=== PATIENT | female | born 1950 | race Caucasian/White ===

== ENCOUNTER 2022-02-11 00:34 | Outpatient (RCR) | payer MEDICARE, SELFPAY ==
--- OUTSIDE RECORDS SUMMARY | 2022-02-11 01:06 | XMS_ITS | Encounter Summary ---
:1950 Author Organization [facility] Address [address] [place] [address] Care Team Providers Name Role Phone Berkley Madrigal MD Primary Care Provider Unavailable Encounter Details Date Type Department Care Team Description 12/31/2021 Lab Requisition [facility] Blayne Shrestha for other Pathology & MD Sabino general examination Laboratory Medicine [address] [place] [address] [address] [place] [address] [place], [place] [id number] Social History Tobacco Use Types Packs/Day Years Used Date Never Assessed Sex Assigned at Date Recorded Not on file documented as of this encounter Plan of Treatment Not on filedocumented as of this encounter Procedures Procedure Name Priority Date/Time Associated Diagnosis Comme nts SURGICAL PATHOLOGY Today 12/30/2021 18:08 Resul ts for this EDT procedure are i n the results section. documented in this encounter Results SURGICAL PATHOLOGY (12/30/2021 18:08 EDT) Note to Patient The following [facility] MEDICAL pathology results have CENTER been interpreted by your LABORATORY pathologist and may be SERVICES available to you before your health provider has had the opportunity to review them. Please allow time for your provider to receive these results and explore management options, if applicable. Final Diagnosis A. 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 See comment and synoptic report. CENTER - Pathologic stage (AJCC 8th ed): pT3, pN2a LABORATORY - Margins: SERVICES - Tumor is present in soft tissue and vascular spaces at vascular pedicle margin. - Tumor close (2-3 mm) to radial margin, but negative . - Remainder of margins are negative for tumor. - Extensive lymphovascular invasion is present. - Two tumor soft tissue deposits are identified. - Loss of MLH1 and PMS2 and retained expression of MSH2 and MSH6 proteins, by immunohistochemistry. - Metastatic carcinoma involving five of twenty-two ly mph nodes (5/22). - Appendix with fibrous obliteration. 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 See comment. Diagnosis Comment Hydrotherapist slides of hay s case were reviewed at the gastrointestinal/liver intradepartmental consultation conference (AA, ). This case was reviewed in consultation by Dr. Keron Srinivasan who has expertise [facility] in hematopathology, and he donal cox with the diagnosis of small lymphocytic lymphoma. CENTER LABORATORY SERVICES RESULTS OF IMMUNOHISTOCHEMIC AL STAINING: Loss of MLH1 and PMS2 and retained expression of MSH2 and MSH6 proteins TISSUE SUBMITTED: Formalin f ixed paraffin embedded tissue block labelled ([id number]), block (A6) TUMOR TYPE: Invasive adenocarcinoma INTERPRETATION: The majority of cancers with loss of MLH1/PMS2 protein expression are associated with somatic changes rather than an inherited mutation (Craft syndrome). However, if additional testing t o rule out Craft syndrome is warranted in this individual, additional molecular testing (specifically MLH1 Promoter Methylation) can be ordered upon obtaining preauthorization or an advanced beneficiary notice. ANTIBODY (CLONE) (BLOCK): RESULT MLH1 (M1, [place]) (block A6): Loss of expression in t he tumor PMS2 (A16-4, [place]) (block A6): Loss of expression i n the tumor MSH2 ([id number], [place]) (block A6): Retained express ion in tumor MSH6 (SP93, [place]) (block A6): Retained expression i n tumor Internal controls: Adequate Immunoperoxidase stains were performed on this case to further characterize the lymphoid lesion. ANTIBODY(CLONE)(BLOCK):RESULT CD3 (SP7, [employer]) (A22): Highlights backgro und T cells CD20 (L26, [place]) (A22): Highlights neoplastic B isaac ls CD5 (SP19, [place]) (A22): P ositive in neoplastic B cells; Highlights background T cells LEF-1 (EP310, [employer]) ( A22): Positive in neoplastic B cells; Highlights background T cells Cyclin D1(SP4-R, [place]) (A22): Negative CD10 (SP67, [place]) (A22): Positive in germinal cente r BCL-2 Oncoprotein (124, [place]) (A22): Negative in germinal center; Highlights background lymphocytes NOTE: One or more of the re agents used in immunoperoxidase testing in this case may not have been cleared or approved by the U.S. Food and Drug Administration (FDA). The FDA has determined that such cl earance or approval is not n ecessary. These tests are used for clinical purposes. They should not be regarded as investigational or for research. These reagents' performance characteristics have been de termined by [facility] and/or by the referring laboratory. The positive and negative controls worked appropriately. If immunoperoxidase staining has been performed on alcoh ol fixed cytology specimens, which has not been fully validated, the assays should be interpreted with caution and correlated with clinical data. This laboratory is certified under the Clinical Laborato ry Improvement Amendments of 1988 (CLIA-88) as qualified to perform high complexity clinical laboratory testing. Attestation There was significant [facility] MEDICAL Electr onically resident/fellow CENTER signed by Ruddy gonzalez, involvement in the LABORATORY [place] [facility] on diagnostic evaluation of SERVICES 12/20 at 1222 this case. By the signature below, the attending physician certifies that they have personally conducted a gross and/or microscopic examination of the described specimens and rendered or confirmed the above diagnosis. Synoptic COLON AND RECTUM: Resection, Including Transanal Disk Excision of Rectal Neoplasms [facility] COLON AND RECTUM: RESECTION - All Specimens CENTER 8th Edition - Protocol posted: 07/18/2018 LABORATORY SERVICES SPECIMEN ?? Procedure: ?Right hemicolectomy TUMOR ?? Tumor Site: ?Right (ascending) colon ?? Histologic Type: ?Adenocarcinoma ? Histologic Type Comments: ?Mucinous feature s are present. ?? Histologic Grade: ?G2: Moderately differentiat ed ?? Tumor Size: ?Greatest dimension (Centimeters): 4.2 cm ?? Tumor Deposits: ?Present ? Number of Deposits: ?2 ?? Tumor Extension: ?Tu mor invades through the muscularis propria into pericolorectal tissue ?? Macroscopic Tumor Perforation: ?Not identified ?? Lymphovascular Invasion: ?Present ? : ?Small vessel lymphovascular invasion ?? Perineural Invasion: ?Not identified ?? Tumor Budding: ?Numb er of tumor buds in one ? hotspot? field (total number in area = 0.785 mm2): 1 ? : ?Low score (0-4) ?? Type of Polyp in Which Invasive Carcinoma Arose: ?None identified ?? Treatment Effect: ?No known presurgical therap y MARGINS ?? Margins: ? Proximal Margin: ?Uninvolved by invasive ca rcinoma ? Distal Margin: ?Uninvolved by invasive carc inoma ? Radial or Mesenteric Margin: ?Uninvolved by invasive carcinoma ? Distance of Tumor from Margin: ?2-3 mm ? Other Margin: ?Soft tissue at vascular pedi tammi ? Margin Status: ?Involved by invasive carcin tammie LYMPH NODES Number of Lymph Nodes Involved: ?5 Number of Lymph Nodes Examined: ?22 PATHOLOGIC STAGE CLASSIFICATION (pTNM, AJCC 8th Editio n) Primary Tumor (pT): ?pT3 Regional Lymph Nodes (pN): ?pN2a ADDITIONAL FINDINGS Additional Pathologic Findings: ?Adenoma(s) Clinical History Right colon lesion [facility] Gross Description A. [facility] Received in formalin chris d with proper patient identification (initials B, E) and right colon is a previously opened right colon comprised of terminal ileum (4.0 cm in length by 2.0 cm in diameter) CENTER , cecum and ascending colon (16.5 cm in length 6.5 cm in diameter), with 2 stapled margins. An appendix is present (4.5 cm in length by 0.5 cm in diameter). LABORATORY SERVICES The serosa is smooth and pin k-storey. No obvious perforations are identified. There is a 4.2 x 3.5 x 0.5 cm well-circumscribed, pink-storey mass located within the ascending colon, 1.2 cm from the ileocecal v alve. The mass is 5.0 cm fro m the proximal margin and 10.0 cm from the distal margin. Sectioning reveals the mass does not grossly appears to invade through the colon wall into the surrounding adipose t issue and is 5.0 cm from the nearest radial resection margin. The mass is 0.5 cm from the nearest serosal surface (inked blue). The mucosa around the distal end of the mass is dark kwon, consistent with previous tattoo. Located 1.0 cm distal the ma ss is a 0.5 x 0.5 x 0.3 cm pink-storey polyp. Polyp is confined to the mucosa, and does not involve the underlying colonic wall or surrounding adipose tissue. The remaining colo pennie mucosa is pink-storey with the usual folds. The wall thickness averages 0.2 cm. No additional lesions are identified. Sectioning through the surrounding adipose tissue reveals multiple pink-storey to kwon -white lymph nodes (ranging from 0.2 cm to 4.6 cm in greatest dimension). Multiple lymph nodes have a granular, kwon-white, grossly positive cut surface. The serosa of the appendix i s smooth and pink-storey with a large amount of attached mesoappendix. No perforations are identified. Sectioning reveals storey- white to yellow cut surfaces. The lumen averages 0. 1 cm in diameter. The wall t hickness averages 0.2 cm. No masses or lesions are identified. BLOCK BOYCE A1- proximal margin, en face A2- distal margin, en face A3- appendix A4- radial margin with adjacent positive lymph node, p erpendicular A5- vascular pedicle containing positive lymph node, e n face A6- mass in relation to serosa A7-A8- mass at deepest point of invasion, with adjacent positive lymph nodes, bisected (orange indicates junction of tissues) A9-A10- additional sections of mass in relation to surrounding unremarkable mucosa A11- entire polyp distal to mass A12- ileocecal valve A13-A14- additional section of grossly positive lymph node from vascular pedicle, bisected A15-A16- additional section of grossly positive lymph node from radial margin, bisected A17- multiple lymph nodes, submitted intact A18- personnel representative grossly positive lymph node A19- personnel representative grossly positive lymph node A20- 1 lymph node, bisected A21- 4 lymph nodes, submitted intact A22- 1 lymph node, bisected A23- 1 lymph node, bisected A24- 4 lymph nodes, submitted intact A25- 4 lymph nodes, submitted intact A26- 2 lymph nodes, submitted intact A27- 2 lymph nodes, submitted intact FACUNDO MONROY(ASCP) 01/03/2022 14:39 Resident/Fellow: Servando Barragan MD [facility] SERVICES Performing Lab [facility] Scanned Images [facility] Specimen Tissue - Entire sigmoid colon (body stru cture) Performing Organization Address City/State/ZIP Code Phon e Number [facility] [address] [place] [address] SERVICES documented in this encounter Visit Diagnoses Diagnosis Encounter for other general examination documented in this encounter Care Teams Clay Digger Relationship Specialty Start Date End Date Berkley Madrigal MD PCP - General 01/16/09 documented as of this encounter
--- OUTSIDE RECORDS SUMMARY | 2022-02-11 01:06 | XMS_ITS | Encounter Summary ---
:1950 Author Organization [facility] Address [address] [place] [address] Care Team Providers Name Role Phone Berkley Madrigal MD Primary Care Provider Unavailable Encounter Details Date Type Department Care Team Description 11/26/2021 Lab Requisition [facility] Outr Resulting Lab, Pathology & Laboratory Provider [facility] [address], [place] [id number] Social History Tobacco Use Types Packs/Day Years Used Date Never Assessed Sex Assigned at Date Recorded Not on file documented as of this encounter Plan of Treatment Not on filedocumented as of this encounter Procedures Procedure Name Priority Date/Time Associated Comments Diagnosis SPEP, INCLUDES Today 11/26/2021 11:20 Results f or this QUANTITATION OF EDT procedure ar e in MONOCLONAL SPIKE the results PERFORMABLE section. SPEP, INCLUDES Routine 11/26/2021 11:20 Results f or this QUANTITATION OF EDT procedure ar e in MONOCLONAL SPIKE the results section. PROTEIN, TOTAL Today 11/26/2021 11:20 EDT HAPTOGLOBIN Routine 11/26/2021 11:20 Results for this EDT procedure are i n the results section. documented in this encounter Results (ABNORMAL) SPEP, INCLUDES QUANTITATION OF MONOCLONAL SPIKE PERFORMABLE (11/26/2021 11:20 EDT) Albumin % 65.2 55.8 - 66.1 % [facility]OR[facility] SERVICES Albumin g/dL 4.0 3.6 - 5.2 g/dL [facility] LABOR[facility] SERVICES Alpha-1 % 4.8 2.9 - 4.9 % [facility] LABOR[facility] SERVICES Alpha-1 g/dL 0.30 0.15 - 0.40 [facility] g/dL LABORATORY SERVICES Alpha-2 % 12.1 (H) 7.1 - 11.8 % [facility] LABORATORY SERVICES Alpha-2 g/dL 0.80 0.50 - 1.00 [facility] g/dL LABORATORY SERVICES Beta % 11.3 8.4 - 13.1 % [facility] LABORATORY SERVICES Beta g/dL 0.70 0.60 - 1.20 [facility] g/dL LABORATORY SERVICES Gamma % 6.6 (L) 11.1 - 18.8 % [facility] LABORATORY SERVICES Gamma g/dL 0.40 (L) 0.60 - 1.60 [facility] g/dL LABORATORY SERVICES SPEP Comment No apparent [facility] monoclonal protein LABORATORY SERVICES seen on serum electrophoresisComm ent: See scanned/supplementa ry report. Total Protein 6.2 (L) 6.3 - 8.2 g/dL [facility] LABORAT[facility] SERVICES Specimen Blood - Venous blood (substance) Narrative This result has an attachment that is no t available. Performing Organization Address City/State/ZIP Code Phon e Number [facility] [address] [place] [address] SERVICES PROTEIN, TOTAL (11/26/2021 11:20 EDT) Specimen Blood - Venous blood (substance) Performing Organization Address City/State/ZIP Code Phon e Number [facility] [address] [place] [address] SERVICES HAPTOGLOBIN (11/26/2021 11:20 EDT) Pathologist Sig nature Haptoglobin 121 32 - 197 mg/dL [facility] LABORAT ORY SERVICES Specimen Blood - Venous blood (substance) Performing Organization Address City/State/ZIP Code Phon e Number [facility] [address] [place] [address] SERVICES documented in this encounter Visit Diagnoses Not on filedocumented in this encounter Care Teams Insurance Agent Relationship Specialty Start Date End Date Berkley Madrigal MD PCP - General 01/16/09 documented as of this encounter
--- OUTSIDE RECORDS SUMMARY | 2022-02-11 01:06 | XMS_ITS | Encounter Summary ---
:1950 Author Organization [facility] Address [address] [place] [id number] Care Team Providers Name Role Phone Berkley Madrigal MD Primary Care Provider Unavailable Encounter Details Date Type Department Care Team Description 05/11/2019 Lab Requisition [facility] Unknown, Provider, Pathology & Laboratory [facility] [address] [place] [address] [place] [address] Social History Tobacco Use Types Packs/Day Years Used Date Never Assessed Sex Assigned at Date Recorded Not on file documented as of this encounter Plan of Treatment Not on filedocumented as of this encounter Procedures Procedure Name Priority Date/Time Associated Diagnosis Comme nts FECAL BACTERIAL Routine 05/11/2019 12:17 Results for this PATHOGENS BY PCR EST procedure a re in the results section. OVA/PARASITE EXAM Routine 05/11/2019 12:17 Result s for this EST procedure are i n the results section. documented in this encounter Results OVA/PARASITE EXAM (05/11/2019 12:17 EST) Pathologist Sig nature Parasite No ova and parasites [facility] seen. LABORATORY SERVICES Specimen Feces - Feces Narrative [facility] LABORATORY SERVICES - 05/13/2019 13:44 EST (If Cryptosporidium, Cyclospora, or Micr osporidium are suspected, specific tests must be requested.) Single negative specimen does not rule out the possibility of a parasitic infection. Performing Organization Address City/State/ZIP Code Phon e Number [facility] LABORATORY [address] [place] [address] SERVICES FECAL BACTERIAL PATHOGENS BY PCR (05/11/2019 12:17 EST) Pathologist Sig nature Salmonella PCR Negative Negative [facility] LABORATORY SERVICES Shigella/Enteroinvasive Negative Negative [facility] R E. coli LABORATORY SERVICES HN LAB CAMPYLOBACTER PCR Negative Negative [facility] ER LABORATORY SERVICES Shiga Toxin PCR Negative Negative [facility] LABORATORY SERVICES Specimen Feces - Feces Performing Organization Address City/State/ZIP Code Phon e Number [facility] LABORATORY [address] [place] [address] SERVICES documented in this encounter Visit Diagnoses Not on filedocumented in this encounter Care Teams Graphite Grinder Relationship Specialty Start Date End Date Berkley Madrigal MD PCP - General 01/16/09 documented as of this encounter
--- OUTSIDE RECORDS SUMMARY | 2022-02-11 01:06 | XMS_ITS | Encounter Summary ---
:1950 Author Organization [facility] Address [address] [place] [address] Care Team Providers Name Role Phone Berkley Madrigal MD Primary Care Provider Unavailable Encounter Details Date Type Department Care Team Description 07/18/2019 Lab Requisition [facility] Unknown, Provider, Pathology & Laboratory [facility] [address] [place] [address] [place] [address] Social History Tobacco Use Types Packs/Day Years Used Date Never Assessed Sex Assigned at Date Recorded Not on file documented as of this encounter Plan of Treatment Not on filedocumented as of this encounter Procedures Procedure Name Priority Date/Time Associated Diagnosis Comme nts FECAL BACTERIAL Routine 07/18/2019 12:27 Results for this PATHOGENS BY PCR EST procedure a re in the results section. OVA/PARASITE EXAM Routine 07/18/2019 12:27 Result s for this EST procedure are i n the results section. documented in this encounter Results FECAL BACTERIAL PATHOGENS BY PCR (07/18/2019 12:27 EST) Pathologist Sig nature Salmonella PCR Negative Negative [facility] LABORATORY SERVICES Shigella/Enteroinvasive Negative Negative [facility] E. coli LAB[facility]ORY SERVICES HN LAB CAMPYLOBACTER PCR Negative Negative [facility] ER LABORATORY SERVICES Shiga Toxin PCR Negative Negative [facility] LABORATORY SERVICES Specimen Feces - Specimen from rectum (specimen) Performing Organization Address City/State/ZIP Code Phon e Number [facility] [address] [place] [address] SERVICES OVA/PARASITE EXAM (07/18/2019 12:27 EST) Pathologist Sig nature Parasite No ova and parasites [facility] seen. LABORATORY SERVICES Specimen Feces - Specimen from rectum (specimen) Narrative [facility] LABORATORY SERVICES - 07/19/2019 11:23 EST (If Cryptosporidium, Cyclospora, or Micr osporidium are suspected, specific tests must be requested.) Single negative specimen does not rule out the possibility of a parasitic infection. Performing Organization Address City/State/ZIP Code Phon e Number [facility] [address] [place] [address] SERVICES documented in this encounter Visit Diagnoses Not on filedocumented in this encounter Care Teams Personnel Generalist Manager Relationship Specialty Start Date End Date Berkley Madrigal MD PCP - General 01/16/09 documented as of this encounter
--- OUTSIDE RECORDS SUMMARY | 2022-02-11 01:06 | XMS_ITS | Encounter Summary ---
:[address] [facility] Address [address] [place] [address] Care Team Providers Name Role Phone Berkley Madrigal MD Primary Care Provider Unavailable Encounter Details Date Type Department Care Team Description 05/17/2021 Lab Requisition [facility] Outr Resulting Lab, Pathology & Laboratory Provider [facility] [address] [place] [id number] Social History Tobacco Use Types Packs/Day Years Used Date Never Assessed Sex Assigned at Date Recorded Not on file documented as of this encounter Plan of Treatment Not on filedocumented as of this encounter Procedures Procedure Name Priority Date/Time Associated Diagnosis Comme nts FECAL BACTERIAL Routine 05/17/2021 10:53 Results for this PATHOGENS BY PCR EST procedure a re in the results section. OVA/PARASITE EXAM Routine 05/17/2021 10:53 Result s for this EST procedure are i n the results section. documented in this encounter Results FECAL BACTERIAL PATHOGENS BY PCR (05/17/2021 10:53 EST) Pathologist Sig nature Salmonella PCR Negative Negative [facility] LABORATORY SERVICES Shigella/Enteroinvasive Negative Negative [facility] SERVICES HN LAB CAMPYLOBACTER PCR Negative Negative [facility] ER LABORATORY SERVICES Shiga Toxin PCR Negative Negative [facility] LABORATORY SERVICES Specimen Feces - Specimen from rectum (specimen) Performing Organization Address City/State/ZIP Code Phon e Number [facility] LAB[facility] [address] [place] [address] SERVICES OVA/PARASITE EXAM (05/17/2021 10:53 EST) Pathologist Sig nature Parasite No ova and parasites [facility] seen. LABORATORY SERVICES Specimen Feces - Specimen from rectum (specimen) Narrative [facility] LABORATORY SERVICES - 05/19/2021 13:38 EST (If Cryptosporidium, Cyclospora, or Micr osporidium are suspected, specific tests must be requested.) Single negative specimen does not rule out the possibility of a parasitic infection. Performing Organization Address City/State/ZIP Code Phon e Number [facility] [address] [place] [address] SERVICES documented in this encounter Visit Diagnoses Not on filedocumented in this encounter Care Teams Wood Miller Relationship Specialty Start Date End Date Berkley Madrigal MD PCP - General 01/16/09 documented as of this encounter
--- OUTSIDE RECORDS SUMMARY | 2022-02-11 01:06 | XMS_ITS | Encounter Summary ---
:1950 Author Organization [facility] Address [address] [place] [address] Care Team Providers Name Role Phone Berkley Madrigal MD Primary Care Provider Unavailable Encounter Details Date Type Department Care Team Description 12/20/2021 Lab Requisition [facility] Blayne Shrestha for other Pathology & MD Sabino general examination Laboratory Medicine [address] [place] [address] [address] [place] [address] [place], [place] [id number] Social History Tobacco Use Types Packs/Day Years Used Date Never Assessed Sex Assigned at Date Recorded Not on file documented as of this encounter Plan of Treatment Not on filedocumented as of this encounter Procedures Procedure Name Priority Date/Time Associated Diagnosis Comme nts SURGICAL PATHOLOGY Today 12/20/2021 12:01 Resul ts for this EDT procedure are i n the results section. documented in this encounter Results SURGICAL PATHOLOGY (12/20/2021 12:01 EDT) Note to Patient The following [facility] MEDICAL pathology results have CENTER been interpreted by LABORATORY your pathologist and SERVICES may be available to you before your health provider has had the opportunity to review them. Please allow time for your provider to receive these results and explore management options, if applicable. Final Diagnosis A. COLON, RIGHT, LESION, BIOPSY: [facility] EDICAL - At least intramucosal colo rectal adenocarcinoma, suspicious for underlying invasion. CENTER - Deeper sections x3 examined. LABORATORY - See comment. SERVICES Diagnosis Comment The superficial nature of th e biopsy precludes further assessment for depth of invasion. [facility] slides of thi s case were reviewed at the gastrointestinal/liver intradepartmental consultation conference. (RW) LABORATORY SERVICES Attestation There was significant [facility] MEDICAL Electr onically resident/fellow CENTER signed by Ab yair Cedillo involvement in the LABORATORY Valdez Ruby on diagnostic evaluation SERVICES 12/24/19 22 at 0902 of this case. By the signature below, the attending physician certifies that they have personally conducted a gross and/or microscopic examination of the described specimens and rendered or confirmed the above diagnosis. Clinical History Abnormal imaging; right [facility] colon lesion CENTER LABORATORY SERVICES Gross Description A. [facility] MEDICAL Received in formalin chris d with proper patient identification (initials B, E) and A. Right colon lesion Bx are 4 storey-white tissues (0.3 x 0.2 x 0.1 cm to 0.1 x 0.1 by less than 0.1 cm). Entirely lorenzo CENTER bmitted in A1. Please note the smaller tissues m ay not survive processing. LABORATORY SERVICES CELESTE WARREN 12/21/2021 8:36 Resident/Fellow: Shazia Dailey MD [facility] LABORATORY SERVICES Performing Lab [facility] LABORATORY SERVICES Scanned Images [facility] LABORATORY SERVICES Specimen Tissue - Entire right colon (body struct ure) Performing Organization Address City/State/ZIP Code Phon e Number [facility] LABOR[facility]ORY [address] [place] [address] SERVICES documented in this encounter Visit Diagnoses Diagnosis Encounter for other general examination documented in this encounter Care Teams Industrial Waste Inspector Relationship Specialty Start Date End Date Berkley Madrigal MD PCP - General 01/16/09 documented as of this encounter
--- OUTSIDE RECORDS SUMMARY | 2022-02-11 01:06 | XMS_ITS | Encounter Summary ---
:1950 Author Organization [facility] Address [address] [place] [address] Care Team Providers Name Role Phone Berkley Madrigal MD Primary Care Provider Unavailable Encounter Details Date Type Department Care Team Description 06/28/2021 Lab Requisition [facility] Blayne Shrestha for other Pathology & MD Sabino general examination Laboratory Medicine [address] [place] [address] [address] [place] [address] [place], [place] [id number] Social History Tobacco Use Types Packs/Day Years Used Date Never Assessed Sex Assigned at Date Recorded Not on file documented as of this encounter Plan of Treatment Not on filedocumented as of this encounter Procedures Procedure Name Priority Date/Time Associated Diagnosis Comme nts SURGICAL PATHOLOGY Today 06/28/2021 14:24 Resul ts for this EST procedure are i n the results section. documented in this encounter Results SURGICAL PATHOLOGY (06/28/2021 14:24 EST) Note to Patient The following [facility] MEDICAL pathology results CENTER have been interpreted LABORATORY by your pathologist SERVICES and may be available to you before your health provider has had the opportunity to review them. Please allow time for your provider to receive these results and explore management options, if applicable. Final Diagnosis A. STOMACH, ANTRUM, BIOPSY: [facility] - Antral-type mucosa with no significant diagnostic ab normality. CENTER LABORATORY B. COLON, RIGHT, RANDOM, BIOPSY: SERVICES - Colonic mucosa with no significant pathologic abnorm ality. C. COLON, LEFT, RANDOM, BIOPSY: - Colonic mucosa with no significant pathologic abnorm ality. Attestation By the signature [facility] MEDICAL Electronica lly below, the attending CENTER signed by Toni physician certifies LABORATORY Sánchez Kellogg MD on that they have 1) SERVICES 06/29/2021 a t 1758 personally conducted a gross and/or microscopic examination of the described specimen(s), and/or personally interpreted the results of laboratory testing of the described specimen(s), and 2) personally rendered or confirmed the above diagnosis. Clinical History Fecal occult blood [facility] MEDICAL positive, change of CENTER bowel habit; EGD; LABORATORY normal; rectocele, SERVICES diverticulosis Gross Description A. [facility] MEDICAL Received in formalin chris d with proper patient identification (initials B, E) and A. Gastric antrum Bx is a storey-brown tissue (0.5 x 0.3 x 0.2 cm). Entirely submitted in A1. CENTER LABORATORY B. SERVICES Received in formalin chris d with proper patient identification (initials B, E) and B. Right colon random Bx are 2 storey-brown tissues (0.1 x 0.1 x 0.1 cm and 0.3 x 0.2 x 0.1 cm). Entirely submitted in B1. C. Received in formalin chris d with proper patient identification (initials B, E) and C. Left colon random Bx are 2 storey-brown tissues (0.3 x 0.2 x 0.2 cm and 0.4 x 0.2 x 0.1 cm). Entirely submitted in C1. FACUNDO MILAN([facility]) 06/29/2021 8:27 Performing Lab [facility] Scanned Images [facility] SERVICES Specimen Tissue - Entire left colon (body structu re) Tissue specimen (specimen) - Entire righ t colon (body structure) Tissue specimen (specimen) - Entire left colon (body structure) Performing Organization Address City/State/ZIP Code Phon e Number [facility] [address] [place] [address] SERVICES documented in this encounter Visit Diagnoses Diagnosis Encounter for other general examination documented in this encounter Care Teams Professor Criminal Justice Relationship Specialty Start Date End Date Berkley Madrigal MD PCP - General 01/16/09 documented as of this encounter
--- OUTSIDE RECORDS SUMMARY | 2022-02-11 01:06 | XMS_ITS | Encounter Summary ---
:1950 Author Organization [facility] Address [address] [place] [address] Care Team Providers Name Role Phone Berkley Madrigal MD Primary Care Provider Unavailable Encounter Details Date Type Department Care Team Description 12/20/2021 Lab Requisition [facility] Outr Resulting Lab, Pathology & Laboratory Provider [facility] [address] [place] [address] Social History Tobacco Use Types Packs/Day Years Used Date Never Assessed Sex Assigned at Date Recorded Not on file documented as of this encounter Plan of Treatment Not on filedocumented as of this encounter Procedures Procedure Name Priority Date/Time Associated Diagnosis Comme nts CEA Routine 12/20/2021 14:39 EDT Results for this procedure are i n the results section . documented in this encounter Results CEA (12/20/2021 14:39 EDT) CEA 281.2 See Note [facility] Comment: ng/mL LABORATORY % Distribution of CEA (ng/mL): SERVICES ??0.0 - 2.5 in 98.2% of Nonsmokers and 87.3% of Smoke rs ??2.6 - 5 in 1.8% of Nonsmokers and 8% of Smokers ??5.1 - 10.1 in 4.7% of Smokers NOTE: Serum CEA concentration shou ld not be interpeted as absolute evidence for the presence or absence of malignant disease. ?? Assayed on Siemens ADVIA Bobby taur XPT using chemiluminescent technology. ??Values obtained by different assay methods cannot be used interchangeably. Specimen Blood - Venous blood (substance) Performing Organization Address City/State/ZIP Code Phon e Number [facility]ORY [address] [place] [address] SERVICES documented in this encounter Visit Diagnoses Not on filedocumented in this encounter Care Teams Analytical Data Scientist Relationship Specialty Start Date End Date Berkley Madrigal MD PCP - General 01/16/09 documented as of this encounter
--- OUTSIDE RECORDS SUMMARY | 2022-02-11 01:06 | XMS_ITS | Clinical Summary ---
:1950 Author Organization [facility] Address [address] [place] [address] Care Team Providers Name Role Phone Mook Coffey DO Primary Care Provider Allergies Active Allergy Reactions Severity Noted Date Comments Atorvastatin Other (See Comments) 08/04/2016 Muscle cramps Metformin Diarrhea 11/25/2021 Penicillins Rash 05/08/2015 Medications Medication Sig Dispensed Refills Start Date End Date Status multivitamin capsule Take 1 capsule by 0 Active mouth daily. cholecalciferol, Take 2,000 mg by 0 Active Vitamin D3, 50 mcg mouth daily. (2,000 unit) Capsule melatonin 3 mg Tab Take 3 mg by 0 Active mouth nightly as needed. Green Tea Extract 500 Take 500 mg by 0 Active mg Cap mouth daily. glucosamine sulfate 500 Take 500 mg by 0 Active mg Tablet mouth daily. apixaban (Eliquis) 2.5 Take 2.5 mg by 0 Active mg Tablet mouth 2 times daily. nystatin (MYCOSTATIN) Apply topically 2 60 g 1 07/13/2018 Active Powder times daily. cyclobenzaprine 1 08/08/2018 Act yuri (FLEXERIL) 10 mg Tablet magnesium 250 mg Tablet Take 133 mg by 0 Active mouth. temazepam (Restoril) 15 Take 15 mg by 0 Active mg Capsule mouth nightly as needed for Sleep. Ventolin HFA 90 as needed. 0 11/30/2020 Ac tive mcg/actuation HFA Aerosol Inhaler diphenoxylate-atropine 4 times daily as 0 Active (Lomotil) 2.5-0.025 mg needed. Tablet acetaminophen (TYLENOL) Take 650 mg by 0 Active 650 mg Tablet Sustained mouth every 8 Release hours as needed for Pain. Do not exceed 6 tabs in 24 hours calcium carbonate Take 1 tablet by 0 Active (Tums) 200 mg calcium mouth daily. (500 mg) Tablet, Chewable ferrous sulfate 325 mg Take 325 mg by 0 Active (65 mg iron) Tablet mouth daily. psyllium husk, with Take by mouth. 0 Active sugar, (Metamucil Free) 3 gram/7 gram Powder Active Problems Problem Noted Date Pessary maintenance 07/01/2019 Overview: # 3 Ring with support Needs removal and cleaning q 4-6 mos Urethral sphincter deficiency, intrinsic (ISD) 018 Pelvic organ prolapse quantification stage 3 cystocele 11/16/2017 Mixed incontinence 09/19/2017 Seborrheic keratosis 08/21/2017 Cerebral infarction 09/02/2016 Overview: Bilateral MCA territory left>right On anticoagulant therapy 09/02/2016 Pulmonary embolism 07/14/2016 AK (actinic keratosis) 01/30/2015 History of SCC (squamous cell carcinoma) of skin 01/30 Macular pucker, right eye 08/19/2012 Horseshoe retinal tear, right eye 08/19/2012 SVT (supraventricular tachycardia) 08/29/2011 GERD (gastroesophageal reflux disease) 08/29/2011 Diabetes mellitus 08/29/2011 CLL (chronic lymphocytic leukemia) 12/20/2008 Overview: Dx 12/28 w/ WBC 27k P-53, CD38 and zap -70 negative. Cytogenetics 13 deletion (favorable prog nosis) Observation only Pneumovax 2014 Resolved Problems Problem Noted Date Resolved Date Verruca vulgaris 03/08/2013 02/23/2015 Urinary incontinence, overflow 08/29/2011 9 Encounters Date Type Specialty Care Team Description 02/11/2022 Infusion Hematology and Oncology 02/09/2022 Ancillary Radiology Ángel Fischer MD 02/09/2022 Telephone Hematology and Christianthejerman, Abnormal Lab Oncology Navneet Isaac RN (Critical ) 02/08/2022 Telephone Hematology and Jenise, Questions Oncology Navneet Isaac RN 02/08/2022 External Results Provider, Scanning 02/04/2022 Telephone Hematology and Ángel Fischer Oncology MD Dominik 02/02/2022 Hospital Encounter Lab 01/31/2022 Orders Only Hematology and Ángel Fischer Malignant neoplasm Oncology MD Dominik of ascending co kendra 01/28/2022 Telephone Hematology and Christianthejerman, Questions (Re Oncology Navneet Isaac RN Bivalent vac cine) 01/27/2022 Hospital Encounter Hematology and Other i mara deficiency anemia; Oncology Malignant neopl asm of ascending colon; Chronic fatigue 01/27/2022 Office Visit Hematology and Ángel Fischer Malignant neoplasm of ascending colon; Oncology MD Dominik Chronic fatigue ; Other iron defi ciency anemia 01/17/2022 Office Visit Ophthalmology Venkata Page, Macular ho le, right eye [s/p PPV, MP, gas [July 2016] with CBC]; 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 [s/p PPV, ERM and ILM peel, SF6 01/05/17 with NNB] 01/13/2022 Hospital Encounter Lab 01/13/2022 External Results Provider, Scanning 01/10/2022 Ancillary Radiology Mook Coffey Procedure S, DO 01/06/2022 Orders Only Hematology and Ángel Fischer Oncology MD Dominik 01/05/2022 Transcribe Orders Primary Care Blayne Shrestha nt neoplasm PMD of colon, unspecified par t of colon 12/15/2021 Ancillary Radiology Ángel Fischer Procedure MD Dominik 12/02/2021 Telephone Hematology and Nilam So, Oncology [employer] 11/25/2021 Office Visit Hematology and Nilam So, CLL (chron ic lymphocytic leukemia); Oncology [employer] Anemia, unspeci fied type 11/23/2021 Telephone Hematology and Nilam So, Abnormal L abs Oncology [employer] from Last 3 Months Family History Medical History Relation Comments Macular Degeneration Brother Strabismus Brother Cancer Father lung Glaucoma Father borderline glaucoma Diabetes Maternal Grandmother Cataracts Mother Diabetes Mother Hypertension Mother Macular Degeneration Mother Thyroid Disease Mother Diabetes Paternal Grandmother Amblyopia Neg Hx Heart Disease Neg Hx Retinal Detachment Neg Hx Relation Status Comments Brother Alive Father Maternal Grandmother Mother Paternal Grandmother Social History Tobacco Use Types Packs/Day Years Used Date Never Smoker Smokeless Tobacco: Never Used Alcohol Use Standard Drinks/Week Comments Yes 0 (1 standard drink = 0.6 oz pure alcoho l) Very rare Alcohol Habits Answer Date Recorded How often do you have a drink containing alcohol? Not asked How many drinks containing alcohol do you have on a typical Not asked day when you are drinking? How often do you have six or more drinks on one occasion? No t asked Comment: Very rare 09/02/2016 Financial Resource Strain Answer Date Recorded How hard is it for you to pay for the very basics like Not v baldo hard 01/20/2022 food, housing, medical care, and heating? Food Insecurity Answer Date Recorded Within the past 12 months, you worried that your food would Never true 01/20/2022 run out before you got money to buy more. Within the past 12 months, the food you bought just didn't N ever true 01/20/2022 last and you didn't have money to get more. Transportation Needs Answer Date Recorded In the past 12 months, has lack of transportation kept you f rom No 01/20/2022 medical appointments or from getting medications? In the past 12 months, has lack of transportation kept you f rom No 01/20/2022 meetings, work, or getting things needed for daily living? Housing Stability Answer Date Recorded In the last 12 months, was there a time when you were not ab le No 01/20/2022 to pay the mortgage or rent on time? In the last 12 months, how many places have you lived? 1 01/20/2022 In the last 12 months, was there a time when you did not hav e a No 01/20/[address] or slept in a longterm (including now)? Sex Assigned at Date Recorded Female 12/24/2020 12:51 PM EDT Last Filed Vital Signs Vital Sign Reading Time Taken Comments Blood Pressure 136/59 01/27/2022 10:55 AM EDT Pulse 66 01/27/2022 10:55 AM EDT Temperature 36 ??C (96.8 ??F) 01/27/2022 10:55 AM EDT Respiratory Rate 17 01/27/2022 10:55 AM EDT Oxygen Saturation 98% 01/27/2022 10:55 AM EDT Inhaled Oxygen Concentration - - Weight 69.6 kg (153 lb 7 oz) 01/27/2022 10:55 AM EDT Height 163.3 cm (5' 4.29) 01/27/2022 10:55 AM EDT Body Mass Index 26.1 01/27/2022 10:55 AM EDT Plan of Treatment Upcoming Encounters Date Type Specialty Care Team Description 02/11/2022 Scheduled View Only Hematology and Ángel Fischer Oncology [facility] [place] [id number] (Wo rk) 02/11/2022 TH Visit (TeleHealth) Hematology Ángel Kimbrough Oncology [facility] [place], [place] [address] (Wo rk) 02/11/2022 Infusion Hematology and Oncology 02/11/2022 Office Visit Hematology and Jazzy Armendariz R [facility] [place] [id number] (Wo rk) 02/22/2022 TH Visit (TeleHealth) Hematology and Yaquelin Celis Oncology E, [facility] [place], [place] [address] (Wo rk) 02/25/2022 Office Visit Hematology Ángel Kimbrough Oncology [facility] [place], [place] [address] (Wo rk) 02/25/2022 Infusion Hematology and Oncology 03/10/2022 Scheduled View Only Obstetrics and Nurse, Julian COLEMAN, carving machine operator 03/10/2022 Office Visit Obstetrics and Shazia Whitley Gynecology [employer] [facility] [place], [place] [address] (Wo rk) 03/11/2022 Office Visit Hematology and Ángel Fischer MD [facility] [place] [address] On[address] Joseph[address] [facility]Y [place], [place] [address] 03/11/2022 Infusion Hematology and Oncology 03/25/2022 Office Visit Hematology and Alyssa Joseph, Oncology [address] MEDICAL ONCOL[facility]Y [place], [place] [phone] (Wo rk) 03/25/2022 Infusion Hematology and Oncology 03/31/2022 Office Visit Hematology and Alan Livingston M D [facility] DR HEMATOLOGY/[place] [address] [facility] [address] 04/08/2022 Office Visit Hematology and Ángel Fischer MD [facility] [place] [address] On[address] MEDICAL ONCOL[facility]Y [place], [place] [id number] 04/08/2022 Infusion Hematology and Oncology Health Maintenance Due Date Last Done Comments Covid-19 Vaccine (#1) 1954 Pneumoccocal Vaccine: 65+ (1 - 1955 PCV) Hepatitis C Screening 1967 Tdap adult 1968 Tetanus vaccine 1968 Zoster vaccine (1 of 2) 1968 Breast Cancer Share Decision 1989 Needed Colonoscopy 1994 Breast Cancer screening 1999 Advance Directive 2004 Bone Density Scan 2014 DM Hemoglobin A1c 05/01/2017 01/30/2017, 02/01/2016, 12/21/2015, Additional history exists DM Urine Microalbumin yearly 03/01/2018 03/01/2017, 016 Influenza (Flu) vaccine (1 of - 01/20/2022 Influenza standard series) Lipid Screening 03/01/2022 03/01/2017, 12/21/2015 DM Opthalmology Exam 01/17/2023 01/17/2022, 01/31/2020, 07/13/2018, Additional history exists DM Creatinine yearly 01/27/2023 01/27/2022, 11/23/2021, 05/27/2021, Additional history exists Procedures Procedure Name Priority Date/Time Associated Comments Diagnosis FILM LIBRARY STORAGE Routine 02/09/2022 12:00 Res ults for this ONLY CT CHEST ABDOMEN AM EDT proced ure are in PELVIS the results section. LAB SCAN 02/09/2022 12:00 Results for this AM EDT procedure are i n the results section. LAB SCAN 02/09/2022 12:00 Results for this AM EDT procedure are i n the results section. LAB SCAN 02/09/2022 12:00 Results for this AM EDT procedure are i n the results section. CT SCAN (SCAN) 02/09/2022 12:00 Results f or this AM EDT procedure are i n the results section. SURGICAL PATHOLOGY Routine 02/08/2022 Results f or this SCAN procedure are i n the results section. SURGICAL PATHOLOGY Routine 02/02/2022 3:04 PM Res ults for this REPORT EDT procedure are i n the results section. SCAN, PERIPHERAL BLOOD Routine 01/27/2022 12:16 R esults for this PM EDT procedure are i n the results section. DIFFERENTIAL, Routine 01/27/2022 12:16 Malignant neoplasm Resu lts for this AUTOMATED PM EDT of ascending colon procedure are in the results section. HEMOGRAM Routine 01/27/2022 12:16 Malignant neoplasm Resul ts for this PM EDT of ascending colon procedure are in the results section. HC CBC,PLT & AUTO DIFF Routine 01/27/2022 12:16 Malignant neop lasm PM EDT of ascending colon COMPREHENSIVE Routine 01/27/2022 12:16 Malignant neoplasm Resu lts for this METABOLIC PANEL PM EDT of ascending colon proced ure are in (NON-FASTING) the results section. HC CARCINO-EMBRYONIC Routine 01/27/2022 12:16 Malignant neopla sm Results for this AG ASSAY PM EDT of ascending colon procedure are in the results section. DPYD PCR Routine 01/27/2022 12:16 Malignant neoplasm Resul ts for this PM EDT of ascending colon procedure are in the results section. HC THYROID STIMULATING Routine 01/27/2022 12:16 Malignant neop lasm Results for this HORMONE, SERUM PM EDT of ascending col on procedure are in Chronic fatigue the results section. HC IRON BINDING Routine 01/27/2022 12:16 Other iron Results for this CAPACITY PM EDT deficiency anemia procedure are in the results section. HC FERRITIN, SERUM Routine 01/27/2022 12:16 Other iron Resul ts for this PM EDT deficiency anemia procedure are in the results section. OCT RETINA - OU - BOTH Routine 01/17/2022 5:13 PM Macular hole , right Results for this EYES EDT eye [s/p PPV, MP, procedure are in gas [July 2016] the results with CBC] section. 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 [s/p PPV, ERM and ILM peel, SF6 01/05/17 with NNB] SURGICAL PATHOLOGY Routine 01/13/2022 10:30 Resul ts for this REPORT AM EDT procedure are i n the results section. SURGICAL PATHOLOGY Routine 01/13/2022 Results f or this SCAN procedure are i n the results section. FILM LIBRARY STORAGE Routine 01/10/2022 12:00 Res ults for this ONLY CT CHEST AM EDT procedure are in the results section. SURGICAL PATHOLOGY 01/05/2022 12:00 Resul ts for this SCAN AM EDT procedure are i n the results section. CT SCAN (SCAN) 01/05/2022 12:00 Results f or this AM EDT procedure are i n the results section. FILM LIBRARY STORAGE Routine 12/15/2021 12:00 Res ults for this ONLY CT ABDOMEN AND AM EDT procedur e are in PELVIS the results section. LAB SCAN 11/30/2021 12:00 Results for this AM EDT procedure are i n the results section. LAB SCAN 11/30/2021 12:00 Results for this AM EDT procedure are i n the results section. LAB SCAN 11/28/2021 12:00 Results for this AM EDT procedure are i n the results section. PROTEIN Routine 11/26/2021 Results for thi s ELECTROPHORESIS, SERUM proce dure are in the results section. FOLATE, SERUM Routine 11/26/2021 Results for th is procedure are i n the results section. CBC (WITH DIFF) Routine 11/26/2021 Results for this procedure are i n the results section. COMPREHENSIVE Routine 11/23/2021 Results for th is METABOLIC PANEL procedure ar e in (NON-FASTING) the results section. CBC (WITH DIFF) Routine 11/23/2021 Results for this procedure are i n the results section. LAB SCAN 11/23/2021 12:00 Results for this AM EDT procedure are i n the results section. LAB SCAN 11/23/2021 12:00 Results for this AM EDT procedure are i n the results section. from Last 3 Months Results SCAN DOC: CT SCAN (02/09/2022 12:00 AM EDT)Only the most recent of2 results within the time period is included. Narrative 02/09/2022 12:00 AM EDT This result has an attachment that is no t available. Ordered by an unspecified provider. Scanning Provider MEDIA MGR SCAN EXT ORDR/RSLT SCAN DOC: LAB (02/09/2022 12:00 AM EDT)Only the most recent of8 resultswithin the time period is included. Narrative 02/09/2022 12:00 AM EDT This result has an attachment that is no t available. Ordered by an unspecified provider. Scanning Provider MEDIA MGR SCAN EXT ORDR/RSLT Film Library- Storage Only CT Chest Abdomen Pelvis (02/09/2022 12:00 AM EDT) Specimen (Source) Anatomical Location Collection Method / Collectio n Time Received Time / Laterality Volume Narrative RAD - 02/10/2022 3:33 PM EDT This exam is auto-finalizing. It's purpo se is for storage only. Ángel Fischer MD IMG FILM LIBRARY ORDERABLES Performing Organization Address City/State/ZIP Code Phon e Number [facility] [place], [place] Scan Doc: Surgical Pathology (02/08/2022)Only the most recent of3 resultswithin the time period is included. Narrative This result has an attachment that is no t available. Ángel Fischer MD MEDIA MGR SCAN EXT ORDR/RSLT Surgical Pathology Report (02/02/2022 3:04 PM EDT)Only the most recent of2 resultswithin the time period is included. Component Value Ref Test Analysis Performed At [facility] gist Range Method Time Signature Surgical [id number] ? Location: [facility] Pathology WAIMANALO Report The signing pathologist has (i) examined the relevant preparation(s) for the [facility] specimen(s) and (ii) rendered or confirmed the diagnosis(es) . HOSPITAL LABORATORY . ?Surgic al Pathology DIAGNOSIS CONSULTATION CASE Outside slide(s) labeled [id number], collection date 12/31/19 22. Right colon, hemicolectomy: Mucinous adenocarcinoma of ascending colon, pT3N2a, see syno ptic report. Electronically signed by: ?Linda Dietrich MD Verified: ??02/10/2022 10:25 ??Pathologist Performed at: ??-[facility] Dept. [place], [place], [place] SYNOPTIC Specimen ? Procedure: ??Right hemicolectomy Tumor ? Tumor Site: ??Ascending colon ? Histologic Type: ??Mucinous adenocarcinoma ? Histologic Grade: ??G2, moderately differentiat ed ? Tumor Size: ??4.2 Centimeters (cm) ? Tumor Extent: ? ?Invades through muscularis propria into pericolorectal tissue ? Macroscopic Tumor Perforation: ??Not identified ? Lymphovascular Invasion: ??Small vessel - exten sive ? Perineural Invasion: ??Not identified ? Number of Tumor Buds: ??1 per 'hotspot' field ? Tumor Nazlini Score: ??Low (0-4) ? Type of Polyp i n which Invasive Carcinoma Arose: ??None identified ? Treatment Effect: ??No known presurgical therap y Margins ? Margin Status f or Invasive Carcinoma: ??Cannot be determined - see margin ?comment ? Margin Status for Non-Invasive Tumor: ??Not raheel licable ? Margin Comment: ??Proximal margin, Distal margin and mesenteric margin are ?negative for tumor. ? Other margin, s oft tissue at vascular pedicle is involved by invasive ?carcinoma, with tumor in soft tissue and lymphovascular spaces. Regional Lymph Nodes ? Regional Lymph Node Status: ??Tumor present in regional lymph node(s) ?Number of Lymph Nodes with Tumor: ??5 ? Number of Lymph Nodes Examined: ??22 ? Tumor Deposits: ??Present ?Number of Tumor Deposits: ??2 Pathologic Stage Classification (pTNM, AJCC 8th Edition) ? pT Category: ??pT3 ? pN Category: ??pN2a Additional Findings ? Additional Find ings: ??Adenoma(s); ??Appendix with fibrous obliteration Comments ? 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 ? Per outside pat hology report ([facility]), the tumor shows loss of MLH1/PMS2 and ?retained expr ession of MSH2/MSH6 proteins, and and immunostains were not ?submitted for review. Best Tumor Blocks for Future Studies . SYNOPTIC ? Tumor Block(s): ??A4 to A9, A15-A19 ? Normal Block(s): ??A1, A2 ? CAP eCC 2021 Q1 Release ADDITIONAL STUDIES Whole slide scan: [id number] SPECIMEN(S) SUBMITTED CONSULTATION CASE A - 29 slide(s) labeled [id number], collection date 2. [id number] Report to: [facility] Surgical Pathology Department [facility], [address]nd Floor [address] [place], [place] ??[address] CLINICAL INFORMATION Right colon lesion SPECIMEN PROCESSING [facility] ([facility]) pathology slide(s) are reviewed. ??Refer to Diagnosis and Specimen Submitted for specific case infor kira. For the full text of the [facility] report(s) please refer t o Non-DH Documentation Pathology in the electronic health record (eDH). Specimen (Source) Anatomical Collection Method Collection Time Re ceived Time Location / / Volume Laterality 02/02/2022 3:04 PM EDT Ángel Fischer MD PATHOLOGY/CYTOLOGY ORDERABLE S Performing Organization Address City/State/ZIP [place] [address] DPYD PCR (01/27/2022 12:16 PM EDT) Component Value Ref Test Analysis Performed At [facility] Range Method Time Signature DPYD PCR INDICATION FOR STUDY: DPYD Genotyping [facility] RESULTS: Normal metabolizer, *1/*1 genotype [facility] INTERPRETATION: ??Normal gen otype, with normal expected enzyme activity. Absence LABORATORY of a variant does not rule out the possibility o f an undetected polymorphism. This result does not replace the need for therapeutic drug o r clinical monitoring. METHODS: The DPYD genotyping assay tested for the presence of the following three variants using a TaqMan allelic discrimination assay and detection of normal and mutant probes for each varian t: DPYD*2A ??(c.1905+1G>A, [id number]), DPYD*13 (c.1679T>G , [id number]), and DP YD c.2846A>T ([id number]). All variant positions are provided on the canonical transcri pt (NM_[id number]). Genomic DNA was isolated from the submitted peripheral blood speci men. Real-time PCR was performed to amplify a short region spanning the variant site, and genotyping was performed by allelic discrimination using a mixture of f luorescently labeled probes, one of which is specific to the reference sequence, the other specific to the variant target. LIMITATIONS AND DISCLAIMERS: ??Although unlikely, rare variants or polymorphisms (known or unknown) have the potential to interfere with the performance of this test, producing false negative or false positive results. ??When genotyping results are not consistent with other clinical observa tions or test results, additional testing should be considered. This test was developed and its performance determined by the laboratory for Clinical Genomics and [employer] Technology (CG[facility]) at the [facility]. It has not been cleared or approved by the U .S. Food and Drug Administration. The laboratory is regulated under CLIA as qual ified to perform high-complexity testing. This test is used for clinical purposes. It should not be regarded as investigational or for research. REFERENCES: 1. CPIC?? Guideline for Fluoropyrimidines and DPYD. https:// cpicpgx.org/ 2. Kumar et al., Clinical Pharmacogenetics Imp lementation Consortium (CPIC) Guideline for Dihydropyrimidine Dehydrogenase Genotype and Fluoropyrimidine Dosin Update. Clin Pharmacol Ther. 2018 Jun;103(2):21 0-216. PMID: [id number] 3. Mars Sparks, Walt Roberts, Yogesh Rapp, et al. Fluorouracil Ther apy and DPYD Genotype. In: Medical Genetics Summaries [Internet]. B vicente MONTES): [employer] for [employer] [facility] (); 2011? 2015 3. PMID: [id number] Specimen Anatomical Collection Method Collection Time Receive d Time (Source) Location / / Volume Laterality Blood 01/27/2022 12:16 01/27/2022 1:17 PM EDT PM EDT Resulting Agency Comment Spec In Lab Ángel Fischer MD CHEMISTRY ORDERABLES Performing Organization Address City/State/[place] [address] Scan, Peripheral Blood (01/27/2022 12:16 PM EDT) [facility] Method Time Signature Plat Estimate Normal [facility] RBC Morphology Abnormal [facility] Hypochromia Slight [facility] Ovalocytes 1-5 /HPF [facility] Tear Drop Cells 1-5 /HPF [facility] Smudge Cells Present [facility] Specimen Anatomical Collection Method Collection Time Receive d Time (Source) Location / / Volume Laterality Blood 01/27/2022 12:16 01/27/2022 PM EDT 12:23 PM EDT Resulting Agency Comment Spec In Lab Ángel Fischer MD HEMATOLOGY ORDERABLES Performing Organization Address City/[facility]/[place] [address] (ABNORMAL) Hemogram (01/27/2022 12:16 PM EDT) [facility] Method Time Signature WBC 90.0 4.0 - 9.5 MADIHA BOBO (Critical) x10(3)/[facility] LABORATORY RBC 4.39 4.00 - MADIHA FAIRCHILDBOBO 5.21 [facility] x10(6)/[facility] LABORATORY Hemoglobin 11.0 (L) 11.7 - MADIHA FAIRCHILDBOBO 15.5 g/dL [facility]ORY Hematocrit 38.2 35.7 - MADIHA BOBO 45.8 % [facility] LAB[facility] MCV 87.0 82.6 - MADIHA FAIRCHILDBOBO 94.4 [facility] LABORATORY MCH 25.1 (L) 27.1 - MADIHA FAIRCHILDBOBO 32.0 pg [facility] LAB[facility]ORY MCHC 28.8 (L) 31.7 - MADIHA BOBO 35.0 g/dL [facility] Platelets 244 145 - 357 MADIHA [facility] x10(3)/[facility] LABORATORY RDWSD 50.0 (H) 37.0 - [facility] BOBO 46.0 [facility] LABORATORY RDWCV 16.3 (H) 11.5 - [facility] BOBO 14.1 % [facility] LABOR[facility]ORY MPV 10.8 7.6 - 12.9 [facility] LABORATORY nRBC % Auto 0.0 % [facility] LABORATORY nRBC Abs Auto 0.000 0.000 - [facility] 0.000 [facility] x10(3)/[facility] LABORATORY Specimen Anatomical Collection Method Collection Time Receive d Time (Source) Location / / Volume Laterality Blood 01/27/2022 12:16 01/27/2022 PM EDT 12:23 PM EDT Resulting Agency Comment Spec In Lab Ángel Fischer MD HEMATOLOGY ORDERABLES Performing Organization Address City/State/ZIP [place] [address] (ABNORMAL) Differential, Automated (01/27/2022 12:16 PM EDT) [facility] Method Time Signature Neutrophils % 8.9 % [facility] LABORATORY Neutr Abs (ANC) 7.99 (H) 1.70 - [facility] 6.10 [facility] x10(3)/[facility] LABORATORY Lymphocytes % 89.6 % [facility] LABORATORY Lymphocytes Abs 80.6 (H) 0.9 - 3.2 [facility] x10(3)/[facility] LABORATORY Monocytes % 0.7 % [facility] LABORATORY Monocyte Abs 0.7 0.3 - 0.9 [facility] x10(3)/[facility] LABORATORY Eosinophils % 0.1 % [facility] LABORATORY Eosinophils Abs 0.1 0.0 - 0.4 [facility] x10(3)/[facility] LABORATORY Basophils % 0.4 % [facility] LABORATORY Basophils Abs 0.4 (H) 0.0 - 0.1 [facility] x10(3)/[facility] LABORATORY Immature Gran % 0.30 % [facility] LABORATORY Comment: Immature granulocytes(IG's)percentage an d absolute count will include metamyelocytes, myelocytes, and promyelo cytes. Blood smears from CBCs yielding IG's will be scanned manually for concor dance. If this scan disagrees with the automated IG or if promyelocytes are not ed, a manual differential will be performed. Claudia Gran Abs 0.28 (H) 0.00 - 0.04 x10(3)/mcL [facility] LABORATORY Specimen Anatomical Collection Method Collection Time Receive d Time (Source) Location / / Volume Laterality Blood 01/27/2022 12:16 01/27/2022 PM EDT 12:23 PM EDT Resulting Agency Comment Spec In Lab Ángel Fischer MD HEMATOLOGY ORDERABLES Performing Organization Address City/State/ZIP Code Phon e Number [address] (ABNORMAL) Iron and TIBC (01/27/2022 12:16 PM EDT) athologist Signature Iron 39 30 - 150 [facility] mcg/dL [facility] LAB[facility]ORY TIBC 361 250 - 450 [facility] mcg/dL [facility] LABORATORY Iron Saturation 11 (L) 20 - 50 % [facility] LABORATORY Specimen Anatomical Collection Method Collection Time Receive d Time (Source) Location / / Volume Laterality Blood 01/27/2022 12:16 01/27/2022 PM EDT 12:23 PM EDT Resulting Agency Comment Spec In Lab Ángel Fischer MD CHEMISTRY ORDERABLES Performing Organization Address City/[facility]/[place] [address] TSH (01/27/2022 12:16 PM EDT) athologist Signature TSH 2.48 0.27 - 4.20 [facility] mcIU/mL [facility] LAB[facility]ORY Comment: Reference Interval (mcIU/mL): Females: ??First Trimester: 0.23-3.88 ??Second Trimester: 0.22-3.90 ??Third Trimester: 0.44-4.66 Specimen Anatomical Collection Method Collection Time Receive d Time (Source) Location / / Volume Laterality Blood 01/27/2022 12:16 01/27/2022 PM EDT 12:23 PM EDT Resulting Agency Comment Spec In Lab Ángel Fischer MD CHEMISTRY ORDERABLES Performing Organization Address City/State/[place] [address] Ferritin (01/27/2022 12:16 PM EDT) athologist Signature Ferritin 39 30 - 400 [facility] Comment: Pediatric reference ranges not verified at [facility], interpret with caution. Reference ranges for females greater garcia n 50 years of age approach values for men, i.e., 30-400 ng/mL. Specimen Anatomical Collection Method Collection Time Receive d Time (Source) Location / / Volume Laterality Blood 01/27/2022 12:16 01/27/2022 PM EDT 12:23 PM EDT Resulting Agency Comment Spec In Lab Ángel Fischer MD CHEMISTRY ORDERABLES Performing Organization Address City/[facility] [place] [address] CEA (01/27/2022 12:16 PM EDT) athologist Signature CEA 422.0 ng/mL [facility] LABORATORY Comment: Reference range: ??(20-69 years): Non-smoker: ??less than or equal to 3.8 ng/mL Smoker: ??less than 5.5 ng/ml This result was generated using a Yasmin Shawna immunoassay. ??Results obtained from other methods or manufacturers alina ot be used interchangeably with this method. Specimen Anatomical Collection Method Collection Time Receive d Time (Source) Location / / Volume Laterality Blood 01/27/2022 12:16 01/27/2022 PM EDT 12:23 PM EDT Resulting Agency Comment Spec In Lab Ángel Fischer MD CHEMISTRY ORDERABLES Performing Organization Address City/[facility]/ZIP [facility] [place] [address] Comprehensive metabolic panel (non-fasting) (01/27/2022 12:16 PM EDT)Only the most recent of2 resultswithin the time period is included. athologist Signature Glucose Lvl 135 65 - 199 [facility] Comment: Diabetes: >=200 mg/dL plus symp toms BUN 15 8 - 18 mg/dL [facility] LABORATORY Creatinine 0.77 0.70 - 1.20 mg/dL [facility] LABORATORY Sodium 142 135 - 145 mmol/L [facility] LABORATORY Potassium 4.1 3.5 - 5.0 mmol/L [facility] LABOR[facility] Comment: Please note: ??Patients with WBC >100,00 0 may have falsely elevated Potassium levels. ??For accurate Potassium quantif ication in these patients send serum separator tube (gold top) for subsequent determinations. ??Contact the Clinical Chemistry Laboratory if there are any qu estions. Chloride 105 98 - 107 mmol/L [facility] LABOR[facility] CO2 28 22 - 31 mmol/L [facility] Anion Gap 9 5 - 15 mmol/L [facility] LABOR[facility] Calcium 9.4 8.5 - 10.5 mg/dL [facility] Total Protein 6.7 6.1 - 8.0 g/dL [facility] LABOR[facility]ORY Albumin 4.5 3.2 - 5.2 g/dL [facility] AST 22 0 - 30 unit/L [facility] ALT 12 0 - 30 unit/L [facility] Alk Phos 65 35 - 105 unit/L [facility] Total Bilirubin 0.3 0.2 - 1.3 mg/dL [facility] LABORATORY Estimated GFR 82 >=60 mL/min/1.73 m?? [facility] LABOR[facility] Comment: This patient's estimated GFR was calcula nora using the 2020 CKD-EPI equation. The estimated GFR can vary from the adam ured GFR by up to 30% in the absence of rapidly changing kidney function. Assess ment of the estimated GFR is not appropriate when creatinine concentratio ns are rapidly changing. For clinical situations in which a more precise estim ate of GFR is necessary, consider alternative methods of GFR estimation lorenzo ch as a 24-hour urine creatinine clearance. Assignment of CKD stage 1-5 for patients with an eGFR near the transition point between stages may be based on clinical assessment of muscle mass and symptoms in addition to eGFR. Specimen Anatomical Collection Method Collection Time Receive d Time (Source) Location / / Volume Laterality Blood 01/27/2022 12:16 01/27/2022 PM EDT 12:23 PM EDT Resulting Agency Comment Spec In Lab Ángel Fischer MD CHEMISTRY ORDERABLES Performing Organization Address [facility]/ZIP Code [place] [address] OCT Retina - OU - Both Eyes (01/17/2022 5:13 PM EDT) Anatomical Region Laterality Modality Other Specimen (Source) Anatomical Location Collection Method / Collectio n Time Received Time / Laterality Volume Narrative 01/17/2022 5:13 PM EDT Right Eye Quality was good. Scan locations include d subfoveal. Progression has been stable. Findings include abnormal foveal contour. Left Eye Quality was good. Scan locations include d subfoveal. Progression has been stable. Findings include abnormal foveal contour. Venkata Page MD OPHTHALMOLOGY SERVICES ORDER MELYSSA Film Library- Storage Only CT Chest (01/10/2022 12:00 AM EDT) Specimen (Source) Anatomical Location Collection Method / Collectio n Time Received Time / Laterality Volume Narrative [facility] [place] 2] - 01/26/2022 11:59 AM EDT This exam is auto-finalizing. It's purpo se is for storage only. Mook Coffey DO [facility] [place] FILM LIBRARY ORDERABLES Performing Organization Address [facility] Code Phon e Number [place], [place] Film Library- Storage Only CT Abdomen & Pelvis (12/15/2021 12:00 AM EDT) Specimen (Source) Anatomical Location Collection Method / Collectio n Time Received Time / Laterality Volume Narrative RAD - 01/06/2022 8:39 PM EDT This exam is auto-finalizing. It's purpo se is for storage only. Ángel Fischer MD IMG FILM LIBRARY ORDERABLES Performing Organization Address [facility]/ZIP Code Phon e Number [place], [place] (ABNORMAL) CBC (with Diff) (11/26/2021)Only the most recent of2 resultswithin the time period is included. [facility] gist Method Time Signature Iron 40 (L) TIBC 391 Iron Saturation 10 (L) Ferritin 11 Erythropoietin 43.2 (H) Haptoglobin [address] % 1.2 % Specimen (Source) Anatomical Location Collection Method / Collectio n Time Received Time / Laterality Volume Blood 11/26/2021 Historical Provider HEMATOLOGY ORDERABLES (ABNORMAL) Protein Electrophoresis, serum (11/26/2021) athologist Signature Total Prot 6.2 (L) Elec Albumin Elect 4.0 Alpha1-Globuli 0.30 n Alpha2-Globuli 0.80 n Beta Globulin 0.70 Gamma Globulin 0.40 (L) 0.60 - 1.60 Specimen (Source) Anatomical Location Collection Method / Collectio n Time Received Time / Laterality Volume Blood 11/26/2021 Historical Provider CHEMISTRY ORDERABLES Folate, serum (11/26/2021) athologist Signature Folate Lvl 12.0 Vitamin B-12 484 TSH 3.036 Specimen (Source) Anatomical Location Collection Method / Collectio n Time Received Time / Laterality Volume Blood 11/26/2021 Historical Provider CHEMISTRY ORDERABLES from Last 3 Months Insurance Payer Benefit Plan / Subscriber ID Effective Phone Address T ype Group Dates MEDICARE MEDICARE PART A [id number] 2016-Pres [phone] [place] [phone] AARP SUPPLEMENT AARP SUPPLEMENT [id number] 2016-[place] [id number] [place] [address] Guarantor Name Account Type Relation to Date of Phone Billing Patient Address Carol Keller Personal/Family Self 1950 [address] (Home) MARY TORRES [phone] (Work) Advance Directives Latest Code Status on File Code Status Date Activated Date Inactivated Comments Full Code 01/05/2017 1:55 PM 01/05/2017 7:58 PM Does patient have capacity to make decision: Yes Partial Code. 07/14/2016 3:19 PM 07/22/2016 5:27 PM Does patient have capacity to make Yes decision: Code Limitations: Do not perform chest compressions Content of discussion: Patient would like to be intubated an d have vasoactive drugs, but would not want swati st compressions Partial Code. 07/14/2016 12:30 PM 07/14/2016 3:19 PM Does patient have capacity to make Yes decision: Code Limitations: Do not call CPR Team Do not perform chest compressions Do not defibrillate, cardiovert, or externally pace Do not use vasoactive drugs, atropine or antiarrhythmics Content of discussion: intubation okay-no compressions Full Code 07/11/2016 8:38 AM 07/11/2016 1:55 PM Does patient have capacity to make decision: Yes Care Teams Home Health Aide Caregiver Relationship Specialty Start Date End Date Mook Coffey DO PCP - General Family Medicine 02/16/[address] [place] [phone]
--- OUTSIDE RECORDS SUMMARY | 2022-02-11 01:06 | XMS_ITS | Encounter Summary ---
:1950 Author Organization [facility] Address [address] [place] [id number] Care Team Providers Name Role Phone Unavailable Primary Care Provider Unavailable Encounter Details Date Type Department Care Team Description 01/08/2009 Orders Only [facility] Berkley Madrigal , Laboratory Services - Zulema ALEGRIA [address] [address] Social History Tobacco Use Types Packs/Day Years Used Date Never Assessed Sex Assigned at Date Recorded Not on file documented as of this encounter Plan of Treatment Not on filedocumented as of this encounter Procedures Procedure Name Priority Date/Time Associated Diagnosis Comme nts FLOW CYTOMETRY Routine 01/08/2009 8:19 EDT Result s for this procedure are i n the results section . documented in this encounter Results FLOW CYTOMETRY (01/08/2009 8:19 EDT) Pathology FLOW CYTOMETRY REPORT ? [facility] Report: ? LAB Reports generated via [employer] interface contain original data; ? however they are lacking the format of the original report. ? Caution should be taken when reading/interpreting unformatted reports. ? Name: ? DAYAMI, ELIZABE TH ? Accession #: ? [id number] ? : ? 1950 (Age: 58) ??F ?Collect Date: ? 01/08/2009 08:19 ? Location: ? [facility] ? Receive Date: ? 01/08/2009 20:00 ? Provider: ?BERKLEY SHIVAM MARTINA MD ? Copy to: ? Immunophenotype Analysis ? Final Immunophenotypic Inter pretation: ? Peripheral blood, triny w cytometric analysis: ?- Chronic lympho cytic leukemia, B-cell kappa light chain lineage. ??See ?? description. ? Date Tested: ??01/09/2009 ? Description: ? The specimen consists of per ipheral blood subjected to erythrocyte lysis by an ?? ammonium chloride-based tech nique. ??Gating is performed using CD45 fluorescence and side scatter. ??Cellular viability (assessed by propidium iodide exclusion) ?? is excellent (99%). ??Expres bandar of the following markers is tested: ??CD2, CD3, ?? CD4, CD5, CD7, CD8, CD10, CD 11b, CD11c, CD13, CD14, CD16, CD19, CD20, CD23, ? CD33, CD34, CD38, CD45, CD56 , CD57, CD117, FMC-7, HLA-DR, kappa light chain, ? lambda light chain. ? There is a clonal population of B-lymphocytes accounting for 65% of the ? lymphocytes. ??The cells com prising this population are positive for CD19, dim ?? kappa, CD5, dim CD20, CD23, HLA-DR, and they are negative for CD10, FMC-7, and ?? CD38. ??By light scatter cri teria, the cells are similar in size to normal ? lymphocytes. ? The results of flow cytometr y are those of involvement by a lymphoproliferative disorder of B-cell lineage e xpressing kappa light chains. ??The immunophenotypic profile is consistent with c hronic lymphocytic leukemia. ??Correlation of these ?? findings with morphologic an d clinical data is essential. ? This test was developed and its performance characteristics determined by the ?? Department of Pathology and Laboratory Medicine, [facility], ? Radha Guaman. ??It has not been cleared or approved by the U.S. Food and Drug ?? Administration. ? Document reviewed and electr onically signed by: ? Dominick Caldwell, MD ? Report Date: ??01/09/2009 14 :58 ? By the signature above, the attending physician certifies that he/she has ? personally conducted an eval uation of the described specimen and rendered or ? confirmed the above diagnosi s. ? Specimen/ Type: ?P eripheral Blood - Flow Cytometry ? Clinical History: ? CLL ? End of Report ? Specimen Performing Organization Address City/State/ZIP Code Phon e Number [facility] [address] [place] [address] SERVICES [facility] [address] [place] [address] documented in this encounter Visit Diagnoses Not on filedocumented in this encounter
--- OUTSIDE RECORDS SUMMARY | 2022-02-11 01:06 | XMS_ITS | Clinical Summary ---
:1950 Author Organization [facility] Address [address] [place] [address] Care Team Providers Name Role Phone Berkley Madrigal MD Primary Care Provider Unavailable Encounters Date Type Specialty Care Team Description 12/31/2021 Lab Requisition Clinical Laboratory Blayne Shrestha En counter for other MD [place] general examina tion 12/20/2021 Lab Requisition Clinical Laboratory Blayne Shrestha En counter for other MD [place] general examina tion 12/20/2021 Lab Requisition Clinical Laboratory Outr Resulting Lab, Provider 11/26/2021 Lab Requisition Clinical Laboratory Outr Resulting Lab, Provider from Last 3 Months Social History Tobacco Use Types Packs/Day Years Used Date Never Assessed Sex Assigned at Date Recorded Not on file Plan of Treatment Health Maintenance Due Date Last Done Comments Hepatitis C Screen 1950 COVID-19 Vaccine (#1) 1950 Fall Risk Screening 2014 Procedures Procedure Name Priority Date/Time Associated Comments Diagnosis SURGICAL PATHOLOGY Today 12/30/2021 18:08 Resul ts for this EDT procedure are i n the results section. CEA Routine 12/20/2021 14:39 Results for this EDT procedure are i n the results section. SURGICAL PATHOLOGY Today 12/20/2021 12:01 Resul ts for this EDT procedure are i n the results section. SPEP, INCLUDES Today 11/26/2021 11:20 Results f or this QUANTITATION OF EDT procedure ar e in MONOCLONAL SPIKE the results PERFORMABLE section. PROTEIN, TOTAL Today 11/26/2021 11:20 EDT HAPTOGLOBIN Routine 11/26/2021 11:20 Results for this EDT procedure are i n the results section. SPEP, INCLUDES Routine 11/26/2021 11:20 Results f or this QUANTITATION OF EDT procedure ar e in MONOCLONAL SPIKE the results section. from Last 3 Months Results SURGICAL PATHOLOGY (12/30/2021 18:08 EDT)Only the most recent of2 resultswithin the time period is included. Note to Patient The following [facility] pathology results have CENTER been interpreted by your LABORATORY pathologist and may be SERVICES available to you before your health provider has had the opportunity to review them. Please allow time for your provider to receive these results and explore management options, if applicable. Final Diagnosis A. RIGHT COLON, HEMICOLECTOMY: [facility] - Invasive moderately-differ entiated adenocarcinoma with [...] involving lymph nodes. See comment. Diagnosis Comment Box Puller slides of hay s case were reviewed at the gastrointestinal/liver intradepartmental consultation conference (AA, ). This case was reviewed in consultation by Dr. Keron Srinivasan who has expertise [facility] in hematopathology, and he a brooke with the diagnosis of small lymphocytic lymphoma. [facility] RESULTS OF IMMUNOHISTOCHEMIC AL STAINING: Loss of MLH1 and PMS2 and retained expression of MSH2 and MSH6 proteins TISSUE SUBMITTED: Formalin f ixed paraffin embedded tissue block labelled ([id number]), block (A6) TUMOR TYPE: Invasive adenocarcinoma INTERPRETATION: [...] notice. ANTIBODY (CLONE) (BLOCK): RESULT MLH1 (M1, [place]) (block A6): Loss of expression in t he tumor PMS2 (A16-4, [place]) (block A6): Loss of expression i n the tumor MSH2 ([id number], [place]) (block A6): Retained express ion in tumor MSH6 (SP93, [place]) (block A6): Retained expression i n tumor Internal controls: Adequate Immunoperoxidase stains were performed on this case to further characterize the lymphoid lesion. ANTIBODY(CLONE)(BLOCK):RESULT CD3 (SP7, [employer]) (A22): Highlights backgro und T cells CD20 (L26, [place]) (A22): Highlights neoplastic B isaac ls CD5 (SP19, [place]) (A22): P ositive in neoplastic B cells; Highlights background T cells LEF-1 (EP310, [employer]) ( A22): Positive in neoplastic B cells; Highlights background T cells Cyclin D1(SP4-R, [place]) (A22): Negative CD10 (SP67, [place]) (A22): Positive in germinal cente r BCL-2 [...] characteristics have been de termined by [facility] and/or by the referring laboratory. The [...] clinical laboratory testing. Attestation There was significant [facility] Electr onically resident/fellow CENTER signed [...] Including Transanal Disk Excision of Rectal Neoplasms [facility] COLON AND RECTUM: RESECTION - [...] Findings: ?Adenoma(s) Clinical History Right colon lesion [facility] Gross Description A. [facility] Received in formalin chris d [...] mesoappendix. No perforations are identified. Sectioning reveals stoery- white to yellow cut surfaces. The lumen [...] A17- multiple lymph nodes, submitted intact A18- chemical sales representative grossly positive lymph node A19- chemical sales representative grossly positive lymph node A20- 1 lymph node, bisected A21- 4 lymph nodes, submitted intact A22- 1 lymph node, bisected A23- 1 lymph node, bisected A24- 4 lymph nodes, submitted intact A25- 4 lymph nodes, submitted intact A26- 2 lymph nodes, submitted intact A27- 2 lymph nodes, submitted intact FACUNDO MONROY(ASCP) 01/03/2022 14:39 Resident/Fellow: Servando Barragan MD [facility] Performing Lab [facility] Scanned Images [facility] Specimen Tissue - Entire sigmoid colon (body stru cture) Performing Organization Address City/State/ZIP Code Phon e Number [facility] [address] [place] [address] SERVICES CEA (12/20/2021 14:39 EDT) CEA 281.2 See Note [facility] Comment: ng/mL LABORATORY % Distribution of CEA [...] malignant disease. ?? Assayed on Siemens [employer] taur XPT using chemiluminescent technology. ??Values obtained by different assay methods cannot be used interchangeably. Specimen Blood - Venous blood (substance) Performing Organization Address City/State/ZIP Code Phon e Number [facility] [address] [place] [address] SERVICES (ABNORMAL) SPEP, INCLUDES QUANTITATION OF MONOCLONAL SPIKE PERFORMABLE (11/26/2021 11:20 EDT) Albumin % 65.2 55.8 - 66.1 % [facility] Albumin g/dL 4.0 3.6 - 5.2 g/dL [facility] Alpha-1 % 4.8 2.9 - 4.9 % [facility] Alpha-1 g/dL 0.30 0.15 - 0.40 [facility] g/dL LABORATORY SERVICES Alpha-2 % 12.1 (H) 7.1 - 11.8 % [facility] Alpha-2 g/dL 0.80 0.50 - 1.00 [facility] g/dL LABORATORY SERVICES Beta % 11.3 8.4 - 13.1 % [facility] Beta g/dL 0.70 0.60 - 1.20 [facility] g/dL LABORATORY SERVICES Gamma % 6.6 (L) 11.1 - 18.8 % [facility] Gamma g/dL 0.40 (L) 0.60 - 1.60 [facility] g/dL LABORATORY SERVICES SPEP Comment No apparent [facility] monoclonal protein LABORATORY SERVICES seen on serum electrophoresisComm ent: See scanned/supplementa ry report. Total Protein 6.2 (L) 6.3 - 8.2 g/dL [facility] Specimen Blood - Venous blood (substance) Narrative This result has an attachment that is no t available. Performing Organization Address City/State/ZIP Code Phon e Number [facility] [address] [place] [address] SERVICES PROTEIN, TOTAL (11/26/2021 11:20 EDT) Specimen Blood - Venous blood (substance) Performing Organization Address City/[facility]/ZIP Code Phon e Number [facility] [address] [place] [address] SERVICES HAPTOGLOBIN (11/26/2021 11:20 EDT) Pathologist Sig nature Haptoglobin 121 32 - 197 mg/dL [facility] SERVICES Specimen Blood - Venous blood (substance) Performing Organization Address City/State/ZIP Code Phon e Number [facility] [address] [place] [address] SERVICES from Last 3 Months Insurance Payer Benefit Plan Subscriber ID Effective Phone Address Typ e / Group Dates MEDICARE MEDICARE A/B [id number] 2014-Pre [address] edicare GL sent [id number] [place] [address] [facility] [id number] 2016-Pre [phone] [address] Comm ercial [employer] sent [phone] [place] [address] (Work) AriannaCarol Personal/Famil Self 1950 [address] [phone] [place], [place] [address] (Work) AriannaCarol Personal/Famil Self 1950 [address] [phone] [place], [place] [address] (Work) AriannaCarol Personal/Famil Self 1950 [address] [phone] [place], [place] [address] (Work) AriannaCarol Personal/Famil Self 1950 [address] [phone] [place], [place] [address] (Work) Jessica Kellerth Personal/Famil Self 1950 [address] [phone] [place], [place] [address] (Work) Carol Keller Personal/Famil Self 1950 [address] [phone] [place], [employer] [address] (Work) Carol Keller Personal/Famil Self 1950 [address] [phone] [place], [employer] [phone] (Work) Care Teams Hairspring Staker Relationship Specialty Start Date End Date Berkley Madrigal MD PCP - General 01/16/09
--- OUTSIDE RECORDS SUMMARY | 2022-02-11 01:06 | XMS_ITS | Encounter Summary ---
:1950 Author Organization [facility] Address [address] [place] [address] Care Team Providers Name Role Phone Berkley Madrigal MD Primary Care Provider Unavailable Encounter Details Date Type Department Care Team Description 05/26/2005 Results Only [facility] - Kathay Brown MD [address] [place] [address] Social History Tobacco Use Types Packs/Day Years Used Date Never Assessed Sex Assigned at Date Recorded Not on file documented as of this encounter Plan of Treatment Not on filedocumented as of this encounter Procedures Procedure Name Priority Date/Time Associated Diagnosis Comme nts CYTOPATHOLOGY Routine 05/26/2005 0:00 EST Results for this procedure are i n the results section . documented in this encounter Results CYTOPATHOLOGY (05/26/2005 0:00 EST) Pathology Report: CYTOPATHOLOGY REPORT [facility] Reports generated via electronic interface contain cara ginal data; however they are lacking the format of the original re port. Caution should be taken when reading/interpreting unfo rmatted reports. Name: ? CAROL KELLER ? Accession #: ? [id number] : ? 1950 (Age: 55) ??F ?Collect Date: ? 09/2005 Location: ? [facility] ? Receive Date : ? 05/30/2005 Provider: ?BERKLEY MADRIGAL MD Copy to: ? Specimen/Source: ? ThinPrep Pap Test, Vagina, processed on Mi[employer]io ThinPrep Imaging System, with manual evaluation Last Menstrual Period: ? Hormonal/Contraceptive Status: ? Premarin Treatment History: ? Hysterectomy ? SPECIMEN ADEQUACY ? Satisfactory for Evaluation - assessment of transformation zone component not appl icable ( e.g. atrophy, vaginal sample, hysterectomy) GENERAL CATEGORIZATION ? Negative for Intraepithelial Lesion or Malignan cy ? Document reviewed and electronically signed by: ? Chika Barragan, SCT(ASCP) ? Report Date: ??05/31/2005 14:34 End of Report Specimen Performing Organization Address City/State/ZIP Code Phon e Number [facility] [address] [place] [address] SERVICES [facility] [address] [place] [address] documented in this encounter Visit Diagnoses Not on filedocumented in this encounter Care Teams Medical Technician Assistant Relationship Specialty Start Date End Date Berkley Madrigal MD PCP - General 01/16/09 documented as of this encounter
--- OUTSIDE RECORDS SUMMARY | 2022-02-11 01:07 | XMS_ITS | Encounter Summary ---
:1950 Author Organization [facility] [place] [place] [address] Care Team Providers Name Role Phone Mook Coffey DO Primary Care Provider Encounter Details Date Type Department Care Team Description 12/15/2021 Ancillary Procedure Radiology Library at [facility], Bennie Lehman, [facility] [address] [address] ONCOLOGY [phone] [place], [place] [address] (Wo rk) Social History Tobacco Use Types Packs/Day Years [...] place to sleep or slept in a correction (including now)? Sex Assigned at Date Recorded Female 12/24/2020 12:51 PM EDT documented as of this encounter Plan of Treatment Upcoming Encounters Date Type Specialty Care Team Description 02/11/2022 Scheduled View Only Hematology and Ángel Fischer Oncology [facility] ONCOLOGY [place], [place] [address] (Shana hewitt) 02/11/2022 TH Visit (TeleHealth) Hematology Ángel Kimbrough Oncology [facility] ONCOLOGY [place], [place] [address] (Shana hewitt) 02/11/2022 Infusion Hematology and Oncology 02/11/2022 Office Visit Hematology and Jazzy Armendariz R D Oncology [facility] CESAR HEMATOLOGY AND ONCOLOGY [place], [place] [address] (Shana hewitt) 02/22/2022 TH Visit (TeleHealth) Hematology and Yaquelin Celis Oncology E, [facility] HEMATOLOGY AND ONCOLOGY [place], [place] [address] (Wo rk) 02/25/2022 Office Visit Hematology Ángel Kimbrough Oncology MD [facility] ONCOLOGY [place], [place] [address] (Wo rk) 02/25/2022 Infusion Hematology and Oncology 03/10/2022 Scheduled View Only Obstetrics and Nurse, Julian COLEMAN, egg processor 03/10/2022 Office Visit Obstetrics and Shazia Whitley, Gynecology [facility] UROGYNECOLOGY [place], [place] [address] (Wo rk) 03/11/2022 Office Visit Hematology and Ángel Fischer MD [facility] [address] Oncology Alyssa Joseph [address] MEDICAL ONCOLOGY [place], [place] [address] 03/11/2022 Infusion Hematology and Oncology 03/25/2022 Office Visit Hematology and Alyssa Joseph Oncology [address] [place]COLOGY [place], [place] [phone] (Wo rk) 03/25/2022 Infusion Hematology and Oncology 03/31/2022 Office Visit Hematology and Alan Livingston M D [facility] DR HEMATOLOGY/[place] [address] Oncology Nilam So [facility] HEMATOLOGY/[place] [address] 04/08/2022 Office Visit Hematology and Ángel Fischer MD [facility] [place] [address] Oncology Alyssa Joseph[address] [place] [address] 04/08/2022 Infusion Hematology and Oncology documented as of this encounter Procedures Procedure Name Priority Date/Time Associated Diagnosis Comme nts FILM LIBRARY Routine 12/15/2021 12:00 AM Results for this STORAGE ONLY CT EDT procedure ar e in ABDOMEN AND PELVIS the resul ts section. documented in this encounter Results Film Library- Storage Only CT Abdomen & Pelvis (12/15/2021 12:00 AM EDT) Specimen (Source) Anatomical Location Collection Method / Collectio n Time Received Time / Laterality Volume Narrative RAD - 01/06/2022 8:39 PM EDT This exam is auto-finalizing. It's purpo se is for storage only. Ángel Fischer MD [employer] FILM LIBRARY ORDERABLES Performing Organization Address City/State/ZIP Code Phon e Number [place], [place] documented in this encounter Visit Diagnoses Not on filedocumented in this encounter Care Teams Seismic Prospecting Supervisor Relationship Specialty Start Date End Date Mook Coffey DO PCP - General Family Medicine 02/16/[address] [place] [phone] documented as of this encounter
--- OUTSIDE RECORDS SUMMARY | 2022-02-11 01:07 | XMS_ITS | Encounter Summary ---
:1950 Author Organization [facility] [place] [address] Care Team Providers Name Role Phone Mook Coffey DO Primary Care Provider Reason for Referral Consultation (Routine) - Authorized Specialty Diagnoses / Procedures Referred By Contact Refer red To Contact Diagnoses Malignant neoplasm of ascending colon Ángel Fischer MD Kelley, Matthew P, MD [address] [place] [address] [place] [address] Referral ID Status Reason Start Date Expiration Visits Visits Date Requested Authorized [id number] Authorized Consult, 01/27/2022 07/26/2022 1 1 Test & Treat Consultation (Routine) - Authorized Specialty Diagnoses / Procedures Referred By Contact Refer red To Contact Hematology and Oncology Diagnoses Malignant neoplasm of ascending colon Ángel Fischer Stj Hem Onc Offi delma ALEGRIA [address] [place] [phone] [place] [address] Referral ID Status Reason Start Date Expiration Visits Visits Date Requested Authorized [id number] Authorized Consult, 01/27/2022 01/27/2023 1 1 Test & Treat Reason for Visit Reason Comments Establish Care Consultation (Routine) - Closed Specialty Diagnoses / Procedures Referred By Contact Refer red To Contact Hematology and Diagnoses Malignant neoplasm of colon, unspecified part of colon Blayne Shrestha, [facility] 3k Oncology MD [facility] [address] [place], [place] [phone] Referral ID Status Reason Start Date Expiration Date Visits V isits Requested Authorized [id number] Closed Consult, 01/05/2022 01/05/2023 1 1 Test & Treat Encounter Details Date Type Department Care Team Description 01/27/2022 Office Visit Hematology and Ángel Fischer, Maligna nt neoplasm of ascending colon; Oncology at [facility] Chronic fatigue; [facility] er iron deficiency anemia [address] [place], [place] ON[place]OGY [address] [place] [address] [phone] Social History Tobacco Use Types Packs/Day Years [...] place to sleep or slept in a long term (including now)? Sex Assigned at Date Recorded Female 12/24/2020 12:51 PM EDT documented as of this encounter Last Filed Vital Signs Vital Sign Reading [...] Mass Index 26.1 01/27/2022 10:55 AM EDT documented in this encounter Progress Notes Ángel Fischer MD - 01/27/2022 11:00 AM EDT Subjective Patient ID: Carol Keller is 71 y.o. Problem List: 1. Colon cancer, pT3, pN2a A. Presented with anemia, found to be iron deficient. Colonoscopy in 06/2021 - negative CT abd/pelvis 12/15/21 - Impression: 1. Nonobstructing upper (?apple) core lesion of the ascending colon with bulky adenopathy, concerning for primary bowel malignancy with randy metastases 2. Mildly thick walled descending and sigmoid colon with diverticular disease, may be due to muscular hypertrophy of diverticulosis. Advise direct visualization or follow-up imaging to exclude synchronous malignancy. 3. Possible mild urinary bladder wall thickening, may represent incomplete distention versus outflow obstruction or cystitis. Correlate with urinalysis 4. Clustered radiodensities adjacent to bladder base, discussed above, are indeterminate, favored to be incidental. Correlate fo symptoms and medical/surgical history. B. Colonoscopy 12/20/21 - Path ([facility] review) - Colon, right, lesion, ?? biopsy: Colorectal mucosa with high-grade dysplasia/intramucosal adenocarcinoma. Although the findings could well represent the mucosal component of an invasive carcinoma, the sample is too superficial to establish that submucosal invasion is present. C. CT chest 01/10/22 - Impression: 1. Periaortic adenopathy 2. [place]ronodle. fleischner Society follow up recommendation for incidental nodules are not indicated. Follow up per the patient's medical condition. D. CEA 12/20/21 - 281.2 E. 12/30/21 - Laparoscopic right colectomy. Findings: No evidence of peritoneal or hepatic metastasis. Foreshortened mesocolon of ascending colon. Bulky dense lymphadenopathy along ileocolic pedicle. Portion of these nodes were associated with C loop of duodenum. Section including right branch of middle colic artery. Post-anastomotic perfusion assessment with ICG was excellent. Path - SPECIMEN ? Procedure: ?Right hemicolectomy TUMOR ? Tumor Site: ?Right??(ascending) colon ? Histologic Type: ?Adenocarcinoma ? Histologic Type Comments: ?Mucinous features are present. ? Histologic Grade: ?G2: Moderately differentiated ? Tumor Size: ?Greatest dimension (Centimeters): 4.2 cm ? Tumor Deposits: ?Present ? Number of Deposits: ?2 ? Tumor Extension: ?Tumor invades through the muscularis propria into pericolorectal tissue ? Macroscopic Tumor Perforation: ?Not identified ? Lymphovascular Invasion: ?Present ? : ?Small vessel lymphovascular invasion ? Perineural Invasion: ?Not identified ? Tumor Budding: ?Number of tumor buds in one ???hotspot??? field (total number in area = 0.785 mm2): 1 ? : ?Low score (0-4) ? Type of Polyp in Which Invasive Carcinoma Arose: ?None identified ? Treatment Effect: ?No known presurgical therapy MARGINS ? Margins: ? Proximal Margin: ?Uninvolved by invasive carcinoma ? Distal Margin: ?Uninvolved by invasive carcinoma ? Radial or Mesenteric Margin: ?Uninvolved by invasive carcinoma ? Distance of Tumor from Margin: ?2-3 mm ? Other Margin: ?Soft tissue at vascular pedicle ? Margin Status: ?Involved by invasive carcinoma LYMPH NODES ??Number of Lymph Nodes??Involved: ?5 ??Number of Lymph Nodes Examined: ?22 PATHOLOGIC STAGE CLASSIFICATION (pTNM, AJCC 8th Edition) ??Primary Tumor (pT): ?pT3 ??Regional Lymph Nodes (pN): ?pN2a ADDITIONAL FINDINGS ??Additional Pathologic Findings: Adenoma(s) RESULTS OF IMMUNOHISTOCHEMICAL STAINING: Loss of MLH1 and PMS2 and retained expression of MSH2 and MSH6 proteins ?? 2. CLL (chronic lymphocytic leukemia) ? Dx 12/28 w/ WBC 27k P-53, CD38 and zap -70 negative. Cytogenetics 13 deletion (favorable prognosis) Observation only Pneumovax 2014 3. Cerebral infarction, 2017 ? Bilateral MCA territory left>right ?? 4. Pulmonary embolism, 2017 Following eye surgery after she was immobile Treated with TPA and anticoagulation. She continues on eliquis 5. History of SCC (squamous cell carcinoma) of skin 6. S/p surgery for bilateral macular holes 7. SVT (supraventricular tachycardia) S/p ablation 8. GERD (gastroesophageal reflux disease) 9. Diabetes mellitus Diet controlled 10. ALC tear S/p left knee surgery 11. S/p hysterectomy HPI Carol Keller (Betty) is referred for evaluation and management of colon cancer. The historyis summarized above. Anahi is accompanied to clinic today by her son's significant other. She is feeling ok. She is fatigued and SOB and says she is light headed, particularly with position change. She started taking oral iron about two weeks ago, 325 mg of ferrous sulfate every other day, with vitamin C. Her symptoms have improved somewhat. She has some pain on the right side of the abdomen for which she takes tylenol and that helps. The incision has healed well. Her bowel habits are different. She goes 2-3 times per day and says it soft (light and fluffy). Her energy level is low. She lives alone and is managing well. She walks daily. Her appetite is ok. She eats small frequent meals. She has lost 40# in a little over a year. She had problems with diarrhea due to a PPI which resolved after stopping the PPI and her weight has been stable since then. 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 Negative for activity change, appetite change, fever and unexpected weight change. HENT: Negative. Respiratory: Negative. Cardiovascular: Negative. Gastrointestinal: Positive for abdominal pain. Genitourinary: Urinary incontinence Musculoskeletal: Positive for arthralgias. Skin: Negative. Neurological: Positive for numbness (grade 1, 4th and 5th digits of right hand). Hematological: Negative. Psychiatric/Behavioral: Negative. Objective Physical Exam Vitals reviewed. Constitutional: General: She is not in acute distress. HENT: Head: Normocephalic and atraumatic. Mouth/Throat: Pharynx: Oropharynx is clear. No oropharyngeal exudate. Eyes: General: No scleral icterus. Cardiovascular: Rate and Rhythm: Normal rate and regular rhythm. Pulmonary: Effort: Pulmonary effort is normal. Breath sounds: Normal breath sounds. Chest: Breasts: Right: No supraclavicular adenopathy. Left: No supraclavicular adenopathy. Abdominal: General: There is no distension. Palpations: There is no mass. Comments: Incisions well healed Musculoskeletal: General: No swelling. Lymphadenopathy: Cervical: No cervical adenopathy. Upper Body: Right upper body: No supraclavicular adenopathy. Left upper body: No supraclavicular adenopathy. Skin: General: Skin is warm and dry. Findings: No rash. Neurological: General: No focal deficit present. Mental Status: She is alert. Coordination: Coordination normal. Psychiatric: Mood and Affect: Mood normal. Behavior: Behavior normal. CEA 12/20/21 281.2 Assessment and Plan Anahi Keller is 71 yo, with a problem list including good risk CLL which has never required treatment. She is seen for evaluation and management of colon cancer: Moderately differentiated adenocarcinoma with mucinous features; pT3, pN2a, IHC for MMR proteins - Loss of staining for MLH1 and PMS2. A margin termed vascular pedicle margin is positive. We reviewed the diagnosis, prognosis and treatment recommendations. We reviewed that this representsstage III colon cancer. The standard recommendation would be for post-operative chemotherapy. The tumor demonstrates loss of staining for MLH1 and PMS2. Because this finding is associated with resistance to fluoropyrimidine therapy, thre recommendation would be for an oxaliplatin containing regimen, eg Folfox of Capox. In terms of duration of therapy, given the N2a status, if Folfox were given, wouldrecommend 6 months of therapy. If Capox were chosen, 3-6 months would be recommended. How much additional benefit there is to 6 months vs 3 months of therapy is not clear, Given the higher risk nature of the disease based on N2 status, we discussed 6 months of therapy andplan to give Folfox. ? In this regimen, Fluorouracil, Leucovorin and??Oxaliplatin are given day 1 followed by a 46-48 hour infusion of Fluorouracil with cycles repeated every two weeks assuming tolerance and adequate labs. ??Potential side effects were discussed, including nausea and vomiting, decreased appetite, stomatitis, diarrhea, dehydration, myelosuppression with associated risks of bleeding, infection and dose delays, peripheral neuropathy which may be exacerbated by cold exposure but which may be cumulative and permanent even in the absence of cold, laryngeal dysesthesia, fatigue, angina/CO, hypersensitivity reactions and others. ??He was given informational handouts regarding Fluorouracil and Oxaliplatin. ? Given the infusional component of therapy, a mediport is required and??we will make a referral.? There is a clinical trial for patients with dMMR stage III colon cancer, in which pts are randomizedto Folfox with or without atezolizumab. The role of immunotherapy in the adjuvant treatment of stageIII disease is not clear and that is what this trial is designed to test. The margin positivity appears to be an exclusion factor for this study. I spoke with Dr. Shrestha. He is going to speak with pathology to try find out more about this and whether this a true positive margin. He will let me know. She otherwise appears to eligible and would be interested in the study. She met with our research PA, Daylin Gomez about this today and was given an informed consent to take home. Referral to familial cancer program will be made because of the MMR deficiency and her family history. Blood will be drawn today for baseline labs, including a recheck of iron studies as she is wonderingabout IV iron. We will also recheck the CEA and have blood drawn for DPYD to be sure she does not have a variant that would put her at risk for severe fluoropyrimidine toxicity. We discussed that DPYD testing may not be covered by insurance. Given this, she could get charged for this. We estimate thiscost at around $200. She is willing to go ahead with testing and has signed a waiver to this effect which will be scanned in to her chart. We will schedule mediport placement and plan to see her in [facility] after that is done. documented in this encounter Plan of Treatment Upcoming Encounters Date Type Specialty Care Team Description 02/11/2022 Scheduled View Only Hematology and Ángel Fischer, Oncology [facility] DR [facility] [place] 4[address] (Wo rk) 02/11/2022 TH Visit (TeleHealth) Hematology Ángel Kimbrough Oncology [facility] DR [place], [place] 0375 (Wo rk) 02/11/2022 Infusion Hematology and Oncology 02/11/2022 Office Visit Hematology and Jazzy Armendariz R D [facility] HEMATOLOGY AND ONCOLOGY [place], [place] 0[address] (Wo rk) 02/22/2022 TH Visit (TeleHealth) Hematology and Yaquelin Celis Oncology E, [facility] HEMATOLOGY AND ONCOLOGY [place], [place] 0375 (Wo rk) 02/25/2022 Office Visit Hematology Ángel Kimbrough Oncology [facility] ONCOLOGY [place], [place] 0375 (Wo rk) 02/25/2022 Infusion Hematology and Oncology 03/10/2022 Scheduled View Only Obstetrics and Nurse, Julian COLEMAN, implementation architect 03/10/2022 Office Visit Obstetrics and Shazia Whitley, Gynecology [facility] UROGYNECOLOGY [place], [place] 0375 (Wo rk) 03/11/2022 Office Visit Ángel Hill MD [facility] [place] [address] Oncology Alyssa Joseph, [address] MEDICAL ONCOLOGY [place], [place] [id number] 03/11/2022 Infusion Hematology and Oncology 03/25/2022 Office Visit Hematology and Alyssa Joseph Oncology [address] MEDICAL ONCOLOGY [place], [place] [address] (Wo rk) 03/25/2022 Infusion Hematology and Oncology 03/31/2022 Office Visit Hematology and Alan Livingston M D [facility] DR HEMATOLOGY/[place] [address] Oncology Nilam So, [facility] DR HEMATOLOGY/[place] [address] 04/08/2022 Office Visit Hematology and Ángel Fischer MD [facility] [place] [address] Oncology Alyssa Joseph[address] MEDICAL ONCOLOGY [place], [place] [phone] 04/08/2022 Infusion Hematology and Oncology Scheduled Orders Name Type Priority Associated Diagnoses Order S chedule CBC (with Diff) Lab Routine Malignant neoplasm of Lara ry 2 Weeks for 12 ascending colon Occurrences starting 01/27/2022 unti l 01/27/2023 Comprehensive metabolic Lab Routine Malignant neoplas m of Every 2 Weeks for 12 panel (non-fasting) ascending colon Occur rences starting 01/27/2022 unti l 01/27/2023 CEA Lab Routine Malignant neoplasm of Expect ed: 02/10/2022, ascending colon Expires: Scheduled Referrals Name Type Priority Associated Diagnoses Order S chedule Referral to Outpatient Referral Routine Malignant neoplasm Or dered: Familial Cancer of ascending colon 2021 Referral to Outpatient Referral Routine Malignant neoplasm Or dered: General Surgery of ascending colon 2021 documented as of this encounter Results Ferritin (01/27/2022 12:16 PM EDT) athologist Signature Ferritin 39 30 - 400 [facility] ng/mL [facility] Comment: Pediatric reference ranges not verified at [facility], interpret with caution. Reference ranges for females greater garcia n 50 years of age approach values for men, i.e., 30-400 ng/mL. Specimen Anatomical Collection Method Collection Time Receive d Time (Source) Location / / Volume Laterality Blood 01/27/2022 12:16 01/27/2022 PM EDT 12:23 PM EDT Resulting Agency Comment Spec In Lab Ángel Fischer MD CHEMISTRY ORDERABLES Performing Organization Address City/[facility]/ZIP [place] [address] (ABNORMAL) Iron and TIBC (01/27/2022 12:16 PM EDT) P athologist Signature Iron 39 30 - 150 [facility] mcg/dL [facility] TIBC 361 250 - 450 [facility] mcg/dL [facility] Iron Saturation 11 (L) 20 - 50 % [facility] Specimen Anatomical Collection Method Collection Time Receive d Time (Source) Location / / Volume Laterality Blood 01/27/2022 12:16 01/27/2022 PM EDT 12:23 PM EDT Resulting Agency Comment Spec In Lab Ángel Ficsher MD CHEMISTRY ORDERABLES Performing Organization Address City/[facility]/ZIP [place] [address] TSH (01/27/2022 12:16 PM EDT) P athologist Signature TSH 2.48 0.27 - 4.20 [facility] mcIU/mL [facility] Comment: Reference Interval (mcIU/mL): Females: ??First Trimester: 0.23-3.88 ??Second Trimester: 0.22-3.90 ??Third Trimester: 0.44-4.66 Specimen Anatomical Collection Method Collection Time Receive d Time (Source) Location / / Volume Laterality Blood 01/27/2022 12:16 01/27/2022 PM EDT 12:23 PM EDT Resulting Agency Comment Spec In Lab Ángel Fischer MD CHEMISTRY ORDERABLES Performing Organization Address City/[facility]/ZIP [place] [address] DPYD PCR (01/27/2022 12:16 PM EDT) Component Value Ref Test Analysis Performed At [facility] Range Method Time Signature DPYD PCR INDICATION FOR STUDY: DPYD Genotyping [facility] RESULTS: Normal metabolizer, *1/*1 genotype [facility] INTERPRETATION: ??Normal gen otype, with normal expected [...] probes for each varian t: DPYD*2A ??(c.1905+1G>A, [id number]), DPYD*13 (c.1679T>G , [id number]), and DP YD c.2846A>T ([id number]). All variant positions are provided on the [...] Genomics and [employer] Technology (CGAT) at the [facility]. It has not been cleared or approved by the U .S. Food and Drug Administration. The laboratory is regulated under CLIA as qual ified to perform high-complexity testing. This test is used for clinical purposes. It should not be regarded as investigational or for research. REFERENCES: 1. CPIC?? Guideline for Fluoropyrimidines and DPYD. https:// cpicpgx.org/ 2. Kumar gregory al., Clinical Pharmacogenetics Imp lementation Consortium (CPIC) Guideline for Dihydropyrimidine Dehydrogenase Genotype and Fluoropyrimidine Dosin Update. Clin Pharmacol Ther. 2018 Jun;103(2):21 0-216. PMID: [id number] 3. Mars Sparks, Walt Roberts, Yogesh Rapp, et al. Fluorouracil Ther apy and DPYD Genotype. In: Medical Genetics Summaries [Internet]. B vicente MONTES): Formerly [facility] Onit Inf orkstion (); 2011? 2015 3. PMID: [id number] Specimen Anatomical Collection Method Collection Time Receive d Time (Source) Location / / Volume Laterality Blood 01/27/2022 12:16 01/27/2022 1:17 PM EDT PM EDT Resulting Agency Comment Spec In Lab Ángel Fischer MD CHEMISTRY ORDERABLES Performing Organization Address City/[facility] Phon e Number [address] CEA (01/27/2022 12:16 PM EDT) athologist Signature CEA 422.0 ng/mL [facility] Comment: Reference range: ??(20-69 years): Non-smoker: [...] Fischer MD CHEMISTRY ORDERABLES Performing Organization Address City/[facility]/ZIP [place] [address] Comprehensive metabolic panel (non-fasting) (01/27/2022 12:16 PM EDT) P athologist Signature Glucose Lvl 135 65 - 199 [facility] mg/dL [facility] Comment: Diabetes: >=200 mg/dL plus symp toms BUN 15 8 - 18 mg/dL [facility] Creatinine 0.77 0.70 - 1.20 mg/dL [facility] Sodium 142 135 - 145 mmol/L [facility] Potassium 4.1 3.5 - 5.0 mmol/L [facility] Comment: Please note: ??Patients with WBC >100,00 0 may have falsely elevated Potassium levels. ??For accurate Potassium quantif ication in these patients send serum separator tube (gold top) for subsequent determinations. ??Contact the Clinical Chemistry Laboratory if there are any qu estions. Chloride 105 98 - 107 mmol/L [facility] CO2 28 22 - 31 mmol/L [facility] Anion Gap 9 5 - 15 mmol/L [facility] Calcium 9.4 8.5 - 10.5 mg/dL [facility] Total Protein 6.7 6.1 - 8.0 g/dL [facility] Albumin 4.5 3.2 - 5.2 g/dL [facility] AST 22 0 - 30 unit/L [facility] ALT 12 0 - 30 unit/L [facility] Alk Phos 65 35 - 105 unit/L [facility] Total Bilirubin 0.3 0.2 - 1.3 mg/dL [facility] Estimated GFR 82 >=60 mL/min/1.73 m?? [facility] Comment: This patient's estimated GFR was [...] Organization Address City/State/[place] [address] documented in this encounter Visit Diagnoses Diagnosis Malignant neoplasm of ascending colon Chronic fatigue Other malaise and fatigue Other iron deficiency anemia documented in this encounter Care Teams Restrike Hammer Operator Relationship Specialty Start Date End Date Mook Coffey DO PCP - General Family Medicine 02/16/[address] [place] [phone] documented as of this encounter
--- OUTSIDE RECORDS SUMMARY | 2022-02-11 01:07 | XMS_ITS | Encounter Summary ---
:1950 Author Organization [facility] [address] Care Team Providers Name Role Phone Mook Coffey DO Primary Care Provider Encounter Details Date Type Department Care Team Description 02/09/2022 Ancillary Procedure Radiology Library at [facility], Bennie Lehman [facility] [address] [id number] ONCOLOGY [phone] [place], [place] [address] (Wo rk) Social History Tobacco [...] place to sleep or slept in a intermediate (including now)? Sex Assigned at Date Recorded Female 12/24/2020 12:51 PM EDT documented as of this encounter Plan of Treatment Upcoming Encounters Date Type Specialty Care Team Description 02/11/2022 Scheduled View Only Hematology and Ángel Fischer Oncology [facility] ONCOLOGY [place], [place] [address] (Shana hewitt) 02/11/2022 TH Visit (TeleHealth) Hematology Ángel Kimbrough Oncology [facility] ONCOLOGY [place], [place] [address] (Shana hewitt) 02/11/2022 Infusion Hematology and Oncology 02/11/2022 Office Visit Hematology and Jazzy Armendariz R D Oncology [facility]AR HEMATOLOGY AND ONCOLOGY [place], [place] [address] (Shana hewitt) 02/22/2022 TH Visit (TeleHealth) Hematology and Yaquelin Celis Oncology E, [facility] HEMATOLOGY AND ONCOLOGY [place], [place] 0375 (Wo rk) 02/25/2022 Office Visit Hematology and Ángel Fischer Oncology [facility] ONCOLOGY [place], [place] [address] (Wo rk) 02/25/2022 Infusion Hematology and Oncology 03/10/2022 Scheduled View Only Obstetrics and Nurse, Julian COLEMAN, health/safety job titles 03/10/2022 Office Visit Obstetrics and Gutierrez, Shazia Baer, Gynecology [facility] UROGYNECOLOGY [place], [place] [address] (Wo rk) 03/11/2022 Office Visit Hematology and Ángel Fischer MD [facility] [place] [address] Oncology Alyssa Joseph [address] [place] [address] 03/11/2022 Infusion Hematology and Oncology 03/25/2022 Office Visit Hematology and Alyssa Joseph Oncology [address] MEDICAL ONCOLOGY [place], [place] [address] (Wo rk) 03/25/2022 Infusion Hematology and Oncology 03/31/2022 Office Visit Hematology and Alan Livingston M D [facility] DR HEMATOLOGY/[place] [address] Oncology Nilam So [facility] HEMATOLOGY/[place] [address] 04/08/2022 Office Visit Hematology and Ángel Fischer MD [facility] [place] [address] Oncology Alyssa Joseph[address] [place] [address] 04/08/2022 Infusion Hematology and Oncology documented as of this encounter Procedures Procedure Name Priority Date/Time Associated Diagnosis Comme nts FILM LIBRARY Routine 02/09/2022 12:00 AM Results for this STORAGE ONLY CT EDT procedure ar e in CHEST ABDOMEN the results PELVIS section. documented in this encounter Results Film Library- Storage Only CT Chest Abdomen Pelvis (02/09/2022 12:00 AM EDT) Specimen (Source) Anatomical Location Collection Method / Collectio n Time Received Time / Laterality Volume Narrative RAD - 02/10/2022 3:33 PM EDT This exam is auto-finalizing. It's purpo se is for storage only. Ángel Fischer MD IM[employer]az[employer] FILM LIBRARY ORDERABLES Performing Organization Address City/State/ZIP Code Phon e Number [place], [place] documented in this encounter Visit Diagnoses Not on filedocumented in this encounter Care Teams Occupancy Specialist Relationship Specialty Start Date End Date Mook Coffey DO PCP - General Family Medicine 02/16/[address] [place] [phone] documented as of this encounter
--- OUTSIDE RECORDS SUMMARY | 2022-02-11 01:07 | XMS_ITS | Encounter Summary ---
:1950 Author Organization [facility] [place] [address] Care Team Providers Name Role Phone Mook Coffey DO Primary Care Provider Encounter Details Date Type Department Care Team Description 01/06/2022 Orders Only Hematology and Oncology at [facility] Ángel reese MD [facility] D [facility] [place] [address] [place] [address] [phone] (Wo rk) Social History Tobacco Use Types [...] place to sleep or slept in a senior care (including now)? Sex Assigned at Date Recorded Female 12/24/2020 12:51 PM EDT documented as of this encounter Plan of Treatment Upcoming Encounters Date Type Specialty Care Team Description 02/11/2022 Scheduled View Only Hematology and Ángel Fischer Oncology [facility] ONCOLOGY [place], [place] [address] (Shana hewitt) 02/11/2022 TH Visit (TeleHealth) Hematology Ángel Kimbrough Oncology [facility] DR UMNAA [place], [place] [address] (Shana hewitt) 02/11/2022 Infusion Hematology and Oncology 02/11/2022 Office Visit Hematology and Jazzy Armendariz R D Oncology [facility]AR HEMATOLOGY AND ONCOLOGY [place], [place] [address] (Shana hewitt) 02/22/2022 TH Visit (TeleHealth) Hematology and Yaquelin Celis Oncology E, [facility] HEMATOLOGY AND ONCOLOGY [place], [place] [address] (Shana hewitt) 02/25/2022 Office Visit Hematology and Ángel Fischer Oncology [facility] ONCOLOGY [place], [place] [address] (Wo rk) 02/25/2022 Infusion Hematology and Oncology 03/10/2022 Scheduled View Only Obstetrics and Nurse, Julian COLEMAN, line repairer 03/10/2022 Office Visit Obstetrics and Shazia Whitley, Gynecology [facility] UROGYNECOLOGY [place], [place] 0375 (Wo rk) 03/11/2022 Office Visit Hematology and Ángel Fischer MD [facility] [address] On[address]lyss[address] Joseph[address] MEDICAL ONCOLOGY [place], [place] [phone] 03/11/2022 Infusion Hematology and Oncology 03/25/2022 Office Visit Hematology and Alyssa Joseph Oncology [address] ONCOLOGY [place], [place] [phone] (Wo rk) 03/25/2022 Infusion Hematology and Oncology 03/31/2022 Office Visit Hematology and Alan Livingston M D [facility] DR HEMATOLOGY/[place] [address] Oncology Nilam So [facility] HEMATOLOGY/[place] [address] 04/08/2022 Office Visit Hematology and Ángel Fischer MD [facility] [address] Oncology Alyssa Joseph[address] [place] [address] 04/08/2022 Infusion Hematology and Oncology documented as of this encounter Visit Diagnoses Not on filedocumented in this encounter Care Teams Environmental Sampler Relationship Specialty Start Date End Date Mook Coffey DO PCP - General Family Medicine 02/16/[address] [place] [address] [phone] documented as of this encounter
--- OUTSIDE RECORDS SUMMARY | 2022-02-11 01:07 | XMS_ITS | Encounter Summary ---
:1950 Author Organization [facility] [place] [address] Care Team Providers Name Role Phone Mook Coffey DO Primary Care Provider Reason for Visit Reason Comments Macular Hole OS S/P PPV,MP 01/31/20; 2018 Encounter Details Date Type Department Care Team Description 01/17/2022 Office Visit Ophthalmology at [facility] Venkata Swartz, Macular hole, right eye [s/p PPV, MP, gas [July 2016] with CBC]; [facility] 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 [s/p PPV, ERM and ILM peel, SF6 01/05/17 with NNB] [place] [address] CENTER [phone] OPHTHALMOLOGY DEPT [place], [place] [address] Social History Tobacco Use Types Packs/Day Years [...] place to sleep or slept in a half-way (including now)? Sex Assigned at Date Recorded Female 12/24/2020 12:51 PM EDT documented as of this encounter Progress Notes Venkata Page MD - 01/17/2022 3:30 PM EDT ASSESSMENT: 1. Macular hole, right eye [s/p PPV, MP, gas [July 2016] with CBC] 2. 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 [s/p PPV, ERM and ILM peel, SF6 01/05/17 with NNB] s/p PCIOL OU Visual Acuity Visual Acuity (Snellen - Linear) Right Left Dist cc 20/60 +1 20/25 +1 Dist ph cc 20/50 -1 NI Near cc 20/100 20/20 Correction: Glasses OCT: stable. PLAN: Macula/retina stable after mac hole repair OU. Please schedule the following: Follow up retina in 2 years for DFE/OCT OU Sooner PRN I, Dewey Aguust, have performed the documentation for this encounter in the presence of and acting as ascribe for Venkata Page MD. I have seen the patient in person and reviewed the resident's history and I agree with the details as written. The assessment and plan were formulated in discussion with me and I agree with them as documented. Venkata Page MD documented in this encounter Plan of Treatment Upcoming Encounters Date Type Specialty Care Team Description 02/11/2022 Scheduled View Only Hematology and Ángel Fischer Oncology [facility] ONCOLOGY [place] [phone] (Wo rk) 02/11/2022 TH Visit (TeleHealth) Hematology Ángel Kimbrough Oncology [facility] DR UMANA [place], [place] [address] (Wo rk) 02/11/2022 Infusion Hematology and Oncology 02/11/2022 Office Visit Hematology and Jazzy Armendariz R D Oncology [facility] HEMATOLOGY AND ONCOLOGY [place] [address] (Wo rk) 02/22/2022 TH Visit (TeleHealth) Hematology and Yaquelin Celis Oncology E, [facility] HEMATOLOGY AND ONCOLOGY [place] [address] (Wo rk) 02/25/2022 Office Visit Hematology Ángel Kimbrough Oncology [facility] DR UMANA [place], [place] [address] (Wo rk) 02/25/2022 Infusion Hematology and Oncology 03/10/2022 Scheduled View Only Obstetrics and Nurse, Oboneal II, food beverage manager 03/10/2022 Office Visit Obstetrics and Shazia Whitley Gynecology SALES ADVISOR [facility] UROGYNECOLOGY [place], [place] [address] (Wo rk) 03/11/2022 Office Visit Hematology and Ángel Fischer MD [facility] [address] Oncology Alyssa Joseph[address] MEDICAL ONCOLOGY [place], [place] [phone] 03/11/2022 Infusion Hematology and Oncology 03/25/2022 Office Visit Hematology and Alyssa Joseph, Oncology [address] [address] (Wo rk) 03/25/2022 Infusion Hematology and Oncology 03/31/2022 Office Visit Hematology and Alan Livingston M D [facility] DR HEMATOLOGY/[place] [address] [facility] [address] 04/08/2022 Office Visit Hematology and Ángel Fischer MD [facility] [place] [address] Oncology Alyssa Joseph[address] MEDICAL ONCOLOGY [place], [place] [phone] 04/08/2022 Infusion Hematology and Oncology documented as of this encounter Procedures Procedure Name Priority Date/Time Associated Diagnosis Comme nts OCT RETINA - OU - Routine 01/17/2022 5:13 PM Macular hole, rig ht Results for this BOTH EYES EDT eye [s/p PPV, MP, procedure are in gas [July 2016] the results with CBC] section. 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 [s/p PPV, ERM and ILM peel, SF6 01/05/17 with NNB] documented in this encounter Results OCT Retina - OU - Both Eyes [...] Venkata Page MD OPHTHALMOLOGY SERVICES ORDER MELYSSA documented in this encounter Visit Diagnoses Diagnosis Macular hole, right eye [s/p PPV, MP, ga s [July 2016] with CBC] Macular cyst, hole, or pseudohole of ret deep 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 [s/p PPV, ERM and ILM peel, SF6 01/05/17 with NNB] documented in this encounter Care Teams Wholesale Agronomist Relationship Specialty Start Date End Date Mook Coffey DO PCP - General Family Medicine 02/16/18 [address] [place] [phone] documented as of this encounter
--- OUTSIDE RECORDS SUMMARY | 2022-02-11 01:07 | XMS_ITS | Encounter Summary ---
:1950 Author Organization [facility] [place] [address] Care Team Providers Name Role Phone Mook Coffey DO Primary Care Provider Encounter Details Date Type Department Care Team Description 02/08/2022 External Results Medical Records Provider, Scanning [facility] [place] [address] Social History Tobacco Use Types Packs/Day Years [...] place to sleep or slept in a jail (including now)? Sex Assigned at Date Recorded Female 12/24/2020 12:51 PM EDT documented as of this encounter Plan of Treatment Upcoming Encounters Date Type Specialty Care Team Description 02/11/2022 Scheduled View Only Hematology and Ángel Fischer Oncology [facility] ONCOLOGY [place] [phone] (Wo rk) 02/11/2022 TH Visit (TeleHealth) Ángel Hill Oncology [facility] DR UMANA [place], [place] [address] (Wo rk) 02/11/2022 Infusion Hematology and Oncology 02/11/2022 Office Visit Hematology and Jazzy Armendariz R D Oncology [facility] HEMATOLOGY AND ONCOLOGY [place], [place] [address] (Wo rk) 02/22/2022 TH Visit (TeleHealth) Hematology and Yaquelin Celis Oncology E, [facility] HEMATOLOGY AND ONCOLOGY [place], [place] [address] (Wo rk) 02/25/2022 Office Visit nÁgel Hill Oncology [facility] DR UMANA [place], [place] [address] (Wo rk) 02/25/2022 Infusion Hematology and Oncology 03/10/2022 Scheduled View Only Obstetrics and Nurse, Julian COLEMAN, account services representative 03/10/2022 Office Visit Obstetrics and Shazia Whitley, Gynecology [facility] UROGYNECOLOGY [place], [place] [address] (Wo rk) 03/11/2022 Office Visit Hematology and Ángel Fischer MD [facility] [place] [address] Oncology Alyssa Joseph[address] ONCOLOGY [place], [place] [phone] 03/11/2022 Infusion Hematology and Oncology 03/25/2022 Office Visit Hematology and Alyssa Joseph, Oncology [address] ONCOLOGY [place], [place] [phone] (Wo rk) 03/25/2022 Infusion Hematology and Oncology 03/31/2022 Office Visit Hematology and Alan Livingston M D [facility] DR HEMATOLOGY/[place] [address] Oncology Nilam So [facility] HEMATOLOGY/[place] [address] 04/08/2022 Office Visit Hematology and nÁgel Fischer MD [facility] [address] Oncology Alyssa Joseph[address] ONCOLOGY [place], [place] [phone] 04/08/2022 Infusion Hematology and Oncology documented as of this encounter Procedures Procedure Name Priority Date/Time Associated Diagnosis Comme nts SURGICAL PATHOLOGY Routine 02/08/2022 Results f or this SCAN procedure are i n the results section . documented in this encounter Results Scan Doc: Surgical Pathology (02/08/2022) Narrative This result has an attachment that is no t available. Ángel Fischer MD MEDIA MGR SCAN EXT ORDR/RSLT documented in this encounter Visit Diagnoses Not on filedocumented in this encounter Care Teams Licensed Direct Entry Midwife Relationship Specialty Start Date End Date Mook Coffey DO PCP - General Family Medicine 02/16/[address] [place] [phone] documented as of this encounter
--- OUTSIDE RECORDS SUMMARY | 2022-02-11 01:07 | XMS_ITS | Encounter Summary ---
:1950 Author Organization [facility] Address [facility] [address] [place] [address] Care Team Providers Name Role Phone Mook Coffey DO Primary Care Provider Reason for Visit Reason Onset Date Comments Labs Only 05/27/2021 Encounter Details Date Type Department Care Team Description 05/27/2021 Telephone Hematology/Oncology at Maddie Artaega RN Labs Only [address] [phone] Social History Tobacco Use Types Packs/Day Years [...] place to sleep or slept in a prison (including now)? Sex Assigned at Date Recorded Female 12/24/2020 12:51 PM EDT documented as of this encounter Miscellaneous Notes Telephone Encounter - Maddie Richardson RN - 05/27/2021 2:[address] Livingston reviewed pt's labs and did not feel her issue was from CLL he would like her to follow up with PCP. She agrees with plan. documented in this encounter Plan of Treatment Upcoming Encounters Date Type Specialty Care Team Description 02/11/2022 Scheduled View Only Hematology and Ángel Fischer Oncology [facility] DR UMANA [place], [place] [address] (Shana hewitt) 02/11/2022 TH Visit (TeleHealth) Ángel Hill Oncology [facility] DR UMANA [place], [place] [address] (Shana hewitt) 02/11/2022 Infusion Hematology and Oncology 02/11/2022 Office Visit Hematology and Jazzy Armendariz R D Oncology [facility] HEMATOLOGY AND ONCOLOGY [place], [place] [address] (Wo rk) 02/22/2022 TH Visit (TeleHealth) Hematology and Yaquelin Celis Oncology E, [facility] HEMATOLOGY AND [place]OGY [place], [place] [address] (Wo rk) 02/25/2022 Office Visit Hematology Ángel Kimbrough Oncology [facility] ONCOLOGY [place], [place] [address] (Wo rk) 02/25/2022 Infusion Hematology and Oncology 03/10/2022 Scheduled View Only Obstetrics and Nurse, Julian COLEMAN, tufting machine operator single needle 03/10/2022 Office Visit Obstetrics and Shazia Whitley, Gynecology [facility] UROGYNECOLOGY [place], [place] [address] (Wo rk) 03/11/2022 Office Visit Hematology and Ángel Fischer MD [facility] [place] [address] Oncology Alyssa Joseph[address] MEDICAL ONCOLOGY [place], [place] [address] 03/11/2022 Infusion Hematology and Oncology 03/25/2022 Office Visit Hematology and Alyssa Joseph Oncology [address] MEDICAL ONCOLOGY [place], [place] [address] (Wo rk) 03/25/2022 Infusion Hematology and Oncology 03/31/2022 Office Visit Hematology and Alan Livingston M D [facility] HEMATOLOGY/[place] [address] [facility]cology [facility] [address] 04/08/2022 Office Visit Hematology and Ángel Fischer MD [facility] [place] [address] Oncology Alyssa Joseph, [address] [place] [address] 04/08/2022 Infusion Hematology and Oncology documented as of this encounter Procedures Procedure Name Priority Date/Time Associated Diagnosis Comme nts CBC (WITH DIFF) Routine 05/27/2021 Results for this procedure are in the resu lts section. documented in this encounter Results CBC (with Diff) (05/27/2021) P athologist Signature WBC 117.4 Hemoglobin 13.9 Hematocrit 47.4 Platelets 167 Neutr Abs (ANC) 4.69 Creatinine 1 Specimen (Source) Anatomical Location Collection Method / Collectio n Time Received Time / Laterality Volume Blood 05/27/2021 Historical Provider HEMATOLOGY ORDERABLES documented in this encounter Visit Diagnoses Not on filedocumented in this encounter Care Teams Aircraft Stress Analyst Relationship Specialty Start Date End Date Mook Coffey DO PCP - General Family Medicine 02/16/[address] [place] [phone] documented as of this encounter
--- OUTSIDE RECORDS SUMMARY | 2022-02-11 01:07 | XMS_ITS | Encounter Summary ---
:1950 Author Organization [facility] Address [address] [address] Care Team Providers Name Role Phone Mook Coffey DO Primary Care Provider Reason for Visit Reason Onset Date Comments Abnormal Lab 02/09/2022 Critical Encounter Details Date Type Department Care Team Description 02/09/2022 Telephone Hematology/Oncology at [facility] (Critical ) [facility] Navneet Isaac RN [address] [place] [phone] Social History Tobacco Use Types Packs/Day Years [...] place to sleep or slept in a fpc (including now)? Sex Assigned at Date Recorded Female 12/24/2020 12:51 PM EDT documented as of this encounter Miscellaneous Notes Telephone Encounter - Navneet Burden RN - 02/09/2022 8:36 AM EDT [facility] lab called to report critical WBC 68.[address] Fischer and Dr Livingston made aware. Pt has CLL and colon cancer. documented in this encounter Plan of Treatment Upcoming Encounters Date Type Specialty Care Team Description 02/11/2022 Scheduled View Only Hematology and Ángel Fischer, Oncology [facility] DR [address], [place] [address] (Shana hewitt) 02/11/2022 TH Visit (TeleHealth) Hematology Ángel Kimbrough Oncology [facility] DR [place], [place] [address] (Shana hewitt) 02/11/2022 Infusion Hematology and Oncology 02/11/2022 Office Visit Hematology and Jazzy Armendariz, R Katarina Oncology [facility] DRIVE HEMATOLOGY AND ONCOLOGY [place], [place] [address] (Wo rk) 02/22/2022 TH Visit (TeleHealth) Hematology and Yaquelin Celis Oncology E, [facility] HEMATOLOGY AND ONCOLOGY [place], [place] [address] (Wo rk) 02/25/2022 Office Visit Hematology and Ángel Fischer, Oncology [facility] ONCOLOGY [place], [place] [address] (Wo rk) 02/25/2022 Infusion Hematology and Oncology 03/10/2022 Scheduled View Only Obstetrics and Nurse, Julian COLEMAN, high school auto repair teacher 03/10/2022 Office Visit Obstetrics and Shazia Whitley Gynecology [facility] UROGYNECOLOGY [place], [place] 0375 (Wo rk) 03/11/2022 Office Visit Hematology and Ángel Fischer MD [facility] [place] [address] Oncology Alyss[address] Joseph[address] MEDICAL ONCOLOGY [place], [place] [phone] 03/11/2022 Infusion Hematology and Oncology 03/25/2022 Office Visit Hematology and Alyssa Joseph, Oncology [address] MEDICAL ONCOLOGY [place], [place] [address] (Wo rk) 03/25/2022 Infusion Hematology and Oncology 03/31/2022 Office Visit Hematology and Alan Livingston M D [facility] HEMATOLOGY/[place] [address] Oncology Nilam So, [facility] DR HEMATOLOGY/[place] [address] 04/08/2022 Office Visit Hematology and Ángel Fischer MD [facility] [place] [address] [address] MEDICAL ONCOLOGY [place], [place] [phone] 04/08/2022 Infusion Hematology and Oncology documented as of this encounter Visit Diagnoses Not on filedocumented in this encounter Care Teams Automotive Machinist Relationship Specialty Start Date End Date Mook Coffey DO PCP - General Family Medicine 02/16/[address] [place] [phone] documented as of this encounter
--- OUTSIDE RECORDS SUMMARY | 2022-02-11 01:07 | XMS_ITS | Encounter Summary ---
:1950 Author Organization [facility] [place] [address] Care Team Providers Name Role Phone Mook Coffey DO Primary Care Provider Encounter Details Date Type Department Care Team Description 01/27/2022 Hospital Encounter Hematology and Other i mara deficiency anemia; Oncology at [facility] Malignant neoplasm of ascend ing colon; [facility] [place] [address] Social History Tobacco Use Types Packs/Day [...] PM EDT documented as of this encounter Medications at Time of Discharge Medication Sig Dispensed Refills Start Date End Date ferrous sulfate 325 mg (65 Take 325 mg by mouth 0 mg iron) Tablet daily. psyllium husk, with sugar, Take by mouth. 0 (Metamucil Free) 3 gram/7 gram Powder acetaminophen (TYLENOL) 650 Take 650 mg by mouth 0 mg Tablet Sustained Release every 8 hours as needed for Pain. Do not exceed 6 tabs in 24 hours calcium carbonate (Tums) Take 1 tablet by 0 200 mg calcium (500 mg) mouth daily. Tablet, Chewable Ventolin HFA 90 as needed. 0 11/30/2020 mcg/actuation HFA Aerosol Inhaler diphenoxylate-atropine 4 times daily as 0 (Lomotil) 2.5-0.025 mg needed. Tablet temazepam (Restoril) 15 mg Take 15 mg by mouth 0 Capsule nightly as needed for Sleep. cyclobenzaprine (FLEXERIL) 1 9 10 mg Tablet magnesium 250 mg Tablet Take 133 mg by 0 mouth. nystatin (MYCOSTATIN) Apply topically 2 60 g 1 019 Powder times daily. apixaban (Eliquis) 2.5 mg Take 2.5 mg by mouth 0 Tablet 2 times daily. glucosamine sulfate 500 mg Take 500 mg by mouth 0 Tablet daily. Green Tea Extract 500 mg Take 500 mg by mouth 0 Cap daily. melatonin 3 mg Tab Take 3 mg by mouth 0 nightly as needed. multivitamin capsule Take 1 capsule by 0 mouth daily. cholecalciferol, Vitamin Take 2,000 mg by 0 D3, 50 mcg (2,000 unit) mouth daily. Capsule documented as of this encounter Plan of Treatment Upcoming Encounters Date Type Specialty Care Team Description 02/11/2022 Scheduled View Only Hematology Ángel Kimbrough Oncology [facility] ONCOLOGY [place] [id number] (Wo rk) 02/11/2022 TH Visit (TeleHealth) Hematology Ángel Kimbrough Oncology [facility] DR UMANA [place], [place] [address] (Wo rk) 02/11/2022 Infusion Hematology and Oncology 02/11/2022 Office Visit Hematology and Jazzy Armendariz R D Oncology [facility]AR HEMATOLOGY AND ONCOLOGY [place] [phone] (Wo rk) 02/22/2022 TH Visit (TeleHealth) Hematology and Yaquelin Celis Oncology [facility] HEMATOLOGY AND ONCOLOGY [place] [address] (Wo rk) 02/25/2022 Office Visit Ángel Hill Oncology [facility] DR UMANA [place], [place] [address] (Wo rk) 02/25/2022 Infusion Hematology and Oncology 03/10/2022 Scheduled View Only Obstetrics and Nurse, Oboneal II, phy therapist 03/10/2022 Office Visit Obstetrics and Shazia Whitley, Gynecology ALARM INSTALLER [facility] UROGYNECOLOGY [place], [place] [address] (Wo rk) 03/11/2022 Office Visit Ángle Hill MD [facility] [place] [address] Oncology Alyssa Joseph[address] MEDICAL ONCOLOGY [place], [place] [phone] 03/11/2022 Infusion Hematology and Oncology 03/25/2022 Office Visit Hematology and Alyssa Joseph, Oncology [address] MEDICAL ONCOLOGY [place], [place] [phone] (Wo rk) 03/25/2022 Infusion Hematology and Oncology 03/31/2022 Office Visit Hematology and Alan Livingston M D [facility] DR HEMATOLOGY/[place] [address] [facility]cology [facility] [address] 04/08/2022 Office Visit Hematology and Ángel Fischer MD [facility] [place] [address] Oncology Alyss[address] MEDICAL ONCOLOGY [place], [place] [phone] 04/08/2022 Infusion Hematology and Oncology documented as of this encounter Procedures Procedure Name Priority Date/Time Associated Comments Diagnosis DPYD PCR Routine 01/27/2022 12:16 Malignant neoplasm Resul ts for this PM EDT of ascending colon procedure are in the results section. SCAN, PERIPHERAL BLOOD Routine 01/27/2022 12:16 R esults for this PM EDT procedure are i n the results section. HEMOGRAM Routine 01/27/2022 12:16 Malignant neoplasm Resul ts for this PM EDT of ascending colon procedure are in the results section. DIFFERENTIAL, Routine 01/27/2022 12:16 Malignant neoplasm Resu lts for this AUTOMATED PM EDT of ascending colon procedure are in the results section. HC IRON BINDING Routine 01/27/2022 12:16 Other iron Results for this CAPACITY PM EDT deficiency anemia procedure are in the results section. HC CBC,PLT & AUTO DIFF Routine 01/27/2022 12:16 Malignant neop lasm PM EDT of ascending colon HC THYROID STIMULATING Routine 01/27/2022 12:16 Malignant neop lasm Results for this HORMONE, SERUM PM EDT of ascending col on procedure are in Chronic fatigue the results section. HC FERRITIN, SERUM Routine 01/27/2022 12:16 Other iron Resul ts for this PM EDT deficiency anemia procedure are in the results section. HC CARCINO-EMBRYONIC Routine 01/27/2022 12:16 Malignant neopla sm Results for this AG ASSAY PM EDT of ascending colon procedure are in the results section. COMPREHENSIVE Routine 01/27/2022 12:16 Malignant neoplasm Resu lts for this METABOLIC PANEL PM EDT of ascending colon proced ure are in (NON-FASTING) the results section. documented in this encounter Results Scan, Peripheral Blood (01/27/2022 12:16 PM EDT) [facility] Method Time Signature Plat Estimate Normal [facility] RBC Morphology Abnormal [facility] Hypochromia Slight [facility] Ovalocytes 1-5 /HPF [facility] Tear Drop Cells 1-5 /HPF [facility] Smudge Cells Present [facility] Specimen Anatomical Collection Method Collection Time Receive d Time (Source) Location / / Volume Laterality Blood 01/27/2022 12:16 01/27/2022 PM EDT 12:23 PM EDT Resulting Agency Comment Spec In Lab Ángel Fischer MD HEMATOLOGY ORDERABLES Performing Organization Address City/State/ZIP [place] [address] (ABNORMAL) Differential, Automated (01/27/2022 12:16 PM EDT) [facility] Method Time Signature Neutrophils % 8.9 % [facility] Neutr Abs (ANC) 7.99 (H) 1.70 - [facility] 6.10 [facility] x10(3)/[facility] L LABORATORY Lymphocytes % 89.6 % [facility] Lymphocytes Abs 80.6 (H) 0.9 - 3.2 [facility] x10(3)/[facility] LABORATORY Monocytes % 0.7 % [facility] Monocyte Abs 0.7 0.3 - 0.9 [facility] x10(3)/[facility] LABORATORY Eosinophils % 0.1 % [facility] Eosinophils Abs 0.1 0.0 - 0.4 [facility] x10(3)/[facility] LABORATORY Basophils % 0.4 % [facility] Basophils Abs 0.4 (H) 0.0 - 0.1 [facility] x10(3)/[facility] LABORATORY Immature Gran % 0.30 % [facility] Comment: Immature granulocytes(IG's)percentage an d absolute count will include metamyelocytes, myelocytes, and promyelo cytes. Blood smears from CBCs yielding IG's will be scanned manually for concor dance. If this scan disagrees with the automated IG or if promyelocytes are not ed, a manual differential will be performed. Claudia Gran Abs 0.28 (H) 0.00 - 0.04 x10(3)/[facility] LABORATORY Specimen Anatomical Collection Method Collection Time Receive d Time (Source) Location / / Volume Laterality Blood 01/27/2022 12:16 01/27/2022 PM EDT 12:23 PM EDT Resulting Agency Comment Spec In Lab Ángel Fischer MD HEMATOLOGY ORDERABLES Performing Organization Address City/State/ZIP [place] [address] (ABNORMAL) Hemogram (01/27/2022 12:16 PM EDT) [facility] gist Method Time Signature WBC 90.0 4.0 - 9.5 [facility] ([facility] x[facility](3[facility] LABORATORY RBC 4.39 4.00 - [facility] 5.21 [facility] x10(6)/[facility] LABORATORY Hemoglobin 11.0 (L) 11.7 - [facility] 15.5 g/dL [facility] Hematocrit 38.2 35.7 - [place] 45.8 % [facility] MCV 87.0 82.6 - [facility] 94.4 [facility] LABORATORY MCH 25.1 (L) 27.1 - [place] [place] 32.0 pg [facility] MCHC 28.8 (L) 31.7 - [facility] 35.0 g/dL [facility] Platelets 244 145 - 357 [facility] x10(3)/[facility] LABORATORY RDWSD 50.0 (H) 37.0 - [place] 46.0 [facility] LABORATORY RDWCV 16.3 (H) 11.5 - [facility] 14.1 % [facility] MPV 10.8 7.6 - 12.9 [facility] LABORATORY nRBC % Auto 0.0 % [facility] nRBC Abs Auto 0.000 0.000 - [facility] 0.000 [facility] x10(3)/[facility] LABORATORY Specimen Anatomical Collection Method Collection Time Receive d Time (Source) Location / / Volume Laterality Blood 01/27/2022 12:16 01/27/2022 PM EDT 12:23 PM EDT Resulting Agency Comment Spec In Lab Ángel Fischer MD HEMATOLOGY ORDERABLES Performing Organization Address City/State/ZIP Code Phon e Number [place] [id number] [address]OS[address] LAB[address]ORY [address] Comprehensive metabolic panel (non-fasting) (01/27/2022 12:16 PM EDT) athologist Signature Glucose Lvl 135 65 - 199 [facility] mg/dL [facility] Comment: Diabetes: >=200 mg/dL plus symp toms BUN 15 8 - 18 mg/dL [facility] Creatinine 0.77 0.70 - 1.20 mg/dL [facility]ORY Sodium 142 135 - 145 mmol/L [facility] Potassium 4.1 3.5 - 5.0 mmol/L [facility] Comment: Please note: ??Patients with WBC >100,00 0 may have falsely elevated Potassium levels. ??For accurate Potassium quantif ication in these patients send serum separator tube (gold top) for subsequent determinations. ??Contact the Clinical Chemistry Laboratory if there are any qu estions. Chloride 105 98 - 107 mmol/L [facility] CO2 28 22 - 31 mmol/L [facility] Anion Gap 9 5 - 15 mmol/L [facility] Calcium 9.4 8.5 - 10.5 mg/dL [facility] Total Protein 6.7 6.1 - 8.0 g/dL [facility] Albumin 4.5 3.2 - 5.2 g/dL [facility] AST 22 0 - 30 unit/L [facility] ALT 12 0 - 30 unit/L [facility] Alk Phos 65 35 - 105 unit/L [facility] Total Bilirubin 0.3 0.2 - 1.3 mg/dL [facility] Estimated GFR 82 >=60 mL/min/1.73 m?? [facility] Comment: This patient's estimated [...] Organization Address City/State/ZIP [place] [address] CEA (01/27/2022 12:16 PM EDT) P athologist Signature CEA 422.0 ng/mL [facility] Comment: Reference range: ??(20-69 [...] Organization Address City/State/ZIP [place] [address] DPYD PCR (01/27/2022 12:16 PM EDT) Component Value Ref Test Analysis Performed At Patholo gist Range Method Time Signature DPYD PCR INDICATION FOR STUDY: DPYD Genotyping [facility] RESULTS: Normal metabolizer, *1/*1 genotype [facility] INTERPRETATION: ??Normal gen otype, with normal expected [...] probes for each varian t: DPYD*2A ??(c.1905+1G>A, [id number]), DPYD*13 (c.1679T>G , [id number]), and DP YD c.2846A>T ([id number]). All variant positions are provided on the [...] Genomics and Advanced Technology (CGAT) at the [facility]. It has not been cleared or approved [...] Clin Pharmacol Ther. 2018 Jun;103(2):21 0-216. PMID: [id number] 3. Mars Sparks, Walt Roberts, Yogesh Rapp, et al. Fluorouracil Ther apy and DPYD Genotype. In: Medical Genetics Summaries [Internet]. B vicente MONTES): [employer] for Sidelines Inf orthe [facility] ([place]); 2011? 2015Mar 24. PMID: [id number] Specimen Anatomical Collection Method Collection Time Receive d Time (Source) Location / / Volume Laterality Blood 01/27/2022 12:16 01/27/2022 1:17 PM EDT PM EDT Resulting Agency Comment Spec In Lab Ángel Fischer MD CHEMISTRY ORDERABLES Performing Organization Address City/State/ZIP [place] [address] TSH (01/27/2022 12:16 PM EDT) P athologist Signature TSH 2.48 0.27 - 4.20 [facility] BOBO mcIU/mL [facility] Comment: Reference Interval (mcIU/mL): Females: ??First Trimester: 0.23-3.88 ??Second Trimester: 0.22-3.90 ??Third Trimester: 0.44-4.66 Specimen Anatomical Collection Method Collection Time Receive d Time (Source) Location / / Volume Laterality Blood 01/27/2022 12:16 01/27/2022 PM EDT 12:23 PM EDT Resulting Agency Comment Spec In Lab Ángel Fischer MD CHEMISTRY ORDERABLES Performing Organization Address City/[facility]/[place] [address] (ABNORMAL) Iron and TIBC (01/27/2022 12:16 PM EDT) P athologist Signature Iron 39 30 - 150 [facility] BOBO mcg/dL [facility] TIBC 361 250 - 450 [facility] m[facility]dL [facility] Iron Saturation 11 (L) 20 - 50 % [facility] Specimen Anatomical Collection Method Collection Time Receive d Time (Source) Location / / Volume Laterality Blood 01/27/2022 12:16 01/27/2022 PM EDT 12:23 PM EDT Resulting Agency Comment Spec In Lab Ángel Fischer MD CHEMISTRY ORDERABLES Performing Organization Address City/[facility]/[place]IP [place] [address] Ferritin (01/27/2022 12:16 PM EDT) athologist Signature Ferritin 39 30 - 400 [facility] ng/mL [facility] Comment: Pediatric reference ranges not verified at [facility], interpret with caution. Reference ranges for females [...] Organization Address City/State/[place] [address] documented in this encounter Visit Diagnoses Diagnosis Other iron deficiency anemia Malignant neoplasm of ascending colon Chronic fatigue Other malaise and fatigue documented in this encounter Care Teams Clip On Sunglasses Assembler Relationship Specialty Start Date End Date Mook Coffey DO PCP - General Family Medicine 02/16/[address] [place] [phone] documented as of this encounter
--- OUTSIDE RECORDS SUMMARY | 2022-02-11 01:07 | XMS_ITS | Encounter Summary ---
:1950 Author Organization [facility] [place] [address] Care Team Providers Name Role Phone Mook Coffey DO Primary Care Provider Encounter Details Date Type Department Care Team Description 01/13/2022 Hospital Encounter Laboratory [facility] [place] [address] Social History Tobacco Use Types Packs/Day [...] place to sleep or slept in a custodial (including now)? Sex Assigned at Date Recorded Female 12/24/2020 12:51 PM EDT documented as of this encounter Medications at Time of Discharge Medication Sig Dispensed Refills Start Date End Date acetaminophen (TYLENOL) 650 Take 650 mg by [...] View Only Hematology and Ángel Fischer Oncology [facility] ONCOLOGY [place], [place] [address] (Wo rk) 02/11/2022 TH Visit (TeleHealth) Hematology Ángel Kimbrough Oncology [facility] DR UMANA [place], [place] [address] (Wo rk) 02/11/2022 Infusion Hematology and Oncology 02/11/2022 Office Visit Hematology and Jazzy Armendariz R D [facility] CESAR HEMATOLOGY AND ONCOLOGY [place], [place] [address] (Wo rk) 02/22/2022 TH Visit (TeleHealth) Hematology and Yaquelin Celis Oncology E, [facility] HEMATOLOGY AND ONCOLOGY [place], [place] [address] (Wo rk) 02/25/2022 Office Visit Ángel Hill Oncology [facility] DR UMANA [place], [place] [address] (Wo rk) 02/25/2022 Infusion Hematology and Oncology 03/10/2022 Scheduled View Only Obstetrics and NurseJulian II, senior sql server dba 03/10/2022 Office Visit Obstetrics and Shazia Whitley, Gynecology [facility] UROGYNECOLOGY [place], [place] [address] (Wo rk) 03/11/2022 Office Visit Ángel Hill MD [facility] [place] [address] Oncology Alyssa Joseph[address] [place] [address] 03/11/2022 Infusion Hematology and Oncology 03/25/2022 Office Visit Hematology and Alyssa Joseph, Oncology [address] [place] [address] (Wo rk) 03/25/2022 Infusion Hematology and Oncology 03/31/2022 Office Visit Hematology and Alan Livingston M D [facility] DR HEMATOLOGY/[place] [address] Oncology Nilam So, [facility] DR HEMATOLOGY/[place] [address] 04/08/2022 Office Visit Hematology and Ángel Fischer MD [facility] [place] [address] Oncology Alyssa Joseph[address] MEDICAL ONCOLOGY [place], [place] [phone] 04/08/2022 Infusion Hematology and Oncology documented as of this encounter Procedures Procedure Name Priority Date/Time Associated Diagnosis Comme [facility] SURGICAL PATHOLOGY Routine 01/13/2022 10:30 AM Steff nolen for this REPORT EDT procedure are i n the results section. documented in this encounter Results Surgical Pathology Report (01/13/2022 10:30 AM EDT) Component Value Ref Test Analysis Performed At [facility] Method Time Signature Surgical [id number] ? Location: [facility] Report The signing pathologist has (i) examined the relevant preparation(s) for the [facility] specimen(s) and (ii) rendered or confirmed the diagnosis(es) . HOSPITAL LABORATORY . ?Surgic al Pathology DIAGNOSIS CONSULTATION CASE Outside slide(s) labeled [id number], collection date 2. Colon, right, lesion, ?? 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 Although the findings could well represe nt the mucosal component of an invasive carcinoma, the sample is too superficial to establish that submucosa l invasion is present. Electronically signed by: ?Jaki Nicole MD Verified: ??01/13/2022 18:16 ??Pathologist Performed at: ??-[facility] Dept. [place], [place], [place] SPECIMEN(S) SUBMITTED CONSULTATION CASE A - 2 slide(s) labeled [id number], collection date 12/20/2021. [id number] Report to: [facility] Surgical Pathology Department [facility], 2nd Floor [address] [place], [place] ??[address] CLINICAL INFORMATION Right colon lesion SPECIMEN PROCESSING _ pathology slide(s) are rev iewed. ??Refer to Diagnosis and Specimen Submitted for specific case information. For the full text of the _ r eport(s) please refer to Non- Documentation Pathology in the electronic health record (eDH). Specimen (Source) Anatomical Collection Method Collection Time Re ceived Time Location / / Volume Laterality 01/13/2022 10:30 AM EDT Ángel Fischer MD PATHOLOGY/CYTOLOGY ORDERABLE S Performing Organization Address City/State/[facility] Code Phon e Number [address] documented in this encounter Visit Diagnoses Not on filedocumented in this encounter Care Teams Anatomy And Physiology Instructor Relationship Specialty Start Date End Date Mook Coffey DO PCP - General Family Medicine 02/16/[address] [place] [phone] documented as of this encounter
--- OUTSIDE RECORDS SUMMARY | 2022-02-11 01:07 | XMS_ITS | Encounter Summary ---
:1950 [address] [facility] [place] [address] Care Team Providers Name Role Phone Mook Coffey DO Primary Care Provider Reason for Visit Reason Comments Pessary Check Encounter Details Date Type Department Care Team Description 09/07/2021 Office Visit Obstetrics and Nakul Prater, Pessalyson maintenance Gynecology [facility] [place] [address] [place] [address] [place] [address] [phone] (Wo rk) Social History Tobacco Use Types [...] to sleep or slept in a senior living (including now)? Sex Assigned at Date Recorded Female 12/24/2020 12:51 PM EDT documented as of this encounter Last Filed Vital Signs Vital Sign Reading Time Taken Comments Blood Pressure 141/69 09/07/2021 1:18 PM EDT Pulse 68 09/07/2021 1:18 PM EDT Temperature 36.3 ??C (97.4 ??F) 09/07/2021 1:18 PM EDT Respiratory Rate 16 09/07/2021 1:18 PM EDT Oxygen Saturation 99% 09/07/2021 1:18 PM EDT Inhaled Oxygen Concentration - - Weight 74.4 kg (164 lb) 09/07/2021 1:18 PM EDT Height 163.2 cm (5' 4.25) 09/07/2021 1:18 PM EDT Body Mass Index 27.93 09/07/2021 1:18 PM EDT documented in this encounter Progress Notes Shazia Whitley APRN - 09/07/2021 2:00 PM EDT Female Pelvic Medicine and Reconstructive Surgery Pessary Check Patient Active Problem List Diagnosis Code ??? CLL (chronic lymphocytic leukemia) C91.10 ??? SVT (supraventricular tachycardia) I47.1 ??? GERD (gastroesophageal reflux disease) K21.9 ??? Diabetes mellitus E11.9 ??? Macular pucker, right eye H35.371 ??? 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 AK (actinic keratosis) L57.0 ??? History of SCC (squamous cell carcinoma) of skin Z85.828 ??? Pulmonary embolism I26.99 ??? Cerebral infarction I63.9 ??? On anticoagulant therapy Z79.01 ??? Seborrheic keratosis L82.1 ??? Mixed incontinence N39.46 ??? Pelvic organ prolapse quantification stage 3 cystocele N81.10 ??? 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 Pessary maintenance Z46.89 SUBJECTIVE: Ms. Keller returns for a pessary check. She denies: vaginal bleeding, abnormal discharge and discomfort related to the pessary. OBJECTIVE: There were no vitals taken for this visit. EMLA cream was applied 10-15 minutes prior to pessary removal. A nurse practitioner physicians assistant is present for the examination (Kate Ghosh). General: Appears healthy, well developed and well nourished. No apparent distress. Urethra: Nontender, midline, no lesions. Vulva: Well developed and appropriate architecture present. No lesions or abnormal discharge. Vagina:Pale, pink, moist. scant granulation tissue scant discharge no bleeding Cervix: no lesions or bleeding PESSARY TYPE: # 3 Ring with support Pessary removed, cleaned and reinserted without difficulty. ASSESSMENT: Uterovaginal prolapse, managing well with pessary PLAN: ??? Continue using pessary as instructed for management of symptoms. ? ? PL & blue sticky updated. RTC in 6 months or sooner prn Shazia Whitley APRN Division of Female Pelvic Medicine and Reconstructive Surgery documented in this encounter Plan of Treatment Upcoming Encounters Date Type Specialty Care Team Description 02/11/2022 Scheduled View Only Hematology and Ángel Fischer Oncology [facility] [place]OG[place], [place] [address] (Wo rk) 02/11/2022 TH Visit (TeleHealth) Hematology and Ángel Fischer Oncology [facility] ONCOLOGY [place], [place] [address] (Wo rk) 02/11/2022 Infusion Hematology and Oncology 02/11/2022 Office Visit Hematology and Jazzy Armendariz R D Oncology [facility] HEMATOLOGY AND ONCOLOGY [place], [place] 0375 (Wo rk) 02/22/2022 TH Visit (TeleHealth) Hematology and Yaquelin Celis Oncology E, [facility] HEMATOLOGY AND ONCOLOGY [place], [place] 0375 (Wo rk) 02/25/2022 Office Visit Hematology Ángel Kimbrough Oncology [facility] ONCOLOGY [place], [place] 0375 (Wo rk) 02/25/2022 Infusion Hematology and Oncology 03/10/2022 Scheduled View Only Obstetrics and Nurse, Julian COLEMAN, central office operator 03/10/2022 Office Visit Obstetrics and Shazia Whitley, Gynecology [facility] [place] [place], [place] [address] (Wo rk) 03/11/2022 Office Visit Ángel Hill MD [facility] [address] Oncology Alyssa Joseph, [address] MEDICAL ONCOLOGY [place], [place] [phone] 03/11/2022 Infusion Hematology and Oncology 03/25/2022 Office Visit Hematology and Alyssa Joseph, Oncology [address] MEDICAL ONCOLOGY [place], [place] [phone] (Wo rk) 03/25/2022 Infusion Hematology and Oncology 03/31/2022 Office Visit Hematology and Alan Livingston M D [facility] DR HEMATOLOGY/[place] [address] Oncology Nilam So, [facility] HEMATOLOGY/[place] [address] 04/08/2022 Office Visit Hematology and Ángel Fischer MD [facility] [place] [address] Oncology Alyssa Joseph[address] [address] 04/08/2022 Infusion Hematology and Oncology documented as of this encounter Visit Diagnoses Diagnosis Pessary maintenance Fitting and adjustment of other device documented in this encounter Care Teams Director Of Broadcast Relationship Specialty Start Date End Date Mook Coffey DO PCP - General Family Medicine 02/16/[address] [place] [phone] documented as of this encounter
--- OUTSIDE RECORDS SUMMARY | 2022-02-11 01:07 | XMS_ITS | Encounter Summary ---
:1950 Author Organization [facility] [place] [address] Care Team Providers Name Role Phone Mook Coffey DO Primary Care Provider Encounter Details Date Type Department Care Team Description 02/02/2022 Hospital Encounter Laboratory [facility] [place] [address] Social History Tobacco Use Types Packs/Day [...] Scheduled View Only Hematology Ángel Kimbrough Oncology [facility] ONCOLOGY [place], [place] [address] (Wo rk) 02/11/2022 TH Visit (TeleHealth) Hematology Ángel Kimbrough Oncology [facility] DR UMANA [place], [place] 0[address] (Wo rk) 02/11/2022 Infusion Hematology and Oncology 02/11/2022 Office Visit Hematology and Jazzy Armendariz R D Oncology [facility] HEMATOLOGY AND ONCOLOGY [place], [place] 0375 (Wo rk) 02/22/2022 TH Visit (TeleHealth) Hematology and Yaquelin Celis Oncology E, [facility] HEMATOLOGY AND ONCOLOGY [place], [place] 0375 (Wo rk) 02/25/2022 Office Visit Hematology Ángel Kimbrough Oncology [facility] DR [place], [place] 0[address] (Wo rk) 02/25/2022 Infusion Hematology and Oncology 03/10/2022 Scheduled View Only Obstetrics and Nurse, Obgyn II, buttonhole maker hand 03/10/2022 Office Visit Obstetrics and Shazia Whitley Gynecology DIGITAL BUSINESS ANALYST [facility] UROGYNECOLOGY [place], [place] 0375 (Wo rk) 03/11/2022 Office Visit Ángel Hill MD [facility] [place] [address] On[address] Alyss[address] Joseph[address] MEDICAL ONCOLOGY [place], [place] [phone] 03/11/2022 Infusion Hematology and Oncology 03/25/2022 Office Visit Hematology and Alyssa Joseph, Oncology [address] MEDICAL ONCOLOGY [place], [place] [phone] (Wo rk) 03/25/2022 Infusion Hematology and Oncology 03/31/2022 Office Visit Hematology and Alan Livingston M D [facility] DR HEMATOLOGY/[place] [address] [facility] [address] 04/08/2022 Office Visit Hematology and Ángel Fischer MD [facility] [place] [address] Oncology Alyssa Joseph[address] MEDICAL ONCOLOGY [place], [place] [phone] 04/08/2022 Infusion Hematology and Oncology documented as of this encounter Procedures Procedure Name Priority Date/Time Associated Diagnosis Comme [facility] SURGICAL PATHOLOGY Routine 02/02/2022 3:04 PM Res ults for this REPORT EDT procedure are i n the results section. documented in this encounter Results Surgical Pathology Report (02/02/2022 3:04 PM EDT) Component Value Ref Test Analysis Performed At [facility] Method Time Signature Surgical [id number] ? Location: [facility] Report The signing pathologist has (i) examined the relevant preparation(s) for the [facility] specimen(s) and (ii) rendered or confirmed the diagnosis(es) . HOSPITAL LABORATORY . ?Surgic al Pathology DIAGNOSIS CONSULTATION CASE Outside slide(s) labeled [id number], collection date 12/31/19 22. Right colon, hemicolectomy: Mucinous adenocarcinoma of ascending colon, pT3N2a, see syno ptic report. Electronically signed by: ?Linda Dietrich MD Verified: ??02/10/2022 10:25 ??Pathologist Performed at: ??-[facility] Dept. of Pathology, [place], [place] SYNOPTIC Specimen ? Procedure: ??Right hemicolectomy [...] Buds: ??1 per 'hotspot' field ? Tumor Brighton Score: ??Low (0-4) ? Type of Polyp [...] Comments ? 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 ? Per outside pat hology report ([facility]), the tumor shows loss of MLH1/PMS2 and ?retained expr ession of MSH2/MSH6 proteins, and and immunostains were not ?submitted for review. Best Tumor Blocks for Future Studies . SYNOPTIC ? Tumor Block(s): ??A4 to A9, A15-A19 ? Normal Block(s): ??A1, A2 ? [facility] 2021 Q1 Release ADDITIONAL STUDIES Whole slide scan: [id number] SPECIMEN(S) SUBMITTED CONSULTATION CASE A - 29 slide(s) labeled [id number], collection date 2. [id number] Report to: [facility] Surgical Pathology Department [facility], [facility], 2nd Floor [address] [place], [place] ??[address] CLINICAL INFORMATION Right colon lesion SPECIMEN PROCESSING [facility] ([facility]) pathology slide(s) are reviewed. ??Refer to Diagnosis and Specimen Submitted for specific case infor kira. For the full text of the [facility] report(s) please refer t o Non-DH Documentation Pathology in the electronic health record (eDH). Specimen (Source) Anatomical Collection Method Collection Time Re ceived Time Location / / Volume Laterality 02/02/2022 3:04 PM EDT Ángel Fischer MD PATHOLOGY/CYTOLOGY ORDERABLE S Performing Organization Address City/State/[place] [address] documented in this encounter Visit Diagnoses Not on filedocumented in this encounter Care Teams Engineering Manager Relationship Specialty Start Date End Date Mook Coffey DO PCP - General Family Medicine 02/16/[address] [place] [phone] documented as of this encounter
--- OUTSIDE RECORDS SUMMARY | 2022-02-11 01:07 | XMS_ITS | Encounter Summary ---
:1950 Author Organization [facility] [place] [address] Care Team Providers Name Role Phone Mook Coffey DO Primary Care Provider Encounter Details Date Type Department Care Team Description 02/04/2022 Telephone Hematology/Oncology at [facility] , Ángel Lehman MD [address] ONCOLOGY [place], [place] [address] [place] [address] [phone] (Wo rk) Social History Tobacco Use Types [...] Fischer Oncology [facility] ONCOLOGY [place], [place] [address] (Shana hewitt) 02/11/2022 TH Visit (TeleHealth) Hematology Ángel Kimbrough Oncology [facility] ONCOLOGY [place], [place] 0[address] (Shana rk) 02/11/2022 Infusion Hematology and Oncology 02/11/2022 Office Visit Hematology and Jazzy Armendariz R D Oncology [facility] HEMATOLOGY AND ONCOLOGY [place], [place] 0[address] (Sahna rk) 02/22/2022 TH Visit (TeleHealth) Hematology and Yaquelin Celis Oncology E, [facility] HEMATOLOGY AND ONCOLOGY [place], [place] [address] (Shana rk) 02/25/2022 Office Visit Hematology and Ángel Fischer Oncology [facility] ONCOLOGY [place], [place] [address] (Wo rk) 02/25/2022 Infusion Hematology and Oncology 03/10/2022 Scheduled View Only Obstetrics and Nurse, Julian COLEMAN, methane gas collection system operator 03/10/2022 Office Visit Obstetrics and Gutierrez, Shazia Baer, Gynecology [facility] UROGYNECOLOGY [place], [place] 0375 (Wo rk) 03/11/2022 Office Visit Hematology and Ángel Fischer MD [facility] [place] [address] Oncology Alyssa Joseph[address] MEDICAL ONCOLOGY [place], [place] [phone] 03/11/2022 Infusion Hematology and Oncology 03/25/2022 Office Visit Hematology and Alyssa Joseph Oncology [address] MEDICAL ONCOLOGY [place], [place] [address] (Wo rk) 03/25/2022 Infusion Hematology and Oncology 03/31/2022 Office Visit Hematology and Alan Livingston M D [facility] HEMATOLOGY/[place] [address] Oncology Nilam So [facility] HEMATOLOGY/[place] [address] 04/08/2022 Office Visit Hematology and Ángel Fischer MD [facility] [place] [address] Oncology [address]lyss[address] Joseph[address] MEDICAL ONCOLOGY [place], [place] [address] 04/08/2022 Infusion Hematology and Oncology documented as of this encounter Visit Diagnoses Not on filedocumented in this encounter Care Teams Systems Design Engineer Relationship Specialty Start Date End Date Mook Coffey DO PCP - General Family Medicine 02/16/[address] [place] [address], [place] [phone] documented as of this encounter
--- OUTSIDE RECORDS SUMMARY | 2022-02-11 01:07 | XMS_ITS | Encounter Summary ---
:1950 Author Organization [facility] Address [facility] [place] [address] Care Team Providers Name Role Phone Mook Coffey DO Primary Care Provider Encounter Details Date Type Department Care Team Description 03/11/2021 Orders Only Obstetrics and Chika Crandall, Urinary tr act Gynecology at [facility] RESIDENCE DIRECTOR infection, E. coli [facility] [address] [place] [address] [place] [address] [phone] Social History Tobacco Use Types Packs/Day Years [...] Fischer Oncology [facility] ONCOLOGY [place], [place] [address] (Shana hewitt) 02/11/2022 TH Visit (TeleHealth) Hematology Ángel Kimbrough Oncology [facility] ONCOLOGY [place], [place] [address] (Shana hewitt) 02/11/2022 Infusion Hematology and Oncology 02/11/2022 Office Visit Hematology and Jazzy Armendariz R D Oncology [facility] HEMATOLOGY AND ONCOLOGY [place], [place] [address] (Shana hewitt) 02/22/2022 TH Visit (TeleHealth) Hematology and Yaquelin Celis Oncology E, [facility] HEMATOLOGY AND ONCOLOGY [place], [place] 0[address] (Wo rk) 02/25/2022 Office Visit Hematology Ángel Kimbrough Oncology MD [facility] ONCOLOGY [place], [place] 0[address] (Wo rk) 02/25/2022 Infusion Hematology and Oncology 03/10/2022 Scheduled View Only Obstetrics and Nurse, Julian COLEMAN, accreditation manager 03/10/2022 Office Visit Obstetrics and Shazia Whitley, Gynecology [facility] UROGYNECOLOGY [place], [place] 0[address] (Wo rk) 03/11/2022 Office Visit Hematology and Ángel Fischer MD [facility] [place] [address] Oncology Alyssa Joseph [address] MEDICAL ONCOLOGY [place], [place] [address] 03/11/2022 Infusion Hematology and Oncology 03/25/2022 Office Visit Hematology and Alyssa Joseph Oncology [address] ONCOLOGY [place], [place] [address] (Wo rk) 03/25/2022 Infusion Hematology and Oncology 03/31/2022 Office Visit Hematology and Alan Livingston M D [facility] DR HEMATOLOGY/[place] [address] Oncology Nilam So [facility] HEMATOLOGY/[place] [address] 04/08/2022 Office Visit Hematology and Ángel Fischer MD [facility] [place] [address] Oncology Alyssa Joseph[address] [place] [address] 04/08/2022 Infusion Hematology and Oncology documented as of this encounter Visit Diagnoses Diagnosis Urinary tract infection, E. coli Urinary tract infection, site not specif ied documented in this encounter Care Teams Balancer Scale Relationship Specialty Start Date End Date Mook Coffey DO PCP - General Family Medicine 02/16/[address] [place] [phone] documented as of this encounter
--- OUTSIDE RECORDS SUMMARY | 2022-02-11 01:07 | XMS_ITS | Encounter Summary ---
:1950 Author Organization [facility] [place] [address] Care Team Providers Name Role Phone Mook Coffey DO Primary Care Provider Encounter Details Date Type Department Care Team Description 02/11/2022 Infusion Hematology Oncology at [address] [phone] Social History Tobacco Use [...] place to sleep or slept in a penitentiary (including now)? Sex Assigned at Date Recorded Female 12/24/2020 12:51 PM EDT documented as of this encounter Plan of Treatment Upcoming Encounters Date Type Specialty Care Team Description 02/11/2022 Scheduled View Only Hematology and Ángel Fischer Oncology [facility] ONCOLOGY [place] [phone] (Wo rk) 02/11/2022 TH Visit (TeleHealth) Ángel Hill Oncology [facility] DR UMANA [place], [place] [address] (Wo rk) 02/11/2022 Office Visit Hematology and Jazzy Armendariz R D Oncology [facility] HEMATOLOGY AND ONCOLOGY [place], [place] [address] (Wo rk) 02/22/2022 TH Visit (TeleHealth) Hematology and Yaquelin Celis Oncology Daniel, [facility] HEMATOLOGY AND ONCOLOGY [place], [place] [address] (Wo rk) 02/25/2022 Office Visit Hematology Ángel Kimbrough Oncology [facility] ONCOLOGY [place], [place] [address] (Wo rk) 02/25/2022 Infusion Hematology and Oncology 03/10/2022 Scheduled View Only Obstetrics and Nurse, Julian COLEMAN, almond paste molder 03/10/2022 Office Visit Obstetrics and Shazia Whitley, Gynecology [facility] UROGYNECOLOGY [place], [place] [address] (Wo rk) 03/11/2022 Office Visit Hematology and Ángel Fischer MD [facility] [place] [address] On[address] Joseph[address] ONCOLOGY [place], [place] [phone] 03/11/2022 Infusion Hematology and Oncology 03/25/2022 Office Visit Hematology and Alyssa Joseph, Oncology [address] MEDICAL ONCOLOGY [place], [place] [phone] (Wo rk) 03/25/2022 Infusion Hematology and Oncology 03/31/2022 Office Visit Hematology and Alan Livingston M D [facility] DR HEMATOLOGY/[place] [address] [facility] [address] 04/08/2022 Office Visit Hematology and Ángel Fischer MD [facility] [place] [address] Oncology Alyss[address] Joseph[address] MEDICAL ONCOLOGY [place], [place] [phone] 04/08/2022 Infusion Hematology and Oncology documented as of this encounter Visit Diagnoses Not on filedocumented in this encounter Care Teams Superintendent Logging Relationship Specialty Start Date End Date Mook Coffey DO PCP - General Family Medicine 02/16/18 [address] [place] [phone] documented as of this encounter
--- OUTSIDE RECORDS SUMMARY | 2022-02-11 01:07 | XMS_ITS | Encounter Summary ---
:1950 Author Organization [facility] Address [facility] [address] [place] [address] Care Team Providers Name Role Phone Mook Coffey DO Primary Care Provider Encounter Details Date Type Department Care Team Description 07/[facility] [address] [phone] Social History Tobacco Use [...] place to sleep or slept in a residential (including now)? Sex Assigned at Date Recorded Female 12/24/2020 12:51 PM EDT documented as of this encounter Plan of Treatment Upcoming Encounters Date Type Specialty Care Team Description 02/11/2022 Scheduled View Only Hematology and Ángel Fischer Oncology [facility] ONCOLOGY [place], [place] [address] (Wo rk) 02/11/2022 TH Visit (TeleHealth) Ángel Hill Oncology [facility] DR UMANA [place], [place] [address] (Wo rk) 02/11/2022 Infusion Hematology and Oncology 02/11/2022 Office Visit Hematology and Jazzy Armendariz R D Oncology [facility] HEMATOLOGY AND ONCOLOGY [place], [place] [address] (Wo rk) 02/22/2022 TH Visit (TeleHealth) Hematology and Yaquelin Celis Oncology [place], [facility] HEMATOLOGY AND ONCOLOGY [place], [place] [address] (Wo rk) 02/25/2022 Office Visit Hematology Ángel Kimbrough Oncology [facility] ONCOLOGY [place], [place] [address] (Wo rk) 02/25/2022 Infusion Hematology and Oncology 03/10/2022 Scheduled View Only Obstetrics and Nurse, Julian COLEMAN, histology teacher 03/10/2022 Office Visit Obstetrics and Shazia Whitley, Gynecology [facility] UROGYNECOLOGY [place], [place] 0[address] (Wo rk) 03/11/2022 Office Visit Hematology and Ángel Fischer MD [facility] [place] [address] Oncology Alyssa Joseph[address] ONCOLOGY [place], [place] [address] 03/11/2022 Infusion Hematology and Oncology 03/25/2022 Office Visit Hematology and Alyssa Joseph, Oncology [address] ONCOLOGY [place], [place] [address] (Wo rk) 03/25/2022 Infusion Hematology and Oncology 03/31/2022 Office Visit Hematology and Alan Livingston M D [facility] DR HEMATOLOGY/[place] [address] [facility] [address] 04/08/2022 Office Visit Hematology and Ángel Fischer MD [facility] [place] [address] Oncology Alyssa Joseph[address] ONCOLOGY [place], [place] [address] 04/08/2022 Infusion Hematology and Oncology documented as of this encounter Visit Diagnoses Not on filedocumented in this encounter Care Teams Soft Sugar Supervisor Relationship Specialty Start Date End Date Mook Coffey DO PCP - General Family Medicine 02/16/18 [address] [place] [phone] documented as of this encounter
--- OUTSIDE RECORDS SUMMARY | 2022-02-11 01:07 | XMS_ITS | Encounter Summary ---
:1950 Author Organization [facility] [place] [address] Care Team Providers Name Role Phone Mook Coffey DO Primary Care Provider Encounter Details Date Type Department Care Team Description 03/11/2021 Notes Only [facility] [place] [phone] Social History Tobacco Use Types Packs/Day [...] place to sleep or slept in a chcf (including now)? Sex Assigned at Date Recorded Female 12/24/2020 12:51 PM EDT documented as of this encounter Progress Notes Romy Ballard RN - 03/11/2021 2:21 PM EDT If pt calls per Chika Crandall SENIOR OCCUPATIONAL THERAPIST: If pt calls, she had thought she would need cipro for this, but the colony count of E coli is low and Macrobid is better. documented in this encounter Plan of Treatment Upcoming Encounters Date Type Specialty Care Team Description 02/11/2022 Scheduled View Only Hematology and Ángel Fischer Oncology [facility] ONCOLOGY [place], [place] [address] (Shana hewitt) 02/11/2022 TH Visit (TeleHealth) Hematology and Ángel Fischer Oncology [facility] DR UMANA [place], [place] [address] (Shana hewitt) 02/11/2022 Infusion Hematology and Oncology 02/11/2022 Office Visit Hematology and Jazzy Armendariz R D Oncology [facility] DRIVE HEMATOLOGY AND ONCOLOGY [place], [place] [address] (Wo rk) 02/22/2022 TH Visit (TeleHealth) Hematology and Yaquelin Celis Oncology E, [facility] HEMATOLOGY AND ONCOLOGY [place], [place] [address] (Wo rk) 02/25/2022 Office Visit Hematology Ángel Kimbrough Oncology [facility] ONCOLOGY [place], [place] [address] (Wo rk) 02/25/2022 Infusion Hematology and Oncology 03/10/2022 Scheduled View Only Obstetrics and NurseJulian II, chief librarian branch 03/10/2022 Office Visit Obstetrics and Shazia Whitley, Gynecology [facility] UROGYNECOLOGY [place], [place] [address] (Wo rk) 03/11/2022 Office Visit Hematology and Ángel Fischer MD [facility] [place] [address] On[address] Alyssa Joseph[address] MEDICAL ONCOLOGY [place], [place] [phone] 03/11/2022 Infusion Hematology and Oncology 03/25/2022 Office Visit Hematology and Alyssa Joseph Oncology [address] MEDICAL ONCOLOGY [place], [place] [phone] (Wo rk) 03/25/2022 Infusion Hematology and Oncology 03/31/2022 Office Visit Hematology and Alan Livingston M D [facility] HEMATOLOGY/[place] [address] [facility] [address] 04/08/2022 Office Visit Hematology and Ángel Fischer MD [facility] [place] [address] Oncology Alyssa Joseph, MEDICAL RESIDENT [address] [place] [address] [place] [address] 04/08/2022 Infusion Hematology and Oncology documented as of this encounter Visit Diagnoses Not on filedocumented in this encounter Care Teams Receiving And Processing Supervisor Relationship Specialty Start Date End Date Mook Coffey DO PCP - General Family Medicine 02/16/[address] [place] [phone] documented as of this encounter
--- OUTSIDE RECORDS SUMMARY | 2022-02-11 01:07 | XMS_ITS | Encounter Summary ---
:1950 Author Organization [facility] Address [address] [place] [address] Care Team Providers Name Role Phone Mook Coffey DO Primary Care Provider Encounter Details Date Type Department Care Team Description 01/10/2022 Ancillary Procedure Radiology Library at Ozzy Coffey, [facility] DO [address] [phone] (Wo rk) Social History Tobacco Use Types [...] place to sleep or slept in a skilled nursing (including now)? Sex Assigned at Date Recorded Female 12/24/2020 12:51 PM EDT documented as of this encounter Plan of Treatment Upcoming Encounters Date Type Specialty Care Team Description 02/11/2022 Scheduled View Only Hematology and Ángel Fischer Oncology [facility] ONCOLOGY [place], [place] [address] (Shana hewitt) 02/11/2022 TH Visit (TeleHealth) Hematology Ángel Kimbrough Oncology [facility] ONCOLOGY [place], [place] [address] (Shana hewitt) 02/11/2022 Infusion Hematology and Oncology 02/11/2022 Office Visit Hematology and Jazzy Armendariz R D Oncology [facility] HEMATOLOGY AND ONCOLOGY [place], [place] [address] (Shana hewitt) 02/22/2022 TH Visit (TeleHealth) Hematology and Yaquelin Celis Oncology E, [facility] HEMATOLOGY AND ONCOLOGY [place], [place] [address] (Wo rk) 02/25/2022 Office Visit Hematology Ángel Kimbrough Oncology MD [facility] ONCOLOGY [place], [place] [address] (Wo rk) 02/25/2022 Infusion Hematology and Oncology 03/10/2022 Scheduled View Only Obstetrics and Nurse, Julian COLEMAN, rural mail contractor 03/10/2022 Office Visit Obstetrics and Shazia Whitley, Gynecology [facility] UROGYNECOLOGY [place], [place] [address] (Wo rk) 03/11/2022 Office Visit Hematology and Ángel Fischer MD [facility] [place] [address] Oncology Alyssa Joseph [address] MEDICAL ONCOLOGY [place], [place] [phone] 03/11/2022 Infusion Hematology and Oncology 03/25/2022 Office Visit Hematology and Alyssa Joseph Oncology [address] ONCOLOGY [place], [place] [phone] (Wo rk) 03/25/2022 Infusion Hematology and Oncology 03/31/2022 Office Visit Hematology and Alan Livingston M D [facility] DR HEMATOLOGY/[place] [address] Oncology Nilam So [facility] HEMATOLOGY/[place] [address] 04/08/2022 Office Visit Hematology and Ángel Fischer MD [facility] [place] [address] [address] Joseph[address] [place] [address] 04/08/2022 Infusion Hematology and Oncology documented as of this encounter Procedures Procedure Name Priority Date/Time Associated Diagnosis Comme nts FILM LIBRARY Routine 01/10/2022 12:00 AM Results for this STORAGE ONLY CT EDT procedure ar hugh in CHEST the results section. documented in this encounter Results Film Library- Storage Only CT Chest (01/10/2022 12:00 AM EDT) Specimen (Source) Anatomical Location Collection Method / Collectio n Time Received Time / Laterality Volume Narrative RAD - 01/26/2022 11:59 AM EDT This exam is auto-finalizing. It's purpo se is for storage only. Mook Coffey DO IMG FILM LIBRARY ORDERABLES Performing Organization Address City/State/ZIP Code Phon e Number [place], [place] documented in this encounter Visit Diagnoses Not on filedocumented in this encounter Care Teams Supervisor [employer] Relationship Specialty Start Date End Date Mook Coffey DO PCP - General Family Medicine 02/16/[address] [place] [phone] documented as of this encounter
--- OUTSIDE RECORDS SUMMARY | 2022-02-11 01:07 | XMS_ITS | Encounter Summary ---
:1950 Author Organization [facility] Address [address] [place] [address] Care Team Providers Name Role Phone Mook Coffey DO Primary Care Provider Reason for Visit Reason Onset Date Comments Questions 01/28/2022 Re Bivalent vaccine Encounter Details Date Type Department Care Team Description 01/28/2022 Telephone Hematology/Oncology at [facility]den (Re Bivalent [facility] Navneet Isaac RN vaccine) [address] [place] [phone] Social History Tobacco Use Types Packs/Day [...] Telephone Encounter - Navneet Burden RN - 01/28/2022 10:44 AM EDT Called and spoke with Anahi regarding this. She was thankful for the follow up call. ----- Message from Ángel Fischer MD sent at 01/28/2022 10:43 AM EDT ----- Regarding: RE: Bivalent Booster Yes, that's fine ----- Message ----- From: Navneet Burden RN Sent: 01/28/2022 10:23 AM EDT To: Ángel Fischer MD Subject: FW: Bivalent Booster I'm assuming we can tell your pts to go ahead with Bivalent booster if they can get it? Please advise, Ivy ----- Message ----- From: Aleta Douglas Sent: 01/28/2022 10:20 AM EDT To: Kanika Hem Onc Nurse Subject: Bivalent Booster Anahi is a new patient of Dr. Fischer and is wondering if she should go to get the Bivalent booster today She said she would be able to go to [place] for a booster clinic today. She said the clinic closes at4pm. She is wondering if we can give her a call to let her know if we advise her going now, before she begins treatment in a few weeks. documented in this encounter Plan of Treatment Upcoming Encounters Date Type Specialty Care Team Description 02/11/2022 Scheduled View Only Hematology Ángel Kimbrough, Oncology [facility] ONCOLOGY [place] [phone] (Wo rk) 02/11/2022 TH Visit (TeleHealth) Hematology Ángel Kimbrough Oncology [facility] DR UMANA [place], [place] [address] (Wo rk) 02/11/2022 Infusion Hematology and Oncology 02/11/2022 Office Visit Hematology and Jazzy Armendariz, R D Oncology [facility] HEMATOLOGY AND ONCOLOGY [place], [place] [address] (Wo rk) 02/22/2022 TH Visit (TeleHealth) Hematology and Yaquelin Celis Oncology E, [facility] HEMATOLOGY AND ONCOLOGY [place], [place] [address] (Wo rk) 02/25/2022 Office Visit Hematology Ángel Kimbrough Oncology [facility] ONCOLOGY [place], [place] [address] (Wo rk) 02/25/2022 Infusion Hematology and Oncology 03/10/2022 Scheduled View Only Obstetrics and Nurse, Julian COLEMAN, telescope operator 03/10/2022 Office Visit Obstetrics and Shazia Whitley Gynecology [facility] UROGYNECOLOGY [place], [place] [address] (Wo rk) 03/11/2022 Office Visit Hematology and Ángel Fischer MD [facility] [place] [address] Oncology Alyssa Joseph[address] MEDICAL ONCOLOGY [place], [place] [phone] 03/11/2022 Infusion Hematology and Oncology 03/25/2022 Office Visit Hematology and Alyssa Joseph, Oncology [address] ONCOLOGY [place], [place] [address] (Wo rk) 03/25/2022 Infusion Hematology and Oncology 03/31/2022 Office Visit Hematology and Alan Livingston M D [facility] DR HEMATOLOGY/[place] [address] [facility] [address] 04/08/2022 Office Visit Hematology and Ángel Fischer MD [facility] [place] [address] Oncology Alyss[address] Joseph[address] ONCOLOGY [place], [place] [phone] 04/08/2022 Infusion Hematology and Oncology documented as of this encounter Visit Diagnoses Not on filedocumented in this encounter Care Teams Commercial Plumber Relationship Specialty Start Date End Date Mook Coffey DO PCP - General Family Medicine 02/16/[address] [place] [phone] documented as of this encounter
--- OUTSIDE RECORDS SUMMARY | 2022-02-11 01:07 | XMS_ITS | Encounter Summary ---
:1950 Author Organization [facility] Address [address] [place] [address] Care Team Providers Name Role Phone Mook Coffey DO Primary Care Provider Reason for Visit Reason Onset Date Comments Questions 02/08/2022 Encounter Details Date Type Department Care Team Description 02/08/2022 [facility] RN [address] [place] [phone] Social History Tobacco Use Types [...] place to sleep or slept in a fci (including now)? Sex Assigned at Date Recorded Female 12/24/2020 12:51 PM EDT documented as of this encounter Miscellaneous Notes Telephone Encounter - Navneet Burden RN - 02/08/2022 9:51 AM EDT Anahi wanted to check in because she has a recurring bladder infection, she just got one again and has been put on a 7-day regimen for Bactrim by her PCP. She had increased incontinence and cloudy urine. On Monday she is coming in for C1 Folfox and would be on Day 5 of Bactrim. She's wondering if she can continue to take Bactrim or should stop on Day 5 so she is ready for Folfox on Monday. Advised tocontinue Bactrim as prescribed and provider was updated. documented in this encounter Plan of Treatment Upcoming Encounters Date Type Specialty Care Team Description 02/11/2022 Scheduled View Only Hematology and Ángel Fischer Oncology [facility] [place], [place] [address] (Wo rk) 02/11/2022 TH Visit (TeleHealth) Hematology and Ángel Fischer Oncology [facility] ONCOLOGY [place], [place] [address] (Wo rk) 02/11/2022 Infusion Hematology and Oncology 02/11/2022 Office Visit Hematology and Jazzy Armendariz R D Oncology [facility] DR[address] HEMATOLOGY AND ONCOLOGY [place], [place] [address] (Wo rk) 02/22/2022 TH Visit (TeleHealth) Hematology and Yaquelin Celis Oncology E, [facility] HEMATOLOGY AND ONCOLOGY [place], [place] [address] (Wo rk) 02/25/2022 Office Visit Hematology and Ángel Fischer Oncology [facility] ONCOLOGY [place], [place] [address] (Wo rk) 02/25/2022 Infusion Hematology and Oncology 03/10/2022 Scheduled View Only Obstetrics and Nurse, Julian COLEMAN, obstetrical tech 03/10/2022 Office Visit Obstetrics and Shazia Whitley Gynecology [facility] UROGYNECOLOGY [place], [place] [address] (Wo rk) 03/11/2022 Office Visit Hector and Ángel Fischer MD [facility] [place] [address] Oncology Alyssa Joseph[address] MEDICAL ONCOLOGY [place], [place] [address] 03/11/2022 Infusion Hematology and Oncology 03/25/2022 Office Visit Hematology and Alyssa Joseph, Oncology [address] MEDICAL ONCOLOGY [place], [place] [address] (Wo rk) 03/25/2022 Infusion Hematology and Oncology 03/31/2022 Office Visit Hematology and Alan Livingston M D [facility] DR HEMATOLOGY/[place] [address] Oncology Nilam So, [facility] DR HEMATOLOGY/[place] [address] 04/08/2022 Office Visit Hematology and Ángel Fischer MD [facility] [place] [address] Oncology Alyssa Joseph[address] MEDICAL ONCOLOGY [place], [place] [phone] 04/08/2022 Infusion Hematology and Oncology documented as of this encounter Visit Diagnoses Not on filedocumented in this encounter Care Teams Content Creation Manager Relationship Specialty Start Date End Date Mook Coffey DO PCP - General Family Medicine 02/16/[address] [place] [phone] documented as of this encounter
--- OUTSIDE RECORDS SUMMARY | 2022-02-11 01:07 | XMS_ITS | Encounter Summary ---
:1950 Author Organization [facility] [place] [address] Care Team Providers Name Role Phone Mook Coffey DO Primary Care Provider Encounter Details Date Type Department Care Team Description 11/25/2021 Office Visit Hematology/Oncology Nilam So, CLL ( chronic lymphocytic leukemia); at [facility] BOBBIN WINDER TENDER Anemia, unspecified type [address] [place] [address] HEMATOLOGY/ONCOLOG [phone] Y DEPT. [place], [place] [address] Social History Tobacco Use Types [...] place to sleep or slept in a assisted (including now)? Sex Assigned at Date Recorded Female 12/24/2020 12:51 PM EDT documented as of this encounter Last Filed Vital Signs Vital Sign Reading Time Taken Comments Blood Pressure 136/62 11/25/2021 11:36 AM EDT Pulse 61 11/25/2021 11:36 AM EDT Temperature 36.5 ??C (97.7 ??F) 11/25/2021 11:36 AM EDT Respiratory Rate 18 11/25/2021 11:36 AM EDT Oxygen Saturation 100% 11/25/2021 11:36 AM EDT Inhaled Oxygen Concentration - - Weight 73.9 kg (163 lb) 11/25/2021 11:36 AM EDT Height 164.2 cm (5' 4.65) 11/25/2021 11:36 AM EDT Body Mass Index 27.42 11/25/2021 11:36 AM EDT documented in this encounter Progress Notes Nilam So, ADENIKE - 11/25/2021 11:30 AM EDT Subjective Patient ID: Carol Keller is a 71 y.o. female here for f/u of CLL Patient Active Problem List Diagnosis ??? Pessary maintenance # 3 Ring with support Needs removal and cleaning q 4-6 mos ??? Urethral sphincter deficiency, intrinsic (ISD) ??? Pelvic organ prolapse quantification stage 3 cystocele ??? Mixed incontinence ??? Seborrheic keratosis ??? Cerebral infarction Bilateral MCA territory left>right ??? On anticoagulant therapy ??? Pulmonary embolism ??? AK (actinic keratosis) ??? History of SCC (squamous cell carcinoma) of skin ??? Macular pucker, right eye ??? Horseshoe retinal tear, right eye ??? SVT (supraventricular tachycardia) ??? GERD (gastroesophageal reflux disease) ??? Diabetes mellitus ??? CLL (chronic lymphocytic leukemia) Dx 12/28 w/ WBC 27k P-53, CD38 and zap -70 negative. Cytogenetics 13 deletion (favorable prognosis) Observation only Pneumovax 2014 HPI Anahi is doing well. She stopped her prilosec which helped her chronic diarrhea. Her reflux however is now worse. She has tried pepcid which she did not tolerate. She does take occasional tums. She hasnoticed some darker stools and also has some abdominal discomfort. She denies any new lump sor bumps. No recent infections. No night sweats. Energy is stable. She continues to be busy with crafting andis frustrated by high gas prices which are keeping her close at home now that it safe to travel morepost Covid . Review of Systems Constitutional: Negative. HENT: Negative. Eyes: Negative. Respiratory: Negative. Negative for cough and shortness of breath. Cardiovascular: Negative. Negative for chest pain, palpitations and leg swelling. Gastrointestinal: Positive for abdominal pain. Negative for constipation, diarrhea, nausea and vomiting. Reflux as above Genitourinary: Negative. Musculoskeletal: Negative. Skin: Negative. Neurological: Negative. Negative for weakness and numbness. Hematological: Negative. Psychiatric/Behavioral: Negative. The patient is not nervous/anxious. Objective Physical Exam Constitutional: General: She is not in acute distress. Appearance: She is well-developed. HENT: Mouth/Throat: Pharynx: No oropharyngeal exudate. Eyes: Conjunctiva/sclera: Conjunctivae normal. Pupils: Pupils are equal, round, and reactive to light. Cardiovascular: Rate and Rhythm: Normal rate and regular rhythm. Heart sounds: Normal heart sounds. No murmur heard. Pulmonary: Effort: Pulmonary effort is normal. Breath sounds: Normal breath sounds. No wheezing or rales. Chest: Breasts: Right: No supraclavicular adenopathy. Left: No supraclavicular adenopathy. Abdominal: General: Bowel sounds are normal. Palpations: Abdomen is soft. There is no mass. Tenderness: There is no guarding or rebound. Musculoskeletal: General: Normal range of motion. Cervical back: Normal range of motion and neck supple. Lymphadenopathy: Cervical: No cervical adenopathy. Upper Body: Right upper body: No supraclavicular adenopathy. Left upper body: No supraclavicular adenopathy. Comments: Few shoddy cervical nodes. Left axilla - 1cm node Skin: General: Skin is warm and dry. Neurological: Mental Status: She is alert and oriented to person, place, and time. Recent Results (from the past 72 hour(s)) CBC (with Diff) Result Value Ref Range WBC 88.7 (CRIT) RBC 4.10 Hemoglobin 10.9 (L) Hematocrit 36.2 Platelets 193 Neutr Abs (ANC) 5.3 Comprehensive metabolic panel (non-fasting) Result Value Ref Range BUN 18 Creatinine 0.90 Sodium 145 Potassium 4.1 Chloride 108 (H) Calcium 8.6 Total Protein 6.2 Albumin 3.4 Total Bilirubin 0.4 Alk Phos 64 AST 16 ALT 26 LDH 187 BP 136/62 (Patient Position: Sitting) Pulse 61 Temp 36.5 ??C (97.7 ??F) (Temporal) Resp 18 Ht 164.2 cm (5' 4.65) Wt 73.9 kg (163 lb) SpO2 100% BMI 27.42 kg/m?? Assessment and Plan ?? Assessment: 71 year old with good risk??CLL. Has never been treated. , No worrisome or symptomatic adenoapthy. No B symptoms.ALC is also stable. ?No recurrent infections, no signs of AIHA or ITP. Noconcern for transformation. No indication for treatment at this time. She does have a new mild anemia - MCV is WNL. WIll check anemia labs to include EPO, SPEP, iron studies, retic, B12 and folate, YOVANI and haptoglobin and TSH. She will get these done locally sometime in the next week or so. I will call her with the results. ?? Reviewed CLL and indications for therapy, Also reviewed inherent ??increase risk for infection. Her vaccines are UTD. ?? We will continue to monitor prospectively in hematology clinic. Elisha Keller will return to clinic in 4 months or sooner pending anemia w/u resutls. she will call before then if any concerns or changes in status. ?? documented in this encounter Plan of Treatment Upcoming Encounters Date Type Specialty Care Team Description 02/11/2022 Scheduled View Only Hematology and Ángel Fischer Oncology [facility] ONCOLOGY [place], [place] [address] (Wo rk) 02/11/2022 TH Visit (TeleHealth) Hematology Ángel Kimbrough Oncology [facility] DR UMANA [place], [place] [address] (Wo rk) 02/11/2022 Infusion Hematology and Oncology 02/11/2022 Office Visit Hematology and Jazzy Armendariz R D Oncology [facility]AR HEMATOLOGY AND ONCOLOGY [place], [place] [address] (Wo rk) 02/22/2022 TH Visit (TeleHealth) Hematology and Yaquelin Celis Oncology E, [facility] HEMATOLOGY [place] ONCOLOGY [place], [place] [address] (Wo rk) 02/25/2022 Office Visit Ángel Hill Oncology [facility] DR [place], [place] [address] (Wo rk) 02/25/2022 Infusion Hematology and Oncology 03/10/2022 Scheduled View Only Obstetrics and Nurse, Julian COLEMAN, cooler conveyor loader 03/10/2022 Office Visit Obstetrics and Shazia Whitley Gynecology [facility] DR UROGYNECOLOGY [place], [place] [address] (Wo rk) 03/11/2022 Office Visit Hematology and Ángel Fischer MD [facility] [place] [address] Oncology Alyss[address] Joseph[address] MEDICAL ONCOLOGY [place], [place] [phone] 03/11/2022 Infusion Hematology and Oncology 03/25/2022 Office Visit Hematology and Alyssa Joseph, Oncology [address] MEDICAL ONCOLOGY [place], [place] [phone] (Wo rk) 03/25/2022 Infusion Hematology and Oncology 03/31/2022 Office Visit Hematology and Alan Livingston M D [facility] DR HEMATOLOGY/[place] [address] [facility] [address] 04/08/2022 Office Visit Hematology and Ángel Fischer MD [facility] [place] [address] Oncology Alyssa Joseph[address] MEDICAL ONCOLOGY [place], [place] [phone] 04/08/2022 Infusion Hematology and Oncology Scheduled Orders Name Type Priority Associated Diagnoses Order S chedule CBC (with Diff) Lab STAT CLL (chronic lymphocytic Expected: 11/25/2021 leukemia) (Approximate), Anemia, unspecified type Exp ires: 11/25/2022 Comprehensive metabolic Lab STAT CLL (chronic lymp hocytic Expected: 11/25/2021 panel (non-fasting) leukemia) (Approximate), Anemia, unspecified type Exp ires: 11/25/2022 Ferritin Lab STAT CLL (chronic lymphocytic Exp ected: 11/25/2021 leukemia) (Approximate), Anemia, unspecified type Exp ires: 11/25/2022 Iron and TIBC Lab STAT CLL (chronic lymphocytic Ex pected: 11/25/2021 leukemia) (Approximate), Anemia, unspecified type Exp ires: 11/25/2022 Reticulocyte Count Lab STAT CLL (chronic lymphocyt ic Expected: 11/25/2021 leukemia) (Approximate), Anemia, unspecified type Exp ires: 11/25/2022 Direct antiglobulin test Lab STAT CLL (chronic lym phocytic Expected: 11/25/2021 leukemia) (Approximate), Anemia, unspecified type Exp ires: 11/25/2022 Erythropoietin Level Lab STAT CLL (chronic lymphoc ytic Expected: 11/25/2021 leukemia) (Approximate), Anemia, unspecified type Exp ires: 11/25/2022 Folate, serum Lab STAT CLL (chronic lymphocytic Ex pected: 11/25/2021 leukemia) (Approximate), Anemia, unspecified type Exp ires: 11/25/2022 Haptoglobin Lab STAT CLL (chronic lymphocytic Exp ected: 11/25/2021 leukemia) (Approximate), Anemia, unspecified type Exp ires: 11/25/2022 Protein Electrophoresis, Lab STAT CLL (chronic lym phocytic Expected: 11/25/2021 serum leukemia) (Approximate), Anemia, unspecified type Exp ires: 11/25/2022 TSH Lab STAT CLL (chronic lymphocytic Exp ected: 11/25/2021 leukemia) (Approximate), Anemia, unspecified type Exp ires: 11/25/2022 Vitamin B12 Lab STAT CLL (chronic lymphocytic Exp ected: 11/25/2021 leukemia) (Approximate), Anemia, unspecified type Exp ires: 11/25/2022 documented as of this encounter Procedures Procedure Name Priority Date/Time Associated Diagnosis Comme nts CBC (WITH DIFF) Routine 11/23/2021 Results for this procedure are i n the results section . COMPREHENSIVE METABOLIC Routine 11/23/2021 Resu lts for this PANEL (NON-FASTING) procedur e are in the results section . documented in this encounter Results (ABNORMAL) Comprehensive metabolic panel (non-fasting) (11/23/2021) P athologist Signature BUN 18 Creatinine 0.90 Sodium 145 Potassium 4.1 Chloride 108 (H) Calcium 8.6 Total Protein 6.2 Albumin 3.4 Total Bilirubin 0.4 Alk Phos 64 AST 16 ALT 26 LDH 187 Specimen (Source) Anatomical Location Collection Method / Collectio n Time Received Time / Laterality Volume Blood 11/23/2021 Historical Provider CHEMISTRY ORDERABLES (ABNORMAL) CBC (with Diff) (11/23/2021) Patholo gist Method Time Signature WBC 88.7 (Critical) RBC 4.10 Hemoglobin 10.9 (L) Hematocrit 36.2 Platelets 193 Neutr Abs (ANC) 5.3 Specimen (Source) Anatomical Location Collection Method / Collectio n Time Received Time / Laterality Volume Blood 11/23/2021 Historical Provider HEMATOLOGY ORDERABLES documented in this encounter Visit Diagnoses Diagnosis CLL (chronic lymphocytic leukemia) Chronic lymphoid leukemia, without menti on of having achieved remission Anemia, unspecified type documented in this encounter Care Teams Air Antisubmarine Officer Relationship Specialty Start Date End Date Mook Coffey DO PCP - General Family Medicine 02/16/18 [address] [place] [phone] documented as of this encounter
--- OUTSIDE RECORDS SUMMARY | 2022-02-11 01:07 | XMS_ITS | Encounter Summary ---
:1950 Author Organization [facility] Address [facility] [address] [place] [address] Care Team Providers Name Role Phone Mook Coffey DO Primary Care Provider Encounter Details Date Type Department Care Team Description 03/09/2021 Office Visit Obstetrics and Raz, Chika Sanchez, Mixed inco ntinence; Gynecology at [facility] NYLON MACHINE OPERATOR Pessary maintenance [facility] [place] [address] [place] [address] [phone] Social History Tobacco Use Types Packs/Day Years [...] Sign Reading Time Taken Comments Blood Pressure 123/64 03/09/2021 1:28 PM EDT Pulse 69 03/09/2021 1:28 PM EDT Temperature 36 ??C (96.8 ??F) 03/09/2021 1:28 PM EDT Respiratory Rate 16 03/09/2021 1:28 PM EDT Oxygen Saturation 97% 03/09/2021 1:28 PM EDT Inhaled Oxygen Concentration - - Weight 83.5 kg (184 lb) 03/09/2021 1:28 PM EDT Height 162.6 cm (5' 4) 03/09/2021 1:28 PM EDT Body Mass Index 31.58 03/09/2021 1:28 PM EDT documented in this encounter Progress Notes Chika Crandall APRN - 03/09/2021 1:45 PM EDT Patient Active Problem List Diagnosis Code ??? [...] (ISD) N36.42 ??? Pessary maintenance Z46.89 SUBJECTIVE: Carol Keller comes in today for a 6 month pessary check. Pessary type: #3 ring with support--EMLA please She denies vaginal bleeding, discharge, or pain. She asks to be staright cathed for urine specimen as she thinks she may have a UTI. Under aseptic conditions she is straight cathed for about 120 mL clear straw colored urine. OBJECTIVE: Blood pressure 123/64, pulse 69, temperature 36 ??C (96.8 ??F), resp. rate 16, height 162.6 cm (5' 4), weight 83.5 kg (184 lb), SpO2 97 %. A prefinish operator was present for the examination: Stacey Castro Pelvic: Normal external genitalia, including urethral meatus and perineum. Vagina: Mild patchy erythema, no bleeding, no granulation tissue Cervix: No lesion or bleeding Bimanual: no mass or tissue defect Rectal deferred. ASSESSMENT: Carol Keller is a 70 y.o. year old woman with: ?? Uterovaginal prolapse. Managing well with the pessary. ?? Recent UTI PLAN: ??? The pessary was removed, cleansed and replaced. Micro UA with reflex culture. ??? Return in 6 months for recheck. Chika Crandall APRN Division of Female Pelvic Medicine & Reconstructive Surgery documented in this encounter Plan of Treatment Upcoming Encounters Date Type Specialty Care Team Description 02/11/2022 Scheduled View Only Hematology and Ángel Fischer Oncology [facility] ONCOLOGY [place], [place] [address] (Wo rk) 02/11/2022 TH Visit (TeleHealth) Hematology Ángel Kimbrough Oncology [facility] ONCOLOGY [place], [place] [address] (Wo rk) 02/11/2022 Infusion Hematology and Oncology 02/11/2022 Office Visit Hematology and Jazzy Armendariz R D Oncology [facility] CESAR HEMATOLOGY AND ONCOLOGY [place], [place] [address] (Wo rk) 02/22/2022 TH Visit (TeleHealth) Hematology and Yaquelin Celis E, [facility] HEMATOLOGY AND ONCOLOGY [place], [place] [address] (Wo rk) 02/25/2022 Office Visit Hematology Ángel Kimbrough Oncology [facility] ONCOLOGY [place], [place] [address] (Wo rk) 02/25/2022 Infusion Hematology and Oncology 03/10/2022 Scheduled View Only Obstetrics and Nurse, Julian COLEMAN, mark up designer 03/10/2022 Office Visit Obstetrics and Shazia Whitley, Gynecology NYLON MACHINE OPERATOR [facility] UROGYNECOLOGY [place], [place] [address] (Wo rk) 03/11/2022 Office Visit Hematology and Ángel Fischer MD [facility] [place] [address] Oncology Alyssa Joseph, [address] [place] [address] 03/11/2022 Infusion Hematology and Oncology 03/25/2022 Office Visit Hematology and Alyssa Joseph, Oncology [address] MEDICAL ONCOLOGY [place], [place] [phone] (Wo rk) 03/25/2022 Infusion Hematology and Oncology 03/31/2022 Office Visit Hematology and Alan Livingston M D [facility] DR HEMATOLOGY/[place] [address] Oncology Nilam So, [facility] DR HEMATOLOGY/[place] [address] 04/08/2022 Office Visit Hematology and Ángel Fischer MD [facility] [place] [address] Oncology Alyssa Joseph, [address] MEDICAL ONCOLOGY [place], [place] [phone] 04/08/2022 Infusion Hematology and Oncology documented as of this encounter Procedures Procedure Name Priority Date/Time Associated Diagnosis Comme nts URINALYSIS Routine 03/09/2021 1:30 PM Results f or this MICROSCOPIC EXAM EDT procedure a re in the results section. URINALYSIS WITH Routine 03/09/2021 1:30 PM Mixed incontinence Results for this REFLEX CULTURE EDT procedure are in the results section. URINE CULTURE Routine 03/09/2021 1:30 PM Results for this EDT procedure are i n the results section. documented in this encounter Results (ABNORMAL) Urine culture (03/09/2021 1:30 PM EDT) [facility] gist Method Time Signature Urine Culture Greater than MADIHA 50,000 cfu/mL [facility] coli (A) [facility] Organism Escherichia MADIHA coli (A) [facility] Specimen Anatomical Collection Method Collection Time Receive d Time (Source) Location / / Volume Laterality Straight 03/09/2021 1:30 PM 5:06 Catheter Urine EDT PM EDT Resulting Agency Comment Spec In Lab Organism Antibiotic Method Susceptibility Escherichia coli Amikacin VITEK 2 METHOD Sensitive Escherichia coli Ampicillin + Sulbactam VITEK 2 METHOD Resistan t Escherichia coli Aztreonam VITEK 2 METHOD Sensitive Escherichia coli Cefazolin VITEK 2 METHOD Sensitive Escherichia coli Ceftazidime VITEK 2 METHOD <=1: Sensitive Escherichia coli Ceftriaxone VITEK 2 METHOD Sensitive Escherichia coli Ertapenem VITEK 2 METHOD Sensitive Escherichia coli Gentamicin VITEK 2 METHOD Sensitive Escherichia coli Levofloxacin VITEK 2 METHOD Sensitive Comment: Levofloxacin and Ciprofloxac in may not adequately treat infections in critically ill patients even when isolates test susceptible in the laboratory. Contact Infectious Disease b efore using in critically ill patients. Escherichia coli Meropenem VITEK 2 METHOD <=0.25: Sensiti ve Escherichia coli Nitrofurantoin VITEK 2 METHOD Sensitive Escherichia coli Piperacillin/Tazobactam VITEK 2 METHOD <=4: Se nsitive Escherichia coli Tetracycline VITEK 2 METHOD Sensitive Escherichia coli Tobramycin VITEK 2 METHOD Sensitive Escherichia coli Trimethoprim/Sulfa VITEK 2 METHOD Sensitive Chika Crandall APRN MICROBIOLOGY - GENERAL ORDER MELYSSA Performing Organization Address City/[facility]/[place] [address] (ABNORMAL) Urinalysis Microscopic Exam (03/09/2021 1:30 PM EDT) Analysis Performed At Path logist Time Signature RBC UA 11 (H) 0 - 4 /HPF [facility] WBC UA 43 (H) 0 - 5 /HPF [facility] Bacteria UA Many (A) None /HPF [facility] Hyaline Cast 1 0 - 2 /LPF [facility] Specimen Anatomical Collection Method Collection Time Receive d Time (Source) Location / / Volume Laterality Straight 03/09/2021 1:30 PM 4:13 Catheter Urine EDT PM EDT Resulting Agency Comment Spec In Lab Chika Crandall APRN URINE ORDERABLES Performing Organization Address City/[facility] Phon e Number [address] (ABNORMAL) Urinalysis with reflex Culture (03/09/2021 1:30 PM EDT) [facility] g[facility] Method Time Signature Glucose UA Negative Negative [facility] mg/dL [facility] Protein UA Negative Negative [facility] mg/dL [facility] Bilirubin UA Negative Negative [facility] mg/dL [facility] Comment: Clinical correlation required for positi ve Urine Bilirubin results as false positive may occur with some drugs and d rug related products. If a false positive is suspected a serum total bili reyes should be considered if clinically indicated. Urobilinogen UA Normal Normal mg/dL [facility] pH UA 6.0 5.0 - 8.0 [facility] Blood UA Moderate (A) Negative mg/dL [facility] Ketones UA Negative Negative mg/dL [facility] Nitrite UA Positive (A) Negative [facility] Leukocytes UA Moderate (A) Negative [facility]ORY Appearance UA Clear Clear [facility] Spec [place] UA 1.010 1.005 - 1.030 [facility] Color UA Yellow Yellow [facility] Culture Reflexed Yes [facility] Specimen Anatomical Collection Method Collection Time Receive d Time (Source) Location / / Volume Laterality Straight 03/09/2021 1:30 PM 4:13 Catheter Urine EDT PM EDT Resulting Agency Comment Spec In Lab Chika Crandall APRN URINE ORDERABLES Performing Organization Address City/State/[place] [address] documented in this encounter Visit Diagnoses Diagnosis Mixed incontinence Mixed incontinence urge and stress (male )(female) Pessary maintenance Fitting and adjustment of other device documented in this encounter Care Teams Theater Teacher Relationship Specialty Start Date End Date Mook Coffey DO PCP - General Family Medicine 02/16/[address] [place] [phone] documented as of this encounter
--- OUTSIDE RECORDS SUMMARY | 2022-02-11 01:07 | XMS_ITS | Encounter Summary ---
:1950 Author Organization [facility] Address [address] [place] [address] Care Team Providers Name Role Phone Mook Coffey DO Primary Care Provider Encounter Details Date Type Department Care Team Description 07/09/2021 Orders Only Hematology/Oncology at Alan Livingston MD CLL (chronic [facility] lymphocytic leukemia) [address] [place], [place] HEMATOLOGY/ONCOLOG [address] Y DEPT. [phone] [place], [place] [address] Social History Tobacco Use Types [...] place to sleep or slept in a mcc (including now)? Sex Assigned at Date Recorded Female 12/24/2020 12:51 PM EDT documented as of this encounter Plan of Treatment Upcoming Encounters Date Type Specialty Care Team Description 02/11/2022 Scheduled View Only Hematology and Ángel Fischer Oncology [facility] ONCOLOGY [place], [place] [address] (Shana hewitt) 02/11/2022 TH Visit (TeleHealth) Hematology Ángel Kimbrough Oncology [facility] ONCOLOGY [place], [place] 0375 (Wo rk) 02/11/2022 Infusion Hematology and Oncology 02/11/2022 Office Visit Hematology and Jazzy Armendariz R D Oncology [facility] HEMATOLOGY AND ONCOLOGY [place], [place] 0375 (Wo rk) 02/22/2022 TH Visit (TeleHealth) Hematology and Yaquelin Celis Oncology E, [facility] HEMATOLOGY AND ONCOLOGY [place], [place] 0375 (Wo rk) 02/25/2022 Office Visit Hematology and Ángel Fischer Oncology [facility] ONCOLOGY [place], [place] [address] (Wo rk) 02/25/2022 Infusion Hematology and Oncology 03/10/2022 Scheduled View Only Obstetrics and Nurse, Julian COLEMAN, production weigher 03/10/2022 Office Visit Obstetrics and Gutierrez, Shazia Baer, Gynecology [facility] UROGYNECOLOGY [place], [place] 0375 (Wo rk) 03/11/2022 Office Visit Hematology and Ángel Fischer MD [facility] [place] [address] Oncology Alyss[address] Joseph[address] ONCOLOGY [place], [place] [address] 03/11/2022 Infusion Hematology and Oncology 03/25/2022 Office Visit Hematology and Alyssa Joseph, Oncology [address] ONCOLOGY [place], [place] [address] (Wo rk) 03/25/2022 Infusion Hematology and Oncology 03/31/2022 Office Visit Hematology and Alan Livingston M D [facility] HEMATOLOGY/[place] [address] Oncology Nilam So [facility] HEMATOLOGY/[place] [address] 04/08/2022 Office Visit Hematology and Ángel Fischer MD [facility] [place] [address] Oncology Alyssa Joseph, [address] [place] [address] 04/08/2022 Infusion Hematology and Oncology Scheduled Orders Name Type Priority Associated Diagnoses Order S chedule Lactate Dehydrogenase Lab STAT CLL (chronic lympho cytic As Needed for 4 leukemia) Occurrences sta rting 07/13/2021 unti l 07/09/2022 documented as of this encounter Visit Diagnoses Diagnosis CLL (chronic lymphocytic leukemia) Chronic lymphoid leukemia, without menti on of having achieved remission documented in this encounter Care Teams Catering Service Manager Relationship Specialty Start Date End Date Mook Coffey DO PCP - General Family Medicine 02/16/[address] [place] [phone] documented as of this encounter
--- OUTSIDE RECORDS SUMMARY | 2022-02-11 01:07 | XMS_ITS | Encounter Summary ---
:1950 Author Organization [facility] [place] [address] Care Team Providers Name Role Phone Mook Coffey DO Primary Care Provider Reason for Referral Diagnostic Test (Routine) - Authorized Specialty Diagnoses / Procedures Referred By Contact Refer red To Contact Radiology Diagnoses Malignant neoplasm of ascending colon Ángel Fischer MD Procedures CT Chest Abdomen Pelvis w Contrast (Generic) [facility] [place] [address] Referral ID Status Reason Start Expiration Visits Visits Date Date Requested Authorized [id number] Authorized Specialty 01/31/2022 08/01/2023 1 1 Service Requested Encounter Details Date Type Department Care Team Description 01/31/2022 Orders Only Hematology and Ángel Fischer Maligna nt neoplasm of Oncology at [facility] ascending colon [facility] [address] [place] [address] ONCOLOGY [phone] [place], [place] [address] Social History Tobacco Use Types [...] place to sleep or slept in a detention (including now)? Sex Assigned at Date Recorded Female 12/24/2020 12:51 PM EDT documented as of this encounter Plan of Treatment Upcoming Encounters Date Type Specialty Care Team Description 02/11/2022 Scheduled View Only Hematology and Ángel Fischer Oncology [facility] DR L[place]NDSAY [place], [place] [address] (Shana hewitt) 02/11/2022 TH Visit (TeleHealth) Ángel Hill Oncology [facility] DR [place]SA[place], [place] [address] (Wo rk) 02/11/2022 Infusion Hematology and Oncology 02/11/2022 Office Visit Hematology and Jazzy Armendariz R D [facility] CESAR HEMATOLOGY AND ONCOLOGY [place], [place] [address] (Wo rk) 02/22/2022 TH Visit (TeleHealth) Hematology and Yaquelin Celis Oncology E, [facility] HEMATOLOGY AND ONCOLOGY [place], [place] [address] (Wo rk) 02/25/2022 Office Visit Hematology and Ángel Fischer, Oncology [facility] ONCOLOGY [place], [place] [address] (Wo rk) 02/25/2022 Infusion Hematology and Oncology 03/10/2022 Scheduled View Only Obstetrics and Nurse, Julian COLEMAN, flexible nanny 03/10/2022 Office Visit Obstetrics and Shazia Whitley, Gynecology [facility] UROGYNECOLOGY [place], [place] [address] (Wo rk) 03/11/2022 Office Visit Hematology and Ángel Fischer MD [facility] [place] [address] Oncology Alyssa Joseph, [address] MEDICAL ONCOLOGY [place], [place] [phone] 03/11/2022 Infusion Hematology and Oncology 03/25/2022 Office Visit Hematology and Alyssa Joseph Oncology [address] MEDICAL ONCOLOGY [place], [place] [phone] (Wo rk) 03/25/2022 Infusion Hematology and Oncology 03/31/2022 Office Visit Hematology and Alan Livingston M D [facility] HEMATOLOGY/[place] [address] Oncology Nilam So, [facility] DR HEMATOLOGY/[place] [address] 04/08/2022 Office Visit Hematology and Ángel Fischer MD [facility] [place] [address] Oncology Alyssa Joseph, [address] [place] [address] 04/08/2022 Infusion Hematology and Oncology Scheduled Orders Name Type Priority Associated Diagnoses Order S chedule CT Chest Abdomen Imaging Routine Malignant neoplasm of Ex pected: 02/08/2022 Pelvis w Contrast ascending colon (Approx imate), (Generic) Expires: 2022 documented as of this encounter Visit Diagnoses Diagnosis Malignant neoplasm of ascending colon documented in this encounter Care Teams Senior Devops Engineer Relationship Specialty Start Date End Date Mook Coffey DO PCP - General Family Medicine 02/16/[address] [place] [phone] documented as of this encounter
--- OUTSIDE RECORDS SUMMARY | 2022-02-11 01:07 | XMS_ITS | Encounter Summary ---
:1950 Author Organization [facility] [place] [address] Care Team Providers Name Role Phone Erlinda Mook Keron MEHTA Primary Care Provider Encounter Details Date Type Department Care Team Description 07/22/2021 Office Visit Hematology/Oncology Shayna Livingston MD [facility] DR HEMATOLOGY/[place] [address] CLL (chronic at [facility] Nilam So APRN [facility] DR HEMATOLOGY/[place] [address] lymphocytic leukemia) [address] [place] [phone] Social History Tobacco Use Types Packs/Day [...] Sign Reading Time Taken Comments Blood Pressure 133/66 07/22/2021 11:20 AM EST Pulse 65 07/22/2021 11:20 AM EST Temperature 35.5 ??C (95.9 ??F) 07/22/2021 11:20 AM EST Respiratory Rate 17 07/22/2021 11:20 AM EST Oxygen Saturation 98% 07/22/2021 11:20 AM EST Inhaled Oxygen Concentration - - Weight 74.4 kg (164 lb) 07/22/2021 11:20 AM EST Height 162.6 cm (5' 4) 07/22/2021 11:20 AM EST Body Mass Index 28.15 07/22/2021 11:20 AM EST documented in this encounter Progress Notes Nilam So, PEDIATRIC SURGEON - 07/22/2021 11:30 AM EST Subjective Patient ID: Carol Keller is a 71 y.o. female here for f/u of CLL Patient Active Problem List Diagnosis ??? Pessary maintenance Ring with support Needs removal and cleaning q 4-6 mos August 2021 ??? Urethral sphincter deficiency, intrinsic (ISD) ??? [...] only Pneumovax 2014 HPI Anahi is doing better - she did have GI work up for her diarrhea - she had some inflammation - colitis - no further diarrhea since her work - up. Prior to this she had diarrhea for 2 months and had lost 30 pounds - she is now eating better and is starting to gain a few pounds. She is taking lactaid with dairy - not sure if it is helping. This has been an ongoing issues for her for years - predates her CLL diagnosis. She denies any new or concerning lumps or bumps, no abdominal discomfort, no night sweats. No other recent infections. Review of Systems Constitutional: Negative. HENT: Negative. Eyes: Negative. Respiratory: Negative. Negative for cough and shortness of breath. Cardiovascular: Negative. Negative for chest pain, palpitations and leg swelling. Gastrointestinal: Negative for constipation, nausea and vomiting. Improved as above Genitourinary: Negative. Musculoskeletal: Negative. Skin: Negative. Neurological: Negative. Negative for weakness and numbness. Hematological: Negative. Psychiatric/Behavioral: Negative. Objective Physical Exam Constitutional: General: She is [...] Left upper body: No supraclavicular adenopathy. Comments: Fullness right groin but no discreet nodes. Skin: General: Skin is warm and dry. Neurological: Mental Status: She is alert and oriented to person, place, and time. Lab Results Component Value Date WBC 117.4 05/27/2021 HGB 13.9 05/27/2021 HCT 47.4 05/27/2021 MCV 90.2 12/28/2020 PLATELET 167 05/27/2021 \ Chemistry Component Value Date/Time NA 143 06/05/2020 0000 K 3.8 06/05/2020 0000 CL 102 01/30/2017 1412 CO2 28 01/30/2017 1412 BUN 20 12/28/2020 0000 CREATININE 1 05/27/2021 0000 Component Value Date/Time CALCIUM 8.7 06/05/2020 0000 ALKPHOS 74 06/05/2020 0000 AST 33 06/05/2020 0000 ALT 23 06/05/2020 0000 BILITOT 0.3 06/05/2020 0000 Lab Results Component Value Date LDH 446 12/28/2020 Assessment and Plan Assessment: 20 year old with good risk CLL. Has never been treated. Counts stable, No worrisome or symptomatic adenoapthy. No B symptoms.ALC is also stable. No recurrent infections, no signs of AIHA orITP. No concern for transformation. No indication for treatment at this time. ?? Reviewed CLL and indications for therapy, Also reviewed inherent increase risk for infection. Her vaccines are UTD. Chronic diarrhea - this has been improving - she does have GI follow up coming up. Will continue to monitor. We will continue to monitor prospectively in hematology clinic. Carol Keller will return to clinic in 4 months. she will call before then if any concerns or changes in status. documented in this encounter Plan of Treatment Upcoming Encounters Date Type Specialty Care Team Description 02/11/2022 Scheduled View Only Hematology and Ángel Fischer Oncology [facility] ONCOLOGY [place] [phone] (Wo rk) 02/11/2022 TH Visit (TeleHealth) Hematology Ángel Kimbrough Oncology [facility] [address] UMANA [place], [place] [address] (Wo rk) 02/11/2022 Infusion Hematology and Oncology 02/11/2022 Office Visit Hematology and Jazzy Armendariz R D Oncology [facility] HEMATOLOGY AND ONCOLOGY [place], [place] [address] (Wo rk) 02/22/2022 TH Visit (TeleHealth) Hematology and Yaquelin Celis Oncology E, [facility] HEMATOLOGY AND ONCOLOGY [place], [place] [address] (Wo rk) 02/25/2022 Office Visit Hematology Ángel Kimbrough Oncology [facility] ONCOLOGY [place], [place] [address] (Wo rk) 02/25/2022 Infusion Hematology and Oncology 03/10/2022 Scheduled View Only Obstetrics and Nurse, Julian COLEMAN, school bus monitor 03/10/2022 Office Visit Obstetrics and Shazia Whitley Gynecology PEDIATRIC SURGEON [facility] UROGYNECOLOGY [place], [place] [address] (Wo rk) 03/11/2022 Office Visit Hematology and Ángel Fischer MD [facility] [place] [address] [address] MEDICAL ONCOLOGY [place], [place] [address] 03/11/2022 Infusion Hematology and Oncology 03/25/2022 Office Visit Hematology and Alyssa Joseph, Oncology [address] MEDICAL ONCOLOGY [place], [place] [address] (Wo rk) 03/25/2022 Infusion Hematology and Oncology 03/31/2022 Office Visit Hematology and Alan Livingston M D [facility] DR HEMATOLOGY/[place] [address] [facility]cology [facility] [address] 04/08/2022 Office Visit Hematology and Ángel Fischer MD [facility] [place] [address] [address] Joseph[address] MEDICAL ONCOLOGY [place], [place] [phone] 04/08/2022 Infusion Hematology and Oncology documented as of this encounter Visit Diagnoses Diagnosis CLL (chronic lymphocytic leukemia) Chronic lymphoid leukemia, without menti on of having achieved remission documented in this encounter Care Teams Rib Cutter Relationship Specialty Start Date End Date Mook Coffey DO PCP - General Family Medicine 02/16/[address] [place] [phone] documented as of this encounter
--- OUTSIDE RECORDS SUMMARY | 2022-02-11 01:07 | XMS_ITS | Encounter Summary ---
:1950 Author Organization [facility] [place] [address] Care Team Providers Name Role Phone Mook Coffey DO Primary Care Provider Encounter Details Date Type Department Care Team Description 12/02/2021 Telephone Hematology/Oncology at [facility] Nilam APRN [address] HEMATOLOGY/ONCOLOGY [place], [place] [address] DEPT. [phone] [place], [place] [address] (Wo rk) Social History Tobacco [...] place to sleep or slept in a alf (including now)? Sex Assigned at Date Recorded Female 12/24/2020 12:51 PM EDT documented as of this encounter Miscellaneous Notes Telephone Encounter - Nilam So APRN - 12/02/2021 3:36 PM EDT TC with Anahi - reviewed lab resuls - clearly iron deficient. She did see GI yesterday - and she is being scheduled to have Upper GI done to evaluate for source of bleeding. She will start oral iron - one OTC QOD - reviewed side effects = aware to monitor bowels closely. Will also push foods high in mara. Will re-check cbc, retic and ferritin in one month time to ensure sheis responding. documented in this encounter Plan of Treatment Upcoming Encounters Date Type Specialty Care Team Description 02/11/2022 Scheduled View Only Hematology and Ángel Fischer, Oncology [facility] DR [place], [place] [address] (Wo rk) 02/11/2022 TH Visit (TeleHealth) Hematology and Ángel Fischer Oncology [facility] ONCOLOGY [place], [place] [address] (Wo rk) 02/11/2022 Infusion Hematology and Oncology 02/11/2022 Office Visit Hematology and Jazzy Armendariz R D [facility] DRIVE HEMATOLOGY AND ONCOLOGY [place], [place] [address] (Wo rk) 02/22/2022 TH Visit (TeleHealth) Hematology and Yaquelin Celis Oncology E, [facility] HEMATOLOGY AND ONCOLOGY [place], [place] [address] (Wo rk) 02/25/2022 Office Visit Hematology and Ángel Fischer Oncology [facility] ONCOLOGY [place], [place] [address] (Wo rk) 02/25/2022 Infusion Hematology and Oncology 03/10/2022 Scheduled View Only Obstetrics and Nurse, Oboneal COLEMAN, manager produce 03/10/2022 Office Visit Obstetrics and Shazia Whitley Gynecology [facility] UROGYNECOLOGY [place], [place] [address] (Wo rk) 03/11/2022 Office Visit Hematology and Ángel Fischer MD [facility] [place] [address] Oncology Alyssa Joseph[address] MEDICAL ONCOLOGY [place], [place] [address] 03/11/2022 Infusion Hematology and Oncology 03/25/2022 Office Visit Hematology and Alyssa Joseph, Oncology [address] MEDICAL ONCOLOGY [place], [place] [phone] (Wo rk) 03/25/2022 Infusion Hematology and Oncology 03/31/2022 Office Visit Hematology and Alan Livingston M D [facility] DR HEMATOLOGY/[place] [address] Oncology Nilam So, [facility] DR HEMATOLOGY/[place] [address] 04/08/2022 Office Visit Hematology and Ángel Fischer MD [facility] [place] [address] Oncology Alyssa Joseph[address] MEDICAL ONCOLOGY [place], [place] [address] 04/08/2022 Infusion Hematology and Oncology Scheduled Orders Name Type Priority Associated Diagnoses Order S chedule CBC (with Diff) Lab STAT CLL (chronic lymphocytic Expected: 01/02/2022, leukemia) Expires: 2022 Reticulocyte Count Lab STAT CLL (chronic lymphocyt ic Expected: 01/02/2022, leukemia) Expires: 2022 Ferritin Lab STAT CLL (chronic lymphocytic Exp ected: 01/02/2022, leukemia) Expires: 2022 documented as of this encounter Visit Diagnoses Diagnosis CLL (chronic lymphocytic leukemia) Chronic lymphoid leukemia, without menti on of having achieved remission Anemia, unspecified type documented in this encounter Care Teams Furniture Builder Relationship Specialty Start Date End Date Mook Coffey DO PCP - General Family Medicine 02/16/[address] [place] [phone] documented as of this encounter
--- OUTSIDE RECORDS SUMMARY | 2022-02-11 01:07 | XMS_ITS | Encounter Summary ---
:1950 Author Organization [facility] [place] [address] Care Team Providers Name Role Phone Mook Coffey DO Primary Care Provider Encounter Details Date Type Department Care Team Description 01/13/2022 External Results Medical Records Provider, Scanning [facility] [place] [address] Social History Tobacco Use Types Packs/Day [...] View Only Hematology and Ángel Fischer Oncology [facility] ONCOLOGY [place] [address] (Wo rk) 02/11/2022 TH Visit (TeleHealth) Ángel Hill Oncology [facility] DR UMANA [place], [place] [address] (Wo rk) 02/11/2022 Infusion Hematology and Oncology 02/11/2022 Office Visit Hematology and Jazzy Armendariz R D Oncology [facility]AR HEMATOLOGY AND ONCOLOGY [place], [place] [address] (Wo rk) 02/22/2022 TH Visit (TeleHealth) Hematology and Yaquelin Celis Oncology E, [facility] HEMATOLOGY AND ONCOLOGY [place], [place] [address] (Wo rk) 02/25/2022 Office Visit Ángel Hill Oncology [facility] DR UMANA [place], [place] [address] (Wo rk) 02/25/2022 Infusion Hematology and Oncology 03/10/2022 Scheduled View Only Obstetrics and Nurse, Julian COLEMAN, pediatric urologist 03/10/2022 Office Visit Obstetrics and Shazia Whitley, Gynecology [facility] UROGYNECOLOGY [place], [place] [address] (Wo rk) 03/11/2022 Office Visit Hematology and Ángel Fischer MD [facility] [place] [address] Oncology Alyssa Joseph[address] ONCOLOGY [place], [place] [phone] 03/11/2022 Infusion Hematology and Oncology 03/25/2022 Office Visit Hematology and Alyssa Joseph, Oncology [address] ONCOLOGY [place], [place] [phone] (Wo rk) 03/25/2022 Infusion Hematology and Oncology 03/31/2022 Office Visit Hematology and Alan Livingston M D [facility] DR HEMATOLOGY/[place] [address] [facility] HEMATOLOGY/[place] [address] 04/08/2022 Office Visit Hematology and Ángel Fischer MD [facility] [place] [address] Oncology Alyssa Joseph[address] ONCOLOGY [place], [place] [phone] 04/08/2022 Infusion Hematology and Oncology documented as of this encounter Procedures Procedure Name Priority Date/Time Associated Diagnosis Comme nts SURGICAL PATHOLOGY Routine 01/13/2022 Results f or this SCAN procedure are i n the results section . documented in this encounter Results Scan Doc: Surgical Pathology (01/13/2022) Narrative This result has an attachment that is no t available. Ángel Fischer MD MEDIA MGR SCAN EXT ORDR/RSLT documented in this encounter Visit Diagnoses Not on filedocumented in this encounter Care Teams Trimming Press Operator Relationship Specialty Start Date End Date Mook Coffey DO PCP - General Family Medicine 02/16/[address] [place] [phone] documented as of this encounter
--- OUTSIDE RECORDS SUMMARY | 2022-02-11 01:07 | XMS_ITS | Encounter Summary ---
:1950 Author Organization [facility] [place] [place] [address] Care Team Providers Name Role Phone Mook Coffey DO Primary Care Provider Reason for Visit Reason Onset Date Comments Abnormal Labs 11/23/2021 Encounter Details Date Type Department Care Team Description 11/23/2021 Telephone Hematology/Oncology at [facility] Nilam APRN Abnormal Labs [place] [address] HEMATOLOGY/ONCOLOGY [place], [place] [phone] DEPT. [phone] [place], [place] [address] (Wo rk) Social History Tobacco [...] Telephone Encounter - Maddie Richardson RN - 11/23/2021 11:40 AM EDT Critical WBC of 88.66 reviewed with Nilam So NP. Pt will be seen in clinic this 11/25/21. No change in plan at present. documented in this encounter Plan of Treatment Upcoming Encounters Date Type Specialty Care Team Description 02/11/2022 Scheduled View Only Hematology and Ángel Fischer Oncology [facility] ONCOLOGY [place], [place] [address] (Shana hewitt) 02/11/2022 TH Visit (TeleHealth) Hematology and Ángel Fischer Oncology [facility] DR [place], [place] [address] (Shana hewitt) 02/11/2022 Infusion Hematology and Oncology 02/11/2022 Office Visit Hematology and Jazzy Armendariz R D [facility] DRIVE HEMATOLOGY AND ONCOLOGY [place], [place] [address] (Wo rk) 02/22/2022 TH Visit (TeleHealth) Hematology and Yaquelin Celis Oncology E, [facility] HEMATOLOGY AND ONCOLOGY [place], [place] [address] (Wo rk) 02/25/2022 Office Visit Hematology and Ángel Fischer Oncology [facility] ONCOLOGY [place], [place] [address] (Wo rk) 02/25/2022 Infusion Hematology and Oncology 03/10/2022 Scheduled View Only Obstetrics and Nurse, Julian COLEMAN, coding educator 03/10/2022 Office Visit Obstetrics and Shazia Whitley Gynecology [facility] UROGYNECOLOGY [place], [place] [address] (Wo rk) 03/11/2022 Office Visit Hematology and Ángel Fischer MD [facility] [place] [address] Oncology Alyssa Joseph [address] MEDICAL ONCOLOGY [place], [place] [address] 03/11/2022 Infusion Hematology and Oncology 03/25/2022 Office Visit Hematology and Alyssa Joseph Oncology [address] MEDICAL ONCOLOGY [place], [place] [address] (Wo rk) 03/25/2022 Infusion Hematology and Oncology 03/31/2022 Office Visit Hematology and Alan Livingston M D [facility] HEMATOLOGY/[place] [address] Oncology Nilam So, ADEN[facility] DR HEMATOLOGY/[place] [address] 04/08/2022 Office Visit Hematology and Ángel Fischer MD [facility] [place] [address] Oncology [address]lyss[address] Joseph[address] MEDICAL ONCOLOGY [place], [place] [address] 04/08/2022 Infusion Hematology and Oncology documented as of this encounter Visit Diagnoses Not on filedocumented in this encounter Care Teams Dye Line Operator Relationship Specialty Start Date End Date Mook Coffey DO PCP - General Family Medicine 02/16/[address] [place] [phone] documented as of this encounter
--- OUTSIDE RECORDS SUMMARY | 2022-02-11 01:07 | XMS_ITS | Encounter Summary ---
:1950 Author Organization [facility] [place] [address] Care Team Providers Name Role Phone Mook Coffey DO Primary Care Provider Reason for Referral Consultation (Routine) - Closed Specialty Diagnoses / Procedures Referred By Contact Refer red To Contact Hematology and Diagnoses Malignant neoplasm of colon, unspecified part of colon Blayne Shrestha, [facility] Hem Onc 3k Oncology [address] [place] [phone] Referral ID Status Reason Start Date Expiration Date Visits V isits Requested Authorized [id number] Closed Consult, 01/05/2022 01/05/2023 1 1 Test & Treat Encounter Details Date Type Department Care Team Description 01/05/2022 Transcribe Orders eDH Incoming Blayne Shrestha nt neoplasm Referrals MD Sarah of colon, 40 Medical unspecified par t of [facility] [place] [address] Social History Tobacco Use Types Packs/Day Years [...] Scheduled View Only Hematology Ángel Kimbrough Oncology [facility] DR [place], [place] [address] (Wo rk) 02/11/2022 TH Visit (TeleHealth) Ángel Hill H , Oncology [facility] ONCOLOGY [place], [place] [address]375 (Wo rk) 02/11/2022 Infusion Hematology and Oncology 02/11/2022 Office Visit Hematology and Jazzy Armendariz R D Oncology [facility] [address] HEMATOLOGY AND ONCOLOGY [place], [place] 0375 (Wo rk) 02/22/2022 TH Visit (TeleHealth) Hematology and Yaquelin Celis Oncology E, [facility] HEMATOLOGY AND ONCOLOGY [place], [place] 0375 (Wo rk) 02/25/2022 Office Visit Hematology and Ángel Fischer Oncology [facility] ONCOLOGY [place], [place] 0375 (Wo rk) 02/25/2022 Infusion Hematology and Oncology 03/10/2022 Scheduled View Only Obstetrics and Nurse, Julian COLEMAN, gin pole operator 03/10/2022 Office Visit Obstetrics and Shazia Whitley Gynecology [facility] UROGYNECOLOGY [place], [place] 0375 (Wo rk) 03/11/2022 Office Visit Hector and Ángel Fischer MD [facility] [place] [address] Oncology [address] Joseph[address] MEDICAL ONCOLOGY [place], [place] [address] 03/11/2022 Infusion Hematology and Oncology 03/25/2022 Office Visit Hematology and Alyssa Joseph, Oncology [address] MEDICAL ONCOLOGY [place], [place] [phone] (Wo rk) 03/25/2022 Infusion Hematology and Oncology 03/31/2022 Office Visit Hematology and Alan Livingston M D [facility] DR HEMATOLOGY/[place] [address] Oncology Nilam So, FORECLOSURE PARALEGAL [facility] DR HEMATOLOGY/[place] [address] 04/08/2022 Office Visit Hematology and Ángel Fischer MD [facility] [place] [address] Oncology Alyssa Joseph, [address] MEDICAL ONCOLOGY [place], [place] [phone] 04/08/2022 Infusion Hematology and Oncology Scheduled Referrals Name Type Priority Associated Diagnoses Order S chedule Referral to Outpatient Referral Routine Malignant neoplasm Or dered: Hematology and of colon, 01/05/2022 Oncology unspecified part of colon documented as of this encounter Visit Diagnoses Diagnosis Malignant neoplasm of colon, unspecified part of colon documented in this encounter Care Teams Bean Picker Machine Operator Relationship Specialty Start Date End Date Mook Coffey DO PCP - General Family Medicine 02/16/[address] [place] [phone] documented as of this encounter
--- OUTSIDE RECORDS SUMMARY | 2022-02-11 01:08 | XMS_ITS | Encounter Summary ---
:1950 Author Organization [facility] [place] [address] Care Team Providers Name Role Phone Mook Coffey DO Primary Care Provider Reason for Visit Reason Comments Macular Hole Encounter Details Date Type Department Care Team Description 01/31/2020 Office Visit Ophthalmology at [facility] C Venkata Page, 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 [s/p PPV, ERM and ILM peel, SF6 01/05/17 with NNB]; [facility] Macular hole, right eye [s/p PPV, MP, ga s [July 2016] with CBC] [place] [address] [place] [address] OPHTHALMOLOGY DEPT [place], [place] [address] Social History Tobacco Use Types [...] place to sleep or slept in a [place] facility (including now)? Sex Assigned at Date Recorded Female 12/24/2020 12:51 PM EDT documented as of this encounter Progress Notes Venkata Page MD - 01/31/2020 12:30 PM EDT ASSESSMENT: 1. 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 [s/p PPV, ERM and ILM peel, SF6 01/05/17 with NNB] 2. Macular hole, right eye [s/p PPV, MP, gas [July 2016] with CBC] s/p PCIOL OU Visual Acuity Visual Acuity (Snellen - Linear) Right Left Dist cc 20/50 -2 20/20 -1 Dist ph cc NI Near cc 20/40-3 20/20 Correction: Glasses Eccentric fixation OD @ D&N Exam/Findings Today 01/31/20: OD: mild PCO, hole closed with mild overlying ERM OS: clear PCIOL, hole closed PLAN: OCT and exam is stable. See Dr. Walker for routine follow up. OD vision may be improved by YAGcaps. Follow up retina 18-24 months for DFE/OCT Sooner PRN I, Nelly Sawyer, have performed the documentation for this encounter in the presence of and acting as a scribe for Venkata Page MD. I performed the services which were documented by the scribe, and I agree with the accuracy of the documentation in this encounter. Venkata Page MD documented in this encounter Plan of Treatment Upcoming Encounters Date Type Specialty Care Team Description 02/11/2022 Scheduled View Only Hematology Ángel Kimbrough Oncology [facility] ONCOLOGY [place], [place] [address] (Wo rk) 02/11/2022 TH Visit (TeleHealth) Hematology Ángel Kimbrough Oncology [facility] DR UMANA [place], [place] 0[address] (Wo rk) 02/11/2022 Infusion Hematology and Oncology 02/11/2022 Office Visit Hematology and Jazzy Armendariz R D Oncology [facility] CESAR HEMATOLOGY AND ONCOLOGY [place], [place] 0375 (Wo rk) 02/22/2022 TH Visit (TeleHealth) Hematology and Yaquelin Celis Oncology E, [facility] HEMATOLOGY AND ONCOLOGY [place], [place] 0[address] (Wo rk) 02/25/2022 Office Visit Hematology Ángel Kimbrough Oncology [facility] DR UMANA [place], [place] 0[address] (Wo rk) 02/25/2022 Infusion Hematology and Oncology 03/10/2022 Scheduled View Only Obstetrics and Nurse, Julian COLEMAN, merchandise examiner 03/10/2022 Office Visit Obstetrics and Shazia Whitley Gynecology POP SINGER [facility] UROGYNECOLOGY [place], [place] 0[address] (Wo rk) 03/11/2022 Office Visit Hematology and Ángel Fischer MD [facility] [place] [address] On[address]lyss[address] Joseph[address] MEDICAL ONCOLOGY [place], [place] [phone] 03/11/2022 Infusion Hematology and Oncology 03/25/2022 Office Visit Hematology and Alyssa Joseph, Oncology [address] [place] [address] (Wo rk) 03/25/2022 Infusion Hematology and Oncology 03/31/2022 Office Visit Hematology and Alan Livingston M D [facility] DR HEMATOLOGY/[place] [address] [facility] [address] 04/08/2022 Office Visit Hematology and Ángel Fischer MD [facility] [place] [address] Oncology Alyss[address] Joseph[address] MEDICAL ONCOLOGY [place], [place] [phone] 04/08/2022 Infusion Hematology and Oncology documented as of this encounter Visit Diagnoses Diagnosis 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 [s/p PPV, ERM and ILM peel, SF6 01/05/17 with NNB] Macular hole, right eye [s/p PPV, MP, ga s [July 2016] with CBC] Macular cyst, hole, or pseudohole of ret deep documented in this encounter Care Teams Manager Emergency Relationship Specialty Start Date End Date Mook Coffey DO PCP - General Family Medicine 02/16/18 [address] [place] [phone] documented as of this encounter
--- OUTSIDE RECORDS SUMMARY | 2022-02-11 01:08 | XMS_ITS | Encounter Summary ---
:1950 Author Organization [facility] Address [facility] [address] Care Team Providers Name Role Phone Mook Coffey DO Primary Care Provider Reason for Visit Reason Comments Follow-up 3 month pessary check Encounter Details Date Type Department Care Team Description 12/31/2018 Office Visit Obstetrics and Chika Crandall Pessary ma intenance Gynecology at [facility] MARKET DIRECTOR [facility] [place] [address] [place] [address] [phone] (Wo rk) Social History Tobacco Use Types [...] Sign Reading Time Taken Comments Blood Pressure 108/60 12/31/2018 1:46 PM EDT Pulse 72 12/31/2018 1:46 PM EDT Temperature 36.7 ??C (98.1 ??F) 12/31/2018 1:46 PM EDT Respiratory Rate - - Oxygen Saturation 96% 12/31/2018 1:46 PM EDT Inhaled Oxygen Concentration - - Weight 83.9 kg (184 lb 14.4 oz) 12/31/2018 1:46 PM EDT Height 163.8 cm (5' 4.5) 12/31/2018 1:46 PM EDT Body Mass Index 31.25 12/31/2018 1:46 PM EDT documented in this encounter Progress Notes Chika Crandall APRN - 12/31/2018 2:00 PM EDT Patient Active Problem List Diagnosis Code ??? CLL (chronic lymphocytic leukemia) C91.90 ??? SVT (supraventricular tachycardia) I47.1 ??? GERD [...] ??? 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 Pessary type: Ring with support She denies vaginal bleeding, discharge, or pain related to her pessary use. She states that the pessary is managing her symptoms well and that, other than a recent UTI that has since resolved with antibiotic treatment earlier this month, she has not had other significant changes in her health. OBJECTIVE: Blood pressure 108/60, pulse 72, temperature 36.7 ??C (98.1 ??F), height 163.8 cm (5' 4.5), weight 83.9 kg (184 lb 14.4 oz), SpO2 96 %. Pelvic: Normal external genitalia, including urethral meatus and perineum. Vagina: Minimal, <1cm linear area of mucosal irritation at the apex without bleeding or evidence of laceration. No lesions, erythema or discharge noted throughout rest of vaginal surface. Cervix: Surgically absent Bimanual: Deferred Rectal deferred. ASSESSMENT: Carol Keller is a 68 y.o. year old woman with: ?? Prolapse, managing well with the pessary. PLAN: ??? The pessary was removed, cleansed and replaced. ??? Return in 3 months for recheck. Tati Padilla MS4 Division of Female Pelvic Medicine & Reconstructive Surgery This visit was performed jointly with student Tati Padilla, MS4. I was present for all aspects of the visit including the exam. The patient???s history was validated in the patient???s presence and is notable for no complaints. The assessment and plan was formulated at my direction, in summary continue same care and return in 3 months for pessary check. Chika Crandall APRN documented in this encounter Plan of Treatment Upcoming Encounters Date Type Specialty Care Team Description 02/11/2022 Scheduled View Only Hematology and Ángel Fischer Oncology [facility] ONCOLOGY [place], [place] [address] (Wo rk) 02/11/2022 TH Visit (TeleHealth) Hematology Ángel Kimbrough Oncology [facility] ONCOLOGY [place], [place] 0[address] (Wo rk) 02/11/2022 Infusion Hematology and Oncology 02/11/2022 Office Visit Hematology and Jazzy Armendariz R D [facility]AR HEMATOLOGY AND ONCOLOGY [place], [place] 0[address] (Wo rk) 02/22/2022 TH Visit (TeleHealth) Hematology and Yaquelin Celis Oncology E, [facility] HEMATOLOGY AND ONCOLOGY [place], [place] [address] (Wo rk) 02/25/2022 Office Visit Hematology Ángel Kimbrough Oncology [facility] DR UMANA [place], [place] [address] (Wo rk) 02/25/2022 Infusion Hematology and Oncology 03/10/2022 Scheduled View Only Obstetrics and Nurse, Oboneal COLEMAN, records tech 03/10/2022 Office Visit Obstetrics and Shazia Whitley Gynecology MARKET DIRECTOR [facility] UROGYNECOLOGY [place], [place] 0[address] (Wo rk) 03/11/2022 Office Visit Hematology Ángel Kimbrough MD [facility] [place] [address] Oncology Alyssa Joseph[address] MEDICAL ONCOLOGY [place], [place] [address] 03/11/2022 Infusion Hematology and Oncology 03/25/2022 Office Visit Hematology and Alyssa Joseph, Oncology [address] MEDICAL ONCOLOGY [place], [place] [address] (Wo rk) 03/25/2022 Infusion Hematology and Oncology 03/31/2022 Office Visit Hematology and Alan Livingston M D [facility] DR HEMATOLOGY/[place] [address] [facility]cology [facility] [address] 04/08/2022 Office Visit Hematology and Ángel Fischer MD [facility] [place] [address] Oncology Alyssa Joseph[address] MEDICAL ONCOLOGY [place], [place] [phone] 04/08/2022 Infusion Hematology and Oncology documented as of this encounter Procedures Procedure Name Priority Date/Time Associated Diagnosis Comme nts LAB SCAN 02/04/2019 12:00 AM Results for this EDT procedure are i n the results section . LAB SCAN 02/04/2019 12:00 AM Results for this EDT procedure are i n the results section . documented in this encounter Results SCAN DOC: LAB (02/04/2019 12:00 AM EDT) Narrative 02/04/2019 12:00 AM EDT This result has an attachment that is no t available. Ordered by an unspecified provider. Scanning Provider MEDIA MGR SCAN EXT ORDR/RSLT SCAN DOC: LAB (02/04/2019 12:00 AM EDT) Narrative 02/04/2019 12:00 AM EDT This result has an attachment that is no t available. Ordered by an unspecified provider. Scanning Provider MEDIA MGR SCAN EXT ORDR/RSLT documented in this encounter Visit Diagnoses Diagnosis Pessary maintenance Fitting and adjustment of other device documented in this encounter Care Teams Head Nurse Relationship Specialty Start Date End Date Mook Coffey DO PCP - General Family Medicine 02/16/[address] [place] [phone] documented as of this encounter
--- OUTSIDE RECORDS SUMMARY | 2022-02-11 01:08 | XMS_ITS | Encounter Summary ---
:1950 Author Organization [facility] Address [facility] [address] Care Team Providers Name Role Phone Mook Coffey DO Primary Care Provider Encounter Details Date Type Department Care Team Description 05/29/2018 Notes Only Urology at [facility] Carol Montes, [facility] [place] [phone] Social History Tobacco Use Types Packs/Day [...] place to sleep or slept in a [facility] (including now)? Sex Assigned at Date Recorded Female 12/24/2020 12:51 PM EDT documented as of this encounter Progress Notes Carol Hdez RN - 05/29/2018 4:24 PM EST Urine culture collected 05/28/18 requires no treatment per Dr. Monterroso documented in this encounter Plan of Treatment Upcoming Encounters Date Type Specialty Care Team Description 02/11/2022 Scheduled View Only Hematology and Ángel Fischer Oncology [facility] ONCOLOGY [place], [place] [address] (Shaan hewitt) 02/11/2022 TH Visit (TeleHealth) Hematology and Ángel Fischer Oncology [facility] ONCOLOGY [place], [place] [address] (Shana hewitt) 02/11/2022 Infusion Hematology and Oncology 02/11/2022 Office Visit Hematology and Jazzy Armendariz R D Oncology [facility] HEMATOLOGY AND ONCOLOGY [place], [place] [address] (Shana hewitt) 02/22/2022 TH Visit (TeleHealth) Hematology and Yaquelin Celis Oncology E, [facility] HEMATOLOGY AND ONCOLOGY [place], [place] [address] (Wo rk) 02/25/2022 Office Visit Hematology and Ángel Fischer Oncology [facility] DR UMANA [place], [place] [address] (Wo rk) 02/25/2022 Infusion Hematology and Oncology 03/10/2022 Scheduled View Only Obstetrics and Nurse, Julian COLEMAN, supervisor poultry processing 03/10/2022 Office Visit Obstetrics and Shazia Whitley, Gynecology [facility] UROGYNECOLOGY [place], [place] 0[address] (Wo rk) 03/11/2022 Office Visit Hematology and Ángel Fischer MD [facility] [place] [address] Oncology [address] Joseph[address] MEDICAL ONCOLOGY [place], [place] [address] 03/11/2022 Infusion Hematology and Oncology 03/25/2022 Office Visit Hematology and Alyssa Joseph Oncology [address] MEDICAL ONCOLOGY [place], [place] [address] (Wo rk) 03/25/2022 Infusion Hematology and Oncology 03/31/2022 Office Visit Hematology and Alan Livingston M D [facility] HEMATOLOGY/ONCOLOGY [place] [address] Oncology Nilam So, [facility] HEMATOLOGY/ONCOLOGY [place] [address] 04/08/2022 Office Visit Hematology and Ángel Fischer MD [facility] [place] [address] Oncology Alyssa Joseph, [address] MEDICAL ONCOLOGY [place], [place] [address] 04/08/2022 Infusion Hematology and Oncology documented as of this encounter Visit Diagnoses Not on filedocumented in this encounter Care Teams Improvement Analyst Relationship Specialty Start Date End Date Mook Coffey DO PCP - General Family Medicine 02/16/[address] [place] [phone] documented as of this encounter
--- OUTSIDE RECORDS SUMMARY | 2022-02-11 01:08 | XMS_ITS | Encounter Summary ---
:1950 Author Organization [facility] Address [facility] [place] [address] Care Team Providers Name Role Phone Mook Coffey DO Primary Care Provider Encounter Details Date Type Department Care Team Description 07/13/2018 Office Visit Urology at [facility] Urinary incontinence, [facility] Katarina evangel[place] [phone] Social History Tobacco Use Types Packs/Day [...] PM EDT documented as of this encounter Patient Instructions Patient InstructionsEdgar Marquez LPN - 07/13/2018 2:00 PM EST documented in this encounter Progress Notes Edgar Marquez LPN - 07/13/2018 2:00 PM EST Patient presents to the clinic for a repeat PVR per Dr. Wahl. If >100 she will need to learn CIC . The patient voided and her PVR was 15 ml. documented in this encounter Plan of Treatment Upcoming Encounters Date Type Specialty Care Team Description 02/11/2022 Scheduled View Only Hematology and Ángel Fischer Oncology [facility] [address] [place] [address] (Shana hewitt) 02/11/2022 TH Visit (TeleHealth) Hematology Ángel Kimbrough Oncology [facility] DR [place] [address] (Shana hewitt) 02/11/2022 Infusion Hematology and Oncology 02/11/2022 Office Visit Hematology and Jazzy Armendariz R D [facility] DRIVE HEMATOLOGY AND ONCOLOGY [place], [place] 0[address] (Wo rk) 02/22/2022 TH Visit (TeleHealth) Hematology and Yaquelin Celis E, [facility] HEMATOLOGY AND ONCOLOGY [place], [place] [address] (Wo rk) 02/25/2022 Office Visit Hematology and Ángel Fischer Oncology [facility] ONCOLOGY [place], [place] [address] (Wo rk) 02/25/2022 Infusion Hematology and Oncology 03/10/2022 Scheduled View Only Obstetrics and NurseJulian II, electronics hardware design engineer 03/10/2022 Office Visit Obstetrics and Shazia Whitley Gynecology [facility] UROGYNECOLOGY [place], [place] [address] (Wo rk) 03/11/2022 Office Visit Hematology and Ángel Fischer MD [facility] [place] [address] Oncology Alyssa Joseph [address] MEDICAL ONCOLOGY [place], [place] [phone] 03/11/2022 Infusion Hematology and Oncology 03/25/2022 Office Visit Hematology and Alyssa Joseph, Oncology [address] MEDICAL ONCOLOGY [place], [place] [phone] (Wo rk) 03/25/2022 Infusion Hematology and Oncology 03/31/2022 Office Visit Hematology and Alan Livingston M D [facility] HEMATOLOGY/[place] [address] Oncology Nilam So APRN [facility] DR HEMATOLOGY/[place] [address] 04/08/2022 Office Visit Hematology and Ángel Fischer MD [facility] [address] Oncology Alyssa Joseph[address] [address] 04/08/2022 Infusion Hematology and Oncology documented as of this encounter Visit Diagnoses Diagnosis Urinary incontinence, overflow Overflow incontinence documented in this encounter Care Teams Biztalk Consultant Relationship Specialty Start Date End Date Mook Coffey DO PCP - General Family Medicine 02/16/[address] [place] [phone] documented as of this encounter
--- OUTSIDE RECORDS SUMMARY | 2022-02-11 01:08 | XMS_ITS | Encounter Summary ---
:1950 Author Organization [facility] Address [facility] [place] [address] Care Team Providers Name Role Phone Mook Coffey DO Primary Care Provider Reason for Visit Reason Comments Follow-up pessary check Encounter Details Date Type Department Care Team Description 09/07/2020 Office Visit Obstetrics and Chika Crandall Pessary ma intenance Gynecology at [facility] UNIT MANAGER [employer] [facility] [place] [address] [place] [address] [phone] (Wo rk) Social History Tobacco Use Types [...] Sign Reading Time Taken Comments Blood Pressure 142/68 09/07/2020 2:53 PM EDT Pulse 76 09/07/2020 2:53 PM EDT Temperature - - Respiratory Rate - - Oxygen Saturation - - Inhaled Oxygen Concentration - - Weight 87.1 kg (192 lb) 09/07/2020 2:53 PM EDT Height - - Body Mass Index 32.46 06/18/2020 1:58 PM EST documented in this encounter Progress Notes Chika Crandall, UNIT MANAGER [employer] - 09/07/2020 2:45 PM EDT Patient Active Problem List Diagnosis [...] Carol Keller comes in today for a 6-month pessary check, which I unfortunately had to reschedule last week. Pessary type: #3 ring with support---EMLA please She denies vaginal bleeding, discharge or pain. She still has occasional urinary urge incontinence. She's satisfied with the pessary, and because ofher h/o PE she is not interested in surgery. OBJECTIVE: Blood pressure 142/68, pulse 76, weight 87.1 kg (192 lb). Pelvic: Normal external genitalia, including urethral meatus and perineum. Vagina: Superficial erythema without erosion or granulation tissue Cervix: No lesion or bleeding, no CMT Bimanual: no tissue defect Rectal deferred. ASSESSMENT: Carol Keller is a 70 y.o. year old woman with: ?? Stage 3 uterovaginal prolapse. Managing well with the pessary. PLAN: ??? The pessary was removed, cleansed and replaced. ??? EMLA cream was placed at the introitus for 10-15 prior to pessary removal. ??? Return in 6 months for recheck. Chika Crandall APRN Division of Female Pelvic Medicine & Reconstructive Surgery documented in this encounter Plan of Treatment Upcoming Encounters Date Type Specialty Care Team Description 02/11/2022 Scheduled View Only Hematology and Ángel Fischer Oncology [facility] [address] [place], [place] [address] (Wo rk) 02/11/2022 TH Visit (TeleHealth) Hematology Ángel Kimbrough Oncology [facility] [address] [place], [place] [address] (Wo rk) 02/11/2022 Infusion Hematology and Oncology 02/11/2022 Office Visit Hematology and Jazzy Armendariz R D [facility] [address] HEMATOLOGY AND ONCOLOGY [place], [place] [address] (Wo rk) 02/22/2022 TH Visit (TeleHealth) Hematology and Yaquelin Celis Oncology E, [facility] DR HEMATOLOGY AND ONCOLOGY [place], [place] [address] (Wo rk) 02/25/2022 Office Visit Hematology and Ángel Fischer, Oncology [facility] ONCOLOGY [place], [place] [address] (Wo rk) 02/25/2022 Infusion Hematology and Oncology 03/10/2022 Scheduled View Only Obstetrics and Nurse, Julian COLEMAN, teaching assistant 03/10/2022 Office Visit Obstetrics and Shazia Whitley Gynecology [facility] UROGYNECOLOGY [place], [place] [address] (Wo rk) 03/11/2022 Office Visit Hematology and Ángel Fischer MD [facility] [place] [address] Oncology Alyssa Joseph, [address] MEDICAL ONCOLOGY [place], [place] [id number] 03/11/2022 Infusion Hematology and Oncology 03/25/2022 Office Visit Hematology and Alyssa Joseph Oncology [address] MEDICAL ONCOLOGY [place], [place] [phone] (Wo rk) 03/25/2022 Infusion Hematology and Oncology 03/31/2022 Office Visit Hematology and Alan Livingston M D [facility] HEMATOLOGY/[place] [address] Oncology Nilam So, [facility] DR HEMATOLOGY/[place] [address] 04/08/2022 Office Visit Hematology and Ángel Fischer MD [facility] [place] [address] Oncology Alyssa Joseph[address] MEDICAL ONCOLOGY [place], [place] [address] 04/08/2022 Infusion Hematology and Oncology documented as of this encounter Visit Diagnoses Diagnosis Pessary maintenance Fitting and adjustment of other device documented in this encounter Care Teams Bore Miner Operator Relationship Specialty Start Date End Date Mook Coffey DO PCP - General Family Medicine 02/16/[address] [place] [phone] documented as of this encounter
--- OUTSIDE RECORDS SUMMARY | 2022-02-11 01:08 | XMS_ITS | Encounter Summary ---
:1950 Author Organization [facility] Address [address] [facility] [address] [place] [address] Care Team Providers Name Role Phone Mook Cfofey DO Primary Care Provider Encounter Details Date Type Department Care Team Description 10/26/2020 Orders Only Hematology/Oncology at Alan Livingston MD CLL (chronic [facility] lymphocytic leukemia) [address] [place], [place] HEMATOLOGY/ONCOLOG [address] Y DEPT. [phone] [place], [place] [address] Social History Tobacco Use Types [...] place to sleep or slept in a snf (including now)? Sex Assigned at Date Recorded Female 12/24/2020 12:51 PM EDT documented as of this encounter Plan of Treatment Upcoming Encounters Date Type Specialty Care Team Description 02/11/2022 Scheduled View Only Hematology and Ángel Fischer Oncology [facility] ONCOLOGY [place], [place] [address] (Shana hewitt) 02/11/2022 TH Visit (TeleHealth) Hematology Ángel Kimbrough Oncology [facility] ONCOLOGY [place], [place] [address] (Wo rk) 02/11/2022 Infusion Hematology and Oncology 02/11/2022 Office Visit Hematology and Jazzy Armendariz R D Oncology [facility] HEMATOLOGY AND ONCOLOGY [place], [place] [address] (Wo rk) 02/22/2022 TH Visit (TeleHealth) Hematology and Yaquelin Celis Oncology E, [facility] HEMATOLOGY AND ONCOLOGY [place], [place] [address] (Wo rk) 02/25/2022 Office Visit Hematology and Ángel Fischer Oncology [facility] ONCOLOGY [place], [place] [address] (Wo rk) 02/25/2022 Infusion Hematology and Oncology 03/10/2022 Scheduled View Only Obstetrics and Nurse, Julian COLEMAN, children's librarian 03/10/2022 Office Visit Obstetrics and Gutierrez, Shazia Baer, Gynecology [facility] UROGYNECOLOGY [place], [place] [address] (Wo rk) 03/11/2022 Office Visit Hematology and Ángel Fischer MD [facility] [place] [address] Oncology Alyssa Joseph[address] ONCOLOGY [place], [place] [address] 03/11/2022 Infusion Hematology and Oncology 03/25/2022 Office Visit Hematology and Alyssa Joseph, Oncology [address] ONCOLOGY [place], [place] [address] (Wo rk) 03/25/2022 Infusion Hematology and Oncology 03/31/2022 Office Visit Hematology and Alan Livingston M D [facility] HEMATOLOGY/[place] [address] Oncology Nilam So [facility] HEMATOLOGY/[place] [address] 04/08/2022 Office Visit Hematology and Ángel Fischer MD [facility] [address] Oncology Alyssa Joseph, [address] [place] [address] 04/08/2022 Infusion Hematology and Oncology documented as of this encounter Visit Diagnoses Diagnosis CLL (chronic lymphocytic leukemia) Chronic lymphoid leukemia, without menti on of having achieved remission documented in this encounter Care Teams Brand Ambassadors Promotional Sales Relationship Specialty Start Date End Date Mook Coffey DO PCP - General Family Medicine 02/16/[address] [place] [phone] documented as of this encounter
--- OUTSIDE RECORDS SUMMARY | 2022-02-11 01:08 | XMS_ITS | Encounter Summary ---
:1950 Author Organization [facility] [place] [address] Care Team Providers Name Role Phone Mook Coffey DO Primary Care Provider Reason for Referral Surgical (Routine) - Specialty Diagnoses / Procedures Referred By Contact Refer red To Contact Diagnoses Urethral sphincter deficiency, intrinsic (ISD) Carol Wahl MD Procedures Collagen Endoscopic Injection [facility] [place] [address] Referral ID Status Reason Start Date Expiration Date Visits V isits Requested Authorized [id number] Consult, 05/28/2018 05/28/2019 1 1 Test & Treat Encounter Details Date Type Department Care Team Description 05/28/2018 Office Visit Urology at [facility] Carol Wahl Urethral sphincter deficienc y, intrinsic (ISD); [facility] MD Maria Teresa Stress [place] [address] UROLOGY DEPT. [phone] [place], [place] [address] (Wo rk) Social History Tobacco [...] Sign Reading Time Taken Comments Blood Pressure 125/73 05/28/2018 9:30 AM EST Pulse 98 05/28/2018 9:30 AM EST Temperature - - Respiratory Rate - - Oxygen Saturation 96% 05/28/2018 9:30 AM EST Inhaled Oxygen Concentration - - Weight - - Height - - Body Mass Index - - documented in this encounter Patient Instructions Patient Carol Magñaa RN - 05/28/2018 9:40 AM EST Coaptite Care Instruction Sheet 1. After receiving the Coaptite implant you may experience the following: A. Inability to pass urine. If this occurs you will be taught clean intermittent self Catheterization. This involves passing a catheter into your bladder and draining The urine. B. Blood in your urine. You may also pass particles of coaptite, which are white. You need to drink plenty of fluids in order to flush the blood and coaptite from Your bladder. Bleeding is caused by the transurethral needling being passed Into the bladder neck C. Pressure or discomfort in the urethal area. You may take Tylenol, Advil, or Motrin to help relieve this discomfort. 2. Attempt to urinate every 2-3 hours and not let your bladder get too full. 3. You may find that you are dry for a period of time then may start to leak again. Do not get discouraged; it may take more than once treatment to keep your incontinence in control. 4. If you have any questions or concerns please do not hesitate to call the Urology Clinic at before 5pm. documented in this encounter Progress Notes Carol Wahl MD - 05/28/2018 9:40 AM EST See my last notes 03/27/18, 01/23/18, 11/28/17 and prior to that 11/14/17 - Urinary Incontinence Follow Up - Female Reason for Visit: This is a female 68 y.o. seen at the request of Mook Coffey DO with a recurred cystocele. Notes from Mook Coffey DO on file have been received and reviewed. HPI Pt underwent a vaginal hysterectomy and an attempted cystocele repair which was then converted to a ? Modified MMK performed in [place], [place] 38 years ago. She reports about 1 year ago she noticed her prolapse had returned. She states she was able to see her prolapse. Needs to push bladder back inside inorder to void. Notes her incontinence has become worse over the last year. She is not sexually active and does not plan to be in the future. Her prolapse has become worse and she reports she is now leaking feces. Features of incontinence: The patient leaks with the following stress maneuvers: coughing , laughing, sneezing, walking, getting out of a chair and bending over. The patient has features of urge including: leakage without warning, leakage on the way to the toilet and when full. She does not leak around water and in cold weather. Pad use: Type: Poise #6 Number: 3 per day; 1 per night. Frequency: as often as every 10 minute(s). Can go as long as 1 hour. Nocturia: x 3-4. Nocturnal enuresis: No. Usual Fluid Intake: Type of Fluid Quantity Consumed Unit Coffee 1 cups per day Tea 0 cups per day Coke 0 cans per day Juice 0 glasses per day Water 3-4 glasses per day Last UTI: None recently. Bowel Problems: Normal, soft formed, q every day, fecal incontinence Gyne: G 3 P 3 # 3 Menopause: currently, hot flashes HRT: Yes, stopped 1 year ago Following her stroke Review of Systems: General Health: good [employer]GEANT - No headaches or loss of consciousness. RS - No cough or breathing difficulties. CVS No chest pain or PHAM. No claudication. GI - Normal appetite and bowels. MUSCULOSKELETAL: No joint or muscle aches or dysfunction. 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 Oriented to Person, place and time. Healthy appearance. Color normal. No significant skin lesions. Abdomen: The abdomen is soft, non-tender, without masses or organomegaly. There is no hepatosplenomegaly. The bladder is not palpable. There is no CV angle tenderness. Pelvic: The external genitalia are normal with normal hair distribution and no lesions. The meatus is in a normal location with a normal configuration. There is mobility of the bladder neck. The urethra is not tender. There are no urethral masses. The patient does not leak in the supine position with valsalva and with coughing. There is a Gr. 3 cystocele, this is at +5 and a Gr. 1 rectocele. There are no pelvic masses. The patient can Kegel effectively. The uterus and adenexa are absent. The vault is not well supported. There is shortening of the vagina with a total TVL of 6-7 cm. Rectal: The anus and perineum are normal. Rectal sphincter tone is normal. There are no rectal masses. UDS: See procedure note Impression: Grade 3 prolapse Plan: We discussed options for her prolapse including use of a pessary or surgical procedures to correct her prolapse. If she pursued surgery, she would need to be off her blood thinners but this would put her at risk for a DVT. A pessary would most likely not help her stress incontinence. Other options were also discussed including coapatite injections into the bladder neck. This does not serve as a permanent solution for her stress incontinence. She is scheduled for a cystoscopy on 11/28/17 so we will also proceed with coapatite injections at that time. She has an appointment booked to see Dr. Prater in gynecology, [facility]. She will discuss a pessary with him. I will see her back for her cystoscopy which is being done for hematuria. If there is no significant issues with her bladder we will proceed with acoaptite injection at that time. She had a cysto for hematuria 11/28/17 and this was negative. She then had coaptite, 3 syringes. She thinks that with the pessary and the coaptite she is doing well. She was better initially and finds that she leaks more with increased time from the procedure. She had less improvement with the Sept coaptite. She was worse after the Nov coaptite. She is here for more coaptite. She was catheterized today for a PVR. This was 30 cc. Cysto: see other note Imp: good bladder neck closure with coaptite. Plan: RTC 8 weeks for further injection and or discussion of sling. documented in this encounter Procedure Notes Carol Wahl MD - 05/28/2018 9:40 AM ESTAssociated Order(s): COLLAGEN ENDOSCOPIC INJECTION Pre-Procedure Diagnose(s): Urethral sphincter deficiency, intrinsic (ISD) Post-Procedure Diagnose(s): Urethral sphincter deficiency, intrinsic (ISD) The patient was placed in the lithotomy position and prepped and draped in the usual fashion. Lidocaine gel was instilled into the urethra. Using an injection scope cystoscopy was performed. The cysto was normal. Coapatite was injected to close the bladder neck. A total of 3 Syringes were used. The bladder neck was coapted at the close of the procedure. The scope was then removed. The patient tolerated the procedure well. The patient was able to void. The PVR was checked and was minimal. The patientwas given 1 cipro pre op. A return appointment was made for 8 weeks. The patient has been told to call if there are problems prior to that. documented in this encounter Plan of Treatment Upcoming Encounters Date Type Specialty Care Team Description 02/11/2022 Scheduled View Only Ángel Hill Oncology [facility] ONCOLOGY [place], [place] [address] (Wo rk) 02/11/2022 TH Visit (TeleHealth) Ángel Hill Oncology [facility] DR UMANA [place], [place] [address] (Wo rk) 02/11/2022 Infusion Hematology and Oncology 02/11/2022 Office Visit Hematology and Jazzy Armendariz R D Oncology [facility] HEMATOLOGY AND ONCOLOGY [place], [place] [address] (Wo rk) 02/22/2022 TH Visit (TeleHealth) Hematology and Yaquelin Celis Oncology E, [facility] HEMATOLOGY [place] ONCOLOGY [place], [place] [address] (Wo rk) 02/25/2022 Office Visit Ángel Hill Oncology [facility] ONCOLOGY [place], [place] [address] (Wo rk) 02/25/2022 Infusion Hematology and Oncology 03/10/2022 Scheduled View Only Obstetrics and Nurse, Julian II, unattended ground sensor specialist 03/10/2022 Office Visit Obstetrics and [place], Shazia C, Gynecology [facility] UROGYNECOLOGY [place], [place] [address] (Wo rk) 03/11/2022 Office Visit Hematology and Ángel Fischer MD [facility] [place] [address] [address] MEDICAL ONCOLOGY [place], [place] [phone] 03/11/2022 Infusion Hematology and Oncology 03/25/2022 Office Visit Hematology and Alyssa Joseph, Oncology [address] MEDICAL ONCOLOGY [place], [place] [phone] (Wo rk) 03/25/2022 Infusion Hematology and Oncology 03/31/2022 Office Visit Hematology and Alan Livingston M D [facility] DR HEMATOLOGY/[place] [address] [facility] [address] 04/08/2022 Office Visit Hematology and Ángel Fischer MD [facility] [place] [address] [address] MEDICAL ONCOLOGY [place], [place] [id number] 04/08/2022 Infusion Hematology and Oncology documented as of this encounter Procedures Procedure Name Priority Date/Time Associated Diagnosis Comme nts LAB SCAN 06/07/2018 12:00 Results for this AM EST procedure are i n the results section. URINE CULTURE Routine 05/28/2018 10:07 Stress incontinence Res ults for this AM EST in female procedure are in Urethral sphincter the resul ts deficiency, intrinsic sectio n. (ISD) COLLAGEN ENDOSCOPIC Routine 05/28/2018 9:[address] Results for this INJECTION EST deficiency, intrinsic proced ure are in (ISD) the results section. documented in this encounter Results SCAN DOC: LAB (06/07/2018 12:00 AM EST) Narrative 06/07/2018 12:00 AM EST This result has an attachment that is no t available. Ordered by an unspecified provider. Scanning Provider MEDIA MGR SCAN EXT ORDR/RSLT (ABNORMAL) Urine culture Clean Catch Urine (05/28/2018 10:07 AM EST) [facility] Method Time Signature Urine Culture 1,000-9,000 cfu/ml mixed mucosal paola MADIHA Note: Culture shows multiple bacterial species suggesting [facility] B[facility] contamination. If symptoms c ontinue to indicate urinary tract infection, submit [facility] a new specimen. [facility] Specimen (Source) Anatomical Collection Method Collection Time Re ceived Time Location / / Volume Laterality Urine specimen 05/28/2018 10:07 9 obtained by clean AM EST 11:[address] catch procedure (specimen) Resulting Agency Comment Spec In Lab Carol Wahl MD MICROBIOLOGY - GENERAL ORDER MELYSSA Performing Organization Address City/State/[place] [address] Collagen Endoscopic Injection (05/28/2018 9:40 AM EST) Narrative Carol Wahl MD - 05/28/2018 9:40 AM EST Carol Wahl MD ? 06/02/2018 ??2:46 PM The patient was placed in the lithotomy position and prepped and draped in the usual fashion. ??Lidocaine gel was instilled into the urethra. ??Using an ??injection scop e cystoscopy was performed. The cysto was normal. ??Coapatite was i njected to close the bladder neck. ??A total of 3 ??Syringes were ??used. ??The bladder neck was coapted at the close of the pro cedure. ??The scope was then removed. ??The patient tolerated th e procedure well. ??The patient was able to void. ??The PVR was checked and was minimal. ?? The patient was given 1 cipro pre op. ?? A return appointment was made for 8 ??weeks. The patient has been told to call if there are problems prior to that. Carol Wahl MD PROCEDURE/MINOR SURGICAL ORD ERABLES documented in this encounter Visit Diagnoses Diagnosis Urethral sphincter deficiency, intrinsic (ISD) Intrinsic (urethral) sphincter deficienc y (ISD) Stress incontinence in female documented in this encounter Care Teams Vegetable Washing Machine Operator Relationship Specialty Start Date End Date Mook Coffey DO PCP - General Family Medicine 02/16/[address] [place] [phone] documented as of this encounter
--- OUTSIDE RECORDS SUMMARY | 2022-02-11 01:08 | XMS_ITS | Encounter Summary ---
:1950 Author Organization [facility] Address [address] [place] [address] Care Team Providers Name Role Phone Mook Coffey DO Primary Care Provider Reason for Visit Reason Onset Date Comments Abnormal Labs 12/16/2019 critical WBC Encounter Details Date Type Department Care Team Description 12/16/2019 Telephone Hematology Oncology at Hollie Silvestre, Abnormal Labs (critical [facility] RN WBC) [address] [place] [address] Social History Tobacco Use Types [...] place to sleep or slept in a fdc (including now)? Sex Assigned at Date Recorded Female 12/24/2020 12:51 PM EDT documented as of this encounter Miscellaneous Notes Telephone Encounter - Hollie Silvestre RN - 12/16/2019 1:28 PM EDT Molly for [facility] lab called with critical WBC on Carol of 116.5. This is up from 90.9 on 06/10/19. She is due to see Nilam So APRN on 12/18/19, I will notify her with this note. documented in this encounter Plan of Treatment Upcoming Encounters Date Type Specialty Care Team Description 02/11/2022 Scheduled View Only Hematology and Ángel Fischer Oncology [facility] [place], [place] [address] (Shana hewitt) 02/11/2022 TH Visit (TeleHealth) Hematology Ángel Kimbrough Oncology [facility] DR [place], [place] [address] (Shana hewitt) 02/11/2022 Infusion Hematology and Oncology 02/11/2022 Office Visit Hematology and Jazzy Armendariz E, R D [facility] DRIVE HEMATOLOGY AND ONCOLOGY [place], [place] [address] (Wo rk) 02/22/2022 TH Visit (TeleHealth) Hematology and Yaquelin Celis Oncology E, [facility] HEMATOLOGY AND ONCOLOGY [place], [place] [address] (Wo rk) 02/25/2022 Office Visit Hematology and Ángel Fischer, Oncology [facility] ONCOLOGY [place], [place] [address] (Wo rk) 02/25/2022 Infusion Hematology and Oncology 03/10/2022 Scheduled View Only Obstetrics and Nurse, Julian COLEMAN, octave board assembler 03/10/2022 Office Visit Obstetrics and Shazia Whitley, Gynecology [facility] UROGYNECOLOGY [place], [place] [address]375 (Wo rk) 03/11/2022 Office Visit Hematology and Ángel Fischer MD [facility] [address] Oncology Alyssa Joseph, [address] MEDICAL ONCOLOGY [place], [place] [phone] 03/11/2022 Infusion Hematology and Oncology 03/25/2022 Office Visit Hematology and Alyssa Joseph, Oncology [address] MEDICAL ONCOLOGY [place], [place] [address] (Wo rk) 03/25/2022 Infusion Hematology and Oncology 03/31/2022 Office Visit Hematology and Alan Livingston M D [facility] HEMATOLOGY/[place] [address] Oncology Nilam So, [facility] HEMATOLOGY/[place] [address] 04/08/2022 Office Visit Hematology and Ángel Fischer MD [facility] [place] [address] Oncology Alyssa Joseph[address] MEDICAL ONCOLOGY [place], [place] [phone] 04/08/2022 Infusion Hematology and Oncology documented as of this encounter Visit Diagnoses Not on filedocumented in this encounter Care Teams Supply Chain Vice President Relationship Specialty Start Date End Date Mook Coffey DO PCP - General Family Medicine 02/16/[address] [place] [phone] documented as of this encounter
--- OUTSIDE RECORDS SUMMARY | 2022-02-11 01:08 | XMS_ITS | Encounter Summary ---
:1950 Author Organization [facility] Address [address] [place] [address] Care Team Providers Name Role Phone Mook Coffey DO Primary Care Provider Encounter Details Date Type Department Care Team Description 01/14/2020 Office Visit Dermatology at Justino Cardenas, History of SCC (squamous cell carcinoma) of skin; Radha ALEGRIA [place] (actinic keratosis); [address] Seborrheic keratosis Jori B DERMATOLOGY [place], [place] [phone] Social History Tobacco Use Types Packs/Day Years [...] documented as of this encounter Progress Notes Justino Cardenas MD - 01/14/2020 9:30 AM EDT Problem: 1. New skin lesions of concern 2. 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 She has noted 2 lesions of concern on her left forearm and her right jawline. Physical examination reveals what appear to be 2 actinic keratoses perhaps early areas of Perez's disease at the 2 aforementioned sites. She also has a solar lentigo on the left anterior villanueva. Otherwise examination today of the sun exposed skin is benign. Assessment and plan: Actinic keratoses left forearm and right jawline 1. LN 2 x 2 applied to each of the [address] 2 x 2 instructions History of SCCA right upper cutaneous lip February 2013 1. No evidence of recurrence 2. Return to clinic as needed for new lesion/concerns. Cc: Mook Coffey DO documented in this encounter Plan of Treatment Upcoming Encounters Date Type Specialty Care Team Description 02/11/2022 Scheduled View Only Hematology and Ángel Fischer Oncology [facility] ONCOLOGY [place], [place] [address] (Wo rk) 02/11/2022 TH Visit (TeleHealth) Hematology Ángel Kimbrough Oncology [facility] DR UMANA [place], [place] [address] (Wo rk) 02/11/2022 Infusion Hematology and Oncology 02/11/2022 Office Visit Hematology and Jazzy Armendariz R D [facility] HEMATOLOGY AND ONCOLOGY [place], [place] [address] (Wo rk) 02/22/2022 TH Visit (TeleHealth) Hematology and Yaquelin Celis E, [facility] HEMATOLOGY AND ONCOLOGY [place], [place] [address] (Wo rk) 02/25/2022 Office Visit Hematology Ángel Kimbrough Oncology [facility] [address] UMANA [place], [place] [address] (Wo rk) 02/25/2022 Infusion Hematology and Oncology 03/10/2022 Scheduled View Only Obstetrics and NurseJulian II, rivet bucker 03/10/2022 Office Visit Obstetrics and Shazia Whitley, Gynecology [facility] UROGYNECOLOGY [place], [place] [address] (Wo rk) 03/11/2022 Office Visit Ángel Hill MD [facility] [place] [address] Oncology Alyssa Joseph[address] [place] [address] 03/11/2022 Infusion Hematology and Oncology 03/25/2022 Office Visit Hematology and Alyssa Joseph, Oncology [address] MEDICAL ONCOLOGY [place], [place] [phone] (Wo rk) 03/25/2022 Infusion Hematology and Oncology 03/31/2022 Office Visit Hematology and Alan Livingston M D [facility] DR HEMATOLOGY/[place] [address] Oncology [facility] [address] 04/08/2022 Office Visit Hematology and Ángel Fischer MD [facility] [place] [address] Oncology Alyssa Joseph[address] MEDICAL ONCOLOGY [place], [place] [address] 04/08/2022 Infusion Hematology and Oncology documented as of this encounter Visit Diagnoses Diagnosis History of SCC (squamous cell carcinoma) of skin Personal history of other malignant neop lasm of skin AK (actinic keratosis) Actinic keratosis Seborrheic keratosis Other seborrheic keratosis documented in this encounter Care Teams Mental Health Specialist Relationship Specialty Start Date End Date Mook Coffey DO PCP - General Family Medicine 02/16/[address] [place] [address] [phone] documented as of this encounter
--- OUTSIDE RECORDS SUMMARY | 2022-02-11 01:08 | XMS_ITS | Encounter Summary ---
:1950 [address] [facility] [place] [address] Care Team Providers Name Role Phone Erlinda Mook Keron MEHTA Primary Care Provider Encounter Details Date Type Department Care Team Description 12/30/2020 Office Visit Hematology/Oncology Bernardo Salmon MD [facility] DR HEMATOLOGY/[place] [address] CLL (chronic at [facility] Nilam So APRN [facility] DR HEMATOLOGY/[place] [address] lymphocytic leukemia) [address] [place] [phone] Social History Tobacco Use Types Packs/Day Years [...] place to sleep or slept in a care home (including now)? Sex Assigned at Date Recorded Female 12/24/2020 12:51 PM EDT documented as of this encounter Last Filed Vital Signs Vital Sign Reading Time Taken Comments Blood Pressure 138/62 12/30/2020 10:15 AM EDT Pulse 69 12/30/2020 10:15 AM EDT Temperature 36.6 ??C (97.8 ??F) 12/30/2020 10:15 AM EDT Respiratory Rate 20 12/30/2020 10:15 AM EDT Oxygen Saturation 98% 12/30/2020 10:15 AM EDT Inhaled Oxygen Concentration - - Weight 83.7 kg (184 lb 9.6 oz) 12/30/2020 10:15 AM EDT Height 163.8 cm (5' 4.49) 12/30/2020 10:15 AM EDT Body Mass Index 31.21 12/30/2020 10:15 AM EDT documented in this encounter Progress Notes Nilam So, ELECTRIC MOTOR ASSEMBLER - 12/30/2020 10:30 AM EDT Subjective: Patient ID: Carol Keller is a 70 y.o. female here for f/u of CLL Patient Active Problem List Diagnosis ??? Pessary maintenance Ring with support Needs removal and cleaning q 4-6 mos due Feb 2020 ??? Urethral sphincter deficiency, intrinsic (ISD) ??? [...] 2014 HPI Anahi is doing well. She had a URI a few weeks ago. She was treated with prednisone, abx and an inhaler. She did have a CXR which was clear. She is still having to use the inhaler prn. She did use it today - she does not need it daily. She otherwise has been well - busy with all her sewing and caring for her 2 dogs. She denies any new lumps or bumps. No drenching night sweats. No fevers. Review of Systems Constitutional: Negative. HENT: Negative. Eyes: Negative. Respiratory: Positive for cough. Negative for shortness of breath. As above - since her recent URI Cardiovascular: Negative. Negative for chest pain, palpitations and leg swelling. Gastrointestinal: Negative. Negative for constipation, diarrhea, nausea and vomiting. Genitourinary: Negative. Musculoskeletal: Negative. Skin: Negative. Neurological: Negative. Negative for weakness and numbness. Psychiatric/Behavioral: Negative. Objective: Physical Exam Constitutional: General: She is not [...] Normal breath sounds. No wheezing or rales. Abdominal: General: Bowel sounds are normal. Palpations: Abdomen is soft. There is no mass. Tenderness: There is no guarding or rebound. Musculoskeletal: General: Normal range of motion. Cervical back: Normal range of motion and neck supple. Lymphadenopathy: Cervical: Cervical adenopathy present. Upper Body: Right upper body: No supraclavicular adenopathy. Left upper body: Supraclavicular adenopathy present. Comments: Right post cervical node seems smaller. Left axillary node approx 1cm Skin: General: Skin is warm and dry. Neurological: Mental Status: She is alert and oriented to person, place, and time. Recent Results (from the past 72 hour(s)) CBC (with Diff) Result Value Ref Range WBC 87.9 (ExtHH) Hemoglobin 13.1 Hematocrit 43.2 MCV 90.2 Platelets 158 Neutr Abs (ANC) 3.51 Comprehensive metabolic panel (non-fasting) Result Value Ref Range BUN 20 Creatinine 1.00 LDH 446 BP 138/62 (Patient Position: Sitting) Pulse 69 Temp 36.6 ??C (97.8 ??F) (Temporal) Resp 20 Ht 163.8 cm (5' 4.49) Wt 83.7 kg (184 lb 9.6 oz) SpO2 98% BMI 31.21 kg/m?? Assessment and Plan: Assessment: 70 year old with good risk CLL. Counts stable, No worrisome or symptomatic adenoapthy. No B symptoms, ALC is actually down some - likley secondary to recent prednisone course. No recurrent infections, no signs of AIHA or ITP. No concern for transformation. No indication for treatment at this time. Reviewed CLL and indications for therapy, Also reviewed inherent increase risk for infection. Influenza = UTD Pneumococcal - UTD Covid - UTD Varicella - not at this time - encouraged. Cough/wheezing - likely results of recent viral syndrome. OK to use inhaler PRN - if persists will review with PCP - may require further eval and treatment - but seems to be improving since her active infection. We will continue to follow Anahi prospectively in hematology clinic. Carol Keller will return to clinic in 6 months. she will call before then if any concerns or changes in status. documented in this encounter Plan of Treatment Upcoming Encounters Date Type Specialty Care Team Description 02/11/2022 Scheduled View Only Hematology and Ángel Fischer Oncology [facility] ONCOLOGY [place] [id number] (Wo rk) 02/11/2022 TH Visit (TeleHealth) Hematology Ángel Kimbrough Oncology [facility] [address] UMANA [place], [place] [address] (Wo rk) 02/11/2022 Infusion Hematology and Oncology 02/11/2022 Office Visit Hematology and Jazzy Armendariz R D Oncology [facility] HEMATOLOGY AND ONCOLOGY [place] [phone] (Wo rk) 02/22/2022 TH Visit (TeleHealth) Hematology and Yaquelin Celis Oncology E, [facility] HEMATOLOGY AND ONCOLOGY [place], [place] [address] (Wo rk) 02/25/2022 Office Visit Hematology Ángel Kimbrough Oncology [facility] [address] UMANA [place], [place] [address] (Wo rk) 02/25/2022 Infusion Hematology and Oncology 03/10/2022 Scheduled View Only Obstetrics and Nurse, Oboneal II, iron cutter 03/10/2022 Office Visit Obstetrics and Shazia Whitley Gynecology ELECTRIC MOTOR ASSEMBLER [facility] UROGYNECOLOGY [place], [place] [address] (Wo rk) 03/11/2022 Office Visit Ángel Hill MD [facility] [place] [address] Oncology Alyssa Joseph[address] MEDICAL ONCOLOGY [place], [place] [phone] 03/11/2022 Infusion Hematology and Oncology 03/25/2022 Office Visit Hematology and Alyssa Joseph, Oncology [address] [place] [address] (Wo rk) 03/25/2022 Infusion Hematology and Oncology 03/31/2022 Office Visit Hematology and Alan Livingston M D [facility] DR HEMATOLOGY/[place] [address] Oncology Nilam So [facility] DR HEMATOLOGY/[place] [address] 04/08/2022 Office Visit Hematology and Ángel Fischer MD [facility] [place] [address] On[address] Alyss[address] Joseph[address] MEDICAL ONCOLOGY [place], [place] [phone] 04/08/2022 Infusion Hematology and Oncology documented as of this encounter Procedures Procedure Name Priority Date/Time Associated Diagnosis Comme nts CBC (WITH DIFF) Routine 12/28/2020 Results for this procedure are i n the results section . COMPREHENSIVE METABOLIC Routine 12/28/2020 Resu lts for this PANEL (NON-FASTING) procedur e are in the results section . documented in this encounter Results Comprehensive metabolic panel (non-fasting) (12/28/2020) P athologist Signature BUN 20 Creatinine 1.00 LDH 446 Specimen (Source) Anatomical Location Collection Method / Collectio n Time Received Time / Laterality Volume Blood Nilam So [facility] CHEMISTRY ORDERABLES (ABNORMAL) CBC (with Diff) (12/28/2020) Patholo gist Method Time Signature WBC 87.9 (ExtHH) Hemoglobin 13.1 Hematocrit 43.2 MCV 90.2 Platelets 158 Neutr Abs (ANC) 3.51 Specimen (Source) Anatomical Location Collection Method / Collectio n Time Received Time / Laterality Volume Blood Nilam So APRN HEMATOLOGY ORDERABLES documented in this encounter Visit Diagnoses Diagnosis CLL (chronic lymphocytic leukemia) Chronic lymphoid leukemia, without menti on of having achieved remission documented in this encounter Care Teams Coke Oven Patcher Relationship Specialty Start Date End Date Mook Coffey DO PCP - General Family Medicine 02/16/[address] [place] [phone] documented as of this encounter
--- OUTSIDE RECORDS SUMMARY | 2022-02-11 01:08 | XMS_ITS | Encounter Summary ---
:1950 Author Organization [facility] [place] [address] Care Team Providers Name Role Phone Mook Coffey DO Primary Care Provider Reason for Visit Reason Comments Liu Check Encounter Details Date Type Department Care Team Description 11/04/2019 Office Visit Obstetrics and Chika Crandall Pessary ma intenance Gynecology at [facility] HEEL VARNISHER [facility] [place] [address] [place] [address] [phone] (Wo rk) Social History Tobacco Use Types [...] Sign Reading Time Taken Comments Blood Pressure 128/67 11/04/2019 3:02 PM EDT Pulse 74 11/04/2019 3:02 PM EDT Temperature 36.7 ??C (98.1 ??F) 11/04/2019 3:02 PM EDT Respiratory Rate - - Oxygen Saturation 98% 11/04/2019 3:02 PM EDT Inhaled Oxygen Concentration - - Weight 83 kg (183 lb) 11/04/2019 3:02 PM EDT Height 163.8 cm (5' 4.5) 11/04/2019 3:02 PM EDT Body Mass Index 30.93 11/04/2019 3:02 PM EDT documented in this encounter Progress Notes Chika Crandall, HEEL VARNISHER - 11/04/2019 3:30 PM EDT Patient Active Problem List Diagnosis [...] Carol Keller comes in today for a 4-month pessary check. Pessary type: #3 ring with support--EMLA declined She denies vaginal bleeding, new or bothersome discharge, or pain. OBJECTIVE: Blood pressure 128/67, pulse 74, temperature 36.7 ??C (98.1 ??F), temperature source Oral, height 163.8 cm (5' 4.5), weight 83 kg (183 lb), SpO2 98 %. Pelvic: Normal external genitalia, including urethral meatus and perineum. Vagina: Minimal erythema, no granulation tissue or bleeding Cervix: Normal appearance Bimanual: no mass, no tenderness, no tissue defect Rectal deferred. ASSESSMENT: Carol Keller is a 69 y.o. year old woman with: ?? Uterovaginal prolapse. Managing well with the pessary. PLAN: ??? The pessary was removed, cleansed and replaced. ??? Return in 4 months for recheck. Chika Crandall APRN Division of Female Pelvic Medicine & Reconstructive Surgery documented in this encounter Plan of Treatment Upcoming Encounters Date Type Specialty Care Team Description 02/11/2022 Scheduled View Only Hematology and Ángel Fischer Oncology [facility] ONCOLOGY [place], [place] [address] (Wo rk) 02/11/2022 TH Visit (TeleHealth) Hematology and Ángel Fischer Oncology [facility] ONCOLOGY [place], [place] [address] (Wo rk) 02/11/2022 Infusion Hematology and Oncology 02/11/2022 Office Visit Hematology and Jazzy Armendariz R D [facility] HEMATOLOGY AND ONCOLOGY [place], [place] [address] (Wo rk) 02/22/2022 TH Visit (TeleHealth) Hematology and Yaquelin Celis Oncology E, [facility] HEMATOLOGY AND ONCOLOGY [place], [place] [address] (Wo rk) 02/25/2022 Office Visit Hematology and Ángel Fischer Oncology [facility] ONCOLOGY [place], [place] [address] (Wo rk) 02/25/2022 Infusion Hematology and Oncology 03/10/2022 Scheduled View Only Obstetrics and Nurse, Oboneal COLEMAN, cane pusher 03/10/2022 Office Visit Obstetrics and Shazia Whitley Gynecology [facility] UROGYNECOLOGY [place], [place] [address] (Wo rk) 03/11/2022 Office Visit Hector and Ángel Fischer MD [facility] [place] [address] Oncology Alyssa Joseph, [address] MEDICAL ONCOLOGY [place], [place] [phone] 03/11/2022 Infusion Hematology and Oncology 03/25/2022 Office Visit Hematology and Alyssa Joseph, Oncology [address] MEDICAL ONCOLOGY [place], [place] [phone] (Wo rk) 03/25/2022 Infusion Hematology and Oncology 03/31/2022 Office Visit Hematology and Alan Livingston M D [facility] DR HEMATOLOGY/[place] [address] Oncology Nilam So, [facility] DR HEMATOLOGY/[place] [address] 04/08/2022 Office Visit Hematology and Ángel Fischer MD [facility] [place] [address] Oncology Alyssa Joseph[address] MEDICAL ONCOLOGY [place], [place] [address] 04/08/2022 Infusion Hematology and Oncology documented as of this encounter Visit Diagnoses Diagnosis Pessary maintenance Fitting and adjustment of other device documented in this encounter Care Teams Rental Representative Relationship Specialty Start Date End Date Mook Coffey DO PCP - General Family Medicine 02/16/[address] [place] [phone] documented as of this encounter
--- OUTSIDE RECORDS SUMMARY | 2022-02-11 01:08 | XMS_ITS | Encounter Summary ---
:1950 Author Organization [facility] [place] [address] Care Team Providers Name Role Phone Mook Coffey DO Primary Care Provider Reason for Visit Reason Comments Liu Check Encounter Details Date Type Department Care Team Description 07/01/2019 Office Visit Obstetrics and Chika Crandall Pessary ma intenance Gynecology at [facility] [place] [address] [place] [address] [phone] (Wo rk) Social History Tobacco Use Types [...] Sign Reading Time Taken Comments Blood Pressure 129/79 07/01/2019 1:39 PM EST Pulse 94 07/01/2019 1:39 PM EST Temperature 36.6 ??C (97.8 ??F) 07/01/2019 1:39 PM EST Respiratory Rate - - Oxygen Saturation 98% 07/01/2019 1:39 PM EST Inhaled Oxygen Concentration - - Weight - - Height - - Body Mass Index - - documented in this encounter Progress Notes Chika Crandall APRN - 07/01/2019 2:00 PM EST Patient Active Problem List Diagnosis Code ??? [...] Urethral sphincter deficiency, intrinsic (ISD) N36.42 ??? Vaginal pessary present Z96.0 SUBJECTIVE: Carol Keller comes in today for a pessary check. Pessary type: Ring with support #3 She denies vaginal bleeding, discharge, or pain. She has been practicing the freeze and squeeze urge suppression technique and tells me it is working pretty well for her. OBJECTIVE: Blood pressure 129/79, pulse 94, temperature 36.6 ??C (97.8 ??F), temperature source Oral, SpO2 98 %. Pelvic: Normal external genitalia, including urethral meatus and perineum. Vagina: Intact epithelium Cervix: Superficial erosion anterior lip, no bleeding Bimanual: firm stool present in the rectum, uterus midzone Rectal deferred. ASSESSMENT: Carol Keller is a 69 y.o. year old woman with: ?? Incomplete uterovaginal prolapse. Managing well with the pessary. ?? Urge-predominant mixed urinary incontinence, symptomatically improved with behavioral techniques PLAN: ??? The pessary was removed, cleansed and replaced. ??? Return in 4 months for recheck. Chika Crandall APRN Division of Female Pelvic Medicine & Reconstructive Surgery documented in this encounter Plan of Treatment Upcoming Encounters Date Type Specialty Care Team Description 02/11/2022 Scheduled View Only Hematology and Ángel Fischer Oncology [facility] ONCOLOGY [place], [place] [address] (Shana hewitt) 02/11/2022 TH Visit (TeleHealth) Ángel Hill Oncology [facility] [address] [place], [place] [address] (Shana hewitt) 02/11/2022 Infusion Hematology and Oncology 02/11/2022 Office Visit Hematology and Jazzy Armendariz R D Oncology [facility] [address]IVE HEMATOLOGY AND ONCOLOGY [place], [place] 0[address] (Wo rk) 02/22/2022 TH Visit (TeleHealth) Hematology and Yaquelin Celis Oncology E, [facility] HEMATOLOGY AND ONCOLOGY [place], [place] 0375 (Wo rk) 02/25/2022 Office Visit Hematology and Ángel Fischer Oncology [facility] ONCOLOGY [place], [place] [address] (Wo rk) 02/25/2022 Infusion Hematology and Oncology 03/10/2022 Scheduled View Only Obstetrics and Nurse, Julian COLEMAN, direct marketing executive 03/10/2022 Office Visit Obstetrics and Shazia Whitley Gynecology [facility] UROGYNECOLOGY [place], [place] [address] (Wo rk) 03/11/2022 Office Visit Hematology and Ángel Fischer MD [facility] [place] [address] Oncology Alyssa Joseph, [address] MEDICAL ONCOLOGY [place], [place] [address] 03/11/2022 Infusion Hematology and Oncology 03/25/2022 Office Visit Hematology and Alyssa Joseph Oncology [address] MEDICAL ONCOLOGY [place], [place] [phone] (Wo rk) 03/25/2022 Infusion Hematology and Oncology 03/31/2022 Office Visit Hematology and Alan Livingston M D [facility] HEMATOLOGY/[place] [address] Oncology Nilam So, [facility] DR HEMATOLOGY/[place] [address] 04/08/2022 Office Visit Hematology and Ángel Fischer MD [facility] [place] [address] Oncology Alyssa Joseph[address] [place] [address] 04/08/2022 Infusion Hematology and Oncology documented as of this encounter Visit Diagnoses Diagnosis Pessary maintenance Fitting and adjustment of other device documented in this encounter Care Teams Joinery Factory Worker Relationship Specialty Start Date End Date Mook Coffey DO PCP - General Family Medicine 02/16/[address] [place] [phone] documented as of this encounter
--- OUTSIDE RECORDS SUMMARY | 2022-02-11 01:08 | XMS_ITS | Encounter Summary ---
:1950 Author Organization [facility] Address [facility] [place] [address] Care Team Providers Name Role Phone Mook Coffey DO Primary Care Provider Reason for Visit Reason Onset Date Comments Labs Only 06/07/2018 Encounter Details Date Type Department Care Team Description 06/07/2018 Telephone Hematology/Oncology at Maddie Arteaga RN Labs Only [address] [phone] Social History Tobacco Use [...] Telephone Encounter - Maddie Richardson RN - 06/07/2018 2:30 PM EST Pt with WBC of 114.5, she has hx of CLL, Dr. livingston due to see pt on 06/14/18. Dr. Livingston updated of lab via this note. documented in this encounter Plan of Treatment Upcoming Encounters Date Type Specialty Care Team Description 02/11/2022 Scheduled View Only Hematology and Ángel Fischer Oncology [facility] ONCOLOGY [place], [place] [address] (Shana hewitt) 02/11/2022 TH Visit (TeleHealth) Hematology Ángel Kimbrough Oncology [facility] [address] [place], [place] [address] (Shana hewitt) 02/11/2022 Infusion Hematology and Oncology 02/11/2022 Office Visit Hematology and Jazzy Armendariz R D Oncology [facility] HEMATOLOGY AND ONCOLOGY [place], [place] [address] (Wo rk) 02/22/2022 TH Visit (TeleHealth) Hematology and Yaquelin Celis Oncology E, [facility] HEMATOLOGY AND [place]OGY [place], [place] [address] (Wo rk) 02/25/2022 Office Visit Hematology and Ángel Fischer Oncology [facility] [place], [place] [address] (Wo rk) 02/25/2022 Infusion Hematology and Oncology 03/10/2022 Scheduled View Only Obstetrics and Nurse, Julian COLEMAN, computational biologist 03/10/2022 Office Visit Obstetrics and Shazia Whitley, Gynecology [facility] UROGYNECOLOGY [place], [place] 0375 (Wo rk) 03/11/2022 Office Visit Hematology and Ángel Fischer MD [facility] [address] Oncology Alyssa Joseph[address] MEDICAL ONCOLOGY [place], [place] [address] 03/11/2022 Infusion Hematology and Oncology 03/25/2022 Office Visit Hematology and Alyssa Joseph Oncology [address] MEDICAL ONCOLOGY [place], [place] [address] (Wo rk) 03/25/2022 Infusion Hematology and Oncology 03/31/2022 Office Visit Hematology and Alan Livingston M D [facility] HEMAT[facility]Y/[place] [address] Oncology Nilam So, [facility] HEMATOLOGY/[place] [address] 04/08/2022 Office Visit Hematology and Ángel Fischer MD [facility] [place] [address] Oncology Alyssa Joseph, [address] [place] [address] 04/08/2022 Infusion Hematology and Oncology documented as of this encounter Procedures Procedure Name Priority Date/Time Associated Diagnosis Comme nts CBC (WITH DIFF) Routine 06/07/2018 Results for this procedure are in the resu lts section. documented in this encounter Results CBC (with Diff) (06/07/2018) P athologist Signature WBC 114.5 Specimen (Source) Anatomical Location Collection Method / Collectio n Time Received Time / Laterality Volume Blood specimen 06/07/2018 (specimen) Historical Provider HEMATOLOGY ORDERABLES documented in this encounter Visit Diagnoses Not on filedocumented in this encounter Care Teams Electrical Technology Instructor Relationship Specialty Start Date End Date Mook Coffey DO PCP - General Family Medicine 02/16/[address] [place] [phone] documented as of this encounter
--- OUTSIDE RECORDS SUMMARY | 2022-02-11 01:08 | XMS_ITS | Encounter Summary ---
:1950 Author Organization [facility] [place] [address] Care Team Providers Name Role Phone Erlinda Mook Keron MEHTA Primary Care Provider Encounter Details Date Type Department Care Team Description 06/18/2020 Office Visit Hematology/Oncology Shayna Livingston MD [facility] DR HEMATOLOGY/[place] [address] CLL (chronic at [facility] Yasmine Torres APRN [address] [place] [address] DR [place] [address] lymphocytic leukemia) [address] [place] [phone] Social History Tobacco Use Types Packs/Day [...] place to sleep or slept in a retirement (including now)? Sex Assigned at Date Recorded Female 12/24/2020 12:51 PM EDT documented as of this encounter Last Filed Vital Signs Vital Sign Reading Time Taken Comments Blood Pressure 154/61 06/18/2020 1:58 PM EST Pulse 69 06/18/2020 1:58 PM EST Temperature 35.9 ??C (96.6 ??F) 06/18/2020 1:58 PM EST Respiratory Rate 20 06/18/2020 1:58 PM EST Oxygen Saturation 100% 06/18/2020 1:58 PM EST Inhaled Oxygen Concentration - - Weight 86.9 kg (191 lb 8 oz) 06/18/2020 1:58 PM EST Height 163.8 cm (5' 4.49) 06/18/2020 1:58 PM EST Body Mass Index 32.38 06/18/2020 1:58 PM EST documented in this encounter Progress Notes Alan Livingston MD - 06/18/2020 2:00 PM EST Subjective: Patient ID: Carol Keller is a [...] (favorable prognosis) Observation only Pneumovax 2014 HPI The patient is a 70-year-old female who returns to [facility] in follow-up for her CLL. She has been followed for 10 years without any treatment. Since last seen she has been well. No recent infections. No fevers chills sweats or weight loss. Nahunins on [employer]. 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 Review of Systems Constitutional: Negative. HENT: Negative. Eyes: Negative. Respiratory: Negative. Negative for cough and shortness of breath. Cardiovascular: Negative. Negative for chest pain, palpitations and leg swelling. Gastrointestinal: Negative. Negative for constipation, diarrhea, nausea and vomiting. Genitourinary: Negative. Musculoskeletal: Positive for back pain. Skin: Negative. Neurological: Negative. Negative for weakness and numbness. Psychiatric/Behavioral: Negative. Objective: Physical Exam Constitutional: She is oriented to person, place, and time. She appears well- developed and well-nourished. No distress. HENT: Mouth/Throat: Oropharynx is clear and moist. No oropharyngeal exudate. Eyes: Pupils are equal, round, and reactive to light. Conjunctivae are normal. Neck: Normal range of motion. Neck supple. Cardiovascular: Normal rate, regular rhythm and normal heart sounds. No murmur heard. Pulmonary/Chest: Effort normal and breath sounds normal. She has no wheezes. She has no rales. Abdominal: Soft. Bowel sounds are normal. She exhibits no mass. There is no rebound and no guarding. Musculoskeletal: Normal range of motion. General: No edema. Lymphadenopathy: She has cervical adenopathy. Right cervical: Posterior cervical adenopathy present. She has no axillary adenopathy. Right: No supraclavicular adenopathy present. Left: No supraclavicular adenopathy present. Right posterior cervical 1 cm node Left axillary 1cm Neurological: She is alert and oriented to person, place, and time. Skin: Skin is warm and dry. Psychiatric: She has a normal mood and affect. Laboratory Lab Results Component Value Date WBC 117.0 06/05/2020 RBC 4.67 06/05/2020 HGB 11.7 06/05/2020 HCT 40.7 06/05/2020 MCV 92.3 01/30/2017 MCH 30.1 01/30/2017 MCHC 32.6 01/30/2017 PLATELET 205 06/05/2020 RDWCV 14.0 01/30/2017 Assessment and Plan: 70 -year-old female with history of good risk chronic lymphocytic leukemia. Her white count has beenpretty consistent over the last for 5 years with just some general waxing and waning. She has not developed symptoms, anemia or thrombocytopenia. Continued observation without treatment is appropriate. Given her clinical stability I think we can just see her twice a year at this point. She will return in 6 months with repeat labs then documented in this encounter Plan of Treatment Upcoming Encounters Date Type Specialty Care Team Description 02/11/2022 Scheduled View Only Hematology Ángel Kimbrough Oncology [facility] DR [place] [address] (Shana hewitt) 02/11/2022 TH Visit (TeleHealth) Hematology Ángel Kimbrough Oncology [facility] [address] [place] [address] (Shana hewitt) 02/11/2022 Infusion Hematology and Oncology 02/11/2022 Office Visit Hematology and Jazzy Armendariz [facility] DRIVE HEMATOLOGY AND ONCOLOGY [place], [place] 0[address] (Wo rk) 02/22/2022 TH Visit (TeleHealth) Hematology and Yaquelin Celis Oncology E, [facility] HEMATOLOGY AND ONCOLOGY [place], [place] 0[address] (Wo rk) 02/25/2022 Office Visit Hematology and Ángel Fischer Oncology [facility] ONCOLOGY [place], [place] [address] (Wo rk) 02/25/2022 Infusion Hematology and Oncology 03/10/2022 Scheduled View Only Obstetrics and Nurse, Julian COLEMAN, pipe organ builder 03/10/2022 Office Visit Obstetrics and Shazia Whitley Gynecology [facility] UROGYNECOLOGY [place], [place] [address] (Wo rk) 03/11/2022 Office Visit Hematology and Ángel Fischer MD [facility] [place] [address] Oncology Alyssa Joseph [address] MEDICAL ONCOLOGY [place], [place] [address] 03/11/2022 Infusion Hematology and Oncology 03/25/2022 Office Visit Hematology and Alyssa Joseph Oncology [address] MEDICAL ONCOLOGY [place], [place] [address] (Wo rk) 03/25/2022 Infusion Hematology and Oncology 03/31/2022 Office Visit Hematology and Alan Livingston M D [facility] HEMATOLOGY/[place] [address] Oncology Nilam So APRN [facility] DR HEMATOLOGY/[place] [address] 04/08/2022 Office Visit Hematology and Ángel Fischer MD [facility] [place] [address] Oncology A[address]ph[address] [place] [address] 04/08/2022 Infusion Hematology and Oncology documented as of this encounter Visit Diagnoses Diagnosis CLL (chronic lymphocytic leukemia) Chronic lymphoid leukemia, without menti on of having achieved remission documented in this encounter Care Teams Ebd Special Education Teacher Relationship Specialty Start Date End Date Mook Coffey DO PCP - General Family Medicine 02/16/[address] [place] [phone] documented as of this encounter
--- OUTSIDE RECORDS SUMMARY | 2022-02-11 01:08 | XMS_ITS | Encounter Summary ---
:1950 Author Organization [facility] Address [facility] [place] [address] Care Team Providers Name Role Phone Mook Coffey DO Primary Care Provider Reason for Visit Reason Onset Date Comments Abnormal Lab 12/28/2020 WBC Encounter Details Date Type Department Care Team Description 12/28/2020 Telephone [facility] ([facility] Rolando Isaac RN [address] [place] [phone] Social History Tobacco Use Types [...] Telephone Encounter - Navneet Burden RN - 12/28/2020 4:21 PM EDT [facility] Lab called to report WBC of 87.9 today. Pt has Dx CLL and seeing provider this Monday12/30/20. Providers made aware per protocol. documented in this encounter Plan of Treatment Upcoming Encounters Date Type Specialty Care Team Description 02/11/2022 Scheduled View Only Hematology and Ángel Fischer Oncology [facility] ONCOLOGY [place], [place] [address] (Wo kash) 02/11/2022 TH Visit (TeleHealth) Hematology Ángel Kimbrough Oncology [facility] ONCOLOGY [place], [place] [address] (Shana hewitt) 02/11/2022 Infusion Hematology and Oncology 02/11/2022 Office Visit Hematology and Jazzy Armendariz R D Oncology [facility] DRIVE HEMATOLOGY AND ONCOLOGY [place], [place] 0375 (Wo rk) 02/22/2022 TH Visit (TeleHealth) Hematology and Yaquelin Celis Oncology E, [facility] HEMATOLOGY AND ONCOLOGY [place], [place] 0375 (Wo rk) 02/25/2022 Office Visit Hematology and Ángel Fischer, Oncology [facility] ONCOLOGY [place], [place] [address] (Wo rk) 02/25/2022 Infusion Hematology and Oncology 03/10/2022 Scheduled View Only Obstetrics and Nurse, Julian COLEMAN, reel and rewinder operator 03/10/2022 Office Visit Obstetrics and Shazia Whitley, Gynecology [facility] UROGYNECOLOGY [place], [place] [address] (Wo rk) 03/11/2022 Office Visit Hematology and Ángel Fischer MD [facility] [place] [address] Oncology Alyssa Joseph, [address] MEDICAL ONCOLOGY [place], [place] [phone] 03/11/2022 Infusion Hematology and Oncology 03/25/2022 Office Visit Hematology and Alyssa Joseph, Oncology [address] [place] [address] (Wo rk) 03/25/2022 Infusion Hematology and Oncology 03/31/2022 Office Visit Hematology and Alan Livingston M D [facility] HEMATOLOGY/[place] [address] Oncology Nilam So, [facility] HEMATOLOGY/[place] [address] 04/08/2022 Office Visit Hematology and Ángel Fischer MD [facility] [place] [address] Oncology Alyssa Joseph[address] MEDICAL ONCOLOGY [place], [place] [address] 04/08/2022 Infusion Hematology and Oncology documented as of this encounter Visit Diagnoses Not on filedocumented in this encounter Care Teams Substation Mechanic Relationship Specialty Start Date End Date Mook Coffey DO PCP - General Family Medicine 02/16/[address] [place] [phone] documented as of this encounter
--- OUTSIDE RECORDS SUMMARY | 2022-02-11 01:08 | XMS_ITS | Encounter Summary ---
:1950 Author Organization [facility] [place] [address] Care Team Providers Name Role Phone Mook Coffey DO Primary Care Provider Reason for Visit Reason Comments Follow-up Encounter Details Date Type Department Care Team Description 05/07/2018 Office Visit Obstetrics and Chika Crandall, Encounter for fitting and adjustment of pessary; Gynecology at [facility] Hematuria, unspecified type [facility] [place], [place] [phone] Social History Tobacco Use Types Packs/Day Years [...] Sign Reading Time Taken Comments Blood Pressure 147/68 05/07/2018 12:54 PM EST Pulse 94 05/07/2018 12:54 PM EST Temperature 36.8 ??C (98.3 ??F) 05/07/2018 12:54 PM EST Respiratory Rate - - Oxygen Saturation 95% 05/07/2018 12:54 PM EST Inhaled Oxygen Concentration - - Weight 81.6 kg (180 lb) 05/07/2018 12:54 PM EST reporte d Height 163.8 cm (5' 4.49) 05/07/2018 12:54 PM EST Body Mass Index 30.43 05/07/2018 12:54 PM EST documented in this encounter Progress Notes Chika Crandall APRN - 05/07/2018 1:00 PM EST Patient Active Problem List Diagnosis Code ??? CLL (chronic lymphocytic leukemia) C91.90 ??? SVT (supraventricular tachycardia) I47.1 ??? Urinary incontinence, overflow N39.490 ??? GERD (gastroesophageal reflux disease) K21.9 ??? [...] Urethral sphincter deficiency, intrinsic (ISD) N36.42 ??? 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 The discharge was odorless but was brownish red. Pessary type: #5 Ring with support---she believes this pessary is too large, because it fits quite snugly; she says that Dr. Prater had suggested we might try a slightly smaller one. She has vaginal discharge, but denies pain. She denies dysuria, urgency, frequency, flank pain, and has no URI symptoms. OBJECTIVE: Blood pressure 147/68, pulse 94, temperature 36.8 ??C (98.3 ??F), height 163.8 cm (5' 4.49), ookyvl03.6 kg (180 lb), SpO2 95 %. Pelvic: Atrophic external genitalia, including urethral meatus and perineum. Vagina: Smooth pale epithelium with shallow abrasions bilateral upper vagina. The discharge is storey, nonodorous, Cervix: Surgically absent Bimanual: no mass or tenderness Rectal deferred. Microscopic wet-mount exam shows no yeast, trichomonads, or clue cells; RBCs and WBCs are present. Straight cath urine is obtained; notably snug urethra, but the residual urine is 100 mL. ASSESSMENT: This 68 year old woman presents with recent low-grade fevers, no malaise, and heavy vaginal discharge in the setting of pessary use. PLAN: ??? The pessary was removed, cleansed and given to her; a # 4 ring with support fits comfortably andis retained with BM during this visit. ? ? Her urine is submitted for C&S. I suspect the blood in this specimen is related to catheterization through her bulked urethral canal, but she says her urologist Dr. Wahl has worked her up for hematuria in the past as well. ??? I have messaged Anahi's oncology provider about this visit. ??? Return in 2 months for recheck. Chika Crandall APRN Division of Female Pelvic Medicine & Reconstructive Surgery documented in this encounter Plan of Treatment Upcoming Encounters Date Type Specialty Care Team Description 02/11/2022 Scheduled View Only Ángel Hill Oncology [facility] DR [place] [phone] (Wo rk) 02/11/2022 TH Visit (TeleHealth) Ángel Hill Oncology [facility] DR UMANA [place] [phone] (Wo rk) 02/11/2022 Infusion Hematology and Oncology 02/11/2022 Office Visit Hematology and Jazzy Armendariz R D Oncology [facility] HEMATOLOGY AND ONCOLOGY [place] [phone] (Wo rk) 02/22/2022 TH Visit (TeleHealth) Hematology and Yaquelin Celis Oncology E, [facility] HEMATOLOGY [place]MANA [place], [place] [address] (Wo rk) 02/25/2022 Office Visit Ángel Hill Oncology [facility] DR UMANA [place], [place] [address] (Wo rk) 02/25/2022 Infusion Hematology and Oncology 03/10/2022 Scheduled View Only Obstetrics and Nurse, Julian II, grain elevator superintendent 03/10/2022 Office Visit Obstetrics and Shazia Whitley Gynecology [facility] UROGYNECOLOGY [place], [place] [address] (Wo rk) 03/11/2022 Office Visit Hematology and Ángel Fischer MD [facility] [place] [address] Oncology Alysas Joseph[address] MEDICAL ONCOLOGY [place], [place] [phone] 03/11/2022 Infusion Hematology and Oncology 03/25/2022 Office Visit Hematology and Alyssa Joseph, Oncology [address] ONCOLOGY [place], [place] [phone] (Wo rk) 03/25/2022 Infusion Hematology and Oncology 03/31/2022 Office Visit Hematology and Alan Livingston M D [facility] DR HEMATOLOGY/[place] [address] Oncology Nilam So, [facility] DR HEMATOLOGY/[place] [address] 04/08/2022 Office Visit Hematology and Ángel Fischer MD [facility] [place] [address] Oncology Alyssa Joseph[address] MEDICAL ONCOLOGY [place], [place] [address] 04/08/2022 Infusion Hematology and Oncology documented as of this encounter Procedures Procedure Name Priority Date/Time Associated Diagnosis Comme nts URINALYSIS Routine 05/07/2018 1:47 PM Results f or this MICROSCOPIC EXAM EST procedure a re in the results section. URINALYSIS WITH Routine 05/07/2018 1:47 PM Hematuria, Result s for this REFLEX CULTURE EST unspecified type procedure are in the results section. POCT URINE DIPSTICK Routine 05/07/2018 Hematuria, Results for this unspecified type procedure a re in the results section. documented in this encounter Results (ABNORMAL) Urinalysis Microscopic Exam (05/07/2018 1:47 PM EST) Analysis Performed At Patho logist Time Signature RBC UA 16 (H) 0 - 4 /HPF [facility] WBC UA 1 0 - 5 /HPF [facility] Bacteria UA Rare (A) None /HPF [facility] Hyaline Cast 3 (H) 0 - 2 /LPF [facility] Specimen Anatomical Collection Method Collection Time Receive d Time (Source) Location / / Volume Laterality Urine specimen 05/07/2018 1:47 PM 018 3:53 obtained via EST PM EST straight catheter (specimen) Resulting Agency Comment Spec In Lab Chika E Raz JEONG URINE ORDERABLES Performing Organization Address City/State/Z[place] [address] (ABNORMAL) Urinalysis with reflex Culture (05/07/2018 1:47 PM EST) Patholo gist Method Time Signature Glucose UA Negative Negative [facility] mg/dL [facility] Protein UA Negative Negative [facility] mg/dL [facility] Bilirubin UA Negative Negative [facility] mg/dL [facility] Comment: Clinical correlation required for positi ve Urine Bilirubin results as false positive may occur with some drugs and d rug related products. If a false positive is suspected a serum total bili reyes should be considered if clinically indicated. Urobilinogen UA Normal Normal mg/dL [facility] pH UA 6.0 5.0 - 8.0 [facility] Blood UA Large (A) Negative mg/dL [facility] Ketones UA Negative Negative mg/dL [facility] Nitrite UA Negative Negative [facility] Leukocytes UA Negative Negative [facility] Appearance UA Clear Clear [facility] Spec [place] UA 1.010 1.002 - 1.030 [facility] Color UA Yellow Yellow [facility] Culture Reflexed No [facility] Specimen Anatomical Collection Method Collection Time Receive d Time (Source) Location / / Volume Laterality Urine specimen 05/07/2018 1:47 PM 018 3:53 obtained via EST PM EST straight catheter (specimen) Resulting Agency Comment Spec In Lab Chika Crandall APRN URINE ORDERABLES Performing Organization Address City/State/[place] [address] POCT urine dipstick (05/07/2018) [facility] gist Method Time Signature POC Sp [place] 1.015 1.002 - 1.030 POC pH, UA 5 5.0 - 8.5 POC Leuk, UA Neg. Negative - Negative POC Nitrite, Neg. Negative - UA Negative POC Protein, Trace Negative - UA Negative mg/dL POC Glucose, Norm. Normal - UA Normal mg/dL POC Ketone, UA Neg. Negative - Negative POC Urobil, UA Norm. 0.2 - 1.0 mg/dL POC Bili, UA Neg. Negative - Negative POC Blood, UA About 250 Negative - Negative baldo/uL Chika Crandall APRN POINT OF CARE TEST ORDERABLE S documented in this encounter Visit Diagnoses Diagnosis Encounter for fitting and adjustment of pessary Fitting and adjustment of other device Hematuria, unspecified type documented in this encounter Care Teams Artificial Leather Calender Operator Relationship Specialty Start Date End Date Mook Coffey DO PCP - General Family Medicine 02/16/[address] [place] [phone] documented as of this encounter
--- OUTSIDE RECORDS SUMMARY | 2022-02-11 01:08 | XMS_ITS | Encounter Summary ---
:1950 Author Organization [facility] Address [address] [place] [address] Care Team Providers Name Role Phone Mook Coffey DO Primary Care Provider Reason for Visit Reason Comments Follow-up Skin Check Encounter Details Date Type Department Care Team Description 10/05/2018 Office Visit Dermatology at Justino Cardenas, History of SCC (squamous cell carcinoma) of skin; Radha ALEGRIA Seborrheic keratosis [address] Jori B DERMATOLOGY [place], [place] [phone] Social History Tobacco Use Types Packs/Day Years [...] encounter Progress Notes Justino Cardenas MD - 10/05/2018 11:30 AM EDT Problem: 1. Left forehead lesion growing 2. 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 Is been itchy. She wonders if it can be removed. Physical examination reveals a now slightly larger and slightly more hyperkeratotic seborrheic keratosis of the left supra brow. It is about 5 x 7 mm in size. It is not inflamed nor indurated but apparently has been symptomatic and itchy recently Assessment and plan: Seborrheic keratosis left forehead growing changing symptomatic and pruritic 1. Today site was was anesthetized and removed with shave biopsy 2. Specimen submitted for pathologic analysis 3. Wound care instruction and supplies given 4. Return to clinic here as needed. 5. Will notify patient biopsy when these are available. CC: Mook Coffey DO documented in this encounter Plan of Treatment Upcoming Encounters Date Type Specialty Care Team Description 02/11/2022 Scheduled View Only Hematology and Ángel Fischer Oncology [facility] ONCOLOGY [place], [place] [address] (Wo rk) 02/11/2022 TH Visit (TeleHealth) Hematology Ángel Kimbrough Oncology [facility] ONCOLOGY [place], [place] [address] (Wo rk) 02/11/2022 Infusion Hematology and Oncology 02/11/2022 Office Visit Hematology and Jazzy Armendariz R D Oncology [facility] CESAR HEMATOLOGY AND ONCOLOGY [place], [place] [address] (Wo rk) 02/22/2022 TH Visit (TeleHealth) Hematology and Yaquelin Celis E, [facility] HEMATOLOGY AND ONCOLOGY [place], [place] [address] (Wo rk) 02/25/2022 Office Visit Ángel Hill Oncology [facility] DR UMANA [place], [place] [address] (Wo rk) 02/25/2022 Infusion Hematology and Oncology 03/10/2022 Scheduled View Only Obstetrics and Julian Enciso II, environmental engineering aide 03/10/2022 Office Visit Obstetrics and Shazia Whitley Gynecology [facility] UROGYNECOLOGY [place], [place] [address] (Wo rk) 03/11/2022 Office Visit Ángel Hill MD [facility] [address] Oncology Alyssa Joseph[address] [place] [address] 03/11/2022 Infusion Hematology and Oncology 03/25/2022 Office Visit Hematology and Alyssa Joseph, Oncology [address] MEDICAL ONCOLOGY [place], [place] [address] (Wo rk) 03/25/2022 Infusion Hematology and Oncology 03/31/2022 Office Visit Hematology and Alan Livingston M D [facility] DR HEMATOLOGY/[place] [address] Oncology [facility] DR HEMAT[facility]Y/[place] [address] 04/08/2022 Office Visit Hematology and Ángel Fischer MD [facility] [place] [address] Oncology Alyssa Joseph[address] MEDICAL ONCOLOGY [place], [place] [phone] 04/08/2022 Infusion Hematology and Oncology documented as of this encounter Visit Diagnoses Diagnosis History of SCC (squamous cell carcinoma) of skin Personal history of other malignant neop lasm of skin Seborrheic keratosis Other seborrheic keratosis documented in this encounter Care Teams Manager Security Relationship Specialty Start Date End Date Mook Coffey DO PCP - General Family Medicine 02/16/[address] [place] [phone] documented as of this encounter
--- OUTSIDE RECORDS SUMMARY | 2022-02-11 01:08 | XMS_ITS | Encounter Summary ---
:1950 Author Organization [facility] Address [facility] [place] [address] Care Team Providers Name Role Phone Mook Coffey DO Primary Care Provider Reason for Visit Reason Comments Follow-up shruthi holt Encounter Details Date Type Department Care Team Description 10/16/2018 Office Visit Obstetrics and Chika Crandall Pessary ma intenance Gynecology at [facility] SIGNALS INTELLIGENCE SUPERINTENDENT [facility] [place] [place] [address] [place] [address] [phone] (Wo rk) Social History Tobacco Use Types [...] Sign Reading Time Taken Comments Blood Pressure 124/66 10/16/2018 1:20 PM EDT Pulse 75 10/16/2018 1:20 PM EDT Temperature 36.4 ??C (97.5 ??F) 10/16/2018 1:20 PM EDT Respiratory Rate - - Oxygen Saturation 98% 10/16/2018 1:20 PM EDT Inhaled Oxygen Concentration - - Weight 83.5 kg (184 lb) 10/16/2018 1:20 PM EDT Height - - Body Mass Index 31.11 07/13/2018 12:37 PM EST documented in this encounter Progress Notes Chika Crandall APRN - 10/16/2018 1:45 PM EDT Patient Active Problem List [...] check. Pessary type: Ring with support She has had no vaginal bleeding, discharge, or pain. Her intertrigo has responded to the nystatin powder, but she is not using it at this time. OBJECTIVE: Blood pressure 124/66, pulse 75, temperature 36.4 ??C (97.5 ??F), temperature source Oral, weight 83.5 kg (184 lb), SpO2 98 %. Dry skin and increased pigmentation but no desquamation in the infrapannicular fold Pelvic: Normal external genitalia, including urethral meatus and perineum. Vagina: no abrasion or discharge; small superficial laceration of posterior fourchette caused by pessary removal, with scant bleeding controlled by direct pressure. Cervix: No visible lesion or bleeding Bimanual: normal sized nontender mobile uterus in the midzone Rectal deferred. ASSESSMENT: Carol Keller is a 68 y.o. year old woman with: ?? Incomplete uterovaginal prolapse. Managing well with the pessary. PLAN: ??? The pessary was removed, cleansed and replaced. ??? Return in 3 months for recheck. Chika Crandall APRN Division of Female Pelvic Medicine & Reconstructive Surgery documented in this encounter Plan of Treatment Upcoming Encounters Date Type Specialty Care Team Description 02/11/2022 Scheduled View Only Hematology and Ángel Fischer Oncology [facility] ONCOLOGY [place], [place] [address] (Wo rk) 02/11/2022 TH Visit (TeleHealth) Hematology Ángel Kimbrough Oncology [facility] ONCOLOGY [place], [place] [address] (Wo rk) 02/11/2022 Infusion Hematology and Oncology 02/11/2022 Office Visit Hematology and Jazzy Armendariz R D [facility] CESAR HEMATOLOGY AND ONCOLOGY [place], [place] [address] (Wo rk) 02/22/2022 TH Visit (TeleHealth) Hematology and Yaquelin Celis Oncology E, [facility] HEMATOLOGY AND ONCOLOGY [place], [place] [address] (Wo rk) 02/25/2022 Office Visit Hematology Ángel Kimbrough Oncology [facility] ONCOLOGY [place], [place] [address] (Wo rk) 02/25/2022 Infusion Hematology and Oncology 03/10/2022 Scheduled View Only Obstetrics and Nurse, Julian COLEMAN, swing driver 03/10/2022 Office Visit Obstetrics and Shazia Whitley Gynecology [facility] UROGYNECOLOGY [place], [place] [address] (Wo rk) 03/11/2022 Office Visit Ángel Hill MD [facility] [place] [address] Oncology Alyssa Joseph, [address] MEDICAL ONCOLOGY [place], [place] [phone] 03/11/2022 Infusion Hematology and Oncology 03/25/2022 Office Visit Hematology and Alyssa Joseph Oncology [address] MEDICAL ONCOLOGY [place], [place] [phone] (Wo rk) 03/25/2022 Infusion Hematology and Oncology 03/31/2022 Office Visit Hematology and Alan Livingston M D [facility] DR HEMATOLOGY/[place] [address] Oncology Nilam So, [facility] DR HEMATOLOGY/[place] [address] 04/08/2022 Office Visit Hematology and Ángel Fischer MD [facility] [place] [address] Oncology Alyssa Joseph[address] [place] [address] 04/08/2022 Infusion Hematology and Oncology documented as of this encounter Visit Diagnoses Diagnosis Pessary maintenance Fitting and adjustment of other device documented in this encounter Care Teams Electronic Prepress Operator Relationship Specialty Start Date End Date Mook Coffey DO PCP - General Family Medicine 02/16/[address] [place] [phone] documented as of this encounter
--- OUTSIDE RECORDS SUMMARY | 2022-02-11 01:08 | XMS_ITS | Encounter Summary ---
:1950 Author Organization [facility] Address [address] [place] [address] Care Team Providers Name Role Phone Mook Coffey DO Primary Care Provider Reason for Visit Reason Comments Macular Hole Encounter Details Date Type Department Care Team Description 07/13/2018 Office Visit Ophthalmology at [facility] C Venkata Page, 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 [s/p PPV, ERM and ILM peel, SF6 01/05/17 with NNB]; One [facility] Macular hole, right eye [s/p PPV, MP, ga s [July 2016] with CBC]; Drive [facility] 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; [place] [phone] [place] [address] Macular hole, right eye [phone] OPHTHALMOLOGY DEPT [place], [place] [address] Social History Tobacco Use Types [...] place to sleep or slept in a nursing home (including now)? Sex Assigned at Date Recorded Female 12/24/2020 12:51 PM EDT documented as of this encounter Progress Notes Venkata Page MD - 07/13/2018 3:15 PM EST ASSESSMENT: 1. 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 [s/p PPV, ERM and ILM peel, SF6 01/05/17 with NNB] 2. Macular hole, right eye [s/p PPV, MP, gas [July 2016] with CBC] s/p PCIOL OU Exam/Findings Today 07/13/18: OD: Vision 20/50 distance and 20/70 near, mild PCO, hole closed with mild overlying ERM OS: Vision 20/20, clear PCIOL, hole closed PLAN: Exam stable today. See Dr. Hart for routine follow up. OD vision may be improved by YAGcaps. Follow up retina summer for DFE/OCT Sooner PRN I, Mook Soto, have performed the documentation for this encounter in the presence of and actingas a scribe for Venkata Page MD. I performed the services which were documented by the scribe, and I agree with the accuracy of the documentation in this encounter. Venkata Page MD documented in this encounter Plan of Treatment Upcoming Encounters Date Type Specialty Care Team Description 02/11/2022 Scheduled View Only Hematology and Ángel Fischer Oncology [facility] ONCOLOGY [place], [place] [address] (Wo rk) 02/11/2022 TH Visit (TeleHealth) Hematology Ángel Kimbrough Oncology [facility] ONCOLOGY [place], [place] [address] (Wo rk) 02/11/2022 Infusion Hematology and Oncology 02/11/2022 Office Visit Hematology and Jazzy Armendariz, [facility] CESAR HEMATOLOGY AND ONCOLOGY [place], [place] [address] (Wo rk) 02/22/2022 TH Visit (TeleHealth) Hematology and Yaquelin Celis Oncology E, [facility] HEMATOLOGY AND ONCOLOGY [place], [place] [address] (Wo rk) 02/25/2022 Office Visit Hematology Ángel Kimbrough Oncology [facility] ONCOLOGY [place], [place] [address] (Wo rk) 02/25/2022 Infusion Hematology and Oncology 03/10/2022 Scheduled View Only Obstetrics and Nurse, Obyolanden II, manager drug safety 03/10/2022 Office Visit Obstetrics and Shazia Whitley Gynecology CORPORATE LEGAL MANAGER [facility] UROGYNECOLOGY [place], [place] [address] (Wo rk) 03/11/2022 Office Visit Hematology and Ángel Fischer MD [facility] [place] [address] Oncology Alyssa Joseph[address] MEDICAL ONCOLOGY [place], [place] [phone] 03/11/2022 Infusion Hematology and Oncology 03/25/2022 Office Visit Hematology and Alyssa Joseph, Oncology [address] MEDICAL ONCOLOGY [place], [place] [phone] (Wo rk) 03/25/2022 Infusion Hematology and Oncology 03/31/2022 Office Visit Hematology and Alan Livingston M D [facility] DR HEMATOLOGY/[place] [address] [facility] [address] 04/08/2022 Office Visit Hematology and Ángel Fischer MD [facility] [place] [address] Oncology Alyss[address] Joseph[address] ONCOLOGY [place], [place] [phone] 04/08/2022 Infusion Hematology and Oncology documented as of this encounter Procedures Procedure Name Priority Date/Time Associated Diagnosis Comme nts OCT RETINA - OU - Routine 07/13/2018 4:30 PM Full thickness Re sults for this BOTH EYES EST macular hole of left procedu re are in eye the results Macular hole, right section. eye documented in this encounter Results OCT [id number] EYES (07/13/2018 4:30 PM EST) Anatomical Region Laterality Modality Other Specimen (Source) Anatomical Location Collection Method / Collectio n Time Received Time / Laterality Volume Narrative 07/13/2018 4:30 PM EST Right Eye Quality was good. Scan locations include d subfoveal. Progression has been stable. Findings include abnormal foveal contour. Left Eye Quality was good. Scan locations include d subfoveal. Progression has been stable. Findings include abnormal foveal contour. Venkata Page MD OPHTHALMOLOGY SERVICES ORDER MELYSSA documented in this encounter Visit Diagnoses Diagnosis 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 [s/p PPV, ERM and ILM peel, SF6 01/05/17 with NNB] Macular hole, right eye [s/p PPV, MP, ga s [July 2016] with CBC] Macular cyst, hole, or pseudohole of ret deep documented in this encounter Care Teams Brood Station Manager Relationship Specialty Start Date End Date Mook Coffey, PCP - General Family Medicine 02/16/[address] [place] [phone] documented as of this encounter
--- OUTSIDE RECORDS SUMMARY | 2022-02-11 01:08 | XMS_ITS | Encounter Summary ---
:1950 Author Organization [facility] [place] [address] Care Team Providers Name Role Phone Mook Coffey DO Primary Care Provider Encounter Details Date Type Department Care Team Description 12/18/2019 Office Visit Hematology/Oncology Nilam So, CLL ( chronic at [facility] DRUPAL DEVELOPER lymphocytic leukemia) [address] [place] [id number] HEMATOLOGY/ONCOLOG [phone] Y DEPT. [place], [place] [address] Social History Tobacco Use Types [...] Sign Reading Time Taken Comments Blood Pressure 133/56 12/18/2019 11:30 AM EDT Pulse 72 12/18/2019 11:30 AM EDT Temperature 36.8 ??C (98.2 ??F) 12/18/2019 11:30 AM EDT Respiratory Rate 16 12/18/2019 11:30 AM EDT Oxygen Saturation 97% 12/18/2019 11:30 AM EDT Inhaled Oxygen Concentration - - Weight - - Height - - Body Mass Index - - documented in this encounter Progress Notes Nilam So, DRUPAL DEVELOPER - 12/18/2019 11:30 AM EDT Subjective: Patient ID: Carol Keller is a 69 y.o. 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 She has been busy making masks and doing her quilting. She has been extremely healthy. No infections in the past 6 months She is recently UTD with her PCP and age appropriate screenings. Her immunizations are all UTD. Her energy is good - she does take naps at times which sheenjoys. She denies any new lumps or bumps, no night sweats. Review of Systems Constitutional: Negative. HENT: Negative. [...] are equal, round, and reactive to light. Neck: Musculoskeletal: Normal range of motion and neck supple. Cardiovascular: Rate and Rhythm: Normal rate and regular rhythm. Heart sounds: Normal heart sounds. No murmur. Pulmonary: Effort: Pulmonary effort is normal. Breath sounds: Normal breath sounds. No wheezing or rales. Abdominal: General: Bowel sounds are normal. Palpations: Abdomen is soft. There is no mass. Tenderness: There is no guarding or rebound. Musculoskeletal: Normal range of motion. Lymphadenopathy: Cervical: No cervical adenopathy. Upper Body: Right upper body: No supraclavicular adenopathy. Left upper body: No supraclavicular adenopathy. Skin: General: Skin is warm and dry. Neurological: Mental Status: She is alert and oriented to person, place, and time. BP 133/56 (Patient Position: Sitting) Pulse 72 Temp 36.8 ??C (98.2 ??F) (Temporal) Resp 16 SpO2 97% Recent Results (from the past 72 hour(s)) CBC (with Diff) Result Value Ref Range WBC 116.5 (ExtHH) Hemoglobin 12.6 Hematocrit 41.6 Platelets 178 Neutr Abs (ANC) 4.66 Comprehensive metabolic panel (non-fasting) Result Value Ref Range BUN 17 Creatinine 0.80 Assessment and Plan: 69 -year-old female with history of good risk chronic lymphocytic leukemia. Her white count has beenslowly climbing consistent over the last for 5 years with just some general waxing and waning. ?? She has not developed symptoms, anemia or thrombocytopenia. ?? She has no B symptoms, no adenopathy and no recent infections. Continued observation without treatment is appropriate. Carol Keller will return to clinic in6 months. she will call before then if any concerns or changes in status. documented in this encounter Plan of Treatment Upcoming Encounters Date Type Specialty Care Team Description 02/11/2022 Scheduled View Only Hematology and Ángel Fischer Oncology [facility] ONCOLOGY [place], [place] [address] (Shana hewitt) 02/11/2022 TH Visit (TeleHealth) Hematology Ángel Kimbrough Oncology [facility] ONCOLOGY [place], [place] [address] (Shana hewitt) 02/11/2022 Infusion Hematology and Oncology 02/11/2022 Office Visit Hematology and Jazzy Armendariz R D Oncology [facility] HEMATOLOGY AND ONCOLOGY [place], [place] [address] (Shana hewitt) 02/22/2022 TH Visit (TeleHealth) Hematology and Yaquelin Celis Oncology E, [facility] HEMATOLOGY AND ONCOLOGY [place], [place] [address] (Wo rk) 02/25/2022 Office Visit Hematology and Ángel Fischer Oncology [facility] ONCOLOGY [place], [place] [address] (Wo rk) 02/25/2022 Infusion Hematology and Oncology 03/10/2022 Scheduled View Only Obstetrics and Nurse, Oboneal COLEMAN, mechanical field engineer 03/10/2022 Office Visit Obstetrics and Shazia Whitley Gynecology [facility] UROGYNECOLOGY [place], [place] [address] (Wo rk) 03/11/2022 Office Visit Hematology and Ángel Fischer MD [facility] [place] [place] [address] Oncology Alyssa Joseph[address] MEDICAL ONCOLOGY [place], [place] [address] 03/11/2022 Infusion Hematology and Oncology 03/25/2022 Office Visit Hematology and Alyssa Joseph Oncology [address] MEDICAL ONCOLOGY [place], [place] [address] (Wo rk) 03/25/2022 Infusion Hematology and Oncology 03/31/2022 Office Visit Hematology and Alan Livingston M D [facility] HEMATOLOGY/[place] [address] Oncology Nilam So, [facility] HEMATOLOGY/[place] [address] 04/08/2022 Office Visit Hematology and Ángel Fischer MD [facility] [place] [place] [address] Oncology Alyssa Joseph APRN [address] [place] [address] [place] [address] 04/08/2022 Infusion Hematology and Oncology documented as of this encounter Procedures Procedure Name Priority Date/Time Associated Diagnosis Comme nts CBC (WITH DIFF) Routine 12/16/2019 Results for this procedure are i n the results section . COMPREHENSIVE METABOLIC Routine 12/16/2019 Resu lts for this PANEL (NON-FASTING) procedur e are in the results section . documented in this encounter Results Comprehensive metabolic panel (non-fasting) (12/16/2019) P athologist Signature BUN 17 Creatinine 0.80 Specimen (Source) Anatomical Location Collection Method / Collectio n Time Received Time / Laterality Volume Blood specimen (specimen) Nilam So APRN CHEMISTRY ORDERABLES (ABNORMAL) CBC (with Diff) (12/16/2019) Patholo gist Method Time Signature WBC 116.5 (ExtHH) Hemoglobin 12.6 Hematocrit 41.6 Platelets 178 Neutr Abs (ANC) 4.66 Specimen (Source) Anatomical Location Collection Method / Collectio n Time Received Time / Laterality Volume Blood specimen 12/16/2019 (specimen) Nilam So APRN HEMATOLOGY ORDERABLES documented in this encounter Visit Diagnoses Diagnosis CLL (chronic lymphocytic leukemia) Chronic lymphoid leukemia, without menti on of having achieved remission documented in this encounter Care Teams Supervisor Propellant Charge Loading Relationship Specialty Start Date End Date Mook Coffey DO PCP - General Family Medicine 02/16/18 [address] [place] [phone] documented as of this encounter
--- OUTSIDE RECORDS SUMMARY | 2022-02-11 01:08 | XMS_ITS | Encounter Summary ---
:1950 Author Organization [facility] Address [address] [place] [address] Care Team Providers Name Role Phone Mook Coffey DO Primary Care Provider Reason for Visit Reason Onset Date Comments Abnormal Labs 10/10/2018 WBC Encounter Details Date Type Department Care Team Description 10/10/[facility] Rolando Isaac RN [address] [place] [address] Social History Tobacco Use Types [...] Telephone Encounter - Navneet Burden RN - 10/10/2018 2:04 PM EDT Received call from Noni at [facility] Lab reporting Carol Keller WBC is 123.3 today. Reviewed with Nilam So APRN. documented in this encounter Plan of Treatment Upcoming Encounters Date Type Specialty Care Team Description 02/11/2022 Scheduled View Only Hematology and Ángel Fischer Oncology [facility] ONCOLOGY [place], [place] [address] (Wo kash) 02/11/2022 TH Visit (TeleHealth) Ángel Hill Oncology [facility] [address] [place], [place] [address] (Shana hewitt) 02/11/2022 Infusion Hematology and Oncology 02/11/2022 Office Visit Hematology and Jazzy Armendariz R D Oncology [facility] DR[address] HEMATOLOGY AND ONCOLOGY [place], [place] [address] (Wo rk) 02/22/2022 TH Visit (TeleHealth) Hematology and Yaquelin Celis Oncology E, [facility] HEMATOLOGY AND ONCOLOGY [place], [place] [address] (Wo rk) 02/25/2022 Office Visit Hematology and Ángel Fischer Oncology [facility] ONCOLOGY [place], [place] [address] (Wo rk) 02/25/2022 Infusion Hematology and Oncology 03/10/2022 Scheduled View Only Obstetrics and Nurse, Julian COLEMAN, mine environmental engineer 03/10/2022 Office Visit Obstetrics and Shazia Whitley, Gynecology [facility] UROGYNECOLOGY [place], [place] [address] (Wo rk) 03/11/2022 Office Visit Hematology and Ángel Fischer MD [facility] [place] [address] Oncology Alyssa Joseph, [address] MEDICAL ONCOLOGY [place], [place] [phone] 03/11/2022 Infusion Hematology and Oncology 03/25/2022 Office Visit Hematology and Alyssa Joseph, Oncology [address] [place] [address] (Wo rk) 03/25/2022 Infusion Hematology and Oncology 03/31/2022 Office Visit Hematology and Alan Livingston M D [facility] HEMATOLOGY/[place] [address] Oncology Nilam So, [facility] HEMATOLOGY/[place] [address] 04/08/2022 Office Visit Hematology and Ángel Fischer MD [facility] [place] [address] Oncology Alyssa Joseph, SATELLITE SPECIALIST [address] [place] [address] DR MEDICAL ONCOLOGY [place], [place] [address] 04/08/2022 Infusion Hematology and Oncology documented as of this encounter Procedures Procedure Name Priority Date/Time Associated Diagnosis Comme nts CBC (WITH DIFF) Routine 10/10/2018 Results for this procedure are in the resu lts section. documented in this encounter Results CBC (with Diff) (10/10/2018) P athologist Signature WBC 123.3 Comment: from [facility] Specimen (Source) Anatomical Location Collection Method / Collectio n Time Received Time / Laterality Volume Blood specimen 10/10/2018 (specimen) Nilam So SATELLITE SPECIALIST HEMATOLOGY ORDERABLES documented in this encounter Visit Diagnoses Not on filedocumented in this encounter Care Teams Stamps Or Coins Salesperson Relationship Specialty Start Date End Date Mook Coffey DO PCP - General Family Medicine 02/16/[address] [place] [phone] documented as of this encounter
--- OUTSIDE RECORDS SUMMARY | 2022-02-11 01:08 | XMS_ITS | Encounter Summary ---
:1950 Author Organization [facility] [place] [address] Care Team Providers Name Role Phone Mook Coffey DO Primary Care Provider Encounter Details Date Type Department Care Team Description 06/14/2018 Office Visit Hematology/Oncology Shayna Livingston MD CLL (chronic at [facility] lymphocytic leukemia) [address] [place], [place] HEMATOLOGY/ONCOLOG [address] Y DEPT. [phone] [place], [place] [address] Social History Tobacco Use Types [...] Sign Reading Time Taken Comments Blood Pressure 137/70 06/14/2018 3:35 PM EST Pulse 92 06/14/2018 3:35 PM EST Temperature 36.4 ??C (97.5 ??F) 06/14/2018 3:35 PM EST Respiratory Rate 18 06/14/2018 3:35 PM EST Oxygen Saturation 100% 06/14/2018 3:35 PM EST Inhaled Oxygen Concentration - - Weight 83.9 kg (185 lb) 06/14/2018 3:35 PM EST Height 163.8 cm (5' 4.49) 06/14/2018 3:35 PM EST copie d Body Mass Index 31.28 06/14/2018 3:35 PM EST documented in this encounter Progress Notes Alan Livingston MD - 06/14/2018 3:30 PM EST Subjective: Patient ID: Carol Keller is a 68 y.o. female here for f/u of CLL Patient Active Problem List Diagnosis ??? Prolapse of vaginal wall ??? Urethral sphincter deficiency, intrinsic (ISD) ??? Pelvic organ prolapse quantification stage 3 cystocele ??? Mixed incontinence ??? Seborrheic keratosis ??? Cerebral infarction Bilateral MCA territory left>right ??? On anticoagulant therapy ??? Pulmonary embolism ??? AK (actinic keratosis) ??? History of SCC (squamous cell carcinoma) of skin ??? Macular pucker, right eye ??? Horseshoe retinal tear, right eye ??? SVT (supraventricular tachycardia) ??? Urinary incontinence, overflow ??? GERD (gastroesophageal reflux disease) ??? Diabetes mellitus ??? CLL (chronic lymphocytic leukemia) Dx 12/28 w/ WBC 27k P-53, CD38 and zap -70 negative. Cytogenetics 13 deletion (favorable prognosis) Observation only Pneumovax 2014 HPI The patient is a 68-year-old female who returns to [facility] in follow-up for her CLL. She has been followed for over 9 years without any treatment. Since last seen she has been well. No recent infections. No fevers chills sweats or weight loss. Sheremains on Eliquis. Review of Systems Constitutional: Negative. HENT: Negative. Eyes: Negative. Respiratory: Negative. Negative for cough and shortness of breath. Cardiovascular: Negative. Negative for chest pain, palpitations and leg swelling. Gastrointestinal: Negative. Negative for constipation, diarrhea, nausea and vomiting. Genitourinary: Negative. Musculoskeletal: Positive for back pain. As above Skin: Negative. Neurological: Negative. Negative for weakness [...] no guarding. Musculoskeletal: Normal range of motion. She exhibits no edema. Lymphadenopathy: She has cervical adenopathy. Right cervical: Posterior cervical adenopathy present. She has no axillary adenopathy. Right: No inguinal and no supraclavicular adenopathy present. Left: No inguinal and no supraclavicular adenopathy present. Right posterior cervical 1 cm node Left axillary 1cm Neurological: She is alert and oriented to person, place, and time. Skin: Skin is warm and dry. Psychiatric: She has a normal mood and affect. Laboratory data from 06/07/18 White count 114, hemoglobin 13.4, platelets 195 Assessment and Plan: 68-year-old female with history of good risk chronic lymphocytic leukemia. Her white count has slowly been rising but she has not developed anemia or thrombocytopenia and there is no reason to initiatetherapy. Counts stable with slowly rising white count. No worrisome or symptomatic adenoapthy. No B symptoms,ALC doubling time is about 2 years, No recurrent infections, no signs of AIHA or ITP. No concern fortransformation. No indication for treatment at this time. Reviewed CLL and indications for therapy, Also reviewed inherent increase risk for infection. I will ask you to return in 4 months for continued monitoring. She will see Nilam YOUSSEF at [facility]. documented in this encounter Plan of Treatment Upcoming Encounters Date Type Specialty Care Team Description 02/11/2022 Scheduled View Only Hematology and Ángel Fischer Oncology [facility] ONCOLOGY [place], [place] [address] (Wo kash) 02/11/2022 TH Visit (TeleHealth) Hematology Ángel Kimbrough Oncology [facility] ONCOLOGY [place], [place] [address] (Wo rk) 02/11/2022 Infusion Hematology and Oncology 02/11/2022 Office Visit Hematology and Jazzy Armendariz R D Oncology [facility]AR HEMATOLOGY AND ONCOLOGY [place], [place] [address] (Wo rk) 02/22/2022 TH Visit (TeleHealth) Hematology and Yaquelin Celis Oncology E, [facility] DR HEMATOLOGY AND ONCOLOGY [place], [place] [address] (Wo rk) 02/25/2022 Office Visit Hematology and Ángel Fischer Oncology [facility] ONCOLOGY [place], [place] [address] (Wo rk) 02/25/2022 Infusion Hematology and Oncology 03/10/2022 Scheduled View Only Obstetrics and Nurse, Julian COLEMAN, day care provider 03/10/2022 Office Visit Obstetrics and Shazia Whitley, Gynecology [facility] UROGYNECOLOGY [place], [place] [address] (Wo rk) 03/11/2022 Office Visit Hematology and Ángel Fischer MD [facility] [place] [address] Oncology Alyssa Joseph, [address] MEDICAL ONCOLOGY [place], [place] [address] 03/11/2022 Infusion Hematology and Oncology 03/25/2022 Office Visit Hematology and Alyssa Joseph Oncology [address] [place] [address] (Wo rk) 03/25/2022 Infusion Hematology and Oncology 03/31/2022 Office Visit Hematology and Alan Livingston M D [facility] DR HEMATOLOGY/[place] [address] [facility] [address] 04/08/2022 Office Visit Hematology and Ángel Fischer MD [facility] [place] [address] Oncology Alyssa Joseph, FUEL CELL ENGINEER [address] [place] [address] MEDICAL ONCOLOGY [place], [place] [address] 04/08/2022 Infusion Hematology and Oncology documented as of this encounter Visit Diagnoses Diagnosis CLL (chronic lymphocytic leukemia) Chronic lymphoid leukemia, without menti on of having achieved remission documented in this encounter Care Teams Tube And Rod Straightener Relationship Specialty Start Date End Date Mook Coffey DO PCP - General Family Medicine 02/16/[address] [place] [phone] documented as of this encounter
--- OUTSIDE RECORDS SUMMARY | 2022-02-11 01:08 | XMS_ITS | Encounter Summary ---
:1950 Author Organization [facility] [place] [address] Care Team Providers Name Role Phone Mook Coffey DO Primary Care Provider Reason for Visit Reason Comments Liu Check Encounter Details Date Type Department Care Team Description 03/02/2020 Office Visit Obstetrics and Chika Crandall Pessary ma intenance Gynecology at [facility] LITIGATION ASSISTANT [facility] [place] [place] [address] [place] [address] [phone] (Wo rk) Social History Tobacco Use Types [...] Sign Reading Time Taken Comments Blood Pressure 118/61 03/02/2020 1:44 PM EDT Pulse 62 03/02/2020 1:44 PM EDT Temperature 36.5 ??C (97.7 ??F) 03/02/2020 1:44 PM EDT Respiratory Rate 16 03/02/2020 1:44 PM EDT Oxygen Saturation 98% 03/02/2020 1:44 PM EDT Inhaled Oxygen Concentration - - Weight 85.7 kg (189 lb) 03/02/2020 1:44 PM EDT Height 163.8 cm (5' 4.49) 03/02/2020 1:44 PM EDT Body Mass Index 31.95 03/02/2020 1:44 PM EDT documented in this encounter Progress Notes Chika Crandall APRN - 03/02/2020 2:30 PM EDT Patient Active Problem List Diagnosis [...] pessary check. Pessary type: #3 ring with support EMLA please She denies vaginal bleeding, bothersome discharge, or pain. OBJECTIVE: Blood pressure 118/61, pulse 62, temperature 36.5 ??C (97.7 ??F), temperature source Temporal, resp.rate 16, height 163.8 cm (5' 4.49), weight 85.7 kg (189 lb), SpO2 98 %. Pelvic: Normal external genitalia, including urethral meatus and perineum. Vagina: Mild erythematous patches without ulceration or granulation tissue Cervix: No lesion or bleeding, no CMT Bimanual: uterus mobile, nontender; no tissue defect Rectal deferred. ASSESSMENT: Carol Keller is a 69 y.o. year old woman with: ?? Uterovaginal prolapse. Managing well with the pessary. PLAN: ??? The pessary was removed, cleansed and replaced. ??? Return in 6 months for recheck. Chika Crandall APRN Division of Female Pelvic Medicine & Reconstructive Surgery documented in this encounter Plan of Treatment Upcoming Encounters Date Type Specialty Care Team Description 02/11/2022 Scheduled View Only Hematology and Ángel Fischer Oncology [facility] ONCOLOGY [place], [place] [address] (Wo rk) 02/11/2022 TH Visit (TeleHealth) Hematology and Ángel Fischer Oncology [facility] ONCOLOGY [place], [place] [address] (Wo rk) 02/11/2022 Infusion Hematology and Oncology 02/11/2022 Office Visit Hematology and Jazzy Armendariz R D Oncology [facility] DRIVE HEMATOLOGY AND ONCOLOGY [place], [place] [address] (Wo rk) 02/22/2022 TH Visit (TeleHealth) Hematology and Yaquelin Celis Oncology E, [facility] HEMATOLOGY AND ONCOLOGY [place], [place] [address] (Wo rk) 02/25/2022 Office Visit Hematology Ángel Kimbrough Oncology [facility] [address] [place], [place] [address] (Wo rk) 02/25/2022 Infusion Hematology and Oncology 03/10/2022 Scheduled View Only Obstetrics and Nurse, Julian COLEMAN, maintenance department technician 03/10/2022 Office Visit Obstetrics and Shazia Whitley, Gynecology [facility] UROGYNECOLOGY [place], [place] [address] (Wo rk) 03/11/2022 Office Visit Ángel Hill MD [facility] [place] [address] Oncology Alyssa oJseph, [address] MEDICAL ONCOLOGY [place], [place] [id number] 03/11/2022 Infusion Hematology and Oncology 03/25/2022 Office Visit Hematology and Alyssa Joseph, Oncology [address] MEDICAL ONCOLOGY [place], [place] [phone] (Wo rk) 03/25/2022 Infusion Hematology and Oncology 03/31/2022 Office Visit Hematology and Alan Livingston M D [facility] DR HEMATOLOGY/[place] [address] Oncology Nilam So, LITIGATION ASSISTANT [facility] DR HEMATOLOGY/[place] [address] 04/08/2022 Office Visit Hematology and Ángel Fischer MD [facility] [place] [address] Oncology Alyssa Joseph[address] MEDICAL ONCOLOGY [place], [place] [address] 04/08/2022 Infusion Hematology and Oncology documented as of this encounter Visit Diagnoses Diagnosis Pessary maintenance Fitting and adjustment of other device documented in this encounter Care Teams Hog Scalder Relationship Specialty Start Date End Date Mook Coffey DO PCP - General Family Medicine 02/16/[address] [place] [phone] documented as of this encounter
--- OUTSIDE RECORDS SUMMARY | 2022-02-11 01:08 | XMS_ITS | Encounter Summary ---
:1950 Author Organization [facility] [place] [address] Care Team Providers Name Role Phone Mook Coffey DO Primary Care Provider Reason for Visit Reason Comments Pessary Check Encounter Details Date Type Department Care Team Description 07/13/2018 Office Visit Obstetrics and Chika Crandall, Liu hernandez intenance; Gynecology at [facility] HVAC MAINTENANCE TECHNICIAN [facility] [address] [place], [place] [phone] Social History Tobacco Use Types Packs/Day Years [...] Sign Reading Time Taken Comments Blood Pressure 133/62 07/13/2018 12:37 PM EST Pulse 87 07/13/2018 12:37 PM EST Temperature - - Respiratory Rate 16 07/13/2018 12:37 PM EST Oxygen Saturation 100% 07/13/2018 12:37 PM EST Inhaled Oxygen Concentration - - Weight - - Height 163.8 cm (5' 4.49) 07/13/2018 12:37 PM EST Body Mass Index - - documented in this encounter Progress Notes Chika Crandall, HVAC MAINTENANCE TECHNICIAN - 07/13/2018 1:15 PM EST Patient Active Problem List Diagnosis [...] today for a pessary check. Pessary type: #4 ring with support She denies vaginal bleeding, discharge, or pain. Immediately following this visit she will be seen in Urology for evaluation of her PVR. She's been bothered by urge incontinence. She has not had pelvic floor PT; we discussed that it does not cure prolapse or IUSD but may help her maximize her voluntary muscle controls. She will ask Dr. Wahl aboutwhether that might be an appropriate modality for her. OBJECTIVE: Height 163.8 cm (5' 4.49). Pelvic: There is erythema in the infrapannicular fold and in both inguinal creases with small satellite lesions c/w candidal intertrigo. Normal external genitalia, including urethral meatus and perineum. Vagina: Smooth pale epithelium without erosion or discharge; no bleeding Cervix: Small without lesion or bleeding Bimanual: uterus nontender, no mass or nodularity Rectal deferred. ASSESSMENT: Carol Keller is a 68 y.o. year old woman with: ?? Prolapse, incomplete. Managing well with the pessary. ?? Skin rash consistent with fungal intertrigo PLAN: ??? The pessary was removed, cleansed and replaced. ??? Nystatin powder, apply to clean dry skin BID x 2 weeks then prn ??? Return in 3 months for recheck. . Chika Crandall APRN Division of Female Pelvic Medicine & Reconstructive Surgery documented in this encounter Plan of Treatment Upcoming Encounters Date Type Specialty Care Team Description 02/11/2022 Scheduled View Only Hematology and Ángel Fischer Oncology [facility] ONCOLOGY [place], [place] [address] (Wo rk) 02/11/2022 TH Visit (TeleHealth) Hematology Ángel Kimbrough Oncology [facility] ONCOLOGY [place], [place] [address] (Wo rk) 02/11/2022 Infusion Hematology and Oncology 02/11/2022 Office Visit Hematology and Jazzy Armendariz R [facility] HEMAT[facility]Y AND ONCOLOGY [place], [place] [address] (Wo rk) 02/22/2022 TH Visit (TeleHealth) Hematology and Yaquelin Celis Oncology [facility] HEMATOLOG[facility] AND ONCOLOGY [place], [place] [address] (Wo rk) 02/25/2022 Office Visit Hematology Ángel Kimbrough Oncology [facility] ONCOLOGY [place], [place] [address] (Wo rk) 02/25/2022 Infusion Hematology and Oncology 03/10/2022 Scheduled View Only Obstetrics and Nurse, Julian COLEMAN, food concession manager 03/10/2022 Office Visit Obstetrics and Shazia Whitley Gynecology [facility] UROGYNECOLOGY [place], [place] [address] (Wo rk) 03/11/2022 Office Visit Hematology Ángel Kimbrough MD [facility] [place] [address] Oncology Alyssa Joseph, [address] [place] [address] 03/11/2022 Infusion Hematology and Oncology 03/25/2022 Office Visit Hematology and Alyssa Joseph, Oncology [address] MEDICAL ONCOLOGY [place], [place] [address] (Wo rk) 03/25/2022 Infusion Hematology and Oncology 03/31/2022 Office Visit Hematology and Alan Livingston M D [facility] DR HEMATOLOGY/[place] [address] Oncology Nilam So, [facility] DR HEMATOLOGY/[place] [address] 04/08/2022 Office Visit Hematology and Ángel Fischer MD [facility] [place] [address] Oncology Alyssa Joseph, [address] MEDICAL ONCOLOGY [place], [place] [phone] 04/08/2022 Infusion Hematology and Oncology documented as of this encounter Visit Diagnoses Diagnosis Pessary maintenance Fitting and adjustment of other device Candidal intertrigo Candidiasis of skin and nails documented in this encounter Care Teams Cripple Cutter Relationship Specialty Start Date End Date Mook Coffey DO PCP - General Family Medicine 02/16/[address] [place] [phone] documented as of this encounter
--- OUTSIDE RECORDS SUMMARY | 2022-02-11 01:08 | XMS_ITS | Encounter Summary ---
:1950 Author Organization [facility] Address [facility] [address] [place] [address] Care Team Providers Name Role Phone Mook Coffey DO Primary Care Provider Reason for Visit Reason Onset Date Comments Labs Only 06/10/2020 Lab Reporting Encounter Details Date Type Department Care Team Description 06/10/2020 Telephone Hematology Oncology at [place], Labs Only (Lab [facility] RN Reporting) [address] [place] [phone] Social History Tobacco Use Types [...] View Only Hematology and Ángel Fischer Oncology [facility] ONCOLOGY [place], [place] [address] (Shana hewitt) 02/11/2022 TH Visit (TeleHealth) Hematology Ángel Kimbrough Oncology [facility] ONCOLOGY [place], [place] [address] (Shana hewitt) 02/11/2022 Infusion Hematology and Oncology 02/11/2022 Office Visit Hematology and Jazzy Armendariz R D Oncology [facility] HEMATOLOGY AND ONCOLOGY [place], [place] [address] (Shana hewitt) 02/22/2022 TH Visit (TeleHealth) Hematology and Yaquelin Celis Oncology E, [facility] HEMATOLOGY AND ONCOLOGY [place], [place] [address] (Shana hewitt) 02/25/2022 Office Visit Ángel Hill H, Oncology [facility] ONCOLOGY [place], [place] [address] (Wo rk) 02/25/2022 Infusion Hematology and Oncology 03/10/2022 Scheduled View Only Obstetrics and Nurse, Julian COLEMAN, web site developer 03/10/2022 Office Visit Obstetrics and Gutierrez, Shazia Baer, Gynecology [facility] UROGYNECOLOGY [place], [place] [address] (Wo rk) 03/11/2022 Office Visit Hematology and Ángel Fischer MD [facility] [place] [address] Oncology Alyss[address] MEDICAL ONCOLOGY [place], [place] [phone] 03/11/2022 Infusion Hematology and Oncology 03/25/2022 Office Visit Hematology and Alyssa Joseph Oncology [address] ONCOLOGY [place], [place] [address] (Wo rk) 03/25/2022 Infusion Hematology and Oncology 03/31/2022 Office Visit Hematology and Alan Livingston M D [facility] DR HEMATOLOGY/[place] [address] Oncology Nilam So, [facility] HEMATOLOGY/[place] [address] 04/08/2022 Office Visit Hematology and Ángel Fischer MD [facility] [place] [address] Oncology Alyss[address] Joseph[address] MEDICAL ONCOLOGY [place], [place] [phone] 04/08/2022 Infusion Hematology and Oncology documented as of this encounter Procedures Procedure Name Priority Date/Time Associated Diagnosis Comme nts CBC (WITH DIFF) Routine 06/05/2020 Results for this procedure are i n the results section . COMPREHENSIVE METABOLIC Routine 06/05/2020 Resu lts for this PANEL (NON-FASTING) procedur e are in the results section . documented in this encounter Results Comprehensive metabolic panel (non-fasting) (06/05/2020) athologist Signature BUN 16 Creatinine 0.90 Sodium 143 Potassium 3.8 Calcium 8.7 Total Protein 6.8 Albumin 4.2 Total Bilirubin 0.3 Alk Phos 74 AST 33 ALT 23 Specimen (Source) Anatomical Location Collection Method / Collectio n Time Received Time / Laterality Volume Blood 06/05/2020 Alan Livingston MD CHEMISTRY ORDERABLES CBC (with Diff) (06/05/2020) athologist Signature WBC 117.0 RBC 4.67 Hemoglobin 11.7 Hematocrit 40.7 Platelets 205 Neutr Abs (ANC) 10.53 Specimen (Source) Anatomical Location Collection Method / Collectio n Time Received Time / Laterality Volume Blood 06/05/2020 Alan Livingston MD HEMATOLOGY ORDERABLES documented in this encounter Visit Diagnoses Not on filedocumented in this encounter Care Teams Skin Grader Relationship Specialty Start Date End Date Mook Coffey DO PCP - General Family Medicine 02/16/[address] [place] [phone] documented as of this encounter
--- OUTSIDE RECORDS SUMMARY | 2022-02-11 01:08 | XMS_ITS | Encounter Summary ---
:1950 Author Organization [facility] [place] [address] Care Team Providers Name Role Phone Mook Coffey DO Primary Care Provider Encounter Details Date Type Department Care Team Description 02/13/2019 Office Visit Hematology/Oncology Nilam So, CLL ( chronic at [facility] HORSEBACK RIDING INSTRUCTOR lymphocytic leukemia) [address] [place] [phone] HEMATOLOGY/ONCOLOG [phone] Y DEPT. [place], [place] [address] Social History Tobacco Use Types [...] Sign Reading Time Taken Comments Blood Pressure 149/78 02/13/2019 12:10 PM EDT Pulse 85 02/13/2019 12:10 PM EDT Temperature 36.9 ??C (98.4 ??F) 02/13/2019 12:10 PM EDT Respiratory Rate 18 02/13/2019 12:10 PM EDT Oxygen Saturation 99% 02/13/2019 12:10 PM EDT Inhaled Oxygen Concentration - - Weight 84.4 kg (186 lb) 02/13/2019 12:10 PM EDT Height - - Body Mass Index 31.43 12/31/2018 1:46 PM EDT documented in this encounter Progress Notes Nilam So, HORSEBACK RIDING INSTRUCTOR - 02/13/2019 12:00 PM EDT Subjective: Patient ID: Carol Keller is a 68 y.o. female here for f/u of CLL Patient Active Problem List Diagnosis ??? Urethral sphincter deficiency, intrinsic (ISD) ??? [...] only Pneumovax 2015 HPI Anahi is doing well - she is staying busy with her quilting and other crafts. She has been healthy -she has had 2 UTI's since last seen. She denies any new lumps or bumps, no drenching night sweats. Her energy is good. She admits to not getting gout and exercising as much as she should Review of Systems Constitutional: Negative. HENT: Negative. [...] She exhibits no edema. Lymphadenopathy: She has no cervical adenopathy. She has no axillary adenopathy. Right: No inguinal and no supraclavicular adenopathy present. Left: No inguinal and no supraclavicular adenopathy present. bilat posterior cervical nodes right>left 1cm Light axillary node 1cm Neurological: She is alert and oriented to person, place, and time. Skin: Skin is warm and dry. Psychiatric: She has a normal mood and affect. Lab Results Component Value Date WBC 118.2 02/04/2019 HGB 13.2 02/04/2019 HCT 42.8 02/04/2019 MCV 92.3 01/30/2017 PLATELET 169 02/04/2019 Chemistry Component Value Date/Time NA 143 01/30/2017 1412 K 4.0 01/30/2017 1412 CL 102 01/30/2017 1412 CO2 28 01/30/2017 1412 BUN 19 02/04/2019 CREATININE 0.70 02/04/2019 Component Value Date/Time CALCIUM 9.2 01/30/2017 1412 ALKPHOS 70 01/30/2017 1412 AST 20 01/30/2017 1412 ALT 20 01/30/2017 1412 BILITOT 0.3 01/30/2017 1412 Lab Results Component Value Date LDH 454 02/04/2019 BP 149/78 (Patient Position: Sitting) Pulse 85 Temp 36.9 ??C (98.4 ??F) (Oral) Resp 18 Wt 84.4 kg (186 lb) SpO2 99% BMI 31.43 kg/m?? Assessment and Plan: Assessment: CLL. Counts remain stable, No worrisome or symptomatic adenoapthy. No B symptoms, No recurrent infections, no signs of AIHA or ITP. Her ALC is actually lower than last year. No concern for transformation. No indication for treatment at this time. Reviewed CLL and indications for therapy, Also reviewed inherent increase risk for infection. Influenza = UTD Pneumococcal - UTD Plan: We will continue to monitor in hematology clinic. Reviewed CLL and indications for treatment. Carol will return to hematology in 4 months. she will call if there are any problems before then. documented in this encounter Plan of Treatment Upcoming Encounters Date Type Specialty Care Team Description 02/11/2022 Scheduled View Only Hematology and Ángel Fischer Oncology [facility] ONCOLOGY [place], [place] [address] (Wo rk) 02/11/2022 TH Visit (TeleHealth) Hematology Ángel Kimbrough Oncology [facility] ONCOLOGY [place], [place] [address] (Wo rk) 02/11/2022 Infusion Hematology and Oncology 02/11/2022 Office Visit Hematology and Jazzy Armendariz [facility] HEMATOLOGY AND ONCOLOGY [place], [place] [address] (Wo rk) 02/22/2022 TH Visit (TeleHealth) Hematology and Yaquelin Celis Oncology E, [facility] HEMATOLOGY AND ONCOLOGY [place], [place] [address] (Wo rk) 02/25/2022 Office Visit Hematology Ángel Kimbrough Oncology [facility] ONCOLOGY [place], [place] [address] (Wo rk) 02/25/2022 Infusion Hematology and Oncology 03/10/2022 Scheduled View Only Obstetrics and Nurse, Julian COLEMAN, gas meter checker 03/10/2022 Office Visit Obstetrics and Shazia Whitley Gynecology [facility] UROGYNECOLOGY [place], [place] [address] (Wo rk) 03/11/2022 Office Visit Ángel Hill MD [facility] [address] Oncology Alyssa Joseph, [address] MEDICAL ONCOLOGY [place], [place] [phone] 03/11/2022 Infusion Hematology and Oncology 03/25/2022 Office Visit Hematology and Alyssa Joseph Oncology [address] MEDICAL ONCOLOGY [place], [place] [phone] (Wo rk) 03/25/2022 Infusion Hematology and Oncology 03/31/2022 Office Visit Hematology and Alan Livingston M D [facility] DR HEMATOLOGY/[place] [address] Oncology Nilam So APRN [facility] DR HEMATOLOGY/[place] [address] 04/08/2022 Office Visit Hematology and Ángel Fischer MD [facility] [place] [address] Oncology Alyssa Joseph[address] [place] [address] 04/08/2022 Infusion Hematology and Oncology documented as of this encounter Procedures Procedure Name Priority Date/Time Associated Diagnosis Comme nts CBC (WITH DIFF) Routine 02/04/2019 Results for this procedure are i n the results section . LACTATE DEHYDROGENASE Routine 02/04/2019 Result s for this procedure are i n the results section . COMPREHENSIVE METABOLIC Routine 02/04/2019 Resu lts for this PANEL (NON-FASTING) procedur e are in the results section . documented in this encounter Results Lactate Dehydrogenase (02/04/2019) athologist Signature LDH 454 Specimen (Source) Anatomical Location Collection Method / Collectio n Time Received Time / Laterality Volume Blood specimen 02/04/2019 (specimen) Nilam So HORSEBACK RIDING INSTRUCTOR CHEMISTRY ORDERABLES CBC (with Diff) (02/04/2019) athologist Signature WBC 118.2 Hemoglobin 13.2 Hematocrit 42.8 Platelets 169 Neutr Abs (ANC) 7.09 Specimen (Source) Anatomical Location Collection Method / Collectio n Time Received Time / Laterality Volume Blood specimen 02/04/2019 (specimen) Nilam So HORSEBACK RIDING INSTRUCTOR HEMATOLOGY ORDERABLES Comprehensive metabolic panel (non-fasting) (02/04/2019) P athologist Signature BUN 19 Creatinine 0.70 Specimen (Source) Anatomical Location Collection Method / Collectio n Time Received Time / Laterality Volume Blood specimen 02/04/2019 (specimen) Nilam So HORSEBACK RIDING INSTRUCTOR CHEMISTRY ORDERABLES documented in this encounter Visit Diagnoses Diagnosis CLL (chronic lymphocytic leukemia) Chronic lymphoid leukemia, without menti on of having achieved remission documented in this encounter Care Teams Teachers Assistant Relationship Specialty Start Date End Date Mook Coffey DO PCP - General Family Medicine 02/16/[address] [place] [phone] documented as of this encounter
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
--- OUTSIDE RECORDS SUMMARY | 2022-02-11 01:08 | XMS_ITS | Encounter Summary ---
:1950 Author Organization [facility] [place] [address] Care Team Providers Name Role Phone Mook Coffey DO Primary Care Provider Encounter Details Date Type Department Care Team Description 10/24/2018 Office Visit Hematology/Oncology Bernardo Salmon MD [facility] DR HEMATOLOGY/[place] [address] CLL (chronic at [facility] Nilam So APRN [facility] DR HEMATOLOGY/[place] [address] lymphocytic leukemia) [address] [place] [phone] Social History Tobacco Use Types Packs/Day [...] Sign Reading Time Taken Comments Blood Pressure 135/65 10/24/2018 11:21 AM EDT Pulse 74 10/24/2018 11:21 AM EDT Temperature 36.9 ??C (98.4 ??F) 10/24/2018 11:21 AM EDT Respiratory Rate 16 10/24/2018 11:21 AM EDT Oxygen Saturation 97% 10/24/2018 11:21 AM EDT Inhaled Oxygen Concentration - - Weight 83 kg (183 lb) 10/24/2018 11:21 AM EDT Height 163.8 cm (5' 4.49) 10/24/2018 11:21 AM EDT Body Mass Index 30.94 10/24/2018 11:21 AM EDT documented in this encounter Progress Notes Nilam So, CAROUSEL OPERATOR - 10/24/2018 11:30 AM EDT Subjective: Patient ID: Carol [...] only Pneumovax 2014 HPI Anahi is doing great- she has been healthy. She has had a few aches and pains - history of OA. She is doing streching and strengthening exercises. She has been busy quilting and hanging out with her sweet dogs. She has been healthy without any infections. NO new lumps or bumps. No drenching night sweats. Energy is good. She really is without concerns today. Review of Systems Constitutional: Negative. HENT: Negative. Eyes: Negative. Respiratory: Negative. Negative for cough and shortness of breath. Cardiovascular: Negative. Negative for chest pain, palpitations and leg swelling. Gastrointestinal: Negative. Negative for constipation, diarrhea, nausea and vomiting. Genitourinary: Negative. Musculoskeletal: Positive for arthralgias. Skin: Negative. Neurological: Negative. Negative for weakness [...] no edema. Lymphadenopathy: She has cervical adenopathy. She has axillary adenopathy. Right: No inguinal and no supraclavicular adenopathy present. Left: No inguinal and no supraclavicular adenopathy present. bilat 1cm posterior cervical nodes Neurological: She is alert and oriented to person, place, and time. Skin: Skin is warm and dry. Psychiatric: She has a normal mood and affect. Lab Results Component Value Date WBC 123.3 10/10/2018 HGB 13.9 10/10/2018 HCT 45.5 10/10/2018 MCV 92.3 01/30/2017 PLATELET 170 10/10/2018 Chemistry Component Value Date/Time NA 143 01/30/2017 1412 K 4.0 01/30/2017 1412 CL 102 01/30/2017 1412 CO2 28 01/30/2017 1412 BUN 24 10/10/2018 CREATININE 0.90 10/10/2018 Component Value Date/Time CALCIUM 9.2 01/30/2017 1412 ALKPHOS 70 01/30/2017 1412 AST 20 01/30/2017 1412 ALT 20 01/30/2017 1412 BILITOT 0.3 01/30/2017 1412 Lab Results Component Value Date LDH 502 10/10/2018 BP 135/65 (Patient Position: Sitting) Pulse 74 Temp 36.9 ??C (98.4 ??F) (Oral) Resp 16 Ht 163.8 cm (5' 4.49) Wt 83 kg (183 lb) SpO2 97% BMI 30.94 kg/m?? Assessment and Plan: 1. Assessment: CLL. Counts stable, No worrisome or symptomatic adenoapthy. No B symptoms, ALC doubling time is well over 5 years (although she did have a dramatic drop in her ALC a few years ago when she had a coure of prednisone for other etiology), No recurrent infections, no signs of AIHA [...] View Only Hematology and Ángel Fischer Oncology [facility] [place] [address] (Wo rk) 02/11/2022 TH Visit (TeleHealth) Hematology Ángel Kimbrough Oncology [facility] DR UMANA [place], [place] [address] (Wo rk) 02/11/2022 Infusion Hematology and Oncology 02/11/2022 Office Visit Hematology and Jazzy Armendariz R D Oncology [facility] CESAR HEMATOLOGY AND ONCOLOGY [place], [place] 0[address] (Wo rk) 02/22/2022 TH Visit (TeleHealth) Hematology and Yaquelin Celis Oncology E, [facility] HEMATOLOGY KIRK UMANA [place], [place] 0375 (Wo rk) 02/25/2022 Office Visit Ángel Hill Oncology [facility] DR [place], [place] [address] (Wo rk) 02/25/2022 Infusion Hematology and Oncology 03/10/2022 Scheduled View Only Obstetrics and Nurse, Obgyn II, formal service waiter 03/10/2022 Office Visit Obstetrics and Shazia Whitley Gynecology CAROUSEL OPERATOR [facility] UROGYNECOLOGY [place], [place] [address] (Wo rk) 03/11/2022 Office Visit Ángel Hill MD [facility] [place] [address] [address] MEDICAL ONCOLOGY [place], [place] [address] 03/11/2022 Infusion Hematology and Oncology 03/25/2022 Office Visit Hematology and Alyssa Jospeh, Oncology [address] MEDICAL ONCOLOGY [place], [place] [phone] (Wo rk) 03/25/2022 Infusion Hematology and Oncology 03/31/2022 Office Visit Hematology and Alan Livingston M D [facility] DR HEMATOLOGY/[place] [address] Oncology [facility]/[place] [address] 04/08/2022 Office Visit Hematology and Ángel Fischer MD [facility] [place] [address] [address] MEDICAL ONCOLOGY [place], [place] [phone] 04/08/2022 Infusion Hematology and Oncology documented as of this encounter Procedures Procedure Name Priority Date/Time Associated Comments Diagnosis LAB SCAN 06/10/2019 12:00 Results for this AM EST procedure are i n the results section. CBC (WITH DIFF) Routine 10/10/2018 Results for this procedure are i n the results section. LACTATE DEHYDROGENASE Routine 10/10/2018 Result s for this procedure are i n the results section. COMPREHENSIVE Routine 10/10/2018 Results for th is METABOLIC PANEL procedure ar e in (NON-FASTING) the results section. documented in this encounter Results SCAN DOC: LAB (06/10/2019 12:00 AM EST) Narrative 06/10/2019 12:00 AM EST This result has an attachment that is no t available. Ordered by an unspecified provider. Scanning Provider MEDIA MGR SCAN EXT ORDR/RSLT Lactate Dehydrogenase (10/10/2018) athologist Signature LDH 502 Specimen (Source) Anatomical Location Collection Method / Collectio n Time Received Time / Laterality Volume Blood specimen 10/10/2018 (specimen) Nilam So APRN CHEMISTRY ORDERABLES Comprehensive metabolic panel (non-fasting) (10/10/2018) athologist Signature BUN 24 Creatinine 0.90 Specimen (Source) Anatomical Location Collection Method / Collectio n Time Received Time / Laterality Volume Blood specimen 10/10/2018 (specimen) Nilam So APRN CHEMISTRY ORDERABLES CBC (with Diff) (10/10/2018) athologist Signature Hemoglobin 13.9 Hematocrit 45.5 Platelets 170 Neutr Abs (ANC) 3.70 Specimen (Source) Anatomical Location Collection Method / Collectio n Time Received Time / Laterality Volume Blood specimen 10/10/2018 (specimen) Nilam So APRN HEMATOLOGY ORDERABLES documented in this encounter Visit Diagnoses Diagnosis CLL (chronic lymphocytic leukemia) Chronic lymphoid leukemia, without menti on of having achieved remission documented in this encounter Care Teams Eligibility Examiner Relationship Specialty Start Date End Date Mook Coffey DO PCP - General Family Medicine 02/16/[address] [place] [phone] documented as of this encounter
--- OUTSIDE RECORDS SUMMARY | 2022-02-11 01:08 | XMS_ITS | Encounter Summary ---
:1950 Author Organization [facility] Address [facility] [place] [address] Care Team Providers Name Role Phone Mook Coffey DO Primary Care Provider Reason for Visit Reason Onset Date Comments Abnormal Labs 06/05/2020 WBC Encounter Details Date Type Department Care Team Description 06/05/2020 [facility] Rolando KELLEY [address] [place] [phone] Social History Tobacco Use Types [...] Telephone Encounter - Hollie Silvestre RN - 06/05/2020 2:17 PM EST Critcial WBC of 116.96 today. That is slighty up from 116.5 on 12/16/19. Sent to Dr. Livingston for review. documented in this encounter Plan of Treatment Upcoming Encounters Date Type Specialty Care Team Description 02/11/2022 Scheduled View Only Hematology and Ángel Fischer Oncology [facility] ONCOLOGY [place], [place] [address] (Wo rk) 02/11/2022 TH Visit (TeleHealth) Hematology Ángel Kimbrough Oncology [facility] DR UMANA [place], [place] [address] (Shana hewitt) 02/11/2022 Infusion Hematology and Oncology 02/11/2022 Office Visit Hematology and Jazzy Armendariz R D Oncology [facility] CESAR HEMATOLOGY AND ONCOLOGY [place], [place] 0[address] (Wo rk) 02/22/2022 TH Visit (TeleHealth) Hematology and Yaquelin Celis Oncology E, [facility] DR HEMATOLOGY AND ONCOLOGY [place], [place] 0375 (Wo rk) 02/25/2022 Office Visit Hematology and Ángel Fischer Oncology [facility] ONCOLOGY [place], [place] 0375 (Wo rk) 02/25/2022 Infusion Hematology and Oncology 03/10/2022 Scheduled View Only Obstetrics and Nurse, Julian COLEMAN, contact center agent 03/10/2022 Office Visit Obstetrics and Shazia Whitley, Gynecology [facility] UROGYNECOLOGY [place], [place] 0375 (Wo rk) 03/11/2022 Office Visit Hematology and Ángel Fischer MD [facility] [place] [address] Oncology Alyssa Joseph[address] MEDICAL ONCOLOGY [place], [place] [phone] 03/11/2022 Infusion Hematology and Oncology 03/25/2022 Office Visit Hematology and Alyssa Joseph Oncology [address] [place] [address] (Wo rk) 03/25/2022 Infusion Hematology and Oncology 03/31/2022 Office Visit Hematology and Alan Livingston M D [facility] HEMATOLOGY/[place] [address] Oncology Nilam So, [facility] HEMATOLOGY/[place] [address] 04/08/2022 Office Visit Hematology and Ángel Fischer MD [facility] [place] [address] Oncology Alyssa Joseph[address] MEDICAL ONCOLOGY [place], [place] [address] 04/08/2022 Infusion Hematology and Oncology documented as of this encounter Visit Diagnoses Not on filedocumented in this encounter Care Teams Loader Unloader Relationship Specialty Start Date End Date Mook Coffey DO PCP - General Family Medicine 02/16/[address] [place] [phone] documented as of this encounter
--- OUTSIDE RECORDS SUMMARY | 2022-02-11 01:08 | XMS_ITS | Encounter Summary ---
:1950 Author Organization [facility] [address] Care Team Providers Name Role Phone Mook Coffey DO Primary Care Provider Reason for Visit Reason Comments Follow-up pessalyson Encounter Details Date Type Department Care Team Description 04/01/2019 Office Visit Obstetrics and Chika Crandall Pessary ma intenance Gynecology at [facility] SCIENCE EDUCATION PROFESSOR [facility] [place] [address] [place] [address] [phone] (Wo rk) Social History Tobacco Use Types [...] Sign Reading Time Taken Comments Blood Pressure 134/67 04/01/2019 1:34 PM EST Pulse 93 04/01/2019 1:34 PM EST Temperature 36.6 ??C (97.8 ??F) 04/01/2019 1:34 PM EST Respiratory Rate - - Oxygen Saturation 98% 04/01/2019 1:34 PM EST Inhaled Oxygen Concentration - - Weight 84.1 kg (185 lb 4.8 oz) 04/01/2019 1:34 PM EST Height - - Body Mass Index 31.32 12/31/2018 1:46 PM EDT documented in this encounter Progress Notes Chika Crandall, SCIENCE EDUCATION PROFESSOR - 04/01/2019 2:00 PM EST Patient Active Problem List [...] Carol Keller comes in today for a 3 month pessary check. Pessary type: Ring with support She denies vaginal bleeding, discharge, pain. However, since her last visit she has had more urgency related urine leakage. This is often very situation-specific and we have talked today about urge suppression techniques. [place] to see a PFPT. She had been on imipramine BID for years and had decided to wean off it; currently she's taking daily. With further discussion, she thinks it is possible that the increase in leaking has coincided withthe drop in dose, so she will experiment with going back to her original dose. She has had Coaptite several times with Dr Wahl; she is not willing to take the chance of VTE that might occur if she came off her anticoagulant enough to have a surgical repair. OBJECTIVE: There were no vitals taken for this visit. Pelvic: Normal external genitalia, including urethral meatus and perineum. Vagina: No erosion or discharge Cervix: No lesion or bleeding Bimanual: no mass or tenderness Rectal deferred. ASSESSMENT: Carol Keller is a 69 y.o. year old woman with: ?? Uterovaginal prolapse. Managing well with the pessary. ?? Urinary incontinence, primarily urge related PLAN: ??? The pessary was removed, cleansed and replaced. We have talked today about urge suppression techniques. She [place] to see a PFPT. She had been on imipramine BID for years and had decided to wean off it; currently she's taking daily. With further discussion, she thinks it is possible that the increase in leaking has coincided withthe drop in dose, so she will experiment with going back to her original dose. She has had Coaptite several times with Dr Wahl; she is not willing to take the chance of VTE that might occur if she came off her anticoagulant enough to have a surgical repair. Info given on urgency triggers and urge suppression. ??? Return in 3 to 4 months for recheck. Chika Crandall APRN Division of Female Pelvic Medicine & Reconstructive Surgery documented in this encounter Plan of Treatment Upcoming Encounters Date Type Specialty Care Team Description 02/11/2022 Scheduled View Only Hematology and Ángel Fischer Oncology [facility] ONCOLOGY [place], [place] [address] (Wo rk) 02/11/2022 TH Visit (TeleHealth) Hematology Ángel Kimbrough Oncology [facility] ONCOLOGY [place], [place] 0[address] (Wo rk) 02/11/2022 Infusion Hematology and Oncology 02/11/2022 Office Visit Hematology and Jazzy Armendariz R D Oncology [facility] CESAR HEMATOLOGY AND ONCOLOGY [place], [place] [address] (Wo rk) 02/22/2022 TH Visit (TeleHealth) Hematology and Yaquelin Celis Oncology E, [facility] HEMATOLOGY AND ONCOLOGY [place], [place] 0[address] (Wo rk) 02/25/2022 Office Visit Hematology Ángel Kimbrough Oncology [facility] ONCOLOGY [place], [place] 0[address] (Wo rk) 02/25/2022 Infusion Hematology and Oncology 03/10/2022 Scheduled View Only Obstetrics and Nurse, Julian COLEMAN, side sawyer 03/10/2022 Office Visit Obstetrics and Shazia Whitley Gynecology SCIENCE EDUCATION PROFESSOR [facility] UROGYNECOLOGY [place], [place] 0375 (Wo rk) 03/11/2022 Office Visit Hematology and Ángel Fischer MD [facility] [place] [address] Oncology [address] Joseph[address] MEDICAL ONCOLOGY [place], [place] [address] 03/11/2022 Infusion Hematology and Oncology 03/25/2022 Office Visit Hematology and Alyssa Joseph, Oncology [address] MEDICAL ONCOLOGY [place], [place] [phone] (Wo rk) 03/25/2022 Infusion Hematology and Oncology 03/31/2022 Office Visit Hematology and Alan Livingston M D [facility] DR HEMATOLOGY/[place] [address] [facility]cology [facility] [address] 04/08/2022 Office Visit Hematology and Ángel Fischer MD [facility] [place] [address] Oncology Alyssa Joseph[address] ONCOLOGY [place], [place] [address] 04/08/2022 Infusion Hematology and Oncology documented as of this encounter Visit Diagnoses Diagnosis Pessary maintenance Fitting and adjustment of other device documented in this encounter Care Teams Quality Assurance Supervisor Body Relationship Specialty Start Date End Date Mook Coffey DO PCP - General Family Medicine 02/16/[address] [place] [phone] documented as of this encounter
--- OUTSIDE RECORDS SUMMARY | 2022-02-11 01:08 | XMS_ITS | Encounter Summary ---
:1950 Author Organization [facility] [place] [address] Care Team Providers Name Role Phone Mook Coffey DO Primary Care Provider Reason for Visit Reason Onset Date Comments Labs Only 06/10/2019 Encounter Details Date Type Department Care Team Description 06/10/2019 Telephone Hematology/Oncology at Alan Kaur MD Labs Only [address] HEMATOLOGY/ONCOLOGY [place], [place] [address] DEPT. [phone] [place], [place] [address] (Wo rk) Social History Tobacco [...] Telephone Encounter - Maddie Richardson RN - 06/10/2019 12:[address] Livingston notified of WBC of 90.85. this is lower than past one. Dr. Livingston seeing pt in clinic this 06/13/19. documented in this encounter Plan of Treatment Upcoming Encounters Date Type Specialty Care Team Description 02/11/2022 Scheduled View Only Hematology and Ángel Fischer Oncology [facility] DR L[place]ND[place]Y [place] [address] (Wo kash) 02/11/2022 TH Visit (TeleHealth) Ángel Hill Oncology [facility] DR [place] [address] (Shana hewitt) 02/11/2022 Infusion Hematology and Oncology 02/11/2022 Office Visit Hematology and Jazzy Armendariz R D [facility] DRIVE HEMATOLOGY AND ONCOLOGY [place], [place] 0375 (Wo rk) 02/22/2022 TH Visit (TeleHealth) Hematology and Yaquelin Celis Oncology E, [facility] HEMATOLOGY AND ONCOLOGY [place], [place] [address] (Wo rk) 02/25/2022 Office Visit Hematology and Ángel Fischer Oncology [facility] ONCOLOGY [place], [place] [address]375 (Wo rk) 02/25/2022 Infusion Hematology and Oncology 03/10/2022 Scheduled View Only Obstetrics and Nurse, Julian COLEMAN, hydro excavation operator 03/10/2022 Office Visit Obstetrics and Shazia Whitley Gynecology [facility] UROGYNECOLOGY [place], [place] 0375 (Wo rk) 03/11/2022 Office Visit Hematology and Ángel Fischer MD [facility] [place] [address] Oncology Alyssa Joseph, [address] MEDICAL ONCOLOGY [place], [place] [phone] 03/11/2022 Infusion Hematology and Oncology 03/25/2022 Office Visit Hematology and Alyssa Joseph, Oncology [address] MEDICAL ONCOLOGY [place], [place] [phone] (Wo rk) 03/25/2022 Infusion Hematology and Oncology 03/31/2022 Office Visit Hematology and Alan Livingston M D [facility] HEMATOLOGY/[place] [address] Oncology Nilam So, ADENIKE [facility] DR HEMATOLOGY/[place] [address] 04/08/2022 Office Visit Hematology and Ángel Fischer MD [facility] [place] [address] Oncology Alyssa Joseph, [address] MEDICAL ONCOLOGY [place], [place] [address] 04/08/2022 Infusion Hematology and Oncology documented as of this encounter Procedures Procedure Name Priority Date/Time Associated Diagnosis Comme nts CBC (WITH DIFF) Routine 06/10/2019 Results for this procedure are in the resu lts section. documented in this encounter Results CBC (with Diff) (06/10/2019) P athologist Signature WBC 90.85 Specimen (Source) Anatomical Location Collection Method / Collectio n Time Received Time / Laterality Volume Blood specimen 06/10/2019 (specimen) Historical Provider HEMATOLOGY ORDERABLES documented in this encounter Visit Diagnoses Not on filedocumented in this encounter Care Teams Forestry Technical Officer Relationship Specialty Start Date End Date Mook Coffey DO PCP - General Family Medicine 02/16/[address] [place] [address] [phone] documented as of this encounter
--- OUTSIDE RECORDS SUMMARY | 2022-02-11 01:09 | XMS_ITS | Encounter Summary ---
:1950 Author Organization [facility] Address [facility] [place] [address] Care Team Providers Name Role Phone Berkley Madrigal MD Primary Care Provider Encounter Details Date Type Department Care Team Description 09/27/2017 Telephone Urology at [facility] Carol Wahl, [facility] Katar[place] [address] [facility] [phone] UROLOGY [address]PT. [place] [place], [place] [address] (Wo rk) Social History Tobacco [...] this encounter Miscellaneous Notes Telephone Encounter - Naresh Lugo - 09/27/2017 4:18 PM EDT LMOM - Dr. Wahl wants patient to be scheduled for a Creatinine, CTU and cysto with her. Asked pt to return my call. Need CT safety questions answered. documented in this encounter Plan of Treatment Upcoming Encounters Date Type Specialty Care Team Description 02/11/2022 Scheduled View Only Hematology and Ángel Fischer Oncology [facility] DR [place], [place] [address] (Wo rk) 02/11/2022 TH Visit (TeleHealth) Ángel Hill Oncology [facility] DR [place], [place] [address] (Wo rk) 02/11/2022 Infusion Hematology and Oncology 02/11/2022 Office Visit Hematology and Jazzy Armendariz, R Katarina Oncology [facility] DRIVE HEMATOLOGY AND [place]OGY [place], [place] 0[address] (Wo rk) 02/22/2022 TH Visit (TeleHealth) Hematology and Yaquelin Celis Oncology E, [facility] HEMATOLOGY AND ONCOLOGY [place], [place] [address] (Wo rk) 02/25/2022 Office Visit Hematology and Ángel Fischer, Oncology [facility] ONCOLOGY [place], [place] [address] (Wo rk) 02/25/2022 Infusion Hematology and Oncology 03/10/2022 Scheduled View Only Obstetrics and Nurse, Julian COLEMAN, twister operator 03/10/2022 Office Visit Obstetrics and Shazia Whitley Gynecology [facility] UROGYNECOLOGY [place], [place] 0375 (Wo rk) 03/11/2022 Office Visit Hematology and Ángel Fischer MD [facility] [place] [address] Oncology Alyssa Joseph[address] MEDICAL ONCOLOGY [place], [place] [phone] 03/11/2022 Infusion Hematology and Oncology 03/25/2022 Office Visit Hematology and Alyssa Joseph, Oncology [address] MEDICAL ONCOLOGY [place], [place] [address] (Wo rk) 03/25/2022 Infusion Hematology and Oncology 03/31/2022 Office Visit Hematology and Alan Livingston M D [facility] HEMATOLOGY/[place] [address] Oncology Nilam So, [facility] DR HEMATOLOGY/[place] [address] 04/08/2022 Office Visit Hematology and Ángel Fischer MD [facility] [place] [address] MEDICAL ONCOLOGY [place], [place] [phone] 04/08/2022 Infusion Hematology and Oncology documented as of this encounter Visit Diagnoses Not on filedocumented in this encounter Care Teams Psychiatric Nursing Aide Relationship Specialty Start Date End Date Berkley Madrigal MD PCP - General 04/13/10 02/15/18 AYLEEN Bray [address] [place], [place] [phone] documented as of this encounter
--- OUTSIDE RECORDS SUMMARY | 2022-02-11 01:09 | XMS_ITS | Encounter Summary ---
:1950 Author Organization [facility] [place] [address] Care Team Providers Name Role Phone Berkley Madrigal MD Primary Care Provider Encounter Details Date Type Department Care Team Description 11/14/2017 Procedure visit Urology at [facility] Urinary incontinence, overfl ow; [place] [address] Social History Tobacco Use Types Packs/Day [...] Sign Reading Time Taken Comments Blood Pressure 143/81 11/14/2017 1:04 PM EDT Pulse 94 11/14/2017 1:04 PM EDT Temperature 36.5 ??C (97.7 ??F) 11/14/2017 1:04 PM EDT Respiratory Rate - - Oxygen Saturation 100% 11/14/2017 1:04 PM EDT Inhaled Oxygen Concentration - - Weight - - Height - - Body Mass Index - - documented in this encounter Progress Notes Berkley Plata LPN - 11/14/2017 1:00 PM EDT Carol Keller IS A female 67 y.o. who is here for Urodynamics. HPI See Dr. Wahl's note Carol Wahl MD - 11/14/2017 1:00 PM EDT Reason for Visit:Carol Keller is a 67 y.o. female who is here for urodynamics and a discussion of treatment options. Carol has a history of Incontinence and prolapse. . This is .her First study. OBJECTIVE: Well looking female in no acute distress. Vital signs: see flow sheet PVR: 75 cc measured when the urodynamic catheter was inserted, immediately after the patient had voided. Dipstick Urinalysis: neg URODYNAMICS/Injection of Contrast: The patient was filled with cystograffin at a rate of 50ml/min. via a 10 Fr urodynamic catheter in the urethra with an abdominal catheter in the rectum and EMG pads placed on the perineum. 250 ml of high osmolar contrast was instilled. Cystogram: mGy:20.8; mGym2:0.0374; fluoro time 0.9 minutes Indication:incontinence Findings: Adequate views of the bladder at rest, during filling, at capacity and after emptying wereobtained with fluoroscopy. Imaging revealed a smooth bladder with the bladder neck closed at rest. She has a huge cystocele. Interpretation: large cystocele I supervised the above listed procedure and interpreted the findings. Chair Inspector imaging was saved. V/ALPP: The patient was asked to valsalva at increments of 50 ml starting at 150 ml. Leakage was seen at a volume of 150 ml and at a pressure of 74 cm of H2O. Complex Cystometrogram: The detrusor (bladder minus abdominal) pressure was stable to a volume of 250 ml. There was normal compliance. The DLPP was not measured as there was no DO. Filling sensation was normal. Bladder capacity: 250 ml Pressure Flow: The patient was given permission to void and did so with a detrusor (bladder minus abdominal) pressure of 6 cm H2O in the bathroom. The PVR after instrumented voiding was nil Pad EMG: EMG activity was unremarkable during filling and emptying. I was present for the pertinent portions of the urodynamics. I reviewed the results with the patientfollowing the procedure. I reviewed and edited the final report which is in the chart. IMPRESSION: No DO RAUDEL - ISD No obstruction despite large cystocele. PLAN: We discussed a pessary. She also has stress incontinence that is by definition ISD. She could have coaptite njections or a surgical procedure. A surgical procedure would need that she would need to stop her anticoagulation. She is more interested in a coaptite injection and we will proceed when she has her cystoscopy that isbooked in November. documented in this encounter Plan of Treatment Upcoming Encounters Date Type Specialty Care Team Description 02/11/2022 Scheduled View Only Hematology and Ángel Fischer Oncology [facility] ONCOLOGY [place], [place] [address] (Wo rk) 02/11/2022 TH Visit (TeleHealth) Hematology Ángel Kimbrough Oncology [facility] ONCOLOGY [place], [place] [address] (Wo rk) 02/11/2022 Infusion Hematology and Oncology 02/11/2022 Office Visit Hematology and Jazzy Armendariz R D Oncology [facility] HEMATOLOGY AND ONCOLOGY [place], [place] [address] (Wo rk) 02/22/2022 TH Visit (TeleHealth) Hematology and Yaquelin Celis E, [facility] HEMATOLOGY AND ONCOLOGY [place], [place] [address] (Wo rk) 02/25/2022 Office Visit Ángel Hill Oncology [facility] DR UMANA [place], [place] [address] (Wo rk) 02/25/2022 Infusion Hematology and Oncology 03/10/2022 Scheduled View Only Obstetrics and NurseJulian II, plaster tender 03/10/2022 Office Visit Obstetrics and Shazia Whitley, Gynecology [facility]PERATIONS ENGINE[facility]FORM[facility] UR[facility] [place], [place] [address] (Wo rk) 03/11/2022 Office Visit Ángel Hill MD [facility] [place] [address] Oncology Alyssa Joseph[address] [address] 03/11/2022 Infusion Hematology and Oncology 03/25/2022 Office Visit Hematology and Alyssa Joseph, Oncology [address] MEDICAL ONCOLOGY [place], [place] [phone] (Wo rk) 03/25/2022 Infusion Hematology and Oncology 03/31/2022 Office Visit Hematology and Alan Livingston M D [facility] DR HEMATOLOGY/[place] [address] [facility] [address] 04/08/2022 Office Visit Hematology and Ángel Fischer MD [facility] [place] [address] Oncology [address] MEDICAL ONCOLOGY [place], [place] [id number] 04/08/2022 Infusion Hematology and Oncology documented as of this encounter Visit Diagnoses Diagnosis Urinary incontinence, overflow Overflow incontinence Mixed incontinence Mixed incontinence urge and stress (male )(female) documented in this encounter Care Teams Remote Coders Relationship Specialty Start Date End Date Berkley Madrigal MD PCP - General 04/13/10 02/15/18 AYLEEN Katarina [address] [place], [place] [address] documented as of this encounter
--- OUTSIDE RECORDS SUMMARY | 2022-02-11 01:09 | XMS_ITS | Encounter Summary ---
:1950 Author Organization [facility] [place] [address] Care Team Providers Name Role Phone Mook Coffey DO Primary Care Provider Reason for Visit Reason Comments Follow-up Encounter Details Date Type Department Care Team Description 02/16/2018 Office Visit Obstetrics and Nakul Prater, Prolapse of vaginal Gynecology at [facility] [place] MD villaseñor [facility] [address], [place], [place] [phone] Social History Tobacco Use Types Packs/Day Years [...] Sign Reading Time Taken Comments Blood Pressure 126/67 02/16/2018 1:16 PM EDT Pulse 84 02/16/2018 1:16 PM EDT Temperature - - Respiratory Rate - - Oxygen Saturation 99% 02/16/2018 1:16 PM EDT Inhaled Oxygen Concentration - - Weight 81.8 kg (180 lb 4.8 oz) 02/16/2018 1:16 PM EDT Height 163.8 cm (5' 4.49) 02/16/2018 1:16 PM EDT Body Mass Index 30.48 02/16/2018 1:16 PM EDT documented in this encounter Progress Notes Nakul Prater MD - 02/16/2018 1:40 PM EDT VISIT TYPE: Pessary follow-up visit 02/18/2018 Carol Keller [id number] PESSARY TYPE: Ring with Support size 5 SUBJECTIVE: Ms. Keller is a 67 y.o. woman with stage 3 POP, FI and mixed UI returning for a pessaryfollow up check. First inserted 12/05. She denies: vaginal bleeding, abnormal discharge, discomfort related to the pessary. She likes it and would prefer to return for pessary check-ups, rather than self manage. OBJECTIVE: General: In no acute distress. External Genitalia: Within normal limits Urethra: Midline Cervix / Vagina: Appear normal, no erosions Bimanual: no masses Rectal: deferred. ASSESSMENT: Prolapse, managing well with pessary PLAN: ??? Pessary was removed, cleaned and replaced. ??? She will return in 4-6 months Nakul Prater MD documented in this encounter Plan of Treatment Upcoming Encounters Date Type Specialty Care Team Description 02/11/2022 Scheduled View Only Hematology Ángel Kimbrough Oncology [facility] ONCOLOGY [place], [place] [address] (Wo rk) 02/11/2022 TH Visit (TeleHealth) Hematology Ángel Kimbrough Oncology [facility] DR UMANA [place], [place] [address] (Wo rk) 02/11/2022 Infusion Hematology and Oncology 02/11/2022 Office Visit Hematology and Jazzy Armendariz R D Oncology [facility] HEMATOLOGY AND ONCOLOGY [place], [place] [address] (Wo rk) 02/22/2022 TH Visit (TeleHealth) Hematology and Yaquelin Celis Oncology E, [facility] HEMATOLOGY AND ONCOLOGY [place], [place] [address] (Wo rk) 02/25/2022 Office Visit Ángel Hill Oncology [facility] ONCOLOGY [place], [place] [address] (Wo rk) 02/25/2022 Infusion Hematology and Oncology 03/10/2022 Scheduled View Only Obstetrics and Nurse, Oboneal II, chief i dispatcher 03/10/2022 Office Visit Obstetrics and Shazia Whitley, Gynecology [facility] UROGYNECOLOGY [place], [place] [address] (Wo rk) 03/11/2022 Office Visit Hematology and Ángel Fischer MD [facility] [place] [address] [address] Joseph[address] MEDICAL ONCOLOGY [place], [place] [address] 03/11/2022 Infusion Hematology and Oncology 03/25/2022 Office Visit Hematology and Alyssa Joseph, Oncology [address] MEDICAL ONCOLOGY [place], [place] [phone] (Wo rk) 03/25/2022 Infusion Hematology and Oncology 03/31/2022 Office Visit Hematology and Alan Livingston M D [facility] DR HEMATOLOGY/[place] [address] Oncology [facility] [address] 04/08/2022 Office Visit Hematology and Ángel Fischer MD [facility] [place] [address] Oncology [address] Joseph[address] MEDICAL ONCOLOGY [place], [place] [phone] 04/08/2022 Infusion Hematology and Oncology documented as of this encounter Visit Diagnoses Diagnosis Prolapse of vaginal wall Unspecified prolapse of vaginal alberts documented in this encounter Care Teams Access Representative Relationship Specialty Start Date End Date Mook Coffey DO PCP - General Family Medicine 02/16/[address] [place] [phone] documented as of this encounter
--- OUTSIDE RECORDS SUMMARY | 2022-02-11 01:09 | XMS_ITS | Encounter Summary ---
:1950 Author Organization [facility] Address [address] [place] [address] Care Team Providers Name Role Phone Berkley Madrigal MD Primary Care Provider Encounter Details Date Type Department Care Team Description 03/01/2017 Laboratory Appointment Lab [facility] Type 2 diabetes [facility] mellitus without One [facility] Center Cesar galarza unspecified care home [place], [place] insulin [facility] [phone] Social History Tobacco Use Types Packs/Day Years [...] Fischer Oncology [facility] ONCOLOGY [place], [place] [address] (Wo rk) 02/11/2022 TH Visit (TeleHealth) Ángel Hill Oncology [facility] ONCOLOGY [place], [place] [address] (Wo rk) 02/11/2022 Infusion Hematology and Oncology 02/11/2022 Office Visit Hematology and Jazzy Armendariz R D Oncology [facility] HEMATOLOGY AND ONCOLOGY [place], [place] [address] (Wo rk) 02/22/2022 TH Visit (TeleHealth) Hematology and Yaquelin Celis Oncology E, [facility] HEMATOLOGY AND ONCOLOGY [place], [place] [address] (Wo rk) 02/25/2022 Office Visit Hematology Ángel Kimbrough Oncology [facility] ONCOLOGY [place], [place] [address] (Wo rk) 02/25/2022 Infusion Hematology and Oncology 03/10/2022 Scheduled View Only Obstetrics and Nurse, Julian COLEMAN, car wiper 03/10/2022 Office Visit Obstetrics and Gutierrez, Shazia Baer, Gynecology [facility] UROGYNECOLOGY [place], [place] [address] (Wo rk) 03/11/2022 Office Visit Hematology and Ángel Fischer MD [facility] [place] [address] [address] MEDICAL ONCOLOGY [place], [place] [address] 03/11/2022 Infusion Hematology and Oncology 03/25/2022 Office Visit Hematology and Alyssa Joseph Oncology [address] MEDICAL ONCOLOGY [place], [place] [address] (Wo rk) 03/25/2022 Infusion Hematology and Oncology 03/31/2022 Office Visit Hematology and Alan Livingston M D [facility] HEMATOLOGY/[place] [address] Oncology Nilam So, [facility] HEMATOLOGY/[place] [address] 04/08/2022 Office Visit Hematology and Ángel Fischer MD [facility] [place] [address] Oncology [address] MEDICAL ONCOLOGY [place], [place] [address] 04/08/2022 Infusion Hematology and Oncology documented as of this encounter Procedures Procedure Name Priority Date/Time Associated Diagnosis Comme nts U ALBUMIN/CRE RATIO Routine 03/01/2017 1:01 PM Type 2 diabetes Results for this EDT mellitus without procedure a re in complication, the results unspecified long section. term insulin use status LDL CHOLESTEROL, Routine 03/01/2017 1:01 PM Type 2 diabetes Re sults for this DIRECT EDT mellitus without procedure a re in complication, the results unspecified long section. term insulin use status HDL/CHOL PROFILE Routine 03/01/2017 1:01 PM Type 2 diabetes Re sults for this EDT mellitus without procedure a re in complication, the results unspecified long section. term insulin use status documented in this encounter Results U Albumin/Cre Ratio (03/01/2017 1:01 PM EDT) [facility] Method Time Signature Alb/Cr Ratio, Not Calculated 0 - 29 [facility] Random mcg/mg Cr [facility] Comment: Reference Ranges: <30 mcg/mg: Normal 30-300 mcg/mg: Moderately increased albu minuria.* >300 mcg/mg: Severely increased albuminu debby. * ACEI or ARB recommended if diabetic; s uggested if BP>130/80 without diabetes ACEI or ARB strongly recommended if di abetic; recommended if BP>130/80 without diabetes Two of three specimens collected within a 3 to 6 month period should be abnormal before considering a patient to have albuminuria. Transient causes: exercise, fever, infection, CHF, marked hyperglycemia or hypertension. Persistent albuminuria indicates CKD and is an independent risk factor for ASCVD. ADA Standards of Medical Care in Diabete s-2016; KDIGO: Kidney International Supplements (2012) 2, 357? 362 U Albumin Conc, Random <3.0 mg/L [facility] U Creatinine 38 mg/dL [facility] Specimen Anatomical Collection Method Collection Time Receive d Time (Source) Location / / Volume Laterality Urine specimen 03/01/2017 1:01 PM 017 1:07 (specimen) EDT PM EDT Resulting Agency Comment Spec In Lab Maribel Ware APRN URINE ORDERABLES Performing Organization Address City/State/ZIP Code Phon [place] [address] [facility] [address] LDL Cholesterol, Direct (03/01/2017 1:01 PM EDT) P athologist Signature LDL Chol 149 <=190 [facility] Direct mg/dL [facility] Specimen Anatomical Collection Method Collection Time Receive d Time (Source) Location / / Volume Laterality Blood specimen 03/01/2017 1:01 PM 017 1:07 (specimen) EDT PM EDT Resulting Agency Comment Spec In Lab Maribel Daniel Pjdonal AD[facility]KE CHEMISTRY ORDERABLES Performing Organization Address City/State/ZIP Code Phon e Number [address] (ABNORMAL) HDL/Cholesterol Profile (03/01/2017 1:01 PM EDT) Patholo gist Method Time Signature Chol, Total 240 (H) <=239 [place] mg/dL [facility] HDL 77 >=40 [facility] mg/dL [facility] Chol/HDL Ratio 3.1 ratio [facility] Chol/HDL See Note [place] Interpretation [facility] Comment: Lipid management should be guided by a p atient? s ASCVD risk, goals and preferences. ACC/AHA Guidelines recommend high intens ity statin if clinical ASCVD or LDL greater than or equal to 190 mg/dL. http://[employer]/SIS-KDI-Pppwywpnt Measure LDL if Total Cholesterol minus H DL Cholesterol is greater than 220 mg/dL. Adults aged 40-75 with LDL 70-189 mg/dL should have their 10 year ASCVD risk estimated with the ACC/AHA ASCVD risk es timator http://tools.acc.org/FXBWK-Gyho-Wapbjkdf r/ Statin should be discussed if risk great er than or equal to 7.5% in non-diabetics. With diabetes, moderate i ntensity statin is recommended if risk less than 7.5%, high intensity if risk g reater than or equal to 7.5%. Annual lipid monitoring on statins is no t necessary. Lifestyle modification is a critical com ponent of ASCVD risk reduction. Specimen Anatomical Collection Method Collection Time Receive d Time (Source) Location / / Volume Laterality Blood specimen 03/01/2017 1:01 PM 017 1:07 (specimen) EDT PM EDT Resulting Agency Comment Spec In Lab Maribel Daniel Pjdonal [facility] CHEMISTRY ORDERABLES Performing Organization Address City/State/ZIP Code Phon e Number [place] [phone] [facility] [address] documented in this encounter Visit Diagnoses Diagnosis Type 2 diabetes mellitus without complic ation, unspecified care home insulin use status documented in this encounter Care Teams Wire Stripping Machine Operator Relationship Specialty Start Date End Date Berkley Madrigal MD PCP - General 04/13/10 02/15/18 AYLEEN Katarina [address] [place] [address] documented as of this encounter
--- OUTSIDE RECORDS SUMMARY | 2022-02-11 01:09 | XMS_ITS | Encounter Summary ---
:1950 Author Organization [facility] Address [facility] [place] [address] Care Team Providers Name Role Phone Berkley Madrigal MD Primary Care Provider Encounter Details Date Type Department Care Team Description 09/27/2017 Orders Only Urology at [facility] Carol Wahl, [facility] Katar[place] [address] [facility] [phone] UROLOGY DEPT. [place], [place] [address] (Wo rk) Social History Tobacco [...] View Only Hematology and Ángel Fischer Oncology [facility] ONCOLOGY [place], [place] [address] (Shana hewitt) 02/11/2022 TH Visit (TeleHealth) Hematology Ángel Kimbrough Oncology [facility] ONCOLOGY [place], [place] [address] (Shana hewitt) 02/11/2022 Infusion Hematology and Oncology 02/11/2022 Office Visit Hematology and Jazzy Armendariz R D Oncology [facility] HEMATOLOGY AND ONCOLOGY [place], [place] [address] (Shana hewitt) 02/22/2022 TH Visit (TeleHealth) Hematology and Yaquelin Celis Oncology E, [facility] HEMATOLOGY AND ONCOLOGY [place], [place] [address] (Wo rk) 02/25/2022 Office Visit Hematology and Ángel Fischer Oncology [facility] ONCOLOGY [place], [place] [address] (Wo rk) 02/25/2022 Infusion Hematology and Oncology 03/10/2022 Scheduled View Only Obstetrics and Nurse, Julian COLEMAN, merchandise collector 03/10/2022 Office Visit Obstetrics and Gutierrez, Shazia Baer, Gynecology [facility] UROGYNECOLOGY [place], [place] [address] (Wo rk) 03/11/2022 Office Visit Hematology and Ángel Fischer MD [facility] [place] [address] Oncology Alyssa Joseph [address] [place] [address] 03/11/2022 Infusion Hematology and Oncology 03/25/2022 Office Visit Hematology and Alyssa Joseph Oncology [address] MEDICAL ONCOLOGY [place], [place] [address] (Wo rk) 03/25/2022 Infusion Hematology and Oncology 03/31/2022 Office Visit Hematology and Alan Livingston M D [facility] DR HEMATOLOGY/[place] [address] Oncology Nilam So [facility] HEMATOLOGY/[place] [address] 04/08/2022 Office Visit Hematology and Ángel Fischer MD [facility] [place] [address] Oncology [address] MEDICAL ONCOLOGY [place], [place] [address] 04/08/2022 Infusion Hematology and Oncology documented as of this encounter Visit Diagnoses Not on filedocumented in this encounter Care Teams Service Person Relationship Specialty Start Date End Date Berkley Madrigal MD PCP - General 04/13/10 02/15/18 AYLEEN Bray [address] [place], [place] [phone] documented as of this encounter
--- OUTSIDE RECORDS SUMMARY | 2022-02-11 01:09 | XMS_ITS | Encounter Summary ---
:1950 Author Organization [facility] [place] [address] Care Team Providers Name Role Phone Berkley Madrigal MD Primary Care Provider Reason for Referral Diagnostic Test (Routine) - Closed Specialty Diagnoses / Procedures Referred By Contact Refer red To Contact Radiology Diagnoses Overflow incontinence Carol Wahl [facility] Rad Ct Scan Procedures CT Urogram [facility] [place] [address] [place] [address] Referral ID Status Reason Start Date Expiration Date Visits V isits Requested Authorized [id number] Closed Specialty 11/16/2017 11/16/2018 1 1 Service Requested Reason for Visit Diagnostic Test (Routine) - Closed Specialty Diagnoses / Procedures Referred By Contact Refer red To Contact Radiology Diagnoses Overflow incontinence Carol Wahl [facility] Scan Procedures CT Urogram [facility] [place] [address] [place] [address] Referral ID Status Reason Start Date Expiration Date Visits V isits Requested Authorized [id number] Closed Specialty 11/16/2017 11/16/2018 1 1 Service Requested Encounter Details Date Type Department Care Team Description 11/28/[address] Scan at [facility] Ean Wahl [facility] Carol Morel MD incontinence [address] [place], [place] [address] UROLOGY DEPT. [phone] [place], [place] [address] Social History Tobacco Use Types [...] Sig Dispensed Refills Start Date End Date apixaban (Eliquis) 2.5 mg Take 2.5 mg by mouth 0 Tablet 2 times daily. glucosamine sulfate 500 Take 500 mg by mouth 0 mg Tablet daily. Green Tea Extract 500 mg Take 500 mg by mouth 0 Cap daily. melatonin 3 mg Tab Take 3 mg by mouth 0 nightly as needed. multivitamin capsule Take 1 capsule by 0 mouth daily. cholecalciferol, Vitamin Take 2,000 mg by 0 D3, 50 mcg (2,000 unit) mouth daily. Capsule glimepiride (AMARYL) 1 mg as needed. 0 03/01/2017 03/14/2018 Tablet omeprazole (PRILOSEC) 20 Take 20 mg by mouth 0 09/07/2021 mg Capsule, Delayed daily. Release(E.C.) imipramine (TOFRANIL) 10 Take 10 mg by mouth 0 11/04/2019 mg tablet every morning. documented as of this encounter Miscellaneous Notes Ancillary Services Notes - Sho Granger - 11/28/2017 4:34 PM EDT [facility] INTERVENTIONAL RADIOLOGY CT UROGRAM PROCEDURE NAME: CAROL STOCK ADDRESS: [address] [address] HOME PHONE: [phone] (home) MOBILE NUMBER: Telephone Information: REFERRING PROVIDER: Carol Wahl Allergies Allergen Reactions ??? Lipitor [Atorvastatin] Other (See Comments) Muscle cramps ??? Penicillins Rash PERTINENT PMH: Patient Active Problem List Diagnosis Code ??? [...] organ prolapse quantification stage 3 cystocele N81.10 MED'S: Prior to Admission medications Medication Sig Start Date End Date Taking? Authorizing Provider ciprofloxacin (CIPRO) 500 mg Tablet Take 1 tablet by mouth once for 1 dose. 11/28/17 11/28/17 Carol Wahl MD glimepiride (AMARYL) 1 mg Tablet as needed. 03/01/17 PROVIDER, HISTORICAL apixaban (ELIQUIS) 2.5 mg Tablet Take 2.5 mg by mouth 2 times daily. PROVIDER, HISTORICAL glucosamine sulfate 500 mg Tablet Take 500 mg by mouth daily. PROVIDER, HISTORICAL omeprazole (PRILOSEC) 20 mg Capsule, Delayed Release(E.C.) Take 20 mg by mouth daily. PROVIDER, HISTORICAL Green Tea Extract 500 mg Cap Take 500 mg by mouth daily. PROVIDER, HISTORICAL melatonin 3 mg Tab Take 3 mg by mouth nightly as needed. PROVIDER, HISTORICAL imipramine (TOFRANIL) 10 mg tablet 20 mg in the AM, 10 mg in the PM PROVIDER, HISTORICAL multivitamin capsule Take 1 capsule by mouth daily. PROVIDER, HISTORICAL Cholecalciferol, Vitamin D3, (VITAMIN D) 2,000 unit Cap Take 2,000 mg by mouth daily. PROVIDER, HISTORICAL PIV PLACED: (site) MED ORDERED: LASIX 10 MG IV GIVEN @: 16:45 INITIAL VITAL SIGNS: BP:151/69 POST VITAL SIGNS: BP: 153/86 DISCHARGE TIME: documented in this encounter Plan of Treatment Upcoming Encounters Date Type Specialty Care Team Description 02/11/2022 Scheduled View Only Hematology and Ángel Fischer, Oncology [facility] ONCOLOGY [place], [place] [address] (Wo rk) 02/11/2022 TH Visit (TeleHealth) Hematology Ángel Kimbrough Oncology [facility] ONCOLOGY [place], [place] [address] (Wo rk) 02/11/2022 Infusion Hematology and Oncology 02/11/2022 Office Visit Hematology and Jazzy Armendariz R D [facility] DRIVE HEMATOLOGY AND ONCOLOGY [place], [place] [address] (Wo rk) 02/22/2022 TH Visit (TeleHealth) Hematology and Yaquelin Celis Oncology E, [facility] HEMATOLOGY AND ONCOLOGY [place], [place] [address] (Wo rk) 02/25/2022 Office Visit Hematology Ángel Kimbrough Oncology [facility] ONCOLOGY [place], [place] [address] (Wo rk) 02/25/2022 Infusion Hematology and Oncology 03/10/2022 Scheduled View Only Obstetrics and Nurse, Julian COLEMAN, graduate school dean 03/10/2022 Office Visit Obstetrics and Shazia Whitley, Gynecology [facility] UROGYNECOLOGY [place], [place] [address] (Wo rk) 03/11/2022 Office Visit Ángel [place] MD [facility] [place] [address] Oncology Alyssa Joseph, [address] MEDICAL ONCOLOGY [place], [place] [id number] 03/11/2022 Infusion Hematology and Oncology 03/25/2022 Office Visit Hematology and Alyssa Joseph, Oncology [address] MEDICAL ONCOLOGY [place], [place] [id number] (Wo rk) 03/25/2022 Infusion Hematology and Oncology 03/31/2022 Office Visit Hematology and Alan Livingston M D [facility] DR HEMATOLOGY/[place] [address] Oncology Nilam So, ADENIKE [facility] HEMATOLOGY/[place] [address] 04/08/2022 Office Visit Hematology and Ángel Fischer MD [facility] [place] [address] Oncology Alyssa Joseph[address] [place] [address] 04/08/2022 Infusion Hematology and Oncology documented as of this encounter Procedures Procedure Name Priority Date/Time Associated Diagnosis Comme nts CT SCAN UROLOGY Routine 11/28/2017 5:04 PM Overflow incontinen ce Results for this EDT procedure are i n the results section. documented in this encounter Results CT Urogram (11/28/2017 5:04 PM EDT) Anatomical Region Laterality Modality Abdomen, Pelvis Computed Tomography Specimen (Source) Anatomical Location Collection Method / Collectio n Time Received Time / Laterality Volume Impressions 11/28/2017 6:32 PM EDT 1. ??No urinary stones and no hydroureter and no hydronephrosis on either side. 2. There is mild irregular wall thickeni ng and enhancement of the posterior wall of the urinary bladder. Correlate with u rinalysis and direct visualization, as clinically warranted. There is air in th e urinary bladder. Correlate with recent instrumentation. Rounded dense structure at the base of t he urinary bladder is noted, likely artificial. Correlate clinically. 3. Punctate renal parenchymal hypodensit y on the right side is too small to characterize. Narrative 11/28/2017 6:32 PM EDT EXAMINATION: CT UROGRAM CLINICAL HISTORY: micro hematuria TECHNIQUE: Helical CT of the abdomen and pelvis was performed prior to and following intravenous administration of 110 ml of Omnipaque 350. ??3D VR and MIP images were reformatted on a separate wo rkstation and reviewed as part of this study. COMPARISON: 07/21/2016 FINDINGS: Right kidney and ureter: No calculi, hyd ronephrosis or hydroureter. Punctate renal parenchymal hypodensity on the rig ht side is too small to characterize. No filling defect or abnormal wall thickeni ng in the collecting system. Left kidney and ureter: No calculi, hydr onephrosis or hydroureter. Renal parenchymal scarring. No focal lesions. No filling defect or abnormal wall thickening in the collecting system. Urinary bladder: There is mild irregular wall thickening and enhancement of the posterior wall of the urinary bladder. T here is air in the urinary bladder. Correlate with recent instrumentation. Rounded dense structure at the base of t he urinary bladder is noted, likely artificial. Correlate clinically. Lower chest: Minimal atelectasis at both bases. Liver: Normal. Bile ducts: Nondilated. Gallbladder: No calcified gallstones. No rmal caliber wall. Pancreas: Normal. Spleen: Normal. Adrenals: Normal. Vasculature: No aneurysm. Lymph Nodes: No enlarged lymph nodes. Bowel: Nondilated, no wall thickening. C olonic diverticulosis with no diverticulitis. Appendix is normal. Peritoneum and mesentery: No ascites, fr ee air, or loculated fluid collection. No mesenteric inflammation. Abdominal wall: Small umbilical hernia, contains fat only and not complicated. Reproductive organs: Status post hystere ctomy. Osseous structures: No suspicious lesion s. Procedure Note Mami Moore MD - 11/28/2017 EXAMINATION: CT UROGRAM CLINICAL HISTORY: micro hematuria TECHNIQUE: Helical CT of the abdomen and pelvis was performed prior to and following intravenous administration of 110 ml of Omnipaque 350. 3D VR and MIP images were reformatted on a separate wo rkstation and reviewed as part of this study. COMPARISON: 07/21/2016 FINDINGS: Right kidney and ureter: No calculi, hyd ronephrosis or hydroureter. Punctate renal parenchymal hypodensity on the rig ht side is too small to characterize. No filling defect or abnormal wall thickeni ng in the collecting system. Left kidney and ureter: No calculi, hydr onephrosis or hydroureter. Renal parenchymal scarring. No focal lesions. No filling defect or abnormal wall thickening in the collecting system. Urinary bladder: There is mild irregular wall thickening and enhancement of the posterior wall of the urinary bladder. T here is air in the urinary bladder. Correlate with recent instrumentation. Rounded dense structure at the base of t he urinary bladder is noted, likely artificial. Correlate clinically. Lower chest: Minimal atelectasis at both bases. Liver: Normal. Bile ducts: Nondilated. Gallbladder: No calcified gallstones. No rmal caliber wall. Pancreas: Normal. Spleen: Normal. Adrenals: Normal. Vasculature: No aneurysm. Lymph Nodes: No enlarged lymph nodes. Bowel: Nondilated, no wall thickening. C olonic diverticulosis with no diverticulitis. Appendix is normal. Peritoneum and mesentery: No ascites, fr ee air, or loculated fluid collection. No mesenteric inflammation. Abdominal wall: Small umbilical hernia, contains fat only and not complicated. Reproductive organs: Status post hystere ctomy. Osseous structures: No suspicious lesion s. IMPRESSION 1. No urinary stones and no hydroureter and no hydronephrosis on either side. 2. There is mild irregular wall thickeni ng and enhancement of the posterior wall of the urinary bladder. Correlate with u rinalysis and direct visualization, as clinically warranted. There is air in th e urinary bladder. Correlate with recent instrumentation. Rounded dense structure at the base of t he urinary bladder is noted, likely artificial. Correlate clinically. 3. Punctate renal parenchymal hypodensit y on the right side is too small to characterize. Carol Wahl MD IMG CT ORDERABLES documented in this encounter Visit Diagnoses Diagnosis Overflow incontinence documented in this encounter Administered Medications Inactive Administered Medications - up to 3 most recent administrations Medication Order MAR Action Action Date Dose Rate Site furosemide (LASIX) 10 mg/mL injection 1 dose, Starting on Mon11/28/17 at 1639, Until 11/19 at 1645, ALMAS SAHA: cabinet override furosemide (LASIX) injection 10 mg Given 11/28/2017 4:45 PM EDT 10 mg 10 mg, Intravenous, ONCE, 1 dose, On Mon11/28/17 at 1700, Routine iohexol (OMNIPAQUE) 350 mg/mL solution 0-200 Given 02/2018 4:34 PM EDT 110 mLs mL 0-200 mL, Intravenous, ONCE PRN, 1 dose, Starting on Mon11/28/17 at 1634, Until Mon11/28/17 at 1634, Per Protocol, Warning Vesicant/Irritant Medication , Radiology Contrast, Routine documented in this encounter Care Teams Producer Director Relationship Specialty Start Date End Date Berkley Madrigal MD PCP - General 04/13/10 02/15/18 AYLEEN Bray [address] [place] [address] documented as of this encounter
--- OUTSIDE RECORDS SUMMARY | 2022-02-11 01:09 | XMS_ITS | Encounter Summary ---
:1950 Author Organization [facility] [place] [address] Care Team Providers Name Role Phone Berkley Madrigal MD Primary Care Provider Encounter Details Date Type Department Care Team Description 11/14/2017 Office Visit [place]rology at [facility] Carol Wahl Mixed incontinence; [facility] MD Maria Teresa Urinary incontinence, [place] [address] UROLOGY DEPT. [phone] [place], [place] [address] (Wo rk) Social History Tobacco [...] as of this encounter Progress Notes Carol Wahl MD - 11/14/2017 2:20 PM EDT Urinary Incontinence Follow Up - Female Reason for Visit: This is a female 67 y.o. seen at the request of Berkley Madrigal MD with a recurred cystocele. Notes from Berkley Madrigal MD on file have been received and reviewed. HPI Pt underwent a vaginal hysterectomy and an attempted cystocele repair which was then converted to a ? Modified MMK performed in [place], [place] 38 years ago. She reports about [...] stroke Review of Systems: General Health: good [employer] - No headaches or loss of consciousness. [...] booked to see Dr. Prater in gynecology, [facility]. She will discuss a pessary with him. I will see her back for her cystoscopy which is being done for hematuria. If there is no significant issues with her bladder we will proceed with acoaptite injection at that time. I, Patricia Izquierdo, have performed the documentation for this encounter in the presence of and acting as a scribe for CAROL WAHL MD. I performed the above noted history and physical. I have reveiwed and edited the above note and agree with the content, ECollin Wahl MD' documented in this encounter Plan of Treatment Upcoming Encounters Date Type Specialty Care Team Description 02/11/2022 Scheduled View Only Hematology Ángel Kimbrough Oncology [facility] DR [place], [place] [address] (Wo rk) 02/11/2022 TH Visit (TeleHealth) Ángel [place] Oncology [facility] ONCOLOGY [place], [place] [address] (Wo rk) 02/11/2022 Infusion Hematology and Oncology 02/11/2022 Office Visit Hematology and Jazzy Armendariz R D Oncology [facility] HEMATOLOGY AND ONCOLOGY [place], [place] [address] (Wo rk) 02/22/2022 TH Visit (TeleHealth) Hematology and Yaquelin Celis Oncology E, [facility] DR HEMATOLOGY AND ONCOLOGY [place], [place] [address] (Wo rk) 02/25/2022 Office Visit Hematology and Ángel Fischer Oncology [facility] ONCOLOGY [place], [place] [address] (Wo rk) 02/25/2022 Infusion Hematology and Oncology 03/10/2022 Scheduled View Only Obstetrics and Nurse, Julian COLEMAN, game technician 03/10/2022 Office Visit Obstetrics and Shazia Whitley Gynecology [facility] UROGYNECOLOGY [place], [place] [address] (Wo rk) 03/11/2022 Office Visit Hematology and Ángel Fischer MD [facility] [place] [address] Oncology Alyssa Joseph [address] MEDICAL ONCOLOGY [place], [place] [address] 03/11/2022 Infusion Hematology and Oncology 03/25/2022 Office Visit Hematology and Alyssa Joseph Oncology [address] [place] [address] (Wo rk) 03/25/2022 Infusion Hematology and Oncology 03/31/2022 Office Visit Hematology and Alan Livingston M D [facility] DR HEMATOLOGY/[place] [address] [facility]cology [facility] [address] 04/08/2022 Office Visit Hematology and Ángel Fischer MD [facility] [place] [address] Oncology Alyssa Joseph, ADENIKE [address] [place] [address] MEDICAL ONCOLOGY [place], [place] [id number] 04/08/2022 Infusion Hematology and Oncology documented as of this encounter Visit Diagnoses Diagnosis Mixed incontinence Mixed incontinence urge and stress (male )(female) Urinary incontinence, overflow Overflow incontinence documented in this encounter Care Teams Section Laborer Relationship Specialty Start Date End Date Berkley Madrigal MD PCP - General 04/13/10 02/15/18 AYLEEN Bray [address] [place] [address] documented as of this encounter
--- OUTSIDE RECORDS SUMMARY | 2022-02-11 01:09 | XMS_ITS | Encounter Summary ---
:1950 Author Organization [facility] [place] [address] Care Team Providers Name Role Phone Berkley Madrigal MD Primary Care Provider Reason for Referral Surgical (Routine) - Closed Specialty Diagnoses / Procedures Referred By Contact Refer red To Contact Diagnoses Stress incontinence, female Carol Wahl MD Procedures Collagen Endoscopic Injection [facility] [place] [address] Referral ID Status Reason Start Date Expiration Date Visits V isits Requested Authorized [id number] Closed Consult, 01/23/2018 01/23/2019 1 1 Test & Treat Reason for Visit Surgical (Routine) - Closed Specialty Diagnoses / Procedures Referred By Contact Refer red To Contact Diagnoses Stress incontinence, female Carol Wahl MD Procedures Collagen Endoscopic Injection [facility] [place] [address] Referral ID Status Reason Start Date Expiration Date Visits V isits Requested Authorized [id number] Closed Consult, 01/23/2018 01/23/2019 1 1 Test & Treat Encounter Details Date Type Department Care Team Description 01/23/2018 Office Visit Urology at [facility] Carol Wahl Stress incontinence, female; [facility] MD Maria Teresa Urethral sphincter deficiency, intrinsic (ISD); Drive [facility] [address] UROLOGY DEPT. [phone] ALIYA POLLARD 0375 (Wo rk) Social History Tobacco Use [...] Sign Reading Time Taken Comments Blood Pressure 140/77 01/23/2018 9:11 AM EDT Pulse 93 01/23/2018 9:11 AM EDT Temperature 36.5 ??C (97.7 ??F) 01/23/2018 9:11 AM EDT Respiratory Rate - - Oxygen Saturation 98% 01/23/2018 9:11 AM EDT Inhaled Oxygen Concentration - - Weight - - Height - - Body Mass Index - - documented in this encounter Progress Notes Carol Wahl MD - 01/23/2018 8:40 AM EDT See my last note 11/28/17 and prior to that 11/14/17 - [...] to a ? Modified MMK performed in [place], [place] 38 years ago. 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 [...] booked to see Dr. Prater in gynecology, FPMRS. She will discuss a pessary with him. I will see her back for her cystoscopy which is being done for hematuria. If there is no significant issues with her bladder we will proceed with acoaptite injection at that time. She had a cysto for hematuria 11/28/17 and this was negative. She then had coaptite, 2 syringes. She thinks that with the pessary and the coaptite she is doing well. She was better initially and finds that she leaks more with increased time from the procedure. She is here for more coaptite. documented in this encounter Procedure Notes Carol Wahl MD - 01/23/2018 8:40 AM EDTAssociated Order(s): COLLAGEN ENDOSCOPIC INJECTION Pre-Procedure Diagnose(s): Stress incontinence, female; Urethral sphincter deficiency, intrinsic (ISD) Post-Procedure Diagnose(s): Urethral sphincter deficiency, intrinsic (ISD) The patient was placed in the lithotomy position and prepped and draped in the usual fashion. Lidocaine gel was instilled into the urethra. Using an injection scope cystoscopy was performed. The cysto was normal. Coapatite was injected to close the bladder neck. A total of 1 Syringe was used. The bladder neck was coapted at the close of the procedure. The scope was then removed. The patient toleratedthe procedure well. The patient was able to void. The PVR was checked and was minimal. The patient was given 1 cipro pre op. A return appointment was made for 8 weeks. The patient has been told to callif there are problems prior to that. documented in this encounter Plan of Treatment Upcoming Encounters Date Type Specialty Care Team Description 02/11/2022 Scheduled View Only Hematology Ángel Kimbrough Oncology [facility] DR [place] 0375 (Wo rk) 02/11/2022 TH Visit (TeleHealth) Ángel Hill Oncology MD [facility] DR UMANA [place], [place] 0[address] (Wo rk) 02/11/2022 Infusion Hematology and Oncology 02/11/2022 Office Visit Hematology and Jazzy Armendariz R D [facility] HEMATOLOGY AND ONCOLOGY [place], [place] 0375 (Wo rk) 02/22/2022 TH Visit (TeleHealth) Hematology and Yaquelin [place]is Oncology E, [facility] HEMATOLOGY AND ONCOLOGY [place], [place] 0[address] (Wo rk) 02/25/2022 Office Visit Hematology and Ángel Fischer Oncology [facility] ONCOLOGY [place], [place] 0375 (Wo rk) 02/25/2022 Infusion Hematology and Oncology 03/10/2022 Scheduled View Only Obstetrics and Nurse, Julian COLEMAN, slot key person 03/10/2022 Office Visit Obstetrics and Shazia Whitley Gynecology [facility] UROGYNECOLOGY [place], [place] 0375 (Wo rk) 03/11/2022 Office Visit Ángel Hill MD [facility] [place] [address] Oncology Alyssa Joseph, [address] MEDICAL ONCOLOGY [place], [place] [address] 03/11/2022 Infusion Hematology and Oncology 03/25/2022 Office Visit Hematology and Alyssa Joseph, Oncology [address] MEDICAL ONCOLOGY [place], [place] [address] (Wo rk) 03/25/2022 Infusion Hematology and Oncology 03/31/2022 Office Visit Hematology and Alan Livingston M D [facility] DR HEMATOLOGY/[place] [address] Oncology Nilam So, ADENIKE [facility] DR HEMATOLOGY/[place] [address] 04/08/2022 Office Visit Hematology and Ángel Fischer MD [facility] [place] [address] Oncology Alyssa Joseph, [address] [place] [address] 04/08/2022 Infusion Hematology and Oncology documented as of this encounter Procedures Procedure Name Priority Date/Time Associated Comments Diagnosis COLLAGEN ENDOSCOPIC Routine 01/29/2018 9:38 AM Stress Re sults for this INJECTION EDT incontinence, procedure are in female the results section. _URINALYSIS WITH Routine 01/23/2018 9:37 AM Stress Resul ts for this MICROSCOPIC EDT incontinence, procedure are in female the results section. URINE CULTURE Routine 01/23/2018 9:37 AM Stress Results for this EDT incontinence, procedure are in female the results section. documented in this encounter Results Collagen Endoscopic Injection (01/29/2018 9:38 AM EDT) Narrative Carol Wahl MD - 01/29/2018 9:38 AM EDT Carol Wahl MD ? 01/29/2018 ??9:38 AM The patient was placed in the lithotomy position and prepped and draped in the usual fashion. ??Lidocaine gel was instilled into the urethra. ??Using an ??injection scop e cystoscopy was performed. The cysto was normal. ??Coapatite was i njected to close the bladder neck. ??A total of 1 ?? Syringe ??was used. ??The bladder neck was coapted at the [...] Carol Wahl MD PROCEDURE/MINOR SURGICAL ORD ERABLES (ABNORMAL) Urine culture Clean Catch Urine (01/23/2018 9:37 AM EDT) [facility] Method Time Signature Urine Culture Greater than 100,000 cfu/ml mixed mucosal paola [facility] Note: Culture shows multiple bacterial species suggesting mu cosal BOBO contamination. If symptoms c ontinue to indicate urinary tract infection, submit [facility] a new specimen. [facility] Specimen (Source) Anatomical Collection Method Collection Time Re ceived Time Location / / Volume Laterality Urine specimen 01/23/2018 9:37 01/23/2018 obtained by clean AM EDT 11:31 AM E DT catch procedure (specimen) Resulting Agency Comment Spec In Lab Carol Wahl MD MICROBIOLOGY - GENERAL ORDER MELYSSA Performing Organization Address City/State/ZIP Code Phon e Number [place] [id number] [facility] [address] (ABNORMAL) _Urinalysis with microscopic (01/23/2018 9:37 AM EDT) [facility] Method Time Signature [facility]ucose UA Negative Negative [facility] mg/dL [facility] Protein UA 30 (A) Negative [facility] mg/dL [facility] Bilirubin UA Negative Negative [facility] mg/dL [facility] Comment: Clinical correlation required for positi ve Urine Bilirubin results as false positive may occur with some drugs and d rug related products. If a false positive is suspected a serum total bili reyes should be considered if clinically indicated. Urobilinogen UA Normal Normal mg/dL [facility] pH UA 5.0 5.0 - 8.0 [facility] Blood UA Large (A) Negative mg/dL [facility] Ketones UA Negative Negative mg/dL [facility] Nitrite UA Negative Negative [facility] Leukocytes UA Large (A) Negative [facility] LABORATORY Appearance UA Cloudy (A) Clear [facility] Spec [place] UA 1.019 1.002 - 1.030 [facility] Color UA Yellow Yellow [facility] RBC UA 32 (H) 0 - 4 /HPF [facility] WBC UA >182 (H) 0 - 5 /HPF [facility] Bacteria UA Occasional (A) None /HPF [facility] Squam Epith UA 4 <=4 /HPF [facility] Trans Epith UA <1 <=1 /HPF [facility] Hyaline Cast UA 5 (H) 0 - 2 /LPF [facility] Gran Cast UA 2 (H) <=0 /LPF [facility] Specimen Anatomical Collection Method Collection Time Receive d Time (Source) Location / / Volume Laterality Urine specimen 01/23/2018 9:37 AM 018 (specimen) EDT 11:19 AM EDT Resulting Agency Comment Spec In Lab Carol Wahl MD URINE ORDERABLES Performing Organization Address City/State/[place] [address] documented in this encounter Visit Diagnoses Diagnosis Stress incontinence, female Female stress incontinence Urethral sphincter deficiency, intrinsic (ISD) Intrinsic (urethral) sphincter deficienc y (ISD) Mixed incontinence Mixed incontinence urge and stress (male )(female) documented in this encounter Care Teams Director Of Corporate Strategy Relationship Specialty Start Date End Date Berkley Madrigal MD PCP - General 04/13/10 02/15/18 YALEEN D [address] [place] [address] documented as of this encounter
--- OUTSIDE RECORDS SUMMARY | 2022-02-11 01:09 | XMS_ITS | Encounter Summary ---
:1950 Author Organization [facility] Address [facility] [place] [address] Care Team Providers Name Role Phone Berkley Madrigal MD Primary Care Provider Reason for Visit Reason Onset Date Comments Labs Only 07/31/2017 critical WBC Encounter Details Date Type Department Care Team Description 07/31/2017 Telephone Hematology/Oncology at Maddie Richardson RN Labs Only (critical WBC) [address] [phone] Social History Tobacco Use Types Packs/Day [...] Telephone Encounter - Maddie Richardson RN - 07/31/2017 3:29 PM EDT WBC 107.2, Nilam So DIGITAL RECRUITER notified she will be seeing pt this wed. 08/02/17. documented in this encounter Plan of Treatment Upcoming Encounters Date Type Specialty Care Team Description 02/11/2022 Scheduled View Only Hematology and Ángel Fischer Oncology [facility] ONCOLOGY [place], [place] [address] (Shana hewitt) 02/11/2022 TH Visit (TeleHealth) Hematology Ángel Kimbrough Oncology [facility] DR UMANA [place], [place] [address] (Shana hewitt) 02/11/2022 Infusion Hematology and Oncology 02/11/2022 Office Visit Hematology and Jazzy Armendariz R D Oncology [facility] HEMATOLOGY AND ONCOLOGY [place], [place] 0375 (Wo rk) 02/22/2022 TH Visit (TeleHealth) Hematology and Yaquelin Celis Oncology E, [facility] HEMATOLOGY AND ONCOLOGY [place], [place] 0375 (Wo rk) 02/25/2022 Office Visit Hematology Ángel Kimbrough Oncology MD [facility] ONCOLOGY [place], [place] 0375 (Wo rk) 02/25/2022 Infusion Hematology and Oncology 03/10/2022 Scheduled View Only Obstetrics and Nurse, Julian COLEMAN, die cast supervisor 03/10/2022 Office Visit Obstetrics and Shazia Whitley, Gynecology [facility] UROGYNECOLOGY [place], [place] 0375 (Wo rk) 03/11/2022 Office Visit Hematology and Ángel Fischer MD [facility] [place] [address] Oncology Alyssa Joseph[address] MEDICAL ONCOLOGY [place], [place] [phone] 03/11/2022 Infusion Hematology and Oncology 03/25/2022 Office Visit Hematology and Alyssa Joseph Oncology [address] MEDICAL ONCOLOGY [place], [place] [phone] (Wo rk) 03/25/2022 Infusion Hematology and Oncology 03/31/2022 Office Visit Hematology and Alan Livingston M D [facility] HEMATOLOGY/[place] [address] [facility] [address] 04/08/2022 Office Visit Hematology and Ángel Fischer MD [facility] [place] [address] Oncology Alyssa Joseph, [address] MEDICAL ONCOLOGY [place], [place] [address] 04/08/2022 Infusion Hematology and Oncology documented as of this encounter Procedures Procedure Name Priority Date/Time Associated Diagnosis Comme nts WBC Routine 07/31/2017 Results for thi s procedure are in the resu lts section. documented in this encounter Results WBC (07/31/2017) P athologist Signature WBC 107.2 Specimen (Source) Anatomical Location Collection Method / Collectio n Time Received Time / Laterality Volume Blood specimen 07/31/2017 (specimen) Historical Provider HEMATOLOGY ORDERABLES documented in this encounter Visit Diagnoses Not on filedocumented in this encounter Care Teams Perinatal Breastfeeding Assistant Relationship Specialty Start Date End Date Berkley Madrigal MD PCP - General 04/13/10 02/15/18 AYLEEN Katarina [address] [place] [address] documented as of this encounter
--- OUTSIDE RECORDS SUMMARY | 2022-02-11 01:09 | XMS_ITS | Encounter Summary ---
:1950 Author Organization [facility] [address] Care Team Providers Name Role Phone Berkley Madrigal MD Primary Care Provider Encounter Details Date Type Department Care Team Description 09/21/2017 Patient Outreach Urology at [facility] JyotiCarol nolen [facility] H, [place] [address] Social History Tobacco Use Types Packs/Day [...] this encounter Miscellaneous Notes Telephone Encounter - Carol Hdez RN - 09/21/2017 11:59 AM EDT Urine culture collected 09/19/17 requires no treatment per Dr. [place]. documented in this encounter Plan of Treatment Upcoming Encounters Date Type Specialty Care Team Description 02/11/2022 Scheduled View Only Hematology and Ángel Fischer Oncology [facility] ONCOLOGY [place], [place] [address] (Shana hewitt) 02/11/2022 TH Visit (TeleHealth) Hematology and Ángel Fischer Oncology [facility] DR UMANA [place], [place] [address] (Shana hewitt) 02/11/2022 Infusion Hematology and Oncology 02/11/2022 Office Visit Hematology and Jazzy Armendariz R D Oncology [facility] HEMATOLOGY AND ONCOLOGY [place], [place] [address] (Shana hewitt) 02/22/2022 TH Visit (TeleHealth) Hematology and Yaquelin Celis Oncology E, [facility] HEMATOLOGY AND [place]OG[place], [place] [address] (Wo rk) 02/25/2022 Office Visit Hematology and Ángel Fischer Oncology [facility] ONCOLOGY [place], [place] 0375 (Wo rk) 02/25/2022 Infusion Hematology and Oncology 03/10/2022 Scheduled View Only Obstetrics and Nurse, Julian COLEMAN, margarine churn operator 03/10/2022 Office Visit Obstetrics and Shazia Whit[place], Gynecology [facility] UROGYNECOLOGY [place], [place] [address] (Wo rk) 03/11/2022 Office Visit Hematology and Ángel Fischer MD [facility] [place] [address] Oncology Alyssa Joseph[address] MEDICAL ONCOLOGY [place], [place] [phone] 03/11/2022 Infusion Hematology and Oncology 03/25/2022 Office Visit Hematology and Alyssa Joseph Oncology [address] MEDICAL ONCOLOGY [place], [place] [phone] (Wo rk) 03/25/2022 Infusion Hematology and Oncology 03/31/2022 Office Visit Hematology and Alan Livingston M D [facility] HEMATOLOGY/[place] [address] Oncology Nilam So, [facility] HEMATOLOGY/[place] [address] 04/08/2022 Office Visit Hematology and Ángel Fischer MD [facility] [place] [address] Oncology Alyssa Joseph, [employer] P[employer]ER [address] [place] [address] DR MEDICAL ONCOLOGY [place], [place] [address] 04/08/2022 Infusion Hematology and Oncology documented as of this encounter Visit Diagnoses Not on filedocumented in this encounter Care Teams Manager Technical Relationship Specialty Start Date End Date Berkley Madrigal MD PCP - General 04/13/10 02/15/18 AYLEEN Bray [address] [place], [place] [phone] documented as of this encounter
--- OUTSIDE RECORDS SUMMARY | 2022-02-11 01:09 | XMS_ITS | Encounter Summary ---
:1950 Author Organization [facility] Address [address] [place] [address] Care Team Providers Name Role Phone eBrkley Madrigal MD Primary Care Provider Reason for Visit Reason Comments Follow-up Skin Check Encounter Details Date Type Department Care Team Description 08/21/2017 [facility] History of SCC (squamous cell carcinoma) of skin; Radha ALEGRIA Seborrheic keratosis [address] Jori B DERMATOLOGY [place], [place] [id number] [phone] Social History Tobacco Use Types Packs/Day Years [...] encounter Progress Notes Justino Cardenas MD - 08/21/2017 3:45 PM EDT Problem: 1. Right left forehead lesion 2. History of SCCA right upper cutaneous lip 02/2013 Anahi follows up today concerned about lesion of left foot. Is been there for many many months and slowly growing in size. Physical examination reveals a seborrheic keratosis about 4 x 6 mm in size. Is light storey. Is not inflamed not indurated and certainly not symptomatic. Assessment plan: Seborrheic keratosis left forehead 1. Reassured patient about benign nature of this 2. Discussed the option of L into for removal which patient declines 3. Reassured patient about lack of malignant potential return to clinic as needed. Cc: Berkley Monroe MD documented in this encounter Plan of Treatment Upcoming Encounters Date Type Specialty Care Team Description 02/11/2022 Scheduled View Only Hematology and Ángel Fischer, Oncology [facility] ONCOLOGY [place], [place] [address] (Wo rk) 02/11/2022 TH Visit (TeleHealth) Hematology Ángel Kimbrough Oncology [facility] ONCOLOGY [place], [place] [address] (Wo rk) 02/11/2022 Infusion Hematology and Oncology 02/11/2022 Office Visit Hematology and Jazzy Armendariz, R Katarina Oncology [facility] DR[address] HEMATOLOGY AND ONCOLOGY [place], [place] 0[address] (Wo rk) 02/22/2022 TH Visit (TeleHealth) Hematology and Yaquelin Celis Oncology [facility] HEMATOLOGY AND ONCOLOGY [place], [place] [address] (Wo rk) 02/25/2022 Office Visit Hematology Ángel Kimbrough Oncology [facility] ONCOLOGY [place], [place] [address] (Wo rk) 02/25/2022 Infusion Hematology and Oncology 03/10/2022 Scheduled View Only Obstetrics and Nurse, Julian COLEMAN, nurse transitional 03/10/2022 Office Visit Obstetrics and Shazia Whit[place], Gynecology [facility] UROGYNECOLOGY [place], [place] [address] (Wo rk) 03/11/2022 Office Visit Hematology Ángel Kimbrough MD [facility] [place] [address] Oncology Alyssa Joseph, [address] [place] [address] 03/11/2022 Infusion Hematology and Oncology 03/25/2022 Office Visit Hematology and Alyssa Joseph, Oncology [address] MEDICAL ONCOLOGY [place], [place] [phone] (Wo rk) 03/25/2022 Infusion Hematology and Oncology 03/31/2022 Office Visit Hematology and Alan Livingston M D [facility] DR HEMATOLOGY/[place] [address] [facility] [facility] [address] 04/08/2022 Office Visit Hematology and Ángel Fischer MD [facility] [place] [address] Oncology Alyssa Joseph, [address] MEDICAL ONCOLOGY [place], [place] [phone] 04/08/2022 Infusion Hematology and Oncology documented as of this encounter Visit Diagnoses Diagnosis History of SCC (squamous cell carcinoma) of skin Personal history of other malignant neop lasm of skin Seborrheic keratosis Other seborrheic keratosis documented in this encounter Care Teams As400 Operator Relationship Specialty Start Date End Date Berkley Madrigal MD PCP - General 04/13/10 02/15/18 JORI Bray [address] [place], [place] [phone] documented as of this encounter
--- OUTSIDE RECORDS SUMMARY | 2022-02-11 01:09 | XMS_ITS | Encounter Summary ---
:1950 Author Organization [facility] [place] [address] Care Team Providers Name Role Phone Berkley Madrigal MD Primary Care Provider Reason for Visit Reason Comments Vaginal Prolapse Establish Care Uterine Prolapse Encounter Details Date Type Department Care Team Description 12/05/2017 Office Visit Obstetrics and Nakul Prater, Prolapse of vaginal Gynecology at [facility] villaseñor (Primary Dx) [facility] [place] [id number] [phone] Social History Tobacco Use Types Packs/Day Years [...] Sign Reading Time Taken Comments Blood Pressure 148/74 12/05/2017 12:39 PM EDT Pulse 69 12/05/2017 12:39 PM EDT Temperature - - Respiratory Rate 18 12/05/2017 12:39 PM EDT Oxygen Saturation 99% 12/05/2017 12:39 PM EDT Inhaled Oxygen Concentration - - Weight 82.1 kg (181 lb) 12/05/2017 12:39 PM EDT Height 163.8 cm (5' 4.5) 12/05/2017 12:39 PM EDT Body Mass Index 30.59 12/05/2017 12:39 PM EDT documented in this encounter Progress Notes Nakul Prater MD - 12/05/2017 1:00 PM EDT Female Pelvic Medicine and Reconstructive Surgery @ [facility] Patient Name: Carol Keller Patient Primary Care Provider: Berkley Madrigal MD Patient Active Problem List Diagnosis Code ??? [...] ??? 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 Pessary History of Present Illness: Ms. Keller is a 67 y.o. old woman, seen at the kind request of Dr. Carol Wahl. She presents for evaluation and assessment of prolapse of 1 year's duration. She underwent a vaginalhysterectomy and an attempted cystocele repair which was then converted to a ? Modified MMK performed in [place], [place] 38 years ago. A year ago her prolapse returned - able to see it. Needs to push bladder back inside in order to void. Notes her incontinence has become worse over the last year. She is not sexually active and does not plan to be in the future. ?? Saw Dr. Wahl for this and for UI - is s/p urethral bulking last week. Still with RAUDEL. Also reports urgency and UUI. Noticed FI over the last month with loose stool and small nuggets with firm stool. Urinary tract history Patient denies history of recurrent urinary tract infection. Patient denies history of pyelonephritis. Patient denies history of urinary tract abnormality. Patient denies history of nephrolithiasis. Patient reports microscopic hematuria - seen by Dr. Wahl Bladder irritants: Fluid intake: mostly water Caffeine intake: Minimal Bladder Function Urinary incontinence: yes No. episodes: Several daily Pad use (per day) and type: Poise #6 x3/day Daytime frequency of voiding: as often as every 10 minute(s). Can go as long as 1 hour. Nocturia: X3-4/night Previous urinary incontinence treatment (Medical/Behavioral/Surgical): Coaptite Storage symptoms x Urinary frequency Nocturia x Stress urinary incontinence - leakage with exertion, cough/sneeze x Urge urinary incontinence - leakage preceded immediately by urge to void Noctural enuresis - NOT IN ASSOCIATION WITH URGE Continuous urinary leakage Other: (e,g. giggle, intercourse-related) Bladder sensation Normal - aware of filling and increased sensation up to desire to void x Increased - feels an early and persistent need to void Reduced - aware of filling but NOT definite desire to void Absent - NO sensation of filling or need to void Non-specific - No specific bladder symptoms during filling or void Voiding symptoms None Slow stream Spraying Intermittent stream - stop/start on > 1 occasion during void Straining - muscular effort to initiate, maintain OR improve stream Terminal dribble - prolonged final part of void x Feeling of incomplete emptying Pelvic Organ Prolapse (POP) Any personally see or feel a vaginal bulge? yes What precipitates prolapse or symptoms of prolapse? Straining Previous treatment for POP (physical therapy, pessary, surgery)?: ?MMK Bowel Function Fecal incontinence (yes/no): yes Number of fecal incontinent episodes (day/week): Several in last month Defecatory Dysfunction: Symptom Presence Symptom Presence NONE Incomplete Emptying Straining Infrequent stools (<3 week) Splinting Abdominal discomfort Loose stools x Defecatory urgency x Hard stools Other Sexual Function Active?: No - for 35 years Desire to retain sexual function? no Past Medical History: Diagnosis Date ??? Cancer ??? Cardiac disease ??? CLL (chronic lymphocytic leukemia) ??? Diabetes mellitus dx ~2010 ??? Diabetes mellitus ??? Disease of blood and blood forming organ ~2008 leukemia CLL ??? GERD (gastroesophageal reflux disease) ??? 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 SVT (supraventricular tachycardia) ??? Unspecified diseases of blood and blood-forming organs ??? Verruca vulgaris 03/08/2013 Past Surgical History: Procedure Laterality Date ??? CATARACT REMOVAL OD 11/15/16 ??? FOCAL LASER TREATMENT 08/14/2012 OD for ret tear ??? LASER SURGERY 08/14/2012 FOCAL,OD ??? PRO VITRECTOMY PARS PLANA REMOVE INT MEMB RETINA Right 07/11/2016 VITRECTOMY, W/ MEMBRANE STRIPPING, INTRAOCULAR TAMPONADE (WRVU 16.33) performed by Pavan Coffey MD at [facility] MAIN OR ??? PRO VITRECTOMY PARS PLANA REMOVE INT MEMB RETINA Left 01/05/2017 VITRECTOMY, W/ MEMBRANE STRIPPING, INTRAOCULAR TAMPONADE (WRVU 16.33) performed by Venkata Page MD at [facility] MAIN OR ??? RETINAL DETACHMENT SURGERY ??? RETINOPATHY SURGERY Right 07/11/2016 PPV/MP with Intraocular Tamponade OD per CBC for [place] ??? VITRECTOMY, W/ MEMBRANE STRIPPING, INTRAOCULAR TAMPONADE Right 01/05/2017 PPV/MP for ERM per NNB Obstetric History No data available Outpatient Prescriptions Marked as Taking for the 12/05/17 encounter (Office Visit) with Nakul Prater MD Medication Sig Dispense Refill ??? glimepiride (AMARYL) 1 mg Tablet as needed. ??? apixaban (ELIQUIS) 2.5 mg Tablet Take 2.5 mg by mouth 2 times daily. ??? glucosamine sulfate 500 mg Tablet Take 500 mg by mouth daily. ??? omeprazole (PRILOSEC) 20 mg Capsule, Delayed Release(E.C.) Take 20 mg by mouth daily. ??? Green Tea Extract 500 mg Cap Take 500 mg by mouth daily. ??? melatonin 3 mg Tab Take 3 mg by mouth nightly as needed. ??? imipramine (TOFRANIL) 10 mg tablet 20 mg in the AM, 10 mg in the PM ??? multivitamin capsule Take 1 capsule by mouth daily. ??? Cholecalciferol, Vitamin D3, (VITAMIN D) 2,000 unit Cap Take 2,000 mg by mouth daily. Allergies Allergen Reactions ??? Lipitor [Atorvastatin] Other (See Comments) Muscle cramps ??? Penicillins Rash Social History Social History ??? Marital status: Spouse name: N/A ??? Number of children: N/A ??? Years of education: N/A Occupational History ??? Not on file. Social History Main Topics ??? Smoking status: Never Smoker ??? Smokeless tobacco: Never Used ??? Alcohol use Yes Comment: Very rare ??? Drug use: No ??? Sexual activity: Not on file Other Topics Concern ??? Not on file Social History Narrative Merged History Encounter Family History Problem Relation Age of Onset ??? Strabismus Brother ??? Thyroid Disease Mother ??? Cataracts Mother ??? Macular Degeneration Mother ??? Diabetes Mother ??? Hypertension Mother ??? Glaucoma Father borderline glaucoma ??? Cancer Father lung ??? Diabetes Maternal Grandmother ??? Diabetes Paternal Grandmother ??? Amblyopia Neg Hx ??? Retinal Detachment Neg Hx ??? Heart Disease Neg Hx Family history: denies history of gynecologic cancer ROS: Review of all other systems negative except for those mentioned above or indicated below: System Symptom Presence Constitutional Weight Loss Weight gain Eyes History of glaucoma ENT/Mouth Mouth sores/Dry mouth Cardiovascular Chest pain Leg swelling Respiratory Wheezing SOB GI Nausea/vomiting Abdominal pain Skin/Breast Breast masses Rash/ulcer Musculoskeletal Muscle weakness Trouble Walking Neurological Dizziness/falling Numbness Psychiatric Depression Anxiety Endocrine Abnormal thirst Hot flashes Hematologic Frequent bruising History of blood transfusions Blood clots (DVT / PE) CVA Prior problems w/ anesthesia Outside medical records reviewed: yes Data reviewed (images/urodynamic studies): To further delineate patient's urinary symptoms, a urine dip test and postvoid residual via bladder scanner were obtained. Results for orders placed or performed in visit on 12/05/17 Bladder Scanner Result Value Ref Range Bladder Scan (mL) 26 mL OBJECTIVE: BP 148/74 Pulse 69 Resp 18 Ht 163.8 cm (5' 4.5) Wt 82.1 kg (181 lb) SpO2 99% BMI 30.59 kg/m2 General: normal appearing female, pleasant mood, normal speech Skin: skin of abdomen/pelvis normal appearance Respiratory: clear to auscultation bilaterally Neuro: no paraspinous tenderness; saddle sensory function (S2-4) intact in the pelvic area to touch Cardiac: regular rate and rhythm, no appreciated murmurs Gastrointestinal: no palpable masses/organomegaly, soft/nontender, no appreciable hernia Musculoskeletal: levator ani tone (0-5): 1, levator ani contraction (0-5): 3, no levator tenderness;lower extremity motor 5/5 bilaterally Pelvic: Cough stress test (empty supine): negative External Genitalia: Vulva, [place]'s and Bartholin glands normal, urethra without tenderness or mass Vagina: See POPQ Atrophic epithelium (yes/no)?: yes Discharge?: no Cervix: absent Bimanual (uterus/adnexa): normal Rectovaginal: Enterocele: no Rectocele: no Anal sphincter: Resting tone deferred POP Q Measurements: Aa 0 Ba +5 C +5 GH 5, 7 PB 1, 2 TVL 8 Ap -1 Bp +5 D n/a Impression: Ms. Keller is a .67 y.o. woman with stage 3 POP, FI and mixed UI I reviewed the anatomy and physiology of PFDs. We discussed options for management including: For POP, we discussed observation, pelvic floor exercises (supervised or unsupervised), pessary and/or surgery. Since she is at high risk of juan carlos-operative morbidity if off anti-coagulants, agree with plan totry pessary. A Ring with Support size 5 pessary was placed without difficulty. The patient is comfortable with the pessary in situ. The patient was instructed to ambulate for several minutes, and to try void without expelling the pessary. She was counseled on proper techniques for pessary insertion and removal today. She would prefer to return for pessary check-ups, rather than self manage. Recommendations: Based on the patients expressed goals for management I have recommended the following: ?? Return for pessary check in 2-3 months ?? Loperamide 2mg PO once daily for FI ?? Follow-up with Dr. Wahl regarding UI Nakul Prater MD Division of Female Pelvic Medicine/Reconstructive Surgery CC: MD Carol Gray documented in this encounter Plan of Treatment Upcoming Encounters Date Type Specialty Care Team Description 02/11/2022 Scheduled View Only Hematology Ángel Kimbrough Oncology [facility] [address] [place] [address] (Shana hewitt) 02/11/2022 TH Visit (TeleHealth) Ángel Hill Oncology [facility] [address] [place] [address] (Shana hewitt) 02/11/2022 Infusion Hematology and Oncology 02/11/2022 Office Visit Hematology and Jazzy Armendariz R D [facility] DRIVE HEMATOLOGY AND ONCOLOGY [place], [place] [address] (Wo rk) 02/22/2022 TH Visit (TeleHealth) Hematology and Yaquelin Celis Oncology E, [facility] HEMATOLOGY AND ONCOLOGY [place], [place] [address] (Wo rk) 02/25/2022 Office Visit Hematology and Ángel Fischer Oncology [facility] ONCOLOGY [place], [place] [address] (Wo rk) 02/25/2022 Infusion Hematology and Oncology 03/10/2022 Scheduled View Only Obstetrics and Nurse, Julian COLEMAN, jig builder helper 03/10/2022 Office Visit Obstetrics and Shazia Whitley Gynecology [facility] UROGYNECOLOGY [place], [place] [address] (Wo rk) 03/11/2022 Office Visit Hematology and Ángel Fischer MD [facility] [place] [address] Oncology Alyssa Joseph, [address] MEDICAL ONCOLOGY [place], [place] [id number] 03/11/2022 Infusion Hematology and Oncology 03/25/2022 Office Visit Hematology and Alyssa Joseph, Oncology [address] MEDICAL ONCOLOGY [place], [place] [id number] (Wo rk) 03/25/2022 Infusion Hematology and Oncology 03/31/2022 Office Visit Hematology and Alan Livingston M D [facility] HEMATOLOGY/[place] [address] Oncology Nilam So, APPLICATION DEVELOPER MANAGER [facility] DR HEMATOLOGY/[place] [address] 04/08/2022 Office Visit Hematology and Ángel Fischer MD [facility] [place] [address] Oncology Alyssa Joseph, [address] MEDICAL ONCOLOGY [place], [place] [id number] 04/08/2022 Infusion Hematology and Oncology Scheduled Orders Name Type Priority Associated Diagnoses Order S chedule Pessary Insertion OB Routine Prolapse of vaginal wal l Ordered: 12/05/2017 documented as of this encounter Procedures Procedure Name Priority Date/Time Associated Diagnosis Comme nts BLADDER SCANNER Routine 12/05/2017 Prolapse of vaginal wall Results for this procedure are i n the results section . documented in this encounter Results Bladder Scanner (12/05/2017) P athologist Signature Bladder Scan 26 mL (mL) Nakul Prater MD UROLOGY ORDERABLES documented in this encounter Visit Diagnoses Diagnosis Prolapse of vaginal wall - Primary Unspecified prolapse of vaginal alberts documented in this encounter Care Teams Network Technician Relationship Specialty Start Date End Date Berkley Madrigal MD PCP - General 04/13/10 02/15/18 AYLEEN Bray [address] [place], [place] [phone] documented as of this encounter
--- OUTSIDE RECORDS SUMMARY | 2022-02-11 01:09 | XMS_ITS | Encounter Summary ---
:1950 Author Organization [place] [address] Care Team Providers Name Role Phone Berkley Madrigal MD Primary Care Provider Encounter Details Date Type Department Care Team Description 12/06/2017 Office Visit Hematology/Oncology Nilam So, Chron ic lymphocytic at [facility] HAZARD WASTE HANDLER leukemia [address] [place] [id number] HEMATOLOGY/ONCOLOG [phone] Y DEPT. [place], [place] [address] Social History Tobacco Use Types [...] Sign Reading Time Taken Comments Blood Pressure 120/60 12/06/2017 11:42 AM EDT Pulse 92 12/06/2017 11:42 AM EDT Temperature 36.6 ??C (97.9 ??F) 12/06/2017 11:42 AM EDT Respiratory Rate 16 12/06/2017 11:42 AM EDT Oxygen Saturation 99% 12/06/2017 11:42 AM EDT Inhaled Oxygen Concentration - - Weight 82.1 kg (181 lb) 12/06/2017 11:42 AM EDT Height - - Body Mass Index 30.59 12/05/2017 12:39 PM EDT documented in this encounter Progress Notes Nilam oS, HAZARD WASTE HANDLER - 12/06/2017 11:30 AM EDT Subjective: Patient ID: Carol Keller is a 67 y.o. female here for f/u of CLL [...] Anahi is doing well. She had a pessary fitted yesterday - she is very happy with this. Urinary incont already improved greatly! Her energy has bene good - she has been quilting a tonne. She denies any recent infections. No new lumps or bumps. No drenching night sweats. She did have a recent pelvic CT which showed no adenopathy. Review of Systems Objective: Physical Exam Constitutional: She is oriented to person, place, and time. She appears well- developed and well-nourished. No distress. HENT: Mouth/Throat: Oropharynx is clear and moist. No oropharyngeal exudate. Eyes: Conjunctivae are normal. Pupils are equal, round, and reactive to light. Neck: Normal range of motion. Neck supple. [...] No inguinal and no supraclavicular adenopathy present. Neurological: She is alert and oriented to person, place, and time. Skin: Skin is warm and dry. Psychiatric: She has a normal mood and affect. WBC - 116 Hg - 13.3 Plts - 173 ANC- 3.51 BP 120/60 (Patient Position: Sitting) Pulse 92 Temp 36.6 ??C (97.9 ??F) (Oral) Resp 16 Wt 82.1 kg (181 lb) SpO2 99% BMI 30.59 kg/m2 Assessment and Plan: 1. Assessment: CLL. ALC continues to slowly climb- Other counts remain stable. No worrisome or symptomatic adenoapthy. No B symptoms, ALC doubling time is still many years , No recurrent infections, nosigns of AIHA or ITP. No concern for transformation. No indication for treatment at this time. Reviewed CLL and indications for therapy, Also reviewed inherent increase risk for infection. Influenza = UTD Pneumococcal - UTD Plan: We will continue to monitor in hematology clinic. Reviewed CLL and indications for treatment. Carol will return to hematology in 3-4months. she will call if there are any problems before then. documented in this encounter Plan of Treatment Upcoming Encounters Date Type Specialty Care Team Description 02/11/2022 Scheduled View Only Hematology and Ángel Fischer Oncology [facility] DR UMANA [place], [place] [address] (Shana hewitt) 02/11/2022 TH Visit (TeleHealth) Ángel Hill Oncology [facility] DR [place], [place] [address] (Wo rk) 02/11/2022 Infusion Hematology and Oncology 02/11/2022 Office Visit Hematology and Jazzy Armendariz, R Katarina Oncology [facility] HEMATOLOGY AND ONCOLOGY [place], [place] [address] (Wo rk) 02/22/2022 TH Visit (TeleHealth) Hematology and Yaquelin Celis Oncology E, [facility] HEMATOLOGY AND ONCOLOGY [place], [place] [address] (Wo rk) 02/25/2022 Office Visit Ángel Hill Oncology [facility] DR [place], [place] [address] (Wo rk) 02/25/2022 Infusion Hematology and Oncology 03/10/2022 Scheduled View Only Obstetrics and Nurse, Julian COLEMAN, data capture specialist 03/10/2022 Office Visit Obstetrics and Gutierrez, Shazia Baer, Gynecology [facility] UROGYNECOLOGY [place], [place] [address] (Wo rk) 03/11/2022 Office Visit Hematology and Ángel Fischer MD [facility] [place] [address] Oncology Alyssa Joseph[address] MEDICAL ONCOLOGY [place], [place] [phone] 03/11/2022 Infusion Hematology and Oncology 03/25/2022 Office Visit Hematology and Alyssa Joseph, Oncology [address] MEDICAL ONCOLOGY [place], [place] [phone] (Wo rk) 03/25/2022 Infusion Hematology and Oncology 03/31/2022 Office Visit Hematology and Alan Livingston M D [facility] HEMATOLOGY/[place] [address] [facility] [address] 04/08/2022 Office Visit Hematology and Ángel Fischer MD [facility] [place] [address] On[address] MEDICAL ONCOLOGY [place], [place] [phone] 04/08/2022 Infusion Hematology and Oncology documented as of this encounter Procedures Procedure Name Priority Date/Time Associated Diagnosis Comme nts LAB SCAN 11/27/2017 12:00 AM Results for this EDT procedure are i n the results section . documented in this encounter Results SCAN DOC: LAB (11/27/2017 12:00 AM EDT) Narrative 11/27/2017 12:00 AM EDT This result has an attachment that is no t available. Ordered by an unspecified provider. Scanning Provider MEDIA MGR SCAN EXT ORDR/RSLT documented in this encounter Visit Diagnoses Diagnosis Chronic lymphocytic leukemia Chronic lymphoid leukemia, without menti on of having achieved remission documented in this encounter Care Teams Dye Maker Relationship Specialty Start Date End Date Berkley Madrigal MD PCP - General 04/13/10 02/15/18 AYLEEN D [address] [place] [address] documented as of this encounter
--- OUTSIDE RECORDS SUMMARY | 2022-02-11 01:09 | XMS_ITS | Encounter Summary ---
:1950 Author Organization [facility] [place] [address] Care Team Providers Name Role Phone Berkley Madrigal MD Primary Care Provider Reason for Referral Consultation (Routine) - Closed Specialty Diagnoses / Procedures Referred By Contact Refer red To Contact Obstetrics and Diagnoses Pelvic organ prolapse quantification stage 3 cystocele Carol Wahl [facility] [place] [employer] Farmer 5l Gynecology MD Maria Teresa [facility] Maddie [place], [place] UROLOGY [place]PT. 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 [address] Phone: Fax: Referral ID Status Reason Start Date Expiration Date Visits Requ ested Visits Authorized [id number] Closed 07/18/2017 07/18/2018 1 1 Encounter Details Date Type Department Care Team Description 09/19/2017 Office Visit Urology at [facility] Carol Wahl Pelvic organ prolapse quanti fication stage 3 cystocele; [facility] MD Maria Teresa Other symptoms and signs involving the g enitourinary system; Drive [facility] [place] [address] UROLOGY DEPT. [phone] [place], [place] [address] Social History Tobacco Use Types [...] Sign Reading Time Taken Comments Blood Pressure 140/83 09/19/2017 12:54 PM EDT Pulse 98 09/19/2017 12:54 PM EDT Temperature - - Respiratory Rate 18 09/19/2017 12:54 PM EDT Oxygen Saturation - - Inhaled Oxygen Concentration - - Weight 81.6 kg (180 lb) 09/19/2017 12:54 PM EDT Height 163.8 cm (5' 4.5) 09/19/2017 12:54 PM EDT Body Mass Index 30.42 09/19/2017 12:54 PM EDT documented in this encounter Progress Notes Carol Wahl MD - 09/19/2017 1:00 PM EDT Urinary Incontinence New Patient Workup - Female Reason for Visit: This is a female 67 y.o. seen at the request of Berkley Madrigal MD with a recurred cystocele. Notes from Berkley Madrigal MD on file have been received and reviewed. HPI Pt underwent a vaginal hysterectomy and an attempted cystocele repair which was then converted to a ? Modified MMK performed in [place], [place] 38 years ago. She reports about 1 year ago she noticed her prolapse had returned. She states she was able to see her prolapse. Needs to push bladder back inside inorder to void. Notes her incontinence has become worse over the last year. She is not sexually active and does not plan to be in the future. Features of incontinence: The patient leaks with [...] stroke Review of Systems: General Health: good CUSTOMER SERVICE VOICE - No headaches or loss of consciousness. [...] is normal. There are no rectal masses. PVR: 46-139 cc measured in the supine position with the bladder scanner shortly after the patient had voided. U/A: positive for RBC. Sent for UA and C&S Impression: Grade 3 prolapse Plan: Concerns regarding stopping her anticoagulants for risk of a PE. Urine will be sent for culture and analysis to check for infection. Possible workup with CT urogram and cystoscopy if she has RBC. She will also require UDS to determine cause of her leakage. She was sure she had overflow but given her PVR this unlikely. I explained that with multicompartment prolapse she needs to see urogyne. The nature of potential surgical repairs for her prolapse was discussed including an abdominal sacrocolopexy, a vaginal sacrocolpopexy or a colpocleisis. Risk of pelvic surgeries were discussed with the patient including the high risk for clots to develop. I also discussed that she would ideally need to be off of her anticoagulation to have surgery. Dr. Light would be involved if she did pursue any surgerydiscussed today. Discussed other non surgical treatment options including pessary, including models that are self adjustable and those that require a provider to adjust. I emphasized the importance of working up of any hematuria and incontinence prior to any surgical repair. RTC for UDS Urine sent for culture and microanalysis Referral to urogynecology - she is thinking today that she may want a colpocleisis. She is currently not interested in a pessary at this point. I, Patricia Izquierdo, have performed the documentation for this encounter in the presence of and acting as a scribe for CAROL WAHL MD. I performed the above noted history and physical. I have reveiwed and edited the above note and agree with the content, ECollin Wahl MD' Addendum: She had 10 RBC/hpf on a micro u/a that was well collected. Will set her up for a creat, CT urogram and a cysto. documented in this encounter Plan of Treatment Upcoming Encounters Date Type Specialty Care Team Description 02/11/2022 Scheduled View Only Hematology and Ángel Fischer Oncology [facility] [address] [place] [address] (Wo rk) 02/11/2022 TH Visit (TeleHealth) Ángel Hill Oncology [facility] [address] [place] [place] [address] (Wo rk) 02/11/2022 Infusion Hematology and Oncology 02/11/2022 Office Visit Hematology and Jazzy Armendariz R D [facility] DRIVE HEMATOLOGY AND ONCOLOGY [place], [place] 0[address] (Wo rk) 02/22/2022 TH Visit (TeleHealth) Hematology and Yaquelin Celis E, [facility] HEMATOLOGY AND ONCOLOGY [place], [place] 0375 (Wo rk) 02/25/2022 Office Visit Hematology and Ángel Fischer, Oncology [facility] ONCOLOGY [place], [place] 0375 (Wo rk) 02/25/2022 Infusion Hematology and Oncology 03/10/2022 Scheduled View Only Obstetrics and Nurse, Julian COLEMAN, zoogler 03/10/2022 Office Visit Obstetrics and Shazia Whitley, Gynecology [facility] UROGYNECOLOGY [place], [place] 0375 (Wo rk) 03/11/2022 Office Visit Hematology and Ángel Fischer MD [facility] [place] [address] Oncology Alyssa Joseph [address] MEDICAL ONCOLOGY [place], [place] [address] 03/11/2022 Infusion Hematology and Oncology 03/25/2022 Office Visit Hematology and Alyssa Joseph Oncology [address] MEDICAL ONCOLOGY [place], [place] [address] (Wo rk) 03/25/2022 Infusion Hematology and Oncology 03/31/2022 Office Visit Hematology and Alan Livingston M D [facility] HEMATOLOGY/[place] [address] Oncology Nilam So, [facility] DR HEMATOLOGY/[place] [address] 04/08/2022 Office Visit Hematology and Ángel Fischer MD [facility] [address] Oncology Alyssa Joseph, [address] [place] [address] 04/08/2022 Infusion Hematology and Oncology Scheduled Referrals Name Type Priority Associated Diagnoses Order S chedule Referral to Outpatient Routine Pelvic organ prolapse Ordere d: Urogynecology Referral quantification stage 3 05/2017 cystocele documented as of this encounter Procedures Procedure Name Priority Date/Time Associated Diagnosis Comme nts _URINALYSIS WITH Routine 09/19/2017 2:48 PM Other symptoms and Results for this MICROSCOPIC EDT signs involving the procedur e are in genitourinary system the res ults section. URINE CULTURE Routine 09/19/2017 2:48 PM Other symptoms and Re sults for this EDT signs involving the procedur e are in genitourinary system the res ults section. documented in this encounter Results (ABNORMAL) Urine culture Clean Catch Urine (09/19/2017 2:48 PM EDT) [facility] gist Method Time Signature Urine Culture 1,000-9,000 MADIHA cfu/ml [facility] probable LABORATORY contaminant (A) Specimen (Source) Anatomical Collection Method Collection Time Re ceived Time Location / / Volume Laterality Urine specimen 09/19/2017 2:48 09/19/2017 5:14 obtained by clean PM EDT PM EDT catch procedure (specimen) Resulting Agency Comment Spec In Lab Carol Wahl MD MICROBIOLOGY - GENERAL ORDER MELYSSA Performing Organization Address City/State/[place] [address] (ABNORMAL) _Urinalysis with microscopic (09/19/2017 2:48 PM EDT) [facility] gist Method Time Signature Glucose UA Negative Negative [facility] mg/dL [facility] LABORATORY Protein UA Negative Negative [facility] mg/dL [facility] LABORATORY Bilirubin UA Negative Negative [facility] mg/dL [facility] LABORATORY Comment: Clinical correlation required for positi ve Urine Bilirubin results as false positive may occur with some drugs and d rug related products. If a false positive is suspected a serum total bili reyes should be considered if clinically indicated. Urobilinogen UA Normal Normal mg/dL [facility] LABORATORY pH UA 6.0 5.0 - 8.0 [facility] LABORATORY Blood UA Large (A) Negative mg/dL [facility] LABORATORY Ketones UA Negative Negative mg/dL [facility] LABORATORY Nitrite UA Negative Negative [facility] LABORATORY Leukocytes UA Negative Negative [facility] LABORATORY Appearance UA Clear Clear [facility] LABORATORY Spec May UA 1.009 1.002 - 1.030 [facility] LAB[facility] Color UA Yellow Yellow [facility] LABOR[facility]ORY RBC UA 10 (H) 0 - 4 /HPF [facility] LABORATORY WBC UA <1 0 - 5 /HPF [facility] LABOR[facility]ORY Squam Epith UA <1 <=4 /HPF [facility] LABORATORY Specimen Anatomical Collection Method Collection Time Receive d Time (Source) Location / / Volume Laterality Urine specimen 09/19/2017 2:48 PM 018 4:53 (specimen) EDT PM EDT Resulting Agency Comment Spec In Lab Carol Wahl MD URINE ORDERABLES Performing Organization Address City/State/ZIP [place] [address] documented in this encounter Visit Diagnoses Diagnosis Pelvic organ prolapse quantification sta ge 3 cystocele Other symptoms and signs involving the g enitourinary system Mixed incontinence Mixed incontinence urge and stress (male )(female) documented in this encounter Care Teams Musical Instrument Maker Or Repairer Relationship Specialty Start Date End Date Berkley Madrigal MD PCP - General 04/13/10 02/15/18 AYLEEN Bray [address] [place] [address] documented as of this encounter
--- OUTSIDE RECORDS SUMMARY | 2022-02-11 01:09 | XMS_ITS | Encounter Summary ---
:1950 Author Organization [facility] [place] [address] Care Team Providers Name Role Phone Mook Coffey DO Primary Care Provider Encounter Details Date Type Department Care Team Description 03/27/2018 Office Visit Urology at [facility] MaryuriCarol craft Stress incontinence, female; [facility] MD Maria Teresa Urethral sphincter deficiency, intrinsic (ISD) [place] [address] UROLOGY DEPT. [phone] [place], [place] 0[address] (Wo rk) Social History Tobacco [...] Sign Reading Time Taken Comments Blood Pressure 158/79 03/27/2018 2:38 PM EST Pulse 96 03/27/2018 2:38 PM EST Temperature 36.2 ??C (97.2 ??F) 03/27/2018 2:38 PM EST Respiratory Rate - - Oxygen Saturation 98% 03/27/2018 2:38 PM EST Inhaled Oxygen Concentration - - Weight - - Height - - Body Mass Index - - documented in this encounter Patient Instructions Patient InstructionsApple Layton RN - 03/27/2018 2:40 PM EST Coaptite Care Instruction Sheet 1. After receiving the Collagen implant you may experience the following: A. [...] call the Urology Clinic at before 5pm. Follow up in 8 weeks for another injection documented in this encounter Progress Notes Carol Wahl MD - 03/27/2018 2:40 PM EST See my last note 01/23/18, and prior to that 11/28/17 and 11/14/17 - Urinary Incontinence Follow Up - Female Reason for Visit: This is a female 68 y.o. seen at the request of Mook Coffey DO with a recurred cystocele. Notes from Mook Coffey DO on file have been received and reviewed. HPI Pt underwent a vaginal hysterectomy and an attempted cystocele repair which was then converted to a ? Modified MMK performed in [place], [place] 38 years ago. 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 [...] booked to see Dr. Prater in gynecology, [facility]. She will discuss a pessary with him. [...] less improvement with the Sept coaptite. She is here for more coaptite. Cysto: see other note Imp: good bladder neck closure with coaptite. Plan: RTC 8 weeks for further injection if needed Apple Layton RN - 03/27/2018 2:40 PM EST After procedure, Patient was able to void without difficulty. PVR 37cc. 14F compact speedi caths given to patient should she have difficulty urinating. Instructed to call for any questions/problems. documented in this encounter Procedure Notes Carol Wahl MD - 03/27/2018 2:40 PM ESTAssociated Order(s): COLLAGEN ENDOSCOPIC INJECTION Pre-Procedure Diagnose(s): Stress incontinence, female The patient was placed in the lithotomy position and prepped and draped in the usual fashion. Lidocaine gel was instilled into the urethra. Using an injection scope cystoscopy was performed. The cysto was normal. Coapatite was injected to close the bladder neck. A total of 2 Syringes were used. The bladder neck was [...] Hematology Ángel Kimbrough Oncology [facility] ONCOLOGY [place] [id number] (Wo rk) 02/11/2022 TH Visit (TeleHealth) Hematology Ángel Kimbrough Oncology [facility] DR UMANA [place], [place] 0[address] (Wo rk) 02/11/2022 Infusion Hematology and Oncology 02/11/2022 Office Visit Hematology and Jazzy Armendariz R D Oncology [facility] HEMATOLOGY AND ONCOLOGY [place] [address] (Wo rk) 02/22/2022 TH Visit (TeleHealth) Hematology and Yaquelin Celis Oncology E, [facility] HEMATOLOGY [place] ONCOLOGY [place], [place] 0375 (Wo rk) 02/25/2022 Office Visit Ángel Hill Oncology [facility] DR UMANA [place], [place] 0[address] (Wo rk) 02/25/2022 Infusion Hematology and Oncology 03/10/2022 Scheduled View Only Obstetrics and Nurse, Oboneal II, global implementation manager 03/10/2022 Office Visit Obstetrics and Shazia Whitley Gynecology [facility] UROGYNECOLOGY [place], [place] 0[address] (Wo rk) 03/11/2022 Office Visit Ángel Hill MD [facility] [place] [address] Oncology [address]lyss[address] MEDICAL ONCOLOGY [place], [place] [id number] 03/11/2022 Infusion Hematology and Oncology 03/25/2022 Office Visit Hematology and Alyssa Joesph, Oncology [address] MEDICAL ONCOLOGY [place], [place] [address] (Wo rk) 03/25/2022 Infusion Hematology and Oncology 03/31/2022 Office Visit Hematology and Alan Livingston M D [facility] DR HEMATOLOGY/[place] [address] [facility] [address] 04/08/2022 Office Visit Hematology and Ángel Fischer MD [facility] [place] [address] [address] MEDICAL ONCOLOGY [place], [place] [id number] 04/08/2022 Infusion Hematology and Oncology documented as of this encounter Procedures Procedure Name Priority Date/Time Associated Comments Diagnosis COLLAGEN ENDOSCOPIC Routine 03/27/2018 2:40 PM Stress Re sults for this INJECTION EST incontinence, procedure are in female the results section. documented in this encounter Results Collagen Endoscopic Injection (03/27/2018 2:40 PM EST) Narrative Carol Wahl MD - 03/27/2018 2:40 PM EST Carol Wahl MD ? 04/01/2018 ??9:33 PM The patient was placed in the lithotomy position and prepped and draped in the usual fashion. ??Lidocaine gel was instilled into the urethra. ??Using an ??injection scop e cystoscopy was performed. The cysto was normal. ??Coapatite was i njected to close the bladder neck. ??A total of 2 Syringes we re ??used. ??The bladder neck was coapted at [...] (ISD) Intrinsic (urethral) sphincter deficienc y (ISD) documented in this encounter Care Teams Network Control Supervisor Relationship Specialty Start Date End Date Mook Coffey, PCP - General Family Medicine 02/16/[address] [place] [id number] documented as of this encounter
--- OUTSIDE RECORDS SUMMARY | 2022-02-11 01:09 | XMS_ITS | Encounter Summary ---
:1950 Author Organization [facility] Address [facility] [place] [address] Care Team Providers Name Role Phone Berkley Madrigal MD Primary Care Provider Encounter Details Date Type Department Care Team Description 11/20/2017 Orders Only Urology at [facility] Carol Wahl, [facility] [place] [address] [facility] [phone] UROLOGY DEPT. [place], [place] 0[address] (Wo rk) Social History Tobacco [...] View Only Hematology and Ángel Fischer Oncology [facility] ONCOLOGY [place], [place] 0[address] (Shana hewitt) 02/11/2022 TH Visit (TeleHealth) Hematology Ángel Kimbrough Oncology [facility] ONCOLOGY [place], [place] 0[address] (Shana hewitt) 02/11/2022 Infusion Hematology and Oncology 02/11/2022 Office Visit Hematology and Jazzy Armendariz R D Oncology [facility] HEMATOLOGY AND ONCOLOGY [place], [place] 0[address] (Shana hewitt) 02/22/2022 TH Visit (TeleHealth) Hematology and Yaquelin Celis Oncology E, [facility] HEMATOLOGY AND ONCOLOGY [place], [place] 0375 (Wo rk) 02/25/2022 Office Visit Hematology and Ángel Fischer Oncology [facility] ONCOLOGY [place], [place] 0375 (Wo rk) 02/25/2022 Infusion Hematology and Oncology 03/10/2022 Scheduled View Only Obstetrics and Nurse, Julian COLEMAN, portable track line marker 03/10/2022 Office Visit Obstetrics and Gutierrez, Shazia Baer, Gynecology [facility] UROGYNECOLOGY [place], [place] 0375 (Wo rk) 03/11/2022 Office Visit Hematology and Ángel Fischer MD [facility] [place] [address] Oncology Alyssa Joseph [address] [place] [address] 03/11/2022 Infusion Hematology and Oncology 03/25/2022 Office Visit Hematology and Alyssa Joseph Oncology [address] MEDICAL ONCOLOGY [place], [place] [address] (Wo rk) 03/25/2022 Infusion Hematology and Oncology 03/31/2022 Office Visit Hematology and Alan Livingston M D [facility] DR HEMATOLOGY/[place] [address] Oncology Nilam So [facility] HEMATOLOGY/[place] [address] 04/08/2022 Office Visit Hematology and Ángel Fischer MD [facility] [place] [address] Oncology [address]lyss[address] Joseph[address] MEDICAL ONCOLOGY [place], [place] [address] 04/08/2022 Infusion Hematology and Oncology documented as of this encounter Visit Diagnoses Not on filedocumented in this encounter Care Teams Disintegrator Operator Relationship Specialty Start Date End Date Berkley Madrigal MD PCP - General 04/13/10 02/15/18 AYLEEN Bray [address] [place], [place] [id number] documented as of this encounter
--- OUTSIDE RECORDS SUMMARY | 2022-02-11 01:09 | XMS_ITS | Encounter Summary ---
:1950 Author Organization [facility] [place] [address] Care Team Providers Name Role Phone Berkley Madrigal MD Primary Care Provider Encounter Details Date Type Department Care Team Description 11/28/2017 Laboratory Appointment Lab [address]L Zaria [place] [id number] Social History Tobacco Use Types Packs/Day Years [...] Ángel Fischer Oncology [facility] ONCOLOGY [place], [place] 0[address] (Wo rk) 02/11/2022 TH Visit (TeleHealth) Ángel Hill Oncology [facility] [address] UMANA [place], [place] [address] (Wo rk) 02/11/2022 Infusion Hematology and Oncology 02/11/2022 Office Visit Hematology and Jazzy Armendariz R D Oncology [facility] HEMATOLOGY AND ONCOLOGY [place], [place] 0[address] (Wo rk) 02/22/2022 TH Visit (TeleHealth) Hematology and Yaquelin Celis Oncology Daniel, [facility] HEMATOLOGY AND ONCOLOGY [place], [place] 0375 (Wo rk) 02/25/2022 Office Visit Hematology Ángel Kimbrough Oncology [facility] ONCOLOGY [place], [place] 0[address] (Wo rk) 02/25/2022 Infusion Hematology and Oncology 03/10/2022 Scheduled View Only Obstetrics and Nurse, Julian COLEMAN, asl interpreter 03/10/2022 Office Visit Obstetrics and Shazia Whitley, Gynecology [facility] UROGYNECOLOGY [place], [place] 0[address] (Wo rk) 03/11/2022 Office Visit Hematology and Ángel Fischer MD [facility] [place] [address] On[address]lyss[address] Joseph[address] ONCOLOGY [place], [place] [address] 03/11/2022 Infusion Hematology and Oncology 03/25/2022 Office Visit Hematology and Alyssa Joseph, Oncology [address] ONCOLOGY [place], [place] [address] (Wo rk) 03/25/2022 Infusion Hematology and Oncology 03/31/2022 Office Visit Hematology and Alan Livingston M D [facility] DR HEMATOLOGY/[place] [address] [facility]cology [facility] [address] 04/08/2022 Office Visit Hematology and Ángel Fischer MD [facility] [place] [address] On[address]lyss[address] Joseph[address] ONCOLOGY [place], [place] [address] 04/08/2022 Infusion Hematology and Oncology documented as of this encounter Procedures Procedure Name Priority Date/Time Associated Diagnosis Comme nts CREATININE Routine 11/28/2017 1:24 PM Overflow incontinence Results for this EDT procedure are i n the results section. documented in this encounter Results (ABNORMAL) Creatinine (11/28/2017 1:24 PM EDT) athologist Signature Creatinine 0.98 0.70 - ZARIA BOBO 1.20 mg/dL [facility] Estimated GFR 59 (L) >=60 [facility] mL/min/1.7 [facility] 3 m?? HOSPITAL LABORATORY Comment: The eGFR was calculated using the CKD-EP I equation. As with all creatinine based estimates of kidney function, eGFR values calculated with the CKD-EPI equation are not accurate in patients wi th acute kidney failure, extremes of body mass or the acutely ill. http://[employer]/Heat[employer]ie http://[employer]/hoohbenkf eGFR 69 >=60 mL/min/1.73 m?? [facility] Comment: The eGFR was calculated using the CKD-EP I equation. As with all creatinine based estimates of kidney function, eGFR values calculated with the CKD-EPI equation are not accurate in patients wi th acute kidney failure, extremes of body mass or the acutely ill. http://[employer]nkdep http://[employer]/hoohbenkf Specimen Anatomical Collection Method Collection Time Receive d Time (Source) Location / / Volume Laterality Blood specimen 11/28/2017 1:24 PM 018 1:49 (specimen) EDT PM EDT Resulting Agency Comment Spec In Lab Carol Whal MD CHEMISTRY ORDERABLES Performing Organization Address City/State/[place] [address] documented in this encounter Visit Diagnoses Diagnosis Overflow incontinence documented in this encounter Care Teams Gun Examiner Relationship Specialty Start Date End Date Berkley Madrigal MD PCP - General 04/13/10 02/15/18 AYLEEN D [address] [place] [address] documented as of this encounter
--- OUTSIDE RECORDS SUMMARY | 2022-02-11 01:09 | XMS_ITS | Encounter Summary ---
:1950 Author Organization [facility] [place] [address] Care Team Providers Name Role Phone Mook Coffey DO Primary Care Provider Encounter Details Date Type Department Care Team Description 03/14/2018 Office Visit Hematology/Oncology Bernardo Salmon MD [facility] [address] HEMATOLOGY/[place] [address] Chronic lymphocytic at [facility] Nilam So APRN [facility] [address] HEMATOLOGY/[place] [address] [place] [phone] Social History Tobacco Use Types Packs/Day [...] Sign Reading Time Taken Comments Blood Pressure 150/88 03/14/2018 9:33 AM EDT Pulse 70 03/14/2018 9:33 AM EDT Temperature 36.8 ??C (98.2 ??F) 03/14/2018 9:33 AM EDT Respiratory Rate 16 03/14/2018 9:33 AM EDT Oxygen Saturation 100% 03/14/2018 9:33 AM EDT Inhaled Oxygen Concentration - - Weight 82.4 kg (181 lb 9.6 oz) 03/14/2018 9:33 AM EDT Height 163.8 cm (5' 4.49) 03/14/2018 9:33 AM EDT suzanna ponce Body Mass Index 30.7 03/14/2018 9:33 AM EDT documented in this encounter Progress Notes Nilam So, ASSISTANT AUTO CENTER MANAGER - 03/14/2018 9:30 AM EDT Subjective: Patient ID: Carol Keller [...] only Pneumovax 2014 HPI Anahi is doing well - she did start glyburide for AIC that climbed to 7 - she did have some hypoglycemia - and now has been taking half dose which is helping. She has had no new lumps or bumps. No recent infections, no drenching night sweats. She has been taking tylenol for sciatica - she started PT and it is getting better with exercises. Energy is good. She really is without concerns or complaints today. Review of Systems Constitutional: Negative. HENT: [...] affect. Lab Results Component Value Date WBC 123.5 03/09/2018 HGB 13.4 03/09/2018 HCT 44.4 03/09/2018 MCV 92.3 01/30/2017 PLATELET 200 03/09/2018 Chemistry Component Value Date/Time NA 143 01/30/2017 1412 K 4.0 01/30/2017 1412 CL 102 01/30/2017 1412 CO2 28 01/30/2017 1412 BUN 14 03/09/2018 CREATININE 0.80 03/09/2018 Component Value Date/Time CALCIUM 9.2 01/30/2017 1412 ALKPHOS 70 01/30/2017 1412 AST 20 01/30/2017 1412 ALT 20 01/30/2017 1412 BILITOT 0.3 01/30/2017 1412 BP 150/88 (Patient Position: Sitting) Pulse 70 Temp 36.8 ??C (98.2 ??F) (Oral) Resp 16 Ht 163.8 cm (5' 4.49) Comment: copied Wt 82.4 kg (181 lb 9.6 oz) SpO2 100% BMI 30.70 kg/m?? Assessment and Plan: 1. Assessment: CLL. Counts stable with slowly rising white count. No worrisome or symptomatic adenoapthy. No B symptoms, ALC doubling time is about 2 years, (although she did have a drop in her ALC 2 years ago when she was treated with steroid eye drops) No recurrent infections, no signs of AIHA or ITP. No concern for transformation. No indication for treatment at this time. Reviewed CLL and indications for therapy, Also reviewed inherent increase risk for infection. Influenza = UTD Pneumococcal - UTD Plan: We will continue to monitor in hematology clinic. Reviewed CLL and indications for treatment. Discussed potential treatment options when she requires treatment. Carol will return to hematology in 3 months for ongoing monitoring, she will call if there are any problems before then. documented in this encounter Plan of Treatment Upcoming Encounters Date Type Specialty Care Team Description 02/11/2022 Scheduled View Only Hematology and Ángel Fischer Oncology [facility] ONCOLOGY [place], [place] [address] (Wo rk) 02/11/2022 TH Visit (TeleHealth) Hematology Ángel Kimbrough Oncology [facility] ONCOLOGY [place], [place] [address] (Wo rk) 02/11/2022 Infusion Hematology and Oncology 02/11/2022 Office Visit Hematology and Jazzy Armendariz R D Oncology [facility] HEMATOLOGY AND ONCOLOGY [place], [place] [address] (Wo rk) 02/22/2022 TH Visit (TeleHealth) Hematology and Yaquelin Celis Oncology E, [facility] HEMATOLOGY AND ONCOLOGY [place], [place] [address] (Wo rk) 02/25/2022 Office Visit Hematology Ángel Kimbrough Oncology [facility] ONCOLOG[facility] [place], [place] [address] (Wo rk) 02/25/2022 Infusion Hematology and Oncology 03/10/2022 Scheduled View Only Obstetrics and Nurse, Julian COLEMAN, ancillary services manager therapy 03/10/2022 Office Visit Obstetrics and Shazia Whitley Gynecology ASSISTANT AUTO CENTER MANAGER [facility] UROGYNECOLOGY [place], [place] [address] (Wo rk) 03/11/2022 Office Visit Hematology and Ángel Fischer MD [facility] [place] [address] Oncology [address] Joseph[address] ONCOLOGY [place], [place] [phone] 03/11/2022 Infusion Hematology and Oncology 03/25/2022 Office Visit Hematology and Alyssa Joseph, Oncology [address] ONCOLOGY [place], [place] [phone] (Wo rk) 03/25/2022 Infusion Hematology and Oncology 03/31/2022 Office Visit Hematology and Alan Livingston M D [facility] DR HEMATOLOGY/[place] [address] Oncology [facility] [address] 04/08/2022 Office Visit Hematology and Ángel Fischer MD [facility] [place] [address] On[address] ONCOLOGY [place], [place] [phone] 04/08/2022 Infusion Hematology and Oncology documented as of this encounter Procedures Procedure Name Priority Date/Time Associated Diagnosis Comme nts CBC (WITH DIFF) Routine 03/09/2018 Results for this procedure are i n the results section . LACTATE DEHYDROGENASE Routine 03/09/2018 Result s for this procedure are i n the results section . COMPREHENSIVE METABOLIC Routine 03/09/2018 Resu lts for this PANEL (NON-FASTING) procedur e are in the results section . documented in this encounter Results Lactate Dehydrogenase (03/09/2018) P athologist Signature LDH 543 Specimen (Source) Anatomical Location Collection Method / Collectio n Time Received Time / Laterality Volume Blood specimen 03/09/2018 (specimen) Nilam So APRN CHEMISTRY ORDERABLES Comprehensive metabolic panel (non-fasting) (03/09/2018) P athologist Signature BUN 14 Creatinine 0.80 Specimen (Source) Anatomical Location Collection Method / Collectio n Time Received Time / Laterality Volume Blood specimen 03/09/2018 (specimen) Nilam So APRN CHEMISTRY ORDERABLES CBC (with Diff) (03/09/2018) P athologist Signature WBC 123.5 Hemoglobin 13.4 Hematocrit 44.4 Platelets 200 Neutr Abs (ANC) 7.41 Specimen (Source) Anatomical Location Collection Method / Collectio n Time Received Time / Laterality Volume Blood specimen 03/09/2018 (specimen) Nilam So APRN HEMATOLOGY ORDERABLES documented in this encounter Visit Diagnoses Diagnosis Chronic lymphocytic leukemia Chronic lymphoid leukemia, without menti on of having achieved remission documented in this encounter Care Teams Cold Roll Packer Sheet Iron Relationship Specialty Start Date End Date Mook Coffey DO PCP - General Family Medicine 02/16/[address] [place] [phone] documented as of this encounter
--- OUTSIDE RECORDS SUMMARY | 2022-02-11 01:09 | XMS_ITS | Encounter Summary ---
:1950 Author Organization [place] [address] Care Team Providers Name Role Phone Berkley Madrigal MD Primary Care Provider Reason for Visit Reason Comments Macular Hole Encounter Details Date Type Department Care Team Description 07/25/2017 Office Visit Ophthalmology at [facility] Venkata Page, 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 [s/p PPV, ERM and ILM peel, SF6 01/05/17 with NNB]; [facility] Macular hole, right eye [s/p PPV, MP, ga s [July 2016] with CBC] [place] [address] [place] [address] OPHTHALMOLOGY DEPT [place], [place] [address] Social History Tobacco Use Types [...] encounter Progress Notes Venkata Page MD - 07/25/2017 1:30 PM EST ASSESSMENT: 1. 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 [s/p PPV, ERM and ILM peel, SF6 01/05/17 with NNB] 2. Macular hole, right eye [s/p PPV, MP, gas [July 2016] with CBC] Now s/p PCIOL OU Exam/Findings Today 07/25/17: OD: Vision 20/50, mild PCO, hole closed with mild overlying ERM OS: Vision 20/20, clear PCIOL, hole closed PLAN: Recommend continued use of artificial tears and ointment at night for discomfort/dryness/irritation. See Dr. Hart for routine follow up. OD vision may be improved by YAGcaps. Follow up retina 1 year for DFE/OCT The Ophthalmology scribe for this encounter is KAREN Dial. I performed and personally participated in the whatley and critical portions of the service. I have reviewed/updated the documentation, and confirm that all of the information is accurate as described. Venkata Page MD documented in this encounter Plan of Treatment Upcoming Encounters Date Type Specialty Care Team Description 02/11/2022 Scheduled View Only Hematology Ángel Kimbrough Oncology [facility] ONCOLOGY [place], [place] [address] (Wo rk) 02/11/2022 TH Visit (TeleHealth) Hematology Ángel Kimbrough Oncology [facility] ONCOLOGY [place], [place] [address] (Wo rk) 02/11/2022 Infusion Hematology and Oncology 02/11/2022 Office Visit Hematology and Jazzy Armendariz, R D Oncology [facility] HEMATOLOGY AND ONCOLOGY [place], [place] [address] (Wo rk) 02/22/2022 TH Visit (TeleHealth) Hematology and Yaquelin Celis Oncology E, [facility] HEMATOLOGY AND ONCOLOGY [place], [place] [address] (Wo rk) 02/25/2022 Office Visit Hematology Ángel Kimbrough Oncology [facility] ONCOLOGY [place], [place] [address] (Wo rk) 02/25/2022 Infusion Hematology and Oncology 03/10/2022 Scheduled View Only Obstetrics and Nurse, Obgyn II, hematology technician 03/10/2022 Office Visit Obstetrics and Shazia Whitley Gynecology [facility] UROGYNECOLOGY [place], [place] [address] (Wo rk) 03/11/2022 Office Visit Hematology Ángel Kimbrough MD [facility] [place] [address] On[address] MEDICAL ONCOLOGY [place], [place] [phone] 03/11/2022 Infusion Hematology and Oncology 03/25/2022 Office Visit Hematology and Alyssa Joseph, Oncology [address] MEDICAL ONCOLOGY [place], [place] [phone] (Wo rk) 03/25/2022 Infusion Hematology and Oncology 03/31/2022 Office Visit Hematology and Alan Livingston M D [facility] DR HEMATOLOGY/[place] [address] [facility] [address] 04/08/2022 Office Visit Hematology and Ángel Fischer MD [facility] [place] [address] On[address] Joseph[address] ONCOLOGY [place], [place] [phone] 04/08/2022 Infusion Hematology and Oncology documented as of this encounter Procedures Procedure Name Priority Date/Time Associated Diagnosis Comme nts OCT RETINA - OU - Routine 07/25/2017 3:05 PM Full thickness Re sults for this BOTH EYES EST macular hole of left procedu re are in eye [s/p PPV, ERM the result s and ILM peel, SF6 section. 01/05/17 with NNB ] Macular hole, right eye [s/p PPV, MP, gas [July 2016] with CBC] documented in this encounter Results OCT [id number] EYES (07/25/2017 3:05 PM EST) Anatomical Region Laterality Modality Other Specimen (Source) Anatomical Location Collection Method / Collectio n Time Received Time / Laterality Volume Narrative 07/25/2017 3:05 PM EST Right Eye Quality was good. Scan locations include d subfoveal. Progression has been stable. Findings include normal observat ions, normal foveal contour. Left Eye Quality was good. Scan locations include d subfoveal. Progression has been stable. Findings include normal observat ions, normal foveal contour. Venkata Page MD OPHTHALMOLOGY SERVICES ORDER MELYSSA documented in this encounter Visit Diagnoses Diagnosis 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 [s/p PPV, ERM and ILM peel, SF6 01/05/17 with NNB] Macular hole, right eye [s/p PPV, MP, ga s [July 2016] with CBC] Macular cyst, hole, or pseudohole of ret deep documented in this encounter Care Teams Ribbing Machine Operator Relationship Specialty Start Date End Date Berkley Madrigal MD PCP - General 04/13/10 02/15/18 AYLEEN D [address] [place] [address] documented as of this encounter
--- OUTSIDE RECORDS SUMMARY | 2022-02-11 01:09 | XMS_ITS | Encounter Summary ---
:1950 Author Organization [facility] Address [address] [place] [address] Care Team Providers Name Role Phone Berkley Madrigal MD Primary Care Provider Reason for Visit Reason Comments Macular Hole Encounter Details Date Type Department Care Team Description 02/14/2017 Office Visit Ophthalmology at [facility] Venkata Swartz, Full thickness [facility] macular hole of left Drive [facility] eye [s/p [place]PV[place] [address] ASHLYN atkinson, OPHTHALMOLOGY 01/05/17] (Prim alyson Dx) DEPT [place], [place] [address] Social History Tobacco Use Types [...] encounter Progress Notes Venkata Page MD - 02/14/2017 10:00 AM EDT ASSESSMENT: 1. 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 [s/p PPV, ERM and ILM peel, SF6 01/05/17] POW6 Doing well, hole remains closed Patient reports persistent discomfort and dryness OD PLAN: Recommend continued use of artificial tears and ointment at night for discomfort/dryness/irritation. Okay to stop Pred Forte drops today Follow up as scheduled with Dr. Hart next week Follow up retina 3-6 months for DFE/OCT The Ophthalmology scribe for this [...] and Ángel Fischer Oncology [facility] ONCOLOGY [place], [place] [address] (Wo rk) 02/11/2022 TH Visit (TeleHealth) Hematology Ángel Kimbrough Oncology [facility] ONCOLOGY [place], [place] [address] (Wo rk) 02/11/2022 Infusion Hematology and Oncology 02/11/2022 Office Visit Hematology and Jazzy Armendariz R D Oncology [facility] HEMATOLOGY AND ONCOLOGY [place], [place] [address] (Wo rk) 02/22/2022 TH Visit (TeleHealth) Hematology and Yaquelin Celis Oncology E, [facility] HEMATOLOGY AND ONCOLOGY [place], [place] [address] (Wo rk) 02/25/2022 Office Visit Ángel Hill Oncology [facility] DR UMANA [place], [place] [address] (Wo rk) 02/25/2022 Infusion Hematology and Oncology 03/10/2022 Scheduled View Only Obstetrics and NurseJulian II, causticiser 03/10/2022 Office Visit Obstetrics and Shazia Whitley, Gynecology [facility] UROGYNECOLOGY [place], [place] [address] (Wo rk) 03/11/2022 Office Visit Ángel Hill MD [facility] [place] [address] Oncology [address]lyss[address] Joseph[address] [address] 03/11/2022 Infusion Hematology and Oncology 03/25/2022 Office Visit Hematology and Alyssa Joseph, Oncology [address] MEDICAL ONCOLOGY [place], [place] [phone] (Wo rk) 03/25/2022 Infusion Hematology and Oncology 03/31/2022 Office Visit Hematology and Alan Livingston M D [facility] DR HEMATOLOGY/[place] [address] Oncology [facility] [address] 04/08/2022 Office Visit Hematology and Ángel Fischer MD [facility] [place] [address] Oncology [address] Joseph[address] MEDICAL ONCOLOGY [place], [place] [phone] 04/08/2022 Infusion Hematology and Oncology documented as of this encounter Procedures Procedure Name Priority Date/Time Associated Diagnosis Comme nts OCT RETINA - OU - Routine 02/14/2017 3:51 PM Full thickness Re sults for this BOTH EYES EDT macular hole of left procedu re are in eye [s/p PPV, ERM the result s and ILM peel, SF6 section. 01/05/17] documented in this encounter Results OCT [id number] EYES (02/14/2017 3:51 PM EDT) Anatomical Region Laterality Modality Other Specimen (Source) Anatomical Location Collection Method / Collectio n Time Received Time / Laterality Volume Narrative 02/14/2017 3:51 PM EDT Right Eye Quality was good. Scan locations include d subfoveal. Progression has been stable. Findings include epiretinal memb karo. Left Eye Quality was good. Scan locations include d subfoveal. Progression has improved. Venkata Page MD OPHTHALMOLOGY SERVICES ORDER MELYSSA documented in this encounter Visit Diagnoses Diagnosis 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 [s/p PPV, ERM and ILM peel, SF6 01/05/17] - Primary documented in this encounter Care Teams Tester Operator Helper Relationship Specialty Start Date End Date Berkley Madrigal MD PCP - General 04/13/10 02/15/18 AYLEEN Bray [address] [place] [address] documented as of this encounter
--- OUTSIDE RECORDS SUMMARY | 2022-02-11 01:09 | XMS_ITS | Encounter Summary ---
:1950 Author Organization [facility] [place] [address] Care Team Providers Name Role Phone Berkley Madrigal MD Primary Care Provider Reason for Visit Reason Comments Diabetes Encounter Details Date Type Department Care Team Description 03/01/2017 Office Visit Endocrinology at [facility] Maribel Julian, Type 2 diabetes mellitus wit hout complication, unspecified roasterman insulin use status; [facility] EXCELSIOR MACHINE OPERATOR Impaired [place] [address] CENTER [phone] ENDOCRINOLOGY DEPT. [place], [place] [address] Social History Tobacco Use Types [...] Sign Reading Time Taken Comments Blood Pressure 138/71 03/01/2017 1:30 PM EDT Pulse 74 03/01/2017 1:30 PM EDT Temperature 36.7 ??C (98 ??F) 03/01/2017 1:30 PM EDT Respiratory Rate - - Oxygen Saturation 97% 03/01/2017 1:30 PM EDT Inhaled Oxygen Concentration - - Weight 78.5 kg (173 lb) 03/01/2017 1:30 PM EDT Height 163.8 cm (5' 4.5) 03/01/2017 1:30 PM EDT Body Mass Index 29.24 03/01/2017 1:30 PM EDT documented in this encounter Patient Instructions Patient InstructionsMaribel Ware APRN - 03/01/2017 1:30 PM EDT Glimepiride 1 mg Only take 1/4 before high carb meals to avoid glucose above 180 two hrs after the meal documented in this encounter Progress Notes Maribel Ware APRN - 03/01/2017 1:30 PM EDT Reminder: Prefers to be called Anahi. REASON FOR VISIT: Annual visit for type 2 DM managed with healthy meal plan and physical activity . BRIEF HISTORY: Informs C4 PLANNER of her health challenges in the past year. 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 Refer to 07/15/2016 ED discharge summary by Lizeth Campbell MD. PAST MEDICAL HISTORY: Significant for CLL, frontal CVA, vitrectomy, right and left pulmonary embolism. 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 Enjoying time with her [facility]. Eyes: Followed closely by yeast stacker. Continues to have irritation in right eye. No recent headaches or chest pain or shortness of breath. No recent GI symptoms. Appetite is okay. Sleep pattern is usually okay. PHYSICAL EXAM: Appearance: She appears in very good health. Weight 173 pounds. Blood pressure 138/71. Eye exam deferred since she has close followup with yeast stacker. Neck: No thyromegaly or lymphadenopathy. Heart: Regular rate and rhythm. Lungs are clear to auscultation. Feet: Skin is normal. Pulses are normal. Neuro: Normal sensation to 10 Gs of pressure. Hemoglobin A1c on 01/30= 5.9%, one year ago it was 6.2%. At time of diagnosis for diabetes, hemoglobin A1c was 7%, then patient lost weight, and after that she started having symptoms of low glucose level,( had testing in endocrinologyfor hypoglycemia). Patient states that now she feels terrible and has a lot of fatigue after meals when glucose level gets any higher than 170. IMPRESSION AND PLAN: History of type 2 controlled by diet and exercise. Advised patient could take a quarter of a tablet of 1 mg glyburide before high carb meal. Reviewed target glucose levels of under 180 two hours after a meal. Blood pressure is at goal. Physical activity has been walking. She would like to return to office in 1 year. Will scheduled that appointment with Dr. Rich. Will check hemoglobin A1c. Gave patient copy of her lab results from January 30 and reviewed them with her. HDL, DLDL, and microalbumin were done today. Results not available during office visit. In 1 year, will check hemoglobin A1c. This was a 33-minute office visit with 24 minutes spent counseling [id number] with patient in the management of glucose levels, reviewing target glucose levels, adding low dose glyburide to avoid glucose levels above 180 two hours after a meal. Has had flu vaccine. Recent Results (from the past 72 hour(s)) HDL/Cholesterol Profile Result Value Ref Range Chol, Total 240 (H) <=239 mg/dL HDL 77 >=40 mg/dL Chol/HDL Ratio 3.1 ratio Chol/HDL Interpretation See Note LDL Cholesterol, Direct Result Value Ref Range LDL Chol Direct 149 <=190 mg/dL U Albumin/Cre Ratio Result Value Ref Range Alb/Cr Ratio, Random Not Calculated 0 - 29 mcg/mg Cr U Albumin Conc, Random <3.0 mg/L U Creatinine 38 mg/dL documented in this encounter Plan of Treatment Upcoming Encounters Date Type Specialty Care Team Description 02/11/2022 Scheduled View Only Hematology and Ángel Fischer Oncology [facility] ONCOLOGY [place], [place] [address] (Shana hewitt) 02/11/2022 TH Visit (TeleHealth) Hematology and Ángel Fischer Oncology [facility] ONCOLOGY [place], [place] [address] (Shana hewitt) 02/11/2022 Infusion Hematology and Oncology 02/11/2022 Office Visit Hematology and Jazzy Armendariz R D Oncology [facility] CESAR HEMATOLOGY AND ONCOLOGY [place], [place] [address] (Shana hewitt) 02/22/2022 TH Visit (TeleHealth) Hematology and Yaquelin Celis Oncology E, [facility] HEMATOLOGY AND ONCOLOGY [place], [place] [address] (Shana hewitt) 02/25/2022 Office Visit Hematology and Ángel Fischer Oncology [facility] ONCOLOGY [place], [place] [address] (Wo rk) 02/25/2022 Infusion Hematology and Oncology 03/10/2022 Scheduled View Only Obstetrics and Nurse, Julian COLEMAN, associate business analyst 03/10/2022 Office Visit Obstetrics and Gutierrez, Shazia Baer, Gynecology [facility] UROGYNECOLOGY [place], [place] 0[address] (Wo rk) 03/11/2022 Office Visit Hematology and Ángel Fischer MD [facility] [place] [address] Oncology [address]lyss[address] Joseph[address] MEDICAL ONCOLOGY [place], [place] [id number] 03/11/2022 Infusion Hematology and Oncology 03/25/2022 Office Visit Hematology and Alyssa Joseph Oncology [address] MEDICAL ONCOLOGY [place], [place] [address] (Wo rk) 03/25/2022 Infusion Hematology and Oncology 03/31/2022 Office Visit Hematology and Alan Livingston M D [facility] DR HEMATOLOGY/[place] [address] Oncology Nilam So [facility] HEMATOLOGY/[place] [address] 04/08/2022 Office Visit Hematology and Ángel Fischer MD [facility] [address] Oncology Alyssa Joseph[address] MEDICAL ONCOLOGY [place], [place] [address] 04/08/2022 Infusion Hematology and Oncology documented as of this encounter Procedures Procedure Name Priority Date/Time Associated Diagnosis Comme nts LAB SCAN 04/28/2017 12:00 AM Results for this EST procedure are i n the results section . documented in this encounter Results SCAN DOC: LAB (04/28/2017 12:00 AM EST) Narrative 04/28/2017 12:00 AM EST This result has an attachment that is no t available. Ordered by an unspecified provider. Scanning Provider MEDIA MGR SCAN EXT ORDR/RSLT U Albumin/Cre Ratio (03/01/2017 1:01 PM EDT) [facility] Method Time Signature Alb/Cr Ratio, Not Calculated 0 - 29 [facility] Random mcg/mg Cr [facility] Comment: Reference Ranges: <30 mcg/mg: Normal [...] 362 U Albumin Conc, Random <3.0 mg/L [facility] U Creatinine 38 mg/dL [facility] Specimen Anatomical Collection Method Collection Time Receive d Time (Source) Location / / Volume Laterality Urine specimen 03/01/2017 1:01 PM 017 1:07 (specimen) EDT PM EDT Resulting Agency Comment Spec In Lab Maribel Ware APRN URINE ORDERABLES Performing Organization Address City/State/[place] [address] LDL Cholesterol, Direct (03/01/2017 1:01 PM EDT) athologist Signature LDL Chol 149 <=190 [facility] Direct mg/dL [facility] Specimen Anatomical Collection Method Collection Time Receive d Time (Source) Location / / Volume Laterality Blood specimen 03/01/2017 1:01 PM 017 1:07 (specimen) EDT PM EDT Resulting Agency Comment Spec In Lab Maribel Ware APRN CHEMISTRY ORDERABLES Performing Organization Address City/State/[place] [address] (ABNORMAL) HDL/Cholesterol Profile (03/01/2017 1:01 PM EDT) Patholo gist Method Time Signature Chol, Total 240 (H) <=239 MADIHA mg/dL [facility] HDL 77 >=40 [facility] mg/dL [facility] Chol/HDL Ratio 3.1 ratio [facility] Chol/HDL See Note MADIHA Interpretation [facility] Comment: Lipid management should be guided by a p atient? s ASCVD risk, goals and preferences. ACC/AHA Guidelines recommend high intens ity statin if clinical ASCVD or LDL greater than or equal to 190 mg/dL. http://[employer].com/MXT-DSC-Bbdfpksqg Measure LDL if Total Cholesterol minus H DL Cholesterol is greater than 220 mg/dL. Adults aged 40-75 with LDL 70-189 mg/dL should have their 10 year ASCVD risk estimated with the ACC/AHA ASCVD risk es timator http://tools.acc.org/PGOZF-Mmow-Fuccmpdd r/ Statin should be discussed if risk [...] Comment Spec In Lab Maribel Ware APRN CHEMISTRY ORDERABLES Performing Organization Address City/State/ZIP Code Phon e Number [place] [phone] [address] documented in this encounter Visit Diagnoses Diagnosis Type 2 diabetes mellitus without complic ation, unspecified half-way insulin use status Impaired fasting glucose documented in this encounter Care Teams Steam Train Driver Relationship Specialty Start Date End Date Berkley Madrigal MD PCP - General 04/13/10 02/15/18 RUST Katarina [address] [place] [address] documented as of this encounter
--- OUTSIDE RECORDS SUMMARY | 2022-02-11 01:09 | XMS_ITS | Encounter Summary ---
:1950 Author Organization [facility] [place] [address] Care Team Providers Name Role Phone Mook Coffey DO Primary Care Provider Reason for Visit Reason Onset Date Comments Vaginal Discharge 05/07/2018 Encounter Details Date Type Department Care Team Description 05/07/2018 Telephone Obstetrics and Gynecology at [facility] Vaginal Discharge [facility] [place] [address] Social History Tobacco Use Types Packs/Day [...] this encounter Miscellaneous Notes Telephone Encounter - Nirali Munguia RN - 05/07/2018 9:03 AM EST Caller: patient Learning Needs Assessment Reviewed: Yes Subjective Patient presents with: Vaginal Discharge Objective/Assessment Symptom onset: 05/05/2018 Location: vaginal Duration: since onset Characteristics: discharge, fevers/chills Aggravating factors: discharge, fevers/chills Relieving factors: none Timing: since onset Severity: mild Pertinent Past Medical History: pessary, CLL Plan Intervention/Plan/ Follow Up: patient calls with reports of fevers with chills over the weekend, reports fever reaching 100F. Reports Monday05/05/2018 with large amounts of vaginal discharge, no odor. Asking for appointment for today for evaluation of pessary. Appointment scheduled for 1300 with ADENIKE Crandall. documented in this encounter Plan of Treatment Upcoming Encounters Date Type Specialty Care Team Description 02/11/2022 Scheduled View Only Hematology and Ángel Fischer Oncology [facility] DR UMANA [place], [place] [address] (Wo rk) 02/11/2022 TH Visit (TeleHealth) Hematology Ángel Kimbrough Oncology [facility] ONCOLOGY [place], [place] [address] (Wo rk) 02/11/2022 Infusion Hematology and Oncology 02/11/2022 Office Visit Hematology and Jazzy Armendariz R D [facility] DRIVE HEMATOLOGY AND ONCOLOGY [place], [place] [address] (Wo rk) 02/22/2022 TH Visit (TeleHealth) Hematology and Yaquelin Celis Oncology E, [facility] HEMATOLOGY AND ONCOLOGY [place], [place] [address] (Wo rk) 02/25/2022 Office Visit Hematology Ángel Kimbrough Oncology [facility] ONCOLOGY [place], [place] [address] (Wo rk) 02/25/2022 Infusion Hematology and Oncology 03/10/2022 Scheduled View Only Obstetrics and Nurse, Julian COLEMAN, seam checker 03/10/2022 Office Visit Obstetrics and Shazia Whitley, Gynecology [facility] UROGYNECOLOGY [place], [place] [address] (Wo rk) 03/11/2022 Office Visit Ángel Hill MD [facility] [place] [address] Oncology Alyssa Joseph[address] MEDICAL ONCOLOGY [place], [place] [address] 03/11/2022 Infusion Hematology and Oncology 03/25/2022 Office Visit Hematology and Alyssa Joseph, Oncology [address] MEDICAL ONCOLOGY [place], [place] [phone] (Wo rk) 03/25/2022 Infusion Hematology and Oncology 03/31/2022 Office Visit Hematology and Alan Livingston M D [facility] DR HEMATOLOGY/[place] [address] Oncology Nilam So, [facility] DR HEMATOLOGY/[place] [address] 04/08/2022 Office Visit Hematology and Ángel Fischer MD [facility] [place] [address] Oncology Alyssa Joseph, [address] [place] [address] 04/08/2022 Infusion Hematology and Oncology documented as of this encounter Visit Diagnoses Not on filedocumented in this encounter Care Teams Community Nutrition Educator Relationship Specialty Start Date End Date Mook Coffey DO PCP - General Family Medicine 02/16/[address] [place] [phone] documented as of this encounter
--- OUTSIDE RECORDS SUMMARY | 2022-02-11 01:09 | XMS_ITS | Encounter Summary ---
:1950 Author Organization [facility] [place] [address] Care Team Providers Name Role Phone Berkley Madrigal MD Primary Care Provider Encounter Details Date Type Department Care Team Description 05/10/2017 Office Visit Hematology/Oncology Bernardo Salmon MD [facility] DR HEMATOLOGY/[place] [address] Chronic lymphocytic at [facility] Nilam So APRN [facility] DR HEMATOLOGY/[place] [address] [place] [phone] Social History Tobacco Use Types Packs/Day [...] Sign Reading Time Taken Comments Blood Pressure 150/75 05/10/2017 12:54 PM EST Pulse 91 05/10/2017 12:54 PM EST Temperature 36.4 ??C (97.5 ??F) 05/10/2017 12:54 PM EST Respiratory Rate 16 05/10/2017 12:54 PM EST Oxygen Saturation 96% 05/10/2017 12:54 PM EST Inhaled Oxygen Concentration - - Weight 80.3 kg (177 lb) 05/10/2017 12:54 PM EST Height 163.8 cm (5' 4.49) 05/10/2017 12:54 PM EST Body Mass Index 29.92 05/10/2017 12:54 PM EST documented in this encounter Progress Notes Nilam So, CONTINUOUS IMPROVEMENT ENGINEER - 05/10/2017 1:00 PM EST Subjective: Patient ID: Carol Keller is a 67 y.o. female here for f/u of CLL Patient Active Problem List Diagnosis ??? Cerebral infarction Bilateral MCA territory left>right [...] only Pneumovax 2014 HPI Anahi is doing great - she is looking forward to having her cataract done soon - this has been bothering her. She otherwise has been well with no recent infections. Denies any new lumps or bumps. She does have menopausal sweats but no drenching night sweats. Energy is good, appetite is good - she is enjoying her fpc - loves her puppy Buttons. Her son is moving closer to [place]. She still hopesto go see her daughter overseas - but not until the fall. Review of Systems Constitutional: Negative. HENT: Negative. Eyes: Positive for visual disturbance. Respiratory: Negative. Negative for cough and shortness [...] affect. Lab Results Component Value Date WBC 105.2 04/28/2017 HGB 14.2 04/28/2017 HCT 42.0 01/30/2017 MCV 92.3 01/30/2017 PLATELET 174 04/28/2017 Chemistry Component Value Date/Time NA 143 01/30/2017 1412 K 4.0 01/30/2017 1412 CL 102 01/30/2017 1412 CO2 28 01/30/2017 1412 BUN 23 (H) 01/30/2017 1412 CREATININE 0.80 04/28/2017 Component Value Date/Time CALCIUM 9.2 01/30/2017 1412 ALKPHOS 70 01/30/2017 1412 AST 20 01/30/2017 1412 ALT 20 01/30/2017 1412 BILITOT 0.3 01/30/2017 1412 BP 150/75 (Patient Position: Sitting) Pulse 91 Temp 36.4 ??C (97.5 ??F) (Oral) Resp 16 Ht 163.8 cm (5' 4.49) Wt 80.3 kg (177 lb) SpO2 96% BMI 29.92 kg/m2 Assessment and Plan: Assessment: CLL. Counts stable, WBC climbing since she stopped her steriod eye drops - but still notback to her previous high. No worrisome or symptomatic adenoapthy. No B symptoms, ALC doubling time has actually decreased over the past 6 months - this does coincide with steriod eye drop use. She hashad no recurrent infections, no signs of AIHA or ITP. No concern for transformation. No indication for treatment at this time. ?? Reviewed CLL and indications for therapy, Also reviewed inherent increase risk for infection. ?? Influenza = due this fall - awaiting clinics ?? Pneumococcal - UTD- 2014 ?? 2. s/p saddle PE and CVA's - doing well - doing well on apixaban - aware of need to hold prior to surgery/procedures other than cataract surgery. Per Dr. Medina, at that time can consider decreasingto 2.5 mg BID. Reviewed risk of bleeding/thrombosis. ? Plan: We will continue to monitor in hematology clinic. Reviewed CLL and indications for treatment. ??Carol??will return to hematology in 3??months. I will contninue to see her in [facility]. she??will call if there are any problems before then. documented in this encounter Plan of Treatment Upcoming Encounters Date Type Specialty Care Team Description 02/11/2022 Scheduled View Only Hematology and Ángel Fischer Oncology [facility] DR UMANA [place] [id number] (Wo rk) 02/11/2022 TH Visit (TeleHealth) Hematology Ángel Kimbrough Oncology [facility] DR UMANA [place], [place] [address] (Wo rk) 02/11/2022 Infusion Hematology and Oncology 02/11/2022 Office Visit Hematology and Jazzy Armendariz R D Oncology [facility] CESAR HEMATOLOGY AND ONCOLOGY [place], [place] [address] (Wo rk) 02/22/2022 TH Visit (TeleHealth) Hematology and Yaquelin Celis Oncology E, [facility] HEMATOLOGY AND ONCOLOGY [place], [place] [address] (Wo rk) 02/25/2022 Office Visit Ángel Hill Oncology [facility] ONCOLOGY [place], [place] [address] (Wo rk) 02/25/2022 Infusion Hematology and Oncology 03/10/2022 Scheduled View Only Obstetrics and Nurse, Julian COLEMAN gas main fitter 03/10/2022 Office Visit Obstetrics and Shazia Whitley, Gynecology [facility] UROGYNECOLOGY [place], [place] [address] (Wo rk) 03/11/2022 Office Visit Hematology and Ángel Fischer MD [facility] [place] [address] Oncology [address]lyss[address] Joseph[address] MEDICAL ONCOLOGY [place], [place] [phone] 03/11/2022 Infusion Hematology and Oncology 03/25/2022 Office Visit Hematology and Alyssa Joseph, Oncology [address] ONCOLOGY [place], [place] [phone] (Wo rk) 03/25/2022 Infusion Hematology and Oncology 03/31/2022 Office Visit Hematology and Alan Livingston M D [facility] DR HEMATOLOGY/[place] [address] [facility] [address] 04/08/2022 Office Visit Hematology and Ángel Fischer MD [facility] [place] [address] Oncology [address] MEDICAL ONCOLOGY [place], [place] [phone] 04/08/2022 Infusion Hematology and Oncology documented as of this encounter Procedures Procedure Name Priority Date/Time Associated Diagnosis Comme nts CREATININE Routine 04/28/2017 Results for thi s procedure are in the resu lts section. CBC (WITH DIFF) Routine 04/28/2017 Results for this procedure are in the resu lts section. documented in this encounter Results Creatinine (04/28/2017) P athologist Signature Creatinine 0.80 Specimen (Source) Anatomical Location Collection Method / Collectio n Time Received Time / Laterality Volume Blood specimen 04/28/2017 (specimen) Carol Salmon MD CHEMISTRY ORDERABLES CBC (with Diff) (04/28/2017) P athologist Signature WBC 105.2 Hemoglobin 14.2 Platelets 174 Neutr Abs (ANC) 4.21 Specimen (Source) Anatomical Location Collection Method / Collectio n Time Received Time / Laterality Volume Blood specimen 04/28/2017 (specimen) Carol Salmon MD HEMATOLOGY ORDERABLES documented in this encounter Visit Diagnoses Diagnosis Chronic lymphocytic leukemia Chronic lymphoid leukemia, without menti on of having achieved remission documented in this encounter Care Teams Neurology Stroke Physician Relationship Specialty Start Date End Date Berkley Madrigal MD PCP - General 04/13/10 02/15/18 AYLEEN Katarina [address] [place] [address] documented as of this encounter
--- OUTSIDE RECORDS SUMMARY | 2022-02-11 01:09 | XMS_ITS | Encounter Summary ---
:1950 Author Organization [facility] [place] [address] Care Team Providers Name Role Phone Berkley Madrigal MD Primary Care Provider Reason for Visit Reason Onset Date Comments Follow-up 07/26/2017 Encounter Details Date Type Department Care Team Description 07/26/2017 Telephone Ophthalmology at [facility] Venkata Swartz MD Follow[facility]up [facility] [place] [phone] OPHTHALMOLOGY DEPT [phone] [place], [place] [address] (Wo rk) Social History Tobacco [...] this encounter Miscellaneous Notes Telephone Encounter - Samreen Graves - 07/31/2017 9:59 AM EDT Patient Scheduled Telephone Encounter - Samreen Graves - 07/26/2017 11:00 AM EST I have called and left a message for patient to call and schedule an appointment. Follow up retina 1 year for DFE/OCT documented in this encounter Plan of Treatment Upcoming Encounters Date Type Specialty Care Team Description 02/11/2022 Scheduled View Only Hematology Ángel Kimbrough Oncology [facility] DR [place], [place] [address] (Wo rk) 02/11/2022 TH Visit (TeleHealth) Hematology Ángel Kimbrough , Oncology [facility] ONCOLOGY [place], [place] [address] (Wo rk) 02/11/2022 Infusion Hematology and Oncology 02/11/2022 Office Visit Hematology and Jazzy Armendariz R D [facility] DRIVE HEMATOLOGY AND ONCOLOGY [place], [place] [address] (Wo rk) 02/22/2022 TH Visit (TeleHealth) Hematology and Yaquelin Celis Oncology E, [facility] HEMATOLOGY AND ONCOLOGY [place], [place] [address] (Wo rk) 02/25/2022 Office Visit Hematology and Ángel Fischer Oncology [facility] ONCOLOGY [place], [place] [address] (Wo rk) 02/25/2022 Infusion Hematology and Oncology 03/10/2022 Scheduled View Only Obstetrics and Nurse, Oboneal COLEMAN, prepress specialist 03/10/2022 Office Visit Obstetrics and Shazia Whitley Gynecology [facility] UROGYNECOLOGY [place], [place] [address] (Wo rk) 03/11/2022 Office Visit Hematology and Ángel Fischer MD [facility] [place] [address] Oncology Alyss[address] Joseph[address] MEDICAL ONCOLOGY [place], [place] [phone] 03/11/2022 Infusion Hematology and Oncology 03/25/2022 Office Visit Hematology and Alyssa Joseph, Oncology [address] MEDICAL ONCOLOGY [place], [place] [phone] (Wo rk) 03/25/2022 Infusion Hematology and Oncology 03/31/2022 Office Visit Hematology and Alan Livingston M D [facility] DR HEMATOLOGY/[place] [address] Oncology Nilam So, [facility] DR HEMATOLOGY/[place] [address] 04/08/2022 Office Visit Hematology and Ángel Fischer MD [facility] [place] [address] Oncology Alyss[address] Joseph[address] MEDICAL ONCOLOGY [place], [place] [phone] 04/08/2022 Infusion Hematology and Oncology documented as of this encounter Visit Diagnoses Not on filedocumented in this encounter Care Teams Manager Forensic Relationship Specialty Start Date End Date Berkley Madrigal MD PCP - General 04/13/10 02/15/18 AYLEEN Bray [address] [place], [place] [phone] documented as of this encounter
--- OUTSIDE RECORDS SUMMARY | 2022-02-11 01:09 | XMS_ITS | Encounter Summary ---
:1950 Author Organization [facility] [place] [address] Care Team Providers Name Role Phone Berkley Madrigal MD Primary Care Provider Encounter Details Date Type Department Care Team Description 08/09/2017 Office Visit Hematology/Oncology Bernardo Salmon MD [facility] DR HEMATOLOGY/[place] [address] Chronic lymphocytic at [facility] Nilam So APRN [facility] DR HEMATOLOGY/[place] [address] [place] [phone] Social History Tobacco Use Types Packs/Day [...] Sign Reading Time Taken Comments Blood Pressure 142/66 08/09/2017 1:16 PM EDT Pulse 74 08/09/2017 1:16 PM EDT Temperature 36.4 ??C (97.5 ??F) 08/09/2017 1:16 PM EDT Respiratory Rate 18 08/09/2017 1:16 PM EDT Oxygen Saturation 98% 08/09/2017 1:16 PM EDT Inhaled Oxygen Concentration - - Weight 81.2 kg (179 lb) 08/09/2017 1:16 PM EDT Height - - Body Mass Index 30.26 05/10/2017 12:54 PM EST documented in this encounter Progress Notes Nilam So, CONTINUITY CLERK - 08/09/2017 1:30 PM EDT Subjective: Patient ID: Carol Keller [...] HPI Anahi is doing well - she had her second cataract done - she was on steriod gtts for May with this. Her vision is improved. She remains on Eliquis low dose 2.5 mg BID. She is hoping for bladder surgery later this year. Her energy has been good. No recent infections. No new lumps or bumps. She is really without concerns today. Review of Systems Constitutional: [...] No inguinal and no supraclavicular adenopathy present. Small left sc fullness Neurological: She is alert and oriented to person, place, and time. Skin: Skin is warm and dry. Psychiatric: She has a normal mood and affect. Lab Results Component Value Date WBC 107.2 07/31/2017 WBC 107.2 07/31/2017 HGB 13.5 07/31/2017 HCT 43.8 07/31/2017 MCV 92.3 01/30/2017 PLATELET 176 07/31/2017 Chemistry Component Value Date/Time NA 143 01/30/2017 1412 K 4.0 01/30/2017 1412 CL 102 01/30/2017 1412 CO2 28 01/30/2017 1412 BUN 13 07/31/2017 CREATININE 0.80 07/31/2017 Component Value Date/Time CALCIUM 9.2 01/30/2017 1412 ALKPHOS 70 01/30/2017 1412 AST 20 01/30/2017 1412 ALT 20 01/30/2017 1412 BILITOT 0.3 01/30/2017 1412 Lab Results Component Value Date LDH 474 07/31/2017 BP 142/66 (Patient Position: Sitting) Pulse 74 Temp 36.4 ??C (97.5 ??F) (Oral) Resp 18 Wt 81.2 kg (179 lb) SpO2 98% BMI 30.26 kg/m2 Assessment and Plan: 1. Assessment: CLL. Counts stable, No worrisome or symptomatic adenoapthy. No B symptoms, No recurrent infections, no signs of AIHA or ITP. No concern for transformation. No indication for treatment atthis time. Reviewed CLL and indications for therapy, Also reviewed inherent increase risk for infection. Influenza = UTD Pneumococcal - UTD 2. 2.??s/p saddle PE and CVA's - doing well - doing well on apixaban - aware of need to hold prior to surgery/procedures. other than cataract surgery. Plan: We will continue to monitor in hematology clinic. Reviewed CLL and indications for treatment. Carol will return to hematology in 3 months. she will call if there are any problems before then. documented in this encounter Plan of Treatment Upcoming Encounters Date Type Specialty Care Team Description 02/11/2022 Scheduled View Only Hematology and Ángel Fischer Oncology [facility] ONCOLOGY [place], [place] [address] (Wo rk) 02/11/2022 TH Visit (TeleHealth) Hematology Ángel Kimbrough Oncology [facility] [address] UMANA [place], [place] [address] (Wo rk) 02/11/2022 Infusion Hematology and Oncology 02/11/2022 Office Visit Hematology and Jazzy Armendariz R D [facility] HEMATOLOGY AND ONCOLOGY [place], [place] [address] (Wo rk) 02/22/2022 TH Visit (TeleHealth) Hematology and Yaquelin Celis, [facility] HEMATOLOGY AND ONCOLOGY [place], [place] [address] (Wo rk) 02/25/2022 Office Visit Hematology Ángel Kimbrough Oncology [facility] [address] UMANA [place], [place] [address] (Wo rk) 02/25/2022 Infusion Hematology and Oncology 03/10/2022 Scheduled View Only Obstetrics and NurseJulian II, business continuity manager 03/10/2022 Office Visit Obstetrics and Shazia Whitley, Gynecology [facility] UROGYNECOLOGY [place], [place] [address] (Wo rk) 03/11/2022 Office Visit Ángel Hill MD [facility] [place] [address] Oncology Alyssa Joseph[address] [place] [address] 03/11/2022 Infusion Hematology and Oncology 03/25/2022 Office Visit Hematology and Alyssa Joseph, Oncology [address] MEDICAL ONCOLOGY [place], [place] [phone] (Wo rk) 03/25/2022 Infusion Hematology and Oncology 03/31/2022 Office Visit Hematology and Alan Livingston M D [facility] DR HEMATOLOGY/[place] [address] Oncology Nilam So, [facility] DR HEMATOLOGY/[place] [address] 04/08/2022 Office Visit Hematology and Ángel Fischer MD [facility] [place] [address] Oncology Alyssa Joseph, [address] MEDICAL ONCOLOGY [place], [place] [phone] 04/08/2022 Infusion Hematology and Oncology documented as of this encounter Procedures Procedure Name Priority Date/Time Associated Diagnosis Comme nts CBC (WITH DIFF) Routine 07/31/2017 Results for this procedure are i n the results section . LACTATE DEHYDROGENASE Routine 07/31/2017 Result s for this procedure are i n the results section . COMPREHENSIVE METABOLIC Routine 07/31/2017 Resu lts for this PANEL (NON-FASTING) procedur e are in the results section . documented in this encounter Results Lactate Dehydrogenase (07/31/2017) athologist Signature LDH 474 Specimen (Source) Anatomical Location Collection Method / Collectio n Time Received Time / Laterality Volume Blood specimen 07/31/2017 (specimen) Nilam So [facility] CHEMISTRY ORDERABLES Comprehensive metabolic panel (non-fasting) (07/31/2017) athologist Signature BUN 13 Creatinine 0.80 Specimen (Source) Anatomical Location Collection Method / Collectio n Time Received Time / Laterality Volume Blood specimen 07/31/2017 (specimen) Nilam So APRN CHEMISTRY ORDERABLES CBC (with Diff) (07/31/2017) P athologist Signature WBC 107.2 Hemoglobin 13.5 Hematocrit 43.8 Platelets 176 Neutr Abs (ANC) 9.64 Specimen (Source) Anatomical Location Collection Method / Collectio n Time Received Time / Laterality Volume Blood specimen 07/31/2017 (specimen) Nilam So APRN HEMATOLOGY ORDERABLES documented in this encounter Visit Diagnoses Diagnosis Chronic lymphocytic leukemia Chronic lymphoid leukemia, without menti on of having achieved remission documented in this encounter Care Teams Content Management Specialist Relationship Specialty Start Date End Date Berkley Madrigal MD PCP - General 04/13/10 02/15/18 AYLEEN Bray [address] [place] [address] documented as of this encounter
--- OUTSIDE RECORDS SUMMARY | 2022-02-11 01:09 | XMS_ITS | Encounter Summary ---
:1950 Author Organization [facility] Address [facility] [address] [place] [address] Care Team Providers Name Role Phone Berkley Madrigal MD Primary Care Provider Reason for Visit Reason Onset Date Comments Labs Only 11/27/2017 critical lab Encounter Details Date Type Department Care Team Description 11/27/2017 Telephone Hematology/Oncology at Maddie Richardson RN Labs Only (critical lab) [address] [phone] Social History Tobacco Use Types [...] Telephone Encounter - Maddie Richardson RN - 11/27/2017 12:01 PM EDT White count 116.9, Nilam So BUSINESS APPLICATIONS ANALYST notified. She will see her December 06, 2017. documented in this encounter Plan of Treatment Upcoming Encounters Date Type Specialty Care Team Description 02/11/2022 Scheduled View Only Hematology and Ángel Fischer Oncology [facility] ONCOLOGY [place], [place] [address] (Shana hewitt) 02/11/2022 TH Visit (TeleHealth) Hematology Ángel Kimbrough Oncology [facility] DR UMANA [place], [place] [address] (Shana hewitt) 02/11/2022 Infusion Hematology and Oncology 02/11/2022 Office Visit Hematology and Jazzy Armendariz R D Oncology [facility] DRIVE HEMATOLOGY AND ONCOLOGY [place], [place] [address] (Shana hewitt) 02/22/2022 TH Visit (TeleHealth) Hematology and Yaquelin Celis Oncology E, [facility] DR HEMATOLOGY AND ONCOLOGY [place], [place] [address] (Wo rk) 02/25/2022 Office Visit Hematology and Ángel Fischer Oncology [facility] ONCOLOGY [place], [place] [address] (Wo rk) 02/25/2022 Infusion Hematology and Oncology 03/10/2022 Scheduled View Only Obstetrics and Nurse, Julian COLEMAN, gallery or museum curator 03/10/2022 Office Visit Obstetrics and Shazia Whitley, Gynecology [facility] UROGYNECOLOGY [place], [place] [address] (Wo rk) 03/11/2022 Office Visit Hematology and Ángel Fischer MD [facility] [place] [address] Oncology Alyssa Joseph[address] MEDICAL ONCOLOGY [place], [place] [phone] 03/11/2022 Infusion Hematology and Oncology 03/25/2022 Office Visit Hematology and Alyssa Joseph Oncology [address] MEDICAL ONCOLOGY [place], [place] [phone] (Wo rk) 03/25/2022 Infusion Hematology and Oncology 03/31/2022 Office Visit Hematology and Alan Livingston M D [facility] HEMATOLOGY/[place] [address] Oncology Nilam So, [facility] HEMATOLOGY/[place] [address] 04/08/2022 Office Visit Hematology and Ángel Fischer MD [facility] [place] [address] Oncology Alyssa Joseph, INSTRUCTOR CREELER [address] [place] [address] DR MEDICAL ONCOLOGY [place], [place] [address] 04/08/2022 Infusion Hematology and Oncology documented as of this encounter Procedures Procedure Name Priority Date/Time Associated Diagnosis Comme nts CBC (WITH DIFF) Routine 11/27/2017 Results for this procedure are in the resu lts section. documented in this encounter Results CBC (with Diff) (11/27/2017) P athologist Signature WBC 116.9 Hemoglobin 13.3 Hematocrit 43.1 Platelets 173 Specimen (Source) Anatomical Location Collection Method / Collectio n Time Received Time / Laterality Volume Blood specimen 11/27/2017 (specimen) Historical Provider HEMATOLOGY ORDERABLES documented in this encounter Visit Diagnoses Not on filedocumented in this encounter Care Teams Rn Imaging Relationship Specialty Start Date End Date Berkley Madrigal MD PCP - General 04/13/10 02/15/18 AYLEEN D [address] [place], [place] [phone] documented as of this encounter
--- OUTSIDE RECORDS SUMMARY | 2022-02-11 01:09 | XMS_ITS | Encounter Summary ---
:1950 Author Organization [facility] [address] Care Team Providers Name Role Phone Berkley Madrigal MD Primary Care Provider Reason for Referral Diagnostic Test (Routine) - Closed Specialty Diagnoses / Procedures Referred By Contact Refer red To Contact Radiology Diagnoses Overflow incontinence Carol Wahl [facility] Rad Ct Scan Procedures CT Urogram [facility] [place] [address] [place] [address] Referral ID Status Reason Start Date Expiration Date Visits V isits Requested Authorized [id number] Closed Specialty 11/16/2017 11/16/2018 1 1 Service Requested Encounter Details Date Type Department Care Team Description 11/16/2017 Orders Only Urology at [facility] Carol Wahl Microscopic hematuria; [facility] MD Maria Teresa [place] [address] UROLOGY DEPT. [phone] [place], [place] [address] (Wo rk) Social History Tobacco [...] Scheduled View Only Hematology Ángel Kimbrough Oncology [facility] ONCOLOGY [place], [place] [address] (Wo rk) 02/11/2022 TH Visit (TeleHealth) Hematology and Ángel Fischer Oncology [facility] ONCOLOGY [place], [place] [address] (Wo rk) 02/11/2022 Infusion Hematology and Oncology 02/11/2022 Office Visit Hematology and Jazzy Armendariz R D Oncology [facility] DRIVE HEMATOLOGY AND ONCOLOGY [place], [place] 0[address] (Wo rk) 02/22/2022 TH Visit (TeleHealth) Hematology and Yaquelin Celis Oncology E, [facility] HEMATOLOGY AND ONCOLOGY [place], [place] [address] (Wo rk) 02/25/2022 Office Visit Hematology and Ángel Fischer Oncology [facility] ONCOLOGY [place], [place] [address] (Wo rk) 02/25/2022 Infusion Hematology and Oncology 03/10/2022 Scheduled View Only Obstetrics and Nurse, Julian COLEMAN, laboratory tester 03/10/2022 Office Visit Obstetrics and Shazia Whitley Gynecology [facility] UROGYNECOLOGY [place], [place] 0[address] (Wo rk) 03/11/2022 Office Visit Hector and Ángel Fischer MD [facility] [address] Oncology [address]lyssa Joseph[address] MEDICAL ONCOLOGY [place], [place] [phone] 03/11/2022 Infusion Hematology and Oncology 03/25/2022 Office Visit Hematology and Alyssa Joseph, Oncology [address] MEDICAL ONCOLOGY [place], [place] [phone] (Wo rk) 03/25/2022 Infusion Hematology and Oncology 03/31/2022 Office Visit Hematology and Alan Livingston M D [facility] DR HEMATOLOGY/[place] [address] Oncology Nilam So, OIL ANALYST [facility] DR HEMATOLOGY/[place] [address] 04/08/2022 Office Visit Hematology and Ángel Fischer MD [facility] [place] [address] Oncology Alyssa Joseph[address] [place] [address] 04/08/2022 Infusion Hematology and Oncology documented as of this encounter Results CT Urogram (11/28/2017 5:04 [...] characterize. Carol Wahl MD IMG CT ORDERABLES (ABNORMAL) Creatinine (11/28/2017 1:24 PM EDT) athologist Signature Creatinine 0.98 0.70 - [facility] 1.20 mg/dL [facility] Estimated GFR 59 (L) >=60 [facility] mL/min/1.7 [facility] 3 m?? [facility] Comment: The eGFR was calculated using the CKD-EP I equation. As with all creatinine based estimates of kidney function, eGFR values calculated with the CKD-EPI equation are not accurate in patients wi th acute kidney failure, extremes of body mass or the acutely ill. [email or web address] [email or web address] eGFR 69 >=60 mL/min/1.73 m?? [facility] Comment: The eGFR was calculated using the CKD-EP I equation. As with all creatinine based estimates of kidney function, eGFR values calculated with the CKD-EPI equation are not accurate in patients wi th acute kidney failure, extremes of body mass or the acutely ill. [email or web address] [email or web address] Specimen Anatomical Collection Method Collection Time Receive d Time (Source) Location / / Volume Laterality Blood specimen 11/28/2017 1:24 PM 018 1:49 (specimen) EDT PM EDT Resulting Agency Comment Spec In Lab Carol Wahl MD CHEMISTRY ORDERABLES Performing Organization Address City/State/ZIP [place] [address] documented in this encounter Visit Diagnoses Diagnosis Microscopic hematuria Overflow incontinence Overflow incontinence documented in this encounter Care Teams Uke Operator Relationship Specialty Start Date End Date Berkley Madrigal MD PCP - General 04/13/10 02/15/18 AYLEEN D [address] [place] [address] documented as of this encounter
--- OUTSIDE RECORDS SUMMARY | 2022-02-11 01:09 | XMS_ITS | Encounter Summary ---
:1950 Author Organization [facility] [place] [address] Care Team Providers Name Role Phone Berkley Madrigal MD Primary Care Provider Reason for Referral Surgical (Routine) - Closed Specialty Diagnoses / Procedures Referred By Contact Refer red To Contact Diagnoses Stress incontinence, female Carol Wahl MD Procedures Collagen Endoscopic Injection [facility] [place] [address] Referral ID Status Reason Start Date Expiration Date Visits V isits Requested Authorized [id number] Closed Consult, 11/28/2017 11/28/2018 1 1 Test & Treat Reason for Visit Surgical (Routine) - Closed Specialty Diagnoses / Procedures Referred By Contact Refer red To Contact Diagnoses Stress incontinence, female Carol Wahl MD Procedures Collagen Endoscopic Injection [facility] [place] [address] Referral ID Status Reason Start Date Expiration Date Visits V isits Requested Authorized [id number] Closed Consult, 11/28/2017 11/28/2018 1 1 Test & Treat Encounter Details Date Type Department Care Team Description 11/28/2017 Office Visit Urology at [facility] Carol Wahl Stress incontinence, female; [facility] MD Maria Teresa Mixed incontinence; Drive [facility] Urethral sphincter deficienc y, intrinsic (ISD) [place] [address] UROLOGY DEPT. [phone] [place], [place] [address] (Wo rk) Social History Tobacco [...] Sign Reading Time Taken Comments Blood Pressure 151/70 11/28/2017 1:50 PM EDT Pulse 87 11/28/2017 1:50 PM EDT Temperature - - Respiratory Rate - - Oxygen Saturation 98% 11/28/2017 1:50 PM EDT Inhaled Oxygen Concentration - - Weight - - Height - - Body Mass Index - - documented in this encounter Patient Instructions Patient InstructionsCarol Hdez RN - 11/28/2017 2:00 PM EDT Coaptite Care Instruction Sheet 1. After receiving [...] call the Urology Clinic at before 5pm. Return in 8 weeks for Coapatite injection documented in this encounter Progress Notes Carol Wahl MD - 11/28/2017 2:00 PM EDT See my last note 11/14/17 - Urinary Incontinence Follow Up - Female Reason for Visit: This is a female 67 y.o. seen at the request of Berkley Madrigal MD with a recurred cystocele. Notes from Berkley Madrigal MD on file have been received and reviewed. HPI Pt underwent a vaginal hysterectomy and an attempted cystocele repair which was then converted to a ? Modified MMK performed in [place], [place] 38 years ago. She reports about [...] stroke Review of Systems: General Health: good BODY COVERER - No headaches or loss of consciousness. [...] booked to see Dr. Prater in gynecology, [facility]. She will discuss a pessary with him. I will see her back for her cystoscopy which is being done for hematuria. If there is no significant issues with her bladder we will proceed with acoaptite injection at that time. She is here for a cysto for hematuria and for coaptitie if her cysto is negative. No obvious source of hematuria - Bladder neck closed with 2 syringes. documented in this encounter Procedure Notes Carol Wahl MD - 11/28/2017 2:00 PM EDTAssociated Order(s): COLLAGEN ENDOSCOPIC INJECTION Pre-Procedure Diagnose(s): Stress incontinence, female The patient was placed in the lithotomy position and prepped and draped in the usual fashion. Lidocaine gel was instilled into the urethra. Using an injection scope cystoscopy was performed. The cysto was normal. Next 1 cc of 1% lidocaine was injected at the level of the bladder neck. Coapatite was injected to close the bladder neck. A total of 2 Syringe(s) were used. The bladder neck was coapted at the close of the procedure. The scope was then removed. The patient tolerated the procedure well. Thepatient was able to void. The PVR was checked and was minimal/ The patient was given 1 cipro pre op.A return appointment was made for 8 weeks. The patient has been told to call if there are problems prior to that. documented in this encounter Plan of Treatment Upcoming Encounters Date Type Specialty Care Team Description 02/11/2022 Scheduled View Only Hematology Ángel Kimbrough Oncology [facility] ONCOLOGY [place], [place] [address] (Wo rk) 02/11/2022 TH Visit (TeleHealth) Ángel Hill Oncology [facility] DR UMANA [place], [place] [address] (Wo rk) 02/11/2022 Infusion Hematology and Oncology 02/11/2022 Office Visit Hematology and Jazzy Armendariz R D Oncology [facility] CESAR HEMATOLOGY AND ONCOLOGY [place], [place] [address] (Wo rk) 02/22/2022 TH Visit (TeleHealth) Hematology and Yaqulein Celis Oncology E, [facility] HEMATOLOGY K[place] UMANA [place], [place] [address] (Wo rk) 02/25/2022 Office Visit Ángel Hill Oncology [facility] ONCOLOGY [place], [place] [address] (Wo rk) 02/25/2022 Infusion Hematology and Oncology 03/10/2022 Scheduled View Only Obstetrics and Nurse, Obgymichelle II, paper sample clerk 03/10/2022 Office Visit Obstetrics and Shazia Whitley, Gynecology [facility] UROGYNECOLOGY [place], [place] [address] (Wo rk) 03/11/2022 Office Visit Hematology and Ángel Fischer MD [facility] [place] [address] On[address] MEDICAL ONCOLOGY [place], [place] [phone] 03/11/2022 Infusion Hematology and Oncology 03/25/2022 Office Visit Hematology and Alyssa Joseph, Oncology [address] MEDICAL ONCOLOGY [place], [place] [phone] (Wo rk) 03/25/2022 Infusion Hematology and Oncology 03/31/2022 Office Visit Hematology and Alan Livingston M D [facility] DR HEMATOLOGY/[place] [address] [facility]cology [facility] [address] 04/08/2022 Office Visit Hematology and Ángel Fischer MD [facility] [place] [address] Oncology [address] MEDICAL ONCOLOGY [place], [place] [phone] 04/08/2022 Infusion Hematology and Oncology documented as of this encounter Procedures Procedure Name Priority Date/Time Associated Comments Diagnosis COLLAGEN ENDOSCOPIC Routine 11/28/2017 6:27 PM Stress Re sults for this INJECTION EDT incontinence, procedure are in female the results section. documented in this encounter Results Collagen Endoscopic Injection (11/28/2017 6:27 PM EDT) Narrative Carol Wahl MD - 11/28/2017 6:27 PM EDT Carol Wahl MD ? 11/28/2017 ??6:27 PM The patient was placed in the lithotomy position and prepped and draped in the usual fashion. ??Lidocaine gel was instilled into the urethra. ??Using an ??injection scop e cystoscopy was performed. The cysto was normal. Next 1 cc of 1% l idocaine was injected at the level of the bladder neck. ??Coapati te was injected to close the bladder neck. ??A total of 2 ??Syrin ge(s) were used. ??The bladder neck was coapted at the close of the procedure. ??The scope was then removed. ??The patient to lerated the procedure well. ??The patient was able to void. ?? The PVR was checked and was minimal/ ?The patient was given 1 ci pro pre op. ??A return appointment was made for 8 ??weeks. The patient has been told to call if there are problems prior to that . 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 D [address] [place] [address] documented as of this encounter
--- OUTSIDE RECORDS SUMMARY | 2022-02-11 01:10 | XMS_ITS | Encounter Summary ---
:1950 Author Organization [facility] [place] [address] Care Team Providers Name Role Phone Berkley Madrigal MD Primary Care Provider Encounter Details Date Type Department Care Team Description 01/05/2017 Hospital Encounter Same Day Program at [facility] , Full thickness Zaria Roman MD macular hole of [facility] [address] Perkins OPHTHALMOLOGY [place], [place] DEPT [id number] [place], [place] [phone] [id number] Social History Tobacco Use Types Packs/Day Years [...] Sign Reading Time Taken Comments Blood Pressure 120/55 01/05/2017 5:00 PM EDT Pulse - - Temperature 36.6 ??C (97.9 ??F) 01/05/2017 4:24 PM EDT Respiratory Rate 92 01/05/2017 12:26 PM EDT Oxygen Saturation 98% 01/05/2017 5:52 PM EDT Inhaled Oxygen Concentration - - Weight 78 kg (172 lb) 01/05/2017 12:26 PM EDT Height - - Body Mass Index 29.15 09/16/2016 11:10 AM EDT documented in this encounter Discharge Instructions Discharge InstructionsCarolyn Flannery RN - 01/05/2017 4:49 PM EDT POST ANESTHESIA INSTRUCTIONS Go home, rest, use caution on stairs. Change positions slowly. Do not smoke if you are alone. Diet light to regular as tolerated today. If nausea occurs start with clear liquids and progress slowly. No driving, operating machinery, alcoholic beverages and no important decisions for 24 hours. Monitor IV site for signs and symptoms of infection: increasing redness, swelling, foul drainage, ifoccurs contact M.D. Patients who have had endotrachial tubes (this tube, used by anesthesia department, is passed down your throat after you are asleep, to ensure safe air passage during your operation). A sore throat is normal due to the tube. Cold liquids or soothing lozenges will help ease the discomfort. The generalized muscle aches are due to the medication given to you just before the tube is inserted. As the medication wears off, you may develop muscle soreness, which usually goes away in 12-24 hours. Patient InstructionsVenkata Page MD - 01/05/2017 4:21 PM EDT YOUR SURGERY WENT VERY WELL. KEEP PATCH ON OVERNIGHT BRING ALL DROPS TO APPOINTMENT TOMORROW POSITIONING: FACE DOWN 80-90% OF EVERY HOUR. THIS MEANS TAKE A 5-10 MIN BREAK EACH HOUR. OK TO MOVE AROUND LONG FACE IS DOWN. OK TO SLEEP ON RIGHT SIDE LONG FACE IS DOWN. AVOID FACE UP POSITION. DO NOT LIE ON YOUR BACK. MAY USE OVER THE COUNTER PAIN MEDICATIONS NEEDED (TYLENOL 1000 mg THREE TIMES DAILY ALTERNATING WITH IBUPROFEN 600 mg THREE TIMES DAILY ) AVOID HEAVY LIFTING, STRAINING, VALSALVA, RETCHING, VOMITING, COUGHING. documented in this encounter Medications at Time of Discharge Medication Sig Dispensed Refills Start Date End Date glucosamine sulfate 500 Take 500 mg by mouth 0 mg Tablet daily. Green Tea Extract 500 mg Take 500 mg by mouth 0 Cap daily. melatonin 3 mg Tab Take 3 mg by mouth 0 nightly as needed. multivitamin capsule Take 1 capsule by 0 mouth daily. cholecalciferol, Vitamin Take 2,000 mg by 0 D3, 50 mcg (2,000 unit) mouth daily. Capsule apixaban (ELIQUIS) 5 mg Take 2.5 mg by mouth 0 03/01/2017 Tablet 2 times daily. prednisoLONE acetate Place 1 drop into 0 03/01/2017 (PRED FORTE) 1 % Drops, the left eye 4 times Suspension daily. diclofenac (VOLTAREN) 1 % 2 times daily. 0 03/01/2017 GelIndications: OD Indications: OD cycloSPORINE (RESTASIS) Place 1 drop into 0 03/01/2017 0.05 % Dropperette the left eye 2 times daily. omeprazole (PRILOSEC) 20 Take 20 mg by mouth 0 09/07/2021 mg Capsule, Delayed daily. Release(E.C.) imipramine (TOFRANIL) 10 Take 10 mg by mouth 0 11/04/2019 mg tablet every morning. documented as of this encounter Progress Notes Carolyn Flannery RN - 01/05/2017 5:50 PM EDT Patient alert and oriented, vital signs stable. Reviewed discharge instructions; patient and Son Parker verbalized understanding. Copy of instruction sheet with contact numbers for questions/concerns. Pain assessment documented. Patient escorted out of department via wheelchair with son. Nani Ramos RN - 01/02/2017 10:12 AM EDT Patient Name: Carol Keller Patient Age: 66 y.o. Birthdate: 1950 Admit date: (Not on file) Attending Physician: Venkata Page MD Telephone conversation with patient who states she has instructions to stop her Eliquis after her last dose this evening and then this will be on hold for her surgery on 01/05/2017. documented in this encounter H&P Notes Venkata Page MD - 01/05/2017 2:13 PM EDT Patient Name: Carol Keller Patient Age: 66 y.o. Birthdate: 1950 Admit date: 01/05/2017 Attending Physician: Venkata Page MD History and Physical Reviewed. No changes noted. Ok to proceed with eye surgery as planned. Venkata Page MD documented in this encounter Miscellaneous Notes Op Note - Venkata Page MD - 01/05/2017 4:17 PM EDT [facility] Operative Note Patient Name: Carol Keller : [id number] MR#: [id number] Case Date: 01/05/2017 Surgeon: Surgeon(s) and Role: * Venkata Page MD - Primary Preoperative diagnosis: Full-thickness macular hole OS Postoperative diagnosis: Full-thickness macular hole OS Procedure(s) (LRB): VITRECTOMY, W/ MEMBRANE STRIPPING, INTRAOCULAR TAMPONADE (WRVU 16.33) (Left) 25 G PPV, ERM and ILM peel with triesence and ICG, 20% SF6 Gas Anesthesia: General Estimated Blood Loss: * No values recorded between 01/05/2017 3:18 PM and 01/05/2017 4:17 PM * Specimens removed during surgery: None Drains: Surgical Closure: Primary Closure - closure of ALL tissue levels during the original surgery regardless of wires, wickes, drains, or other devices extruding through the incision Disposition: awakened from anesthesia, extubated and taken to the recovery room in a stable condition, having suffered no apparent untoward event. Condition: doing well without problems CLARIFICATION NEEDED: BLANK INDICATIONS FOR PROCEDURE: This is a 66-year-old woman who was found to have a full-thickness macular hole in the left eye. In order to improve her vision, we elected to proceed with surgery as indicated. Risks, benefits, and alternatives were explained to the patient in great detail and she elected to proceed. DESCRIPTION OF PROCEDURE: Patient was brought to the Operating Suite where a timeout was done to confirm correct eye, correct patient, correct procedure. The left eye was prepped and draped in the normal sterile fashion for intraocular surgery and a wire lid speculum was used throughout the case to retract the eyelids. She had general anesthesia with endotracheal tube for anesthesia. Using the Floyd 25-gauge vitrectomy system, trocars were placed in the infratemporal, supratemporal, and supranasal quadrant, approximately 3.5 mm on the Limbus. An infusion cannula was placed in the infratemporal quadrant. Its position was confirmed by direct visualization with the light pipe before it was turned on. Using the vitrectomy and the light pipe, the eye was entered and a 360 core vitrectomy was performed noting that the posterior hyaloid was already detached from the posterior pole. The vitrectomy was carried out through the mid periphery as closely to the vitreous base as possible, noting that the patient was phakic. Using <___>, it confirmed that the posterior hyaloid was lifted and that the vitrectomy was carried out to the peripheral vitreous base. Following this, visualization was switched to the JETHRO magnifying macular contact lens and using ICG, the ILM and overlying ERM was stained twice during the course of surgery to allow for the epiretinal membrane as well as the underlying ILM to be peeled in a broad fashion over the central macular region. Full thickness macular hole was noted and the tangential traction from the membranes appeared to be relieved once they were peeled. Examination of the retina revealed several pigmented atrophic areas in the periphery and so a decision was made to perform prophylactic laser to these areas using the straight 25-gauge Endolaser. Scleral depressed exam under the microscope revealed no obvious breaks, tears, or holes. Once the laser was performed, an air-fluid exchange was performed and 20% SF6 gas was instilled into the eye for complete gas-air exchange. Each of the trocars were removed sequentially and the eye was left adequately pressurized, air and water tight. A drop of Vigamox and antibiotic ointment was placed on the eye followed by a patch and shield. She was awoken from anesthesia and immediately rolled onto her side for retinal tamponade. She knows to be face-down for approximately 1-week to give her macular hole the best chance of closing. She has a history of pulmonary embolism and is already on prophylactic blood thinning medication and we have discussed her need to be active and mobile in the postoperative period to prevent future blood clots from happening. Attestation: Case Date: 01/05/2017 I performed this procedure without the involvement of a resident. Venkata Page MD 01/05/2017 documented in this encounter Plan of Treatment Upcoming Encounters Date Type Specialty Care Team Description 02/11/2022 Scheduled View Only Hematology and Ángel Fischer Oncology [facility] ONCOLOGY [place], [place] [address] (Wo rk) 02/11/2022 TH Visit (TeleHealth) Hematology Ángel Kimbrough Oncology [facility] ONCOLOGY [place], [place] [address] (Wo rk) 02/11/2022 Infusion Hematology and Oncology 02/11/2022 Office Visit Hematology and Jazzy Armendariz [facility] AND ONCOLOGY [place], [place] [address] (Wo rk) 02/22/2022 TH Visit (TeleHealth) Hematology and Yaquelin Celis Oncology , [facility] HEMATOLOGY AND ONCOLOGY [place], [place] [address] (Wo rk) 02/25/2022 Office Visit Hematology and Ángel Fischer Oncology [facility] ONCOLOGY [place], [place] [address] (Wo rk) 02/25/2022 Infusion Hematology and Oncology 03/10/2022 Scheduled View Only Obstetrics and Nurse, Julian COLEMAN, rn acute 03/10/2022 Office Visit Obstetrics and Shazia Whitley, Gynecology [facility] UROGYNECOLOGY [place], [place] [address] (Wo rk) 03/11/2022 Office Visit Hematology Ángel Kimbrough MD [facility] [place] [address] Oncology Alyssa Joseph, [address] [place] [address] 03/11/2022 Infusion Hematology and Oncology 03/25/2022 Office Visit Hematology and Alyssa Joseph, Oncology [address] MEDICAL ONCOLOGY [place], [place] [phone] (Wo rk) 03/25/2022 Infusion Hematology and Oncology 03/31/2022 Office Visit Hematology and Alan Livingston M D [facility] DR HEMATOLOGY/[place] [address] Oncology Nilam So, [facility] DR HEMATOLOGY/[place] [address] 04/08/2022 Office Visit Hematology and Ángel Fischer MD [facility] [place] [address] Oncology Alyssa Joseph[address] MEDICAL ONCOLOGY [place], [place] [phone] 04/08/2022 Infusion Hematology and Oncology documented as of this encounter Procedures Procedure Name Priority Date/Time Associated Diagnosis Comme nts VITRECTOMY, W/ MEMBRANE 01/05/2017 2:40 PM Full thickn ess macular STRIPPING, INTRAOCULAR EDT hole of left eye TAMPONADE (WRVU 16.33) documented in this encounter Visit Diagnoses Diagnosis 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 documented in this encounter Administered Medications Inactive Administered Medications - up to 3 most recent administrations Medication Order MAR Action Action Date Dose Rate Site acetaminophen (TYLENOL) tablet Given 01/05/2017 5:38 PM EDT 1,00 0 mg 1,000 mg 1,000 mg, Oral, EVERY 6 HOURS PRN, Starting on Marilyn 01/05/17 at 1616, Until Marilyn 01/05/17 at 1953, Pain, for MODERATE pain (4-6), Do not exceed 4,000 mg in 24 hours, Routine lactated Ringers infusion 1,000 mL New Bag 01/05/2017 2:36 PM EDT 1,000 mL, at 100 mL/hr, Intravenous, CONTINUOUS, Starting on Marilyn 01/05/17 at 1245, Until Marilyn 01/05/17 at 1740, Day of Surgery (Day of Procedure) New Bag 01/05/2017 12:44 PM EDT 1,000 mLs 100 mL/hr moxifloxacin (VIGAMOX) 0.5 % ophthalmic Given 01/05/2017 12:45 P M EDT 1 drop solution 1 drop 1 drop, Left Eye, EVERY 5 MIN, 3 doses, First dose on Marilyn 01/05/17 at 1245, Last dose on Marilyn 01/05/17 at 1255, Day of Surgery (Day of Procedure), Routine Given 01/05/2017 12:36 PM EDT 1 drop Given 01/05/2017 12:30 PM EDT 1 drop PHENYLephrine (MYDFRIN) 2.5 % ophthalmic Given 01/05/2017 12:45 PM EDT 1 drop solution 1 drop 1 drop, Left Eye, EVERY 5 MIN, 3 doses, First dose on Marilyn 01/05/17 at 1245, Last dose on Marilyn 01/05/17 at 1255, Day of Surgery (Day of Procedure), Routine Given 01/05/2017 12:36 PM EDT 1 drop Given 01/05/2017 12:30 PM EDT 1 drop prednisoLONE acetate (PRED FORTE) 1 % Given 01/05/2017 12:30 PM EDT 1 drop ophthalmic suspension 1 drop 1 drop, Left Eye, ONCE, 1 dose, On Marilyn 01/05/17 at 1245, Day of Surgery (Day of Procedure), Routine prochlorperazine (COMPAZINE) injection 1 0 mg 10 mg, Intravenous, EVERY 6 HOURS PRN, S tarting on Marilyn 01/05/17 at 1635, Until Marilyn 01/05/17 at 1953, Nausea, Vomiting, If multiple anti emetics are ordered, use ondansetron first. If ondansetron ineffe ctive use prochlorperazine. , Recovery (Recovery-Hospital Unit), Routine prochlorperazine (COMPAZINE) tablet 10 m g 10 mg, Oral, EVERY 6 HOURS PRN, Starting on Marilyn 01/05/17 at 1635, Until Marilyn 01/05/17 at 1953, Nausea, Vomiting, If multipl e antiemetics are ordered, use ondansetron first. If ondansetron ineffective use pr ochlorperazine. PO Preferred. If patient unable to take PO, may give IV if ordered., Recovery ( Recovery-Hospital Unit), Routine tropicamide (MYDRIACYL) 1 % ophthalmic Given 01/05/2017 12:45 PM EDT 1 drop solution 1 drop 1 drop, Left Eye, EVERY 5 MIN, 3 doses, First dose on Marilyn 817 at 1245, Last dose on Marilyn 01/05/17 at 1255, Day of Surgery (Day of Procedure), Routine Given 01/05/2017 12:37 PM EDT 1 drop Given 01/05/2017 12:30 PM EDT 1 drop documented in this encounter Active and Recently Administered Medications Times are shown in EDT. Scheduled Medication Order 01/03/2017 01/04/2017 01/05/2017 moxifloxacin (VIGAMOX) 0.5 % ophthalmic solution 1 drop (COMPLET ED) 1230 (Given - Provider: Ashley Chung RN)1236 (Given - Provider: Ashley Chung RN)1245 (Given - Provider: Ashley Chung RN) 1 drop, Left Eye, EVERY 5 MIN, 3 doses, First dose on Marilyn 817 at 1245, Last dose on Mariyln 01/05/17 at 1255, Day of Surgery (Day of Procedure), Routine PHENYLephrine (MYDFRIN) 2.5 % ophthalmic solution 1 drop (COMPLE QUINN) 1230 (Given - Provider: Ashley Chung RN)1236 (Given - Provider: Ashley Chung RN)1245 (Given - Provider: Ashley Chung RN) 1 drop, Left Eye, EVERY 5 MIN, 3 doses, First dose on Marilyn 817 at 1245, Last dose on Marilyn 817 at 1255, Day of Surgery (Day of Procedure), Routine prednisoLONE acetate (PRED FORTE) 1 % ophthalmic suspension 1 drop (COMPLETED) 1230 (Given - Provider: Ashley Chung RN) 1 drop, Left Eye, ONCE, 1 dose, Marilyn 817 at 1245, Day of Surgery (Day of Procedure), Routine sodium chloride 0.9 % flush 5 mL 5 mL, Intravenous, 2 TIMES DAILY, First dose on Marilyn 01/05/17 at 2100, Until Discontinued, Routine tropicamide (MYDRIACYL) 1 % ophthalmic solution 1 drop (COMPLETE D) 1230 (Given - Provider: Ashley Chung, ALLIE)1237 (Given - Provider: Ashley Chung, ALLIE)1245 (Given - Provider: Ashley Chung RN) 1 drop, Left Eye, EVERY 5 MIN, 3 doses, First dose on Marilyn 01/05/17 at 1245, Last dose on Marilyn 01/05/17 at 1255, Day of Surgery (Day of Procedure), Routine Continuous Medication Order 01/03/2017 01/04/2017 01/05/2017 lactated Ringers infusion 1,000 mL (CANCELED) 1244 (New Bag - Provider: Ashley Chung RN)1436 (New Bag - Provider: Domenica Thacker CRNA)1531 (Anesthesia Volume Adjustment - Provider: Domenica Thacker CRNA) 1,000 mL, at 100 mL/hr, Intravenous, CON TINUOUS, Starting Marilyn 01/05/17 at 1245, Until Marilyn 01/05/17 at 1740, Day of Surgery (Day of Procedure) PRN Medication Order 01/03/2017 01/04/2017 01/05/2017 acetaminophen (TYLENOL) tablet 1,000 mg 1738 (Given - Provider: Carolyn Flannery RN) 1,000 mg, Oral, EVERY 6 HOURS PRN, Start ing Marilyn 01/05/17 at 1616, Until Marilyn 01/05/17 at 1953, Pain, for MODERATE pain (4-6), Do not exceed 4,000 mg in 24 hours, Routine balanced salt (BSS PLUS) irrigation solution (CANCELED) 1438 (Given - Provider: Venkata Page MD) ONCE PRN, Starting Marilyn 01/05/17 at 1438, Until Marilyn 01/05/17 at 1953, Intra- Operative (Intra-Procedure), Routine balanced salt (BSS) irrigation solution (CANCELED) 1438 (Given - Provider: Venkata Page MD) ONCE PRN, Starting Marilyn 01/05/17 at 1438, Until Marilyn 01/05/17 at 1953, Intra- Operative (Intra-Procedure), Routine EPINEPHrine injection solution (CANCELED) 1439 (Given - Provider: Zaria Og RN) ONCE PRN, Starting Mon01/05/17 at 1439, Until Mon01/05/17 at 1952, Intra- Operative (Intra-Procedure), Routine hydroxypropyl cellulose ((HYPROMELLOSE; OCUCOAT)) 2 % ophthalmic insert (CANCELED) 152 (Given - Provid er: Venkata Page MD)1558 (Given - Provider: Venkata Page MD) ONCE PRN, Starting Mon01/05/17 at 1523, Until Marilyn 01/05/17 at 1952, Intra- Operative (Intra-Procedure), Routine indocyanine green (IC-GREEN) injection (CANCELED) 153 (Given - Provider: Venkata Page MD - Comment: instilled in ey for 1 min to stain) ONCE PRN, Starting Mon01/05/17 at 1534, Until Mon01/05/17 at 1952, Intra- Operative (Intra-Procedure), Routine lidocaine (XYLOCAINE) 10 mg/mL (1 %) injection 3 mg 3 mg (0.3 mL), Subcutaneous, ONCE PRN, 1 dose, Starting Mon01/05/17 at 1616, Until Mon01/05/17 at 1952, for discomfort with PIV insertion, Routine moxifloxacin (VIGAMOX) 0.5 % ophthalmic solution (CANCELED) 152 (Given - Provider: Venkata Page MD - Comment: post op) ONCE PRN, Starting Mon01/05/17 at 1523, Until Mon01/05/17 at 1952, Intra- Operative (Intra-Procedure), Routine zfxznyzi-fkwcthxjo-coqubegejoobb (DEXACI NE) 3.5 mg/g-10,000 unit/g-0.1 % ophthalmic ointment (CANCELED) 152 (Giv en - Provider: Venkata Page MD - Comment: 0.25 ml post op) ONCE PRN, Starting Mon01/05/17 at 1522, Until Mon01/05/17 at 1952, Intra- Operative (Intra-Procedure), Routine ondansetron (ZOFRAN) injection 4 mg (CANCELED) 161 (Given - Provider: Domenica Thacker CRNA) 4 mg, Intravenous, EVERY 30 MIN PRN, Sta rting Marilyn 8 at 1615, Until Marilyn 01/05/17 at 1740, Nausea, May repeat 4 mg once in 30 minutes. If multiple antiemetics ordered, use ondansetron first and if ineffective use prochlorperazine second and if ineffective use promethazine, PACU Recovery povidone-iodine 5 % ophthalmic solution (CANCELED) 1522 (Given - Provider: Venkata Page MD) ONCE PRN, Starting Marilyn 01/05/17 at 1523, Until Marilyn 01/05/17 at 1953, Intra- Operative (Intra-Procedure), Routine prochlorperazine (COMPAZINE) injection 10 mg(Linked Group 1) 10 mg, Intravenous, EVERY 6 HOURS PRN, S tarting Marilyn 01/05/17 at 1635, Until Marilyn 01/05/17 at 1953, Nausea, Vomiting, If multiple antiemetics are ordered, use ondansetron first. If ondansetron ineffectiv e use prochlorperazine. , Recovery (Recovery-Hospital Unit), R outine prochlorperazine (COMPAZINE) tablet 10 mg(Linked Group 1) 10 mg, Oral, EVERY 6 HOURS PRN, Starting Marilyn 01/05/17 at 1635, Until Marilyn 8 at 1953, Nausea, Vomiting, If multiple antiemetics are ordered, use ondansetron first. If ondansetron ineffective use p rochlorperazine. PO Preferred. If pat ient unable to take PO, may give IV if ordered., Recovery (Recovery-Hospital Unit), Routine sodium chloride 0.9 % flush 5-20 mL 5-20 mL, Intravenous, EVERY 1 MIN PRN, S tarting Marilyn 01/05/17 at 1616, Until Marilyn 8 at 1953, flush, Flush pertains to all indwelling lines. Flush per protocol found in the job aid using the link provided on this medication record., Routine tetracaine (PF) (PONTOCAINE) ophthalmic solution (CANCELED) 1522 (Given - Provider: Venkata Page MD - Comment: pre prep) ONCE PRN, Starting Marilyn 01/05/17 at 1523, Until Marilyn 01/05/17 at 195, Intra- Operative (Intra-Procedure), Routine Linked Groups Order Group 1: prochlorperazine (COMPAZINE) tablet 10 mgJump to med 10 mg, Oral, EVERY 6 HOURS PRN, Starting Marilyn 01/05/17 at 1635, Until Marilyn 01/05/17 at 195, Nausea, Vomiting
If multiple antiemetics are ordered, use ondansetron first. If on dansetron ineffective use prochlorperazi ne. PO Preferred. If patient unable to take PO, may give IV if ordered.
Recovery (Recovery- Hospital Unit), Routine Or prochlorperazine (COMPAZINE) injection 10 mgJump to med 10 mg, Intravenous, EVERY 6 HOURS PRN, S tarting Marilyn 01/05/17 at 1635, Until Marilyn 01/05/17 at 195, Nausea, Vomiting
If multiple antiemetics are ordered, use ondansetron first. &nbs p;If ondansetron ineffective use prochlo rperazine.
Recovery (Recovery- Hospital Unit), Routine documented in this encounter Care Teams Sueding Machine Operator Relationship Specialty Start Date End Date Berkley Madrigal MD PCP - General 04/13/10 02/15/18 [facility] Katarina [address] [place] [address] documented as of this encounter
--- OUTSIDE RECORDS SUMMARY | 2022-02-11 01:10 | XMS_ITS | Encounter Summary ---
:1950 Author Organization [facility] Address [facility] [place] [address] Care Team Providers Name Role Phone Berkley Madrigal MD Primary Care Provider Reason for Visit Reason Onset Date Comments Follow-up 10/24/2016 Patient called to the [facility] with Dr. Lundberg. She was Dr. Coffey's patient. Encounter Details Date Type Department Care Team Description 10/24/2016 Telephone Ophthalmology at [facility] Lorena Rey Follow-up (Patient [facility] Katarina Chacon MD [place] [address] [place] [address] Lundberg. She [phone] Coffey's OPHTHALMOLOGY DE PT. patient.) [place] [id number] (Wo rk) Social History Tobacco Use Types [...] this encounter Miscellaneous Notes Telephone Encounter - Alyssa Euceda - 10/25/2016 2:08 PM EDT Patient called, scheduled patient for 7.27.17 @ 2:30pm. Telephone Encounter - Samreen Graves - 10/24/2016 3:31 PM EDT I have called and left a message for patient to call and schedule an appointment. Ok to schedule in any Lundberg open slots. Telephone Encounter - Alyssa Euceda - 10/24/2016 3:14 PM EDT Patient called to schedule with Dr. Lundberg. She was Dr. Coffey's patient. She declined to reschedule back in July for follow up. Samreen- can you please call patient to schedule or let me know where I can add her on to Dr. Lundberg schedule? Thank you. documented in this encounter Plan of Treatment Upcoming Encounters Date Type Specialty Care Team Description 02/11/2022 Scheduled View Only Hematology and Ángel Fischer Oncology [facility] ONCOLOGY [place], [place] [address] (Wo rk) 02/11/2022 TH Visit (TeleHealth) Hematology Ángel Kimbrough Oncology [facility] ONCOLOGY [place], [place] 0[address] (Wo rk) 02/11/2022 Infusion Hematology and Oncology 02/11/2022 Office Visit Hematology and Jazzy Armendariz, R Katarina Oncology [facility] HEMATOLOGY AND ONCOLOGY [place], [place] 0[address] (Wo rk) 02/22/2022 TH Visit (TeleHealth) Hematology and Yaquelin Celis Oncology E, [facility] HEMATOLOGY AND ONCOLOGY [place], [place] 0375 (Wo rk) 02/25/2022 Office Visit Hematology Ángel Kimbrough Oncology [facility] ONCOLOGY [place], [place] 0375 (Wo rk) 02/25/2022 Infusion Hematology and Oncology 03/10/2022 Scheduled View Only Obstetrics and Nurse, Oboneal II, overage shortage and damage clerk 03/10/2022 Office Visit Obstetrics and Shazia Whitley Gynecology BLOOM CONVEYOR OPERATOR [facility] UROGYNECOLOGY [place], [place] 0375 (Wo rk) 03/11/2022 Office Visit Hematology and Ángel Fischer MD [facility] [place] [address] Oncology Alyss[address] Joseph[address] MEDICAL ONCOLOGY [place], [place] [address] 03/11/2022 Infusion Hematology and Oncology 03/25/2022 Office Visit Hematology and Alyssa Joseph, Oncology [address] MEDICAL ONCOLOGY [place], [place] [address] (Wo rk) 03/25/2022 Infusion Hematology and Oncology 03/31/2022 Office Visit Hematology and Alan Livingston M D [facility] DR HEMATOLOGY/[place] [address] Oncology [facility] [address] 04/08/2022 Office Visit Hematology and Ángel Fischer MD [facility] [place] [address] [address] ONCOLOGY [place], [place] [id number] 04/08/2022 Infusion Hematology and Oncology documented as of this encounter Visit Diagnoses Not on filedocumented in this encounter Care Teams High Lift Driver Relationship Specialty Start Date End Date Berkley Madrigal MD PCP - General 04/13/10 02/15/18 AYLEEN Katarina [address] [place], [place] [phone] documented as of this encounter
--- OUTSIDE RECORDS SUMMARY | 2022-02-11 01:10 | XMS_ITS | Encounter Summary ---
:1950 Author Organization [facility] [place] [address] Care Team Providers Name Role Phone Berkley Madrigal MD Primary Care Provider Encounter Details Date Type Department Care Team Description 09/26/2016 Office Visit Hematology and Alan Livingston M D [facility] DR HEMATOLOGY/[place] [address] Chronic lymphocytic Oncology at [facility] [place] [place] Nilam So APRN [facility] HEMATOLOGY/[place] [address] leukemia [facility] Rachel Simpson DO [facility] HEMATOLOGY/[place] [address] [place] [id number] Social History Tobacco Use Types Packs/Day Years [...] pay for the very basics like Not maria c bland hard 01/20/2022 food, housing, medical care, and [...] Sign Reading Time Taken Comments Blood Pressure 145/72 09/26/2016 3:41 PM EDT Pulse 68 09/26/2016 3:41 PM EDT Temperature 36.5 ??C (97.7 ??F) 09/26/2016 3:41 PM EDT Respiratory Rate 18 09/26/2016 3:41 PM EDT Oxygen Saturation 97% 09/26/2016 3:41 PM EDT Inhaled Oxygen Concentration - - Weight 77.6 kg (171 lb) 09/26/2016 3:41 PM EDT Height - - Body Mass Index 28.98 09/16/2016 11:10 AM EDT documented in this encounter Progress Notes Nilam So, TEACHER LIP READING - 09/26/2016 3:45 PM EDT Subjective: Patient ID: Carol Keller is a 66 y.o. 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 She has transitioned to apixaban. She still has numerous bruises to her abdomen from lovenox which are healing. Her leg hematoma also continues to resolve. 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 This has affeceted her work style. 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 She denies any new lumps or bumps, no recent infections. No night sweats. She is still awaiting more eye surgeries - wanting to change providers in opthomology. -Review of Systems Constitutional: Negative. Negative for chills and fever. HENT: Negative. Eyes: Positive for visual disturbance. Vision is still poor Respiratory: Negative. Negative for cough and shortness of breath. Cardiovascular: Negative. Negative for chest pain, palpitations and leg swelling. Gastrointestinal: Negative. Negative for constipation, diarrhea, nausea and vomiting. Genitourinary: Negative. Musculoskeletal: Negative. Skin: Negative. Neurological: Positive for speech difficulty. Negative for weakness and numbness. As above Hematological: Bruises/bleeds easily. Psychiatric/Behavioral: Negative. Objective: Physical Exam Constitutional: She is oriented to person, place, and time. She appears well- developed and well-nourished. No distress. HENT: Mouth/Throat: Oropharynx is clear and moist. No oropharyngeal exudate. Eyes: Pupils are equal, round, and reactive to light. Right eye - injected conjunctiva Neck: Normal range of motion. Neck supple. [...] adenopathy. Right cervical: Posterior cervical adenopathy present. Left cervical: Posterior cervical adenopathy present. She has no axillary adenopathy. Right: No inguinal and no supraclavicular adenopathy present. Left: No inguinal and no supraclavicular adenopathy present. 1cm bilat cervical nodes Neurological: She is alert and oriented to person, place, and time. Skin: Skin is warm and dry. Numerous healing eccymotic areas on abdomen/ pannus secondary to previous lovenox injection sites No pettechia, no new eccymotic areas Psychiatric: She has a normal mood and affect. Recent Results (from the past 72 hour(s)) Comprehensive metabolic panel (non-fasting) Result Value Ref Range Glucose Lvl 124 65 - 199 mg/dL BUN 16 8 - 18 mg/dL Creatinine 0.90 0.70 - 1.20 mg/dL Sodium 143 135 - 145 mmol/L Potassium 4.2 3.5 - 5.0 mmol/L Chloride 100 98 - 107 mmol/L CO2 29 22 - 31 mmol/L Anion Gap 14 5 - 15 mmol/L Calcium 9.3 8.5 - 10.5 mg/dL Total Protein 6.6 6.1 - 8.0 gm/dL Albumin 4.4 3.2 - 5.2 gm/dL AST 19 0 - 30 unit/L ALT 22 0 - 30 unit/L Alk Phos 67 40 - 104 unit/L Total Bilirubin <0.2 (L) 0.2 - 1.3 mg/dL Bili, Direct <0.1 0.0 - 0.3 mg/dL Estimated GFR >60 >=60 Lactate Dehydrogenase Result Value Ref Range LDH 204 110 - 220 unit/L Immunoglobulins, Quantitative Result Value Ref Range IgG 478 (L) 700 - 1600 mg/dL IgA 65 (L) 70 - 400 mg/dL IgM 27 (L) 40 - 230 mg/dL Hemogram Result Value Ref Range WBC 78.1 (CRIT) 4.0 - 9.5 x10(3)/mcL RBC 4.63 4.00 - 5.21 x10(6)/mcL Hemoglobin 13.8 11.7 - 15.5 gm/dL Hematocrit 44.0 35.7 - 45.8 % MCV 95.0 (H) 82.6 - 94.4 fL MCH 29.8 27.1 - 32.0 pg MCHC 31.4 (L) 31.7 - 35.0 gm/dL Platelets 206 145 - 357 x10(3)/mcL RDWSD 49.0 (H) 37.0 - 46.0 fL RDWCV 14.0 11.5 - 14.1 % MPV 11.0 7.6 - 12.9 fL nRBC % Auto 0.0 % nRBC Abs Auto 0.000 0.000 - 0.000 x10(3)/mcL Differential, Automated Result Value Ref Range Neutrophils % 5.9 % Neutr Abs (ANC) 4.60 1.70 - 6.10 x10(3)/mcL Lymphocytes % 92.7 % Lymphocytes Abs 72.4 (H) 0.9 - 3.2 x10(3)/mcL Monocytes % 0.9 % Monocyte Abs 0.7 0.3 - 0.9 x10(3)/mcL Eosinophils % 0.3 % Eosinophils Abs 0.2 0.0 - 0.4 x10(3)/mcL Basophils % 0.1 % Basophils Abs 0.1 0.0 - 0.1 x10(3)/mcL Immature Gran % 0.10 % Claudia Gran Abs 0.10 (H) 0.00 - 0.04 x10(3)/mcL Scan, Peripheral Blood Result Value Ref Range Plat Estimate Normal RBC Morphology Normal Smudge Cells Present BP 145/72 (Patient Position: Sitting) Pulse 68 Temp 36.5 ??C (97.7 ??F) (Temporal) Resp 18 Wt 77.6 kg (171 lb) SpO2 97% BMI 28.98 kg/m2 Assessment and Plan: 1. Assessment: CLL. Counts stable to improved., No worrisome or symptomatic adenoapthy. No B symptoms, ALC has been decreasing, No recurrent infections, no signs of AIHA or ITP. No concern for transformation. No indication for treatment at this time. Reviewed CLL and indications for therapy, Also reviewed inherent increase risk for infection. Influenza = UTD- will be due again this fall Pneumococcal - UTD 2. Recovery s/p saddle PE and CVA's - doing well - doing well on apixaban - aware of need to hold prior to surgery/procedures other than cataract surgery. Will continue on same dose through December of this year - at that time can consider decreasing to 2.5 mg BID as outlined by Dr. Ingram. Reviewed risk of bleeding/thrombosis. Plan: We will continue to monitor in hematology clinic. Reviewed CLL and indications for treatment. Carol will return to hematology in 4 months. she will call if there are any problems before then. documented in this encounter Plan of Treatment Upcoming Encounters Date Type Specialty Care Team Description 02/11/2022 Scheduled View Only Hematology and Ángel Fischer Oncology [facility] ONCOLOGY [place], [place] [address] (Wo rk) 02/11/2022 TH Visit (TeleHealth) Ángel Hill Oncology [facility] DR UMANA [place], [place] 0[address] (Wo rk) 02/11/2022 Infusion Hematology and Oncology 02/11/2022 Office Visit Hematology and Jazzy Armendariz R D Oncology [facility] HEMATOLOGY AND ONCOLOGY [place], [place] 0375 (Wo rk) 02/22/2022 TH Visit (TeleHealth) Hematology and Yaquelin Celis Oncology E, [facility] [place] HEMATOLOGY AND ONCOLOGY [place], [place] [address] (Wo rk) 02/25/2022 Office Visit Hematology Ángel Kimbrough Oncology [facility] DR [place], [place] [address] (Wo rk) 02/25/2022 Infusion Hematology and Oncology 03/10/2022 Scheduled View Only Obstetrics and Nurse, Julian COLEMAN, albacore fishing boat crewman 03/10/2022 Office Visit Obstetrics and Shazia Whitley, Gynecology [facility] UROGYNECOLOGY [place], [place] 0375 (Wo rk) 03/11/2022 Office Visit Hematology and Ángel Fischer MD [facility] [place] [address] [address] ONCOLOGY [place], [place] [phone] 03/11/2022 Infusion Hematology and Oncology 03/25/2022 Office Visit Hematology and Alyssa Joseph, Oncology [address] ONCOLOGY [place], [place] [address] (Wo rk) 03/25/2022 Infusion Hematology and Oncology 03/31/2022 Office Visit Hematology and Alan Livingston M D [facility] DR HEMATOLOGY/[place] [address] Oncology [facility] [address] 04/08/2022 Office Visit Hematology and Ángel Fischer MD [facility] [place] [address] Oncology [address] ONCOLOGY [place], [place] [phone] 04/08/2022 Infusion Hematology and Oncology documented as of this encounter Results Lactate Dehydrogenase (01/30/2017 2:12 PM EDT) athologist Signature LDH 204 110 - 220 [facility] unit/L [facility] Specimen Anatomical Collection Method Collection Time Receive d Time (Source) Location / / Volume Laterality Blood specimen 01/30/2017 2:12 PM 017 2:31 (specimen) EDT PM EDT Resulting Agency Comment Spec In Lab Nilam So APRN CHEMISTRY ORDERABLES Performing Organization Address City/State/[place] [address] (ABNORMAL) Comprehensive metabolic panel (non-fasting) (01/30/2017 2:12 PM EDT) athologist Signature Glucose Lvl 84 65 - 199 [facility] mg/dL [facility] Comment: Diabetes: >=200 mg/dL plus symp toms BUN 23 (H) 8 - 18 mg/dL [facility] Creatinine 0.95 0.70 - 1.20 mg/dL [facility] Comment: Please note that the pediatric reference intervals supplied above were not validated at [facility] [place] [place]. Results from pediatri c patients should be interpreted in conjunction to the patient's age, height and muscle mass. Sodium 143 135 - 145 mmol/L [facility] Potassium 4.0 3.5 - 5.0 mmol/L [facility] Comment: Please note: ??Patients with WBC >100,00 0 may have falsely elevated Potassium levels. ??For accurate Potassium quantif ication in these patients send serum separator tube (gold top) for subsequent determinations. ??Contact the Clinical Chemistry Laboratory if there are any qu estions. Chloride 102 98 - 107 mmol/L [facility] CO2 28 22 - 31 mmol/L [facility] Anion Gap 13 5 - 15 mmol/L [facility] Calcium 9.2 8.5 - 10.5 mg/dL [facility] Total Protein 6.6 6.1 - 8.0 gm/dL [facility] Albumin 4.3 3.2 - 5.2 gm/dL [facility] AST 20 0 - 30 unit/L [facility] ALT 20 0 - 30 unit/L [facility] Alk Phos 70 40 - 104 unit/L [facility] Total Bilirubin 0.3 0.2 - 1.3 mg/dL [facility] Estimated GFR 59 (L) >=60 [facility] Comment: This estimated GFR (eGFR) value was calc ulated using the MDRD equation which has been validated on patients between t he ages of 18 and 70. The MDRD should not be used to assess kidney function in patients < 18 years of age or in patients with extremes of body mass, or in patients with acute kidney failure. This value should be multiplied by 1.2 f or patients. For further information please copy and past e the following links into your internet browser. http://barcoo/DHnkdep http://barcoo/DHMCnkf Specimen Anatomical Collection Method Collection Time Receive d Time (Source) Location / / Volume Laterality Blood specimen 01/30/2017 2:12 PM 017 2:31 (specimen) EDT PM EDT Resulting Agency Comment Spec In Lab Nilam So TEACHER LIP READING CHEMISTRY ORDERABLES Performing Organization Address City/State/[place] [address] documented in this encounter Visit Diagnoses Diagnosis Chronic lymphocytic leukemia Chronic lymphoid leukemia, without menti on of having achieved remission documented in this encounter Care Teams Training Professional Relationship Specialty Start Date End Date Berkley Madrigal MD PCP - General 04/13/10 02/15/18 AYLEEN D [address] [place] [address] documented as of this encounter
--- OUTSIDE RECORDS SUMMARY | 2022-02-11 01:10 | XMS_ITS | Encounter Summary ---
:1950 Author Organization [facility] Address [address] [place] [address] Care Team Providers Name Role Phone Berkley Madrigal MD Primary Care Provider Reason for Visit Reason Comments Post Op Encounter Details Date Type Department Care Team Description 01/11/2017 Office Visit Ophthalmology at [facility] Venkata Swartz, Full thickness [facility] macular hole of left Drive [facility] eye [s/p [place], [place] [address] ASHLYN atkinson, [facility] [[email or web address]] [phone] OPHTHALMOLOGY 01/05/17] DEPT [place], [place] [address]375 Social History Tobacco Use Types [...] place to sleep or slept in a long-term (including now)? Sex Assigned at Date Recorded Female 12/24/2020 12:51 PM EDT documented as of this encounter Patient Instructions Patient InstructionsVenkata Page MD - 01/11/2017 7:30 AM EDT Images from the original note were not included. Drop Name: Cap Color: Dose: 1 Drop Eye: Prednisolone Acetate 1% [facility] [place] 2 x daily left eye until bottle gone Sleep on your right side or on your stomach with your head face down Do not lay flat on your back ?? Bring drops with you for your follow up visits. ?? Shake drops gently before use. ?? Wash hand before using eye drops. ?? Do not touch dropper to eyelids or fingers. ?? Space drops a minimum or 2-3 minutes apart from each other. If you have any questions or problems call us, a doctor is on a call 24 hours a day. Should you experience any: Severe Pain, Severe Light Sensitivity, Nausea and/or Vomiting, Sudden Loss of Vision, or any Thick Discharge from your eye PLEASE call the Eye Clinic IMMEDIATELY at [phone]. documented in this encounter Progress Notes Venkata Page MD - 01/11/2017 7:30 AM EDT ASSESSMENT: 1. 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 [s/p PPV, ERM and ILM peel, SF6 01/05/17] Surgical Findings: POW1 Doing well PLAN: Stop Vigamox Taper PF to BID until gone Follow up in 4-6 weeks for DFE/OCT The Ophthalmology scribe for this [...] Scheduled View Only Hematology Ángel Kimbrough Oncology [facility] ONCOLOGY [place], [place] [address] (Wo rk) 02/11/2022 TH Visit (TeleHealth) Ángel Hill Oncology [facility] DR UMANA [place], [place] [address] (Wo rk) 02/11/2022 Infusion Hematology and Oncology 02/11/2022 Office Visit Hematology and Jazzy Armendariz E, R D Oncology [facility] CESAR HEMATOLOGY AND ONCOLOGY [place], [place] 0[address] (Wo rk) 02/22/2022 TH Visit (TeleHealth) Hematology and Yaquelin Celis Oncology E, [facility] HEMATOLOGY AND ONCOLOGY [place], [place] 0375 (Wo rk) 02/25/2022 Office Visit Ángel Hill Oncology [facility] DR [place], [place] [address] (Wo rk) 02/25/2022 Infusion Hematology and Oncology 03/10/2022 Scheduled View Only Obstetrics and Nurse, Julian COLEMAN, manager clinical applications 03/10/2022 Office Visit Obstetrics and Gutierrez, Shazia Baer, Gynecology [facility] UROGYNECOLOGY [place], [place] 0375 (Wo rk) 03/11/2022 Office Visit Hematology and Ángel Fischer MD [facility] [place] [address] Oncology [address] Joseph[address] ONCOLOGY [place], [place] [phone] 03/11/2022 Infusion Hematology and Oncology 03/25/2022 Office Visit Hematology and Alyssa Joseph, Oncology [address] ONCOLOGY [place], [place] [address] (Wo rk) 03/25/2022 Infusion Hematology and Oncology 03/31/2022 Office Visit Hematology and Alan Livingston M D [facility] HEMATOLOGY/[place] [address] [facility]cology [facility] [address] 04/08/2022 Office Visit Hematology and Ángel Fischer MD [facility] [place] [address] Oncology [address] Joseph[address] ONCOLOGY [place], [place] [phone] 04/08/2022 Infusion Hematology and Oncology documented as of this encounter Visit Diagnoses Diagnosis 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 [s/p PPV, ERM and ILM peel, SF6 01/05/17] documented in this encounter Care Teams Police Judge Relationship Specialty Start Date End Date Berkley Madrigal MD PCP - General 04/13/10 02/15/18 AYLEEN Bray [address] [place] [address] documented as of this encounter
--- OUTSIDE RECORDS SUMMARY | 2022-02-11 01:10 | XMS_ITS | Encounter Summary ---
:1950 Author Organization [facility] Address [address] [facility] [address] [place] [address] Care Team Providers Name Role Phone Berkley Madrigal MD Primary Care Provider Reason for Visit Reason Comments Post Hospital Discharge Encounter Details Date Type Department Care Team Description 09/02/2016 Office [address]rology at 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; Drive [facility] On anticoagulant therapy [place], [place] CENTER [address] NEUROLOGY [phone] [place] [id number] Social History Tobacco Use Types Packs/Day Years [...] Sign Reading Time Taken Comments Blood Pressure 128/61 09/02/2016 10:15 AM EDT Pulse 62 09/02/2016 10:15 AM EDT Temperature - - Respiratory Rate - - Oxygen Saturation - - Inhaled Oxygen Concentration - - Weight 76.8 kg (169 lb 6.4 oz) 09/02/2016 10:15 AM EDT Height 163.8 cm (5' 4.5) 09/02/2016 10:15 AM EDT repor nora Body Mass Index 28.63 09/02/2016 10:15 AM EDT documented in this encounter Progress Notes Lamine Rocha PA - 09/02/2016 10:30 AM EDT Cerebrovascular Disease and Stroke Program Department of Neurology [place] [id number] t: [phone] / f: [phone] Date of Appointment: 09/02/2016 Patient: Carol Keller PCP: Berkley Madrigal MD Consultation Requested By: Berkley Madrigal Md Jori D [address] [place] [address] This 66 y.o. female is evaluated in post-discharge follow-up of bilateral MCA strokes (Jun 2016). HPI: Carol Keller is a 66 y.o. RIGHT handed female with PMHx of DM, SVT, CLL, s/p eye surgeryon 07/11/16 (membrane peeling of internal limiting membrane and epiretinal membrane, pars plana vitrectomy), who arrived on a stroke alert for LEFT facial and LEFT hand numbness, LEFT facial droop, LEFTUE weakness, and LEFT UE dysmetria. CTH was negative for acute findings. Deficits were resolving anddecision was made not to deliver tpa. However, hours later a large PE found on imaging and subjective SOB with desats to 80% warranted tpa for PE. This was successfully given without serious complications. Initial MRI 07/14 revealed posterior right frontal infarct. Repeat on 07/20 showed infarcts within bilateral MCA territories, left more extensive than right. MRA of the head and neck were obtained andno significant vascular abnormalities were seen. Hematology was consulted and the cause of this massive clotting event was seen as likely multifactorial given recent surgery, immobility, underlying cancer diagnosis and exogenous estrogen. She was started on therapeutic enoxaparin with the plan to transition to NOAC if stable after 3 mo. Duration of treatment is likely lifelong. In terms of residual deficits, the patient reports occasional word finding difficulties, worse when tired. She is able to effectively use compensatory strategies. She also reports altered internal sensation of the right UE affect 5th digit ascending along medial surface of the forearm. The function ofthat finger is impaired, most noticeable when typing. She has had no repeat events or new symptoms since discharge. She completed outpatient rehab. Patient has been compliant with medications without adverse symptoms. There have been no neurological events or symptoms suggestive of cerebral hemorrhage, ischemia or seizures. Denies: pain, acute onset headache, dizziness, impaired balance, nausea/vomiting, diplopia, dysarthria, dysphagia, impaired memory, concentration or comprehension, bladder or bowel problems, ataxia, problems with appetite or sleep, depressed mood. Modified Barton Scale (MRS) 0: No symptoms at all 1: No significant disability despite symptoms; able to carry out all usual duties and activities 2: Slight disability; unable to carry out all previous activities, but able to look after own affairs without assistance 3: Moderate disability; requiring some help, but able to walk without assistance 4: Moderate disability; unable to walk without assistance and unable to attend to own bodily needs without assistance 5: Severe disability; bedridden, incontinent and requiring constant nursing care and attention 6: Past Medical History: Diagnosis Date ??? Cancer [...] and blood-forming organs ??? Verruca vulgaris 03/08/2013 Patient Active Problem List Diagnosis Code ??? CLL (chronic lymphocytic leukemia) C91.10 ??? SVT (supraventricular tachycardia) I47.1 ??? Urinary incontinence, overflow N39.490 ??? GERD (gastroesophageal reflux disease) K21.9 ??? Diabetes mellitus E11.9 ??? Macular pucker, right eye H35.371 ??? 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 AK (actinic keratosis) L57.0 ??? History of SCC (squamous cell carcinoma) of skin Z85.828 ??? Pulmonary embolism I26.99 ??? Cerebral infarction I63.9 Allergies Allergen Reactions ??? Lipitor [Atorvastatin] Other (See Comments) Muscle cramps ??? Penicillins Rash Outpatient Prescriptions Marked as Taking for the 09/02/16 encounter (Office Visit) with Kirstin Rocha PA Medication Sig Dispense Refill ??? cycloSPORINE (RESTASIS) 0.05 % Dropperette Place 1 drop into the left eye 2 times daily. ??? glucosamine sulfate 500 mg Tablet Take 500 mg by mouth daily. ??? omeprazole (PRILOSEC) 20 mg Capsule, Delayed Release(E.C.) Take 20 mg by mouth daily. ??? enoxaparin (LOVENOX) 80 mg/0.8 mL Syringe Inject 0.8 mLs subcutaneously every 12 hours. 30 Syringe 11 ??? Green Tea Extract 500 mg Cap Take 500 mg by mouth daily. ??? melatonin 3 mg Tab Take 3 mg by mouth nightly as needed. ??? imipramine (TOFRANIL) 10 mg tablet Take by mouth 2 times daily. Indications: 2 tablets in AM, 1 tablet in PM ??? multivitamin capsule Take 1 capsule by mouth daily. ??? Cholecalciferol, Vitamin D3, (VITAMIN D) 2,000 unit Cap Take 2,000 mg by mouth daily. Social History Social History ??? Marital status: Spouse name: N/A ??? Number of children: N/A ??? Years of education: N/A Social History Main Topics ??? Smoking status: Never Smoker ??? Smokeless tobacco: Never Used ??? Alcohol use Yes Comment: Very rare ??? Drug use: No ??? Sexual activity: Not Asked Other Topics Concern ??? None Social History Narrative Merged History Encounter Family [...] Neg Hx ??? Heart Disease Neg Hx Exam: Vitals: 09/02/16 1015 BP: 128/61 Pulse: 62 Alert, oriented; attentive; speech fluent/articulate, pleasant affect; no dysarthria, paraphasic errors or mike aphasia. EOMI, visual abreu full, right conjunctival hemorrhage, Smile/grimace intact, no facial droop or asymmetry, tongue midline. Motor grossly intact all four extremities, Sensation intact to light touch and temp throughout, altered subjective sensation of 5th digit and medial surfaceof forearm of RUE, impaired strength/coordination of 5th digit right hand, otherwise intact all 4 extremities, Casual gait unremarkable. Data and records reviewed: ?? Lipids Lab Results Component Value Date CHLPL 237 (H) 12/21/2015 Lab Results Component Value Date HDL 75 12/21/2015 No results found for: LDLCHOL No results found for: TRIG Lab Results Component Value Date CHOLHDL 3.2 12/21/2015 ?? Last 3 Hemoglobin A1Cs Lab Results Component Value Date HA1C 6.0 (H) 02/01/2016 HA1C 6.2 (H) 12/21/2015 HA1C 6.1 (H) 02/23/2015 Clinical Impression and recommendations: Carol Keller is a 66 y.o.female with bilateral MCA strokes (Jun 2016). She also had saddle PEs/p tPA. The cause of this clotting event was seen as likely multifactorial given recent surgery, immobility, underlying cancer diagnosis and exogenous estrogen. Paradoxical embolism leading to stroke was proposed but PFO was not seen by doppler and bubble study was not performed to further assess. Vessel imaging did not reveal vascular abnormality that might have been contributory. She is on therapeutic lovenox, likely lifelong, with plan to transition to Eliquis after 3mo. She has follow-up with hematology planned. Given likely need for lifelong anticoagulation for PE regardless, there is minimalclinical utility in pursuing further workup at this stage. In terms of secondary prevention, the anticoagulation is sufficient; I see no additional need for antiplatelet agents in her case. ??? Return to clinic 1 yr documented in this encounter Plan of Treatment Upcoming Encounters Date Type Specialty Care Team Description 02/11/2022 Scheduled View Only Hematology and Ángel Fischer Oncology [facility] ONCOLOGY [place], [place] [address] (Shana rk) 02/11/2022 TH Visit (TeleHealth) Hematology Ángel Kimbrough Oncology [facility] ONCOLOGY [place], [place] [address] (Wo rk) 02/11/2022 Infusion Hematology and Oncology 02/11/2022 Office Visit Hematology and Jazzy Armendariz R D Oncology [facility] HEMATOLOGY AND ONCOLOGY [place], [place] [address] (Wo rk) 02/22/2022 TH Visit (TeleHealth) Hematology and Yaquelin Celis Oncology E, [facility] DR HEMATOLOGY AND ONCOLOGY [place], [place] [address] (Wo rk) 02/25/2022 Office Visit Hematology and Ángel Fischer, Oncology [facility] ONCOLOGY [place], [place] [address] (Wo rk) 02/25/2022 Infusion Hematology and Oncology 03/10/2022 Scheduled View Only Obstetrics and Nurse, Julian COLEMAN, eyeletter 03/10/2022 Office Visit Obstetrics and Gutierrez, Shazia Baer, Gynecology [facility] UROGYNECOLOGY [place], [place] [address] (Wo rk) 03/11/2022 Office Visit Hematology and Ángel Fischer MD [facility] [place] [address] Oncology Alyssa Joseph, [address] MEDICAL ONCOLOGY [place], [place] [address] 03/11/2022 Infusion Hematology and Oncology 03/25/2022 Office Visit Hematology and Alyssa Joseph, Oncology [address] [address] (Wo rk) 03/25/2022 Infusion Hematology and Oncology 03/31/2022 Office Visit Hematology and Alan Livingston M D [facility] HEMATOLOGY/[place] [address] Oncology [facility]am 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
--- OUTSIDE RECORDS SUMMARY | 2022-02-11 01:10 | XMS_ITS | Encounter Summary ---
:1950 Author Organization [facility] Address [address] [place] [address] Care Team Providers Name Role Phone Berkley Madrigal MD Primary Care Provider Reason for Visit Reason Comments Post Op Encounter Details Date Type Department Care Team Description 01/06/2017 Office Visit Ophthalmology at [facility] Venkata Swartz, Full thickness [facility] macular hole of left Drive [facility] eye [s/p PPV, [place] [address] ASHLYN atkinson, [facility] [phone] OPHTHALMOLOGY 01/05/17] DEPT [place], [place] [address] Social History Tobacco Use Types [...] Patient Instructions Patient InstructionsVenkata Page MD - 01/06/2017 8:15 AM EDT Images from the original note were not included. Drop Name: Cap Color: Dose: 1 Drop Eye: Prednisolone Acetate 1% Fords 4 x daily left eye Vigamox Davalos 4 x daily left eye Position face-down 80-90% (50 minutes) of every hour until next seen Sleep on your right side or on your stomach with your head face down Do not lay flat on your back ?? CONTINUE ALL PREVIOUSLY PRESCRIBED EYE DROPS UNLESS OTHERWISE DIRECTED ?? Bring drops with you for your follow up visits. ?? Shake drops gently before use. ?? Wash hand before using eye drops. ?? Do not touch dropper to eyelids or fingers. ?? Space drops a minimum or 2-3 minutes apart from each other. ?? Wear solid eye shield while sleeping for 1 week as directed. ?? Shower/bathe as normal, but do not get bath/tap water directly in operative eye. ?? If given a green bracelet, wear until gas bubble is gone. If you have any questions or problems call us, a doctor is on a call 24 hours a day. Should you experience any: Severe Pain, Severe Light Sensitivity, Nausea and/or Vomiting, Sudden Loss of Vision, or any Thick Discharge from your eye PLEASE call the Eye Clinic IMMEDIATELY at [phone]. documented in this encounter Progress Notes Venkata Page MD - 01/06/2017 8:15 AM EDT ASSESSMENT: 1. 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 [s/p PPV, ERM and ILM peel, SF6 01/05/17] POD 1 Doing well PLAN: PF and Vig QID OS No water in eye for 1 week Position appropriately, sleep on right side FU 1 week as scheduled Sooner PRN The Ophthalmology scribe for this encounter is [...] Fischer Oncology [facility] ONCOLOGY [place], [place] [address] (Shana hewitt) 02/11/2022 TH Visit (TeleHealth) Ángel Hill Oncology [facility] DR UMANA [place], [place] [address] (Shana hewitt) 02/11/2022 Infusion Hematology and Oncology 02/11/2022 Office Visit Hematology and Jazzy Armendariz R D Oncology [facility] DRIVE HEMATOLOGY AND ONCOLOGY [place], [place] [address] (Shana hewitt) 02/22/2022 TH Visit (TeleHealth) Hematology and Yaquelin Celis Oncology E, [facility] HEMATOLOGY AND ONCOLOGY [place], [place] [address] (Wo rk) 02/25/2022 Office Visit Hematology Ángel Kimbrough Oncology MD [facility] ONCOLOGY [place], [place] [address] (Wo rk) 02/25/2022 Infusion Hematology and Oncology 03/10/2022 Scheduled View Only Obstetrics and Nurse, Julian COLEMAN, brushing operator 03/10/2022 Office Visit Obstetrics and Shazia Whitley, Gynecology [facility] UROGYNECOLOGY [place], [place] [address] (Wo rk) 03/11/2022 Office Visit Hematology and Ángel Fischer MD [facility] [place] [address] Oncology Alyssa Joseph[address] MEDICAL ONCOLOGY [place], [place] [id number] 03/11/2022 Infusion Hematology and Oncology 03/25/2022 Office Visit Hematology and Alyssa Joseph Oncology [address] MEDICAL ONCOLOGY [place], [place] [address] (Wo rk) 03/25/2022 Infusion Hematology and Oncology 03/31/2022 Office Visit Hematology and Alan Livingston M D [facility] HEMATOLOGY/[place] [address] Oncology Nilam So, [facility] HEMATOLOGY/[place] [address] 04/08/2022 Office Visit Hematology and Ángel Fischer MD [facility] [place] [address] Oncology Alyssa Joseph, [address] MEDICAL ONCOLOGY [place], [place] [address] 04/08/2022 Infusion Hematology and Oncology documented as of this encounter Visit Diagnoses Diagnosis 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 [s/p PPV, ERM and ILM peel, SF6 01/05/17] documented in this encounter Care Teams Piercer Relationship Specialty Start Date End Date Berkley Madrigal MD PCP - General 04/13/10 02/15/18 AYLEEN Katarina [address] [place], [place] [id number] documented as of this encounter
--- OUTSIDE RECORDS SUMMARY | 2022-02-11 01:10 | XMS_ITS | Encounter Summary ---
:1950 Author Organization [facility] [place] [address] Care Team Providers Name Role Phone Berkley Madrigal MD Primary Care Provider Reason for Visit Reason Onset Date Comments Follow-up 01/12/2017 Encounter Details Date Type Department Care Team Description 01/12/2017 Telephone Ophthalmology at [facility] Venkata Swartz MD Follow-up [facility] [place] [address] OPHTHALMOLOGY DEPT [phone] [place], [place] [address] (Wo rk) Social History Tobacco [...] Notes Telephone Encounter - Samreen Graves - 01/16/2017 11:10 AM EDT Patient Scheduled Telephone Encounter - Samreen Graves - 01/12/2017 9:15 AM EDT I have called and left a message for patient to call and schedule an appointment. 4-6 weeks for DFE/OCT documented in this encounter Plan of Treatment Upcoming Encounters Date Type Specialty Care Team Description 02/11/2022 Scheduled View Only Hematology Ángel Kimbrough, Oncology [facility] DR LYNDSAY [place], [place] [address] (Wo rk) 02/11/2022 TH Visit (TeleHealth) Hematology and Ángel Fischer , Oncology [facility] ONCOLOGY [place], [place] [address] (Wo rk) 02/11/2022 Infusion Hematology and Oncology 02/11/2022 Office Visit Hematology and Jazzy Armendariz R D Oncology [facility] DRIVE HEMATOLOGY AND ONCOLOGY [place], [place] [address] (Wo rk) 02/22/2022 TH Visit (TeleHealth) Hematology and Yaquelin Celis Oncology E, [facility] HEMATOLOGY AND ONCOLOGY [place], [place] [address] (Wo rk) 02/25/2022 Office Visit Hematology Ángel Kimbrough Oncology [facility] ONCOLOGY [place], [place] [address] (Wo rk) 02/25/2022 Infusion Hematology and Oncology 03/10/2022 Scheduled View Only Obstetrics and Nurse, Julian COLEMAN, domain architect 03/10/2022 Office Visit Obstetrics and Shazia Whitley Gynecology [facility] UROGYNECOLOGY [place], [place] [address] (Wo rk) 03/11/2022 Office Visit Ángel Hill MD [facility] [place] [address] Oncology Alyssa Joseph, [address] MEDICAL ONCOLOGY [place], [place] [id number] 03/11/2022 Infusion Hematology and Oncology 03/25/2022 Office Visit Hematology and Alyssa Joseph, Oncology [address] MEDICAL ONCOLOGY [place], [place] [id number] (Wo rk) 03/25/2022 Infusion Hematology and Oncology 03/31/2022 Office Visit Hematology and Alan Livingston M D [facility] DR HEMATOLOGY/[place] [address] Oncology Nilam So, [facility] DR HEMATOLOGY/[place] [address] 04/08/2022 Office Visit Hematology and Ángel Fischer MD [facility] [place] [place] [address] Oncology Alyssa Joseph[address] MEDICAL ONCOLOGY [place], [place] [id number] 04/08/2022 Infusion Hematology and Oncology documented as of this encounter Visit Diagnoses Not on filedocumented in this encounter Care Teams Lard Mixer Relationship Specialty Start Date End Date Berkley Madrigal MD PCP - General 04/13/10 02/15/18 AYLEEN Bray [address] [place], [place] [id number] documented as of this encounter
--- OUTSIDE RECORDS SUMMARY | 2022-02-11 01:10 | XMS_ITS | Encounter Summary ---
:1950 Author Organization [employer] [place] [address] Care Team Providers Name Role Phone Berkley Madrigal MD Primary Care Provider Encounter Details Date Type Department Care Team Description 01/05/2017 Surgery Main Operating Room Michelle Page MD VITRECTOMY, W/ MEMBRANE [facility] DR MERINO (WRVU 16.33) [facility] [place] [address] [place] [address] [phone] Social History Tobacco Use Types Packs/Day Years [...] Sign Reading Time Taken Comments Blood Pressure 123/56 01/05/2017 4:47 PM EDT Pulse - - Temperature 36.6 ??C (97.9 ??F) 01/05/2017 4:24 PM EDT Respiratory Rate 92 01/05/2017 12:26 PM EDT Oxygen Saturation 99% 01/05/2017 4:47 PM EDT Inhaled Oxygen Concentration - - Weight 78 kg (172 lb) 01/05/2017 12:26 PM EDT Height - - Body Mass Index 29.15 09/16/2016 11:10 AM EDT documented in this encounter Discharge Instructions Discharge InstructionsCuCarolyn coburn RN - 01/05/2017 4:49 PM EDT POST [...] Page MD - 01/05/2017 4:17 PM EDT [facility] [place] Operative Note Patient Name: Carol Keller : [id number] MR#: [id number] Case Date: 01/05/2017 Surgeon: Surgeon(s) and Role: [...] Fischer Oncology [facility] ONCOLOGY [place], [place] [address] (Wo rk) 02/11/2022 TH Visit (TeleHealth) Hematology Ángel Kimbrough Oncology [facility] DR UMANA [place], [place] [address] (Wo rk) 02/11/2022 Infusion Hematology and Oncology 02/11/2022 Office Visit Hematology and Jazzy Armendariz R D Oncology [facility] HEMATOLOGY AND ONCOLOGY [place], [place] [address] (Wo rk) 02/22/2022 TH Visit (TeleHealth) Hematology and Yaquelin Celis E, [facility] HEMATOLOGY AND ONCOLOGY [place], [place] [address] (Wo rk) 02/25/2022 Office Visit Hematology Ángel Kimbrough Oncology [facility] DR UMANA [place], [place] [address] (Wo rk) 02/25/2022 Infusion Hematology and Oncology 03/10/2022 Scheduled View Only Obstetrics and Julian Enciso II, owner 03/10/2022 Office Visit Obstetrics and Shazia Whitley, Gynecology EPIC KALEIDOSCOPE ANALYST [facility] UROGYNECOLOGY [place], [place] [address] (Wo rk) 03/11/2022 Office Visit Ángel Hill MD [facility] [place] [address] Oncology Alyssa Joseph, [address] [address] 03/11/2022 Infusion Hematology and Oncology 03/25/2022 Office Visit Hematology and Alyssa Joseph, Oncology [address] MEDICAL ONCOLOGY [place], [place] [id number] (Wo rk) 03/25/2022 Infusion Hematology and Oncology 03/31/2022 Office Visit Hematology and Alan Livingston M D [facility] DR HEMATOLOGY/[place] [address] Oncology Nilam So, [facility] DR HEMATOLOGY/[place] [address] 04/08/2022 Office Visit Hematology and Ángel Fischer MD [facility] [place] [address] On[address] Alyss[address] Joseph[address] MEDICAL ONCOLOGY [place], [place] [id number] 04/08/2022 Infusion Hematology and Oncology documented as of this encounter Procedures Procedure Name Priority Date/Time Associated Diagnosis Comme nts VITRECTOMY, W/ MEMBRANE 01/05/2017 2:40 PM Full thickn ess macular STRIPPING, INTRAOCULAR EDT hole of left eye TAMPONADE (WRVU 16.33) documented in this encounter Visit Diagnoses Diagnosis 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 [...] hours, Routine balanced salt (BSS PLUS) irrigation Given 01/05/2017 2:38 PM EDT 1 Bottle Left Eye solution ONCE PRN, Starting on Marilyn 01/05/17 at 1438, Until Marilyn 01/05/17 at 1953, Intra-Operative (Intra-Procedure), Routine balanced salt (BSS) irrigation Given 01/05/2017 2:38 PM EDT 1 Edwin ttle Left Eye solution ONCE PRN, Starting on Marilyn 01/05/17 at 1438, Until Marilyn 01/05/17 at 1953, Intra-Operative (Intra-Procedure), Routine EPINEPHrine injection Given 01/05/2017 2:39 PM 0.5 mg 20-Other (document solution EDT in comment sect ion) ONCE PRN, Starting on Marilyn 01/05/17 at 1439, Until Marilyn 01/05/17 at 1953, Intra-Operative (Intra-Procedure), Routine hydroxypropyl cellulose ((HYPROMELLOSE; Given 01/05/2017 3:58 PM EDT 1 mL Left Eye OCUCOAT)) 2 % ophthalmic insert ONCE PRN, Starting on Marilyn 01/05/17 at 1523, Until Marilyn 01/05/17 at 1953, Intra-Operative (Intra-Procedure), Routine Given 01/05/2017 3:23 PM EDT 1 mL Left Eye indocyanine green (IC-GREEN) injection Given 01/05/2017 3:34 PM EDT 0.5 mg ONCE PRN, Starting on Marilyn 01/05/17 at 1534, Until Marilyn 01/05/17 at 1953, Intra-Operative (Intra-Procedure), Routine lactated Ringers infusion 1,000 mL New [...] Given 01/05/2017 12:30 PM EDT 1 drop moxifloxacin (VIGAMOX) 0.5 % ophthalmic Given 01/05/2017 3:23 PM EDT 1 drop solution ONCE PRN, Starting on Marilyn 01/05/17 at 1523, Until Marilyn 01/05/17 at 1953, Intra-Operative (Intra-Procedure), Routine nlzxbjpd-orysdcxdj-pvvbxwiecrwan (DEXACINE) Given 01/05/2017 3:22 PM EDT 1 Tube 3.5 mg/g-10,000 unit/g-0.1 % ophthalmic ointment ONCE PRN, Starting on Marilyn 01/05/17 at 1522, Until Marilyn 01/05/17 at 1953, Intra-Operative (Intra-Procedure), Routine PHENYLephrine (MYDFRIN) 2.5 % ophthalmic Given 01/05/2017 12:45 PM EDT 1 drop solution 1 drop 1 drop, Left Eye, EVERY 5 MIN, 3 doses, First dose on Marilyn 01/05/17 at 1245, Last dose on Marilyn 01/05/17 at 1255, Day of Surgery (Day of Procedure), Routine Given 01/05/2017 12:36 PM EDT 1 drop Given 01/05/2017 12:30 PM EDT 1 drop povidone-iodine 5 % ophthalmic solution Given 01/05/2017 3:23 PM EDT 30 mLs ONCE PRN, Starting on Marilyn 01/05/17 at 1523, Until Marilyn 01/05/17 at 1953, Intra-Operative (Intra-Procedure), Routine prednisoLONE acetate (PRED FORTE) 1 % Given [...] if ordered., Recovery ( Recovery-Hospital Unit), Routine tetracaine (PF) (PONTOCAINE) ophthalmic Given 01/05/2017 3:23 PM EDT 1 drop solution ONCE PRN, Starting on Marilyn 01/05/17 at 1523, Until Marilyn 01/05/17 at 1953, Intra-Operative (Intra-Procedure), Routine tropicamide (MYDRIACYL) 1 % ophthalmic Given [...] Provider: Ashley Chung RN)1236 (Given - Provider: Ashleystanley Chung RN)1245 (Given - Provider: Ashley Chung [...] drop, Left Eye, ONCE, 1 dose, Marilyn 01/05 at 1245, Day of Surgery (Day of Procedure), Routine sodium chloride 0.9 % flush 5 mL 5 mL, Intravenous, 2 TIMES DAILY, First dose on Marilyn 01/05/17 at 2100, Until Discontinued, Routine tropicamide (MYDRIACYL) 1 % ophthalmic solution 1 drop (COMPLETE D) 1230 (Given - Provider: Ashley Chung RN)1237 (Given - Provider: Ashley Chung RN)1245 (Given [...] balanced salt (BSS PLUS) irrigation solution (CANCELED) 143 (Given - Provider: Venkata Page MD) ONCE PRN, Starting Mon01/05/17 at 1438, Until Mon01/05/17 at 1952, Intra- Operative (Intra-Procedure), Routine balanced salt (BSS) irrigation solution (CANCELED) 143 (Given - Provider: Venkata Page MD) ONCE PRN, Starting Mon01/05/17 at 1438, Until Mon01/05/17 at 1952, Intra- Operative (Intra-Procedure), Routine EPINEPHrine injection solution (CANCELED) 143 (Given - Provider: Zaria Og RN) ONCE PRN, Starting Mon01/05/17 at 1439, Until Mon01/05/17 at 1952, Intra- Operative (Intra-Procedure), Routine hydroxypropyl cellulose ((HYPROMELLOSE; OCUCOAT)) 2 % ophthalmic insert (CANCELED) 152 (Given - Provid er: Venkata Page MD)1558 (Given - Provider: Venkata Page MD) ONCE PRN, Starting Mon01/05/17 at 1523, Until Mon01/05/17 at 1952, Intra- Operative (Intra-Procedure), Routine indocyanine green (IC-GREEN) injection (CANCELED) 1534 (Given - Provider: Venkata Page MD - [...] moxifloxacin (VIGAMOX) 0.5 % ophthalmic solution (CANCELED) 1523 (Given - Provider: Venkata Page MD - Comment: post op) ONCE PRN, Starting Marilyn 01/05/17 at 1523, Until Marilyn 01/05/17 at 1952, Intra- Operative (Intra-Procedure), Routine gvhpwncd-xwlqnfgkx-fysdqlyelcebj (DEXACI NE) 3.5 mg/g-10,000 unit/g-0.1 % ophthalmic ointment (CANCELED) 1521 (Giv en - Provider: Venkata Page MD - Comment: 0.25 ml post op) ONCE PRN, Starting Marilyn 01/05/17 at 1522, Until Marilyn 01/05/17 at 1952, Intra- Operative (Intra-Procedure), Routine ondansetron (ZOFRAN) injection 4 mg (CANCELED) 161 (Given - Provider: Domenica Thacker CRNA) 4 mg, Intravenous, EVERY 30 MIN PRN, Sta rting Marilyn 01/05/17 at 1615, Until Marilyn 01/05/17 at 1740, Nausea, May repeat 4 mg once in 30 minutes. If multiple antiemetics ordered, use ondansetron first and if ineffective use prochlorperazine second and if ineffective use promethazine, PACU Recovery povidone-iodine 5 % ophthalmic solution (CANCELED) 1522 (Given - Provider: Venkata Page MD) ONCE PRN, Starting Marilyn 01/05/17 at 1523, Until Marilyn 01/05/17 at 1952, Intra- Operative (Intra-Procedure), Routine prochlorperazine (COMPAZINE) injection 10 mg(Linked Group 1) 10 mg, Intravenous, EVERY 6 HOURS PRN, S tarting Marilyn 01/05/17 at 1635, Until Marilyn 01/05/17 at 1952, Nausea, Vomiting, If multiple antiemetics are ordered, use ondansetron first. If ondansetron ineffectiv e use prochlorperazine. , Recovery (Recovery-Hospital Unit), R outine prochlorperazine (COMPAZINE) tablet 10 mg(Linked Group 1) 10 mg, Oral, EVERY 6 HOURS PRN, Starting Marilyn 01/05/17 at 1635, Until Marilyn 01/05/17 at 1952, Nausea, Vomiting, If multiple antiemetics are ordered, use ondansetron first. If ondansetron ineffective use p rochlorperazine. PO Preferred. If pat ient unable to take PO, may give IV if ordered., Recovery (Recovery-Hospital Unit), Routine sodium chloride 0.9 % flush 5-20 mL 5-20 mL, Intravenous, EVERY 1 MIN PRN, S tarting Marilyn 01/05/17 at 1616, Until Marilyn 01/05/17 at 1953, flush, Flush pertains to all indwelling lines. Flush per protocol found in the job aid using the link provided on this medication record., Routine tetracaine (PF) (PONTOCAINE) ophthalmic solution (CANCELED) 152 (Given - Provider: Venkata Page MD - Comment: pre prep) ONCE PRN, Starting Marilyn 01/05/17 at 1523, Until Marilyn 01/05/17 at 1953, Intra- Operative (Intra-Procedure), Routine Linked Groups Order Group 1: prochlorperazine (COMPAZINE) tablet 10 mgJump to med 10 mg, Oral, EVERY 6 HOURS PRN, Starting Marilyn 01/05/17 at 1635, Until Marilyn 01/05/17 at 1953, Nausea, Vomiting
If multiple antiemetics are ordered, use ondansetron first. If on dansetron ineffective use prochlorperazi ne. PO Preferred. If patient unable to take PO, may give IV if ordered.
Recovery (Recovery- Hospital Unit), Routine Or prochlorperazine (COMPAZINE) injection 10 mgJump to med 10 mg, Intravenous, EVERY 6 HOURS PRN, S tarting Marilyn 01/05/17 at 1635, Until Marilyn 01/05/17 at 1953, Nausea, Vomiting
If multiple antiemetics are ordered, use ondansetron first. &nbs p;If ondansetron ineffective use prochlo rperazine.
Recovery (Recovery- Hospital Unit), Routine documented in this encounter Care Teams Plastic Tile Setter Relationship Specialty Start Date End Date Berkley Madrigal MD PCP - General 04/13/10 02/15/18 AYLEEN Bray [address] [place] [address] documented as of this encounter
--- OUTSIDE RECORDS SUMMARY | 2022-02-11 01:10 | XMS_ITS | Encounter Summary ---
:1950 Author Organization [facility] [place] [address] Care Team Providers Name Role Phone Berkley Madrigal MD Primary Care Provider Encounter Details Date Type Department Care Team Description 01/05/2017 Anesthesia Event Main Operating Room Lupillo Del Castillo, [facility] Katarina evangelista [place] [address] [place] [address] [phone] (Wo rk) Anesthesia Record Procedure Summary Procedure Name Responsible Anesthesia Start Anesthesia Stop Anesthesiologist Time Time VITRECTOMY, W/ Aimee Correa MD 01/05/17 1436 7 1631 MEMBRANE STRIPPING, INTRAOCULAR TAMPONADE (WRVU 16.33) (Left Eye) Events Date Time Event Comment 01/05/2017 1355 1436 AN Verify 1436 Start 1441 An Start Data 1445 An Induction 1455 An Intubation 1459 Anesthesia Ready 1618 Extubation/LMA Out Spontaneous T V>400. Suctioned. Extubated. Breathing well o n own. To SD on 4 L NC 1620 an stop data 1631 Recovery or ICU Handoff Patient care was transferred to the destination unit staff after review of the patient's medica l history, current anesthetic/surgi kassie status and plan, according to the Provider Handoff Checklist. 1631 Stop Name Total IV Lidocaine 40 mg Propofol 400 mg Rocuronium 50 mg PHENYLephrine 960 mcg Dexamethasone 10 mg Neostigmine 3 mg Glycopyrrolate 0.4 mg Propofol INF 161.85 mg ondansetron (ZOFRAN) injection 4 mg 4 mg lactated Ringers infusion 1,000 mL 150 mL Agents Name O2 Air N2O Sevoflurane (et) Blood No blood administrations on file. Lines, Drains, and Airways Type Details Placement Removal Incision 07/11/16; eye; 01/17/22 (LDA 07/11/16 0000 by 1715 by cleanup utility RA#[id number]); Apple Wallis RN M uller, Dierdre L 1715 (LDA cleanup utility RA#[id number]) Wound 07/14/16; thigh; (Hematoma 07/14/16 0000 by 12/21 02/10 1715 by ); 01/17/22 (LDA cleanup Marisela Ibarra RN Muller, Dierdre L utility RA#[id number]); 1715 (LDA cleanup utility RA#[id number]) Incision 01/05/17; eye; 01/17/22 (LDA 01/05/17 0000 by 1715 by cleanup utility RA#[id number]); Apple Wallis RN M uller, Dierdre L 1715 (LDA cleanup utility RA#[id number]) PIV 01/05/17; 1243; metacarpal 01/05/17 1243 by Bianka t, 01/05/17 1750 by vein (top of hand), left; ALLIE Kaur Gladys F, RN ksdi-xdt-vcqqid catheter system; 20 gauge, 1 in length; distraction, intradermal injection, tolerated well; no longer indicated, catheter/device intact, removed per policy/procedure; 01/05/17; 1750 ETT Mask Ventilation: Adjunct 01/05/17 1455 by 01/05 1618 by (2) (WITH # 9 OPA); ETT Domenica Patel I, MEDICAL ADMINISTRATIVE Domenica Patel I, MEDICAL ADMINISTRATIVE Type: Cuffed; ETT Size: 7.5 mm; Mac Blade: 3; Richardson Blade: 2; Exchange: Bougie; Indirect:Video; Notes: Asleep, Pre-O2, Cricoid Pressure, Stylette; Attempts: 3 (Grade 3 view with MAC 3. BMV. CMAC not available. Grade 3 view with pedi glidescope -unable to pass bougie. BMV Grade 2 view with Richardson 2 & BURP, able to pass Bougie); Laryngoscopy Grade: 3; ETT Placement Verified By: Auscultation, Capnometry, Visual; Secured at Teeth: 23 cm; Inserted by: Oswaldo Correa MD documented in this encounter Social History Tobacco Use Types Packs/Day Years [...] PM EDT documented as of this encounter OR Notes Anesthesia Postprocedure Evaluation - Aimee Correa MD - 01/05/2017 4:34 PM EDT [facility] [place]est[place]iology Post-procedure Note Patient: Carol Keller Procedure Summary Date Anesthesia Start Anesthesia Stop Room / Location 01/05/17 1436 1631 [facility] OR 21 / [facility] MAIN OR Procedure Diagnosis Surgeon Responsible Provider VITRECTOMY, W/ MEMBRANE STRIPPING, INTRAOCULAR TAMPONADE (WRVU 16.33) (Left Eye) 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 (Full-thickness macular hole OS) Venkata Page MD Williams, Adrienne P, MD All Anesthesia Providers: Anesthesiologist: Aimee Correa MD MEDICAL ADMINISTRATIVE: Domenica Patel CRNA Last (1hr) Vitals: BP 111/53 (01/05/17 1630) Temp (P) 36.6 ??C (97.9 ??F) (01/05/17 1624) Pulse Resp SpO2 99 % (01/05/17 1630) Patient Location: Level of Consciousness: Conscious but Sleepy Pain Management: Satisfactory Analgesia PONV: None Cardiovascular Status: At Baseline Respiratory Status: At Baseline Postoperative Fluid Status: Intravascular EUvolemia Possible Anesthetic Complications: NONE apparent at time of evaluation Final Primary Anesthesia Type: General (The anesthetic type performed was the same as planned.) Comments: Anesthesia Preprocedure Evaluation - Aimee Correa MD - 01/05/2017 1:54 PM EDT Pre-Anesthesia Evaluation for: Carol Keller a 66 y.o. female. Procedure(s): VITRECTOMY, W/ MEMBRANE STRIPPING, INTRAOCULAR TAMPONADE (WRVU 16.33) Patient Active Problem List Diagnosis ??? 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 Cancer [...] 16.33) performed by Pavan Coffey MD at [facility] MAIN OR ??? RETINAL DETACHMENT SURGERY ??? RETINOPATHY SURGERY Right 07/11/2016 PPV/MP with Intraocular Tamponade OD per CBC for [place] Social History Substance Use Topics ??? Smoking status: Never Smoker ??? Smokeless tobacco: Never Used ??? Alcohol use Yes Comment: Very rare History Drug Use No Allergies Allergen Reactions ??? Lipitor [Atorvastatin] Other (See Comments) Muscle cramps ??? Penicillins Rash Medications: MAR and/or home medications have been reviewed. Physical Exam: Vitals: 01/05/17 1226 BP: 137/77 Resp: (!) 92 Temp: 36.4 ??C (97.5 ??F) Body mass index is 29.15 kg/(m^2). Weight - Scale: 78 kg (172 lb) Airway Assessment: Mallampati: II TM distance: <3 FB Neck ROM: full Cardiovascular Assessment: Rhythm: regular Rate: normal (-) murmur cardiovascular exam normal Pulmonary Assessment: (-) wheezes and decreased breath sounds pulmonary exam normal Dental Assessment: Misc Assessment: IV access: Peripheral line Anesthesia Plan: ASA 2 general, with a(n) intravenous induction Surgeon requesting muscle relaxation for procedure, so will proceed with [facility] Region - Other Informed Consent: Anesthetic plan and risks discussed with patient. Plan discussed with MEDICAL ADMINISTRATIVE and attending. PAT Staff Note documented in this encounter Miscellaneous Notes Addendum Note - Domenica Patel CRNA - 01/05/2017 4:42 PM EDT Addendum created 01/05/171641 by Domenica Patel CRNA Anesthesia Event edited, Anesthesia Intra Meds edited documented in this encounter Plan of Treatment Upcoming Encounters Date Type Specialty Care Team Description 02/11/2022 Scheduled View Only Hematology Ángel Kimbrough Oncology [facility] [address] [place] [place], [place] [address] (Wo rk) 02/11/2022 TH Visit (TeleHealth) Ángel Hill Oncology [facility] [address] [place] [place], [place] [address] (Wo rk) 02/11/2022 Infusion Hematology and Oncology 02/11/2022 Office Visit Hematology and Jazzy Armendariz R D Oncology [facility] HEMATOLOGY AND ONCOLOGY [place], [place] [address] (Wo rk) 02/22/2022 TH Visit (TeleHealth) Hematology and Yaquelin Celis Oncology E, [facility] HEMATOLOGY AND ONCOLOGY [place], [place] [address] (Wo rk) 02/25/2022 Office Visit Ángel Hill Oncology [facility] [address] [place], [place] [address] (Wo rk) 02/25/2022 Infusion Hematology and Oncology 03/10/2022 Scheduled View Only Obstetrics and Nurse, Julian COLEMAN, digital marketing intern 03/10/2022 Office Visit Obstetrics and Shazia Whitley, Gynecology [facility] UROGYNECOLOGY [place], [place] [address] (Wo rk) 03/11/2022 Office Visit Hematology and Ángel Fischer MD [facility] [place] [address] Oncology Alyss[address] Joseph[address] ONCOLOGY [place], [place] [address] 03/11/2022 Infusion Hematology and Oncology 03/25/2022 Office Visit Hematology and Alyssa Joseph, Oncology [address] MEDICAL ONCOLOGY [place], [place] [address] (Wo rk) 03/25/2022 Infusion Hematology and Oncology 03/31/2022 Office Visit Hematology and Alan [place] M D [facility] DR HEMATOLOGY/[place] [address] [facility] [address] 04/08/2022 Office Visit Hematology and Ángel Fischer MD [facility] [place] [address] Oncology [address]lyss[address] Joseph[address] MEDICAL ONCOLOGY [place], [place] [id number] 04/08/2022 Infusion Hematology and Oncology documented as of this encounter Visit Diagnoses Not on filedocumented in this encounter Administered Medications Inactive Administered Medications - up to 3 most recent administrations Medication Order MAR Action Action Date Dose Rate Site dexamethasone (DECADRON) injection Given 01/05/2017 3:06 PM EDT 10 mg PRN, Starting on Marilyn 01/05/17 at 1506, Until Marilyn 01/05/17 at 1631, Anesthesia Intra-op, Routine glycopyrrolate (ROBINUL) multi-dose inje ction Given 01/05/2017 4:14 PM EDT 0.4 mg PRN, Starting on Marilyn 01/05/17 at 1614, Until Marilyn 01/05/17 at 1639, Anesthesia Intra-op, Routine lactated Ringers infusion 1,000 mL New Bag 01/05/2017 2:36 PM EDT 1,000 mL, at 100 mL/hr, Intravenous, CONTINUOUS, Starting on Marilyn 01/05/17 at 1245, Until Marilyn 01/05/17 at 1740, Day of Surgery (Day of Procedure) New Bag 01/05/2017 12:44 PM EDT 1,000 mLs 100 mL/hr lidocaine (PF) (XYLOCAINE) 100 mg/5 mL (2 %) Given 7 2:45 PM EDT 40 mg injection PRN, Starting on Marilyn 01/05/17 at 1445, Until Marilyn 01/05/17 at 1631, Anesthesia Intra-op, Routine neostigmine (BLOXIVERZ) injection Given 01/05/2017 4:14 PM EDT 3 mg PRN, Starting on Marilyn 01/05/17 at 1614, Until Marilyn 01/05/17 at 1639, Anesthesia Intra-op, Routine ondansetron (ZOFRAN) injection 4 mg Given 01/05/2017 4:14 PM EDT 4 mg 4 mg, Intravenous, EVERY 30 MIN PRN, Starting on Marilyn 01/05/17 at 1615, Until Marilyn 01/05/17 at 1740, Nausea, May repeat 4 mg once in 30 minutes. If multiple antiemetics ordered, use ondansetron first and if ineffective use prochlorperazine second and if ineffective use promethazine, PACU Recovery PHENYLephrine HCl in NS (PF) Given 01/05/2017 3:56 PM EDT 160 mc g (VONDA-SYNEPHRINE) 0.8 mg/10 mL (80 mcg/mL) multi-dose injection Syrg PRN, Starting on Marilyn 01/05/17 at 1527, Until Marilyn 01/05/17 at 1631, Anesthesia Intra-op, Routine Given 01/05/2017 3:53 PM EDT 160 mcg Given 01/05/2017 3:43 PM EDT 240 mcg propofol (DIPRIVAN) 10 mg/mL bolus injection Given 7 2:55 PM EDT 50 mg (Anesthesia) PRN, Starting on Marilyn 01/05/17 at 1445, Until Marilyn 01/05/17 at 1631, Anesthesia Intra-op Given 01/05/2017 2:54 PM EDT 50 mg Given 01/05/2017 2:51 PM EDT 50 mg propofol (DIPRIVAN) infusion New Bag 01/05/2017 3:08 PM 25 mcg/kg/min 11.7 mL/hr CONTINUOUS PRN, Starting on EDT Marilyn 01/05/17 at 1508, Until Marilyn 01/05/17 at 1631, Anesthesia Intra-op, Routine rocuronium (ZEMURON) multi-dose injectio n Given 01/05/2017 2:46 PM EDT 50 mg PRN, Starting on Marilyn 01/05/17 at 1446, Until Marilyn 01/05/17 at 1631, Anesthesia Intra-op, Routine documented in this encounter Care Teams Marketing Finance Manager Relationship Specialty Start Date End Date Berkley Madrigal MD PCP - General 04/13/10 02/15/18 [facility] Katarina [address] [place] [address] documented as of this encounter
--- OUTSIDE RECORDS SUMMARY | 2022-02-11 01:10 | XMS_ITS | Encounter Summary ---
:1950 Author Organization [facility] Address [facility] [place] [address] Care Team Providers Name Role Phone Berkley Madrigal MD Primary Care Provider Reason for Visit Reason Onset Date Comments Appointment 08/04/2016 Encounter Details Date Type Department Care Team Description 08/04/2016 Telephone Ophthalmology at [facility] Pavan Coffey, Appointment [facility] [place] [address] [facility] [phone] OPHTHALMOLOGY DE PT. [place], [place] [address] (Wo rk) Social History Tobacco Use Types Packs/Day Years Used Date Never Smoker Smokeless Tobacco: Never Used Alcohol Use Standard Drinks/Week Comments Yes 0 (1 standard drink = 0.6 oz pure alcoho l) once per year Alcohol Habits Answer Date Recorded How often do you have a drink containing alcohol? Not asked How many drinks containing alcohol do you have on a Not aske d typical day when you are drinking? How often do you have six or more drinks on one occasion? No t asked Comment: once per year 07/08/2016 Financial Resource Strain Answer Date Recorded How [...] this encounter Miscellaneous Notes Telephone Encounter - Aracelis Camargo - 08/04/2016 3:03 PM EDT Pt declined offer o f help to GERRI 3-4W FUV per CBC with Dr Walker stating that she would set this upherself. documented in this encounter Plan of Treatment Upcoming Encounters Date Type Specialty Care Team Description 02/11/2022 Scheduled View Only Hematology and Ángel Fischer, Oncology [facility] ONCOLOGY [place], [place] [address] (Wo kash) 02/11/2022 TH Visit (TeleHealth) Hematology and Ángel Fischer Oncology [facility] DR [place] 0[address] (Shana hewitt) 02/11/2022 Infusion Hematology and Oncology 02/11/2022 Office Visit Hematology and Jazzy Armendariz R D [facility] DRIVE HEMATOLOGY AND ONCOLOGY [place], [place] 0375 (Wo rk) 02/22/2022 TH Visit (TeleHealth) Hematology and Yaquelin Celis Oncology E, [facility] HEMATOLOGY AND ONCOLOGY [place], [place] 0375 (Wo rk) 02/25/2022 Office Visit Hematology and Ángel Fischer, Oncology [facility] ONCOLOGY [place], [place] 0375 (Wo rk) 02/25/2022 Infusion Hematology and Oncology 03/10/2022 Scheduled View Only Obstetrics and Nurse, Julian COLEMAN, remote medical coder 03/10/2022 Office Visit Obstetrics and Shazia Whitley, Gynecology [facility] UROGYNECOLOGY [place], [place] 0375 (Wo rk) 03/11/2022 Office Visit Hematology and Ángel Fischer MD [facility] [place] [address] Oncology Alyssa Joseph, [address] MEDICAL ONCOLOGY [place], [place] [phone] 03/11/2022 Infusion Hematology and Oncology 03/25/2022 Office Visit Hematology and Alyssa Joseph, Oncology [address] MEDICAL ONCOLOGY [place], [place] [phone] (Wo rk) 03/25/2022 Infusion Hematology and Oncology 03/31/2022 Office Visit Hematology and Alan Livingston M D [facility] HEMATOLOGY/[place] [address] Oncology Nilam So, DIGITAL COORDINATOR [facility] DR HEMATOLOGY/[place] [address] 04/08/2022 Office Visit Hematology and Ángel Fischer MD [facility] [address] Oncology Alyssa Joseph, [address] MEDICAL ONCOLOGY [place], [place] [phone] 04/08/2022 Infusion Hematology and Oncology documented as of this encounter Visit Diagnoses Not on filedocumented in this encounter Care Teams Disulfurizer Tender Relationship Specialty Start Date End Date Berkley Madrigal MD PCP - General 04/13/10 02/15/18 AYLEEN Bray [address] [place], [place] [phone] documented as of this encounter
--- OUTSIDE RECORDS SUMMARY | 2022-02-11 01:10 | XMS_ITS | Encounter Summary ---
:1950 Author Organization [facility] [address] Care Team Providers Name Role Phone Berkley Madrigal MD Primary Care Provider Reason for Visit Reason Comments Follow-up Schedule Office Case Encounter Details Date Type Department Care Team Description 09/16/2016 Office Visit Hematology and Stefania Ingram Acute sa ddle pulmonary embolism with acute cor pulmonale; Oncology at [facility] MD Bridger Anticoagulated by anticoagulation treatm ent; [facility] Bruising [facility] [address] [place]dez [place] HEMATOLOGY/ONCOLO [address] G[place] DEPT. [phone] [place], [place] [address] Social History Tobacco Use Types [...] Sign Reading Time Taken Comments Blood Pressure 130/65 09/16/2016 11:10 AM EDT Pulse 73 09/16/2016 11:10 AM EDT Temperature 36.6 ??C (97.9 ??F) 09/16/2016 11:10 AM EDT Respiratory Rate 16 09/16/2016 11:10 AM EDT Oxygen Saturation 96% 09/16/2016 11:10 AM EDT Inhaled Oxygen Concentration - - Weight 76.8 kg (169 lb 6.4 oz) 09/16/2016 11:10 AM EDT Height 163.6 cm (5' 4.41) 09/16/2016 11:10 AM EDT Body Mass Index 28.71 09/16/2016 11:10 AM EDT documented in this encounter Progress Notes Stefania Ingram MD - 09/16/2016 11:00 AM EDT [facility] [place] [address] THROMBOSIS FOLLOW-UP DATE OF VISIT 09/16/2016 Patient Carol Stock 1950 PRIMARY CARE PHYSICIAN Berkley Madrigal MD THROMBOSIS PROBLEM LIST: Saddle pulmonary embolism, 07/14/2016 Rx TPA --> heparin --> enoxaparin to current day Associated with eye surgery, 07/11/2016, CLL INTERVAL HISTORY: Carol Stock is a 66 year-old woman with CLL and a post-op saddle PE complicated by a thigh hematoma, bleeding around the operated eye and an ischemic CVA, who is seen in follow-up to review anticoagulation recommendations. Carol was discharged on enoxaparin, 80 mg twice daily and developedlarge injection site nodules and bruises. The dose was reduced to 70 mg twice daily and she has continued to note large, painful injection site bruises and nodules. She notes some memory and word finding difficulty after the CVA, nevertheless, she is much improved overall. The left thigh hematoma has resolved and, though she still has some dyspnea on exertion, she continues to improve in that realm as well. Her operated eye has a cataract that needs to be removed and the vision is deteriorating in her other eye such that retinal surgery is being contemplated. Finally, she has a cystocele that she would like to have repaired when possible. In the office today she reports feeling well. She is looking forward to retiring in a few months. 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 She's hoping that she can have her eye surgeries without undue risk for recurrent VTE. PAST MEDICAL HISTORY 1. Venous thromboembolism, as above. Patient Active Problem List Diagnosis Code ??? [...] infarction I63.9 ??? On anticoagulant therapy Z79.01 OPERATIVE PROCEDURES Past Surgical History: Procedure Laterality Date ??? FOCAL LASER TREATMENT 08/14/2012 OD for ret tear ??? LASER SURGERY 08/14/2012 FOCAL,OD ??? PRO VITRECTOMY PARS PLANA REMOVE INT MEMB RETINA Right 07/11/2016 VITRECTOMY, W/ MEMBRANE STRIPPING, INTRAOCULAR TAMPONADE (WRVU 16.33) performed by Pavan Coffey MD at [facility] MAIN OR ??? RETINAL DETACHMENT SURGERY ??? RETINOPATHY SURGERY Right 07/11/2016 PPV/MP with Intraocular Tamponade OD per CBC for [place] MEDICATIONS Current Outpatient Prescriptions on File Prior to Visit Medication Sig Dispense Refill ??? cycloSPORINE (RESTASIS) [...] Cap Take 2,000 mg by mouth daily. No current facility-administered medications on file prior to visit. ADVERSE DRUG REACTIONS Allergies as of 09/16/2016 - Review Complete 09/02/2016 Allergen Reaction Noted ??? Lipitor [atorvastatin] Other (See Comments) 08/04/2016 ??? 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 Lives in [facility] Three adult children Nonsmoker REVIEW OF SYSTEMS Fevers/chills/sweats No Recent infections No Unexplained weight loss No Headache/lightheadedness/syncope No Sinus pain/pressure No Oral sores/lesions/bleeding No Sore throat/dysphagia No Nosebleeds No Cough/SOB/chest pain/heart racing Dyspnea on exertion Nausea/vomiting/dyspepsia No Abdominal pain No Diarrhea/constipation No Urinary pain, burning, incontinence No Hematuria No Penile discharge/bleeding No Skin rashes/ulcers No Back/joint pain/swelling No Leg swelling/pain/redness No Bruising/petechiae/bleeding/melena Injection site bruising Sensory/motor No Polydipsia/polyuria/heat/cold intol No Lumps/bumps/swollen glands No Other Negative except as above PHYSICAL EXAMINATION There were no vitals taken for this visit. GENERAL: Well-appearing, articulate white male. HEENT: Oropharynx clear; no mucosal lesions, petechiae, bleeding, thrush or ulcers. NECK: Supple; no cervical, supraclavicular or submental adenopathy. CHEST: Clear to auscultation/percussion. No rales, rhonchi, wheezes. HEART: Regular rate and rhythm; no murmur, rub, gallop ABDOMEN: Soft, non-tender, no hepatosplenomegaly. GENITOURINARY: Exam deferred. EXTREMITIES: No clubbing, cyanosis or edema. No erythema, tenderness or palpable cords. No venous varicosities. Mild skin discoloration lateral left thigh at site of previous hematoma. Peripheral pulses palpable. MUSCULOSKELETAL: Spine nontender. Full ROM all joints. No acutely inflamed joints. SKIN: Small bruise, right thigh. Numerous large ecchymoses on abdomen at injection sites. No petechiae, ulcers or rashes. LYMPH: No palpable lymph nodes. NEUROLOGIC: Alert, oriented. Speech clear, coherent. No focal deficits noted. PSYCHIATRIC: Appropriate affect, no apparent distress. LABORATORY STUDIES Results for CAROL STOCK ( ) as of 09/16/2016 16:03 Ref. Range 07/19/2016 04:48 BUN Latest Ref Range: 8 - 18 mg/dL 10 Creatinine Latest Ref Range: 0.70 - 1.20 mg/dL 0.67 (L) Estimated GFR Latest Ref Range: >=60 >60 Glucose Fasting Latest Ref Range: 65 - 99 mg/dL 138 (H) Calcium Latest Ref Range: 8.5 - 10.5 mg/dL 7.9 (L) Total Protein Latest Ref Range: 6.1 - 8.0 gm/dL 5.0 (L) Albumin Latest Ref Range: 3.2 - 5.2 gm/dL 2.8 (L) Total Bilirubin Latest Ref Range: 0.2 - 1.3 mg/dL 0.7 Bili, Direct Latest Ref Range: 0.0 - 0.3 mg/dL 0.1 Alk Phos Latest Ref Range: 40 - 104 unit/L 53 AST Latest Ref Range: 0 - 30 unit/L 54 (H) ALT Latest Ref Range: 0 - 30 unit/L 46 (H) RADIOGRAPHIC STUDIES I have personally reviewed images from the following studies: None. IMPRESSION Carol Stock is a 66 y.o. man with a post-op episode of significant VTE associated with the ongoing risk factor of CLL. Though clearly precipitated by surgery, the event was life threatening, thus residential thromboprophylaxis is in her best interest. Though initial treatment with LMWH is recommended in patients with cancer, the enoxaparin injections are really intolerable. I feel comfortable switching her to apixaban at this point. PLAN/RECOMMENDATIONS I reviewed my impression with Carol and she would like to switch to the oral agent. Accordingly, I have e-faxed a prescription for apixaban, 5 mg twice daily #60, RF0 to the [facility] pharmacy in [facility]. I will defer to Dr. Madrigal to continue the prescription thereafter through her mail order pharmacy. She should have apixaban, 5 mg twice daily through the end of December. After that point (a total of 6months of anticoagulation) the dose can be reduced to 2.5 mg twice daily for the residential. The lower dose is as effective for VTE prophylaxis as the higher dose after the first 6 months, but is associated with less bleeding. The recommendation to continue apixaban for the terminal supervisor should be revisited periodically over the years as the risk/benefit calculation may change with time. The cataract surgery may be performed any time since the anticoagulation does not need to be stopped. The retinal surgery (as well as any other elective surgeries) should be postponed at least until shehas completed 3 months of anticoagulation (i.e., to end of September) as the anticoagulation will need to be stopped briefly. For the retinal surgery, apixaban should be held for 48 hours prior to the surgery and restarted on the morning of post-op day 1. I recommended that she NOT take low dose daily aspirin along with apixaban, as its use concurrently with anticoagulation does not appear to add significant efficacy for primary or secondary prevention of either venous or arterial thrombosis but does add to bleeding risk. I reminded her that although her risk for a recurrent event is low it is not zero despite anticoagulation, and I reviewed the signs and symptoms of DVT and PE and reminded her to seek medical attentionexpeditiously should they occur. Carol Stock had the opportunity to ask questions and indicated that all her questions were answered to her satisfaction. While I won't make an official follow up appointment for her at this time, she is seeing Dr. Livingston on 09/26 at and I will try to catch up with her then to see how she is doing with apixaban. Additionally, I'll be happy to see her back at any time in the future as appropriate and would especially welcome the opportunity to provide recommendations for anticoagulant management around invasiveprocedures as the need arises. Stefania Ingram MD Manager Relocation, [facility] documented in this encounter Plan of Treatment Upcoming Encounters Date Type Specialty Care Team Description 02/11/2022 Scheduled View Only Hematology and Ángel Fischer Oncology [facility] ONCOLOGY [place], [place] [address] (Shana hewitt) 02/11/2022 TH Visit (TeleHealth) Hematology Ángel Kimbrough Oncology [facility] DR LYNDSAY [place], [place] [address] (Shana hewitt) 02/11/2022 Infusion Hematology and Oncology 02/11/2022 Office Visit Hematology and Jazzy Armendariz R D Oncology [facility] HEMATOLOGY AND ONCOLOGY [place], [place] 0[address] (Wo rk) 02/22/2022 TH Visit (TeleHealth) Hematology and Yaquelin Celis Oncology E, [facility] HEMATOLOGY AND ONCOLOGY [place], [place] 0375 (Wo rk) 02/25/2022 Office Visit Hematology and Ángel Fischer Oncology [facility] ONCOLOGY [place], [place] 0[address] (Wo rk) 02/25/2022 Infusion Hematology and Oncology 03/10/2022 Scheduled View Only Obstetrics and Nurse, Julian COLEMAN, yarn texturing machine operator 03/10/2022 Office Visit Obstetrics and Shazia Whitley, Gynecology [facility] UROGYNECOLOGY [place], [place] 0[address] (Wo rk) 03/11/2022 Office Visit Hematology and Ángel Fischer MD [facility] [address] Oncology Alyssa Joseph[address] MEDICAL ONCOLOGY [place], [place] [phone] 03/11/2022 Infusion Hematology and Oncology 03/25/2022 Office Visit Hematology and Alyssa Joseph Oncology [address] MEDICAL ONCOLOGY [place], [place] [phone] (Wo rk) 03/25/2022 Infusion Hematology and Oncology 03/31/2022 Office Visit Hematology and Alan Livingston M D [facility] HEMATOLOGY/[place] [address] Oncology Nilam So, [facility] HEMATOLOGY/[place] [address] 04/08/2022 Office Visit Hematology and Ángel Fischer MD [facility] [place] [address] Oncology Alyssa Joseph, DIRECTOR FURNITURE [address] [place] [address] [place] [address] 04/08/2022 Infusion Hematology and Oncology documented as of this encounter Visit Diagnoses Diagnosis Acute saddle pulmonary embolism with acu te cor pulmonale Anticoagulated by anticoagulation treatm ent Encounter for long-term (current) use of anticoagulants Bruising Contusion of unspecified site documented in this encounter Care Teams Mechanic Field Service Relationship Specialty Start Date End Date Berkley Madrigal MD PCP - General 04/13/10 02/15/18 AYLEEN Bray [address] [place] [address] documented as of this encounter
--- OUTSIDE RECORDS SUMMARY | 2022-02-11 01:10 | XMS_ITS | Encounter Summary ---
:1950 Author Organization [facility] [place] [address] Care Team Providers Name Role Phone Berkley Madrigal MD Primary Care Provider Encounter Details Date Type Department Care Team Description 01/30/2017 Office Visit Hematology and Alan Livingston M D [facility] DR HEMATOLOGY/[place] [address] Type 2 diabetes mellitus without complic ation, without long- term current use of insulin; Oncology at [facility] Nilam So, TRAUMA DOCTOR [facility] DR HEMATOLOGY/[place] [address] [place] [id number] Social History Tobacco Use Types Packs/Day Years [...] Sign Reading Time Taken Comments Blood Pressure 134/61 01/30/2017 3:29 PM EDT Pulse 90 01/30/2017 3:29 PM EDT Temperature 36.3 ??C (97.3 ??F) 01/30/2017 3:29 PM EDT Respiratory Rate 17 01/30/2017 3:29 PM EDT Oxygen Saturation 96% 01/30/2017 3:29 PM EDT Inhaled Oxygen Concentration - - Weight 78.5 kg (173 lb) 01/30/2017 3:29 PM EDT Height 164 cm (5' 4.57) 01/30/2017 3:29 PM EDT Body Mass Index 29.18 01/30/2017 3:29 PM EDT documented in this encounter Progress Notes Nilam So, TRAUMA DOCTOR - 01/30/2017 3:45 PM EDT Subjective: Patient ID: Carol [...] Anahi is doing well - she did well with her vitrectomy surgery - vision is much better. She held apixaban for 2 days prior to procedure and re-started it day after. Overall she is feeling 'normal'. Sheis looking [place] to a [place] trip next summer to visit her daughter who is stationed there for the next 2 years. 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 She denies any new adenopathy. No drenching night sweats but continues with hot flashes. Her energy has been good - she has a new adorable 11 week old puppy! Review of Systems Constitutional: Negative. HENT: Negative. Eyes: Negative. Respiratory: Negative. Negative for cough and shortness of breath. Cardiovascular: Negative. Negative for chest pain, palpitations and leg swelling. Gastrointestinal: Negative. Negative for constipation, diarrhea, nausea and vomiting. Genitourinary: Negative. Musculoskeletal: Negative. Skin: Negative. Neurological: Positive for numbness. Negative for weakness. Only residual from CVA is slight numbness right pinky finger. Word finding better - speech normal. Psychiatric/Behavioral: Negative. Objective: Physical Exam Constitutional: She [...] Lymphadenopathy: She has cervical adenopathy. She has no axillary adenopathy. Right: No inguinal and no supraclavicular adenopathy present. Left: No inguinal and no supraclavicular adenopathy present. + 1cm bilat cervical nodes Neurological: She is alert and oriented to person, place, and time. Skin: Skin is warm and dry. Psychiatric: She has a normal mood and affect. Recent Results (from the past 72 hour(s)) Comprehensive metabolic panel (non-fasting) Result Value Ref Range Glucose Lvl 84 65 - 199 mg/dL BUN 23 (H) 8 - 18 mg/dL Creatinine 0.95 0.70 - 1.20 mg/dL Sodium 143 135 - 145 mmol/L Potassium 4.0 3.5 - 5.0 mmol/L Chloride 102 98 - 107 mmol/L CO2 28 22 - 31 mmol/L Anion Gap 13 5 - 15 mmol/L Calcium 9.2 8.5 - 10.5 mg/dL Total Protein 6.6 6.1 - 8.0 gm/dL Albumin 4.3 3.2 - 5.2 gm/dL AST 20 0 - 30 unit/L ALT 20 0 - 30 unit/L Alk Phos 70 40 - 104 unit/L Total Bilirubin 0.3 0.2 - 1.3 mg/dL Estimated GFR 59 (L) >=60 Lactate Dehydrogenase Result Value Ref Range LDH 204 110 - 220 unit/L Hemogram Result Value Ref Range WBC 89.2 (CRIT) 4.0 - 9.5 x10(3)/mcL RBC 4.55 4.00 - 5.21 x10(6)/mcL Hemoglobin 13.7 11.7 - 15.5 gm/dL Hematocrit 42.0 35.7 - 45.8 % MCV 92.3 82.6 - 94.4 fL MCH 30.1 27.1 - 32.0 pg MCHC 32.6 31.7 - 35.0 gm/dL Platelets 162 145 - 357 x10(3)/mcL RDWSD 47.0 (H) 37.0 - 46.0 fL RDWCV 14.0 11.5 - 14.1 % MPV 11.5 7.6 - 12.9 fL nRBC % Auto 0.0 % nRBC Abs Auto 0.000 0.000 - 0.000 x10(3)/mcL Differential, Automated Result Value Ref Range Neutrophils % 5.8 % Neutr Abs (ANC) 5.19 1.70 - 6.10 x10(3)/mcL Lymphocytes % 91.7 % Lymphocytes Abs 81.8 (H) 0.9 - 3.2 x10(3)/mcL Monocytes % 2.0 % Monocyte Abs 1.8 (H) 0.3 - 0.9 x10(3)/mcL Eosinophils % 0.2 % Eosinophils Abs 0.2 0.0 - 0.4 x10(3)/mcL Basophils % 0.1 % Basophils Abs 0.1 0.0 - 0.1 x10(3)/mcL Immature Gran % 0.20 % Claudia Gran Abs 0.18 (H) 0.00 - 0.04 x10(3)/mcL Scan, Peripheral Blood Result Value Ref Range Plat Estimate Normal RBC Morphology Normal Smudge Cells Present BP 134/61 (Patient Position: Sitting) Pulse 90 Temp 36.3 ??C (97.3 ??F) (Temporal) Resp 17 Ht 164 cm (5' 4.57) Wt 78.5 kg (173 lb) SpO2 96% BMI 29.18 kg/m2 Assessment and Plan: 1. Assessment: CLL. Counts stable, No worrisome or symptomatic adenoapthy. No B symptoms, ALC doubling time has actually decreased over the past 6 months - this does coincide with steriod eye drop use.She has had no recurrent infections, no signs of AIHA or ITP. No concern for transformation. No indication for treatment at this time. Reviewed CLL and indications for therapy, Also reviewed inherent increase risk for infection. Influenza = due this fall - awaiting clinics Pneumococcal - UTD 2. s/p saddle PE and CVA's - doing well - doing well on apixaban - aware of need to hold prior to surgery/procedures other than cataract surgery. Per Dr. Medina, at that time can consider decreasingto 2.5 mg BID. Reviewed risk of bleeding/thrombosis. ?? Plan: We will continue to monitor in hematology clinic. Reviewed CLL and indications for treatment. Carol will return to hematology in 3 months. We will transition her care closer to home - I will see her in [facility]. she will call if there are any problems before then. . documented in this encounter Plan of Treatment Upcoming Encounters Date Type Specialty Care Team Description 02/11/2022 Scheduled View Only Hematology and Ángel Fischer Oncology [facility] ONCOLOGY [place] [address] (Wo rk) 02/11/2022 TH Visit (TeleHealth) Hematology and Ángel Fischer Oncology [facility] DR [place]Y [place], [place] [address] (Wo rk) 02/11/2022 Infusion Hematology and Oncology 02/11/2022 Office Visit Hematology and Jazzy Armendariz R D Oncology [facility] HEMATOLOGY AND ONCOLOGY [place], [place] [address] (Wo rk) 02/22/2022 TH Visit (TeleHealth) Hematology and Yaquelin Celis Oncology E, [facility] HEMATOLOGY AND ONCOLOGY [place], [place] [address] (Wo rk) 02/25/2022 Office Visit Hematology and Ángel Fischer Oncology [facility] DR [place], [place] [address] (Wo rk) 02/25/2022 Infusion Hematology and Oncology 03/10/2022 Scheduled View Only Obstetrics and Nurse, Julian COLEMAN, library circulation clerk 03/10/2022 Office Visit Obstetrics and Shazia Whitley Gynecology TRAUMA DOCTOR [facility] UROGYNECOLOGY [place], [place] [address] (Wo rk) 03/11/2022 Office Visit Hematology and Ángel Fischer MD [facility] [place] [address] Oncology Alyssa Joseph[address] MEDICAL ONCOLOGY [place], [place] [phone] 03/11/2022 Infusion Hematology and Oncology 03/25/2022 Office Visit Hematology and Alyssa Joseph, Oncology [address] MEDICAL ONCOLOGY [place], [place] [phone] (Wo rk) 03/25/2022 Infusion Hematology and Oncology 03/31/2022 Office Visit Hematology and Alan Livingston M D [facility] DR HEMATOLOGY/[place] [address] Oncology [facility] [address] 04/08/2022 Office Visit Hematology and Ángel Fischer MD [facility] [place] [address] Oncology [address]lyssa Joseph[address] MEDICAL ONCOLOGY [place], [place] [phone] 04/08/2022 Infusion Hematology and Oncology documented as of this encounter Visit Diagnoses Diagnosis Type 2 diabetes mellitus without complic ation, without long-term current use of insulin Chronic lymphocytic leukemia Chronic lymphoid leukemia, without menti on of having achieved remission documented in this encounter Care Teams Manager Diabetes Relationship Specialty Start Date End Date Berkley Madrigal MD PCP - General 04/13/10 02/15/18 AYLEEN Bray [address] [place], [place] [phone] documented as of this encounter
--- OUTSIDE RECORDS SUMMARY | 2022-02-11 01:10 | XMS_ITS | Encounter Summary ---
:1950 Author Organization [facility] [place] [address] Care Team Providers Name Role Phone Berkley Madrigal MD Primary Care Provider Encounter Details Date Type Department Care Team Description 09/26/2016 Hospital Encounter Hematology and CLL ([facility] Oncology at [facility] lymphocytic leukemia) [place] [address] Social History Tobacco Use Types Packs/Day [...] Refills Start Date End Date glucosamine sulfate Take 500 mg by mouth 0 500 mg Tablet daily. Green Tea Extract 500 Take 500 mg by mouth 0 mg Cap daily. melatonin 3 mg Tab Take 3 mg by mouth 0 nightly as needed. multivitamin capsule Take 1 capsule by mouth 0 daily. cholecalciferol, Take 2,000 mg by mouth 0 Vitamin D3, 50 mcg daily. (2,000 unit) Capsule apixaban (ELIQUIS) 5 Take 1 tablet by mouth 60 tablet 0 10/16/2016 mg Tablet 2 times daily for [address] 1 drop into the 0 1 (RESTASIS) 0.05 % left eye 2 times daily. Dropperette omeprazole (PRILOSEC) Take 20 mg by mouth 0 09/07/2021 20 mg Capsule, daily. Delayed Release(E.C.) enoxaparin (LOVENOX) Inject 0.8 mLs 30 Syringe 11 07/22/2016 12/01/2016 80 mg/0.8 mL Syringe subcutaneously every 12 hours. imipramine (TOFRANIL) Take 10 mg by mouth 0 11/04/2019 10 mg tablet every morning. documented as of this encounter Plan of Treatment Upcoming Encounters Date Type Specialty Care Team Description 02/11/2022 Scheduled View Only Hematology and Ángel Fischer Oncology [facility] ONCOLOGY [place], [place] [address] (Wo rk) 02/11/2022 TH Visit (TeleHealth) Hematology Ángel Kimbrough Oncology [facility] [address] [place]MA[place], [place] [address] (Wo rk) 02/11/2022 Infusion Hematology and Oncology 02/11/2022 Office Visit Hematology and Jazzy Armendariz R Katarina Oncology [facility] [address] HEMATOLOGY AND ONCOLOGY [place], [place] 0[address] (Wo rk) 02/22/2022 TH Visit (TeleHealth) Hematology and Yaquelin Celis Oncology E, [facility] HEMATOLOGY AND ONCOLOGY [place], [place] 0375 (Wo rk) 02/25/2022 Office Visit Hematology Ángel Kimbrough Oncology [facility] [address] UMANA [place], [place] [address] (Wo rk) 02/25/2022 Infusion Hematology and Oncology 03/10/2022 Scheduled View Only Obstetrics and Nurse, Julian COLEMAN, manager life 03/10/2022 Office Visit Obstetrics and Shazia Whitley Gynecology [facility] UROGYNECOLOGY [place], [place] [address] (Wo rk) 03/11/2022 Office Visit Hematology and Ángel Fischer MD [facility] [place] [address] Oncology Alyssa Joseph, [address] [place] [address] 03/11/2022 Infusion Hematology and Oncology 03/25/2022 Office Visit Hematology and Alyssa Joseph, Oncology [address] MEDICAL ONCOLOGY [place], [place] [address] (Wo rk) 03/25/2022 Infusion Hematology and Oncology 03/31/2022 Office Visit Hematology and Alan Livingston M D [facility] DR HEMATOLOGY/[place] [address] Oncology Nilam So, [facility] DR HEMATOLOGY/[place] [address] 04/08/2022 Office Visit Hematology and Ángel Fischer MD [facility] [place] [address] Oncology Alyssa Joseph[address] MEDICAL ONCOLOGY [place], [place] [id number] 04/08/2022 Infusion Hematology and Oncology documented as of this encounter Procedures Procedure Name Priority Date/Time Associated Comments Diagnosis IMMUNOGLOBULINS, Routine 09/26/2016 2:50 PM CLL (chronic Resul ts for this QUANTITATIVE EDT lymphocytic procedure are i n leukemia) the results section. SCAN, PERIPHERAL BLOOD Routine 09/26/2016 2:50 PM Results for this EDT procedure are i n the results section. HEMOGRAM Routine 09/26/2016 2:50 PM CLL (chronic Results f or this EDT lymphocytic procedure are i n leukemia) the results section. DIFFERENTIAL, Routine 09/26/2016 2:50 PM CLL (chronic Results for this AUTOMATED EDT lymphocytic procedure are i n leukemia) the results section. CBC (WITH DIFF) Routine 09/26/2016 2:50 PM CLL (chronic EDT lymphocytic leukemia) LACTATE DEHYDROGENASE Routine 09/26/2016 2:50 PM CLL (chronic Results for this EDT lymphocytic procedure are i n leukemia) the results section. COMPREHENSIVE Routine 09/26/2016 2:50 PM CLL (chronic Results for this METABOLIC PANEL EDT lymphocytic procedure ar e in (NON-FASTING) leukemia) the results section. documented in this encounter Results Scan, Peripheral Blood (09/26/2016 2:50 PM EDT) Analysis Performed At Patho logist Time Signature Plat Estimate Normal [facility] RBC Morphology Normal [facility] Smudge Cells Present [facility] Specimen Anatomical Collection Method Collection Time Receive d Time (Source) Location / / Volume Laterality Blood specimen 09/26/2016 2:50 PM 017 3:11 (specimen) EDT PM EDT Resulting Agency Comment Spec In Lab Alan Livingston MD HEMATOLOGY ORDERABLES Performing Organization Address City/State/ZIP Code Phon e Number [place] [phone] (ABNORMAL) Differential, Automated (09/26/2016 2:50 PM EDT) Patholo gist Method Time Signature Neutrophils % 5.9 % [facility] Neutr Abs (ANC) 4.60 1.70 - [facility] 6.10 [facility] x10(3)/[facility] L LABORATORY Lymphocytes % 92.7 % [facility] Lymphocytes Abs 72.4 (H) 0.9 - 3.2 [facility] x10(3)/[facility] LABORATORY Monocytes % 0.9 % [facility] Monocyte Abs 0.7 0.3 - 0.9 [facility] x10(3)/[facility] LABORATORY Eosinophils % 0.3 % [facility] Eosinophils Abs 0.2 0.0 - [address].4 [facility] x10(3)/[facility] LABORATORY Basophils % 0.1 % [facility] Basophils Abs 0.1 0.0 - 0.1 [facility] x10(3)/[facility] LABORATORY Immature Gran % 0.10 % [facility] Comment: Immature granulocytes(IG's)percentage an d absolute count will include metamyelocytes, myelocytes, and promyelo cytes. Blood smears from CBCs yielding IG's will be scanned manually for concor dance. If this scan disagrees with the automated IG or if promyelocytes are not ed, a manual differential will be performed. Claudia Gran Abs 0.10 (H) 0.00 - 0.04 x10(3)/[facility] LABORATORY Specimen Anatomical Collection Method Collection Time Receive d Time (Source) Location / / Volume Laterality Blood specimen 09/26/2016 2:50 PM 017 3:11 (specimen) EDT PM EDT Resulting Agency Comment Spec In Lab Alan Livingston MD HEMATOLOGY ORDERABLES Performing Organization Address City/State/[place] [address] (ABNORMAL) Hemogram (09/26/2016 2:50 PM EDT) athologist Signature WBC 78.1 4.0 - 9.5 [facility] (Critical) x10(3)/[facility] LABORATORY Comment: This result has been called to MADIHA MEZA 3K by DOROTEO BARRAGAN on 09 26 2016 at 1550, and has been read back. RBC 4.63 4.00 - 5.21 x10(6)/[facility] LABORATORY Hemoglobin 13.8 11.7 - 15.5 gm/dL [facility]ORY Hematocrit 44.0 35.7 - 45.8 % [facility] LAB[facility]ORY MCV 95.0 (H) 82.6 - 94.4 [facility] LABORATORY MCH 29.8 27.1 - 32.0 pg [facility] MCHC 31.4 (L) 31.7 - 35.0 gm/dL [facility] LABORATORY Platelets 206 145 - 357 x10(3)/[facility] LABORATORY RDWSD 49.0 (H) 37.0 - 46.0 [facility] LABORATORY RDWCV 14.0 11.5 - 14.1 % [facility] LABORATORY MPV 11.0 7.6 - 12.9 [facility] LABORATORY nRBC % Auto 0.0 % [facility] LABORATORY nRBC Abs Auto 0.000 0.000 - 0.000 x10(3)/[facility] LABORATORY Specimen Anatomical Collection Method Collection Time Receive d Time (Source) Location / / Volume Laterality Blood specimen 09/26/2016 2:50 PM 017 3:11 (specimen) EDT PM EDT Resulting Agency Comment Spec In Lab Alan Livingston MD HEMATOLOGY ORDERABLES Performing Organization Address City/State/ZIP Code Phon e Number [address] (ABNORMAL) Immunoglobulins, Quantitative (09/26/2016 2:50 PM EDT) athologist Signature IgG 478 (L) 700 - 1,600 MADIHA BOBO mg/dL [facility] LABORATORY IgA 65 (L) 70 - 400 [facility] BOBO mg/dL [facility] IgM 27 (L) 40 - 230 [facility] mg/dL [facility] LABOR[facility]ORY Specimen Anatomical Collection Method Collection Time Receive d Time (Source) Location / / Volume Laterality Blood specimen 09/26/2016 2:50 PM 017 3:11 (specimen) EDT PM EDT Resulting Agency Comment Spec In Lab Alan Livingston MD CHEMISTRY ORDERABLES Performing Organization Address City/State/[place] [address] Lactate Dehydrogenase (09/26/2016 2:50 PM EDT) athologist Signature LDH 204 110 - 220 [facility] unit/L [facility] LABORATORY Specimen Anatomical Collection Method Collection Time Receive d Time (Source) Location / / Volume Laterality Blood specimen 09/26/2016 2:50 PM 017 3:11 (specimen) EDT PM EDT Resulting Agency Comment Spec In Lab Alan Livingston MD CHEMISTRY ORDERABLES Performing Organization Address City/[facility]/ZIP [facility] [address] (ABNORMAL) Comprehensive metabolic panel (non-fasting) (09/26/2016 2:50 PM EDT) athologist Signature Glucose Lvl 124 65 - 199 [facility] BOBO mg/dL [facility] LAB[facility]ORY Comment: Diabetes: >=200 mg/dL plus symp toms BUN 16 8 - 18 mg/dL [facility] Creatinine 0.90 0.70 - 1.20 mg/dL [facility] Comment: Please note that the pediatric reference intervals supplied above were not validated at [facility]. Results from pediatri c patients should be interpreted in conjunction to the patient's age, height and muscle mass. Sodium 143 135 - 145 mmol/L [facility] Potassium 4.2 3.5 - 5.0 mmol/L [facility] Comment: Please note: ??Patients with WBC >100,00 0 may have falsely elevated Potassium levels. ??For accurate Potassium quantif ication in these patients send serum separator tube (gold top) for subsequent determinations. ??Contact the Clinical Chemistry Laboratory if there are any qu estions. Chloride 100 98 - 107 mmol/L [facility] CO2 29 22 - 31 mmol/L [facility] Anion Gap 14 5 - 15 mmol/L [facility] Calcium 9.3 8.5 - 10.5 mg/dL [facility] Total Protein 6.6 6.1 - 8.0 gm/dL [facility] LABORATORY Albumin 4.4 3.2 - 5.2 gm/dL [facility] AST 19 0 - 30 unit/L [facility] ALT 22 0 - 30 unit/L [facility] Alk Phos 67 40 - 104 unit/L [facility] Total Bilirubin <0.2 (L) 0.2 - 1.3 mg/dL [facility] LABORATORY Bili, Direct <0.1 0.0 - 0.3 mg/dL [facility] Estimated GFR >60 >=60 [facility] Comment: This estimated [...] the following links into your internet browser. [email or web address] Specimen Anatomical Collection Method Collection Time Receive d Time (Source) Location / / Volume Laterality Blood specimen 09/26/2016 2:50 PM 017 3:11 (specimen) EDT PM EDT Resulting Agency Comment Spec In Lab Alan Livingston MD CHEMISTRY ORDERABLES Performing Organization Address City/State/[place] [address] documented in this encounter Visit Diagnoses Diagnosis CLL (chronic lymphocytic leukemia) Chronic lymphoid leukemia, without menti on of having achieved remission documented in this encounter Care Teams Finisher Screwdown Relationship Specialty Start Date End Date Berkley Madrigal MD PCP - General 04/13/10 02/15/18 AYLEEN D [address] [place], [place] [address] documented as of this encounter
--- OUTSIDE RECORDS SUMMARY | 2022-02-11 01:10 | XMS_ITS | Encounter Summary ---
:1950 Author Organization [facility] [place] [address] Care Team Providers Name Role Phone Berkley Madrigal MD Primary Care Provider Reason for Visit Reason Comments Post Op Encounter Details Date Type Department Care Team Description 12/01/2016 Office Visit Ophthalmology at [facility] Venkata Swartz, Macular pucker, right eye; [facility] 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 [address] [place] [address] [place]OLOG[place] [id number] Social History Tobacco Use Types Packs/Day Years [...] as of this encounter Progress Notes Venkata Candelaria MD - 12/01/2016 11:00 AM EDT ASSESSMENT: 1. Macular pucker, right eye 2. 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 Coffey's transferring care to wi. JADA s/p CE/IOL OD with Dr. Hart S/p vitrectomy, MP OD for mac hole with Dr. Coffey 07/11/16 Complicated postoperative history following vitrectomy with CBC, now taking Elequis ongoing for pulmonary embolism Patient also has leukemia Exam/Findings Today 01/04/17: OD: Fine trace residual ERM, no hole, mild CME OS: Moderate ERM, small full-thickness macular hole, relatively stable since July 2016 PLAN: Continue taper of Diclofenac and Pred Forte OD. Recommend she see Dr. Hart and he recheck an OCT and if CME is present, then restart these two drops QID and taper again over 2 months. Consent signed for OS mac hole Plan for 25G PPV, ICG, MP, gas OS under Block and MAC with ENA within 1-2 months 90 minutes Will communicate with Dr. Ingram and Dr. Livingston in Heme/onc regarding her medications in relationto vitrectomy surgery. This note to Dr. Hart, Dr. Walker, and Dr. Torrez The Ophthalmology scribe for this encounter is KAREN Dial. I performed and personally participated in the whatley and critical portions of the service. I have reviewed/updated the documentation, and confirm that all of the information is accurate as described. Venkata Candelaria MD documented in this encounter Miscellaneous Notes Addendum Note - Venkata Candelaria MD - 01/04/2017 1:41 PM EDT Addended by: VENKATA CANDELARIA on: 01/04/2017 01:41 PM Modules accepted: Orders, SmartSet documented in this encounter Plan of Treatment Upcoming Encounters Date Type Specialty Care Team Description 02/11/2022 Scheduled View Only Hematology and Ángel Fischer Oncology [facility] ONCOLOGY [place], [place] [address] (Wo rk) 02/11/2022 TH Visit (TeleHealth) Hematology Ángel Kimbrough Oncology [facility] ONCOLOGY [place], [place] 0375 (Wo rk) 02/11/2022 Infusion Hematology and Oncology 02/11/2022 Office Visit Hematology and Jazzy Armendariz, R Katarina Oncology [facility] HEMATOLOGY AND ONCOLOGY [place], [place] 0[address] (Wo rk) 02/22/2022 TH Visit (TeleHealth) Hematology and Yaquelin Celis Oncology E, [facility] HEMATOLOGY AND ONCOLOGY [place], [place] 0375 (Wo rk) 02/25/2022 Office Visit Hematology and Ángel Fischer Oncology [facility] ONCOLOGY [place], [place] 0375 (Wo rk) 02/25/2022 Infusion Hematology and Oncology 03/10/2022 Scheduled View Only Obstetrics and Nurse, Julian COLEMAN, admissions assistant 03/10/2022 Office Visit Obstetrics and Gutierrez, Shazia Baer, [facility] [place], [place] 0375 (Wo rk) 03/11/2022 Office Visit Hematology and Ángel Fischer MD [facility] [place] [place] [address] Oncology Alyssa Joseph[address] MEDICAL ONCOLOGY [place], [place] [address] 03/11/2022 Infusion Hematology and Oncology 03/25/2022 Office Visit Hematology and Alyssa Joseph Oncology [address] MEDICAL ONCOLOGY [place], [place] [address] (Wo rk) 03/25/2022 Infusion Hematology and Oncology 03/31/2022 Office Visit Hematology and Alan Livingston M D [facility] DR HEMATOLOGY/[place] [address] [facility] [address] 04/08/2022 Office Visit Hematology and Ángel Fischer MD [facility] [place] [address] Oncology Alyssa Joseph[address] MEDICAL ONCOLOGY [place], [place] [address] 04/08/2022 Infusion Hematology and Oncology documented as of this encounter Procedures Procedure Name Priority Date/Time Associated Comments Diagnosis OCT RETINA - OU - Routine 12/01/2016 1:32 PM Macular pucker, R esults for this BOTH EYES EDT right eye procedure are in Full thickness the results macular hole of section. left eye VITRECTOMY, W/ Routine 12/01/2016 12:57 Full thickness MEMBRANE STRIPPING, PM EDT macular hole of INTRAOCULAR TAMPONADE left eye documented in this encounter Results OCT [id number] EYES (12/01/2016 1:32 PM EDT) Anatomical Region Laterality Modality Other Specimen (Source) Anatomical Location Collection Method / Collectio n Time Received Time / Laterality Volume Narrative 12/01/2016 1:32 PM EDT Right Eye Quality was good. Scan locations include d subfoveal. Progression has been stable. Findings include epiretinal memb karo, cystoid macular edema. Left Eye Quality was good. Scan locations include d subfoveal. Progression has been stable. Findings include epiretinal memb karo, macular hole. 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
--- OUTSIDE RECORDS SUMMARY | 2022-02-11 01:10 | XMS_ITS | Encounter Summary ---
:1950 Author Organization [facility] [place] [address] Care Team Providers Name Role Phone Berkley Madrigal MD Primary Care Provider Reason for Visit Reason Comments Post Op Encounter Details Date Type Department Care Team Description 08/04/2016 Office Visit Ophthalmology at [facility] Pavan Mancera, [facility] [place] [address] OPHTHALMOLOGY [place], [place] [address] (Wo rk) Social History Tobacco [...] documented as of this encounter Progress Notes Pavan Coffey MD - 08/04/2016 1:15 PM EDT Postop status post vitrectomy membrane peeling for epiretinal membrane and macular hole ?? Good gas fill 50 percent Hole appears closed Anterior segment quiet with deep quiet and clear anterior segment anatomy Retina flat 360 ?? 2 weeks OCT documented in this encounter Plan of Treatment Upcoming Encounters Date Type Specialty Care Team Description 02/11/2022 Scheduled View Only Hematology Ángel Kimbrough Oncology [facility] DR [place], [place] [address] (Wo kash) 02/11/2022 TH Visit (TeleHealth) Ángel Hill Oncology [facility] DR [place], [place] [address] (Shana hewitt) 02/11/2022 Infusion Hematology and Oncology 02/11/2022 Office Visit Hematology and Jazzy Armendariz R D [facility] DRIVE HEMATOLOGY AND ONCOLOGY [place], [place] [address] (Wo rk) 02/22/2022 TH Visit (TeleHealth) Hematology and Yaquelin Celis Oncology E, [facility] HEMATOLOGY AND ONCOLOGY [place], [place] [address] (Wo rk) 02/25/2022 Office Visit Hematology and Ángel Fischer Oncology [facility] ONCOLOGY [place], [place] [address] (Wo rk) 02/25/2022 Infusion Hematology and Oncology 03/10/2022 Scheduled View Only Obstetrics and Nurse, Julian COLEMAN, marketing campaign analyst 03/10/2022 Office Visit Obstetrics and Shazia Whitley Gynecology [facility] UROGYNECOLOGY [place], [place] 0375 (Wo rk) 03/11/2022 Office Visit Hematology and Ángel Fischer MD [facility] [place] [address] Oncology Alyssa Joseph [address] MEDICAL ONCOLOGY [place], [place] [address] 03/11/2022 Infusion Hematology and Oncology 03/25/2022 Office Visit Hematology and Alyssa Joseph Oncology [address] MEDICAL ONCOLOGY [place], [place] [address] (Wo rk) 03/25/2022 Infusion Hematology and Oncology 03/31/2022 Office Visit Hematology and Alan Livingston M D [facility] HEMATOLOGY/[place] [address] Oncology Nilam So, ADENIKE [facility] DR HEMATOLOGY/[place] [address] 04/08/2022 Office Visit Hematology and Ángel Fischer MD [facility] [place] [address] Oncology Alyssa Joseph, [address] MEDICAL ONCOLOGY [place], [place] [address] 04/08/2022 Infusion Hematology and Oncology documented as of this encounter Visit Diagnoses Diagnosis Macular pucker, bilateral Macular puckering of retina documented in this encounter Care Teams Business Ethics Professor Relationship Specialty Start Date End Date Berkley Madrigal MD PCP - General 04/13/10 02/15/18 AYLEEN Bray [address] [place], [place] [address] documented as of this encounter
--- OUTSIDE RECORDS SUMMARY | 2022-02-11 01:10 | XMS_ITS | Encounter Summary ---
:1950 Author Organization [place] [address] Care Team Providers Name Role Phone Berkley Madrigal MD Primary Care Provider Encounter Details Date Type Department Care Team Description 01/30/2017 Hospital Encounter Hematology and Chronic lymph[place] [facility] [place] [address] Social History Tobacco Use Types Packs/Day [...] 50 mcg (2,000 unit) mouth daily. Capsule moxifloxacin (VIGAMOX) Place 1 drop into 0 03/01/2017 0.5 % Drops the left eye 4 times daily. apixaban (ELIQUIS) 5 mg Take 2.5 mg [...] and Ángel Fischer Oncology [facility] [place], [place] [address] (Wo rk) 02/11/2022 TH Visit (TeleHealth) Hematology Ángel Kimbrough Oncology [facility] [address] UMANA [place], [place] [address] (Wo rk) 02/11/2022 Infusion Hematology and Oncology 02/11/2022 Office Visit Hematology and Jazzy Armendariz [facility] [place], [place] [address] (Wo rk) 02/22/2022 TH Visit (TeleHealth) Hematology and Yaquelin Celis E, [facility] [place] [place], [place] [address] (Wo rk) 02/25/2022 Office Visit Hematology Ángel Kimbrough Oncology [facility] [address] UMA[place], [place] [address] (Wo rk) 02/25/2022 Infusion Hematology and Oncology 03/10/2022 Scheduled View Only Obstetrics and Nurse, Julian COLEMAN, police justice 03/10/2022 Office Visit Obstetrics and Shazia Whitley, [facility] [place] [place] [address] (Wo rk) 03/11/2022 Office Visit Ángel Hill MD [facility] [place] [address] Oncology Alyssa Joseph, [address] [address] 03/11/2022 Infusion Hematology and Oncology 03/25/2022 Office Visit Hematology and Alyssa Joseph, Oncology [address] MEDICAL ONCOLOGY [place], [place] [id number] (Wo rk) 03/25/2022 Infusion Hematology and Oncology 03/31/2022 Office Visit Hematology and Alan Livingston M D [facility] DR HEMATOLOGY/[place] [address] Oncology [facility] DR H[facility]/[place] [address] 04/08/2022 Office Visit Hematology and Ángel Fischer MD [facility] [place] [address] Oncology Alyssa Joseph, [address] MEDICAL ONCOLOGY [place], [place] [phone] 04/08/2022 Infusion Hematology and Oncology documented as of this encounter Procedures Procedure Name Priority Date/Time Associated Comments Diagnosis SCAN, PERIPHERAL BLOOD STAT 01/30/2017 2:12 PM Results for this EDT procedure are i n the results section. HEMOGRAM STAT 01/30/2017 2:12 PM Chronic lymphocytic Re sults for this EDT leukemia procedure are i n the results section. DIFFERENTIAL, STAT 01/30/2017 2:12 PM Chronic lymphocytic R esults for this AUTOMATED EDT leukemia procedure are i n the results section. CBC (WITH DIFF) STAT 01/30/2017 2:12 PM Chronic lymphocytic EDT leukemia LACTATE DEHYDROGENASE STAT 01/30/2017 2:12 PM Chronic lymph ocytic Results for this EDT leukemia procedure are i n the results section. HEMOGLOBIN A1C STAT 01/30/2017 2:12 PM Results for this EDT procedure are i n the results section. COMPREHENSIVE STAT 01/30/2017 2:12 PM Chronic lymphocytic R esults for this METABOLIC PANEL EDT leukemia procedure ar e in (NON-FASTING) the results section. documented in this encounter Results (ABNORMAL) Hemoglobin A1c (01/30/2017 2:12 PM EDT) Analysis Performed At Patho logist Time Signature Hemoglobin A1C 5.9 (H) 4.3 - 5.6 [facility] Comment: Reference Range: 4.3 - 5.6% 5.7 - 6.4% - Increased Risk of Developin g Diabetes Mellitus >=6.5% - Consistent with diagnosis of Di abetes Mellitus In the absence of hyperglycemia (i.e. pl asma glucose > 200 mg/dL) or classic symptoms of hyperglycemia a repeat measu rement of HbA1c should be performed on a separate sample to confirm the diagnos is. Diagnosis and Classification of Diabetes Mellitus, Diabetes Care 2013; 36: Suppl. 1, S67-74 Est Avg Gluc 123 mg/dL [facility] Comment: eAG equivalents for HbA1c percentages: HbA1c(%) ?eAG(mg/dL) 6.0 ?126 6.5 ?140 7.0 ?154 7.5 ?169 8.0 ?183 8.5 ?197 9.0 ?212 9.5 ?226 10.0 ? 240 Limitations: The eAG calculation has not been validated on women, individuals below 18 years old and above 70 years old, and individuals with hemoglobinopathies. Additional resources are available on [facility] ADA website. Lázaro MIX, Lolis J, Reece R, et al. ??Tr anslating the A1C assay into estimated average glucose values. ??Diabetes Care 2008:31(8):6767-3907. Specimen Anatomical Collection Method Collection Time Receive d Time (Source) Location / / Volume Laterality Blood specimen Venous Draw / 01/30/2017 2:12 PM 2016 4:58 (specimen) Unknown EDT PM EDT Resulting Agency Comment Spec In Lab Nilam So APRN CHEMISTRY ORDERABLES Performing Organization Address City/[facility]/[place] [address] Scan, Peripheral Blood (01/30/2017 2:12 PM EDT) Analysis Performed At Patho logist Time Signature Plat Estimate Normal [facility] RBC Morphology Normal [facility] Smudge Cells Present [facility] Specimen Anatomical Collection Method Collection Time Receive d Time (Source) Location / / Volume Laterality Blood specimen 01/30/2017 2:12 PM 017 2:31 (specimen) EDT PM EDT Resulting Agency Comment Spec In Lab Nilam So APRN HEMATOLOGY ORDERABLES Performing Organization Address City/[facility]/[place] [address] (ABNORMAL) Differential, Automated (01/30/2017 2:12 PM EDT) Patholo gist Method Time Signature Neutrophils % 5.8 % [facility] Neutr Abs (ANC) 5.19 1.70 - [facility] 6.10 [facility] x10(3)/[facility] Lymphocytes % 91.7 % [facility] Lymphocytes Abs 81.8 (H) 0.9 - 3.2 [facility] x10(3)/[facility] LABORATORY Monocytes % 2.0 % [facility] Monocyte Abs 1.8 (H) 0.3 - 0.9 [facility] x10(3)/[facility] LABORATORY Eosinophils % 0.2 % [facility] Eosinophils Abs 0.2 0.0 - 0.4 [facility] x10(3)/[facility] LABORATORY Basophils % 0.1 % [facility] Basophils Abs 0.1 0.0 - 0.1 [facility] x10(3)/[facility] LABORATORY Immature Gran % 0.20 % [facility] Comment: Immature granulocytes(IG's)percentage an d absolute count will include metamyelocytes, myelocytes, and promyelo cytes. Blood smears from CBCs yielding IG's will be scanned manually for concor dance. If this scan disagrees with the automated IG or if promyelocytes are not ed, a manual differential will be performed. Claudia Gran Abs 0.18 (H) 0.00 - 0.04 x10(3)/[facility] LABORATORY Specimen Anatomical Collection Method Collection Time Receive d Time (Source) Location / / Volume Laterality Blood specimen 01/30/2017 2:12 PM 017 2:31 (specimen) EDT PM EDT Resulting Agency Comment Spec In Lab Nialm So APRN HEMATOLOGY ORDERABLES Performing Organization Address City/State/[place] [address] (ABNORMAL) Hemogram (01/30/2017 2:12 PM EDT) athologist Signature WBC 89.2 4.0 - 9.5 [facility] (Critical) x10(3)/[facility]ORATORY Comment: This result has been called to MARIA GUADALUPE POND by Milena Small on 01 30 2017 at 1508, and has been read back. RBC 4.55 4.00 - 5.21 x10(6)/[facility] LABORATORY Hemoglobin 13.7 11.7 - 15.5 gm/dL [facility] Hematocrit 42.0 35.7 - 45.8 % [facility] MCV 92.3 82.6 - 94.4 fL [facility] MCH 30.1 27.1 - 32.0 pg [facility] MCHC 32.6 31.7 - 35.0 gm/dL [facility] Platelets 162 145 - 357 x10(3)/[facility] LABORATORY RDWSD 47.0 (H) 37.0 - 46.0 fL [facility] LAB[facility]ORY RDWCV 14.0 11.5 - 14.1 % [facility] MPV 11.5 7.6 - 12.9 fL [facility] nRBC % Auto 0.0 % [facility] nRBC Abs Auto 0.000 0.000 - 0.000 x10(3)/[facility] Specimen Anatomical Collection Method Collection Time Receive d Time (Source) Location / / Volume Laterality Blood specimen 01/30/2017 2:12 PM 017 2:31 (specimen) EDT PM EDT Resulting Agency Comment Spec In Lab Nilam So APRN HEMATOLOGY ORDERABLES Performing Organization Address City/[facility]/ZIP Code Phon e Number [address] Lactate Dehydrogenase (01/30/2017 2:12 PM EDT) athologist Signature LDH 204 110 - 220 [facility] unit/L [facility] Specimen Anatomical Collection Method Collection Time Receive d Time (Source) Location / / Volume Laterality Blood specimen 01/30/2017 2:12 PM 017 2:31 (specimen) EDT PM EDT Resulting Agency Comment Spec In Lab Nilam So APRN CHEMISTRY ORDERABLES Performing Organization Address City/[facility] Phon e Number [address] (ABNORMAL) Comprehensive metabolic panel (non-fasting) (01/30/2017 2:12 PM EDT) athologist Signature Glucose Lvl 84 65 - 199 [facility] mg/dL [facility] Comment: Diabetes: >=200 mg/dL plus symp toms BUN 23 (H) 8 - 18 mg/dL [facility] Creatinine 0.95 0.70 - 1.20 mg/dL [facility] Comment: Please note that the pediatric reference intervals supplied above were not validated [place] [facility] Results from pediatri c patients should be interpreted in conjunction to the patient's age, height and muscle mass. Sodium 143 135 - 145 mmol/L [facility] Potassium 4.0 3.5 - 5.0 mmol/L [facility] Comment: Please note: ??Patients with WBC >100,00 0 may have falsely elevated Potassium levels. ??For accurate Potassium quantif ication in these patients send serum separator tube (gold top) for subsequent determinations. ??Contact the Clinical Chemistry Laboratory if there are any qu estions. Chloride 102 98 - 107 mmol/L [facility] CO2 28 22 - 31 mmol/L [facility] Anion Gap 13 5 - 15 mmol/L [facility] Calcium 9.2 8.5 - 10.5 mg/dL [facility] Total Protein 6.6 6.1 - 8.0 gm/dL [facility] Albumin 4.3 3.2 - 5.2 gm/dL [facility] AST 20 0 - 30 unit/L [facility] ALT 20 0 - 30 unit/L [facility] Alk Phos 70 40 - 104 unit/L [facility] Total Bilirubin 0.3 0.2 - 1.3 mg/dL [facility] Estimated GFR 59 (L) >=60 [facility] Comment: This estimated GFR (eGFR) [...] the following links into your internet browser. [email or web address] Specimen Anatomical Collection Method Collection Time Receive d Time (Source) Location / / Volume Laterality Blood specimen 01/30/2017 2:12 PM 017 2:31 (specimen) EDT PM EDT Resulting Agency Comment Spec In Lab Nilam So DEV MANAGER CHEMISTRY ORDERABLES Performing Organization Address City/State/[place] [address] documented in this encounter Visit Diagnoses Diagnosis Chronic lymphocytic leukemia Chronic lymphoid leukemia, without menti on of having achieved remission documented in this encounter Care Teams Presser And Blocker [employer]s Relationship Specialty Start Date End Date Berkley Madrigal MD PCP - General 04/13/10 02/15/18 AYLEEN Bray [address] [place] [address] documented as of this encounter
--- OUTSIDE RECORDS SUMMARY | 2022-02-11 01:10 | XMS_ITS | Encounter Summary ---
:1950 Author Organization [facility] [place] [address] Care Team Providers Name Role Phone Berkley Madrigal MD Primary Care Provider Encounter Details Date Type Department Care Team Description 08/17/2016 Telephone Hematology and Oncol robert at [facility] Nina Pierre, [place] [address] Social History Tobacco Use Types Packs/Day [...] this encounter Miscellaneous Notes Telephone Encounter - Nina Pierre RN - 08/17/2016 3:57 PM EDT Urgent fax received from PCP requesting a enoxaparin dose reduction to 70mg twice daily (from 80mgs twice daily) due to a 4 hour post injection anti Xa assay 1.37 IU/mL (08/15/16). Patient noted to havelarge bruises/ hematomas noted on abdomen from enoxaparin injections. Patient was seen by Dr. Ingram 07/15/16 for an inpatient consultation. Current wt. 75kgs. Dr. Ingram away. Reviewed with Dr. Alvarez who agreed with dose reduction. T/c to patient and relayed medication dose adjustment which will require patient to expel 0.1 mL frrom prefilled 80mg. (0.8 mL) enoxaparin syringes prior to injections. 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 Patient does not anticipate a problem with dose adjustment. Reviewed techniques to reduce formation of ecchymoses with injections. Advised to call if concerns arise. Dr. Arnold's Inpatient note 07/15/16 reprinted in part below: Ms. Keller is a 66 y.o. female with h/o CLL (on observation) and retinal surgery 07/11/2016 who was admitted to the ICU with saddle PE s/p TPA administration. ?? Large pulmonary embolism likely multi-factorial given recent surgery, immobility, underlying cancer diagnosis, and exogenous estrogen. Given that lymphocytes are small in size, hyperviscosity does not occur until the total WBC reaches 400-500. Thus no concern for hyperviscosity syndrome. ?? Recommendations: -Please transition to lovenox 80mg/kg Q12hrs for 3 months duration. -After 3 months the patient could then switch to a NOAC or warfarin, to be followed by Dr. Livingston. -Recommend indefinite anticoagulation given massive PE. -Recommend that the patient discontinue exogenous estrogen. -Recommend stopping aspirin given increased risk of bleeding while on therapeutic anticoagulation inthe context of recent TPA administration. -Recommend checking fibrinogen level and replacing with cryo for <100 given recent surgery and increased consumption with TPA administration. -Recommend bilateral LE US to assess and document possible DVT component prior to discharge (this isnot urgent and can be delayed while the patient remains in the ICU). ?? This patient was examined and discussed with Dr. Stefania Ingram. Nina Pierre MSN RN Thrombosis Attending Physician I have reviewed this patient's care with Nina Pierre, RN, MSN and concur with the recommendations and plan as outlined in her note above. Tess Jessica MD [facility] documented in this encounter Plan of Treatment Upcoming Encounters Date Type Specialty Care Team Description 02/11/2022 Scheduled View Only Hematology and Ángel Fischer Oncology [facility] DR [place]NDSA[place], [place] [address] (Wo kash) 02/11/2022 TH Visit (TeleHealth) Ángel Hill Oncology [facility] [place] [address] (Wo kash) 02/11/2022 Infusion Hematology and Oncology 02/11/2022 Office Visit Hematology and Jazzy Armendariz R D Oncology [facility] [address] HEMATOLOGY AND ONCOLOGY [place], [place] [address] (Wo rk) 02/22/2022 TH Visit (TeleHealth) Hematology and Yaquelin Celis Oncology E, [facility] HEMATOLOGY AND ONCOLOGY [place], [place] [address] (Wo rk) 02/25/2022 Office Visit Hematology and Ángel Fischer Oncology [facility] ONCOLOGY [place], [place] [address] (Wo rk) 02/25/2022 Infusion Hematology and Oncology 03/10/2022 Scheduled View Only Obstetrics and Nurse, Julian COLEMAN, fire regulator 03/10/2022 Office Visit Obstetrics and Shazia Whitley, Gynecology [facility] UROGYNECOLOGY [place], [place] [address] (Wo rk) 03/11/2022 Office Visit Hematology and Ángel Fischer MD [facility] [place] [address] Oncology Alyssa Joseph, [address] MEDICAL ONCOLOGY [place], [place] [id number] 03/11/2022 Infusion Hematology and Oncology 03/25/2022 Office Visit Hematology and Alyssa oJseph, Oncology [address] [place] [address] (Wo rk) 03/25/2022 Infusion Hematology and Oncology 03/31/2022 Office Visit Hematology and Alan Livingston M D [facility] HEMATOLOGY/[place] [address] Oncology Nilam So, [facility] HEMATOLOGY/[place] [address] 04/08/2022 Office Visit Hematology and Ángel Fischer MD [facility] [place] [address] Oncology Alyssa Joseph, [address] MEDICAL ONCOLOGY [place], [place] [id number] 04/08/2022 Infusion Hematology and Oncology documented as of this encounter Visit Diagnoses Not on filedocumented in this encounter Care Teams Ward Assistant Relationship Specialty Start Date End Date Berkley Madrigal MD PCP - General 04/13/10 02/15/18 AYLEEN Bray [address] [place], [place] [id number] documented as of this encounter
--- OUTSIDE RECORDS SUMMARY | 2022-02-11 01:11 | XMS_ITS | Encounter Summary ---
:1950 Author Organization [facility] [place] [address] Care Team Providers Name Role Phone Berkley Madrigal MD Primary Care Provider Encounter Details Date Type Department Care Team Description 02/01/2016 Hospital Encounter Hematology and Chronic lymphocytic leukemia; [place] [id number] Social History Tobacco Use Types Packs/Day Years Used Date Never Smoker Smokeless Tobacco: Never Used Alcohol Use Standard Drinks/Week Comments No 0 (1 standard drink = 0.6 oz pure alcoho l) Financial Resource Strain Answer Date Recorded How [...] place to sleep or slept in a halfway (including now)? Sex Assigned at Date Recorded Female 12/24/2020 12:51 PM EDT documented as of this encounter Medications at Time of Discharge Medication Sig Dispensed Refills Start Date End Date Green Tea Extract 500 mg Take 500 mg by mouth 0 Cap daily. melatonin 3 mg Tab Take 3 mg by mouth 0 nightly as needed. multivitamin capsule Take 1 capsule by 0 mouth daily. cholecalciferol, Vitamin Take 2,000 mg by 0 D3, 50 mcg (2,000 unit) mouth daily. Capsule aspirin 81 mg Tablet, Take 81 mg by mouth 0 07/22/2016 Delayed Release (E.C.) daily. ESTROGENS, CONJUGATED Take by mouth. 0 07/08/2016 (PREMARIN ORAL) imipramine (TOFRANIL) 10 Take 10 mg by mouth 0 11/04/2019 mg tablet every morning. Glucosamine Sulfate 500 0 05/24/2010 0 09/02/2016 mg Tab documented as of this encounter Plan of Treatment Upcoming Encounters Date Type Specialty Care Team Description 02/11/2022 Scheduled View Only Hematology and Ángel Fischer Oncology [facility] ONCOLOGY [place], [place] [address] (Shana hewitt) 02/11/2022 TH Visit (TeleHealth) Hematology and Ángel Fischer Oncology [facility] [address]NA [place], [place] [address] (Shana hewitt) 02/11/2022 Infusion Hematology and Oncology 02/11/2022 Office Visit Hematology and Jazzy Armendariz R D Oncology [facility]AT[facility] AND ONCOLOGY [place], [place] [address] (Shaan hewitt) 02/22/2022 TH Visit (TeleHealth) Hematology and Yaquelin Celis Oncology E, [facility] HEMATOLOGY AND ONCOLOGY [place], [place] [address] (Wo rk) 02/25/2022 Office Visit Hematology Ángel Kimbrough Oncology [facility] ONCOLOGY [place], [place] [address] (Wo rk) 02/25/2022 Infusion Hematology and Oncology 03/10/2022 Scheduled View Only Obstetrics and Nurse, Julian COLEMAN, drier helper 03/10/2022 Office Visit Obstetrics and Shazia Whitley, Gynecology [facility] UROGYNECOLOGY [place], [place] [address] (Wo rk) 03/11/2022 Office Visit Hematology and Ángel Fischer MD [facility] [place] [address] Oncology Alyssa Joseph[address] MED[facility] [place] [place], [place] [id number] 03/11/2022 Infusion Hematology and Oncology 03/25/2022 Office Visit Hematology and Alyssa Joseph Oncology [address] [place] [place] [place], [place] [phone] (Wo rk) 03/25/2022 Infusion Hematology and Oncology 03/31/2022 Office Visit Hematology and Alan Livingston M D [facility] HEMATOLOGY/[place] [address] Oncology Nilam So, [facility] HEMATOLOGY/[place] [address] 04/08/2022 Office Visit Hematology and Ángel Fischer MD [facility] [place] [address] Oncology Alyssa Joseph, [address] [place] [address] 04/08/2022 Infusion Hematology and Oncology documented as of this encounter Procedures Procedure Name Priority Date/Time Associated Diagnosis Comme nts SCAN, PERIPHERAL STAT 02/01/2016 2:37 Results for this BLOOD PM EDT procedure are i n the results section. HEMOGRAM STAT 02/01/2016 2:37 Chronic lymphocytic Resul ts for this PM EDT leukemia procedure are i n the results section. DIFFERENTIAL, STAT 02/01/2016 2:37 Chronic lymphocytic Resu lts for this AUTOMATED PM EDT leukemia procedure are i n the results section. CBC (WITH DIFF) STAT 02/01/2016 2:37 Chronic lymphocytic PM EDT leukemia LACTATE DEHYDROGENASE STAT 02/01/2016 2:37 Chronic lymphocy tic Results for this PM EDT leukemia procedure are i n the results section. HEMOGLOBIN A1C Routine 02/01/2016 2:37 Hyperglycemia Results f or this PM EDT procedure are i n the results section. COMPREHENSIVE STAT 02/01/2016 2:37 Chronic lymphocytic Resu lts for this METABOLIC PANEL PM EDT leukemia procedure ar e in (NON-FASTING) the results section. documented in this encounter Results Scan, Peripheral Blood (02/01/2016 2:37 PM EDT) P athologist Signature Plat Estimate Normal [facility] RBC Morphology Normal [facility] Specimen Anatomical Collection Method Collection Time Receive d Time (Source) Location / / Volume Laterality Blood specimen 02/01/2016 2:37 PM 016 2:43 (specimen) EDT PM EDT Resulting Agency Comment Spec In Lab Alan Livingston MD HEMATOLOGY ORDERABLES Performing Organization Address City/State/[place] [address] (ABNORMAL) Differential, Automated (02/01/2016 2:37 PM EDT) Patholo gist Method Time Signature Neutrophils % 3.5 % [facility] Neutr Abs (ANC) 4.91 1.70 - [facility] 6.10 [facility] x10(3)/[facility] LABORATORY Lymphocytes % 95.4 % [facility] Lymphocytes Abs 131.0 (H) 0.9 - 3.2 [facility] x10(3)/[facility] LABORATORY Monocytes % 0.6 % [facility] Monocyte Abs 0.9 0.3 - 0.9 [facility] x10(3)/[facility] LABORATORY Eosinophils % 0.2 % [facility] Eosinophils Abs 0.2 0.0 - 0.4 [facility] x10(3)/[facility] LABORATORY Basophils % 0.1 % [facility] Basophils Abs 0.1 0.0 - 0.1 [facility] x10(3)/[facility] LABORATORY Immature Gran % 0.20 % [facility] Comment: Immature granulocytes(IG's)percentage an d absolute count will include metamyelocytes, myelocytes, and promyelo cytes. Blood smears from CBCs yielding IG's will be scanned manually for concor dance. If this scan disagrees with the automated IG or if promyelocytes are not ed, a manual differential will be performed. Claudia Gran Abs 0.23 (H) 0.00 - 0.04 x10(3)/[facility] LABORATORY Specimen Anatomical Collection Method Collection Time Receive d Time (Source) Location / / Volume Laterality Blood specimen 02/01/2016 2:37 PM 016 2:43 (specimen) EDT PM EDT Resulting Agency Comment Spec In Lab Alan Livingston MD HEMATOLOGY ORDERABLES Performing Organization Address City/State/[place] [address] (ABNORMAL) Hemogram (02/01/2016 2:37 PM EDT) P athologist Signature WBC 137.3 4.0 - 9.5 [facility] (Critical) x10(3)/[facility] Comment: Please note: Patients with WBC greater t jaeger 100,000 may have falsely elevated potassium levels. Contact the Clinical C hemistry Laboratory if there are any questions.. This result has been called to NIKHIL MAHMOOD by Lizeth Osorio on 02 01 2016 at 1453, and h as been read back. RBC 4.35 4.00 - 5.21 x10(6)/[facility] LABORATORY Hemoglobin 12.7 11.7 - 15.5 gm/dL [facility] Hematocrit 41.2 35.7 - 45.8 % [facility] MCV 94.7 (H) 82.6 - 94.4 fL [facility] MCH 29.2 27.1 - 32.0 pg [facility] MCHC 30.8 (L) 31.7 - 35.0 gm/dL [facility] Platelets 160 145 - 357 x10(3)/[facility] LABORATORY RDWSD 46.0 37.0 - 46.0 [facility] LABORATORY RDWCV 13.5 11.5 - 14.1 % [facility] LAB[facility]ORY MPV 11.0 7.6 - 12.9 [facility] LABORATORY nRBC % Auto 0.0 % [facility] nRBC Abs Auto 0.000 0.000 - 0.000 x10(3)/[facility] LABORATORY Specimen Anatomical Collection Method Collection Time Receive d Time (Source) Location / / Volume Laterality Blood specimen 02/01/2016 2:37 PM 016 2:43 (specimen) EDT PM EDT Resulting Agency Comment Spec In Lab Alan Livingston MD HEMATOLOGY ORDERABLES Performing Organization Address City/State/[place] [address] (ABNORMAL) Hemoglobin A1c (02/01/2016 2:37 PM EDT) Analysis Performed At Patho logist Time Signature Hemoglobin A1C 6.0 (H) 4.3 - 5.6 [facility] Comment: Reference Range: 4.3 - [...] Mellitus, Diabetes Care 2013; 36: Suppl. 1, S67-12 Est Avg Gluc 126 mg/dL [facility] Comment: eAG equivalents for HbA1c percentages: HbA1c(%) ?eAG(mg/dL) 6.0 ?126 6.5 ?140 7.0 ?154 7.5 ?169 8.0 ?183 8.5 ?197 9.0 ?212 9.5 ?226 10.0 ? 240 Limitations: The eAG calculation has not been validated on women, individuals below 18 years old and above 70 years old, and individuals with hemoglobinopathies. Additional resources are available on e ADA website: [email or web address] Lázaro MIX, Lolis J, Reece R, et al. ??Tr anslating the A1C assay into estimated average glucose values. ??Diabetes Care 2008:31(8):6763-4790. Specimen Anatomical Collection Method Collection Time Receive d Time (Source) Location / / Volume Laterality Blood specimen 02/01/2016 2:37 PM 016 2:43 (specimen) EDT PM EDT Resulting Agency Comment Spec In Lab Alan Livingston MD CHEMISTRY ORDERABLES Performing Organization Address City/State/[place] [address] [facility] [address] Lactate Dehydrogenase (02/01/2016 2:37 PM EDT) athologist Signature LDH 202 110 - 220 [facility] unit/L [facility] Specimen Anatomical Collection Method Collection Time Receive d Time (Source) Location / / Volume Laterality Blood specimen 02/01/2016 2:37 PM 016 2:43 (specimen) EDT PM EDT Resulting Agency Comment Spec In Lab Alan Livingston MD CHEMISTRY ORDERABLES Performing Organization Address City/[facility]/ZIP [place] [address] (ABNORMAL) Comprehensive metabolic panel (non-fasting) (02/01/2016 2:37 PM EDT) athologist Signature Glucose Lvl 164 65 - 199 [facility] mg/dL [facility] Comment: Diabetes: >=200 mg/dL plus symp toms BUN 19 (H) 8 - 18 mg/dL [facility] Creatinine 0.98 0.70 - 1.20 mg/dL [facility] Comment: Please note that the pediatric reference intervals supplied above were not validated at [facility]. Results from pediatri c patients should be interpreted in conjunction to the patient's age, height and muscle mass. Sodium 144 135 - 145 mmol/L [facility] Potassium See Note 3.5 - 5.0 mmol/L [facility] Comment: Plasma Potassium result is 4.6 mmol/L, s uspect pseudohyperkalemia. ??Recheck Potassium result on serum sample. Please note: ??Patients with WBC >100,00 0 may have falsely elevated Potassium levels. ??For accurate Potassium quantif ication in these patients send serum separator tube (gold top) for subsequent determinations. ??Contact the Clinical Chemistry Laboratory if there are any qu estions. Chloride 103 98 - 107 mmol/L [facility] CO2 27 22 - 31 mmol/L [facility] Anion Gap 14 5 - 15 mmol/L [facility] Calcium 9.0 8.5 - 10.5 mg/dL [facility] Total Protein 6.5 6.1 - 8.0 gm/dL [facility] Albumin 4.1 3.2 - 5.2 gm/dL [facility] AST 27 0 - 30 unit/L [facility] ALT 19 0 - 30 unit/L [facility] Alk Phos 64 40 - 104 unit/L [facility] Total Bilirubin 0.2 0.2 - 1.3 mg/dL [facility] Bili, Direct <0.1 0.0 - 0.3 mg/dL [facility] Estimated GFR 57 (L) >=60 [facility] Comment: This estimated GFR (eGFR) [...] the following links into your internet browser. [email or web address] Specimen Anatomical Collection Method Collection Time Receive d Time (Source) Location / / Volume Laterality Blood specimen 02/01/2016 2:37 PM 016 2:43 (specimen) EDT PM EDT Resulting Agency Comment Spec In Lab Alan Livingston MD CHEMISTRY ORDERABLES Performing Organization Address City/State/[place] [address] documented in this encounter Visit Diagnoses Diagnosis Chronic lymphocytic leukemia Chronic lymphoid leukemia, without menti on of having achieved remission Hyperglycemia Other abnormal glucose documented in this encounter Care Teams Securities Clerk Relationship Specialty Start Date End Date Berkley Madrigal MD PCP - General 04/13/10 02/15/18 AYLEEN D [address] [place] [address] documented as of this encounter
--- OUTSIDE RECORDS SUMMARY | 2022-02-11 01:11 | XMS_ITS | Encounter Summary ---
:1950 Author Organization [facility] [place] [address] Care Team Providers Name Role Phone Berkley Madrigal MD Primary Care Provider Reason for Visit Reason Comments Follow-up Encounter Details Date Type Department Care Team Description 02/01/2016 Office Visit Hematology and Alan Livingston M D [facility] HEMATOLOGY/[place] [address] CLL (chronic [place] [facility] Nilam So APRN [facility] [address] HEMATOLOGY/[place] [address] lymphocytic leukemia) [facility] Rachel Simpson DO [facility] [address] HEMATOLOGY/[place] [address] [place] [id number] Social History Tobacco Use Types Packs/Day Years [...] Sign Reading Time Taken Comments Blood Pressure 138/67 02/01/2016 3:28 PM EDT Pulse 73 02/01/2016 3:28 PM EDT Temperature 36.2 ??C (97.2 ??F) 02/01/2016 3:28 PM EDT Respiratory Rate 17 02/01/2016 3:28 PM EDT Oxygen Saturation 93% 02/01/2016 3:28 PM EDT Inhaled Oxygen Concentration - - Weight 78.3 kg (172 lb 9.6 oz) 02/01/2016 3:28 PM EDT Height 170 cm (5' 6.93) 02/01/2016 3:28 PM EDT Body Mass Index 27.09 02/01/2016 3:28 PM EDT documented in this encounter Progress Notes Rachel Simpson DO - 02/01/2016 3:45 PM EDT Subjective: Patient ID: Carol Keller is a 65 y.o. female here for f/u of CLL Patient Active Problem List Diagnosis ??? AK (actinic keratosis) ??? History of [...] Observation only Pneumovax 2014 HPI Carol is doing well. She spent some time in [facility] visiting her daughter this Summer. Found [place] very beautiful. 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 No new lumps or bumps. No drenching night sweats. No recent infections. Review of Systems Constitutional: Negative for activity change, appetite change, chills, fatigue and fever. HENT: Negative. Eyes: Negative. Respiratory: Negative. Negative for cough and shortness of breath. Cardiovascular: Negative. Negative for chest pain, palpitations and leg swelling. Gastrointestinal: Negative. Negative for abdominal pain, constipation, nausea and vomiting. Genitourinary: Negative. Musculoskeletal: Negative. [...] exhibits no edema. Lymphadenopathy: She has cervical adenopathy (shotty bilateral). She has axillary adenopathy (small, mobile ~1cm bilaterally). Right: No inguinal and no supraclavicular adenopathy present. Left: No inguinal and no supraclavicular adenopathy present. Neurological: She is alert and oriented to person, place, and time. Skin: Skin is warm and dry. Psychiatric: She has a normal mood and affect. Recent Results (from the past 72 hour(s)) Comprehensive metabolic panel (non-fasting) Result Value Ref Range Glucose Lvl 164 65 - 199 mg/dL BUN 19 (H) 8 - 18 mg/dL Creatinine 0.98 0.70 - 1.20 mg/dL Sodium 144 135 - 145 mmol/L Potassium See Note 3.5 - 5.0 mmol/L Chloride 103 98 - 107 mmol/L CO2 27 22 - 31 mmol/L Anion Gap 14 5 - 15 mmol/L Calcium 9.0 8.5 - 10.5 mg/dL Total Protein 6.5 6.1 - 8.0 gm/dL Albumin 4.1 3.2 - 5.2 gm/dL AST 27 0 - 30 unit/L ALT 19 0 - 30 unit/L Alk Phos 64 40 - 104 unit/L Total Bilirubin 0.2 0.2 - 1.3 mg/dL Bili, Direct <0.1 0.0 - 0.3 mg/dL Estimated GFR 57 (L) >=60 Lactate Dehydrogenase Result Value Ref Range LDH 202 110 - 220 unit/L Hemoglobin A1c Result Value Ref Range Hemoglobin A1C 6.0 (H) 4.3 - 5.6 % Est Avg Gluc 126 mg/dL Hemogram Result Value Ref Range WBC 137.3 (CRIT) 4.0 - 9.5 x10(3)/mcL RBC 4.35 4.00 - 5.21 x10(6)/mcL Hemoglobin 12.7 11.7 - 15.5 gm/dL Hematocrit 41.2 35.7 - 45.8 % MCV 94.7 (H) 82.6 - 94.4 fL MCH 29.2 27.1 - 32.0 pg MCHC 30.8 (L) 31.7 - 35.0 gm/dL Platelets 160 145 - 357 x10(3)/mcL RDWSD 46.0 37.0 - 46.0 fL RDWCV 13.5 11.5 - 14.1 % MPV 11.0 7.6 - 12.9 fL nRBC % Auto 0.0 % nRBC Abs Auto 0.000 0.000 - 0.000 x10(3)/mcL Differential, Automated Result Value Ref Range Neutrophils % 3.5 % Neutr Abs (ANC) 4.91 1.70 - 6.10 x10(3)/mcL Lymphocytes % 95.4 % Lymphocytes Abs 131.0 (H) 0.9 - 3.2 x10(3)/mcL Monocytes % 0.6 % Monocyte Abs 0.9 0.3 - 0.9 x10(3)/mcL Eosinophils % 0.2 % Eosinophils Abs 0.2 0.0 - 0.4 x10(3)/mcL Basophils % 0.1 % Basophils Abs 0.1 0.0 - 0.1 x10(3)/mcL Immature Gran % 0.20 % Claudia Gran Abs 0.23 (H) 0.00 - 0.04 x10(3)/mcL Scan, Peripheral Blood Result Value Ref Range Plat Estimate Normal RBC Morphology Normal BP 138/67 (Patient Position: Sitting) Pulse 73 Temp 36.2 ??C (97.2 ??F) (Temporal) Resp 17 Ht 170 cm(5' 6.93) Wt 78.3 kg (172 lb 9.6 oz) SpO2 93% BMI 27.09 kg/m2 Assessment and Plan: 1. Assessment: CLL. Although WBC and ALC are elevated, counts and doubling time have remained stable. No worrisome or symptomatic adenopathy, B symptoms, recurrent infections, signs of AIHA or ITP. No concern for transformation. No indication for treatment at this time. Influenza = will be getting this Fall Pneumococcal - UTD Plan: We will continue to monitor in hematology clinic. Reviewed CLL and indications for treatment. Carol will return to hematology in 4 months. she will call if there are any problems before then. Rachel Simpson DO Hematology-Oncology Fellow Alan Livingston MD - 02/01/2016 3:45 PM EDT I have reviewed the relevant clinical, laboratory and radiological data with Dr. Simpson, Hematology/Oncology Fellow; however, I have not interviewed or examined this patient. I have reviewed and concur with the recommendations as outlined by Dr. Simpson. documented in this encounter Plan of Treatment Upcoming Encounters Date Type Specialty Care Team Description 02/11/2022 Scheduled View Only Hematology Ángel Kimbrough Oncology [facility] ONCOLOGY [place], [place] [address] (Wo rk) 02/11/2022 TH Visit (TeleHealth) Hematology Ángel Kimbrough Oncology [facility] ONCOLOGY [place], [place] [address] (Wo rk) 02/11/2022 Infusion Hematology and Oncology 02/11/2022 Office Visit Hematology and Jazzy Armendariz E, R D Oncology [facility] HEMATOLOGY AND ONCOLOGY [place], [place] [address] (Wo rk) 02/22/2022 TH Visit (TeleHealth) Hematology and Yaquelin Celis Oncology E, [facility] HEMATOLOGY AND ONCOLOGY [place], [place] [address] (Wo rk) 02/25/2022 Office Visit Hematology Ángel Kimbrough Oncology [facility] ONCOLOGY [place], [place] [address] (Wo rk) 02/25/2022 Infusion Hematology and Oncology 03/10/2022 Scheduled View Only Obstetrics and Nurse, Oboneal II, tower observer 03/10/2022 Office Visit Obstetrics and Shazia Whitley Gynecology [facility] [place], [place] [address] (Wo rk) 03/11/2022 Office Visit Hematology and Ángel Fischer MD [facility] [place] [address] [address] MEDICAL ONCOLOGY [place], [place] [id number] 03/11/2022 Infusion Hematology and Oncology 03/25/2022 Office Visit Hematology and Alyssa Joseph, Oncology [address] MEDICAL ONCOLOGY [place], [place] [id number] (Wo rk) 03/25/2022 Infusion Hematology and Oncology 03/31/2022 Office Visit Hematology and Alan Livingston M D [facility] [address] HEMATOLOGY/[place] [address] [facility] [address] 04/08/2022 Office Visit Hematology and Ángel Fischer MD [facility] [place] [address] [address] MEDICAL ONCOLOGY [place], [place] [id number] 04/08/2022 Infusion Hematology and Oncology documented as of this encounter Results Lactate Dehydrogenase (06/06/2016 2:14 PM EST) P athologist Signature LDH 210 110 - 220 [facility] unit/L [facility] Specimen Anatomical Collection Method Collection Time Receive d Time (Source) Location / / Volume Laterality Blood specimen 06/06/2016 2:14 PM 017 2:20 (specimen) EST PM EST Resulting Agency Comment Spec In Lab Alan Livingston MD CHEMISTRY ORDERABLES Performing Organization Address City/State/ZIP Code Phon e Number [facility] [place] [address] (ABNORMAL) Comprehensive metabolic panel (non-fasting) (06/06/2016 2:14 PM EST) athologist Signature Glucose Lvl 92 65 - 199 [facility] mg/dL [facility] Comment: Diabetes: >=200 mg/dL plus symp toms BUN 18 8 - 18 mg/dL [facility] Creatinine 0.97 0.70 - 1.20 mg/dL [facility] Comment: Please note that the pediatric reference intervals supplied above were not validated at [facility]. Results from pediatri c patients should be interpreted in conjunction to the patient's age, height and muscle mass. Sodium 144 135 - 145 mmol/L [facility] Potassium See Note 3.5 - 5.0 mmol/L [facility] Comment: Plasma Potassium result is 4.4 mmol/L, s uspect pseudohyperkalemia. ??Recheck Potassium result on serum sample. Please note: ??Patients with WBC >100,00 0 may have falsely elevated Potassium levels. ??For accurate Potassium quantif ication in these patients send serum separator tube (gold top) for subsequent determinations. ??Contact the Clinical Chemistry Laboratory if there are any qu estions. Chloride 104 98 - 107 mmol/L [facility] CO2 27 22 - 31 mmol/L [facility] Anion Gap 13 5 - 15 mmol/L [facility] Calcium 9.0 8.5 - 10.5 mg/dL [facility] Total Protein 6.4 6.1 - 8.0 gm/dL [facility] Albumin 4.3 3.2 - 5.2 gm/dL [facility] AST 25 0 - 30 unit/L [facility] ALT 17 0 - 30 unit/L [facility] Alk Phos 68 40 - 104 unit/L [facility] Total Bilirubin <0.2 (L) 0.2 - 1.3 mg/dL [facility] Bili, Direct <0.1 0.0 - 0.3 mg/dL [facility] Estimated GFR 57 (L) >=60 [facility] Comment: This estimated GFR (eGFR) value [...] the following links into your internet browser. [email or web address] Specimen Anatomical Collection Method Collection Time Receive d Time (Source) Location / / Volume Laterality Blood specimen 06/06/2016 2:14 PM 017 2:20 (specimen) EST PM EST Resulting Agency Comment Spec In Lab Alan Livingston MD CHEMISTRY ORDERABLES Performing Organization Address City/State/[place] [address] documented in this encounter Visit Diagnoses Diagnosis CLL (chronic lymphocytic leukemia) Chronic lymphoid leukemia, without menti on of having achieved remission documented in this encounter Care Teams Phlebotomy Manager Relationship Specialty Start Date End Date Berkley Madrigal MD PCP - General 04/13/10 02/15/18 AYLEEN D [address] [place] [address] documented as of this encounter
--- OUTSIDE RECORDS SUMMARY | 2022-02-11 01:11 | XMS_ITS | Encounter Summary ---
:1950 Author Organization [facility] [place] [address] Care Team Providers Name Role Phone Berkley Madrigal MD Primary Care Provider Encounter Details Date Type Department Care Team Description 06/06/2016 Hospital Encounter Hematology and CLL ([facility] Oncology at [facility] lymphocytic leukemia) [place] [phone] Social History Tobacco Use Types Packs/Day [...] View Only Hematology and Ángel Fischer Oncology [facility] ONCOLOGY [place], [place] [address] (Shana hewitt) 02/11/2022 TH Visit (TeleHealth) Hematology and Ángel Fischer Oncology [facility] DR UMANA [place], [place] [address] (Shana hewitt) 02/11/2022 Infusion Hematology and Oncology 02/11/2022 Office Visit Hematology and Jazzy Armendariz R D Oncology [facility] HEMATOLOGY AND ONCOLOGY [place], [place] [address] (Wo rk) 02/22/2022 TH Visit (TeleHealth) Hematology and Yaquelin Celis Oncology E, [facility] HEMATOLOGY AND ONCOLOGY [place], [place] [address] (Wo rk) 02/25/2022 Office Visit Hematology and Ángel Fischer Oncology [facility] ONCOLOGY [place], [place] [address] (Wo rk) 02/25/2022 Infusion Hematology and Oncology 03/10/2022 Scheduled View Only Obstetrics and Nurse, Julian COLEMAN, laundry tech 03/10/2022 Office Visit Obstetrics and Jorge Whitley, Gynecology [facility] UROGYNECOLOGY [place], [place] [address] (Wo rk) 03/11/2022 Office Visit Hematology and Ángel Fischer MD [facility] [place] [address] Oncology Alyssa Joseph[address] MEDICAL ONCOLOGY [place], [place] [id number] 03/11/2022 Infusion Hematology and Oncology 03/25/2022 Office Visit Hematology and Alyssa Joseph Oncology [address] MEDICAL ONCOLOGY [place], [place] [phone] (Wo rk) 03/25/2022 Infusion Hematology and Oncology 03/31/2022 Office Visit Hematology and Alan Livingston M D [facility] HEMATOLOGY/[place] [address] Oncology Nilam So, [facility] HEMATOLOGY/[place] [address] 04/08/2022 Office Visit Hematology and Ángel Fischer MD [facility] [place] [address] Oncology Alyssa Joseph, [address] [place] [address] 04/08/2022 Infusion Hematology and Oncology documented as of this encounter Procedures Procedure Name Priority Date/Time Associated Comments Diagnosis SCAN, PERIPHERAL BLOOD Routine 06/06/2016 2:14 PM Results for this EST procedure are i n the results section. HEMOGRAM Routine 06/06/2016 2:14 PM CLL (chronic Results f or this EST lymphocytic procedure are i n leukemia) the results section. DIFFERENTIAL, Routine 06/06/2016 2:14 PM CLL (chronic Results for this AUTOMATED EST lymphocytic procedure are i n leukemia) the results section. CBC (WITH DIFF) Routine 06/06/2016 2:14 PM CLL (chronic EST lymphocytic leukemia) LACTATE DEHYDROGENASE Routine 06/06/2016 2:14 PM CLL (chronic Results for this EST lymphocytic procedure are i n leukemia) the results section. COMPREHENSIVE Routine 06/06/2016 2:14 PM CLL (chronic Results for this METABOLIC PANEL EST lymphocytic procedure ar e in (NON-FASTING) leukemia) the results section. documented in this encounter Results Scan, Peripheral Blood (06/06/2016 2:14 PM EST) Analysis Performed At Patho logist Time Signature Plat Estimate Normal [facility] RBC Morphology Normal [facility] Smudge Cells Present [facility] Specimen Anatomical Collection Method Collection Time Receive d Time (Source) Location / / Volume Laterality Blood specimen 06/06/2016 2:14 PM 017 2:20 (specimen) EST PM EST Resulting Agency Comment Spec In Lab Alan Livingston MD HEMATOLOGY ORDERABLES Performing Organization Address City/State/[place] [address] (ABNORMAL) Differential, Automated (06/06/2016 2:14 PM EST) Patholo gist Method Time Signature Neutrophils % 3.3 % [facility] Neutr Abs (ANC) 5.50 1.70 - [facility] 6.10 [facility] x10(3)/[facility] LABORATORY Lymphocytes % 95.5 % [facility] Lymphocytes Abs 151.6 (H) 0.9 - 3.2 [facility] x10(3)/[facility] LABORATORY Monocytes % 0.7 % [facility] Monocyte Abs 1.0 (H) 0.3 - 0.9 [facility] x10(3)/[facility] LABORATORY Eosinophils % 0.2 % [facility] Eosinophils Abs 0.3 0.0 - 0.4 [facility] x10(3)/[facility] LABORATORY Basophils % 0.1 % [facility] Basophils Abs 0.1 0.0 - 0.1 [facility] x10(3)/[facility] LABORATORY Immature Gran % 0.20 % [facility] Comment: Immature granulocytes(IG's)percentage an d absolute count will include metamyelocytes, myelocytes, and promyelo cytes. Blood smears from CBCs yielding IG's will be scanned manually for concor dance. If this scan disagrees with the automated IG or if promyelocytes are not ed, a manual differential will be performed. Claudia Gran Abs 0.24 (H) 0.00 - 0.04 x10(3)/[facility] LABORATORY Specimen Anatomical Collection Method Collection Time Receive d Time (Source) Location / / Volume Laterality Blood specimen 06/06/2016 2:14 PM 017 2:20 (specimen) EST PM EST Resulting Agency Comment Spec In Lab Alan Livingston MD HEMATOLOGY ORDERABLES Performing Organization Address City/State/[place] [address] (ABNORMAL) Hemogram (06/06/2016 2:14 PM EST) P athologist Signature WBC 158.7 4.0 - 9.5 [facility] (Critical) x10(3)/[facility] Comment: Please note: Patients with WBC greater t jaeger 100,000 may have falsely elevated potassium levels. Contact the Clinical C hemistry Laboratory if there are any questions. CALLED BY TO WHIT PATEL EY 3K AT 1450. This result has been called to JORGE [id number] by JUJU CAVAZOS on 06 06 2016 at 1602, and has been read back. RBC 4.52 4.00 - 5.21 x10(6)/[facility] LABORATORY Hemoglobin 12.9 11.7 - 15.5 gm/dL [facility] Hematocrit 42.0 35.7 - 45.8 % [facility] MCV 92.9 82.6 - 94.4 fL [facility] MCH 28.5 27.1 - 32.0 pg [facility] MCHC 30.7 (L) 31.7 - 35.0 gm/dL [facility] Platelets 179 145 - 357 x10(3)/[facility] LABORATORY RDWSD 46.5 (H) 37.0 - 46.0 [facility] LABORATORY RDWCV 14.0 11.5 - 14.1 % [facility] MPV 10.5 7.6 - 12.9 fL [facility] nRBC % Auto 0.0 % [facility] nRBC Abs Auto 0.000 0.000 - 0.000 x10(3)/[facility] LABORATORY Specimen Anatomical Collection Method Collection Time Receive d Time (Source) Location / / Volume Laterality Blood specimen 06/06/2016 2:14 PM 017 2:20 (specimen) EST PM EST Resulting Agency Comment Spec In Lab Alan Livingston MD HEMATOLOGY ORDERABLES Performing Organization Address City/State/[place] [address] Lactate Dehydrogenase (06/06/2016 2:14 PM EST) P athologist Signature LDH 210 110 - 220 [facility] unit/L [facility] Specimen Anatomical Collection Method Collection Time Receive d Time (Source) Location / / Volume Laterality Blood specimen 06/06/2016 2:14 PM 017 2:20 (specimen) EST PM EST Resulting Agency Comment Spec In Lab Alan Livingston MD CHEMISTRY ORDERABLES Performing Organization Address City/State/[place] [address] (ABNORMAL) Comprehensive metabolic panel (non-fasting) (06/06/2016 2:14 PM EST) athologist Signature Glucose Lvl 92 65 - 199 [facility] mg/dL [facility] Comment: Diabetes: >=200 mg/dL plus symp toms BUN 18 8 - 18 mg/dL [facility] Creatinine 0.97 0.70 - 1.20 mg/dL [facility] Comment: Please note that the pediatric reference intervals supplied above were not validated at [facility]. Results from pediatri c patients should be interpreted in conjunction to the patient's age, height and muscle mass. Sodium 144 135 - 145 mmol/L [facility] Potassium See Note 3.5 - 5.0 mmol/L [facility] Comment: Plasma Potassium result is 4.4 [...] estions. Chloride 104 98 - 107 mmol/L [facility] CO2 27 22 - 31 mmol/L [facility] Anion Gap 13 5 - 15 mmol/L [facility] Calcium 9.0 8.5 - 10.5 mg/dL [facility] Total Protein 6.4 6.1 - 8.0 gm/dL [facility] Albumin 4.3 3.2 - 5.2 gm/dL [facility] AST 25 0 - 30 unit/L [facility] ALT 17 0 - 30 unit/L [facility] Alk Phos 68 40 - 104 unit/L [facility] Total Bilirubin <0.2 (L) 0.2 - 1.3 mg/dL [facility] Bili, Direct <0.1 0.0 - 0.3 mg/dL [facility] Estimated GFR 57 (L) >=60 [facility] Comment: This estimated GFR [...] the following links into your internet browser. [email or web address] Specimen Anatomical Collection Method Collection Time Receive d Time (Source) Location / / Volume Laterality Blood specimen 06/06/2016 2:14 PM 017 2:20 (specimen) EST PM EST Resulting Agency Comment Spec In Lab Alan Livingston MD CHEMISTRY ORDERABLES Performing Organization Address City/State/[place] [address] documented in this encounter Visit Diagnoses Diagnosis CLL (chronic lymphocytic leukemia) Chronic lymphoid leukemia, without menti on of having achieved remission documented in this encounter Care Teams Uat Tester Relationship Specialty Start Date End Date Berkley Madrigal MD PCP - General 04/13/10 02/15/18 AYLEEN D [address] [place] [address] documented as of this encounter
--- OUTSIDE RECORDS SUMMARY | 2022-02-11 01:11 | XMS_ITS | Encounter Summary ---
:1950 Author Organization 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 Kareen Figueroa MD [facility] Neurology 3c [facility] [place] [address] [place] [address] Referral ID Status Reason Start Expiration Visits Visits Date Date Requested Authorized [id number] Duplicate Consult, 07/22/2016 07/22/2017 1 1 Referral Test & Treat Reason for Visit Reason Comments Numbness left sided Auth/Cert Specialty Diagnoses / Procedures Referred By Contact Refer red To Contact Diagnoses CLL (chronic lymphocytic leukemia) Pulmonary embolism Referral ID Status Reason Start Date Expiration Date Visits Requ ested Visits Authorized [id number] 1 1 Encounter Details Date Type Department Care Team Description 07/14/2016 - Hospital Encounter 1 Jaylon Gregg MD [address] [place] [address] CLL (chronic lymphocytic leukemia); 07/22/2016 [facility] Regina Hill MD [facility] [place] [address] Acute saddle pulmonary embolism with acu te cor pulmonale; [facility] [place] [address] 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; [facility] Other pul monary embolism and infarction; Drive Hypoxemia; [place], [place] Unspecified tra nsient cerebral ischemia [id number] Social History Tobacco Use Types Packs/Day Years [...] Sign Reading Time Taken Comments Blood Pressure 98/53 07/22/2016 11:29 AM EST Pulse 101 07/22/2016 11:29 AM EST Temperature 36.7 ??C (98.1 ??F) 07/22/2016 11:29 AM EST Respiratory Rate 18 07/22/2016 11:29 AM EST Oxygen Saturation 98% 07/22/2016 11:29 AM EST Inhaled Oxygen Concentration - - Weight 81.5 kg (179 lb 9.6 oz) 07/22/2016 6:06 AM EST Height 163.8 cm (5' 4.5) 07/14/2016 3:30 PM EST Body Mass Index 30.35 07/14/2016 3:30 PM EST documented in this encounter Discharge Summaries Lizeth Campbell MD - 07/15/2016 11:06 AM EST Inpatient - Discharge Summary Patient Name: Carol Keller Patient Age: 66 y.o. Birthdate: 1950 Admit date: 07/14/2016 Discharge date and time: 07/22/2016 Attending Physician: Sarahi att. providers found ID: Carol Keller is a 66 y.o. female w/ PMH of CLL and recent vitrectomy admitted for saddle PE s/p TPA in the ED. Follow-up Recommendations for Providers: - Please recheck CBC for Hb post discharge - She was started on lovenox 80mg BID for PE, with plans to transition to oral anticoagulation in the future. She will need indefinite anticoagulation. - Ensure follow up with Hematology - For new frontal CVA, clopidogrel is indicated given she failed ASA outpatient, but his was not started given her occular and high hematoma s/p TPA. Neurology referral has been made. - Statin was started for secondary stroke prevention - Please ensure start of clopidogrel therapy when stable - Pt to have continued opthalmology follow up discharge. Discharge Diagnoses (Hospital Problems) and Secondary Diagnoses (Chronic Problems): Active Hospital Problems Diagnosis ??? Pulmonary embolism Resolved Hospital Problems Diagnosis Date Resolved No resolved problems to display. Active Non-Hospital Problems Diagnosis ??? AK (actinic keratosis) ??? History [...] deletion (favorable prognosis) Observation only Pneumovax 2014 Procedures: Operations: None History of Presentation: Per HPI: Carol Keller is a 66 y.o. female with PMH of CLL, diet controlled diabetes, recent vitrectomyfor membrane peeling with NO surgery who presented with dyspnea and left sided neurological deficits. She was admitted to the ICU yesterday after her family noted sudden SOB, diaphoresis, lightheadedness, slurred speech, and left hand numbness and weakness. Her Daughter called 911 and she was BIBA to the ED here. Slurred speech and facial droop reportedly resolved en route however weakness and numbness were still present. Stroke alert was called and head CT was negative. Patient was markedly hypoxichowever so stat TTE and CT-PE were done which showed large saddle embolism and right heart strain with PASP 41 mmHg. She was given tPA and transferred to the ICU for closer monitoring. ?? Overnight she developed acute bleeding from her right eye as well as thigh hematoma. Hgb dropped from 14 to 10, repeat is pending. She has been progressively more hypotensive and orthostatic in the interim, she is getting fluids at present. ?? She notes no residual deficits from her stroke besides poor ocular tracking with her right eye. She states vision in left eye is intact. ?? Hospital Course: Saddle pulmonary embolus with Right heart strain - submassive PE: Carol Keller was admitted to the Medicine Service on 07/14/2016 in stable condition post TPA in the ED for saddle PE with right sided heart strain. Post TPA, oxygen requirement declined overnightand showed rapidly improvement in her dyspnea and oxygen requirement and HD #1 was transitioned to RA. She was started on heparin ggt, later transitioned to Lovenox 80mg BID. Hematology was consulted, with recommendation to continue lovenox 80mg BID for at least 3 months, then consider switching to oral agent. Given the size of her PE, she will likely need indefinite anticoagulation. CVA: She developed Left hemiparesis shortly after the PE. CT head and MRI were completed, with visualization of new posterior right frontal lobe infarction. Neurology was consulted. She completed a full stroke workup--TTE, MRA, metabolic labs- with unremarkable findings. The etiology of the stroke was thought to be PFO vs possible underlying hyperviscosity related to CLL. Repeat echo with bubble study wasnot performed, as she would be on anticoagulation. Viscosity level was normal. Per neurology's discussion with hematology, it would be unusual for CLL to be associated with hyperviscosity. Given that she failed ASA therapy, clopidogrel was recommended for secondary stroke prevention. Thiswas not started due to complications of occular bleed and thigh hematoma from the TPA. She will haveneurology follow up. Right occular hematoma s/p vitrectomy: Post TPA, she developed an acute right occular hematoma and left thigh hematoma with intermittent transfusion requirements. Opthalmology was consulted, with no immediate indication for surgical intervention. CT abdomen/pelvis and L. Femur was completed without evidence of RP bleed and stable 11x8cm hematoma of left thigh. She remained HDS this admission. Hb trended to the upper 7s prior to discharge.She was discharged on statin, and will be evaluated later for clopidogrel therapy. Important Studies and Lab Data: Recent Labs 07/22/16 0426 07/21/16 0528 07/20/16 0704 WBC 146.2* 138.7* 142.5* HGB 7.9* 7.6* 7.0* HCT 27.0* 24.9* 23.7* PLATELET 280 221 191 Recent Labs 07/19/16 0448 07/17/16 0400 07/16/16 0845 NA 142 144 140 K See Note See Note See Note CL 105 112* 110* CO2 25 22 20* BUN 10 13 16 CREATININE 0.67* 0.73 0.86 Recent Labs 07/19/168 07/17/16 0400 07/16/16 0845 BILITOT 0.7 0.3 0.2 BILIDIR 0.1 0.1 0.1 AST 54* 52* 42* ALT 46* 36* 23 ALKPHOS 53 47 46 No results for input(s): INR, PTT in the last 168 hours. PENDING LABS: None Microbiology: None Pertinent radiology/diagnostic studies: CT Abd/pelvis 07/21 IMPRESSION 1. No retroperitoneal hematoma. 2. Stranding within the subcutaneous soft tissues along the left hip extending into the left lower extremity. This likely is an extension of the left leg hematoma. Please see separate CT report for theleft lower extremity CT exam. 3. Subtle degree of fat stranding surrounding the gallbladder. In the setting of right upper quadrant pain, consider acute cholecystitis. Further evaluation with ultrasound may give additional information if clinically appropriate. 4. Sigmoid diverticulosis without evidence of acute diverticulitis. ?? CT Left thigh 07/21 IMPRESSION Ill-defined high-density fluid collection measuring approximately 11 x 6 x 5 cm enlarging the left vastus lateralis muscle, with surrounding muscle edema as well as lateral subcutaneous edema along theleft thigh, compatible with a hematoma in the appropriate clinical setting. ? MRA Brain and neck 07/20 IMPRESSION Multiple acute bilateral MCA infarctions with no significant mass effect. ? No significant vascular abnormalities MRI, 07/14 IMPRESSION 1. Punctate focus of probable diffusion restriction within the posterior right frontal lobe may represent a small focus of acute ischemia. 2. High signal within the cortex of the right posterior cerebrum without corresponding low signal on the ADC map. This does not reflect acute ischemia and is likely artifactual. However, without the benefit of additional MRI sequences, an alternative underlying process such as seizure edema cannot be entirely excluded. ? CT PE, 07/14 FINDINGS: Pulmonary arteries: Large filling defect extending along the bifurcation of the right and left main pulmonary arteries consistent with a saddle embolus. Filling defects are seen extending into almost all visualized pulmonary artery segments, but predominantly within the basilar segments. ? Other cardiovascular structures: There is evidence of right heart strain based on the RIGHT-LEFT ventricular ratio which is >1 using the right ventricle which measures 3.9 cm to the left ventricle which measures 3.2 cm. ? Lungs and airways:? No significant findings. Pleura and pericardium: No significant findings. ? Mediastinum and hilar structures: No lymphadenopathy. ? Limited views of the upper abdomen: No significant findings. Skeletal structures: No aggressive lytic or sclerotic lesions. ? IMPRESSION Large saddle embolism with evidence of right heart strain, as above. ? CT Head, non con, 07/14 IMPRESSION No acute intracranial abnormality. Intraocular air and fluid on the right. ? TTE, 07/14 SUMMARY: ? 1. Basal septal hypertrophy is observed. There is normal global left ventricular systolic function. The quantitative left ventricular ejection fraction by biplane Schwartz's method is 58%. There are no left ventricular segmental wall motion abnormalities. There is septal flattening present consistent with right ventricular pressure overload. 2. The right ventricle is moderately dilated. Right ventricular global systolic function is probably normal. 3. The estimated pulmonary artery systolic pressure is 41 mmHg. 4. There is moderate (2+/4+) tricuspid regurgitation present. 5. See remainder of report for additional findings. ? Discharge Conditions/Prognosis: Pulmonary embolus, Right CVA, occular and Left thigh hematoma. Clinically stable . Discharge to: Rehab Discharge Medications: Your Medications Notice Some of the medications listed here do not show instructions, such as how often to take the medication. Ask your doctor or nurse how to use these medications. Specifically ask about these and similar medications: - Glucosamine Sulfate 500 mg Tab - omeprazole (PRILOSEC) 20 mg capsule - cycloSPORINE (RESTASIS) 0.05 % ophthalmic emulsion New Medications Dose Details bisacodyl 10 mg Supp Commonly known as: DULCOLAX Place 1 suppository rectally daily. 10 mg Quantity: 60 suppository Refills: 3 docusate sodium 100 mg Cap Commonly known as: COLACE Take 1 capsule by mouth 2 times daily for 10 days. 100 mg Quantity: 10 capsule Refills: 0 enoxaparin 80 mg/0.8 mL Syrg Commonly known as: LOVENOX Inject 0.8 mLs subcutaneously every 12 hours. 80 mg Quantity: 30 Syringe Refills: 11 oxyCODONE 5 mg Tab Commonly known as: ROXICODONE Take 1 tablet by mouth every 4 hours as needed for Pain. 5 mg Quantity: 56 tablet Refills: 0 polyethylene glycol 17 gram Pwpk Commonly known as: MIRALAX Take 17 g by mouth 2 times daily. 17 g Quantity: 14 each Refills: 0 Continued medications, unchanged Dose Details glucosamine sulfate 500 mg Tab ?nk?wn!?? Refills: 0 Green Tea Extract 500 mg Cap Take 500 mg by mouth daily. 500 mg Refills: 0 imipramine 10 mg Tab Commonly known as: TOFRANIL Take 10 mg by mouth 2 times daily. 10 mg Refills: 0 melatonin 3 mg Tab Take 3 mg by mouth nightly as needed. 3 mg Refills: 0 moxifloxacin 0.5 % Drop Commonly known as: VIGAMOX Place 1 drop into the right eye 4 times daily. 1 drop Refills: 0 multivitamin Cap Take 1 capsule by mouth daily. 1 capsule Refills: 0 mpwdnetb-urpxqvtxe-zwovgenxnjpmm 3.5 mg/g-10,000 unit/g-0.1 % Oint Commonly known as: DEXACINE Place 1 Tube into the right eye nightly as needed. 1 Tube Refills: 0 prednisoLONE acetate 1 % Drps Commonly known as: PRED FORTE Place 1 drop into the right eye 4 times daily. 1 drop Refills: 0 PriLOSEC 20 mg Cpdr ?nk?wn!?? Generic drug: omeprazole Refills: 0 RESTASIS 0.05 % Dpet ?nk?wn!?? Generic drug: cycloSPORINE Refills: 0 VITAMIN D 2,000 unit Cap Take 2,000 mg by mouth. Generic drug: cholecalciferol (Vitamin D3) 2000 mg Refills: 0 STOPPED Medications aspirin 81 mg Tbec estradiol 0.5 mg Tab Commonly known as: ESTRACE Updated Allergies/ADRs: Allergies Allergen Reactions ??? Penicillins Rash ??? Sulfa (Sulfonamide Antibiotics) CIS - Unknown ??? Penicillins CIS - Rash Instructions Given to Patient at Discharge: Patient Instructions Instruction after leaving the hospital Why you were hospitalized: Pulmonary embolus, stroke, R. Eye hematoma Call your doctor or seek medical attention if you develop the following: Call your doctor or seek medical attention if you experience any alarming symptoms. This may include, but is not limited to, fever, chest pain, severe shortness of breath, nausea with vomiting, persistent decrease in your urinaryoutput, severe pain, or any other concerning symptoms. Activity level: As tolerated. Diet: No new restrictions. Driving: Please do not drive if you feel lightheaded, dizzy, faint, or taking any opioids/narcotics (i.e oxycodone). It is advisable that you do not drive till you follow-up with your primary care physician. Shower/Bath: No new restrictions. Wound Care: RYDER dressing over L thigh PT Recommendations: Encourage increasing mobility and participation in self care. Precautions/Restrictions: fall (pain, bleeding precautions) , pt allowed short time in supine (procedures), cont. With(L) sidelying OT Recommendations: Pt seen today for skilled occupational therapy interventions. Session focused on increasing endurance and activity tolerance to promote health maintenance. Pt tolerated session well, she was able to sit at EOB ~15 min, she doffed/donned maya frias with set up. She attempted to mobilize to bathroom but stated she felt too fatigued and needed to sit. Pt appeared very anxious once seated displaying rapid short breaths and shakiness, pt education and training provided for pursed lip breathing and relaxation visualization to assist with anxiety and coping. Pt will benefit from ongoing therapeutic interventions to achieve pt's and therapy goals. Please refer to associated flowsheet data for treatment se ssion details. ? Therapy Frequency: 2-3 times/wk ? Anticipated Equipment Needs at Discharge: shower chair ? Anticipated Discharge Disposition: inpatient rehabilitation facility Home Oxygen therapy: N/A Patient Instructions: Changes in Your Medications: New Medications: Lovenox 80mg twice daily Oxycodone 5mg. Take every 4 hours as needed for pain Miralax twice daily Docusate twice daily Bisacodyl suppository daily Medication dose changes: None Stop these medications: Aspirin 81mg daily Estrogen Follow-Up Appointments Future Appointments Date Time Provider Department Center 08/19/2016 10:30 AM Lamine Rocha PA [facility] 09/26/2016 2:45 PM LABORATORY, TECH [facility] 09/26/2016 3:45 PM Alan Livingston MD [facility] Onc [facility] Date and Time Provider and Specialty Location 08/04/16 3pm Berkley Madrigal MD , PCP KRYSTLE Katarina [address] / [facility] [address] Your Inpatient Doctor(s) at [facility]: No att. providers found Josr Chapman MD Li, Eileena, MD Your Primary Care Provider: Berkley Madrigal MD KRYSTLE Katarina [address] / [place] [address] For questions regarding this document or issues relating to this hospitalization on the Medical Service, please contact your inpatient physician through the [facility] [employer] . Issues after hours and on weekends will be handled by the Hospitalist staff on-call. General Instructions None Future Appointments and Orders Future Appointments Provider Department Dept Phone 08/19/2016 10:30 AM Lamine Rocha PA Neurology [phone] 09/26/2016 2:45 PM LABORATORY, TECH [facility] [phone] 09/26/2016 3:45 PM Nilam So, [employer]; Alan Livingston MD [facility] Onc [phone] Future Orders Complete By Expires Referral to Neurology [REF46 Custom] As directed Process Instructions: If no progress note charted, please enter Clinical details in comments. Scheduling Instructions: Comments: Please select a template from the list below. I am referring to neurology my 66 y.o. female patient Carol Keller for evaluation. OPTIONAL The following results are available in eDH: MRI Brain with and without contrast, MRI LumbarSpine, MRI Cervical Spine, MRI Thoracic Spine, CT Head, MRA Head, MRA Neck, CTA Head, CTA Neck, Vitamin B12, MMA, Folate, TSH, HIV, Vitamin D, Ferritin, and HgbA1c. MRI Brain: No results found. MRA Head: No results found. MRA Neck: No results found. CTA Head: No results found. MRI Cervical: No results found. MRI Thoracic Spine: No results found. MRI Lumbar Spine: No results found. CT Head: No results found. Lab Results Component Value Date TSH 2.68 12/21/2015 HA1C 6.0 (H) 02/01/2016 The most current assessment of this problem can be found in the e[facility] note dated 07/18/2016 My clinical question: continue management of new R frontal stroke. Pending specialist evaluation, I anticipate (Choose one): [X] Referral as Co-Management Do not type below here [id number] Questions: My question or request is: Follow up for stroke care Provider Contact Information: Berkley Madrigal MD KRYSTLE D [address] / [facility] [address] For questions regarding this document or issues relating to this hospitalization on the Medical Service, please contact your inpatient physician through the [facility] [employer] . Issues after hours and on weekends will be handled by the Hospitalist staff on-call. Discharge References/Attachments: Discharge References/Attachments None documented in this encounter Discharge Instructions Patient Kareen De Jesus MD - 07/18/2016 11:51 AM EST Instruction after leaving the hospital Why you were hospitalized: Pulmonary embolus, stroke, R. Eye hematoma Call your doctor or seek medical attention if you develop the following: Call your doctor or seek medical attention if you experience any alarming symptoms. This may include, but is not limited to, fever, chest pain, severe shortness of breath, nausea with vomiting, persistent decrease in your urinaryoutput, severe pain, or any other concerning symptoms. Activity level: As tolerated. Diet: No new restrictions. Driving: Please do not drive if you feel lightheaded, dizzy, faint, or taking any opioids/narcotics (i.e oxycodone). It is advisable that you do not drive till you follow-up with your primary care physician. Shower/Bath: No new restrictions. Wound Care: RYDER dressing over L thigh PT Recommendations: Encourage increasing mobility and participation in self care. Precautions/Restrictions: fall (pain, bleeding precautions) , pt allowed short time in supine (procedures), cont. With(L) sidelying OT Recommendations: Pt seen today for skilled occupational therapy interventions. Session focused on increasing endurance and activity tolerance to promote health maintenance. Pt tolerated session well, she was able to sit at EOB ~15 min, she doffed/donned maya frias with set up. She attempted to mobilize to bathroom but stated she felt too fatigued and needed to sit. Pt appeared very anxious once seated displaying rapid short breaths and shakiness, pt education and training provided for pursed lip breathing and relaxation visualization to assist with anxiety and coping. Pt will benefit from ongoing therapeutic interventions to achieve pt's and therapy goals. Please refer to associated flowsheet data for treatment session details. ? Therapy Frequency: 2-3 times/wk ? Anticipated Equipment Needs at Discharge: shower chair ? Anticipated Discharge Disposition: inpatient rehabilitation facility Home Oxygen therapy: N/A Patient Instructions: Changes in Your Medications: New Medications: Lovenox 80mg twice daily Oxycodone 5mg. Take every 4 hours as needed for pain Miralax twice daily Docusate twice daily Bisacodyl suppository daily Medication dose changes: None Stop these medications: Aspirin 81mg daily Estrogen Follow-Up Appointments Future Appointments Date Time Provider Department Center 08/19/2016 10:30 AM Lamine Rocha PA [facility] 09/26/2016 2:45 PM LABORATORY, TECH [facility] 09/26/2016 3:45 PM Alan Livingston MD [facility] Date and Time Provider and Specialty Location 08/04/16 3pm Berkley Madrigal MD , PCP KRYSTLE Bray [address] / [place] [address] Your Inpatient Doctor(s) at [facility]: No att. providers found Josr Chapman MD Li, Eileena, MD Your Primary Care Provider: MD ISMA Gray [address] / [place] [id number] For questions regarding this document or issues relating to this hospitalization on the Medical Service, please contact your inpatient physician through the [facility] [employer] . Issues after hours and on weekends will be handled by the Hospitalist staff on-call. documented in this encounter Medications at Time of Discharge Medication Sig Dispensed Refills Start Date End Date Green Tea Extract Take 500 mg by mouth 0 500 mg Cap daily. melatonin 3 mg Tab Take 3 mg by mouth 0 nightly as needed. multivitamin Take 1 capsule by 0 capsule mouth daily. cholecalciferol, Take 2,000 mg by 0 Vitamin D3, 50 mcg mouth daily. (2,000 unit) Capsule docusate sodium Take 1 capsule by 10 capsule 0 07/22/2016 (COLACE) 100 mg mouth 2 times daily Capsule for 10 days. enoxaparin Inject 0.8 mLs 30 Syringe 11 07/22/2016 12/01/2016 (LOVENOX) 80 mg/0.8 subcutaneously every mL Syringe [address] 1 suppository 60 suppository 3 07/22/2016 0 09/02/2016 (DULCOLAX) 10 mg rectally daily. Suppository oxyCODONE Take 1 tablet by 56 tablet 0 07/22/2016 09/03/19 17 (ROXICODONE) 5 mg mouth every 4 hours Tablet as needed for Pain. polyethylene glycol Take 17 g by mouth 2 14 each 0 201609/02/2016 (MIRALAX) 17 gram times daily. Powder in Packet moxifloxacin Place 1 drop into the 0 0 08/04/2016 (VIGAMOX) 0.5 % right eye 4 times Drops daily. Reported on 08/04/[address] 1 drop into the 0 0 09/02/2016 acetate (PRED right eye 4 times FORTE) 1 % Drops, daily. Suspension neomycin-polymyxin- Place 1 Tube into the 0 08/04/2016 dexamethasone right eye nightly as (DEXACINE) 3.5 needed. Reported on mg/g-10,000 08/04/2016 unit/g-0.1 % Ointment imipramine Take 10 mg by mouth 0 11/03 (TOFRANIL) 10 mg every morning. tablet Glucosamine Sulfate 0 05/24/201009/02 500 mg Tab documented as of this encounter Progress Notes Lizeth Campbell MD - 07/22/2016 3:26 PM EST Hospital Medicine - Attending Day of Discharge Documentation Discharge diagnosis Active Hospital Problems Diagnosis ??? Pulmonary embolism Resolved Hospital Problems Diagnosis Date Resolved No resolved problems to display. Secondary Issues Active Non-Hospital Problems Diagnosis ??? AK (actinic keratosis) ??? History of SCC (squamous cell carcinoma) of skin ??? Macular pucker, right eye ??? Horseshoe retinal tear, right eye ??? SVT (supraventricular tachycardia) ??? Urinary incontinence, overflow ??? GERD (gastroesophageal reflux disease) ??? Diabetes mellitus ??? CLL (chronic lymphocytic leukemia) I have personally seen and examined the patient and they are ready for discharge. I spent >30 minutes (Day of Discharge Code 69010) involved in the final examination of the patient, discussion of the hospital stay, instructions for continuing care to all relevant caregivers, and preparation of discharge records, prescriptions and referral forms. Plans ? Discharge to [facility] ? Follow-up scheduled with - referred to neurology, hematology follow-up ? Please see the Discharge Summary for complete details of any medication changes and additional plans. Nina Vizcaino RN - 07/22/2016 3:05 PM EST NINA BUTTS RN CASE MANAGER PAGER [phone] Case reviewed with interdisciplinary team and eDH. Patient being transferred to [facility]. Daughter here and will be providing transportation. An Important Message From Medicare about Your Rights letter reviewed with pt and pt signed acknowledgment and was provided copy E Ruby, August - 07/22/2016 3:04 PM EST Office of Care Management/Lip Reading Teacher Patient Name: Carol Keller : 1950 Patient has been offered a swing bed at [facility] for today. Family will transport. MD to MD to Dr. Gaytan at [phone]. Please call Nursing Report to [phone], ask for inspector type. Info to accompany patient: Narcotic Prescriptions Copies of Medication Administration Records and IV sheets for past 10 days. Plan: Lip Reading Teacher will be available to the patient and Laminating Machine Operator-RN and/or Forestry Instructor for further assistance. Patient will be discharged to: [address] [place] [address] Aixa Ruby Lip Reading Teacher Pati Vazquez RN - 07/22/2016 2:44 PM EST A+O. VSS. Pt had a large BM this afternoon. Pt ambulating with a SBA with a walker. Discharge ordersplaced, PIV removed per policy. Pt going to [facility] for a SNF bed. AVS reviewed by this RN. Pt to be transferred to [facility] via daughter in personal vehicle. Report called to [facility]. Nina Vizcaino RN - 07/22/2016 12:30 PM EST NINA BUTTS RN CASE MANAGER PAGER [phone] Case reviewed with interdisciplinary team and in eDH. Patient is medically ready for discharge today. Treated for pulmonary embolus, Right CVA, occular and Left thigh hematoma. Clinically stable. She would like placement at [facility]. She was declined for acute rehab there as she does not meetmedical criteria. She is open to admission there at SNF level. Referral updated accordingly. A member of the Care Management team will continue to monitor progress, follow for continuity of care and assist with transition of care planning. Kareen Don MD - 07/22/2016 10:57 AM EST Inpatient Medicine Progress Note Hospital Day 8 days Active Hospital Problems Diagnosis ??? Pulmonary embolism Resolved Hospital Problems Diagnosis Date Resolved No resolved problems to display. ID: Carol Keller is a 66 y.o. female with PMH of CLL, diet controlled diabetes, recent vitrectomy who presented with submassive PE and stroke, s/p tPA (given for PE) complicated by ocular bleed and left thigh hematoma. 24 Hour Interval Events / Subjective: - CT abd/pelvis completed, negative for RP bleed. Left thigh CT completed with visualized stable hematoma - No acute events overnight - This am, doing well, no new complaints. Denies CIA/focal weaknesses/ numbness/ tingling. No SOB, CP. Inpatient Medications: Reviewed in JUL, notable for: Scheduled Meds: ??? polyethylene glycol (MIRALAX)oral powder 17 g Oral BID ??? bisacodyl 10 mg Rectal Daily ??? [id number]-gonxlegkf-dbinxfgrstfeo 1 Tube Right Eye BID ??? senna 8.6 mg Oral BID ??? docusate sodium 100 mg Oral BID ??? white petrolatum-mineral oil Both Eyes 4 Times Daily ??? enoxaparin 80 mg Subcutaneous Q12H ??? prednisoLONE acetate 1 drop Right Eye 4 Times Daily ??? pantoprazole 20 mg Oral Daily ??? melatonin 3 mg Oral Nightly Continuous Infusions: PRN Meds:.ondansetron, prochlorperazine, oxyCODONE, acetaminophen Vitals: Last value Range last 24 hrs Temperature Temp: 36.9 ??C (98.4 ??F) Temp: [36.6 ??C (97.9 ??F)-37.1 ??C (98.8 ??F)] Heart Rate Heart Rate: 78 Heart Rate: [78-99] Blood Pressure BP: 128/53 BP: (114-142)/(42-67) Respiratory Rate Resp: 18 Resp: [18-20] SpO2 SpO2: 99 % SpO2: [94 %-99 %] 24h NET Ins/Outs: Intake/Output Summary (Last 24 hours) at 07/22/16 1104 Last data filed at 07/22/16 0400 Gross per 24 hour Intake 650 ml Output 1950 ml Net -1300 ml Patient Vitals for the past 168 hrs: Weight 07/22/16 0606 81.5 kg (179 lb 9.6 oz) 07/19/16 0636 80.5 kg (177 lb 7.5 oz) Physical Exam: Gen: NAD Eyes: right eye with orbital and periorbital bruising, left eye with improved infraorbital bruiding.+ ecchymoses over left lower chin CV: RRR, Normal S1/S2, no MRG Respiratory: clear to auscultation b/l GI: Soft, NT/ ND, + BS, -HSM Skin: wrap over left thigh- hematoma tracking to inguinal crease and left abdomen. Peripheral pulses++ on L distally. Neuro: unable to assess right eye, otherwise CNII-XII intact, 5/5 motor B/l Ext: No edema, 2+ PT pulses Labs: Reviewed & notable for: Recent Labs 07/22/16 0426 07/21/16 0528 07/20/16 0704 WBC 146.2* 138.7* 142.5* HGB 7.9* 7.6* 7.0* HCT 27.0* 24.9* 23.7* PLATELET 280 221 191 No results for input(s): INR in the last 168 hours. Recent Labs 07/19/16 0448 07/17/16 0400 07/16/16 0845 NA 142 144 140 K See Note See Note See Note CL 105 112* 110* CO2 25 22 20* BUN 10 13 16 CREATININE 0.67* 0.73 0.86 ?? Radiology/Other Pertinent Studies CT Abd/pelvis 3/ IMPRESSION 1. No retroperitoneal hematoma. 2. Stranding within the subcutaneous soft tissues along the left hip extending into the left lower extremity. This likely is an extension of the left leg hematoma. Please see separate CT report for the left lower extremity CT exam. 3. Subtle degree of fat stranding surrounding the gallbladder. In the setting of right upper quadrant pain, consider acute cholecystitis. Further evaluation with ultrasound may give additional information if clinically appropriate. 4. Sigmoid diverticulosis without evidence of acute diverticulitis. CT Left thigh 3/ IMPRESSION Ill-defined high-density fluid collection measuring approximately 11 x 6 x 5 cm enlarging the left vastus lateralis muscle, with surrounding muscle edema as well as lateral subcutaneous edema along the left thigh, compatible with a hematoma in the appropriate clinical setting. MRA Brain and neck 3/ IMPRESSION Multiple acute bilateral MCA infarctions with no significant mass effect. ?? No significant vascular abnormalities MRI, 07/14 IMPRESSION 1. Punctate focus of probable diffusion restriction within the posterior right frontal lobe may represent a small focus of acute ischemia. 2. High signal within the cortex of the right posterior cerebrum without corresponding low signal on the ADC map. This does not reflect acute ischemia and is likely artifactual. However, without the benefit of additional MRI sequences, an alternative underlying process such as seizure edema cannot be entirely excluded. ? CT PE, 07/14 FINDINGS: Pulmonary arteries: Large filling defect extending along the bifurcation of the right and left main pulmonary arteries consistent with a saddle embolus. Filling defects are seen extending into almost all visualized pulmonary artery segments, but predominantly within the basilar segments. ? Other cardiovascular structures: There is evidence of right heart strain based on the RIGHT-LEFT ventricular ratio which is >1 using the right ventricle which measures 3.9 cm to the left ventricle which measures 3.2 cm. ? Lungs and airways:? No significant findings. Pleura and pericardium: No significant findings. ? Mediastinum and hilar structures: No lymphadenopathy. ? Limited views of the upper abdomen: No significant findings. Skeletal structures: No aggressive lytic or sclerotic lesions. ? IMPRESSION Large saddle embolism with evidence of right heart strain, as above. ? CT Head, non con, 07/14 IMPRESSION No acute intracranial abnormality. Intraocular air and fluid on the right. ? TTE, 07/14 SUMMARY: ? 1. Basal septal hypertrophy is observed. There is normal global left ventricular systolic function. The quantitative left ventricular ejection fraction by biplane Schwartz's method is 58%. There are no left ventricular segmental wall motion abnormalities. There is septal flattening present consistent with right ventricular pressure overload. 2. The right ventricle is moderately dilated. Right ventricular global systolic function is probably normal. 3. The estimated pulmonary artery systolic pressure is 41 mmHg. 4. There is moderate (2+/4+) tricuspid regurgitation present. 5. See remainder of report for additional findings. ? Assessment: 66 y.o. female with PMH of CLL, DM, recent vitrectomy who presented with submassive PE and stroke, s/p tPA (given for PE) complicated by ocular bleed and thigh hematoma. CT abd/pelvis and left thigh obtained with stable hematoma. Her need for intermittent transfusions has decreased. Hb stable. Otherwise stable from a neuro, optho and pulmonary standpoint. Will likely need continued anticoagulation likely indefinitely on discharge. Will discharge on Lovenox BID and transition to PO agent, per heme. Pt to have close follow up with opthalmology and neurology. Currently medical ready for dc to rehab pending acceptance. Plan ?? Saddle PE s/p TPA: - Stable - Continue lovenox 80 BID--will discharge on this - Will continue on lovenox for 3 months, then consideration of DOAC on discharge - Likely will need indefinite anticoagulation - Heme f/u appt ??R. CVA: - Neurologically stable, neuro checks q4h - Holding aspirin and plavix due recent bleed--restart outpatient when stable - Continue atorvastatin 80 - Hold on repeat TTE with bubble study to eval for PFO--unlikely indicated as she is already anticoagulated ?? R eye hemorrhage s/p Vitrectomy - Continue daily drops per opthalmology - Lubricating ointment: Refresh PM 4x/d OD - d/c when exposure resolved - Per opthalmology, can lift horizontal plane restriction today, and able to lie flat on back for 1-2hrs Left thigh hematoma - Hematoma stable, peripheral pulses ++ - Continue IV morphine 6-10mg Q4hrs - Continue zofran 4mg Q8hrs prn - Continue compazine 10mg Q6hrs prn - CT abd/pelvis and left thigh completed with stable hematoma, no evidence of RP bleed CLL - stable, unlikely to be causing hyperviscosity Constipation - Continue miralax BID and senna, docusate, suppository QD ? - DVT PPx: Enoxaparin - Code Status: Partial. Patient stated that she would accept intubation, but no compression. - DOPA: Patient has named Cheyanne and Pakrer, her daughter and son respectively, as her joint DPOAs. She has not yet filled out paperwork and their contact info is below. Cheyanne Arianna [phone] Parker Arianna [phone] - Dispo: Pending dc to rehab Kareen Deluca MD 07/22/2016 Internal Medicine Team Pager [phone] Lizeth Campbell MD - 07/21/2016 6:34 AM EST Inpatient Medicine Progress Note Hospital Day 7 days Active Hospital Problems Diagnosis ??? Pulmonary embolism Resolved Hospital Problems Diagnosis Date Resolved No resolved problems to display. ID: Carol Keller is a 66 y.o. female with PMH of CLL, diet controlled diabetes, recent vitrectomy who presented with submassive PE and stroke, s/p tPA (given for PE) complicated by ocular bleed and left thigh hematoma. 24 Hour Interval Events / Subjective: - Transfused 1u RBC yet - No acute events overnight, MRA completed - This am, doing well. L thigh pain improved. Vision in right eye improved. Denies CAI/focal weaknesses/ numbness/ tingling. No SOB, CP. Has not had a BM yet. ROS: Denies CP, SOB, N/V/D, dizziness or lightheadedness Inpatient Medications: Reviewed in JUL, notable for: Scheduled Meds: ??? polyethylene glycol (MIRALAX)oral powder 17 g Oral BID ??? bisacodyl 10 mg Rectal Daily ??? yewvvoit-ekthjcxoz-mdoohgpsfnuxb 1 Tube Right Eye BID ??? senna 8.6 mg Oral BID ??? docusate sodium 100 mg Oral BID ??? white petrolatum-mineral oil Both Eyes 4 Times Daily ??? enoxaparin 80 mg Subcutaneous Q12H ??? prednisoLONE acetate 1 drop Right Eye 4 Times Daily ??? pantoprazole 20 mg Oral Daily ??? melatonin 3 mg Oral Nightly Continuous Infusions: PRN Meds:.ondansetron, prochlorperazine, oxyCODONE, acetaminophen Vitals: Last value Range last 24 hrs Temperature Temp: 36.7 ??C (98.1 ??F) Temp: [36.4 ??C (97.5 ??F)-37.2 ??C (99 ??F)] Heart Rate Heart Rate: 82 Heart Rate: [80-90] Blood Pressure BP: 93/47 BP: (93-128)/(44-58) Respiratory Rate Resp: 18 Resp: [16-20] SpO2 SpO2: 97 % SpO2: [96 %-98 %] 24h NET Ins/Outs: Intake/Output Summary (Last 24 hours) at 07/21/16 1009 Last data filed at 07/21/16 0639 Gross per 24 hour Intake 700 ml Output 2600 ml Net -1900 ml Patient Vitals for the past 168 hrs: Weight 07/19/16 0636 80.5 kg (177 lb 7.5 oz) 07/15/16 0600 74.6 kg (164 lb 7.4 oz) 07/14/16 1530 76.3 kg (168 lb 3.4 oz) 07/14/16 1132 76 kg (167 lb 8.8 oz) Physical Exam: Gen: NAD Eyes: right eye with orbital and periorbital bruising, left eye with improved infraorbital bruiding.+ ecchymoses over left lower chin CV: RRR, Normal S1/S2, no MRG Respiratory: clear to auscultation b/l GI: Soft, NT/ ND, + BS, -HSM Skin: wrap over left thigh- hematoma tracking to inguinal crease. Peripheral pulses ++ on L distally. Neuro: unable to assess right eye, otherwise CNII-XII intact, 5/5 motor B/l Ext: No edema, 2+ PT pulses Labs: Reviewed & notable for: Recent Labs 07/21/16 0528 07/20/16 0704 07/19/16 0448 WBC 138.7* 142.5* 130.4* HGB 7.6* 7.0* 7.5* HCT 24.9* 23.7* 23.9* PLATELET 221 191 154 Recent Labs 07/15/16 0210 INR 1.4* Recent Labs 07/19/16 0448 07/17/16 0400 07/16/16 0845 NA 142 144 140 K See Note See Note See Note CL 105 112* 110* CO2 25 22 20* BUN 10 13 16 CREATININE 0.67* 0.73 0.86 ?? Radiology/Other Pertinent Studies MRA Brain and neck 07/20 IMPRESSION Multiple acute bilateral MCA infarctions with no significant mass effect. ?? No significant vascular abnormalities MRI, 07/14 IMPRESSION 1. Punctate focus of probable diffusion restriction within the posterior right frontal lobe may represent a small focus of acute ischemia. 2. High signal within the cortex of the right posterior cerebrum without corresponding low signal on the ADC map. This does not reflect acute ischemia and is likely artifactual. However, without the benefit of additional MRI sequences, an alternative underlying process such as seizure edema cannot be entirely excluded. ? CT PE, 07/14 FINDINGS: Pulmonary arteries: Large filling defect extending along the bifurcation of the right and left main pulmonary arteries consistent with a saddle embolus. Filling defects are seen extending into almost all visualized pulmonary artery segments, but predominantly within the basilar segments. ? Other cardiovascular structures: There is evidence of right heart strain based on the RIGHT-LEFT ventricular ratio which is >1 using the right ventricle which measures 3.9 cm to the left ventricle which measures 3.2 cm. ? Lungs and airways:? No significant findings. Pleura and pericardium: No significant findings. ? Mediastinum and hilar structures: No lymphadenopathy. ? Limited views of the upper abdomen: No significant findings. Skeletal structures: No aggressive lytic or sclerotic lesions. ? IMPRESSION Large saddle embolism with evidence of right heart strain, as above. ? CT Head, non con, 07/14 IMPRESSION No acute intracranial abnormality. Intraocular air and fluid on the right. ? TTE, 07/14 SUMMARY: ? 1. Basal septal hypertrophy is observed. There is normal global left ventricular systolic function. The quantitative left ventricular ejection fraction by biplane Schwartz's method is 58%. There are no left ventricular segmental wall motion abnormalities. There is septal flattening present consistent with right ventricular pressure overload. 2. The right ventricle is moderately dilated. Right ventricular global systolic function is probably normal. 3. The estimated pulmonary artery systolic pressure is 41 mmHg. 4. There is moderate (2+/4+) tricuspid regurgitation present. 5. See remainder of report for additional findings. ? Assessment: 66 y.o. female with PMH of CLL, DM, recent vitrectomy who presented with submassive PE and stroke, s/p tPA (given for PE) complicated by ocular bleed and thigh hematoma. Continues with intermittent need for transfusion without clear souce. Will obtain CT abd/pelvis and L thigh today to evaluate to retr operitoneal vs thigh hematoma given soft BPs in the setting of recent need for transfusions. Otherwise stable from a neuro, optho and pulmonary standpoint. Will likely need continued anticoagulation likely indefinitely on discharge, planning to discharge on Lovenox BID and transition to PO agent, per heme. Pt to have close follow up with opthalmology and neurology, and will complete the rest of her stroke workup outpatient. Pending dc to rehab. Plan ?? Saddle PE s/p TPA: - Stable - Continue lovenox 80 BID--will discharge on this - Will continue on lovenox for 3 months, then consideration of DOAC on discharge - Likely will need indefinite anticoagulation ??R. CVA: - Neurologically stable, neuro checks q4h - Holding aspirin and plavix due recent bleed--restart outpatient when stable - Continue atorvastatin 80 - Hold on repeat TTE with bubble study to eval for PFO--unlikely indicated as she is already anticoagulated ?? R eye hemorrhage s/p Vitrectomy - Continue daily drops per opthalmology - Lubricating ointment: Refresh PM 4x/d OD - d/c when exposure resolved - Per opthalmology, can lift horizontal plane restriction today, and able to lie flat on back for 1-2hrs Left thigh hematoma - Hematoma stable, peripheral pulses ++ - Continue IV morphine 6-10mg Q4hrs - Continue zofran 4mg Q8hrs prn - Continue compazine 10mg Q6hrs prn - CT abd/pelvis and left thigh today CLL - stable, unlikely to be causing hyperviscosity Constipation - Continue miralax BID and senna, docusate, suppository QD ? - DVT PPx: Enoxaparin - Code Status: Partial. Patient stated that she would accept intubation, but no compression. - DOPA: Patient has named Cheyanne and Parker, her daughter and son respectively, as her joint DPOAs. She has not yet filled out paperwork and their contact info is below. Cheyanne Arianna [phone] Parker Arianna [phone] - Dispo: Pending dc to rehab Kareen Deluca MD 07/21/2016 Internal Medicine Team Pager [phone] Attending Attestation ? Please see Dr. Deluca's note for details of the patient history of presentation and data. I have discussed, reviewed and agree with the documented History, Physical findings, Assessment and Plan of care. ? 66 y/o with CLL admitted with CVA and submassive PE treated with tPA complicated by ocular bleeding from recent vitrectomy (ophtho following) and left thigh hematoma. Acute blood loss anemia with nadirto 6.4 with baseline 12-13 - has required transfusions every other day but remains otherwise HD stable and clinically improving. ? 1. Acute blood loss anemia: Most likely related to large left thigh hematoma (has diffuse ecchymosesas well) and still suspect this is equilibrating rather than active bleeding (hard to exclude slow ooze but clinically leg improving). She remains HD stable. Left foot warm with palpable pulses. Left thigh wrapped and soft. Will monitor additional day to see that does not need further transfusion prior to SNF. CT today to eval size of hematoma (for future comparison also if anemia persists). ? 2. PE s/p tPA for right heart strain: Trop 0.11 on admit, BNP 143 (prognostic markers); TTE septal flattening, mod dilated RV, PASP 41. ICU tx'd with tPA for submassive PE and remains on lovenox x 3 mothen oral option indefinitely as tolerates per heme. ? 3. CVA: Holding ASA, plavix with bleeding. Possible PFO and PE/CVA related but given will be on AC regardless unlikely to exchange engineer - will hold on TTE with bubble. Appreciate neuro input. MRI/MRA with multiple acute bilateral MCA infarcts - no mass effect. ? 4. Right eye hemorrhage - appreciate ophtho input - saw Dr. Coffey 07/20. Dispo - rehab - possibly tomorrow if H/H stable and clinically stable. ? I have examined the patient myself and personally reviewed all studies. In addition, I certify that I am a [facility] credentialed attending provider with admitting privileges and that the patient meets or has met medical necessity to require an inpatient IPI level of care meeting a minimum of two midnights or is on the CMS inpatient only procedure list (status C) due to: Submassive PE s/p tPA with acute blood loss anemia, ocular hemorrhage; referrals in place Karin Seth OTA - 07/20/2016 1:48 PM EST Attempted to see pt today for OT treatment. Patient unavailable; about to receive transfusion. Will follow up as available / appropriate for Occupational Therapy Services. Pager [phone] Karin Baer. LUCRECIA [facility] Occup[facility] Department Lizeth Campbell MD - 07/20/2016 6:55 AM EST Inpatient Medicine Progress Note Hospital Day 6 days Active Hospital Problems Diagnosis ??? Pulmonary embolism Resolved Hospital Problems Diagnosis Date Resolved No resolved problems to display. ID: Carol Keller is a 66 y.o. female with PMH of CLL, diet controlled diabetes, recent vitrectomy who presented with submassive PE and stroke, s/p tPA (given for PE) complicated by ocular bleed and left thigh hematoma. 24 Hour Interval Events / Subjective: - Per heme, recommend dc on lovenox - No acute events overnight - This am, doing better. Continues with L thigh pain. Denies CAI/focal weaknesses/ numbness/ tingling. No SOB, CP. ROS: Denies CP, SOB, N/V/D, dizziness or lightheadedness Inpatient Medications: Reviewed in JUL, notable for: Scheduled Meds: ??? polyethylene glycol (MIRALAX)oral powder 17 g Oral Daily ??? senna 8.6 mg Oral BID ??? docusate sodium 100 mg Oral BID ??? white petrolatum-mineral oil Both Eyes 4 Times Daily ??? enoxaparin 80 mg Subcutaneous Q12H ??? moxifloxacin 1 drop Right Eye 4 Times Daily ??? prednisoLONE acetate 1 drop Right Eye 4 Times Daily ??? nvwjookb-qobyhlfwt-fjwdrvwkrpgqq 1 Tube Right Eye Nightly ??? pantoprazole 20 mg Oral Daily ??? melatonin 3 mg Oral Nightly Continuous Infusions: PRN Meds:.ondansetron, prochlorperazine, oxyCODONE, acetaminophen Vitals: Last value Range last 24 hrs Temperature Temp: 37.8 ??C (100 ??F) Temp: [36.7 ??C (98.1 ??F)-37.8 ??C (100 ??F)] Heart Rate Heart Rate: 84 Heart Rate: [82-93] Blood Pressure BP: 117/47 BP: (114-129)/(44-50) Respiratory Rate Resp: 18 Resp: [16-19] SpO2 SpO2: 97 % SpO2: [86 %-97 %] 24h NET Ins/Outs: Intake/Output Summary (Last 24 hours) at 07/20/16 0955 Last data filed at 07/20/16 0222 Gross per 24 hour Intake 260 ml Output 725 ml Net -465 ml Patient Vitals for the past 168 hrs: Weight 07/19/16 0636 80.5 kg (177 lb 7.5 oz) 07/15/16 0600 74.6 kg (164 lb 7.4 oz) 07/14/16 1530 76.3 kg (168 lb 3.4 oz) 07/14/16 1132 76 kg (167 lb 8.8 oz) Physical Exam: Gen: NAD Eyes: right eye with orbital and periorbital bruising, left eye with improved infraorbital bruiding.+ ecchymoses over left lower chin CV: RRR, Normal S1/S2, no MRG Respiratory: clear to auscultation b/l GI: Soft, NT/ ND, + BS, -HSM Skin: wrap over left thigh- hematoma extending to inguinal crease. Peripheral pulses ++ on L distally. Neuro: unable to assess right eye, otherwise CNII-XII intact, 5/5 motor B/l Ext: No edema, 2+ PT pulses Labs: Reviewed & notable for: Recent Labs 07/20/16 0704 07/19/16 0448 07/18/16 0809 WBC 142.5* 130.4* 137.3* HGB 7.0* 7.5* 6.9* HCT 23.7* 23.9* 21.9* PLATELET 191 154 147 Recent Labs 07/15/16 0210 07/14/16 0844 INR 1.4* 1.1 Recent Labs 07/19/16 0448 07/17/16 0400 07/16/16 0845 NA 142 144 140 K See Note See Note See Note CL 105 112* 110* CO2 25 22 20* BUN 10 13 16 CREATININE 0.67* 0.73 0.86 ?? Radiology/Other Pertinent Studies: LE Doppler- Cannot complete due to restriction from supine position MRA neck- cannot complete due to restriction from supine position MRI, 07/14 IMPRESSION 1. Punctate focus of probable diffusion restriction within the posterior right frontal lobe may represent a small focus of acute ischemia. 2. High signal within the cortex of the right posterior cerebrum without corresponding low signal on the ADC map. This does not reflect acute ischemia and is likely artifactual. However, without the benefit of additional MRI sequences, an alternative underlying process such as seizure edema cannot be entirely excluded. ? CT PE, 07/14 FINDINGS: Pulmonary arteries: Large filling defect extending along the bifurcation of the right and left main pulmonary arteries consistent with a saddle embolus. Filling defects are seen extending into almost all visualized pulmonary artery segments, but predominantly within the basilar segments. ? Other cardiovascular structures: There is evidence of right heart strain based on the RIGHT-LEFT ventricular ratio which is >1 using the right ventricle which measures 3.9 cm to the left ventricle which measures 3.2 cm. ? Lungs and airways:? No significant findings. Pleura and pericardium: No significant findings. ? Mediastinum and hilar structures: No lymphadenopathy. ? Limited views of the upper abdomen: No significant findings. Skeletal structures: No aggressive lytic or sclerotic lesions. ? IMPRESSION Large saddle embolism with evidence of right heart strain, as above. ? CT Head, non con, 07/14 IMPRESSION No acute intracranial abnormality. Intraocular air and fluid on the right. ? TTE, 07/14 SUMMARY: ? 1. Basal septal hypertrophy is observed. There is normal global left ventricular systolic function. The quantitative left ventricular ejection fraction by biplane Schwartz's method is 58%. There are no left ventricular segmental wall motion abnormalities. There is septal flattening present consistent with right ventricular pressure overload. 2. The right ventricle is moderately dilated. Right ventricular global systolic function is probably normal. 3. The estimated pulmonary artery systolic pressure is 41 mmHg. 4. There is moderate (2+/4+) tricuspid regurgitation present. 5. See remainder of report for additional findings. ? Assessment: 66 y.o. female with PMH of CLL, DM, recent vitrectomy who presented with submassive PE and stroke, s/p tPA (given for PE) complicated by ocular bleed and thigh hematoma. Continues with intermittent need for transfusion, but stable VSS. Holding off on CT thigh for now. Otherwise stable from a neuro, optho and pulmonary standpoint. Will likely need continued anticoagulation likely indefinitely on discharge, planning to discharge on Lovenox BID and transition to PO agent, per heme. Pt to have close follow up with opthalmology and neurology, and will complete the rest of her stroke workup outpatient. Pending dc to rehab. Will prophylactically transfuse 1u today prior to discharge. Plan ?? Saddle PE s/p TPA: - Stable - Continue lovenox 80 BID--will discharge on this - Will continue on lovenox for 3 months, then consideration of DOAC on discharge - Likely will need indefinite anticoagulation ??R. CVA: - Neurologically stable, neuro checks q4h - Holding aspirin and plavix due recent bleed--restart outpatient when stable - Continue atorvastatin 80 - MRA today - Hold on repeat TTE with bubble study to eval for PFO--unlikely indicated as she is already anticoagulated ?? R eye hemorrhage s/p Vitrectomy - Daily drops (prednisolone and Vigamox 4x/d OD) - Lubricating ointment: Refresh PM 4x/d OD - d/c when exposure resolved - Per opthalmology, can lift horizontal plane restriction today, but cannot lie flat on back - Opthal appointment with Dr. Coffey 8am--will f/u recs, if any Left thigh hematoma - Hematoma stable, peripheral pulses ++ - 1u RBC today for Hb 7.0 - Continue IV morphine 6-10mg Q4hrs - Continue zofran 4mg Q8hrs prn - Continue compazine 10mg Q6hrs prn - Holding off CT thigh for now given VSS CLL - stable, unlikely to be causing hyperviscosity Constipation - Continue miralax BID and senna, docusate, suppository QD ? - DVT PPx: Enoxaparin - Code Status: Partial. Patient stated that she would accept intubation, but no compression. - DOPA: Patient has named Jason, her daughter and son respectively, as her joint DPOAs. She has not yet filled out paperwork and their contact info is below. Cheyanne Keller [phone] Parker Keller [phone] - Dispo: Pending dc to rehab Kareen Deluca MD 07/20/2016 Internal Medicine Team Pager [phone] Attending Attestation ? Please see Dr. Deluca's note for details of the patient history of presentation and data. I have discussed, reviewed and agree with the documented History, Physical findings, Assessment and Plan of care. ? 66 y/o with CLL admitted with CVA and submassive PE treated with tPA complicated by ocular bleeding from recent vitrectomy (ophtho following) and left thigh hematoma. Acute blood loss anemia with nadirto 6.4 with baseline 12-13 - responded to tx on 07/16 but again to 6.9 07/18 - responded but now 7 today. ? 1. Acute blood loss anemia: Most likely related to large left thigh hematoma (has diffuse ecchymosesas well) and still suspect this is equilibrating rather than active bleeding (hard to exclude slow ooze but clinically leg improving). She remains HD stable. Left foot warm with palpable pulses. Left thigh wrapped with hematoma not extending beyond margins and soft. Will transfuse for 7 today and monitor response. ? 2. PE s/p tPA for right heart strain: Trop 0.11 on admit, BNP 143 (prognostic markers); TTE septal flattening, mod dilated RV, PASP 41. ICU tx'd with tPA for submassive PE and remains on lovenox x 3 mothen oral option indefinitely as tolerates per heme. ? 3. CVA: Holding ASA, plavix with bleeding. Possible PFO and PE/CVA related but given will be on AC regardless unlikely to exchange engineer - will hold on TTE with bubble. Appreciate neuro input. Recommended MRI/MRA - will request now that can lie flat with her eye for short periods. ? 4. Right eye hemorrhage - appreciate ophtho input and management - saw Dr. Coffey today. Dispo - rehab - possibly tomorrow if H/H stable and clinically stable. ? I have examined the patient myself and personally reviewed all studies. In addition, I certify that I am a D-H credentialed attending provider with admitting privileges and that the patient meets or has met medical necessity to require an inpatient IPI level of care meeting a minimum of two midnights or is on the CMS inpatient only procedure list (status C) due to: Submassive PE s/p tPA with acute blood loss anemia, ocular hemorrhage; referrals in place Rain Laws MSW - 07/19/2016 12:45 PM EST Based on discussions with the multi-disciplinary healthcare team, the patient would benefit from SNF/acute level of care at discharge. ?? I have met with the patient/inbound call center representative to discuss discharge planning needs. I have provided the [facility], Office of Care Management letter from the Line Up Worker pertaining to rehab referrals. I have also provided a letter describing our affiliations within the [facility] and educated them about their right to choose where referrals are placed. ?? I reviewed the different levels of rehab including SNF, swing, acute and LTAC with the patient/inbound call center representative. ?? The patient/inbound call center representative has been provided a list of facilities within their preferred geographic area. ?? I have requested that the patient/inbound call center representative provide at least three choices for referral. ?? The patient/inbound call center representative have requested referrals to: ?? 1. [facility] (for acute rehab only) ?? 2. [facility] ?? 3. ?? Expected date of discharge: Monday Note routed to Lip Reading Teacher who will communicate referrals to facilities and provide any required information. Office of Case Management- Social Work Note ADÁN Pond Pager [phone] Lizeth Bah MD - 07/19/2016 7:06 AM EST Inpatient Medicine Progress Note Hospital Day 5 days Active Hospital Problems Diagnosis ??? Pulmonary embolism Resolved Hospital Problems Diagnosis Date Resolved No resolved problems to display. ID: Carol Keller is a 66 y.o. female with PMH of CLL, diet controlled diabetes, recent vitrectomy who presented with submassive PE and stroke, s/p tPA (given for PE) complicated by ocular bleed and thigh hematoma. 24 Hour Interval Events / Subjective: - s/p 1u RBC transfusion yest for Hb 6.9 - No acute events overnight - This am, doing better. Left thigh pain improved. Denies CAI/focal weaknesses/ numbness/ tingling. No SOB, CP. ROS: Denies CP, SOB, N/V/D, dizziness or lightheadedness Inpatient Medications: Reviewed in MAR, notable for: Scheduled Meds: ??? polyethylene glycol (MIRALAX)oral powder 17 g Oral Daily ??? senna 8.6 mg Oral BID ??? docusate sodium 100 mg Oral BID ??? white petrolatum-mineral oil Both Eyes 4 Times Daily ??? enoxaparin 80 mg Subcutaneous Q12H ??? moxifloxacin 1 drop Right Eye 4 Times Daily ??? prednisoLONE acetate 1 drop Right Eye 4 Times Daily ??? bxwincio-oncimnswt-mwefsuvlbsmcl 1 Tube Right Eye Nightly ??? pantoprazole 20 mg Oral Daily ??? melatonin 3 mg Oral Nightly Continuous Infusions: PRN Meds:.ondansetron, prochlorperazine, oxyCODONE, acetaminophen Vitals: Last value Range last 24 hrs Temperature Temp: 36.7 ??C (98.1 ??F) Temp: [36.4 ??C (97.5 ??F)-37.5 ??C (99.5 ??F)] Heart Rate Heart Rate: 82 Heart Rate: [78-94] Blood Pressure BP: 123/46 BP: (106-130)/(42-92) Respiratory Rate Resp: 18 Resp: [16-20] SpO2 SpO2: 94 % SpO2: [92 %-99 %] 24h NET Ins/Outs: Intake/Output Summary (Last 24 hours) at 07/19/16 1231 Last data filed at 07/19/16 0637 Gross per 24 hour Intake 858.67 ml Output 1025 ml Net -166.33 ml Patient Vitals for the past 168 hrs: Weight 07/19/16 0636 80.5 kg (177 lb 7.5 oz) 07/15/16 0600 74.6 kg (164 lb 7.4 oz) 07/14/16 1530 76.3 kg (168 lb 3.4 oz) 07/14/16 1132 76 kg (167 lb 8.8 oz) Physical Exam: Gen: NAD Eyes: right eye with orbital and periorbital bruising, left eye with new infraorbital bruiding. + ecchymoses over left lower chin CV: RRR, Normal S1/S2, no MRG Respiratory: clear to auscultation b/l GI: Soft, NT/ ND, + BS, -HSM Skin: wrap over left thigh- hematoma visible. Not tracking to L flank. Thigh is soft to palpation. Peripheral pulses ++ on L distally. Neuro: unable to assess right eye, otherwise CNII-XII intact, 5/5 motor B/l Ext: No edema, 2+ PT pulses Labs: Reviewed & notable for: Recent Labs 07/19/16 0448 07/18/16 0809 07/17/16 0400 WBC 130.4* 137.3* 143.0* HGB 7.5* 6.9* 7.8* HCT 23.9* 21.9* 24.7* PLATELET 154 147 135* Recent Labs 07/15/16 0210 07/14/16 0844 INR 1.4* 1.1 Recent Labs 07/19/16 0448 07/17/16 0400 07/16/16 0845 NA 142 144 140 K See Note See Note See Note CL 105 112* 110* CO2 25 22 20* BUN 10 13 16 CREATININE 0.67* 0.73 0.86 ?? Radiology/Other Pertinent Studies: LE Doppler- Cannot complete due to restriction from supine position MRA neck- cannot complete due to restriction from supine position MRI, 07/14 IMPRESSION 1. Punctate focus of probable diffusion restriction within the posterior right frontal lobe may represent a small focus of acute ischemia. 2. High signal within the cortex of the right posterior cerebrum without corresponding low signal on the ADC map. This does not reflect acute ischemia and is likely artifactual. However, without the benefit of additional MRI sequences, an alternative underlying process such as seizure edema cannot be entirely excluded. ? CTPE, 07/14 FINDINGS: Pulmonary arteries: Large filling defect extending along the bifurcation of the right and left main pulmonary arteries consistent with a saddle embolus. Filling defects are seen extending into almost all visualized pulmonary artery segments, but predominantly within the basilar segments. ? Other cardiovascular structures: There is evidence of right heart strain based on the RIGHT-LEFT ventricular ratio which is >1 using the right ventricle which measures 3.9 cm to the left ventricle which measures 3.2 cm. ? Lungs and airways:? No significant findings. Pleura and pericardium: No significant findings. ? Mediastinum and hilar structures: No lymphadenopathy. ? Limited views of the upper abdomen: No significant findings. Skeletal structures: No aggressive lytic or sclerotic lesions. ? IMPRESSION Large saddle embolism with evidence of right heart strain, as above. ? CT Head, non con, 07/14 IMPRESSION No acute intracranial abnormality. Intraocular air and fluid on the right. ? TTE, 07/14 SUMMARY: ? 1. Basal septal hypertrophy is observed. There is normal global left ventricular systolic function. The quantitative left ventricular ejection fraction by biplane Schwartz's method is 58%. There are no left ventricular segmental wall motion abnormalities. There is septal flattening present consistent with right ventricular pressure overload. 2. The right ventricle is moderately dilated. Right ventricular global systolic function is probably normal. 3. The estimated pulmonary artery systolic pressure is 41 mmHg. 4. There is moderate (2+/4+) tricuspid regurgitation present. 5. See remainder of report for additional findings. ? Assessment: 66 y.o. female with PMH of CLL, DM, recent vitrectomy who presented with submassive PE and stroke, s/p tPA (given for PE) complicated by ocular bleed and thigh hematoma. Hb has stabilized now s/p several transfusions. L thigh hematoma also unchanged and without interval increase in size to suggest continued bleeding. Pain control much better. Otherwise stable from a neuro, optho and pulmonary standpoint. Will likely need continued anticoagulation likely indefinitely on discharge. Will touch base with hematology regarding transitioning to PO anticoagulation. Pt to have close follow up with opthalmolo gy and neurology, and will complete the rest of her stroke workup outpatient and start Plavis for secondary prevention when bleeding is resolved. Utility of repeating echo with bubble also considered, but given she will be anticoagulated, this would unlikely exchange engineer. Plan ?? Saddle PE s/p TPA: - Continue lovenox 80 BID - Will continue on lovenox for 3 months, then consideration of DOAC on discharge - Likely will need indefinite anticoagulation - Re-engage heme regarding discharge recommendations - Repeat TTE if more signs of hemodynamic instability ??R. CVA: - Neurologically stable, neuro checks q4h - Holding aspirin and plavix due recent bleed--restart likely outpatient when stable - Continue atorvastatin 80 - Complete MRA brain and neck when able to lie flat - Hold on repeat TTE with bubble study to eval for PFO--unlikely indicated as she is already anticoagulated ?? R eye hemorrhage s/p Vitrectomy - Daily drops (prednisolone and Vigamox 4x/d OD) - Lubricating ointment: Refresh PM 4x/d OD - d/c when exposure resolved - Per opthalmology, can lift horizontal plane restriction today, but cannot lie flat on back - Opthal appointment with Dr. Coffey 8am Left thigh hematoma - Hematoma size unchanged, pulses intact - Dc oxycodone 5mg Q4hrs prn - Start IV morphine 6-10mg Q4hrs - Continue zofran 4mg Q8hrs prn - Start compazine 10mg Q6hrs prn - Holding off CT thigh given low concern of hematoma collection CLL - stable, unlikely to be causing hyperviscosity Constipation - Continue miralax and senna, docusate ? - DVT PPx: Enoxaparin - Code Status: Partial. Patient stated that she would accept intubation, but no compression. - DOPA: Patient has named Cheyanne and Parker, her daughter and son respectively, as her joint DPOAs. She has not yet filled out paperwork and their contact info is below. Cheyanne Arianna [phone] Parker Arianna [phone] - Dispo: Pending course, pain mgm Kareen Deluca MD 07/19/2016 Internal Medicine Team Pager [phone] Attending Attestation ? Please see Dr. Deluca's note for details of the patient history of presentation and data. I have discussed, reviewed and agree with the documented History, Physical findings, Assessment and Plan of care. ? 66 y/o with CLL admitted with CVA and submassive PE treated with tPA complicated by ocular bleeding from recent vitrectomy (ophtho following) and left thigh hematoma. Acute blood loss anemia with nadirto 6.4 with baseline 12-13 - responded to tx on 07/16 but again to 6.9 07/18. ? 1. Acute blood loss anemia: Most likely related to large left thigh hematoma (has diffuse ecchymosesas well) and now equilibrating. She remains HD stable making active ongoing hemorrhage less likely. Hematoma stable on exam - no transfusion needed today. Left foot warm with palpable pulses. Left thigh wrapped with hematoma not extending beyond margins and soft. LE duplex pending though unlikely to exchange engineer unless need to consider filter if not tolerating A/C (though did have lytics as wellthus may not see a DVT) ? 2. PE s/p tPA for right heart strain: Trop 0.11 on admit, BNP 143 (prognostic markers); TTE septal flattening, mod dilated RV, PASP 41. ICU tx'd with tPA and remains on lovenox x 3 mo then oral option indefinitely as tolerates per heme. ? 3. CVA: Holding ASA, plavix with bleeding. Possible PFO and PE/CVA related but given will be on AC regardless unlikely to exchange engineer - will hold on TTE with bubble. Appreciate neuro input. ? 4. Right eye hemorrhage - appreciate ophtho input and management - appt tomorrow. Will need rehab - referrals placed today ? I have examined the patient myself and personally reviewed all studies. In addition, I certify that I am a D-H credentialed attending provider with admitting privileges and that the patient meets or has met medical necessity to require an inpatient IPI level of care meeting a minimum of two midnights or is on the CMS inpatient only procedure list (status C) due to: Submassive PE s/p tPA with acute blood loss anemia, ocular hemorrhage; referrals in place Polina Stuart OT - 07/18/2016 4:22 PM EST Occupational Therapy Note: OT order received and chart reviewed. Spoke with pt regarding social history and home set up. Full OOB evaluation deferred due to impending transfusion. Social History: Pt lives alone but will be staying with her son after d/c. 3 steps without rail to enter home. Pt bedroom on first floor. Bathroom with tubshower up full flight of stairs. Pt reports that she is independent with all ADLs at baseline and walks unassisted. 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 HENRY Child, OTR/L Pager [phone] Maria M Traore, PT - 07/18/2016 2:51 PM EST Physical Therapy Referral received. Chart reviewed. Evaluation begun. Full evaluation to follow. Christine Griffith - 07/18/2016 2:11 PM EST Nutrition Services - Initial Note Carol Keller : 1950 AGE: 66 y.o. Patient Active Problem List Diagnosis Date Noted ??? Hospital-Pulmonary embolism 07/14/2016 ??? AK (actinic keratosis) 01/30/2015 ??? History of SCC (squamous cell carcinoma) of skin 01/30/2015 ??? Macular pucker, right eye 08/19/2012 ??? Horseshoe retinal tear, right eye 08/19/2012 ??? SVT (supraventricular tachycardia) 08/29/2011 ??? Urinary incontinence, overflow 08/29/2011 ??? GERD (gastroesophageal reflux disease) 08/29/2011 ??? Diabetes mellitus 08/29/2011 ??? CLL (chronic lymphocytic leukemia) 12/20/2008 Reason for Nutrition Intervention: Patient Eating ICU Diet Order: CHO1 Appetite: Poor Food allergies: NKFA Chewing/Swallowing difficulty: None Per Patient Height: 163.8cm Weight: 74.6kg Body mass index is 27.79 kg/(m^2). Assessment: Patient seen for admission into the ICU, now on 1E. Patient reported poor intake, only consuming jello for lunch. Encouraged good PO intake. Patient agreeable to trial chocolate Glucose Boost. Will continue to monitor throughout stay. Nutrition Plan: Consider CHO2 Diet. Recommend Daily Multi Vitamins. Trial Glucose Boost. Monitor weight. Encourage good po intake. Support and encouragement provided. Nutrition services to follow weekly thru hospital course unless consulted in the interim. EDNA Farley Prior, Maximiliano Sanchez MD - 07/18/2016 10:30 AM EST Neurology Progress Note Patient Name: Carol Keller Admit Date: 07/14/2016 Attending: Dr. Perales Patient ID: Carol Keller is a 66 y.o. RIGHT handed female with PMHx of DM, SVT, CLL, s/p eye surgery on 07/11/16 (membranre peeling of internal limiting membrane and epiretinal membrane, pars plana vitrectomy), who arrives on a stroke alert on 07/14/16, found to punctate infarct in posterior RIGHT frontal lobe and saddle embolus in lungs, s/p tpa for PE Interval History: - No acute events overnight, no change in neurological exam - Patient continues to endorse left thigh pain Medications: Scheduled Meds: ??? polyethylene glycol (MIRALAX)oral powder 17 g Oral Daily ??? senna 8.6 mg Oral BID ??? docusate sodium 100 mg Oral BID ??? white petrolatum-mineral oil Both Eyes 4 Times Daily ??? enoxaparin 80 mg Subcutaneous Q12H ??? moxifloxacin 1 drop Right Eye 4 Times Daily ??? prednisoLONE acetate 1 drop Right Eye 4 Times Daily ??? uwuwzfwp-adqmzlziu-amwzocvpptjrr 1 Tube Right Eye Nightly ??? pantoprazole 20 mg Oral Daily ??? melatonin 3 mg Oral Nightly Continuous Infusions: PRN Meds:.morphine, ondansetron, acetaminophen Physical Exam: Vitals: Temp: [36.5 ??C (97.7 ??F)-36.9 ??C (98.4 ??F)] Heart Rate: [73-88] Resp: [14-20] BP: (105-122)/(43-53) SpO2: [95 %-100 %] Heart Rate from SPO2: [73 bpm-90 bpm] Gen: Patient of apparent stated age, well nourished, well developed, awake, alert, NAD Ext: No edema. No bony deformity Neuro Exam: MS: AAOx4, clear language, no dysarthria, follows commands CN: PERRL, EOMI, visual abreu full Facial sensation intact, no facial asymmetry Hearing intact to finger rub Palate elevates symmetrically, tongue protrudes midline SCM and trap strength intact Motor: Normal bulk and tone. UE: 5/5 R, 5/5 L Arm abduction at shoulder 5/5 R, 5/5 L Elbow extension 5/5 R, 5/5 L Elbow flexion 5/5 R, 5/5 L Quill Skinner LE: 5/5 R, 5/5 L Hip flexion 5/5 R, 5/5 L Knee extension 5/5 R, 5/5 L Knee flexion 5/5 R, 5/5 L Foot dorsiflexion 5/5 R, 5/5 L Foot plantar flexion Sensation: Intact to light touch and vibration throughout Reflexes: DTRs 2+ R, 2+ L Biceps 2+ R, 2+ L Brachioradialis 2+ R, 2+ L Triceps 2+ R, 2+ L Patellar 2+ R, 2+ L Achilles tendon Toes - R down, L down Coordination: Finger to nose intact, no dysmetria Labs: Recent Results (from the past 24 hour(s)) Green Tube HOLD Result Value Ref Range Green Hold Sample in lab. Lavender Tube HOLD Result Value Ref Range Lavender Hold Sample in lab. Consults, Diagnostic Tests, and Imaging: Head CT w/out: No acute abnormalities ?? MRI Brain 07/14/16: IMPRESSION 1. Punctate focus of probable diffusion restriction within the posterior right frontal lobe may represent a small focus of acute ischemia. 2. High signal within the cortex of the right posterior cerebrum without corresponding low signal on the ADC map. This does not reflect acute ischemia and is likely artifactual. However, without the benefit of additional MRI sequences, an alternative underlying process such as seizure edema cannot be entirely excluded. ?? TTE 07/14/16: SUMMARY: ? 1. Basal septal hypertrophy is observed. There is normal global left ventricular systolic function. The quantitative left ventricular ejection fraction by biplane Schwartz's method is 58%. There are no left ventricular segmental wall motion abnormalities. There is septal flattening present consistent with right ventricular pressure overload. 2. The right ventricle is moderately dilated. Right ventricular global systolic function is probably normal. 3. The estimated pulmonary artery systolic pressure is 41 mmHg. 4. There is moderate (2+/4+) tricuspid regurgitation present. 5. See remainder of report for additional findings. ? Assessment and Plan: Carol Keller is a 66 y.o. RIGHT handed female with PMHx of DM, SVT, CLL, s/p eye surgery on 07/11/16 (membranre peeling of internal limiting membrane and epiretinal membrane, pars plana vitrectomy), who arrives on a stroke alert for arrives with LEFT facial and LEFT hand numbness, LEFT facial droop (now resolved), LEFT UE weakness (resolved), and LEFT UE dysmetria. CTH was negative for acute findings. Due patient's resolving symptoms and minor deficits there was no indication for tpa. However,her large PE found on imaging and subjective SOB with desats to 80% warranted tpa for PE. This was successfully given without serious complications. Patient is stable and doing well. MRI does show small infarct in RIGHT posterior frontal. Unclear on etiology of infarct but given her CLL and extent of leukocytosis in the context of PE, venous infarction/venous statis (hyperviscosity syndrome) vs atheroembolism. When patient is stable, patient should obtain MRA head and neck and MRV. ? # Recommdations -Neuro check & vitals Q 4hrs / Q4hrs -Permissive HTN, treat SBP >220 with prn labetalol, enalaprilat -plavix (DC'ed per heme recs), no need for aspirin or plavix while on full dose anticoagulation -Statin -IVF -TTECOMPLETED -12 lead EKG -Telemetry -MRI brain wo contrast -COMPLETED -MRA head wo contrast, neck w/wo contrast - MRV -r CTA Chest to r/o PE or dissection-COMPLETED -PT/OT/CORPORATE EVENT PLANNER -Heparin gg -RBOs -SCDs ?? Maximiliano Rico MD PGY-2 Neurology Pager [phone] Associated attestation - Brittnee Granados MD - 07/19/2016 4:33 PM EST Neurology Attending Attestation I evaluated the patient with the Neurology Residents during bedside rounds. I have reviewed the medical records and patient's history, as well as the resident???s and student's history and examination findings and I agree with the details as written. My neurologic examination confirms the resident???sfindings. We formulated the assessment and plan after a detailed discussion, as documented. Brittnee Granados MD [facility] - 07/18/2016 6:51 AM EST Inpatient Medicine Progress Note Hospital Day 4 days Active Hospital Problems Diagnosis ??? Pulmonary embolism Resolved Hospital Problems Diagnosis Date Resolved No resolved problems to display. ID: Carol Keller is a 66 y.o. female with PMH of CLL, diet controlled diabetes, recent vitrectomy who presented with submassive PE and stroke, s/p tPA (given for PE) complicated by ocular bleed and thigh hematoma. 24 Hour Interval Events / Subjective: - Hb stable yest, deferred CT L thigh to eval for hematoma collection - No acute events overnight. Tramadol 25mg x2 and oxycodone 5mg x1 given for L thigh pain - This am, still c/o of significant L thigh pain. Denies CAI/focal weaknesses/ numbness/ tingling. NoSOB, CP. ROS: Denies CP, SOB, N/V/D, dizziness or lightheadedness Inpatient Medications: Reviewed in MAR, notable for: Scheduled Meds: ??? polyethylene glycol (MIRALAX)oral powder 17 g Oral Daily ??? senna 8.6 mg Oral BID ??? docusate sodium 100 mg Oral BID ??? white petrolatum-mineral oil Both Eyes 4 Times Daily ??? enoxaparin 80 mg Subcutaneous Q12H ??? moxifloxacin 1 drop Right Eye 4 Times Daily ??? prednisoLONE acetate 1 drop Right Eye 4 Times Daily ??? dossipfs-ohhliqcaq-onjtcxmjaxpxt 1 Tube Right Eye Nightly ??? pantoprazole 20 mg Oral Daily ??? melatonin 3 mg Oral Nightly Continuous Infusions: PRN Meds:.ondansetron, acetaminophen, oxyCODONE Vitals: Last value Range last 24 hrs Temperature Temp: 36.7 ??C (98.1 ??F) Temp: [36.5 ??C (97.7 ??F)-36.9 ??C (98.4 ??F)] Heart Rate Heart Rate: 73 Heart Rate: [73-88] Blood Pressure BP: 122/44 BP: (109-125)/(44-63) Respiratory Rate Resp: 18 Resp: [14-20] SpO2 SpO2: 95 % SpO2: [95 %-100 %] 24h NET Ins/Outs: Intake/Output Summary (Last 24 hours) at 07/18/16 0651 Last data filed at 07/18/16 0427 Gross per 24 hour Intake 1040 ml Output 1605 ml Net -565 ml Patient Vitals for the past 168 hrs: Weight 07/15/16 0600 74.6 kg (164 lb 7.4 oz) 07/14/16 1530 76.3 kg (168 lb 3.4 oz) 07/14/16 1132 76 kg (167 lb 8.8 oz) Physical Exam: Gen: NAD Eyes: right eye with orbital and periorbital bruising, left eye with new infraorbital bruiding. + ecchymoses over left lower chin CV: RRR, Normal S1/S2, no MRG Respiratory: clear to auscultation b/l GI: Soft, NT/ ND, + BS, -HSM Skin: wrap over left thigh- hematoma visible. Not tracking to L flank. Thigh is soft to palpation. Peripheral pulses ++ on L distally. Neuro: unable to assess right eye, otherwise CNII-XII intact, 5/5 motor B/l Ext: No edema, 2+ PT pulses Labs: Reviewed & notable for: Recent Labs 07/17/16 0400 07/16/16 1440 07/16/16 0845 WBC 143.0* 131.9* 152.0* HGB 7.8* 8.4* 6.4* HCT 24.7* 26.2* 21.6* PLATELET 135* 124* 140* Recent Labs 07/15/16 0210 07/14/16 0844 INR 1.4* 1.1 Recent Labs 07/17/16 0400 07/16/16 0845 07/15/16 1310 07/15/16 0210 NA 144 140 -- -- 142 K See Note See Note 4.0 < > 3.6 CL 112* 110* -- -- 109* CO2 22 20* -- -- 20* BUN 13 16 -- -- 16 CREATININE 0.73 0.86 -- -- 0.87 < > = values in this interval not displayed. ?? Radiology/Other Pertinent Studies: LE Doppler- pending MRI, 07/14 IMPRESSION 1. Punctate focus of probable diffusion restriction within the posterior right frontal lobe may represent a small focus of acute ischemia. 2. High signal within the cortex of the right posterior cerebrum without corresponding low signal on the ADC map. This does not reflect acute ischemia and is likely artifactual. However, without the benefit of additional MRI sequences, an alternative underlying process such as seizure edema cannot be entirely excluded. ? CTPE, 07/14 FINDINGS: Pulmonary arteries: Large filling defect extending along the bifurcation of the right and left main pulmonary arteries consistent with a saddle embolus. Filling defects are seen extending into almost all visualized pulmonary artery segments, but predominantly within the basilar segments. ? Other cardiovascular structures: There is evidence of right heart strain based on the RIGHT-LEFT ventricular ratio which is >1 using the right ventricle which measures 3.9 cm to the left ventricle which measures 3.2 cm. ? Lungs and airways:? No significant findings. Pleura and pericardium: No significant findings. ? Mediastinum and hilar structures: No lymphadenopathy. ? Limited views of the upper abdomen: No significant findings. Skeletal structures: No aggressive lytic or sclerotic lesions. ? IMPRESSION Large saddle embolism with evidence of right heart strain, as above. ? CT Head, non con, 07/14 IMPRESSION No acute intracranial abnormality. Intraocular air and fluid on the right. ? TTE, 07/14 SUMMARY: ? 1. Basal septal hypertrophy is observed. There is normal global left ventricular systolic function. The quantitative left ventricular ejection fraction by biplane Schwartz's method is 58%. There are no left ventricular segmental wall motion abnormalities. There is septal flattening present consistent with right ventricular pressure overload. 2. The right ventricle is moderately dilated. Right ventricular global systolic function is probably normal. 3. The estimated pulmonary artery systolic pressure is 41 mmHg. 4. There is moderate (2+/4+) tricuspid regurgitation present. 5. See remainder of report for additional findings. ? Assessment: 66 y.o. female with PMH of CLL, DM, recent vitrectomy who presented with submassive PE and stroke, s/p tPA (given for PE) complicated by ocular bleed and thigh hematoma. Hb has stabilized over the weekend, now downtrending. Will transfuse as needed and monitor response. Low index of suspicion of L thigh hematoma. Continue symptomatic pain management. Otherwise stable from a neuro, optho and pulmonarystandpoint. Will likely need continued anticoagulation likely indefinitely on discharge. Plan ?? Saddle PE s/p TPA: - Continue lovenox 80 BID - Will continue on lovenox for 3 months, then consideration of DOAC on discharge - Likely will need indefinite anticoagulation - Repeat TTE if more signs of hemodynamic instability - Q4h vitals check at this point ??R. CVA: - neurologically stable, neuro checks q4h - Holding aspirin and plavix due recent bleed--restart when stable - Continue atorvastatin 80 - Complete MRA brain and neck when able to lie flat - Hold on repeat TTE with bubble study to eval for PFO--unlikely indicated as she is already anticoagulated ?? R eye hemorrhage s/p Vitrectomy - Daily drops (prednisolone and Vigamox 4x/d OD) - Lubricating ointment: Refresh PM 4x/d OD - d/c when exposure resolved - Per opthalmology, can lift horizontal plane restriction today, but cannot lie flat on back - Keep post-up visit as planned with Dr. Coffey Monday next week. Left thigh hematoma - Hematoma size unchanged, pulses intact - 1u RBC transfusion this AM - Dc oxycodone 5mg Q4hrs prn - Start IV morphine 6-10mg Q4hrs - Continue zofran 4mg Q8hrs prn - Start compazine 10mg Q6hrs prn - Holding off CT thigh for now CLL - stable, unlikely to be causing hyperviscosity Constipation - Continue miralax and senna, docusate ? - DVT PPx: Enoxaparin - Code Status: Partial. Patient stated that she would accept intubation, but no compression. - DOPA: Patient has named Cheyanne and Parker, her daughter and son respectively, as her joint DPOAs. She has not yet filled out paperwork and their contact info is below. Cheyanne Keller [phone] Parker Keller [phone] - Dispo: Pending course, pain mgm Kareen Deluca MD 07/18/2016 Internal Medicine Team Pager [phone] Attending Attestation ? Please see Dr. Deluca's note for details of the patient history of presentation and data. I have discussed, reviewed and agree with the documented History, Physical findings, Assessment and Plan of care. ? 66 y/o with CLL admitted with CVA and submassive PE treated with tPA complicated by ocular bleeding from recent vitrectomy (ophtho following) and left thigh hematoma. Acute blood loss anemia with nadirto 6.4 with baseline 12-13 - responded to tx on 07/16 but again to 6.9 today. ? 1. Acute blood loss anemia: Most likely related to large left thigh hematoma (has diffuse ecchymosesas well) and now equilibrating. She remains HD stable making active ongoing hemorrhage less likely but need to follow transfusion response closely as she remains on full dose AC. Left foot warm with palpable pulses. Left thigh wrapped with hematoma not extending beyond margins and soft. Low threshold to image left thigh if not responding to transfusion or HD changes (or IR for embolization if concernof active bleeding). LE duplex pending though unlikely to exchange engineer unless need to consider filter if not tolerating A/C (though did have lytics as well thus may not see a DVT) ? 2. PE s/p tPA for right heart strain: Trop 0.11 on admit, BNP 143 (prognostic markers); TTE septal flattening, mod dilated RV, PASP 41. ICU tx'd with tPA and remains on lovenox x 3 mo then oral option indefinitely as tolerates per heme. ? 3. CVA: Holding ASA, plavix with bleeding. Possible PFO and PE/CVA related but given will be on AC regardless unlikely to exchange engineer - will hold on TTE with bubble. Appreciate neuro input. ?? 4. Right eye hemorrhage - appreciate ophtho input and management Close monitoring of H/H, work with PT - dispo pending stable H/H without signs of bleeding and PT progress ? I have examined the patient myself and personally reviewed all studies. In addition, I certify that I am a D-H credentialed attending provider with admitting privileges and that the patient meets or has met medical necessity to require an inpatient IPI level of care meeting a minimum of two midnights or is on the [facility] inpatient only procedure list (status C) due to: Submassive PE s/p tPA with acute blood loss anemia, ocular hemorrhage ?? Lizeth Campbell MD - 07/17/2016 8:00 AM EST Inpatient Medicine Progress Note Hospital Day 3 days Active Hospital Problems Diagnosis ??? Pulmonary embolism Resolved Hospital Problems Diagnosis Date Resolved No resolved problems to display. ID: Carol Keller is a 66 y.o. female with PMH of CLL, diet controlled diabetes, recent vitrectomy who presented with submassive PE and stroke, s/p tPA (given for PE) complicated by ocular bleed and thigh hematoma. 24 Hour Interval Events / Subjective: - No acute events overnight - No bowel movements since last Monday, passing flatus - Continued discomfort in left thigh, but does not notice increase in swelling - No dizziness, lightheadedness, fevers, chills - Denies CAI/focal weaknesses/ numbness/ tingling. No SOB, CP. ROS: Denies CP, SOB, N/V/D, dizziness or lightheadedness Inpatient Medications: Reviewed in JUL, notable for: Scheduled Meds: ??? senna 8.6 mg Oral BID ??? docusate sodium 100 mg Oral BID ??? white petrolatum-mineral oil Both Eyes 4 Times Daily ??? enoxaparin 80 mg Subcutaneous Q12H ??? moxifloxacin 1 drop Right Eye 4 Times Daily ??? prednisoLONE acetate 1 drop Right Eye 4 Times Daily ??? hfhwnwuw-zjmndvnlp-mdaddeajirexg 1 Tube Right Eye Nightly ??? pantoprazole 20 mg Oral Daily ??? melatonin 3 mg Oral Nightly Continuous Infusions: PRN Meds:.acetaminophen, ondansetron, oxyCODONE Vitals: Last value Range last 24 hrs Temperature Temp: 36.3 ??C (97.3 ??F) Temp: [36.3 ??C (97.3 ??F)-37.3 ??C (99.1 ??F)] Heart Rate Heart Rate: 81 Heart Rate: [78-97] Blood Pressure BP: 113/42 BP: (95-124)/(41-62) Respiratory Rate Resp: 13 Resp: [11-22] SpO2 SpO2: 94 % SpO2: [94 %-100 %] 24h NET Ins/Outs: Intake/Output Summary (Last 24 hours) at 07/17/16 0800 Last data filed at 07/17/16 0400 Gross per 24 hour Intake 2232 ml Output 2055 ml Net 177 ml Patient Vitals for the past 168 hrs: Weight 07/15/16 0600 74.6 kg (164 lb 7.4 oz) 07/14/16 1530 76.3 kg (168 lb 3.4 oz) 07/14/16 1132 76 kg (167 lb 8.8 oz) Physical Exam: Gen: elderly, laying on left side, NAD Eyes: right eye with orbital and periorbital bruising, left eye normal with normal ROM CV: RRR, Normal S1/S2, -m/r/g appreciated Respiratory: Good Aeration, CTAB GI: Soft, NT/ ND, + BS, -HSM Skin: wrap over left thigh- hematoma visible. Not tracking to L flank. Thigh is soft to palpation. Neuro: unable to assess right eye, otherwise CNII-XII intact, 5/5 motor B/l Ext: No edema, 2+ PT pulses Labs: Reviewed & notable for: Recent Labs 07/17/16 0400 07/16/16 1440 07/16/16 0845 WBC 143.0* 131.9* 152.0* HGB 7.8* 8.4* 6.4* HCT 24.7* 26.2* 21.6* PLATELET 135* 124* 140* Recent Labs 07/15/16 0210 07/14/16 0844 INR 1.4* 1.1 Recent Labs 07/17/16 0400 07/16/16 0845 07/15/16 1310 07/15/16 0210 NA 144 140 -- -- 142 K See Note See Note 4.0 < > 3.6 CL 112* 110* -- -- 109* CO2 22 20* -- -- 20* BUN 13 16 -- -- 16 CREATININE 0.73 0.86 -- -- 0.87 < > = values in this interval not displayed. ?? Radiology/Other Pertinent Studies: LE Doppler- pending MRI, 07/14 IMPRESSION 1. Punctate focus of probable diffusion restriction within the posterior right frontal lobe may represent a small focus of acute ischemia. 2. High signal within the cortex of the right posterior cerebrum without corresponding low signal on the ADC map. This does not reflect acute ischemia and is likely artifactual. However, without the benefit of additional MRI sequences, an alternative underlying process such as seizure edema cannot be entirely excluded. ? CTPE, 07/14 FINDINGS: Pulmonary arteries: Large filling defect extending along the bifurcation of the right and left main pulmonary arteries consistent with a saddle embolus. Filling defects are seen extending into almost all visualized pulmonary artery segments, but predominantly within the basilar segments. ? Other cardiovascular structures: There is evidence of right heart strain based on the RIGHT-LEFT ventricular ratio which is >1 using the right ventricle which measures 3.9 cm to the left ventricle which measures 3.2 cm. ? Lungs and airways:? No significant findings. Pleura and pericardium: No significant findings. ? Mediastinum and hilar structures: No lymphadenopathy. ? Limited views of the upper abdomen: No significant findings. Skeletal structures: No aggressive lytic or sclerotic lesions. ? IMPRESSION Large saddle embolism with evidence of right heart strain, as above. ? CT Head, non con, 07/14 IMPRESSION No acute intracranial abnormality. Intraocular air and fluid on the right. ? TTE, 07/14 SUMMARY: ? 1. Basal septal hypertrophy is observed. There is normal global left ventricular systolic function. The quantitative left ventricular ejection fraction by biplane Schwartz's method is 58%. There are no left ventricular segmental wall motion abnormalities. There is septal flattening present consistent with right ventricular pressure overload. 2. The right ventricle is moderately dilated. Right ventricular global systolic function is probably normal. 3. The estimated pulmonary artery systolic pressure is 41 mmHg. 4. There is moderate (2+/4+) tricuspid regurgitation present. 5. See remainder of report for additional findings. ? Assessment: 66 y.o. female with PMH of CLL, DM, recent vitrectomy who presented with submassive PE and stroke, s/p tPA (given for PE) complicated by ocular bleed and thigh hematoma. Hemoglobin stabilized overnightand thigh hematoma appears stable, less concern for ongoing bleed, but low threshold to CT L thigh if hemoglobin drops more rapidly. Otherwise stable from a neuro, optho and pulmonary standpoint. Will transfer to floor and attempt to mobilize today as tolerated by vitals. Plan ?? Saddle PE s/p TPA: - continue lovenox 80 BID - Will continue on lovenox for 3 months, then consideration of DOAC on discharge - Likely will need indefinite anticoagulation - repeat TTE if more signs of hemodynamic instability - q4h vitals check at this point - Can mobilize and assess for orthostatic instability today ??R. CVA: - neurologically stable neuro checks q4h - Holding aspirin and plavix due to ongoing bleeding - Continue atorvastatin 80 - Pt not stable for MRA currently, will continue to readdress ?? R eye hemorrhage s/p Vitrectomy - daily drops (prednisolone and Vigamox 4x/d OD) - lubricating ointment: Refresh PM 4x/d OD - d/c when exposure resolved - Continue positioning - eyes looking down; do not look above horizontal plane. - will discuss timeline of this restriction with optho Keep post-up visit as planned with Dr. Coffey Monday next week. CLL - stable, unlikely to be causing hyperviscosity Constipation - Will add miralax to regimen - Continue senna, docusate ? - DVT PPx: Enoxaparin - Code Status: Partial. Patient stated that she would accept intubation, but no compression. - DOPA: Patient has named Cheyanne and Parker, her daughter and son respectively, as her joint DPOAs. She has not yet filled out paperwork and their contact info is below. Cheyanne Arianna [phone] Parker Arianna [phone] - Dispo: Pending course ROZ COWART MD 07/17/2016 Internal Medicine Team Pager [phone] Attending Attestation ?? Please see Dr. Cowart's note for details of the patient history of presentation and data. I have discussed, reviewed and agree with the documented History, Physical findings, Assessment and Plan of care. ?? 66 y/o with CLL admitted with CVA and submassive PE treated with tPA complicated by ocular bleeding from recent vitrectomy (ophtho following) and left thigh hematoma. Acute blood loss anemia with nadirto 6.4 today with baseline 12-13 - responded to tx on 07/16. ?? 1. Acute blood loss anemia: Most likely related to large left thigh hematoma and now equilibrating. She is HD stable making active ongoing hemorrhage less likely. Left foot warm with palpable pulses. Left foot with ecchymosis. Left thigh wrapped with hematoma not extending beyond margins. Transfused 2U 07/16 with appropriate response. Low threshold to image left thigh if not responding to transfusion or HD changes (in part for current size to assess if expanding if drops Hgb again). LE duplex pending. ?? 2. PE s/p tPA for right heart strain: Trop 0.11 on admit, BNP 143 (prognostic markers); TTE septal flattening, mod dilated RV, PASP 41. ICU tx'd with tPA and remains on lovenox x 3 mo then oral option indefinitely as tolerates per heme. ?? 3. CVA: Holding ASA, plavix with bleeding. Possible PFO and PE/CVA related but given will be on AC regardless unlikely to exchange engineer - will hold on TTE with bubble. Appreciate neuro input. 4. Right eye hemorrhage - appreciate ophtho input and management Transfer to floor ?? I have examined the patient myself and personally reviewed all studies. In addition, I certify that I am a D-H credentialed attending provider with admitting privileges and that the patient meets or has met medical necessity to require an inpatient IPI level of care meeting a minimum of two midnights or is on the [facility] inpatient only procedure list (status C) due to: Submassive PE s/p tPA with acute blood loss anemia, ocular hemorrhage ?? Lizeth Campbell MD - 07/16/2016 7:10 AM EST Inpatient Medicine Progress Note Hospital Day 2 days Active Hospital Problems Diagnosis ??? Pulmonary embolism Resolved Hospital Problems Diagnosis Date Resolved No resolved problems to display. ID: Carol Keller is a 66 y.o. female with PMH of CLL, diet controlled diabetes, recent vitrectomy who presented with submassive PE and stroke, s/p tPA (given for PE) complicated by ocular bleed and thigh hematoma. 24 Hour Interval Events / Subjective: - Tranfsered from ICU to medicine yesterday - Continued SC lovenox for PE, holding ASA and plavix for R CVA given opthal bleed - Opthal following, acute indications for intervention despite downtrending Hb - Per Heme, will need 3mo lovenox, then indefinite anticoagulation. Recs for b/l LE doppler -Overnight, VSS, no acute events - Doing well this am, no new CAI/focal weaknesses/ numbness/ tingling. No SOB, CP. ROS: Denies CP, SOB, N/V/D, dizziness or lightheadedness Inpatient Medications: Reviewed in JUL, notable for: Scheduled Meds: ??? senna 8.6 mg Oral BID ??? docusate sodium 100 mg Oral BID ??? white petrolatum-mineral oil Both Eyes 4 Times Daily ??? enoxaparin 80 mg Subcutaneous Q12H ??? moxifloxacin 1 drop Right Eye 4 Times Daily ??? prednisoLONE acetate 1 drop Right Eye 4 Times Daily ??? wnutkgwa-owebqprmf-axqhftmxypiae 1 Tube Right Eye Nightly ??? pantoprazole 20 mg Oral Daily ??? melatonin 3 mg Oral Nightly Continuous Infusions: ??? sodium chloride 0.9% 100 mL/hr (07/16/16 1048) PRN Meds:.acetaminophen, ondansetron, oxyCODONE Vitals: Last value Range last 24 hrs Temperature Temp: 37 ??C (98.6 ??F) Temp: [36.5 ??C (97.7 ??F)-37.1 ??C (98.8 ??F)] Heart Rate Heart Rate: 85 Heart Rate: [78-102] Blood Pressure BP: 102/50 BP: (90-128)/(42-83) Respiratory Rate Resp: 14 Resp: [11-27] SpO2 SpO2: 98 % SpO2: [94 %-100 %] 24h NET Ins/Outs: Intake/Output Summary (Last 24 hours) at 07/16/16 1355 Last data filed at 07/16/16 1345 Gross per 24 hour Intake 3158 ml Output 840 ml Net 2318 ml Patient Vitals for the past 168 hrs: Weight 07/15/16 0600 74.6 kg (164 lb 7.4 oz) 07/14/16 1530 76.3 kg (168 lb 3.4 oz) 07/14/16 1132 76 kg (167 lb 8.8 oz) Physical Exam: Gen: elderly, laying on left side, NAD Eyes: right eye with orbital and periorbital bruising, left eye normal with normal ROM CV: RRR, Normal S1/S2, -m/r/g appreciated Respiratory: Good Aeration, CTAB GI: Soft, NT/ ND, + BS, -HSM Skin: wrap over left thigh- hematoma visible. Not tracking to L flank Neuro: unable to assess right eye, otherwise CNII-XII intact, 5/5 motor B/l Ext: No edema, 2+ PT pulses Labs: Reviewed & notable for: Recent Labs 07/16/16 0845 07/15/16 1410 07/15/16 0210 WBC 152.0* 152.5* 163.2* HGB 6.4* 8.4* 10.1* HCT 21.6* 27.6* 33.3* PLATELET 140* 135* 134* Recent Labs 07/15/16 0210 07/14/16 0844 INR 1.4* 1.1 Recent Labs 07/16/16 0845 07/15/16 1310 07/15/16 0920 07/15/16 0210 07/14/16 0844 NA 140 -- -- 142 140 K See Note 4.0 4.1 3.6 See Note CL 110* -- -- 109* 103 CO2 20* -- -- 20* 21* BUN 16 -- -- 16 22* CREATININE 0.86 -- -- 0.87 0.99 ?? Radiology/Other Pertinent Studies: LE Doppler- pending MRI, 07/14 IMPRESSION 1. Punctate focus of probable diffusion restriction within the posterior right frontal lobe may represent a small focus of acute ischemia. 2. High signal within the cortex of the right posterior cerebrum without corresponding low signal on the ADC map. This does not reflect acute ischemia and is likely artifactual. However, without the benefit of additional MRI sequences, an alternative underlying process such as seizure edema cannot be entirely excluded. ? CTPE, 07/14 FINDINGS: Pulmonary arteries: Large filling defect extending along the bifurcation of the right and left main pulmonary arteries consistent with a saddle embolus. Filling defects are seen extending into almost all visualized pulmonary artery segments, but predominantly within the basilar segments. ? Other cardiovascular structures: There is evidence of right heart strain based on the RIGHT-LEFT ventricular ratio which is >1 using the right ventricle which measures 3.9 cm to the left ventricle which measures 3.2 cm. ? Lungs and airways:? No significant findings. Pleura and pericardium: No significant findings. ? Mediastinum and hilar structures: No lymphadenopathy. ? Limited views of the upper abdomen: No significant findings. Skeletal structures: No aggressive lytic or sclerotic lesions. ? IMPRESSION Large saddle embolism with evidence of right heart strain, as above. ? CT Head, non con, 07/14 IMPRESSION No acute intracranial abnormality. Intraocular air and fluid on the right. ? TTE, 07/14 SUMMARY: ? 1. Basal septal hypertrophy is observed. There is normal global left ventricular systolic function. The quantitative left ventricular ejection fraction by biplane Schwartz's method is 58%. There are no left ventricular segmental wall motion abnormalities. There is septal flattening present consistent with right ventricular pressure overload. 2. The right ventricle is moderately dilated. Right ventricular global systolic function is probably normal. 3. The estimated pulmonary artery systolic pressure is 41 mmHg. 4. There is moderate (2+/4+) tricuspid regurgitation present. 5. See remainder of report for additional findings. ? Assessment: 66 y.o. female with PMH of CLL, DM, recent vitrectomy who presented with submassive PE and stroke, s/p tPA (given for PE) complicated by ocular bleed and thigh hematoma. Main concern right now is for ongoing bleeding given dropping BP and Hgb. Has dropped 4 units in 24hrs and continues with soft BPs. Source of bleeding unlikely localized to R eye, possible that this is L thigh collection. Also possible that we now starting to catch up to the TPA. Will transfuse 2u today and recheck Hb for response. Low threshold to CT L thigh if counts still dropping. Will also need to revisit anticoagulation options should she continue to bleed. Currently stable from neurological and opthalmology standpoint. Plan ?? Saddle PE s/p TPA: - continue lovenox 80 BID - Will continue on lovenox for 3 months, then consideration of DOAC on discharge - Likely will need indefinite anticoagulation - repeat TTE if more signs of hemodynamic instability - q4h vitals check at this point ??R. CVA: - neurologically stable neuro checks q4h - Holding aspirin and plavix due to ongoing bleeding - Continue atorvastatin 80 - Pt not stable for MRA currently, will continue to readdress ?? R eye hemorrhage s/p Vitrectomy - daily drops (prednisolone and Vigamox 4x/d OD) - lubricating ointment: Refresh PM 4x/d OD - d/c when exposure resolved - Continue positioning - eyes looking down; do not look above horizontal plane. Keep post-up visit as planned with Dr. Coffey Monday next week. CLL - stable, unlikely to be causing hyperviscosity ? - DVT PPx: Enoxaparin - Code Status: Partial. Patient stated that she would accept intubation, but no compression. - DOPA: Patient has named Cheyanne and Parker, her daughter and son respectively, as her joint DPOAs. She has not yet filled out paperwork and their contact info is below. Cheyanne Arianna [phone] Parker Arianna [phone] - Dispo: Pending course Kareen Deluca MD 07/16/2016 Internal Medicine Team Pager [phone] Attending Attestation Please see Dr. Deluca's note for details of the patient history of presentation and data. I have discussed, reviewed and agree with the documented History, Physical findings, Assessment and Plan of care. 66 y/o with CLL admitted with CVA and submassive PE treated with tPA complicated by ocular bleeding from recent vitrectomy (ophtho following) and left thigh hematoma. Acute blood loss anemia with Hgb to 6.4 today with baseline 12-13. She remains HD stable. No evidence of melena (per pt or nursing). Noabdominal or flank pain. Left thigh feels tight. No numbness or tingling in left foot. Left arm feels a little off but weakness improved. 1. Acute blood loss anemia: I suspect this is related to large left thigh hematoma and now equilibrating. She is HD stable making active ongoign hemorrhage less likely. Left foot warm with palpable pulses. Left foot with ecchymosis. Left thigh wrapped with hematoma not extending beyond margins. Transfusing 2U and monitoring response. Low threshold to image left thigh if not responding to transfusion or HD changes (in part for current size to assess if expanding if drops Hgb again). Engage surgery ifany concern for ongoing thigh bleeding as she remains on therapeutic lovenox. LE duplex pending. 2. PE s/p tPA for right heart strain: Trop 0.11 on admit, BNP 143 (prognostic markers); TTE septal flattening, mod dilated RV, PASP 41. ICU tx'd with tPA and remains on lovenox x 3 mo then oral option indefinitely as tolerates per heme. 3. CVA: Holding ASA, plavix with bleeding. Possible PFO and PE/CVA related but given will be on AC regardless unlikely to exchange engineer - will hold on TTE with bubble. Appreciate neuro input. Remains in ISCU for close monitoring with acute blood loss anemia s/p recent tPA, vitreal hemorrhage, and ongoing A/C. I have examined the patient myself and personally reviewed all studies. In addition, I certify that I am a [facility] credentialed attending provider with admitting privileges and that the patient meets or has met medical necessity to require an inpatient IPI level of care meeting a minimum of two midnights or is on the CMS inpatient only procedure list (status C) due to: Submassive PE s/p tPA with acute blood loss anemia, ocular hemorrhage Anoop Palafox MD - 07/16/2016 6:30 AM EST Neurology Progress Note Patient name: Carol Keller Date of : 1950 PCP: Berkley Madrigal MD IDI: Carol Keller is a 66 y.o. RIGHT handed female with PMHx of DM, SVT, CLL, s/p eye surgery on 07/11/16 (membranre peeling of internal limiting membrane and epiretinal membrane, pars plana vitrectomy), who arrives on a stroke alert on 07/14/16, found to punctate infarct in posterior RIGHT frontal lobe and saddle embolus in lungs, s/p tpa for PE Interval Events: -per heme recs, aspirin and plavix discontinued -no acute events overnight -this am notes she still has been having low blood pressures Current Medications: No current facility-administered medications on file prior to encounter. Current Outpatient Prescriptions on File Prior to Encounter Medication Sig Dispense Refill ??? moxifloxacin (VIGAMOX) 0.5 % Drops Place 1 drop into the right eye 4 times daily. ??? prednisoLONE acetate (PRED FORTE) 1 % Drops, Suspension Place 1 drop into the right eye 4 times daily. ??? ifhnoyhm-igkgdbvqy-pvimdjwpjzwtq (DEXACINE) 3.5 mg/g-10,000 unit/g-0.1 % Ointment Place 1 Tube into the right eye nightly as needed. ??? estradiol (ESTRACE) 0.5 mg Tablet Take 0.5 mg by mouth daily. Indications: estrogen replacement ??? aspirin 81 mg Tablet, Delayed Release (E.C.) Take 81 mg by mouth daily. ??? melatonin 3 mg Tab Take 3 mg by mouth nightly as needed. ??? imipramine (TOFRANIL) 10 mg tablet Take 10 mg by mouth 2 times daily. ??? multivitamin capsule Take 1 capsule by mouth daily. ??? Cholecalciferol, Vitamin D3, (VITAMIN D) 2,000 unit Cap Take 2,000 mg by mouth. ??? omeprazole (PRILOSEC) 20 mg capsule ??? cycloSPORINE (RESTASIS) 0.05 % ophthalmic emulsion ??? Green Tea Extract 500 mg Cap Take 500 mg by mouth daily. ??? Glucosamine Sulfate 500 mg Tab Physical Exam: Vitals: Temp: [36.6 ??C (97.9 ??F)-37.1 ??C (98.8 ??F)] Heart Rate: [71-102] Resp: [12-27] BP: (67-128)/(37-83) SpO2: [94 %-100 %] Heart Rate from SPO2: [73 bpm-101 bpm] Gen: Patient of apparent stated age, well nourished, well developed, awake, alert, NAD, notable periorbital swelling and erythema on RIGHT from surgery. Patient arrived prone Neuro Exam: MS: AAOx4, clear language, no dysarthria, follows commands CN: PERRL, EOMI Facial sensation intact, no facial asymmetry Hearing intact to finger rub Palate elevates symmetrically, tongue protrudes midline SCM and trap strength intact Motor: Normal bulk and tone. UE: 5/5 R, 5/5 L Arm abduction at shoulder 5/5 R, 5/5 L Elbow extension 5/5 R, 5/5 L Elbow flexion 5/5 R, 5/5 L Quill Skinner LE: 5/5 R, 5/5 L Hip flexion 5/5 R, 5/5 L Knee extension 5/5 R, 5/5 L Knee flexion 5/5 R, 5/5 L Foot dorsiflexion 5/5 R, 5/5 L Foot plantar flexion Sensation: Intact to light touch throughout Reflexes: DTRs 2+ R, 2+ L Biceps 2+ R, 2+ L Brachioradialis 2+ R, 2+ L Patellar Coordination: Finger to nose intact, very subtle left dysmetria (improved) No tremor Gait: Not assessed Labs: Recent Results (from the past 24 hour(s)) Potassium Result Value Ref Range Potassium 4.1 3.5 - 5.0 mmol/L APTT Result Value Ref Range PTT 122 (H) 25 - 35 sec Viscosity Result Value Ref Range Viscosity 1.1 1.0 - 1.7 cP Potassium Result Value Ref Range Potassium 4.0 3.5 - 5.0 mmol/L Hemogram Result Value Ref Range WBC 152.5 (CRIT) 4.0 - 9.5 x10(3)/mcL RBC 2.86 (L) 4.00 - 5.21 x10(6)/mcL Hemoglobin 8.4 (L) 11.7 - 15.5 gm/dL Hematocrit 27.6 (L) 35.7 - 45.8 % MCV 96.5 (H) 82.6 - 94.4 fL MCH 29.4 27.1 - 32.0 pg MCHC 30.4 (L) 31.7 - 35.0 gm/dL Platelets 135 (L) 145 - 357 x10(3)/mcL RDWSD 49.5 (H) 37.0 - 46.0 fL RDWCV 14.6 (H) 11.5 - 14.1 % MPV 11.1 7.6 - 12.9 fL nRBC % Auto 0.0 % nRBC Abs Auto 0.000 0.000 - 0.000 x10(3)/mcL Differential, Automated Result Value Ref Range Neutrophils % 7.8 % Neutr Abs (ANC) 11.93 (H) 1.70 - 6.10 x10(3)/mcL Lymphocytes % 90.9 % Lymphocytes Abs 138.7 (H) 0.9 - 3.2 x10(3)/mcL Monocytes % 0.7 % Monocyte Abs 1.1 (H) 0.3 - 0.9 x10(3)/mcL Eosinophils % 0.0 % Eosinophils Abs 0.0 0.0 - 0.4 x10(3)/mcL Basophils % 0.1 % Basophils Abs 0.1 0.0 - 0.1 x10(3)/mcL Immature Gran % 0.50 % Claudia Gran Abs 0.71 (H) 0.00 - 0.04 x10(3)/mcL Scan, Peripheral Blood Result Value Ref Range Plat Estimate Decreased RBC Morphology Normal Fibrinogen Result Value Ref Range Fibrinogen 162 (L) 180 - 510 mg/dL Fibrinogen Result Value Ref Range Fibrinogen 196 180 - 510 mg/dL Diagnostic Tests and Imaging: Head CT w/out: No acute abnormalities MRI Brain 07/14/16: IMPRESSION 1. Punctate focus of probable diffusion restriction within the posterior right frontal lobe may represent a small focus of acute ischemia. 2. High signal within the cortex of the right posterior cerebrum without corresponding low signal on the ADC map. This does not reflect acute ischemia and is likely artifactual. However, without the benefit of additional MRI sequences, an alternative underlying process such as seizure edema cannot be entirely excluded. TTE 07/14/16: SUMMARY: ?? 1. Basal septal hypertrophy is observed. There is normal global left ventricular systolic function. The quantitative left ventricular ejection fraction by biplane Schwartz's method is 58%. There are no left ventricular segmental wall motion abnormalities. There is septal flattening present consistent with right ventricular pressure overload. 2. The right ventricle is moderately dilated. Right ventricular global systolic function is probably normal. 3. The estimated pulmonary artery systolic pressure is 41 mmHg. 4. There is moderate (2+/4+) tricuspid regurgitation present. 5. See remainder of report for additional findings. Assessment and Plan: Carol Keller is a 66 y.o. RIGHT handed female with PMHx of DM, SVT, CLL, s/p eye surgery on 07/11/16 (membranre peeling of internal limiting membrane and epiretinal membrane, pars plana vitrectomy), who arrives on a stroke alert for arrives with LEFT facial and LEFT hand numbness, LEFT facial droop (now resolved), LEFT UE weakness (resolved), and LEFT UE dysmetria. CTH was negative for acute findings. Due patient's resolving symptoms and minor deficits there was no indication for tpa. However,her large PE found on imaging and subjective SOB with desats to 80% warranted tpa for PE. This was successfully given without serious complications. Patient is stable and doing well. MRI does show small infarct in RIGHT posterior frontal. Unclear on etiology of infarct but given her CLL and extent of leukocytosis in the context of PE, venous infarction/venous statis (hyperviscosity syndrome) vs atheroembolism. When patient is stable, patient should obtain MRA head and neck. # Recommdations -Neuro check & vitals Q 4hrs / Q4hrs -Permissive HTN, treat SBP >220 with prn labetalol, enalaprilat -plavix (DC'ed per heme recs) -Statin -IVF -TTECOMPLETED -12 lead EKG -Telemetry -MRI brain wo contrast -COMPLETED -MRA head wo contrast, neck w/wo contrast -r CTA Chest to r/o PE or dissection-COMPLETED -PT/OT/CORPORATE EVENT PLANNER -Heparin gg -RBOs -SCDs Fariha Bennett MD PGY-2 Neurology Resident Vascular Neurology Pager [phone] Neurology Attending I saw and evaluated the patient with the neurology team. I have reviewed the resident's history during the visit and I agree with the details as written. My physical examination confirms the resident'sfindings. The assessment and plan were formulated in discussion with me at the time of the visit Chris agree with them as documented. Patient with CLL in the context of right ocular surgery has suffered a stroke on the right of unclear etiology with some left-sided weakness as described above and course complicated by pulmonary embolism She has received TPA and may be bleeding from more than one site, but no evidence of cerebral hemorrhage I appreciate hematology/oncology recommendations that she needs to be on Lovenox for coagulopathy. From a neurological point of view this is very reasonable. The recommendations as above Anoop Palafox MD Department of Neurology [place] [phone] Pager [phone] Email: [email or web address] Priscilla Tinoco RN - 07/15/2016 7:00 PM EST Patient arrived to floor from ICU, patient oriented to room, staff and call light. Vitals signs obtained. Bloody drainage noted to right eye, patient states that it has been draining. Patient is alert and oriented x 4. See doc flow for vital signs. Jc Finney MD - 07/15/2016 1:28 PM EST Neurology Progress Note Patient name: Carol Keller Date of : 1950 PCP: Berkley Madrigal MD IDI: Carol Keller is a 66 y.o. RIGHT handed female with PMHx of DM, SVT, CLL, s/p eye surgery on 07/11/16 (membranre peeling of internal limiting membrane and epiretinal membrane, pars plana vitrectomy), who arrives on a stroke alert on 07/14/16, found to punctate infarct in posterior RIGHT frontal lobe and saddle embolus in lungs, s/p tpa for PE Interval Events: -MRI shows small punctate infarct in posterior RIGHT frontal lobe -saddle PE found on CTA s/p tpa -patient neurologically stable. She developed LEFT thigh hematoma, eye bleeding but otherwise remains stable. Ophthalmology consulted to evaluate eye and patched up Current Medications: No current facility-administered medications on file prior to encounter. Current Outpatient Prescriptions on File Prior to Encounter Medication Sig Dispense Refill ??? moxifloxacin (VIGAMOX) 0.5 % Drops Place 1 drop into the right eye 4 times daily. ??? prednisoLONE acetate (PRED FORTE) 1 % Drops, Suspension Place 1 drop into the right eye 4 times daily. ??? iyoblbkx-wtdaenkxt-ieynpyunblpyz (DEXACINE) 3.5 mg/g-10,000 unit/g-0.1 % Ointment Place 1 Tube into the right eye nightly as needed. ??? estradiol (ESTRACE) 0.5 mg Tablet Take 0.5 mg by mouth daily. Indications: estrogen replacement ??? aspirin 81 mg Tablet, Delayed Release (E.C.) Take 81 mg by mouth daily. ??? melatonin 3 mg Tab Take 3 mg by mouth nightly as needed. ??? imipramine (TOFRANIL) 10 mg tablet Take 10 mg by mouth 2 times daily. ??? multivitamin capsule Take 1 capsule by mouth daily. ??? Cholecalciferol, Vitamin D3, (VITAMIN D) 2,000 unit Cap Take 2,000 mg by mouth. ??? omeprazole (PRILOSEC) 20 mg capsule ??? cycloSPORINE (RESTASIS) 0.05 % ophthalmic emulsion ??? Green Tea Extract 500 mg Cap Take 500 mg by mouth daily. ??? Glucosamine Sulfate 500 mg Tab Physical Exam: Vitals: Temp: [36.4 ??C (97.5 ??F)-37 ??C (98.6 ??F)] Heart Rate: [71-110] Resp: [11-26] BP: (90-146)/(40-90) SpO2: [90 %-99 %] Heart Rate from SPO2: [68 bpm-115 bpm] Gen: Patient of apparent stated age, well nourished, well developed, awake, alert, NAD, notable periorbital swelling and erythema on RIGHT from surgery. Patient arrived prone Neck: Supple, no meningismus, CV: + S1, S2, regular rhythm, tachycardic, no murmur Resp: CTA B/L Abd: +normoactive bowel sounds, soft, nontender, nondistended Ext: No edema. No bony deformity Neuro Exam: MS: AAOx4, clear language, no dysarthria, follows commands CN: PERRL, EOMI, visual abreu full Facial sensation intact, no facial asymmetry Hearing intact to finger rub Palate elevates symmetrically, tongue protrudes midline SCM and trap strength intact Motor: Normal bulk and tone. UE: 5/5 R, 5/5 L Arm abduction at shoulder 5/5 R, 5/5 L Elbow extension 5/5 R, 5/5 L Elbow flexion 5/5 R, 5/5 L Quill Skinner LE: 5/5 R, 5/5 L Hip flexion 5/5 R, 5/5 L Knee extension 5/5 R, 5/5 L Knee flexion 5/5 R, 5/5 L Foot dorsiflexion 5/5 R, 5/5 L Foot plantar flexion Sensation: Intact to light touch, temperature, and vibration throughout Reflexes: DTRs 2+ R, 2+ L Biceps 2+ R, 2+ L Brachioradialis 2+ R, 2+ L Triceps 2+ R, 2+ L Patellar 2+ R, 2+ L Achilles tendon Toes - R down, L down Coordination: L FNF dysmetria Rapid alternating movements & finger tapping smooth and symmetric Heel-villanueva intact No tremor Gait: Not assessed Labs: Recent Results (from the past 24 hour(s)) POCT Glucose Result Value Ref Range POC Glucose 102 65 - 199 mg/dL APTT Result Value Ref Range PTT 34 25 - 35 sec Magnesium Result Value Ref Range Magnesium 0.80 0.69 - 1.07 mmol/L Phosphorus Result Value Ref Range Phosphorus 3.9 2.5 - 4.5 mg/dL Prothrombin Time Result Value Ref Range PT 17.3 (H) 12.0 - 15.0 sec INR 1.4 (H) 0.9 - 1.1 Hemogram Result Value Ref Range WBC 163.2 (CRIT) 4.0 - 9.5 x10(3)/mcL RBC 3.54 (L) 4.00 - 5.21 x10(6)/mcL Hemoglobin 10.1 (L) 11.7 - 15.5 gm/dL Hematocrit 33.3 (L) 35.7 - 45.8 % MCV 94.1 82.6 - 94.4 fL MCH 28.5 27.1 - 32.0 pg MCHC 30.3 (L) 31.7 - 35.0 gm/dL Platelets 134 (L) 145 - 357 x10(3)/mcL RDWSD 47.8 (H) 37.0 - 46.0 fL RDWCV 14.4 (H) 11.5 - 14.1 % MPV 10.9 7.6 - 12.9 fL nRBC % Auto 0.0 % nRBC Abs Auto 0.000 0.000 - 0.000 x10(3)/mcL Differential, Automated Result Value Ref Range Neutrophils % 5.8 % Neutr Abs (ANC) 9.36 (H) 1.70 - 6.10 x10(3)/mcL Lymphocytes % 93.1 % Lymphocytes Abs 151.8 (H) 0.9 - 3.2 x10(3)/mcL Monocytes % 0.7 % Monocyte Abs 1.2 (H) 0.3 - 0.9 x10(3)/mcL Eosinophils % 0.1 % Eosinophils Abs 0.1 0.0 - 0.4 x10(3)/mcL Basophils % 0.0 % Basophils Abs 0.1 0.0 - 0.1 x10(3)/mcL Immature Gran % 0.30 % Claudia Gran Abs 0.57 (H) 0.00 - 0.04 x10(3)/mcL Basic Metabolic Panel (non-fasting) Result Value Ref Range Glucose Lvl 127 65 - 199 mg/dL BUN 16 8 - 18 mg/dL Creatinine 0.87 0.70 - 1.20 mg/dL Sodium 142 135 - 145 mmol/L Potassium 3.6 3.5 - 5.0 mmol/L Chloride 109 (H) 98 - 107 mmol/L CO2 20 (L) 22 - 31 mmol/L Anion Gap 13 5 - 15 mmol/L Calcium 7.7 (L) 8.5 - 10.5 mg/dL Estimated GFR >60 >=60 APTT Result Value Ref Range PTT 68 (H) 25 - 35 sec Scan, Peripheral Blood Result Value Ref Range Plat Estimate Normal RBC Morphology Normal Smudge Cells Present Potassium Result Value Ref Range Potassium 4.1 3.5 - 5.0 mmol/L APTT Result Value Ref Range PTT 122 (H) 25 - 35 sec Diagnostic Tests and Imaging: Head CT w/out: No acute abnormalities MRI Brain 07/14/16: IMPRESSION 1. Punctate focus of probable diffusion restriction within the posterior right frontal lobe may represent a small focus of acute ischemia. 2. High signal within the cortex of the right posterior cerebrum without corresponding low signal on the ADC map. This does not reflect acute ischemia and is likely artifactual. However, without the benefit of additional MRI sequences, an alternative underlying process such as seizure edema cannot be entirely excluded. TTE 07/14/16: SUMMARY: ?? 1. Basal septal hypertrophy is observed. There is normal global left ventricular systolic function. The quantitative left ventricular ejection fraction by biplane Schwartz's method is 58%. There are no left ventricular segmental wall motion abnormalities. There is septal flattening present consistent with right ventricular pressure overload. 2. The right ventricle is moderately dilated. Right ventricular global systolic function is probably normal. 3. The estimated pulmonary artery systolic pressure is 41 mmHg. 4. There is moderate (2+/4+) tricuspid regurgitation present. 5. See remainder of report for additional findings. Assessment and Plan: Carol Keller is a 66 y.o. RIGHT handed female with PMHx of DM, SVT, CLL, s/p eye surgery on 07/11/16 (membranre peeling of internal limiting membrane and epiretinal membrane, pars plana vitrectomy), who arrives on a stroke alert for arrives with LEFT facial and LEFT hand numbness, LEFT facial droop (now resolved), LEFT UE weakness (resolved), and LEFT UE dysmetria. CTH was negative for acute findings. Due patient's resolving symptoms and minor deficits there was no indication for tpa. However,her large PE found on imaging and subjective SOB with desats to 80% warranted tpa for PE. This was successfully given without serious complications. Patient is stable and doing well. MRI does show small infarct in RIGHT posterior frontal. Unclear on etiology of infarct but given her CLL and extent of leukocytosis in the context of PE, venous infarction/venous statis (hyperviscosity syndrome) vs atheroembolism. When patient is stable, patient should obtain MRA head and neck. # Recommdations -Neuro check & vitals Q 4hrs / Q4hrs -Permissive HTN, treat SBP >220 with prn labetalol, enalaprilat -Aspirin 325mg now and continue Plavix 75 mg (patient came in on Aspirin so technically has failed Aspirin) -Check CBC, BMP, LFT, lipid profile, HbA1c, Mg, Phos, UA -Statin -IVF -TTECOMPLETED -12 lead EKG -Telemetry -MRI brain wo contrast -COMPLETED -MRA head wo contrast, neck w/wo contrast -r CTA Chest to r/o PE or dissection-COMPLETED -PT/OT/CORPORATE EVENT PLANNER -Heparin gg -RBOs -SCDs Jc Martinez MD PGY-2 Neurology Resident Vascular Neurology Pager [phone] Associated attestation - Brittene Granados MD - 07/15/2016 11:24 PM EST I evaluated the patient with the Neurology Residents during bedside rounds. I have reviewed the medical records and patient's history, as well as the resident???s and student's history and examination findings and I agree with the details as written. My neurologic examination confirms the resident???sfindings. We formulated the assessment and plan after a detailed discussion, as documented. SandrineGopalmichelle Landry - 07/15/2016 7:41 AM EST ICU Resident Progress Note Date of Admission: 07/14/2016 ( Hospital Day 1 day ) Responsible Attending: Regina Hill MD Patient ID: Carol Keller is a 66 y.o. female with a PMHX significant for CLL, diabetes (on diet control alone), s/p vitrectomy (for membrane peeling for epiretinal membrane and macular hole) [facility] [place] [facility] for dyspnea and left sided neurological deficits. Found to have resolving stroke/TIA and submassive PE treated with tPA. Patient Active Problem List Diagnosis Code ??? [...] of skin Z85.828 ??? Pulmonary embolism I26.99 Interval Events: - L thigh Hematoma spreading - L UE neurological deficits improving - Pain (hematoma) controlled with tylenol and oxycodone Physical Exam: Vitals: Last Value Range Last 24 Hours Temperature Temp: 36.5 ??C (97.7 ??F) Temp: [36.4 ??C (97.5 ??F)-37 ??C (98.6 ??F)] Heart Rate Heart Rate: 71 Heart Rate: [71-110] Blood Pressure BP: 92/59 BP: (92-166)/(46-96) Respiratory Rate Resp: 14 Resp: [10-26] SpO2 SpO2: 98 % SpO2: [87 %-98 %] Patient Vitals for the past 168 hrs: Weight 07/15/16 0600 74.6 kg (164 lb 7.4 oz) 07/14/16 1530 76.3 kg (168 lb 3.4 oz) 07/14/16 1132 76 kg (167 lb 8.8 oz) Weights: Admit weight: 76 kg I/O: Intake/Output Summary (Last 24 hours) at 07/15/16 0741 Last data filed at 07/15/16 0600 Gross per 24 hour Intake 587 ml Output 1740 ml Net -1153 ml General: alert, conversant female appears in NAD. Lying on her L side HEENT: NCAT, PERRLA, deferred eye exam given previous surgery, nares/OP clear, no thyromegaly, no lymphadenopathy, MMM + pink Heart: RRR, normal S1 and S2; no m/r/g apparent Lungs: No increased WOB; CTAB, no rhonchi/wheezes/rales Abdomen: Soft, BS+ NT, ND, no bruits, no rebound or guarding, no organomegaly Extremities: Full ROM; pulses 2+ bilaterally. Large L thigh latero-posterior hematoma, slightly increased in size from prior. Scattered UE bruising. Neuro: MS: AOx3 CN: Deferred eye exam, face sensation intact, hearing intact, palate elevates symmetrically and tongue midline. SCM strength intact Motor: Normal bulk and tone, no motor deficits appreciated for UE and LE Reflexes: negative babinski's, hyporeflexic, but poor position Coodination: Deferred MANAS and finger to nose Drips: ??? heparin (porcine) 1,300 Units/hr (07/15/16316) Medications: Scheduled Meds: ??? potassium chloride 40 mEq Oral Once ??? magnesium sulfate 2 g Intravenous Once ??? aspirin 325 mg Oral Daily ??? moxifloxacin 1 drop Right Eye 4 Times Daily ??? prednisoLONE acetate 1 drop Right Eye 4 Times Daily ??? razzsqrm-wexkdxycu-weugmrjpxqbox 1 Tube Right Eye Nightly ??? pantoprazole 20 mg Oral Daily ??? melatonin 3 mg Oral Nightly PRN Meds:.acetaminophen, potassium chloride OR potassium chloride, heparin (porcine) AND heparin (porcine), oxyCODONE Labs: Recent Labs 07/15/16 0210 07/14/16 1820 07/14/16 0844 WBC 163.2* -- 163.9* HGB 10.1* -- 14.1 HCT 33.3* -- 45.2 PLATELET 134* -- 165 PT 17.3* -- 14.6 INR 1.4* -- 1.1 PTT 68* 34 26 Recent Labs 07/15/16 0210 07/14/16 0844 NA 142 140 K 3.6 See Note CL 109* 103 CO2 20* 21* BUN 16 22* CREATININE 0.87 0.99 GLUCOSE 127 193 CALCIUM 7.7* 8.9 MAGNESIUM 0.80 -- PHOS 3.9 -- Recent Labs 07/14/16 0844 TROPONINT 0.11* Diagnostics Tests and Imaging: MRI, 07/14 IMPRESSION 1. Punctate focus of probable diffusion restriction within the posterior right frontal lobe may represent a small focus of acute ischemia. 2. High signal within the cortex of the right posterior cerebrum without corresponding low signal on the ADC map. This does not reflect acute ischemia and is likely artifactual. However, without the benefit of additional MRI sequences, an alternative underlying process such as seizure edema cannot be entirely excluded. ?? CTPE, 07/14 FINDINGS: Pulmonary arteries: Large filling defect extending along the bifurcation of the right and left main pulmonary arteries consistent with a saddle embolus. Filling defects are seen extending into almost all visualized pulmonary artery segments, but predominantly within the basilar segments. ? Other cardiovascular structures: There is evidence of right heart strain based on the RIGHT-LEFT ventricular ratio which is >1 using the right ventricle which measures 3.9 cm to the left ventricle which measures 3.2 cm. ? Lungs and airways:? No significant findings. Pleura and pericardium: No significant findings. ? Mediastinum and hilar structures: No lymphadenopathy. ? Limited views of the upper abdomen: No significant findings. Skeletal structures: No aggressive lytic or sclerotic lesions. ? IMPRESSION Large saddle embolism with evidence of right heart strain, as above. ?? CT Head, non con, 07/14 IMPRESSION No acute intracranial abnormality. Intraocular air and fluid on the right. ?? TTE, 07/14 SUMMARY: ? 1. Basal septal hypertrophy is observed. There is normal global left ventricular systolic function. The quantitative left ventricular ejection fraction by biplane Schwartz's method is 58%. There are no left ventricular segmental wall motion abnormalities. There is septal flattening present consistent with right ventricular pressure overload. 2. The right ventricle is moderately dilated. Right ventricular global systolic function is probably normal. 3. The estimated pulmonary artery systolic pressure is 41 mmHg. 4. There is moderate (2+/4+) tricuspid regurgitation present. 5. See remainder of report for additional findings. Pending Studies: Blood viscosity study Assessment/Plan: Carol Keller is a 66 y.o. female with a PMHX significant for CLL, diabetes (on diet control alone), s/p vitrectomy (macular hole) who presents to [facility] for dyspnea and left sided neurological deficits and found to have submassive PE with R heart strain s/p tPA and L-sided UE neurological deficits. Currently, patient's O2 requirement is back to RA only and she is symptomatically improved after tPA. Heparin has been started after tPA. Presentation will qualify as a provoked PE and patient will need therapeutic anticoagulation (most likely a DOAC) after discharge. It is possible that CLL, with CBCof 160, could have been a contributor with hyperviscosity, though CLL is not known often to be associated with hyperviscosity. We will consult Hematology if treatment of underlying CLL would be beneficial. tPA complications improving, in terms of hematoma and eye bleeding, will continue to monitor. Neurological symptoms much improved and presentation seems more inbound call center representative of TIA, though tPA was given outside of therapeutic window. Will proceed with imaging today, MRA head and neck. Given HDS (mildly hypotensive) and lack of O2 requirement, will transfer to [facility] today. Summary for today - Transfer to [facility], HDS + no longer requiring O2 - 4 point Hgb drop, mildly hypotensive, not requiring pressors - MRA Head + neck # Pulmonary Embolism, Large saddle embolism - S/P tPA, will do neuro checks per protocol. Every 15 mins per 2 hours after starting t-PA, followed by every 30 mins for 6 hours and then every hour for 24 hours post infusion and every 4 hours afterthe first 24 hours. - Continue Heparin - Consider DOAC at discharge - Aggressive vital checks s/p tPA - STAT CT head if neuro change with tPA # L-sided stroke Small area of ischemia seen in posterior R frontal lobe Symptoms mostly resolving - Neuro checks per protocol for tPA Appreciate Neurology recs: - s/p aspirin 325 - Continue aspirin 81mg - Permissive HTN, treat SBP for >220 - Consider Plavix tomorrow - MRI H+N ?? # S/P Vitrectomy for macular hole - Continue home pred forte - Continue home vigamox - Continue home dexacine - Start Refresh PM QID - hold home restasis ?? # CLL - Sees Dr. Giraldo for many years for CLL - Has never received treatment reportedly - WBC of ~160 is not significantly elevated from prior. - Consult Hematology for hyperviscosity ?? # FEN - IVF: none indicated - Electrolytes: replete prn - Nutrition: NPO for now and reassess tomorrow as patient at high risk for procedures ?? # Routine - DVT PPx: Heparin - GI PPx: home omeprazole d/c in lieu pantoprazole - Bowel meds: None indicated - Code Status: Partial. Patient stated that she would accept intubation, but no compression. - DOPA: Patient has named Cheyanne and Parker, her daughter and son respectively, as her joint DPOAs. She has not yet filled out paperwork and their contact info is below. Cheyanne Arianna [phone] Parker Arianna [phone] - Dispo: ICU status for monitoring, discharge pending clinical course ?? Dayron Deluca M.D. Internal Medicine, PGY-1 ICU Blue Team, Team Pager #[phone] Associated attestation - Regina Hill MD - 07/16/2016 6:53 AM EST I have seen the patient and reviewed the resident's above history and I agree with the details as written. The assessment and plan were formulated in discussion with me and I agree with them as documented. Can transition to floor Appreciate heme/onc and neuro input Pati Houston RT - 07/14/2016 6:04 PM EST Received pt from ED on HFNC 50%. Pt was transitioned to NC 3 LPM. Continue to monitor. documented in this encounter H&P Notes Zaid Peña MD - 07/15/2016 2:40 PM EST Inpatient Medicine - Admission History & Physical - [facility] team [id number] Presenting diagnosis/chief complaint: submassive PE and stroke History of present illness: Carol Keller is a 66 y.o. female with PMH of CLL, diet controlleddiabetes, recent vitrectomy for membrane peeling with NO surgery who presented with dyspnea and leftsided neurological deficits. She was admitted to the ICU yesterday after her family noted sudden SOB, diaphoresis, lightheadedness, slurred speech, and left hand numbness and weakness. Her Daughter called 911 and she was BIBA to the ED here. Slurred speech and facial droop reportedly resolved en routehowever weakness and numbness were still present. Stroke alert was called and head CT was negative. Patient was markedly hypoxic however so stat TTE and CT-PE were done which showed large saddle embolism and right heart strain with PASP 41 mmHg. She was given tPA and transferred to the ICU for closer monitoring. Overnight she developed acute bleeding from her right eye as well as thigh hematoma. Hgb dropped from 14 to 10, repeat is pending. She has been progressively more hypotensive and orthostatic in the interim, she is getting fluids at present. She notes no residual deficits from her stroke besides poor ocular tracking with her right eye. She states vision in left eye is intact. Past medical/surgical history: Past Medical History Diagnosis Date ??? Cancer ??? Cardiac disease ??? CLL (chronic lymphocytic leukemia) ??? Diabetes mellitus dx ~2010 ??? Diabetes mellitus ??? Disease of blood and blood forming organ ~2008 leukemia CLL ??? GERD (gastroesophageal reflux disease) ??? 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 SVT (supraventricular tachycardia) ??? Unspecified diseases of blood and blood-forming organs ??? Verruca vulgaris 03/08/2013 Review of systems: Negative for fevers, chills, dyspnea, nausea, vomiting, diarrhea, constipation, dysuria, rash. Positive for pain in left thigh and right eye blurred vision. Medications: No current facility-administered medications on file prior to encounter. Current Outpatient Prescriptions on File Prior to Encounter Medication Sig Dispense Refill ??? moxifloxacin (VIGAMOX) 0.5 % Drops Place 1 drop into the right eye 4 times daily. ??? prednisoLONE acetate (PRED FORTE) 1 % Drops, Suspension Place 1 drop into the right eye 4 times daily. ??? rbtgjmdr-bayfczikt-yvtqugrpsnyef (DEXACINE) 3.5 mg/g-10,000 unit/g-0.1 % Ointment Place 1 Tube into the right eye nightly as needed. ??? estradiol (ESTRACE) 0.5 mg Tablet Take 0.5 mg by mouth daily. Indications: estrogen replacement ??? aspirin 81 mg Tablet, Delayed Release (E.C.) Take 81 mg by mouth daily. ??? melatonin 3 mg Tab Take 3 mg by mouth nightly as needed. ??? imipramine (TOFRANIL) 10 mg tablet Take 10 mg by mouth 2 times daily. ??? multivitamin capsule Take 1 capsule by mouth daily. ??? Cholecalciferol, Vitamin D3, (VITAMIN D) 2,000 unit Cap Take 2,000 mg by mouth. ??? omeprazole (PRILOSEC) 20 mg capsule ??? cycloSPORINE (RESTASIS) 0.05 % ophthalmic emulsion ??? Green Tea Extract 500 mg Cap Take 500 mg by mouth daily. ??? Glucosamine Sulfate 500 mg Tab Allergies: Allergies Allergen Reactions ??? Penicillins Rash ??? Sulfa (Sulfonamide Antibiotics) CIS - Unknown ??? Penicillins CIS - Rash Social history: Social History Social History ??? Marital status: Spouse name: N/A ??? Number of children: N/A ??? Years of education: N/A Social History Main Topics ??? Smoking status: Never Smoker ??? Smokeless tobacco: Never Used ??? Alcohol use Yes Comment: once per year ??? Drug use: No ??? Sexual activity: Not on file Other Topics Concern ??? Not on file Social History Narrative Merged History Encounter Significant family history: No history of clotting disorders Physical Exam: Last value Range last 24 hrs Temperature Temp: 36.8 ??C (98.2 ??F) Temp: [36.4 ??C (97.5 ??F)-37 ??C (98.6 ??F)] Heart Rate Heart Rate: 74 Heart Rate: [71-106] Blood Pressure BP: 90/40 BP: (90-128)/(40-69) Respiratory Rate Resp: 12 Resp: [11-26] SpO2 SpO2: 94 % SpO2: [92 %-99 %] Gen: elderly, laying on left side, NAD Eyes: right eye with orbital and periorbital bruising, left eye normal with normal ROM ENT: MMM, -erythema/exudate CV: RRR, Normal S1/S2, -m/r/g appreciated Respiratory: Good Aeration, CTAB, -w/r/r GI: Soft, NT/ ND, + BS, -HSM Skin: wrap over left thigh Neuro: unable to assess right eye, otherwise CNII-XII grossly normal, no focal deficits Musculoskeletal: tenderness over right thigh with swelling Ext: No edema, 2+ PT pulses Laboratory: Recent Results (from the past 24 hour(s)) POCT Glucose Result Value Ref Range POC Glucose 102 65 - 199 mg/dL APTT Result Value Ref Range PTT 34 25 - 35 sec Magnesium Result Value Ref Range Magnesium 0.80 0.69 - 1.07 mmol/L Phosphorus Result Value Ref Range Phosphorus 3.9 2.5 - 4.5 mg/dL Prothrombin Time Result Value Ref Range PT 17.3 (H) 12.0 - 15.0 sec INR 1.4 (H) 0.9 - 1.1 Hemogram Result Value Ref Range WBC 163.2 (CRIT) 4.0 - 9.5 x10(3)/mcL RBC 3.54 (L) 4.00 - 5.21 x10(6)/mcL Hemoglobin 10.1 (L) 11.7 - 15.5 gm/dL Hematocrit 33.3 (L) 35.7 - 45.8 % MCV 94.1 82.6 - 94.4 fL MCH 28.5 27.1 - 32.0 pg MCHC 30.3 (L) 31.7 - 35.0 gm/dL Platelets 134 (L) 145 - 357 x10(3)/mcL RDWSD 47.8 (H) 37.0 - 46.0 fL RDWCV 14.4 (H) 11.5 - 14.1 % MPV 10.9 7.6 - 12.9 fL nRBC % Auto 0.0 % nRBC Abs Auto 0.000 0.000 - 0.000 x10(3)/mcL Differential, Automated Result Value Ref Range Neutrophils % 5.8 % Neutr Abs (ANC) 9.36 (H) 1.70 - 6.10 x10(3)/mcL Lymphocytes % 93.1 % Lymphocytes Abs 151.8 (H) 0.9 - 3.2 x10(3)/mcL Monocytes % 0.7 % Monocyte Abs 1.2 (H) 0.3 - 0.9 x10(3)/mcL Eosinophils % 0.1 % Eosinophils Abs 0.1 0.0 - 0.4 x10(3)/mcL Basophils % 0.0 % Basophils Abs 0.1 0.0 - 0.1 x10(3)/mcL Immature Gran % 0.30 % Claudia Gran Abs 0.57 (H) 0.00 - 0.04 x10(3)/mcL Basic Metabolic Panel (non-fasting) Result Value Ref Range Glucose Lvl 127 65 - 199 mg/dL BUN 16 8 - 18 mg/dL Creatinine 0.87 0.70 - 1.20 mg/dL Sodium 142 135 - 145 mmol/L Potassium 3.6 3.5 - 5.0 mmol/L Chloride 109 (H) 98 - 107 mmol/L CO2 20 (L) 22 - 31 mmol/L Anion Gap 13 5 - 15 mmol/L Calcium 7.7 (L) 8.5 - 10.5 mg/dL Estimated GFR >60 >=60 APTT Result Value Ref Range PTT 68 (H) 25 - 35 sec Scan, Peripheral Blood Result Value Ref Range Plat Estimate Normal RBC Morphology Normal Smudge Cells Present Potassium Result Value Ref Range Potassium 4.1 3.5 - 5.0 mmol/L APTT Result Value Ref Range PTT 122 (H) 25 - 35 sec Viscosity Result Value Ref Range Viscosity 1.1 1.0 - 1.7 cP Potassium Result Value Ref Range Potassium 4.0 3.5 - 5.0 mmol/L Microbiology: none Radiology/Other Pertinent Studies: MRI, 07/14 IMPRESSION 1. Punctate focus of probable diffusion restriction within the posterior right frontal lobe may represent a small focus of acute ischemia. 2. High signal within the cortex of the right posterior cerebrum without corresponding low signal on the ADC map. This does not reflect acute ischemia and is likely artifactual. However, without the benefit of additional MRI sequences, an alternative underlying process such as seizure edema cannot be entirely excluded. ? CTPE, 07/14 FINDINGS: Pulmonary arteries: Large filling defect extending along the bifurcation of the right and left main pulmonary arteries consistent with a saddle embolus. Filling defects are seen extending into almost all visualized pulmonary artery segments, but predominantly within the basilar segments. ? Other cardiovascular structures: There is evidence of right heart strain based on the RIGHT-LEFT ventricular ratio which is >1 using the right ventricle which measures 3.9 cm to the left ventricle which measures 3.2 cm. ? Lungs and airways:? No significant findings. Pleura and pericardium: No significant findings. ? Mediastinum and hilar structures: No lymphadenopathy. ? Limited views of the upper abdomen: No significant findings. Skeletal structures: No aggressive lytic or sclerotic lesions. ? IMPRESSION Large saddle embolism with evidence of right heart strain, as above. ? CT Head, non con, 07/14 IMPRESSION No acute intracranial abnormality. Intraocular air and fluid on the right. ? TTE, 07/14 SUMMARY: ? 1. Basal septal hypertrophy is observed. There is normal global left ventricular systolic function. The quantitative left ventricular ejection fraction by biplane Schwartz's method is 58%. There are no left ventricular segmental wall motion abnormalities. There is septal flattening present consistent with right ventricular pressure overload. 2. The right ventricle is moderately dilated. Right ventricular global systolic function is probably normal. 3. The estimated pulmonary artery systolic pressure is 41 mmHg. 4. There is moderate (2+/4+) tricuspid regurgitation present. 5. See remainder of report for additional findings. Assessment/Plan: Carol Keller is a 66 y.o. female with PMH of CLL, DM, recent vitrectomy who presented with submassive PE and stroke, s/p tPA complicated by ocular bleed and thigh hematoma. Cocern right now is for ongoing bleeding given dropping BP and Hgb this am, STAT CBC ordered. Other management per neuro and ophtho recommendations. # saddle PE: - switch to enoxaparin today per heme recs, consideration of DOAC on discharge - repeat TTE if more signs of hemodynamic instability - q4h vitals check at this point - 1L additional fluids @ 100cc/hr # CVA: - neuro checks q4h - telemetry - DC aspirin 81(per heme) - start high intensity statin - start clopidogrel pending bleeding resolution - patient not stable for MRA currently, will continue to readdress # s/p vitrectomy (plan from ophthalmology note) D/C patch Resume daily drops (prednisolone and Vigamox 4x/d OD) Start lubricating ointment: Refresh PM 4x/d OD - d/c when exposure resolved Continue positioning - eyes looking down; do not look above horizontal plane. Keep post-up visit as planned with Dr. Coffey Monday next week. ? # CLL - chronic, unlikely to be causing hyperviscosity, viscosity 1.1 (normal) ? # Routine - DVT PPx: Enoxaparin - GI PPx: home omeprazole d/c in lieu pantoprazole - Bowel meds: None indicated - Code Status: Partial. Patient stated that she would accept intubation, but no compression. - DOPA: Patient has named Cheyanne and Parker, her daughter and son respectively, as her joint DPOAs. She has not yet filled out paperwork and their contact info is below. Cheyanne Arianna [phone] Parker Arianna [phone] - Dispo: Floor JOSR WU MD 07/15/2016 Pager #[phone] I have seen the patient and reviewed the resident's above history and physical exam. I agree with the details as written. The assessment and plan were formulated in discussion with me and I agree with them as documented. Zaid Peña MD IPI Certification I certify that I am a [facility] credentialed attending provider with admitting privileges and that the patient meets or has met medical necessity to require an inpatient IPI level of care meeting a minimum of two midnights or is on the [facility] inpatient only procedure list (status C) due to: acute respiratory compromise and/or hypoxia requiring assessment every 4 hours and the ability to respond immediately tothe patient's need Regina Hill MD - 07/14/2016 4:11 PM EST Critical Care Attending Note Author REGINA HILL MD Date 07/14/2016 This patient was seen and examined on critical care rounds. 66 year old woman with Nitric oxide retinal surgery in the setting of CLL who presented with complicated submassive PE Active Problems: PE-submassive Physical Exam Last value Range last 24 hrs Temperature Temp: 36.7 ??C (98.1 ??F) Temp: [36.7 ??C (98.1 ??F)] Heart Rate Heart Rate: 106 Heart Rate: [94-110] Blood Pressure BP: 99/50 BP: (99-166)/(46-96) Respiratory Rate Resp: 26 Resp: [10-26] SpO2 SpO2: 95 % SpO2: [87 %-95 %] Admit Weight 76 kg Body mass index is 28.43 kg/(m^2). General: Elderly woman lying on side HEENT: Right post surgical eye Respiratory: Clear and tachypnea Cardiac: S1 S2 inc P2 Abdominal: Soft NT Extremities: No edema No Homans Neuro: Non-focal now Intake/Output Summary (Last 24 hours) at 07/14/16 1611 Last data filed at 07/14/16 1531 Gross per 24 hour Intake 0 ml Output 1175 ml Net -1175 ml Infusions: Heparin Respiratory Support: 70% 30L HFNC Laboratory/Imaging/Diagnostics (these have been reviewed by me): + trop PE on CTA DWI on MRI Past 24 hour events: Admitted to ICU IV tPA Assessment, Management, and Decision Makin66 year old woman with serious submassive PE. We explored CDT and also just IJV heparin. She is in the high risk submassive PE and we are giving systemic thrombolysis. Eye surgery: Lie on side (why she couldn't get CDTPA) ICU housekeeping - Analgosedation: - Wake up and wean and mobilize: - Thromboprophylaxis: - Vent Bundle: - Ulcer ppx: - Feeding: - Glycemic control: - Bowel regimen : - Indwelling cath/lines - De-escalate abx : - Skin: - PT: -Goals of Care: I certify that the patient requires inpatient care status as outlined in CMS Guidelines and based on current medical issues, as outlined above. Is this patient critically ill? Is there a high potential of sudden, clinically significant, or life threatening deterioration? Yes Is there a need for direct personal assessment and management to treat/prevent multiple vital organ failure/deterioration? Yes The Critical Care Team is managing these illnesses: Respiratory Failure Acute with hypoxia Life threatening Submassive PE I personally performed 80 minutes of aggregate critical care time exclusive of procedures and teaching. This includes time spent during direct patient evaluation and reassessment, interpreting diagnostic tests, directing life and/or organ supporting interventions and documentation on the unit. Regina Hill MD Dayron Deluca X - 07/14/2016 1:41 PM EST ICU HISTORY & PHYSICAL EXAM Date of Admission: 07/14/2016 ( Hospital Day 0 days ) Responsible Attending: Regina Hill MD PCP: Berkley Madrigal MD PCP#: [phone] CC: Dyspnea Patient Active Problem List Diagnosis Code ??? [...] of skin Z85.828 ??? Pulmonary embolism I26.99 History of Present Illness: Carol Keller is a 66 y.o. right handed female with a PMHX significant for CLL, diabetes (on diet control alone), s/p vitrectomy (for membrane peeling for epiretinal membrane and macular hole) who presents to [facility] for dyspnea and left sided neurological deficits. Of note, patient received vitrectomy on 07/11, which entailed general anesthesia and in all, the procedure lasted 1 hour. Patient reports that she was in her USOH until 7:15 this morning. She reports sudden increased shortness of breath as her first symptom. She then got up and felt lightheaded as she moved to the restroom and also felt diaphoretic. There, around 7:25AM, she noticed that she had developed slurred speech and weakness of the left hand and arm, left hand and arm numbness and L sided drooping. Her daughter,Cheyanne, immediately called for EMS. While in transit to [facility], she noted that around 8:20AM, her left sided droop and slurred speech had resolved. However, her left sided weakness and numbness were still present. Denies headache and chest pain. On admission, her vitals were significant for: Afebrile, HR 100s, BP 131/67, RR 20, SpO2 87% on 4LNC Labs significant for WBC of ~160, Hgb of 14, plt 165. D-dimer significantly elevated. Troponin mildly elevated @ 0.11 A stroke alert had been called and Neurology came immediately to her bedside. CT Head was negative for acute findings and at the time, her resolving symptoms and mild deficits were thought to not be indications for tPA. However, patient was still requiring a high O2 requirement (going up to 50% HFNC).TTE showed mod dilated RV with PASP of 41 mmHg and EF of 58%. Moderate tricuspid regurg. CTPE showeda large saddle embolism with evidence of R heart strain. Patient and family was then consented to start tPA for her saddle embolism and she was transferred to ICU for monitoring. ROS: Constitutional: No fever, no night sweats, no chills, no fatigue, no recent weight changes HEENT: No CAI, no dizziness, no rhinorrea; vision changes s/p surgery, no hearing loss, no dysphagia,no sinus congestion Resp: SOB, no wheezing or coughing, no sputum CV: No chest pain or tightness, no palpitations GI: No n/v/d/c, no abd pain : No trouble urinating, or dysuria or burning, no polyuria, no polydypsia MSK: No soreness or arthlagias otherwise, no joint pain or swelling Neuro: AAO x 3. L-sided weakness and numbness as above. Skin: No new rashes, ulcers, skin or hair changes Past Medical History: Past Medical History Diagnosis Date ??? Cancer ??? Cardiac disease [...] ??? Verruca vulgaris 03/08/2013 Past Surgical History: Past Surgical History Procedure Laterality Date ??? Focal laser treatment 08/14/2012 OD for ret tear ??? Laser surgery 08/14/2012 FOCAL,OD ??? Retinopathy surgery Right 07/11/2016 PPV/MP with Intraocular Tamponade OD per CBC for Mac Hole ??? Retinal detachment surgery ??? Pro vitrectomy pars plana remove int memb retina Right 07/11/2016 VITRECTOMY, W/ MEMBRANE STRIPPING, INTRAOCULAR TAMPONADE (WRVU 16.33) performed by P[facility] C[facility]y [facility] Medications: No current facility-administered medications on file prior to encounter. Current Outpatient Prescriptions on File Prior to Encounter Medication Sig Dispense Refill ??? moxifloxacin (VIGAMOX) 0.5 % Drops Place 1 drop into the right eye 4 times daily. ??? prednisoLONE acetate (PRED FORTE) 1 % Drops, Suspension Place 1 drop into the right eye 4 times daily. ??? yvdyamrz-ywlghlsdk-ojkjlyjdlnnwg (DEXACINE) 3.5 mg/g-10,000 unit/g-0.1 % Ointment Place 1 Tube into the right eye nightly as needed. ??? estradiol (ESTRACE) 0.5 mg Tablet Take 0.5 mg by mouth daily. Indications: estrogen replacement ??? aspirin 81 mg Tablet, Delayed Release (E.C.) Take 81 mg by mouth daily. ??? melatonin 3 mg Tab Take 3 mg by mouth nightly as needed. ??? imipramine (TOFRANIL) 10 mg tablet Take 10 mg by mouth 2 times daily. ??? multivitamin capsule Take 1 capsule by mouth daily. ??? Cholecalciferol, Vitamin D3, (VITAMIN D) 2,000 unit Cap Take 2,000 mg by mouth. ??? omeprazole (PRILOSEC) 20 mg capsule ??? cycloSPORINE (RESTASIS) 0.05 % ophthalmic emulsion ??? Green Tea Extract 500 mg Cap Take 500 mg by mouth daily. ??? Glucosamine Sulfate 500 mg Tab Allergies: Allergies Allergen Reactions ??? Penicillins Rash ??? Sulfa (Sulfonamide Antibiotics) CIS - Unknown ??? Penicillins CIS - Rash Family History: Family History Problem Relation Age of Onset ??? Strabismus Brother ??? Thyroid Disease Mother ??? Cataracts Mother ??? Macular Degeneration Mother ??? Diabetes Mother ??? Hypertension Mother ??? Glaucoma Father borderline glaucoma ??? Cancer Father lung ??? Diabetes Maternal Grandmother ??? Diabetes Paternal Grandmother ??? Amblyopia Neg Hx ??? Retinal Detachment Neg Hx ??? Heart Disease Neg Hx Social History: Social History Social History ??? Marital status: Spouse name: N/A ??? Number of children: N/A ??? Years of education: N/A Occupational History ??? Not on file. Social History Main Topics ??? Smoking status: Never Smoker ??? Smokeless tobacco: Never Used ??? Alcohol use Yes Comment: once per year ??? Drug use: No ??? Sexual activity: Not on file Other Topics Concern ??? Not on file Social History Narrative Merged History Encounter Physical Exam: Vitals: Vitals: 07/14/16 1615 BP: 101/60 Pulse: 99 Resp: 20 Temp: General: alert, conversant female appears in NAD. Lying on her L side HEENT: NCAT, PERRLA, deferred eye exam given previous surgery, nares/OP clear, no thyromegaly, no lymphadenopathy, MMM + pink Heart: RRR, normal S1 and S2; no m/r/g apparent Lungs: No increased WOB; CTAB, no rhonchi/wheezes/rales Abdomen: Soft, BS+ NT, ND, no bruits, no rebound or guarding, no organomegaly Extremities: Full ROM; no cyanosis, edema, or clubbing; pulses 2+ bilaterally Neuro: MS: AOx3 CN: Deferred eye exam, face sensation intact, hearing intact, palate elevates symmetrically and tongue midline. SCM strength intact Motor: Normal bulk and tone, no motor deficits appreciated for UE and LE Reflexes: negative babinski's, hyporeflexic, but poor position Coodination: Deferred MANAS and finger to nose Skin: Warm, dry; no rashes or lesions Imaging: MRI, 07/14 IMPRESSION 1. Punctate focus of probable diffusion restriction within the posterior right frontal lobe may represent a small focus of acute ischemia. 2. High signal within the cortex of the right posterior cerebrum without corresponding low signal on the ADC map. This does not reflect acute ischemia and is likely artifactual. However, without the benefit of additional MRI sequences, an alternative underlying process such as seizure edema cannot be entirely excluded. CTPE, 07/14 FINDINGS: Pulmonary arteries: Large filling defect extending along the bifurcation of the right and left main pulmonary arteries consistent with a saddle embolus. Filling defects are seen extending into almost all visualized pulmonary artery segments, but predominantly within the basilar segments. ?? Other cardiovascular structures: There is evidence of right heart strain based on the RIGHT-LEFT ventricular ratio which is >1 using the right ventricle which measures 3.9 cm to the left ventricle which measures 3.2 cm. ? Lungs and airways:? No significant findings. Pleura and pericardium: No significant findings. ?? Mediastinum and hilar structures: No lymphadenopathy. ?? Limited views of the upper abdomen: No significant findings. Skeletal structures: No aggressive lytic or sclerotic lesions. ?? IMPRESSION Large saddle embolism with evidence of right heart strain, as above. CT Head, non con, 07/14 IMPRESSION No acute intracranial abnormality. Intraocular air and fluid on the right. TTE, 07/14 SUMMARY: ?? 1. Basal septal hypertrophy is observed. There is normal global left ventricular systolic function. The quantitative left ventricular ejection fraction by biplane Schwartz's method is 58%. There are no left ventricular segmental wall motion abnormalities. There is septal flattening present consistent with right ventricular pressure overload. 2. The right ventricle is moderately dilated. Right ventricular global systolic function is probably normal. 3. The estimated pulmonary artery systolic pressure is 41 mmHg. 4. There is moderate (2+/4+) tricuspid regurgitation present. 5. See remainder of report for additional findings. EKG: Sinus tachycardia, RSR' in V1. No signs of ischemia Assessment: Carol Keller is a 66 y.o. right handed female with a PMHX significant for CLL, diabetes (on diet control alone), s/p vitrectomy (for membrane peeling for epiretinal membrane and macular hole) who presents to [facility] for dyspnea and left sided neurological deficits. Initially concerned for L sided stroke, however, symptoms seem to be resolving. CT head revealed no acute intracranial pathology and MRI revealed a small focus of ischemia. Neurology has recommended no tPA for stroke. However, patient's dyspnea is now found to be due to a large saddle embolism. Patient has multiple risk factors, including long standing CLL and recent surgery with general anesthesia. Patient will be getting tPA and then will get heparin thereafter. Currently, she has a large left hip hematoma, whichhas been demarcated. We will follow this hematoma and potential neurological complications. Patient's recent eye surgery prevents her lying on her R side and lying supine. She will have to keep pressure off her left eye and orbit. Currently, patient is weaning down on O2 requirement and has no active chest pain. She seems to be progressing well, but we will be vigilant for further complications of tPA. Plan: # Pulmonary Embolism, Large saddle embolism - Continue tPA 100mg - After tPA is done, will transition to heparin per protocol - While tPA running, will do neuro checks per protocol. Every 15 mins per 2 hours after starting t-PA, followed by every 30 mins for 6 hours and then every hour for 24 hours post infusion and every 4 hours after the first 24 hours. - Aggressive vital checks s/p tPA - STAT CT head if neuro change with tPA # L-sided stroke Small area of ischemia seen in posterior R frontal lobe Symptoms mostly resolving - Neuro checks per protocol for tPA Appreciate Neurology recs: - s/p aspirin 325 - Aspirin 81mg thereafter - Permissive HTN, treat SBP for >220 - Will consider Statin and plavix tomorrow after tPA - Will do CTA head and neck tomorrow # S/P Vitrectomy for macular hole - Continue home pred forte - Continue home vigamox - Continue home dexacine - hold home restasis # CLL - Sees Dr. Giraldo for many years for CLL - Has never received treatment reportedly - WBC of ~160 is not significantly elevated from prior. - Concerning for hyperviscosity, however, per Neuro's conversation with Hematology, CLL is not usually associated with hyperviscosity. # FEN - IVF: none indicated - Electrolytes: replete prn - Nutrition: NPO for now and reassess tomorrow as patient at high risk for procedures # Routine - DVT PPx: tPA then heparin - GI PPx: home omeprazole d/c in lieu pantoprazole - Bowel meds: None indicated - Code Status: Partial. Patient stated that she would accept intubation, but no compression. - DOPA: Patient has named Cheyanne and Parker, her daughter and son respectively, as her joint DPOAs. She has not yet filled out paperwork and their contact info is below. Cheyanne Keller [phone] Parker Keller [phone] - Dispo: ICU status for monitoring, discharge pending clinical course Dayron Deluca M.D. Internal Medicine, PGY-1 ICU Blue Team, Team Pager #[phone] Jc Martinez MD - 07/14/2016 8:20 AM EST Neurology Admission History and Physical Patient name: Carol Keller Date of : 1950 PCP: Berkley Madrigal MD Onset of symptoms or last seen normal: 7:15 AM on 07/14/16 Stroke Alert Activated: 7:55 AM on 07/14/16 Neurology at Bedside: 7:59 AM HPI: Carol Keller is a 66 y.o. RIGHT handed female with PMHx of DM, SVT, CLL, s/p eye surgery on 07/11/16 (membranre peeling of internal limiting membrane and epiretinal membrane, pars plana vitrectomy), who arrives on a stroke alert. At 7:15 AM patient recalls that she got out of bed in the morning and felt dizzy, lightheaded and short of breath. Patient then recalls sneezing and afterwards family noted she had slurring of words, left facial droop, and left arm weakness. She also had subjective numbness in her LEFT hand and fingers as well as LEFT facial numbness. Family immediately called 911 and picked up by EMS. At around 8:20 AM while en route with EMS it was reported that her droop and slurr ing had resolving, but her weakness persistent and numbness persistent. Patient arrived prone (which she is instructed to do for her eye surgery) and arrived without IV access. Patient's vitals were significant for sinus tachycardia in 90-100s, BP 140/74, and saturations were 80% on RA which improved to 90% on 6L NC. We spoke with the eye surgeon who performed the eye surgery and felt that there was no major bleed risk and that tpa could be given with minimal bleed risk if indicated. Patient takes daily Aspirin 81 mg but did not take her morning dose. She is not on any anticoagulation. She had no other contraindications to tpa but because patient was improving (her weakness was no improving) no tpa was given. Current Medications: No current facility-administered medications on file prior to encounter. Current Outpatient Prescriptions on File Prior to Encounter Medication Sig Dispense Refill ??? moxifloxacin (VIGAMOX) 0.5 % Drops Place 1 drop into the right eye 4 times daily. ??? prednisoLONE acetate (PRED FORTE) 1 % Drops, Suspension Place 1 drop into the right eye 4 times daily. ??? dlpdoheq-filgcypjm-smhzsmnzmysvx (DEXACINE) 3.5 mg/g-10,000 unit/g-0.1 % Ointment Place 1 Tube into the right eye nightly as needed. ??? estradiol (ESTRACE) 0.5 mg Tablet Take 0.5 mg by mouth daily. Indications: estrogen replacement ??? aspirin 81 mg Tablet, Delayed Release (E.C.) Take 81 mg by mouth daily. ??? Green Tea Extract 500 mg Cap Take 500 mg by mouth daily. ??? melatonin 3 mg Tab Take 3 mg by mouth nightly as needed. ??? imipramine (TOFRANIL) 10 mg tablet Take 10 mg by mouth 2 times daily. ??? multivitamin capsule Take 1 capsule by mouth daily. ??? Cholecalciferol, Vitamin D3, (VITAMIN D) 2,000 unit Cap Take 2,000 mg by mouth. ??? Glucosamine Sulfate 500 mg Tab ??? omeprazole (PRILOSEC) 20 mg capsule ??? cycloSPORINE (RESTASIS) 0.05 % ophthalmic emulsion Past Medical & Surgical History: Past Medical History Diagnosis Date ??? Cancer ??? Cardiac disease ??? CLL (chronic lymphocytic leukemia) ??? Diabetes mellitus dx ~2010 ??? Diabetes mellitus ??? Disease of blood and blood forming organ ~2008 leukemia CLL ??? GERD (gastroesophageal reflux disease) ??? 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 SVT (supraventricular tachycardia) ??? Unspecified diseases of blood and blood-forming organs ??? Verruca vulgaris 03/08/2013 Past Surgical History Procedure Laterality Date ??? Focal laser treatment 08/14/2012 OD for ret tear ??? Laser surgery 08/14/2012 FOCAL,OD ??? Retinopathy surgery Right 07/11/2016 PPV/MP with Intraocular Tamponade OD per CBC for Mac [place] ??? Retinal detachment surgery ??? Pro vitrectomy pars plana remove int memb retina Right 07/11/2016 VITRECTOMY, W/ MEMBRANE STRIPPING, INTRAOCULAR TAMPONADE (WRVU 16.33) performed by Pavan Coffey MD at [facility] Home Medications: No current facility-administered medications on file prior to encounter. Current Outpatient Prescriptions on File Prior to Encounter Medication Sig Dispense Refill ??? moxifloxacin (VIGAMOX) 0.5 % Drops Place 1 drop into the right eye 4 times daily. ??? prednisoLONE acetate (PRED FORTE) 1 % Drops, Suspension Place 1 drop into the right eye 4 times daily. ??? ydxfcxqy-shqlmgywk-wetjdljvtfpuk (DEXACINE) 3.5 mg/g-10,000 unit/g-0.1 % Ointment Place 1 Tube into the right eye nightly as needed. ??? estradiol (ESTRACE) 0.5 mg Tablet Take 0.5 mg by mouth daily. Indications: estrogen replacement ??? aspirin 81 mg Tablet, Delayed Release (E.C.) Take 81 mg by mouth daily. ??? Green Tea Extract 500 mg Cap Take 500 mg by mouth daily. ??? melatonin 3 mg Tab Take 3 mg by mouth nightly as needed. ??? imipramine (TOFRANIL) 10 mg tablet Take 10 mg by mouth 2 times daily. ??? multivitamin capsule Take 1 capsule by mouth daily. ??? Cholecalciferol, Vitamin D3, (VITAMIN D) 2,000 unit Cap Take 2,000 mg by mouth. ??? Glucosamine Sulfate 500 mg Tab ??? omeprazole (PRILOSEC) 20 mg capsule ??? cycloSPORINE (RESTASIS) 0.05 % ophthalmic emulsion Allergy: Allergies Allergen Reactions ??? Penicillins Rash ??? Sulfa (Sulfonamide Antibiotics) CIS - Unknown ??? Penicillins CIS - Rash Family History: Family History Problem Relation Age of Onset ??? Strabismus Brother ??? Thyroid Disease Mother ??? Cataracts Mother ??? Macular Degeneration Mother ??? Diabetes Mother ??? Hypertension Mother ??? Glaucoma Father borderline glaucoma ??? Cancer Father lung ??? Diabetes Maternal Grandmother ??? Diabetes Paternal Grandmother ??? Amblyopia Neg Hx ??? Retinal Detachment Neg Hx ??? Heart Disease Neg Hx Social History: Social History Social History ??? Marital status: Spouse name: N/A ??? Number of children: N/A ??? Years of education: N/A Occupational History ??? Not on file. Social History Main Topics ??? Smoking status: Never Smoker ??? Smokeless tobacco: Never Used ??? Alcohol use Yes Comment: once per year ??? Drug use: No ??? Sexual activity: Not on file Other Topics Concern ??? Not on file Social History Narrative Merged History Encounter Review of systems: Constitutional: No fevers or chills Eyes: No vision changes, no diplopia, no blurry vision ENT: No rhinorrhea or pharyngitis, no meningismus CV: No chest pain or palpitations Resp: No cough, + shortness of breath GI: No nausea, vomiting, diarrhea or constipation : No dysuria, no incontinence Heme: No bleeding or bruising Endo: No polyuria or cold intolerance Neuro: See HPI Psych: No depression, normal sleep [x] Review of systems otherwise negative Physical Exam: Vitals: Temp: -- Heart Rate: [102-106] Resp: [14-23] BP: (130-141)/(65-78) SpO2: [87 %-91 %] Heart Rate from SPO2: [102 bpm-106 bpm] Gen: Patient of apparent stated age, well nourished, well developed, awake, alert, NAD, notable periorbital swelling and erythema on RIGHT from surgery. Patient arrived prone Neck: Supple, no meningismus, CV: + S1, S2, regular rhythm, tachycardic, no murmur Resp: CTA B/L Abd: +normoactive bowel sounds, soft, nontender, nondistended Ext: No edema. No bony deformity Neuro Exam: MS: AAOx4, clear language, no dysarthria, follows commands CN: PERRL, EOMI, visual abreu full Facial sensation intact, no facial asymmetry Hearing intact to finger rub Palate elevates symmetrically, tongue protrudes midline SCM and trap strength intact Motor: Normal bulk and tone. UE: 5/5 R, 5/5 L Arm abduction at shoulder 5/5 R, 5/5 L Elbow extension 5/5 R, 5/5 L Elbow flexion 5/5 R, 5/5 L Quill Skinner LE: 5/5 R, 5/5 L Hip flexion 5/5 R, 5/5 L Knee extension 5/5 R, 5/5 L Knee flexion 5/5 R, 5/5 L Foot dorsiflexion 5/5 R, 5/5 L Foot plantar flexion Sensation: Intact to light touch, temperature, and vibration throughout Reflexes: DTRs 2+ R, 2+ L Biceps 2+ R, 2+ L Brachioradialis 2+ R, 2+ L Triceps 2+ R, 2+ L Patellar 2+ R, 2+ L Achilles tendon Toes - R down, L down Coordination: L FNF dysmetria Rapid alternating movements & finger tapping smooth and symmetric Heel-villanue[place] intact No tremor Gait: Not assessed NIH Stroke Scale: (bold applicable choices) NIH Stroke Scale at Initial Evaluation: 1.a. Level of consciousness: 0-Alert 1-Not alert, but arousable with minimal stimulation 2-Not alert, requires repeat stimulation to attend 3-Coma 1.b. Ask patient the month and their age: 0-Answers both correctly 1-Answers one correctly 2-Both incorrect 1.c. Ask patient to open and close eyes: 0-Obeys both correctly 1-Obeys one correctly 2-Both incorrect 2. Best gaze (horizontal eye movement): 0-Normal 1-Partial gaze palsy 2-Forced deviation 3. Visual field testin-No visual field loss 1-Partial hemianopia 2-Complete hemianopia 3-Bilateral hemianopia (blind including cortical blindness) 4. Facial paresis (Ask patient to show teeth or raise eyebrows and close eyes tightly): 0-Normal symmetrical movement 1-Minor paralysis (flattened nasolabial fold, asymmetry on smiling) 2-Partial paralysis (total or near paralysis of lower face) 3-Complete paralysis of one or both sides (absence of facial movement in the upper and lower face) 5. Motor function right arm: 0-Normal (extends arm 90 degrees for 10 seconds without drift) 1-Drift 2-Some effort against gravity 3-No effort against gravity 4-No movement UT-Untestable (Joint fused or limb amputated) 5. Motor function- left arm: 0-Normal (extends arm 90 degrees for 10 seconds without drift) 1-Drift 2-Some effort against gravity 3-No effort against gravity (but baseline) 4-No movement UT-Untestable (Joint fused or limb amputated) 6. Motor function right le-Normal (extends leg 30 degrees for 5 seconds without drift) 1-Drift 2-Some effort against gravity 3-No effort against gravity 4-No movement UT-Untestable (Joint fused or limb amputated) 6. Motor function-left le-Normal (extends leg 30 degrees for 5 seconds without drift) 1-Drift 2-Some effort against gravity 3-No effort against gravity 4-No movement UT-Untestable (Joint fused or limb amputated) 7. Limb ataxia: 0-No ataxia 1-Present in one limb 2-Present in two limbs 8. Sensory (Use pinprick to test arms, legs, trunk and face compare side to side): 0-Normal 1-Mild to moderate decrease in sensation 2-Severe to total sensory loss 9. Best language (describe picture, name items, read sentences): 0-No aphasia 1-Mild to moderate aphasia 2-Severe aphasia 3-Mute 10. Dysarthria (read several words): 0-Normal articulation 1-Mild to moderate slurring of words 2-Near unintelligible or unable to speak UT-Intubated or other physical barrier 11. Extinction and inattention: 0-Normal 1-Inattention or extinction to bilateral simultaneous in one of the sensory modalities 2-Severe deanne-inattention or deanne-inattention to more than one modality TOTAL SCORE: 2 Labs: Recent Results (from the past 24 hour(s)) POCT Glucose Result Value Ref Range POC Glucose 165 65 - 199 mg/dL Prothrombin Time Result Value Ref Range PT 14.6 12.0 - 15.0 sec INR 1.1 0.9 - 1.1 APTT Result Value Ref Range PTT 26 25 - 35 sec Basic Metabolic Panel (non-fasting) Result Value Ref Range Glucose Lvl 193 65 - 199 mg/dL BUN 22 (H) 8 - 18 mg/dL Creatinine 0.99 0.70 - 1.20 mg/dL Sodium 140 135 - 145 mmol/L Potassium See Note 3.5 - 5.0 mmol/L Chloride 103 98 - 107 mmol/L CO2 21 (L) 22 - 31 mmol/L Anion Gap 16 (H) 5 - 15 mmol/L Calcium 8.9 8.5 - 10.5 mg/dL Estimated GFR 56 (L) >=60 Hemogram Result Value Ref Range WBC 163.9 (CRIT) 4.0 - 9.5 x10(3)/mcL RBC 4.80 4.00 - 5.21 x10(6)/mcL Hemoglobin 14.1 11.7 - 15.5 gm/dL Hematocrit 45.2 35.7 - 45.8 % MCV 94.2 82.6 - 94.4 fL MCH 29.4 27.1 - 32.0 pg MCHC 31.2 (L) 31.7 - 35.0 gm/dL Platelets 165 145 - 357 x10(3)/mcL RDWSD 48.8 (H) 37.0 - 46.0 fL RDWCV 14.4 (H) 11.5 - 14.1 % MPV 11.0 7.6 - 12.9 fL nRBC % Auto 0.0 % nRBC Abs Auto 0.000 0.000 - 0.000 x10(3)/mcL Differential, Automated Result Value Ref Range Neutrophils % 5.7 % Neutr Abs (ANC) 9.32 (H) 1.70 - 6.10 x10(3)/mcL Lymphocytes % 93.1 % Lymphocytes Abs 152.7 (H) 0.9 - 3.2 x10(3)/mcL Monocytes % 0.6 % Monocyte Abs 1.0 (H) 0.3 - 0.9 x10(3)/mcL Eosinophils % 0.1 % Eosinophils Abs 0.2 0.0 - 0.4 x10(3)/mcL Basophils % 0.1 % Basophils Abs 0.1 0.0 - 0.1 x10(3)/mcL Immature Gran % 0.40 % Claudia Gran Abs 0.61 (H) 0.00 - 0.04 x10(3)/mcL Gold Tube HOLD Result Value Ref Range Gold Hold Sample in lab. Troponin T Result Value Ref Range Troponin-T 0.11 (H) <=0.03 ng/mL D-Dimer, Quantitative Result Value Ref Range D-Dimer, Quant >24129 (CRIT) 0 - 500 FEU ng/ml Scan, Peripheral Blood Result Value Ref Range Plat Estimate Normal RBC Morphology Normal Smudge Cells Present pro-Brain Natriuretic Peptide Result Value Ref Range ProBNP 143 (H) <=125 pg/mL ABO/Rh Typing Result Value Ref Range ABORh Type A Neg Antibody screen Result Value Ref Range Ab Screen Interp Negative Expires at 2359 on: 07/17/2016 ABORH Recheck Status Result Value Ref Range ABORH Recheck Order Order Placed BLOOD GAS 2 ARTERIAL Result Value Ref Range pH Art 7.40 7.35 - 7.45 pCO2 Art 34 (L) 35 - 45 mmHg pO2 Art 52 (L) 85 - 104 mmHg HCO3 Art 20.4 20.0 - 26.0 mmol/L BE Art -4.5 (L) -3.0 - 3.0 mmol/L Hgb Blood Gas 14.4 11.7 - 15.5 gm/dL O2HB Art 86.6 (L) 94.0 - 97.0 % COHB Art 0.2 % METHB Art 0.3 <=1.5 % Na Whole Blood 141 135 - 145 mmol/L K Whole Blood 3.2 (L) 3.5 - 5.0 mmol/L ICa Whole Blood 1.20 1.15 - 1.33 mmol/L CL Whole Blood 107 98 - 107 mmol/L Gluc Whole Bld 163 65 - 199 mg/dL Lactate WB 1.5 0.5 - 2.2 mmol/L Diagnostic Tests and Imaging: Head CT w/out: No acute abnormalities Assessment and Plan: Carolcandelario Keller is a 66 y.o. RIGHT handed female with PMHx of DM, SVT, CLL, s/p eye surgery on 07/11/16 (membranre peeling of internal limiting membrane and epiretinal membrane, pars plana vitrectomy), who arrives on a stroke alert for arrives with LEFT facial and LEFT hand numbness, LEFT facial droop (now resolved), LEFT UE weakness (resolved), and LEFT UE dysmetria. CTH was negative for acute findings. Due patient's resolving symptoms and minor deficits there was no indication for tpa. Her event sounds vascular and localizes to RIGHT MCA territory hemisphere or possibly subcortical structures such as internal capsule. Patient has known CLL so the possible of a hyperviscosity syndrome is in the differential, especially in light of her shortness of breath and desaturation. She has also been immobile and these pulmonary signs and symptoms may represent a PE. # Recommdations -Neuro check & vitals Q 4hrs / Q4hrs -Permissive HTN, treat SBP >220 with prn labetalol, enalaprilat -Aspirin 325mg now and continue Plavix 75 mg (patient came in on Aspirin so technically has failed Aspirin) -Check CBC, BMP, LFT, lipid profile, HbA1c, Mg, Phos, UA -Statin -IVF -TTE -12 lead EKG -Telemetry -MRI brain wo contrast -MRA head wo contrast, neck w/wo contrast -consider CTA Chest to r/o PE or dissection -would involve medicine and hem/onc due to patient's medical cinditions -PT/OT/CORPORATE EVENT PLANNER -Lovenox 40mg SC daily -RBOs -SCDs Jc Martinez MD PGY-2 Neurology Resident Vascular Neurology Pager [phone] Associated attestation - Brittnee Granados MD - 07/14/2016 4:33 PM EST Neurology Attending Attestation I evaluated the patient with the Neurology Residents at the time of the stroke alert. I have reviewed the medical records and patient's history, as well as the resident???s and student's history and examination findings and I agree with the details as written. My neurologic examination confirms the resident???s findings. We formulated the assessment and plan after a detailed discussion, as documented. 66 y/o woman with hx of CLL untreated and right eye surgery (vitrectomy) three days ago, woke up with dizziness and SOB, developed acute left sided hemiparesis and slurred speech. NIHSS 2 given by one limb ataxia and sensory deficits. Head CT revealed no acute intracranial pathology, read by me at 8:52 am. Dysphagia screening pass at 9:03 am. Shared decision made at 9:10am with patient of not giving tPA giving mild improving symptoms and risk of bleeding complications outweighs the benefit for neurological improvement. Brittnee Granados MD Vascular Neurology documented in this encounter ED Notes Modesto Cooper RN - 07/14/2016 12:56 PM EST To MRI. Modesto Cooper RN - 07/14/2016 12:46 PM EST Report given to ALLIE Harris. Modesto Cooper RN - 07/14/2016 11:10 AM EST RT at bedside for high flow oxygenation setup. Modesto Cooper RN - 07/14/2016 10:32 AM EST Patient desaturated to 88% on 4 LPM NC. Increased to 6LPM. Modesto Cooper RN - 07/14/2016 9:45 AM EST Transthoracic echocardiogram ongoing at bedside. Cody Candelario MD - 07/14/2016 8:43 AM EST ED Resident Note Carol Keller is an 66 y.o. female who presents to the ED with: Chief Complaint Patient presents with ??? Numbness left sided HPI Carol Keller is a 66 y.o. female who presents to the Emergency Department with complaints of left upper extremity weakness, left-sided facial droop, slurred speech, and shortness of breath. Patient reports that she had been in her usual state of health this morning when she developed a sensation of weakness in her left hand around 30. Family members felt that she was slurring her words and that she also had a facial droop. She also experienced the acute onset of dyspnea at around the same time. EMS was notified and she was transported here by ambulance for evaluation. EMS providers had notified the ED of her symptoms and a stroke alert had been called. On arrival she reports that her slurred speech and facial droop have resolved but that she still has ongoing weakness in her arm. Endorses ongoing dyspnea but denies any chest pain, shortness of breath, lightheadedness, leg swelling, cough, fevers, or chills. Has never had similar symptoms in the past. Medical history is remarkable for C LL for which she has not yet received any specific treatment, though has been followed by Hem/Onc. Three days ago had underwent right eye vitrectomy with Dr. Coffey in ophthalmology. Since that time has been lying primarily in a prone position, per provider recommendations, and states that she has only been able to walk for short periods of time. Review of Systems: Review of Systems Constitutional: Negative for chills and fever. HENT: Negative for sore throat and trouble swallowing. Eyes: Negative for visual disturbance. Respiratory: Positive for shortness of breath. Negative for cough. Cardiovascular: Negative for chest pain, palpitations and leg swelling. Gastrointestinal: Negative for abdominal pain, constipation, diarrhea, nausea and vomiting. Genitourinary: Negative for difficulty urinating and dysuria. Musculoskeletal: Negative for arthralgias, myalgias and neck pain. Neurological: Positive for facial asymmetry, speech difficulty and weakness. Negative for dizziness and headaches. Psychiatric/Behavioral: Negative for confusion. Physical Exam: Patient Vitals for the past 24 hrs: BP Temp Temp src Pulse Resp SpO2 Height Weight 07/14/16 1630 105/69 - - 95 22 96 % - - 07/14/16 1615 101/60 - - 99 20 94 % - - 07/14/16 1600 99/50 - - 106 26 95 % - - 07/14/16 1545 109/46 - - 97 17 94 % - - 07/14/16 1530 105/53 36.7 ??C (98.1 ??F) Oral 94 16 95 % 163.8 cm (5' 4.5) 76.3 kg (168 lb 3.4 oz) 07/14/16 1400 134/78 - - 109 19 91 % - - 07/14/16 1345 146/90 - - 110 22 90 % - - 07/14/16 1330 144/86 - - 107 16 93 % - - 07/14/16 1245 136/79 - - 103 13 94 % - - 07/14/16 1230 142/74 - - 109 23 90 % - - 07/14/16 1215 147/78 - - 110 16 90 % - - 07/14/16 1200 (!) 158/91 - - 103 16 94 % - - 07/14/16 1145 (!) 158/91 - - 108 21 93 % - - 07/14/16 1132 - - - - - - 162.6 cm (5' 4) 76 kg (167 lb 8.8 oz) 07/14/16 1130 144/90 - - 104 17 91 % - - 07/14/16 1119 - - - - 13 94 % - - 07/14/16 1115 (!) 159/96 - - 107 15 91 % - - 07/14/16 1100 (!) 166/96 - - 107 22 91 % - - 07/14/16 1045 154/72 - - 103 10 95 % - - 07/14/16 1030 143/71 - - 101 24 92 % - - 07/14/16 1015 132/69 - - 100 17 (!) 89 % - - 07/14/16 1000 134/72 - - 102 14 90 % - - 07/14/16 0945 130/65 - - 102 16 91 % - - 07/14/16 0930 141/78 - - 102 15 90 % - - 07/14/16 0915 131/65 - - 106 19 91 % - - 07/14/16 0900 - - - 105 23 90 % - - 02/23/17 0845 131/67 - - 104 20 (!) 87 % - - Physical Exam Constitutional: She is oriented to person, place, and time. Elderly female, lying in stretcher in prone position. In no apparent distress. AO ??3. HENT: Head: Normocephalic and atraumatic. Right Ear: External ear normal. Left Ear: External ear normal. Nose: Nose normal. Eyes: EOM are normal. Pupils are equal, round, and reactive to light. No scleral icterus. Neck: Normal range of motion. Neck supple. Cardiovascular: Normal rate, regular rhythm and intact distal pulses. Exam reveals no gallop and no friction rub. No murmur heard. Pulmonary/Chest: Effort normal. She has no wheezes. She has no rales. Abdominal: Soft. She exhibits no distension. There is no tenderness. Musculoskeletal: Normal range of motion. She exhibits no edema or tenderness. Neurological: She is alert and oriented to person, place, and time. She has normal strength. No cranial nerve deficit or sensory deficit. Coordination normal. GCS eye subscore is 4. GCS verbal subscoreis 5. GCS motor subscore is 6. Skin: Skin is warm and dry. No rash noted. Psychiatric: She has a normal mood and affect. Her behavior is normal. Thought content normal. Nursing note and vitals reviewed. ED Course: - Patient seen under the supervision of Dr. Jaylon Candelario - Medications, allergies and past medical history reviewed - Neurology evaluated patient upon her arrival, directly involved in her care in the ED. - EKG reviewed: Sinus tachycardia with rate of 108. Incomplete right bundle branch block. No ST-T wave changes. - Labwork reviewed: CBC with marked leukocytosis (163.9). BMP with elevated BUN (22), mild anion gap(16) acidosis (HCO3 21). Troponin 0.11. D-dimer greater than 20,000. ProBNP 143. Coags unremarkable.ABG with pH 7.40, PCO2 34, PO2 52 (on 4L NC). - CT head performed: No evidence of ICH or infarction, intraocular air and fluid on the right. - X-ray images reviewed: Chest x-ray with no acute cardiopulmonary process. - CT chest with contrast performed: Large saddle pulmonary embolism with evidence of right heart strain. - TTE performed: EF of 58%. Moderate RV dilation. PASP 41mm Hg. Moderate tricuspid regurgitation present. - Given 1 L IVF, 325 mg oral ASA, started on heparin drip following initial bolus. - Transitioned to high flow nasal cannula due to escalating oxygen requirements. - Critical care consulted, agreed to admit. - Discussed thrombolytics with critical care, ophthalmology, neurology, hem/onc, and interventional radiology. Decision made to pursue systemic TPA should MRI imaging of her brain did not show any large territory infarct. - MRI images reviewed: MRI brain without contrast with punctate focus of probable diffusion restriction within the posterior right frontal lobe possibly representing a small focus of acute ischemia. - Given 100 mg IV TPA per PE protocol - Transferred to ICU I performed the following procedure(s): adult medical resuscitation. Assessment and Plan: Assessment: 66 y.o. female presenting with submassive pulmonary embolism and possible ischemic stroke. Markedly hypoxic on arrival with significant oxygen requirement. CT imaging showing a large saddlepulmonary embolism and echocardiogram confirming right heart strain. Troponin mildly elevated. Initia lly started on a heparin drip following initial bolus. TPA had initially been considered for treatment of her stroke symptoms but was deferred as these were felt to be resolving and she did not have any apparent deficits on exam. This was later reconsidered in context of the PE and decision to administer this made with multiple parties including critical care, neurology, ophthalmology, interventionalradiology, and hem/onc. Systemic thrombolysis was felt to be a better option than catheter directed therapy due to her need to lie in a prone position in context of her recent eye surgery. She was first sent for MRI to rule out large infarction which did show a small area of diffusion restriction in her right frontal lobe, possibly representing an area of ischemia. Neurology okay with TPA administration and she was started on this prior to her transfer to the ICU. Was containing oxygen saturations on 75% FiO2 via high flow nasal cannula. Never hypotensive in the ED. Otherwise she did have marked leukocytosis secondary to her CLL but Hem/Onc had low suspicion for any hyperviscosity syndrome or leukostasis. Plan: - Admit to Critical Care - Continue TPA infusion - Supplemental oxygen to maintain SpO2>92%. John Chew MD Resident 07/14/16 7782 ED ATTENDING ATTESTATION NOTE The patient was seen in conjunction with Dr. Chew, the resident physician. I have independently performed the whatley portions of the history and physical exam. I have reviewed the nursing notes, vital signs, and all diagnostic studies personally including labs, imaging studies and EKGs. I have discussed the details of the case with the resident and agree with the assessment and plan as described in the resident note above unless noted otherwise below. Brief Summary: 66-year-old female who was brought in by EMS with concerns for possible stroke. In the last several days she had macular surgery by ophthalmology. It was noted on arrival that she was quite hypoxic. Initial CT scan revealed no evidence of bleed or stroke. CTA of the chest was done to [place] for pulmonary embolism and indeed this was found. Critical care was consultative though she remained hemodynamically stable. She did have evidence of right heart strain on echocardiogram though the question of thrombolytics either systemically or locally was complicated by her recent eye surgeryand the necessity to keep her face down postoperatively. Her stroke symptoms have resolved and she will be admitted to the critical care service. She was started on a heparin drip. Final Assessment: Pulmonary embolism, TIA CRITICAL CARE DOCUMENTATION: Is there a high potential of sudden, clinically significant, or life threatening deterioration? yes Are there life and/or organ supporting interventions that require frequent personal assessment and manipulation or support to treat/prevent vital organ failure/deterioration? yes I personally performed 35 minutes of aggregate critical care time exclusive of procedures and teaching during this emergency department visit. This includes time spent during direct patient evaluation and reassessment, interpreting diagnostic tests, directing life and/or organ supporting interventions, and documentation. Cody Candelario MD 07/16/16 8923 documented in this encounter Miscellaneous Notes Plan of Care - Karin Seth OTA - 07/22/2016 11:00 AM EST Problem: Patient Care Overview Goal: Plan of Care Review Outcome: Ongoing (Interventions Implemented as Appropriate) 07/21/16 1427 07/22/16 1000 Coping/Psychosocial Plan Of Care Reviewed With -- patient Plan of Care Review Progress progress towards functional goals is fair -- Occupational Therapy Treatment Note Treatment Number: 3 Pertinent History of Current Problem: Carol Keller is a 66 y.o. female with PMH of CLL, diet controlled diabetes, recent vitrectomy who presented with submassive PE and stroke, s/p tPA (given for PE) complicated by ocular bleed and thigh hematoma. Precautions/Restrictions: fall, other (see comments) (bleeding) Precautions Comments: fall risk, bleeding precautions Assessment: Pt seen for skilled occupational therapy interventions today. Pt progressing slowly towards OT goals. Pt very willing and motivated to work with therapy today. Pt reported that she had beenable to complete ADL tasks sitting in bathroom with assist from [employer]SE[employer] TRIMMING MACHINE OPERATOR this morning. Pt agreeable to mobilize in hallway with chair following. Pt able to mobilize with fww, cga and vc a functional household distance ~75ft before requiring seated rest break. Pt was very fatigue with some SOB. Pt transported in chair back to room 2' fatigue. Pt could benefit from inpatient rehab stay at this time once medically ready for dc to assist with reaching her PLOF and OT goals. Pt will benefit from ongoing therapeutic interventions to achieve pt's and therapy goals. Please refer to associated flowsheet data fortreatment session details. Therapy Frequency: 2-3 times/wk Anticipated Equipment Needs at Discharge: shower chair Anticipated Discharge Disposition: inpatient rehabilitation facility Pager: [phone] THERESA Muñiz 07/22/2016 Occupational Therapy Rehabilitation Department Plan of Care - Hamida Roque RN - 07/22/2016 3:38 AM EST Problem: Patient Care Overview Goal: Plan of Care Review OUTCOME EVALUATION NOTE: OUTCOME SUMMARY: Pt A/O x 4, very pleasant. R eye continues to have small amounts of serosanguinous drainage. Given scheduled drops and ointment per JUL. q4 neruo checks WDL, with exception to R eye. Pt c/o pain in L leg. Given PRN 10 mg liquid oxy with good effect. Remarkable bruising through upper left left, and left flank/abdominal region. Pt reports bruising is improving. Pt voiding tea colored, clear urine. Given scheduled bowel medications. Pt requested fleet enema at 0530. Given with some effect, one small, soft BM post enema. Ambulating with stand by assist and FWW. Using leg lift device to help mobilize left leg. Maintained bleeding precautions, no signs of bleeding. No other events overnight. Will continue to monitor and notify with any changes. PLAN MOVING FORWARD: q4 neuro checks, eye drops/ointments, pain management, monitor for signs of bleeding, discharge planning as appropriate INDIVIDUALIZED FALL PREVENTION INTERVENTIONS: Patient-specific fall risk factors per assessment: [current deficits]: LLE weakness/ impaired mobility Assistance [level of assistance required for transfers and ambulation]: FWW, stand by, leg lift device Supervision [direct monitoring required during toileting and ADLs]: Hands on Surveillance [continuous indirect monitoring]: Hourly rounding, call aguillon in reach, pt room near unit station Patient-specific fall prevention interventions for sensory deficits provided, if applicable: [X] No CPG GOAL OUTCOME EVALUATION: Plan of Care - Noelle Jamison RN - 07/21/2016 8:13 PM EST Problem: Patient Care Overview Goal: Plan of Care Review Outcome: Ongoing (Interventions Implemented as Appropriate) 07/21/16 1420 07/21/16 1427 Coping/Psychosocial Plan Of Care Reviewed With patient;daughter -- Plan of Care Review Progress -- progress towards functional goals is fair OUTCOME EVALUATION NOTE: OUTCOME SUMMARY: Pt reports she feels she is moving much better today. Worked with PT/OT. Up in chair this am, to andfrom bedside commode with 2 person assist and use of walker. Ambulated to bathroom with PT. Medicated with prn oxy for reports of pain. Reports effectiveness. CT of abd/ pelvis and femur done. Small formed stool after bowel meds given. PLAN MOVING FORWARD: PT/OT. Pain management. Continue to give bowel meds. Eye meds as ordered. INDIVIDUALIZED FALL PREVENTION INTERVENTIONS: Patient-specific fall risk factors per assessment: [current deficits]: Pain, medications, impaired mobility Assistance [level of assistance required for transfers and ambulation]: 2 assist with walker Supervision [direct monitoring required during toileting and ADLs]: Pt calls appropriately when up to BSC. Surveillance [continuous indirect monitoring]: Purposeful rounding, bed alarm Patient-specific fall prevention interventions for sensory deficits provided, if applicable: no CPG GOAL OUTCOME EVALUATION: Goal: Individualization & Mutuality Outcome: Ongoing (Interventions Implemented as Appropriate) 07/14/16 1530 Mutuality/Individual Preferences What Anxieties, Fears or Concerns Do You Have About Your Health or Care? none What Questions Do You Have About Your Health or Care? none What Information Would Help Us Give You More Personalized Care? must stay on left side or prone Goal: Fall Prevention-Safe Patient Handling Outcome: Ongoing (Interventions Implemented as Appropriate) 07/21/16 0800 07/21/16 1420 Jerry Fall Risk History of Falling -- 25 Secondary Diagnosis -- 15 Ambulatory Aids -- 15 Intravenous Therapy/Heparin/Saline Lock -- 20 Gait/Transferring -- 10 Mental Status -- 0 Score -- 85 OTHER Jerry Fall Risk -- High Restraint Interventions Safety Promotion/Fall Prevention -- nonskid shoes/slippers when out of bed;fall prevention program maintained;safety round/check completed;muscle strengthening facilitated Positioning Body Position supine -- Goal: Infection Control Outcome: Ongoing (Interventions Implemented as Appropriate) 07/21/16 1420 Safety Interventions Isolation Precautions standard precautions maintained Infection Prevention single patient room provided;environmental surveillance performed Coping Strategies Supportive Measures active listening utilized;positive reinforcement provided;goal setting facilitated;verbalization of feelings encouraged;self- reflection promoted;self-care encouraged;relaxation techniques promoted Goal: Discharge Needs Assessment Outcome: Ongoing (Interventions Implemented as Appropriate) 07/14/16 1530 Living Environment Transportation Available car Problem: Skin Integrity Impairment, Risk/Actual (Adult) Goal: Skin Integrity/Wound Healing Patient will demonstrate the desired outcomes by discharge/transition of care. Outcome: Ongoing (Interventions Implemented as Appropriate) 07/21/162000 Skin Integrity Impairment, Risk/Actual (Adult) Skin Integrity/Wound Healing making progress toward outcome Problem: Thrombolytic Therapy (Adult) Goal: Signs and Symptoms of Listed Potential Problems Will be Absent, Minimized or Managed (Thrombolytic Therapy) Signs and symptoms of listed potential problems will be absent, minimized or managed by discharge/transition of care (reference Thrombolytic Therapy (Adult) CPG). Outcome: Ongoing (Interventions Implemented as Appropriate) 07/15/16 0800 Thrombolytic Therapy Problems Assessed (Thrombolytic Therapy) all Problems Present (Thrombolytic Therapy) other (see comments) (bruising, hematoma) Plan of Care - Maria M Traore PT - 07/21/2016 4:10 PM EST Problem: Patient Care Overview Goal: Plan of Care Review Outcome: Ongoing (Interventions Implemented as Appropriate) 07/21/16 1420 Coping/Psychosocial Plan Of Care Reviewed With patient;daughter Plan of Care Review Progress improving Physical Therapy Assessment Pt seen for skilled PT Treatment Number: (evaluation) Please see the Rehab Evaluation Summaries report for objective data and specifics of today???s session. Pt cont. With limited (L) LE ROM, progressing steadily with mobility. Pertinent History of Current Problem: 66 yr old female adm 07/14 with (L) LE hematoma, PE?TIA s/p vitrectomy OD 3 days [employer]AYUP WORK[employer] Staff Mobility Recommendations: Encourage increasing mobility and participation in self care. Precautions/Restrictions: fall (pain, bleeding precautions) , pt allowed short time in supine (procedures), cont. With(L) sidelying Anticipated Physical Therapy Frequency: 3-5 times/wk Pager:[phone] MARIA M TRAORE, PT 07/21/2016 Inpatient Physical Therapy Problem: Acute Rehab Services Goal & Intervention Plan Goal: Bed Mobility Goal Stand Alone Therapy Goal Outcome: Ongoing (Interventions Implemented as Appropriate) 07/19/16 1044 Bed Mobility Goal Bed Mobility Goal, Date Established 07/19/16 Bed Mobility Goal, Time to Achieve 1 wk Bed Mobility Goal, Activity Type supine to sit/sit to supine Bed Mobility Goal, [place] Level supervision required;set up required Bed Mobility Goal, Assistive Device (HOB ~30 degrees) Goal: Gait Training Goal Stand Alone Therapy Goal Outcome: Ongoing (Interventions Implemented as Appropriate) 07/19/16 1044 07/21/16 1420 Gait Training Goal Gait Training Goal, Date Established 07/19/16 -- Gait Training Goal, Time to Achieve 2 wks -- Gait Training Goal, [place] Level supervision required;verbal cues required -- Gait Training Goal, Assist Device walker, rolling -- Gait Training Goal, Distance to Achieve 50' -- Gait Training Goal, Outcome goal ongoing -- Gait Training Goal, Reason Goal Not Met -- (progressing) Goal: Goal Transfer Training Stand Alone Therapy Goal Outcome: Ongoing (Interventions Implemented as Appropriate) 07/19/16 1044 07/21/16 1420 Goal Transfer Training Transfer Training Goal, Date Established 07/19/16 -- Transfer Training Goal, Time to Achieve 2 wks -- Transfer Training Goal, Activity Type [id number] -- Transfer Train Goal, [place] Level supervision required;verbal cues required -- Transfer Training Goal, Assist Device walker, tomas -- Transfer Training Goal, Outcome goal ongoing -- Transfer Train Goal, Reason Goal Not Met -- (progressing) Consult Note - Jayne Fitzgerald RN - 07/21/2016 1:04 PM EST Certified Wound Care Nurse Rounding Note Requested to see this patient by Noelle Jamison RN for low Saul score, 15. Discussed patient with nurse upon arrival to the unit, the patient has no skin issues except for a large thigh hematoma, no open wounds. Patient is being repositioned every two hours, heels floated. Issues/concerns identified: none Wound Care Recommendations: Refer to adult/pediatric pressure ulcer prevention job aid in the clinical policy library Wound care consult will be completed at this time. Discussed with RN: Noelle Jamison Plan of Care - Karin Seth OTA - 07/21/2016 9:00 AM EST Problem: Patient Care Overview Goal: Plan of Care Review Outcome: Ongoing (Interventions Implemented as Appropriate) 07/21/16 0416 07/21/16 1427 Coping/Psychosocial Plan Of Care Reviewed With patient -- Plan of Care Review Progress -- progress towards functional goals is fair Occupational Therapy Treatment Note Treatment Number: 2 Pertinent History of Current Problem: Carol Keller is a 66 y.o. female with PMH of CLL, diet controlled diabetes, recent vitrectomy who presented with submassive PE and stroke, s/p tPA (given for PE) complicated by ocular bleed and thigh hematoma. Precautions/Restrictions: (fall (no supine positioning, allowed prone and (L) sidelying) Precautions Comments: fall risk, bleeding precautions Assessment: Pt seen today for skilled occupational therapy interventions. Session focused on increasing endurance and activity tolerance to promote health maintenance. Pt tolerated session well, she was able to sit at EOB ~15 min, she doffed/donned maya gown with set up. She attempted to mobilize tobathroom but stated she felt too fatigued and needed to sit. Pt appeared very anxious once seated displaying rapid short breaths and shakiness, pt education and training provided for pursed lip breathing and relaxation visualization to assist with anxiety and coping. Pt will benefit from ongoing therapeutic interventions to achieve pt's and therapy goals. Please refer to associated flowsheet data for treatment session details. Therapy Frequency: 2-3 times/wk Anticipated Equipment Needs at Discharge: shower chair Anticipated Discharge Disposition: inpatient rehabilitation facility Pager: [phone] THERESA Muñiz 07/21/2016 Occupational Therapy Rehabilitation Department Problem: Acute Rehab Services Goal & Intervention Plan Goal: Home Management Goal Stand Alone Therapy Goal Outcome: Ongoing (Interventions Implemented as Appropriate) 07/19/16 1240 07/21/161426 Home Management Goal Home Mgmt Goal, Date Established 07/19/16 -- Home Mgmt Goal, Time To Achieve 2 wks -- Home Mgmt Goal, Activity Type Pt will ambulate household distance with supervision and use of least restrictive device -- Home Mgmt Goal, Outcome Achieved -- goal ongoing Goal: LB Dressing Goal Stand Alone Therapy Goal Outcome: Ongoing (Interventions Implemented as Appropriate) 07/19/16 1240 07/21/16 1427 LB Dressing Goal LB Dressing Goal, Date Established 07/19/16 -- LB Dressing Goal, Time to Achieve 2 wks -- LB Dressing Goal, Activity Type Pt will dress LB with conditional independence and use of AE as needed -- LB Dressing Goal, Outcome -- goal ongoing Goal: Toileting Goal Stand Alone Therapy Goal Outcome: Ongoing (Interventions Implemented as Appropriate) 07/19/16 1240 07/21/161426 Toileting Goal Toileting Goal, Date Established 07/19/16 -- Toileting Goal, Time to Achieve 2 wks -- Toileting Goal, Activity Type Pt will transfer on/off toilet with supervision and use of least restrictive device -- Toileting Goal, Outcome -- goal ongoing Plan of Care - Mary Donis RN - 07/21/2016 4:31 AM EST Problem: Patient Care Overview Goal: Plan of Care Review Outcome: Ongoing (Interventions Implemented as Appropriate) 07/21/16 0416 Coping/Psychosocial Plan Of Care Reviewed With patient Plan of Care Review Progress no change OUTCOME EVALUATION NOTE: OUTCOME SUMMARY: A/O X4. Calm and cooperative. Appeared to rest comfortably between care. MRI done early in shift. Ptw/ increased pain to LLE w/ activity/mobility. 6-12/29. PRN oxycodone utilized ~q4h. Woken up for pain meds per pt request. No change w/ neuro checks. Pt does report being able to open R eye more this shift. Also reports being able to see a little out of the R eye. Shadows. Drops as ordered (see MAR). X2 assist stand pivot to BSC. Left side lying while in bed. Will cont to monitor and report w/ changes. PLAN MOVING FORWARD: Q4h neuro checks. Pain management. Encourage/assist w/ activity/mobility. Maintain mobility/positional restrictions. INDIVIDUALIZED FALL PREVENTION INTERVENTIONS: Patient-specific fall risk factors per assessment: [current deficits]: At risk to fall based on scoring system. Non skid socks worn. Call light w/ in reach. Bed in low position. Bed alarm in place. Area free of clutter. Will cont to monitor. Assistance [level of assistance required for transfers and ambulation]: X2 assist stand pivot to BSC. Supervision [direct monitoring required during toileting and ADLs]: Hands on, eyes on. Surveillance [continuous indirect monitoring]: Purposeful rounding, room near nurses' station. Patient-specific fall prevention interventions for sensory deficits provided, if applicable: [X] N/A CPG GOAL OUTCOME EVALUATION: Plan of Care - Noelle Jamison RN - 07/20/2016 6:33 PM EST Problem: Patient Care Overview Goal: Plan of Care Review Outcome: Ongoing (Interventions Implemented as Appropriate) 07/20/16 0355 07/20/16 1303 Coping/Psychosocial Plan Of Care Reviewed With -- patient Plan of Care Review Progress no change -- OUTCOME EVALUATION NOTE: OUTCOME SUMMARY: Pt up with 2 assist to and from BSC/ stand pivot. Medicated with pain meds prn. 1 unit PRBC's given for hgb 7.0, tolerated well. Off unit to eye clinic. Daughter at bedside most of the day, attentive to pt. PLAN MOVING FORWARD: Continue to offer emotional support. PT/OT. MRI pending. Continue bowel meds prn. Monitor labs. INDIVIDUALIZED FALL PREVENTION INTERVENTIONS: Patient-specific fall risk factors per assessment: [current deficits]: Impaired mobility, pain, medications Assistance [level of assistance required for transfers and ambulation]: 2 person assist stand pivot Supervision [direct monitoring required during toileting and ADLs]: Hands on , eyes on Surveillance [continuous indirect monitoring]: Purposeful rounding, bed alarm Patient-specific fall prevention interventions for sensory deficits provided, if applicable: YES CPG GOAL OUTCOME EVALUATION: Goal: Individualization & Mutuality Outcome: Ongoing (Interventions Implemented as Appropriate) 07/14/16 1530 Mutuality/Individual Preferences What Anxieties, Fears or Concerns Do You Have About Your Health or Care? none What Questions Do You Have About Your Health or Care? none What Information Would Help Us Give You More Personalized Care? must stay on left side or prone Goal: Fall Prevention-Safe Patient Handling Outcome: Ongoing (Interventions Implemented as Appropriate) 07/19/16 2131 07/20/16 0730 Jerry Fall Risk History of Falling 25 -- Secondary Diagnosis 15 -- Ambulatory Aids 15 -- Intravenous Therapy/Heparin/Saline Lock 20 -- Gait/Transferring 10 -- Mental Status 0 -- Score 85 -- OTHER Jerry Fall Risk High -- Restraint Interventions Safety Promotion/Fall Prevention -- activity supervised;safety round/check completed;nonskid shoes/slippers when out of bed;fall prevention program maintained Positioning Body Position -- side-lying, left Goal: Infection Control Outcome: Ongoing (Interventions Implemented as Appropriate) 07/20/16 0730 07/20/16 1303 Safety Interventions Isolation Precautions standard precautions maintained -- Infection Prevention environmental surveillance performed;single patient room provided -- Coping Strategies Supportive Measures -- active listening utilized;goal setting facilitated;relaxation techniques promoted;self-responsibility promoted;self- care encouraged;verbalization of feelings encouraged;positive reinforcement provided Goal: Discharge Needs Assessment Outcome: Ongoing (Interventions Implemented as Appropriate) 07/14/16 1530 Living Environment Transportation Available car Problem: Skin Integrity Impairment, Risk/Actual (Adult) Goal: Skin Integrity/Wound Healing Patient will demonstrate the desired outcomes by discharge/transition of care. Outcome: Ongoing (Interventions Implemented as Appropriate) 07/20/16 0354 Skin Integrity Impairment, Risk/Actual (Adult) Skin Integrity/Wound Healing making progress toward outcome Problem: Thrombolytic Therapy (Adult) Goal: Signs and Symptoms of Listed Potential Problems Will be Absent, Minimized or Managed (Thrombolytic Therapy) Signs and symptoms of listed potential problems will be absent, minimized or managed by discharge/transition of care (reference Thrombolytic Therapy (Adult) CPG). Outcome: Ongoing (Interventions Implemented as Appropriate) 07/15/16 0800 Thrombolytic Therapy Problems Assessed (Thrombolytic Therapy) all Problems Present (Thrombolytic Therapy) other (see comments) (bruising, hematoma) Consult Note - Pavan Coffey MD - 07/20/2016 10:01 AM EST Patient Name: Carol Keller Patient Age: 66 y.o. Birthdate: 1950 Admit date: 07/14/2016 Attending Physician: Lizeth Campbell MD Status post macular hole surgery right eye. Currently stable Currently hospitalized with pulmonary embolus. Anticoagulation has yielded alterable hemorrhages including periocular hemorrhages but no retrobulbar or intraocular hemorrhage is defined Anterior segment is quiet with cataract 40% gas bubble Macular anatomy appears stable at this time with hole closure Retina flat 360 No hemorrhages Patient should avoid laying flat on back for more than 1-2 hours at a time Pred forte twice a day for 2 weeks or until out Continue to use ointment as needed for comfort including foreign body sensation which may be resulting from dissolving Vicryl sutures and the conjunctiva Recommend artificial tears 4 times a day and artificial tear ointment at night Return to retina service 2-3 weeks for dilated exam or sooner if any decrease in vision or other related changes Page ophthalmology on-call stat if severe and profound ocular swelling and protrusion. Pavan Coffey M.D. Plan of Care - Mary Donis RN - 07/20/2016 4:10 AM EST Problem: Patient Care Overview Goal: Plan of Care Review Outcome: Ongoing (Interventions Implemented as Appropriate) 07/20/16 0355 Coping/Psychosocial Plan Of Care Reviewed With patient Plan of Care Review Progress no change OUTCOME EVALUATION NOTE: OUTCOME SUMMARY: A/O X4. Calm and cooperative. Appeared to rest comfortably between care. Neuro checks unchanged. Eyedrops as ordered. Weakness and pain in LLE. RYDER wrap in place. Pain 10/10 after activity. PRN oxycodone ~q4h w/ good effect. Pain decreased to 3-4/10 following internal medicine nurse per pt report. Desat to mid 80son RA when sleeping. Independently recovered w/ out intervention. 2L NC applied while asleep. OOB X1-2 assist stand pivot to BSC. Left side lying w/ pillow supports. Will cont to monitor and report w/ changes. PLAN MOVING FORWARD: Opthalmology appointments at 0800 and 1245. Q4h neuro checks. Encourage/assist w/ activity/mobility.Maintain mobility/positional restrictions. INDIVIDUALIZED FALL PREVENTION INTERVENTIONS: Patient-specific fall risk factors per assessment: [current deficits]: At risk to fall based on scoring system. Non skid socks worn. Call light w/ in reach. Bed in low position. Bed alarm in place. Area free of clutter. Will cont to monitor. Assistance [level of assistance required for transfers and ambulation]: X2 assist stand pivot to BSC. Supervision [direct monitoring required during toileting and ADLs]: Hands on, eyes on. Surveillance [continuous indirect monitoring]: Purposeful rounding, room near nurses' station. Patient-specific fall prevention interventions for sensory deficits provided, if applicable: [X] N/A CPG GOAL OUTCOME EVALUATION: Plan of Care - Maria M Traore PT - 07/19/2016 3:51 PM EST Problem: Patient Care Overview Goal: Plan of Care Review Outcome: Ongoing (Interventions Implemented as Appropriate) 07/19/16 1044 Coping/Psychosocial Plan Of Care Reviewed With patient;daughter Physical Therapy Assessment Pt seen for skilled PT Treatment Number: (evaluation) Please see the Rehab Evaluation Summaries report for objective data and specifics of today???s session. Pt cooperative, motivated to increase activity. (L) LE pain hindering pt's mobility. Pt will benefit from short term rehab stay prior to discharge home. Pertinent History of Current Problem: 66 yr old female adm 07/14 with (L) LE hematoma, PE?TIA s/p vitrectomy OD 3 days [employer] WORK[employer] Staff Mobility Recommendations: Encourage mobility per pt sam, increase participation in self care. Precautions/Restrictions: fall (no supine positioning, allowed prone and (L) sidelying only) Anticipated Physical Therapy Frequency: 3-5 times/wk Pager: [phone] MARIA M TRAORE, PT 07/19/2016 Inpatient Physical Therapy Problem: Acute Rehab Services Goal & Intervention Plan Goal: Bed Mobility Goal Stand Alone Therapy Goal Outcome: Ongoing (Interventions Implemented as Appropriate) 07/19/16 1044 Bed Mobility Goal Bed Mobility Goal, Date Established 07/19/16 Bed Mobility Goal, Time to Achieve 1 wk Bed Mobility Goal, Activity Type supine to sit/sit to supine Bed Mobility Goal, [place] Level supervision required;set up required Bed Mobility Goal, Assistive Device (HOB ~30 degrees) Goal: Gait Training Goal Stand Alone Therapy Goal Outcome: Ongoing (Interventions Implemented as Appropriate) 07/19/16 1044 Gait Training Goal Gait Training Goal, Date Established 07/19/16 Gait Training Goal, Time to Achieve 2 wks Gait Training Goal, [place] Level supervision required;verbal cues required Gait Training Goal, Assist Device walker, rolling Gait Training Goal, Distance to Achieve 50' Gait Training Goal, Outcome goal ongoing Goal: Goal Transfer Training Stand Alone Therapy Goal Outcome: Ongoing (Interventions Implemented as Appropriate) 07/19/16 1044 Goal Transfer Training Transfer Training Goal, Date Established 07/19/16 Transfer Training Goal, Time to Achieve 2 wks Transfer Training Goal, Activity Type [id number]-[id number]/[id number];[id number]-is-[id number]/gmhxf-up-bio Transfer Train Goal, [place] Level supervision required;verbal cues required Transfer Training Goal, Assist Device walker, rolling Transfer Training Goal, Outcome goal ongoing Plan of Care - Carol Baptiste - 07/19/2016 1:30 PM EST Problem: Patient Care Overview Goal: Plan of Care Review Outcome: Ongoing (Interventions Implemented as Appropriate) 07/19/16 1240 Coping/Psychosocial Plan Of Care Reviewed With patient;daughter Occupational Therapy Evaluation Pertinent History of Current Problem: Carol Keller is a 66 y.o. female with PMH of CLL, diet controlled diabetes, recent vitrectomy who presented with submassive PE and stroke, s/p tPA (given for PE) complicated by ocular bleed and thigh hematoma. Precautions Comments: fall risk, bleeding precautions Occupational Profile: Pt lives alone but will be staying with her son after d/c. 3 steps without rail to enter home. Pt bedroom on first floor. Bathroom with tubshower up full flight of stairs. Pt reports that she is independent with all ADLs at baseline and walks unassisted. 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 Pt's family is very involved and played an active role during the evaluation. Assessment: Pt has been seen by OT for evaluation, please refer to associated flowsheet data for details. Pt presents with impaired ability to perform daily activities and functional mobility secondaryto pain, decreased range of motion and decreased activity tolerance. Pt cooperative and motivated toget OOB. Pt [id number] with conditional independence and use of leg area development consultant, but c/o pain. Able tostand with CGA and pivot to chair with supervision and use of rolling walker. Pt is dependent for LBdressing at this time. Pt would benefit from ongoing OT interventions to increase independence with self care and progress functional mobility while hospitalized. Therapy Frequency: 2-3 times/wk Anticipated Equipment Needs at Discharge: shower chair Anticipated Discharge Disposition: (rehab facility) [facility] Occupational Therapy Rehabilitation Department Problem: Acute Rehab Services Goal & Intervention Plan Goal: Home Management Goal Stand Alone Therapy Goal Outcome: Ongoing (Interventions Implemented as Appropriate) 07/19/16 1240 Home Management Goal Home Mgmt Goal, Date Established 07/19/16 Home Mgmt Goal, Time To Achieve 2 wks Home Mgmt Goal, Activity Type Pt will ambulate household distance with supervision and use of least restrictive device Goal: LB Dressing Goal Stand Alone Therapy Goal Outcome: Ongoing (Interventions Implemented as Appropriate) 07/19/16 1240 LB Dressing Goal LB Dressing Goal, Date Established 07/19/16 LB Dressing Goal, Time to Achieve 2 wks LB Dressing Goal, Activity Type Pt will dress LB with conditional independence and use of AE as needed Goal: Toileting Goal Stand Alone Therapy Goal Outcome: Ongoing (Interventions Implemented as Appropriate) 07/19/16 1240 Toileting Goal Toileting Goal, Date Established 07/19/16 Toileting Goal, Time to Achieve 2 wks Toileting Goal, Activity Type Pt will transfer on/off toilet with supervision and use of least restrictive device Associated attestation - Polina Stuart OT - 07/19/2016 3:43 PM EST Patient status, treatment interventions, and goals discussed with student. I am in agreement with all details and associated flowsheet rows as documented and was present for all aspects of the patient treatment session. Polina Stuart, OTR/L Pager [phone] Plan of Care - Melissa Durant RN - 07/19/2016 12:55 PM EST Problem: Patient Care Overview Goal: Plan of Care Review Outcome: Ongoing (Interventions Implemented as Appropriate) 07/16/16 1529 Plan of Care Review Progress improving OUTCOME EVALUATION NOTE: OUTCOME SUMMARY: Pt A&O throughout shift. Neuro check remain unchanged. Eye drops administered as ordered. Pt refusing refresh drops throughout shift. 10mg oxycodone and ice applied throughout shift for left thigh pain. Ryder bandage remains in place and LLE is pale, warm w/ good pulses. Pt OOB to chair w/ PT, and remained up in chair for the afternoon. Pt premedicated prior w/ Zofran and oxycodone w/ good effect. Transport arranged for ophthalmology appointments tomorrow morning. Family at bedside throughout shift. Pt moved to private room this evening. Safety maintained. PLAN MOVING FORWARD: q4hr neuro checks. Continue lying on left side. Encourage independence and mobility. INDIVIDUALIZED FALL PREVENTION INTERVENTIONS: Patient-specific fall risk factors per assessment: [current deficits]: Generalized weakness, LLE pain, nausea, lightheadedness Assistance [level of assistance required for transfers and ambulation]: 2 assist stand pivot Supervision [direct monitoring required during toileting and ADLs]: Hands on Surveillance [continuous indirect monitoring]: Purposeful rounding, environmental surveillance, bed & chair alarm Patient-specific fall prevention interventions for sensory deficits provided, if applicable: [X] Yes CPG GOAL OUTCOME EVALUATION: Plan of Care - Jeri Ndiaye RN - 07/19/2016 6:41 AM EST Problem: Patient Care Overview Goal: Plan of Care Review Outcome: Ongoing (Interventions Implemented as Appropriate) OUTCOME EVALUATION NOTE: OUTCOME SUMMARY: Carol has had a fair night. A&Ox4 calm and cooperative. VSS. Pt tolerated medications and eye drops well. Pt c/o pain in her L thigh overnight receiving pain medications and antiemetics with fair results. OOB to commode, experienced pain with movement. Neuro checks unchanged. LLE warm with good pulses. Will continue to monitor. PLAN MOVING FORWARD: Encourage movement. Treat pain and nausea as needed. Encourage PO intake. Monitor eye. Q4 neuro checks. INDIVIDUALIZED FALL PREVENTION INTERVENTIONS: Patient-specific fall risk factors per assessment: [current deficits]: High fall risk Assistance [level of assistance required for transfers and ambulation]: Walker Supervision [direct monitoring required during toileting and ADLs]: 2 assist hands on Surveillance [continuous indirect monitoring]: Purposeful rounding Patient-specific fall prevention interventions for sensory deficits provided, if applicable: [X] No CPG GOAL OUTCOME EVALUATION: Plan of Care - Melissa Durant RN - 07/18/2016 5:15 PM EST Problem: Patient Care Overview Goal: Plan of Care Review Outcome: Ongoing (Interventions Implemented as Appropriate) 07/16/16 1529 07/18/16 0800 Coping/Psychosocial Plan Of Care Reviewed With -- patient;daughter Plan of Care Review Progress improving -- OUTCOME EVALUATION NOTE: OUTCOME SUMMARY: Pt A&O throughout shift. Neuro checks remain unchanged. Pt reported 10/10 left leg. Morphine administered w/ poor effect. Team aware. Oxycodone dose increased. 10mg oxycodone administered this evening & ice pack applied to LLE w/ good effect. Zofran administered x1 for nausea. Hgb 6.9. 1 unit PRBC administered this afternoon. SBP increased from 106-127 after 15 minute recheck. Ok to continue with transfusion per MD. Pt remains left side lying. Head restrictions d/c per MD. Family at bedside throughout shift. Safety maintained. PLAN MOVING FORWARD: q4hr neuro checks. Continue lying on left side. Encourage independence and mobility. INDIVIDUALIZED FALL PREVENTION INTERVENTIONS: Patient-specific fall risk factors per assessment: [current deficits]: Generalized weakness, LLE pain, nausea, lightheadedness Assistance [level of assistance required for transfers and ambulation]: 2 assist stand pivot Supervision [direct monitoring required during toileting and ADLs]: Hands on Surveillance [continuous indirect monitoring]: Purposeful rounding, environmental surveillance, bed alarm Patient-specific fall prevention interventions for sensory deficits provided, if applicable: [X] Yes CPG GOAL OUTCOME EVALUATION: Plan of Care - Mary Bazna RN - 07/18/2016 7:05 AM EST Problem: Patient Care Overview Goal: Plan of Care Review Outcome: Ongoing (Interventions Implemented as Appropriate) 07/16/16 1529 07/17/16 2113 Coping/Psychosocial Plan Of Care Reviewed With -- patient;daughter Plan of Care Review Progress improving -- OUTCOME EVALUATION NOTE: OUTCOME SUMMARY: Pt alert and oriented rings appropriately for assistance. Pt reported pain 10/10 to left leg unrelieved by PRN tylenol 650 mg and PRN oxycodone 5 mg Q4 (see MAR). Poorly effected by tramadol 25 mg x2 for breakthrough pain. Zofran given PO and IV x2 with good results. Left eye continued to drain serosanguinous fluid, neuro checks unremarkable. Pt ambulated with assistance to commode (see doc flows). VSS. PLAN MOVING FORWARD: Pain management, treatments to right eye, Q4 neuro checks. INDIVIDUALIZED FALL PREVENTION INTERVENTIONS: Bed in lowest position, bed alarm, non-skid socks. Patient-specific fall risk factors per assessment: [current deficits]: Generalized weakness, severe mobility impairment to LLE, decreased vision. Assistance [level of assistance required for transfers and ambulation]: 1 assist stand pivot with walker. Supervision [direct monitoring required during toileting and ADLs]: Hands on. Surveillance [continuous indirect monitoring]: Hourly rounds, bed alarm. Patient-specific fall prevention interventions for sensory deficits provided, if applicable: [X] Yes CPG GOAL OUTCOME EVALUATION: Plan of Care - Grayson Winn, INSEAM TRIMMING MACHINE OPERATOR - 07/17/2016 2:50 PM EST Problem: Patient Care Overview Goal: Plan of Care Review Outcome: Ongoing (Interventions Implemented as Appropriate) 07/16/16 1529 07/17/16 0923 Coping/Psychosocial Plan Of Care Reviewed With -- patient Plan of Care Review Progress improving -- OUTCOME EVALUATION NOTE: OUTCOME SUMMARY: Pt A&Ox4, able to make needs known. VSS. Pt had BM today (see Intake/Output). Pt had dickson removed at approximately 1000. Pt has been c/o 10/10 pain in the left thigh throughout the shift. PRN acetaminophen and oxycodone administered as ordered as well as a 1x dose (see MAR). Right eye does not have any changes, continuing to put out serosanguinous drainage. Eye drops and ointment administered asordered (see MAR). Q4 neuro checks remain unchanged. PT and OT consults ordered today; pt sat up at the side of the bed for about an hour. No acute changes, will continue to monitor. PLAN MOVING FORWARD: - Monitor hemoglobin - Monitor hematoma - Monitor neuro checks - Monitor right eye - Tx to floor INDIVIDUALIZED FALL PREVENTION INTERVENTIONS: Patient-specific fall risk factors per assessment: [current deficits]: Decreased vision in right eye, hematoma in left leg, pain, generalized weakness Assistance [level of assistance required for transfers and ambulation]: 1 assist when in bed Supervision [direct monitoring required during toileting and ADLs]: Eyes on, hands on Surveillance [continuous indirect monitoring]: Telemetry, pulse oximetry, apnea, bed alarm, call [place] within reach Patient-specific fall prevention interventions for sensory deficits provided, if applicable: [X] N/A CPG GOAL OUTCOME EVALUATION: Goal: Individualization & Mutuality Outcome: Ongoing (Interventions Implemented as Appropriate) 07/14/16 1530 Mutuality/Individual Preferences What Anxieties, Fears or Concerns Do You Have About Your Health or Care? none What Questions Do You Have About Your Health or Care? none What Information Would Help Us Give You More Personalized Care? must stay on left side or prone Goal: Fall Prevention-Safe Patient Handling Outcome: Ongoing (Interventions Implemented as Appropriate) 07/17/1692207/17/16 1200 Jerry Fall Risk History of Falling 25 -- Secondary Diagnosis 15 -- Ambulatory Aids 15 -- Intravenous Therapy/Heparin/Saline Lock 20 -- Gait/Transferring 0 -- Mental Status 0 -- Score 75 -- OTHER Jerry Fall Risk High -- Restraint Interventions Safety Promotion/Fall Prevention -- activity supervised;fall prevention program maintained;nonskid shoes/slippers when out of bed;safety round/check completed Positioning Body Position -- supine Goal: Infection Control Outcome: Ongoing (Interventions Implemented as Appropriate) 07/17/16922 Safety Interventions Isolation Precautions standard precautions maintained Infection Prevention environmental surveillance performed;rest/sleep promoted;single patient room provided Coping Strategies Supportive Measures active listening utilized;goal setting facilitated;positive reinforcement provided;self-care encouraged;verbalization of feelings encouraged Goal: Discharge Needs Assessment Outcome: Ongoing (Interventions Implemented as Appropriate) 07/14/16 1530 Living Environment Transportation Available car Problem: Skin Integrity Impairment, Risk/Actual (Adult) Goal: Identify Related Risk Factors and Signs and Symptoms Related risk factors and signs and symptoms are identified upon initiation of Human Response Clinical Practice Guideline (CPG) Outcome: Ongoing (Interventions Implemented as Appropriate) 07/15/16 0536 Skin Integrity Impairment, Risk/Actual Skin Integrity Impairment, Risk/Actual: Related Risk Factors age extremes;fluid/nutrition status;sensory impairment Goal: Skin Integrity/Wound Healing Patient will demonstrate the desired outcomes by discharge/transition of care. Outcome: Ongoing (Interventions Implemented as Appropriate) 07/15/16 0537 Skin Integrity Impairment, Risk/Actual (Adult) Skin Integrity/Wound Healing making progress toward outcome Problem: Thrombolytic Therapy (Adult) Goal: Signs and Symptoms of Listed Potential Problems Will be Absent, Minimized or Managed (Thrombolytic Therapy) Signs and symptoms of listed potential problems will be absent, minimized or managed by discharge/transition of care (reference Thrombolytic Therapy (Adult) CPG). Outcome: Ongoing (Interventions Implemented as Appropriate) 07/15/16 0800 Thrombolytic Therapy Problems Assessed (Thrombolytic Therapy) all Problems Present (Thrombolytic Therapy) other (see comments) (bruising, hematoma) Plan of Care - Aiyana Olson RN - 07/16/2016 3:35 PM EST Problem: Patient Care Overview Goal: Plan of Care Review Outcome: Ongoing (Interventions Implemented as Appropriate) 07/16/16 1529 Coping/Psychosocial Plan Of Care Reviewed With patient;daughter Plan of Care Review Progress improving OUTCOME EVALUATION NOTE: OUTCOME SUMMARY: Patient remains A+Ox4. VSS, SBP ranging from mid 90's-100's. Patient asymptomatic, expressing feeling sleepy today and needing rest. Hemoglobin of 6.4, transfusion of 2 units PRBC's. Patient tolerated well, hemoglobin recheck of 8.4. IVF continue @ 100 mL/hr. Neuro checks remain unchanged, right eye continues with swelling and bloody drainage. Patient denies pain in eye, states only source of pain is left side, primarily the left thigh, but pain is tolerable. Acetaminophen administered x1. PLAN MOVING FORWARD: Monitor hemoglobin Pain control Intake and output Monitor any changes in neuro checks (visual changes). INDIVIDUALIZED FALL PREVENTION INTERVENTIONS: Patient-specific fall risk factors per assessment: [current deficits]: Generalized weakness, alteredvision Assistance [level of assistance required for transfers and ambulation]: 1-2 assist Supervision [direct monitoring required during toileting and ADLs]: 1-2 assist Surveillance [continuous indirect monitoring]: Room near unit station, alarms active and audible Patient-specific fall prevention interventions for sensory deficits provided, if applicable: No CPG GOAL OUTCOME EVALUATION: Consult Note - Stefania Ingram MD - 07/15/2016 11:49 AM EST Hematology Consult Note Patient ID: Carol Keller Attending: Regina Hill MD Reason for consult: We are seeing Ms. Keller at the request of Regina Chacon MD to evaluate forPE. I have reviewed all available records, interviewed and examined the patient. History of Present Illness: Ms. Keller is a 66 y.o. female with h/o CLL (on observation) and recent retinal surgery 07/11/2016 who was admitted to the ICU yesterday with new saddle PE s/p TPA administration. Hematologic History: -Diagnosed with CLL (chronic lymphocytic leukemia) in 12/2008 -WBC 27K at presentation, P-53, CD38, and [place] 70 negative -Cytogenetics with 13 deletion (favorable prognosis) -Has been on observation on with Dr. Livingston and last seen 06/06/2016 with WBC 158.7K. Ms Keller presented to the ED yesterday with symptoms of dizziness, light- headedness, and shortnessof breath which started when she awoke at 7:15 yesterday morning. Family also noted slurring of words, left facial droop, and left arm weakness/numbness thus they called EMS and the patient was taken to the [facility]. The patient was noted to by tachycardic to the 90-100s and sats were 80% on RA. She was evaluated by neurology urgently given concern for stroke but TPA was initially held as the patientsneurologic symptoms were improving. Head CT revealed no acute abnormalities. Head MRI revealed a punctate focus acute ischemic in the posterior right frontal lobe. MRI angiogram has been ordered but not completed. Chest CT revealed a large saddle embolism with evidence of right heart strain. Given saddle embolism, TPA was then administered yesterday morning at 8:45am. She was then admitted to the ICUfor Q1hr neuro checks and supplemental oxygen. She was started on a heparin drip as well as aspirin.She was seen this morning by ophthalmology as she was noted to have conjunctival hemorrhage from recent retinal surgery. Hematology is consulted to assess if hyperviscosity from CLL is contributing to thrombosis. Review of Systems: 10 point ROS negative unless otherwise noted in HPI. Past Medical/Surgical History: Past Medical History Diagnosis Date ??? Cancer ??? Cardiac disease ??? CLL (chronic lymphocytic leukemia) ??? Diabetes mellitus dx ~2010 ??? Diabetes mellitus ??? Disease of blood and blood forming organ ~2008 leukemia CLL ??? GERD (gastroesophageal reflux disease) ??? 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 SVT (supraventricular tachycardia) ??? Unspecified diseases of blood and blood-forming organs ??? Verruca vulgaris 03/08/2013 Past Surgical History Procedure Laterality Date ??? Focal laser treatment 08/14/2012 OD for ret tear ??? Laser surgery 08/14/2012 FOCAL,OD ??? Retinopathy surgery Right 07/11/2016 PPV/MP with Intraocular Tamponade OD per CBC for [place] ??? Retinal detachment surgery ??? Pro vitrectomy pars plana remove int memb retina Right 07/11/2016 VITRECTOMY, W/ MEMBRANE STRIPPING, INTRAOCULAR TAMPONADE (WRVU 16.33) performed by Pavan C[facility]y MD [facility] Medications: Prescriptions Prior to Admission Medication Sig Dispense Refill Last Dose ??? moxifloxacin (VIGAMOX) 0.5 % Drops Place 1 drop into the right eye 4 times daily. 07/14/2016 at Unknown time ??? prednisoLONE acetate (PRED FORTE) 1 % Drops, Suspension Place 1 drop into the right eye 4 times daily. 07/14/2016 at Unknown time ??? kpbdcyiu-ywelkegjr-bissqxqpcyzok (DEXACINE) 3.5 mg/g-10,000 unit/g-0.1 % Ointment Place 1 Tube into the right eye nightly as needed. 07/14/2016 at Unknown time ??? estradiol (ESTRACE) 0.5 mg Tablet Take 0.5 mg by mouth daily. Indications: estrogen replacement 07/14/2016 at Unknown time ??? aspirin 81 mg Tablet, Delayed Release (E.C.) Take 81 mg by mouth daily. 07/14/2016 at Unknown time ??? melatonin 3 mg Tab Take 3 mg by mouth nightly as needed. 07/14/2016 at Unknown time ??? imipramine (TOFRANIL) 10 mg tablet Take 10 mg by mouth 2 times daily. 07/14/2016 at Unknown time ??? multivitamin capsule Take 1 capsule by mouth daily. 07/14/2016 at Unknown time ??? Cholecalciferol, Vitamin D3, (VITAMIN D) 2,000 unit Cap Take 2,000 mg by mouth. 07/14/2016 at Unknown time ??? omeprazole (PRILOSEC) 20 mg capsule 07/14/2016 at Unknown time ??? cycloSPORINE (RESTASIS) 0.05 % ophthalmic emulsion 07/14/2016 at Unknown time ??? Green Tea Extract 500 mg Cap Take 500 mg by mouth daily. Taking ??? Glucosamine Sulfate 500 mg Tab Taking Allergies: Allergies Allergen Reactions ??? Penicillins Rash ??? Sulfa (Sulfonamide Antibiotics) CIS - Unknown ??? Penicillins CIS - Rash Family History: Family History Problem Relation Age of Onset ??? Strabismus Brother ??? Thyroid Disease Mother ??? Cataracts Mother ??? Macular Degeneration Mother ??? Diabetes Mother ??? Hypertension Mother ??? Glaucoma Father borderline glaucoma ??? Cancer Father lung ??? Diabetes Maternal Grandmother ??? Diabetes Paternal Grandmother ??? Amblyopia Neg Hx ??? Retinal Detachment Neg Hx ??? Heart Disease Neg Hx Social History: Social History Substance Use Topics ??? Smoking status: Never Smoker ??? Smokeless tobacco: Never Used ??? Alcohol use Yes Comment: once per year Physical Examination Vitals: Temp: [36.4 ??C (97.5 ??F)-37 ??C (98.6 ??F)] Heart Rate: [71-110] BP: (92-158)/(41-91) Resp: [11-26] SpO2: [90 %-99 %] General: Well appearing, in NAD Head/Eyes: PERRLA, No conjunctival injection, EOMI ENT: no OP lesions/exudates Neck: Supple, full ROM CV: RRR, no murmur/gallops/rubs Pulm: Non-labored, CTAB Abd: ND, NABS, soft, NT, no rebound/guarding Peripheral: No c/c/e Skin: Right eye bruising, large hematoma on the left thigh which wrapped. Labs: Recent Results (from the past 24 hour(s)) POCT Glucose Result Value Ref Range POC Glucose 102 65 - 199 mg/dL APTT Result Value Ref Range PTT 34 25 - 35 sec Magnesium Result Value Ref Range Magnesium 0.80 0.69 - 1.07 mmol/L Phosphorus Result Value Ref Range Phosphorus 3.9 2.5 - 4.5 mg/dL Prothrombin Time Result Value Ref Range PT 17.3 (H) 12.0 - 15.0 sec INR 1.4 (H) 0.9 - 1.1 Hemogram Result Value Ref Range WBC 163.2 (CRIT) 4.0 - 9.5 x10(3)/mcL RBC 3.54 (L) 4.00 - 5.21 x10(6)/mcL Hemoglobin 10.1 (L) 11.7 - 15.5 gm/dL Hematocrit 33.3 (L) 35.7 - 45.8 % MCV 94.1 82.6 - 94.4 fL MCH 28.5 27.1 - 32.0 pg MCHC 30.3 (L) 31.7 - 35.0 gm/dL Platelets 134 (L) 145 - 357 x10(3)/mcL RDWSD 47.8 (H) 37.0 - 46.0 fL RDWCV 14.4 (H) 11.5 - 14.1 % MPV 10.9 7.6 - 12.9 fL nRBC % Auto 0.0 % nRBC Abs Auto 0.000 0.000 - 0.000 x10(3)/mcL Differential, Automated Result Value Ref Range Neutrophils % 5.8 % Neutr Abs (ANC) 9.36 (H) 1.70 - 6.10 x10(3)/mcL Lymphocytes % 93.1 % Lymphocytes Abs 151.8 (H) 0.9 - 3.2 x10(3)/mcL Monocytes % 0.7 % Monocyte Abs 1.2 (H) 0.3 - 0.9 x10(3)/mcL Eosinophils % 0.1 % Eosinophils Abs 0.1 0.0 - 0.4 x10(3)/mcL Basophils % 0.0 % Basophils Abs 0.1 0.0 - 0.1 x10(3)/mcL Immature Gran % 0.30 % Claudia Gran Abs 0.57 (H) 0.00 - 0.04 x10(3)/mcL Basic Metabolic Panel (non-fasting) Result Value Ref Range Glucose Lvl 127 65 - 199 mg/dL BUN 16 8 - 18 mg/dL Creatinine 0.87 0.70 - 1.20 mg/dL Sodium 142 135 - 145 mmol/L Potassium 3.6 3.5 - 5.0 mmol/L Chloride 109 (H) 98 - 107 mmol/L CO2 20 (L) 22 - 31 mmol/L Anion Gap 13 5 - 15 mmol/L Calcium 7.7 (L) 8.5 - 10.5 mg/dL Estimated GFR >60 >=60 APTT Result Value Ref Range PTT 68 (H) 25 - 35 sec Scan, Peripheral Blood Result Value Ref Range Plat Estimate Normal RBC Morphology Normal Smudge Cells Present Potassium Result Value Ref Range Potassium 4.1 3.5 - 5.0 mmol/L APTT Result Value Ref Range PTT 122 (H) 25 - 35 sec Other Tests: CT Chest 07/14/2016: IMPRESSION Large saddle embolism with evidence of right heart strain. Head MRI 07/14/2016: IMPRESSION 1. Punctate focus of probable diffusion restriction within the posterior right frontal lobe may represent a small focus of acute ischemia. 2. High signal within the cortex of the right posterior cerebrum without corresponding low signal onthe ADC map. This does not reflect acute ischemia and is likely artifactual. However, without the benefit of additional MRI sequences, an alternative underlying process such as seizure edema cannot be entirely excluded. Cardiac Echo 07/14/2016: ?? SUMMARY: ?? 1. Basal septal hypertrophy is observed. There is normal global left ventricular systolic function. The quantitative left ventricular ejection fraction by biplane Schwartz's method is 58%. There are no left ventricular segmental wall motion abnormalities. There is septal flattening present consistent with right ventricular pressure overload. 2. The right ventricle is moderately dilated. Right ventricular global systolic function is probably normal. 3. The estimated pulmonary artery systolic pressure is 41 mmHg. 4. There is moderate (2+/4+) tricuspid regurgitation present. 5. See remainder of report for additional findings. Assessment: Ms. Keller is a 66 y.o. female with h/o CLL (on observation) and recent retinal surgery 07/11/2016 who was admitted to the ICU yesterday with new saddle PE s/p TPA administration. Large pulmonary embolism likely multi-factorial given recent surgery, immobility, underlying cancer diagnosis, and exogenous estrogen. Given that lymphocytes are small in size, hyperviscosity does not occur until the total WBC reaches 400-500. Thus no concern for hyperviscosity syndrome. Recommendations: -Please transition to lovenox 80mg/kg Q12hrs [...] while the patient remains in the ICU). This patient was examined and discussed with my attending physician Dr. Stefania Ingram. Karrie Arnold M.D. Hematology and Oncology Fellow +*+*+*+*+*+*+*+*+*+*+*+*+*+*+*+*+*+*+*+*+*+*+*+*+*+*+*+*+*+*+*+*+*+*+*+*+*+* Hematology/Coagulation Consult Staff I have independently interviewed and examined this patient and have personally reviewed the relevantclinical, laboratory and radiological data with Dr. Karrie Arnold, Hematology/Oncology Fellow. Please refer to the comprehensive consultation note above, with which I concur, for complete details of our encounter with this patient. I have reviewed and endorse the recommendations as outlined and havemade any additions/corrections below. In brief, Ms Keller has CLL, followed without treatment and underwent eye surgery under general anesthesia (~1.5 hour) on 07/11. She is admitted three days later with a large pulmonary embolism for which she received TPA. She is currently in the ICU on a heparin drip and all things considered, is doing quite well. She has some areas of ongoing bleeding, including her right eye, but she is hemodynamically stable. As above, she has CLL and a high white blood cell count, but hyperleukocytosis/hyperviscosity would not be expected given the small size of the leukocytes, thus there is no indication for urgent leukapheresis or other cytoreduction. Nonetheless, CLL is a cancer and imparts a prothrombotic state that likely contributed to this event, thus we think it prudent to treat this as a cancer-associated VTE event. That being said, the fact that this occurred 3 days after surgery with general anesthesia is not a coincidence. In fact, surgery requiring general anesthesia for >30 minutes is considered a major transient risk factor according to guidelines published by the International Society for Thrombosis & Haemostasis (Kearon et al., J. Thromb Haemost 2016:14:1480-3). Though we can make an argument therefore for a finite period of anticoagulation for this event, given the serious nature of the VTE and the ongoing risk factors of CLL and age, I would favor considering long distance billing operator anticoagulation after completion of the initial 3-6 month anticoagulation period. We recommend enoxaparin, 80 mg twice daily (i.e., 1 mg/kg twice daily) for the first 3 months. Wouldavoid the 1.5 mg/kg once daily dose as this may lead to increased peak levels that put her recently operated eye at risk for more bleeding. After the 3 month point a switch to an oral agent (e.g., warfarin, apixaban) can be considered for the jail. We do not see a good reason to continue concurrent aspirin as aspirin adds little to antithrombotic efficacy but much to bleeding risk in this case. Thanks for the consult. We will communicate our recommendations with her outpatient Vehicle Cost Engineer. Stefania Ingram MD Line Up Worker, [facility] Consult Note - Tor Gale MD - 07/15/2016 9:15 AM EST Ophthalmology Consult - daily note Day 2 conjunctival hemorrhage OD after TPA in pt with recent retina surgery. Some bleeding overnight, eye patch changed once. Heparin and ASA S: Vision stable OD. No pain O: Gen: alert, lying on L side, patch on eye - white - no blood saturation Vision: HM OD PLE OD: lid ecchymosis, subconjunctival hemorrhage with narrow strip of exposure through closed lids, small amount of clotted blood on conjunctiva Cornea clear, AC deep and quiet - no hyphema A: 1. Subconjunctival hemorrhage with resolving/resolved active bleeding from suture line OD 2. Early conjunctival exposure with drying OD 3. 4d s/p vitrectomy for macular hole OD P: D/C patch Resume daily drops (prednisolone and Vigamox 4x/d OD) Start lubricating ointment: Refresh PM 4x/d OD - d/c when exposure resolved Continue positioning - eyes looking down; do not look above horizontal plane. Keep post-up visit as planned with Dr. Coffey Monday next week. Discussed with pt, nurse, and Dr. Hill Consult Note - Grayson Gale RN - 07/15/2016 8:48 AM EST Certified Wound Care Nurse Note Situation: Asked to see Carol Keller by nursing for PUP, pt can lie on left side or prone only Background: eD-H notes reviewed for history, admitting diagnosis and active problem list. Wound Assessment and Care Provided: Pt lying on left side. RN at bedside. Explained purpose of visit and pt agreed to assessment. Pt s/psurgical procedure to eye and can only lie on left side. Pt able to lie supine for exam. Pt with bruising on left elbow, left lateral thigh and left foot. Protective mepilex applied to left shoulder, elbow, hip and ankle. Skin over back, sacrum and heels intact with no discoloration. Saul Score: 14 Last Pressure Ulcer Prevention assessment: Shift Pressure Injury Prevention Occiput: No Injury Thoracic Spine: No Injury Sacral: No Injury Ischial - left: No Injury Ischial - right: No Injury Heel - left: No Injury Heel - right: No Injury Elbow - left: No Injury Elbow - right: No Injury Device Sites: O2 sat monitor, oxygen tubing, IV sites, dickson, ECG Leads Other Sites: ID band, NIBP cuff Nutritional Status Wt Readings from Last 1 Encounters: 07/15/16 74.6 kg (164 lb 7.4 oz) Body mass index is 27.79 kg/(m^2). Current bed: [facility] Assessment: Pt with no active pressure injury at this time. Pt remains at risk due to immobility order. Wound Care Recommendations: Mepilex Border dressing-change every 3 days and PRN: bony prominences to pad left side 1. Cleanse wound with dermal wound cleanser. 2. Apply Mepilex Border dressing Wound care will follow weekly. Discussed plan with: RN: Vivi Gomez Please contact GRAYSON GALE RN on pager [phone] or the wound care team at [phone] or pager [phone] with skin and wound care concerns or questions. Plan of Care - Marisela Ibarra RN - 07/15/2016 5:50 AM EST Problem: Patient Care Overview Goal: Plan of Care Review Outcome: Ongoing (Interventions Implemented as Appropriate) 07/14/16199907/15/16 0537 Coping/Psychosocial Plan Of Care Reviewed With patient -- Plan of Care Review Progress -- improving OUTCOME EVALUATION NOTE: OUTCOME SUMMARY: Pt alert and oriented x 4, very pleasant. Neuro and VS per tPA protocol and documented in appropriate flow sheet. Heparin gtt infusing per protocol, see MAR. Posterior thigh hematoma within marked boarders and wrapped with ryder wrap for comfort, prn tylenol and oxycodone given with positive effect. No active s/s of bleeding. Right eye patch dressing in place and changed x 1 when nightly eye drops instilled, moderate bloody drainage noted constant with RN report. Pt only able to lay left side or pronedue to recent eye surgery. Remains on 2 L NC with stable oxygen saturations. No acute changes overnight. Will continue to monitor. 0600: Left posterior thigh hematoma now extending from marked boarders. +CSM. Dr. Deluca and Dr. Cortez to assess. Nursing to closely monitor. PLAN MOVING FORWARD: Q 1 hour Neuro checks till 1400, monitor s/s of bleeding, monitor respiratory status, post op eye care, continue supportive care INDIVIDUALIZED FALL PREVENTION INTERVENTIONS: Patient-specific fall risk factors per assessment: [current deficits]: tPA, impaired vision, dizziness, recent surgery, generalized weakness Assistance [level of assistance required for transfers and ambulation]: Bed rest Supervision [direct monitoring required during toileting and ADLs]: Rings call light appropriately for assistance Surveillance [continuous indirect monitoring]: [facility] Patient-specific fall prevention interventions for sensory deficits provided, if applicable: [X] Yes CPG GOAL OUTCOME EVALUATION: Problem: Skin Integrity Impairment, Risk/Actual (Adult) Goal: Identify Related Risk Factors and Signs and Symptoms Related risk factors and signs and symptoms are identified upon initiation of Human Response Clinical Practice Guideline (CPG) Outcome: Ongoing (Interventions Implemented as Appropriate) 07/15/16 0536 Skin Integrity Impairment, Risk/Actual Skin Integrity Impairment, Risk/Actual: Related Risk Factors age extremes;fluid/nutrition status;sensory impairment Goal: Skin Integrity/Wound Healing Patient will demonstrate the desired outcomes by discharge/transition of care. Outcome: Ongoing (Interventions Implemented as Appropriate) 07/15/16 0537 Skin Integrity Impairment, Risk/Actual (Adult) Skin Integrity/Wound Healing making progress toward outcome Problem: Thrombolytic Therapy (Adult) Goal: Signs and Symptoms of Listed Potential Problems Will be Absent, Minimized or Managed (Thrombolytic Therapy) Signs and symptoms of listed potential problems will be absent, minimized or managed by discharge/transition of care (reference Thrombolytic Therapy (Adult) CPG). Outcome: Ongoing (Interventions Implemented as Appropriate) 07/15/16 0537 Thrombolytic Therapy Problems Assessed (Thrombolytic Therapy) all Problems Present (Thrombolytic Therapy) none Plan of Care - Michelle Barlow RN - 07/14/2016 6:55 PM EST Problem: Patient Care Overview Goal: Plan of Care Review Outcome: Ongoing (Interventions Implemented as Appropriate) 07/14/16 1840 Coping/Psychosocial Plan Of Care Reviewed With patient Plan of Care Review Progress progress toward functional goals is gradual OUTCOME EVALUATION NOTE: OUTCOME SUMMARY: Pt arrived around 1530 to ICU room 41. Alert and Oriented x4, equal bilateral movement and sensationin all four extremities on exam. Pt c/o LUE fine motor movement difficulties, but states that it isdifficult to tell because she can only rest on her left side unable to give the arm a break. tPA administered around 1400. Pt will remain on Q30 minute neuro checks and vital signs until 2200, at which time she will be on Q1 hour neuro checks and vital signs until 1400 tomorrow MondayJuly 15. Left lateral thigh hematoma noted upon initial assessment, pt states that this started after the tPA was initiated, this doubled in size over about 20 minutes, team aware, area marked, ryder bandage and ice pack applied. Also, approximately 1 hour post-tPA infusion completed, increased bleeding noted from right eye. STAT consult to opthalmology. Upon their exam, pt bleeding from surgical incision site, full exam performed, eye drops placed, and eye patch applied (to be changed each time pads are soaked through, continue to monitor). Pt only able to be on her left side or prone. PLAN MOVING FORWARD: Possibly restart heparin gtt, depending on PTT results. Q1 hour Neuro Checks throughout the night. Monitor bleeding at right eye site and left thigh hematoma. INDIVIDUALIZED FALL PREVENTION INTERVENTIONS: Patient-specific fall risk factors per assessment: [current deficits]: Visual disturbances, post tPAinfusion. Assistance [level of assistance required for transfers and ambulation]: Minimal, stand-by assistance Supervision [direct monitoring required during toileting and ADLs]: Near RN station, oriented to call aguillon and uses appropriately Surveillance [continuous indirect monitoring]: Alarms activated and audible, set appropriately for patient Patient-specific fall prevention interventions for sensory deficits provided, if applicable: [X] Yes CPG GOAL OUTCOME EVALUATION: Consult Note - Tor Gale MD - 07/14/2016 6:32 PM EST Inpatient Ophthalmology Evaluation Req MD: Dayron Green MD: Regina Hill I was asked to evaluate Carol Keller regarding R eye bleeding. Ms. Keller had vitrectomy / membrane peeling / macular hole surgery OD by Dr. Coffey 3d ago. Today she was admitted for pulmonaryembolus and received TPA, clearing her PE. About 1 hour ago, the ICU team noted sudden conjunctival h emorrhage and active bleeding from her right eye. She has been lying on her L side. She reports poorvision OD, unchanged since the surgery; no sudden change in past hours. No pain in the eye. She has been using her postoperative drops and ointment. No change in vision OS. POH: Macular hole OD, macular pucker OS PMH: CLL FH: No pertinent history ROS: Breathing more comfortably in past 2 hours. All others negative Meds: TPA (completed recently), heparin, ASA, Protonix, Vigamox 4/0, PF 4/0, lwn-mouc-kca ointment hs/0 All: PCN, Sulfa SH: Here with daughter Examination Location: ICU Room 41 Carol Keller was oriented to person, place and time and had an appropriate affect. She was lying on her L side. Several blood-stained tissues at her side. VA: HM OD, not tested OS VF: Not tested Pup: 4mm minimally reactive OD 3.5mm to 2mm OS No APD IOP: 17 mmHg OD, 15 mmHg OS (Tonopen) EOM: Grossly full Ext: Normal, no ecchymosis. Normal lid closure. PLE: LLL: quiet OU Conj: GERRI OD, some bulging. No dehiscence of suture line. Quiet OS K: clear OU AC: deep and quiet OU. No hyphema I: normal OU L: clear OU Fundus: OD: + Red reflex, hazy view of retina through bubble, no evidence of vitreous hemorrhage Impression: Subconjunctival hemorrhage with active bleeding from conjunctival suture line. No signs of intraocular bleeding. 3d s/p Vitrectomy/MP/macular hole surgery OD Comment: Placed evening eyedrops and then mild pressure patch over Maxitrol ointment OD. Instructed team on patch technique. Patch off in AM for morning drops - I will try to come for morning visit. With recent cessation of TPA, I expect active bleeding to stop overnight Will take several weeks for GERRI to resolve. Keep scheduled follow up with Dr. Coffey as scheduled. I have discussed my findings and concerns with Ms. Keller, her daughter, Dr. Deluca, and Dr. Hill. Please don't hesitate to contact me if I can be of more assistance. Tor Gale MD Section of Ophthalmology [facility] page: [phone], office: [phone] Associate Provider Student Progress Note - Leandra Willoughby - 07/14/2016 5:00 PM EST Admission H&P Patient Name: Carol Keller Date of : 1950 Age: 66 y.o. Hospital Admit Date: 07/14/2016 Inpatient Attending: Regina Hill MD PCP: Berkley Madrigal MD Presenting Diagnosis/Chief Complaint: SOB Cough Numbness in the left side of body Active Problem List: SOB Numbness in left side of the body, along with slurring of speech. History of Present Illness: DIANE Medina is a 66 yo female, who came into the ED with SOB and numbness in the left side of the body. On asking, she explained that her SOB had started around 7.15 am in the morning after using the restroom. She got dizzy along with that. Later on, she developed numbness in the left side if the body, which was followed with slurring of speech. Her son's girlfriend, who is a PA, did the neurological exam which showed left sided weakness. No h/o unconsciousness. No report of any event like this before. Before the symptoms had begun, she also had bilateral swelling in her ankles. She never had any swelling like this before. Before the episode she was pretty active and had no complains like this before. Prior to this, patient had an ophthalmological procedure , vitrectomy, which was for an hour, which was performed under general anesthesia. She has decreased vision in her right eye for a few years now. She was diagnosed in CLL in 2009. She has not received any treatment for that. She has SOB on lying flat, so she always acquires a lateral position while lying down. She doesn't use any home oxygen andhasn't been evaluated for her othoapnea. Patient is a known diabetic. She has had it under control with oral meds. Before seeing her, there was a CT PE ordered and an MRI and a CT head were ordered as well. A stroke alert had been called and Neurology came immediately to her bedside. CT Head was negative for acute findings and at the time, her resolving symptoms and mild deficits were thought to not be indications for tPA. However, patient was still requiring a high O2 requirement (going up to 50% HFNC).TTE showed mod dilated RV with PASP of 41 mmHg and EF of 58%. Moderate tricuspid regurg. CTPE showeda large saddle embolism with evidence of R heart strain. Patient and family was then consented to start tPA for her saddle embolism and she was transferred to ICU for monitoring. Radiology: 1) CT PE : Past Medical History: Past Medical History Diagnosis Date ??? Cancer ??? Cardiac disease ??? CLL (chronic lymphocytic leukemia) ??? Diabetes mellitus dx ~2010 ??? Diabetes mellitus ??? Disease of blood and blood forming organ ~2008 leukemia CLL ??? GERD (gastroesophageal reflux disease) ??? 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 SVT (supraventricular tachycardia) ??? Unspecified diseases of blood and blood-forming organs ??? Verruca vulgaris 03/08/2013 Surgical History/Problems: Past Surgical History Procedure Laterality Date ??? Focal laser treatment 08/14/2012 OD for ret tear ??? Laser surgery 08/14/2012 FOCAL,OD ??? Retinopathy surgery Right 07/11/2016 PPV/MP with Intraocular Tamponade OD per CBC for [place] ??? Retinal detachment surgery ??? Pro vitrectomy pars plana remove int memb retina Right 07/11/2016 VITRECTOMY, W/ MEMBRANE STRIPPING, INTRAOCULAR TAMPONADE (WRVU 16.33) performed by Pavan [facility]y [facility] Significant Family History: Family History Problem Relation Age of Onset ??? Strabismus Brother ??? Thyroid Disease Mother ??? Cataracts Mother ??? Macular Degeneration Mother ??? Diabetes Mother ??? Hypertension Mother ??? Glaucoma Father borderline glaucoma ??? Cancer Father lung ??? Diabetes Maternal Grandmother ??? Diabetes Paternal Grandmother ??? Amblyopia Neg Hx ??? Retinal Detachment Neg Hx ??? Heart Disease Neg Hx Social History: Social History Social History ??? Marital status: Spouse name: N/A ??? Number of children: N/A ??? 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 . Social History Main Topics ??? Smoking status: Never Smoker ??? Smokeless tobacco: Never Used ??? Alcohol use Yes Comment: once per year ??? Drug use: No ??? Sexual activity: Not on file Social History Narrative Merged History Encounter REVIEW OF SYSTEMS: Review of Systems General: chills, fatigue, fever or night sweats Eye: blurry vision, double vision, loss of vision or photophobia HENT: headaches, sore throat, vertigo, dysphagia Heme/Lymph: Bleeding/bruising, blood clots, jaundice, pallor or swollen lymph nodes Resp: cough, hemoptysis, orthopnea, shortness of breath or wheezing Cardio: chest pain, dyspnea on exertion, edema, loss of consciousness, palpitations, paroxysmal nocturnal Gastro: abdominal pain, blood in stools, constipation, diarrhea, heartburn, hematemesis, melena or nausea/vomiting : dysuria, hematuria, or urinary frequency/urgency MSK: joint pain, joint stiffness, joint swelling, muscle pain, or muscular weakness Neuro: dizziness, gait disturbance, impaired coordination/balance, numbness/tingling, seizures. Lesspower on left side, speech problems, tremors or visual changes Derm: lumps or rashEXAMINATION: none Medications: Prescriptions Prior to Admission Medication Sig Dispense Refill Last Dose ??? moxifloxacin (VIGAMOX) 0.5 % Drops Place 1 drop into the right eye 4 times daily. 07/14/2016 at Unknown time ??? prednisoLONE acetate (PRED FORTE) 1 % Drops, Suspension Place 1 drop into the right eye 4 times daily. 07/14/2016 at Unknown time ??? algeucta-bwynvzqpo-qyrcdlxmiwczc (DEXACINE) 3.5 mg/g-10,000 unit/g-0.1 % Ointment Place 1 Tube into the right eye nightly as needed. 07/14/2016 at Unknown time ??? estradiol (ESTRACE) 0.5 mg Tablet Take 0.5 mg by mouth daily. Indications: estrogen replacement 07/14/2016 at Unknown time ??? aspirin 81 mg Tablet, Delayed Release (E.C.) Take 81 mg by mouth daily. 07/14/2016 at Unknown time ??? melatonin 3 mg Tab Take 3 mg by mouth nightly as needed. 07/14/2016 at Unknown time ??? imipramine (TOFRANIL) 10 mg tablet Take 10 mg by mouth 2 times daily. 07/14/2016 at Unknown time ??? multivitamin capsule Take 1 capsule by mouth daily. 07/14/2016 at Unknown time ??? Cholecalciferol, Vitamin D3, (VITAMIN D) 2,000 unit Cap Take 2,000 mg by mouth. 07/14/2016 at Unknown time ??? omeprazole (PRILOSEC) 20 mg capsule 07/14/2016 at Unknown time ??? cycloSPORINE (RESTASIS) 0.05 % ophthalmic emulsion 07/14/2016 at Unknown time ??? Green Tea Extract 500 mg Cap Take 500 mg by mouth daily. Taking ??? Glucosamine Sulfate 500 mg Tab Taking Allergies: Allergies Allergen Reactions ??? Penicillins Rash ??? Sulfa (Sulfonamide Antibiotics) CIS - Unknown ??? Penicillins CIS - Rash PHYSICAL EXAM: Last set of vital signs: BP 105/69 (BP Location (NBP): Right arm, Patient Position: Lying) Pulse 95 Temp 36.7 ??C (98.1 ??F) (Oral) Resp 18 Ht 163.8 cm (5' 4.5) Wt 76.3 kg (168 lb 3.4 oz) SpO2 96% BMI28.43 kg/m2 Physical Exam Physical Exam General: acutely ill, appears stated age, mild distress and vital signs reviewed and discussed with patient Eyes: Conjunctiva clear., Pupils equal and round. , Sclera non-icteric. HENT:Head atraumatic and normocephalic, ENT without erythema or injection, mucous membranes moist. Neck: supple, symmetrical, trachea midline and no adenopathy Lungs/Chest: Coarse breath sounds throughout all lung abreu but much improvement. Thoracic excursion Normal, no longer TTP along costosternal junctions. Cardiovascular: regular rate and rhythm, S1, S2 normal, no murmur, click, rub or gallop, pulses +2/4in all 4 extremities, no JVD or pedal edema normal apical impulse Abdomen: Soft, non-tender, Bowel sounds normal, non-distended, No hepatosplenomegaly, Abdominal bruit absent, No CVA Tenderness Genito-urinary: Deferred Extremities: extremities normal, atraumatic, no cyanosis or edema, no edema, redness or tenderness in the calves or thighs Skin: Skin warm and dry, No rashes and No lesions Neurologic: CN II - XII grossly intact , Alert and oriented x3, No tremor. Due to positioning, testing her was hard. Ana Maria: Eye openin spontaneous, Verbal response: 5 oriented, Best motor response: 6 obeys commands Coma (GCS Coma less than 8): Coma -Not applicable Lymphatics: No cervical, supraclavicular, or axillary lymphadenopathy Psychiatric: Normal affect, behavior, memory, thought content, judgement, and speech LABS: Recent Results (from the past 24 hour(s)) POCT Glucose Result Value Ref Range POC Glucose 165 65 - 199 mg/dL Prothrombin Time Result Value Ref Range PT 14.6 12.0 - 15.0 sec INR 1.1 0.9 - 1.1 APTT Result Value Ref Range PTT 26 25 - 35 sec Basic Metabolic Panel (non-fasting) Result Value Ref Range Glucose Lvl 193 65 - 199 mg/dL BUN 22 (H) 8 - 18 mg/dL Creatinine 0.99 0.70 - 1.20 mg/dL Sodium 140 135 - 145 mmol/L Potassium See Note 3.5 - 5.0 mmol/L Chloride 103 98 - 107 mmol/L CO2 21 (L) 22 - 31 mmol/L Anion Gap 16 (H) 5 - 15 mmol/L Calcium 8.9 8.5 - 10.5 mg/dL Estimated GFR 56 (L) >=60 Hemogram Result Value Ref Range WBC 163.9 (CRIT) 4.0 - 9.5 x10(3)/mcL RBC 4.80 4.00 - 5.21 x10(6)/mcL Hemoglobin 14.1 11.7 - 15.5 gm/dL Hematocrit 45.2 35.7 - 45.8 % MCV 94.2 82.6 - 94.4 fL MCH 29.4 27.1 - 32.0 pg MCHC 31.2 (L) 31.7 - 35.0 gm/dL Platelets 165 145 - 357 x10(3)/mcL RDWSD 48.8 (H) 37.0 - 46.0 fL RDWCV 14.4 (H) 11.5 - 14.1 % MPV 11.0 7.6 - 12.9 fL nRBC % Auto 0.0 % nRBC Abs Auto 0.000 0.000 - 0.000 x10(3)/mcL Differential, Automated Result Value Ref Range Neutrophils % 5.7 % Neutr Abs (ANC) 9.32 (H) 1.70 - 6.10 x10(3)/mcL Lymphocytes % 93.1 % Lymphocytes Abs 152.7 (H) 0.9 - 3.2 x10(3)/mcL Monocytes % 0.6 % Monocyte Abs 1.0 (H) 0.3 - 0.9 x10(3)/mcL Eosinophils % 0.1 % Eosinophils Abs 0.2 0.0 - 0.4 x10(3)/mcL Basophils % 0.1 % Basophils Abs 0.1 0.0 - 0.1 x10(3)/mcL Immature Gran % 0.40 % Claudia Gran Abs 0.61 (H) 0.00 - 0.04 x10(3)/mcL Gold Tube HOLD Result Value Ref Range Gold Hold Sample in lab. Troponin T Result Value Ref Range Troponin-T 0.11 (H) <=0.03 ng/mL D-Dimer, Quantitative Result Value Ref Range D-Dimer, Quant >33048 (CRIT) 0 - 500 FEU ng/ml Scan, Peripheral Blood Result Value Ref Range Plat Estimate Normal RBC Morphology Normal Smudge Cells Present pro-Brain Natriuretic Peptide Result Value Ref Range ProBNP 143 (H) <=125 pg/mL ABO/Rh Typing Result Value Ref Range ABORh Type A Neg Antibody screen Result Value Ref Range Ab Screen Interp Negative Expires at 2359 on: 07/17/2016 ABORH Recheck Status Result Value Ref Range ABORH Recheck Order Order Placed ABORH Type Recheck Complete BLOOD GAS 2 ARTERIAL Result Value Ref Range pH Art 7.40 7.35 - 7.45 pCO2 Art 34 (L) 35 - 45 mmHg pO2 Art 52 (L) 85 - 104 mmHg HCO3 Art 20.4 20.0 - 26.0 mmol/L BE Art -4.5 (L) -3.0 - 3.0 mmol/L Hgb Blood Gas 14.4 11.7 - 15.5 gm/dL O2HB Art 86.6 (L) 94.0 - 97.0 % COHB Art 0.2 % METHB Art 0.3 <=1.5 % Na Whole Blood 141 135 - 145 mmol/L K Whole Blood 3.2 (L) 3.5 - 5.0 mmol/L ICa Whole Blood 1.20 1.15 - 1.33 mmol/L CL Whole Blood 107 98 - 107 mmol/L Gluc Whole Bld 163 65 - 199 mg/dL Lactate WB 1.5 0.5 - 2.2 mmol/L Imaging: MRI, 07/14 IMPRESSION 1. Punctate focus of probable diffusion restriction within the posterior right frontal lobe may represent a small focus of acute ischemia. 2. High signal within the cortex of the right posterior cerebrum without corresponding low signal on the ADC map. This does not reflect acute ischemia and is likely artifactual. However, without the benefit of additional MRI sequences, an alternative underlying process such as seizure edema cannot be entirely excluded. CTPE, 07/14 FINDINGS: Pulmonary arteries: Large filling defect extending along the bifurcation of the right and left main pulmonary arteries consistent with a saddle embolus. Filling defects are seen extending into almost all visualized pulmonary artery segments, but predominantly within the basilar segments. Other cardiovascular structures: There is evidence of right heart strain based on the RIGHT-LEFT ventricular ratio which is >1 using the right ventricle which measures 3.9 cm to the left ventricle which measures 3.2 cm. Lungs and airways:? No significant findings. Pleura and pericardium: No significant findings. Mediastinum and hilar structures: No lymphadenopathy. Limited views of the upper abdomen: No significant findings. Skeletal structures: No aggressive lytic or sclerotic lesions. IMPRESSION Large saddle embolism with evidence of right heart strain, as above. CT Head, non con, 07/14 IMPRESSION No acute intracranial abnormality. Intraocular air and fluid on the right. TTE, 07/14 SUMMARY: 1. Basal septal hypertrophy is observed. There is normal global left ventricular systolic function. The quantitative left ventricular ejection fraction by biplane Schwartz's method is 58%. There are no left ventricular segmental wall motion abnormalities. There is septal flattening present consistent with right ventricular pressure overload. 2. The right ventricle is moderately dilated. Right ventricular global systolic function is probably normal. 3. The estimated pulmonary artery systolic pressure is 41 mmHg. 4. There is moderate (2+/4+) tricuspid regurgitation present. 5. See remainder of report for additional findings. EKG: Sinus tachycardia ASSESSMENT: 66 yo female, k/c of CLL, DM, s/p vitrectomy 2 days ago under GA, developed SOB and Left sided numbness in the morning. After ED arrival, and after neurology stroke protocol and imaging done, patient was diagnosed with : 1) Saddle Pulmonary Embolus 2) Transient Ischemic Attack TREATMENT PLAN: 1) PE : Patient put on tPA after consulting with neurology due to her submassive Pulmonary Embolism Heparin has been in place. Check for respiratory status and SaO2 and see if patient needs oxygen assistance if not stable on room air. 2)Neurological Status: Patient to have continuous neurological check ups and also to go for a head MRI later in the day to evaluate for any bleeds post tPA administration. 3)Limb pain: Patient to be given analgesics for the left limb pain. 4) Hematomas : Hematomas being developed, most like;ly due to administration of tPA. Continuous care and bandaging for that. 5)Ophthalmology: Check for bleeds from suture sites and take ophthalmology on board in case of any bleed. Home drops to be administered as prescribed. 6)Diabetes: Diet and medications. Provider: Leandra Willoughby Provider #: [id number] 07/14/2016 Initial Assessments - Tracy Echeverria MSW - 07/14/2016 4:18 PM EST Office of Care Management Initial Assessment ADÁN FRANCIS reviewed record and discussed patient with Care Team. Source of Information: Chart and patient. Introduced self/reviewed role; services accepted. Reason for Hospitalization: Carol Keller is a 66 y.o. RIGHT handed female with PMHx of DM, SVT, CLL, s/p eye surgery on 07/11/16 (membrane peeling of internal limiting membrane and epiretinal membrane, pars plana vitrectomy), who arrives on a stroke alert. At 7:15 AM patient recalls that she gotout of bed in the morning and felt dizzy, lightheaded and short of breath. Patient then recalls sneezing and afterwards family noted she had slurring of words, left facial droop, and left arm weakness.She also had subjective numbness in her LEFT hand and fingers as well as LEFT facial numbness. Family immediately called 911 and picked up by EMS. At around 8:20 AM while en route with EMS it was reported that her droop and slurring had resolving, but her weakness persistent and numbness persistent. Past Medical History Diagnosis Date ??? Cancer ??? Cardiac disease ??? CLL (chronic lymphocytic leukemia) ??? Diabetes mellitus dx ~2010 ??? Diabetes mellitus ??? Disease of blood and blood forming organ ~2008 leukemia CLL ??? GERD (gastroesophageal reflux disease) ??? 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 SVT (supraventricular tachycardia) ??? Unspecified diseases of blood and blood-forming organs ??? Verruca vulgaris 03/08/2013 Hospitalizations Within the Past 30 Days: No Anticipated Length Of Stay (If known): Unknown Current Decision-Making Capacity: Able to make her own decisions, understands why she is in the hospital, no language barriers. Advance Care Planning: None on file. Carol states that she has completed them and gave them to the Oncology department. Carol states she will have her daughter bring in a copy. Carol statesthat her AD's name her daughter, Cheyanne Keller as her DPOA followed by her son Freeman Keller as her alternate. Current Coping/Education/Information Needs: Carol states that she was supposed to retire in Octoberof this year. Carol also states that she may have to file an extension on her taxes depending onthe outcome of this hospitalization. Worker offered to write a letter if needed, she will give it some thought. Declines a visit from a hub cutter apprentice or a Property Consultant at this time. Current Functional Ability: Laying on her left side, joking. 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 Home Environment: Carol lives alone in her one level home with no steps to enter and her two dogs and 2 cats. Her son is currently taking care of her dogs and her daughter will look in on her cats.Her bathroom is working and is handicapped accessible. She does not use any DME at home, including dialysis, tube feeds, or O2. She has not needed VNA in the past, but states she would like to use [facility]. She has not been to a physical rehab in the past and when asked if she had preferences should she need rehab, she said she was hoping to be able to go home rather than rehab. Social & Family Supports/Community Resources: Her son Freeman Keller, her daughter, Cheyanne Keller, other friends and family. Behavioral Health History: Denies. Substance Use/Abuse: Denies. Other Pertinent/Service Specific Information: No. Health/Prescription Coverage: Primary Insurance: Medicare A & B Secondary Insurance: AARP Prescription Coverage: Part D through [employer], saying AARP covers what [employer] does not, so no problems affording her co-pays. Preferred Pharmacy: mail order, but local, [employer] [facility] Other: No. Primary Care Provider: Berkley Madrigal MD [phone] Patient/Caregiver Goals of Treatment: To get out of here as soon as possible. Potential Needs for Transition of Care: Rehab/SNF: TBD, patient would rather go home and declined choices at this time. Home Health: TBD, would like [facility] if needed. DME: No. Dialysis: no Community Resources: no Transportation: Her children. Other: No Anticipated Barriers to Discharge/Special Considerations: No. Plan: A member of the Care Management team will continue to monitor progress, follow for continuity of care and assist with transition of care planning. ADÁN FRANCIS Pager: [phone] documented in this encounter Plan of Treatment Upcoming Encounters Date Type Specialty Care Team Description 02/11/2022 Scheduled View Only Hematology and Ángel Fischer Oncology [facility] ONCOL[facility] [place], [place] [address] (Wo rk) 02/11/2022 TH Visit (TeleHealth) Hematology Ángel Kimbrough Oncology [facility] [place], [place] [address] (Wo rk) 02/11/2022 Infusion Hematology and Oncology 02/11/2022 Office Visit Hematology and Jazzy Armendariz R D [facility] [place], [place] [address] (Wo rk) 02/22/2022 TH Visit (TeleHealth) Hematology and Yaquelin Celis E, [facility] HEMATOLOGY AND ONCOLOGY [place], [place] [address] (Wo rk) 02/25/2022 Office Visit Hematology Ángel Kimbrough Oncology [facility] [address] [facility] [place], [place] [address] (Wo rk) 02/25/2022 Infusion Hematology and Oncology 03/10/2022 Scheduled View Only Obstetrics and NurseJulian II, industrial safety and health manager 03/10/2022 Office Visit Obstetrics and Shazia Whitley, Gynecology [facility]YN[facility]Y [place], [place] [address] (Wo rk) 03/11/2022 Office Visit Ángel Hill MD [facility] [place] [address] On[address] [address] 03/11/2022 Infusion Hematology and Oncology 03/25/2022 Office Visit Hematology and Alyssa Joseph, Oncology [address] MEDICAL ONCOLOGY [place], [place] [id number] (Wo rk) 03/25/2022 Infusion Hematology and Oncology 03/31/2022 Office Visit Hematology and Alan Livingston M D [facility] DR HEMATOLOGY/[place] [address] [facility] [address] 04/08/2022 Office Visit Hematology and Ángel Fischer MD [facility] [place] [address] Oncology Alyss[address] Joseph[address] MEDICAL ONCOLOGY [place], [place] [address] 04/08/2022 Infusion Hematology and Oncology Pending Results Name Type Priority Associated Diagnoses Date/Ti me Transfuse RBC Blood Bank Routine 07/16/2016 10: 46 AM EST Transfuse RBC Blood Bank Routine 07/16/2016 10: 00 AM EST Transfuse RBC Blood Bank Routine 07/16/2016 12: 11 PM EST Transfuse RBC Blood Bank Routine 07/20/2016 2:0 0 PM EST Transfuse RBC Blood Bank Routine 07/20/2016 1:5 8 PM EST Scheduled Orders Name Type Priority Associated Diagnoses Order S chedule EKG 12 Lead ECG Routine Acute saddle pulmonary One T alejandra for 1 Occurrences embolism with acute cor star ting 07/18/2016 until pulmonale 07/18/2016 Scheduled Referrals Name Type Priority Associated Diagnoses Order S chedule Referral to Outpatient Referral Routine Cerebral infarction O rdered: Neurology due to thrombosis of 017 precerebral artery documented as of this encounter Procedures Procedure Name Priority Date/Time Associated Comments Diagnosis LAB SCAN 07/23/2016 12:00 Results for this AM EST procedure are i n the results section. FRAME COVERER SCAN 07/23/2016 12:00 Res ults for this AM EST procedure are i n the results section. HEMOGRAM Routine 07/22/2016 4:26 Results for this AM EST procedure are i n the results section. CK Routine 07/22/2016 4:26 Results for this AM EST procedure are i n the results section. CT FEMUR WO CONTRAST Routine 07/21/2016 12:07 Res ults for this LEFT PM EST procedure are i n the results section. CT ABDOMEN AND PELVIS Routine 07/21/2016 12:07 Re sults for this WO CONTRAST PM EST procedure are i n the results section. HEMOGRAM Routine 07/21/2016 5:28 Results for this AM EST procedure are i n the results section. MRI NECK ANGIOGRAM WWO Routine 07/20/2016 9:00 Re sults for this CONTRAST PM EST procedure are i n the results section. MRI HEAD ANGIOGRAM AND Routine 07/20/2016 9:00 Re sults for this MRI BRAIN WO CONTRAST PM EST proced ure are in the results section. TRANSFUSE RED BLOOD Routine 07/20/2016 1:58 CELLS PM EST PREPARE RBC Routine 07/20/2016 11:05 Results for this AM EST procedure are i n the results section. HEMOGRAM Routine 07/20/2016 7:04 Results for this AM EST procedure are i n the results section. CMP W/FASTING GLUCOSE Routine 07/19/2016 4:48 Res ults for this AM EST procedure are i n the results section. HEMOGRAM Routine 07/19/2016 4:48 Results for this AM EST procedure are i n the results section. TRANSFUSE RED BLOOD Routine 07/18/2016 2:23 CELLS PM EST ABORH RECHECK STATUS Routine 07/18/2016 12:32 Res ults for this PM EST procedure are i n the results section. ABO/RH TYPING Routine 07/18/2016 12:32 Results fo r this PM EST procedure are i n the results section. ANTIBODY SCREEN Routine 07/18/2016 12:32 Results for this PM EST procedure are i n the results section. TYPE AND SCREEN Routine 07/18/2016 12:32 ([facility]) PM EST PREPARE RBC Routine 07/18/2016 11:40 Results for this AM EST procedure are i n the results section. HEMOGRAM Routine 07/18/2016 8:09 Results for this AM EST procedure are i n the results section. GREEN TUBE HOLD Routine 07/18/2016 8:09 Results f or this AM EST procedure are i n the results section. LAVENDER TUBE HOLD Routine 07/18/2016 8:09 Result s for this AM EST procedure are i n the results section. CMP W/FASTING GLUCOSE Routine 07/17/2016 4:00 Res ults for this AM EST procedure are i n the results section. HEMOGRAM Routine 07/17/2016 4:00 Results for this AM EST procedure are i n the results section. HEMOGRAM Routine 07/16/2016 2:40 Results for this PM EST procedure are i n the results section. TRANSFUSE RED BLOOD Routine 07/16/2016 12:11 CELLS PM EST TRANSFUSE RED BLOOD Routine 07/16/2016 10:00 CELLS AM EST PREPARE RBC Routine 07/16/2016 9:30 Results for this AM EST procedure are i n the results section. PREPARE RBC Routine 07/16/2016 9:30 Results for this AM EST procedure are i n the results section. CMP W/FASTING GLUCOSE Routine 07/16/2016 8:45 Res ults for this AM EST procedure are i n the results section. SCAN, PERIPHERAL BLOOD Routine 07/16/2016 8:45 Re sults for this AM EST procedure are i n the results section. HEMOGRAM Routine 07/16/2016 8:45 Results for this AM EST procedure are i n the results section. FIBRINOGEN Routine 07/16/2016 2:30 Results for this AM EST procedure are i n the results section. FIBRINOGEN Routine 07/15/2016 3:58 Results for this PM EST procedure are i n the results section. SCAN, PERIPHERAL BLOOD STAT 07/15/2016 2:10 Re sults for this PM EST procedure are i n the results section. HEMOGRAM STAT 07/15/2016 2:10 Results for this PM EST procedure are i n the results section. DIFFERENTIAL, AUTOMATED STAT 07/15/2016 2:10 R esults for this PM EST procedure are i n the results section. CBC (WITH DIFF) STAT 07/15/2016 2:10 PM EST VISCOSITY Routine 07/15/2016 1:10 Results for this PM EST procedure are i n the results section. POTASSIUM Routine 07/15/2016 1:10 Results for this PM EST procedure are i n the results section. APTT STAT 07/15/2016 9:20 Results for this AM EST procedure are i n the results section. POTASSIUM Routine 07/15/2016 9:20 Results for this AM EST procedure are i n the results section. SCAN, PERIPHERAL BLOOD STAT 07/15/2016 2:10 Re sults for this AM EST procedure are i n the results section. HEMOGRAM STAT 07/15/2016 2:10 Results for this AM EST procedure are i n the results section. DIFFERENTIAL, AUTOMATED STAT 07/15/2016 2:10 R esults for this AM EST procedure are i n the results section. APTT STAT 07/15/2016 2:10 Results for this AM EST procedure are i n the results section. PROTHROMBIN TIME STAT 07/15/2016 2:10 Results for this AM EST procedure are i n the results section. CBC (WITH DIFF) STAT 07/15/2016 2:10 AM EST PHOSPHORUS STAT 07/15/2016 2:10 Results for this AM EST procedure are i n the results section. MAGNESIUM STAT 07/15/2016 2:10 Results for this AM EST procedure are i n the results section. BASIC METABOLIC PANEL STAT 07/15/2016 2:10 Res ults for this (NON-FASTING) AM EST procedure are in the results section. APTT STAT 07/14/2016 6:20 Results for this PM EST procedure are i n the results section. POCT GLUCOSE Routine 07/14/2016 3:19 Results for this PM EST procedure are i n the results section. MRI BRAIN WO CONTRAST STAT 07/14/2016 1:14 Res ults for this PM EST procedure are i n the results section. ECHOCARDIOGRAM COMPLETE Routine 07/14/2016 11:02 CLL (chronic Results for this AM EST lymphocytic procedure are i n leukemia) the results section. CT CHEST PULMONARY STAT 07/14/2016 10:54 Resul ts for this EMBOLISM W CONTRAST AM EST procedur e are in the results section. XR CHEST PA AND LATERAL STAT 07/14/2016 9:28 R esults for this AM EST procedure are i n the results section. BLOOD GAS 2 ARTERIAL Routine 07/14/2016 9:08 Resu lts for this AM EST procedure are i n the results section. EKG 12-LEAD STAT 07/14/2016 8:55 Results for this AM EST procedure are i n the results section. CT HEAD WO CONTRAST STAT 07/14/2016 8:54 Resul ts for this (GENERIC) AM EST procedure are i n the results section. ABORH RECHECK STATUS STAT 07/14/2016 8:47 Resu lts for this AM EST procedure are i n the results section. ABO/RH TYPING STAT 07/14/2016 8:47 Results for this AM EST procedure are i n the results section. ANTIBODY SCREEN STAT 07/14/2016 8:47 Results f or this AM EST procedure are i n the results section. TYPE AND SCREEN STAT 07/14/2016 8:47 ([facility]) AM EST SCAN, PERIPHERAL BLOOD STAT 07/14/2016 8:44 Re sults for this AM EST procedure are i n the results section. HEMOGRAM STAT 07/14/2016 8:44 Results for this AM EST procedure are i n the results section. DIFFERENTIAL, AUTOMATED STAT 07/14/2016 8:44 R esults for this AM EST procedure are i n the results section. D-DIMER, QUANTITATIVE STAT 07/14/2016 8:44 Res ults for this AM EST procedure are i n the results section. GOLD TUBE HOLD STAT 07/14/2016 8:44 Results fo r this AM EST procedure are i n the results section. APTT STAT 07/14/2016 8:44 Results for this AM EST procedure are i n the results section. PROTHROMBIN TIME STAT 07/14/2016 8:44 Results for this AM EST procedure are i n the results section. CBC (WITH DIFF) STAT 07/14/2016 8:44 AM EST TROPONIN STAT 07/14/2016 8:44 Results for this AM EST procedure are i n the results section. PRO-BRAIN NATRIURETIC STAT 07/14/2016 8:44 Res ults for this PEPTIDE AM EST procedure are i n the results section. BASIC METABOLIC PANEL STAT 07/14/2016 8:44 Res ults for this (NON-FASTING) AM EST procedure are in the results section. POCT GLUCOSE Routine 07/14/2016 8:40 Results for this AM EST procedure are i n the results section. documented in this encounter Results SCAN DOC: FRAME COVERER (07/23/2016 12:00 AM EST) Narrative 07/23/2016 12:00 AM EST This result has an attachment that is no t available. Ordered by an unspecified provider. Scanning Provider MEDIA MGR SCAN EXT ORDR/RSLT SCAN DOC: LAB (07/23/2016 12:00 AM EST) Narrative 07/23/2016 12:00 AM EST This result has an attachment that is no t available. Ordered by an unspecified provider. Scanning Provider MEDIA MGR SCAN EXT ORDR/RSLT (ABNORMAL) CK (07/22/2016 4:26 AM EST) athologist Signature CK, Total 350 (H) 0 - 160 [facility] unit/L [facility] Specimen Anatomical Collection Method Collection Time Receive d Time (Source) Location / / Volume Laterality Blood specimen 07/22/2016 4:26 AM 017 4:42 (specimen) EST AM EST Resulting Agency Comment Spec In Lab Lizeth Campbell MD CHEMISTRY ORDERABLES Performing Organization Address City/State/[place] [address] (ABNORMAL) Hemogram (07/22/2016 4:26 AM EST) athologist Signature WBC 146.2 4.0 - 9.5 [facility] (Critical) x10(3)/[facility] LABORATORY Comment: Please note: Patients with WBC greater t jaeger 100,000 may have falsely elevated potassium levels. Contact the Clinical C hemistry Laboratory if there are any questions. RBC 2.84 (L) 4.00 - 5.21 x10(6)/[facility] LABORATORY Hemoglobin 7.9 (L) 11.7 - 15.5 gm/dL [facility] LAB[facility] Hematocrit 27.0 (L) 35.7 - 45.8 % [facility] MCV 95.1 (H) 82.6 - 94.4 fL [facility] MCH 27.8 27.1 - 32.0 pg [facility] MCHC 29.3 (L) 31.7 - 35.0 gm/dL [facility] Platelets 280 145 - 357 x10(3)/[facility] LABORATORY RDWSD 54.6 (H) 37.0 - 46.0 [facility] LABORATORY RDWCV 17.0 (H) 11.5 - 14.1 % [facility] MPV 10.3 7.6 - 12.9 fL [facility] nRBC % Auto 0.0 % [facility] nRBC Abs Auto 0.000 0.000 - 0.000 x10(3)/mcL [facility] LABORATORY Specimen Anatomical Collection Method Collection Time Receive d Time (Source) Location / / Volume Laterality Blood specimen 07/22/2016 4:26 AM 017 4:42 (specimen) EST AM EST Resulting Agency Comment Spec In Lab Lizeth Campbell MD HEMATOLOGY ORDERABLES Performing Organization Address City/State/[place] [address] Abdomen & Pelvis wo Contrast (07/21/2016 12:07 PM EST) Anatomical Region Laterality Modality Abdomen, Pelvis Computed Tomography Specimen (Source) Anatomical Location Collection Method / Collectio n Time Received Time / Laterality Volume Impressions 07/21/2016 1:21 PM EST 1. ??No retroperitoneal hematoma. 2. ??Stranding within the subcutaneous s oft tissues along the left hip extending into the left lower extremity. This like ly is an extension of the left leg hematoma. Please see separate CT report for the left lower extremity CT exam. 3. ??Subtle degree of fat stranding surr ounding the gallbladder. In the setting of right upper quadrant pain, consider a cute cholecystitis. Further evaluation with ultrasound may give additional info rmation if clinically appropriate. 4. ??Sigmoid diverticulosis without evid ence of acute diverticulitis. Narrative 07/21/2016 1:21 PM EST EXAMINATION: ??CT ABDOMEN AND PELVIS WO CONTRAST CLINICAL HISTORY: ??eval for retroperito douglas hematoma. TECHNIQUE: Helical CT of the abdomen and pelvis was performed without contrast. No oral contrast. COMPARISON: ??CT the chest on 07/11/2016 FINDINGS: The absence of intravenous contrast limi ts the evaluation of solid viscera and vasculature. Lower chest: ??Normal. Liver: Normal in size, contour, and atte nuation. Bile ducts: Nondilated. Gallbladder: No calcified gallstones. Th e absence of intravenous contrast limits the evaluation for gallbladder wall thic kening. There is a subtle degree of stranding/edema surrounding the gallblad hema which raises the possibility of cholecystitis. Pancreas: Normal. Spleen: Normal. Adrenals: Normal. Kidneys: Normal. Urinary Bladder: Normal. Vasculature: No aneurysm. Lymph Nodes: Mildly prominent left exter nal iliac lymph node measuring 7 x 21 mm. This could be due to inflammation, i nfection, or hematoma within the left lower extremity. Bowel: Sigmoid diverticulosis without ev idence of acute diverticulitis. Peritoneum and mesentery: No ascites, fr ee air, or loculated fluid collection. No mesenteric inflammation. Mesentery: Normal Abdominal wall: There is a small, subcen timeter, fat-containing umbilical hernia. Stranding is present within the subcutaneous fat on the left side deep abutting the left lateral gluteal muscle s and extending into the left lower extremity. This could be secondary to tr acking of hematoma from the left lower extremity. Reproductive organs: The uterus is absen t. No adnexal mass is seen. Osseous structures: No suspicious osseou s lesions. Some mild facet hypertrophy is present at the L4-L5 and L5-S1 levels . Procedure Note Mook Salas MD - 07/21/2016Form atting of this note might be different from the original. EXAMINATION: CT ABDOMEN AND PELVIS WO CO NTRAST CLINICAL HISTORY: eval for retroperitone al hematoma. TECHNIQUE: Helical CT of the abdomen and pelvis was performed without contrast. No oral contrast. COMPARISON: CT the chest on 07/11/2016 FINDINGS: The absence of intravenous contrast limi ts the evaluation of solid viscera and vasculature. Lower chest: Normal. Liver: Normal in size, contour, and atte nuation. Bile ducts: Nondilated. Gallbladder: No calcified gallstones. Th e absence of intravenous contrast limits the evaluation for gallbladder wall thic kening. There is a subtle degree of stranding/edema surrounding the gallblad hema which raises the possibility of cholecystitis. Pancreas: Normal. Spleen: Normal. Adrenals: Normal. Kidneys: Normal. Urinary Bladder: Normal. Vasculature: No aneurysm. Lymph Nodes: Mildly prominent left exter nal iliac lymph node measuring 7 x 21 mm. This could be due to inflammation, i nfection, or hematoma within the left lower extremity. Bowel: Sigmoid diverticulosis without ev idence of acute diverticulitis. Peritoneum and mesentery: No ascites, fr ee air, or loculated fluid collection. No mesenteric inflammation. Mesentery: Normal Abdominal wall: There is a small, subcen timeter, fat-containing umbilical hernia. Stranding is present within the subcutaneous fat on the left side deep abutting the left lateral gluteal muscle s and extending into the left lower extremity. This could be secondary to tr acking of hematoma from the left lower extremity. Reproductive organs: The uterus is absen t. No adnexal mass is seen. Osseous structures: No suspicious osseou s lesions. Some mild facet hypertrophy is present at the L4-L5 and L5-S1 levels . IMPRESSION 1. No retroperitoneal hematoma. 2. Stranding within the subcutaneous sof t tissues along the left hip extending into the left lower extremity. This like ly is an extension of the left leg hematoma. Please see separate CT report for the left lower extremity CT exam. 3. Subtle degree of fat stranding surrou nding the gallbladder. In the setting of right upper quadrant pain, consider a cute cholecystitis. Further evaluation with ultrasound may give additional info rmation if clinically appropriate. 4. Sigmoid diverticulosis without eviden ce of acute diverticulitis. Lizeth Campbell MD IMG CT ORDERABLES CT Femur wo Contrast Left (Generic) (07/21/2016 12:07 PM EST) Anatomical Region Laterality Modality Thigh Left Computed Tomography Specimen (Source) Anatomical Location Collection Method / Collectio n Time Received Time / Laterality Volume Impressions 07/21/2016 1:15 PM EST Ill-defined high-density fluid collection measuring approximately 11 x 6 x 5 cm enlarging the left vastus lateralis musc le, with surrounding muscle edema as well as lateral subcutaneous edema along the left thigh, compatible with a hematoma in the appropriate clinical set ting. Narrative 07/21/2016 1:15 PM EST EXAMINATION: CT FEMUR WO CONTRAST LEFT (GENERIC) CLINICAL HISTORY: Evaluate for hematoma or other collection TECHNIQUE: CT scan of the left thigh was performed without contrast. COMPARISON: None FINDINGS: There is an ill-defined high-density flu id collection measuring approximately 11 x 6 x 5 cm enlarging the vastus laterali s muscle, with surrounding muscle edema as well as lateral subcutaneous edema al daniel the left thigh, compatible with a hematoma in the appropriate clinical set ting. There are postsurgical changes of prior anterior cruciate ligament graft reconstruction at the left knee. There i s left knee osteoarthritis characterized by uohuvt-tinqiiq-nlea-lateral joint spa ce narrowing and subchondral sclerosis. The right foot is partly included in the field of view. There is linear calcification along the medial cord of t he right plantar fascia compatible with chronic plantar fasciitis. Atherosclerotic vascular calcifications are seen. Colonic diverticuli are seen in the part ly imaged pelvis. For more information about the intra-abdominal and intrapelvi c organs, please see the report from the concurrently obtained CT scan of the abd omen and pelvis. Procedure Note Hollie Hunter MD - 07/21/2016Formatting o f this note might be different from the original. EXAMINATION: CT FEMUR WO CONTRAST LEFT ( GENERIC) CLINICAL HISTORY: Evaluate for hematoma or other collection TECHNIQUE: CT scan of the left thigh was performed without contrast. COMPARISON: None FINDINGS: There is an ill-defined high-density flu id collection measuring approximately 11 x 6 x 5 cm enlarging the vastus laterali s muscle, with surrounding muscle edema as well as lateral subcutaneous edema al daniel the left thigh, compatible with a hematoma in the appropriate clinical set ting. There are postsurgical changes of prior anterior cruciate ligament graft reconstruction at the left knee. There i s left knee osteoarthritis characterized by xpyypt-qpnacpk-jtpq-lateral joint spa ce narrowing and subchondral sclerosis. The right foot is partly included in the field of view. There is linear calcification along the medial cord of t he right plantar fascia compatible with chronic plantar fasciitis. Atherosclerotic vascular calcifications are seen. Colonic diverticuli are seen in the part ly imaged pelvis. For more information about the intra-abdominal and intrapelvi c organs, please see the report from the concurrently obtained CT scan of the abd omen and pelvis. IMPRESSION Ill-defined high-density fluid collectio n measuring approximately 11 x 6 x 5 cm enlarging the left vastus lateralis musc le, with surrounding muscle edema as well as lateral subcutaneous edema along the left thigh, compatible with a hematoma in the appropriate clinical set ting. Lizeth Campbell MD IMG CT ORDERABLES (ABNORMAL) Hemogram (07/21/2016 5:28 AM EST) P athologist Signature WBC 138.7 4.0 - 9.5 [facility] (Critical) x10(3)/[facility] LABORATORY Comment: Please note: Patients with WBC greater t jaeger 100,000 may have falsely elevated potassium levels. Contact the Clinical C hemistry Laboratory if there are any questions. RBC 2.71 (L) 4.00 - 5.21 x10(6)/[facility] LABORATORY Hemoglobin 7.6 (L) 11.7 - 15.5 gm/dL [facility] LAB[facility] Hematocrit 24.9 (L) 35.7 - 45.8 % [facility] LAB[facility]ATORY MCV 91.9 82.6 - 94.4 [facility] LABORATORY MCH 28.0 27.1 - 32.0 pg [facility] LAB[facility]ORY MCHC 30.5 (L) 31.7 - 35.0 gm/dL [facility] LABORATORY Platelets 221 145 - 357 x10(3)/[facility] LABORATORY RDWSD 53.4 (H) 37.0 - 46.0 [facility] LABORATORY RDWCV 17.3 (H) 11.5 - 14.1 % [facility] LABORATORY MPV 10.4 7.6 - 12.9 [facility] LABORATORY nRBC % Auto 0.0 % [facility] LAB[facility]ATORY nRBC Abs Auto 0.000 0.000 - 0.000 x10(3)/[facility] LABORATORY Specimen Anatomical Collection Method Collection Time Receive d Time (Source) Location / / Volume Laterality Blood specimen 07/21/2016 5:28 AM 017 5:56 (specimen) EST AM EST Resulting Agency Comment Spec In Lab Lizeth Campbell MD HEMATOLOGY ORDERABLES Performing Organization Address City/State/[place] [address] MRI Angiogram Neck wwo Contrast (Generic) (07/20/2016 9:00 PM EST) Anatomical Region Laterality Modality Neck Magnetic Resonance Specimen (Source) Anatomical Location Collection Method / Collectio n Time Received Time / Laterality Volume Impressions 07/21/2016 8:51 AM EST Multiple acute bilateral MCA infarctions with no significant mass effect. No significant vascular abnormalities. Narrative 07/21/2016 8:51 AM EST EXAMINATION: MRI ANGIOGRAM NECK WWO CONTRAST (GENERIC), MRI ANGIOGRAM HEAD & MRI BRAIN WO CONTRAST CLINICAL HISTORY: 66 yo F wiht new R CVA . MRA neck for stroke workup TECHNIQUE: MRI the brain without contras t, MRA [place] without contrast, MRI neck with and without cont rast. 8 cc Gadovist administered. COMPARISON: The mid CT head dated 017. FINDINGS: MRI BRAIN: Multiple new sites of restric nora diffusion identified within the bilateral frontal and parietal lobes, le ft more extensive than right. These are mostly cortically based except for the l argest area of restricted diffusion in the left frontal lobe that extends into the jackson radiata. No significant mass effect. The ventricles are normal size a nd configuration. Midline structures appear normal. Paranasal sinuses are mos tly clear as are the mastoid air cells. Postsurgical change involves the right g lobe. MRA [place]: The intracranial v essels are normal course and caliber without focal stenoses or aneurysms. The right A1 segment is absent; a normal anatomic variant. MRA neck: The postcontrast imaging is li mited because of poor timing of the contrast bolus, but no significant steno ses are identified. Procedure Note Bryce Freed MD - 07/21/2016Formatti ng of this note might be different from the original. EXAMINATION: MRI ANGIOGRAM NECK WWO CONT RAST (GENERIC), MRI ANGIOGRAM HEAD & MRI BRAIN WO CONTRAST CLINICAL HISTORY: 66 yo F wiht new R CVA . MRA neck for stroke workup TECHNIQUE: MRI the brain without contras t, MRA [place] without contrast, MRI neck with and without cont rast. 8 cc Gadovist administered. COMPARISON: The mid CT head dated 017. FINDINGS: MRI BRAIN: Multiple new sites of restric nora diffusion identified within the bilateral frontal and parietal lobes, le ft more extensive than right. These are mostly cortically based except for the l argest area of restricted diffusion in the left frontal lobe that extends into the jackson radiata. No significant mass effect. The ventricles are normal size a nd configuration. Midline structures appear normal. Paranasal sinuses are mos tly clear as are the mastoid air cells. Postsurgical change involves the right g lobe. MRA [place]: The intracranial v essels are normal course and caliber without focal stenoses or aneurysms. The right A1 segment is absent; a normal anatomic variant. MRA neck: The postcontrast imaging is li mited because of poor timing of the contrast bolus, but no significant steno ses are identified. IMPRESSION Multiple acute bilateral MCA infarctions with no significant mass effect. No significant vascular abnormalities. Lizeth Campbell MD IMG MRI ORDERABLES MRI Angiogram Head & MRI Brain wo Contrast (07/20/2016 9:00 PM EST) Anatomical Region Laterality Modality Head Magnetic Resonance Specimen (Source) Anatomical Location Collection Method / Collectio n Time Received Time / Laterality Volume Impressions 07/21/2016 8:51 AM EST Multiple acute bilateral MCA infarctions with no significant mass effect. No significant vascular abnormalities. Narrative 07/21/2016 8:51 AM EST EXAMINATION: MRI ANGIOGRAM NECK WWO CONTRAST (GENERIC), MRI ANGIOGRAM HEAD & MRI BRAIN WO CONTRAST CLINICAL HISTORY: 66 yo F wiht new R CVA . MRA neck for stroke workup TECHNIQUE: MRI the brain without contras t, MRA [place] without contrast, MRI neck with and without cont rast. 8 cc Gadovist administered. COMPARISON: The mid CT head dated 017. FINDINGS: MRI BRAIN: Multiple new sites of restric nora diffusion identified within the bilateral frontal and parietal lobes, le ft more extensive than right. These are mostly cortically based except for the l argest area of restricted diffusion in the left frontal lobe that extends into the jackson radiata. No significant mass effect. The ventricles are normal size a nd configuration. Midline structures appear normal. Paranasal sinuses are mos tly clear as are the mastoid air cells. Postsurgical change involves the right g lobe. MRA [place] of [place]: The intracranial v essels are normal course and caliber without focal stenoses or aneurysms. The right A1 segment is absent; a normal anatomic variant. MRA neck: The postcontrast imaging is li mited because of poor timing of the contrast bolus, but no significant steno ses are identified. Procedure Note Bryce Freed MD - 07/21/2016Formatti ng of this note might be different from the original. EXAMINATION: MRI ANGIOGRAM NECK WWO CONT RAST (GENERIC), MRI ANGIOGRAM HEAD & MRI BRAIN WO CONTRAST CLINICAL HISTORY: 66 yo F wiht new R CVA . MRA neck for stroke workup TECHNIQUE: MRI the brain without contras t, MRA one[place] of [place] without contrast, MRI neck with and without cont rast. 8 cc Gadovist administered. COMPARISON: The mid CT head dated 017. FINDINGS: MRI BRAIN: Multiple new sites of restric nora diffusion identified within the bilateral frontal and parietal lobes, le ft more extensive than right. These are mostly cortically based except for the l argest area of restricted diffusion in the left frontal lobe that extends into the jackson radiata. No significant mass effect. The ventricles are normal size a nd configuration. Midline structures appear normal. Paranasal sinuses are mos tly clear as are the mastoid air cells. Postsurgical change involves the right g lobe. MRA oneida of [place]: The intracranial v essels are normal course and caliber without focal stenoses or aneurysms. The right A1 segment is absent; a normal anatomic variant. MRA neck: The postcontrast imaging is li mited because of poor timing of the contrast bolus, but no significant steno ses are identified. IMPRESSION Multiple acute bilateral MCA infarctions with no significant mass effect. No significant vascular abnormalities. Lizeth Campbell MD [facility] MRI ORDERABLES Prepare RBC (07/20/2016 11:05 AM EST) athologist Signature Dispensed? Yes [facility]ORATORY Specimen Anatomical Collection Method Collection Time Receive d Time (Source) Location / / Volume Laterality Blood specimen 07/20/2016 11:05 7 (specimen) AM EST 11:05 AM EST Resulting Agency Comment Spec In Lab Lizeth Campbell MD BLOOD BANK ORDERABLES Performing Organization Address City/State/[place] [address] (ABNORMAL) Hemogram (07/20/2016 7:04 AM EST) P athologist Signature WBC 142.5 4.0 - 9.5 [facility] (Critical) x10(3)/[facility] LABORATORY Comment: Please note: Patients with WBC greater t jaeger 100,000 may have falsely elevated potassium levels. Contact the Clinical C hemistry Laboratory if there are any questions. RBC 2.52 (L) 4.00 - 5.21 x10(6)/[facility] LABORATORY Hemoglobin 7.0 (L) 11.7 - 15.5 gm/dL [facility] Hematocrit 23.7 (L) 35.7 - 45.8 % [facility] MCV 94.0 82.6 - 94.4 fL [facility] MCH 27.8 27.1 - 32.0 pg [facility] MCHC 29.5 (L) 31.7 - 35.0 gm/dL [facility] Platelets 191 145 - 357 x10(3)/[facility] LABORATORY RDWSD 54.4 (H) 37.0 - 46.0 [facility] LABORATORY RDWCV 17.6 (H) 11.5 - 14.1 % [facility] MPV 10.4 7.6 - 12.9 fL [facility] nRBC % Auto 0.0 % [facility] nRBC Abs Auto 0.000 0.000 - 0.000 x10(3)/[facility] LABORATORY Specimen Anatomical Collection Method Collection Time Receive d Time (Source) Location / / Volume Laterality Blood specimen 07/20/2016 7:04 AM 017 7:08 (specimen) EST AM EST Resulting Agency Comment Spec In Lab Lizeth Campbell MD HEMATOLOGY ORDERABLES Performing Organization Address City/State/[place] [address] (ABNORMAL) CMP w/fasting Glucose (07/19/2016 4:48 AM EST) athologist Signature Glucose 138 (H) 65 - 99 [facility] Fasting mg/dL [facility] Comment: ?Fasting* Glucose Interpretive C riteria Normal ?65-99 mg/dL Impaired Fasting glucose ?100-125 mg/dL Consistent with Diabetes Mellitus ? >or= 126 mg/dL *Fasting is defined as no caloric intake for at least 8 hours In the absence of unequivocal hypergly cemia a plasma glucose value of >or= 126 mg/dL should be repeated on a subseq uent day. Diagnosis and Classification of Diabetes Mellitus, Position Statement from the [employer]. ??Diabete s Care, Volume 33, Supplement 1, May 2009 BUN 10 8 - 18 mg/dL [facility] Creatinine 0.67 (L) 0.70 - 1.20 mg/dL [facility] Comment: Please note that the pediatric reference intervals supplied above were not validated at [facility]. Results from pediatri c patients should be interpreted in conjunction to the patient's age, height and muscle mass. Sodium 142 135 - 145 mmol/L [facility] Potassium See Note 3.5 - 5.0 mmol/L [facility] Comment: Patient WBC >100K , Needs to be run on a gold top. Called by: july, Read back by: Zelda, Date /Time:07/19/16 05:43. Please note: ??Patients with WBC >100,00 0 may have falsely elevated Potassium levels. ??For accurate Potassium quantif ication in these patients send serum separator tube (gold top) for subsequent determinations. ??Contact the Clinical Chemistry Laboratory if there are any qu estions. Chloride 105 98 - 107 mmol/L [facility] CO2 25 22 - 31 mmol/L [facility] Anion Gap 12 5 - 15 mmol/L [facility] Calcium 7.9 (L) 8.5 - 10.5 mg/dL [facility] Total Protein 5.0 (L) 6.1 - 8.0 gm/dL [facility] Albumin 2.8 (L) 3.2 - 5.2 gm/dL [facility] AST 54 (H) 0 - 30 unit/L [facility] ALT 46 (H) 0 - 30 unit/L [facility] Alk Phos 53 40 - 104 unit/L [facility] Total Bilirubin 0.7 0.2 - 1.3 mg/dL [facility] Bili, Direct 0.1 0.0 - 0.3 mg/dL [facility] Estimated GFR >60 >=60 [facility] Comment: This estimated GFR (eGFR) [...] the following links into your internet browser. [email or web address] [email or web address] Specimen Anatomical Collection Method Collection Time Receive d Time (Source) Location / / Volume Laterality Blood specimen 07/19/2016 4:48 AM 017 4:58 (specimen) EST AM EST Resulting Agency Comment Spec In Lab Lizeth Campbell MD CHEMISTRY ORDERABLES Performing Organization Address City/State/ZIP Code Phon e Number [place] [id number] (ABNORMAL) Hemogram (07/19/2016 4:48 AM EST) P athologist Signature WBC 130.4 4.0 - 9.5 [facility] (Critical) x10(3)/[facility] LABORATORY Comment: Please note: Patients with WBC greater t jaeger 100,000 may have falsely elevated potassium levels. Contact the Clinical C hemistry Laboratory if there are any questions. RBC 2.64 (L) 4.00 - 5.21 x10(6)/[facility] LABORATORY Hemoglobin 7.5 (L) 11.7 - 15.5 gm/dL [facility] Hematocrit 23.9 (L) 35.7 - 45.8 % [facility] MCV 90.5 82.6 - 94.4 fL [facility] MCH 28.4 27.1 - 32.0 pg [facility] MCHC 31.4 (L) 31.7 - 35.0 gm/dL [facility] Platelets 154 145 - 357 x10(3)/[facility] LABORATORY RDWSD 52.6 (H) 37.0 - 46.0 fL [facility] RDWCV 17.3 (H) 11.5 - 14.1 % [facility] MPV 10.4 7.6 - 12.9 fL [facility] nRBC % Auto 0.0 % [facility] nRBC Abs Auto 0.020 (H) 0.000 - 0.000 x10(3)/[facility] LABORATORY Specimen Anatomical Collection Method Collection Time Receive d Time (Source) Location / / Volume Laterality Blood specimen 07/19/2016 4:48 AM 017 4:58 (specimen) EST AM EST Resulting Agency Comment Spec In Lab Lizeth Campbell MD HEMATOLOGY ORDERABLES Performing Organization Address City/State/ZIP Code Phon e Number [address] Transfuse RBC (07/18/2016 4:59 PM EST) Lizeth Campbell MD NURSING TREATMENT ORDERABLES - BLOOD ADMIN Transfuse RBC (07/18/2016 4:59 PM EST) Lizeth Campbell MD NURSING TREATMENT ORDERABLES - BLOOD ADMIN ABORH Recheck Status (07/18/2016 12:32 PM EST) [facility] gist Method Time Signature ABORH Type Completed [facility] LABORATORY Specimen Anatomical Collection Method Collection Time Receive d Time (Source) Location / / Volume Laterality Blood specimen 07/18/2016 12:32 7 (specimen) PM EST 12:47 PM EST Resulting Agency Comment Spec In Lab Lizeth Campbell MD BLOOD BANK ORDERABLES Performing Organization Address City/State/ZIP Code Phon e Number [address] Antibody screen (07/18/2016 12:32 PM EST) Patholo gist Method Time Signature Ab Screen Negative [facility] LABORATORY Expires at 07/21/2016 MADIHA BROUSSARD [id number] on: [facility] Specimen Anatomical Collection Method Collection Time Receive d Time (Source) Location / / Volume Laterality Blood specimen 07/18/2016 12:32 7 (specimen) PM EST 12:47 PM EST Resulting Agency Comment Spec In Lab Lizeth Campbell MD BLOOD BANK ORDERABLES Performing Organization Address City/State/ZIP Code Phon e Number [address] ABO/Rh Typing (07/18/2016 12:32 PM EST) P athologist Signature ABORh Type A Neg [facility] Specimen Anatomical Collection Method Collection Time Receive d Time (Source) Location / / Volume Laterality Blood specimen 07/18/2016 12:32 7 (specimen) PM EST 12:47 PM EST Resulting Agency Comment Spec In Lab Lizeth Campbell MD BLOOD BANK ORDERABLES Performing Organization Address City/State/ZIP Code Phon e Number [address] Prepare RBC (07/18/2016 11:40 AM EST) P athologist Signature Dispensed? Yes [facility] Specimen Anatomical Collection Method Collection Time Receive d Time (Source) Location / / Volume Laterality Blood specimen 07/18/2016 11:40 7 (specimen) AM EST 11:40 AM EST Lizeth Campbell MD BLOOD BANK ORDERABLES Performing Organization Address City/[facility]/ZIP Code Phon e Number [address] (ABNORMAL) Hemogram (07/18/2016 8:09 AM EST) P athologist Signature WBC 137.3 4.0 - 9.5 [facility] (Critical) x10(3)/[facility] LABORATORY Comment: Please note: Patients with WBC greater t jaeger 100,000 may have falsely elevated potassium levels. Contact the Clinical C hemistry Laboratory if there are any questions. RBC 2.31 (L) 4.00 - 5.21 x10(6)/[facility] LABORATORY Hemoglobin 6.9 (L) 11.7 - 15.5 gm/dL [facility] Hematocrit 21.9 (L) 35.7 - 45.8 % [facility] MCV 94.8 (H) 82.6 - 94.4 fL [facility] MCH 29.9 27.1 - 32.0 pg [facility] MCHC 31.5 (L) 31.7 - 35.0 gm/dL [facility]ORATORY Platelets 147 145 - 357 x10(3)/[facility] LABORATORY RDWSD 50.8 (H) 37.0 - 46.0 [facility] LABORATORY RDWCV 15.8 (H) 11.5 - 14.1 % [facility] LABORATORY MPV 11.0 7.6 - 12.9 [facility] LABORATORY nRBC % Auto 0.0 % [facility] nRBC Abs Auto 0.000 0.000 - 0.000 x10(3)/[facility] LABORATORY Specimen Anatomical Collection Method Collection Time Receive d Time (Source) Location / / Volume Laterality Blood specimen No Charge / 07/18/2016 8:09 AM 017 (specimen) Unknown EST 11:11 AM EST Resulting Agency Comment Spec In Lab Kareen Figueroa MD HEMATOLOGY ORDERABLES Performing Organization Address City/State/[place] [address] Lavender Tube HOLD (07/18/2016 8:09 AM EST) [facility] gist Method Time Signature Lavender Hold Sample in [facility]. [facility] Specimen Anatomical Collection Method Collection Time Receive d Time (Source) Location / / Volume Laterality Blood specimen No Charge / 07/18/2016 8:09 AM 017 8:16 (specimen) Unknown EST AM EST Kareen Figueroa MD HEMATOLOGY ORDERABLES Performing Organization Address City/State/ZIP Code Phon e Number [address] Green Tube HOLD (07/18/2016 8:09 AM EST) athologist Signature Green Hold Sample in [facility] lab. [facility] Specimen Anatomical Collection Method Collection Time Receive d Time (Source) Location / / Volume Laterality Blood specimen No Charge / 07/18/2016 8:09 AM 017 8:15 (specimen) Unknown EST AM EST Kareen Figueroa MD CHEMISTRY ORDERABLES Performing Organization Address City/[facility]/ZIP Code Phon e Number [address] (ABNORMAL) CMP w/fasting Glucose (07/17/2016 4:00 AM EST) athologist Signature Glucose 124 (H) 65 - 99 [facility] Fasting mg/dL [facility] Comment: ?Fasting* Glucose Interpretive C riteria Normal ?65-99 mg/dL Impaired Fasting glucose ?100-125 mg/dL Consistent with Diabetes Mellitus ? >or= 126 mg/dL *Fasting is defined as no caloric intake for at least 8 hours In the absence of unequivocal hypergly cemia a plasma glucose value of >or= 126 mg/dL should be repeated on a subseq uent day. Diagnosis and Classification of Diabetes Mellitus, Position Statement from the [employer]. ??Diabete s Care, Volume 33, Supplement 1, May 2009 BUN 13 8 - 18 mg/dL [facility] Creatinine 0.73 0.70 - 1.20 mg/dL [facility] Comment: Please note that the pediatric reference intervals supplied above were not validated at [facility]. Results from pediatri c patients should be interpreted in conjunction to the patient's age, height and muscle mass. Sodium 144 135 - 145 mmol/L [facility] Potassium See Note 3.5 - 5.0 mmol/L [facility] Comment: Plasma Potassium result is 4.2 mmol/L, s uspect pseudohyperkalemia. ??Recheck Potassium result on serum sample. 04:57 Please note: ??Patients with WBC >100,00 0 may have falsely elevated Potassium levels. ??For accurate Potassium quantif ication in these patients send serum separator tube (gold top) for subsequent determinations. ??Contact the Clinical Chemistry Laboratory if there are any qu estions. Chloride 112 (H) 98 - 107 mmol/L [facility] CO2 22 22 - 31 mmol/L [facility] Anion Gap 10 5 - 15 mmol/L [facility] Calcium 7.5 (L) 8.5 - 10.5 mg/dL [facility] Total Protein 4.8 (L) 6.1 - 8.0 gm/dL [facility] Albumin 3.1 (L) 3.2 - 5.2 gm/dL [facility] AST 52 (H) 0 - 30 unit/L [facility] ALT 36 (H) 0 - 30 unit/L [facility] Alk Phos 47 40 - 104 unit/L [facility] Total Bilirubin 0.3 0.2 - 1.3 mg/dL [facility] Bili, Direct 0.1 0.0 - 0.3 mg/dL [facility] Estimated GFR >60 >=60 [facility] Comment: This estimated GFR (eGFR) [...] the following links into your internet browser. [email or web address] [email or web address] Specimen Anatomical Collection Method Collection Time Receive d Time (Source) Location / / Volume Laterality Blood specimen 07/17/2016 4:00 AM 017 4:07 (specimen) EST AM EST Resulting Agency Comment Spec In Lab Lizeth Campbell MD CHEMISTRY ORDERABLES Performing Organization Address City/State/[place] [address] (ABNORMAL) Hemogram (07/17/2016 4:00 AM EST) athologist Signature WBC 143.0 4.0 - 9.5 [facility] (Critical) x10(3)/[facility] LABORATORY Comment: Please note: Patients with WBC greater t jaeger 100,000 may have falsely elevated potassium levels. Contact the Clinical C hemistry Laboratory if there are any questions. RBC 2.68 (L) 4.00 - 5.21 x10(6)/[facility] LABORATORY Hemoglobin 7.8 (L) 11.7 - 15.5 gm/dL [facility] Hematocrit 24.7 (L) 35.7 - 45.8 % [facility] LABORATORY MCV 92.2 82.6 - 94.4 [facility] LABORATORY MCH 29.1 27.1 - 32.0 pg [facility]ORATORY MCHC 31.6 (L) 31.7 - 35.0 gm/dL [facility]ORATORY Platelets 135 (L) 145 - 357 x10(3)/[facility] LABORATORY RDWSD 49.2 (H) 37.0 - 46.0 [facility] LABORATORY RDWCV 15.8 (H) 11.5 - 14.1 % [facility] LABORATORY MPV 10.9 7.6 - 12.9 [facility] LABORATORY nRBC % Auto 0.0 % [facility] nRBC Abs Auto 0.030 (H) 0.000 - 0.000 x10(3)/[facility] LABORATORY Specimen Anatomical Collection Method Collection Time Receive d Time (Source) Location / / Volume Laterality Blood specimen 07/17/2016 4:00 AM 017 4:07 (specimen) EST AM EST Resulting Agency Comment Spec In Lab Lizeth Campbell MD HEMATOLOGY ORDERABLES Performing Organization Address City/State/[place] [address] (ABNORMAL) Hemogram (07/16/2016 2:40 PM EST) athologist Signature WBC 131.9 4.0 - 9.5 [facility] (Critical) x10(3)/[facility] LABORATORY Comment: Please note: Patients with WBC greater t jaeger 100,000 may have falsely elevated potassium levels. Contact the Clinical C hemistry Laboratory if there are any questions. RBC 2.81 (L) 4.00 - 5.21 x10(6)/[facility] LABORATORY Hemoglobin 8.4 (L) 11.7 - 15.5 gm/dL [facility] Hematocrit 26.2 (L) 35.7 - 45.8 % [facility] LABORATORY MCV 93.2 82.6 - 94.4 [facility] LABORATORY MCH 29.9 27.1 - 32.0 pg [facility]ORATORY MCHC 32.1 31.7 - 35.0 gm/dL [facility] LABORATORY Platelets 124 (L) 145 - 357 x10(3)/[facility] LABORATORY RDWSD 47.1 (H) 37.0 - 46.0 [facility] LABORATORY RDWCV 14.6 (H) 11.5 - 14.1 % [facility] LABORATORY MPV 10.6 7.6 - 12.9 [facility] LABORATORY nRBC % Auto 0.0 % [facility] LAB[facility] nRBC Abs Auto 0.000 0.000 - 0.000 x10(3)/[facility] LABORATORY Specimen Anatomical Collection Method Collection Time Receive d Time (Source) Location / / Volume Laterality Blood specimen 07/16/2016 2:40 PM 017 2:52 (specimen) EST PM EST Resulting Agency Comment Spec In Lab Lizeth Campbell MD HEMATOLOGY ORDERABLES Performing Organization Address City/[facility]/[place] [address] Prepare RBC (07/16/2016 9:30 AM EST) P athologist Signature Dispensed? Yes [facility]OR[facility]ORY Specimen Anatomical Collection Method Collection Time Receive d Time (Source) Location / / Volume Laterality Blood specimen No Charge / 07/16/2016 9:30 AM 017 9:30 (specimen) Unknown EST AM EST Resulting Agency Comment Spec In Lab Kareen Figueroa MD BLOOD BANK ORDERABLES Performing Organization Address City/[facility]/[place] [address] Prepare RBC (07/16/2016 9:30 AM EST) P athologist Signature Dispensed? Yes [facility]OR[facility]ORY Specimen Anatomical Collection Method Collection Time Receive d Time (Source) Location / / Volume Laterality Blood specimen 07/16/2016 9:30 AM 017 9:28 (specimen) EST AM EST Lizeth Campbell MD BLOOD BANK ORDERABLES Performing Organization Address City/[facility]/[place] [address] Scan, Peripheral Blood (07/16/2016 8:45 AM EST) Patholo gist Method Time Signature Plat Estimate Decreased [facility] RBC Morphology Normal [facility] Smudge Cells Present [facility] LABORATORY Specimen Anatomical Collection Method Collection Time Receive d Time (Source) Location / / Volume Laterality Blood specimen 07/16/2016 8:45 AM 017 8:52 (specimen) EST AM EST Resulting Agency Comment Spec In Lab Regina Hill MD HEMATOLOGY ORDERABLES Performing Organization Address City/[facility]/[place] [address] (ABNORMAL) CMP w/fasting Glucose (07/16/2016 8:45 AM EST) athologist Signature Glucose 162 (H) 65 - 99 [facility] Fasting mg/dL [facility] Comment: ?Fasting* Glucose Interpretive C riteria Normal ?65-99 mg/dL Impaired Fasting glucose ?100-125 mg/dL Consistent with Diabetes Mellitus ? >or= 126 mg/dL *Fasting is defined as no caloric intake for at least 8 hours In the absence of unequivocal hypergly cemia a plasma glucose value of >or= 126 mg/dL should be repeated on a subseq uent day. Diagnosis and Classification of Diabetes Mellitus, Position Statement from the [employer]. ??Diabete s Care, Volume 33, Supplement 1, May 2009 BUN 16 8 - 18 mg/dL [facility]ORY Creatinine 0.86 0.70 - 1.20 mg/dL [facility] Comment: Please note that the pediatric reference intervals supplied above were not validated at [facility]. Results from pediatri c patients should be interpreted in conjunction to the patient's age, height and muscle mass. Sodium 140 135 - 145 mmol/L [facility] Potassium See Note 3.5 - 5.0 mmol/L [facility] Comment: Plasma Potassium result is 4.2 mmol/L, s uspect pseudohyperkalemia. ??Recheck Potassium result on serum sample. 09:40 Please note: ??Patients with WBC >100,00 0 may have falsely elevated Potassium levels. ??For accurate Potassium quantif ication in these patients send serum separator tube (gold top) for subsequent determinations. ??Contact the Clinical Chemistry Laboratory if there are any qu estions. Chloride 110 (H) 98 - 107 mmol/L [facility] CO2 20 (L) 22 - 31 mmol/L [facility] Anion Gap 10 5 - 15 mmol/L [facility] Calcium 7.4 (L) 8.5 - 10.5 mg/dL [facility] Total Protein 4.5 (L) 6.1 - 8.0 gm/dL [facility] Albumin 3.0 (L) 3.2 - 5.2 gm/dL [facility] AST 42 (H) 0 - 30 unit/L [facility] ALT 23 0 - 30 unit/L [facility] Alk Phos 46 40 - 104 unit/L [facility] Total Bilirubin 0.2 0.2 - 1.3 mg/dL [facility] Bili, Direct 0.1 0.0 - 0.3 mg/dL [facility] Estimated GFR >60 >=60 [facility] Comment: This estimated GFR (eGFR) [...] the following links into your internet browser. [email or web address] [email or web address] Specimen Anatomical Collection Method Collection Time Receive d Time (Source) Location / / Volume Laterality Blood specimen 07/16/2016 8:45 AM 017 8:52 (specimen) EST AM EST Resulting Agency Comment Spec In Lab Lizeth Campbell MD CHEMISTRY ORDERABLES Performing Organization Address City/State/[place] [address] (ABNORMAL) Hemogram (07/16/2016 8:45 AM EST) athologist Signature WBC 152.0 4.0 - 9.5 [facility] (Critical) x10(3)/[facility] LABORATORY Comment: Please note: Patients with WBC greater t jaeger 100,000 may have falsely elevated potassium levels. Contact the Clinical C hemistry Laboratory if there are any questions.. This result has been called to AIYANA OLSON by Dinah Hyman on 07 16 2016 at 0918, and has been read back. RBC 2.19 (L) 4.00 - 5.21 x10(6)/[facility] LABORATORY Hemoglobin 6.4 (L) 11.7 - 15.5 gm/dL [facility] LABORATORY Comment: This result has been called to AIYANA CONTEH by Dinah Hyman on 07 16 2016 at 0918, and has been read back. Hematocrit 21.6 (L) 35.7 - 45.8 % [facility] LABORATORY MCV 98.6 (H) 82.6 - 94.4 [facility] LABORATORY MCH 29.2 27.1 - 32.0 pg [facility] LABORATORY MCHC 29.6 (L) 31.7 - 35.0 gm/dL [facility] LABORATORY Platelets 140 (L) 145 - 357 x10(3)/[facility] LABORATORY RDWSD 50.4 (H) 37.0 - 46.0 [facility] LABORATORY RDWCV 15.2 (H) 11.5 - 14.1 % [facility] LABORATORY MPV 10.9 7.6 - 12.9 [facility] LABORATORY nRBC % Auto 0.0 % [facility] LABORATORY nRBC Abs Auto 0.000 0.000 - 0.000 x10(3)/[facility] LABORATORY Specimen Anatomical Collection Method Collection Time Receive d Time (Source) Location / / Volume Laterality Blood specimen 07/16/2016 8:45 AM 017 8:52 (specimen) EST AM EST Resulting Agency Comment Spec In Lab Lizeth Campbell MD HEMATOLOGY ORDERABLES Performing Organization Address City/State/[place] [address] Fibrinogen (07/16/2016 2:30 AM EST) P athologist Signature Fibrinogen 196 180 - 510 [facility] mg/dL [facility] LABORATORY Comment: A fibrinogen level >100 mg/dL is adequat e for hemostasis in most patients without underlying bleeding disorders. Specimen Anatomical Collection Method Collection Time Receive d Time (Source) Location / / Volume Laterality Blood specimen 07/16/2016 2:30 AM 017 2:46 (specimen) EST AM EST Resulting Agency Comment Spec In Lab Regina Hill MD HEMATOLOGY ORDERABLES Performing Organization Address City/[facility]/ZIP [facility] Phon e Number [address] (ABNORMAL) Fibrinogen (07/15/2016 3:58 PM EST) athologist Signature Fibrinogen 162 (L) 180 - 510 [facility] mg/dL [facility] LAB[facility]ORY Comment: A fibrinogen level >100 mg/dL is adequat e for hemostasis in most patients without underlying bleeding disorders. Specimen Anatomical Collection Method Collection Time Receive d Time (Source) Location / / Volume Laterality Blood specimen 07/15/2016 3:58 PM 017 4:14 (specimen) EST PM EST Resulting Agency Comment Spec In Lab Regina Hill MD HEMATOLOGY ORDERABLES Performing Organization Address City/[facility]/ZIP Code Phon e Number [address] Scan, Peripheral Blood (07/15/2016 2:10 PM EST) [facility] gist Method Time Signature Plat Estimate Decreased [facility] LABORATORY RBC Morphology Normal [facility] LABORATORY Specimen Anatomical Collection Method Collection Time Receive d Time (Source) Location / / Volume Laterality Blood specimen 07/15/2016 2:10 PM 017 2:22 (specimen) EST PM EST Resulting Agency Comment Spec In Lab Regina Hill MD HEMATOLOGY ORDERABLES Performing Organization Address City/[facility]/[place] [address] (ABNORMAL) Differential, Automated (07/15/2016 2:10 PM EST) Patholo gist Method Time Signature Neutrophils % 7.8 % [facility] LABORATORY Neutr Abs (ANC) 11.93 (H) 1.70 - [facility] 6.10 [facility] x10(3)/[facility] LABORATORY Lymphocytes % 90.9 % [facility] LABORATORY Comment: Abnormal Immature forms present . Lymphocytes Abs 138.7 (H) 0.9 - 3.2 x10(3)/[facility] LABORATORY Monocytes % 0.7 % [facility] LABORATORY Monocyte Abs 1.1 (H) 0.3 - 0.9 x10(3)/[facility] LABORATORY Eosinophils % 0.0 % [facility] LABORATORY Eosinophils Abs 0.0 0.0 - 0.4 x10(3)/[facility] LABORATORY Basophils % 0.1 % [facility] LABORATORY Basophils Abs 0.1 0.0 - 0.1 x10(3)/[facility] LABORATORY Immature Gran % 0.50 % [facility] LABORATORY Comment: Immature granulocytes(IG's)percentage an d absolute count will include metamyelocytes, myelocytes, and promyelo cytes. Blood smears from CBCs yielding IG's will be scanned manually for concor dance. If this scan disagrees with the automated IG or if promyelocytes are not ed, a manual differential will be performed. Claudia Gran Abs 0.71 (H) 0.00 - 0.04 x10(3)/[facility] LABORATORY Specimen Anatomical Collection Method Collection Time Receive d Time (Source) Location / / Volume Laterality Blood specimen 07/15/2016 2:10 PM 017 2:22 (specimen) EST PM EST Resulting Agency Comment Spec In Lab Regina Hill MD HEMATOLOGY ORDERABLES Performing Organization Address City/State/[place] [address] (ABNORMAL) Hemogram (07/15/2016 2:10 PM EST) P athologist Signature WBC 152.5 4.0 - 9.5 MADIHA BOBO (Critical) x10(3)/[facility] LABORATORY Comment: Please note: Patients with WBC greater t jaeger 100,000 may have falsely elevated potassium levels. Contact the Clinical C hemistry Laboratory if there are any questions.. This result has been called to NOT CALLED by DOROTEO BARRAGAN on 07 15 2016 at 1530, and has not been jacquie d back. MATCHES PREVIOUS RBC 2.86 (L) 4.00 - 5.21 x10(6)/[facility] LABORATORY Hemoglobin 8.4 (L) 11.7 - 15.5 gm/dL [facility] LABORATORY Hematocrit 27.6 (L) 35.7 - 45.8 % [facility] LABORATORY MCV 96.5 (H) 82.6 - 94.4 [facility] LABORATORY MCH 29.4 27.1 - 32.0 pg [facility] LABORATORY MCHC 30.4 (L) 31.7 - 35.0 gm/dL [facility] LABORATORY Platelets 135 (L) 145 - 357 x10(3)/[facility] LABORATORY RDWSD 49.5 (H) 37.0 - 46.0 [facility] LABORATORY RDWCV 14.6 (H) 11.5 - 14.1 % [facility] LABORATORY MPV 11.1 7.6 - 12.9 [facility] LABORATORY nRBC % Auto 0.0 % [facility] LABORATORY nRBC Abs Auto 0.000 0.000 - 0.000 x10(3)/[facility] LABORATORY Specimen Anatomical Collection Method Collection Time Receive d Time (Source) Location / / Volume Laterality Blood specimen 07/15/2016 2:10 PM 017 2:22 (specimen) EST PM EST Resulting Agency Comment Spec In Lab Regina Hill MD HEMATOLOGY ORDERABLES Performing Organization Address City/State/[place] [address] Potassium (07/15/2016 1:10 PM EST) athologist Signature Potassium 4.0 3.5 - 5.0 [facility] mmol/L [facility] LABORATORY Comment: Serum specimen Please note: ??Patients with WBC >100,00 0 may have falsely elevated Potassium levels. ??For accurate Potassium quantif ication in these patients send serum separator tube (gold top) for subsequent determinations. ??Contact the Clinical Chemistry Laboratory if there are any qu estions. Specimen Anatomical Collection Method Collection Time Receive d Time (Source) Location / / Volume Laterality Blood specimen 07/15/2016 1:10 PM 017 1:23 (specimen) EST PM EST Resulting Agency Comment Spec In Lab Regina Hill MD CHEMISTRY ORDERABLES Performing Organization Address [facility]/ZIP [facility] Phon e Number [address] Viscosity (07/15/2016 1:10 PM EST) athologist Signature Viscosity 1.1 1.0 - 1.7 [facility] LABORATORY Specimen Anatomical Collection Method Collection Time Receive d Time (Source) Location / / Volume Laterality Blood specimen 07/15/2016 1:10 PM 017 1:23 (specimen) EST PM EST Resulting Agency Comment Spec In Lab Regina Hill MD HEMATOLOGY ORDERABLES Performing Organization Address [facility] [place] [address] (ABNORMAL) APTT (07/15/2016 9:20 AM EST) athologist [facility] PTT 122 (H) 25 - 35 sec [facility] LABORATORY Comment: The recommended therapeutic range for fu ll dose, unfractionated heparin at [facility] is 80 ? 114 seconds. The use of the anti-Xa (heparin) level rather than the PTT is recommended for monitoring anticoagul ation intensity in critically ill patients receiving unfractionated hepari n by continuous IV infusion. Specimen Anatomical Collection Method Collection Time Receive d Time (Source) Location / / Volume Laterality Blood specimen 07/15/2016 9:20 AM 017 9:28 (specimen) EST AM EST Resulting Agency Comment Spec In Lab Lizeth Campbell MD HEMATOLOGY ORDERABLES Performing Organization Address City/[facility]/[place] [address] Potassium (07/15/2016 9:20 AM EST) P athologist Signature Potassium 4.1 3.5 - 5.0 [facility] mmol/L [facility] LABORATORY Comment: tested on serum from gold top. mkf Please note: ??Patients with WBC >100,00 0 may have falsely elevated Potassium levels. ??For accurate Potassium quantif ication in these patients send serum separator tube (gold top) for subsequent determinations. ??Contact the Clinical Chemistry Laboratory if there are any qu estions. Specimen Anatomical Collection Method Collection Time Receive d Time (Source) Location / / Volume Laterality Blood specimen 07/15/2016 9:20 AM 017 9:28 (specimen) EST AM EST Resulting Agency Comment Spec In Lab Regina Hill MD CHEMISTRY ORDERABLES Performing Organization Address City/[facility]/ZIP Code Phon e Number [address] Scan, Peripheral Blood (07/15/2016 2:10 AM EST) Analysis Performed At Patho logist Time Signature Plat Estimate Normal [facility] LABORATORY RBC Morphology Normal [facility] LABORATORY Smudge Cells Present [facility] LABORATORY Specimen Anatomical Collection Method Collection Time Receive d Time (Source) Location / / Volume Laterality Blood specimen 07/15/2016 2:10 AM 017 2:29 (specimen) EST AM EST Resulting Agency Comment Spec In Lab Regina Hill MD HEMATOLOGY ORDERABLES Performing Organization Address City/[facility]/[place] [address] (ABNORMAL) APTT (07/15/2016 2:10 AM EST) P athologist Signature PTT 68 (H) 25 - 35 sec [facility] LABORATORY Comment: The recommended therapeutic range for fu ll dose, unfractionated heparin at [facility] is 80 ? 114 seconds. The use of the anti-Xa (heparin) level rather than the PTT is recommended for monitoring anticoagul ation intensity in critically ill patients receiving unfractionated hepari n by continuous IV infusion. Specimen Anatomical Collection Method Collection Time Receive d Time (Source) Location / / Volume Laterality Blood specimen Venous Draw / 07/15/2016 2:10 AM 2016 2:29 (specimen) Unknown EST AM EST Resulting Agency Comment Spec In Lab Regina Hill MD HEMATOLOGY ORDERABLES Performing Organization Address City/State/[place] [address] (ABNORMAL) Basic Metabolic Panel (non-fasting) (07/15/2016 2:10 AM EST) athologist Signature Glucose Lvl 127 65 - 199 [facility] mg/dL [facility] LABORATORY Comment: Diabetes: >=200 mg/dL plus symp toms BUN 16 8 - 18 mg/dL [facility] LABORATORY Creatinine 0.87 0.70 - 1.20 mg/dL [facility] LABORATORY Comment: Please note that the pediatric reference intervals supplied above were not validated at [facility]. Results from pediatri c patients should be interpreted in conjunction to the patient's age, height and muscle mass. Sodium 142 135 - 145 mmol/L [facility] LABORATORY Comment: result rechecked-bju Potassium 3.6 3.5 - 5.0 mmol/L [facility] LABORATORY Comment: Result rechecked. Please note: ??Patients with WBC >100,00 0 may have falsely elevated Potassium levels. ??For accurate Potassium quantif ication in these patients send serum separator tube (gold top) for subsequent determinations. ??Contact the Clinical Chemistry Laboratory if there are any qu estions. Chloride 109 (H) 98 - 107 mmol/L [facility] LABORATORY Comment: result rechecked-bju CO2 20 (L) 22 - 31 mmol/L [facility] LABORATORY Anion Gap 13 5 - 15 mmol/L [facility] LABORATORY Calcium 7.7 (L) 8.5 - 10.5 mg/dL [facility] LABORATORY Comment: result rechecked-bju Estimated GFR >60 >=60 [facility] LABORATORY Comment: This estimated GFR (eGFR) [...] the following links into your internet browser. [email or web address] [email or web address] Specimen Anatomical Collection Method Collection Time Receive d Time (Source) Location / / Volume Laterality Blood specimen Venous Draw / 07/15/2016 2:10 AM 2016 2:29 (specimen) Unknown EST AM EST Resulting Agency Comment Spec In Lab Regina Hill MD CHEMISTRY ORDERABLES Performing Organization Address City/State/ZIP Code Phon e Number [place] [phone] HOSPITAL LAB[address]ATORY Drive (ABNORMAL) Differential, Automated (07/15/2016 2:10 AM EST) [facility] Method Time Signature Neutrophils % 5.8 % [facility] LABORATORY Neutr Abs (ANC) 9.36 (H) 1.70 - [facility] 6.10 [facility] x10(3)/[facility] LABORATORY Lymphocytes % 93.1 % [facility] LABORATORY Lymphocytes Abs 151.8 (H) 0.9 - 3.2 [facility] x10(3)/[facility] LABORATORY Monocytes % 0.7 % [facility] LABORATORY Monocyte Abs 1.2 (H) 0.3 - 0.9 [facility] x10(3)/[facility] LABORATORY Eosinophils % 0.1 % [facility] LABORATORY Eosinophils Abs 0.1 0.0 - 0.4 [facility] x10(3)/[facility] LABORATORY Basophils % 0.0 % [facility] LABORATORY Basophils Abs 0.1 0.0 - 0.1 [facility] x10(3)/[facility] LABORATORY Immature Gran % 0.30 % [facility] LABORATORY Comment: Immature granulocytes(IG's)percentage an d absolute count will include metamyelocytes, myelocytes, and promyelo cytes. Blood smears from CBCs yielding IG's will be scanned manually for anabel rand. If this scan disagrees with the automated IG or if promyelocytes are not ed, a manual differential will be performed. Claudia Gran Abs 0.57 (H) 0.00 - 0.04 x10(3)/[facility] LABORATORY Specimen Anatomical Collection Method Collection Time Receive d Time (Source) Location / / Volume Laterality Blood specimen 07/15/2016 2:10 AM 017 2:29 (specimen) EST AM EST Resulting Agency Comment Spec In Lab Regina Hill MD HEMATOLOGY ORDERABLES Performing Organization Address City/State/[place] [address] (ABNORMAL) Hemogram (07/15/2016 2:10 AM EST) athologist Signature WBC 163.2 4.0 - 9.5 [facility] (Critical) x10(3)/[facility] LABORATORY Comment: Please note: Patients with WBC greater t jaeger 100,000 may have falsely elevated potassium levels. Contact the Clinical C hemistry Laboratory if there are any questions.. This result has been called to NOT CALLED by Ben Davison on 07 15 2016 at 0254, and has not been read back . Matches Previous RBC 3.54 (L) 4.00 - 5.21 x10(6)/[facility] LABORATORY Hemoglobin 10.1 (L) 11.7 - 15.5 gm/dL [facility] LABORATORY Hematocrit 33.3 (L) 35.7 - 45.8 % [facility] LABORATORY MCV 94.1 82.6 - 94.4 fL [facility] LABORATORY MCH 28.5 27.1 - 32.0 pg [facility] LABORATORY MCHC 30.3 (L) 31.7 - 35.0 gm/dL [facility] LABORATORY Platelets 134 (L) 145 - 357 x10(3)/[facility] LABORATORY RDWSD 47.8 (H) 37.0 - 46.0 fL [facility] LABORATORY RDWCV 14.4 (H) 11.5 - 14.1 % [facility] LABORATORY MPV 10.9 7.6 - 12.9 [facility] LABORATORY nRBC % Auto 0.0 % [facility] LABORATORY nRBC Abs Auto 0.000 0.000 - 0.000 x10(3)/[facility] LABORATORY Specimen Anatomical Collection Method Collection Time Receive d Time (Source) Location / / Volume Laterality Blood specimen 07/15/2016 2:10 AM 017 2:29 (specimen) EST AM EST Resulting Agency Comment Spec In Lab Regina Hill MD HEMATOLOGY ORDERABLES Performing Organization Address City/[facility] Code Phon e Number [address] (ABNORMAL) Prothrombin Time (07/15/2016 2:10 AM EST) P athologist Signature PT 17.3 (H) 12.0 - 15.0 [facility] LABORATORY Comment: An INR <2.0 indicates adequate procoagul ant activity for hemostasis in most patients without underlying bleeding dis orders, though the INR may not adequately reflect hemostatic capacity i n patients with liver disease and synthetic impairment. The recommended ta rget INR range for therapeutic anticoagulation is 2.0 ? 3.0 for most applications, though lower and higher ranges may be appropriate depending on c linical circumstances. INR 1.4 (H) 0.9 - 1.1 [facility] LABORATORY Specimen Anatomical Collection Method Collection Time Receive d Time (Source) Location / / Volume Laterality Blood specimen 07/15/2016 2:10 AM 017 2:29 (specimen) EST AM EST Resulting Agency Comment Spec In Lab Regina Hill MD HEMATOLOGY ORDERABLES Performing Organization Address City/[facility]/ZIP Code Phon e Number [address] Phosphorus (07/15/2016 2:10 AM EST) P athologist Signature Phosphorus 3.9 2.5 - 4.5 [facility] mg/dL [facility] LABORATORY Specimen Anatomical Collection Method Collection Time Receive d Time (Source) Location / / Volume Laterality Blood specimen 07/15/2016 2:10 AM 017 2:29 (specimen) EST AM EST Resulting Agency Comment Spec In Lab Regina Hill MD CHEMISTRY ORDERABLES Performing Organization Address City/[facility]/ZIP Code Phon e Number [address] Magnesium (07/15/2016 2:10 AM EST) P athologist Signature Magnesium 0.80 0.69 - 1.07 [facility]/L [facility] LABORATORY Specimen Anatomical Collection Method Collection Time Receive d Time (Source) Location / / Volume Laterality Blood specimen 07/15/2016 2:10 AM 017 2:29 (specimen) EST AM EST Resulting Agency Comment Spec In Lab Regina Hill MD CHEMISTRY ORDERABLES Performing Organization Address City/[facility]/ZIP Code Phon e Number [address] APTT (07/14/2016 6:20 PM EST) athologist Signature PTT 34 25 - 35 sec [facility] LABORATORY Comment: The recommended therapeutic range for fu ll dose, unfractionated heparin at [facility] is 80 ? 114 seconds. The use of the anti-Xa (heparin) level rather than the PTT is recommended for monitoring anticoagul ation intensity in critically ill patients receiving unfractionated hepari n by continuous IV infusion. Specimen Anatomical Collection Method Collection Time Receive d Time (Source) Location / / Volume Laterality Blood specimen 07/14/2016 6:20 PM 017 6:30 (specimen) EST PM EST Resulting Agency Comment Spec In Lab Regina Hill MD HEMATOLOGY ORDERABLES Performing Organization Address City/[facility]/ZIP Code Phon e Number [address] POCT Glucose (07/14/2016 3:19 PM EST) athologist Signature POC Glucose 102 65 - 199 [facility] mg/dL [facility] LABORATORY Comment: Supplemental ranges: <140 mg/dL before meals <180 mg/dL all other times of the day Specimen Anatomical Collection Method Collection Time Receive d Time (Source) Location / / Volume Laterality Blood specimen 07/14/2016 3:19 PM 017 3:19 (specimen) EST PM EST Regina Hill MD POINT OF CARE TEST ORDERABLE S Performing Organization Address City/State/[place] [address] MRI Brain wo Contrast (07/14/2016 1:14 PM EST) Anatomical Region Laterality Modality Head Magnetic Resonance Specimen (Source) Anatomical Location Collection Method / Collectio n Time Received Time / Laterality Volume Impressions 07/14/2016 2:10 PM EST 1. ??Punctate focus of probable diffusion restriction within the posterior right frontal lobe may represent a small focus of acute ischemia. 2. ??High signal within the cortex of th e right posterior cerebrum without corresponding low signal on the ADC map. This does not reflect acute ischemia and is likely artifactual. However, with out the benefit of additional MRI sequences, an alternative underlying pro cess such as seizure edema cannot be entirely excluded. Discussed with Dr. Granados by Dr. Meghan German in person at ??07/14/2016 1:55 PM I have personally reviewed the image(s) and the residents interpretation and agree with the findings, Jonna German at 07/14/2016 2:10 PM Narrative 07/14/2016 2:10 PM EST EXAMINATION: MRI BRAIN WO CONTRAST CLINICAL HISTORY: question stroke-DWI sc an only now. need results quickly for lytics decision. TECHNIQUE: MRI of the brain with diffusi on weighted images only. COMPARISON: CT head dated 07/14/2016. FINDINGS: Small focus of increased signal within t he right anterior parietal lobe on the DWI images with corresponding decreased signal on ADC map may represent a small infarction. ??Diffuse increased DWI sign al in a gyriform pattern within the right posterior cerebrum without corresponding loss of signal on ADC map likely represents artifact. ?? Procedure Note Jonna German MD - 07/14/2016Form atting of this note might be different from the original. EXAMINATION: MRI BRAIN WO CONTRAST CLINICAL HISTORY: question stroke-DWI sc an only now. need results quickly for lytics decision. TECHNIQUE: MRI of the brain with diffusi on weighted images only. COMPARISON: CT head dated 07/14/2016. FINDINGS: Small focus of increased signal within t he right anterior parietal lobe on the DWI images with corresponding decreased signal on ADC map may represent a small infarction. Diffuse increased DWI signal in a gyriform pattern within the right posterior cerebrum without corresponding loss of signal on ADC map likely represents artifact. IMPRESSION 1. Punctate focus of probable diffusion restriction within the posterior right frontal lobe may represent a small focus of acute ischemia. 2. High signal within the cortex of the right posterior cerebrum without corresponding low signal on the ADC map. This does not reflect acute ischemia and is likely artifactual. However, with out the benefit of additional MRI sequences, an alternative underlying pro cess such as seizure edema cannot be entirely excluded. Discussed with Dr. Granados by Dr. Meghan German in person at 07/14/2016 1:55 PM I have personally reviewed the image(s) and the residents interpretation and agree with the findings, Jonna German at 07/14/2016 2:10 PM Cody Candelario MD IMG MRI ORDERABLES ECHOCARDIOGRAM COMPLETE (07/14/2016 11:02 AM EST) P athologist Signature EF 58 [facility] Anatomical Region Laterality Modality Other Specimen (Source) Anatomical Location Collection Method / Collectio n Time Received Time / Laterality Volume 07/14/2016 Narrative 07/14/2016 11:23 AM EST Procedure: ?Transthoracic Echocardiogram Patient: ?ARIANNA Wu ?? (Age): 1950(66y) Med Rec#: ? [id number] ?Sex: ?F ? Site Loc: ? [facility] ?Ht / Wt: ??163.8(cm)/77(kg Pt. Loc: ?ED ?BSA: ?1.83 Study Date: ?? 07/14/2016 ?Pt. Type: Inpatient Tape: ? 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 Tachycardia BP: ? 133/65 SUMMARY: 1. Basal septal hypertrophy is observed. There is normal global left ventricular systolic function. The quant itative left ventricular ejection fraction by biplane Schwartz's m ethod is 58%. ??There are no left ventricular segmental wall motion abnorm alities. ??There is septal flattening present consistent with right ventricular pressure overload. 2. The right ventricle is moderately dil ated. ??Right ventricular global systolic function is probably normal. 3. The estimated pulmonary artery systol ic pressure is 41 mmHg. 4. There is moderate (2+/4+) tricuspid r egurgitation present. 5. See remainder of report for additiona l findings. Findings ? : Left Ventricle: ? The left ventricul ar chamber size is normal. ?Mild concentric left ventricular h ypertrophy is observed. ?Basal septal hypertrophy is observ ed. ?There is no evidence of LVOT obstr uction. ?There is normal global left ventri cular systolic function. ?The quantitative left ventricular ejection fraction by biplane Schwartz's method is 58%. ?There are no left ventricular segm ental wall motion abnormalities. ?There is septal flattening present consistent with right ventricular pressure overload. Left Atrium: ? The left atrium is no rmal in size. ?No atrial septal defect is visuali zed. ?The inter-atrial septum appears no rmal. Right Ventricle: ? The right ventric le is moderately dilated. ?Right ventricular global systolic function is probably normal. ?The estimated pulmonary artery sys tolic pressure is 41 mmHg. ?The estimated right atrial pressur e is 8 mmHg. Right Atrium: ? The right atrium is mildly dilated. Aortic Valve: ? The aortic valve is tricuspid. ?The aortic valve leaflets are mild ly thickened. ?Systolic excursion of the aortic v alve is normal. ?There is no evidence of aortic fatemeh ve stenosis. ?There is no evidence of aortic reg urgitation. Mitral Valve: ? The mitral valve meghan flets are mildly thickened. ?There is posterior mitral annular calcification. ?There is no evidence of mitral krystle nosis. ?There is trace mitral regurgitatio n present. Tricuspid Valve: ? The tricuspid fatemeh ve leaflets are not thickened. ?The tricuspid valve annulus is dil ated. ?There is moderate (2+/4+) tricuspi d regurgitation present. Pulmonic Valve: ? The pulmonic valve appears normal in structure and function. Pericardium: ? The pericardium appea rs normal and there is no evidence of a pericardial effusion. Aorta: ? The aortic root is normal i n size. ?The ascending aorta is normal in s ize. Pulmonary Artery: ? The main pulmona ry artery appears normal. Venous: ? The inferior vena cava raheel ears normal in size. ?There is less than 50% respiratory change in the inferior vena cava dimension consistent with elevated right atrial pressure. Misc: ? See remainder of report for additional findings. ?Two-dimensional echo, spectral Dop pler and color Doppler performed. ?Myocardial Strain Imaging Chambers 2D ?Value ?Units (Range) ? IVSd (2D) ? 1.2 ?cm ? LVPWd (2D) ?0.9 ?cm ? IVS:LVPW ratio (2D) 1.3 ?ratio ? LVIDd (2D) ?3.7 ?cm ? LVIDs (2D) ?2.8 ?cm ? LVIDd (2D) index ?2 ?cm/m2 ? LVIDs (2D) index ?1.5 ?cm/m2 ? LV FS (2D) ?24.9 ? % ? EF Teichholz (2D) ?? 50.1 ? % ? Ao root diameter (2D3.1 ?cm (2.1 - 3.6) ? Ascending Ao ?3.2 ?cm (2 - 3.5) ? Volumes/Mass ?Value ?Units (Range) ? LA Area 4 CH ?13 ? cm2 (<21) ? LA ESV BP (A/L) inde19.4 ? ml/m2 ? RA AREA 4CH ? 18 ? cm2 ? LA ESV SP 4CH (MOD) 26.5 ? ml ? LA ESV SP 2CH (MOD) 37.5 ? ml ? LV ESV SP 4CH (MOD) 13.3 ? ml ? LV ESV SP 2CH (MOD) 13 ? ml ? LV EDV BP ? 31.6 ? ml ? LV ESV BP ? 13.2 ? ml ? BP EF (MOD) ? 58.1 ? % ? Global Longiitudinal-15.4 ? % (-30 - -10) ? LV mass (2D) ?123.7 ?g ? LV mass (2D) index ??67.6 ? g/m2 ? Diastolic/Systolic Function ?Value ?Units (Range) ? MV E-wave Vmax ?1.2 ?m/sec ? LV septal e' Vmax ?? 0.1 ?m/sec ? LV lateral e' Vmax ??0.1 ?m/sec ? LV average e' Vmax ??0.1 ?m/sec ? LV E:e' septal ratio19.7 ? ratio ? LV E:e' lateral rati19.7 ? ratio ? LV average E:e' rati19.7 ? ratio ? Mitral Valve ?Value ?Units (Range) ? MV Vmax ? 1.3 ?m/sec ? MV VTI ?16.7 ? cm ? MV peak gradient ?6.5 ?mmHg ? MV mean gradient ?3 ?mmHg ? Tricuspid Valve ?Value ?Units (Range) ? TR Vmax ? 2.4 ?m/sec ? TR peak gradient ?23 ? mmHg ? RAP ? 8 ?mmHg ? RVSP ?41 ? mmHg ? Measurement Trending Name ? 07/14/2016 ? LV EDV BP ?3 1.57 LVIDd (2D) ? 3. 69 LV ESV BP ?1 3.23 LVIDs (2D) ? 2. 77 This report has been electronically sign ed by: _ Yoim Tillman M.D. ? 07/14/2016 11:23:35 Images reviewed and interpretation verif ied [facility] Cardiac Ultrasound Laboratory Procedure Note Yomi Tillman MD - 07/14/2016Format ting of this note might be different from the original. Procedure: Transthoracic Echocardiogram Patient: ARIANNA Wu DOB(Age): 1 (66y) Med Rec#: [id number] Sex: F Site Loc: [facility] [place] Ht / Wt: 163.8(cm)/77(kg Pt. Loc: ED BSA: 1.83 Study Date: 07/14/2016 Pt. 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 Basal septal hypertrophy is observed. There is normal global left ventricular systolic function. The quant itative left ventricular ejection fraction by biplane Schwartz's m ethod is 58%. There are no left ventricular segmental wall motion abnorm alities. There is septal flattening present consistent with right ventricular pressure overload. 2. The right ventricle is moderately dil ated. Right ventricular global systolic function is probably normal. 3. The estimated pulmonary artery systol ic pressure is 41 mmHg. 4. There is moderate (2+/4+) tricuspid r egurgitation present. 5. See remainder of report for additiona l findings. Findings : Left Ventricle: The left ventricular dariel mber size is normal. Mild concentric left ventricular hypert rophy is observed. Basal septal hypertrophy is observed. There is no evidence of LVOT obstructio n. There is normal global left ventricular systolic function. The quantitative left ventricular eject ion fraction by biplane Schwartz's method is 58%. There are no left ventricular segmental wall motion abnormalities. There is septal flattening present cons istent with right ventricular pressure overload. Left Atrium: The left atrium is normal i n size. No atrial septal defect is visualized. The inter-atrial septum appears normal. Right Ventricle: The right ventricle is moderately dilated. Right ventricular global systolic funct ion is probably normal. The estimated pulmonary artery systolic pressure is 41 mmHg. The estimated right atrial pressure is 8 mmHg. Right Atrium: The right atrium is mildly dilated. Aortic Valve: The aortic valve is tricus pid. The aortic valve leaflets are mildly th ickened. Systolic excursion of the aortic valve is normal. There is no evidence of aortic valve st enosis. There is no evidence of aortic regurgit ation. Mitral Valve: The mitral valve leaflets are mildly thickened. There is posterior mitral annular calci fication. There is no evidence of mitral stenosis . There is trace mitral regurgitation pre sent. Tricuspid Valve: The tricuspid valve meghan flets are not thickened. The tricuspid valve annulus is dilated. There is moderate (2+/4+) tricuspid reg urgitation present. Pulmonic Valve: The pulmonic valve appea rs normal in structure and function. Pericardium: The pericardium appears nor mal and there is no evidence of a pericardial effusion. Aorta: The aortic root is normal in size . The ascending aorta is normal in size. Pulmonary Artery: The main pulmonary art baldo appears normal. Venous: The inferior vena cava appears n ormal in size. There is less than 50% respiratory clarke ge in the inferior vena cava dimension consistent with elevated right atrial pressure. Misc: See remainder of report for additi onal findings. Two-dimensional echo, spectral Doppler and color Doppler performed. Myocardial Strain Imaging Chambers 2D Value Units (Range) IVSd (2D) 1.2 cm LVPWd (2D) 0.9 cm IVS:LVPW ratio (2D) 1.3 ratio LVIDd (2D) 3.7 cm LVIDs (2D) 2.8 cm LVIDd (2D) index 2 cm/m2 LVIDs (2D) index 1.5 cm/m2 LV FS (2D) 24.9 % EF Teichholz (2D) 50.1 % Ao root diameter (2D3.1 cm (2.1 - 3.6) Ascending Ao 3.2 cm (2 - 3.5) Volumes/Mass Value Units (Range) LA Area 4 CH 13 cm2 (<21) LA ESV BP (A/L) inde19.4 ml/m2 RA AREA 4CH 18 cm2 LA ESV SP 4CH (MOD) 26.5 ml LA ESV SP 2CH (MOD) 37.5 ml LV ESV SP 4CH (MOD) 13.3 ml LV ESV SP 2CH (MOD) 13 ml LV EDV BP 31.6 ml LV ESV BP 13.2 ml BP EF (MOD) 58.1 % Global Longiitudinal-15.4 % (-30 - -10) LV mass (2D) 123.7 g LV mass (2D) index 67.6 g/m2 Diastolic/Systolic Function Value Units (Range) MV E-wave Vmax 1.2 m/sec LV septal e' Vmax 0.1 m/sec LV lateral e' Vmax 0.1 m/sec LV average e' Vmax 0.1 m/sec LV E:e' septal ratio19.7 ratio LV E:e' lateral rati19.7 ratio LV average E:e' rati19.7 ratio Mitral Valve Value Units (Range) MV Vmax 1.3 m/sec MV VTI 16.7 cm MV peak gradient 6.5 mmHg MV mean gradient 3 mmHg Tricuspid Valve Value Units (Range) TR Vmax 2.4 m/sec TR peak gradient 23 mmHg RAP 8 mmHg RVSP 41 mmHg Measurement Trending Name 07/14/2016 LV EDV BP 31.57 LVIDd (2D) 3.69 LV ESV BP 13.23 LVIDs (2D) 2.77 This report has been electronically sign ed by: _ Yomi Tillman M.D. 07/14/2016 11:23: 35 Images reviewed and interpretation verif ied [facility] Cardiac Ultrasound Laboratory Brittnee Granados MD ECHO ORDERABLES CT Chest Pulmonary Embolism w Contrast (07/14/2016 10:54 AM EST) Anatomical Region Laterality Modality Chest Computed Tomography Specimen (Source) Anatomical Location Collection Method / Collectio n Time Received Time / Laterality Volume Impressions 07/14/2016 11:19 AM EST Large saddle embolism with evidence of right heart strain, as above. Findings were called and communicated to Dr. Fink in the emergency department by Dr. Gutiérrez on 07/14/2016 at 10:59 AM. I have personally reviewed the image(s) and the residents interpretation and agree with the findings, Dennis camacho 07/14/2016 11:19 AM Narrative 07/14/2016 11:19 AM EST EXAMINATION: CT CHEST PULMONARY EMBOLISM W CONTRAST CLINICAL HISTORY: Shortness of breath, h ypoxia, recent surgery. ??Eval for PE. TECHNIQUE: Helical CT angiogram of the c hest was performed after intravenous contrast administration of 95cc of Omnip aque 350. ??Thin-section reconstructions as well as coronal and sagittal MIP refo rmatted images were generated to aid in evaluation. COMPARISON: Chest radiograph 07/14/2016. FINDINGS: Pulmonary arteries: Large filling defect extending along the bifurcation of the right and left main pulmonary arteries c onsistent with a saddle embolus. Filling defects are seen extending into almost a ll visualized pulmonary artery segments, but predominantly within the basilar seg ments. Other cardiovascular structures: There i s evidence of right heart strain based on the RIGHT-LEFT ventricular ratio whic h is >1 using the right ventricle which measures 3.9 cm to the left ventricle wh ich measures 3.2 cm. Lungs and airways:? No significant findi ngs. Pleura and pericardium: No significant f indings. Mediastinum and hilar structures: No lym phadenopathy. Limited views of the upper abdomen: No s ignificant findings. Skeletal structures: No aggressive lytic or sclerotic lesions. Procedure Note Dennis Holt MD - 07/14/2016Formatt ing of this note might be different from the original. EXAMINATION: CT CHEST PULMONARY EMBOLISM W CONTRAST CLINICAL HISTORY: Shortness of breath, h ypoxia, recent surgery. Eval for PE. TECHNIQUE: Helical CT angiogram of the c hest was performed after intravenous contrast administration of 95cc of Omnip aque 350. Thin-section reconstructions as well as coronal and sagittal MIP refo rmatted images were generated to aid in evaluation. COMPARISON: Chest radiograph 07/14/2016. FINDINGS: Pulmonary arteries: Large filling defect extending along the bifurcation of the right and left main pulmonary arteries c onsistent with a saddle embolus. Filling defects are seen extending into almost a ll visualized pulmonary artery segments, but predominantly within the basilar seg ments. Other cardiovascular structures: There i s evidence of right heart strain based on the RIGHT-LEFT ventricular ratio whic h is >1 using the right ventricle which measures 3.9 cm to the left ventricle wh ich measures 3.2 cm. Lungs and airways:? No significant findi ngs. Pleura and pericardium: No significant f indings. Mediastinum and hilar structures: No lym phadenopathy. Limited views of the upper abdomen: No s ignificant findings. Skeletal structures: No aggressive lytic or sclerotic lesions. IMPRESSION Large saddle embolism with evidence of r ight heart strain, as above. Findings were called and communicated to Dr. Fink in the emergency department by Dr. Gutiérrez on 07/14/2016 at 10:59 AM. I have personally reviewed the image(s) and the residents interpretation and agree with the findings, Dennis camacho 07/14/2016 11:19 AM Cody Candelario MD IMG CT ORDERABLES XR Chest PA & Lateral (Generic) (07/14/2016 9:28 AM EST) Anatomical Region Laterality Modality Chest N/A Digital Radiography Specimen (Source) Anatomical Location Collection Method / Collectio n Time Received Time / Laterality Volume Impressions 07/14/2016 9:43 AM EST No acute cardial pulmonary process. I have personally reviewed the image(s) and the residents interpretation and agree with the findings, Dennis camacho 07/14/2016 9:43 AM Narrative 07/14/2016 9:43 AM EST EXAMINATION: XR CHEST PA AND LATERAL (GENERIC) CLINICAL HISTORY: Shortness of breath TECHNIQUE: PA and lateral chest radiogra phs. COMPARISON: None. FINDINGS: The lungs are clear. No focal area of co nsolidation. No pneumothorax or pleural effusion. The cardiomediastinal silhouette, janet a nd pulmonary vasculature normal limits. No acute osseous abnormalities. Procedure Note Dennis Holt MD - 07/14/2016Formatt ing of this note might be different from the original. EXAMINATION: XR CHEST PA AND LATERAL (HCDC) CLINICAL HISTORY: Shortness of breath TECHNIQUE: PA and lateral chest radiogra phs. COMPARISON: None. FINDINGS: The lungs are clear. No focal area of co nsolidation. No pneumothorax or pleural effusion. The cardiomediastinal silhouette, janet a nd pulmonary vasculature normal limits. No acute osseous abnormalities. IMPRESSION No acute cardial pulmonary process. I have personally reviewed the image(s) and the residents interpretation and agree with the findings, Dennis Jonathon camacho 07/14/2016 9:43 AM Cody Candelario MD IMG DX ORDERABLES (ABNORMAL) BLOOD GAS 2 ARTERIAL (07/14/2016 9:08 AM EST) Analysis Performed At Patho logist Time Signature pH Art 7.40 7.35 - [facility] 7.45 [facility] pCO2 Art 34 (L) 35 - 45 [facility] mmHg [facility] pO2 Art 52 (L) 85 - 104 [facility] HCO3 Art 20.4 20.0 - [facility] 26.0 [facility] mmol/L [facility] BE Art -4.5 (L) -3.0 - 3.0 [facility] mmol/L [facility] Hgb Blood Gas 14.4 11.7 - [facility] 15.5 gm/dL [facility] O2HB Art 86.6 (L) 94.0 - [facility] 97.0 % [facility] COHB Art 0.2 % [facility] Comment: Nonsmokers: 0.5-1.5% COHB Smokers: Variable, but usually less than 10% Toxic: 20-30% COHB Lethal: Greater than 60% COHB METHB Art 0.3 <=1.5 % [facility] Na Whole Blood 141 135 - 145 mmol/L [facility] K Whole Blood 3.2 (L) 3.5 - 5.0 mmol/L [facility] Comment: Please note: Patients with WBC >100,000 may have falsely elevated Potassium levels. Contact the Clinical Chemistry L aboratory if there are any questions. ICa Whole Blood 1.20 1.15 - 1.33 mmol/L [facility] Comment: Note: ??Total bilirubin higher than 20 m g/dL may lead to falsely low ionized calcium. CL Whole Blood 107 98 - 107 mmol/L [facility] Gluc Whole Bld 163 65 - 199 mg/dL [facility] Comment: Diabetes: >=200 mg/dL plus symp toms. Lactate WB 1.5 0.5 - 2.2 mmol/L [facility] Specimen Anatomical Collection Method Collection Time Receive d Time (Source) Location / / Volume Laterality Blood specimen 07/14/2016 9:08 AM 017 9:08 (specimen) EST AM EST Cody Candelario MD CHEMISTRY ORDERABLES Performing Organization Address City/[facility]/[place] [address] EKG 12 Lead (07/14/2016 8:55 AM EST) Component Value Ref Range Test Analysis Performed Pathologis t Method Time At Signature Ventricular rate 108 BPM MUSE SYSTEM Atrial Rate 108 BPM MUSE SYSTEM P-R Interval 142 ms MUSE SYSTEM QRS Duration 102 ms MUSE SYSTEM Q-T Interval 326 ms MUSE SYSTEM QTC Calculated 436 ms MUSE SYSTEM (Bezet) Calculated P Harrell 89 degrees MUSE SYSTEM Calculated R Harrell -8 degrees MUSE SYSTEM Calculated T Harrell 70 degrees MUSE SYSTEM INTERPRETATION Sinus tachycardia MUSE SY STEM Possible Left atrial enlargement RSR' or QR pattern in V1 suggests right ventricular conducti on delay Abnormal ECG No previous ECGs available Confirmed by MD JADYN, JORDON ([id number]) on 07/14/2016 2:15:4 4 PM Specimen Anatomical Collection Method Collection Time Receive d Time (Source) Location / / Volume Laterality 07/14/2016 8:55 AM 7 2:15 EST PM EST Narrative This result has an attachment that is no t available. Cody Candelario MD ECG ORDERABLES Performing Organization Address City/[facility]/ZIP Code Phon e Number MUSE SYSTEM CT Head wo Contrast (Generic) (07/14/2016 8:54 AM EST) Anatomical Region Laterality Modality Head Computed Tomography Specimen (Source) Anatomical Location Collection Method / Collectio n Time Received Time / Laterality Volume Impressions 07/14/2016 9:09 AM EST No acute intracranial abnormality. Intraocular air and fluid on the right. Narrative 07/14/2016 9:09 AM EST EXAMINATION: CT HEAD WO CONTRAST (GENERIC) CLINICAL HISTORY: stroke alert TECHNIQUE: An unenhanced CT of the head was done. COMPARISON: None FINDINGS: Examination shows no sign of hemorrhage or obvious territorial infarction. Willingham-white differentiation is preserved. Some basal ganglia calcification are noted incidentally. Insular ribbons are well demonstrated. No evidence of dense cerebral vessel. Air and fluid are seen within the right globe, with slight medial contour alteration, needing corre lation with recent surgery expectations. Procedure Note Munir Hair MD - 07/14/2016Format ting of this note might be different from the original. EXAMINATION: CT HEAD WO CONTRAST (GENERI C) CLINICAL HISTORY: stroke alert TECHNIQUE: An unenhanced CT of the head was done. COMPARISON: None FINDINGS: Examination shows no sign of hemorrhage or obvious territorial infarction. Willingham-white differentiation is preserved. Some basal ganglia calcification are noted incidentally. Insular ribbons are well demonstrated. No evidence of dense cerebral vessel. Air and fluid are seen within the right globe, with slight medial contour alteration, needing corre lation with recent surgery expectations. IMPRESSION No acute intracranial abnormality. Intra ocular air and fluid on the right. Cody Candelario MD IMG CT ORDERABLES ABORH Recheck Status (07/14/2016 8:47 AM EST) [facility] Method Time Signature ABORH Recheck Order Placed [facility] LABORATORY ABORH Type Complete [facility] LABORATORY Specimen Anatomical Collection Method Collection Time Receive d Time (Source) Location / / Volume Laterality Blood specimen 07/14/2016 8:47 AM 017 8:58 (specimen) EST AM EST Resulting Agency Comment Spec In Lab Cody Candelario MD BLOOD BANK ORDERABLES Performing Organization Address City/State/[place] [address] Antibody screen (07/14/2016 8:47 AM EST) [facility] Method Time Signature Ab Screen Negative [facility] LABORATORY Expires at 07/17/2016 MADIAH BROUSSARD [id number] on: [facility] Specimen Anatomical Collection Method Collection Time Receive d Time (Source) Location / / Volume Laterality Blood specimen 07/14/2016 8:47 AM 017 8:58 (specimen) EST AM EST Resulting Agency Comment Spec In Lab Cody Candelario MD BLOOD BANK ORDERABLES Performing Organization Address City/State/[place] [address] ABO/Rh Typing (07/14/2016 8:47 AM EST) P athologist Signature ABORh Type A Neg [facility] Specimen Anatomical Collection Method Collection Time Receive d Time (Source) Location / / Volume Laterality Blood specimen 07/14/2016 8:47 AM 017 8:58 (specimen) EST AM EST Resulting Agency Comment Spec In Lab Cody Candelario MD BLOOD BANK ORDERABLES Performing Organization Address City/[facility]/[place] [address] (ABNORMAL) pro-Brain Natriuretic Peptide (07/14/2016 8:44 AM EST) P athologist Signature ProBNP 143 (H) <=125 pg/mL [facility] Specimen Anatomical Collection Method Collection Time Receive d Time (Source) Location / / Volume Laterality Blood specimen Venous Draw / 07/14/2016 8:44 AM 2016 8:59 (specimen) Unknown EST AM EST Resulting Agency Comment Spec In Lab Cody Candelario MD CHEMISTRY ORDERABLES Performing Organization Address City/[facility]/ZIP Code Phon e Number [address] Scan, Peripheral Blood (07/14/2016 8:44 AM EST) Analysis Performed At Patho logist Time Signature Plat Estimate Normal [facility] RBC Morphology Normal [facility] Smudge Cells Present [facility] Specimen Anatomical Collection Method Collection Time Receive d Time (Source) Location / / Volume Laterality Blood specimen 07/14/2016 8:44 AM 017 8:58 (specimen) EST AM EST Resulting Agency Comment Spec In Lab Cody Candelario MD HEMATOLOGY ORDERABLES Performing Organization Address City/[facility]/[place] [address] (ABNORMAL) D-Dimer, Quantitative (07/14/2016 8:44 AM EST) Patholo gist Method Time Signature D-Dimer, Quant >18268 0 - 500 [facility] BOBO (Critical) FEU ng/ml [facility] Comment: Called by: ANDREW, Read back by: Clayton sanchez, Date/Time:07/14/16 09:52. The D-Dimer assay is used to aid in the diagnosis of deep vein thrombosis and pulmonary embolism. A normal D-Dimer res ult (less than 500 FEU ng/ml) has a negative predictive value of approximate ly 95% for the exclusion of acute PE and DVT when there is low to moderate pr etest probability. Specimen Anatomical Collection Method Collection Time Receive d Time (Source) Location / / Volume Laterality Blood specimen Venous Draw / 07/14/2016 8:44 AM 2016 8:58 (specimen) Unknown EST AM EST Resulting Agency Comment Spec In Lab Cody Candelario MD HEMATOLOGY ORDERABLES Performing Organization Address City/State/[place] [address] (ABNORMAL) Troponin T (07/14/2016 8:44 AM EST) P athologist Signature Troponin-T 0.11 (H) <=0.03 [facility] Comment: Called by: TREASURE, Read back by: Fara borja, Date/Time:07/14/16 09:48. 0.03 ng/mL: Represents the 99th percenti le upper reference limit for normals. >0.03 ng/mL: Elevated cardiac troponin T level indicative of myocardial damage. Diagnosis of acute, evolving or recent M I requires a typical rise and gradual fall of cTnT with at least ONE of the fo llowing: a) Ischemic symptoms b) Development of pathologic Q waves on the ECG c) ECG changes indicative of eschemia (S -T segment elevation/depression) d) Coronary artery intervention Serial bloods should be obtained for cristian ting on admission, at 6 to 9 hrs and again at 12 to 24 hrs if earlier samples are negative and the clinical index of suspicion is high. Reference: [Myocardial infarction redefined? a consensus document of the Joint Society of Cardiology/[employer] Committee for the redefinition of myocardial infarction. ? ?Journal of the [place] [employer] 2000; 36: 959-969] Specimen Anatomical Collection Method Collection Time Receive d Time (Source) Location / / Volume Laterality Blood specimen Venous Draw / 07/14/2016 8:44 AM 2016 8:59 (specimen) Unknown EST AM EST Resulting Agency Comment Spec In Lab Cody Candelario MD CHEMISTRY ORDERABLES Performing Organization Address City/[facility]/ZIP Code Phon e Number [address] Gold Tube HOLD (07/14/2016 8:44 AM EST) P athologist Signature Gold Hold Sample in [facility] LABORATORY Specimen Anatomical Collection Method Collection Time Receive d Time (Source) Location / / Volume Laterality Blood specimen 07/14/2016 8:44 AM 017 8:58 (specimen) EST AM EST Cody Candelario MD CHEMISTRY ORDERABLES Performing Organization Address City/[facility]/ZIP Code Phon e Number [address] (ABNORMAL) Differential, Automated (07/14/2016 8:44 AM EST) [facility] Method Time Signature Neutrophils % 5.7 % [facility] LABORATORY Neutr Abs (ANC) 9.32 (H) 1.70 - [facility] 6.10 [facility]IAL x10(3)/ HOSPITAL L LABORATORY Lymphocytes % 93.1 % [facility] LABORATORY Comment: PROTEINAOUS MATERIAL FOUND AT F EATHERED EDGE OF SMEAR. Lymphocytes Abs 152.7 (H) 0.9 - 3.2 x10(3)/[facility] LABORATORY Monocytes % 0.6 % [facility] LABORATORY Monocyte Abs 1.0 (H) 0.3 - 0.9 x10(3)/[facility] LABORATORY Eosinophils % 0.1 % [facility] LABORATORY Eosinophils Abs 0.2 0.0 - 0.4 x10(3)/[facility] LABORATORY Basophils % 0.1 % [facility] LABORATORY Basophils Abs 0.1 0.0 - 0.1 x10(3)/[facility] LABORATORY Immature Gran % 0.40 % [facility] LABORATORY Comment: Immature granulocytes(IG's)percentage an d absolute count will include metamyelocytes, myelocytes, and promyelo cytes. Blood smears from CBCs yielding IG's will be scanned manually for concor dance. If this scan disagrees with the automated IG or if promyelocytes are not ed, a manual differential will be performed. Claudia Gran Abs 0.61 (H) 0.00 - 0.04 x10(3)/[facility] LABORATORY Specimen Anatomical Collection Method Collection Time Receive d Time (Source) Location / / Volume Laterality Blood specimen 07/14/2016 8:44 AM 017 8:58 (specimen) EST AM EST Resulting Agency Comment Spec In Lab Cody Candelario MD HEMATOLOGY ORDERABLES Performing Organization Address City/State/ZIP Code Phon e Number [place] [id number] (ABNORMAL) Hemogram (07/14/2016 8:44 AM EST) P athologist Signature WBC 163.9 4.0 - 9.5 [facility] (Critical) x10(3)/[facility] LABORATORY Comment: Please note: Patients with WBC greater t jaeger 100,000 may have falsely elevated potassium levels. Contact the Clinical C hemistry Laboratory if there are any questions.. This result has been called to MODESTO COOPER by SALEEM HENDERSON on 07 14 2016 at 0935, and has been read ba ck. RBC 4.80 4.00 - 5.21 x10(6)/[facility] LABORATORY Hemoglobin 14.1 11.7 - 15.5 gm/dL [facility] LABORATORY Hematocrit 45.2 35.7 - 45.8 % [facility] LABORATORY MCV 94.2 82.6 - 94.4 fL [facility] LABORATORY MCH 29.4 27.1 - 32.0 pg [facility] LABORATORY MCHC 31.2 (L) 31.7 - 35.0 gm/dL [facility] LABORATORY Platelets 165 145 - 357 x10(3)/[facility] LABORATORY RDWSD 48.8 (H) 37.0 - 46.0 fL [facility] LABORATORY RDWCV 14.4 (H) 11.5 - 14.1 % [facility] LABORATORY MPV 11.0 7.6 - 12.9 fL [facility] LABORATORY nRBC % Auto 0.0 % [facility] LABORATORY nRBC Abs Auto 0.000 0.000 - 0.000 x10(3)/[facility] LABORATORY Specimen Anatomical Collection Method Collection Time Receive d Time (Source) Location / / Volume Laterality Blood specimen 07/14/2016 8:44 AM 017 8:58 (specimen) EST AM EST Resulting Agency Comment Spec In Lab Cody Candelario MD HEMATOLOGY ORDERABLES Performing Organization Address City/State/[place] [address] (ABNORMAL) Basic Metabolic Panel (non-fasting) (07/14/2016 8:44 AM EST) athologist Signature Glucose Lvl 193 65 - 199 [facility] mg/dL [facility] Comment: Diabetes: >=200 mg/dL plus symp toms BUN 22 (H) 8 - 18 mg/dL [facility] LABORATORY Creatinine 0.99 0.70 - 1.20 mg/dL [facility] LABORATORY Comment: Please note that the pediatric reference intervals supplied above were not validated at [facility]. Results from pediatri c patients should be interpreted in conjunction to the patient's age, height and muscle mass. Sodium 140 135 - 145 mmol/L [facility] LABOR[facility] Potassium See Note 3.5 - 5.0 mmol/L [facility] LABORATORY Comment: Plasma Potassium result is 6.2 mmol/L, s uspect pseudohyperkalemia. ??Recheck Potassium result on serum sample. Called by: TREASURE, Read back by: Fara borja, Date/Time:07/14/16 09:48. Please note: ??Patients with WBC >100,00 0 may have falsely elevated Potassium levels. ??For accurate Potassium quantif ication in these patients send serum separator tube (gold top) for subsequent determinations. ??Contact the Clinical Chemistry Laboratory if there are any qu estions. Chloride 103 98 - 107 mmol/L [facility] LABORATORY CO2 21 (L) 22 - 31 mmol/L [facility] LABORATORY Anion Gap 16 (H) 5 - 15 mmol/L [facility] LABORATORY Calcium 8.9 8.5 - 10.5 mg/dL [facility] LABOR[facility]ORY Estimated GFR 56 (L) >=60 [facility] LABORATORY Comment: This estimated GFR (eGFR) [...] the following links into your internet browser. [email or web address] Specimen Anatomical Collection Method Collection Time Receive d Time (Source) Location / / Volume Laterality Blood specimen 07/14/2016 8:44 AM 017 8:58 (specimen) EST AM EST Resulting Agency Comment Spec In Lab Cody Candelario MD CHEMISTRY ORDERABLES Performing Organization Address City/State/[place] [address] APTT (07/14/2016 8:44 AM EST) P athologist Signature PTT 26 25 - 35 sec [facility] LABORATORY Comment: The recommended therapeutic range for fu ll dose, unfractionated heparin at [facility] is 80 ? 114 seconds. The use of the anti-Xa (heparin) level rather than the PTT is recommended for monitoring anticoagul ation intensity in critically ill patients receiving unfractionated hepari n by continuous IV infusion. Specimen Anatomical Collection Method Collection Time Receive d Time (Source) Location / / Volume Laterality Blood specimen 07/14/2016 8:44 AM 017 8:58 (specimen) EST AM EST Resulting Agency Comment Spec In Lab Cody Candelario MD HEMATOLOGY ORDERABLES Performing Organization Address City/State/[place] [address] Prothrombin Time (07/14/2016 8:44 AM EST) P athologist Signature PT 14.6 12.0 - 15.0 [facility] LABORATORY Comment: An INR <2.0 indicates adequate procoagul ant activity for hemostasis in most patients without underlying bleeding dis orders, though the INR may not adequately reflect hemostatic capacity i n patients with liver disease and synthetic impairment. The recommended ta rget INR range for therapeutic anticoagulation is 2.0 ? 3.0 for most applications, though lower and higher ranges may be appropriate depending on c linical circumstances. INR 1.1 0.9 - 1.1 [facility] LABORATORY Specimen Anatomical Collection Method Collection Time Receive d Time (Source) Location / / Volume Laterality Blood specimen 07/14/2016 8:44 AM 017 8:58 (specimen) EST AM EST Resulting Agency Comment Spec In Lab Cody Candelario MD HEMATOLOGY ORDERABLES Performing Organization Address City/State/[place] [address] POCT Glucose (07/14/2016 8:40 AM EST) P athologist Signature POC Glucose 165 65 - 199 [facility] mg/dL [facility] Comment: Supplemental ranges: <140 mg/dL before meals <180 mg/dL all other times of the day Specimen Anatomical Collection Method Collection Time Receive d Time (Source) Location / / Volume Laterality Blood specimen 07/14/2016 8:40 AM 017 8:40 (specimen) EST AM EST Emergency Dept POINT OF CARE TEST ORDERABLE S Performing Organization Address City/State/[place] [address] documented in this encounter Visit Diagnoses Diagnosis CLL (chronic lymphocytic leukemia) Chronic lymphoid leukemia, without menti on of having achieved remission 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 Occlusion and stenosis of unspecified pr ecerebral artery with cerebral infarction Other pulmonary embolism and infarction Hypoxemia Unspecified transient cerebral ischemia Pulmonary embolism Other pulmonary embolism and infarction documented in this encounter Admitting Diagnoses Diagnosis Pulmonary embolism Other pulmonary embolism and infarction documented in this encounter Administered Medications Inactive Administered Medications - up to 3 most recent administrations Medication Order MAR Action Action Date Dose Rate Site acetaminophen (TYLENOL) tablet Given 07/14/2016 4:07 PM EST 1,00 0 mg 1,000 mg 1,000 mg, Oral, ONCE, 1 dose, On Marilyn 07/14/16 at 1615, Maximum dose of acetaminophen is 4000 mg from all sources in 24 hours., STAT acetaminophen (TYLENOL) tablet 650 mg Given 07/22/2016 3:14 PM EST 650 mg 650 mg, Oral, EVERY 4 HOURS PRN, Starting on Mon07/15/16 at 0329, Until Mon07/22/16 at 1727, Pain, Maximum dose of acetaminophen is 4000 mg from all sources in 24 hours., Routine Given 07/22/2016 11:05 AM EST 650 mg Given 07/18/2016 2:02 PM EST 650 mg alteplase (ACTIVASE) 100mg injection Kit Given 07/14/2016 2:27 PM EST 100 mg 100 mg, Intravenous, ONCE, 1 dose, On Marilyn 07/14/16 at 1415, Administer 10mg bolus and then administer the remaining 90mg over the next 2 hours. -for questions please page #[phone], Routine aspirin EC tablet 325 mg Given 07/15/2016 9:03 AM EST 325 mg 325 mg, Oral, DAILY, First dose on Mon07/14/16 at 0903, Until Discontinued, Routine Given 07/14/2016 9:09 AM EST 325 mg bisacodyl (DULCOLAX) suppository 10 mg Given 07/21/2016 2:27 PM EST 10 mg 10 mg, Rectal, DAILY, First dose on Mon07/20/16 at 1015, Until Discontinued, Routine docusate sodium (COLACE) capsule 100 mg Given 07/22/2016 9:04 AM EST 100 mg 100 mg, Oral, 2 TIMES DAILY, First dose on Mon07/15/16 at 0915, Until Discontinued, Routine Given 07/21/2016 8:44 PM EST 100 mg Given 07/21/2016 10:28 AM EST 100 mg enoxaparin (LOVENOX) injection 80 mg Given 07/22/2016 9:05 AM EST 80 mg 80 mg, Subcutaneous, EVERY 12 HOURS, First dose (after last modification) on Mon07/15/16 at 1600, Until Discontinued, Dose rounded per P&T Policy, Routine Given 07/21/2016 8:46 PM EST 80 mg Given 07/21/2016 10:30 AM EST 80 mg gadobutrol (GADAVIST) 1 mMol/mL injectio n 8 mL Given 07/20/2016 8:55 PM EST 8 mLs 8 mL, Intravenous, ONCE PRN, 1 dose, Starting on Mon07/20/16 at 2111, Until Mon07/20/16 at 2055, Per Protocol, Routine heparin (porcine) injection 0-8,000 Given 07/15/2016 3:13 AM EST 2,650 Units Units 0-8,000 Units, Intravenous, BOLUS PER HEPARIN PROTOCOL, Starting on Mon07/14/16 at 1935, Until Mon07/15/16 at 1501, Per Protocol, START ADJUSTMENT SCHEDULE 6 HOURS AFTER STARTING INFUSION aPTT Between 60 - 79 seconds: Bolus 2,650 units aPTT Less than 60 seconds: Bolus 5,350 units Increase infusion and recheck aPTT in 6 hours. , Routine heparin (porcine) injection 5,300 Units Given 07/14/2016 11:44 AM EST 5,300 Units 5,300 Units (rounded from 5,320 Units = 70 Units/kg ? 76 kg), Intravenous, ONCE, 1 dose, On Mon07/14/16 at 1137, INITIAL LOADING DOSE Maximum loading dose 8,000 units, Routine heparin 25,000 units in New Bag 07/14/2016 11:52 AM 1,150 Units/hr 23 mL/hr dextrose 5% 500 mL infusion EST 0-5,000 Units/hr (0-100 mL/hr), Intravenous, CONTINUOUS, Starting on Marilyn 07/14/16 at 1137, Until Mon07/14/16 at 1529, Begin infusion at 1,150 units per hr (15 units/kg/hr). MAX INITIAL infusion rate is 1,750 units/hr Target aPTT = 80 - 114 seconds Start adjustment schedule 6 hours after starting infusion. If aPTT is: - Less than 60 seconds, administer PRN bolus and increase rate by 300 units per hr (4 units/kg/hr) - 60-79 seconds, administer PRN bolus AND increase rate by 150 units per hr (2 units/kg/hr) - 80-114 seconds, no change - 115-129 seconds, decrease rate by 100 units per hr (1 unit/kg/hr) - 130-145 seconds, stop infusion for 30 minutes then decrease rate by 150 units per hr (2 units/kg/hr) - Greater than 145 seconds, stop infusion for 60 minutes then decrease rate by 250 units per hour (3 units/kg/hr) Repeat aPTT 6 hours after initiating heparin. Then 6 hours after each dose adjustment. When 2 consecutive aPTT within target range of 80 - 114 seconds, change aPTT to once every 24 hours with A.M. labs while on heparin. RN to order required aPTT - Per Protocol, Routine heparin 25,000 units in Rate/Dose Change 07/15/2016 11:00 1,200 Uni ts/hr 24 mL/hr dextrose 5% 500 mL AM EST infusion 0-5,000 Units/hr (0-100 mL/hr), Intravenous, CONTINUOUS, Starting on Marilyn 07/14/16 at 2000, Until Mon07/15/16 at 1501, Begin infusion at 1,150 units per hr (15 units/kg/hr). MAX INITIAL infusion rate is 1,750 units/hr Target aPTT = 80 - 114 seconds Start adjustment schedule 6 hours after starting infusion. If aPTT is: - Less than 60 seconds, administer PRN bolus and increase rate by 300 units per hr (4 units/kg/hr) - 60-79 seconds, administer PRN bolus AND increase rate by 150 units per hr (2 units/kg/hr) - 80-114 seconds, no change - 115-129 seconds, decrease rate by 100 units per hr (1 unit/kg/hr) - 130-145 seconds, stop infusion for 30 minutes then decrease rate by 150 units per hr (2 units/kg/hr) - Greater than 145 seconds, stop infusion for 60 minutes then decrease rate by 250 units per hour (3 units/kg/hr) Repeat aPTT 6 hours after initiating heparin. Then 6 hours after each dose adjustment. When 2 consecutive aPTT within target range of 80 - 114 seconds, change aPTT to once every 24 hours with A.M. labs while on heparin. RN to order required aPTT - Per Protocol, Routine Rate/Dose Change 07/15/2016 3:17 AM EST 1,300 Units/hr 26 mL/hr New Bag 07/14/2016 8:03 PM EST 1,150 Units/hr 23 mL/hr iohexol (OMNIPAQUE) 350 mg/mL solution Given 07/14/2016 10:48 AM EST 33,250 mg 33,250 mg 33,250 mg (95 mL), Intravenous, ONCE PRN, 1 dose, Starting on Mon07/14/16 at 1048, Until Mon07/14/16 at 1048, Per Protocol, Warning Vesicant/Irritant Medication , Routine magnesium sulfate 2 g in sterile water 50 Given 07/15/2016 7 :21 AM EST 2 g 25 mL/hr mL 2 g, Intravenous, ONCE, 1 dose, On Mon07/15/16 at 0730, Administer over 120 Minutes melatonin tablet 3 mg Given 07/21/2016 8:45 PM EST 3 mg 3 mg, Oral, NIGHTLY, First dose on Mon07/14/16 at 2100, Until Discontinued, Routine Given 07/20/2016 9:47 PM EST 3 mg Given 07/19/2016 8:41 PM EST 3 mg morphine 4 mg/mL carpuject 6-10 mg Given 07/18/2016 9:13 AM EST 8 mg 6-10 mg, Intravenous, EVERY 1 HOUR PRN, Starting on Mon07/18/16 at 0841, Until Mon07/18/16 at 1451, Pain, Administer 6mg for pain scale 1-4, 8mg for pain scale 5-7, and 10mg for pain scale 8-10, Routine moxifloxacin (VIGAMOX) 0.5 % ophthalmic Given 07/19/2016 8:41 PM EST 1 drop solution 1 drop 1 drop, Right Eye, 4 TIMES DAILY, First dose on Mon07/14/16 at 1700, Until Discontinued, Routine Given 07/19/2016 6:15 PM EST 1 drop Given 07/19/2016 1:09 PM EST 1 drop wutheayp-vmysivbnu-ddrtidoglhieg (DEXACINE) Given 07/19/2016 8:42 PM EST 1 Tube 3.5 mg/g-10,000 unit/g-0.1 % ophthalmic ointment 1 Tube 1 Tube, Right Eye, NIGHTLY, First dose on Mon07/14/16 at 2100, Until Discontinued, Routine Given 07/18/2016 9:55 PM EST 1 Tube Given 07/17/2016 8:56 PM EST 1 Tube kahinxap-uwpcoctbu-xukszixejmogl (DEXACINE) Given 07/22/2016 9:06 AM EST 1 Tube 3.5 mg/g-10,000 unit/g-0.1 % ophthalmic ointment 1 Tube 1 Tube, Right Eye, 2 TIMES DAILY, First dose (after last modification) on Mon07/20/16 at 2100, Until Discontinued, Routine Given 07/21/2016 8:52 PM EST 1 Tube Given 07/21/2016 10:36 AM EST 1 Tube ondansetron (ZOFRAN) injection 4 mg Given 07/18/2016 6:50 AM EST 4 mg 4 mg, Intravenous, EVERY 8 HOURS PRN, Starting on 07/17/16 at 2232, Until Mon07/18/16 at 1056, Nausea ondansetron (ZOFRAN) injection 4 mg Given 07/19/2016 9:24 AM EST 4 mg 4 mg, Intravenous, EVERY 8 HOURS PRN, Starting on Mon07/18/16 at 1114, Until Mon07/22/16 at 1727, Nausea Given 07/18/2016 5:01 PM EST 4 mg ondansetron (ZOFRAN) tablet 4 mg Given 07/17/2016 9:27 PM EST 4 mg 4 mg, Oral, EVERY 8 HOURS PRN, Starting on Mon07/15/16 at 1533, Until Mon07/17/16 at 2233, Nausea, Routine Given 07/17/2016 12:04 PM EST 4 mg Given 07/16/2016 12:54 AM EST 4 mg ondansetron (ZOFRAN) tablet 4 mg Given 07/17/2016 3:30 PM EST 4 mg 4 mg, Oral, ONCE, 1 dose, On Mon07/17/16 at 1545, STAT oxyCODONE (ROXICODONE) 5 mg/5 mL solution 5-15 Given 0 07/22/2016 3:14 PM EST 5 mg mg 5-15 mg, Oral, EVERY 4 HOURS PRN, Starting on Mon07/18/16 at 1450, Until Mon07/22/16 at 1727, Pain, Administer 5mg for pain scale 1-4, 10mg for pain 5-7, and 15 for pain 8-10, Routine Given 07/22/2016 11:05 AM EST 5 mg Given 07/22/2016 3:58 AM EST 10 mg oxyCODONE (ROXICODONE) immediate release tablet Given 07/18/2016 6:50 AM EST 5 mg 5 mg 5 mg, Oral, EVERY 4 HOURS PRN, Starting on Marilyn 07/14/16 at 1936, Until Mon07/18/16 at 0842, Pain, Routine Given 07/18/2016 2:30 AM EST 5 mg Given 07/17/2016 10:16 PM EST 5 mg oxyCODONE (ROXICODONE) immediate release Given 07/17/2016 12:04 PM EST 5 mg tablet 5 mg 5 mg, Oral, ONCE, 1 dose, On Mon07/17/16 at 1215, Routine oxyCODONE (ROXICODONE) immediate release tablet Given 07/17/2016 7:23 PM EST 5 mg 5 mg 5 mg, Oral, ONCE, 1 dose, On Mon07/17/16 at 1945, Routine pantoprazole (PROTONIX) tablet 20 mg Given 07/22/2016 9:04 AM EST 20 mg 20 mg, Oral, DAILY, First dose on Mon07/14/16 at 1730, Until Discontinued, DO NOT CRUSH OR OPEN, Routine Given 07/21/2016 10:27 AM EST 20 mg Given 07/20/2016 10:24 AM EST 20 mg polyethylene glycol (MIRALAX) packet 17 g Given 07/19/2016 9:13 AM EST 17 g 17 g, Oral, DAILY, First dose on Mon07/17/16 at 0900, Until Discontinued, Routine Given 07/18/2016 9:09 AM EST 17 g Given 07/17/2016 9:05 AM EST 17 g polyethylene glycol (MIRALAX) packet 17 g Given 07/22/2016 9:03 AM EST 17 g 17 g, Oral, 2 TIMES DAILY, First dose (after last modification) on Mon07/20/16 at 2100, Until Discontinued, Routine Given 07/21/2016 8:43 PM EST 17 g Given 07/21/2016 10:28 AM EST 17 g potassium chloride (K-DUR/KLOR-CON) extended Given 6:12 PM EST 40 mEq release tablet 40 mEq 40 mEq, Oral, ONCE, 1 dose, On Mon07/14/16 at 1815, Routine potassium chloride (K-DUR/KLOR-CON) extended Given 4:14 AM EST 40 mEq release tablet 40 mEq 40 mEq, Oral, EVERY 4 HOURS PRN, Starting on Mon07/15/16 at 0330, Until Mon07/15/16 at 1535, hypokalemia, Administer for serum potassium (mMol/L) of 3.6 - 3.8 See instructions for Potassium Protocol in [facility] online policies., Routine prednisoLONE acetate (PRED FORTE) 1 % Given 07/22/2016 9:[address] 1 drop ophthalmic suspension 1 drop 1 drop, Right Eye, 4 TIMES DAILY, First dose on Mon07/14/16 at 1700, Until Discontinued, Routine Given 07/21/2016 8:46 PM EST 1 drop Given 07/21/2016 10:29 AM EST 1 drop prochlorperazine (COMPAZINE) injection 1 0 mg Given 07/18/2016 10:02 PM EST 10 mg 10 mg, Intravenous, EVERY 6 HOURS PRN, Starting on Mon07/18/16 at 1114, Until Mon07/22/16 at 1727, Nausea, Routine senna (SENOKOT) tablet 8.6 mg Given 07/22/2016 9:04 AM EST 8.6 mg 8.6 mg, Oral, 2 TIMES DAILY, First dose on Mon07/15/16 at 0915, Until Discontinued, Routine Given 07/21/2016 8:44 PM EST 8.6 mg Given 07/21/2016 10:27 AM EST 8.6 mg senna-docusate (PERICOLACE) 8.6-50 mg per Given 07/15/2016 9 :03 AM EST 1 tablet tablet 1 tablet 1 tablet, Oral, 2 TIMES DAILY, First dose on Mon07/15/16 at 0900, Until Discontinued, Routine sodium chloride 0.9% 1,000 mL IV bolus Given 07/14/2016 9:54 AM EST 4000 mL/hr at 4,000 mL/hr, Intravenous, ONCE, 1 dose, On Mon07/14/16 at 0940 sodium chloride 0.9% 1,000 mL IV bolus Given 07/15/2016 10:58 AM EST 250 mL/hr at 250 mL/hr, Intravenous, ONCE, 1 dose, On Mon07/15/16 at 0930 sodium chloride 0.9% 500 mL IV bolus Given 07/14/2016 9:27 PM EST 125 mL/hr at 125 mL/hr, Intravenous, ONCE, 1 dose, On Marilyn 07/14/16 at 2145 sodium chloride 0.9% infusion New Bag 07/14/2016 9:11 AM EST 100 mL/hr 100 mL/hr 100 mL/hr, Intravenous, CONTINUOUS, Starting on Marilyn 07/14/16 at 0904, Until Marilyn 07/14/16 at 1413 sodium chloride 0.9% infusion New Bag 07/15/2016 5:18 PM EST 100 mL/hr 100 mL/hr 100 mL/hr, Intravenous, CONTINUOUS, Starting on Mon07/15/16 at 1700, Until 07/16/16 at 0259 sodium chloride 0.9% infusion New Bag 07/16/2016 10:48 AM EST 100 mL/hr 100 mL/hr 100 mL/hr, Intravenous, CONTINUOUS, Starting on 07/16/16 at 0445, Until 07/16/16 at 1444 Continued Bag 07/16/2016 4:45 AM EST 100 mL/hr 100 mL/hr traMADol (ULTRAM) tablet 25 mg Given 07/18/2016 2:00 AM EST 25 mg 25 mg, Oral, ONCE PRN, 1 dose, Starting on 07/17/16 at 2233, Until 07/18/16 at 0200, Pain, for pain not helped with oxycodone and acetaminophen, Routine traMADol (ULTRAM) tablet 25 mg Given 07/18/2016 5:33 AM EST 25 mg 25 mg, Oral, ONCE, 1 dose, On 07/18/16 at 0545, Routine white petrolatum ophthalmic ointment Given 07/21/2016 8:53 PM EST Both Eyes, 4 TIMES DAILY, First dose on Mon07/15/16 at 1700, Until Discontinued Given 07/21/2016 4:17 PM EST Given 07/21/2016 10:36 AM EST white petrolatum-mineral oil ophthalmic ointment Given 07/15/2016 11:00 AM EST Both Eyes, 2 TIMES DAILY, First dose on Mon07/15/16 at 0945, Until Discontinued documented in this encounter Active and Recently Administered Medications Times are shown in EST. Scheduled Medication Order 07/20/2016 07/21/2016 07/22/2016 bisacodyl (DULCOLAX) suppository 10 mg 1015 (Not Given - Provider: Carolyn Flannery RN - Reason: Patient/family refused) 1427 (Given - Provider: Saleem Pradhan, ALLIE) 0900 (Not Given - Provider: Pati Ontiveros RN - Reason: Patient/family refused) 10 mg, Rectal, DAILY, First dose on Mon07/20/16 at 1015, Until Discontinued, Routine docusate sodium (COLACE) capsule 100 mg 1020 (Given - Provider: Carolyn Flannery RN)214 (Given - Provider: Mary Donis RN) 1028 (Given - Provider: Saleem Pradhan RN)204 (Given - Provider: Hamida Roque RN) 0904 (Given - Provider: Pati Anderson RN) 100 mg, Oral, 2 TIMES DAILY, First dose on Mon07/15/16 at 0915, Until Discontinued, Routine enoxaparin (LOVENOX) injection 80 mg 1020 (Given - Pro vider: Carolyn Flannery RN)214 (Given - Provider: Mary Donis RN) 1030 (Given - Provider: Saleem Pradhan RN)204 (Given - Provider: Hamida Roque RN) 0905 (Given - Provider: Pati Anderson RN) 80 mg, Subcutaneous, EVERY 12 HOURS, Fir st dose on Mon07/15/16 at 1600, Until Discontinued, Dose rounded per P&T Policy, Routine melatonin tablet 3 mg 2146 (Given - Provider: Mary lopez RN) 2044 (Given - Provider: Hamida Roque RN) 3 mg, Oral, NIGHTLY, First dose on Mon at 2100, Until Discontinued, Routine rvivawxv-rpytmklir-cmdmtnhirifjc (DEXACI NE) 3.5 mg/g-10,000 unit/g-0.1 % ophthalmic ointment 1 Tube 2145 (Given - Provider: Mary Donis RN) 1036 (Given - Provider: Saleem Pradhan RN)205 (Given - Provider: Hamida Roque, ALLIE) 0906 (Given - Provider: Pati Anderson, ALLIE) 1 Tube, Right Eye, 2 TIMES DAILY, First dose on Mon07/20/16 at 2100, Until Discontinued, Routine pantoprazole (PROTONIX) tablet 20 mg 1024 (Given - Pro vider: Carolyn Flannery RN) 1027 (Given - Provider: Saleem Pradhan RN) 0904 (G iven - Provider: Pati Anderson, ALLIE) 20 mg, Oral, DAILY, First dose on Mon at 1730, Until Discontinued, DO NOT CRUSH OR OPEN, Routine polyethylene glycol (MIRALAX) packet 17 g 214 (Given - Provider: Mary Donis RN) 1028 (Given - Provider: Saleem martinez RN)2042 (Given - Provider: Hamida Roque RN) 0903 (Given - Provider: Pati Anderson, ALLIE) 17 g, Oral, 2 TIMES DAILY, First dose on Mon07/20/16 at 2100, Until Discontinued, Routine prednisoLONE acetate (PRED FORTE) 1 % ophthalmic suspe nsion 1 drop 1021 (Given - Provider: Carolyn Flannery, ALLIE)1544 (Not Given - Provider: Freeman May RN - Reason: Patient/family refused)1800 (Not Given - Provider: Noelle Jamison RN - Reason: See comment - Comment: per pt this was changed to BID per eye dr) 1029 (Given - Provider: Saleem Pradhan RN)1300 (Not Given - Provider: Noelle Jamison, ALLIE - Reason: Patient/family refused)1700 (Not Given - Provider: Noelle Jamison RN - Reason: See comment - Comment: pt states only gettin 0905 (Given - Provider: Pati Anderson, ALLIE)1300 (Not Given - Provider: Pati Anderson, ALILE - Reason: Patient/family refused - Comment: pt only doing twice a day) 1 drop, Right Eye, 4 TIMES DAILY, First dose on Mon07/14/16 at 1700, Until Discontinued, Routine 214 (Given - Provider: Mary Donis RN) g BID p er eye Dr yesterday)2045 (Given - Provider: Hamida Roque RN) senna (SENOKOT) tablet 8.6 mg 1022 (Given - Provider: Carolyn Flannery, ALLIE)214 (Given - Provider: Mary Donis RN) 1027 (Given - Provider: Saleem Pradhan RN)204 (Given - Provider: Hamida Roque RN) 0904 (Given - Provider: Pati Anderson, ALLIE) 8.6 mg, Oral, 2 TIMES DAILY, First dose on Mon07/15/16 at 0915, Until Discontinued, Routine white petrolatum ophthalmic ointment 1024 (Given - Pro vider: Carolyn Flannery, ALLIE)1545 (Given - Provider: Freeman May RN)2148 (Given - Provider: Mary Donis RN)2245 (Not Given - Provider: Mary Donis RN - Reason: See co mment - Comment: Previous admin given late.) 1036 (Given - Provider: Saleem Pradhan RN)1617 (Given - Provider: Noelle Jamison RN)2053 (Given - Provider: Hamida Roque RN)2200 (Not Given - Provider: Hamida Roque RN - Reason: Patient/family refused) 0900 (Not Given - Provider: Pati Ontiveros RN - Reason: Patient/family refused)1300 (Not Given - Provider: Pati Anderson RN - Reason: Patient/family refused) Both Eyes, 4 TIMES DAILY, First dose on Mon07/15/16 at 1700 PRN Medication Order 07/20/2016 07/21/2016 07/22/2016 acetaminophen (TYLENOL) tablet 650 mg 1105 (Given - Provider: Pati Anderson RN)1514 (Given - Provider: Pati Anderson, ALLIE) 650 mg, Oral, EVERY 4 HOURS PRN, Startin g Mon07/15/16 at 0329, Until Mon07/22/16 at 1727, Pain, Maximum dose of acetaminophen is 4000 mg from all sources in 24 hours., Routine gadobutrol (GADAVIST) 1 mMol/mL injection 8 mL (COMPLE NORA) 2054 (Given - Provider: Cody Taylor) 8 mL, Intravenous, ONCE PRN, 1 dose, Sta rting 07/20/16 at 2111, Until 07/20/16 at 2055, Per Protocol, Routine ondansetron (ZOFRAN) injection 4 mg 4 mg, Intravenous, EVERY 8 HOURS PRN, St arting 07/18/16 at 1114, Until Mon07/22/16 at 1727, Nausea oxyCODONE (ROXICODONE) 5 mg/5 mL solution 5-15 mg 0221 (Given - Provider: Mary Dnois RN)0629 (Given - Provider: Mary Donis RN)1540 (Given - Provider: Jovan Romero)2001 (Given - Provider: Mary Donis, ALLIE) 0023 (Given - Provider: Mary Donis RN)0444 (Given - Provider: Mary Donis RN)1219 (Given - Provider: Noelle Jamison, ALLIE)1622 (Given - Provider: Noelle Jamison, ALLIE)205 (Given - Provider: Hamida Roque, ALLIE) 0358 (Given - Provider: Hamida Roque RN)1105 (Given - Provider: Pait Anderson, ALLIE)1514 (Given - Provider: Pati Anderson, ALLIE) 5-15 mg, Oral, EVERY 4 HOURS PRN, Starti ng Mon 07/18/16 at 1450, Until Mon07/22/16 at 1727, Pain, Administer 5mg for pain scale 1-4, 10mg for pain 5-7, and 15 for pain 8-10, Routine prochlorperazine (COMPAZINE) injection 10 mg 10 mg, Intravenous, EVERY 6 HOURS PRN, S tarting 07/18/16 at 1114, Until Mon07/22/16 at 1727, Nausea, Routine documented in this encounter Care Teams Union Organiser Relationship Specialty Start Date End Date Berkley Madrigal MD PCP - General 04/13/10 02/15/18 KRYSTLE Bray [address] [place] [address] documented as of this encounter
--- OUTSIDE RECORDS SUMMARY | 2022-02-11 01:11 | XMS_ITS | Encounter Summary ---
:1950 Author Organization [facility] Address [facility] [place] [address] Care Team Providers Name Role Phone Berkley Madrigal MD Primary Care Provider Reason for Visit Reason Comments Blurred Vision Patient returns as scheduled for follow-up evaluation regarding retinal tear. CBC Fernanda Distorted Vision Encounter Details Date Type Department Care Team Description 02/18/2016 Office Visit Ophthalmology at [facility] Pavan Mancera Macular pucker, bilateral (P rimary Dx); [facility] MD Tori CLL (chronic lymphocytic leukemia); Drive [facility] [place]orseshoe retinal tear, righ t eye; [place] [address] [address] [address] Romeo wallace, right eye [phone] OPHTHALMOLOGY DE PT. [place], [place] [address] (Wo rk) Social History Tobacco [...] encounter Progress Notes Pavan Coffey MD - 02/18/2016 2:00 PM EDT Bilateral epiretinal membranes More recent symptomology left eye Still however, excellent visual acuity in each eye History of retinal tear right eye. Stable Importantly, combined clinical examination and imaging reveals no evidence of significant progression. No evidence of cystoid macular edema or hole Given the absence of any specific significant new structural changes. An excellent visual acuity, I recommended observation Return 4 months or immediately if worsening of vision in either eye. Patient will test each eye separately report promptly if there are any changes documented in this encounter Plan of Treatment Upcoming Encounters Date Type Specialty Care Team Description 02/11/2022 Scheduled View Only Hematology and Ángel Fiscehr Oncology [facility] [address] [place] [address] (Wo rk) 02/11/2022 TH Visit (TeleHealth) Hematology Ángel Kimbrough Oncology [facility] ONCOLOGY [place], [place] [address] (Wo rk) 02/11/2022 Infusion Hematology and Oncology 02/11/2022 Office Visit Hematology and Jazzy Armendariz R D [facility] HEMATOLOGY AND ONCOLOGY [place], [place] [address] (Wo rk) 02/22/2022 TH Visit (TeleHealth) Hematology and Yaquelin Celis Oncology E, [facility] HEMATOLOGY AND ONCOLOGY [place], [place] [address] (Wo rk) 02/25/2022 Office Visit Hematology and Ángel Fischer Oncology [facility] ONCOLOGY [place], [place] [address] (Wo rk) 02/25/2022 Infusion Hematology and Oncology 03/10/2022 Scheduled View Only Obstetrics and Nurse, Oboneal COLEMAN, raker buffing wheel 03/10/2022 Office Visit Obstetrics and Shazia Whitley Gynecology [facility] UROGYNECOLOGY [place], [place] [address] (Wo rk) 03/11/2022 Office Visit Hector and Ángel Fischer MD [facility] [place] [address] Oncology Alyssa Joseph, [address] MEDICAL ONCOLOGY [place], [place] [address] 03/11/2022 Infusion Hematology and Oncology 03/25/2022 Office Visit Hematology and Alyssa Joseph, Oncology [address] MEDICAL ONCOLOGY [place], [place] [address] (Wo rk) 03/25/2022 Infusion Hematology and Oncology 03/31/2022 Office Visit Hematology and Alan Livingston M D [facility] DR HEMATOLOGY/ONCOLOGY [place] [address] Oncology Nilam So, ASSOCIATE ATTORNEY [facility] DR HEMATOLOGY/ONCOLOGY [place] [address] 04/08/2022 Office Visit Hematology and Ángel Fischer MD [facility] [place] [address] Oncology Alyssa Joseph, [address] [place] [address] 04/08/2022 Infusion Hematology and Oncology documented as of this encounter Procedures Procedure Name Priority Date/Time Associated Diagnosis Comme nts OCT RETINA - OU - Routine 02/18/2016 3:53 PM Macular pucker, R esults for this BOTH EYES EDT bilateral procedure are i n the results section. documented in this encounter Results OCT [id number] EYES (02/18/2016 3:53 PM EDT) Anatomical Region Laterality Modality Other Specimen (Source) Anatomical Location Collection Method / Collectio n Time Received Time / Laterality Volume Narrative 02/18/2016 3:53 PM EDT This patient's imaging studies indicated by virtue of bilateral macular pucker but also visual symptoms occurrin g now in the right eye Fortunately, there are no signs of progr ession of the membrane or evolution to a macular hole schisis or o ther related issues in either eye. However, close follow-up advised with we ekly checking of each eye. Pavan Coffey MD OPHTHALMOLOGY SERVICES ORDER MELYSSA documented in this encounter Visit Diagnoses Diagnosis Macular pucker, bilateral - Primary Macular puckering of retina CLL (chronic lymphocytic leukemia) Chronic lymphoid leukemia, without menti on of having achieved remission [place]orses[place] retinal tear, right eye [place] tear of retina without detachm ent Macular pucker, right eye Macular puckering of retina documented in this encounter Care Teams Press Assistant Relationship Specialty Start Date End Date Berkley Madrigal MD PCP - General 04/13/10 02/15/18 AYLEEN Bray [address] [place] [address] documented as of this encounter
--- OUTSIDE RECORDS SUMMARY | 2022-02-11 01:11 | XMS_ITS | Encounter Summary ---
:1950 Author Organization [place] [address] Care Team Providers Name Role Phone Berkley Madrigal MD Primary Care Provider Reason for Visit Auth/Cert Specialty Diagnoses / Procedures Referred By Contact Refer red To Contact Diagnoses CLL (chronic lymphocytic leukemia) Pulmonary embolism Referral ID Status Reason Start Date Expiration Date Visits Requ ested Visits Authorized [id number] 1 1 Encounter Details Date Type Department Care Team Description 07/11/2016 Surgery Main Operating Room Merrick Coffey VITRECTOMY, W/ Zaria Valle MD MEMBRANE STRIPPING, [facility] DR INTRAOCULAR TAMPONADE [facility] OPHTHALMOLOGY DEPT. (WRVU 16.33) [place] [address] [place] [address] [phone] Social History Tobacco Use Types Packs/Day Years [...] Sign Reading Time Taken Comments Blood Pressure 140/70 07/11/2016 11:00 AM EST Pulse 92 07/11/2016 7:50 AM EST Temperature 36.7 ??C (98.1 ??F) 07/11/2016 10:32 AM EST Respiratory Rate 18 07/11/2016 11:00 AM EST Oxygen Saturation 95% 07/11/2016 11:00 AM EST Inhaled Oxygen Concentration - - Weight 76.8 kg (169 lb 6.4 oz) 07/11/2016 7:50 AM EST Height 163.8 cm (5' 4.5) 07/11/2016 7:50 AM EST Body Mass Index 28.63 07/11/2016 7:50 AM EST documented in this encounter Discharge Instructions Discharge InstructionsLori Richardson RN - 07/11/2016 10:39 AM EST SAME DAY PROGRAM POST-OPERATIVE INSTRUCTIONS CARE OF THE EYE 1. Do not remove eye patch or shield, unless instructed to do so. 2. Take it easy today. Avoid strenuous activities. 3. Bring your eye drops and the Eye Care Kit with you to each visit after your surgery. 4. Resume all your regular medications unless told otherwise 5. It is normal to have a scratchy sensation or mild pain in your eye. If you develop vomiting or severe pain not relieved with pain medication please call. 6. If you are having any problems or have additional concerns or questions please call [phone] and ask for your surgeon or the doctor employee communications coordinator. Patient InstructionsMerrick Coffey MD - 07/11/2016 10:35 AM EST Positioning after surgery: -You will need to lie ON LEFT SIDE 90% of every hour for 2 days. We recommend that you get up and stretch your legs and move around, with caution, for 5 min of everyhour to avoid a blood clot from forming in your body. Position will be reduced to 75% of every hour for the next 3 days, then 50% until instructed. -Proper positioning is necessary for optimal results -NEVER lie flat on your back Pain control: Use tylenol and ice packs Call the Eye Clinic at [phone] and ask for the doctor employee communications coordinator if you having severe pain, nauseaor vomiting You were given Diamox (a large capsule); take one at bedtime on the night of surgery and one first thing in the morning. This is an important medication to help control the pressure in your eye. documented in this encounter Medications at Time of Discharge Medication Sig Dispensed Refills Start Date End Date Green Tea Extract 500 Take 500 mg by mouth 0 mg Cap daily. melatonin 3 mg Tab Take 3 mg by mouth 0 nightly as needed. multivitamin capsule Take 1 capsule by 0 mouth daily. cholecalciferol, Take 2,000 mg by mouth 0 Vitamin D3, 50 mcg daily. (2,000 unit) Capsule estradiol (ESTRACE) 0.5 Take 0.5 mg by mouth 0 07/22/2016 mg TabletIndications: daily. Indications: estrogen replacement estrogen replacement aspirin 81 mg Tablet, Take 81 mg by mouth 0 07/22/2016 Delayed Release (E.C.) daily. imipramine (TOFRANIL) Take 10 mg by mouth 0 11/04/2019 10 mg tablet every morning. Glucosamine Sulfate 500 0 05/24/2010 0 09/02/2016 mg Tab documented as of this encounter Progress Notes Lori Richardson RN - 07/11/2016 11:18 AM EST 1032 - Pt arrived to recovery via stretcher. Monitors placed, alarms set and audible. 1035 - Discharge instructions reviewed with patient and daughter, all questions answered. documented in this encounter H&P Notes Merrick Coffey MD - 07/11/2016 8:37 AM EST No interval exam,ROS or medication changes CBC MD documented in this encounter Miscellaneous Notes Op Note - Merrick Coffey MD - 07/11/2016 10:38 AM EST [facility] Operative Note Patient Name: Carol Keller : [id number] MR#: [id number] Case Date: 07/11/2016 Surgeon: Surgeon(s) and Role: * Merrick Coffey MD - Primary PREOPERATIVE DIAGNOSIS: Epiretinal membrane and macular hole, right eye. POSTOPERATIVE DIAGNOSIS: Epiretinal membrane and macular hole, right eye. SURGEON: Merrick Coffey MD ANESTHESIA: General. COMPLICATIONS: None. OPERATIONS PERFORMED: 1. Membrane peeling of internal limiting membrane. 2. Membrane peeling of the epiretinal membrane. 3. Pars plana vitrectomy including complete disengagement of posterior hyaloid. 4. Fluid air exchange. 5. Air gas exchange (16% SF6). 6. Endolaser photocoagulation to previously preretinal breaks and attenuated retina. OPERATIVE INDICATIONS: The patient is a lady with a reduced visual acuity linked to an epiretinal membrane and a full thickness macular hole. After careful review of the risks, benefits, precautions, alternatives, and indications. She is given informed consent recognizing the risks of cataracts, endophthalmitis, bleeding, reopening of the hole, and any and all rare and unforeseen complications. The consent process took place both preoperatively here today as well as in the clinic previously. OPERATIVE TECHNIQUE: The patient was ushered into the operating room. General anesthesia was safely established. A timeout was performed collectively by the surgical and anesthesia teams. A divided 3 part pars plana vitrectomy setup was accomplished after the patient was prepped and draped in the usual sterile manner using Betadine solution in sterile field technique. A divided 3 part pars plana vitrectomy was performed being careful to disengage the posterior hyaloid. A small amount of triamcinolone was placed on the preretinal surface, and the internal limiting membrane and epiretinal membrane were looped together 360 degrees. This is found to be markedly tenacious and adherent, and therefore, the membrane was removed very slowly without undue traction in the central macula. Following removal of these membranes, spontaneous contraction of the hole was ascertained. Scleral indentation allowed for removal of the peripheral vitreous and hyaloid, and there were no contractions. Endolaser was applied to retinal breaks superiorly, superonasally, and superotemporally, but no distinct holes were seen. Retinal attenuation was seen. Careful inspection of the periphery did not disclose the evidence of tear or detachment. There appeared to previous a retinopexy at 6 o'clock as well. A fluid air exchange was performed. Five minutes later a small amount of residual fluid was removed to ensure complete gas fill. Sixteen percent of SF6 gas was prepared and diluted by the surgeon and administered by the surgeon with each scar being closed to achieve a final pressure of 10 mm after a 45 mL flush of SF6 (16%). With the pressure being verified with good perfusion, the conjunctivae and Tenons were closed followed by supplemental sub-Tenons anesthetic of Ancef and dexamethasone were administered. IV Diamox 500 mg was given. Cosopt and Maxitrol were placed followed by a sterile eye patch and shield. The patient was extubated and discharged to recovery. Instructions were reviewed with the patient's family regarding airway safety, venous thrombosis prevention, and careful positioning and other safety issues. The patient will return here tomorrow, but they should call the eye physician employee communications coordinator in the overnight period with any severe nausea, vomiting, or any other related concerns. Attestation: Case Date: 07/11/2016 I performed this procedure without the involvement of a resident. MERRICK COFFEY MD 07/11/2016 Brief Op Note - Merrick Coffey MD - 07/11/2016 10:36 AM EST Brief Operative Note Patient Name: Carol Keller : [id number] MR#: [id number] Case Date: 07/11/2016 Surgeon: Surgeon(s) and Role: * Merrick Coffey MD - Primary Preoperative diagnosis: macular pucker and hole od Postoperative diagnosis: mac hole Procedure(s) (LRB): VITRECTOMY, W/ MEMBRANE STRIPPING, INTRAOCULAR TAMPONADE (WRVU 16.33) (Right) //// ILM PEEL Anesthesia: GA Findings: Macular hole and ERM Complications: o Fluids: LR Estimated Blood Loss: 0 Drains: 0 Disposition: awakened from anesthesia, extubated and taken to the recovery room in a stable condition, having suffered no apparent untoward event. Condition: doing well without problems Infection Bundle used? N/A Attestation: Case Date: 07/11/2016 I performed this procedure without the involvement of a resident. (Please see the Surgical Encounter Summary for any Implant and Specimen details pertinent to this patient.) documented in this encounter Plan of Treatment Upcoming Encounters Date Type Specialty Care Team Description 02/11/2022 Scheduled View Only Hematology Ángel Kimbrough Oncology [facility] [address] [place] [address] (Shana hewitt) 02/11/2022 TH Visit (TeleHealth) Ángel Hill Oncology [facility] [address] [place] [address] (Wo rk) 02/11/2022 Infusion Hematology and Oncology 02/11/2022 Office Visit Hematology and Jazzy Armendariz R D [facility] AND ONCOLOGY [place], [place] [address] (Wo rk) 02/22/2022 TH Visit (TeleHealth) Hematology and Yaquelin Celis Oncology E, [facility] HEMATOLOGY AND ONCOLOGY [place], [place] [address] (Wo rk) 02/25/2022 Office Visit Hematology and Ángel Fischer, Oncology [facility] ONCOLOGY [place], [place] [address] (Wo rk) 02/25/2022 Infusion Hematology and Oncology 03/10/2022 Scheduled View Only Obstetrics and Nurse, Julian COLEMAN, assistant plant manager 03/10/2022 Office Visit Obstetrics and Shazia Whitley Gynecology [facility] UROGYNECOLOGY [place], [place] [address] (Wo rk) 03/11/2022 Office Visit Hematology and Ángel Fischer MD [facility] [place] [address] Oncology Alyssa Joseph, [address] MEDICAL ONCOLOGY [place], [place] [id number] 03/11/2022 Infusion Hematology and Oncology 03/25/2022 Office Visit Hematology and Alyssa Joseph Oncology [address] MEDICAL ONCOLOGY [place], [place] [id number] (Wo rk) 03/25/2022 Infusion Hematology and Oncology 03/31/2022 Office Visit Hematology and Alan Livingston M D [facility] HEMATOLOGY/[place] [address] Oncology Nilam So, [employer] [facility] DR HEMATOLOGY/[place] [address] 04/08/2022 Office Visit Hematology and Ángel Fischer MD [facility] [place] [address] Oncology Alyssa Joseph, [employer] [place] [address] 04/08/2022 Infusion Hematology and Oncology documented as of this encounter Procedures Procedure Name Priority Date/Time Associated Diagnosis Comme nts VITRECTOMY, W/ MEMBRANE 07/11/2016 9:01 AM Macular puc ker, STRIPPING, INTRAOCULAR EST bilateral TAMPONADE (WRVU 16.33) documented in this encounter Visit Diagnoses Diagnosis Macular pucker, bilateral Macular puckering of retina Macular pucker, bilateral Macular puckering of retina documented in this encounter Administered Medications Inactive Administered Medications - up to 3 most recent administrations Medication Order MAR Action Action Date Dose Rate Site atropine 1 % ophthalmic solution 1 Given 07/11/2016 8:22 AM EST 1 drop drop 1 drop, Right Eye, EVERY 5 MIN, 3 doses, First dose on Mon07/11/16 at 0815, Last dose on Mon07/11/16 at 0825, Day of Surgery (Day of Procedure), Routine Given 07/11/2016 8:15 AM EST 1 drop Given 07/11/2016 8:09 AM EST 1 drop balanced salt (BSS PLUS) Given 07/11/2016 9:37 AM 1 Bottle 19- Surgical Site irrigation solution EST ONCE PRN, Starting on Mon07/11/16 at 0937, Until Mon07/11/16 at 1355, Intra-Operative (Intra-Procedure), Routine balanced salt (BSS) Given 07/11/2016 9:37 AM 1 Bottle 19- Surgical Site irrigation solution EST ONCE PRN, Starting on Mon07/11/16 at 0937, Until Mon07/11/16 at 1355, Intra-Operative (Intra-Procedure), Routine balanced salt (BSS) Given 07/11/2016 9:37 AM 3 Bottles 19- Surgical Site irrigation solution EST ONCE PRN, Starting on 07/11/16 at 0937, Until Mon07/11/16 at 1355, Intra-Operative (Intra-Procedure), Routine BUpivacaine (PF) (MARCAINE) 0.75 % Given 07/11/2016 10:23 AM EST 1.25 mLs Right Eye (7.5 mg/mL) injection ONCE PRN, Starting on Mon07/11/16 at 0937, Until Mon07/11/16 at 1355, Intra-Operative (Intra-Procedure), Routine Given 07/11/2016 9:37 AM EST 1.25 mLs Right Eye ceFAZolin (ANCEF) injection Given 07/11/2016 10:21 AM 100 mg 19- Surg ical Site ONCE PRN, Starting on Mon EST 07/11/16 at 0938, Until 07/11/16 at 1355, Intra-Operative (Intra-Procedure), Routine dexamethasone (DECADRON) Given 07/11/2016 10:21 AM EST 2 mg 19- Surgical Site injection ONCE PRN, Starting on Mon07/11/16 at 0938, Until Mon07/11/16 at 1355, Intra-Operative (Intra-Procedure), Routine dorzolamide-timolol (PF) (COSOPT) 2-0.5 % Given 07/11/2016 10:22 AM EST 1 drop ophthalmic solution ONCE PRN, Starting on Mon07/11/16 at 0938, Until Mon07/11/16 at 1355, Intra-Operative (Intra-Procedure), Routine EPINEPHrine injection solution Given 07/11/2016 9:38 AM EST 0.5 mg ONCE PRN, Starting on Mon07/11/16 at 0938, Until Mon07/11/16 at 1355, Intra-Operative (Intra-Procedure), Routine fentaNYL (PF) 50 mcg/mL 2mL syringe 25 mcg, Intravenous, EVERY 5 MIN PRN, Pain, for 1-4 pa in score, Starting on Mon07/11/16 at 1035, Until Mon07/11/16 at 13 55, for 1-4 pain score Hold for respiratory rate less than 10 per minute. Maximum do se: 250 mcg over one hour., PACU Recovery fentaNYL (PF) 50 mcg/mL 2mL syringe 50 mcg, Intravenous, EVERY 5 MIN PRN, Pa in, for 5-10 pain score, Starting on Mon07/11/16 at 1035, Until Mon07/11/16 at 1355, for 5-10 p ain score Hold for respiratory rate less than 10 per minute. Maximum dose : 250 mcg over one hour., PACU Recovery lidocaine (XYLOCAINE) 20 Given 07/11/2016 10:23 AM 0.25 mLs 19- Surgical Site mg/mL (2 %) injection EST ONCE PRN, Starting on Mon07/11/16 at 0939, Until Mon07/11/16 at 1355, Intra-Operative (Intra-Procedure), Routine Given 07/11/2016 9:39 AM EST 1.25 mLs 19- S urgical Site moxifloxacin (VIGAMOX) 0.5 % ophthalmic Given 07/11/2016 8:22 AM EST 1 drop solution 1 drop 1 drop, Right Eye, EVERY 5 MIN, 3 doses, First dose on Mon07/11/16 at 0815, Last dose on Mon07/11/16 at 0825, Day of Surgery (Day of Procedure), Routine Given 07/11/2016 8:15 AM EST 1 drop Given 07/11/2016 8:09 AM EST 1 drop shlevags-riegzetej-zdvrtpwbnsbbi (DEXACINE) Given 06/23 10:22 AM EST 1 Tube 3.5 mg/g-10,000 unit/g-0.1 % ophthalmic ointment ONCE PRN, Starting on Mon07/11/16 at 0939, Until Mon07/11/16 at 1355, Intra-Operative (Intra-Procedure), Routine PHENYLephrine (MYDFRIN) 2.5 % ophthalmic Given 07/11/2016 8:22 A M EST 1 drop solution 1 drop 1 drop, Right Eye, EVERY 5 MIN, 3 doses, First dose on Mon07/11/16 at 0815, Last dose on Mon07/11/16 at 0825, Day of Surgery (Day of Procedure), Routine Given 07/11/2016 8:15 AM EST 1 drop Given 07/11/2016 8:09 AM EST 1 drop povidone-iodine 5 % ophthalmic solution Given 07/11/2016 9:39 AM EST 30 mLs ONCE PRN, Starting on Mon07/11/16 at 0939, Until Mon07/11/16 at 1355, Intra-Operative (Intra-Procedure), Routine prednisoLONE acetate (PRED FORTE) 1 % Given 07/11/2016 8:[address] 1 drop ophthalmic suspension 1 drop 1 drop, Right Eye, ONCE, 1 dose, On Mon07/11/16 at 0815, Day of Surgery (Day of Procedure), Routine scopolamine Patch Applied 07/11/2016 8:45 AM 1 patch 01 - Ear Behind (TRANSDERM-SCOP) 1.5 mg (1 EST (Left) mg over 3 days) patch 1 patch 1 patch, Transdermal, ONCE, 1 dose, On Mon07/11/16 at 0900, Recovery (Recovery-Hospital Unit), Routine scopolamine (TRANSDERM-SCOP) 1.5 mg (1 m g over 3 days) patch 1 dose, Starting on Mon07/11/16 at 0844, Until Mon07/11/16 at 0845, ARRON MARIA: cabinet override scopolamine (TRANSDERM-SCOP) 1.5 mg patc h Patch Removal Transdermal, EVERY 24 HOURS, 1 dose, First dose on Mon07/12/16 at 0900, Remove scopolamine 1.5 mg patch, Recovery (Recovery-Hospital Unit) scopolamine (TRANSDERM-SCOP) 1.5 mg patc h Patch Verification Transdermal, 2 TIMES DAILY, 1 dose, First dose on Mon07/11/16 at 2045, Verify scopolamine 1.5 mg patch., Recovery (Recovery-Hospital Unit) tetracaine (PF) (PONTOCAINE) ophthalmic Given 07/11/2016 9:39 AM EST 1 drop solution ONCE PRN, Starting on Mon07/11/16 at 0939, Until Mon07/11/16 at 1355, Intra-Operative (Intra-Procedure), Routine documented in this encounter Active and Recently Administered Medications Times are shown in EST. Scheduled Medication Order 07/09/2016 07/10/2016 07/11/2016 atropine 1 % ophthalmic solution 1 drop (COMPLETED) 08 (Given - Provider: Helen Contreras, ALLIE)08 (Given - Provider: Arron Maria, RN)08 (Given - Provider: Arron Maria RN) 1 drop, Right Eye, EVERY 5 MIN, 3 doses, First dose on Mon07/11/16 at 0815, Last dose on Mon07/11/16 at 0825, Day of Surgery (Day of Procedure), Routine moxifloxacin (VIGAMOX) 0.5 % ophthalmic solution 1 drop (COMPLET ED) 808 (Given - Provider: Helen Contreras RN)814 (Given - Provider: Arron Maria RN)08 (Given - Provider: Arron Maria RN) 1 drop, Right Eye, EVERY 5 MIN, 3 doses, First dose on Mon07/11/16 at 0815, Last dose on Mon07/11/16 at 0825, Day of Surgery (Day of Procedure), Routine PHENYLephrine (MYDFRIN) 2.5 % ophthalmic solution 1 drop (COMPLE QUINN) 808 (Given - Provider: Arron Maria RN)814 (Given - Provider: Arron Maria RN)821 (Given - Provider: Arron Maria RN) 1 drop, Right Eye, EVERY 5 MIN, 3 doses, First dose on Mon07/11/16 at 0815, Last dose on Mon07/11/16 at 0825, Day of Surgery (Day of Procedure), Routine prednisoLONE acetate (PRED FORTE) 1 % ophthalmic suspension 1 drop (COMPLETED) 814 (Given - Provider: Helen Contreras RN) 1 drop, Right Eye, ONCE, 1 dose, 06/23 at 0815, Day of Surgery (Day of Procedure), Routine scopolamine (TRANSDERM-SCOP) 1.5 mg (1 m g over 3 days) patch 1 patch (COMPLETED)(Linked Group 1) 0845 (Patch Applied - Provider: Arron Maria RN)0900 (Due) 1 patch, Transdermal, ONCE, 1 dose, Mon07/11/16 at 0900, Recovery (Recovery- Hospital Unit), Routine scopolamine (TRANSDERM-SCOP) 1.5 mg patch Patch Removal(Linked G roup 1) Transdermal, EVERY 24 HOURS, 1 dose, Fir st dose on Mon07/12/16 at 0900, Remove scopolamine 1.5 mg patch, Recovery (Recovery-Hospital Unit) scopolamine (TRANSDERM-SCOP) 1.5 mg patch Patch Verification(Anastasiya sanchezd Group 1) Transdermal, 2 TIMES DAILY, 1 dose, Firs t dose on Mon07/11/16 at 2045, Verify scopolamine 1.5 mg patch., Recovery (Recovery-Hospital Unit) sodium chloride 0.9 % flush 5 mL 1100 (Due) 5 mL, Intravenous, 2 TIMES DAILY, First dose on Mon07/11/16 at 1100, Until Discontinued, Routine PRN Medication Order 07/09/2016 07/10/2016 07/11/2016 acetaminophen (TYLENOL) tablet 1,000 mg 1,000 mg, Oral, EVERY 6 HOURS PRN, Start ing Mon07/11/16 at 1036, Until Mon07/11/16 at 1355, Pain, for MODERATE pain (4-6), Do not exceed 4,000 mg in 24 hours, Routine balanced salt (BSS PLUS) irrigation solution (CANCELED) 0937 (Given - Provider: Merrick Coffey MD) ONCE PRN, Starting Mon07/11/16 at 0937, Until Mon07/11/16 at 1355, Intra- Operative (Intra-Procedure), Routine balanced salt (BSS) irrigation solution (CANCELED) 0937 (Given - Provider: Merrick Coffey MD) ONCE PRN, Starting Mon07/11/16 at 0937, Until Mon07/11/16 at 1355, Intra- Operative (Intra-Procedure), Routine balanced salt (BSS) irrigation solution (CANCELED) 0937 (Given - Provider: Merrick Coffey MD) ONCE PRN, Starting Mon07/11/16 at 0937, Until Mon07/11/16 at 1355, Intra- Operative (Intra-Procedure), Routine BUpivacaine (PF) (MARCAINE) 0.75 % (7.5 mg/mL) injection (CANCEL ED) 0937 (Given - Provider: Merrick Coffey MD)1023 (Given - Provider: Merrick Coffey MD) ONCE PRN, Starting Mon07/11/16 at 0937, Until Mon07/11/16 at 1355, Intra- Operative (Intra-Procedure), Routine ceFAZolin (ANCEF) injection (CANCELED) 1021 (Given - Provider: Merrick Coffey MD - Comment: sc post op) ONCE PRN, Starting Mon07/11/16 at 0938, Until Mon07/11/16 at 1355, Intra- Operative (Intra-Procedure), Routine dexamethasone (DECADRON) injection (CANCELED) 1021 (Given - Provider: Merrick Coffey MD - Comment: sc post op) ONCE PRN, Starting 07/11/16 at 0938, Until 07/11/16 at 1355, Intra- Operative (Intra-Procedure), Routine dorzolamide-timolol (PF) (COSOPT) 2-0.5 % ophthalmic solution (C ANCELED) 1022 (Given - Provider: Merrick Coffey MD - Comment: post op) ONCE PRN, Starting 07/11/16 at 0938, Until 07/11/16 at 1355, Intra- Operative (Intra-Procedure), Routine EPINEPHrine injection solution (CANCELED) 09 (Given - Provider: Merrick Coffey MD - Comment: in bss+) ONCE PRN, Starting 07/11/16 at 0938, Until 07/11/16 at 1355, Intra- Operative (Intra-Procedure), Routine fentaNYL (PF) 50 mcg/mL 2mL syringe(Linked Group 2) 25 mcg, Intravenous, EVERY 5 MIN PRN, St arting 07/11/16 at 1035, Until 07/11/16 at 1355, Pain, for 1-4 pain score, for 1-4 pain score Hold for respiratory rate less than 10 per minute. Maximum dos e: 250 mcg over one hour., PACU Recovery, Routine fentaNYL (PF) 50 mcg/mL 2mL syringe(Linked Group 2) 50 mcg, Intravenous, EVERY 5 MIN PRN, St arting 07/11/16 at 1035, Until 07/11/16 at 1355, Pain, for 5-10 pain score, for 5-10 pain score Hold for respiratory rate less than 10 per minute. Maximum d ose: 250 mcg over one hour., PACU Recovery, Routine lidocaine (XYLOCAINE) 10 mg/mL (1 %) injection 3 mg 3 mg (0.3 mL), Subcutaneous, ONCE PRN, 1 dose, Starting 07/11/16 at 1035, Until 07/11/16 at 1355, for discomfort with PIV insertion, Routine lidocaine (XYLOCAINE) 20 mg/mL (2 %) injection (CANCELED) 0939 (Given - Provider: Merrick Coffey MD)1023 (Given - Provider: Merrick Coffey MD) ONCE PRN, Starting 07/11/16 at 0939, Until 07/11/16 at 1355, Intra- Operative (Intra-Procedure), Routine mgbjndsa-lwqzmnmza-emukymydylbdw (DEXACI NE) 3.5 mg/g-10,000 unit/g-0.1 % ophthalmic ointment (CANCELED) 1022 (Giv en - Provider: Merrick Coffey MD - Comment: 0.25 ml post op) ONCE PRN, Starting 07/11/16 at 0939, Until 07/11/16 at 1355, Intra- Operative (Intra-Procedure), Routine ondansetron (ZOFRAN) injection 4 mg 4 mg, Intravenous, EVERY 30 MIN PRN, Sta rting 07/11/16 at 1035, Until 07/11/16 at 1355, Nausea, May repeat 4 mg once in 30 minutes. If multiple antiemetics ordered, use ondansetron first and if ineffective use prochlorperazine second and if ineffective use promethazine, PACU Recovery povidone-iodine 5 % ophthalmic solution (CANCELED) 0939 (Given - Provider: Merrick Coffey MD) ONCE PRN, Starting 07/11/16 at 0939, Until 07/11/16 at 1355, Intra- Operative (Intra-Procedure), Routine promethazine (PHENERGAN) injection 12.5 mg 12.5 mg, Intravenous, EVERY 30 MIN PRN, 2 doses, Starting 07/11/16 at 1035, Until 07/11/16 at 1355, Nausea, VESICANT - Dilute with a minimum of 10 mL saline. LARGE VEIN only. Inject over 10 minute s into the farthest port of a running IV infusion. Remain with the patient and STOP infusion immediately if patient reports burning. Avoid extravasation. If multiple antiemetics are ordered, use onda nsetron first and if ineffective use pro chlorperazine second and if ineffective use promethazine., PACU Recovery, Routine sodium chloride 0.9 % flush 5-20 mL 5-20 mL, Intravenous, EVERY 1 MIN PRN, S tarting Mon07/11/16 at 1035, Until Mon07/11/16 at 1355, flush, Flush pertains to all indwelling lines. Flush per protocol found in the job aid using the link provided on this medication record., Routine tetracaine (PF) (PONTOCAINE) ophthalmic solution (CANCELED) 0939 (Given - Provider: Merrick Coffey MD - Comment: pre prep) ONCE PRN, Starting Mon07/11/16 at 0939, Until Mon07/11/16 at 1355, Intra- Operative (Intra-Procedure), Routine Linked Groups Order Group 1: scopolamine (TRANSDERM-SCOP) 1.5 mg (1 mg over 3 days) patch 1 patch (COMPLETED)Jump to med 1 patch, Transdermal, ONCE, 1 dose, Mon07/11/16 at 0900, Recovery (Recovery- Hospital Unit), Routine Followed by scopolamine (TRANSDERM-SCOP) 1.5 mg patch Patch VerificationJump to med Transdermal, 2 TIMES DAILY, 1 dose, Firs t dose on Mon07/11/16 at 2045
Verify scopolamine 1.5 mg patch.
Recovery (Recovery-Hospital Unit) Followed by scopolamine (TRANSDERM-SCOP) 1.5 mg patch Patch RemovalJump to med Transdermal, EVERY 24 HOURS, 1 dose, Fir st dose on Mon07/12/16 at 0900
Remove scopolamine 1.5 mg patch
Recovery (Recovery-Hospital Unit) Group 2: fentaNYL (PF) 50 mcg/mL 2mL syringeJump to med 25 mcg, Intravenous, EVERY 5 MIN PRN, St arting Mon07/11/16 at 1035, Until Mon07/11/16 at 1355, Pain, for 1-4 pain score
for 1-4 pain score Hold for respiratory rate less than 10 per mi nute. Maximum dose: 250 mcg over on e hour.
PACU Recovery, Routine Or fentaNYL (PF) 50 mcg/mL 2mL syringeJump to med 50 mcg, Intravenous, EVERY 5 MIN PRN, St arting Mon07/11/16 at 1035, Until Mon07/11/16 at 1355, Pain, for 5-10 pain score
for 5-10 pain score Hold for respiratory rate less than 10 per minute. Maximum dose: 250 mcg over one hour.
PACU Recovery, Routine documented in this encounter Care Teams Historic Site Administrator Relationship Specialty Start Date End Date Berkley Madrigal MD PCP - General 04/13/10 02/15/18 AYLEEN Bray [address] [place] [address] documented as of this encounter
--- OUTSIDE RECORDS SUMMARY | 2022-02-11 01:11 | XMS_ITS | Encounter Summary ---
:1950 Author Organization [facility] [place] [address] Care Team Providers Name Role Phone Berkley Madrigal MD Primary Care Provider Reason for Visit Reason Comments Post Op Encounter Details Date Type Department Care Team Description 07/12/2016 Office Visit Ophthalmology at [facility] Pavan Mancera, [facility] [place] [address] OPHTHALMOLOGY DE PT. [place], [place] [address] (Wo rk) Social History Tobacco [...] as of this encounter Patient Instructions Patient InstructionsYong Fang, COA - 07/12/2016 9:30 AM EST INSTRUCTIONS FOLLOWING EYE SURGERY Eye Medication - Prednisolone ([place]erwood Cap): 1 drop in Right eye 4 times/day - SHAKE WELL - Vigamox (Davalos Cap): 1 drop in Right eye 4 times/day - Neomycin Ointment: Apply directly to Right eye nightly, or as needed ALWAYS WAIT 5 MINUTES BETWEEN DROPS Positioning After Surgery Please lie [place] or on Left side - 90% of the time for two more days, then - 75% of the time for three more days, then - 50% of the time until your 1 week post-operative follow up visit Avoid Eye Injuries Following surgery, your eye is more susceptible to injuries. Take special precautions to prevent injury: - DO NOT RUB the operative eye! - Wear the plastic shield while sleeping, until your 1 week post-operative follow up visit - Wear eye protection (glasses or shield) any time you could accidentally get something in your eye Avoid Eye Contamination Following surgery, your eye is more susceptible to infection. Take special precautions to prevent infection: - Wash your hands before putting in your drops and before touching the eye - DO NOT SWIM OR BATHE in contaminated water (i.e. Pond, Hot Tub, Pool). Showering is permitted, but avoid getting tap water into the operative eye. Call the Eye Clinic at immediately if you experience: any severe pain, severe light sensitivity, nausea and/or vomiting, sudden vision loss, or any thick discharge from the operative eye. You can call this number day or night. After hours, the hospital metal pickling equipment operator will connect you to the doctor internet sales consultant. documented in this encounter Progress Notes Pavan Coffey MD - 07/12/2016 9:30 AM EST Postop day 1 status post vitrectomy membrane peeling for epiretinal membrane and macular hole Good gas fill Anterior segment quiet with deep quiet and clear anterior segment anatomy Retina flat 360 Pred forte and Vigamox 4 times a day Position 90% ??2 days then 75% for 3 days and 50% for 3 days Return 5-7 days or immediately if severe pain photophobia and nausea vomiting or other related symptoms so documented in this encounter Plan of Treatment Upcoming Encounters Date Type Specialty Care Team Description 02/11/2022 Scheduled View Only Hematology and Ángel Fischer Oncology [facility] [place] [address] (Shana hewitt) 02/11/2022 TH Visit (TeleHealth) Ángel Hill Oncology [facility] [address] [place] [address] (Shana hewitt) 02/11/2022 Infusion Hematology and Oncology 02/11/2022 Office Visit Hematology and Jazzy Armendariz R D Oncology [facility] DRIVE HEMATOLOGY AND ONCOLOGY [place], [place] [address] (Shana hewitt) 02/22/2022 TH Visit (TeleHealth) Hematology and Yaquelin Celis Oncology E, [facility] HEMATOLOGY AND ONCOLOGY [place], [place] [address] (Wo rk) 02/25/2022 Office Visit Hematology and Ángel Fischer Oncology [facility] ONCOLOGY [place], [place] [address] (Wo rk) 02/25/2022 Infusion Hematology and Oncology 03/10/2022 Scheduled View Only Obstetrics and Nurse, Julian COLEMAN, welfare eligibility interviewer 03/10/2022 Office Visit Obstetrics and Shazia Whitley, Gynecology [facility] UROGYNECOLOGY [place], [place] [address] (Wo rk) 03/11/2022 Office Visit Hematology and Ángel Fischer MD [facility] [place] [address] Oncology Alyssa Joseph[address] MEDICAL ONCOLOGY [place], [place] [address] 03/11/2022 Infusion Hematology and Oncology 03/25/2022 Office Visit Hematology and Alyssa Joseph Oncology [address] MEDICAL ONCOLOGY [place], [place] [address] (Wo rk) 03/25/2022 Infusion Hematology and Oncology 03/31/2022 Office Visit Hematology and Alan Livingston M D [facility] HEMATOLOGY/[place] [address] Oncology Nilam So, [facility] HEMATOLOGY/[place] [address] 04/08/2022 Office Visit Hematology and Ángel Fischer MD [facility] [place] [place] [address] Oncology Alyssa Joseph, [address] MEDICAL ONCOLOGY [place], [place] [address] 04/08/2022 Infusion Hematology and Oncology documented as of this encounter Visit Diagnoses Diagnosis Macular pucker, bilateral Macular puckering of retina documented in this encounter Care Teams Associate Professor Of Surgery Relationship Specialty Start Date End Date Berkley Madrigal MD PCP - General 04/13/10 02/15/18 AYLEEN Katarina [address] [place], [place] [id number] documented as of this encounter
--- OUTSIDE RECORDS SUMMARY | 2022-02-11 01:11 | XMS_ITS | Encounter Summary ---
:1950 Author Organization [facility] [place] [address] Care Team Providers Name Role Phone Berkley Madrigal MD Primary Care Provider Encounter Details Date Type Department Care Team Description 12/21/2015 Office Visit Endocrinology at [facility] Maribel Julian Diabetes mellitus type One [facility] E, INSULATION INSTALLER 2, [place] [address] CENTER [phone] [place] [address] Social History Tobacco Use Types Packs/Day Years [...] Sign Reading Time Taken Comments Blood Pressure 142/69 12/21/2015 4:15 PM EDT Pulse 74 12/21/2015 4:15 PM EDT Temperature - - Respiratory Rate - - Oxygen Saturation - - Inhaled Oxygen Concentration - - Weight 77.1 kg (170 lb) 12/21/2015 4:15 PM EDT Height 162.6 cm (5' 4) 12/21/2015 4:15 PM EDT Body Mass Index 29.18 12/21/2015 4:15 PM EDT documented in this encounter Patient Instructions Patient InstructionsMaribel Ware APRN - 12/21/2015 4:30 PM EDT Consider sleep study 1 yr F/U with Dr Rich documented in this encounter Progress Notes Maribel Ware APRN - 12/21/2015 4:30 PM EDT REASON FOR VISIT: Annual visit for type 2 DM with symptoms of hypoglycemia. Reminder, prefers to be called Anahi. BRIEF HISTORY: Presents with friend, brings detailed blood glucose log. States she continues to have to eat every 2 hours to avoid hypoglycemia. Has had endocrine testing in the past. Tried taking Precose, but had too many GI side effects. Highest hemoglobin A1c when she was first diagnosed with diabetes approximately 5 years ago was 7.2%. Physical activity is walking the dog. PAST MEDICAL HISTORY: Significant for CLL. REVIEW OF SYSTEMS: Depression and mood: Overall is doing well. 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 Eyes: History of retinal tear not related to diabetes. No recent headaches or chest pain or shortness of breath. GI symptoms: Takes medication for GERD. Sleep pattern is usually okay. PHYSICAL EXAM: Appearance: She appears in excellent health. She is overweight, 170 pounds. She has gained 2 pounds in the past year. Blood pressure 142/67. Eyes: No retinopathy with green light exam. Neck: No thyromegaly or lymphadenopathy. Heart: Regular rate and rhythm. No murmurs. Lungs are clear to auscultation. Feet: Skin is normal. Pulses are normal. Neuro: Normal sensation to 10 g of pressure. Hemoglobin A1c 6.2%. One year ago, it was 6.1%. TSH is in the reference range. Reviewed Glucofacts meter results that patient downloaded from her Tomasz Contour meter. Lowest glucose level was 89. IMPRESSION AND PLAN: DM type 2, in continued excellent control with symptoms of hypoglycemia that patient states makes her feel weak and tired, and then when she snacks glucose levels get too high. Eats a lot of fruit. Patient asks if there is a medication she could take to make her feel less hungry. Do not want to add a medication with an A1c of 6.2%. Daytime fatigue could also be related to sleep apnea, which the patient states she has been informed in the past that she has. 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 Would like to return to Endocrinology in 1 year[address] appointment with Dr. Pasquale Rich, who reviewed her endocrine testing in the past. This was a 29 minute office visit with 28 minutes spent counseling [id number] with patient and friend in the management of glucose levels, reviewing meter Download. Recent Results (from the past 72 hour(s)) Hemoglobin A1c Result Value Ref Range Hemoglobin A1C 6.2 (H) 4.3 - 5.6 % Est Avg Gluc 131 mg/dL HDL/Cholesterol Profile Result Value Ref Range Chol, Total 237 (H) <=199 mg/dL HDL 75 >=40 mg/dL Chol/HDL Ratio 3.2 ratio LDL Cholesterol, Direct Result Value Ref Range LDL Chol Direct 143 (H) <=99 mg/dL TSH Result Value Ref Range TSH 2.68 0.27 - 4.20 mcIU/mL documented in this encounter Plan of Treatment Upcoming Encounters Date Type Specialty Care Team Description 02/11/2022 Scheduled View Only Hematology Ángel Kimbrough Oncology [facility] ONCOLOGY [place] [id number] (Wo rk) 02/11/2022 TH Visit (TeleHealth) Hematology Ángel Kimbrough Oncology [facility] DR UMANA [place], [place] [address] (Wo rk) 02/11/2022 Infusion Hematology and Oncology 02/11/2022 Office Visit Hematology and Jazzy Armendariz R D Oncology [facility] HEMATOLOGY AND ONCOLOGY [place] [id number] (Wo rk) 02/22/2022 TH Visit (TeleHealth) Hematology and Yaquelin Celis Oncology E, [facility] HEMATOLOGY AND ONCOLOGY [place] [id number] (Wo rk) 02/25/2022 Office Visit Ángel Hill Oncology [facility] DR UMANA [place], [place] [address] (Wo rk) 02/25/2022 Infusion Hematology and Oncology 03/10/2022 Scheduled View Only Obstetrics and Nurse, Julian COLEMAN, office machine embossograph operator 03/10/2022 Office Visit Obstetrics and Shazia Whitley Gynecology INSULATION INSTALLER [facility] UROGYNECOLOGY [place], [place] [address] (Wo rk) 03/11/2022 Office Visit Ángel Hill MD [facility] [place] [address] Oncology Alyss[address] Joesph[address] MEDICAL ONCOLOGY [place], [place] [id number] 03/11/2022 Infusion Hematology and Oncology 03/25/2022 Office Visit Hematology and Alyssa Joseph, Oncology [address] MEDICAL ONCOLOGY [place], [place] [phone] (Wo rk) 03/25/2022 Infusion Hematology and Oncology 03/31/2022 Office Visit Hematology and Alan Livingston M D [facility] DR HEMATOLOGY/[place] [address] [facility] [address] 04/08/2022 Office Visit Hematology and Ángel Fischer MD [facility] [place] [address] Oncology Alyssa Joseph[address] [place] [address] 04/08/2022 Infusion Hematology and Oncology documented as of this encounter Results U Albumin/Cre Ratio (12/21/2015 3:32 PM EDT) athologist Signature Alb/Cr Ratio, <9 0 - 29 [facility] Random mcg/mg Cr [facility] Comment: Reference Ranges: <30 mcg/mg: Normal [...] 362 U Albumin Conc, Random <3.0 mg/L [facility] Comment: Result rechecked. U Creatinine 35 mg/dL [facility] Specimen Anatomical Collection Method Collection Time Receive d Time (Source) Location / / Volume Laterality Urine specimen 12/21/2015 3:32 PM 016 3:54 (specimen) EDT PM EDT Resulting Agency Comment Spec In Lab Pasquale Rich MD URINE ORDERABLES Performing Organization Address City/[facility]/ZIP Code Phon e Number [address] TSH (12/21/2015 3:27 PM EDT) P athologist Signature TSH 2.68 0.27 - 4.20 [facility] mcIU/mL [facility] Specimen Anatomical Collection Method Collection Time Receive d Time (Source) Location / / Volume Laterality Blood specimen 12/21/2015 3:27 PM 016 3:37 (specimen) EDT PM EDT Resulting Agency Comment Spec In Lab Pasquale Rich MD CHEMISTRY ORDERABLES Performing Organization Address City/[facility]/[place] [address] (ABNORMAL) LDL Cholesterol, Direct (12/21/2015 3:27 PM EDT) P athologist Signature LDL Chol 143 (H) <=99 mg/dL [facility] Comment: The National Cholesterol Education Progr am (NCEP) has set the following guidelines for LDL Cholesterol: Reference range: ?? Optimal: ?<100 mg/dL ?? Near Optimal/Above Optimal: ?? 100-1 29 mg/dL ?? Borderline high: ?130-159 mg/dL ?? High: ? 160-189 mg/dL ?? Very high: ?>ce=480 mg/dL ISI 2001: 285(19):0630-5079 Specimen Anatomical Collection Method Collection Time Receive d Time (Source) Location / / Volume Laterality Blood specimen 12/21/2015 3:27 PM 016 3:37 (specimen) EDT PM EDT Resulting Agency Comment Spec In Lab Pasquale Rich MD CHEMISTRY ORDERABLES Performing Organization Address City/State/[place] [address] (ABNORMAL) HDL/Cholesterol Profile (12/21/2015 3:27 PM EDT) athologist Signature Chol, Total 237 (H) <=199 [facility] mg/dL [facility] Comment: Recommendations of the NCEP Adult Treatm ent Panel for the following risk cutoff thresholds for the [place] populatio n: Desirable: <200 mg/dL Borderline High: 200-239 mg/dL High: > or = 240 mg/dL HDL 75 >=40 mg/dL [facility] Comment: Reference range: ??Low HDL: ?? < 40 mg/dL ??Normal: ?40-60 mg/dL ??Desirable: > 60 mg/dL ISI 2001; 285(19):1989-7184 Chol/HDL Ratio 3.2 ratio [facility] Comment: A Cholesterol to HDL ratio below 4:1 is desirable. ??Studies suggest that increased CAD risk occurs at ratios abov e 5 for females and above 6 for men. ? [place] Heart Association ??(htt p://www.americanheart.org) ? Maria Teresa Int Med, 1994; 121:641 ? AM J Med, 1998; 105(1A):48S Specimen Anatomical Collection Method Collection Time Receive d Time (Source) Location / / Volume Laterality Blood specimen 12/21/2015 3:27 PM 016 3:37 (specimen) EDT PM EDT Resulting Agency Comment Spec In Lab Pasquale Rich MD CHEMISTRY ORDERABLES Performing Organization Address City/State/ZIP Code Phon e Number [place] [phone] [address] (ABNORMAL) Hemoglobin A1c (12/21/2015 3:27 PM EDT) Analysis Performed At Patho logist Time Signature Hemoglobin A1C 6.2 (H) 4.3 - 5.6 [facility] Comment: Reference Range: 4.3 - 5.6% 5.7 - 6.4% - Increased Risk of Developin g Diabetes Mellitus >= 6.5% - Consistent with diagnosis of D iabetes Mellitus In the absence of hyperglycemia (i.e. pl asma glucose > 200 mg/dL) or classic symptoms of hyperglycemia a repeat measu rement of HbA1c should be performed on a separate sample to confirm the diagnos is. Diagnosis and Classification of Diabetes Mellitus, Diabetes Care 2013; 36: Suppl. 1, S67-74 Est Avg Gluc 131 mg/dL [facility] Comment: eAG equivalents for HbA1c percentages: HbA1c(%) ?eAG(mg/dL) 6.0 ?126 6.5 ?140 7.0 ?154 7.5 ?169 8.0 ?183 8.5 ?197 9.0 ?212 9.5 ?226 10.0 ? 240 Limitations: The eAG calculation has not been validated on women, individuals below 18 years old and above 70 years old, and individuals with hemoglobinopathies. Additional resources are available on [employer] website: http://[employer] [email or web address] Lázaro MIX, Lolis J, Reece R, et al. ??Tr anslating the A1C assay into estimated average glucose values. ??Diabetes Care 2008:31(8):4287-5125. Specimen Anatomical Collection Method Collection Time Receive d Time (Source) Location / / Volume Laterality Blood specimen 12/21/2015 3:27 PM 016 3:37 (specimen) EDT PM EDT Resulting Agency Comment Spec In Lab Pasquale Rich MD CHEMISTRY ORDERABLES Performing Organization Address City/State/[place] [address] documented in this encounter Visit Diagnoses Diagnosis Diabetes mellitus type 2, uncomplicated Type II or unspecified type diabetes omer litus without mention of complication, not stated as uncontrolled documented in this encounter Care Teams Lotus Notes Administrator Relationship Specialty Start Date End Date Berkley Madrigal MD PCP - General 04/13/10 02/15/18 AYLEEN D [address] [place] [address] documented as of this encounter
--- OUTSIDE RECORDS SUMMARY | 2022-02-11 01:11 | XMS_ITS | Encounter Summary ---
:1950 Author Organization [facility] [place] [address] Care Team Providers Name Role Phone Berkley Madrigal MD Primary Care Provider Reason for Visit Auth/Cert Specialty Diagnoses / Procedures Referred By Contact Refer red To Contact Diagnoses CLL (chronic lymphocytic leukemia) Pulmonary embolism Referral ID Status Reason Start Date Expiration Date Visits Requ ested Visits Authorized [id number] 1 1 Encounter Details Date Type Department Care Team Description 07/11/2016 Anesthesia Event Main Operating Room Marciano Chacon MD [facility] [place] [address] [place] [address] [phone] Anesthesia Record Procedure Summary Procedure Name Responsible Anesthesia Start Anesthesia Stop Anesthesiologist Time Time VITRECTOMY, W/ Marciano Stewart MD 07/11/16 0859 07/11/16 103 6 MEMBRANE STRIPPING, INTRAOCULAR TAMPONADE (WRVU 16.33) (Right Eye) Events Date Time Event Comment 07/11/2016 0859 Start 0901 AN Verify 0901 An Start Data 0905 An Induction 0907 An Intubation 0908 Anesthesia Ready 0932 Break/Relief In MARCIANO STEWART MD 0946 Break/Relief Out 1027 Extubation/LMA Out 1031 an stop data 1033 Recovery or ICU Handoff Patient care was transferred to the destination unit staff after review of the patient's medica l history, current anesthetic/surgi kassie status and plan, according to the Provider Handoff Checklist. 1036 Stop 1129 Name Total Midazolam 2 mg fentaNYL 25 mcg IV Lidocaine 50 mg Propofol 250 mg PHENYLephrine 280 mcg ePHEDrine 45 mg Ondansetron 4 mg Dexamethasone 8 mg PHENYLephrine INF 1,420 mcg acetaZOLAMIDE 500 mg Lactated Ringers 900 mL Agents Name O2 Air N2O Sevoflurane (et) Blood No blood administrations on file. Lines, Drains, and Airways Type Details Placement Removal Incision 07/11/16; eye; 01/17/22 07/11/16 0000 by 2 1715 by (LDA cleanup utility Apple Wallis RN Muller, Dierdre L RA#[id number]); 1715 (LDA cleanup utility RA#[id number]) PIV 07/11/16; 0826; 07/11/16 0826 by Crow, 07/11/16 1146 by bcok-ufp-wjeegv catheter ALLIE Sexton John P, RN system; 20 gauge; BSmithRN; intradermal injection; no longer indicated; 07/11/16; 1146 Supraglottic Mask Ventilation: Adjunct 07/11/16 0905 by 07/11 1027 by (2) (opa); LMA Type: Tati Trammell, SPRAYER AUTOMATIC SPRAY MACHINE Tati Lau, air-Q; LMA Size: 3 (3.5); SPRAYER AUTOMATIC SPRAY MACHINE Inserted by: ZANE Trammell documented in this encounter Social History Tobacco [...] encounter OR Notes Anesthesia Postprocedure Evaluation - Marciano Stewart MD - 07/11/2016 11:29 AM EST [facility] Department of Anesthesiology Post-procedure Note Patient: Carol Keller Procedure Summary Date Anesthesia Start Anesthesia Stop Room / Location 07/11/16 0859 1036 [facility] OR 21 / [facility] MAIN OR Procedure Diagnosis Surgeon Responsible Provider VITRECTOMY, W/ MEMBRANE STRIPPING, INTRAOCULAR TAMPONADE (WRVU 16.33) (Right Eye) Macular pucker, bilateral (macular pucker andd hole od) Pavan Coffey MD Dodge, Carter P, MD All Anesthesia Providers: Anesthesiologist: Marciano Stewart MD SPRAYER [employer]OM[employer] SPRAY MACHINE: Tati Tarmmell CRNA Last (1hr) Vitals: BP 123/74 (07/11/16 1115) Temp 36.7 ??C (98.1 ??F) (07/11/16 1032) Pulse Resp 18 (07/11/16 1115) SpO2 92 % (07/11/16 1115) Patient Location: PACU/[facility] Level of Consciousness: Awake and Alert Pain Management: Satisfactory Analgesia PONV: None Cardiovascular Status: Respiratory Status: At Baseline Postoperative Fluid Status: Intravascular EUvolemia Possible Anesthetic Complications: NONE apparent at time of evaluation Final Primary Anesthesia Type: General (The anesthetic type performed was the same as planned.) Comments: Anesthesia Preprocedure Evaluation - Marciano Stewart MD - 07/08/2016 4:43 PM EST Pre-Anesthesia Evaluation for: Carol Keller a 66 y.o. female. Diet controlled DM, CLL. No cardiopulmonary disease. Very concerned about PONV. Desires scop patch Procedure(s): VITRECTOMY, W/ MEMBRANE STRIPPING, INTRAOCULAR TAMPONADE (VU 16.33) Patient Active Problem List Diagnosis ??? AK [...] prognosis) Observation only Pneumovax 2014 Past Medical History Diagnosis Date ??? Cancer [...] ret tear ??? Laser surgery 08/14/2012 FOCAL,OD Social History Substance Use Topics ??? Smoking status: Never Smoker ??? Smokeless tobacco: Never Used ??? Alcohol use Yes Comment: once per year History Drug Use No Allergies Allergen Reactions ??? Penicillins Rash ??? Sulfa (Sulfonamide Antibiotics) CIS - Unknown ??? Penicillins CIS - Rash Medications: MAR and/or home medications have been reviewed. Physical Exam: There were no vitals filed for this visit. There is no height or weight on file to calculate BMI. Airway Assessment: Mallampati: II TM distance: >3 FB Neck ROM: full Cardiovascular Assessment: Rhythm: regular Rate: normal Pulmonary Assessment: breath sounds clear to auscultation Dental Assessment: Misc Assessment: Anesthesia Plan: ASA 2 general, with a(n) intravenous induction ga lma I discussed risks including , nausea and vomiting, sore throat with alternatives, if available.Pt consents Discussed risks of scop patch. She requests. Region - Other Informed Consent: Plan discussed with SPRAYER [employer]OMATIC SPRAY MACHINE. PAT Staff Note documented in this encounter Plan of Treatment Upcoming Encounters Date Type Specialty Care Team Description 02/11/2022 Scheduled View Only Hematology and Ángel Fischer Oncology [facility] [address] [place] [place], [place] [address] (Wo rk) 02/11/2022 TH Visit (TeleHealth) Ángel Hill Oncology [facility] [address] [place], [place] [address] (Wo rk) 02/11/2022 Infusion Hematology and Oncology 02/11/2022 Office Visit Hematology and Jazzy Armendariz R D Oncology [facility] HEMATOLOGY AND ONCOLOGY [place], [place] [address] (Wo rk) 02/22/2022 TH Visit (TeleHealth) Hematology and Yaquelin Celis Oncology E, [facility] HEMATOLOGY AND ONCOLOGY [place], [place] [address] (Wo rk) 02/25/2022 Office Visit Ángel Hill Oncology [facility] [address] [place], [place] [address] (Wo rk) 02/25/2022 Infusion Hematology and Oncology 03/10/2022 Scheduled View Only Obstetrics and Nurse, Julian COLEMAN, physical therapy manager 03/10/2022 Office Visit Obstetrics and Shazia Whitley, Gynecology [facility] UROGYNECOLOGY [place], [place] [address] (Wo rk) 03/11/2022 Office Visit Hematology and Ángel Fischer MD [facility] [place] [address] Oncology Alyssa Joseph[address] MEDICAL ONCOLOGY [place], [place] [address] 03/11/2022 Infusion Hematology and Oncology 03/25/2022 Office Visit Hematology and Alyssa Joseph, Oncology [address] MEDICAL ONCOLOGY [place], [place] [address] (Wo rk) 03/25/2022 Infusion Hematology and Oncology 03/31/2022 Office Visit Hematology and Alan Livingston M D [facility] DR HEMATOLOGY/[place] [address] [facility] [address] 04/08/2022 Office Visit Hematology and Ángel Fischer MD [facility] [place] [address] On[address] MEDICAL ONCOLOGY [place], [place] [id number] 04/08/2022 Infusion Hematology and Oncology documented as of this encounter Visit Diagnoses Not on filedocumented in this encounter Administered Medications Inactive Administered Medications - up to 3 most recent administrations Medication Order MAR Action Action Date Dose Rate Site acetaZOLAMIDE (DIAMOX) injection Given 07/11/2016 10:14 AM EST 500 mg PRN, Starting on Mon07/11/16 at 1014, Until Mon07/11/16 at 1036, Anesthesia Intra-op, Routine dexamethasone (DECADRON) injection Given 07/11/2016 9:22 AM EST 8 mg PRN, Starting on Mon07/11/16 at 0922, Until Mon07/11/16 at 1036, Anesthesia Intra-op, Routine ePHEDrine 5 mg/mL multi-dose injection Given 07/11/2016 9:58 AM EST 15 mg PRN, Starting on Mon07/11/16 at 0929, Until Mon07/11/16 at 1036, Anesthesia Intra-op, Routine Given 07/11/2016 9:37 AM EST 10 mg Given 07/11/2016 9:32 AM EST 10 mg fentaNYL 50 mcg/mL multi-dose injection Given 07/11/2016 9:54 AM EST 25 mcg PRN, Starting on Mon07/11/16 at 0954, Until Mon07/11/16 at 1036, Pain, Anesthesia Intra-op, Routine lactated ringers infusion New Bag 07/11/2016 8:59 AM EST CONTINUOUS PRN, Starting on Mon07/11/16 at 0859, Until Mon07/11/16 at 1036, Anesthesia Intra-op lidocaine (PF) (XYLOCAINE) 100 mg/5 mL (2 %) Given 7 9:05 AM EST 50 mg injection PRN, Starting on Mon07/11/16 at 0905, Until Mon07/11/16 at 1036, Anesthesia Intra-op, Routine midazolam (PF) (VERSED) 1 mg/mL multi-dose Given 07/11/2016 8:59 AM EST 2 mg injection PRN, Starting on Mon07/11/16 at 0859, Until Mon07/11/16 at 1036, Sleep, Anesthesia Intra-op, Routine ondansetron (ZOFRAN) injection Given 07/11/2016 10:19 AM EST 4 mg PRN, Starting on Mon07/11/16 at 1019, Until Mon07/11/16 at 1036, Nausea, Anesthesia Intra-op, Routine PHENYLephrine Rate/Dose Change 07/11/2016 9:50 AM 40 mcg/min 30 mL/hr (VONDA-SYNEPHRINE) 20 mg in EST sodium chloride 250 mL (standard ADULT & Carlos Enrique greater than 20kg) infusion CONTINUOUS PRN, Starting on Mon07/11/16 at 0945, Until Mon07/11/16 at 1036, Anesthesia Intra-op, Routine New Bag 07/11/2016 9:45 AM EST 20 mcg/min 15 mL/hr PHENYLephrine HCl in NS (PF) Given 07/11/2016 9:45 AM EST 120 mc g (VONDA-SYNEPHRINE) 0.8 mg/10 mL (80 mcg/mL) multi-dose injection Syrg PRN, Starting on Mon07/11/16 at 0930, Until Mon07/11/16 at 1036, Anesthesia Intra-op, Routine Given 07/11/2016 9:40 AM EST 80 mcg Given 07/11/2016 9:30 AM EST 80 mcg propofol (DIPRIVAN) 10 mg/mL bolus injection Given 7 9:07 AM EST 50 mg (Anesthesia) PRN, Starting on Mon07/11/16 at 0905, Until Mon07/11/16 at 1036, Anesthesia Intra-op Given 07/11/2016 9:06 AM EST 50 mg Given 07/11/2016 9:05 AM EST 150 mg documented in this encounter Care Teams Unit Clerk Relationship Specialty Start Date End Date Berkley Madrigal MD PCP - General 04/13/10 02/15/18 AYLEEN Katarina [address] [place] [address] documented as of this encounter
--- OUTSIDE RECORDS SUMMARY | 2022-02-11 01:11 | XMS_ITS | Encounter Summary ---
:1950 Author Organization [facility] Address [facility] [place] [address] Care Team Providers Name Role Phone Berkley Madrigal MD Primary Care Provider Reason for Visit Reason Comments Macular Pucker Encounter Details Date Type Department Care Team Description 06/10/2016 Office Visit Ophthalmology at [facility] Pavan Mancera Macular pucker, [facility] MD Tori bilateral ([address] Drive [facility] Dx) [place] [address] OPHTHALMOLOGY DE PT. [place], [place] [address] (Wo rk) Social History Tobacco [...] encounter Progress Notes Pavan Coffey MD - 06/10/2016 2:00 PM EST Bilateral epiretinal membranes Definite progression to epiretinal membrane and full-thickness macular hole stage II right eye More recent symptomology left eye History of retinal tear right eye. Stable Dear Dr. Fischer; I had the pleasure seeing this patient today on June 10, 2016. In summary, her membrane in the right eye has progressed in a manner so as to create an early full-thickness macular hole. It is my opinion that this will not spontaneously resolve but worsened at some point in the very near future. Acco rdingly, the risks and benefits of surgery were carefully and thoroughly outlined here today. Collectively, we've decided that vitrectomy membrane peeling and gas exchange should take place sometime inthe next several weeks. In the left eye, the membrane is also eliciting traction but no hole or edema or cyst is identified I will keep you informed regarding this patient surgical progress. I understand that surgery has been scheduled for about 3-4 weeks from now. Respectfully Pavan ?? documented in this encounter Plan of Treatment Upcoming Encounters Date Type Specialty Care Team Description 02/11/2022 Scheduled View Only Hematology and Ángel Fischer Oncology [facility] [place] [address] (Wo rk) 02/11/2022 TH Visit (TeleHealth) Hematology Ángel Kimbrough Oncology [facility] ONCOLOGY [place], [place] [address] (Wo rk) 02/11/2022 Infusion Hematology and Oncology 02/11/2022 Office Visit Hematology and Jazzy Armendariz R D Oncology [facility] HEMATOLOGY AND ONCOLOGY [place], [place] [address] (Wo rk) 02/22/2022 TH Visit (TeleHealth) Hematology and Yaquelin Celis Oncology [facility] HEMATOLOGY AND ONCOLOGY [place], [place] [address] (Wo rk) 02/25/2022 Office Visit Hematology Ángel Kimbrough Oncology [facility] ONCOLOGY [place], [place] [address] (Wo rk) 02/25/2022 Infusion Hematology and Oncology 03/10/2022 Scheduled View Only Obstetrics and Nurse, Julian COLEMAN, crate liner 03/10/2022 Office Visit Obstetrics and Shazia Whitley Gynecology [facility] UROGYNECOLOGY [place], [place] [address] (Wo rk) 03/11/2022 Office Visit Hematology Ángel Kimbrough MD [facility] [place] [address] Oncology Alyssa Joseph, [address] [place] [address] 03/11/2022 Infusion Hematology and Oncology 03/25/2022 Office Visit Hematology and Alyssa Joseph, Oncology [address] MEDICAL ONCOLOGY [place], [place] [id number] (Wo rk) 03/25/2022 Infusion Hematology and Oncology 03/31/2022 Office Visit Hematology and Alan Livingston M D [facility] DR HEMATOLOGY/[place] [address] Oncology Nilam So, SERVICE UNIT OPERATOR [facility] DR HEMATOLOGY/[place] [address] 04/08/2022 Office Visit Hematology and Ángel Fischer MD [facility] [place] [place] [address] Oncology Alyssa Joseph, [address] MEDICAL ONCOLOGY [place], [place] [id number] 04/08/2022 Infusion Hematology and Oncology documented as of this encounter Procedures Procedure Name Priority Date/Time Associated Comments Diagnosis OCT RETINA - OU - Routine 06/20/2016 2:43 PM Macular pucker, R esults for this BOTH EYES EST bilateral procedure are i n the results section. VITRECTOMY, W/ Routine 06/10/2016 3:17 PM Macular pucker, MEMBRANE STRIPPING, EST bilateral INTRAOCULAR TAMPONADE documented in this encounter Results OCT [id number] EYES (06/20/2016 2:43 PM EST) Anatomical Region Laterality Modality Other Specimen (Source) Anatomical Location Collection Method / Collectio n Time Received Time / Laterality Volume Narrative 06/20/2016 2:43 PM EST This imaging studies indicated for both eyes by virtue of bilateral macular pucker. Definite full-thickness hole with pucker right eye. Left eye with epiretinal membrane Pavan Coffey MD OPHTHALMOLOGY SERVICES ORDER MELYSSA documented in this encounter Visit Diagnoses Diagnosis Macular pucker, bilateral - Primary Macular puckering of retina documented in this encounter Care Teams Thread Spooler Relationship Specialty Start Date End Date Berkley Madrigal MD PCP - General 04/13/10 02/15/18 AYLEEN Bray [address] [place] [address] documented as of this encounter
--- OUTSIDE RECORDS SUMMARY | 2022-02-11 01:11 | XMS_ITS | Encounter Summary ---
:1950 Author Organization [facility] Address [facility] [place] [address] Care Team Providers Name Role Phone Berkley Madrigal MD Primary Care Provider Encounter Details Date Type Department Care Team Description 07/20/2016 Ophth Exam Ophthalmology at [facility] C Pavan Coffey, [facility] [place] [address] [facility] [phone] OPHTHALMOLOGY DE PT. [place], [place] [address] (Wo rk) Social History [...] Fischer Oncology [facility] ONCOLOGY [place], [place] [address] (Shana hewitt) 02/11/2022 TH Visit (TeleHealth) Hematology Ángel Kimbrough Oncology [facility] ONCOLOGY [place], [place] [address] (Shana rk) 02/11/2022 Infusion Hematology and Oncology 02/11/2022 Office Visit Hematology and Jazzy Armendariz R D Oncology [facility]AR HEMATOLOGY AND ONCOLOGY [place], [place] [address] (Shana hewitt) 02/22/2022 TH Visit (TeleHealth) Hematology and Yaquelin Celis Oncology E, [facility] [place] HEMATOLOGY AND ONCOLOGY [place], [place] [address] (Wo rk) 02/25/2022 Office Visit Hematology and Ángel Fischer Oncology [facility] ONCOLOGY [place], [place] [address] (Wo rk) 02/25/2022 Infusion Hematology and Oncology 03/10/2022 Scheduled View Only Obstetrics and Nurse, Julian COLEMAN, medical claims analyst 03/10/2022 Office Visit Obstetrics and Gutierrez, Shazia Baer, Gynecology [facility] UROGYNECOLOGY [place], [place] [address] (Wo rk) 03/11/2022 Office Visit Hematology and Ángel Fischer MD [facility] [place] [address] Oncology Alyssa Joseph [address] MEDICAL ONCOLOGY [place], [place] [address] 03/11/2022 Infusion Hematology and Oncology 03/25/2022 Office Visit Hematology and Alyssa Joseph Oncology [address] MEDICAL ONCOLOGY [place], [place] [address] (Wo rk) 03/25/2022 Infusion Hematology and Oncology 03/31/2022 Office Visit Hematology and Alan Livingston M D [facility] DR HEMATOLOGY/[place] [address] Oncology Nilam So [facility] HEMATOLOGY/[place] [address] 04/08/2022 Office Visit Hematology and Ángel Fischer MD [facility] [place] [address] Oncology Alyssa Joseph, [address] [place] [address] 04/08/2022 Infusion Hematology and Oncology documented as of this encounter Visit Diagnoses Not on filedocumented in this encounter Care Teams Reimbursement Liaison Relationship Specialty Start Date End Date Berkley Madrigal MD PCP - General 04/13/10 02/15/18 AYLEEN Bray [address] [place], [place] [id number] documented as of this encounter
--- OUTSIDE RECORDS SUMMARY | 2022-02-11 01:11 | XMS_ITS | Encounter Summary ---
:1950 Author Organization [facility] [place] [address] Care Team Providers Name Role Phone Berkley Madrigal MD Primary Care Provider Reason for Visit Auth/Cert Specialty Diagnoses / Procedures Referred By Contact Refer red To Contact Diagnoses CLL (chronic lymphocytic leukemia) Pulmonary embolism Referral ID Status Reason Start Date Expiration Date Visits Requ ested Visits Authorized [id number] 1 1 Encounter Details Date Type Department Care Team Description 07/11/2016 Hospital Encounter Same Day Program Claude Coffey, at [facility] Merrick Valle MD [facility] [address] OPHTHALMOLOGY DEPT. [place], [place] [id number] [phone] Social History Tobacco Use Types Packs/Day Years [...] place to sleep or slept in a group home (including now)? Sex Assigned at Date Recorded Female 12/24/2020 12:51 PM EDT documented as of this encounter Last Filed Vital Signs Vital Sign Reading Time Taken Comments Blood Pressure 133/65 07/11/2016 11:30 AM EST Pulse 92 07/11/2016 7:50 AM EST Temperature 36.7 ??C (98.1 ??F) 07/11/2016 10:32 AM EST Respiratory Rate 18 07/11/2016 11:30 AM EST Oxygen Saturation 95% 07/11/2016 11:47 AM EST Inhaled Oxygen Concentration - - [...] have additional concerns or questions please call [phone] and ask for your surgeon or the doctor personnel clerks supervisor. Patient InstructionsMerrick Coffey MD - 07/11/2016 10:35 [...] ice packs Call the Eye Clinic at [phone] and ask for the doctor personnel clerks supervisor if you having severe pain, nauseaor vomiting [...] stretcher. Monitors placed, alarms set and audible. 103 - Discharge instructions reviewed with patient and daughter, all questions answered. documented in this encounter H&P Notes Merrick Coffey MD - 07/11/2016 8:37 AM EST No interval exam,ROS or medication changes CBC MD documented in this encounter Miscellaneous Notes Op Note - Merrick Coffey MD - 07/11/2016 10:38 AM EST [facility] Operative Note Patient Name: Carol Keller : [id number] MR#: [id number] Case Date: 07/11/2016 Surgeon: Surgeon(s) and Role: [...] but they should call the eye physician personnel clerks supervisor in the overnight period with any severe nausea, vomiting, or any other related concerns. Attestation: Case Date: 07/11/2016 I performed this procedure without the involvement of a resident. MERRICK COFFEY MD 07/11/2016 Brief Op Note - Merrick Coffey MD - 07/11/2016 10:36 AM EST Brief Operative Note Patient Name: Carol Keller : [id number] MR#: [id number] Case Date: 07/11/2016 Surgeon: Surgeon(s) and Role: [...] Scheduled View Only Hematology Ángel Kimbrough Oncology [facility] [address] [place], [place] [address] (Shana hewitt) 02/11/2022 TH Visit (TeleHealth) Hematology Ángel Kimbrough Oncology [facility] [address] [place] [address] (Shana hewitt) 02/11/2022 Infusion Hematology and Oncology 02/11/2022 Office Visit Hematology and Jazzy Armendariz [facility] [place], [place] [address] (Wo rk) 02/22/2022 TH Visit (TeleHealth) Hematology and Yaquelin Celis E, [facility] HEMATOLOGY AND ONCOLOGY [place], [place] [address] (Wo rk) 02/25/2022 Office Visit Hematology and Ángel Fischer, Oncology [facility] ONCOLOGY [place], [place] [address] (Wo rk) 02/25/2022 Infusion Hematology and Oncology 03/10/2022 Scheduled View Only Obstetrics and Nurse, Julian COLMEAN, harness rigger 03/10/2022 Office Visit Obstetrics and Shazia Whitley, Gynecology [facility] UROGYNECOLOGY [place], [place] [address] (Wo rk) 03/11/2022 Office Visit Hematology and Ángel Fischer MD [facility] [place] [address] Oncology Alyssa Joseph, [address] MEDICAL ONCOLOGY [place], [place] [id number] 03/11/2022 Infusion Hematology and Oncology 03/25/2022 Office Visit Hematology and Alyssa Joseph, Oncology [address] MEDICAL ONCOLOGY [place], [place] [phone] (Wo rk) 03/25/2022 Infusion Hematology and Oncology 03/31/2022 Office Visit Hematology and Alan Livingston M D [facility] HEMATOLOGY/[place] [address] Oncology Nilam So, CREATIVE DEVELOPER [facility] DR HEMATOLOGY/[place] [address] 04/08/2022 Office Visit Hematology and Ángel Fischer MD [facility] [place] [address] Oncology Alyssa Joseph, CREATIVE DEVELOPER[address] [place] [address] 04/08/2022 Infusion Hematology and Oncology documented as [...] Given 07/11/2016 8:09 AM EST 1 drop fentaNYL (PF) 50 mcg/mL 2mL syringe 25 [...] 250 mcg over one hour., PACU Recovery moxifloxacin (VIGAMOX) 0.5 % ophthalmic Given 07/11/2016 8:22 AM EST 1 drop solution 1 drop 1 drop, Right Eye, EVERY 5 MIN, 3 doses, First dose on Mon07/11/16 at 0815, Last dose on Mon07/11/16 at 0825, Day of Surgery (Day of Procedure), Routine Given 07/11/2016 8:15 AM EST 1 drop Given 07/11/2016 8:09 AM EST 1 drop PHENYLephrine (MYDFRIN) 2.5 % ophthalmic Given 07/11/2016 8:22 A M EST 1 drop solution 1 drop 1 drop, Right Eye, EVERY 5 MIN, 3 doses, First dose on Mon07/11/16 at 0815, Last dose on Mon07/11/16 at 0825, Day of Surgery (Day of Procedure), Routine Given 07/11/2016 8:15 AM EST 1 drop Given 07/11/2016 8:09 AM EST 1 drop prednisoLONE acetate (PRED FORTE) 1 [...] scopolamine 1.5 mg patch., Recovery (Recovery-Hospital Unit) documented in this encounter Active and Recently Administered Medications Times are shown in EST. Scheduled Medication Order 07/09/2016 07/10/2016 07/11/2016 atropine 1 % ophthalmic solution 1 drop (COMPLETED) 08 (Given - Provider: Helen Contreras RN)08 (Given - Provider: Arron Maria RN)08 (Given - Provider: Arron Maria RN) 1 drop, Right Eye, EVERY 5 MIN, 3 doses, First dose on Mon07/11/16 at 0815, Last dose on Mon07/11/16 at 0825, Day of Surgery (Day of Procedure), Routine moxifloxacin (VIGAMOX) 0.5 % ophthalmic solution 1 drop (COMPLET ED) 08 (Given - Provider: Helen Contreras RN)08 (Given - Provider: Arron Maria RN)08 (Given - Provider: Arron Maria RN) 1 drop, Right Eye, EVERY 5 MIN, 3 doses, First dose on Mon07/11/16 at 0815, Last dose on Mon07/11/16 at 0825, Day of Surgery (Day of Procedure), Routine PHENYLephrine (MYDFRIN) 2.5 % ophthalmic solution 1 drop (COMPLE QUINN) 08 (Given - Provider: Arron Maria RN)0815 (Given - Provider: Arron Maria RN)08 (Given [...] Routine scopolamine (TRANSDERM-SCOP) 1.5 mg patch Patch Removal(Ericka G roup 1) Transdermal, EVERY 24 HOURS, [...] Coffey MD) ONCE PRN, Starting 07/11/16 at 0937, Until 07/11/16 at 1355, Intra- Operative (Intra-Procedure), Routine ceFAZolin (ANCEF) injection (CANCELED) 1021 (Given - Provider: Merrick Coffey MD - Comment: sc post op) ONCE PRN, Starting 07/11/16 at 0938, Until 07/11/16 at 1355, Intra- Operative (Intra-Procedure), Routine dexamethasone [...] Operative (Intra-Procedure), Routine EPINEPHrine injection solution (CANCELED) 0938 (Given - Provider: Merrick Coffey MD - [...] Coffey MD) ONCE PRN, Starting Mon07/11/16 at 0939, Until 07/11/16 at 1355, Intra- Operative (Intra-Procedure), Routine vcvfergk-kxnusbsrv-osagtvrcxlaik (DEXACI NE) 3.5 mg/g-10,000 unit/g-0.1 % ophthalmic ointment (CANCELED) 1022 (Giv en - Provider: Merrick Coffey MD - Comment: 0.25 ml post op) ONCE PRN, Starting Mon07/11/16 at 0939, Until Mon07/11/16 at 1355, Intra- Operative (Intra-Procedure), Routine ondansetron [...] ONCE PRN, Starting 07/11/16 at 0939, Until Mon07/11/16 at 1355, Intra- Operative (Intra-Procedure), Routine promethazine (PHENERGAN) injection 12.5 mg 12.5 mg, Intravenous, EVERY 30 MIN PRN, 2 doses, Starting 07/11/16 at 1035, Until Mon07/11/16 at 1355, Nausea, VESICANT - Dilute with [...] PRN, St arting 07/11/16 at 1035, Until Mon07/11/16 at 1355, Pain, for 5-10 pain score
for 5-10 pain score Hold for respiratory rate less than 10 per minute. Maximum dose: 250 mcg over one hour.
PACU Recovery, Routine documented in this encounter Care Teams Legal Services Manager Relationship Specialty Start Date End Date Berkley Madrigal MD PCP - General 04/13/10 02/15/18 AYLEEN Katarina [address] [place] [address] documented as of this encounter
--- OUTSIDE RECORDS SUMMARY | 2022-02-11 01:11 | XMS_ITS | Encounter Summary ---
:1950 Author Organization [facility] [place] [address] Care Team Providers Name Role Phone Berkley Madrigal MD Primary Care Provider Encounter Details Date Type Department Care Team Description 06/06/2016 Office Visit Hematology and Alan Livingston M D [facility] DR HEMATOLOGY/[place] [address] CLL (chronic Oncology at [facility] Nilam So APRN [facility] DR HEMATOLOGY/[place] [address] lymphocytic leukemia) [facility] Rachle Simpson [facility] HEMATOLOGY/[place] [address] [place] [id number] Social History Tobacco Use Types Packs/Day Years [...] Sign Reading Time Taken Comments Blood Pressure 133/61 06/06/2016 3:35 PM EST Pulse 74 06/06/2016 3:35 PM EST Temperature 36.4 ??C (97.5 ??F) 06/06/2016 3:35 PM EST Respiratory Rate 17 06/06/2016 3:35 PM EST Oxygen Saturation 96% 06/06/2016 3:35 PM EST Inhaled Oxygen Concentration - - Weight 79 kg (174 lb 3.2 oz) 06/06/2016 3:35 PM EST Height 164 cm (5' 4.57) 06/06/2016 3:35 PM EST Body Mass Index 29.38 06/06/2016 3:35 PM EST documented in this encounter Progress Notes Rachel Simpson, - 06/06/2016 3:45 PM EST Subjective: Patient ID: Carol Keller [...] Pneumovax 2014 HPI Carol is doing well. We last saw her in January. 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 She reports a respiratory infection over . She took Azithromycin and it was relatively uncomplicated. No other infections since that time, no F/C or night sweats. She may need cystocele surgery repair in the near future. 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 Coffey. Review of Systems Constitutional: Negative for activity [...] (non-fasting) Result Value Ref Range Glucose Lvl 92 65 - 199 mg/dL BUN 18 8 - 18 mg/dL Creatinine 0.97 0.70 - 1.20 mg/dL Sodium 144 135 - 145 mmol/L Potassium See Note 3.5 - 5.0 mmol/L Chloride 104 98 - 107 mmol/L CO2 27 22 - 31 mmol/L Anion Gap 13 5 - 15 mmol/L Calcium 9.0 8.5 - 10.5 mg/dL Total Protein 6.4 6.1 - 8.0 gm/dL Albumin 4.3 3.2 - 5.2 gm/dL AST 25 0 - 30 unit/L ALT 17 0 - 30 unit/L Alk Phos 68 40 - 104 unit/L Total Bilirubin <0.2 (L) 0.2 - 1.3 mg/dL Bili, Direct <0.1 0.0 - 0.3 mg/dL Estimated GFR 57 (L) >=60 Lactate Dehydrogenase Result Value Ref Range LDH 210 110 - 220 unit/L Hemogram Result Value Ref Range WBC 158.7 (CRIT) 4.0 - 9.5 x10(3)/mcL RBC 4.52 4.00 - 5.21 x10(6)/mcL Hemoglobin 12.9 11.7 - 15.5 gm/dL Hematocrit 42.0 35.7 - 45.8 % MCV 92.9 82.6 - 94.4 fL MCH 28.5 27.1 - 32.0 pg MCHC 30.7 (L) 31.7 - 35.0 gm/dL Platelets 179 145 - 357 x10(3)/mcL RDWSD 46.5 (H) 37.0 - 46.0 fL RDWCV 14.0 11.5 - 14.1 % MPV 10.5 7.6 - 12.9 fL nRBC % Auto 0.0 % nRBC Abs Auto 0.000 0.000 - 0.000 x10(3)/mcL Differential, Automated Result Value Ref Range Neutrophils % 3.3 % Neutr Abs (ANC) 5.50 1.70 - 6.10 x10(3)/mcL Lymphocytes % 95.5 % Lymphocytes Abs 151.6 (H) 0.9 - 3.2 x10(3)/mcL Monocytes % 0.7 % Monocyte Abs 1.0 (H) 0.3 - 0.9 x10(3)/mcL Eosinophils % 0.2 % Eosinophils Abs 0.3 0.0 - 0.4 x10(3)/mcL Basophils % 0.1 % Basophils Abs 0.1 0.0 - 0.1 x10(3)/mcL Immature Gran % 0.20 % Claudia Gran Abs 0.24 (H) 0.00 - 0.04 x10(3)/mcL Scan, Peripheral Blood Result Value Ref Range Plat Estimate Normal RBC Morphology Normal Smudge Cells Present BP 133/61 (Patient Position: Sitting) Pulse 74 Temp 36.4 ??C (97.5 ??F) (Temporal) Resp 17 Ht 164 cm(5' 4.57) Wt 79 kg (174 lb 3.2 oz) SpO2 96% BMI 29.38 kg/m2 Assessment and Plan: 1. Assessment: CLL. Although WBC and ALC are elevated, counts and doubling time have remained stable. No worrisome or symptomatic adenopathy, organomegaly, B symptoms, recurrent infections, signs of AIHA or ITP. No concern for transformation. No indication for treatment at this time. - Will check immunoglobulins next visit but reassuring she only had one brief infection Influenza = UTD this Fall Pneumococcal - UTD Plan: We will continue to monitor in hematology clinic. Reviewed CLL and indications for treatment. Carol will return to hematology in 4 months. she will call if there are any problems before then. Rachel Simpson DO Hematology-Oncology Fellow Pager [phone] 06/06/2016 4:08 PM Alan Livingston MD - 06/06/2016 3:45 PM EST I saw this patient with Dr Simpson. I agree with the details of History and Physical Exam as documented in the above note. I was present for the critical portions of the history, exam and discussion of our recommendations. Please see above note for full details. documented in this encounter Plan of Treatment Upcoming Encounters Date Type Specialty Care Team Description 02/11/2022 Scheduled View Only Hematology Ángel Kimbrough Oncology [facility] ONCOLOGY [place], [place] [address] (Wo rk) 02/11/2022 TH Visit (TeleHealth) Hematology Ángel Kimbrough Oncology [facility] ONCOLOGY [place], [place] [address] (Wo rk) 02/11/2022 Infusion Hematology and Oncology 02/11/2022 Office Visit Hematology and Jazzy Armendariz R [facility] [place], [place] [address] (Wo rk) 02/22/2022 TH Visit (TeleHealth) Hematology and Yaquelin Celis Oncology E, [facility] HEMATOLOGY AND ONCOLOGY [place], [place] [address] (Wo rk) 02/25/2022 Office Visit Hematology Ángel Kimbrough Oncology [facility] DR UMANA [place], [place] [address] (Wo rk) 02/25/2022 Infusion Hematology and Oncology 03/10/2022 Scheduled View Only Obstetrics and Nurse, Obgyn II, business risk analyst 03/10/2022 Office Visit Obstetrics and Shazia Whitley Gynecology DIVISION SUPERVISOR [facility] UROGYNECOLOGY [place], [place] [address] (Wo rk) 03/11/2022 Office Visit Ángel Hill MD [facility] [place] [place] [address] Oncology Alyssa Joseph[address] MEDICAL ONCOLOGY [place], [place] [id number] 03/11/2022 Infusion Hematology and Oncology 03/25/2022 Office Visit Hematology and Alyssa Joseph, Oncology [address] MEDICAL ONCOLOGY [place], [place] [phone] (Wo rk) 03/25/2022 Infusion Hematology and Oncology 03/31/2022 Office Visit Hematology and Alan Livingston M D [facility] DR HEMATOLOGY/[place] [address] [facility]cology [facility] [address] 04/08/2022 Office Visit Hematology and Ángel Fischer MD [facility] [place] [address] Oncology Alyssa Joseph[address] MEDICAL ONCOLOGY [place], [place] [phone] 04/08/2022 Infusion Hematology and Oncology documented as of this encounter Results (ABNORMAL) Immunoglobulins, Quantitative (09/26/2016 2:50 PM EDT) P athologist Signature IgG 478 (L) 700 - 1,600 [facility] mg/dL [facility] IgA 65 (L) 70 - 400 [facility] mg/dL [facility] IgM 27 (L) 40 - 230 [facility] mg/dL [facility] Specimen Anatomical Collection Method Collection Time Receive d Time (Source) Location / / Volume Laterality Blood specimen 09/26/2016 2:50 PM 017 3:11 (specimen) EDT PM EDT Resulting Agency Comment Spec In Lab Alan Livingston MD CHEMISTRY ORDERABLES Performing Organization Address City/State/[place] [address] [facility] [address] Lactate Dehydrogenase (09/26/2016 2:50 PM EDT) athologist Signature LDH 204 110 - 220 [facility] unit/L [facility] Specimen Anatomical Collection Method Collection Time Receive d Time (Source) Location / / Volume Laterality Blood specimen 09/26/2016 2:50 PM 017 3:11 (specimen) EDT PM EDT Resulting Agency Comment Spec In Lab Alan Livingston MD CHEMISTRY ORDERABLES Performing Organization Address City/State/ZIP Code Phon e Number [address] (ABNORMAL) Comprehensive metabolic panel (non-fasting) (09/26/2016 2:50 PM EDT) athologist Signature Glucose Lvl 124 65 - 199 [facility] mg/dL [facility] Comment: Diabetes: >=200 mg/dL plus symp toms BUN 16 8 - 18 mg/dL [facility] Creatinine 0.90 0.70 - 1.20 mg/dL [facility] Comment: Please note that the pediatric reference intervals supplied above were not validated at [facility]. Results from pediatri c patients should be interpreted in conjunction to the patient's age, height and muscle mass. Sodium 143 135 - 145 mmol/L [facility] Potassium 4.2 3.5 - 5.0 mmol/L [facility] Comment: Please note: ??Patients with WBC >100,00 0 may have falsely elevated Potassium levels. ??For accurate Potassium quantif ication in these patients send serum separator tube (gold top) for subsequent determinations. ??Contact the Clinical Chemistry Laboratory if there are any qu estions. Chloride 100 98 - 107 mmol/L [facility] CO2 29 22 - 31 mmol/L [facility] Anion Gap 14 5 - 15 mmol/L [facility] Calcium 9.3 8.5 - 10.5 mg/dL [facility] Total Protein 6.6 6.1 - 8.0 gm/dL [facility] Albumin 4.4 3.2 - 5.2 gm/dL [facility] AST 19 0 - 30 unit/L [facility] ALT 22 0 - 30 unit/L [facility] Alk Phos 67 40 - 104 unit/L [facility] Total Bilirubin <0.2 (L) 0.2 - 1.3 mg/dL [facility] Bili, Direct <0.1 0.0 - 0.3 mg/dL [facility] Estimated GFR >60 >=60 [facility] Comment: This estimated GFR (eGFR) [...] the following links into your internet browser. [email or web address] [email or web address] Specimen Anatomical Collection Method Collection Time Receive d Time (Source) Location / / Volume Laterality Blood specimen 09/26/2016 2:50 PM 017 3:11 (specimen) EDT PM EDT Resulting Agency Comment Spec In Lab Alan Livingston MD CHEMISTRY ORDERABLES Performing Organization Address City/State/[place] [address] documented in this encounter Visit Diagnoses Diagnosis CLL (chronic lymphocytic leukemia) Chronic lymphoid leukemia, without menti on of having achieved remission documented in this encounter Care Teams Infusion Therapy Nurse Relationship Specialty Start Date End Date Berkley Madrigal MD PCP - General 04/13/10 02/15/18 AYLEEN D [address] [place] [address] documented as of this encounter
--- OUTSIDE RECORDS SUMMARY | 2022-02-11 01:11 | XMS_ITS | Encounter Summary ---
:1950 Author Organization [facility] [place] [address] Care Team Providers Name Role Phone Berkley Madrigal MD Primary Care Provider Encounter Details Date Type Department Care Team Description 12/21/2015 Laboratory Lab 3L [facility] type Appointment [address] [id number], [place] [phone] Social History Tobacco Use Types Packs/Day Years [...] Scheduled View Only Hematology Ángel Kimbrough Oncology [facility] ONCOLOGY [place], [place] [address] (Wo rk) 02/11/2022 TH Visit (TeleHealth) Hematology Ángel Kimbrough Oncology [facility] ONCOLOGY [place], [place] [address] (Wo rk) 02/11/2022 Infusion Hematology and Oncology 02/11/2022 Office Visit Hematology and Jazzy Armendariz R D Oncology [facility] CESAR HEMATOLOGY AND ONCOLOGY [place], [place] 0[address] (Wo rk) 02/22/2022 TH Visit (TeleHealth) Hematology and Yaquelin Celis Oncology E, [facility] HEMATOLOGY AND ONCOLOGY [place], [place] 0[address] (Wo rk) 02/25/2022 Office Visit Ángel Hill Oncology [facility] ONCOLOGY [place], [place] 0375 (Wo rk) 02/25/2022 Infusion Hematology and Oncology 03/10/2022 Scheduled View Only Obstetrics and Nurse, Julian II, bilingual elementary school teacher 03/10/2022 Office Visit Obstetrics and Shazia Whitley, Gynecology [facility] UROGYNECOLOGY [place], [place] 0[address] (Wo rk) 03/11/2022 Office Visit Hematology and Ángel Fischer MD [facility] [place] [place] [address] Oncology Alyssa Joseph, [address] MEDICAL ONCOLOGY [place], [place] [phone] 03/11/2022 Infusion Hematology and Oncology 03/25/2022 Office Visit Hematology and Alyssa Joseph, Oncology [address] MEDICAL ONCOLOGY [place], [place] [id number] (Wo rk) 03/25/2022 Infusion Hematology and Oncology 03/31/2022 Office Visit Hematology and Alan Livingston M D [facility] DR HEMATOLOGY/[place] [address] [facility]cology [facility] [address] 04/08/2022 Office Visit Hematology and Ángel Fischer MD [facility] [place] [place] [address] Oncology Alyssa Joseph[address] MEDICAL ONCOLOGY [place], [place] [phone] 04/08/2022 Infusion Hematology and Oncology documented as of this encounter Procedures Procedure Name Priority Date/Time Associated Diagnosis Comme nts U ALBUMIN/CRE RATIO Routine 12/21/2015 3:32 PM Diabetes mellit us type Results for this EDT 2, uncomplicated procedure a re in the results section. TSH Routine 12/21/2015 3:27 PM Diabetes mellitus type Results for this EDT 2, uncomplicated procedure a re in the results section. LDL CHOLESTEROL, Routine 12/21/2015 3:27 PM Diabetes mellitus type Results for this DIRECT EDT 2, uncomplicated procedure a re in the results section. HDL/CHOL PROFILE Routine 12/21/2015 3:27 PM Diabetes mellitus type Results for this EDT 2, uncomplicated procedure a re in the results section. HEMOGLOBIN A1C Routine 12/21/2015 3:27 PM Diabetes mellitus ty pe Results for this EDT 2, uncomplicated procedure a re in the results section. documented in this encounter Results U Albumin/Cre Ratio (12/21/2015 3:32 PM EDT) athologist Signature Alb/Cr Ratio, <9 0 - 29 [facility] Random mcg/mg Cr [facility] Comment: Reference Ranges: <30 mcg/mg: [...] 362 U Albumin Conc, Random <3.0 mg/L [facility] Comment: Result rechecked. U Creatinine 35 mg/dL [facility] Specimen Anatomical Collection Method Collection Time Receive d Time (Source) Location / / Volume Laterality Urine specimen 12/21/2015 3:32 PM 016 3:54 (specimen) EDT PM EDT Resulting Agency Comment Spec In Lab Pasquale Rich MD URINE ORDERABLES Performing Organization Address City/State/[place] [address] TSH (12/21/2015 3:27 PM EDT) P athologist Signature TSH 2.68 0.27 - 4.20 MADIHA BOBO mcIU/mL [facility] Specimen Anatomical Collection Method Collection Time Receive d Time (Source) Location / / Volume Laterality Blood specimen 12/21/2015 3:27 PM 016 3:37 (specimen) EDT PM EDT Resulting Agency Comment Spec In Lab Pasquale Rich MD CHEMISTRY ORDERABLES Performing Organization Address City/[facility] Code Phon e Number [address] (ABNORMAL) LDL Cholesterol, Direct (12/21/2015 3:27 PM EDT) athologist Signature LDL Chol 143 (H) <=99 mg/dL [facility] Comment: The National Cholesterol Education Progr am (NCEP) has set the following guidelines for LDL Cholesterol: Reference range: ?? Optimal: ?<100 mg/dL ?? Near Optimal/Above Optimal: ?? 100-1 29 mg/dL ?? Borderline high: ?130-159 mg/dL ?? High: ? 160-189 mg/dL ?? Very high: ?>js=065 mg/dL ISI 2001: 285(19):6509-4515 Specimen Anatomical Collection Method Collection Time Receive d Time (Source) Location / / Volume Laterality Blood specimen 12/21/2015 3:27 PM 016 3:37 (specimen) EDT PM EDT Resulting Agency Comment Spec In Lab Pasquale Rich MD CHEMISTRY ORDERABLES Performing Organization Address City/[facility]/ZIP Code Phon e Number [address] (ABNORMAL) HDL/Cholesterol Profile (12/21/2015 3:27 PM EDT) athologist Signature Chol, Total 237 (H) <=199 [facility] mg/dL [facility] Comment: Recommendations of the NCEP Adult Treatm ent Panel for the following risk cutoff thresholds for the [place] populatio n: Desirable: <200 mg/dL Borderline High: 200-239 mg/dL High: > or = 240 mg/dL HDL 75 >=40 mg/dL [facility] Comment: Reference range: ??Low HDL: ?? < 40 mg/dL ??Normal: ?40-60 mg/dL ??Desirable: > 60 mg/dL ISI 2001; 285(19):7837-7499 Chol/HDL Ratio 3.2 ratio [facility] Comment: A Cholesterol to HDL ratio below 4:1 is desirable. ??Studies suggest that increased CAD risk occurs at ratios abov e 5 for females and above 6 for men. ? [place] [employer] Association ??(htt p://www.americanheart.org) ? Maria Teresa Int Med, 1994; 121:641 ? AM J Med, 1998; 105(1A):48S Specimen Anatomical Collection Method Collection Time Receive d Time (Source) Location / / Volume Laterality Blood specimen 12/21/2015 3:27 PM 016 3:37 (specimen) EDT PM EDT Resulting Agency Comment Spec In Lab Pasquale Rich MD CHEMISTRY ORDERABLES Performing Organization Address City/State/[place] [address] (ABNORMAL) Hemoglobin A1c (12/21/2015 3:27 PM EDT) Analysis Performed At Patho logist Time Signature Hemoglobin A1C 6.2 (H) 4.3 - 5.6 [facility] Comment: Reference Range: 4.3 - 5.6% [...] Mellitus, Diabetes Care 2013; 36: Suppl. 1, S60-09 Est Avg Gluc 131 mg/dL [facility] Comment: eAG equivalents for HbA1c percentages: HbA1c(%) ?eAG(mg/dL) 6.0 ?126 6.5 ?140 7.0 ?154 7.5 ?169 8.0 ?183 8.5 ?197 9.0 ?212 9.5 ?226 10.0 ? 240 Limitations: The eAG calculation has not been validated on women, individuals below 18 years old and above 70 years old, and individuals with hemoglobinopathies. Additional resources are available on [facility] website: http://ShrinkTheWeb.[employer]DHMCadacalc Lázaro MIX, Lolis J, Reece R, et al. ??Tr anslating the A1C assay into estimated average glucose values. ??Diabetes Care 2008:31(8):4659-6667. Specimen Anatomical Collection Method Collection Time Receive d Time (Source) Location / / Volume Laterality Blood specimen 12/21/2015 3:27 PM 016 3:37 (specimen) EDT PM EDT Resulting Agency Comment Spec In Lab Pasquale Rich MD CHEMISTRY ORDERABLES Performing Organization Address City/State/ZIP Code Phon e [place] [address] documented in this encounter Visit Diagnoses Diagnosis Diabetes mellitus type 2, uncomplicated Type II or unspecified type diabetes omer litus without mention of complication, not stated as uncontrolled documented in this encounter Care Teams Can Filling And Closing Machine Tender Relationship Specialty Start Date End Date Berkley Madrigal MD PCP - General 04/13/10 02/15/18 AYLEEN D [address] [place] [address] documented as of this encounter
--- OUTSIDE RECORDS SUMMARY | 2022-02-11 01:11 | XMS_ITS | Encounter Summary ---
:1950 Author Organization [facility] Address [facility] [place] [address] Care Team Providers Name Role Phone Berkley Madrigal MD Primary Care Provider Encounter Details Date Type Department Care Team Description 01/13/[address] [facility] Pavan Mancera, [facility] [place] [phone] [facility] [phone] OPHTHALMOLOGY DE PT. [place], [place] [address] (Wo rk) Social History Tobacco [...] Oncology [facility] ONCOLOGY [place], [place] [address] (Wo rk) 02/11/2022 TH Visit (TeleHealth) Hematology Ángel Kimbrough Oncology [facility] DR UMANA [place], [place] [address] (Wo rk) 02/11/2022 Infusion Hematology and Oncology 02/11/2022 Office Visit Hematology and Jazzy Armendariz R D Oncology [facility] CESAR HEMATOLOGY AND ONCOLOGY [place], [place] [address] (Wo rk) 02/22/2022 TH Visit (TeleHealth) Hematology and Yaquelin Celis Oncology E, [facility] HEMATOLOGY AND LYNDSAY [place], [place] 0[address] (Wo rk) 02/25/2022 Office Visit Hematology Ángel Kimbrough Oncology [facility] DR UMANA [place], [place] [address] (Wo rk) 02/25/2022 Infusion Hematology and Oncology 03/10/2022 Scheduled View Only Obstetrics and Nurse, Julian COLEMAN, dog pound attendant 03/10/2022 Office Visit Obstetrics and Shazia Whitley, Gynecology [facility] UROGYNECOLOGY [place], [place] [address] (Wo rk) 03/11/2022 Office Visit Hematology and Ángel iFscher MD [facility] [place] [address] Oncology Alyssa Joseph[address] MEDICAL ONCOLOGY [place], [place] [phone] 03/11/2022 Infusion Hematology and Oncology 03/25/2022 Office Visit Hematology and Alyssa Joseph, Oncology [address] MEDICAL ONCOLOGY [place], [place] [phone] (Wo rk) 03/25/2022 Infusion Hematology and Oncology 03/31/2022 Office Visit Hematology and Alan Livingston M D [facility] DR HEMATOLOGY/[place] [address] [facility]cology [facility] [address] 04/08/2022 Office Visit Hematology and Ángel Fischer MD [facility] [place] [address] Oncology Alyssa Joseph[address] MEDICAL ONCOLOGY [place], [place] [phone] 04/08/2022 Infusion Hematology and Oncology documented as of this encounter Visit Diagnoses Not on filedocumented in this encounter Care Teams Machinery Mechanic Relationship Specialty Start Date End Date Berkley Madrigal MD PCP - General 04/13/10 02/15/18 AYLEEN Bray [address] [place] [address] documented as of this encounter
--- OUTSIDE RECORDS SUMMARY | 2022-02-11 01:12 | XMS_ITS | Encounter Summary ---
:1950 Author Organization [facility] [place] [address] Care Team Providers Name Role Phone Berkley Madrigal MD Primary Care Provider Encounter Details Date Type Department Care Team Description 11/24/2014 Hospital Encounter Hematology and CLINIC, DR BENJAMIN Alvarez pennie lymphocytic Oncology at [facility] Alan Livingston MD [facility] HEMATOLOGY/ONCOLOGY [place]PT. [address] [place] [phone] Social History Tobacco Use Types Packs/Day Years [...] 50 mcg (2,000 unit) mouth daily. Capsule PREMARIN 0.3 mg Tablet Take 1 tablet by 0 015 02/23/2015 mouth daily. ESTROGENS, CONJUGATED Take by mouth. 0 07/08/2016 (PREMARIN ORAL) imipramine (TOFRANIL) 10 Take 10 mg by mouth 0 11/04/2019 mg tablet every morning. Glucosamine Sulfate 500 0 05/24/2010 0 09/02/2016 mg Tab documented as of this encounter Plan of Treatment Upcoming Encounters Date Type Specialty Care Team Description 02/11/2022 Scheduled View Only Hematology and Ángel Fischer, Oncology [facility] [place] [address] (Shana hewitt) 02/11/2022 TH Visit (TeleHealth) Hematology Ángel Kimbrough Oncology [facility] [place]OGY [place], [place] [address] (Shana hewitt) 02/11/2022 Infusion Hematology and Oncology 02/11/2022 Office Visit Hematology and Jazzy Armendariz R D [facility] [address] HEMATOLOGY AND ONCOLOGY 0375 (Wo rk) 02/22/2022 TH Visit (TeleHealth) Hematology and Yaquelin Celis Oncology E, [facility] HEMATOLOGY AND ONCOLOGY 0375 (Wo rk) 02/25/2022 Office Visit Hematology and Ángel Fischer, Oncology [facility] ONCOLOGY 0375 (Wo rk) 02/25/2022 Infusion Hematology and Oncology 03/10/2022 Scheduled View Only Obstetrics and Nurse, Julian COLEMAN, continuous improvement facilitator 03/10/2022 Office Visit Obstetrics and Shazia Whitley, Gynecology [facility] UROGYNECOLOGY 0375 (Wo rk) 03/11/2022 Office Visit Hematology and Ángel Fischer MD [facility] ONCOLOGY [address] Oncology Alyssa Joseph, [address] MEDICAL ONCOLOGY [place], [place] [phone] 03/11/2022 Infusion Hematology and Oncology 03/25/2022 Office Visit Hematology and Alyssa Joseph, Oncology [address] MEDICAL ONCOLOGY [place], [place] [phone] (Wo rk) 03/25/2022 Infusion Hematology and Oncology 03/31/2022 Office Visit Hematology and Alan Livingston M D [facility] HEMATOLOGY/ONCOLOGY DEPT. [address] Oncology Nilam So, [facility] DR HEMATOLOGY/[place] [address] 04/08/2022 Office Visit Hematology and Ángel Fischer MD [facility] DR ONCOLOGY [address] Oncology Alyssa Joseph, [address] [address] 04/08/2022 Infusion Hematology and Oncology documented as of this encounter Procedures Procedure Name Priority Date/Time Associated Comments Diagnosis DIFFERENTIAL, MANUAL STAT 11/24/2014 12:04 Res ults for this PM EDT procedure are i n the results section. NUCLEATED RED BLOOD STAT 11/24/2014 12:04 Resu lts for this CELLS PM EDT procedure are i n the results section. HEMOGRAM STAT 11/24/2014 12:04 Chronic lymphocytic Resu lts for this PM EDT leukemia procedure are i n the results section. CBC (WITH DIFF) STAT 11/24/2014 12:04 Chronic lymphocytic PM EDT leukemia LACTATE DEHYDROGENASE STAT 11/24/2014 12:04 Chronic lymphoc ytic Results for this PM EDT leukemia procedure are i n the results section. COMPREHENSIVE STAT 11/24/2014 12:04 Chronic lymphocytic Res ults for this METABOLIC PANEL PM EDT leukemia procedure ar e in (NON-FASTING) the results section. documented in this encounter Results (ABNORMAL) Differential, Manual (11/24/2014 12:04 PM EDT) [facility] Method Time Signature Neutrophil % 3 % CERNER MILLENNIUM Lymphocyte % 96 % CERNER MILLENNIUM Eosinophil % 1 % CERNER MILLENNIUM Neutrophil Abs 3.6 1.5 - 6.3 CERNER x10(3)/mc MILLENNIUM L Neutr Abs (ANC) 3.62 1.50 - CERNER 6.30 MILLENNIUM x10(3)/mc L Lymphocyte Abs 116.0 (H) 1.0 - 3.6 CERNER x10(3)/mc MILLENNIUM L Eosinophil Abs 1.2 (H) 0.0 - 0.5 CERNER x10(3)/mc MILLENNIUM L Tot Diff Cell [address] MILLENNIUM Plat Estimate Normal CERNER MILLENNIUM RBC Morphology Normal CERNER MILLENNIUM Smudge Cells Present CERNER MILLENNIUM Specimen Anatomical Collection Method Collection Time Receive d Time (Source) Location / / Volume Laterality Blood specimen 11/24/2014 12:04 5 (specimen) PM EDT 12:08 PM EDT Resulting Agency Comment Spec In Lab Alan Livingston MD HEMATOLOGY ORDERABLES Performing Organization Address City/[facility]/ZIP Code Phon e Number [address] CERNER MILLENNIUM Nucleated Red Blood Cells (11/24/2014 12:04 PM EDT) P athologist Signature nRBC % Auto 0.0 % CERNER MILLENNIUM nRBC Abs Auto 0.000 0.000 - CERNER 0.012 MILLENNIUM x10(3)/mcL Specimen Anatomical Collection Method Collection Time Receive d Time (Source) Location / / Volume Laterality Blood specimen 11/24/2014 12:04 5 (specimen) PM EDT 12:08 PM EDT Resulting Agency Comment Spec In Lab Alan Livingston MD HEMATOLOGY ORDERABLES Performing Organization Address City/[facility] Phon e Number [address] CERNER MILLENNIUM (ABNORMAL) Hemogram (11/24/2014 12:04 PM EDT) P athologist Signature WBC 120.8 4.0 - 10.0 CERNER (Critical) x10(3)/mcL MILLENNIUM Comment: PLEASE NOTE: PATIENTS WITH WBC >100,000 MAY HAVE FALSELY ELEVATED POTASSIUM LEVELS. CONTACT THE [employer] CHEMISTRY LABORATORY IF THERE ARE ANY QUESTIONS. This result has been called to naresh celis by DONALD ERVIN on 11.24.14 at 12:36, and has been read lisa pratik (). RBC 4.38 3.93 - 5.22 x10(6)/mcL CERNER MILLENNIUM Hemoglobin 13.2 11.2 - 15.7 gm/dL CERNER MILL ENNIUM Hematocrit 41.6 34.0 - 45.0 % CERNER MILLENNI UM MCV 95.0 (H) 79.0 - 94.0 fL CERNER MILLENNI UM MCH 30.1 26.6 - 32.2 pg CERNER MILLENNI UM MCHC 31.7 (L) 32.0 - 36.5 gm/dL CERNER MILLE NNIUM Platelets 159 145 - 370 x10(3)/mcL CERNER IN LLENNIUM RDWSD 47.5 (H) 35.0 - 46.0 fL CERNER MILLENNI UM RDWCV 14.1 10.9 - 14.4 % CERNER MILLENNIU M MPV 11.6 9.0 - 12.0 fL CERNER MILLENNIU M Specimen Anatomical Collection Method Collection Time Receive d Time (Source) Location / / Volume Laterality Blood specimen 11/24/2014 12:04 5 (specimen) PM EDT 12:08 PM EDT Resulting Agency Comment Spec In Lab Alan Livingston MD HEMATOLOGY ORDERABLES Performing Organization Address City/[facility]/ZIP Code Phon e Number [address] CERNER MILLENNIUM (ABNORMAL) Lactate Dehydrogenase (11/24/2014 12:04 PM EDT) athologist Signature LDH 228 (H) 110 - 220 CERNER unit/L MILLENNIUM Specimen Anatomical Collection Method Collection Time Receive d Time (Source) Location / / Volume Laterality Blood specimen 11/24/2014 12:04 5 (specimen) PM EDT 12:08 PM EDT Resulting Agency Comment Spec In Lab Alan Livingston MD CHEMISTRY ORDERABLES Performing Organization Address City/State/ZIP [facility] Phon e Number [address] CERNER MILLENNIUM (ABNORMAL) Comprehensive metabolic panel (non-fasting) (11/24/2014 12:04 PM EDT) athologist Signature Glucose Lvl 81 65 - 199 CERNER mg/dL MILLENNIUM Comment: Diabetes: >=200 mg/dL plus symp toms BUN 15 8 - 18 mg/dL CERNER MILLENNIUM Creatinine 1.00 0.70 - 1.20 mg/dL CERNER MILL ENNIUM Comment: Please note that the pediatric reference intervals supplied above were not validated at [facility]. Results from pediatri c patients should be interpreted in conjunction to the patient's age, height and muscle mass. Sodium 143 135 - 145 mmol/L CERNER JAVI NIUM Potassium See Note 3.5 - 5.0 mmol/L CERNER JAVI NIUM Comment: Plasma Potassium result is 4.7 mmol/L, s uspect pseudohyperkalemia. ??Recheck Potassium result on serum sample. Called by: akilah, Read back by: Naresh Moss, Date/Time:11/24/14 13:06. Please note: ??Patients with WBC >100,00 0 may have falsely elevated Potassium levels. ??For accurate Potassium quantif ication in these patients send serum separator tube (gold top) for subsequent determinations. ??Contact the Clinical Chemistry Laboratory if there are any qu estions. Please note: ??Patients with WBC >100,00 0 may have falsely elevated Potassium levels. ??For accurate Potassium quantif ication in these patients send serum separator tube (gold top) for subsequent determinations. ??Contact the Clinical Chemistry Laboratory if there are any qu estions. Corrected from 4.7 mMol/L on 11/24/14 01 :07 by Yasmine Moss Chloride 103 98 - 107 mmol/L CERNER MILLENN IUM CO2 28 22 - 31 mmol/L CERNER MILLENNI UM Anion Gap 12 5 - 15 mmol/L CERNER MILLENNIU M Calcium 9.1 8.5 - 10.5 mg/dL CERNER JAVI NIUM Total Protein 6.3 6.1 - 8.0 gm/dL CERNER MIL LENNIUM Albumin 4.3 3.2 - 5.2 gm/dL CERNER MILLENN IUM AST 22 0 - 30 unit/L CERNER MILLENNIU M ALT 22 0 - 30 unit/L CERNER MILLENNIU M Alk Phos 54 40 - 104 unit/L CERNER MILLENN IUM Total Bilirubin 0.2 0.2 - 1.3 mg/dL CERNER M ILLENNIUM Bili, Direct 0.1 0.0 - 0.3 mg/dL CERNER MILL ENNIUM Estimated GFR 56 (L) >=60 CERNER MILLENNIU M Comment: This estimated GFR (eGFR) value was [...] the following links into your internet browser. http://Shopitize/DHnkdep http://[employer]/DHMCnkf Specimen Anatomical Collection Method Collection Time Receive d Time (Source) Location / / Volume Laterality Blood specimen 11/24/2014 12:04 5 (specimen) PM EDT 12:08 PM EDT Resulting Agency Comment Spec In Lab Alan Livingston MD CHEMISTRY ORDERABLES Performing Organization Address City/State/[place] [address] [facility] documented in this encounter Visit Diagnoses Diagnosis Chronic lymphocytic leukemia Chronic lymphoid leukemia, without menti on of having achieved remission documented in this encounter Care Teams Imaging Scheduler Relationship Specialty Start Date End Date Berkley Madrigal MD PCP - General 04/13/10 02/15/18 AYLEEN D [address] [place] [address] documented as of this encounter
--- OUTSIDE RECORDS SUMMARY | 2022-02-11 01:12 | XMS_ITS | Encounter Summary ---
:1950 Author Organization [facility] [place] [address] Care Team Providers Name Role Phone Berkley Madrigal MD Primary Care Provider Encounter Details Date Type Department Care Team Description 12/16/2013 Hospital Encounter Hematology and Oncology CLINIC, DR ALEXANDER at [facility] [place] Alan Livingston MD [facility] HEMATOLOGY/[place] [address] [place] [address] Social History Tobacco Use Types Packs/Day [...] Extract 500 mg Take 500 mg by 0 Cap mouth daily. melatonin 3 mg Tab Take 3 mg by mouth 0 nightly as needed. multivitamin capsule Take 1 capsule by 0 mouth daily. cholecalciferol, Vitamin Take 2,000 mg by 0 D3, 50 mcg (2,000 unit) mouth daily. Capsule simvastatin (ZOCOR) 5 mg Take 1 tablet by 90 tablet 3 10/2804/14/2014 tablet mouth every evening. acarbose (PRECOSE) 25 mg Take 1 tablet by 270 tablet 3 08/2111/24/2014 tabletIndications: Type 2 mouth 3 times daily diabetes mellitus (with meals). ESTROGENS, CONJUGATED Take by mouth. 0 07/08/2016 (PREMARIN ORAL) imipramine (TOFRANIL) 10 Take 10 mg by mouth 0 11/04/2019 mg tablet every morning. Glucosamine Sulfate 500 0 05/24/2010 0 09/02/2016 mg Tab documented as of this encounter Plan of Treatment Upcoming Encounters Date Type Specialty Care Team Description 02/11/2022 Scheduled View Only Hematology and Ángel Fischer Oncology [facility] [place], [place] [address] (Wo rk) 02/11/2022 TH Visit (TeleHealth) Hematology Ángel Kimbrough Oncology [facility] DR [place], [place] [address] (Wo rk) 02/11/2022 Infusion Hematology and Oncology 02/11/2022 Office Visit Hematology and Jazzy Armendariz R D [facility] HEMAT[facility] AND ONCOLOGY [place], [place] [address]375 (Wo rk) 02/22/2022 TH Visit (TeleHealth) Hematology and Yaquelin Celis Oncology E, [facility] HEMATOLOGY AND ONCOLOGY [place], [place] [address]375 (Wo rk) 02/25/2022 Office Visit Hematology and Ángel Fischer Oncology [facility] ONCOLOGY [place], [place] [address]375 (Wo rk) 02/25/2022 Infusion Hematology and Oncology 03/10/2022 Scheduled View Only Obstetrics and Nurse, Julian COLEMAN, health safety manager 03/10/2022 Office Visit Obstetrics and Shazia Whitley Gynecology [facility] UROGYNECOLOGY [place], [place] 0[address] (Wo rk) 03/11/2022 Office Visit Hector and Ángel Fischer MD [facility] [place] [address] Oncology Alyssa Joseph, [address] MEDICAL ONCOLOGY [place], [place] [phone] 03/11/2022 Infusion Hematology and Oncology 03/25/2022 Office Visit Hematology and Alyssa Joseph, Oncology [address] MEDICAL ONCOLOGY [place], [place] [address] (Wo rk) 03/25/2022 Infusion Hematology and Oncology 03/31/2022 Office Visit Hematology and Alan Livingston M D [facility] DR HEMATOLOGY/[place] [address] Oncology Nilam So, PRESSER MACHINE [facility] DR HEMATOLOGY/[place] [address] 04/08/2022 Office Visit Hematology and Ángel Fischer MD [facility] [place] [address] Oncology Alyssa Joseph, [address] MEDICAL ONCOLOGY [place], [place] [phone] 04/08/2022 Infusion Hematology and Oncology documented as of this encounter Visit Diagnoses Not on filedocumented in this encounter Care Teams Steel Placer Relationship Specialty Start Date End Date Berkley Madrigal MD PCP - General 04/13/10 02/15/18 AYLEEN r[address] [employer] [place], [place] [phone] documented as of this encounter
--- OUTSIDE RECORDS SUMMARY | 2022-02-11 01:12 | XMS_ITS | Encounter Summary ---
:1950 Author Organization [facility] [place] [address] Care Team Providers Name Role Phone Berkley Madrigal MD Primary Care Provider Encounter Details Date Type Department Care Team Description 08/11/2014 Ancillary Hematology and CLINIC, DR BENJAMIN bach mphocytic Appointment [place]cology [place] [facility] Livingston MD [facility] HEMATOLOGY/[place] [address] leukemia not having [facility] [place] [id number] Social History Tobacco Use Types Packs/Day Years [...] Fischer Oncology [facility] ONCOLOGY [place], [place] [address] (Wo rk) 02/11/2022 TH Visit (TeleHealth) Ángel Hill Oncology [facility] DR UMANA [place], [place] [address] (Wo rk) 02/11/2022 Infusion Hematology and Oncology 02/11/2022 Office Visit Hematology and Jazzy Armendariz R D Oncology [facility] AND ONCOLOGY [place], [place] [address] (Wo rk) 02/22/2022 TH Visit (TeleHealth) Hematology and Yaquelin Celis Oncology E, [facility] HEMATOLOGY AND ONCOLOGY [place], [place] [address] (Wo rk) 02/25/2022 Office Visit Ángel Hill Oncology [facility] DR UMANA [place], [place] [address] (Wo rk) 02/25/2022 Infusion Hematology and Oncology 03/10/2022 Scheduled View Only Obstetrics and Nurse, Julian COLEMAN, auto service writer 03/10/2022 Office Visit Obstetrics and Shazia Whitley, Gynecology [facility] UROGYNECOLOGY [place], [place] [address] (Wo rk) 03/11/2022 Office Visit Hematology and Ángel Fischer MD [facility] [place] [address] Oncology Alyssa Joseph[address] ONCOLOGY [place], [place] [phone] 03/11/2022 Infusion Hematology and Oncology 03/25/2022 Office Visit Hematology and Alyssa Joseph, Oncology [address] ONCOLOGY [place], [place] [phone] (Wo rk) 03/25/2022 Infusion Hematology and Oncology 03/31/2022 Office Visit Hematology and Alan Livingston M D [facility] DR HEMATOLOGY/[place] [address] Oncology Nilam So [facility] DR HEMATOLOGY/[place] [address] 04/08/2022 Office Visit Hematology and Ángel Fischer MD [facility] [place] [address] Oncology Alyss[address]peh[address] ONCOLOGY [place], [place] [phone] 04/08/2022 Infusion Hematology and Oncology documented as of this encounter Visit Diagnoses Diagnosis Chronic lymphocytic leukemia not having achieved remission documented in this encounter Care Teams Slope Hoist Operator Relationship Specialty Start Date End Date Berkley Madrigal MD PCP - General 04/13/10 02/15/18 AYLEEN Bray [address] [place] [address] documented as of this encounter
--- OUTSIDE RECORDS SUMMARY | 2022-02-11 01:12 | XMS_ITS | Encounter Summary ---
:1950 Author Organization [facility] [place] [address] Care Team Providers Name Role Phone Berkley Madrigal MD Primary Care Provider Encounter Details Date Type Department Care Team Description 08/11/2014 Hospital Encounter Hematology and Oncology CLINIC, DR A[place]AND[place] [facility] [place] Alan Livingston MD [facility] HEMATOLOGY/[place] [address] [place] [address] Social History Tobacco Use Types Packs/Day [...] 50 mcg (2,000 unit) mouth daily. Capsule acarbose (PRECOSE) 25 mg Take 1 tablet [...] Fischer Oncology [facility] [place], [place] [address] (Shana hewitt) 02/11/2022 TH Visit (TeleHealth) Hematology Ángel Kimbrough Oncology [facility] DR [place], [place] [address] (Shana hewitt) 02/11/2022 Infusion Hematology and Oncology 02/11/2022 Office Visit Hematology and Jazzy Armendariz R [facility] DRIVE HEMATOLOGY AND ONCOLOGY [place], [place] 0375 (Wo rk) 02/22/2022 TH Visit (TeleHealth) Hematology and Yaquelin Celis E, [facility] HEMATOLOGY AND ONCOLOGY [place], [place] [address] (Wo rk) 02/25/2022 Office Visit Hematology and Ángel Fischer Oncology [facility] ONCOLOGY [place], [place] 0[address] (Wo rk) 02/25/2022 Infusion Hematology and Oncology 03/10/2022 Scheduled View Only Obstetrics and NurseJulian II, asset recovery specialist 03/10/2022 Office Visit Obstetrics and Shazia Whitley, Gynecology [facility] UROGYNECOLOGY [place], [place] [address] (Wo rk) 03/11/2022 Office Visit Hematology and Ángel Fischer MD [facility] [address] Oncology Alyssa Joseph, [address] MEDICAL ONCOLOGY [place], [place] [phone] 03/11/2022 Infusion Hematology and Oncology 03/25/2022 Office Visit Hematology and Alyssa Joseph, Oncology [address] MEDICAL ONCOLOGY [place], [place] [phone] (Wo rk) 03/25/2022 Infusion Hematology and Oncology 03/31/2022 Office Visit Hematology and Alan Livingston M D [facility] HEMATOLOGY/[place] [address] Oncology Nilam So, [address]YPUN[address]ER [facility] DR HEMATOLOGY/[place] [address] 04/08/2022 Office Visit Hematology and Ángel Fischer MD [facility] [place] [address] Oncology Alyssa Joseph, [address] MEDICAL ONCOLOGY [place], [place] [address] 04/08/2022 Infusion Hematology and Oncology documented as of this encounter Visit Diagnoses Not on filedocumented in this encounter Care Teams Product Support Analyst Relationship Specialty Start Date End Date Berkley Madrigal MD PCP - General 04/13/10 02/15/18 AYLEEN Bray [address] [place], [place] [address] documented as of this encounter
--- OUTSIDE RECORDS SUMMARY | 2022-02-11 01:12 | XMS_ITS | Encounter Summary ---
:1950 Author Organization [facility] [place] [address] Care Team Providers Name Role Phone Berkley Madrigal MD Primary Care Provider Encounter Details Date Type Department Care Team Description 12/16/2013 Notes Only Hematology and Oncology at [facility], Kristy Kruse, RN [facility] [place] [address] Social History Tobacco Use Types Packs/Day Years [...] documented as of this encounter Progress Notes Kristy Sprague RN - 12/16/2013 1:52 PM EDT RESEARCH NURSE OFFICE NOTE Documentation of Informed Consent to Participate in Clinical Trial Q51930: Lipoprotein Lipase Expression in Chronic Lymphocytic Leukemia Carol Keller was seen while awaiting bloodwork in on 12/16/13. Patient was offered the opportunity to participate in study [id number]: Lipoprotein Lipase Expression inChronic Lymphocytic Leukemia. Study protocol reviewed with patient, including description of study purpose, potential risks and benefits, voluntary nature of participation, and requirements of participation. Education regarding additional blood to be drawn at time of routine blood draw provided. Discussed confidentiality of patient???s private health information as specified in consent form. Patient informed that she may discontinue study involvement at any time; informed that declining to participate or discontinuing study treatment will not compromise her access to treatment options or careat this institution. Carol Keller was given written informed consent form to read and review. She was given adequate time to review all information, and to ask questions and review concerns, all of which were answered to her satisfaction. Patient verbalized understanding of this protocol and consented for treatmenton study A11311. Consent form was signed and dated by patient and senior underwriter. Written informed consent was obtained prior to any study blood work being drawn. A copy of the signed consent form was given to patient. Original signed IC form given to JAVIER Zuñiga. documented in this encounter Plan of Treatment Upcoming Encounters Date Type Specialty Care Team Description 02/11/2022 Scheduled View Only Hematology and Ángel Fischer Oncology [facility] ONCOLOGY [place], [place] [address] (Wo rk) 02/11/2022 TH Visit (TeleHealth) Hematology Ángel Kimbrough Oncology [facility] DR UMANA [place], [place] [address] (Wo rk) 02/11/2022 Infusion Hematology and Oncology 02/11/2022 Office Visit Hematology and Jazzy Armendariz R D [facility] HEMATOLOGY AND ONCOLOGY [place], [place] [address] (Wo rk) 02/22/2022 TH Visit (TeleHealth) Hematology and Yaquelin Celis, [facility] HEMATOLOGY AND ONCOLOGY [place], [place] [address] (Wo rk) 02/25/2022 Office Visit Hematology Ángel Kimbrough Oncology [facility] DR UMANA [place], [place] [address] (Wo rk) 02/25/2022 Infusion Hematology and Oncology 03/10/2022 Scheduled View Only Obstetrics and NurseJulian II, road contractor 03/10/2022 Office Visit Obstetrics and Shazia Whitley, Gynecology [facility] UROGYNECOLOGY [place], [place] [address] (Wo rk) 03/11/2022 Office Visit Ángel Hill MD [facility] [place] [address] On[address] Alyssa Joseph[address] [place] [address] 03/11/2022 Infusion Hematology and Oncology 03/25/2022 Office Visit Hematology and Alyssa Joseph, Oncology [address] MEDICAL ONCOLOGY [place], [place] [phone] (Wo rk) 03/25/2022 Infusion Hematology and Oncology 03/31/2022 Office Visit Hematology and Alan Livingston M D [facility] DR HEMATOLOGY/[place] [address] [facility] [address] 04/08/2022 Office Visit Hematology and Ángel Fischer MD [facility] [place] [address] Oncology Alyssa Joseph, [address] MEDICAL ONCOLOGY [place], [place] [phone] 04/08/2022 Infusion Hematology and Oncology documented as of this encounter Visit Diagnoses Not on filedocumented in this encounter Care Teams Nozzle Operator Relationship Specialty Start Date End Date Berkley Madrigal MD PCP - General 04/13/10 02/15/18 AYLEEN Bray [address] [place], [place] [phone] documented as of this encounter
--- OUTSIDE RECORDS SUMMARY | 2022-02-11 01:12 | XMS_ITS | Encounter Summary ---
:1950 Author Organization [place] [address] Care Team Providers Name Role Phone Berkley Madrigal MD Primary Care Provider Reason for Visit Reason Comments Follow-up Encounter Details Date Type Department Care Team Description 04/14/2014 Follow-Up Hematology and Alan Livingston M D Chronic lymphocytic leukemia; Oncology at [facility] Diabetes mellitus type 2, un complicated [facility] DR Perkins HEMATOLOGY/[place] [address] [address] DEPT. [phone] [place], [place] [address] Social History Tobacco Use Types [...] place to sleep or slept in a usp (including now)? Sex Assigned at Date Recorded Female 12/24/2020 12:51 PM EDT documented as of this encounter Last Filed Vital Signs Vital Sign Reading Time Taken Comments Blood Pressure 138/61 04/14/2014 11:29 AM EST Pulse 79 04/14/2014 11:29 AM EST Temperature 36.5 ??C (97.7 ??F) 04/14/2014 11:29 AM EST Respiratory Rate 18 04/14/2014 11:29 AM EST Oxygen Saturation 98% 04/14/2014 11:29 AM EST Inhaled Oxygen Concentration - - Weight 74.6 kg (164 lb 7.4 oz) 04/14/2014 11:29 AM EST Height - - Body Mass Index 27.74 10/28/2013 3:30 PM EDT documented in this encounter Patient Instructions Patient InstructionsSchNilam rodgers, PMP PROJECT MANAGER - 04/14/2014 11:39 AM EST Recent Results (from the past 72 hour(s)) COMPREHENSIVE METABOLIC PANEL (NON-FASTING) Result Value Range Glucose Lvl 86 60 - 199 mg/dL BUN 19 (*) 8 - 18 mg/dL Creatinine 0.82 0.70 - 1.20 mg/dL Sodium 140 135 - 145 mmol/L Potassium 4.9 3.5 - 5.0 mmol/L Chloride 103 98 - 107 mmol/L CO2 28 22 - 31 mmol/L Anion Gap 9 5 - 15 mmol/L Calcium 9.2 8.5 - 10.5 mg/dL Total Protein 6.2 (*) 6.4 - 8.3 gm/dL Albumin 4.3 3.2 - 5.2 gm/dL AST 24 0 - 30 unit/L ALT 18 0 - 30 unit/L Alk Phos 63 40 - 104 unit/L Total Bilirubin 0.2 0.2 - 1.3 mg/dL Bili, Direct 0.1 0.0 - 0.3 mg/dL Estimated GFR >60 >=60 IMMUNOGLOBULINS, QUANTITATIVE Result Value Range IgG 559 (*) 700 - 1600 mg/dL IgA 59 (*) 70 - 400 mg/dL HEMOGRAM Result Value Range WBC 98.2 (*) 4.0 - 10.0 x10(3)/mcL RBC 4.57 3.93 - 5.22 x10(6)/mcL Hemoglobin 13.8 11.2 - 15.7 gm/dL Hematocrit 42.9 34.0 - 45.0 % MCV 93.9 79.0 - 94.0 fL MCH 30.2 26.6 - 32.2 pg MCHC 32.2 32.0 - 36.5 gm/dL Platelets 170 145 - 370 x10(3)/mcL RDWSD 45.5 35.0 - 46.0 fL RDWCV 13.6 10.9 - 14.4 % MPV 11.4 9.0 - 12.0 fL DIFFERENTIAL, AUTOMATED Result Value Range Neutrophils % 4.8 Neutr Abs (ANC) 4.59 1.50 - 6.30 x10(3)/mcL Lymphocytes % 93.0 Lymphocytes Abs 91.4 (*) 1.0 - 3.6 x10(3)/mcL Monocytes % 1.6 Monocyte Abs 1.6 (*) 0.2 - 1.0 x10(3)/mcL Eosinophils % 0.2 Eosinophils Abs 0.2 0.0 - 0.5 x10(3)/mcL Basophils % 0.2 Basophils Abs 0.2 0.0 - 0.2 x10(3)/mcL Immature Gran % 0.20 Claudia Gran Abs 0.19 (*) 0.00 - 0.05 x10(3)/mcL SCAN, PERIPHERAL BLOOD Result Value Range Plat Estimate Normal RBC Morphology Normal Smudge Cells Present Giant Platelets Less than 1 NUCLEATED RED BLOOD CELLS Result Value Range nRBC % Auto 0.0 nRBC Abs Auto 0.000 0.000 - 0.012 x10(3)/mcL BP 138/61 Pulse 79 Temp(Src) 36.5 ??C (97.7 ??F) (Oral) Resp 18 Wt 74.6 kg (164 lb 7.4 oz) SpO2 98% documented in this encounter Progress Notes Nilam So APRN - 04/14/2014 11:40 AM EST Subjective: Patient ID: Carol Keller is a 64 y.o. female here for f/u of CLL Patient Active Problem List Diagnosis ??? Verruca vulgaris ??? Macular pucker, right eye ??? Horseshoe retinal tear, right eye ??? SVT (supraventricular tachycardia) ??? Urinary incontinence, overflow ??? GERD (gastroesophageal reflux disease) ??? Diabetes mellitus ??? CLL (chronic lymphocytic leukemia) Dx 12/28 w/ WBC 27k P-53, CD38 and zap -70 negative. Cytogenetics 13 deletion (favorable prognosis) Observation only HPI Carol is doing well - she is again having hot flashes - they are not drenching night sweats - but more like the hot flashes she was having prior to starting premarin. She has had no recent infections. No new adenopathy. 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 Review of Systems Constitutional: Negative. HENT: Negative. Eyes: Negative. Respiratory: Negative. Negative for cough and shortness of breath. Cardiovascular: Negative. Negative for chest pain, palpitations and leg swelling. Gastrointestinal: Negative. Negative for nausea, vomiting, diarrhea and constipation. Genitourinary: Negative. Musculoskeletal: Negative. Skin: Negative. Neurological: [...] Neck: Normal range of motion. Neck supple. Right 1 cm posterior cervical node Cardiovascular: Normal rate, regular rhythm and normal [...] No inguinal and no supraclavicular adenopathy present. Left 1 cm axillary node Neurological: She is alert and oriented to person, place, and time. Skin: Skin is warm and dry. Psychiatric: She has a normal mood and affect. Lab Results Component Value Date WBC 98.2* 04/14/2014 HGB 13.8 04/14/2014 HCT 42.9 04/14/2014 MCV 93.9 04/14/2014 PLATELET 170 04/14/2014 Chemistry Component Value Date/Time NA 140 04/14/2014 1037 K 4.9 04/14/2014 1037 CL 103 04/14/2014 1037 CO2 28 04/14/2014 1037 BUN 19* 04/14/2014 1037 CREATININE 0.82 04/14/2014 1037 Component Value Date/Time CALCIUM 9.2 04/14/2014 1037 ALKPHOS 63 04/14/2014 1037 AST 24 04/14/2014 1037 ALT 18 04/14/2014 1037 BILITOT 0.2 04/14/2014 1037 BP 138/61 Pulse 79 Temp(Src) 36.5 ??C (97.7 ??F) (Oral) Resp 18 Wt 74.6 kg (164 lb 7.4 oz) SpO2 98% Assessment and Plan: 1. Assessment: CLL. Counts stable, No worrisome or symptomatic adenoapthy. No B symptoms, ALC doubling time about 3 years No recurrent infections, no signs of AIHA or ITP. No concern for transformation. No indication for treatment at this time. 2. Vasomotor symtpoms- will follow with PCP/MARBLE CUTTER = Her CLL is not a contraindication for hormonal therapy. Plan: We will continue to monitor in hematology clinic. Reviewed CLL and indications for treatment. Carol will return to hematology in 4 months. she will call if there are any problems before then. documented in this encounter Plan of Treatment Upcoming Encounters Date Type Specialty Care Team Description 02/11/2022 Scheduled View Only Hematology and Ángel Fischer Oncology [facility] ONCOLOGY [place], [place] [address] (Wo rk) 02/11/2022 TH Visit (TeleHealth) Hematology Ángel Kimbrough Oncology [facility] ONCOLOGY [place], [place] [address] (Wo rk) 02/11/2022 Infusion Hematology and Oncology 02/11/2022 Office Visit Hematology and Jazzy Armendariz R D [facility] HEMATOLOGY AND ONCOLOGY [place], [place] [address] (Wo rk) 02/22/2022 TH Visit (TeleHealth) Hematology and Yaquelin Celis Oncology E, [facility] HEMATOLOGY AND ONCOLOGY [place], [place] [address] (Wo rk) 02/25/2022 Office Visit Hematology Ángel Kimbrough Oncology [facility] DR UMANA [place], [place] [address] (Wo rk) 02/25/2022 Infusion Hematology and Oncology 03/10/2022 Scheduled View Only Obstetrics and Nurse, Obgymichelle II, product support analyst 03/10/2022 Office Visit Obstetrics and Shazia Whitley, Gynecology [facility] UROGYNECOLOGY [place], [place] [address] (Wo rk) 03/11/2022 Office Visit Ángel Hill MD [facility] [place] [address] Oncology Alyssa Joseph APRN [address] [place] [address] DR MEDICAL ONCOLOGY [place], [place] [id number] 03/11/2022 Infusion Hematology and Oncology 03/25/2022 Office Visit Hematology and Alyssa Joseph, Oncology [address] MEDICAL ONCOLOGY [place], [place] [id number] (Wo rk) 03/25/2022 Infusion Hematology and Oncology 03/31/2022 Office Visit Hematology and Alan Livingston M D [facility] DR HEMATOLOGY/[place] [address] Oncology [facility] DR H[facility] [address] 04/08/2022 Office Visit Hematology and Ángel Fischer MD [facility] [place] [address] [address] MEDICAL ONCOLOGY [place], [place] [id number] 04/08/2022 Infusion Hematology and Oncology documented as of this encounter Procedures Procedure Name Priority Date/Time Associated Comments Diagnosis IMMUNOGLOBULINS, STAT 04/14/2014 10:37 Chronic lymphocytic Results for this QUANTITATIVE AM EST leukemia procedure are i n the results section. SCAN, PERIPHERAL BLOOD STAT 04/14/2014 10:37 R esults for this AM EST procedure are i n the results section. NUCLEATED RED BLOOD STAT 04/14/2014 10:37 Resu lts for this CELLS AM EST procedure are i n the results section. HEMOGRAM STAT 04/14/2014 10:37 Chronic lymphocytic Resu lts for this AM EST leukemia procedure are i n the results section. DIFFERENTIAL, STAT 04/14/2014 10:37 Chronic lymphocytic Res ults for this AUTOMATED AM EST leukemia procedure are i n the results section. CBC (WITH DIFF) STAT 04/14/2014 10:37 Chronic lymphocytic AM EST leukemia HEMOGLOBIN A1C STAT 04/14/2014 10:37 Results f or this AM EST procedure are i n the results section. COMPREHENSIVE STAT 04/14/2014 10:37 Chronic lymphocytic Res ults for this METABOLIC PANEL AM EST leukemia procedure ar e in (NON-FASTING) the results section. documented in this encounter Results (ABNORMAL) Lactate Dehydrogenase (08/11/2014 3:12 PM EDT) athologist Signature LDH 227 (H) 110 - 220 CERNER unit/L MILLENNIUM Specimen Anatomical Collection Method Collection Time Receive d Time (Source) Location / / Volume Laterality Blood specimen 08/11/2014 3:12 PM 015 3:24 (specimen) EDT PM EDT Resulting Agency Comment Spec In Lab Alan Livingston MD CHEMISTRY ORDERABLES Performing Organization Address City/State/ZIP [place] [address] CERNER MILLENNIUM (ABNORMAL) Comprehensive metabolic panel (non-fasting) (08/11/2014 3:12 PM EDT) athologist Signature Glucose Lvl 89 60 - 199 CERNER mg/dL MILLENNIUM Comment: Diabetes: >=200 mg/dL plus symp toms BUN 18 8 - 18 mg/dL CERNER MILLENNIUM Creatinine 0.98 0.70 - 1.20 mg/dL CERNER MILL ENNIUM Comment: Please note that the pediatric reference intervals supplied above were not validated at [facility]. Results from pediatri c patients should be interpreted in conjunction to the patient's age, height and muscle mass. Sodium 142 135 - 145 mmol/L CERNER JAVI NIUM Potassium 4.4 3.5 - 5.0 mmol/L CERNER JAVI NIUM Comment: Please note: ??Patients with WBC >100,00 0 may have falsely elevated Potassium levels. ??For accurate Potassium quantif ication in these patients send serum separator tube (gold top) for subsequent determinations. ??Contact the Clinical Chemistry Laboratory if there are any qu estions. Chloride 102 98 - 107 mmol/L CERNER MILLENN IUM CO2 28 22 - 31 mmol/L CERNER MILLENNI UM Anion Gap 12 5 - 15 mmol/L CERNER MILLENNIU M Calcium 9.1 8.5 - 10.5 mg/dL CERNER JAVI NIUM Total Protein 6.6 6.1 - 8.0 gm/dL CERNER MIL LENNIUM Albumin 4.4 3.2 - 5.2 gm/dL CERNER MILLENN IUM AST 29 0 - 30 unit/L CERNER MILLENNIU M ALT 20 0 - 30 unit/L CERNER MILLENNIU M Alk Phos 57 40 - 104 unit/L CERNER MILLENN IUM Total Bilirubin 0.2 0.2 - 1.3 mg/dL CERNER M ILLENNIUM Bili, Direct 0.1 0.0 - 0.3 mg/dL CERNER MILL ENNIUM Estimated GFR 57 (L) >=60 CERNER MILLENNIU M Comment: This [...] the following links into your internet browser. [email or web address] Specimen Anatomical Collection Method Collection Time Receive d Time (Source) Location / / Volume Laterality Blood specimen 08/11/2014 3:12 PM 015 3:24 (specimen) EDT PM EDT Resulting Agency Comment Spec In Lab Alan Livingston MD CHEMISTRY ORDERABLES Performing Organization Address City/State/ZIP [place] [address] CERNENITA MIRZAENNIUM (ABNORMAL) Hemoglobin A1c (04/14/2014 10:37 AM EST) Analysis Performed At Patho logist Time Signature Hemoglobin A1C 6.1 (H) <=5.6 % CERNER MILLENNIUM Comment: Reference Range: 4.3 - 5.6% 5.7 - 6.4% - Increased Risk of Developin g Diabetes Mellitus 6.5% - Consistent with diagnosis of Diab etes Mellitus In the absence of hyperglycemia (i.e. pl asma glucose > 200 mg/dL) or classic symptoms of hyperglycemia a repeat measu rement of HbA1c should be performed on a separate sample to confirm the diagnos is. Diagnosis and Classification of Diabetes Mellitus, Diabetes Care 2013; 36: Suppl. 1, S67-53 Est Avg Gluc 128 mg/dL [facility] Comment: eAG equivalents for HbA1c percentages: HbA1c(%) ?eAG(mg/dL) 6.0 ?126 6.5 ?140 7.0 ?154 7.5 ?169 8.0 ?183 8.5 ?197 9.0 ?212 9.5 ?226 10.0 ? 240 Limitations: The eAG calculation has not been validated on women, individuals below 18 years old and above 70 years old, and individuals with hemoglobinopathies. Additional resources are available on ADA website: http://[email or web address] Lázaro MIX, Lolis J, Reece R, et al. ??Tr anslating the A1C assay into estimated average glucose values. ??Diabetes Care 2008:31(8):6652-0961. Specimen Anatomical Collection Method Collection Time Receive d Time (Source) Location / / Volume Laterality Blood specimen Venous Draw / 04/14/2014 10:37 04/14/20 14 (specimen) Unknown AM EST 12:03 PM EST Resulting Agency Comment Spec In Lab Alan Livingston MD CHEMISTRY ORDERABLES Performing Organization Address City/State/ZIP [place] [address] [facility] Nucleated Red Blood Cells (04/14/2014 10:37 AM EST) athologist Signature nRBC % Auto 0.0 % CERNER MILLENNIUM nRBC Abs Auto 0.000 0.000 - CERNER 0.012 MILLENNIUM x10(3)/mcL Specimen Anatomical Collection Method Collection Time Receive d Time (Source) Location / / Volume Laterality Blood specimen 04/14/2014 10:37 4 (specimen) AM EST 10:42 AM EST Resulting Agency Comment Spec In Lab Alan Livingston MD HEMATOLOGY ORDERABLES Performing Organization Address City/[facility]/ZIP Code Phon e Number [address] CERNER MILLENNIUM Scan, Peripheral Blood (04/14/2014 10:37 AM EST) [facility] Method Time Signature Plat Estimate Normal CERNER MILLENNIUM RBC Morphology Normal CERNER MILLENNIUM Smudge Cells Present CERNER MILLENNIUM Giant Less than 1 /HPF CERNER Platelets MILLENNIUM Specimen Anatomical Collection Method Collection Time Receive d Time (Source) Location / / Volume Laterality Blood specimen 04/14/2014 10:37 4 (specimen) AM EST 10:42 AM EST Resulting Agency Comment Spec In Lab Alan Livingston MD HEMATOLOGY ORDERABLES Performing Organization Address City/State/ZIP Code Phon e Number [address] CERNER MILLENNIUM (ABNORMAL) Differential, Automated (04/14/2014 10:37 AM EST) [facility] Method Time Signature Neutrophils % 4.8 % CERNER MILLENNIUM Neutr Abs (ANC) 4.59 1.50 - CERNER 6.30 MILLENNIUM x10(3)/mc L Lymphocytes % 93.0 % CERNER MILLENNIUM Lymphocytes Abs 91.4 (H) 1.0 - 3.6 CERNER x10(3)/mc MILLENNIUM L Monocytes % 1.6 % CERNER MILLENNIUM Monocyte Abs 1.6 (H) 0.2 - 1.0 CERNER x10(3)/mc MILLENNIUM L Eosinophils % 0.2 % CERNER MILLENNIUM Eosinophils Abs 0.2 0.0 - 0.5 CERNER x10(3)/mc MILLENNIUM L Basophils % 0.2 % CERNER MILLENNIUM Basophils Abs 0.2 0.0 - 0.2 CERNER x10(3)/mc MILLENNIUM L Immature Gran % 0.20 % CERNER MILLENNIUM Comment: Immature granulocytes(IG's)percentage an d absolute count will include metamyelocytes, myelocytes, and promyelo cytes. Blood smears from CBCs yielding IG's will be scanned manually for concor dance. If this scan disagrees with the automated IG or if promyelocytes are not ed, a manual differential will be performed. Claudia Gran Abs 0.19 (H) 0.00 - 0.05 x10(3)/mcL CER NER MILLENNIUM Specimen Anatomical Collection Method Collection Time Receive d Time (Source) Location / / Volume Laterality Blood specimen 04/14/2014 10:37 4 (specimen) AM EST 10:42 AM EST Resulting Agency Comment Spec In Lab Alan Livingston MD HEMATOLOGY ORDERABLES Performing Organization Address City/State/ZIP [place] [address] CERNER MILLENNIUM (ABNORMAL) Hemogram (04/14/2014 10:37 AM EST) P athologist Signature WBC 98.2 4.0 - 10.0 CERNER (Critical) x10(3)/mcL MILLENNIUM Comment: PLEASE NOTE: PATIENTS WITH WBC >100,000 MAY HAVE FALSELY ELEVATED POTASSIUM LEVELS. [facility] IF THERE ARE ANY QUESTIONS. This result has been called to GRAYSON HAMM by Milena Minaya on 04.14.14 at 11:14, and has been read back (). RBC 4.57 3.93 - 5.22 x10(6)/mcL CERNER MILLENNIUM Hemoglobin 13.8 11.2 - 15.7 gm/dL CERNER MILL ENNIUM Hematocrit 42.9 34.0 - 45.0 % CERNER MILLENNI UM MCV 93.9 79.0 - 94.0 fL CERNER MILLENNI UM MCH 30.2 26.6 - 32.2 pg CERNER MILLENNI UM MCHC 32.2 32.0 - 36.5 gm/dL CERNER MILLE NNIUM Platelets 170 145 - 370 x10(3)/mcL CERNER [place] LLENNIUM RDWSD 45.5 35.0 - 46.0 fL CERNER MILLENNI UM RDWCV 13.6 10.9 - 14.4 % CERNER MILLENNIU M MPV 11.4 9.0 - 12.0 fL CERNER MILLENNIU M Specimen Anatomical Collection Method Collection Time Receive d Time (Source) Location / / Volume Laterality Blood specimen 04/14/2014 10:37 4 (specimen) AM EST 10:42 AM EST Resulting Agency Comment Spec In Lab Alan Livingston MD HEMATOLOGY ORDERABLES Performing Organization Address City/[facility]/ZIP [facility] Phon e Number [address] CERNER MILLENNIUM (ABNORMAL) Immunoglobulins, Quantitative (04/14/2014 10:37 AM EST) athologist Signature IgG 559 (L) 700 - 1,600 CERNER mg/dL MILLENNIUM IgA 59 (L) 70 - 400 CERNER mg/dL MILLENNIUM IgM 26 (L) 40 - 230 CERNER mg/dL MILLENNIUM Comment: Result rechecked. DA Specimen Anatomical Collection Method Collection Time Receive d Time (Source) Location / / Volume Laterality Blood specimen 04/14/2014 10:37 4 (specimen) AM EST 10:42 AM EST Resulting Agency Comment Spec In Lab Alan Livingston MD CHEMISTRY ORDERABLES Performing Organization Address City/[facility] Phon e Number [address] CERNER MILLENNIUM (ABNORMAL) Comprehensive metabolic panel (non-fasting) (04/14/2014 10:37 AM EST) athologist Signature Glucose Lvl 86 60 - 199 CERNER mg/dL MILLENNIUM Comment: Diabetes: >=200 mg/dL plus symp toms BUN 19 (H) 8 - 18 mg/dL CERNER MILLENNIUM Creatinine 0.82 0.70 - 1.20 mg/dL CERNER MILL ENNIUM Comment: Please note that the pediatric reference intervals supplied above were not validated at [facility]. Results from pediatri c patients should be interpreted in conjunction to the patient's age, height and muscle mass. Sodium 140 135 - 145 mmol/L CERNER JAVI NIUM Potassium 4.9 3.5 - 5.0 mmol/L CERNER JAVI NIUM Comment: Please note: ??Patients with WBC >100,00 0 may have falsely elevated Potassium levels. ??For accurate Potassium quantif ication in these patients send serum separator tube (gold top) for subsequent determinations. ??Contact the Clinical Chemistry Laboratory if there are any qu estions. Chloride 103 98 - 107 mmol/L CERNER MILLENN IUM CO2 28 22 - 31 mmol/L CERNER MILLENNI UM Anion Gap 9 5 - 15 mmol/L CERNER MILLENNIU M Calcium 9.2 8.5 - 10.5 mg/dL CERNER JAVI NIUM Total Protein 6.2 (L) 6.4 - 8.3 gm/dL CERNER MIL LENNIUM Albumin 4.3 3.2 - 5.2 gm/dL CERNER MILLENN IUM AST 24 0 - 30 unit/L CERNER MILLENNIU M ALT 18 0 - 30 unit/L CERNER MILLENNIU M Alk Phos 63 40 - 104 unit/L CERNER MILLENN IUM Total Bilirubin 0.2 0.2 - 1.3 mg/dL CERNER M ILLENNIUM Bili, Direct 0.1 0.0 - 0.3 mg/dL CERNER MILL ENNIUM Estimated GFR >60 >=60 CERNER MILLENNIU M Comment: This estimated [...] the following links into your internet browser. [email or web address] [email or web address] Specimen Anatomical Collection Method Collection Time Receive d Time (Source) Location / / Volume Laterality Blood specimen 04/14/2014 10:37 4 (specimen) AM EST 10:42 AM EST Resulting Agency Comment Spec In Lab Alan Livingston MD CHEMISTRY ORDERABLES Performing Organization Address City/State/ZIP Code [place] [address] [facility] documented in this encounter Visit Diagnoses Diagnosis Chronic lymphocytic leukemia Chronic lymphoid leukemia, without menti on of having achieved remission Diabetes mellitus type 2, uncomplicated Type II or unspecified type diabetes omer litus without mention of complication, not stated as uncontrolled documented in this encounter Care Teams Digital Marketing Manager Relationship Specialty Start Date End Date Berkley Madrigal MD PCP - General 04/13/10 02/15/18 [facility] Katarina [address] [place] [address] documented as of this encounter
--- OUTSIDE RECORDS SUMMARY | 2022-02-11 01:12 | XMS_ITS | Encounter Summary ---
:1950 Author Organization [facility] [place] [address] Care Team Providers Name Role Phone Berkley Madrigal MD Primary Care Provider Encounter Details Date Type Department Care Team Description 05/25/2015 Hospital Encounter Hematology and Chronic lymphocytic Oncology at [facility] [place] [address] Social History Tobacco Use Types Packs/Day [...] 50 mcg (2,000 unit) mouth daily. Capsule MV,CA,MIN/IRON FUM/FA/VIT Take by mouth. 0 12/21/2015 K (MULTI FOR HER ORAL) ERGOCALCIFEROL, VITAMIN Take by mouth. 0 02/01/2016 D2, (VITAMIN D ORAL) aspirin 81 mg Tablet, Take 81 mg by mouth 0 07/22/2016 Delayed Release (E.C.) daily. melatonin 5 mg Tablet Take by mouth. 0 09/28/2015 ESTROGENS, CONJUGATED Take by mouth. 0 07/08/2016 (PREMARIN ORAL) imipramine (TOFRANIL) 10 Take 10 mg by mouth 0 11/04/2019 mg tablet every morning. Glucosamine Sulfate 500 0 05/24/2010 0 09/02/2016 mg Tab documented as of this encounter Plan of Treatment Upcoming Encounters Date Type Specialty Care Team Description 02/11/2022 Scheduled View Only Hematology and Ángel Fischer Oncology [facility] ONCOLOGY [place], [place] [address] (Shana hewitt) 02/11/2022 TH Visit (TeleHealth) Hematology Ángel Kimbrough Oncology [facility] DR LYNDSAY [place], [place] [address] (Shana hewitt) 02/11/2022 Infusion Hematology and Oncology 02/11/2022 Office Visit Hematology and Jazzy Armendariz R D [facility] DRIVE HEMATOLOGY AND ONCOLOGY [place], [place] [address] (Wo rk) 02/22/2022 TH Visit (TeleHealth) Hematology and Yaquelin Celis E, [facility] HEMATOLOGY AND ONCOLOGY [place], [place] [address] (Wo rk) 02/25/2022 Office Visit Hematology and Ángel Fischer, Oncology [facility] ONCOLOGY [place], [place] [address] (Wo rk) 02/25/2022 Infusion Hematology and Oncology 03/10/2022 Scheduled View Only Obstetrics and Nurse, Julian COLEMAN, furnace liner 03/10/2022 Office Visit Obstetrics and Shazia Whitley, Gynecology [facility] UROGYNECOLOGY [place], [place] [address] (Wo rk) 03/11/2022 Office Visit Hematology and Ángel Fischer MD [facility] [place] [address] Oncology Alyssa Joseph, [address] MEDICAL ONCOLOGY [place], [place] [id number] 03/11/2022 Infusion Hematology and Oncology 03/25/2022 Office Visit Hematology and Alyssa Joseph, Oncology [address] MEDICAL ONCOLOGY [place], [place] [id number] (Wo rk) 03/25/2022 Infusion Hematology and Oncology 03/31/2022 Office Visit Hematology and Alan Livingston M D [facility] HEMATOLOGY/[place] [address] Oncology Nilam So, MUTUEL CLERK [facility] DR HEMATOLOGY/[place] [address] 04/08/2022 Office Visit Hematology and Ángel Fischer MD [facility] [place] [address] Oncology Alyssa Joseph, [address] [address] 04/08/2022 Infusion Hematology and Oncology documented as of this encounter Procedures Procedure Name Priority Date/Time Associated Comments Diagnosis SCAN, PERIPHERAL BLOOD STAT 05/25/2015 1:43 PM Results for this EST procedure are i n the results section. NUCLEATED RED BLOOD STAT 05/25/2015 1:43 PM Re sults for this CELLS EST procedure are i n the results section. HEMOGRAM STAT 05/25/2015 1:43 PM Chronic lymphocytic Re sults for this EST leukemia procedure are i n the results section. DIFFERENTIAL, STAT 05/25/2015 1:43 PM Chronic lymphocytic R esults for this AUTOMATED EST leukemia procedure are i n the results section. CBC (WITH DIFF) STAT 05/25/2015 1:43 PM Chronic lymphocytic EST leukemia LACTATE DEHYDROGENASE STAT 05/25/2015 1:43 PM Chronic lymph ocytic Results for this EST leukemia procedure are i n the results section. COMPREHENSIVE STAT 05/25/2015 1:43 PM Chronic lymphocytic R esults for this METABOLIC PANEL EST leukemia procedure ar e in (NON-FASTING) the results section. documented in this encounter Results Nucleated Red Blood Cells (05/25/2015 1:43 PM EST) P athologist Signature nRBC % Auto 0.0 % CERNER MILLENNIUM nRBC Abs Auto 0.000 0.000 - CERNER 0.012 MILLENNIUM x10(3)/mcL Specimen Anatomical Collection Method Collection Time Receive d Time (Source) Location / / Volume Laterality Blood specimen 05/25/2015 1:43 PM 016 1:49 (specimen) EST PM EST Resulting Agency Comment Spec In Lab Alan Livingston MD HEMATOLOGY ORDERABLES Performing Organization Address City/State/ZIP Code Phon e Number [address] CERNER MILLENNIUM Scan, Peripheral Blood (05/25/2015 1:43 PM EST) P athologist Signature Plat Estimate Normal CERNER MILLENNIUM RBC Morphology Normal CERNER MILLENNIUM Specimen Anatomical Collection Method Collection Time Receive d Time (Source) Location / / Volume Laterality Blood specimen 05/25/2015 1:43 PM 016 1:49 (specimen) EST PM EST Resulting Agency Comment Spec In Lab Alan Livingston MD HEMATOLOGY ORDERABLES Performing Organization Address City/[facility]/ZIP Code Phon e Number [address] CERNER MILLENNIUM (ABNORMAL) Differential, Automated (05/25/2015 1:43 PM EST) Patholo gist Method Time Signature Neutrophils % 3.6 % CERNER MILLENNIUM Neutr Abs (ANC) 4.76 1.50 - CERNER 6.30 MILLENNIUM x10(3)/mc L Lymphocytes % 94.1 % CERNER MILLENNIUM Lymphocytes Abs 125.4 (H) 1.0 - 3.6 CERNER x10(3)/mc MILLENNIUM L Monocytes % 1.6 % CERNER MILLENNIUM Monocyte Abs 2.1 (H) 0.2 - 1.0 CERNER x10(3)/mc MILLENNIUM L Eosinophils % 0.2 % CERNER MILLENNIUM Eosinophils Abs 0.3 0.0 - 0.5 CERNER x10(3)/mc MILLENNIUM L Basophils % 0.3 % CERNER MILLENNIUM Basophils Abs 0.4 (H) 0.0 - 0.2 CERNER x10(3)/mc MILLENNIUM L [...] differential will be performed. Claudia Gran Abs 0.26 (H) 0.00 - 0.05 x10(3)/mcL CER NER MILLENNIUM Specimen Anatomical Collection Method Collection Time Receive d Time (Source) Location / / Volume Laterality Blood specimen 05/25/2015 1:43 PM 016 1:49 (specimen) EST PM EST Resulting Agency Comment Spec In Lab Alan Livingston MD HEMATOLOGY ORDERABLES Performing Organization Address City/State/[place] [address] CERNER MILLENNIUM (ABNORMAL) Hemogram (05/25/2015 1:43 PM EST) P athologist Signature WBC 133.2 4.0 - 10.0 CERNER (Critical) x10(3)/mcL MILLENNIUM Comment: Please note: Patients with WBC greater t jaeger 100,000 may have falsely elevated potassium levels. Contact the Clinical C hemistry Laboratory if there are any questions.. This result has been called to ROVERTO LIU by Milana Holly on 05 25 2015 at 1440, and has been read back. RBC 4.56 3.93 - 5.22 x10(6)/mcL CERNER MILLENNIUM Hemoglobin 13.5 11.2 - 15.7 gm/dL CERNER MILL ENNIUM Hematocrit 43.2 34.0 - 45.0 % CERNER MILLENNI UM MCV 94.7 (H) 79.0 - 94.0 fL CERNER MILLENNI UM MCH 29.6 26.6 - 32.2 pg CERNER MILLENNI UM MCHC 31.3 (L) 32.0 - 36.5 gm/dL CERNER MILLE NNIUM Platelets 150 145 - 370 x10(3)/mcL CERNER [place] LLENNIUM RDWSD 47.6 (H) 35.0 - 46.0 fL CERNER MILLENNI UM RDWCV 14.2 10.9 - 14.4 % CERNER MILLENNIU M MPV 11.7 9.0 - 12.0 fL CERNER MILLENNIU M Specimen Anatomical Collection Method Collection Time Receive d Time (Source) Location / / Volume Laterality Blood specimen 05/25/2015 1:43 PM 016 1:49 (specimen) EST PM EST Resulting Agency Comment Spec In Lab Alan Livingston MD HEMATOLOGY ORDERABLES Performing Organization Address City/State/ZIP Code Phon e Number [address] CERNER MILLENNIUM Lactate Dehydrogenase (05/25/2015 1:43 PM EST) athologist Signature LDH 217 110 - 220 CERNER unit/L MILLENNIUM Specimen Anatomical Collection Method Collection Time Receive d Time (Source) Location / / Volume Laterality Blood specimen 05/25/2015 1:43 PM 016 1:49 (specimen) EST PM EST Resulting Agency Comment Spec In Lab Alan Livingston MD CHEMISTRY ORDERABLES Performing Organization Address City/[facility] Phon e Number [address] CERNER MILLENNIUM Comprehensive metabolic panel (non-fasting) (05/25/2015 1:43 PM EST) athologist Signature Glucose Lvl 100 65 - 199 CERNER mg/dL MILLENNIUM Comment: Diabetes: >=200 mg/dL plus symp toms BUN 18 8 - 18 mg/dL CERNER MILLENNIUM Creatinine 0.87 0.70 - 1.20 mg/dL CERNER MILL ENNIUM Comment: Please note that the pediatric reference intervals supplied above were not validated at [facility]. Results from pediatri c patients should be interpreted in conjunction to the patient's age, height and muscle mass. Sodium 139 135 - 145 mmol/L CERNER JAVI NIUM Potassium See Note 3.5 - 5.0 mmol/L CERNER JAVI NIUM Comment: Please note: ??Patients with WBC >100,00 0 may have falsely elevated Potassium levels. ??For accurate Potassium quantif ication in these patients send serum separator tube (gold top) for subsequent determinations. ??Contact the Clinical Chemistry Laboratory if there are any qu estions. Plasma Potassium result is 4.8 mmol/L, s uspect pseudohyperkalemia. ??Recheck Potassium result on serum sample. called correction to roverto liu 09/04 14:48 Please note: ??Patients with WBC >100,00 0 may have falsely elevated Potassium levels. ??For accurate Potassium quantif ication in these patients send serum separator tube (gold top) for subsequent determinations. ??Contact the Clinical Chemistry Laboratory if there are any qu estions. Corrected from 4.8 mMol/L on 05/25/15 02 :48 by Zaria Galloway Chloride 100 98 - 107 mmol/L CERNER MILLENN IUM CO2 28 22 - 31 mmol/L CERNER MILLENNI UM Anion Gap 11 5 - 15 mmol/L CERNER MILLENNIU M Calcium 9.2 8.5 - 10.5 mg/dL CERNER JAVI NIUM Total Protein 6.8 6.1 - 8.0 gm/dL CERNER MIL LENNIUM Albumin 4.5 3.2 - 5.2 gm/dL CERNER MILLENN IUM AST 28 0 - 30 unit/L CERNER MILLENNIU M ALT 22 0 - 30 unit/L CERNER MILLENNIU M Alk Phos 61 40 - 104 unit/L CERNER MILLENN IUM [...] the following links into your internet browser. [email or web address] [email or web address]/[email or web address] Specimen Anatomical Collection Method Collection Time Receive d Time (Source) Location / / Volume Laterality Blood specimen 05/25/2015 1:43 PM 016 1:49 (specimen) EST PM EST Resulting Agency Comment Spec In Lab Alan Livingston MD CHEMISTRY ORDERABLES Performing Organization Address City/State/ZIP Code Phon e Number [place] [phone] [address] CERNER MILLENNIUM documented in this encounter Visit Diagnoses Diagnosis Chronic lymphocytic leukemia Chronic lymphoid leukemia, without menti on of having achieved remission documented in this encounter Care Teams Paving Supervisor Relationship Specialty Start Date End Date Berkley Madrigal MD PCP - General 04/13/10 02/15/18 AYLEEN Bray [address] [place] [address] documented as of this encounter
--- OUTSIDE RECORDS SUMMARY | 2022-02-11 01:12 | XMS_ITS | Encounter Summary ---
:1950 Author Organization [facility] Address [facility] [place] [address] Care Team Providers Name Role Phone Berkley Madrigal MD Primary Care Provider Encounter Details Date Type Department Care Team Description 11/20/2014 Orders Only Hematology and Alan Livingston M D Chronic lymphocytic Oncology at [facility] leukemia not having [facility] [address] achieved remission Cesar HEMATOLOGY/[place] [address] Y DEPT. [phone] [place], [place] [address] Social History Tobacco Use Types [...] Only Hematology and Ángel Fischer Oncology [facility] ONCOLOGY [place], [place] [address] (Wo rk) 02/11/2022 TH Visit (TeleHealth) Ángel Hill Oncology [facility] DR UMANA [place], [place] [address] (Wo rk) 02/11/2022 Infusion Hematology and Oncology 02/11/2022 Office Visit Hematology and Jazzy Armendariz R D Oncology [facility] CESAR HEMATOLOGY AND ONCOLOGY [place], [place] [address] (Wo rk) 02/22/2022 TH Visit (TeleHealth) Hematology and Yaquelin Celis Oncology E, [facility] HEMATOLOGY AND ONCOLOGY [place], [place] [address] (Wo rk) 02/25/2022 Office Visit Ángel Hill Oncology [facility] DR UMANA [place], [place] [address] (Wo rk) 02/25/2022 Infusion Hematology and Oncology 03/10/2022 Scheduled View Only Obstetrics and Nurse, Julian COLEMAN, product trainer 03/10/2022 Office Visit Obstetrics and Shazia Whitley, Gynecology [facility] UROGYNECOLOGY [place], [place] [address] (Wo rk) 03/11/2022 Office Visit Hematology and Ángel Fischer MD [facility] [place] [address] Oncology Alyssa Joseph[address] ONCOLOGY [place], [place] [phone] 03/11/2022 Infusion Hematology and Oncology 03/25/2022 Office Visit Hematology and Alyssa Joseph, Oncology [address] ONCOLOGY [place], [place] [phone] (Wo rk) 03/25/2022 Infusion Hematology and Oncology 03/31/2022 Office Visit Hematology and Alan Livingston M D [facility] DR HEMATOLOGY/[place] [address] [facility] [address] 04/08/2022 Office Visit Hematology and Ángel Fischer MD [facility] [place] [address] On[address] Alyss[address] Joseph[address] ONCOLOGY [place], [place] [phone] 04/08/2022 Infusion Hematology and Oncology documented as of this encounter Visit Diagnoses Diagnosis Chronic lymphocytic leukemia not having achieved remission documented in this encounter Care Teams Forging Roll Operator Relationship Specialty Start Date End Date Berkley Madrigal MD PCP - General 04/13/10 02/15/18 AYLEEN Bray [address] [place] [address] documented as of this encounter
--- OUTSIDE RECORDS SUMMARY | 2022-02-11 01:12 | XMS_ITS | Encounter Summary ---
:1950 Author Organization [facility] [place] [address] Care Team Providers Name Role Phone Berkley Madrigal MD Primary Care Provider Encounter Details Date Type Department Care Team Description 09/28/2015 Hospital Encounter Hematology and Chronic lymphocytic Oncology at [facility] [place] [address] Social History Tobacco Use Types Packs/Day [...] 50 mcg (2,000 unit) mouth daily. Capsule azithromycin (ZITHROMAX) Take 1 tablet by 6 tablet 0 09/2712/21/2015 250 mg Tablet mouth daily. Day1:take 2 tablets daily, Day 2-5:Take one tablet daily MV,CA,MIN/IRON FUM/FA/VIT Take by mouth. 0 12/21/2015 [...] View Only Hematology and Ángel Fischer, Oncology [facility] ONCOLOGY [place], [place] [address] (Wo rk) 02/11/2022 TH Visit (TeleHealth) Hematology and Ángel Fischer Oncology [facility] ONCOLOGY [place], [place] [address] (Wo rk) 02/11/2022 Infusion Hematology and Oncology 02/11/2022 Office Visit Hematology and Jazzy Armendariz R D [facility] DRIVE HEMATOLOGY AND ONCOLOGY [place], [place] [address] (Wo rk) 02/22/2022 TH Visit (TeleHealth) Hematology and Yaquelin Celis Oncology E, [facility] HEMATOLOGY AND ONCOLOGY [place], [place] [address] (Wo rk) 02/25/2022 Office Visit Hematology and Ángel Fischer Oncology [facility] ONCOLOGY [place], [place] [address] (Wo rk) 02/25/2022 Infusion Hematology and Oncology 03/10/2022 Scheduled View Only Obstetrics and Nurse, Oboneal COLEMAN, advertising account manager 03/10/2022 Office Visit Obstetrics and Shazia Whitley Gynecology [facility] UROGYNECOLOGY [place], [place] 0375 (Wo rk) 03/11/2022 Office Visit Hematology and Ángel Fischer MD [facility] [place] [address] On[address] MEDICAL ONCOLOGY [place], [place] [phone] 03/11/2022 Infusion Hematology and Oncology 03/25/2022 Office Visit Hematology and Alyssa Joseph, Oncology [address] MEDICAL ONCOLOGY [place], [place] [phone] (Wo rk) 03/25/2022 Infusion Hematology and Oncology 03/31/2022 Office Visit Hematology and Alan Livingston M D [facility] DR HEMATOLOGY/[place] [address] Oncology Nilam So, [facility] DR HEMATOLOGY/[place] [address] 04/08/2022 Office Visit Hematology and Ángel Fischer MD [facility] [place] [address] [address] [place] [address] 04/08/2022 Infusion Hematology and Oncology documented as of this encounter Procedures Procedure Name Priority Date/Time Associated Comments Diagnosis SCAN, PERIPHERAL BLOOD STAT 09/28/2015 1:37 PM Results for this EDT procedure are i n the results section. NUCLEATED RED BLOOD STAT 09/28/2015 1:37 PM Re sults for this CELLS EDT procedure are i n the results section. HEMOGRAM STAT 09/28/2015 1:37 PM Chronic lymphocytic Re sults for this EDT leukemia procedure are i n the results section. DIFFERENTIAL, STAT 09/28/2015 1:37 PM Chronic lymphocytic R esults for this AUTOMATED EDT leukemia procedure are i n the results section. CBC (WITH DIFF) STAT 09/28/2015 1:37 PM Chronic lymphocytic EDT leukemia COMPREHENSIVE STAT 09/28/2015 1:37 PM Chronic lymphocytic R esults for this METABOLIC PANEL EDT leukemia procedure ar e in (NON-FASTING) the results section. documented in this encounter Results Nucleated Red Blood Cells (09/28/2015 1:37 PM EDT) athologist Signature nRBC % Auto 0.0 % [facility] nRBC Abs Auto 0.000 0.000 - [place] 0.012 [facility] x10(3)/[facility] LABORATORY Specimen Anatomical Collection Method Collection Time Receive d Time (Source) Location / / Volume Laterality Blood specimen 09/28/2015 1:37 PM 016 1:45 (specimen) EDT PM EDT Resulting Agency Comment Spec In Lab Alan Livingston MD HEMATOLOGY ORDERABLES Performing Organization Address City/[facility]/ZIP Code Phon e Number [address] Scan, Peripheral Blood (09/28/2015 1:37 PM EDT) [facility] [employer] Method Time Signature Plat Estimate Normal [facility] RBC Morphology Normal [facility] Atypical Lymph Moderate [facility] Smudge Cells Present [facility] Less than 1 /HPF [facility] LABORATORY Specimen Anatomical Collection Method Collection Time Receive d Time (Source) Location / / Volume Laterality Blood specimen 09/28/2015 1:37 PM 016 1:45 (specimen) EDT PM EDT Resulting Agency Comment Spec In Lab Alan Livingston MD HEMATOLOGY ORDERABLES Performing Organization Address City/[facility]/ZIP Code Phon e Number [address] (ABNORMAL) Differential, Automated (09/28/2015 1:37 PM EDT) [facility] [employer] Method Time Signature Neutrophils % 3.6 % [facility] Neutr Abs (ANC) 4.29 1.50 - [place] 6.30 [facility] x10(3)/[facility] LABORATORY Lymphocytes % 93.9 % [facility] Lymphocytes Abs 114.3 (H) 1.0 - 3.6 [place] x10(3)/[facility] LABORATORY Monocytes % 1.7 % [facility] Monocyte Abs 2.1 (H) 0.2 - 1.0 [place] x10(3)/[facility] LABORATORY Eosinophils % 0.3 % [facility] Eosinophils Abs 0.3 0.0 - 0.5 [place] x10(3)/[facility] LABORATORY Basophils % 0.3 % [facility] Basophils Abs 0.4 (H) 0.0 - 0.2 [place] x10(3)/[facility] LABORATORY Immature Gran % 0.20 % [facility] Comment: Immature granulocytes(IG's)percentage an d absolute count will include metamyelocytes, myelocytes, and promyelo cytes. Blood smears from CBCs yielding IG's will be scanned manually for concor dance. If this scan disagrees with the automated IG or if promyelocytes are not ed, a manual differential will be performed. Claudia Gran Abs 0.28 (H) 0.00 - 0.05 x10(3)/[facility] LABORATORY Specimen Anatomical Collection Method Collection Time Receive d Time (Source) Location / / Volume Laterality Blood specimen 09/28/2015 1:37 PM 016 1:45 (specimen) EDT PM EDT Resulting Agency Comment Spec In Lab Alan Livingston MD HEMATOLOGY ORDERABLES Performing Organization Address City/State/[place] [address] (ABNORMAL) Hemogram (09/28/2015 1:37 PM EDT) P athologist Signature WBC 121.7 4.0 - 10.0 [place] (Critical) x10(3)/[facility] LABORATORY Comment: Please note: Patients with WBC greater t jaeger 100,000 may have falsely elevated potassium levels. Contact the Clinical C hemistry Laboratory if there are any questions.. This result has been called to VENKAT MAHMOOD by Lizeth Osorio on 09 28 2015 at 1431, and h as been read back. RBC 4.32 3.93 - 5.22 x10(6)/[facility] LABORATORY Hemoglobin 13.1 11.2 - 15.7 gm/dL [facility] LABORATORY Hematocrit 40.4 34.0 - 45.0 % [facility] MCV 93.5 79.0 - 94.0 fL [facility] MCH 30.3 26.6 - 32.2 pg [facility] MCHC 32.4 32.0 - 36.5 gm/dL [facility] LABORATORY Platelets 162 145 - 370 x10(3)/[facility] LABORATORY RDWSD 49.3 (H) 35.0 - 46.0 fL [facility] RDWCV 14.7 (H) 10.9 - 14.4 % [facility] LABORATORY MPV 11.7 9.0 - 12.0 fL [facility] LABORATORY Specimen Anatomical Collection Method Collection Time Receive d Time (Source) Location / / Volume Laterality Blood specimen 09/28/2015 1:37 PM 016 1:45 (specimen) EDT PM EDT Resulting Agency Comment Spec In Lab Alan Livingston MD HEMATOLOGY ORDERABLES Performing Organization Address City/State/[place] [address] (ABNORMAL) Comprehensive metabolic panel (non-fasting) (09/28/2015 1:37 PM EDT) athologist Signature Glucose Lvl 97 65 - 199 [place] mg/dL [facility] LABORATORY Comment: Diabetes: >=200 mg/dL plus symp toms BUN 16 8 - 18 mg/dL [facility] LABORATORY Creatinine 1.05 0.70 - 1.20 mg/dL [facility]OR[facility]ORY Comment: Please note that the pediatric reference intervals supplied above were not validated at [facility]. Results from pediatri c patients should be interpreted in conjunction to the patient's age, height and muscle mass. Sodium 143 135 - 145 mmol/L [facility]OR[facility]ORY Potassium See Note 3.5 - 5.0 mmol/L [facility] LABORATORY Comment: Please note: ??Patients with WBC >100,00 0 may have falsely elevated Potassium levels. ??For accurate Potassium quantif ication in these patients send serum separator tube (gold top) for subsequent determinations. ??Contact the Clinical Chemistry Laboratory if there are any qu estions. Plasma Potassium result is 4.2 mmol/L, s uspect pseudohyperkalemia. ??Recheck Potassium result on serum sample. Please note: ??Patients with WBC >100,00 0 may have falsely elevated Potassium levels. ??For accurate Potassium quantif ication in these patients send serum separator tube (gold top) for subsequent determinations. ??Contact the Clinical Chemistry Laboratory if there are any qu estions. Corrected from 4.2 mMol/L on 09/28/15 02 :36 by Refugio De La Fuente. Chloride 106 98 - 107 mmol/L [facility] CO2 27 22 - 31 mmol/L [facility] Anion Gap 10 5 - 15 mmol/L [facility] LABOR[facility]ORY Calcium 8.8 8.5 - 10.5 mg/dL [facility] Total Protein 6.2 6.1 - 8.0 gm/dL [facility] LABOR[facility] Albumin 4.2 3.2 - 5.2 gm/dL [facility] AST 23 0 - 30 unit/L [facility] LABORATORY ALT 15 0 - 30 unit/L [facility] LABOR[facility]ORY Alk Phos 58 40 - 104 unit/L [facility] Total Bilirubin 0.2 0.2 - 1.3 mg/dL [facility] LABOR[facility] Bili, Direct 0.1 0.0 - 0.3 mg/dL [facility]OR[facility]ORY Estimated GFR 52 (L) >=60 [facility] LABOR[facility]ORY Comment: This estimated GFR [...] the following links into your internet browser. http://[employer]/DHnkdep http://[employer]/DHMCnkf Specimen Anatomical Collection Method Collection Time Receive d Time (Source) Location / / Volume Laterality Blood specimen 09/28/2015 1:37 PM 016 1:45 (specimen) EDT PM EDT Resulting Agency Comment Spec In Lab Alan Livingston MD CHEMISTRY ORDERABLES Performing Organization Address City/State/[place] [address] documented in this encounter Visit Diagnoses Diagnosis Chronic lymphocytic leukemia Chronic lymphoid leukemia, without menti on of having achieved remission documented in this encounter Care Teams Senior Ui Ux Designer Relationship Specialty Start Date End Date Berkley Madrigal MD PCP - General 04/13/10 02/15/18 AYLEEN Bray [address] [place] [address] documented as of this encounter
--- OUTSIDE RECORDS SUMMARY | 2022-02-11 01:12 | XMS_ITS | Encounter Summary ---
:1950 Author Organization [facility] Address [address] [place] [address] Care Team Providers Name Role Phone Berkley Madrigal MD Primary Care Provider Encounter Details Date Type Department Care Team Description 01/30/2015 Office Visit Dermatology at [facility], ANDRÉS Wilson (act inic keratosis); Radha ALEGRIA History of SCC (squamous cell carcinoma) of skin [address] Jori B DERMATOLOGY [place], [place] [phone] Social History Tobacco Use Types Packs/Day Years [...] encounter Progress Notes Justino Cardenas MD - 01/30/2015 8:50 AM EDT Problem: Changing lesions, cupid's bow. Carol follows up after last being seen in February 2013. At that time, I removed an SCCA of the right upper cutaneous lip using a shave C and D. That has healed beautifully, and she is quite pleased about that. However, she has noticed changing shape and appearance of a lesion in the cupid's bow area of the upper cutaneous lip. She reminds me that she has CLL and is concerned about immune/immune changes increasing her risk of skin cancer in general. 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 It is mildly hyperkeratotic. She has a faint, white, hypopigmented scar at the site of her SCCA treatment, which is about 1.5 cm lateral to today's lesion. Otherwise, examination of the rest of the face, dorsal hands, and forearms is benign. Assessment and Plan: Actinic keratosis, cupid's bow. a. LN2 times two applied to site. b. Patient reassured about premalignant and non-malignant nature of this lesion. c. We discussed the lack of significant increase in melanoma or nonmelanoma skin cancers in CLL patients. d. I would continue to recommend p.r.n. followup. Return to clinic p.r.n. COPY: Berkley Madrigal M.D. documented in this encounter Plan of Treatment Upcoming Encounters Date Type Specialty Care Team Description 02/11/2022 Scheduled View Only Hematology Ángel Kimbrough Oncology [facility] ONCOLOGY [place] [id number] (Wo rk) 02/11/2022 TH Visit (TeleHealth) Ángel Hill Oncology [facility] DR UMANA [place] [address] (Wo rk) 02/11/2022 Infusion Hematology and Oncology 02/11/2022 Office Visit Hematology and Jazzy Armendariz R D [facility] HEMATOLOGY AND ONCOLOGY [place] [phone] (Wo rk) 02/22/2022 TH Visit (TeleHealth) Hematology and Yaquelin Celis Oncology E, [facility] HEMATOLOGY AND ONCOLOGY [place], [place] [address] (Wo rk) 02/25/2022 Office Visit Ángel Hill Oncology [facility] ONCOLOGY [place], [place] [address] (Wo rk) 02/25/2022 Infusion Hematology and Oncology 03/10/2022 Scheduled View Only Obstetrics and Nurse, Oboneal II, banquet prep cook 03/10/2022 Office Visit Obstetrics and Shazia Whitley Gynecology [facility] UROGYNECOLOGY [place], [place] [address] (Wo rk) 03/11/2022 Office Visit Hematology and Ángel Fischer MD [facility] [place] [address] Oncology Alyssa Joseph[address] [place] [address] 03/11/2022 Infusion Hematology and Oncology 03/25/2022 Office Visit Hematology and Alyssa Joseph, Oncology [address] MEDICAL ONCOLOGY [place], [place] [phone] (Wo rk) 03/25/2022 Infusion Hematology and Oncology 03/31/2022 Office Visit Hematology and Alan Livingston M D [facility] DR HEMATOLOGY/[place] [address] [facility] [facility] [facility] [address] 04/08/2022 Office Visit Hematology and Ángel Fischer MD [facility] [place] [address] Oncology Alyssa Joseph[address] MEDICAL ONCOLOGY [place], [place] [phone] 04/08/2022 Infusion Hematology and Oncology documented as of this encounter Visit Diagnoses Diagnosis AK (actinic keratosis) Actinic keratosis History of SCC (squamous cell carcinoma) of skin Personal history of other malignant neop lasm of skin documented in this encounter Care Teams News Wire Photo Operator Relationship Specialty Start Date End Date Berkley Madrigal MD PCP - General 04/13/10 02/15/18 JORI Bray [address] [place], [place] [id number] documented as of this encounter
--- OUTSIDE RECORDS SUMMARY | 2022-02-11 01:12 | XMS_ITS | Encounter Summary ---
:1950 Author Organization [facility] [place] [address] Care Team Providers Name Role Phone Berkley Madrigal MD Primary Care Provider Encounter Details Date Type Department Care Team Description 04/14/2014 Hospital Encounter Hematology and Oncology CLINIC, DR ALEX[facility] at [facility] Alan Livingston MD [facility] HEMATOLOGY/[place] [address] [place] [address] Social History Tobacco Use Types Packs/Day [...] View Only Hematology and Ángel Fischer Oncology [facility] [place], [place] [address] (Shana hewitt) 02/11/2022 TH Visit (TeleHealth) Hematology Ángel Kimbrough Oncology [facility] DR [place] [address] (Shana hewitt) 02/11/2022 Infusion Hematology and Oncology 02/11/2022 Office Visit Hematology and Jazzy Armendariz R D [facility] DRIVE HEMATOLOGY AND ONCOLOGY [place], [place] [address] (Wo rk) 02/22/2022 TH Visit (TeleHealth) Hematology and Yaquelin Celis E, [facility] HEMATOLOGY AND ONCOLOGY [place], [place] [address] (Wo rk) 02/25/2022 Office Visit Hematology and Ángel Fischer Oncology [facility] ONCOLOGY [place], [place] [address] (Wo rk) 02/25/2022 Infusion Hematology and Oncology 03/10/2022 Scheduled View Only Obstetrics and NurseJulian II, securities and real estate director 03/10/2022 Office Visit Obstetrics and Shazia Whitley, Gynecology [facility] UROGYNECOLOGY [place], [place] [address] (Wo rk) 03/11/2022 Office Visit Hematology and Ángel Fischer MD [facility] [place] [address] Oncology Alyssa Joseph, [address] MEDICAL ONCOLOGY [place], [place] [phone] 03/11/2022 Infusion Hematology and Oncology 03/25/2022 Office Visit Hematology and Alyssa Joseph, Oncology [address] MEDICAL ONCOLOGY [place], [place] [phone] (Wo rk) 03/25/2022 Infusion Hematology and Oncology 03/31/2022 Office Visit Hematology and Alan Livingston M D [facility] HEMATOLOGY/[place] [address] Oncology Nilam So, MOBILE DEVELOPMENT MANAGER [facility] DR HEMATOLOGY/[place] [address] 04/08/2022 Office Visit Hematology and Ángel Fischer MD [facility] [place] [address] Oncology Alyssa Joseph, [address] MEDICAL ONCOLOGY [place], [place] [phone] 04/08/2022 Infusion Hematology and Oncology documented as of this encounter Visit Diagnoses Not on filedocumented in this encounter Care Teams Coater Relationship Specialty Start Date End Date Berkley Madrigal MD PCP - General 04/13/10 02/15/18 AYLEEN Bray [address] [place], [place] [phone] documented as of this encounter
--- OUTSIDE RECORDS SUMMARY | 2022-02-11 01:12 | XMS_ITS | Encounter Summary ---
:1950 Author Organization [facility] [place] [address] Care Team Providers Name Role Phone Berkley Madrigal MD Primary Care Provider Reason for Visit Reason Comments Follow-up Encounter Details Date Type Department Care Team Description 08/11/2014 Follow-Up Hematology and Alan Livingston M D Chronic lymphocytic Oncology at [facility] leukemia [facility] DR Perkins HEMATOLOGY/[place] [address] DEPT. 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 She did have 2 colds this winter - did not require antibiotics. Denies any new adenopathy. No drenching night sweats. Energy has been good. Review of Systems Constitutional: Negative. HENT: Negative. [...] no supraclavicular adenopathy present. Right posterior cervical 1cm node unchanged Neurological: She is alert and oriented to person, place, and time. Skin: Skin is warm and dry. Psychiatric: She has a normal mood and affect. Recent Results (from the past 72 hour(s)) COMPREHENSIVE METABOLIC PANEL (NON-FASTING) Result Value Ref Range Glucose Lvl 89 60 - 199 mg/dL BUN 18 8 - 18 mg/dL Creatinine 0.98 0.70 - 1.20 mg/dL Sodium 142 135 - 145 mmol/L Potassium 4.4 3.5 - 5.0 mmol/L Chloride 102 98 - 107 mmol/L CO2 28 22 - 31 mmol/L Anion Gap 12 5 - 15 mmol/L Calcium 9.1 8.5 - 10.5 mg/dL Total Protein 6.6 6.1 - 8.0 gm/dL Albumin 4.4 3.2 - 5.2 gm/dL AST 29 0 - 30 unit/L ALT 20 0 - 30 unit/L Alk Phos 57 40 - 104 unit/L Total Bilirubin 0.2 0.2 - 1.3 mg/dL Bili, Direct 0.1 0.0 - 0.3 mg/dL Estimated GFR 57 (*) >=60 LACTATE DEHYDROGENASE Result Value Ref Range LDH 227 (*) 110 - 220 unit/L HEMOGRAM Result Value Ref Range WBC 121.2 (*) 4.0 - 10.0 x10(3)/mcL RBC 4.57 3.93 - 5.22 x10(6)/mcL Hemoglobin 13.7 11.2 - 15.7 gm/dL Hematocrit 43.1 34.0 - 45.0 % MCV 94.3 (*) 79.0 - 94.0 fL MCH 30.0 26.6 - 32.2 pg MCHC 31.8 (*) 32.0 - 36.5 gm/dL Platelets 175 145 - 370 x10(3)/mcL RDWSD 47.5 (*) 35.0 - 46.0 fL RDWCV 14.1 10.9 - 14.4 % MPV 11.6 9.0 - 12.0 fL DIFFERENTIAL, AUTOMATED Result Value Ref Range Neutrophils % 4.0 Neutr Abs (ANC) 4.83 1.50 - 6.30 x10(3)/mcL Lymphocytes % 93.9 Lymphocytes Abs 113.8 (*) 1.0 - 3.6 x10(3)/mcL Monocytes % 1.6 Monocyte Abs 2.0 (*) 0.2 - 1.0 x10(3)/mcL Eosinophils % 0.2 Eosinophils Abs 0.2 0.0 - 0.5 x10(3)/mcL Basophils % 0.2 Basophils Abs 0.2 0.0 - 0.2 x10(3)/mcL Immature Gran % 0.10 Claudia Gran Abs 0.15 (*) 0.00 - 0.05 x10(3)/mcL SCAN, PERIPHERAL BLOOD Result Value Ref Range Plat Estimate Normal RBC Morphology Normal Smudge Cells Present Giant Platelets Less than 1 NUCLEATED RED BLOOD CELLS Result Value Ref Range nRBC % Auto 0.0 nRBC Abs Auto 0.000 0.000 - 0.012 x10(3)/mcL BP 132/68 Pulse 76 Temp(Src) 36.8 ??C (98.2 ??F) (Oral) Resp 18 Wt 75.2 kg (165 lb 12.6 oz) SpO2 98% Assessment and Plan: 1. Assessment: CLL. White count up slightly, other counts stable, No worrisome or symptomatic adenoapthy. No B symptoms, No recurrent infections, no signs of AIHA or ITP. No concern for transformation.No indication for treatment at this time. Plan: We will continue to monitor in hematology clinic. Reviewed CLL and indications for treatment. Carol will return to hematology in 3 months. she will call if there are any problems before then. documented in this encounter Plan of Treatment Upcoming Encounters Date Type Specialty Care Team Description 02/11/2022 Scheduled View Only Hematology and Ángel Fischer Oncology [facility] DR UMANA [place], [place] [address] (Wo rk) 02/11/2022 TH Visit (TeleHealth) Ángel Hill Oncology [facility] DR UMANA [place], [place] [address] (Wo rk) 02/11/2022 Infusion Hematology and Oncology 02/11/2022 Office Visit Hematology and Jazzy Armendariz R D Oncology [facility] CESAR HEMATOLOGY AND ONCOLOGY [place], [place] [address] (Wo rk) 02/22/2022 TH Visit (TeleHealth) Hematology and Yaquelin Celis Oncology Daniel, [facility] HEMATOLOGY AND ONCOLOGY [place], [place] [address] (Wo rk) 02/25/2022 Office Visit Ángel Hill Oncology [facility] DR UMANA [place], [place] [address] (Wo rk) 02/25/2022 Infusion Hematology and Oncology 03/10/2022 Scheduled View Only Obstetrics and Nurse, Julian COLEMAN, bankruptcy processor 03/10/2022 Office Visit Obstetrics and Shazia Whitley, Gynecology [facility] UROGYNECOLOGY [place], [place] [address] (Wo rk) 03/11/2022 Office Visit Hematology and Ángel Fischer MD [facility] [place] [address] [address] ONCOLOGY [place], [place] [address] 03/11/2022 Infusion Hematology and Oncology 03/25/2022 Office Visit Hematology and Alyssa Joseph, Oncology [address] ONCOLOGY [place], [place] [address] (Wo rk) 03/25/2022 Infusion Hematology and Oncology 03/31/2022 Office Visit Hematology and Alan Livingston M D [facility] DR HEMATOLOGY/[place] [address] [facility] [facility] [address] 04/08/2022 Office Visit Hematology and Ángel Fischer MD [facility] [place] [address] Oncology [address] ONCOLOGY [place], [place] [address] 04/08/2022 Infusion Hematology and Oncology documented as of this encounter Procedures Procedure Name Priority Date/Time Associated Comments Diagnosis SCAN, PERIPHERAL BLOOD STAT 08/11/2014 3:12 PM Results for this EDT procedure are i n the results section. NUCLEATED RED BLOOD STAT 08/11/2014 3:12 PM Re sults for this CELLS EDT procedure are i n the results section. HEMOGRAM STAT 08/11/2014 3:12 PM Chronic lymphocytic Re sults for this EDT leukemia procedure are i n the results section. DIFFERENTIAL, STAT 08/11/2014 3:12 PM Chronic lymphocytic R esults for this AUTOMATED EDT leukemia procedure are i n the results section. CBC (WITH DIFF) STAT 08/11/2014 3:12 PM Chronic lymphocytic EDT leukemia LACTATE DEHYDROGENASE STAT 08/11/2014 3:12 PM Chronic lymph ocytic Results for this EDT leukemia procedure are i n the results section. HEMOGLOBIN A1C STAT 08/11/2014 3:12 PM Results for this EDT procedure are i n the results section. COMPREHENSIVE STAT 08/11/2014 3:12 PM Chronic lymphocytic R esults for this METABOLIC PANEL EDT leukemia procedure ar e in (NON-FASTING) the results section. documented in this encounter Results (ABNORMAL) Lactate Dehydrogenase (11/24/2014 12:04 PM EDT) athologist Signature LDH 228 (H) 110 - 220 CERNER unit/L MILLENNIUM Specimen Anatomical Collection Method Collection Time Receive d Time (Source) Location / / Volume Laterality Blood specimen 11/24/2014 12:04 5 (specimen) PM EDT 12:08 PM EDT Resulting Agency Comment Spec In Lab Alan Livingston MD CHEMISTRY ORDERABLES Performing Organization Address City/State/[place] [address] CERNER MILLENNIUM (ABNORMAL) Comprehensive metabolic panel (non-fasting) (11/24/2014 12:04 PM EDT) athologist Signature Glucose Lvl 81 65 - 199 CERNER mg/dL MILLENNIUM Comment: Diabetes: >=200 mg/dL plus symp toms BUN 15 8 - 18 mg/dL CERNER MILLENNIUM Creatinine 1.00 0.70 - 1.20 mg/dL CERNER MILL ENNIUM Comment: Please note that the pediatric reference intervals supplied above were not validated at [facility]. Results from pediatri c patients should be [...] the following links into your internet browser. [email or web address] Specimen Anatomical Collection Method Collection Time Receive d Time (Source) Location / / Volume Laterality Blood specimen 11/24/2014 12:04 5 (specimen) PM EDT 12:08 PM EDT Resulting Agency Comment Spec In Lab Alan Livingston MD CHEMISTRY ORDERABLES Performing Organization Address City/[facility]/ZIP Code Phon e Number [address] CERNER MILLENNIUM Nucleated Red Blood Cells (08/11/2014 3:12 PM EDT) P athologist Signature nRBC % Auto 0.0 % CERNER MILLENNIUM nRBC Abs Auto 0.000 0.000 - CERNER 0.012 MILLENNIUM x10(3)/mcL Specimen Anatomical Collection Method Collection Time Receive d Time (Source) Location / / Volume Laterality Blood specimen 08/11/2014 3:12 PM 015 3:24 (specimen) EDT PM EDT Resulting Agency Comment Spec In Lab Alan Livingston MD HEMATOLOGY ORDERABLES Performing Organization Address City/[facility]/ZIP Code Phon e Number [address] CERNER MILLENNIUM Scan, Peripheral Blood (08/11/2014 3:12 PM EDT) Patholo gist Method Time Signature Plat Estimate Normal CERNER [...] Organization Address City/State/ZIP Code Phon e Number [place] [phone] [address] [facility] (ABNORMAL[facility] Hemoglobin A1c (08/11/2014 3:12 PM EDT) Analysis Performed At [facility] Time Signature Hemoglobin A1C 6.0 (H) 4.3 - 5.6 [facility] Comment: Reference Range: 4.3 - 5.6% 5.7 [...] Mellitus, Diabetes Care 2013; 36: Suppl. 1, O97-50 Est Avg Gluc 126 mg/dL [facility] Comment: eAG equivalents for HbA1c percentages: HbA1c(%) ?eAG(mg/dL) 6.0 ?126 6.5 ?140 7.0 ?154 7.5 ?169 8.0 ?183 8.5 ?197 9.0 ?212 9.5 ?226 10.0 ? 240 Limitations: The eAG calculation has not been validated on women, individuals below 18 years old and above 70 years old, and individuals with hemoglobinopathies. Additional resources are available on [facility] website: [email or web address] Lázaro MIX, Lolis Isaac, Reece R, et al. ??Tr anslating the A1C assay into estimated average glucose values. ??Diabetes Care 2008:31(8):2195-1889. Specimen Anatomical Collection Method Collection Time Receive d Time (Source) Location / / Volume Laterality Blood specimen Venous Draw / 08/11/2014 3:12 PM 2014 4:33 (specimen) Unknown EDT PM EDT Resulting Agency Comment Spec In Lab Alan Livingston MD CHEMISTRY ORDERABLES Performing Organization Address City/State/ZIP Code Phon e Number [place] [phone] CERNER MILLENNIUM (ABNORMAL) Differential, Automated (08/11/2014 3:12 PM EDT) [facility] Method Time Signature Neutrophils % 4.0 % CERNER MILLENNIUM Neutr Abs (ANC) 4.83 1.50 - CERNER 6.30 MILLENNIUM x10(3)/mc L Lymphocytes % 93.9 % CERNER MILLENNIUM Lymphocytes Abs 113.8 (H) 1.0 - 3.6 CERNER x10(3)/mc MILLENNIUM L Monocytes % 1.6 % CERNER MILLENNIUM Monocyte Abs 2.0 (H) 0.2 - 1.0 CERNER x10(3)/mc MILLENNIUM L Eosinophils % 0.2 % CERNER MILLENNIUM Eosinophils Abs 0.2 0.0 - 0.5 CERNER x10(3)/mc MILLENNIUM L Basophils % 0.2 % CERNER MILLENNIUM Basophils Abs 0.2 0.0 - 0.2 CERNER x10(3)/mc MILLENNIUM L Immature Gran % 0.10 % CERNER MILLENNIUM Comment: Immature granulocytes(IG's)percentage an d absolute count will include metamyelocytes, myelocytes, and promyelo cytes. Blood smears from CBCs yielding IG's will be scanned manually for concdominic dandelma. If this scan disagrees with the automated IG or if promyelocytes are not ed, a manual differential will be performed. Claudia Gran Abs 0.15 (H) 0.00 - 0.05 x10(3)/mcL CER NER MILLENNIUM Specimen Anatomical Collection Method Collection Time Receive d Time (Source) Location / / Volume Laterality Blood specimen 08/11/2014 3:12 PM 015 3:24 (specimen) EDT PM EDT Resulting Agency Comment Spec In Lab Alan Livingston MD HEMATOLOGY ORDERABLES Performing Organization Address City/State/[place] [address] CERNER MILLENNIUM (ABNORMAL) Hemogram (08/11/2014 3:12 PM EDT) P athologist Signature WBC 121.2 4.0 - 10.0 CERNER (Critical) x10(3)/mcL MILLENNIUM Comment: PLEASE NOTE: PATIENTS WITH WBC >100,000 MAY HAVE FALSELY ELEVATED POTASSIUM LEVELS. CONTACT THE [facility] IF THERE ARE ANY QUESTIONS. This result has been called to MARCIO MAGALLANES by GA JACOBS on 08.11.14 at 15:45, and has been read lisa k (). RBC 4.57 3.93 - 5.22 x10(6)/mcL CERNER MILLENNIUM Hemoglobin 13.7 11.2 - 15.7 gm/dL CERNER MILL ENNIUM Hematocrit 43.1 34.0 - 45.0 % CERNER MILLENNI UM MCV 94.3 (H) 79.0 - 94.0 fL CERNER MILLENNI UM MCH 30.0 26.6 - 32.2 pg CERNER MILLENNI UM MCHC 31.8 (L) 32.0 - 36.5 gm/dL CERNER MILLE NNIUM Platelets 175 145 - 370 x10(3)/mcL CERNER AR LLENNIUM RDWSD 47.5 (H) 35.0 - 46.0 [...] Organization Address City/State/[place] [address] CERNER MILLENNIUM (ABNORMAL) Lactate Dehydrogenase (08/11/2014 3:12 PM EDT) athologist Signature LDH 227 (H) 110 - 220 CERNER unit/L MILLENNIUM Specimen Anatomical Collection Method Collection Time Receive d Time (Source) Location / / Volume Laterality Blood specimen 08/11/2014 3:12 PM 015 3:24 (specimen) EDT PM EDT Resulting Agency Comment Spec In Lab Alan Livingston MD CHEMISTRY ORDERABLES Performing Organization Address City/State/ZIP Code Phon e Number [place] [phone] CERNER MILLENNIUM (ABNORMAL) Comprehensive metabolic panel (non-fasting) (08/11/2014 3:12 PM EDT) athologist Signature Glucose Lvl 89 60 - 199 CERNER mg/dL MILLENNIUM Comment: Diabetes: >=200 mg/dL plus symp toms BUN 18 8 - 18 mg/dL CERNER MILLENNIUM Creatinine 0.98 0.70 - 1.20 mg/dL CERNER MILL ENNIUM Comment: Please note that the pediatric reference intervals supplied above were not validated at [facility]. Results from pediatri c patients should be [...] the following links into your internet browser. [email or web address] Specimen Anatomical Collection Method Collection Time Receive d Time (Source) Location / / Volume Laterality Blood specimen 08/11/2014 3:12 PM 015 3:24 (specimen) EDT PM EDT Resulting Agency Comment Spec In Lab Alan Livingston MD CHEMISTRY ORDERABLES Performing Organization Address City/State/[place] [address] YANELIS SALCIDO documented in this encounter Visit Diagnoses Diagnosis Chronic lymphocytic leukemia Chronic lymphoid leukemia, without menti on of having achieved remission documented in this encounter Care Teams Railroad Baggage Porter Relationship Specialty Start Date End Date Berkley Madrigal MD PCP - General 04/13/10 02/15/18 AYLEEN D [address] [place], [place] [address] documented as of this encounter
--- OUTSIDE RECORDS SUMMARY | 2022-02-11 01:12 | XMS_ITS | Encounter Summary ---
:1950 Author Organization [facility] [place] [address] Care Team Providers Name Role Phone Berkley Madrigal MD Primary Care Provider Encounter Details Date Type Department Care Team Description 11/24/2014 Ancillary Hematology and CLINIC, DR BENJAMIN bach mphocytic Appointment Oncology at [facility] Alan Livingston MD [facility] HEMATOLOGY/[place] [address] leukemia not having [facility] [place] [id number] Social History Tobacco Use Types Packs/Day Years [...] Ángel Fischer Oncology [facility] ONCOLOGY [place], [place] [address] (Wo rk) 02/11/2022 TH Visit (TeleHealth) Ángel Hill Oncology [facility] DR UMANA [place], [place] [address] (Wo rk) 02/11/2022 Infusion Hematology and Oncology 02/11/2022 Office Visit Hematology and Jazzy Armendariz R D Oncology [facility] CESAR HEMATOLOGY AND ONCOLOGY [place], [place] [address] (Wo rk) 02/22/2022 TH Visit (TeleHealth) Hematology and Yaquelin Celis Oncology E, [facility] HEMATOLOGY AND ONCOLOGY [place], [place] [address] (Wo rk) 02/25/2022 Office Visit Ángel Hill Oncology [facility] DR UMANA [place], [place] [address] (Wo rk) 02/25/2022 Infusion Hematology and Oncology 03/10/2022 Scheduled View Only Obstetrics and Nurse, Julian COLEMAN, dynamo tender 03/10/2022 Office Visit Obstetrics and Shazia Whitley, Gynecology [facility] UROGYNECOLOGY [place], [place] [address] (Wo rk) 03/11/2022 Office Visit Hematology and Ángel Fischer MD [facility] [place] [address] Oncology [address]lyss[address] Joseph[address] ONCOLOGY [place], [place] [id number] 03/11/2022 Infusion Hematology and Oncology 03/25/2022 Office Visit Hematology and Alyssa Joesph, Oncology [address] ONCOLOGY [place], [place] [id number] (Wo rk) 03/25/2022 Infusion Hematology and Oncology 03/31/2022 Office Visit Hematology and Alan Livingston M D [facility] DR HEMATOLOGY/[place] [address] Oncology Nilam So [facility] DR HEMATOLOGY/[place] [address] 04/08/2022 Office Visit Hematology and Ángel Fischer MD [facility] [place] [address] Oncology [address] ONCOLOGY [place], [place] [id number] 04/08/2022 Infusion Hematology and Oncology documented as of this encounter Visit Diagnoses Diagnosis Chronic lymphocytic leukemia not having achieved remission documented in this encounter Care Teams Retail Management Trainee Relationship Specialty Start Date End Date Berkley Madrigal MD PCP - General 04/13/10 02/15/18 AYLEEN Bray [address] [place] [address] documented as of this encounter
--- OUTSIDE RECORDS SUMMARY | 2022-02-11 01:12 | XMS_ITS | Encounter Summary ---
:1950 Author Organization [facility] [place] [address] Care Team Providers Name Role Phone Berkley Madrigal MD Primary Care Provider Reason for Visit Reason Comments Blurred Vision Pt sent by Dr. Danielson ma c hole OD CBC MND Diabetes Consultation (Routine) - Closed Specialty Diagnoses / Procedures Referred By Contact Refer red To Contact Ophthalmology Diagnoses Macular hole of right eye MACULAR HOLE OD Ladonna Fischer E, OD Pavan Coffey, Procedures CONSULT, TEST & TREAT [address] [facility] [address] [place] [address] [facility] OPHTHALMOLOGY DEPT. [place], [place] [address] Phone: Fax: Referral ID Status Reason Start Date Expiration Date Visits Requ ested Visits Authorized [id number] Closed 05/05/2015 05/04/2016 1 1 Encounter Details Date Type Department Care Team Description 05/08/2015 Office Visit Ophthalmology at [facility] C Pavan Coffey Macular pucker, [facility] [place] [address] OPHTHALMOLOGY DE PT. [place], [place] [address] (Wo rk) Social History Tobacco Use Types Packs/Day Years Used Date Never Smoker Alcohol Use Standard Drinks/Week Comments Yes 0 [...] documented as of this encounter Progress Notes Vivi Cornejo E - 05/08/2015 1:08 PM EST Bilateral macular pucker Pseudohole appearance right eye Dear Dr. Fischer; I had the pleasure seeing this nice patient or follow-up consultation on May 08, 2015. I'm pleased to report that she has a pseudohole in the right eye related to the epiretinal membrane but not atrue hole with traction or subretinal fluid. This of course is good news In the left eye, she has a mild epiretinal membrane with minimal alteration of macular anatomy. Accordingly, for each eye, I am recommending observation. If however she develops decreased vision or significant metamorphopsia then I would have a low threshold for considering vitrectomy membrane peeling given her bilateral presentation. Provided that you're in agreement, I would like to see this patient in 6 months or sooner if there are changes. I've asked the patient to be sure to follow-up with you as scheduled in the months ahead as well If you have any questions or concerns I would be delighted to speak with you at any time Respectfully Pavan documented in this encounter Plan of Treatment Upcoming Encounters Date Type Specialty Care Team Description 02/11/2022 Scheduled View Only Hematology Ángel Kimbrough Oncology [facility] DR UMANA [place], [place] [address] (Wo rk) 02/11/2022 TH Visit (TeleHealth) Ángel Hill Oncology [facility] DR UMANA [place], [place] [address] (Wo rk) 02/11/2022 Infusion Hematology and Oncology 02/11/2022 Office Visit Hematology and Jazzy Armendariz R D Oncology [facility]AR HEMATOLOGY AND ONCOLOGY [place], [place] [address] (Wo rk) 02/22/2022 TH Visit (TeleHealth) Hematology and Yaquelin Celis Oncology E, [facility] HEMATOLOGY AND ONCOLOGY [place], [place] [address] (Wo rk) 02/25/2022 Office Visit Ángel Hill Oncology [facility] DR UMANA [place], [place] [address] (Wo rk) 02/25/2022 Infusion Hematology and Oncology 03/10/2022 Scheduled View Only Obstetrics and Nurse, Julian COLEMAN, agricultural extension educator 03/10/2022 Office Visit Obstetrics and Shazia Whitley Gynecology [employer] [facility] UROGYNECOLOGY [place], [place] [address] (Wo rk) 03/11/2022 Office Visit Hematology and Ángel Fischer MD [facility] [place] [address] Oncology Alyssa Joseph[address] MEDICAL ONCOLOGY [place], [place] [phone] 03/11/2022 Infusion Hematology and Oncology 03/25/2022 Office Visit Hematology and Alyssa Joseph, Oncology [address] [place] [address] (Wo rk) 03/25/2022 Infusion Hematology and Oncology 03/31/2022 Office Visit Hematology and Alan Livingston M D [facility] DR HEMATOLOGY/ONCOLOGY [place] [address] [facility]cology [facility]ONCOLOGY [place] [address] 04/08/2022 Office Visit Hematology and Ángel Fischer MD [facility] [place] [address] Oncology Alyssa Joseph[address] MEDICAL ONCOLOGY [place], [place] [address] 04/08/2022 Infusion Hematology and Oncology documented as of this encounter Procedures Procedure Name Priority Date/Time Associated Diagnosis Comme nts OCT RETINA - OU - Routine 05/08/2015 1:40 PM Macular pucker, R esults for this BOTH EYES EST bilateral procedure are i n the results section. documented in this encounter Results OCT [id number] EYES (05/08/2015 1:40 PM EST) Anatomical Region Laterality Modality Other Specimen (Source) Anatomical Location Collection Method / Collectio n Time Received Time / Laterality Volume Narrative 05/08/2015 1:40 PM EST This imaging studies indicated by virtue of the patient's bilateral macular pathology. In the right eye ther e is an epiretinal membrane with partial separation left eye is also quit e similar in this regard. Importantly, there is a pseudohole in th e right eye but no true hole. No cystic changes or other anatomic changes are defined. The left eye similar in this regard but no pseudohole ascerta ined. Clinical correlation advised. Pavan Coffey M.D. Pavan Coffey MD OPHTHALMOLOGY SERVICES ORDER MELYSSA documented in this encounter Visit Diagnoses Diagnosis Macular pucker, bilateral Macular puckering of retina documented in this encounter Care Teams Hospital Receiving Clerk Relationship Specialty Start Date End Date Berkley Madrigal MD PCP - General 04/13/10 02/15/18 AYLEEN Bray [address] [place] [address] documented as of this encounter
--- OUTSIDE RECORDS SUMMARY | 2022-02-11 01:12 | XMS_ITS | Encounter Summary ---
:1950 Author Organization [facility] [place] [address] Care Team Providers Name Role Phone Berkley Madrigal MD Primary Care Provider Reason for Visit Reason Comments Follow-up Encounter Details Date Type Department Care Team Description 11/24/2014 Follow-Up Hematology and lAan Livingston M D CLL (chronic Oncology at [facility] lymphocytic leukemia) [facility] DR Perkins HEMATOLOGY/[place] [address] DEPT. [phone] [place], [place] [address] (Wo rk) Social History Tobacco [...] Sign Reading Time Taken Comments Blood Pressure 128/64 11/24/2014 1:06 PM EDT Pulse 64 11/24/2014 1:06 PM EDT Temperature 36.7 ??C (98.1 ??F) 11/24/2014 1:06 PM EDT Respiratory Rate 18 11/24/2014 1:06 PM EDT Oxygen Saturation 99% 11/24/2014 1:06 PM EDT Inhaled Oxygen Concentration - - Weight 75.7 kg (166 lb 14.2 oz) 11/24/2014 1:06 PM EDT Height - - Body Mass Index 28.15 10/28/2013 3:30 PM EDT documented in this encounter Patient Instructions Patient InstructionsSchNilam rodgers, ADENIKE - 11/24/2014 1:21 PM EDT Recent Results (from the past 72 hour(s)) COMPREHENSIVE METABOLIC PANEL (NON-FASTING) Result Value Ref Range Glucose Lvl 81 65 - 199 mg/dL BUN 15 8 - 18 mg/dL Creatinine 1.00 0.70 - 1.20 mg/dL Sodium 143 135 - 145 mmol/L Potassium See Note 3.5 - 5.0 mmol/L Chloride 103 98 - 107 mmol/L CO2 28 22 - 31 mmol/L Anion Gap 12 5 - 15 mmol/L Calcium 9.1 8.5 - 10.5 mg/dL Total Protein 6.3 6.1 - 8.0 gm/dL Albumin 4.3 3.2 - 5.2 gm/dL AST 22 0 - 30 unit/L ALT 22 0 - 30 unit/L Alk Phos 54 40 - 104 unit/L Total Bilirubin 0.2 0.2 - 1.3 mg/dL Bili, Direct 0.1 0.0 - 0.3 mg/dL Estimated GFR 56 (*) >=60 LACTATE DEHYDROGENASE Result Value Ref Range LDH 228 (*) 110 - 220 unit/L HEMOGRAM Result Value Ref Range WBC 120.8 (*) 4.0 - 10.0 x10(3)/mcL RBC 4.38 3.93 - 5.22 x10(6)/mcL Hemoglobin 13.2 11.2 - 15.7 gm/dL Hematocrit 41.6 34.0 - 45.0 % MCV 95.0 (*) 79.0 - 94.0 fL MCH 30.1 26.6 - 32.2 pg MCHC 31.7 (*) 32.0 - 36.5 gm/dL Platelets 159 145 - 370 x10(3)/mcL RDWSD 47.5 (*) 35.0 - 46.0 fL RDWCV 14.1 10.9 - 14.4 % MPV 11.6 9.0 - 12.0 fL NUCLEATED RED BLOOD CELLS Result Value Ref Range nRBC % Auto 0.0 nRBC Abs Auto 0.000 0.000 - 0.012 x10(3)/mcL DIFFERENTIAL, MANUAL Result Value Ref Range Neutrophil % 3 Lymphocyte % 96 Eosinophil % 1 Neutrophil Abs 3.6 1.5 - 6.3 x10(3)/mcL Neutr Abs (ANC) 3.62 1.50 - 6.30 x10(3)/mcL Lymphocyte Abs 116.0 (*) 1.0 - 3.6 x10(3)/mcL Eosinophil Abs 1.2 (*) 0.0 - 0.5 x10(3)/mcL Tot Diff Cell Ct 100 Plat Estimate Normal RBC Morphology Normal Smudge Cells Present BP 128/64 Pulse 64 Temp(Src) 36.7 ??C (98.1 ??F) (Temporal) Resp 18 Wt 75.7 kg (166 lb 14.2 oz) SpO2 99% documented in this encounter Progress Notes Nilam So, ADENIKE - 11/24/2014 1:21 PM EDT Subjective: Patient ID: Carol Keller [...] HPI Carol is doing well - she has had a healthy few months. She has no new lumps or bumps. No night sweats. Appetite good. Energy is good - some up and down with her blood sugars - she keeps a close eye on her blood sugars. She really has no concerns or complaints today. Review of Systems [...] Lymphadenopathy: She has cervical adenopathy. Right cervical: Superficial cervical adenopathy present. She has no axillary adenopathy. Right: No inguinal and no supraclavicular adenopathy present. Left: No inguinal and no supraclavicular adenopathy present. Right 1 cm posterior cervical node Neurological: She is alert and oriented to person, place, and time. Skin: Skin is warm and dry. Psychiatric: She has a normal mood and affect. Recent Results (from the past 72 hour(s)) COMPREHENSIVE METABOLIC PANEL (NON-FASTING) Result Value Ref Range Glucose Lvl 81 65 - 199 mg/dL BUN 15 8 - 18 mg/dL Creatinine 1.00 0.70 - 1.20 mg/dL Sodium 143 135 - 145 mmol/L Potassium See Note 3.5 - 5.0 mmol/L Chloride 103 98 - 107 mmol/L CO2 28 22 - 31 mmol/L Anion Gap 12 5 - 15 mmol/L Calcium 9.1 8.5 - 10.5 mg/dL Total Protein 6.3 6.1 - 8.0 gm/dL Albumin 4.3 3.2 - 5.2 gm/dL AST 22 0 - 30 unit/L ALT 22 0 - 30 unit/L Alk Phos 54 40 - 104 unit/L Total Bilirubin 0.2 0.2 - 1.3 mg/dL Bili, Direct 0.1 0.0 - 0.3 mg/dL Estimated GFR 56 (*) >=60 LACTATE DEHYDROGENASE Result Value Ref Range LDH 228 (*) 110 - 220 unit/L HEMOGRAM Result Value Ref Range WBC 120.8 (*) 4.0 - 10.0 x10(3)/mcL RBC 4.38 3.93 - 5.22 x10(6)/mcL Hemoglobin 13.2 11.2 - 15.7 gm/dL Hematocrit 41.6 34.0 - 45.0 % MCV 95.0 (*) 79.0 - 94.0 fL MCH 30.1 26.6 - 32.2 pg MCHC 31.7 (*) 32.0 - 36.5 gm/dL Platelets 159 145 - 370 x10(3)/mcL RDWSD 47.5 (*) 35.0 - 46.0 fL RDWCV 14.1 10.9 - 14.4 % MPV 11.6 9.0 - 12.0 fL NUCLEATED RED BLOOD CELLS Result Value Ref Range nRBC % Auto 0.0 nRBC Abs Auto 0.000 0.000 - 0.012 x10(3)/mcL DIFFERENTIAL, MANUAL Result Value Ref Range Neutrophil % 3 Lymphocyte % 96 Eosinophil % 1 Neutrophil Abs 3.6 1.5 - 6.3 x10(3)/mcL Neutr Abs (ANC) 3.62 1.50 - 6.30 x10(3)/mcL Lymphocyte Abs 116.0 (*) 1.0 - 3.6 x10(3)/mcL Eosinophil Abs 1.2 (*) 0.0 - 0.5 x10(3)/mcL Tot Diff Cell Ct 100 Plat Estimate Normal RBC Morphology Normal Smudge Cells Present BP 128/64 Pulse 64 Temp(Src) 36.7 ??C (98.1 ??F) (Temporal) Resp 18 Wt 75.7 kg (166 lb 14.2 oz) SpO2 99% Assessment and Plan: 1. Assessment: CLL. Counts stable, No worrisome or symptomatic adenoapthy. No B symptoms, ALC doubling time approx 1 year, No recurrent infections, no signs of AIHA or ITP. No concern for transformation. No indication for treatment at this time. Plan: [...] Fischer Oncology [facility] ONCOLOGY [place], [place] [address] (Shana hewitt) 02/11/2022 TH Visit (TeleHealth) Hematology and Ángel Fischer Oncology [facility] DR UMANA [place], [place] [address] (Shana hewitt) 02/11/2022 Infusion Hematology and Oncology 02/11/2022 Office Visit Hematology and Jazzy Armendariz R D Oncology [facility] HEMATOLOGY AND ONCOLOGY [place], [place] [address] (Wo rk) 02/22/2022 TH Visit (TeleHealth) Hematology and Yaquelin Celis Oncology E, [facility] HEMATOLOGY AND ONCOLOGY [place], [place] [address] (Wo rk) 02/25/2022 Office Visit Hematology and Ánegl Fischer Oncology [facility] ONCOLOGY [place], [place] [address] (Wo rk) 02/25/2022 Infusion Hematology and Oncology 03/10/2022 Scheduled View Only Obstetrics and Nurse, Julian COLEMAN, railways assistant 03/10/2022 Office Visit Obstetrics and Shazia Whitley, Gynecology [facility] UROGYNECOLOGY [place], [place] [address] (Wo rk) 03/11/2022 Office Visit Hematology and Ángel Fischer MD [facility] [place] [address] Oncology Alyssa Joseph[address] MEDICAL ONCOLOGY [place], [place] [id number] 03/11/2022 Infusion Hematology and Oncology 03/25/2022 Office Visit Hematology and Alyssa Joseph Oncology [address] MEDICAL ONCOLOGY [place], [place] [address] (Wo rk) 03/25/2022 Infusion Hematology and Oncology 03/31/2022 Office Visit Hematology and Alan Livingston M D [facility] HEMATOLOGY/[place] [address] Oncology Nilam So, [facility] HEMATOLOGY/[place] [address] 04/08/2022 Office Visit Hematology and Ángel Fischer MD [facility] [place] [address] Oncology Alyssa Joseph, [address] [place] [address] 04/08/2022 Infusion Hematology and Oncology documented as of this encounter Results (ABNORMAL) Lactate Dehydrogenase (02/23/2015 3:50 PM EDT) athologist Signature LDH 236 (H) 110 - 220 CERNER unit/L MILLENNIUM Specimen Anatomical Collection Method Collection Time Receive d Time (Source) Location / / Volume Laterality Blood specimen 02/23/2015 3:50 PM 015 3:56 (specimen) EDT PM EDT Resulting Agency Comment Spec In Lab Alan Livingston MD CHEMISTRY ORDERABLES Performing Organization Address City/State/[place] [address] CERNER MILLENNIUM Comprehensive metabolic panel (non-fasting) (02/23/2015 3:50 PM EDT) athologist Signature Glucose Lvl 100 65 - 199 CERNER mg/dL MILLENNIUM Comment: Diabetes: >=200 mg/dL plus symp toms BUN 16 8 - 18 mg/dL CERNER MILLENNIUM Creatinine 0.91 0.70 - 1.20 mg/dL CERNER MILL ENNIUM Comment: Please note that the pediatric reference intervals supplied above were not validated at [facility]. Results from pediatri c patients should be interpreted in conjunction to the patient's age, height and muscle mass. Sodium 144 135 - 145 mmol/L CERNER JAVI NIUM Potassium See Note 3.5 - 5.0 mmol/L CERNER JAVI NIUM Comment: Plasma Potassium result is 5.2 mmol/L, s uspect pseudohyperkalemia. ??Recheck Potassium result [...] there are any qu estions. Corrected from 5.2 mMol/L [HI] on 04:53 by Vaughn Christy. Chloride 105 98 - 107 mmol/L CERNER MILLENN IUM CO2 29 22 - 31 mmol/L CERNER MILLENNI UM Anion Gap 10 5 - 15 mmol/L CERNER MILLENNIU M Calcium 9.2 8.5 - 10.5 mg/dL CERNER JAVI NIUM Total Protein 6.6 6.1 - 8.0 gm/dL CERNER MIL LENNIUM Albumin 4.3 3.2 - 5.2 gm/dL CERNER MILLENN IUM AST 29 0 - 30 unit/L CERNER MILLENNIU M ALT 23 0 - 30 unit/L CERNER MILLENNIU M Alk Phos 62 40 - 104 unit/L CERNER MILLENN IUM Total Bilirubin 0.3 0.2 - 1.3 mg/dL CERNER M ILLENNIUM [...] the following links into your internet browser. http://[employer]/DHnkdep http://[employer]/DHMCnkf Specimen Anatomical Collection Method Collection Time Receive d Time (Source) Location / / Volume Laterality Blood specimen 02/23/2015 3:50 PM 015 3:56 (specimen) EDT PM EDT Resulting Agency Comment Spec In Lab Alan Livingston MD CHEMISTRY ORDERABLES Performing Organization Address City/State/[place] [address] [facility] documented in this encounter Visit Diagnoses Diagnosis CLL (chronic lymphocytic leukemia) Chronic lymphoid leukemia, without menti on of having achieved remission documented in this encounter Care Teams Corporate Counselor Relationship Specialty Start Date End Date Berkley Madirgal MD PCP - General 04/13/10 02/15/18 AYLEEN Katarina [address] [place] [address] documented as of this encounter
--- OUTSIDE RECORDS SUMMARY | 2022-02-11 01:12 | XMS_ITS | Encounter Summary ---
:1950 Author Organization [facility] [place] [address] Care Team Providers Name Role Phone Berkley Madrigal MD Primary Care Provider Reason for Visit Reason Comments Diabetes Encounter Details Date Type Department Care Team Description 12/22/2014 Office Visit Endocrinology at [facility] C Chaz, Maribel Sanchez, Hypoglycemia [facility] [place] [address] [facility] [phone] ENDOCRINOLOGY DE PT. [place], [place] [address] (Wo rk) Social History Tobacco [...] Sign Reading Time Taken Comments Blood Pressure 131/74 12/22/2014 1:11 PM EDT Pulse 73 12/22/2014 1:11 PM EDT Temperature - - Respiratory Rate - - Oxygen Saturation - - Inhaled Oxygen Concentration - - Weight 76.4 kg (168 lb 6.4 oz) 12/22/2014 1:11 PM EDT Height 163.8 cm (5' 4.5) 12/22/2014 1:11 PM EDT Body Mass Index 28.46 12/22/2014 1:11 PM EDT documented in this encounter Progress Notes Maribel Ware, ACCESSIONER - 12/22/2014 1:37 PM EDT DATE OF VISIT: 12/22/2014 REASON FOR VISIT: Annual visit for type 2 DM with widely fluctuating glucose levels. Reminder: prefers to be called Anahi. BRIEF HISTORY: Presents with friend. States she continues to have hypoglycemia symptoms and then hyperglycemia symptoms. She states she could not tolerate the Precose because of GI symptoms. SBGM: Occasionally, when she has symptoms. She states she knows when her glucose levels are too low or too high. 24-HOUR MEAL PLAN: She continues to eat every two hours to avoid a low glucose level, and she does have some carbohydrates with her protein to try to keep the glucose levels from causing hypoglycemia symptoms. PHYSICAL ACTIVITY: Walking the dog. PAST MEDICAL HISTORY: Significant for CLL. REVIEW OF SYSTEMS: Depression and mood: Overall is doing okay. Eyes: History of retinal tear not related to diabetes. No recent headaches. No chest pain or shortness of breath. GI symptoms: She takes medication for GERD. Sleep pattern is usually okay. PHYSICAL EXAMINATION: Appearance: She appears in excellent health. Weight is 168 pounds, she has gained 7 pounds in the past year. Blood pressure is 131/74. Eyes: No retinopathy with green light exam. Neck: No thyromegaly or lymphadenopathy. Heart: Regular rate and rhythm. No murmurs. Lungs are clear to auscultation. Feet: She has calluses on first toes medial aspects that she pairs down. Pulses are normal. Neuro: Normal sensation to 10 g of pressure. LABORATORY DATA: No labs were done today. Labs were done recently at PCP's office. LDL is 111. Had side effects when she took a statin. HDL is high at 73. Glucose levels are always in the 80s, nonfasting. Hemoglobin A1c in July= 6.0%. IMPRESSION AND PLAN: Diabetes, history of diabetes type 2, but then lost a large amount of weight and now has problems with hypoglycemia controlled with a healthy meal plan. Does not want to take metformin because when her mother took it she had severe B12 deficiency and almost . Return to office in one year. The patient will have all her labs done at her local PCP's office, and she brings copies to the endocrinology annual appointment. This was a 27-minute office visit with 26 minutes spent counseling [id number] with the patient and friend in the management of glucose levels specifically preventing hypoglycemia and cautioning against further weight gain. documented in this encounter Plan of Treatment Upcoming Encounters Date Type Specialty Care Team Description 02/11/2022 Scheduled View Only Hematology and Ángel Fischer Oncology [facility] DR [place] [address] (Shana hewitt) 02/11/2022 TH Visit (TeleHealth) Ángel Hill Oncology [facility] DR [place] [address] (Wo rk) 02/11/2022 Infusion Hematology and Oncology 02/11/2022 Office Visit Hematology and Jazzy Armendariz R D [facility] HEMATOLOGY AND ONCOLOGY [place], [place] [address] (Wo rk) 02/22/2022 TH Visit (TeleHealth) Hematology and Yaquelin Celis Oncology E, [facility] HEMATOLOGY AND ONCOLOGY [place], [place] [address] (Wo rk) 02/25/2022 Office Visit Hematology and Ángel Fischer Oncology [facility] ONCOLOGY [place], [place] [address] (Wo rk) 02/25/2022 Infusion Hematology and Oncology 03/10/2022 Scheduled View Only Obstetrics and Nurse, Julian COLEMAN, applications support engineer 03/10/2022 Office Visit Obstetrics and Shazia Whitley, Gynecology [facility] UROGYNECOLOGY [place], [place] [address] (Wo rk) 03/11/2022 Office Visit Hematology and Ángel Fischer MD [facility] [place] [address] Oncology Alyssa Joseph, [address] MEDICAL ONCOLOGY [place], [place] [id number] 03/11/2022 Infusion Hematology and Oncology 03/25/2022 Office Visit Hematology and Alyssa Joseph, Oncology [address] MEDICAL ONCOLOGY [place], [place] [phone] (Wo rk) 03/25/2022 Infusion Hematology and Oncology 03/31/2022 Office Visit Hematology and Alan Livingston M D [facility] HEMATOLOGY/[place] [address] Oncology Nilam So, ACCESSIONER [facility] DR HEMATOLOGY/[place] [address] 04/08/2022 Office Visit Hematology and Ángel Fischer MD [facility] [place] [address] Oncology Alyssa Joseph, [address] MEDICAL ONCOLOGY [place], [place] [address] 04/08/2022 Infusion Hematology and Oncology documented as of this encounter Visit Diagnoses Diagnosis Hypoglycemia Hypoglycemia, unspecified documented in this encounter Care Teams Office Machine Installer Relationship Specialty Start Date End Date Berkley Madrigal MD PCP - General 04/13/10 02/15/18 [place]EN Bray [address] [place], [place] [id number] documented as of this encounter
--- OUTSIDE RECORDS SUMMARY | 2022-02-11 01:12 | XMS_ITS | Encounter Summary ---
:1950 Author Organization [facility] Address [facility] [place] [address] Care Team Providers Name Role Phone Berkley Madrigal MD Primary Care Provider Encounter Details Date Type Department Care Team Description 08/08/2014 Orders Only Hematology and Alan Livingston M D Chronic lymphocytic Oncology at [facility] leukemia not having [facility] DR achieved remission Cesar HEMATOLOGY/[place] [address] Y DEPT. [phone] [place], [place] [address] Social History Tobacco Use Types [...] 02/11/2022 Scheduled View Only Hematology and Ángel Fischre Oncology [facility] ONCOLOGY [place], [place] [address] (Wo rk) 02/11/2022 TH Visit (TeleHealth) Ángel Hill Oncology [facility] DR UMANA [place], [place] [address] (Wo rk) 02/11/2022 Infusion Hematology and Oncology 02/11/2022 Office Visit Hematology and Jazzy Armendariz R D Oncology [facility] CESAR HEMATOLOGY AND ONCOLOGY [place], [place] [address] (Wo rk) 02/22/2022 TH Visit (TeleHealth) Hematology and Yaquelin Celis Oncology E, [facility] HEMATOLOGY AND ONCOLOGY [place], [place] [address] (Wo rk) 02/25/2022 Office Visit Ángel Hill Oncology [facility] DR UMANA [place], [place] [address] (Wo rk) 02/25/2022 Infusion Hematology and Oncology 03/10/2022 Scheduled View Only Obstetrics and Nurse, Julian COLEMAN, professor of religion 03/10/2022 Office Visit Obstetrics and Shazia Whitley, Gynecology [facility] UROGYNECOLOGY [place], [place] [address] (Wo rk) 03/11/2022 Office Visit Hematology and Ángel Fischer MD [facility] [place] [address] Oncology [address]lyss[address] ONCOLOGY [place], [place] [id number] 03/11/2022 Infusion Hematology and Oncology 03/25/2022 Office Visit Hematology and Alyssa Joseph, Oncology [address] ONCOLOGY [place], [place] [phone] (Wo rk) 03/25/2022 Infusion Hematology and Oncology 03/31/2022 Office Visit Hematology and Alan Livingston M D [facility] DR HEMATOLOGY/[place] [address] [facility] [address] 04/08/2022 Office Visit Hematology and Ángel Fischer MD [facility] [place] [address] Oncology Alyssa Joseph[address] ONCOLOGY [place], [place] [phone] 04/08/2022 Infusion Hematology and Oncology documented as of this encounter Visit Diagnoses Diagnosis Chronic lymphocytic leukemia not having achieved remission documented in this encounter Care Teams Appeals Board Referee Relationship Specialty Start Date End Date Berkley Madrigal MD PCP - General 04/13/10 02/15/18 AYLEEN Bray [address] [place] [address] documented as of this encounter
--- OUTSIDE RECORDS SUMMARY | 2022-02-11 01:12 | XMS_ITS | Encounter Summary ---
:1950 Author Organization [facility] [place] [address] Care Team Providers Name Role Phone Berkley Madrigal MD Primary Care Provider Encounter Details Date Type Department Care Team Description 02/23/2015 Laboratory Appointment Lab 3L Zaria Roman CLL ([facility] lymphocytic leukemia) [place] [id number] Social History Tobacco Use Types Packs/Day Years [...] Kimbrough Oncology [facility] ONCOLOGY [place], [place] [address] (Wo rk) 02/11/2022 TH Visit (TeleHealth) Hematology Ángel Kimbrough Oncology [facility] DR UMANA [place], [place] [address] (Wo rk) 02/11/2022 Infusion Hematology and Oncology 02/11/2022 Office Visit Hematology and Jazzy Armendariz R D Oncology [facility] HEMATOLOGY AND ONCOLOGY [place], [place] [address] (Wo rk) 02/22/2022 TH Visit (TeleHealth) Hematology and Yaquelin Celis Oncology [facility] HEMATOLOGY AND ONCOLOGY [place], [place] [address] (Wo rk) 02/25/2022 Office Visit Ángel Hill Oncology [facility] ONCOLOGY [place], [place] [address] (Wo rk) 02/25/2022 Infusion Hematology and Oncology 03/10/2022 Scheduled View Only Obstetrics and Nurse, Julian COLEMAN, photogrammetric tech 03/10/2022 Office Visit Obstetrics and hSazia Whitley, Gynecology [facility] UROGYNECOLOGY [place], [place] [address] (Wo rk) 03/11/2022 Office Visit Hematology and Ángel Fischer MD [facility] [place] [address] On[address] MEDICAL ONCOLOGY [place], [place] [id number] 03/11/2022 Infusion Hematology and Oncology 03/25/2022 Office Visit Hematology and Alyssa Joseph, Oncology [address] MEDICAL ONCOLOGY [place], [place] [id number] (Wo rk) 03/25/2022 Infusion Hematology and Oncology 03/31/2022 Office Visit Hematology and Alan Livingston M D [facility] DR HEMATOLOGY/[place] [address] [facility] [address] 04/08/2022 Office Visit Hematology and Ángel Fischer MD [facility] [place] [address] Oncology Alyss[address] Joseph[address] MEDICAL ONCOLOGY [place], [place] [id number] 04/08/2022 Infusion Hematology and Oncology documented as of this encounter Procedures Procedure Name Priority Date/Time Associated Comments Diagnosis SCAN, PERIPHERAL BLOOD STAT 02/23/2015 3:50 PM Results for this EDT procedure are i n the results section. NUCLEATED RED BLOOD STAT 02/23/2015 3:50 PM Re sults for this CELLS EDT procedure are i n the results section. HEMOGRAM STAT 02/23/2015 3:50 PM CLL (chronic Results f or this EDT lymphocytic procedure are i n leukemia) the results section. DIFFERENTIAL, STAT 02/23/2015 3:50 PM CLL (chronic Results for this AUTOMATED EDT lymphocytic procedure are i n leukemia) the results section. CBC (WITH DIFF) STAT 02/23/2015 3:50 PM CLL (chronic EDT lymphocytic leukemia) LACTATE DEHYDROGENASE STAT 02/23/2015 3:50 PM CLL (chronic Results for this EDT lymphocytic procedure are i n leukemia) the results section. HEMOGLOBIN A1C STAT 02/23/2015 3:50 PM Results for this EDT procedure are i n the results section. COMPREHENSIVE STAT 02/23/2015 3:50 PM CLL (chronic Results for this METABOLIC PANEL EDT lymphocytic procedure ar e in (NON-FASTING) leukemia) the results section. documented in this encounter Results (ABNORMAL) Hemoglobin A1c (02/23/2015 3:50 PM EDT) Analysis Performed At [facility] Time Signature Hemoglobin A1C 6.1 (H) 4.3 - 5.6 CERNER % MILLENNIUM Comment: Reference Range: 4.3 - 5.6% [...] Mellitus, Diabetes Care 2013; 36: Suppl. 1, L77-99 Est Avg Gluc 128 mg/dL CERNER MILLENNIUM Comment: eAG equivalents for HbA1c percentages: HbA1c(%) ?eAG(mg/dL) 6.0 ?126 6.5 ?140 7.0 ?154 7.5 ?169 8.0 ?183 8.5 ?197 9.0 ?212 9.5 ?226 10.0 ? 240 Limitations: The eAG calculation has not been validated on women, individuals below 18 years old and above 70 years old, and individuals with hemoglobinopathies. Additional resources are available on [facility] website: [email or web address]/[email or web address]adacalc Lázaro MIX, Lolis J, Reece R, et al. ??Tr anslating the A1C assay into estimated average glucose values. ??Diabetes Care 2008:31(8):1857-7577. Specimen Anatomical Collection Method Collection Time Receive d Time (Source) Location / / Volume Laterality Blood specimen Venous Draw / 02/23/2015 3:50 PM 2014 5:37 (specimen) Unknown EDT PM EDT Resulting Agency Comment Spec In Lab Alan Livingston MD CHEMISTRY ORDERABLES Performing Organization Address City/[place] [facility]/ZIP Code Phon e Number [address] CERNER MILLENNIUM Nucleated Red Blood Cells (02/23/2015 3:50 PM EDT) P athologist Signature nRBC % Auto 0.0 % CERNER MILLENNIUM nRBC Abs Auto 0.000 0.000 - CERNER 0.012 MILLENNIUM x10(3)/mcL Specimen Anatomical Collection Method Collection Time Receive d Time (Source) Location / / Volume Laterality Blood specimen 02/23/2015 3:50 PM 015 3:56 (specimen) EDT PM EDT Resulting Agency Comment Spec In Lab Alan Livingston MD HEMATOLOGY ORDERABLES Performing Organization Address City/[place] [facility]/ZIP Code Phon e Number [address] CERNER MILLENNIUM Scan, Peripheral Blood (02/23/2015 3:50 PM EDT) athologist Signature Plat Estimate Normal CERNER MILLENNIUM RBC Morphology Normal CERNER MILLENNIUM Specimen Anatomical Collection Method Collection Time Receive d Time (Source) Location / / Volume Laterality Blood specimen 02/23/2015 3:50 PM 015 3:56 (specimen) EDT PM EDT Resulting Agency Comment Spec In Lab Alan Livingston MD HEMATOLOGY ORDERABLES Performing Organization Address City/State/ZIP Code Phon e Number [place] [id number] CERNER MILLENNIUM (ABNORMAL) Differential, Automated (02/23/2015 3:50 PM EDT) [facility] gist Method Time Signature Neutrophils % 3.1 % CERNER MILLENNIUM Neutr Abs (ANC) 3.82 1.50 - CERNER 6.30 MILLENNIUM x10(3)/mc L Lymphocytes % 94.8 % CERNER MILLENNIUM Lymphocytes Abs 117.0 (H) 1.0 - 3.6 CERNER x10(3)/mc MILLENNIUM L Monocytes % 1.4 % CERNER MILLENNIUM Monocyte Abs 1.8 (H) 0.2 - 1.0 CERNER x10(3)/mc MILLENNIUM [...] Claudia Gran Abs 0.23 (H) 0.00 - 0.05 x10(3)/mcL CER NER MILLENNIUM Specimen Anatomical Collection Method Collection Time Receive d Time (Source) Location / / Volume Laterality Blood specimen 02/23/2015 3:50 PM 015 3:56 (specimen) EDT PM EDT Resulting Agency Comment Spec In Lab Alan Livingston MD HEMATOLOGY ORDERABLES Performing Organization Address City/State/[place] [address] CERNER MILLENNIUM (ABNORMAL) Hemogram (02/23/2015 3:50 PM EDT) athologist Signature WBC 123.4 4.0 - 10.0 CERNER (Critical) x10(3)/mcL MILLENNIUM Comment: PLEASE NOTE: PATIENTS WITH WBC >100,000 MAY HAVE FALSELY ELEVATED POTASSIUM LEVELS. [facility] IF THERE ARE ANY QUESTIONS. This result has been called to HO ONEAL by Alejandrina Nevarez on 02.23.15 at 16:35, and has bee n read back (CALLED BY AB). RBC 4.48 3.93 - 5.22 x10(6)/mcL CERNER MILLENNIUM Hemoglobin 13.5 11.2 - 15.7 gm/dL CERNER MILL ENNIUM Hematocrit 42.6 34.0 - 45.0 % CERNER MILLENNI UM MCV 95.1 (H) 79.0 - 94.0 fL CERNER MILLENNI UM MCH 30.1 26.6 - 32.2 pg CERNER MILLENNI UM MCHC 31.7 (L) 32.0 - 36.5 gm/dL CERNER MILLE NNIUM Platelets 159 145 - 370 x10(3)/mcL CERNER MS LLENNIUM RDWSD 47.9 (H) 35.0 - 46.0 fL CERNER MILLENNI [...] Organization Address City/State/[place] [address] CERNER MILLENNIUM (ABNORMAL) Lactate Dehydrogenase (02/23/2015 3:50 PM EDT) athologist Signature LDH 236 (H) 110 - 220 CERNER unit/L MILLENNIUM Specimen Anatomical Collection Method Collection Time Receive d Time (Source) Location / / Volume Laterality Blood specimen 02/23/2015 3:50 PM 015 3:56 (specimen) EDT PM EDT Resulting Agency Comment Spec In Lab Alan Livingston MD CHEMISTRY ORDERABLES Performing Organization Address City/State/[place] [address] CERNER MILLENNIUM Comprehensive metabolic panel (non-fasting) (02/23/2015 3:50 PM EDT) athologist Signature Glucose Lvl 100 65 - 199 CERNER mg/dL MILLENNIUM Comment: Diabetes: >=200 mg/dL plus symp toms BUN 16 8 - 18 mg/dL CERNER MILLENNIUM Creatinine 0.91 0.70 - 1.20 mg/dL CERNER MILL ENNIUM Comment: Please note that the pediatric reference intervals supplied above were not validated at [facility]. Results from pediatri c patients should be [...] M Calcium 9.2 8.5 - 10.5 mg/dL CERNENITA JAVI NIUM Total Protein 6.6 6.1 - 8.0 gm/dL CERNENITA MIL LENNIUM Albumin 4.3 3.2 - 5.2 gm/dL CERNER MILLENN IUM AST 29 0 - 30 unit/L CERNER MILLENNIU M ALT 23 0 - 30 unit/L CERNER MILLENNIU M Alk Phos 62 40 - 104 unit/L CERNER MILLENN IUM Total Bilirubin 0.3 0.2 - 1.3 mg/dL YANELIS M ILLENNIUM Bili, Direct 0.1 0.0 - 0.3 mg/dL CERNENITA MILL ENNIUM Estimated GFR >60 >=60 CERNER [...] the following links into your internet browser. [email or web address] [email or web address] Specimen Anatomical Collection Method Collection Time Receive d Time (Source) Location / / Volume Laterality Blood specimen 02/23/2015 3:50 PM 015 3:56 (specimen) EDT PM EDT Resulting Agency Comment Spec In Lab Alan Livingston MD CHEMISTRY ORDERABLES Performing Organization Address City/State/[place] [address] YANELIS HEARNIUM documented in this encounter Visit Diagnoses Diagnosis CLL (chronic lymphocytic leukemia) Chronic lymphoid leukemia, without menti on of having achieved remission documented in this encounter Care Teams Neonatal Icu Coordinator Relationship Specialty Start Date End Date Berkley Madrigal MD PCP - General 04/13/10 02/15/18 AYLEEN D [address] [place] [address] documented as of this encounter
--- OUTSIDE RECORDS SUMMARY | 2022-02-11 01:12 | XMS_ITS | Encounter Summary ---
:1950 Author Organization [facility] [address] Care Team Providers Name Role Phone Berkley Madrigal MD Primary Care Provider Reason for Visit Reason Comments Follow-up Encounter Details Date Type Department Care Team Description 02/23/2015 Office Visit Hematology and Nilam So APRN [facility] DR HEMATOLOGY/[place] [address] Type 2 diabetes mellitus without complic ation; Oncology at [facility] Blayne Guillaume MD [facility] DR HEMATOLOGY/[place] [address] CLL (chronic lymphocytic leukemia); [facility] [place] [address] Social History Tobacco Use Types Packs/Day Years [...] Sign Reading Time Taken Comments Blood Pressure 140/78 02/23/2015 4:18 PM EDT Pulse 80 02/23/2015 4:18 PM EDT Temperature 36.4 ??C (97.5 ??F) 02/23/2015 4:18 PM EDT Respiratory Rate 16 02/23/2015 4:18 PM EDT Oxygen Saturation 99% 02/23/2015 4:18 PM EDT Inhaled Oxygen Concentration - - Weight 76.7 kg (169 lb 1.5 oz) 02/23/2015 4:18 PM EDT Height - - Body Mass Index 28.58 12/22/2014 1:11 PM EDT documented in this encounter Progress Notes Nilam So, [employer] TECHNICIAN - 02/23/2015 4:05 PM EDT Subjective: Patient ID: Carol Keller is a 64 y.o. female here for f/u of CLL Patient Active Problem List Diagnosis ??? AK (actinic keratosis) ??? History of SCC (squamous cell carcinoma) of skin ??? Verruca vulgaris ??? Macular pucker, right eye ??? Horseshoe retinal tear, right eye ??? SVT (supraventricular tachycardia) ??? Urinary incontinence, overflow ??? GERD (gastroesophageal reflux disease) ??? Diabetes mellitus ??? CLL (chronic lymphocytic leukemia) Dx 12/28 w/ WBC 27k P-53, CD38 and zap -70 negative. Cytogenetics 13 deletion (favorable prognosis) Observation only DIANE Christian is doing OK - her biggest struggle is her blood sugar - mostly hypoglycemia - eating more small snacks frequently helps. Last Hg AIC was 6. Energy is good. Classes are good. She is planning on retiring October of 2016. She denies any new lumps or bumps, no drenching night sweats. Energy is good. She has had no recent infections. Review of Systems Constitutional: Negative. [...] inguinal and no supraclavicular adenopathy present. bilat anterior and cervical nodes no bigger than 1 cm Neurological: She is alert and oriented to person, place, and time. Skin: Skin is warm and dry. Psychiatric: She has a normal mood and affect. Recent Results (from the past 72 hour(s)) Comprehensive metabolic panel (non-fasting) Result Value Ref Range Glucose Lvl 100 65 - 199 mg/dL BUN 16 8 - 18 mg/dL Creatinine 0.91 0.70 - 1.20 mg/dL Sodium 144 135 - 145 mmol/L Potassium See Note 3.5 - 5.0 mmol/L Chloride 105 98 - 107 mmol/L CO2 29 22 - 31 mmol/L Anion Gap 10 5 - 15 mmol/L Calcium 9.2 8.5 - 10.5 mg/dL Total Protein 6.6 6.1 - 8.0 gm/dL Albumin 4.3 3.2 - 5.2 gm/dL AST 29 0 - 30 unit/L ALT 23 0 - 30 unit/L Alk Phos 62 40 - 104 unit/L Total Bilirubin 0.3 0.2 - 1.3 mg/dL Bili, Direct 0.1 0.0 - 0.3 mg/dL Estimated GFR >60 >=60 Lactate Dehydrogenase Result Value Ref Range LDH 236 (H) 110 - 220 unit/L Hemogram Result Value Ref Range WBC 123.4 (CRIT) 4.0 - 10.0 x10(3)/mcL RBC 4.48 3.93 - 5.22 x10(6)/mcL Hemoglobin 13.5 11.2 - 15.7 gm/dL Hematocrit 42.6 34.0 - 45.0 % MCV 95.1 (H) 79.0 - 94.0 fL MCH 30.1 26.6 - 32.2 pg MCHC 31.7 (L) 32.0 - 36.5 gm/dL Platelets 159 145 - 370 x10(3)/mcL RDWSD 47.9 (H) 35.0 - 46.0 fL RDWCV 14.2 10.9 - 14.4 % MPV 11.7 9.0 - 12.0 fL Differential, Automated Result Value Ref Range Neutrophils % 3.1 % Neutr Abs (ANC) 3.82 1.50 - 6.30 x10(3)/mcL Lymphocytes % 94.8 % Lymphocytes Abs 117.0 (H) 1.0 - 3.6 x10(3)/mcL Monocytes % 1.4 % Monocyte Abs 1.8 (H) 0.2 - 1.0 x10(3)/mcL Eosinophils % 0.2 % Eosinophils Abs 0.2 0.0 - 0.5 x10(3)/mcL Basophils % 0.3 % Basophils Abs 0.4 (H) 0.0 - 0.2 x10(3)/mcL Immature Gran % 0.20 % Claudia Gran Abs 0.23 (H) 0.00 - 0.05 x10(3)/mcL Scan, Peripheral Blood Result Value Ref Range Plat Estimate Normal RBC Morphology Normal Nucleated Red Blood Cells Result Value Ref Range nRBC % Auto 0.0 % nRBC Abs Auto 0.000 0.000 - 0.012 x10(3)/mcL Hemoglobin A1c Result Value Ref Range Hemoglobin A1C 6.1 (H) 4.3 - 5.6 % Est Avg Gluc 128 mg/dL BP 140/78 mmHg Pulse 80 Temp(Src) 36.4 ??C (97.5 ??F) (Temporal) Resp 16 Wt 76.7 kg (169 lb 1.5 oz) SpO2 99% Assessment and Plan: 1. Assessment: CLL. Counts stable, No worrisome or symptomatic adenoapthy. No B symptoms, ALC doubling time approx 3 years, No recurrent infections, no signs of AIHA or ITP. No concern for transformation. No indication for treatment at this time. Pneumovax UTD - plans ot get annual flu vaccine. Plan: We will continue to monitor in hematology clinic. Reviewed CLL and indications for treatment. Carol will return to hematology in 3 months. she will call if there are any problems before then. documented in this encounter Plan of Treatment Upcoming Encounters Date Type Specialty Care Team Description 02/11/2022 Scheduled View Only Hematology and Ángel Fischer, Oncology [facility] ONCOLOGY [place], [place] [address] (Shana hewitt) 02/11/2022 TH Visit (TeleHealth) Hematology and Ángel Fischer Oncology [facility] ONCOLOGY [place], [place] [address] (Shana hewitt) 02/11/2022 Infusion Hematology and Oncology 02/11/2022 Office Visit Hematology and Jazzy Armendariz R D Oncology [facility] DRIVE HEMATOLOGY AND ONCOLOGY [place], [place] [address] (Wo rk) 02/22/2022 TH Visit (TeleHealth) Hematology and Yaquelin Celis Oncology E, [facility] HEMATOLOGY AND ONCOLOGY [place], [place] [address] (Wo rk) 02/25/2022 Office Visit Hematology and Ángel Fischer Oncology [facility] ONCOLOGY [place], [place] [address] (Wo rk) 02/25/2022 Infusion Hematology and Oncology 03/10/2022 Scheduled View Only Obstetrics and Nurse, Julian COLEMAN, supervisor knitting 03/10/2022 Office Visit Obstetrics and Shazia Whitley Gynecology [facility] UROGYNECOLOGY [place], [place] [address] (Wo rk) 03/11/2022 Office Visit Hematology and Ángel Fischer MD [facility] [place] [address] Oncology Alyssa Joseph, [address] MEDICAL ONCOLOGY [place], [place] [address] 03/11/2022 Infusion Hematology and Oncology 03/25/2022 Office Visit Hematology and Alyssa Joseph Oncology [address] MEDICAL ONCOLOGY [place], [place] [id number] (Wo rk) 03/25/2022 Infusion Hematology and Oncology 03/31/2022 Office Visit Hematology and Alan Livingston M D [facility] HEMATOLOGY/[place] [address] Oncology Nilam So, [facility] DR HEMATOLOGY/[place] [address] 04/08/2022 Office Visit Hematology and Ángel Fischer MD [facility] [place] [address] Oncology Alyssa Joseph[address] [place] [address] 04/08/2022 Infusion Hematology and Oncology documented as of this encounter Results Lactate Dehydrogenase (05/25/2015 1:43 PM EST) athologist Signature LDH 217 110 - 220 CERNER unit/L MILLENNIUM Specimen Anatomical Collection Method Collection Time Receive d Time (Source) Location / / Volume Laterality Blood specimen 05/25/2015 1:43 PM 016 1:49 (specimen) EST PM EST Resulting Agency Comment Spec In Lab Alan Livingston MD CHEMISTRY ORDERABLES Performing Organization Address City/State/[place] [address] CERNER MILLENNIUM Comprehensive metabolic panel (non-fasting) (05/25/2015 1:43 PM EST) athologist Signature Glucose Lvl 100 65 - 199 CERNER mg/dL MILLENNIUM Comment: Diabetes: >=200 mg/dL plus symp toms BUN 18 8 - 18 mg/dL CERNER MILLENNIUM Creatinine 0.87 0.70 - 1.20 mg/dL CERNER MILL ENNIUM Comment: Please note that the pediatric reference intervals supplied above were not validated at [facility]. Results from pediatri c patients should [...] on serum sample. called correction to roverto whitney 09/04 14:48 Please note: ??Patients with WBC [...] the following links into your internet browser. [email or web address] [email or web address] Specimen Anatomical Collection Method Collection Time Receive d Time (Source) Location / / Volume Laterality Blood specimen 05/25/2015 1:43 PM 016 1:49 (specimen) EST PM EST Resulting Agency Comment Spec In Lab Alan Livingston MD CHEMISTRY ORDERABLES Performing Organization Address City/State/[place] [address] [facility] documented in this encounter Visit Diagnoses Diagnosis Type 2 diabetes mellitus without complic ation CLL (chronic lymphocytic leukemia) Chronic lymphoid leukemia, without menti on of having achieved remission Chronic lymphocytic leukemia Chronic lymphoid leukemia, without menti on of having achieved remission documented in this encounter Care Teams Accounting Machine Operator Relationship Specialty Start Date End Date Berkley Madrigal MD PCP - General 04/13/10 02/15/18 AYLEEN Bray [address] [place] [address] documented as of this encounter
--- OUTSIDE RECORDS SUMMARY | 2022-02-11 01:12 | XMS_ITS | Encounter Summary ---
:1950 Author Organization [facility] [place] [address] Care Team Providers Name Role Phone Berkley Madrigal MD Primary Care Provider Encounter Details Date Type Department Care Team Description 09/28/2015 Office Visit Hematology and Alan Livingston M D [facility] DR HEMATOLOGY/[place] [address] Hyperglycemia; Oncology at [facility] Nilam So APRN [facility] DR HEMATOLOGY/[place] [address] [place] [id number] Social History Tobacco Use Types Packs/Day Years [...] Sign Reading Time Taken Comments Blood Pressure 133/64 09/28/2015 3:11 PM EDT Pulse 67 09/28/2015 3:11 PM EDT Temperature 36.5 ??C (97.7 ??F) 09/28/2015 3:11 PM EDT Respiratory Rate 16 09/28/2015 3:11 PM EDT Oxygen Saturation 97% 09/28/2015 3:11 PM EDT Inhaled Oxygen Concentration - - Weight 77.7 kg (171 lb 6.4 oz) 09/28/2015 3:11 PM EDT Height 163.8 cm (5' 4.5) 09/28/2015 3:11 PM EDT Body Mass Index 28.97 09/28/2015 3:11 PM EDT documented in this encounter Progress Notes Nilam So, LINOLEUM MECHANIC - 09/28/2015 3:22 PM EDT Subjective: Patient ID: Carol Keller [...] only Pneumovax 2014 HPI 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 She is looking forward to a visit to see her Daughter in [facility] this summer. Her energy has been good. No new lumps or bumps. No drenching night sweats. No recent infections. Her only concern continues to be her hypoglycemia - she does have a visit coming up with endocrinology - she does eat Q2 hours to control - but is having problems with weight gain with this. Review of Systems Constitutional: Negative. HENT: Negative. [...] Neck: Normal range of motion. Neck supple. 1-2 cm bilat cervical nodes Cardiovascular: Normal rate, regular rhythm and normal [...] (non-fasting) Result Value Ref Range Glucose Lvl 97 65 - 199 mg/dL BUN 16 8 - 18 mg/dL Creatinine 1.05 0.70 - 1.20 mg/dL Sodium 143 135 - 145 mmol/L Potassium See Note 3.5 - 5.0 mmol/L Chloride 106 98 - 107 mmol/L CO2 27 22 - 31 mmol/L Anion Gap 10 5 - 15 mmol/L Calcium 8.8 8.5 - 10.5 mg/dL Total Protein 6.2 6.1 - 8.0 gm/dL Albumin 4.2 3.2 - 5.2 gm/dL AST 23 0 - 30 unit/L ALT 15 0 - 30 unit/L Alk Phos 58 40 - 104 unit/L Total Bilirubin 0.2 0.2 - 1.3 mg/dL Bili, Direct 0.1 0.0 - 0.3 mg/dL Estimated GFR 52 (L) >=60 Hemogram Result Value Ref Range WBC 121.7 (CRIT) 4.0 - 10.0 x10(3)/mcL RBC 4.32 3.93 - 5.22 x10(6)/mcL Hemoglobin 13.1 11.2 - 15.7 gm/dL Hematocrit 40.4 34.0 - 45.0 % MCV 93.5 79.0 - 94.0 fL MCH 30.3 26.6 - 32.2 pg MCHC 32.4 32.0 - 36.5 gm/dL Platelets 162 145 - 370 x10(3)/mcL RDWSD 49.3 (H) 35.0 - 46.0 fL RDWCV 14.7 (H) 10.9 - 14.4 % MPV 11.7 9.0 - 12.0 fL Differential, Automated Result Value Ref Range Neutrophils % 3.6 % Neutr Abs (ANC) 4.29 1.50 - 6.30 x10(3)/mcL Lymphocytes % 93.9 % Lymphocytes Abs 114.3 (H) 1.0 - 3.6 x10(3)/mcL Monocytes % 1.7 % Monocyte Abs 2.1 (H) 0.2 - 1.0 x10(3)/mcL Eosinophils % 0.3 % Eosinophils Abs 0.3 0.0 - 0.5 x10(3)/mcL Basophils % 0.3 % Basophils Abs 0.4 (H) 0.0 - 0.2 x10(3)/mcL Immature Gran % 0.20 % Claudia Gran Abs 0.28 (H) 0.00 - 0.05 x10(3)/mcL Scan, Peripheral Blood Result Value Ref Range Plat Estimate Normal RBC Morphology Normal Atypical Lymph Moderate Smudge Cells Present Giant Platelets Less than 1 /HPF Nucleated Red Blood Cells Result Value Ref Range nRBC % Auto 0.0 % nRBC Abs Auto 0.000 0.000 - 0.012 x10(3)/mcL BP 133/64 mmHg Pulse 67 Temp(Src) 36.5 ??C (97.7 ??F) (Temporal) Resp 16 Ht 163.8 cm (5' 4.5) Wt 77.747 kg (171 lb 6.4 oz) BMI 28.98 kg/m2 SpO2 97% Assessment and Plan: 1. Assessment: CLL. Counts stable, No worrisome or symptomatic adenoapthy. No B symptoms, ALC doubling time stable over the past year, No recurrent infections, no signs of AIHA or ITP. No concern for transformation. No indication for treatment at this time. Reviewed CLL and indications for therapy, Also reviewed inherent increase risk for infection. I did give her a Z-pack Rx to take with her on vacation this summer - she knows to call for any infectious symptoms before taking it. Influenza = UTD Pneumococcal - UTD Plan: We will continue to monitor in hematology clinic. Reviewed CLL and indications for treatment. Carol will return to hematology in 4 months. Will add in Hg AIC at next vivist which will save her a venipuncture. she will call if there are any problems before then. documented in this encounter Plan of Treatment Upcoming Encounters Date Type Specialty Care Team Description 02/11/2022 Scheduled View Only Hematology and Ángel Fischer, Oncology [facility] ONCOLOGY [place], [place] [address] (Wo rk) 02/11/2022 TH Visit (TeleHealth) Hematology Ángel Kimbrough Oncology [facility] ONCOLOGY [place], [place] [address] (Wo rk) 02/11/2022 Infusion Hematology and Oncology 02/11/2022 Office Visit Hematology and Jazzy Armendariz R D [facility] DRIVE HEMATOLOGY AND ONCOLOGY [place], [place] [address] (Wo rk) 02/22/2022 TH Visit (TeleHealth) Hematology and Yaquelin Celis Oncology E, [facility] HEMATOLOGY AND ONCOLOGY [place], [place] [address] (Wo rk) 02/25/2022 Office Visit Hematology Ángel Kimbrough Oncology [facility] ONCOLOGY [place], [place] [address] (Wo rk) 02/25/2022 Infusion Hematology and Oncology 03/10/2022 Scheduled View Only Obstetrics and Nurse, Julian COLEMAN, exchange clerk 03/10/2022 Office Visit Obstetrics and Shazia Whitley, Gynecology [facility] UROGYNECOLOGY [place], [place] [address] (Wo rk) 03/11/2022 Office Visit Ángel Hill MD [facility] [place] [address] Oncology Alyssa Joseph, [address] MEDICAL ONCOLOGY [place], [place] [id number] 03/11/2022 Infusion Hematology and Oncology 03/25/2022 Office Visit Hematology and Alyssa Joseph, Oncology [address] MEDICAL ONCOLOGY [place], [place] [id number] (Wo rk) 03/25/2022 Infusion Hematology and Oncology 03/31/2022 Office Visit Hematology and Alan Livingston M D [facility] DR HEMATOLOGY/[place] [address] Oncology Nilam So, [facility] DR HEMATOLOGY/[place] [address] 04/08/2022 Office Visit Hematology and Ángel Fischer MD [facility] [place] [address] Oncology Alyssa Joseph[address] [place] [address] 04/08/2022 Infusion Hematology and Oncology documented as of this encounter Results (ABNORMAL) Hemoglobin A1c (02/01/2016 2:37 PM EDT) Analysis Performed At [facility] Time Signature Hemoglobin A1C 6.0 (H) 4.3 - 5.6 [facility] Comment: Reference Range: 4.3 - [...] Mellitus, Diabetes Care 2013; 36: Suppl. 1, S67-81 Est Avg Gluc 126 mg/dL [facility] Comment: eAG equivalents for HbA1c percentages: HbA1c(%) ?eAG(mg/dL) 6.0 ?126 6.5 ?140 7.0 ?154 7.5 ?169 8.0 ?183 8.5 ?197 9.0 ?212 9.5 ?226 10.0 ? 240 Limitations: The eAG calculation has not been validated on women, individuals below 18 years old and above 70 years old, and individuals with hemoglobinopathies. Additional resources are available on [facility] website: [email or web address] FAIRFAXadacalc Lázaro MIX, Lolis J, Reece R, et al. ??Tr anslating the A1C assay into estimated average glucose values. ??Diabetes Care 2008:31(8):0394-2962. Specimen Anatomical Collection Method Collection Time Receive d Time (Source) Location / / Volume Laterality Blood specimen 02/01/2016 2:37 PM 016 2:43 (specimen) EDT PM EDT Resulting Agency Comment Spec In Lab Alan Livingston MD CHEMISTRY ORDERABLES Performing Organization Address City/[facility] [place] [address] Lactate Dehydrogenase (02/01/2016 2:37 PM EDT) P athologist Signature LDH 202 110 - 220 [facility] unit/L [facility] Specimen Anatomical Collection Method Collection Time Receive d Time (Source) Location / / Volume Laterality Blood specimen 02/01/2016 2:37 PM 016 2:43 (specimen) EDT PM EDT Resulting Agency Comment Spec In Lab Alan Livingston MD CHEMISTRY ORDERABLES Performing Organization Address City/[facility] [place] [address] (ABNORMAL) Comprehensive metabolic panel (non-fasting) (02/01/2016 2:37 PM EDT) P athologist Signature Glucose Lvl 164 65 - 199 [facility] mg/dL [facility] Comment: Diabetes: >=200 mg/dL plus symp toms BUN 19 (H) 8 - 18 mg/dL [facility] Creatinine 0.98 0.70 - 1.20 mg/dL [facility] Comment: Please note that the pediatric reference intervals supplied above were not validated at [facility]. Results from pediatri c patients should be interpreted in conjunction to the patient's age, height and muscle mass. Sodium 144 135 - 145 mmol/L [facility] Potassium See Note 3.5 - [...] estions. Chloride 103 98 - 107 mmol/L [facility] CO2 27 22 - 31 mmol/L [facility] Anion Gap 14 5 - 15 mmol/L [facility] Calcium 9.0 8.5 - 10.5 mg/dL [facility] Total Protein 6.5 6.1 - 8.0 gm/dL [facility] Albumin 4.1 3.2 - 5.2 gm/dL [facility] AST 27 0 - 30 unit/L [facility] ALT 19 0 - 30 unit/L [facility] Alk Phos 64 40 - 104 unit/L [facility] Total Bilirubin 0.2 0.2 - 1.3 mg/dL [facility] Bili, Direct <0.1 0.0 - 0.3 mg/dL [facility] Estimated GFR 57 (L) >=60 [facility] Comment: [...] the following links into your internet browser. [email or web address] [email or web address] Specimen Anatomical Collection Method Collection Time Receive d Time (Source) Location / / Volume Laterality Blood specimen 02/01/2016 2:37 PM 016 2:43 (specimen) EDT PM EDT Resulting Agency Comment Spec In Lab Alan Livingston MD CHEMISTRY ORDERABLES Performing Organization Address City/State/ZIP [place] [address] documented in this encounter Visit Diagnoses Diagnosis Hyperglycemia Other abnormal glucose Chronic lymphocytic leukemia Chronic lymphoid leukemia, without menti on of having achieved remission documented in this encounter Care Teams Head Turning Machine Operator Relationship Specialty Start Date End Date Berkley Madrigal MD PCP - General 04/13/10 02/15/18 AYLEEN D [address] [place] [address] documented as of this encounter
--- OUTSIDE RECORDS SUMMARY | 2022-02-11 01:12 | XMS_ITS | Encounter Summary ---
:1950 Author Organization [facility] [place] [address] Care Team Providers Name Role Phone Berkley Madrigal MD Primary Care Provider Reason for Visit Reason Comments Follow-up Encounter Details Date Type Department Care Team Description 05/25/2015 Office Visit Hematology and Alan Livingston M D [facility] DR HEMATOLOGY/[place] [address] Chronic lymphocytic Oncology at [facility] Nilam So APRN [facility] DR HEMATOLOGY/[place] [address] [place] [address] Social History Tobacco Use Types Packs/Day Years [...] Sign Reading Time Taken Comments Blood Pressure 131/79 05/25/2015 3:03 PM EST Pulse 77 05/25/2015 3:03 PM EST Temperature 36.5 ??C (97.7 ??F) 05/25/2015 3:03 PM EST Respiratory Rate 18 05/25/2015 3:03 PM EST Oxygen Saturation 97% 05/25/2015 3:03 PM EST Inhaled Oxygen Concentration - - Weight 76.6 kg (168 lb 14 oz) 05/25/2015 3:03 PM EST Height - - Body Mass Index 28.54 12/22/2014 1:11 PM EDT documented in this encounter Progress Notes Alan Livingston MD - 05/26/2015 10:21 AM EST Subjective: Patient ID: Carol Keller [...] Pneumovax 2014 HPI The patient is a 65-year-old female who returns to hematology clinic in follow- up for her chronic lymphocytic leukemia. She has been followed for the last 6- 1/2 years without treatment. Her white counthas been slowly increasing with a doubling time of between 2 and 3 years. Since we last saw her she has no new symptoms referrable to the CLL. No change in her lymph nodes inthe back of her neck. No fevers chills sweats or weight loss. She continues to work hard to manage her diabetes with diet alone. She did have one episode of sinusitis but it cleared up with some antibiotics Review of Systems Constitutional: Negative. HENT: Negative. Eyes: Negative. Respiratory: Negative. Negative for cough and shortness of breath. Cardiovascular: Negative. Negative for chest pain, palpitations and leg swelling. Gastrointestinal: Negative. Negative for nausea, vomiting, diarrhea and constipation. Genitourinary: Negative. Musculoskeletal: Negative. Skin: Negative. Neurological: Negative. Negative for weakness and numbness. Psychiatric/Behavioral: Negative. Objective: Physical Exam BP 131/79 mmHg Pulse 77 Temp(Src) 36.5 ??C (97.7 ??F) (Temporal) Resp 18 Wt 76.6 kg (168 lb 14 oz) SpO2 97% Constitutional: She is oriented to person, place, [...] Lvl 100 65 - 199 mg/dL BUN 18 8 - 18 mg/dL Creatinine 0.87 0.70 - 1.20 mg/dL Sodium 139 135 - 145 mmol/L Potassium See Note 3.5 - 5.0 mmol/L Chloride 100 98 - 107 mmol/L CO2 28 22 - 31 mmol/L Anion Gap 11 5 - 15 mmol/L Calcium 9.2 8.5 - 10.5 mg/dL Total Protein 6.8 6.1 - 8.0 gm/dL Albumin 4.5 3.2 - 5.2 gm/dL AST 28 0 - 30 unit/L ALT 22 0 - 30 unit/L Alk Phos 61 40 - 104 unit/L Total Bilirubin 0.2 0.2 - 1.3 mg/dL Bili, Direct 0.1 0.0 - 0.3 mg/dL Estimated GFR >60 >=60 Lactate Dehydrogenase Result Value Ref Range LDH 217 110 - 220 unit/L Hemogram Result Value Ref Range WBC 133.2 (CRIT) 4.0 - 10.0 x10(3)/mcL RBC 4.56 3.93 - 5.22 x10(6)/mcL Hemoglobin 13.5 11.2 - 15.7 gm/dL Hematocrit 43.2 34.0 - 45.0 % MCV 94.7 (H) 79.0 - 94.0 fL MCH 29.6 26.6 - 32.2 pg MCHC 31.3 (L) 32.0 - 36.5 gm/dL Platelets 150 145 - 370 x10(3)/mcL RDWSD 47.6 (H) 35.0 - 46.0 fL RDWCV 14.2 10.9 - 14.4 % MPV 11.7 9.0 - 12.0 fL Differential, Automated Result Value Ref Range Neutrophils % 3.6 % Neutr Abs (ANC) 4.76 1.50 - 6.30 x10(3)/mcL Lymphocytes % 94.1 % Lymphocytes Abs 125.4 (H) 1.0 - 3.6 x10(3)/mcL Monocytes % 1.6 % Monocyte Abs 2.1 (H) 0.2 - 1.0 x10(3)/mcL Eosinophils % 0.2 % Eosinophils Abs 0.3 0.0 - 0.5 x10(3)/mcL Basophils % 0.3 % Basophils Abs 0.4 (H) 0.0 - 0.2 x10(3)/mcL Immature Gran % 0.20 % Claudia Gran Abs 0.26 (H) 0.00 - 0.05 x10(3)/mcL Scan, Peripheral Blood Result Value Ref Range Plat Estimate Normal RBC Morphology Normal Nucleated Red Blood Cells Result Value Ref Range nRBC % Auto 0.0 % nRBC Abs Auto 0.000 0.000 - 0.012 x10(3)/mcL Assessment and Plan: 65-year-old female with history of CLL. Counts stable, No worrisome or symptomatic adenoapthy. No B symptoms, We discussed the fact that the white count is not an indication to treat by itself. Typically patients will need to developed anemia or thrombocytopenia or symptoms Given that she has none of these we recommended continued observation. We will see her back in 4 months. If she has more trouble before that we would be happy to see her sooner. documented in this encounter Plan of Treatment Upcoming Encounters Date Type Specialty Care Team Description 02/11/2022 Scheduled View Only Hematology and Ángel Fischer Oncology [facility] ONCOLOGY [place], [place] [address] (Wo rk) 02/11/2022 TH Visit (TeleHealth) Ángel Hill Oncology [facility] DR UMANA [place], [place] [address] (Wo rk) 02/11/2022 Infusion Hematology and Oncology 02/11/2022 Office Visit Hematology and Jazzy Armendariz R D Oncology [facility] HEMATOLOGY AND ONCOLOGY [place], [place] [address] (Wo rk) 02/22/2022 TH Visit (TeleHealth) Hematology and Yaquelin Celis Oncology E, [facility] DR HEMATOLOGY AND ONCOLOGY [place], [place] [address] (Wo rk) 02/25/2022 Office Visit Hematology and Ángel Fischer Oncology [facility] ONCOLOGY [place], [place] [address] (Wo rk) 02/25/2022 Infusion Hematology and Oncology 03/10/2022 Scheduled View Only Obstetrics and Nurse, Julian COLEMAN, engineering coordinator 03/10/2022 Office Visit Obstetrics and Shazia Whitley, Gynecology [facility] UROGYNECOLOGY [place], [place] [address] (Wo rk) 03/11/2022 Office Visit Hematology and Ángel Fischer MD [facility] [place] [address] Oncology Alyssa Joseph[address] MEDICAL ONCOLOGY [place], [place] [id number] 03/11/2022 Infusion Hematology and Oncology 03/25/2022 Office Visit Hematology and Alyssa Joseph Oncology [address] [place] [address] (Wo rk) 03/25/2022 Infusion Hematology and Oncology 03/31/2022 Office Visit Hematology and Alan Livingston M D [facility] HEMATOLOGY/[place] [address] Oncology Nilam So, [facility] HEMATOLOGY/[place] [address] 04/08/2022 Office Visit Hematology and Ángel Fischer MD [facility] [place] [address] Oncology Alyssa Joseph[address] [place] [address] 04/08/2022 Infusion Hematology and Oncology documented as of this encounter Results (ABNORMAL) Comprehensive metabolic panel (non-fasting) (09/28/2015 1:37 PM EDT) athologist Signature Glucose Lvl 97 65 - 199 [facility] mg/dL [facility] Comment: Diabetes: >=200 mg/dL plus symp toms BUN 16 8 - 18 mg/dL [facility] Creatinine 1.05 0.70 - 1.20 mg/dL [facility] Comment: Please note that the pediatric reference intervals supplied above were not validated at [facility]. Results from pediatri c patients should be interpreted in conjunction to the patient's age, height and muscle mass. Sodium 143 135 - 145 mmol/L [facility] Potassium See Note 3.5 - 5.0 mmol/L [facility] Comment: Please note: ??Patients with [...] Fuente. Chloride 106 98 - 107 mmol/L [facility] CO2 27 22 - 31 mmol/L [facility] Anion Gap 10 5 - 15 mmol/L [facility] Calcium 8.8 8.5 - 10.5 mg/dL [facility] Total Protein 6.2 6.1 - 8.0 gm/dL [facility] Albumin 4.2 3.2 - 5.2 gm/dL [facility] AST 23 0 - 30 unit/L [facility] ALT 15 0 - 30 unit/L [facility] Alk Phos 58 40 - 104 unit/L [facility] Total Bilirubin 0.2 0.2 - 1.3 mg/dL [facility] Bili, Direct 0.1 0.0 - 0.3 mg/dL [facility] Estimated GFR 52 (L) >=60 [facility] Comment: This estimated GFR [...] the following links into your internet browser. http://SOAK ([employer] tool[employer])/DHnkdep http://SOAK ([employer] tool[employer])/DHMCnkf Specimen Anatomical Collection Method Collection Time Receive d Time (Source) Location / / Volume Laterality Blood specimen 09/28/2015 1:37 PM 016 1:45 (specimen) EDT PM EDT Resulting Agency Comment Spec In Lab Alan Livingston MD CHEMISTRY ORDERABLES Performing Organization Address City/State/ZIP [place] [address] documented in this encounter Visit Diagnoses Diagnosis Chronic lymphocytic leukemia Chronic lymphoid leukemia, without menti on of having achieved remission documented in this encounter Care Teams Elementary Math Tutor Relationship Specialty Start Date End Date Berkley Madrigal MD PCP - General 04/13/10 02/15/18 AYLEEN Bray [address] [place] [address] documented as of this encounter
--- OUTSIDE RECORDS SUMMARY | 2022-02-11 01:12 | XMS_ITS | Encounter Summary ---
:1950 Author Organization [place] [address] Care Team Providers Name Role Phone Berkley Madrigal MD Primary Care Provider Encounter Details Date Type Department Care Team Description 12/16/2013 Ancillary Hematology and CLINIC, DR BENJAMIN [facility] (chron ic Appointment Oncology at [facility] Alan Livingston MD [facility] HEMATOLOGY/[place] [address] lymphocytic [facility] leukemia) [place] [address] Social History Tobacco Use Types [...] Fischer Oncology [facility] ONCOLOGY [place], [place] [address] (Wo rk) 02/11/2022 TH Visit (TeleHealth) Hematology Ángel Kimbrough Oncology [facility] DR UMANA [place], [place] [address] (Wo rk) 02/11/2022 Infusion Hematology and Oncology 02/11/2022 Office Visit Hematology and Jazzy Armendariz R D Oncology [facility] HEMATOLOGY AND ONCOLOGY [place], [place] [address] (Wo rk) 02/22/2022 TH Visit (TeleHealth) Hematology and Yaquelin Celis Oncology E, [facility] HEMATOLOGY [place] ONCOLOGY [place], [place] [address] (Wo rk) 02/25/2022 Office Visit Ángel Hill Oncology [facility] DR UMANA [place], [place] [address] (Wo rk) 02/25/2022 Infusion Hematology and Oncology 03/10/2022 Scheduled View Only Obstetrics and Nurse, Julian COLEMAN, plate take out worker 03/10/2022 Office Visit Obstetrics and Shazia Whitley, Gynecology [facility] UROGYNECOLOGY [place], [place] [address] (Wo rk) 03/11/2022 Office Visit Hematology and Ángel Fischer MD [facility] [place] [address] Oncology Alyssa Joseph[address] ONCOLOGY [place], [place] [id number] 03/11/2022 Infusion Hematology and Oncology 03/25/2022 Office Visit Hematology and Alyssa Joseph, Oncology [address] ONCOLOGY [place], [place] [id number] (Wo rk) 03/25/2022 Infusion Hematology and Oncology 03/31/2022 Office Visit Hematology and Alan Livingston M D [facility] DR HEMATOLOGY/[place] [address] [facility]cology [facility] [address] 04/08/2022 Office Visit Hematology and Ángel Fischer MD [facility] [place] [address] On[address]lyss[address] Joseph[address] MEDICAL ONCOLOGY [place], [place] [id number] 04/08/2022 Infusion Hematology and Oncology documented as of this encounter Visit Diagnoses Diagnosis CLL (chronic lymphocytic leukemia) Chronic lymphoid leukemia, without menti on of having achieved remission documented in this encounter Care Teams Quality Process Lead Relationship Specialty Start Date End Date Berkley Madrigal MD PCP - General 04/13/10 02/15/18 AYLEEN Bray [address] [place] [address] documented as of this encounter
--- OUTSIDE RECORDS SUMMARY | 2022-02-11 01:12 | XMS_ITS | Encounter Summary ---
:1950 Author Organization [facility] [place] [address] Care Team Providers Name Role Phone Berkley Madrigal MD Primary Care Provider Encounter Details Date Type Department Care Team Description 12/16/2013 Ancillary Hematology and CLINIC, DR ALEXANDER CLL (chron ic lymphocytic leukemia); [place] [facility] [place] Rod King MD [facility] HEMATOLOGY/[place] [address] Examination of [place] [id number] Social History Tobacco Use Types Packs/Day Years [...] Fischer Oncology [facility] ONCOLOGY [place], [place] [address] (Wo rk) 02/11/2022 TH Visit (TeleHealth) Ángel Hill Oncology [facility] DR UMANA [place], [place] [address] (Wo rk) 02/11/2022 Infusion Hematology and Oncology 02/11/2022 Office Visit Hematology and Jazzy Armendariz R D Oncology [facility] CESAR HEMATOLOGY AND ONCOLOGY [place], [place] 0375 (Wo rk) 02/22/2022 TH Visit (TeleHealth) Hematology and Yaquelin Celis Oncology E, [facility] HEMATOLOGY AND ONCOLOGY [place], [place] 0375 (Wo rk) 02/25/2022 Office Visit Ángel Hill Oncology [facility] ONCOLOGY [place], [place] 0375 (Wo rk) 02/25/2022 Infusion Hematology and Oncology 03/10/2022 Scheduled View Only Obstetrics and Nurse, Julian COLEMAN, data science and iot manager 03/10/2022 Office Visit Obstetrics and Shazia Whitley, Gynecology [facility] UROGYNECOLOGY [place], [place] 0375 (Wo rk) 03/11/2022 Office Visit Hematology and Ángel Fischer MD [facility] [place] [address] Oncology Alyssa Joseph[address] ONCOLOGY [place], [place] [phone] 03/11/2022 Infusion Hematology and Oncology 03/25/2022 Office Visit Hematology and Alyssa Joseph, Oncology [address] ONCOLOGY [place], [place] [address] (Wo rk) 03/25/2022 Infusion Hematology and Oncology 03/31/2022 Office Visit Hematology and Alan Livingston M D [facility] DR HEMATOLOGY/[place] [address] [facility]cology [facility] [address] 04/08/2022 Office Visit Hematology and Ángel Fischer MD [facility] [place] [address] Oncology Alyssa Joseph[address] ONCOLOGY [place], [place] [address] 04/08/2022 Infusion Hematology and Oncology documented as of this encounter Visit Diagnoses Diagnosis CLL (chronic lymphocytic leukemia) Chronic lymphoid leukemia, without menti on of having achieved remission Examination of participant in clinical t rial documented in this encounter Care Teams Dairy Equipment Installer Relationship Specialty Start Date End Date Berkley Madrigal MD PCP - General 04/13/10 02/15/18 AYLEEN Bray [address] [place] [address] documented as of this encounter
--- OUTSIDE RECORDS SUMMARY | 2022-02-11 01:13 | XMS_ITS | Encounter Summary ---
:1950 Author Organization [facility] [place] [address] Care Team Providers Name Role Phone Berkley Madrigal MD Primary Care Provider Encounter Details Date Type Department Care Team Description 09/04/2013 Orders Only Hematology and Alan Livingston M D CLL (chronic Oncology at [facility] lymphocytic leukemia) [facility] (Primary Dx) [facility] HEMATOLOGY/[place] [address] Y DEPT. [phone] [place], [place] [address] Social History Tobacco Use Types [...] View Only Hematology and Ángel Fischer, Oncology [facility] ONCOLOGY [place] [address] (Wo rk) 02/11/2022 TH Visit (TeleHealth) Ángel Hill Oncology [facility] DR UMANA [place], [place] [address] (Wo rk) 02/11/2022 Infusion Hematology and Oncology 02/11/2022 Office Visit Hematology and Jazzy Armendariz R D Oncology [facility] CESAR HEMATOLOGY AND ONCOLOGY [place], [place] [address] (Wo rk) 02/22/2022 TH Visit (TeleHealth) Hematology and Yaquelin Celis Oncology Daniel, [facility] HEMATOLOGY AND ONCOLOGY [place], [place] 0375 (Wo rk) 02/25/2022 Office Visit Ángel Hill Oncology [facility] ONCOLOGY [place], [place] [address]375 (Wo rk) 02/25/2022 Infusion Hematology and Oncology 03/10/2022 Scheduled View Only Obstetrics and Nurse, Julian COLEMAN, mammal keeper 03/10/2022 Office Visit Obstetrics and Shazai Whitley, Gynecology [facility] UROGYNECOLOGY [place], [place] [address] (Wo rk) 03/11/2022 Office Visit Hematology and Ángel Fischer MD [facility] [place] [address] On[address]lyss[address] Joseph[address] [phone] 03/11/2022 Infusion Hematology and Oncology 03/25/2022 Office Visit Hematology and Alyssa Joseph, Oncology [address] ONCOLOGY [place], [place] [phone] (Wo rk) 03/25/2022 Infusion Hematology and Oncology 03/31/2022 Office Visit Hematology and Alan Livingston M D [facility] DR HEMATOLOGY/[place] [address] Oncology Nilam So [facility] DR HEMATOLOGY/[place] [address] 04/08/2022 Office Visit Hematology and Ángel Fischer MD [facility] [place] [address] On[address] Joseph[address] ONCOLOGY [place], [place] [phone] 04/08/2022 Infusion Hematology and Oncology Scheduled Orders Name Type Priority Associated Diagnoses Order S chedule Miscellaneous Lab request Lab Routine CLL (chronic ly mphocytic Expected: 09/09/2013, leukemia) Expires: 2013 documented as of this encounter Visit Diagnoses Diagnosis CLL (chronic lymphocytic leukemia) - Cordelia watt Chronic lymphoid leukemia, without menti on of having achieved remission documented in this encounter Care Teams Process Improvement Consultant Relationship Specialty Start Date End Date Berkley Madrigal MD PCP - General 04/13/10 02/15/18 AYLEEN Bray [address] [place] [address] documented as of this encounter
--- OUTSIDE RECORDS SUMMARY | 2022-02-11 01:13 | XMS_ITS | Encounter Summary ---
:1950 Author Organization [facility] [place] [address] Care Team Providers Name Role Phone Berkley Madrigal MD Primary Care Provider Encounter Details Date Type Department Care Team Description 12/05/2013 Orders Only Hematology and Alan Livingston M D CLL (chronic Oncology at [facility] [place] lymphocytic leukemia) [facility] (Primary Dx) [facility] HEMATOLOGY/[place] [address] Y DEPT. [phone] [place], [place] [address]375 Social History Tobacco Use Types [...] View Only Hematology and Ángel Fischer, Oncology [facility] ONCOLOGY [place] [address] (Wo rk) 02/11/2022 TH Visit (TeleHealth) Ángel Hill Oncology [facility] DR UMANA [place], [place] [address] (Wo rk) 02/11/2022 Infusion Hematology and Oncology 02/11/2022 Office Visit Hematology and Jazzy Armendariz R D Oncology [facility] CESAR HEMATOLOGY AND ONCOLOGY [place], [place] [address]375 (Wo rk) 02/22/2022 TH Visit (TeleHealth) Hematology and Yaquelin Celis Oncology Daniel, [facility] HEMATOLOGY AND ONCOLOGY [place], [place] 0375 (Wo rk) 02/25/2022 Office Visit Ángel Hill Oncology [facility] ONCOLOGY [place], [place] 0375 (Wo rk) 02/25/2022 Infusion Hematology and Oncology 03/10/2022 Scheduled View Only Obstetrics and Nurse, Julian COLEMAN, cutting department supervisor 03/10/2022 Office Visit Obstetrics and Shazia Whitley, Gynecology [facility] UROGYNECOLOGY [place], [place] 0375 (Wo rk) 03/11/2022 Office Visit Hematology and Ángel Fischer MD [facility] [place] [address] [address] [phone] 03/11/2022 Infusion Hematology and Oncology 03/25/2022 Office Visit Hematology and Alyssa Joseph, Oncology [address] ONCOLOGY [place], [place] [phone] (Wo rk) 03/25/2022 Infusion Hematology and Oncology 03/31/2022 Office Visit Hematology and Alan Livingston M D [facility] DR HEMATOLOGY/[place] [address] Oncology Nilam So [facility] DR HEMATOLOGY/[place] [address] 04/08/2022 Office Visit Hematology and Ángel Fischer MD [facility] [place] [address] Oncology Alyss[address] Joseph[address] ONCOLOGY [place], [place] [phone] 04/08/2022 Infusion Hematology and Oncology Scheduled Orders Name Type Priority Associated Diagnoses Order S chedule Miscellaneous Lab request Lab Routine CLL (chronic ly mphocytic Expected: 12/16/2013, leukemia) Expires: 2013 documented as of this encounter Visit Diagnoses Diagnosis CLL (chronic lymphocytic leukemia) - Cordelia watt Chronic lymphoid leukemia, without menti on of having achieved remission documented in this encounter Care Teams Medical Stenographer Relationship Specialty Start Date End Date Berkley Madrigal MD PCP - General 04/13/10 02/15/18 AYLEEN Bray [address] [place] [address] documented as of this encounter
--- OUTSIDE RECORDS SUMMARY | 2022-02-11 01:13 | XMS_ITS | Encounter Summary ---
:1950 Author Organization [facility] Address [address] [place] [address] Care Team Providers Name Role Phone Berkley Madrigal MD Primary Care Provider Encounter Details Date Type Department Care Team Description 10/02/2013 Orders Only Endocrinology at [facility] Maribel Julian, Type II or unspecified [facility] CUSTOMER ENGINEER type diabetes mellitus [facility] [place] [address] CENTER iqra Null [phone] ENDOCRINOLOGY stated as unco ntrolled DEPT. (Primary Dx) [place], [place] [address] Social History Tobacco Use Types [...] and Ángel Fischer Oncology [facility] ONCOLOGY [place], [place] [address] (Wo rk) 02/11/2022 TH Visit (TeleHealth) Ángel Hill Oncology [facility] DR UMANA [place], [place] [address] (Wo rk) 02/11/2022 Infusion Hematology and Oncology 02/11/2022 Office Visit Hematology and Jazzy Armendariz R D Oncology [facility] CESAR HEMATOLOGY AND ONCOLOGY [place], [place] 0375 (Wo rk) 02/22/2022 TH Visit (TeleHealth) Hematology and Yaquelin Celis Oncology Daniel, [facility] HEMATOLOGY AND ONCOLOGY [place], [place] [address]375 (Wo rk) 02/25/2022 Office Visit Hematology Ángel Kimbrough Oncology [facility] ONCOLOGY [place], [place] [address] (Wo rk) 02/25/2022 Infusion Hematology and Oncology 03/10/2022 Scheduled View Only Obstetrics and Nurse, Julian COLEMAN, teacher lip reading 03/10/2022 Office Visit Obstetrics and Shazia Whitley, Gynecology [facility] UROGYNECOLOGY [place], [place] 0375 (Wo rk) 03/11/2022 Office Visit Hematology and Ángel Fischer MD [facility] [place] [address] Oncology [address]lyss[address] Joseph[address] ONCOLOGY [place], [place] [address] 03/11/2022 Infusion Hematology and Oncology 03/25/2022 Office Visit Hematology and Alyssa Joseph, Oncology [address] [place]OGY [place], [place] [address] (Wo rk) 03/25/2022 Infusion Hematology and Oncology 03/31/2022 Office Visit Hematology and Alan Livingston M D [facility] DR HEMATOLOGY/[place] [address] [facility] [address] 04/08/2022 Office Visit Hematology and Ángel Fischer MD [facility] [place] [address] [address] Joseph[address] ONCOLOGY [place], [place] [phone] 04/08/2022 Infusion Hematology and Oncology documented as of this encounter Visit Diagnoses Diagnosis Type II or unspecified type diabetes omer litus without mention of complication, not stated as uncontrolled - Primary documented in this encounter Care Teams Spool Winder Relationship Specialty Start Date End Date Berkley Madrigal MD PCP - General 04/13/10 02/15/18 AYLEEN Bray [address] [place] [address] documented as of this encounter
--- OUTSIDE RECORDS SUMMARY | 2022-02-11 01:13 | XMS_ITS | Encounter Summary ---
:1950 Author Organization [place] [address] Care Team Providers Name Role Phone Berkley Madrigal MD Primary Care Provider Encounter Details Date Type Department Care Team Description 09/09/2013 Ancillary Hematology and CLINIC, DR BENJAMIN NGO (chron ic Appointment Oncology at [facility] [place] Alan Livingston MD [facility] HEMATOLOGY/[place] [address] lymphocytic [facility] leukemia) [place] [address] Social History Tobacco Use Types [...] Only Hematology and Ángel Fischer Oncology [facility] ONCOLOGY [place], [place] [address] (Wo rk) 02/11/2022 TH Visit (TeleHealth) Hematology Ángel Kimbrough Oncology [facility] DR UMANA [place], [place] [address] (Wo rk) 02/11/2022 Infusion Hematology and Oncology 02/11/2022 Office Visit Hematology and Jazzy Armendariz R D Oncology [facility] CESAR HEMATOLOGY AND ONCOLOGY [place], [place] [address] (Wo rk) 02/22/2022 TH Visit (TeleHealth) Hematology and Yaquelin Celis Oncology E, [facility] HEMATOLOGY [place] ONCOLOGY [place], [place] 0375 (Wo rk) 02/25/2022 Office Visit Ángel Hill Oncology [facility] DR UMANA [place], [place] [address] (Wo rk) 02/25/2022 Infusion Hematology and Oncology 03/10/2022 Scheduled View Only Obstetrics and Nurse, Julian COLEMAN, search marketing analyst 03/10/2022 Office Visit Obstetrics and Shazia Whitley, Gynecology [facility] UROGYNECOLOGY [place], [place] [address] (Wo rk) 03/11/2022 Office Visit Hematology and Ángel Fischer MD [facility] [place] [address] Oncology Alyssa Joseph[address] ONCOLOGY [place], [place] [phone] 03/11/2022 Infusion Hematology and Oncology 03/25/2022 Office Visit Hematology and Alyssa Joseph, Oncology [address] ONCOLOGY [place], [place] [phone] (Wo rk) 03/25/2022 Infusion Hematology and Oncology 03/31/2022 Office Visit Hematology and Alan Livingston M D [facility] DR HEMATOLOGY/[place] [address] Oncology [facility] [address] 04/08/2022 Office Visit Hematology and Ánegl Fischer MD [facility] [place] [address] Oncology [address]lyssa Joseph[address] MEDICAL ONCOLOGY [place], [place] [phone] 04/08/2022 Infusion Hematology and Oncology documented as of this encounter Visit Diagnoses Diagnosis CLL (chronic lymphocytic leukemia) Chronic lymphoid leukemia, without menti on of having achieved remission documented in this encounter Care Teams Aviation Neuropsychologist Relationship Specialty Start Date End Date Berkley Madrigal MD PCP - General 04/13/10 02/15/18 AYLEEN Bray [address] [place] [address] documented as of this encounter
--- OUTSIDE RECORDS SUMMARY | 2022-02-11 01:13 | XMS_ITS | Encounter Summary ---
:1950 Author Organization [facility] Address [address] [place] [address] Care Team Providers Name Role Phone Berkley Madrigal MD Primary Care Provider Reason for Visit Reason Comments Diabetes Encounter Details Date Type Department Care Team Description 10/28/2013 Office Visit Endocrinology at [facility] C Maribel Ware, Type II or [facility] CONCRETE SMOOTHER unspecified type Drive [facility] [place] [address] without mention of [phone] ENDOCRINOLOGY complication, not DEPT. stated as [place], [place] [address] uncontrolled (Primary [phone] Dx) (Work) Social History Tobacco Use Types Packs/Day Years [...] Sign Reading Time Taken Comments Blood Pressure 136/66 10/28/2013 3:30 PM EDT Pulse 68 10/28/2013 3:30 PM EDT Temperature - - Respiratory Rate - - Oxygen Saturation - - Inhaled Oxygen Concentration - - Weight 73.3 kg (161 lb 9.6 oz) 10/28/2013 3:30 PM EDT Height 164 cm (5' 4.57) 10/28/2013 3:30 PM EDT Body Mass Index 27.25 10/28/2013 3:30 PM EDT documented in this encounter Patient Instructions Patient InstructionsMaribel Ware APRN - 10/28/2013 5:08 PM EDT Simvastatin 5mg prescription sent to pharmacy to get LDL under 100 documented in this encounter Progress Notes Maribel Ware APRN - 10/28/2013 5:01 PM EDT REMINDER: Prefers to be called Anahi. BRIEF HISTORY: Presents with friend. She states hypoglycemic symptoms have definitely lessened since she started taking Precose 25 mg before meals two to three times a day. SBGM: Three to four times a day. 24-HOUR MEAL PLAN: She is worried about weight gain, but she knows she has to eat every two hours or else she will have a low glucose level. Breakfast was eggs, toast, and cheese. Snack is granola bar or yogurt. Evening meal was chicken, salad, and homemade bread. Evening snack was ice cream with nuts. PHYSICAL ACTIVITY: Walking daily. PAST MEDICAL HISTORY: Significant for CLL. REVIEW OF SYSTEMS: Depression and mood: Overall is doing okay. Eyes: History of retinal tear, not related to diabetes. No recent headaches or chest pain or shortness of breath. GI symptoms. Takes Prilosec for GERD. Sleep pattern has been okay recently. Extremities are okay. States the hardest part of having low glucose levels is she knows her cognitive ability lessens. 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 PHYSICAL EXAMINATION: Appearance: She appears in excellent health. Weight 161 pounds, same as at previous office visit. Blood pressure 136/66. Eyes: No retinopathy by green light exam. Neck: No thyromegaly or lymphadenopathy. Heart: Regular rate and rhythm. No murmurs. Lungs: Clear to auscultation. Feet: Skin is normal. Pulses are normal. Neuro: Normal sensation to 10 g of pressure. Labs were done recently at PCP office. Hemoglobin A1c 6.0%. Lipids: LDL is 135, which the patient states is definitely from eating more cheese. TSH is in the normal reference range. IMPRESSION AND PLAN: Diabetes mellitus type, controlled by healthy meal plan and physical activity and hypoglycemia with less symptoms since starting acarbose. Discussed whether to start a low dose statin or eat less cheese. The patient states when she eats the cheese she has less low glucose symptoms. Willing to start simvastatin 5 mg daily. Return to office in 1 year. Will repeat the labs at PCP office that were done recently. This was a 27-minute office visit with 26 minutes spent counseling face to face with the patient and friend in the management of glucose levels, reviewing management of hypoglycemia symptoms, reviewing her lab results, and starting a low dose statin. documented in this encounter Plan of Treatment Upcoming Encounters Date Type Specialty Care Team Description 02/11/2022 Scheduled View Only Hematology and Ángel Fischer Oncology [facility] ONCOLOGY [place], [place] [address] (Wo rk) 02/11/2022 TH Visit (TeleHealth) Hematology Ángel Kimbrough Oncology [facility] ONCOLOGY [place], [place] [address] (Wo rk) 02/11/2022 Infusion Hematology and Oncology 02/11/2022 Office Visit Hematology and Jazzy Armendariz R D [facility] CESAR HEMATOLOGY AND ONCOLOGY [place], [place] [address] (Wo rk) 02/22/2022 TH Visit (TeleHealth) Hematology and Yaquelin Celis Oncology E, [facility] HEMATOLOGY AND ONCOLOGY [place], [place] [address] (Wo rk) 02/25/2022 Office Visit Hematology Ángel Kimbrough Oncology [facility] ONCOLOGY [place], [place] [address] (Wo rk) 02/25/2022 Infusion Hematology and Oncology 03/10/2022 Scheduled View Only Obstetrics and Nurse, Julian COLEMAN, dental claims processor 03/10/2022 Office Visit Obstetrics and Shaiza Whitley Gynecology [facility] UROGYNECOLOGY [place], [place] [address] (Wo rk) 03/11/2022 Office Visit Hematology Ángel Kimbrough MD [facility] [place] [address] Oncology Alyssa Joseph, [address] [address] 03/11/2022 Infusion Hematology and Oncology 03/25/2022 Office Visit Hematology and Alyssa Joseph, Oncology [address] MEDICAL ONCOLOGY [place], [place] [phone] (Wo rk) 03/25/2022 Infusion Hematology and Oncology 03/31/2022 Office Visit Hematology and Alan Livingston M D [facility] DR HEMATOLOGY/[place] [address] Oncology Nilam So, [facility] DR HEMATOLOGY/[place] [address] 04/08/2022 Office Visit Hematology and Ángel Fischer MD [facility] [place] [address] Oncology Alyssa Joseph, [address] MEDICAL ONCOLOGY [place], [place] [phone] 04/08/2022 Infusion Hematology and Oncology documented as of this encounter Visit Diagnoses Diagnosis Type II or unspecified type diabetes omer litus without mention of complication, not stated as uncontrolled - Primary documented in this encounter Care Teams Traffic Attendant Relationship Specialty Start Date End Date Berkley Madrigal MD PCP - General 04/13/10 02/15/18 AYLEEN Bray [address] [place], [place] [phone] documented as of this encounter
--- OUTSIDE RECORDS SUMMARY | 2022-02-11 01:13 | XMS_ITS | Encounter Summary ---
:1950 Author Organization [facility] [place] [address] Care Team Providers Name Role Phone Berkley Madrigal MD Primary Care Provider Encounter Details Date Type Department Care Team Description 03/08/2013 Orders Only Hematology and Sai Cartwright V, CLL ([facility] Oncology at [facility] [place] lymphocytic leukemia) [facility] [place] [address] HEMATOLOGY/ONCOLOG [phone] Y DEPT. [place], [place] [address] Social History Tobacco Use Types Packs/Day Years Used Date Never Smoker Alcohol Use Standard Drinks/Week Comments No 0 [...] View Only Hematology and Ángel Fischer Oncology [facility] ONCOLOGY [place], [place] [address] (Wo rk) 02/11/2022 TH Visit (TeleHealth) Hematology Ángel Kimbrough Oncology [facility] [address] UMANA [place], [place] [address] (Wo rk) 02/11/2022 Infusion Hematology and Oncology 02/11/2022 Office Visit Hematology and Jazzy Armendariz R D Oncology [facility] HEMATOLOGY AND ONCOLOGY [place], [place] [address] (Wo rk) 02/22/2022 TH Visit (TeleHealth) Hematology and Yaquelin Celis Oncology Daniel, [facility] HEMATOLOGY AND ONCOLOGY [place], [place] [address] (Wo rk) 02/25/2022 Office Visit Hematology Ángel Kimbrough Oncology [facility] DR UMANA [place], [place] [address] (Wo rk) 02/25/2022 Infusion Hematology and Oncology 03/10/2022 Scheduled View Only Obstetrics and Nurse, Julian COLEMAN, morning nanny 03/10/2022 Office Visit Obstetrics and Shazia Whitley, Gynecology [facility] UROGYNECOLOGY [place], [place] [address] (Wo rk) 03/11/2022 Office Visit Hematology and Ángel Fischer MD [facility] [place] [address] Oncology Alyssa Joseph[address] ONCOLOGY [place], [place] [id number] 03/11/2022 Infusion Hematology and Oncology 03/25/2022 Office Visit Hematology and Alyssa Joseph, Oncology [address] MEDICAL ONCOLOGY [place], [place] [id number] (Wo rk) 03/25/2022 Infusion Hematology and Oncology 03/31/2022 Office Visit Hematology and Alan Livingston M D [facility] DR HEMATOLOGY/[place] [address] [facility] [address] 04/08/2022 Office Visit Hematology and Ángel Fischer MD [facility] [place] [address] Oncology Alyssa Joseph[address] MEDICAL ONCOLOGY [place], [place] [id number] 04/08/2022 Infusion Hematology and Oncology Scheduled Orders Name Type Priority Associated Diagnoses Order S chedule Miscellaneous Lab request Lab Routine CLL (chronic ly mphocytic Expected: 03/11/2013, leukemia) Expires: 2013 documented as of this encounter Visit Diagnoses Diagnosis CLL (chronic lymphocytic leukemia) Chronic lymphoid leukemia, without menti on of having achieved remission documented in this encounter Care Teams Landscape Painter Relationship Specialty Start Date End Date Berkley Madrigal MD PCP - General 04/13/10 02/15/18 AYLEEN Bray [address] [place] [address] documented as of this encounter
--- OUTSIDE RECORDS SUMMARY | 2022-02-11 01:13 | XMS_ITS | Encounter Summary ---
:1950 Author Organization [facility] [place] [address] Care Team Providers Name Role Phone Berkley Madrigal MD Primary Care Provider Reason for Visit Reason Comments Hypoglycemia Encounter Details Date Type Department Care Team Description 07/10/2013 Procedure visit Endocrinology at [facility] C Pasquale Rich, Hypoglycemia [facility] (Primary Dx) [place] [address] CENTER [phone] [place] [address] Social History Tobacco Use Types Packs/Day Years [...] Sign Reading Time Taken Comments Blood Pressure 136/64 07/10/2013 11:15 AM EST Pulse 64 07/10/2013 11:15 AM EST Temperature - - Respiratory Rate 20 07/10/2013 11:15 AM EST Oxygen Saturation - - Inhaled Oxygen Concentration - - Weight 73.7 kg (162 lb 6.4 oz) 07/10/2013 8:04 AM EST Height 163.8 cm (5' 4.5) 07/10/2013 8:04 AM EST Body Mass Index 27.45 07/10/2013 8:04 AM EST documented in this encounter Progress Notes Stacy Pereyra RN - 07/10/2013 8:23 AM EST ENDOCRINOLOGY TESTING: BLOOD GLUCOSE TESTING WITH OBSERVED MEAL CHALLENGE TEST Requested by Dr Rich DIAGNOSIS: Hypoglycemia - #251.2 8:45 AM Pt arrived for blood glucose testing with an observed meal challenge. Pt fasting since 8:00 PM last evening. BP 129/70, Pulse 63. Baseline blood glucose level obtained via glucometer. FBS 98. Pt stated that she usually has symptoms after eating. My blood sugar changes very quickly, and I can feel it. 8:55 AM Testing discussed with patient. FBS obtained by patient, using her own glucometer. FBS 98. Saline lock inserted into right rosie by Stacy Pereyra RN, using a #24 InSyte catheter. 9:00 AM (0 minutes) Saline lock flushed with normal saline. One (5 cc) syringe filled with 2-3 cc ofblood discarded. Using a Vacutainer, blood obtained from saline lock for Glucose (mint green top 4 ml tube), C Peptide, and Total Insulin (gold SST top 5 ml tube, for each). Saline lock was flushed with normal saline. Tubes were labeled 0 minutes, and were sent to the lab for STAT testing. Lab Results: Glucose 109, Insulin Level 13.2, C Peptide - Pending 9:15 AM Pt ate her breakfast, which she brought with her from home. (Oatmeal, OJ and coffee with onecreamer). (Pt tested her BS via her own glucometer after drinking two sips of OJ. BS 119 via glucometer.) 9:45 AM (30 minutes after meal) Saline lock flushed with normal saline. One (5 cc) syringe filled with 2-3 cc of blood discarded. Using a Vacutainer, blood obtained from saline lock for Glucose (mint green top 4 ml tube), C Peptide, and Total Insulin (gold SST top 5 ml tube, for each). Saline lock wasflushed with normal saline. Tubes were labeled 30 minutes, and were sent to the lab for STAT testing. Pt tested her BS via her own glucometer. BS 186. Blood glucose level tested by clinic glucometer. BS 184. Lab Results: Glucose 203, Insulin Level 76.7, C Peptide - Pending 10:15 AM Blood glucose level tested by clinic glucometer. BS 202. Pt offered no complaints. 10:25 AM Pt complaining of feeling jittery. Requested that her blood sugar be tested again. Blood glucose level tested by clinic glucometer. BS 207. 10:45 AM (60 minutes) Saline lock flushed with normal saline. One (5 cc) syringe filled with 2-3 cc of blood discarded. Using a Vacutainer, blood obtained from saline lock for Glucose (mint green top 4ml tube), C Peptide, and Total Insulin (gold SST top 5 ml tube, for each). Saline lock was flushed with normal saline. Tubes were labeled 60 minutes, and were sent to the lab for STAT testing. Lab Results: Glucose 156, Insulin Level Unable to obtain - blood hemolyzed, C Peptide - Pending 11:05 AM Saline lock no longer patent. Flushes well with NS, but unable to obtain any blood for labs. Saline lock discontinued. Restarted in left rosie with #22 Butterfly catheter, per pt request. 11:15 AM Blood glucose level tested by clinic glucometer. BS 110. Pt complaining of feeling nauseousand not feeling well. Complaining of a mild headache, shakiness, and diaphoresis. Perspiration notedon pt's forehead. Dr Rich in to see patient. 11:30 AM Symptoms subsiding. Pt no longer diaphoretic. Mild headache continues, but no longer nauseous. Patient drank 8 oz of water without complaint. 11:45 AM (120 minutes) Saline lock flushed with normal saline. One (5 cc) syringe filled with 2-3 ccof blood discarded. Using a Vacutainer, blood obtained from saline lock for Glucose (mint green top 4 ml tube), C Peptide, and Total Insulin (gold SST top 5 ml tube, for each). Saline lock was flushed with normal saline. Tubes were labeled 120 minutes, and were sent to the lab for STAT testing. BS 96 via clinic glucometer. Lab Results: Glucose 95, Insulin Level 17.6, C Peptide - Pending 12:45 PM (180 minutes) Saline lock flushed with normal saline. One (5 cc) syringe filled with 2-3 ccof blood discarded. Using a Vacutainer, blood obtained from saline lock for Glucose (mint green top 4 ml tube), C Peptide, and Total Insulin (gold SST top 5 ml tube, for each). Saline lock was flushed with normal saline. Tubes were labeled 180 minutes, and were sent to the lab for STAT testing. Blood glucose level obtained via glucometer. BS 72. Pt c/o feeling tired with a slight headache, but no other symptoms of hypoglycemia. Lab Results: Glucose 76, Insulin Level 8.8, C Peptide - Pending 1:15 PM (210 minutes) Saline lock flushed with normal saline. One (5 cc) syringe filled with 2-3 cc of blood discarded. Using a Vacutainer, blood obtained from saline lock for Glucose (mint green top 4ml tube), C Peptide, and Total Insulin (gold SST top 5 ml tube, for each. Saline lock was flushed with normal saline. Tubes were labeled 210 minutes, and were sent to the lab for STAT testing. Blood glucose level obtained via glucometer. BS 88. Pt c/o feeling tired, but no longer complaining of a headache. No other complaints or symptoms of hypoglycemia offered. (Blood glucose up from 72 to 88 in thepast 30 minutes.) Lab Results: Glucose Pending, Insulin Level Pending, C Peptide - Pending 1:25 PM Available test results reviewed by Dr Rich. Meal Challenge Test Discontinued at this time. Pt will be contacted by Dr Rich after the lab results are available and have been reviewed. Saline Lock discontinued. Dry dressing applied to the insertion site. 1:30 PM Pt alert and no longer experiencing any symptoms of hypoglycemia. She is aware of and in agreement with the plan of care. She left clinic with no complaints. Observed fast with blood glucose testing completed by Stacy Pereyra RN documented in this encounter Plan of Treatment Upcoming Encounters Date Type Specialty Care Team Description 02/11/2022 Scheduled View Only Hematology and Ángel Fischer Oncology [facility] ONCOLOGY [place], [place] [address] (Wo rk) 02/11/2022 TH Visit (TeleHealth) Ángel iHll Oncology [facility] DR UMANA [place], [place] [address] (Wo rk) 02/11/2022 Infusion Hematology and Oncology 02/11/2022 Office Visit Hematology and Jazzy Armendariz R Katarina Oncology [facility] HEMATOLOGY AND ONCOLOGY [place], [place] [address] (Wo rk) 02/22/2022 TH Visit (TeleHealth) Hematology and Yaquelin Celis Oncology E, [facility] HEMATOLOGY [place] ONCOLOGY [place], [place] [address] (Wo rk) 02/25/2022 Office Visit Ángel Hill Oncology [facility] [place]OG[place], [place] [address] (Wo rk) 02/25/2022 Infusion Hematology and Oncology 03/10/2022 Scheduled View Only Obstetrics and Nurse, Julian COLEMAN, cnc machine setter 03/10/2022 Office Visit Obstetrics and Shazia Whitley, Gynecology [facility] UROGYNECOLOGY [place], [place] [address] (Wo rk) 03/11/2022 Office Visit Hematology and Ángel Fischer MD [facility] [place] [address] Oncology [address] Joseph[address] ONCOLOGY [place], [place] [id number] 03/11/2022 Infusion Hematology and Oncology 03/25/2022 Office Visit Hematology and Alyssa Joseph, Oncology [address] ONCOLOGY [place], [place] [address] (Wo rk) 03/25/2022 Infusion Hematology and Oncology 03/31/2022 Office Visit Hematology and Alan Livingston M D [facility] DR HEMATOLOGY/[place] [address] [facility] [address] 04/08/2022 Office Visit Hematology and Ángel Fischer MD [facility] [place] [address] Oncology Alyss[address] Joseph[address] ONCOLOGY [place], [place] [phone] 04/08/2022 Infusion Hematology and Oncology documented as of this encounter Procedures Procedure Name Priority Date/Time Associated Diagnosis Comme nts INSULIN, TOTAL Routine 07/10/2013 1:10 PM Hypoglycemia Results for this EST procedure are i n the results section. C-PEPTIDE Routine 07/10/2013 1:10 PM Hypoglycemia Results f or this EST procedure are i n the results section. GLUCOSE, RANDOM Routine 07/10/2013 1:10 PM Hypoglycemia Result s for this EST procedure are i n the results section. INSULIN, TOTAL Routine 07/10/2013 11:45 Hypoglycemia Results f or this AM EST procedure are i n the results section. C-PEPTIDE Routine 07/10/2013 11:45 Hypoglycemia Results for this AM EST procedure are i n the results section. GLUCOSE, RANDOM Routine 07/10/2013 11:45 Hypoglycemia Results for this AM EST procedure are i n the results section. INSULIN, TOTAL Routine 07/10/2013 10:45 Hypoglycemia Results f or this AM EST procedure are i n the results section. C-PEPTIDE Routine 07/10/2013 10:45 Hypoglycemia Results for this AM EST procedure are i n the results section. GLUCOSE, RANDOM Routine 07/10/2013 10:45 Hypoglycemia Results for this AM EST procedure are i n the results section. INSULIN, TOTAL Routine 07/10/2013 9:45 AM Hypoglycemia Results for this EST procedure are i n the results section. C-PEPTIDE Routine 07/10/2013 9:45 AM Hypoglycemia Results f or this EST procedure are i n the results section. GLUCOSE, RANDOM Routine 07/10/2013 9:45 AM Hypoglycemia Result s for this EST procedure are i n the results section. POCT FINGERSTICK STAT 07/10/2013 9:44 AM Hypoglycemia Resul ts for this GLUCOSE EST procedure are i n the results section. INSULIN, TOTAL Routine 07/10/2013 9:00 AM Hypoglycemia Results for this EST procedure are i n the results section. C-PEPTIDE Routine 07/10/2013 9:00 AM Hypoglycemia Results f or this EST procedure are i n the results section. GLUCOSE, RANDOM Routine 07/10/2013 9:00 AM Hypoglycemia Result s for this EST procedure are i n the results section. documented in this encounter Results Glucose, random (07/10/2013 1:10 PM EST) P athologist Signature Glucose Lvl 76 60 - 199 CERNER mg/dL [facility] Comment: Diabetes: >=200 mg/dL plus symp toms Specimen Anatomical Collection Method Collection Time Receive d Time (Source) Location / / Volume Laterality Blood specimen 07/10/2013 1:10 PM 014 1:32 (specimen) EST PM EST Resulting Agency Comment Spec In Lab Pasquale Rich MD CHEMISTRY ORDERABLES Performing Organization Address City/[facility]/ZIP Code Phon e Number [address] CERNER MILLENNIUM Insulin, total (07/10/2013 1:10 PM EST) athologist Signature Insulin Lvl 8.8 2.6 - 24.9 CERNER mcunit/mL MILLENNIUM Specimen Anatomical Collection Method Collection Time Receive d Time (Source) Location / / Volume Laterality Blood specimen 07/10/2013 1:10 PM 014 1:32 (specimen) EST PM EST Resulting Agency Comment Spec In Lab Pasquale Rich MD CHEMISTRY ORDERABLES Performing Organization Address City/[facility]/ZIP Code Phon e Number [address] CERNER MILLENNIUM C-peptide (07/10/2013 1:10 PM EST) athologist Signature C-Peptide 2.8 1.1 - 4.4 CERNER ng/mL MILLENNIUM Comment: Test Performed by: [place] [address] Human Resources Psychologist: Leeanne Daniels, Ph. D. Specimen Anatomical Collection Method Collection Time Receive d Time (Source) Location / / Volume Laterality Blood specimen 07/10/2013 1:10 PM 014 3:42 (specimen) EST PM EST Resulting Agency Comment Spec In Lab Pasquale Rich MD CHEMISTRY ORDERABLES Performing Organization Address City/[facility]/ZIP Code Phon e Number [address] CERNER MILLENNIUM Glucose, random (07/10/2013 11:45 AM EST) athologist Signature Glucose Lvl 95 60 - 199 CERNER mg/dL MILLENNIUM Comment: Diabetes: >=200 mg/dL plus symp toms Specimen Anatomical Collection Method Collection Time Receive d Time (Source) Location / / Volume Laterality Blood specimen 07/10/2013 11:45 4 (specimen) AM EST 12:06 PM EST Resulting Agency Comment Spec In Lab Pasquale Rich MD CHEMISTRY ORDERABLES Performing Organization Address City/[facility]/ZIP Code Phon e Number [address] CERNER MILLENNIUM Insulin, total (07/10/2013 11:45 AM EST) P athologist Signature Insulin Lvl 17.6 2.6 - 24.9 CERNER mcunit/mL MILLENNIUM Specimen Anatomical Collection Method Collection Time Receive d Time (Source) Location / / Volume Laterality Blood specimen 07/10/2013 11:45 4 (specimen) AM EST 12:06 PM EST Resulting Agency Comment Spec In Lab Pasquale Rich MD CHEMISTRY ORDERABLES Performing Organization Address City/[facility]/ZIP [place] [address] CERNER MILLENNIUM (ABNORMAL) C-peptide (07/10/2013 11:45 AM EST) P athologist Signature C-Peptide 5.5 (H) 1.1 - 4.4 CERNER ng/mL MILLENNIUM Comment: Test Performed by: [place] [address] Human Resources Psychologist: Leeanne Daniels, Ph. D. Specimen Anatomical Collection Method Collection Time Receive d Time (Source) Location / / Volume Laterality Blood specimen 07/10/2013 11:45 4 1:10 (specimen) AM EST PM EST Resulting Agency Comment Spec In Lab Pasquale Rich MD CHEMISTRY ORDERABLES Performing Organization Address City/[facility]/ZIP Code Phon e Number [address] CERNER MILLENNIUM Glucose, random (07/10/2013 10:45 AM EST) P athologist Signature Glucose Lvl 156 60 - 199 CERNER mg/dL MILLENNIUM Comment: Diabetes: >=200 mg/dL plus symp toms Specimen Anatomical Collection Method Collection Time Receive d Time (Source) Location / / Volume Laterality Blood specimen 07/10/2013 10:45 4 (specimen) AM EST 11:28 AM EST Resulting Agency Comment Spec In Lab Pasquale Rich MD CHEMISTRY ORDERABLES Performing Organization Address City/[facility]/ZIP Code Phon e Number [address] CERNER MILLENNIUM Insulin, total (07/10/2013 10:45 AM EST) P athologist Signature Insulin Lvl Not Perf 2.6 - 24.9 CERNER MILLENNIUM Comment: Unable to quantitate due to ila ple hemolysis. Sample redraw suggested. Specimen Anatomical Collection Method Collection Time Receive d Time (Source) Location / / Volume Laterality Blood specimen 07/10/2013 10:45 4 (specimen) AM EST 11:28 AM EST Resulting Agency Comment Spec In Lab Pasquale Rich MD CHEMISTRY ORDERABLES Performing Organization Address City/[facility]/[place]IP [place] [address] CERNER MILLENNIUM (ABNORMAL) C-peptide (07/10/2013 10:45 AM EST) P athologist Signature C-Peptide 8.4 (H) 1.1 - 4.4 CERNER ng/mL [facility] Comment: Test Performed by: [place] [address] Human Resources Psychologist: Leeanne Daniels, Ph. D. Specimen Anatomical Collection Method Collection Time Receive d Time (Source) Location / / Volume Laterality Blood specimen 07/10/2013 10:45 4 1:10 (specimen) AM EST PM EST Resulting Agency Comment Spec In Lab Pasquale Rich MD CHEMISTRY ORDERABLES Performing Organization Address City/[facility]/ZIP Code Phon e Number [address] CERNER MILLENNIUM (ABNORMAL) Glucose, random (07/10/2013 9:45 AM EST) P athologist Signature Glucose Lvl 203 (H) 60 - 199 CERNER mg/dL [facility] Comment: Diabetes: >=200 mg/dL plus symp toms Specimen Anatomical Collection Method Collection Time Receive d Time (Source) Location / / Volume Laterality Blood specimen 07/10/2013 9:45 AM 014 (specimen) EST 10:06 AM EST Resulting Agency Comment Spec In Lab Pasquale Rich MD CHEMISTRY ORDERABLES Performing Organization Address City/[facility]/ZIP Code Phon e Number [address] CERNER MILLENNIUM (ABNORMAL) Insulin, total (07/10/2013 9:45 AM EST) athologist Signature Insulin Lvl 76.7 (H) 2.6 - 24.9 CERNER mcunit/mL MILLENNIUM Specimen Anatomical Collection Method Collection Time Receive d Time (Source) Location / / Volume Laterality Blood specimen 07/10/2013 9:45 AM 014 (specimen) EST 10:06 AM EST Resulting Agency Comment Spec In Lab Pasquale Rich MD CHEMISTRY ORDERABLES Performing Organization Address City/[facility]/ZIP Code Phon e Number [address] CERNER MILLENNIUM (ABNORMAL) C-peptide (07/10/2013 9:45 AM EST) athologist Signature C-Peptide 6.2 (H) 1.1 - 4.4 CERNER ng/mL MILLENNIUM Comment: Test Performed by: [place] [address] Human Resources Psychologist: Leeanne Daniels, Ph. D. Specimen Anatomical Collection Method Collection Time Receive d Time (Source) Location / / Volume Laterality Blood specimen 07/10/2013 9:45 AM 014 1:10 (specimen) EST PM EST Resulting Agency Comment Spec In Lab Pasquale Rich MD CHEMISTRY ORDERABLES Performing Organization Address City/[facility]/ZIP Code Phon e Number [address] CERNER MILLENNIUM (ABNORMAL) POCT Fingerstick Glucose (07/10/2013 9:44 AM EST) athologist Signature POC Glucose 184 60 - 199 mg/dl Comment: Endo Test Meal Challenge. - Fas ting POC Glucose 202 (A) 60 - 199 mg/dl Comment: Endo Test Meal Challenge POC Glucose 207 (A) 60 - 199 mg/dl Comment: Endo Test Meal Challenge POC Glucose 110 60 - 199 mg/dl Comment: Endo Test Meal Challenge POC Glucose 96 60 - 199 mg/dl Comment: Endo Test Meal Challenge POC Glucose 72 60 - 199 mg/dl Comment: Endo Test Meal Challenge POC Glucose 88 60 - 199 mg/dl Comment: Endo Test Meal Challenge Specimen (Source) Anatomical Collection Method Collection Time Re ceived Time Location / / Volume Laterality Blood specimen 07/10/2013 9:44 AM (specimen) EST Pasquale Rich MD POINT OF CARE TEST ORDERABLE S Glucose, random (07/10/2013 9:00 AM EST) athologist Signature Glucose Lvl 109 60 - 199 CERNER mg/dL [facility] Comment: Diabetes: >=200 mg/dL plus symp toms Specimen Anatomical Collection Method Collection Time Receive d Time (Source) Location / / Volume Laterality Blood specimen 07/10/2013 9:00 AM 014 9:10 (specimen) EST AM EST Resulting Agency Comment Spec In Lab Pasquale Rich MD CHEMISTRY ORDERABLES Performing Organization Address City/State/ZIP Code Phon e Number [address] CERNER MILLENNIUM Insulin, total (07/10/2013 9:00 AM EST) athologist Signature Insulin Lvl 13.2 2.6 - 24.9 CERNER mcunit/mL [facility] Specimen Anatomical Collection Method Collection Time Receive d Time (Source) Location / / Volume Laterality Blood specimen 07/10/2013 9:00 AM 014 9:10 (specimen) EST AM EST Resulting Agency Comment Spec In Lab Pasquale Rich MD CHEMISTRY ORDERABLES Performing Organization Address City/State/ZIP Code Phon e Number [address] CERNER MILLENNIUM C-peptide (07/10/2013 9:00 AM EST) athologist Signature C-Peptide 3.1 1.1 - 4.4 CERNER ng/mL MILLENNIUM Comment: Test Performed by: [facility] [address], [place] [address] Human Resources Psychologist: Leeanne Daniels, Ph. D. Specimen Anatomical Collection Method Collection Time Receive d Time (Source) Location / / Volume Laterality Blood specimen 07/10/2013 9:00 AM 014 (specimen) EST 10:47 AM EST Resulting Agency Comment Spec In Lab Pasquale Rich MD CHEMISTRY ORDERABLES Performing Organization Address City/State/[facility] [place] [address] [facility] documented in this encounter Visit Diagnoses Diagnosis Hypoglycemia - Primary Hypoglycemia, unspecified documented in this encounter Care Teams Cut In Station Operator Relationship Specialty Start Date End Date Berkley Madrigal MD PCP - General 04/13/10 02/15/18 AYLEEN Bray [address] [place] [address] documented as of this encounter
--- OUTSIDE RECORDS SUMMARY | 2022-02-11 01:13 | XMS_ITS | Encounter Summary ---
:1950 Author Organization [facility] [place] [address] Care Team Providers Name Role Phone Berkley Madrigal MD Primary Care Provider Encounter Details Date Type Department Care Team Description 03/11/2013 Hospital Encounter Hematology and On[place] CLINIC, [place] [facility] [place] Livingston MD [facility] HEMATOLOGY/[place] [address] [place] [address] Social History Tobacco Use Types Packs/Day [...] Sig Dispensed Refills Start Date End Date melatonin 3 mg Tab Take 3 mg by mouth 0 nightly as needed. multivitamin capsule Take 1 capsule by 0 mouth daily. cholecalciferol, Vitamin Take 2,000 mg by 0 D3, 50 mcg (2,000 unit) mouth daily. Capsule ESTROGENS, CONJUGATED Take by mouth. 0 07/08/2016 (PREMARIN ORAL) imipramine (TOFRANIL) 10 Take 10 mg by mouth 0 11/04/2019 mg tablet every morning. Glucosamine Sulfate 500 0 05/24/2010 0 09/02/2016 mg Tab documented as of this encounter Plan of Treatment Upcoming Encounters Date Type Specialty Care Team Description 02/11/2022 Scheduled View Only Hematology and Ángel Fischer Oncology [facility] ONCOLOGY [place], [place] [address] (Shana hewitt) 02/11/2022 TH Visit (TeleHealth) Hematology and Ángel Fischer Oncology [facility] DR UMANA [place], [place] [address] (Shana hewitt) 02/11/2022 Infusion Hematology and Oncology 02/11/2022 Office Visit Hematology and Jazzy Armendariz R D Oncology [facility] HEMATOLOGY AND ONCOLOGY [place], [place] [address] (Shana hewitt) 02/22/2022 TH Visit (TeleHealth) Hematology and Yaquelin Celis Oncology E, [facility] HEMATOLOGY AND ONCOLOGY [place], [place] [address] (Wo rk) 02/25/2022 Office Visit Hematology Ángel Kimbrough Oncology [facility] ONCOLOGY [place], [place] [address] (Wo rk) 02/25/2022 Infusion Hematology and Oncology 03/10/2022 Scheduled View Only Obstetrics and Nurse, Julian COLEMAN, floatlight powder mixer 03/10/2022 Office Visit Obstetrics and Shazia Whitley, Gynecology [facility] UROGYNECOLOGY [place], [place] [address] (Wo rk) 03/11/2022 Office Visit Hematology and Ángel Fischer MD [facility] [place] [address] Oncology Alyssa Joseph[address] MEDICAL ONCOLOGY [place], [place] [id number] 03/11/2022 Infusion Hematology and Oncology 03/25/2022 Office Visit Hematology and Alyssa Joseph Oncology [address] MEDICAL ONCOLOGY [place], [place] [id number] (Wo rk) 03/25/2022 Infusion Hematology and Oncology 03/31/2022 Office Visit Hematology and Alan Livingston M D [facility] HEMATOLOGY/[place] [address] Oncology Nilam So, [facility] HEMATOLOGY/[place] [address] 04/08/2022 Office Visit Hematology and Ángel Fischer MD [facility] [place] [address] Oncology Alyssa Joseph, TENTERING MACHINE FEEDER [address] [place] [address] DR MEDICAL ONCOLOGY [place], [place] [id number] 04/08/2022 Infusion Hematology and Oncology documented as of this encounter Visit Diagnoses Not on filedocumented in this encounter Care Teams Senior Geotechnical Engineer Relationship Specialty Start Date End Date Berkley Madrigal MD PCP - General 04/13/10 02/15/18 AYLEEN Bray [address] [place], [place] [phone] documented as of this encounter
--- OUTSIDE RECORDS SUMMARY | 2022-02-11 01:13 | XMS_ITS | Encounter Summary ---
:1950 Author Organization [facility] Address [address] [place] [address] Care Team Providers Name Role Phone Berkley Madrigal MD Primary Care Provider Reason for Visit Reason Onset Date Comments Medication Refill 08/21/2013 Encounter Details Date Type Department Care Team Description 08/21/2013 Refill Endocrinology at [facility] C Pasquale Rich MD Type 2 diabetes [facility] D [facility] mellitus (Primary Dx) [place] [phone] ENDOCRINOLOGY [address] PT. [place], [place] [address] (Wo rk) Social History Tobacco [...] this encounter Miscellaneous Notes Telephone Encounter - Neelam Crowder LPN - 08/21/2013 4:42 PM EDT Per 08/21 email documented in this encounter Plan of Treatment Upcoming Encounters Date Type Specialty Care Team Description 02/11/2022 Scheduled View Only Hematology and Ángel Fischer Oncology [facility] ONCOLOGY [place], [place] [address] (Shana hewitt) 02/11/2022 TH Visit (TeleHealth) Hematology Ángel Kimbrough Oncology [facility] ONCOLOGY [place], [place] [address] (Shana rk) 02/11/2022 Infusion Hematology and Oncology 02/11/2022 Office Visit Hematology and Jazzy Armendariz R D Oncology [facility] CESAR HEMATOLOGY AND ONCOLOGY [place], [place] [address] (Wo rk) 02/22/2022 TH Visit (TeleHealth) Hematology and Yaquelin Celis Oncology E, [facility] HEMATOLOGY AND ONCOLOGY [place], [place] [address] (Wo rk) 02/25/2022 Office Visit Hematology and Ángel Fischer Oncology [facility] ONCOLOGY [place], [place] [address] (Wo rk) 02/25/2022 Infusion Hematology and Oncology 03/10/2022 Scheduled View Only Obstetrics and Nurse, Oboneal COLEMAN, client operations manager 03/10/2022 Office Visit Obstetrics and Shazia Whitley Gynecology [facility] UROGYNECOLOGY [place], [place] [address] (Wo rk) 03/11/2022 Office Visit Hematology and Ángel Fischer MD [facility] [place] [address] Oncology Alyssa Joseph[address] MEDICAL ONCOLOGY [place], [place] [id number] 03/11/2022 Infusion Hematology and Oncology 03/25/2022 Office Visit Hematology and Alyssa Joseph Oncology [address] MEDICAL ONCOLOGY [place], [place] [phone] (Wo rk) 03/25/2022 Infusion Hematology and Oncology 03/31/2022 Office Visit Hematology and Alan Livingston M D [facility] HEMATOLOGY/[place] [address] Oncology Nilam So, [facility] HEMATOLOGY/[place] [address] 04/08/2022 Office Visit Hematology and Ángel Fischer MD [facility] [place] [address] Oncology Alyssa Joseph, DOUBLE SPINDLE SHAPER OPERATOR [address] [place] [address] MEDICAL ONCOLOGY [place], [place] [phone] 04/08/2022 Infusion Hematology and Oncology documented as of this encounter Visit Diagnoses Diagnosis Type 2 diabetes mellitus - Primary Type II or unspecified type diabetes omer litus without mention of complication, not stated as uncontrolled documented in this encounter Care Teams Assistant Art Director Relationship Specialty Start Date End Date Berkley Madrigal MD PCP - General 04/13/10 02/15/18 AYLEEN Bray [address] [place], [place] [id number] documented as of this encounter
--- OUTSIDE RECORDS SUMMARY | 2022-02-11 01:13 | XMS_ITS | Encounter Summary ---
:1950 Author Organization [facility] [place] [address] Care Team Providers Name Role Phone Berkley Madrigal MD Primary Care Provider Reason for Visit Reason Comments Follow-up Encounter Details Date Type Department Care Team Description 06/10/2013 Follow-Up Hematology and Alan Livingston M D Chronic lymphocytic Oncology at [facility] leukemia [facility] DR Perkins HEMATOLOGY/[place] [address] DEPT. [phone] [place], [place] [address] (Wo rk) Social History Tobacco [...] Sign Reading Time Taken Comments Blood Pressure 140/63 06/10/2013 2:45 PM EST Pulse 69 06/10/2013 2:45 PM EST Temperature 37 ??C (98.6 ??F) 06/10/2013 2:45 PM EST Respiratory Rate 18 06/10/2013 2:45 PM EST Oxygen Saturation 98% 06/10/2013 2:45 PM EST Inhaled Oxygen Concentration - - Weight 74.5 kg (164 lb 3.9 oz) 06/10/2013 2:45 PM EST Height 164 cm (5' 4.57) 06/10/2013 2:45 PM EST Body Mass Index 27.7 06/10/2013 2:45 PM EST documented in this encounter Patient Instructions Patient InstructionsSchAgustin rodgers, ADENIKE - 06/10/2013 3:14 PM EST Recent Results (from the past 72 hour(s)) CBC (WITH DIFF) Component Value Range WBC 90.0 (*) 4.0 - 10.0 x10(3)/mcL RBC 4.44 3.93 - 5.22 x10(6)/mcL Hemoglobin 12.8 11.2 - 15.7 gm/dL Hematocrit 41.1 34.0 - 45.0 % MCV 92.6 79.0 - 94.0 fL MCH 28.8 26.6 - 32.2 pg MCHC 31.1 (*) 32.0 - 36.5 gm/dL Platelets 188 145 - 370 x10(3)/mcL RDWSD 46.9 (*) 35.0 - 46.0 fL RDWCV 13.6 10.9 - 14.4 % MPV 11.5 9.0 - 12.0 fL COMPREHENSIVE METABOLIC PANEL (NON-FASTING) Component Value Range Glucose Lvl 83 60 - 199 mg/dL BUN 17 8 - 18 mg/dL Creatinine 0.99 0.70 - 1.20 mg/dL Sodium 142 135 - 145 mmol/L Potassium 4.2 3.5 - 5.0 mmol/L Chloride 104 98 - 107 mmol/L CO2 28 22 - 31 mmol/L Anion Gap 10 5 - 15 mmol/L Calcium 9.1 8.5 - 10.5 mg/dL Total Protein 6.4 6.4 - 8.3 gm/dL Albumin 4.2 3.2 - 5.2 gm/dL AST 20 0 - 30 unit/L ALT 16 0 - 30 unit/L Alk Phos 58 40 - 104 unit/L Total Bilirubin 0.2 0.2 - 1.3 mg/dL Bili, Direct 0.1 0.0 - 0.3 mg/dL Estimated GFR 56 (*) >=60 LACTATE DEHYDROGENASE Component Value Range LDH 196 110 - 220 unit/L IMMUNOGLOBULINS, QUANTITATIVE Component Value Range IgG 533 (*) 700 - 1600 mg/dL IgA 60 (*) 70 - 400 mg/dL IgM 26 (*) 40 - 230 mg/dL NUCLEATED RED BLOOD CELLS Component Value Range nRBC % Auto 0.0 0.0 - 0.2 % nRBC Abs Auto 0.000 0.000 - 0.012 x10(3)/mcL DIFFERENTIAL, MANUAL Component Value Range Neutrophil % 4 (*) 34 - 71 % Lymphocyte % 95 (*) 19 - 53 % Basophil % 1 0 - 2 % Neutrophil Abs 3.6 1.5 - 6.3 x10(3)/mcL Neutr Abs (ANC) 3.60 1.50 - 6.30 x10(3)/mcL Lymphocyte Abs 85.5 (*) 1.0 - 3.6 x10(3)/mcL Basophil Abs 0.9 (*) 0.0 - 0.2 x10(3)/mcL Tot Diff Cell Ct 100 Plat Estimate Normal RBC Morphology Normal Smudge Cells Present BP 140/63 Pulse 69 Temp 37 ??C (98.6 ??F) (Oral) Resp 18 Ht 164 cm (5' 4.57) Wt 74.5 kg (164 lb 3.9 oz) BMI 27.70 kg/m2 SpO2 98% documented in this encounter Progress Notes Agustin So APRN - 06/10/2013 2:54 PM EST Subjective: Patient ID: Carol Keller is a 63 y.o. female here for f/u of CLL Patient Active Problem List Diagnosis ??? Verruca vulgaris ??? Macular pucker, right eye ??? Horseshoe retinal tear, right eye ??? SVT (supraventricular tachycardia) ??? Urinary incontinence, overflow ??? GERD (gastroesophageal reflux disease) ??? Diabetes mellitus ??? 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 Cytogenetics 13 deletion (favorable prognosis) DIANE Medina is doing well - her hormone therapy for juan carlos-menopause symptoms has started working - she is no longer bothered by hot flashes. She has no new adenopathy. No recent infections. No night sweats. She is excited for her daughter who just [place] millitary [place]. 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 Review of Systems Constitutional: Negative. HENT: Negative. Eyes: Negative. Respiratory: Negative. Negative for cough and shortness of breath. Cardiovascular: Negative. Negative for chest pain, palpitations and leg swelling. Gastrointestinal: Negative. Negative for nausea, vomiting, diarrhea and constipation. Genitourinary: Negative. Musculoskeletal: Negative. Skin: Negative. Neurological: Negative. Negative for weakness and numbness. Hematological: Negative. Psychiatric/Behavioral: Negative. Objective: Physical Exam Constitutional: She is oriented to person, place, and time. She appears well- developed and well-nourished. No distress. HENT: Mouth/Throat: Oropharynx is clear and moist. No oropharyngeal exudate. Eyes: Conjunctivae normal are normal. Pupils are equal, round, and [...] No inguinal and no supraclavicular adenopathy present. Bilat 1cm cervical and occipital nodes - right>left. Left 1cm axillary node Neurological: She is alert and oriented to person, place, and time. Skin: Skin is warm and dry. Psychiatric: She has a normal mood and affect. Recent Results (from the past 72 hour(s)) CBC (WITH DIFF) Component Value Range WBC 90.0 (*) 4.0 - 10.0 x10(3)/mcL RBC 4.44 3.93 - 5.22 x10(6)/mcL Hemoglobin 12.8 11.2 - 15.7 gm/dL Hematocrit 41.1 34.0 - 45.0 % MCV 92.6 79.0 - 94.0 fL MCH 28.8 26.6 - 32.2 pg MCHC 31.1 (*) 32.0 - 36.5 gm/dL Platelets 188 145 - 370 x10(3)/mcL RDWSD 46.9 (*) 35.0 - 46.0 fL RDWCV 13.6 10.9 - 14.4 % MPV 11.5 9.0 - 12.0 fL COMPREHENSIVE METABOLIC PANEL (NON-FASTING) Component Value Range Glucose Lvl 83 60 - 199 mg/dL BUN 17 8 - 18 mg/dL Creatinine 0.99 0.70 - 1.20 mg/dL Sodium 142 135 - 145 mmol/L Potassium 4.2 3.5 - 5.0 mmol/L Chloride 104 98 - 107 mmol/L CO2 28 22 - 31 mmol/L Anion Gap 10 5 - 15 mmol/L Calcium 9.1 8.5 - 10.5 mg/dL Total Protein 6.4 6.4 - 8.3 gm/dL Albumin 4.2 3.2 - 5.2 gm/dL AST 20 0 - 30 unit/L ALT 16 0 - 30 unit/L Alk Phos 58 40 - 104 unit/L Total Bilirubin 0.2 0.2 - 1.3 mg/dL Bili, Direct 0.1 0.0 - 0.3 mg/dL Estimated GFR 56 (*) >=60 LACTATE DEHYDROGENASE Component Value Range LDH 196 110 - 220 unit/L IMMUNOGLOBULINS, QUANTITATIVE Component Value Range IgG 533 (*) 700 - 1600 mg/dL IgA 60 (*) 70 - 400 mg/dL IgM 26 (*) 40 - 230 mg/dL NUCLEATED RED BLOOD CELLS Component Value Range nRBC % Auto 0.0 0.0 - 0.2 % nRBC Abs Auto 0.000 0.000 - 0.012 x10(3)/mcL DIFFERENTIAL, MANUAL Component Value Range Neutrophil % 4 (*) 34 - 71 % Lymphocyte % 95 (*) 19 - 53 % Basophil % 1 0 - 2 % Neutrophil Abs 3.6 1.5 - 6.3 x10(3)/mcL Neutr Abs (ANC) 3.60 1.50 - 6.30 x10(3)/mcL Lymphocyte Abs 85.5 (*) 1.0 - 3.6 x10(3)/mcL Basophil Abs 0.9 (*) 0.0 - 0.2 x10(3)/mcL Tot Diff Cell Ct 100 Plat Estimate Normal RBC Morphology Normal Smudge Cells Present BP 140/63 Pulse 69 Temp 37 ??C (98.6 ??F) (Oral) Resp 18 Ht 164 cm (5' 4.57) Wt 74.5 kg (164 lb 3.9 oz) BMI 27.70 kg/m2 SpO2 98% Assessment and Plan: 1. Assessment: CLL. Counts stable, No worrisome or symptomatic adenoapthy. No B symptoms, ALC doubling time over 2 years, No recurrent infections, no signs [...] Hematology and Ángel Fischer Oncology [facility] ON[facility]OGY [place], [place] [address] (Wo rk) 02/11/2022 TH Visit (TeleHealth) Hematology Ángel Kimbrough Oncology [facility] ON[facility] [place], [place] [address] (Wo rk) 02/11/2022 Infusion Hematology and Oncology 02/11/2022 Office Visit Hematology and Jazzy Armendariz R D [facility] HEMATOLOGY AND ONCOLOGY [place], [place] [address] (Wo rk) 02/22/2022 TH Visit (TeleHealth) Hematology and Yaquelin Celis Oncology E, [facility] HEMATOLOGY AND ONCOLOGY [place], [place] [address] (Wo rk) 02/25/2022 Office Visit Hematology Ángel Kimbrough Oncology [facility] ON[facility] [place], [place] [address] (Wo rk) 02/25/2022 Infusion Hematology and Oncology 03/10/2022 Scheduled View Only Obstetrics and Nurse, Julian COLEMAN, composite bond worker 03/10/2022 Office Visit Obstetrics and Shazia Whitley Gynecology [facility] [place], [place] [address] (Wo rk) 03/11/2022 Office Visit Hematology Ángel Kimbrough MD [facility] [place] [address] Oncology Alyssa Joseph, [address] [place] [address] 03/11/2022 Infusion Hematology and Oncology 03/25/2022 Office Visit Hematology and Alyssa Joseph, Oncology [address] MEDICAL ONCOLOGY [place], [place] [id number] (Wo rk) 03/25/2022 Infusion Hematology and Oncology 03/31/2022 Office Visit Hematology and Alan Livingston M D [facility] DR HEMATOLOGY/[place] [address] Oncology Agustin So, [facility] DR HEMATOLOGY/[place] [address] 04/08/2022 Office Visit Hematology and Ángel Fischer MD [facility] [place] [address] Oncology Alyssa Joseph, [address] MEDICAL ONCOLOGY [place], [place] [id number] 04/08/2022 Infusion Hematology and Oncology documented as of this encounter Procedures Procedure Name Priority Date/Time Associated Comments Diagnosis IMMUNOGLOBULINS, STAT 06/10/2013 1:45 PM Chronic lymphocyti c Results for this QUANTITATIVE EST leukemia procedure are i n the results section. DIFFERENTIAL, MANUAL STAT 06/10/2013 1:45 PM R esults for this EST procedure are i n the results section. NUCLEATED RED BLOOD STAT 06/10/2013 1:45 PM Re sults for this CELLS EST procedure are i n the results section. CBC (WITH DIFF) STAT 06/10/2013 1:45 PM Chronic lymphocytic Results for this EST leukemia procedure are i n the results section. LACTATE DEHYDROGENASE STAT 06/10/2013 1:45 PM Chronic lymph ocytic Results for this EST leukemia procedure are i n the results section. COMPREHENSIVE STAT 06/10/2013 1:45 PM Chronic lymphocytic R esults for this METABOLIC PANEL EST leukemia procedure ar e in (NON-FASTING) the results section. documented in this encounter Results VIT D Total Evaluation (09/09/2013 2:14 PM EDT) athologist Signature 25-OH Vit D 63 30 - 100 CERNER Total ng/mL [facility] Comment: Deficient <10 ng/mL Insufficient 10 to 29 ng/mL Sufficient 30 to 100 ng/mL Potential Intoxication >100 ng/mL According to the [place] National Osteoporosi s Foundation, Vitamin D concentrations >30 ng/mL are sufficient to protect bone health. ??The National Kidney Foundation has similarly stated that pat ients with Vitamin D concentrations <30ng/mL should be considered to be insu fficient or deficient. http://www.kidney.org/professionals/KDOQ I/guidelines_bone/Guide7.htm http://nof.org/files/nof/public/content/ clinicalupdates/clinicalupdates/Issue2 5VitaminD/2012_VitaminD.html The IDS iSYS Vitamin D Immunoassay detec ts both 25-OH Vitamin D2 and 25-OH Vitamin D3, but only a total Vitamin D c oncentration is reported. Specimen Anatomical Collection Method Collection Time Receive d Time (Source) Location / / Volume Laterality Blood specimen 09/09/2013 2:14 PM 014 2:36 (specimen) EDT PM EDT Resulting Agency Comment Spec In Lab Alan Livingston MD CHEMISTRY ORDERABLES Performing Organization Address City/[facility]/ZIP Code Phon e Number [address] [facility] Lactate Dehydrogenase (09/09/2013 2:14 PM EDT) P athologist Signature LDH 199 110 - 220 CERNER unit/L [facility] Specimen Anatomical Collection Method Collection Time Receive d Time (Source) Location / / Volume Laterality Blood specimen 09/09/2013 2:14 PM 014 2:36 (specimen) EDT PM EDT Resulting Agency Comment Spec In Lab Alan Livingston MD CHEMISTRY ORDERABLES Performing Organization Address City/[facility]/ZIP [facility] Phon e Number [address] CERNER MILLENNIUM (ABNORMAL) Comprehensive metabolic panel (non-fasting) (09/09/2013 2:14 PM EDT) P athologist Signature Glucose Lvl 133 60 - 199 CERNER mg/dL MILLENNIUM Comment: Diabetes: >=200 mg/dL plus symp toms BUN 17 8 - 18 mg/dL CERNER MILLENNIUM Creatinine 0.98 0.70 - 1.20 mg/dL CERNER MILL ENNIUM Comment: Please note that the pediatric reference intervals supplied above were not validated at [facility]. Results from pediatri c patients should be interpreted in conjunction to the patient's age, height and muscle mass. Sodium 142 135 - 145 mmol/L CERNER JAVI NIUM Potassium 3.9 3.5 - 5.0 mmol/L CERNER JAVI NIUM Comment: Please note: ??Patients with WBC >100,00 0 may have falsely elevated Potassium levels. ??For accurate Potassium quantif ication in these patients send serum separator tube (gold top) for subsequent determinations. ??Contact the Clinical Chemistry Laboratory if there are any qu estions. Chloride 105 98 - 107 mmol/L CERNER MILLENN IUM CO2 29 22 - 31 mmol/L CERNER MILLENNI UM Anion Gap 8 5 - 15 mmol/L CERNER MILLENNIU M Calcium 9.2 8.5 - 10.5 mg/dL CERNER JAVI NIUM Total Protein 6.1 (L) 6.4 - 8.3 gm/dL CERNER MIL LENNIUM Albumin 4.1 3.2 - 5.2 gm/dL CERNER MILLENN IUM AST 25 0 - 30 unit/L CERNER MILLENNIU M ALT 19 0 - 30 unit/L CERNER MILLENNIU M Alk Phos 51 40 - 104 unit/L CERNER MILLENN IUM [...] the following links into your internet browser. http://www.[employer].[facility].gov/lab-evaluation. shtml http://www.kidney.org/professionals/ Specimen Anatomical Collection Method Collection Time Receive d Time (Source) Location / / Volume Laterality Blood specimen 09/09/2013 2:14 PM 014 2:36 (specimen) EDT PM EDT Resulting Agency Comment Spec In Lab Alan Livingston MD CHEMISTRY ORDERABLES Performing Organization Address City/State/[place] [address] CERNER MILLENNIUM (ABNORMAL) CBC (with Diff) (09/09/2013 2:14 PM EDT) P athologist Signature WBC 103.8 4.0 - 10.0 CERNER (Critical) x10(3)/mcL MILLENNIUM Comment: PLEASE NOTE: PATIENTS WITH WBC >100,000 MAY HAVE FALSELY ELEVATED POTASSIUM LEVELS. CON[facility]CT [facility] CHEMISTRY LABORATORY IF THERE ARE ANY QUESTIONS. This result has been called to BO CASSIDY by KEILA DAVIES on 09.09.13 at 14:57, and has been read lisa k (). RBC 4.39 3.93 - 5.22 x10(6)/mcL CERNER MILLENNIUM Hemoglobin 13.0 11.2 - 15.7 gm/dL CERNER MILL ENNIUM Hematocrit 41.4 34.0 - 45.0 % CERNER MILLENNI UM MCV 94.3 (H) 79.0 - 94.0 fL CERNER MILLENNI UM MCH 29.6 26.6 - 32.2 pg CERNER MILLENNI UM MCHC 31.4 (L) 32.0 - 36.5 gm/dL CERNER MILLE NNIUM Platelets 171 145 - 370 x10(3)/mcL CERNER [place] LLENNIUM RDWSD 47.1 (H) 35.0 - 46.0 fL CERNER MILLENNI UM RDWCV 14.0 10.9 - 14.4 % CERNER MILLENNIU M MPV 11.5 9.0 - 12.0 fL CERNER MILLENNIU M Specimen Anatomical Collection Method Collection Time Receive d Time (Source) Location / / Volume Laterality Blood specimen 09/09/2013 2:14 PM 014 2:36 (specimen) EDT PM EDT Resulting Agency Comment Spec In Lab Alan Livingston MD HEMATOLOGY ORDERABLES Performing Organization Address City/State/ZIP Code Phon e Number [address] CERNER MILLENNIUM (ABNORMAL) Differential, Manual (06/10/2013 1:45 PM EST) Patholo gist Method Time Signature Neutrophil % 4 (L) 34 - 71 % CERNER MILLENNIUM Lymphocyte % 95 (H) 19 - 53 % CERNER MILLENNIUM Basophil % 1 0 - 2 % CERNER MILLENNIUM Neutrophil Abs 3.6 1.5 - 6.3 CERNER x10(3)/mcL MILLENNIUM Neutr Abs (ANC) 3.60 1.50 - CERNER 6.30 MILLENNIUM x10(3)/mcL Lymphocyte Abs 85.5 (H) 1.0 - 3.6 CERNER x10(3)/mcL MILLENNIUM Basophil Abs 0.9 (H) 0.0 - 0.2 CERNER x10(3)/mcL MILLENNIUM Tot Diff Cell [address] MILLENNIUM Plat Estimate Normal CERNER MILLENNIUM RBC Morphology Normal CERNER MILLENNIUM Smudge Cells Present CERNER MILLENNIUM Specimen Anatomical Collection Method Collection Time Receive d Time (Source) Location / / Volume Laterality Blood specimen 06/10/2013 1:45 PM 014 1:53 (specimen) EST PM EST Resulting Agency Comment Spec In Lab Alan Livingston MD HEMATOLOGY ORDERABLES Performing Organization Address City/State/ZIP Code Phon e Number [address] CERNER MILLENNIUM Nucleated Red Blood Cells (06/10/2013 1:45 PM EST) P athologist Signature nRBC % Auto 0.0 0.0 - 0.2 CERNER % MILLENNIUM nRBC Abs Auto 0.000 0.000 - CERNER 0.012 MILLENNIUM x10(3)/mcL Specimen Anatomical Collection Method Collection Time Receive d Time (Source) Location / / Volume Laterality Blood specimen 06/10/2013 1:45 PM 014 1:53 (specimen) EST PM EST Resulting Agency Comment Spec In Lab Alan Livingston MD HEMATOLOGY ORDERABLES Performing Organization Address City/[facility]/ZIP [facility] Phon e Number [address] CERNER MILLENNIUM (ABNORMAL) Immunoglobulins, Quantitative (06/10/2013 1:45 PM EST) athologist Signature IgG 533 (L) 700 - 1600 CERNER mg/dL MILLENNIUM IgA 60 (L) 70 - 400 CERNER mg/dL MILLENNIUM IgM 26 (L) 40 - 230 CERNER mg/dL MILLENNIUM Comment: Result rechecked. - llu Specimen Anatomical Collection Method Collection Time Receive d Time (Source) Location / / Volume Laterality Blood specimen 06/10/2013 1:45 PM 014 1:53 (specimen) EST PM EST Resulting Agency Comment Spec In Lab Alan Livingston MD CHEMISTRY ORDERABLES Performing Organization Address City/[facility]/ZIP Code Phon e Number [address] CERNER MILLENNIUM Lactate Dehydrogenase (06/10/2013 1:45 PM EST) athologist Signature LDH 196 110 - 220 CERNER unit/L MILLENNIUM Specimen Anatomical Collection Method Collection Time Receive d Time (Source) Location / / Volume Laterality Blood specimen 06/10/2013 1:45 PM 014 1:53 (specimen) EST PM EST Resulting Agency Comment Spec In Lab Alan Livingston MD CHEMISTRY ORDERABLES Performing Organization Address City/[facility]/ZIP [facility] [place] [address] CERNER MILLENNIUM (ABNORMAL) Comprehensive metabolic panel (non-fasting) (06/10/2013 1:45 PM EST) athologist Signature Glucose Lvl 83 60 - 199 CERNER mg/dL MILLENNIUM Comment: Diabetes: >=200 mg/dL plus symp toms BUN 17 8 - 18 mg/dL CERNER MILLENNIUM Creatinine 0.99 0.70 - 1.20 mg/dL CERNER MILL ENNIUM Comment: Please note that the pediatric reference intervals supplied above were not validated at [facility]. Results from pediatri c patients should be interpreted in conjunction to the patient's age, height and muscle mass. Sodium 142 135 - 145 mmol/L CERNER JAVI NIUM Potassium 4.2 3.5 - 5.0 mmol/L CERNER JAVI NIUM Comment: Please note: ??Patients with WBC >100,00 0 may have falsely elevated Potassium levels. ??For accurate Potassium quantif ication in these patients send serum separator tube (gold top) for subsequent determinations. ??Contact the Clinical Chemistry Laboratory if there are any qu estions. Chloride 104 98 - 107 mmol/L CERNER MILLENN IUM CO2 28 22 - 31 mmol/L CERNER MILLENNI UM Anion Gap 10 5 - 15 mmol/L CERNER MILLENNIU M Calcium 9.1 8.5 - 10.5 mg/dL CERNER JAVI NIUM Total Protein 6.4 6.4 - 8.3 gm/dL CERNER MIL LENNIUM Albumin 4.2 3.2 - 5.2 gm/dL CERNER MILLENN IUM AST 20 0 - 30 unit/L CERNER MILLENNIU M ALT 16 0 - 30 unit/L CERNER MILLENNIU M Alk Phos 58 40 - 104 unit/L CERNER MILLENN IUM [...] the following links into your internet browser. http://www.nkdep.nih.gov/lab-evaluation. shtml http://www.kidney.org/professionals/ Specimen Anatomical Collection Method Collection Time Receive d Time (Source) Location / / Volume Laterality Blood specimen 06/10/2013 1:45 PM 014 1:53 (specimen) EST PM EST Resulting Agency Comment Spec In Lab Alan Livingston MD CHEMISTRY ORDERABLES Performing Organization Address City/State/[place] [address] CERNER MILLENNIUM (ABNORMAL) CBC (with Diff) (06/10/2013 1:45 PM EST) P athologist Signature WBC 90.0 4.0 - 10.0 CERNER (Critical) x10(3)/mcL MILLENNIUM Comment: This result has been called to AGUSTIN SO by REJI FLETCHER on 06.10.13 at 14:55, and has been read lisa k (). RBC 4.44 3.93 - 5.22 x10(6)/mcL CERNER MILLENNIUM Hemoglobin 12.8 11.2 - 15.7 gm/dL CERNER MILL ENNIUM Hematocrit 41.1 34.0 - 45.0 % CERNER MILLENNI UM MCV 92.6 79.0 - 94.0 fL CERNER MILLENNI UM MCH 28.8 26.6 - 32.2 pg CERNER MILLENNI UM MCHC 31.1 (L) 32.0 - 36.5 gm/dL [facility] MILLE NNIUM Platelets 188 145 - 370 x10(3)/mcL [facility] LLENNIUM RDWSD 46.9 (H) 35.0 - 46.0 fL CERNER MILLENNI UM RDWCV 13.6 10.9 - 14.4 % CERNER MILLENNIU M MPV 11.5 9.0 - 12.0 fL CERNER MILLENNIU M Specimen Anatomical Collection Method Collection Time Receive d Time (Source) Location / / Volume Laterality Blood specimen 06/10/2013 1:45 PM 014 1:53 (specimen) EST PM EST Resulting Agency Comment Spec In Lab Alan Livingston MD HEMATOLOGY ORDERABLES Performing Organization Address City/[facility]/[place] [address] [facility] MILL[facility]UM documented in this encounter Visit Diagnoses Diagnosis Chronic lymphocytic leukemia Chronic lymphoid leukemia, without menti on of having achieved remission documented in this encounter Care Teams Pantograph Engraver Relationship Specialty Start Date End Date Berkley Madrigal MD PCP - General 04/13/10 02/15/18 AYLEEN Bray [id number] [place] [address] documented as of this encounter
--- OUTSIDE RECORDS SUMMARY | 2022-02-11 01:13 | XMS_ITS | Encounter Summary ---
:1950 Author Organization [place] [address] Care Team Providers Name Role Phone Berkley Madrigal MD Primary Care Provider Encounter Details Date Type Department Care Team Description 12/11/2013 Orders Only Hematology and [place], CLL (chronic lymphocytic leukemia); Oncology at [facility] MD Rod Examination of participant in clinical t rial [facility] [address] [place] [id number] HEMATOLOGY/ONCOLOG [phone] Y DEPT. [place], [place] [address] Social History Tobacco Use Types [...] Ángel Fischer Oncology [facility] ONCOLOGY [place], [place] [address] (Wo rk) 02/11/2022 TH Visit (TeleHealth) Ángel Hill Oncology [facility] DR UMA[address] [place], [place] [address] (Wo rk) 02/11/2022 Infusion Hematology and Oncology 02/11/2022 Office Visit Hematology and Jazzy Armendariz R D Oncology [facility] CESAR HEMATOLOGY AND ONCOLOGY [place], [place] [address] (Wo rk) 02/22/2022 TH Visit (TeleHealth) Hematology and Yaquelin Celis Oncology E, [facility] HEMATOLOGY AND ONCOLOGY [place], [place] [address] (Wo rk) 02/25/2022 Office Visit Ángel Hill Oncology [facility] ONCOLOGY [place], [place] [address] (Wo rk) 02/25/2022 Infusion Hematology and Oncology 03/10/2022 Scheduled View Only Obstetrics and Nurse, Julian COLEMAN, manager transplant 03/10/2022 Office Visit Obstetrics and Shazia Whitley, Gynecology [facility] UROGYNECOLOGY [place], [place] [address] (Wo rk) 03/11/2022 Office Visit Hematology and Ángel Fischer MD [facility] [place] [address] Oncology [address]lyss[address] Joseph[address] ONCOLOGY [place], [place] [phone] 03/11/2022 Infusion Hematology and Oncology 03/25/2022 Office Visit Hematology and Alyssa Joseph, Oncology [address] ONCOLOGY [place], [place] [address] (Wo rk) 03/25/2022 Infusion Hematology and Oncology 03/31/2022 Office Visit Hematology and Alan Livingston M D [facility] DR HEMATOLOGY/[place] [address] [facility] [address] 04/08/2022 Office Visit Hematology and Ángel Fischer MD [facility] [place] [address] Oncology [address]lyss[address] Joseph[address] ONCOLOGY [place], [place] [address] 04/08/2022 Infusion Hematology and Oncology Scheduled Orders Name Type Priority Associated Diagnoses Order S chedule Miscellaneous Lab request Lab Routine CLL (chronic ly mphocytic Expected: 12/16/2013 leukemia) (Approximate), Examination of Expires: 06/2013 participant in clinical trial documented as of this encounter Visit Diagnoses Diagnosis CLL (chronic lymphocytic leukemia) Chronic lymphoid leukemia, without menti on of having achieved remission Examination of participant in clinical t rial documented in this encounter Care Teams Supervisor Public Message Service Relationship Specialty Start Date End Date Berkley Madrigal MD PCP - General 04/13/10 02/15/18 [facility] Katarina [address] [place] [address] documented as of this encounter
--- OUTSIDE RECORDS SUMMARY | 2022-02-11 01:13 | XMS_ITS | Encounter Summary ---
:1950 Author Organization [facility] [place] [address] Care Team Providers Name Role Phone Berkley Madrigal MD Primary Care Provider Encounter Details Date Type Department Care Team Description 03/11/2013 Ancillary Hematology and CLINIC, DR BENJAMIN NGO (chron ic Appointment Oncology at [facility] Sai Cartwright MD [facility] DR HEMATOLOGY/[place] [address] [facility] leukemia) [place] [address] Social History Tobacco Use Types [...] View Only Hematology and Ángel Fischer Oncology [facility] ONCOLOGY [place], [place] [address] (Wo rk) 02/11/2022 TH Visit (TeleHealth) Hematology Ángel Kimbrough Oncology [facility] DR UMANA [place], [place] [address] (Wo rk) 02/11/2022 Infusion Hematology and Oncology 02/11/2022 Office Visit Hematology and Jazzy Armendariz R D Oncology [facility] CESAR HEMATOLOGY AND ONCOLOGY [place], [place] [address] (Wo rk) 02/22/2022 TH Visit (TeleHealth) Hematology and Yaquelin Celis Oncology E, [facility] HEMATOLOGY AND ONCOLOGY [place], [place] [address] (Wo rk) 02/25/2022 Office Visit Hematology Ángel Kimbrough Oncology [facility] DR UMANA [place], [place] [address] (Wo rk) 02/25/2022 Infusion Hematology and Oncology 03/10/2022 Scheduled View Only Obstetrics and Nurse, Julian COLEMAN, immigration guard 03/10/2022 Office Visit Obstetrics and Shazia Whitley, Gynecology [facility] UROGYNECOLOGY [place], [place] 0[address] (Wo rk) 03/11/2022 Office Visit Hematology and Ángel Fischer MD [facility] [place] [address] Oncology [address]lyss[address] Joseph[address] MEDICAL ONCOLOGY [place], [place] [phone] 03/11/2022 Infusion Hematology and Oncology 03/25/2022 Office Visit Hematology and Alyssa Joseph, Oncology [address] MEDICAL ONCOLOGY [place], [place] [phone] (Wo rk) 03/25/2022 Infusion Hematology and Oncology 03/31/2022 Office Visit Hematology and Alan Livingston M D [facility] DR HEMATOLOGY/[place] [address] [facility] [address] 04/08/2022 Office Visit Hematology and Ángel Fischer MD [facility] [place] [address] Oncology Alyssa Joseph[address] MEDICAL ONCOLOGY [place], [place] [phone] 04/08/2022 Infusion Hematology and Oncology documented as of this encounter Visit Diagnoses Diagnosis CLL (chronic lymphocytic leukemia) Chronic lymphoid leukemia, without menti on of having achieved remission documented in this encounter Care Teams Manager Semiconductor Relationship Specialty Start Date End Date Berkley Madrigal MD PCP - General 04/13/10 02/15/18 AYLEEN Bray [address] [place] [address] documented as of this encounter
--- OUTSIDE RECORDS SUMMARY | 2022-02-11 01:13 | XMS_ITS | Encounter Summary ---
:1950 Author Organization [facility] [address] Care Team Providers Name Role Phone Berkley Madrigal MD Primary Care Provider Reason for Visit Reason Onset Date Comments Other 03/13/2013 advanced directive f or healthcare Encounter Details Date Type Department Care Team Description 03/13/2013 Telephone Hematology and Oncology at Vivi Phillips (advanced directive [facility] for healthcare) [place] [address] Social History Tobacco Use Types Packs/Day [...] this encounter Miscellaneous Notes Telephone Encounter - Vivi Phillips RN - 03/13/2013 8:39 AM EDT Completed advanced directive paperwork received from pt via provider. Note Cheyanne Keller listed phong and Freeman Keller as alternative. Paperwork to sec for scanning to [facility]. documented in this encounter Plan of Treatment Upcoming Encounters Date Type Specialty Care Team Description 02/11/2022 Scheduled View Only Hematology and Ángel Fischer Oncology [facility] ONCOLOGY [place], [place] [address] (Shana rk) 02/11/2022 TH Visit (TeleHealth) Hematology Ángel Kimbrough Oncology [facility] ONCOLOGY [place], [place] [address] (Wo rk) 02/11/2022 Infusion Hematology and Oncology 02/11/2022 Office Visit Hematology and Jazzy Armendariz R D Oncology [facility] C[facility]AR HEMATOLOGY AND ONCOLOGY [place], [place] [address] (Wo rk) 02/22/2022 TH Visit (TeleHealth) Hematology and Yaquelin Celis Oncology E, [facility] HEMATOLOGY AND ONCOLOGY [place], [place] [address] (Wo rk) 02/25/2022 Office Visit Hematology and Ángel Fischer Oncology [facility] ONCOLOGY [place], [place] [address] (Wo rk) 02/25/2022 Infusion Hematology and Oncology 03/10/2022 Scheduled View Only Obstetrics and Nurse, Julian COLEMAN, damper fitter 03/10/2022 Office Visit Obstetrics and Shazia Whitley, Gynecology [facility] UROGYNECOLOGY [place], [place] [address] (Wo rk) 03/11/2022 Office Visit Hematology and Ángel Fischer MD [facility] [place] [address] Oncology Alyssa Joseph [address] MEDICAL ONCOLOGY [place], [place] [address] 03/11/2022 Infusion Hematology and Oncology 03/25/2022 Office Visit Hematology and Alyssa Joseph Oncology [address] MEDICAL ONCOLOGY [place], [place] [address] (Wo rk) 03/25/2022 Infusion Hematology and Oncology 03/31/2022 Office Visit Hematology and Alan Livingston M D [facility] HEMATOLOGY/[place] [address] Oncology Nilam So [facility] HEMATOLOGY/[place] [address] 04/08/2022 Office Visit Hematology and Ángel Fischer MD [facility] [place] [address] Oncology Alyssa Joseph [facility]EN[facility] [address] [place] [address] [place] [address] 04/08/2022 Infusion Hematology and Oncology documented as of this encounter Visit Diagnoses Not on filedocumented in this encounter Care Teams Communications Administrator Relationship Specialty Start Date End Date Berkley Madrigal MD PCP - General 04/13/10 02/15/18 AYLEEN Bray [address] [place], [place] [phone] documented as of this encounter
--- OUTSIDE RECORDS SUMMARY | 2022-02-11 01:13 | XMS_ITS | Encounter Summary ---
:1950 Author Organization [facility] [place] [address] Care Team Providers Name Role Phone Berkley Madrigal MD Primary Care Provider Reason for Visit Reason Comments Follow-up Encounter Details Date Type Department Care Team Description 12/16/2013 Follow-Up Hematology and Alan Livingston M D Chronic lymphocytic leukemia; Oncology at [facility] CLL (chronic lymphocytic irene kemia) [facility] DR Perkins HEMATOLOGY/[place] [address] DEPT. [phone] [place], [place] [address] (Wo rk) Social History Tobacco [...] Sign Reading Time Taken Comments Blood Pressure 124/69 12/16/2013 2:31 PM EDT Pulse 74 12/16/2013 2:31 PM EDT Temperature 36.6 ??C (97.9 ??F) 12/16/2013 2:31 PM EDT Respiratory Rate 18 12/16/2013 2:31 PM EDT Oxygen Saturation 98% 12/16/2013 2:31 PM EDT Inhaled Oxygen Concentration - - Weight 73.2 kg (161 lb 6.4 oz) 12/16/2013 2:31 PM EDT Height - - Body Mass Index 27.22 10/28/2013 3:30 PM EDT documented in this encounter Patient Instructions Patient InstructionsGaAlan veras MD - 12/16/2013 2:58 PM EDT Recent Results (from the past 72 hour(s)) COMPREHENSIVE METABOLIC PANEL (NON-FASTING) Component Value Range Glucose Lvl 85 60 - 199 mg/dL BUN 18 8 - 18 mg/dL Creatinine 0.83 0.70 - 1.20 mg/dL Sodium 140 135 - 145 mmol/L Potassium 4.6 3.5 - 5.0 mmol/L Chloride 102 98 - 107 mmol/L CO2 28 22 - 31 mmol/L Anion Gap 10 5 - 15 mmol/L Calcium 9.0 8.5 - 10.5 mg/dL Total Protein 6.1 (*) 6.4 - 8.3 gm/dL Albumin 4.1 3.2 - 5.2 gm/dL AST 22 0 - 30 unit/L ALT 16 0 - 30 unit/L Alk Phos 56 40 - 104 unit/L Total Bilirubin 0.2 0.2 - 1.3 mg/dL Bili, Direct 0.1 0.0 - 0.3 mg/dL Estimated GFR >60 >=60 LACTATE DEHYDROGENASE Component Value Range LDH 218 110 - 220 unit/L HEMOGRAM Component Value Range WBC 86.7 (*) 4.0 - 10.0 x10(3)/mcL RBC 4.31 3.93 - 5.22 x10(6)/mcL Hemoglobin 12.9 11.2 - 15.7 gm/dL Hematocrit 40.7 34.0 - 45.0 % MCV 94.4 (*) 79.0 - 94.0 fL MCH 29.9 26.6 - 32.2 pg MCHC 31.7 (*) 32.0 - 36.5 gm/dL Platelets 156 145 - 370 x10(3)/mcL RDWSD 46.8 (*) 35.0 - 46.0 fL RDWCV 13.9 10.9 - 14.4 % MPV 11.3 9.0 - 12.0 fL documented in this encounter Progress Notes Alan Livingston MD - 12/16/2013 2:33 PM EDT Subjective: Patient ID: Carol Keller [...] 13 deletion (favorable prognosis) Observation only HPI 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 She has continued to feel quite well. Energy is excellent. No infections. No systemic symptoms. No fevers chills or sweats. No lymph node changes. Review of Systems Constitutional: Negative. HENT: Negative. Eyes: Negative. Respiratory: Negative. Negative for cough and shortness of breath. Cardiovascular: Negative. Negative for chest pain, palpitations and leg swelling. Gastrointestinal: Negative. Negative for nausea, vomiting, diarrhea and constipation. Genitourinary: Negative. Musculoskeletal: Negative. Skin: Negative. Neurological: Negative. Negative for weakness and numbness. Hematological: Negative. Psychiatric/Behavioral: Negative. Objective: Physical Exam BP 124/69 Pulse 74 Temp 36.6 ??C (97.9 ??F) (Oral) Resp 18 Wt 73.211 kg (161 lb 6.4 oz) SpO2 98% Constitutional: She is oriented to person, place, [...] No inguinal and no supraclavicular adenopathy present. Ant/postrior cervical nodes 1cm Neurological: She is alert and oriented to person, place, and time. Skin: Skin is warm and dry. Psychiatric: She has a normal mood and affect. Recent Results (from the past 72 hour(s)) COMPREHENSIVE METABOLIC PANEL (NON-FASTING) Component Value Range Glucose Lvl 85 60 - 199 mg/dL BUN 18 8 - 18 mg/dL Creatinine 0.83 0.70 - 1.20 mg/dL Sodium 140 135 - 145 mmol/L Potassium 4.6 3.5 - 5.0 mmol/L Chloride 102 98 - 107 mmol/L CO2 28 22 - 31 mmol/L Anion Gap 10 5 - 15 mmol/L Calcium 9.0 8.5 - 10.5 mg/dL Total Protein 6.1 (*) 6.4 - 8.3 gm/dL Albumin 4.1 3.2 - 5.2 gm/dL AST 22 0 - 30 unit/L ALT 16 0 - 30 unit/L Alk Phos 56 40 - 104 unit/L Total Bilirubin 0.2 0.2 - 1.3 mg/dL Bili, Direct 0.1 0.0 - 0.3 mg/dL Estimated GFR >60 >=60 LACTATE DEHYDROGENASE Component Value Range LDH 218 110 - 220 unit/L HEMOGRAM Component Value Range WBC 86.7 (*) 4.0 - 10.0 x10(3)/mcL RBC 4.31 3.93 - 5.22 x10(6)/mcL Hemoglobin 12.9 11.2 - 15.7 gm/dL Hematocrit 40.7 34.0 - 45.0 % MCV 94.4 (*) 79.0 - 94.0 fL MCH 29.9 26.6 - 32.2 pg MCHC 31.7 (*) 32.0 - 36.5 gm/dL Platelets 156 145 - 370 x10(3)/mcL RDWSD 46.8 (*) 35.0 - 46.0 fL RDWCV 13.9 10.9 - 14.4 % MPV 11.3 9.0 - 12.0 fL NUCLEATED RED BLOOD CELLS Component Value Range nRBC % Auto 0.0 0.0 - 0.2 % nRBC Abs Auto 0.000 0.000 - 0.012 x10(3)/mcL DIFFERENTIAL, MANUAL Component Value Range Neutrophil % 8 (*) 34 - 71 % Lymphocyte % 90 (*) 19 - 53 % Monocyte % 2 (*) 4 - 13 % Neutrophil Abs 6.9 (*) 1.5 - 6.3 x10(3)/mcL Neutr Abs (ANC) 6.93 (*) 1.50 - 6.30 x10(3)/mcL Lymphocyte Abs 78.4 (*) 1.0 - 3.6 x10(3)/mcL Monocyte Abs 1.3 (*) 0.2 - 1.0 x10(3)/mcL Tot Diff Cell Ct 100 Plat Estimate Normal RBC Morphology Normal Smudge Cells Present Assessment and Plan: 63-year-old female with chronic lymphocytic leukemia. She is asymptomatic. She has not developed progressive adenopathy, anemia or thrombocytopenia. In fact her lymphocyte count has decreased over the last couple of readings. At this point we will continue to watch her without any therapy. We will see her again in 4 months. If she has more problems before then she will let us know. documented in this encounter Plan of Treatment Upcoming Encounters Date Type Specialty Care Team Description 02/11/2022 Scheduled View Only Hematology Ángel Kimbrough Oncology [facility] [address]MA[address] [place] [id number] (Wo rk) 02/11/2022 TH Visit (TeleHealth) Ángel Hill Oncology [facility] DR [address]MA[address] [place], [place] [address] (Wo rk) 02/11/2022 Infusion Hematology and Oncology 02/11/2022 Office Visit Hematology and Jazzy Armendariz R D Oncology [facility] CESAR HEMATOLOGY AND ONCOLOGY [place] [phone] (Wo rk) 02/22/2022 TH Visit (TeleHealth) Hematology and Yaquelin Celis Oncology E, [facility] HEMATOLOGY AND ONCOLOGY [place], [place] [address] (Wo rk) 02/25/2022 Office Visit Ángel Hill Oncology [facility] DR UMA[address] [place], [place] [address] (Wo rk) 02/25/2022 Infusion Hematology and Oncology 03/10/2022 Scheduled View Only Obstetrics and Nurse, Julian COLEMAN, shock absorption floor layer 03/10/2022 Office Visit Obstetrics and Shazia Whitley, Gynecology [employer] TECHNIC[employer] [facility] UROGYNECOLOGY [place], [place] [address] (Wo rk) 03/11/2022 Office Visit Hematology and Ángel Fischer MD [facility] [place] [address] Oncology [address]lyssa Joseph[address] MEDICAL ONCOLOGY [place], [place] [phone] 03/11/2022 Infusion Hematology and Oncology 03/25/2022 Office Visit Hematology and Alyssa Joseph, Oncology [address] MEDICAL ONCOLOGY [place], [place] [phone] (Wo rk) 03/25/2022 Infusion Hematology and Oncology 03/31/2022 Office Visit Hematology and Alan Livingston M D [facility] DR HEMATOLOGY/[place] [address] [facility]cology [facility] [address] 04/08/2022 Office Visit Hematology and Ángel Fischer MD [facility] [place] [address] Oncology Alyssa Joseph[address] MEDICAL ONCOLOGY [place], [place] [phone] 04/08/2022 Infusion Hematology and Oncology documented as of this encounter Procedures Procedure Name Priority Date/Time Associated Comments Diagnosis DIFFERENTIAL, MANUAL STAT 12/16/2013 1:51 PM R esults for this EDT procedure are i n the results section. NUCLEATED RED BLOOD STAT 12/16/2013 1:51 PM Re sults for this CELLS EDT procedure are i n the results section. HEMOGRAM STAT 12/16/2013 1:51 PM Chronic lymphocytic Re sults for this EDT leukemia procedure are i n the results section. CBC (WITH DIFF) STAT 12/16/2013 1:51 PM Chronic lymphocytic EDT leukemia LACTATE DEHYDROGENASE STAT 12/16/2013 1:51 PM Chronic lymph ocytic Results for this EDT leukemia procedure are i n the results section. COMPREHENSIVE STAT 12/16/2013 1:51 PM Chronic lymphocytic R esults for this METABOLIC PANEL EDT leukemia procedure ar e in (NON-FASTING) the results section. documented in this encounter Results (ABNORMAL) Immunoglobulins, Quantitative (04/14/2014 10:37 AM EST) [...] Organization Address City/State/ZIP [place] [address] CERNER MILLENNIUM (ABNORMAL) Comprehensive [...] intervals supplied above were not validated at [facility]. Results from pediatri c patients should be [...] the following links into your internet browser. [email or web address] Specimen Anatomical Collection Method Collection Time Receive d Time (Source) Location / / Volume Laterality Blood specimen 04/14/2014 10:37 4 (specimen) AM EST 10:42 AM EST Resulting Agency Comment Spec In Lab Alan Livingston MD CHEMISTRY ORDERABLES Performing Organization Address City/State/[place] [address] CERNER MILLENNIUM (ABNORMAL) Differential, Manual (12/16/2013 1:51 PM EDT) Patholo gist Method Time Signature Neutrophil % 8 (L) 34 - 71 % CERNER MILLENNIUM Lymphocyte % 90 (H) 19 - 53 % CERNER MILLENNIUM Monocyte % 2 (L) 4 - 13 % CERNER MILLENNIUM Neutrophil Abs 6.9 (H) 1.5 - 6.3 CERNER x10(3)/mcL MILLENNIUM Neutr Abs (ANC) 6.93 (H) 1.50 - CERNER 6.30 MILLENNIUM x10(3)/mcL Lymphocyte Abs 78.4 (H) 1.0 - 3.6 CERNER x10(3)/mcL MILLENNIUM Monocyte Abs 1.3 (H) 0.2 - 1.0 CERNER x10(3)/mcL MILLENNIUM Tot Diff Cell [address] MILLENNIUM Plat Estimate Normal CERNER MILLENNIUM RBC Morphology Normal CERNER MILLENNIUM Smudge Cells Present CERNER MILLENNIUM Specimen Anatomical Collection Method Collection Time Receive d Time (Source) Location / / Volume Laterality Blood specimen 12/16/2013 1:51 PM 014 1:59 (specimen) EDT PM EDT Resulting Agency Comment Spec In Lab Alan Livingston MD HEMATOLOGY ORDERABLES Performing Organization Address City/State/ZIP Code Phon e Number [address] CERNER MILLENNIUM Nucleated Red Blood Cells (12/16/2013 1:51 PM EDT) athologist Signature nRBC % Auto 0.0 0.0 - 0.2 CERNER % MILLENNIUM nRBC Abs Auto 0.000 0.000 - CERNER 0.012 MILLENNIUM x10(3)/mcL Specimen Anatomical Collection Method Collection Time Receive d Time (Source) Location / / Volume Laterality Blood specimen 12/16/2013 1:51 PM 014 1:59 (specimen) EDT PM EDT Resulting Agency Comment Spec In Lab Alan Livingston MD HEMATOLOGY ORDERABLES Performing Organization Address City/[facility]/ZIP Code Phon e Number [address] CERNER MILLENNIUM (ABNORMAL) Hemogram (12/16/2013 1:51 PM EDT) P athologist Signature WBC 86.7 4.0 - 10.0 CERNER (Critical) x10(3)/mcL MILLENNIUM Comment: This result has been called to SALEEM MICHAEL by TERRY SEGUNDO on 12.16.13 at 14:28, and has been read lisa k (). RBC 4.31 3.93 - 5.22 x10(6)/mcL CERNER MILLENNIUM Hemoglobin 12.9 11.2 - 15.7 gm/dL CERNER MILL ENNIUM Hematocrit 40.7 34.0 - 45.0 % CERNER MILLENNI UM MCV 94.4 (H) 79.0 - 94.0 fL CERNER MILLENNI UM MCH 29.9 26.6 - 32.2 pg CERNER MILLENNI UM MCHC 31.7 (L) 32.0 - 36.5 gm/dL CERNER MILLE NNIUM Platelets 156 145 - 370 x10(3)/mcL CERNER AR LLENNIUM RDWSD 46.8 (H) 35.0 - 46.0 fL CERNER MILLENNI UM RDWCV 13.9 10.9 - 14.4 % CERNER MILLENNIU M MPV 11.3 9.0 - 12.0 fL CERNER MILLENNIU M Specimen Anatomical Collection Method Collection Time Receive d Time (Source) Location / / Volume Laterality Blood specimen 12/16/2013 1:51 PM 014 1:59 (specimen) EDT PM EDT Resulting Agency Comment Spec In Lab Alan Livingston MD HEMATOLOGY ORDERABLES Performing Organization Address City/[facility]/ZIP [place] [address] CERNER MILLENNIUM Lactate Dehydrogenase (12/16/2013 1:51 PM EDT) P athologist Signature LDH 218 110 - 220 CERNER unit/L MILLENNIUM Specimen Anatomical Collection Method Collection Time Receive d Time (Source) Location / / Volume Laterality Blood specimen 12/16/2013 1:51 PM 014 1:59 (specimen) EDT PM EDT Resulting Agency Comment Spec In Lab Alan Livingston MD CHEMISTRY ORDERABLES Performing Organization Address City/[facility] Code Phon e Number [facility] [place] [address] CERNER MILLENNIUM (ABNORMAL) Comprehensive metabolic panel (non-fasting) (12/16/2013 1:51 PM EDT) athologist Signature Glucose Lvl 85 60 - 199 CERNER mg/dL MILLENNIUM Comment: Diabetes: >=200 mg/dL plus symp toms BUN 18 8 - 18 mg/dL CERNER MILLENNIUM Creatinine 0.83 0.70 - 1.20 mg/dL CERNER MILL ENNIUM Comment: Please note that the pediatric reference intervals supplied above were not validated at [facility]. Results from pediatri c patients should be interpreted in conjunction to the patient's age, height and muscle mass. Sodium 140 135 - 145 mmol/L CERNER JAVI NIUM Potassium 4.6 3.5 - 5.0 mmol/L CERNER JAVI NIUM [...] - 15 mmol/L CERNER MILLENNIU M Calcium 9.0 8.5 - 10.5 mg/dL CERNER JAVI NIUM Total Protein 6.1 (L) 6.4 - 8.3 gm/dL CERNER MIL LENNIUM Albumin 4.1 3.2 - 5.2 gm/dL CERNER MILLENN IUM AST 22 0 - 30 unit/L CERNER MILLENNIU M ALT 16 0 - 30 unit/L CERNER MILLENNIU M Alk Phos 56 40 - 104 unit/L CERNER MILLENN IUM [...] the following links into your internet browser. [email or web address] Specimen Anatomical Collection Method Collection Time Receive d Time (Source) Location / / Volume Laterality Blood specimen 12/16/2013 1:51 PM 014 1:59 (specimen) EDT PM EDT Resulting Agency Comment Spec In Lab Alan Livingston MD CHEMISTRY ORDERABLES Performing Organization Address City/State/ZIP Code Phon e Number [address] [facility] documented in this encounter Visit Diagnoses Diagnosis Chronic lymphocytic leukemia Chronic lymphoid leukemia, without menti on of having achieved remission CLL (chronic lymphocytic leukemia) Chronic lymphoid leukemia, without menti on of having achieved remission documented in this encounter Care Teams Avionics System Engineer Relationship Specialty Start Date End Date Berkley Madrigal MD PCP - General 04/13/10 02/15/18 AYLEEN Katarina [address] [place] [address] documented as of this encounter
--- OUTSIDE RECORDS SUMMARY | 2022-02-11 01:13 | XMS_ITS | Encounter Summary ---
:1950 Author Organization [facility] Address [address] [place] [address] Care Team Providers Name Role Phone Berkley Madrigal MD Primary Care Provider Reason for Visit Reason Comments Diabetes Encounter Details Date Type Department Care Team Description 04/25/2013 Office Visit Endocrinology at [facility] C Maribel Ware, Type II or [facility] unspecified type Drive [facility] [place] [place] [address] without mention of [phone] ENDOCRINOLOGY complication, not DEPT. stated as [place], [place] [address] uncontrolled (Primary [phone] Dx) (Work) Social History Tobacco Use Types [...] Sign Reading Time Taken Comments Blood Pressure 133/86 04/25/2013 8:55 AM EST Pulse 67 04/25/2013 8:55 AM EST Temperature - - Respiratory Rate - - Oxygen Saturation - - Inhaled Oxygen Concentration - - Weight 74.5 kg (164 lb 3.2 oz) 04/25/2013 8:55 AM EST Height 164.1 cm (5' 4.61) 04/25/2013 8:55 AM EST Body Mass Index 27.66 04/25/2013 8:55 AM EST documented in this encounter Patient Instructions Patient InstructionsMaribel Ware APRN - 04/25/2013 10:00 AM EST Discussed CGMS Will schedule endocrine testing documented in this encounter Progress Notes Maribel Ware APRN - 04/25/2013 9:53 AM EST Prefers to be called Anahi. DATE OF OFFICE VISIT: 04/25/2013 REASON FOR VISIT: New patient to endocrinology for type 2 DM, controlled by diet and physical activity and symptomatic hypoglycemia. BRIEF HISTORY: Presents with friend. States she had symptoms of hypoglycemia dating back to age 15. She was diagnosed with type 2 DM three years ago. Lost 40 pounds by eating smaller portions and was able to stop glipizide one and a half years ago. Family history is strong for diabetes, mother had DM. Maternal grandmother had DM. Paternal grandmother may have had type 1 diabetes. Past medical history is significant for CLL, GERD. The patient states she thinks there may be another hormonal problem since she is not able to stop the symptomatic hypoglycemia. 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 States it is very disturbing when she has hypoglycemic symptoms. 24-HOUR MEAL PLAN: She has met with the disability advocate and has been advised to eat small meals every two hours that contains some protein, but she is worried about weight gain. Breakfast is oatmeal, few raisins, six almonds, and one low-fat cheese stick. Morning snack is Bangladeshi yogurt. Lunch was one slice of bread with ham and mayonnaise and apple. Evening meal is soup or salad with meat and homemade apple sauce. Evening snack is low-calorie ice cream. PHYSICAL ACTIVITY: Walking the dogs. REVIEW OF SYSTEMS: Depression and mood: Overall, is doing well. Eyes: History of a retinal tear, not related to diabetes. Followed closely by hotel and dining room cashier. No recent headaches or chest pain or shortness of breath. GI symptoms, takes medication for GERD. Sleep pattern has been much better since resuming Premarin to the past month. She has history of hysterectomy at age 30 and took Premarin for five years, but the hot flashes were terrible and now she is able to sleep much better since resuming the hormone replacement. PHYSICAL EXAMINATION: Appearance: She appears in excellent health. Weight 164 pounds. Blood pressure 133/86. Eyes: No retinopathy by green light exam. Neck: Few enlarged lymph nodes palpated. No thyromegaly. Lungs are clear to auscultation. Heart regular rate and rhythm, no murmurs. Feet: Skin is normal. Pulses are normal. Neuro: Normal sensation to 10 g of pressure. She does have one callus on right first toe medial aspect. IMPRESSION AND PLAN: Diabetes mellitus type 2, controlled with healthy meal plan and physical activity. Reviewed blood glucose log, lowest glucose is 72. Discussed using CGMS,but she does not feel that would be helpful. She states she knows she has hypoglycemia and she tests often enough when she has symptoms. Consult with Dr. Rich who advises an endocrine testing and patient will bring her own meal that she knows frequently causes symptoms of hypoglycemia. Patient brings hemoglobin A1c result, 6.1%. Brings thyroid panel result, all within reference range. She wonders if there is any endocrine testing that should be done to find the etiology of the hypoglycemia. This was a 47-minute office visit with 46 minutes spent counseling face to face with patient and friend, both are nurses, in the management of glucose levels, reviewing her healthy meal plan, congratulating her with weight loss efforts and physical activity efforts and discussing endocrine testing for further evaluation of symptomatic hypoglycemia. Total cholesterol was 215, triglycerides 94, LDL 136. If patient needs further endocrine appointment, schedule followup with Dr. Pasquale Rich. documented in this encounter Plan of Treatment Upcoming Encounters Date Type Specialty Care Team Description 02/11/2022 Scheduled View Only Hematology and Ángel Fischer Oncology [facility] DR UMANA [place], [place] [address] (Wo rk) 02/11/2022 TH Visit (TeleHealth) Ángel Hill Oncology [facility] DR UMANA [place], [place] [address] (Wo rk) 02/11/2022 Infusion Hematology and Oncology 02/11/2022 Office Visit Hematology and Jazzy Armendariz R D Oncology [facility] HEMATOLOGY AND ONCOLOGY [place], [place] [address] (Wo rk) 02/22/2022 TH Visit (TeleHealth) Hematology and Yaquelin Celis Oncology E, [facility] HEMATOLOGY KIRK UMANA [place], [place] [address] (Wo rk) 02/25/2022 Office Visit Ángel Hill Oncology [facility] DR LYNDSAY [place], [place] [address] (Wo rk) 02/25/2022 Infusion Hematology and Oncology 03/10/2022 Scheduled View Only Obstetrics and Nurse, Julian COLEMAN, career information specialist 03/10/2022 Office Visit Obstetrics and Shazia Whitley, Gynecology [facility] UROGYNECOLOGY [place], [place] [address] (Wo rk) 03/11/2022 Office Visit Hematology and Ángel Fischer MD [facility] [place] [address] Oncology Alyssa Joseph[address] ONCOLOGY [place], [place] [phone] 03/11/2022 Infusion Hematology and Oncology 03/25/2022 Office Visit Hematology and Alyssa Joseph, Oncology [address] ONCOLOGY [place], [place] [phone] (Wo rk) 03/25/2022 Infusion Hematology and Oncology 03/31/2022 Office Visit Hematology and Alan Livingston M D [facility] DR HEMATOLOGY/[place] [address] Oncology [facility] [address] 04/08/2022 Office Visit Hematology and Ángel Fischer MD [facility] [place] [address] Oncology [address]lyss[address] Joseph[address] ONCOLOGY [place], [place] [phone] 04/08/2022 Infusion Hematology and Oncology documented as of this encounter Visit Diagnoses Diagnosis Type II or unspecified type diabetes omer litus without mention of complication, not stated as uncontrolled - Primary documented in this encounter Care Teams Panel Flow Machine Operator Relationship Specialty Start Date End Date Berkley Madrigal MD PCP - General 04/13/10 02/15/18 AYLEEN Bray [address] [place] [address] documented as of this encounter
--- OUTSIDE RECORDS SUMMARY | 2022-02-11 01:13 | XMS_ITS | Encounter Summary ---
:1950 Author Organization [facility] Address [address] [place] [address] Care Team Providers Name Role Phone Berkley Madrigal MD Primary Care Provider Encounter Details Date Type Department Care Team Description 10/23/2013 Orders Only Endocrinology at [facility] Maribel Julian, Type II or unspecified [facility] GIZZARD PEELER type diabetes mellitus [facility] [place] [address] CENTER iqra Null [phone] ENDOCRINOLOGY stated as unco ntrolled DEPT. (Primary Dx) [place], [place] [address] Social History Tobacco Use Types [...] Fischer Oncology [facility] ONCOLOGY [place], [place] [address] (Wo rk) 02/11/2022 TH Visit (TeleHealth) Ángel Hill Oncology [facility] DR UMANA [place], [place] [address] (Wo rk) 02/11/2022 Infusion Hematology and Oncology 02/11/2022 Office Visit Hematology and Jazzy Armendariz R D Oncology [facility] HEMATOLOGY AND ONCOLOGY [place], [place] [address] (Wo rk) 02/22/2022 TH Visit (TeleHealth) Hematology and Yaquelin Celis Oncology Daniel, [facility] HEMATOLOGY AND ONCOLOGY [place], [place] [address] (Wo rk) 02/25/2022 Office Visit Hematology Ángel Kimbrough Oncology [facility] ONCOLOGY [place], [place] [address] (Wo rk) 02/25/2022 Infusion Hematology and Oncology 03/10/2022 Scheduled View Only Obstetrics and Nurse, Julian COLEMAN, registered radiation therapist 03/10/2022 Office Visit Obstetrics and Shazia Whitley, Gynecology [facility] UROGYNECOLOGY [place], [place] [address] (Wo rk) 03/11/2022 Office Visit Hematology and Ángel Fischer MD [facility] [place] [address] Oncology Alyssa Joseph[address] ONCOLOGY [place], [place] [address] 03/11/2022 Infusion Hematology and Oncology 03/25/2022 Office Visit Hematology and Alyssa Joseph, Oncology [address] ONCOLOGY [place], [place] [address] (Wo rk) 03/25/2022 Infusion Hematology and Oncology 03/31/2022 Office Visit Hematology and Alan Livingston M D [facility] DR HEMATOLOGY/[place] [address] Oncology [facility] [address] 04/08/2022 Office Visit Hematology and Ángel Fischer MD [facility] [place] [address] Oncology Alyss[address] Joseph[address] ONCOLOGY [place], [place] [phone] 04/08/2022 Infusion Hematology and Oncology documented as of this encounter Visit Diagnoses Diagnosis Type II or unspecified type diabetes omer litus without mention of complication, not stated as uncontrolled - Primary documented in this encounter Care Teams Golf Club Facer Relationship Specialty Start Date End Date Berkley Madrigal MD PCP - General 04/13/10 02/15/18 AYLEEN Bray [address] [place] [address] documented as of this encounter
--- OUTSIDE RECORDS SUMMARY | 2022-02-11 01:13 | XMS_ITS | Encounter Summary ---
:1950 Author Organization [facility] [place] [address] Care Team Providers Name Role Phone Berkley aMdrigal MD Primary Care Provider Encounter Details Date Type Department Care Team Description 06/05/2013 Orders Only Hematology and Alan Livingston M D CLL (chronic Oncology at [facility] lymphocytic leukemia) [facility] (Primary Dx) [facility] HEMATOLOGY/[place] [address] Y DEPT. [phone] [place], [place] [address] Social History Tobacco Use Types [...] View Only Hematology and Ángel Fischer, Oncology [facility] ONCOLOGY [place] [id number] (Wo rk) 02/11/2022 TH Visit (TeleHealth) Ángel Hill Oncology [facility] DR UMANA [place], [place] [address] (Wo rk) 02/11/2022 Infusion Hematology and Oncology 02/11/2022 Office Visit Hematology and Jazzy Armendariz R D Oncology [facility] HEMATOLOGY AND ONCOLOGY [place], [place] [address] (Wo rk) 02/22/2022 TH Visit (TeleHealth) Hematology and Yaquelin Celis Oncology Daniel, [facility] HEMATOLOGY AND ONCOLOGY [place], [place] [address] (Wo rk) 02/25/2022 Office Visit Ángel Hill Oncology [facility] ONCOLOGY [place], [place] [address] (Wo rk) 02/25/2022 Infusion Hematology and Oncology 03/10/2022 Scheduled View Only Obstetrics and Nurse, Julian COLEMAN, rn flight 03/10/2022 Office Visit Obstetrics and Shazia Whitley, Gynecology [facility] UROGYNECOLOGY [place], [place] [address] (Wo rk) 03/11/2022 Office Visit Hematology and Ángel Fischer MD [facility] [place] [address] [address] [phone] 03/11/2022 Infusion Hematology and Oncology 03/25/2022 Office Visit Hematology and Alyssa Joseph, Oncology [address] ONCOLOGY [place], [place] [phone] (Wo rk) 03/25/2022 Infusion Hematology and Oncology 03/31/2022 Office Visit Hematology and Alan Livingston M D [facility] DR HEMATOLOGY/[place] [address] Oncology Nilam So [facility] DR HEMATOLOGY/[place] [address] 04/08/2022 Office Visit Hematology and Ángel Fischer MD [facility] [place] [address] Oncology Alyss[address] Joseph[address] ONCOLOGY [place], [place] [phone] 04/08/2022 Infusion Hematology and Oncology Scheduled Orders Name Type Priority Associated Diagnoses Order S chedule Miscellaneous Lab request Lab Routine CLL (chronic ly mphocytic Expected: 06/10/2013, leukemia) Expires: 2013 documented as of this encounter Visit Diagnoses Diagnosis CLL (chronic lymphocytic leukemia) - Cordelia watt Chronic lymphoid leukemia, without menti on of having achieved remission documented in this encounter Care Teams Rubber Tubing Backer Relationship Specialty Start Date End Date Berkley Madrigal MD PCP - General 04/13/10 02/15/18 AYLEEN Bray [address] [place] [address] documented as of this encounter
--- OUTSIDE RECORDS SUMMARY | 2022-02-11 01:13 | XMS_ITS | Encounter Summary ---
:1950 Author Organization [facility] [place] [address] Care Team Providers Name Role Phone Berkley Madrigal MD Primary Care Provider Reason for Visit Reason Onset Date Comments Diabetes 10/23/2013 Encounter Details Date Type Department Care Team Description 10/23/2013 Telephone Endocrinology at [facility] Maribel Julian APRN [facility] D [facility] [address] [address] ENDOCRINOLOGY DEPT. [phone] [place], [place] [address] (Wo rk) Social History Tobacco [...] this encounter Miscellaneous Notes Telephone Encounter - Maribel Ware APRN - 10/23/2013 8:08 AM EDT External lab orders mailed to pt documented in this encounter Plan of Treatment Upcoming Encounters Date Type Specialty Care Team Description 02/11/2022 Scheduled View Only Hematology and Ángel Fischer Oncology [facility] ONCOLOGY [place], [place] [address] (Wo rk) 02/11/2022 TH Visit (TeleHealth) Hematology Ángel Kimbrough Oncology [facility] ONCOLOGY [place], [place] [address] (Wo rk) 02/11/2022 Infusion Hematology and Oncology 02/11/2022 Office Visit Hematology and Jazzy Armendariz R D Oncology [facility] CESAR HEMATOLOGY AND ONCOLOGY [place], [place] [address] (Wo rk) 02/22/2022 TH Visit (TeleHealth) Hematology and Yaquelin Celis Oncology E, [facility] HEMATOLOGY AND ONCOLOGY [place], [place] [address] (Wo rk) 02/25/2022 Office Visit Hematology and Ángel Fischer, Oncology [facility] ONCOLOGY [place], [place] [address] (Wo rk) 02/25/2022 Infusion Hematology and Oncology 03/10/2022 Scheduled View Only Obstetrics and Nurse, Julian COLEMAN, general partner 03/10/2022 Office Visit Obstetrics and Gutierrez, Shazia Baer, Gynecology [facility] UROGYNECOLOGY [place], [place] [address] (Wo rk) 03/11/2022 Office Visit Hematology and Ángel Fischer MD [facility] [place] [address] Oncology Alyssa Joseph, [address] MEDICAL ONCOLOGY [place], [place] [address] 03/11/2022 Infusion Hematology and Oncology 03/25/2022 Office Visit Hematology and Alyssa Joseph, Oncology [address] [place] [address] (Wo rk) 03/25/2022 Infusion Hematology and Oncology 03/31/2022 Office Visit Hematology and Alan Livingston M D [facility] HEMATOLOGY/[place] [address] [facility] [address] 04/08/2022 Office Visit Hematology and Ángel Fischer MD [facility] [place] [address] Oncology Alyssa Joseph, BRIDGE WELDER [address] [place] [address] MEDICAL ONCOLOGY [place], [place] [phone] 04/08/2022 Infusion Hematology and Oncology documented as of this encounter Visit Diagnoses Not on filedocumented in this encounter Care Teams Laboratory Courier Relationship Specialty Start Date End Date Berkley Madrigal MD PCP - General 04/13/10 02/15/18 [facility] Katarina [address] [place], [place] [address] documented as of this encounter
--- OUTSIDE RECORDS SUMMARY | 2022-02-11 01:13 | XMS_ITS | Encounter Summary ---
:1950 Author Organization [facility] [place] [address] Care Team Providers Name Role Phone Berkley Madrigal MD Primary Care Provider Encounter Details Date Type Department Care Team Description 06/10/2013 Ancillary Hematology and CLINIC, DR BENJAMIN [facility] (chron ic Appointment Oncology at [facility] Alan Livingston MD [facility] HEMATOLOGY/[place] [address] lymphocytic [facility] leukemia) [place] [address] Social History Tobacco Use Types [...] Ángel Fischer Oncology [facility] ONCOLOGY [place], [place] [address] (Wo rk) 02/11/2022 TH Visit (TeleHealth) Hematology Ángel Kimbrough Oncology [facility] [address] UMANA [place], [place] [address] (Wo rk) 02/11/2022 Infusion Hematology and Oncology 02/11/2022 Office Visit Hematology and Jazzy Armendariz R D Oncology [facility] HEMATOLOGY AND ONCOLOGY [place], [place] [address] (Wo rk) 02/22/2022 TH Visit (TeleHealth) Hematology and Yaquelin Celis Oncology E, [facility] HEMATOLOGY KIRK ONCOLOGY [place], [place] [address] (Wo rk) 02/25/2022 Office Visit Ángel Hill Oncology [facility] DR UMANA [place], [place] [address] (Wo rk) 02/25/2022 Infusion Hematology and Oncology 03/10/2022 Scheduled View Only Obstetrics and Nurse, Julian COLEMAN, development director 03/10/2022 Office Visit Obstetrics and Shazia Whitley, Gynecology [facility] UROGYNECOLOGY [place], [place] [address] (Wo rk) 03/11/2022 Office Visit Hematology and Ángel Fischer MD [facility] [place] [address] On[address] Joseph[address] ONCOLOGY [place], [place] [phone] 03/11/2022 Infusion Hematology and Oncology 03/25/2022 Office Visit Hematology and Alyssa Joseph, Oncology [address] ONCOLOGY [place], [place] [phone] (Wo rk) 03/25/2022 Infusion Hematology and Oncology 03/31/2022 Office Visit Hematology and Alan Livingston M D [facility] DR HEMATOLOGY/[place] [address] [facility]cology [facility] [address] 04/08/2022 Office Visit Hematology and Ángel Fischer MD [facility] [place] [address] On[address]lyss[address] Joseph[address] MEDICAL ONCOLOGY [place], [place] [phone] 04/08/2022 Infusion Hematology and Oncology documented as of this encounter Visit Diagnoses Diagnosis CLL (chronic lymphocytic leukemia) Chronic lymphoid leukemia, without menti on of having achieved remission documented in this encounter Care Teams Frit Mixer Relationship Specialty Start Date End Date Berkley Madrigal MD PCP - General 04/13/10 02/15/18 AYLEEN Bray [address] [place] [address] documented as of this encounter
--- OUTSIDE RECORDS SUMMARY | 2022-02-11 01:13 | XMS_ITS | Encounter Summary ---
:1950 Author Organization [facility] [place] [address] Care Team Providers Name Role Phone Berkley Madrigal MD Primary Care Provider Reason for Visit Reason Comments Follow-up Encounter Details Date Type Department Care Team Description 09/09/2013 Follow-Up Hematology and Alan Livingston M D Chronic lymphocytic Oncology at [facility] leukemia [facility] DR Perkins HEMATOLOGY/[place] [address] DEPT. [phone] [place], [place] [address] (Wo rk) Social History Tobacco [...] Sign Reading Time Taken Comments Blood Pressure 134/62 09/09/2013 3:14 PM EDT Pulse 89 09/09/2013 3:14 PM EDT Temperature 36.6 ??C (97.9 ??F) 09/09/2013 3:14 PM EDT Respiratory Rate 18 09/09/2013 3:14 PM EDT Oxygen Saturation 100% 09/09/2013 3:14 PM EDT Inhaled Oxygen Concentration - - Weight 73.2 kg (161 lb 6 oz) 09/09/2013 3:14 PM EDT Height 164 cm (5' 4.57) 09/09/2013 3:14 PM EDT Body Mass Index 27.22 09/09/2013 3:14 PM EDT documented in this encounter Patient Instructions Patient InstructionsNilam So, REPORTER ANCHOR - 09/09/2013 3:21 PM EDT . Recent Results (from the past 72 hour(s)) COMPREHENSIVE METABOLIC PANEL (NON-FASTING) Component Value Range Glucose Lvl 133 60 - 199 mg/dL BUN 17 8 - 18 mg/dL Creatinine 0.98 0.70 - 1.20 mg/dL Sodium 142 135 - 145 mmol/L Potassium 3.9 3.5 - 5.0 mmol/L Chloride 105 98 - 107 mmol/L CO2 29 22 - 31 mmol/L Anion Gap 8 5 - 15 mmol/L Calcium 9.2 8.5 - 10.5 mg/dL Total Protein 6.1 (*) 6.4 - 8.3 gm/dL Albumin 4.1 3.2 - 5.2 gm/dL AST 25 0 - 30 unit/L ALT 19 0 - 30 unit/L Alk Phos 51 40 - 104 unit/L Total Bilirubin 0.2 0.2 - 1.3 mg/dL Bili, Direct 0.1 0.0 - 0.3 mg/dL Estimated GFR 57 (*) >=60 LACTATE DEHYDROGENASE Component Value Range LDH 199 110 - 220 unit/L BP 134/62 Pulse 89 Temp 36.6 ??C (97.9 ??F) (Oral) Resp 18 Ht 164 cm (5' 4.57) Wt 73.2 kg(161 lb 6 oz) BMI 27.22 kg/m2 SpO2 100% documented in this encounter Progress Notes Nilam So APRN - 09/09/2013 3:21 PM EDT Subjective: Patient ID: Carlo Keller is a 63 y.o. female here for f/u of CLL Patient Active Problem List Diagnosis ??? Verruca vulgaris ??? Macular pucker, right eye ??? Horseshoe retinal tear, right eye ??? SVT (supraventricular tachycardia) ??? Urinary incontinence, overflow ??? GERD (gastroesophageal reflux disease) ??? Diabetes mellitus ??? 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 Cytogenetics 13 deletion (favorable prognosis) HPI Carol is doing quite well - her biggest challenge has been controlling her DM - episodes of hypoglycemia have been concerning - she is being followed by endocrine and PCP for this. She has had no recent infections, no new adenopathy. Her weight has been stable. 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 Her daughter is stationed in [place] and she is looking forward to trip over sometime next year. Review of Systems Constitutional: Negative. HENT: Negative. [...] CBC (WITH DIFF) Component Value Range WBC 103.8 (*) 4.0 - 10.0 x10(3)/mcL RBC 4.39 3.93 - 5.22 x10(6)/mcL Hemoglobin 13.0 11.2 - 15.7 gm/dL Hematocrit 41.4 34.0 - 45.0 % MCV 94.3 (*) 79.0 - 94.0 fL MCH 29.6 26.6 - 32.2 pg MCHC 31.4 (*) 32.0 - 36.5 gm/dL Platelets 171 145 - 370 x10(3)/mcL RDWSD 47.1 (*) 35.0 - 46.0 fL RDWCV 14.0 10.9 - 14.4 % MPV 11.5 9.0 - 12.0 fL COMPREHENSIVE METABOLIC PANEL (NON-FASTING) Component Value Range Glucose Lvl 133 60 - 199 mg/dL BUN 17 8 - 18 mg/dL Creatinine 0.98 0.70 - 1.20 mg/dL Sodium 142 135 - 145 mmol/L Potassium 3.9 3.5 - 5.0 mmol/L Chloride 105 98 - 107 mmol/L CO2 29 22 - 31 mmol/L Anion Gap 8 5 - 15 mmol/L Calcium 9.2 8.5 - 10.5 mg/dL Total Protein 6.1 (*) 6.4 - 8.3 gm/dL Albumin 4.1 3.2 - 5.2 gm/dL AST 25 0 - 30 unit/L ALT 19 0 - 30 unit/L Alk Phos 51 40 - 104 unit/L Total Bilirubin 0.2 0.2 - 1.3 mg/dL Bili, Direct 0.1 0.0 - 0.3 mg/dL Estimated GFR 57 (*) >=60 LACTATE DEHYDROGENASE Component Value Range LDH 199 110 - 220 unit/L VIT D TOTAL EVALUATION Component Value Range 25-OH Vit D Total 63 30 - 100 ng/mL NUCLEATED RED BLOOD CELLS Component Value Range nRBC % Auto 0.0 0.0 - 0.2 % nRBC Abs Auto 0.000 0.000 - 0.012 x10(3)/mcL DIFFERENTIAL, MANUAL Component Value Range Neutrophil % 12 (*) 34 - 71 % Lymphocyte % 88 (*) 19 - 53 % Neutrophil Abs 12.5 (*) 1.5 - 6.3 x10(3)/mcL Neutr Abs (ANC) 12.46 (*) 1.50 - 6.30 x10(3)/mcL Lymphocyte Abs 91.4 (*) 1.0 - 3.6 x10(3)/mcL Tot Diff Cell Ct 100 Plat Estimate Normal RBC Morphology Normal Smudge Cells Present BP 134/62 Pulse 89 Temp 36.6 ??C (97.9 ??F) (Oral) Resp 18 Ht 164 cm (5' 4.57) Wt 73.2 kg(161 lb 6 oz) BMI 27.22 kg/m2 SpO2 100% Assessment and Plan: 1. Assessment: CLL. Counts stable, No worrisome or symptomatic adenoapthy. No B symptoms, ALC doubling time about 2.5 years, No recurrent infections, no signs of signifcant AIHA or ITP. No concern for transformation. No indication for treatment at this time. 2. Neutrophilia - inconsistent over the past few years- likely falsly elevated on manual diff secondary to elevated ALC. We will continue to monitor. Plan: We will continue to monitor in hematology clinic. Reviewed CLL and indications for treatment. Carol will return to hematology in 3 months. she will call if there are any problems before then. documented in this encounter Plan of Treatment Upcoming Encounters Date Type Specialty Care Team Description 02/11/2022 Scheduled View Only Hematology and Ángel Fischer, Oncology [facility] ONCOLOGY [place], [place] [address] (Wo rk) 02/11/2022 TH Visit (TeleHealth) Hematology and Ángel Fischer Oncology [facility] DR UMANA [place], [place] [address] (Wo rk) 02/11/2022 Infusion Hematology and Oncology 02/11/2022 Office Visit Hematology and Jazzy Armendariz R D Oncology [facility] DRIVE HEMATOLOGY AND ONCOLOGY [place], [place] [address] (Wo rk) 02/22/2022 TH Visit (TeleHealth) Hematology and Yaquelin Celis Oncology E, [facility] HEMATOLOGY AND ONCOLOGY [place], [place] [address] (Wo rk) 02/25/2022 Office Visit Hematology Ángel Kimbrough Oncology [facility] ONCOLOGY [place], [place] [address] (Wo rk) 02/25/2022 Infusion Hematology and Oncology 03/10/2022 Scheduled View Only Obstetrics and Nurse, Oboneal II, respiratory therapist assistant 03/10/2022 Office Visit Obstetrics and Shazia Whitley Gynecology REPORTER ANCHOR [facility] UROGYNECOLOGY [place], [place] [address] (Wo rk) 03/11/2022 Office Visit Hematology and Ángel Fischer MD [facility] [place] [address] Oncology Alyssa Joseph[address] MEDICAL ONCOLOGY [place], [place] [id number] 03/11/2022 Infusion Hematology and Oncology 03/25/2022 Office Visit Hematology and Alyssa Joseph, Oncology [address] MEDICAL ONCOLOGY [place], [place] [id number] (Wo rk) 03/25/2022 Infusion Hematology and Oncology 03/31/2022 Office Visit Hematology and Alan Livingston M D [facility] DR HEMATOLOGY/[place] [address] [facility] [address] 04/08/2022 Office Visit Hematology and Ángel Fischer MD [facility] [place] [address] Oncology [address] Joseph[address] MEDICAL ONCOLOGY [place], [place] [id number] 04/08/2022 Infusion Hematology and Oncology documented as of this encounter Procedures Procedure Name Priority Date/Time Associated Comments Diagnosis DIFFERENTIAL, MANUAL STAT 09/09/2013 2:14 PM R esults for this EDT procedure are i n the results section. NUCLEATED RED BLOOD STAT 09/09/2013 2:14 PM Re sults for this CELLS EDT procedure are i n the results section. VITAMIN D, 25-HYDROXY STAT 09/09/2013 2:14 PM Chronic lymph ocytic Results for this EDT leukemia procedure are i n the results section. CBC (WITH DIFF) STAT 09/09/2013 2:14 PM Chronic lymphocytic Results for this EDT leukemia procedure are i n the results section. LACTATE DEHYDROGENASE STAT 09/09/2013 2:14 PM Chronic lymph ocytic Results for this EDT leukemia procedure are i n the results section. COMPREHENSIVE STAT 09/09/2013 2:14 PM Chronic lymphocytic R esults for this METABOLIC PANEL EDT leukemia procedure ar e in (NON-FASTING) the results section. documented in this encounter Results Lactate Dehydrogenase (12/16/2013 1:51 PM EDT) athologist Signature LDH 218 110 - 220 CERNER unit/L MILLENNIUM Specimen Anatomical Collection Method Collection Time Receive d Time (Source) Location / / Volume Laterality Blood specimen 12/16/2013 1:51 PM 014 1:59 (specimen) EDT PM EDT Resulting Agency Comment Spec In Lab Alan Livingston MD CHEMISTRY ORDERABLES Performing Organization Address City/State/[place] [address] CERNER MILLENNIUM (ABNORMAL) Comprehensive metabolic panel (non-fasting) (12/16/2013 1:51 PM EDT) athologist Signature Glucose Lvl 85 60 - 199 CERNER mg/dL MILLENNIUM Comment: Diabetes: >=200 mg/dL plus symp toms BUN 18 8 - 18 mg/dL CERNER MILLENNIUM Creatinine 0.83 0.70 - 1.20 mg/dL CERNER MILL ENNIUM Comment: Please note that the pediatric reference intervals supplied above were not validated at [facility]. Results from pediatri c patients should be [...] Anion Gap 10 5 - 15 mmol/L YANELIS MIRZAENNIU M Calcium 9.0 8.5 - 10.5 mg/dL CERNENITA MIRZAEN NIUM Total Protein 6.1 (L) 6.4 - 8.3 gm/dL YANELIS MIL LENNIUM Albumin 4.1 3.2 - 5.2 gm/dL CERNER MILLENN IUM AST 22 0 - 30 unit/L CERNER HERMESENNIU M ALT 16 0 - 30 unit/L CERNER MILLENNIU M Alk Phos 56 40 - 104 unit/L CERNER MILLENN IUM Total Bilirubin 0.2 0.2 - 1.3 mg/dL [facility] M ILLENNIUM Bili, Direct 0.1 0.0 - 0.3 mg/dL YANELIS MILL ENNIUM Estimated GFR >60 >=60 YANELIS MIRZAENNIU M Comment: This estimated GFR (eGFR) value [...] the following links into your internet browser. [email or web address] Specimen Anatomical Collection Method Collection Time Receive d Time (Source) Location / / Volume Laterality Blood specimen 12/16/2013 1:51 PM 014 1:59 (specimen) EDT PM EDT Resulting Agency Comment Spec In Lab Alan Livingston MD CHEMISTRY ORDERABLES Performing Organization Address City/State/ZIP Code Phon e Number [place] [id number] CERNER MILLENNIUM (ABNORMAL) Differential, Manual (09/09/2013 2:14 PM EDT) [facility] Method Time Signature Neutrophil % 12 (L) 34 - 71 % CERNER MILLENNIUM Lymphocyte % 88 (H) 19 - 53 % CERNER MILLENNIUM Neutrophil Abs 12.5 (H) 1.5 - 6.3 CERNER x10(3)/mc MILLENNIUM L Neutr Abs (ANC) 12.46 (H) 1.50 - CERNER 6.30 MILLENNIUM x10(3)/mc L Lymphocyte Abs 91.4 (H) 1.0 - 3.6 CERNER x10(3)/mc MILLENNIUM L Tot Diff Cell [...] Organization Address City/State/ZIP Code Phon e Number [address] CERNER MILLENNIUM Nucleated Red Blood Cells (09/09/2013 2:14 PM EDT) athologist Signature nRBC % Auto [...] Livingston MD HEMATOLOGY ORDERABLES Performing Organization Address City/[facility]/[place] [address] CERNER MILLENNIUM VIT D Total Evaluation (09/09/2013 2:14 PM EDT) athologist Signature 25-OH Vit D 63 30 - 100 CERNER Total ng/mL MILLENNIUM Comment: Deficient <10 ng/mL Insufficient 10 to [...] Livingston MD CHEMISTRY ORDERABLES Performing Organization Address City/[facility]/ZIP [facility] Phon e Number [address] CERNER MILLENNIUM Lactate Dehydrogenase (09/09/2013 2:14 PM EDT) athologist Signature LDH 199 110 - 220 CERNER unit/L MILLENNIUM Specimen Anatomical Collection Method Collection Time Receive d Time (Source) Location / / Volume Laterality Blood specimen 09/09/2013 2:14 PM 014 2:36 (specimen) EDT PM EDT Resulting Agency Comment Spec In Lab Alan Livingston MD CHEMISTRY ORDERABLES Performing Organization Address City/[facility] Phon e Number [address] CERNER MILLENNIUM (ABNORMAL) Comprehensive metabolic panel (non-fasting) (09/09/2013 2:14 PM EDT) athologist Signature Glucose Lvl 133 60 - 199 CERNER mg/dL MILLENNIUM Comment: Diabetes: >=200 mg/dL plus symp toms BUN 17 8 - 18 mg/dL CERNER MILLENNIUM Creatinine 0.98 0.70 - 1.20 mg/dL CERNER MILL ENNIUM Comment: Please note that the pediatric reference intervals supplied above were not validated at [facility]. Results from pediatri c patients should be [...] Organization Address City/State/[place] [address] CERNER MILLENNIUM (ABNORMAL) CBC (with Diff) (09/09/2013 2:14 PM EDT) P athologist Signature WBC 103.8 4.0 - 10.0 CERNER (Critical) x10(3)/mcL MILLENNIUM Comment: PLEASE NOTE: PATIENTS WITH WBC >100,000 MAY HAVE FALSELY ELEVATED POTASSIUM LEVELS. [facility] IF THERE ARE ANY QUESTIONS. This result has been called to BO CASSIDY by KEILA DAVIES on 09.09.13 at 14:57, and has been read lisa christie (). RBC 4.39 3.93 - 5.22 x10(6)/mcL CERNER MILLENNIUM Hemoglobin 13.0 11.2 - 15.7 gm/dL CERNER MILL ENNIUM Hematocrit 41.4 34.0 - 45.0 % CERNER MILLENNI UM MCV 94.3 (H) 79.0 - 94.0 fL CERNER MILLENNI UM MCH 29.6 26.6 - 32.2 pg CERNER MILLENNI UM MCHC 31.4 (L) 32.0 - 36.5 gm/dL CERNER MILLE NNIUM Platelets 171 145 - 370 x10(3)/mcL CERNER [place] LLENNIUM RDWSD 47.1 (H) 35.0 - 46.0 [...] Livingston MD HEMATOLOGY ORDERABLES Performing Organization Address City/[facility]/[place] [address] CERNER MILLENNIUM documented in this encounter Visit Diagnoses Diagnosis Chronic lymphocytic leukemia Chronic lymphoid leukemia, without menti on of having achieved remission documented in this encounter Care Teams Customer Service Correspondence Clerk Relationship Specialty Start Date End Date Berkley Madrigal MD PCP - General 04/13/10 02/15/18 AYLEEN Bray [address] [place] [address] documented as of this encounter
--- OUTSIDE RECORDS SUMMARY | 2022-02-11 01:13 | XMS_ITS | Encounter Summary ---
:1950 Author Organization [place] [place] [address] Care Team Providers Name Role Phone Berkley Madrigal MD Primary Care Provider Encounter Details Date Type Department Care Team Description 09/09/2013 Hospital Encounter Hematology and Oncology CLINIC, DR ALEXANDER at [facility] Alan Livingston MD [facility] HEMATOLOGY/[place] [address] [place] [address] Social History Tobacco Use Types Packs/Day [...] Ángel Fischer Oncology [facility] ONCOLOGY [place], [place] [address] (Shana hewitt) 02/11/2022 TH Visit (TeleHealth) Hematology Ángel Kimbrough Oncology [facility] DR [place]Y [place], [place] [address] (Shana hewitt) 02/11/2022 Infusion Hematology and Oncology 02/11/2022 Office Visit Hematology and Jazzy Armendariz R D [facility] DRIVE HEMATOLOGY AND ONCOLOGY [place], [place] [address] (Wo rk) 02/22/2022 TH Visit (TeleHealth) Hematology and Yaquelin Celis E, [facility] HEMATOLOGY AND ONCOLOGY [place], [place] [address] (Wo rk) 02/25/2022 Office Visit Hematology and Ángel Fischer Oncology [facility] ONCOLOGY [place], [place] [address] (Wo rk) 02/25/2022 Infusion Hematology and Oncology 03/10/2022 Scheduled View Only Obstetrics and NurseJulian II, shopper 03/10/2022 Office Visit Obstetrics and Shazia Whitley, Gynecology [facility] UROGYNECOLOGY [place], [place] [address] (Wo rk) 03/11/2022 Office Visit Hematology and Ángel Fischer MD [facility] [place] [address] Oncology Alyssa Joseph, [address] MEDICAL ONCOLOGY [place], [place] [phone] 03/11/2022 Infusion Hematology and Oncology 03/25/2022 Office Visit Hematology and Alyssa Joseph, Oncology [address] MEDICAL ONCOLOGY [place], [place] [phone] (Wo rk) 03/25/2022 Infusion Hematology and Oncology 03/31/2022 Office Visit Hematology and Alan Livingston M D [facility] HEMATOLOGY/[place] [address] Oncology Nilam So, PICTURE FR[employer]ER [facility] DR HEMATOLOGY/[place] [address] 04/08/2022 Office Visit Hematology and Ángel Fischer MD [facility] [place] [address] Oncology Alyssa Joseph, [address] MEDICAL ONCOLOGY [place], [place] [address] 04/08/2022 Infusion Hematology and Oncology documented as of this encounter Visit Diagnoses Not on filedocumented in this encounter Care Teams [employer] Technical Systems Specialist Relationship Specialty Start Date End Date Berkley Madrigal MD PCP - General 04/13/10 02/15/18 AYLEEN Bray [address] [place], [place] [address] documented as of this encounter
--- OUTSIDE RECORDS SUMMARY | 2022-02-11 01:13 | XMS_ITS | Encounter Summary ---
:1950 Author Organization [facility] [place] [address] Care Team Providers Name Role Phone Berkley Madrigal MD Primary Care Provider Reason for Referral Consultation (Routine) - Closed Specialty Diagnoses / Procedures Referred By Contact Refer red To Contact Endocrinology Diagnoses DM hypo/hyperglycemia, heat sensivity Agustin So, MACHINERY MOVER [facility] [place] Endocrinology 3b Procedures consult [facility] DR Martino [facility] Cristóbal Perkins HEMATOLOGY/[place] [address] [place] [address] Referral ID Status Reason Start Date Expiration Date Visits V isits Requested Authorized [id number] Closed Specialty 03/13/2013 09/09/2013 1 1 Service Requested Reason for Visit Reason Comments Follow-up Encounter Details Date Type Department Care Team Description 03/11/2013 Follow-Up Hematology and Alan Livingston M D Chronic lymphocytic Oncology at [facility] leukemia (Primary Dx) [facility] DR Perkins HEMATOLOGY/[place] [address] DEPT. [phone] [place], [place] [address] (Wo rk) Social History Tobacco Use Types [...] Sign Reading Time Taken Comments Blood Pressure 138/72 03/11/2013 3:19 PM EDT Pulse 60 03/11/2013 3:19 PM EDT Temperature 37 ??C (98.6 ??F) 03/11/2013 3:19 PM EDT Respiratory Rate 18 03/11/2013 3:19 PM EDT Oxygen Saturation 99% 03/11/2013 3:19 PM EDT Inhaled Oxygen Concentration - - Weight 74.5 kg (164 lb 3.9 oz) 03/11/2013 3:19 PM EDT Height - - Body Mass Index 27.63 10/08/2012 1:11 PM EDT documented in this encounter Patient Instructions Patient InstructionsSchAgustin rodgers APRN - 03/11/2013 3:44 PM EDT Recent Results (from the past 72 hour(s)) CBC (WITH DIFF) Component Value Range WBC 109.2 (*) 4.0 - 10.0 x10(3)/mcL RBC 4.49 3.93 - 5.22 x10(6)/mcL Hemoglobin 13.5 11.2 - 15.7 gm/dL Hematocrit 42.8 34.0 - 45.0 % MCV 95.3 (*) 79.0 - 94.0 fL MCH 30.1 26.6 - 32.2 pg MCHC 31.5 (*) 32.0 - 36.5 gm/dL Platelets 168 145 - 370 x10(3)/mcL RDWSD 47.3 (*) 35.0 - 46.0 fL RDWCV 14.0 10.9 - 14.4 % MPV 11.4 9.0 - 12.0 fL COMPREHENSIVE METABOLIC PANEL (NON-FASTING) Component Value Range Glucose Lvl 85 60 - 199 mg/dL BUN 15 8 - 18 mg/dL Creatinine 0.92 0.70 - 1.20 mg/dL Sodium 143 135 - 145 mmol/L Potassium 4.4 3.5 - 5.0 mmol/L Chloride 104 98 - 107 mmol/L CO2 28 22 - 31 mmol/L Anion Gap 11 5 - 15 mmol/L Calcium 9.1 8.5 - 10.5 mg/dL Total Protein 6.6 6.4 - 8.3 gm/dL Albumin 4.5 3.2 - 5.2 gm/dL AST 23 0 - 30 unit/L ALT 18 0 - 30 unit/L Alk Phos 66 40 - 104 unit/L Total Bilirubin 0.2 0.2 - 1.3 mg/dL Bili, Direct 0.1 0.0 - 0.3 mg/dL Estimated GFR >60 >=60 LACTATE DEHYDROGENASE Component Value Range LDH 221 (*) 110 - 220 unit/L BP 138/72 Pulse 60 Temp 37 ??C (98.6 ??F) (Oral) Resp 18 Wt 74.5 kg (164 lb 3.9 oz) SpO2 99% documented in this encounter Progress Notes Agustin So, ADENIKE - 03/11/2013 3:45 PM EDT Subjective: Patient ID: Carol Keller is a 62 y.o. female here for f/u of CLL Patient Active Problem List Diagnosis ??? Verruca vulgaris ??? Macular pucker, right eye ??? Horseshoe retinal tear, right eye ??? SVT (supraventricular tachycardia) ??? Urinary incontinence, overflow ??? GERD (gastroesophageal reflux disease) ??? Diabetes mellitus ??? 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 Cytogenetics 13 deletion (favorable prognosis) HPI Carol is doing Ok - she continues to struggle with heat sensitivity, hot flashes/flushing. She was recently started on Premarin 0.3mg which has not helped. She has also had episodes of higher bloodsugars - recorded up to 170's and then down to 30. 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 Her DM is strictly diet controlled - her recent AIC with her PCP was reportably excellent. No recent infections. Review of Systems Constitutional: Negative. HENT: Negative. Eyes: Negative. Respiratory: Negative. Cardiovascular: Negative. Gastrointestinal: Negative. Genitourinary: Negative. Musculoskeletal: Negative. Neurological: Negative. Hematological: Negative. Psychiatric/Behavioral: Negative. Objective: Physical Exam [...] inguinal and no supraclavicular adenopathy present. 1cm post cervical nodes bilat right>left. Left axillary 1 cm node Neurological: She is alert and oriented to person, place, and time. Skin: Skin is warm and dry. Psychiatric: She has a normal mood and affect. Recent Results (from the past 72 hour(s)) CBC (WITH DIFF) Component Value Range WBC 109.2 (*) 4.0 - 10.0 x10(3)/mcL RBC 4.49 3.93 - 5.22 x10(6)/mcL Hemoglobin 13.5 11.2 - 15.7 gm/dL Hematocrit 42.8 34.0 - 45.0 % MCV 95.3 (*) 79.0 - 94.0 fL MCH 30.1 26.6 - 32.2 pg MCHC 31.5 (*) 32.0 - 36.5 gm/dL Platelets 168 145 - 370 x10(3)/mcL RDWSD 47.3 (*) 35.0 - 46.0 fL RDWCV 14.0 10.9 - 14.4 % MPV 11.4 9.0 - 12.0 fL COMPREHENSIVE METABOLIC PANEL (NON-FASTING) Component Value Range Glucose Lvl 85 60 - 199 mg/dL BUN 15 8 - 18 mg/dL Creatinine 0.92 0.70 - 1.20 mg/dL Sodium 143 135 - 145 mmol/L Potassium 4.4 3.5 - 5.0 mmol/L Chloride 104 98 - 107 mmol/L CO2 28 22 - 31 mmol/L Anion Gap 11 5 - 15 mmol/L Calcium 9.1 8.5 - 10.5 mg/dL Total Protein 6.6 6.4 - 8.3 gm/dL Albumin 4.5 3.2 - 5.2 gm/dL AST 23 0 - 30 unit/L ALT 18 0 - 30 unit/L Alk Phos 66 40 - 104 unit/L Total Bilirubin 0.2 0.2 - 1.3 mg/dL Bili, Direct 0.1 0.0 - 0.3 mg/dL Estimated GFR >60 >=60 LACTATE DEHYDROGENASE Component Value Range LDH 221 (*) 110 - 220 unit/L DIFFERENTIAL, MANUAL Component Value Range Neutrophil % 6 (*) 34 - 71 % Band % 1 0 - 12 % Lymphocyte % 91 (*) 19 - 53 % Monocyte % 2 (*) 4 - 13 % Neutrophil Abs 6.6 (*) 1.5 - 6.3 x10(3)/mcL Band Abs 1.1 (*) 0.2 - 0.6 x10(3)/mcL Neutr Abs (ANC) 7.64 (*) 1.50 - 6.30 x10(3)/mcL Lymphocyte Abs 99.4 (*) 1.0 - 3.6 x10(3)/mcL Monocyte Abs 2.2 (*) 0.2 - 1.0 x10(3)/mcL Tot Diff Cell Ct 100 Plat Estimate Normal RBC Morphology Normal Smudge Cells Present BP 138/72 Pulse 60 Temp 37 ??C (98.6 ??F) (Oral) Resp 18 Wt 74.5 kg (164 lb 3.9 oz) SpO2 99% Assessment and Plan: 1.Assessment: CLL. ALC conitnues to clim with doubleing time being about a year. No worrisome or symptomatic adenoapthy. No B symptoms, No recurrent infections, no signs of AIHA or ITP. No concern for transformation. No indication for treatment at this time, however we did discuss that she will likelyneed therapy at some time in the near future. 2. Long history of heat sensitivity, hypo/hyperglycemia - she is requesting endo consult and I thinkthis is reasonable given her longstanding symptoms. Plan: We will continue to monitor in hematology clinic. Reviewed CLL and indications for treatment. Carol will return to hematology in 3 months. she will call if there are any problems before then. documented in this encounter Plan of Treatment Upcoming Encounters Date Type Specialty Care Team Description 02/11/2022 Scheduled View Only Hematology and Ángel Fischer Oncology [facility] ONCOLOGY [place] [address] (Shana hewitt) 02/11/2022 TH Visit (TeleHealth) Hematology and Ángel Fischer Oncology [facility] DR LYNDSAY [place] [address] (Wo rk) 02/11/2022 Infusion Hematology and Oncology 02/11/2022 Office Visit Hematology and Jazzy Armendariz R D [facility] HEMATOLOGY AND ONCOLOGY [place], [place] 0[address] (Wo rk) 02/22/2022 TH Visit (TeleHealth) Hematology and Yaquelin Celis Oncology E, [facility] HEMATOLOGY AND ONCOLOGY [place], [place] 0[address] (Wo rk) 02/25/2022 Office Visit Hematology and Ángel Fischer, Oncology [facility] ONCOLOGY [place], [place] 0[address] (Wo rk) 02/25/2022 Infusion Hematology and Oncology 03/10/2022 Scheduled View Only Obstetrics and Nurse, Julian COLEMAN, beef cattle farm manager 03/10/2022 Office Visit Obstetrics and Shazia Whitley, Gynecology [facility] UROGYNECOLOGY [place], [place] [address] (Wo rk) 03/11/2022 Office Visit Hematology and Ángel Fischer MD [facility] [place] [address] Oncology Alyssa Joseph, [address] MEDICAL ONCOLOGY [place], [place] [id number] 03/11/2022 Infusion Hematology and Oncology 03/25/2022 Office Visit Hematology and Alyssa Joseph Oncology [address] MEDICAL ONCOLOGY [place], [place] [id number] (Wo rk) 03/25/2022 Infusion Hematology and Oncology 03/31/2022 Office Visit Hematology and Alan Livingston M D [facility] HEMATOLOGY/[place] [address] Oncology Agustin So, MACHINERY MOVER [facility] DR HEMATOLOGY/[place] [address] 04/08/2022 Office Visit Hematology and Ángel Fischer MD [facility] [place] [address] Oncology Alyssa Joseph, [address] [place] [address] 04/08/2022 Infusion Hematology and Oncology Scheduled Referrals Name Type Priority Associated Order Schedule Diagnoses Referral to Outpatient Referral Routine Chronic lymphocytic O rdered: Endocrinology leukemia 03/13/2013 documented as of this encounter Procedures Procedure Name Priority Date/Time Associated Comments Diagnosis DIFFERENTIAL, MANUAL STAT 03/11/2013 2:46 PM R esults for this EDT procedure are i n the results section. CBC (WITH DIFF) STAT 03/11/2013 2:46 PM Chronic lymphocytic Results for this EDT leukemia procedure are i n the results section. LACTATE DEHYDROGENASE STAT 03/11/2013 2:46 PM Chronic lymph ocytic Results for this EDT leukemia procedure are i n the results section. COMPREHENSIVE STAT 03/11/2013 2:46 PM Chronic lymphocytic R esults for this METABOLIC PANEL EDT leukemia procedure ar e in (NON-FASTING) the results section. documented in this encounter Results (ABNORMAL) Immunoglobulins, Quantitative (06/10/2013 1:45 PM EST) P athologist Signature IgG 533 (L) 700 - [...] Organization Address City/State/ZIP [place] [address] CERNER MILLENNIUM Lactate Dehydrogenase (06/10/2013 1:45 PM EST) athologist Signature LDH 196 110 - 220 CERNER unit/L MILLENNIUM Specimen Anatomical Collection Method Collection Time Receive d Time (Source) Location / / Volume Laterality Blood specimen 06/10/2013 1:45 PM 014 1:53 (specimen) EST PM EST Resulting Agency Comment Spec In Lab Alan Livingston MD CHEMISTRY ORDERABLES Performing Organization Address City/[facility] Code Phon e Number [address] CERNER MILLENNIUM (ABNORMAL) Comprehensive metabolic panel (non-fasting) (06/10/2013 1:45 PM EST) athologist Signature Glucose Lvl 83 60 - 199 CERNER mg/dL MILLENNIUM Comment: Diabetes: >=200 mg/dL plus symp toms BUN 17 8 - 18 mg/dL CERNER MILLENNIUM Creatinine 0.99 0.70 - 1.20 mg/dL CERNER MILL ENNIUM Comment: Please note that the pediatric reference intervals supplied above were not validated at [facility]. Results from pediatri c patients should be [...] Organization Address City/State/ZIP Code Phon e Number [place] [phone] CERNER MILLENNIUM (ABNORMAL) CBC (with Diff) (06/10/2013 1:45 PM EST) P athologist Signature WBC 90.0 4.0 - 10.0 CERNER (Critical) x10(3)/mcL MILLENNIUM Comment: This result has been called to AGUSTIN SO by REJI FLETCHER on 06.10.13 at 14:55, and has been read lisa pratik (). RBC 4.44 3.93 - 5.22 x10(6)/mcL CERNER MILLENNIUM Hemoglobin 12.8 11.2 - 15.7 gm/dL CERNER MILL ENNIUM Hematocrit 41.1 34.0 - 45.0 % CERNER MILLENNI UM MCV 92.6 79.0 - 94.0 fL CERNER MILLENNI UM MCH 28.8 26.6 - 32.2 pg CERNER MILLENNI UM MCHC 31.1 (L) 32.0 - 36.5 gm/dL CERNER MILLE NNIUM Platelets 188 145 - 370 x10(3)/mcL CERNER MS LLENNIUM RDWSD 46.9 (H) 35.0 - 46.0 [...] Organization Address City/State/ZIP Code Phon e Number [place] [phone] CERNER MILLENNIUM (ABNORMAL) Differential, Manual (03/11/2013 2:46 PM EDT) [facility] gist Method Time Signature Neutrophil % 6 (L) 34 - 71 % CERNER MILLENNIUM Band % 1 0 - 12 % CERNER MILLENNIUM Lymphocyte % 91 (H) 19 - 53 % CERNER MILLENNIUM Monocyte % 2 (L) 4 - 13 % CERNER MILLENNIUM Neutrophil Abs 6.6 (H) 1.5 - 6.3 CERNER x10(3)/mcL MILLENNIUM Band Abs 1.1 (H) 0.2 - 0.6 CERNER x10(3)/mcL MILLENNIUM Neutr Abs (ANC) 7.64 (H) 1.50 - CERNER 6.30 MILLENNIUM x10(3)/mcL Lymphocyte Abs 99.4 (H) 1.0 - 3.6 CERNER x10(3)/mcL MILLENNIUM Monocyte Abs 2.2 (H) 0.2 - 1.0 CERNER x10(3)/mcL MILLENNIUM Tot Diff Cell [address] MILLENNIUM Plat Estimate Normal CERNER MILLENNIUM RBC Morphology Normal CERNER MILLENNIUM Smudge Cells Present CERNER MILLENNIUM Specimen Anatomical Collection Method Collection Time Receive d Time (Source) Location / / Volume Laterality Blood specimen 03/11/2013 2:46 PM 013 2:53 (specimen) EDT PM EDT Resulting Agency Comment Spec In Lab Alan Livingston MD HEMATOLOGY ORDERABLES Performing Organization Address City/[facility] Phon e Number [address] CERNER MILLENNIUM (ABNORMAL) Lactate Dehydrogenase (03/11/2013 2:46 PM EDT) athologist Signature LDH 221 (H) 110 - 220 CERNER unit/L MILLENNIUM Specimen Anatomical Collection Method Collection Time Receive d Time (Source) Location / / Volume Laterality Blood specimen 03/11/2013 2:46 PM 013 2:53 (specimen) EDT PM EDT Resulting Agency Comment Spec In Lab Alan Livingston MD CHEMISTRY ORDERABLES Performing Organization Address City/[facility] Phon e Number [address] CERNER MILLENNIUM Comprehensive metabolic panel (non-fasting) (03/11/2013 2:46 PM EDT) athologist Signature Glucose Lvl 85 60 - 199 CERNER mg/dL MILLENNIUM Comment: Diabetes: >=200 mg/dL plus symp toms BUN 15 8 - 18 mg/dL CERNER MILLENNIUM Creatinine 0.92 0.70 - 1.20 mg/dL CERNER MILL ENNIUM Comment: Please note that the pediatric reference intervals supplied above were not validated at [facility]. Results from pediatri c patients should be [...] M Calcium 9.1 8.5 - 10.5 mg/dL [facility] JAVI NIUM Total Protein 6.6 6.4 - 8.3 gm/dL [facility] MIL LENNIUM Albumin 4.5 3.2 - 5.2 gm/dL CERNER MILLENN IUM AST 23 0 - 30 unit/L CERNER MILLENNIU M ALT 18 0 - 30 unit/L CERNER MILLENNIU M Alk Phos 66 40 - 104 unit/L CERNER MILLENN IUM Total Bilirubin 0.2 0.2 - 1.3 mg/dL [facility] M ILLENNIUM Bili, Direct 0.1 0.0 - [...] Location / / Volume Laterality Blood specimen 03/11/2013 2:46 PM 013 2:53 (specimen) EDT PM EDT Resulting Agency Comment Spec In Lab Alan Livingston MD CHEMISTRY ORDERABLES Performing Organization Address City/State/ZIP [place] [address] CERNER MILLENNIUM (ABNORMAL) CBC (with Diff) (03/11/2013 2:46 PM EDT) P athologist Signature WBC 109.2 4.0 - 10.0 CERNER (Critical) x10(3)/mcL MILLENNIUM Comment: #WBCC This result has been called to mechelle fish by MARIELA MENJIVAR on 03.11.13 at 15:11, and has been read back (). RBC 4.49 3.93 - 5.22 x10(6)/mcL CERNER MILLENNIUM Hemoglobin 13.5 11.2 - 15.7 gm/dL CERNER MILL ENNIUM Hematocrit 42.8 34.0 - 45.0 % CERNER MILLENNI UM MCV 95.3 (H) 79.0 - 94.0 fL CERNER MILLENNI UM MCH 30.1 26.6 - 32.2 pg CERNER MILLENNI UM MCHC 31.5 (L) 32.0 - 36.5 gm/dL CERNER MILLE NNIUM Platelets 168 145 - 370 x10(3)/mcL CERNER MS LLENNIUM RDWSD 47.3 (H) 35.0 - 46.0 fL CERNER MILLENNI UM RDWCV 14.0 10.9 - 14.4 % CERNER MILLENNIU M MPV 11.4 9.0 - 12.0 fL CERNER MILLENNIU M Specimen Anatomical Collection Method Collection Time Receive d Time (Source) Location / / Volume Laterality Blood specimen 03/11/2013 2:46 PM 013 2:53 (specimen) EDT PM EDT Resulting Agency Comment Spec In Lab Alan Livingston MD HEMATOLOGY ORDERABLES Performing Organization Address City/State/ZIP [place] [address] CERNER MILLENNIUM documented in this encounter Visit Diagnoses Diagnosis Chronic lymphocytic leukemia - Primary Chronic lymphoid leukemia, without menti on of having achieved remission documented in this encounter Care Teams Erp Engineer Relationship Specialty Start Date End Date Berkley Madrigal MD PCP - General 04/13/10 02/15/18 AYLEEN D [address] [place] [address] documented as of this encounter
--- OUTSIDE RECORDS SUMMARY | 2022-02-11 01:13 | XMS_ITS | Encounter Summary ---
:1950 Author Organization [facility] [place] [address] Care Team Providers Name Role Phone Berkley Madrigal MD Primary Care Provider Encounter Details Date Type Department Care Team Description 06/10/2013 Hospital Encounter Hematology and Oncology CLINIC, DR ALEXANDER at [facility] Alan Livingston MD [facility] HEMATOLOGY/[place] [address] [place] [address] Social History Tobacco Use Types Packs/Day [...] Fischer Oncology [facility] ONCOLOGY [place], [place] [address] (Shana rk) 02/11/2022 TH Visit (TeleHealth) Hematology Ángel Kimbrough Oncology [facility] DR UMANA [place], [place] [address] (Shana rk) 02/11/2022 Infusion Hematology and Oncology 02/11/2022 Office Visit Hematology and Jazzy Armendariz R D Oncology [facility]AR HEMATOLOGY AND ONCOLOGY [place], [place] [address] (Wo rk) 02/22/2022 TH Visit (TeleHealth) Hematology and Yaquelin Celis Oncology E, [facility] DR HEMATOLOGY AND ONCOLOGY [place], [place] 0[address] (Wo rk) 02/25/2022 Office Visit Hematology and Ángel Fischer Oncology [facility] ONCOLOGY [place], [place] 0[address] (Wo rk) 02/25/2022 Infusion Hematology and Oncology 03/10/2022 Scheduled View Only Obstetrics and Nurse, Julian COLEMAN, patrol inspector 03/10/2022 Office Visit Obstetrics and Shazia Whitley, Gynecology [facility] UROGYNECOLOGY [place], [place] 0[address] (Wo rk) 03/11/2022 Office Visit Hematology and Ángel Fischer MD [facility] [place] [address] Oncology Alyssa Joseph[address] MEDICAL ONCOLOGY [place], [place] [phone] 03/11/2022 Infusion Hematology and Oncology 03/25/2022 Office Visit Hematology and Alyssa Joseph Oncology [address] [place] [address] (Wo rk) 03/25/2022 Infusion Hematology and Oncology 03/31/2022 Office Visit Hematology and Alan Livingston M D [facility] HEMATOLOGY/[place] [address] Oncology Nilam So, [facility] HEMATOLOGY/[place] [address] 04/08/2022 Office Visit Hematology and Ángel Fischer MD [facility] [place] [address] Oncology Alyssa Joseph, [address] MEDICAL ONCOLOGY [place], [place] [phone] 04/08/2022 Infusion Hematology and Oncology documented as of this encounter Visit Diagnoses Not on filedocumented in this encounter Care Teams Strap Machine Operator Relationship Specialty Start Date End Date Berkley Madrigal MD PCP - General 04/13/10 02/15/18 AYLEEN Bray [address] [place], [place] [address] documented as of this encounter
--- OUTSIDE RECORDS SUMMARY | 2022-02-11 01:13 | XMS_ITS | Encounter Summary ---
:1950 Author Organization [facility] [address] Care Team Providers Name Role Phone Berkley Madrigal MD Primary Care Provider Encounter Details Date Type Department Care Team Description 06/10/2013 Notes Only Hematology and Oncology at [facility], Janessa mcmanus, [place] [address] Social History Tobacco Use Types Packs/Day [...] documented as of this encounter Progress Notes Josue Cyr, ALLIE - 06/10/2013 2:32 PM EST Documentation of Informed Consent to Participate in Clinical Trial D0905: Protocol to Obtain Blood Samples for Leukemia Research Patient, with friend, was seen in Hematology-Oncology clinic while awaiting lupe???d blood draw for lab work prior to his appt with Dr. Livingston on 06/10/13. I have confirmed this patient has CLL and is having routine blood draws performed at [facility]. Patient was offered the opportunity to participate in study D0905: Protocol to Obtain Blood Samples for Leukemia Research. Study protocol reviewed with patient, including description of study purpose, potential risks and benefits, voluntary nature or participation, and requirements of participation. Education regarding additional blood to be drawn at time of routine blood draw provided. Discussed confidentiality of patient???s private health information as specified in consent form. Patient informed that she may discontinue study involvement at any time; informed that declining to participate or discontinuing study treatment will not compromise her access to treatment options or care at this institution. Ms. Keller was given written informed consent form to read and review. She was given adequate time to review all information, and to ask questions and review concerns, all of which were answered to her satisfaction. Patient verbalized understanding of this protocol and consented for treatment on study D0905. Consent form was signed and dated by patient and underwriter. Written informed consent was obtained prior to anystudy blood work being drawn. The patient has agreed to provide an additional two tubes of blood forthe purposes of this study. A copy of the signed consent form was given to patient. Original signed IC form given to JAVIER Perez. documented in this encounter Plan of Treatment Upcoming Encounters Date Type Specialty Care Team Description 02/11/2022 Scheduled View Only Hematology and Ángel Fischer Oncology [facility] ONCOLOGY [place], [place] [address] (Wo rk) 02/11/2022 TH Visit (TeleHealth) Hematology Ángel Kimbrough Oncology [facility] ONCOLOGY [place], [place] 0375 (Wo rk) 02/11/2022 Infusion Hematology and Oncology 02/11/2022 Office Visit Hematology and Jazzy Armendariz R D [facility]AR HEMATOLOGY AND ONCOLOGY [place], [place] 0[address] (Wo rk) 02/22/2022 TH Visit (TeleHealth) Hematology and Yaquelin Celis Oncology E, [facility] HEMATOLOGY AND ONCOLOGY [place], [place] 0375 (Wo rk) 02/25/2022 Office Visit Hematology Ángel Kimbrough Oncology [facility] DR UMANA [place], [place] [address] (Wo rk) 02/25/2022 Infusion Hematology and Oncology 03/10/2022 Scheduled View Only Obstetrics and Nurse, Oboneal II, child day care center worker 03/10/2022 Office Visit Obstetrics and Shazia Whitley Gynecology SERVICE AND REPAIR SUPERVISOR [facility] UROGYNECOLOGY [place], [place] 0375 (Wo rk) 03/11/2022 Office Visit Ángel Hill MD [facility] [place] [address] Oncology Alyssa Joseph[address] MEDICAL ONCOLOGY [place], [place] [address] 03/11/2022 Infusion Hematology and Oncology 03/25/2022 Office Visit Hematology and Alyssa Joseph, Oncology [address] MEDICAL ONCOLOGY [place], [place] [id number] (Wo rk) 03/25/2022 Infusion Hematology and Oncology 03/31/2022 Office Visit Hematology and Alan Livingston M D [facility] DR HEMATOLOGY/[place] [address] [facility]cology [facility] [address] 04/08/2022 Office Visit Hematology and Ángel Fischer MD [facility] [place] [address] Oncology Alyssa Joseph[address] MEDICAL ONCOLOGY [place], [place] [id number] 04/08/2022 Infusion Hematology and Oncology documented as of this encounter Visit Diagnoses Not on filedocumented in this encounter Care Teams Bulk Plant Operator Relationship Specialty Start Date End Date Berkley Madrigal MD PCP - General 04/13/10 02/15/18 AYLEEN Bray [address] [place], [place] [phone] documented as of this encounter
--- OUTSIDE RECORDS SUMMARY | 2022-02-11 01:13 | XMS_ITS | Encounter Summary ---
:1950 Author Organization [facility] Address [address] [place] [address] Care Team Providers Name Role Phone Berkley Madrigal MD Primary Care Provider Encounter Details Date Type Department Care Team Description 07/12/2013 Orders Only Endocrinology at [facility] C Pasquale Rich, Type 2 diabetes [facility] Katarina evangelista MD mellitus (Primary Dx) [place] [address] [facility] [phone] CENTER ENDOCRINOLOGY DEPT. [place], [place] [address] Social History Tobacco Use [...] Fischer Oncology [facility] ONCOLOGY [place], [place] [address] (Wo rk) 02/11/2022 TH Visit (TeleHealth) Hematology Ángel Kimbrough Oncology [facility] DR UMANA [place], [place] [address] (Wo rk) 02/11/2022 Infusion Hematology and Oncology 02/11/2022 Office Visit Hematology and Jazzy Armendariz R D Oncology [facility]AR HEMATOLOGY AND ONCOLOGY [place], [place] [address] (Wo rk) 02/22/2022 TH Visit (TeleHealth) Hematology and Yaquelin Celis Oncology E, [facility] HEMATOLOGY AND ONCOLOGY [place], [place] [address] (Wo rk) 02/25/2022 Office Visit Ángel Hill Oncology [facility] DR UMANA [place], [place] [address] (Wo rk) 02/25/2022 Infusion Hematology and Oncology 03/10/2022 Scheduled View Only Obstetrics and Nurse, Julian COLEMAN, automotive window tinter 03/10/2022 Office Visit Obstetrics and Shazia Whitley, Gynecology [facility] UROGYNECOLOGY [place], [place] [address] (Wo rk) 03/11/2022 Office Visit Hematology and Ángel Fischer MD [facility] [place] [address] Oncology Alyssa Joseph[address] ONCOLOGY [place], [place] [id number] 03/11/2022 Infusion Hematology and Oncology 03/25/2022 Office Visit Hematology and Alyssa Joseph, Oncology [address] MEDICAL ONCOLOGY [place], [place] [phone] (Wo rk) 03/25/2022 Infusion Hematology and Oncology 03/31/2022 Office Visit Hematology and Alan Livingston M D [facility] DR HEMATOLOGY/[place] [address] [facility] [address] 04/08/2022 Office Visit Hematology and Ángel Fischer MD [facility] [place] [address] Oncology Alyssa Joseph[address] MEDICAL ONCOLOGY [place], [place] [phone] 04/08/2022 Infusion Hematology and Oncology documented as of this encounter Visit Diagnoses Diagnosis Type 2 diabetes mellitus - Primary Type II or unspecified type diabetes omer litus without mention of complication, not stated as uncontrolled documented in this encounter Care Teams Cleaner Greaser Relationship Specialty Start Date End Date Berkley Madrigal MD PCP - General 04/13/10 02/15/18 AYLEEN Bray [address] [place] [address] documented as of this encounter
--- OUTSIDE RECORDS SUMMARY | 2022-02-11 01:13 | XMS_ITS | Encounter Summary ---
:1950 Author Organization [facility] Address [address] [place] [address] Care Team Providers Name Role Phone Berkley Madrigal MD Primary Care Provider Encounter Details Date Type Department Care Team Description 10/23/2013 Orders Only Endocrinology at [facility] Maribel Julian, ADENIKE [facility] D [facility] [address] [place] [address] ENDOCRINOLOGY DEPT. [phone] [place], [place] [address] (Wo rk) Social History Tobacco [...] Fischer Oncology [facility] DR UMANA [place], [place] [address] (Wo rk) 02/11/2022 TH Visit (TeleHealth) Hematology Ángel Kimbrough Oncology [facility] DR UMANA [place], [place] [address] (Wo rk) 02/11/2022 Infusion Hematology and Oncology 02/11/2022 Office Visit Hematology and Jazzy Armendariz R D Oncology [facility] CESAR HEMATOLOGY AND ONCOLOGY [place], [place] [address] (Wo rk) 02/22/2022 TH Visit (TeleHealth) Hematology and Yaquelin Celis Oncology E, [facility] HEMATOLOGY AND [place]YNDSAY [place], [place] [address] (Wo rk) 02/25/2022 Office Visit Hematology Ángel Kimbrough Oncology [facility] DR UMANA [place], [place] [address] (Wo rk) 02/25/2022 Infusion Hematology and Oncology 03/10/2022 Scheduled View Only Obstetrics and Nurse, Julian COLEMAN, advertising director 03/10/2022 Office Visit Obstetrics and Shazia Whitley, Gynecology [facility] UROGYNECOLOGY [place], [place] [address] (Wo rk) 03/11/2022 Office Visit Hematology and Ángel Fischer MD [facility] [place] [address] Oncology Alyssa Joseph[address] MEDICAL ONCOLOGY [place], [place] [phone] 03/11/2022 Infusion Hematology and Oncology 03/25/2022 Office Visit Hematology and Alyssa Joseph, Oncology [address] MEDICAL ONCOLOGY [place], [place] [phone] (Wo rk) 03/25/2022 Infusion Hematology and Oncology 03/31/2022 Office Visit Hematology and Alan Livingston M D [facility] DR HEMATOLOGY/[place] [address] [facility] [address] 04/08/2022 Office Visit Hematology and Ángel Fischer MD [facility] [place] [address] Oncology Alyssa Joseph[address] MEDICAL ONCOLOGY [place], [place] [phone] 04/08/2022 Infusion Hematology and Oncology documented as of this encounter Visit Diagnoses Not on filedocumented in this encounter Care Teams Research Executive Relationship Specialty Start Date End Date Berkley Madrigal MD PCP - General 04/13/10 02/15/18 AYLEEN Bray [address] [place] [address] documented as of this encounter
--- OUTSIDE RECORDS SUMMARY | 2022-02-11 01:14 | XMS_ITS | Encounter Summary ---
:1950 Author Organization [facility] Address [facility] [place] [address] Care Team Providers Name Role Phone Berkley Madrigal MD Primary Care Provider Encounter Details Date Type Department Care Team Description 06/11/2012 Hospital Encounter Laboratory CLINIC, CONV Chronic lymphoid [facility] Alan Livingston MD [facility] HEMATOLOGY/[place] [address] leukemia (without Drive mention of [place], [place] remission) [id number] Social History Tobacco Use Types Packs/Day Years Used Date Never Smoker Financial Resource Strain Answer Date Recorded How [...] 50 mcg (2,000 unit) mouth daily. Capsule cycloSPORINE (RESTASIS) 1 drop 2 times 0 03/11/2013 0.05 % ophthalmic daily. emulsion imipramine (TOFRANIL) 10 Take 10 mg by mouth 0 11/04/2019 mg tablet every morning. omeprazole (PRILOSEC) 20 Take 20 mg by mouth 0 10/08/2012 mg capsule daily. Aurora-3 Fatty Acids (FISH Take 500 mg by mouth 0 10/08/2012 OIL) 500 mg CpDR daily. Gluco Sulfate NaCl-Chond Take 1 capsule by 0 10/08/2012 [place] Na 750-600 mg Tab mouth daily. CIS Free Text Med - 0 05/24/201010/08 Aspirin CIS Free Text Med - 0 05/24/201010/08 Multiple Vitamin Glucosamine Sulfate 500 0 05/24/2010 0 09/02/2016 mg Tab IMIPRAMINE HCL ORAL 10M Tablet(s), 0 05/24/19 11 10/08/2012 PO, Three times daily ERGOCALCIFEROL, VITAMIN 0 05/24/2010 0 10/08/2012 D2, (VITAMIN D ORAL) ASCORBIC ACID (VITAMIN C 0 05/24/2010 10/08/2012 ORAL) documented as of this encounter Plan of Treatment Upcoming Encounters Date Type Specialty Care Team Description 02/11/2022 Scheduled View Only Hematology and Ángel Fischer, Oncology [facility] ONCOLOGY [place], [place] [address] (Wo rk) 02/11/2022 TH Visit (TeleHealth) Hematology Ángel Kimbrough Oncology [facility] ONCOLOGY [place], [place] [address] (Wo rk) 02/11/2022 Infusion Hematology and Oncology 02/11/2022 Office Visit Hematology and Jazzy Armendariz R D [facility] CESAR HEMATOLOGY AND ONCOLOGY [place], [place] [address] (Wo rk) 02/22/2022 TH Visit (TeleHealth) Hematology and Yaquelin Celis E, [facility] HEMATOLOGY AND ONCOLOGY [place], [place] [address] (Wo rk) 02/25/2022 Office Visit Hematology and Ángel Fischer Oncology [facility] ONCOLOGY [place], [place] [address] (Wo rk) 02/25/2022 Infusion Hematology and Oncology 03/10/2022 Scheduled View Only Obstetrics and Nurse, Julian COLEMAN, clinical care manager 03/10/2022 Office Visit Obstetrics and Shazia Whitley, Gynecology [facility] UROGYNECOLOGY [place], [place] [address] (Wo rk) 03/11/2022 Office Visit Hematology Ángel Kimbrough MD [facility] [place] [address] Oncology Alyssa Joseph, [address] [place] [address] 03/11/2022 Infusion Hematology and Oncology 03/25/2022 Office Visit Hematology and Alyssa Joseph, Oncology [address] MEDICAL ONCOLOGY [place], [place] [address] (Wo rk) 03/25/2022 Infusion Hematology and Oncology 03/31/2022 Office Visit Hematology and Alan Livingston M D [facility] DR HEMATOLOGY/[place] [address] Oncology Nilam So, [facility] DR HEMATOLOGY/[place] [address] 04/08/2022 Office Visit Hematology and Ángel Fischer MD [facility] [place] [address] Oncology Alyssa Joseph[address] MEDICAL ONCOLOGY [place], [place] [phone] 04/08/2022 Infusion Hematology and Oncology documented as of this encounter Procedures Procedure Name Priority Date/Time Associated Comments Diagnosis IMMUNOGLOBULINS, STAT 06/11/2012 12:12 Chronic lymphoid Res ults for this QUANTITATIVE PM EST leukemia (without procedure are in mention of the results remission) section. DIFFERENTIAL, MANUAL STAT 06/11/2012 12:12 Res ults for this PM EST procedure are i n the results section. NUCLEATED RED BLOOD STAT 06/11/2012 12:12 Resu lts for this CELLS PM EST procedure are i n the results section. CBC (WITH DIFF) STAT 06/11/2012 12:12 Chronic lymphoid Resu lts for this PM EST leukemia (without procedure are in mention of the results remission) section. LACTATE DEHYDROGENASE STAT 06/11/2012 12:12 Chronic lymphoi d Results for this PM EST leukemia (without procedure are in mention of the results remission) section. COMPREHENSIVE STAT 06/11/2012 12:12 Chronic lymphoid Result s for this METABOLIC PANEL PM EST leukemia (without procedu re are in (NON-FASTING) mention of the results remission) section. documented in this encounter Results (ABNORMAL) Differential, Manual (06/11/2012 12:12 PM EST) Patholo gist Method Time Signature Neutrophil % 14 (L) 34 - 71 % CERNER MILLENNIUM Lymphocyte % 84 (H) 19 - 53 % CERNER MILLENNIUM Monocyte % 0 (L) 4 - 13 % CERNER MILLENNIUM Eosinophil % 1 0 - 7 % CERNER MILLENNIUM Neutrophil Abs 11.8 (H) 1.5 - 6.3 CERNER x10(3)/mc MILLENNIUM L Neutr Abs (ANC) 11.78 (H) 1.50 - CERNER 6.30 MILLENNIUM x10(3)/mc L Lymphocyte Abs 71.1 (H) 1.0 - 3.6 CERNER x10(3)/mc MILLENNIUM L Monocyte Abs 0.4 0.2 - 1.0 CERNER x10(3)/mc MILLENNIUM L Eosinophil Abs 0.8 (H) 0.0 - 0.5 CERNER x10(3)/mc MILLENNIUM L Tot Diff Cell [address] MILLENNIUM Plat Estimate Normal CERNER MILLENNIUM RBC Morphology Normal CERNER MILLENNIUM Smudge Cells Present CERNER MILLENNIUM Specimen Anatomical Collection Method Collection Time Receive d Time (Source) Location / / Volume Laterality Blood specimen 06/11/2012 12:12 3 (specimen) PM EST 12:20 PM EST Resulting Agency Comment Spec In Lab Alan Livingston MD HEMATOLOGY ORDERABLES Performing Organization Address City/State/ZIP [place] [address] CERNER MILLENNIUM Nucleated Red Blood Cells (06/11/2012 12:12 PM EST) P athologist Signature nRBC % Auto 0.0 0.0 - 0.2 CERNER % MILLENNIUM nRBC Abs Auto 0.000 0.000 - CERNER 0.012 MILLENNIUM x10(3)/mcL Specimen Anatomical Collection Method Collection Time Receive d Time (Source) Location / / Volume Laterality Blood specimen 06/11/2012 12:12 3 (specimen) PM EST 12:20 PM EST Resulting Agency Comment Spec In Lab Alan Livingston MD HEMATOLOGY ORDERABLES Performing Organization Address City/State/ZIP Code Phon e Number [address] CERNER MILLENNIUM (ABNORMAL) Immunoglobulins, Quantitative (06/11/2012 12:12 PM EST) athologist Signature IgG 569 (L) 700 - 1600 CERNER mg/dL MILLENNIUM IgA 69 (L) 70 - 400 CERNER mg/dL MILLENNIUM IgM 33 (L) 40 - 230 CERNER mg/dL MILLENNIUM Specimen Anatomical Collection Method Collection Time Receive d Time (Source) Location / / Volume Laterality Blood specimen 06/11/2012 12:12 3 (specimen) PM EST 12:20 PM EST Resulting Agency Comment Spec In Lab Alan Livingston MD CHEMISTRY ORDERABLES Performing Organization Address City/[facility]/ZIP Code Phon e Number [address] CERNER MILLENNIUM (ABNORMAL) Lactate Dehydrogenase (06/11/2012 12:12 PM EST) athologist Signature LDH 226 (H) 110 - 220 CERNER unit/L MILLENNIUM Specimen Anatomical Collection Method Collection Time Receive d Time (Source) Location / / Volume Laterality Blood specimen 06/11/2012 12:12 3 (specimen) PM EST 12:20 PM EST Resulting Agency Comment Spec In Lab Alan Livingston MD CHEMISTRY ORDERABLES Performing Organization Address City/[facility]/ZIP [facility] Phon e Number [address] CERNER MILLENNIUM (ABNORMAL) Comprehensive metabolic panel (non-fasting) (06/11/2012 12:12 PM EST) athologist Signature Glucose Lvl 102 60 - 199 CERNER mg/dL MILLENNIUM Comment: Diabetes: >=200 mg/dL plus symp toms BUN 23 (H) 8 - 18 mg/dL CERNER MILLENNIUM [...] - 107 mmol/L CERNER MILLENN IUM CO2 30 22 - 31 mmol/L CERNER MILLENNI UM Anion Gap 8 5 - 15 mmol/L CERNER MILLENNIU M Calcium 9.4 8.5 - 10.5 mg/dL CERNER JAVI NIUM Total Protein 6.7 6.4 - 8.3 gm/dL CERNER MIL LENNIUM Albumin 4.5 3.2 [...] GFR >60 >=60 CERNER MILLENNIU M Comment: The National Kidney Disease Education Pr ogram (NKDEP) has recommended all laboratories report estimated GFR (eGFR) along with plasma creatinine measurements to assist you with recognit ion of early kidney disease. Caveats: ??Plasma creatinine should be a t steady-state (unchanged within the past week). For patient s multiply eGFR by 1.2. The MDRD equation was developed using patients be tween the ages of 18 and 70 years. ?? The MDRD equation has not been validated for patients < 18 years of age and should not be used to assess renal function in the pediatric population. ??The MDRD eGFR equation will also overestimate the true GFR of patients above the age of 70. ??This overestimation is variable bu t increases with age. At present, NKDEP does NOT recommend usi ng the MDRD equation for drug dosing purposes and pharmacists should continue to use their current dosing methods. In addition, numerical eGFR values great er than 60 ml/min/1.73 square meters should be treated as > 60, and not an ex act number due to greater inaccuracies at these higher values. Per NKDEP, they classify normal renal function as any GFR >60ml/min/1.73 square meters; chronic kidney disease wh en GFR <60, and renal failure when GFR <15. ??This calculation may not be valid for patients with atypical muscle mass (very lean or obese), acute renal failur e, and in patients with diabetic kidney disease. References: http://nkdep.nih.gov/resources/NKDEP_Sug gestn4Labs_0606_508.pdf http://www.kidney.org/professionals/kls/ pdf/faq_gfr.pdf Jeromy K, Lesvia NA, Hailey AK, Veto TS, Shanta AD, Moira VARUN. Relative performance of the MDRD and CKD-EPI equa tions for estimating glomerular filtration rate among patients with vari ed clinical presentations. Clin J Am Soc Nephrol;6:1963-72. Specimen Anatomical Collection Method Collection Time Receive d Time (Source) Location / / Volume Laterality Blood specimen 06/11/2012 12:12 3 (specimen) PM EST 12:20 PM EST Resulting Agency Comment Spec In Lab Alan Livingston MD CHEMISTRY ORDERABLES Performing Organization Address City/State/ZIP Code Phon e Number [place] [phone] CERNER MILLENNIUM (ABNORMAL) CBC (with Diff) (06/11/2012 12:12 PM EST) P athologist Signature WBC 84.2 4.0 - 10.0 CERNER (Critical) x10(3)/mcL MILLENNIUM Comment: This result has been called to BO CASSIDY by Rosetta VACA on 06.11.12 at 12:47, and has been read back (). RBC 4.44 3.93 - 5.22 x10(6)/mcL CERNER MILLENNIUM Hemoglobin 13.6 11.2 - 15.7 gm/dL CERNER MILL ENNIUM Hematocrit 41.4 34.0 - 45.0 % CERNER MILLENNI UM MCV 93.2 79.0 - 94.0 fL CERNER MILLENNI UM MCH 30.6 26.6 - 32.2 pg YAENLIS HEARNI UM MCHC 32.9 32.0 - 36.5 gm/dL YANELIS MIRZAE NNIUM Platelets 203 145 - 370 x10(3)/mcL YANELIS HARRINGTON LLENNIUM RDWSD 47.2 (H) 35.0 - 46.0 fL YANELIS HEARNI UM RDWCV 13.8 10.9 - 14.4 % YANELIS HEARNIU M MPV 11.6 9.0 - 12.0 fL YANELIS HEARNIU M Specimen Anatomical Collection Method Collection Time Receive d Time (Source) Location / / Volume Laterality Blood specimen 06/11/2012 12:12 3 (specimen) PM EST 12:20 PM EST Resulting Agency Comment Spec In Lab Alan Livingston MD HEMATOLOGY ORDERABLES Performing Organization Address City/State/[place] [address] YANELIS SALCIDO documented in this encounter Visit Diagnoses Diagnosis Chronic lymphoid leukemia (without menti on of remission) Chronic lymphoid leukemia, without menti on of having achieved remission documented in this encounter Care Teams City Editor Relationship Specialty Start Date End Date Berkley Madrigal MD PCP - General 04/13/10 02/15/18 AYLEEN Bray [address] [place] [address] documented as of this encounter
--- OUTSIDE RECORDS SUMMARY | 2022-02-11 01:14 | XMS_ITS | Encounter Summary ---
:1950 Author Organization [place] [address] Care Team Providers Name Role Phone Berkley Madrigal MD Primary Care Provider Encounter Details Date Type Department Care Team Description 10/08/2012 Hospital Encounter Laboratory CLINIC, DR [facility] Alan Livingston MD [facility] HEMATOLOGY/[place] [address] [place] [address] Social History Tobacco Use Types Packs/Day [...] View Only Hematology and Ángel Fischer Oncology [facility] ONCOLOGY [place], [place] [address] (Shana hewitt) 02/11/2022 TH Visit (TeleHealth) Hematology and Ángel Fischer Oncology [facility] ONCOLOGY [place], [place] [address] (Shana hewitt) 02/11/2022 Infusion Hematology and Oncology 02/11/2022 Office Visit Hematology and Jazzy Armendariz R D Oncology [facility] DRIVE HEMATOLOGY AND ONCOLOGY [place], [place] [address] (Shana hewitt) 02/22/2022 TH Visit (TeleHealth) Hematology and Yaquelin Celis Oncology E, [facility] HEMATOLOGY AND ONCOLOGY [place], [place] 0[address] (Wo rk) 02/25/2022 Office Visit Hematology Ángel Kimbrough Oncology [facility] ONCOLOGY [place], [place] [address] (Wo rk) 02/25/2022 Infusion Hematology and Oncology 03/10/2022 Scheduled View Only Obstetrics and Nurse, Julian COLEMAN, geodesy teacher 03/10/2022 Office Visit Obstetrics and Shazia Whitley, Gynecology [facility] UROGYNECOLOGY [place], [place] [address] (Wo rk) 03/11/2022 Office Visit Hematology and Ángel Fischer MD [facility] [place] [address] Oncology Alyssa Joseph[address] MEDICAL ONCOLOGY [place], [place] [phone] 03/11/2022 Infusion Hematology and Oncology 03/25/2022 Office Visit Hematology and Alyssa Joseph Oncology [address] MEDICAL ONCOLOGY [place], [place] [address] (Wo rk) 03/25/2022 Infusion Hematology and Oncology 03/31/2022 Office Visit Hematology and Alan Livingston M D [facility] HEMATOLOGY/[place] [address] Oncology Nilam So, [facility] HEMATOLOGY/[place] [address] 04/08/2022 Office Visit Hematology and Ángel Fischer MD [facility] [place] [address] Oncology Alyssa Joseph, [address] MEDICAL ONCOLOGY [place], [place] [phone] 04/08/2022 Infusion Hematology and Oncology documented as of this encounter Visit Diagnoses Not on filedocumented in this encounter Care Teams Review Consultant Relationship Specialty Start Date End Date Berkley Madrigal MD PCP - General 04/13/10 02/15/18 AYLEEN Bray [address] [place], [place] [id number] documented as of this encounter
--- OUTSIDE RECORDS SUMMARY | 2022-02-11 01:14 | XMS_ITS | Encounter Summary ---
:1950 Author Organization [facility] [place] [address] Care Team Providers Name Role Phone Berkley Madrigal MD Primary Care Provider Reason for Visit Reason Comments Eye Problem The patient presents for pos toperative evaluation after having treatment for retinal tear in the righ t eye. MARCO ANTONIO Michael Eye Problem shared pt with dr. sosa Encounter Details Date Type Department Care Team Description 08/22/2012 Follow-Up Ophthalmology at [facility] Pavan Mancera Horseshoe retinal tear, righ t eye. Stable status post treatment at 12:00. No new lesions. Follow carefully (Primary Dx); [facility] MD Tori CLL (chronic lymphocytic leukemia); [facility] DR Romeo wallace, [place] [address] OPHTHALMOLOGY DEPT. [phone] [place], [place] [address] (Wo rk) Social History Tobacco [...] encounter Progress Notes Pavan Coffey MD - 08/22/2012 9:22 PM EDT The treatment looks a for and there are no new lesions. A preretinal hemorrhage is seen inferiorly but no unusual traction or other changes are identified. Follow carefully. Return immediately for any increasing floaters visual field loss, decreased visionor other related changes! documented in this encounter Plan of Treatment Upcoming Encounters Date Type Specialty Care Team Description 02/11/2022 Scheduled View Only Hematology Ángel Kimbrough Oncology [facility] DR LYNDSAY [place], [place] [address] (Shana hewitt) 02/11/2022 TH Visit (TeleHealth) Ángel Hill Oncology [facility] DR LYNDSAY [place], [place] [address] (Wo rk) 02/11/2022 Infusion Hematology and Oncology 02/11/2022 Office Visit Hematology and Jazzy Armendariz R D [facility] HEMATOLOGY AND ONCOLOGY [place], [place] [address] (Wo rk) 02/22/2022 TH Visit (TeleHealth) Hematology and Yaquelin Celis E, [facility] HEMATOLOGY AND ONCOLOGY [place], [place] 0[address] (Wo rk) 02/25/2022 Office Visit Hematology and Ángel Fischer, Oncology [facility] ONCOLOGY [place], [place] 0[address] (Wo rk) 02/25/2022 Infusion Hematology and Oncology 03/10/2022 Scheduled View Only Obstetrics and NurseJulian II, book retailer 03/10/2022 Office Visit Obstetrics and Shazia Whitley, Gynecology [facility] UROGYNECOLOGY [place], [place] [address] (Wo rk) 03/11/2022 Office Visit Hematology and Ángel Fischer MD [facility] [place] [address] Oncology Aylssa Joseph, [address] MEDICAL ONCOLOGY [place], [place] [phone] 03/11/2022 Infusion Hematology and Oncology 03/25/2022 Office Visit Hematology and Alyssa Joseph, Oncology [address] MEDICAL ONCOLOGY [place], [place] [phone] (Wo rk) 03/25/2022 Infusion Hematology and Oncology 03/31/2022 Office Visit Hematology and Alan Livingston M D [facility] HEMATOLOGY/[place] [address] Oncology Nilam So, FRATERNITY HOUSE COOK [facility] DR HEMATOLOGY/[place] [address] 04/08/2022 Office Visit Hematology and Ángel Fischer MD [facility] [place] [place] [address] Oncology Alyssa Joseph, FRATERNITY HOUSE COOK[address] MEDICAL ONCOLOGY [place], [place] [address] 04/08/2022 Infusion Hematology and Oncology documented as of this encounter Visit Diagnoses Diagnosis Horseshoe retinal tear, right eye. Stabl e status post treatment at 12:00. No new lesions. 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
--- OUTSIDE RECORDS SUMMARY | 2022-02-11 01:14 | XMS_ITS | Encounter Summary ---
:1950 Author Organization [facility] Address [facility] [place] [address] Care Team Providers Name Role Phone Berkley Madrigal MD Primary Care Provider Encounter Details Date Type Department Care Team Description 12/05/2010 Orders Only Hematology and Alan Livingston M D CLL (chronic Oncology at [facility] lymphocytic leukemia) [facility] DR Perkins HEMATOLOGY/[place] [address] Y DEPT. [phone] [place], [place] [address] Social History Tobacco Use Types Packs/Day Years Used Date Never Assessed Financial Resource Strain Answer Date Recorded How [...] Only Hematology Ángel Kimbrough Oncology [facility] ONCOLOGY [place], [place] [address] (Wo rk) 02/11/2022 TH Visit (TeleHealth) Hematology Ángel Kimbrough Oncology [facility] DR UMANA [place], [place] [address] (Wo rk) 02/11/2022 Infusion Hematology and Oncology 02/11/2022 Office Visit Hematology and Jazzy Armendariz R D Oncology [facility] CESAR HEMATOLOGY AND ONCOLOGY [place], [place] [address] (Wo rk) 02/22/2022 TH Visit (TeleHealth) Hematology and Yaquelin Celis Oncology E, [facility] HEMATOLOGY AND ONCOLOGY [place], [place] [address] (Wo rk) 02/25/2022 Office Visit Hematology Ángel Kimbrough Oncology [facility] DR UMANA [place], [place] [address] (Wo rk) 02/25/2022 Infusion Hematology and Oncology 03/10/2022 Scheduled View Only Obstetrics and Nurse, Obgyn II, primary care physician 03/10/2022 Office Visit Obstetrics and Shazia Whitley Gynecology [facility] UROGYNECOLOGY [place], [place] [address] (Wo rk) 03/11/2022 Office Visit Hematology and Ángel Fischer MD [facility] [place] [address] Oncology Alyssa Joseph[address] MEDICAL ONCOLOGY [place], [place] [phone] 03/11/2022 Infusion Hematology and Oncology 03/25/2022 Office Visit Hematology and Alyssa Joseph, Oncology [address] [place] [address] (Wo rk) 03/25/2022 Infusion Hematology and Oncology 03/31/2022 Office Visit Hematology and Alan Livingston M D [facility] DR HEMATOLOGY/[place] [address] [facility] [facility] [facility] [address] 04/08/2022 Office Visit Hematology and Ángel Fischer MD [facility] [place] [address] [address] MEDICAL ONCOLOGY [place], [place] [phone] 04/08/2022 Infusion Hematology and Oncology documented as of this encounter Results (ABNORMAL) Comprehensive metabolic panel (CMP) (12/06/2010 8:12 AM EDT) athologist Signature Glucose Lvl 94 60 - 199 CERNER mg/dL MILLENNIUM Comment: Diabetes: >=200 mg/dL plus symp toms BUN 18 8 - 18 mg/dL CERNER MILLENNIUM Creatinine 0.79 0.70 - 1.20 mg/dL CERNER MILL ENNIUM Sodium 139 135 - 145 mmol/L CERNER [...] - 107 mmol/L CERNER MILLENN IUM CO2 27 22 - 31 mmol/L CERNER MILLENNI UM Anion Gap 8 5 - 15 mmol/L CERNER MILLENNIU M Calcium 9.0 8.5 - 10.5 mg/dL CERNER JAVI NIUM Total Protein 6.5 6.4 - 8.3 gm/dL CERNER MIL LENNIUM Albumin 4.4 3.2 - 5.2 gm/dL CERNER MILLENN IUM AST 33 (H) 0 - 30 unit/L CERNER MILLENNIU M ALT 29 0 - 30 unit/L CERNER MILLENNIU M Alk Phos 61 40 - 104 unit/L CERNER MILLENN IUM Total Bilirubin 0.4 0.2 - 1.3 mg/dL CERNER M ILLENNIUM [...] week). For patient s multiply eGFR by 1.2.MDRD equation has not been validated for pediatric pat ients and is only valid for patients with age >= 18 years. At present, NKDEP does NOT recommend usi [...] kidney disease. References: http://nkdep.nih.gov/resources/NKDEP_Sug gestn4Labs_0606_508.pdf http://www.kidney.org/professionals/kls/ pdf/faq_gfr.pdf Specimen Anatomical Collection Method Collection Time Receive d Time (Source) Location / / Volume Laterality Blood specimen 12/06/2010 8:12 AM 011 8:15 (specimen) EDT AM EDT Alan Livingston MD CHEMISTRY ORDERABLES Performing Organization Address City/State/ZIP Code Phon e Number [place] [phone] CERNER MILLENNIUM (ABNORMAL) CBC (with Diff) (12/06/2010 8:12 AM EDT) P athologist Signature WBC 43.4 4.0 - 10.0 CERNER (Critical) x10(3)/mcL MILLENNIUM Comment: This result has been called to CALLED NC EV TO by DONALD ERVIN on; 12.06.10 at 09:23, and has been read back (). RBC 4.56 3.93 - 5.22 x10(6)/mcL CERNER MILLENNIUM Hemoglobin 14.0 11.2 - 15.7 gm/dL CERNER MILL ENNIUM Hematocrit 40.8 34.0 - 45.0 % CERNER MILLENNI UM MCV 89.5 79.0 - 94.0 fL CERNER MILLENNI UM MCH 30.7 26.6 - 32.2 pg CERNER MILLENNI UM MCHC 34.3 32.0 - 36.5 gm/dL CERNER MILLE NNIUM Platelets 173 145 - 370 x10(3)/mcL CERNER FL LLENNIUM RDWSD 43.6 35.0 - 46.0 fL YANELIS MCKENNA RDWCV 13.4 10.9 - 14.4 % YANELIS MOORE M MPV 11.2 9.0 - 12.0 fL YANELIS MCKENNAU M Specimen Anatomical Collection Method Collection Time Receive d Time (Source) Location / / Volume Laterality Blood specimen 12/06/2010 8:12 AM 011 8:15 (specimen) EDT AM EDT Alan Livingston MD HEMATOLOGY ORDERABLES Performing Organization Address City/State/[place] [address] YANELIS HEARNFORMERLY [facility] documented in this encounter Visit Diagnoses Diagnosis CLL (chronic lymphocytic leukemia) Chronic lymphoid leukemia, without menti on of having achieved remission documented in this encounter Care Teams Health And Safety Coordinator Relationship Specialty Start Date End Date Berkley Madrigal MD PCP - General 04/13/10 02/15/18 AYLEEN D [address] [place] [address] documented as of this encounter
--- OUTSIDE RECORDS SUMMARY | 2022-02-11 01:14 | XMS_ITS | Encounter Summary ---
:1950 Author Organization [facility] [place] [address] Care Team Providers Name Role Phone Berkley Madrigal MD Primary Care Provider Encounter Details Date Type Department Care Team Description 08/05/2011 Orders Only Hematology and Nilam So, Chronic ly mphoid Oncology at [facility] QUALITY NURSE leukemia (Primary Dx) [facility] [place] [address] HEMATOLOGY/ONCOLOG [phone] Y DEPT. [place], [place] [address] Social History Tobacco Use Types [...] [facility] ONCOLOGY [place], [place] [address] (Wo rk) 02/11/2022 TH Visit (TeleHealth) Hematology Ángel Kimbrough Oncology [facility] DR UMANA [place], [place] [address] (Wo rk) 02/11/2022 Infusion Hematology and Oncology 02/11/2022 Office Visit Hematology and Jazzy Armendariz R D Oncology [facility] CESAR HEMATOLOGY AND ONCOLOGY [place], [place] [address] (Wo rk) 02/22/2022 TH Visit (TeleHealth) Hematology and Yaquelin Celis Oncology E, [facility] HEMATOLOGY AND ONCOLOGY [place], [place] [address] (Wo rk) 02/25/2022 Office Visit Ángel Hill Oncology [facility] ONCOLOGY [place], [place] [address] (Wo rk) 02/25/2022 Infusion Hematology and Oncology 03/10/2022 Scheduled View Only Obstetrics and Nurse, Julian COLEMAN, salesforce trainer 03/10/2022 Office Visit Obstetrics and Shazia Whitley, Gynecology [facility] UROGYNECOLOGY [place], [place] [address] (Wo rk) 03/11/2022 Office Visit Hematology and Ángel Fischer MD [facility] [place] [address] Oncology Alyssa Joseph[address] MEDICAL ONCOLOGY [place], [place] [phone] 03/11/2022 Infusion Hematology and Oncology 03/25/2022 Office Visit Hematology and Alyssa Joseph, Oncology [address] [place] [address] (Wo rk) 03/25/2022 Infusion Hematology and Oncology 03/31/2022 Office Visit Hematology and Alan Livingston M D [facility] DR HEMATOLOGY/[place] [address] [facility] [address] 04/08/2022 Office Visit Hematology and Ángel Fischer MD [facility] [place] [address] Oncology Alyssa Joseph[address] MEDICAL ONCOLOGY [place], [place] [phone] 04/08/2022 Infusion Hematology and Oncology documented as of this encounter Results Comprehensive metabolic panel (non-fasting) (09/12/2011 12:43 PM EDT) athologist Signature Glucose Lvl 105 60 - 199 CERNER mg/dL MILLENNIUM Comment: Diabetes: >=200 mg/dL plus symp toms BUN 16 8 - 18 mg/dL CERNER MILLENNIUM Creatinine 0.88 0.70 - 1.20 mg/dL CERNER MILL ENNIUM Sodium 140 135 - 145 mmol/L CERNER JAVI NIUM Potassium 4.4 3.5 - 5.0 mmol/L CERNER JAVI NIUM Comment: Please note: ??Patients with WBC >100,00 0 may have falsely elevated Potassium levels. ??For accurate Potassium quantif ication in these patients send serum separator tube (gold top) for subsequent determinations. ??Contact the Clinical Chemistry Laboratory if there are any qu estions. Chloride 101 98 - 107 mmol/L CERNER MILLENN IUM CO2 29 22 - 31 mmol/L CERNER MILLENNI UM Anion Gap 10 5 - 15 mmol/L CERNER MILLENNIU M Calcium 9.6 8.5 - 10.5 mg/dL CERNER JAVI NIUM Total Protein 6.9 6.4 - 8.3 gm/dL CERNER MIL LENNIUM Albumin 4.6 3.2 - 5.2 gm/dL CERNER MILLENN IUM AST 26 0 - 30 unit/L CERNER MILLENNIU M [...] Location / / Volume Laterality Blood specimen 09/12/2011 12:43 2 (specimen) PM EDT 12:48 PM EDT Resulting Agency Comment Spec In Lab Alan Livingston MD CHEMISTRY ORDERABLES Performing Organization Address City/State/ZIP [place] [address] [facility] (ABNORMAL) CBC (with Diff) (09/12/2011 12:43 PM EDT) P athologist Signature WBC 69.3 4.0 - 10.0 CERNER (Critical) x10(3)/mcL [facility] Comment: This result has been called to abel gil by DOROTEO BARRAGAN on 09.12.11 at 13:16, and moser s been read back (). RBC 4.87 3.93 - 5.22 x10(6)/mcL CERNER MILLENNIUM Hemoglobin 14.9 11.2 - 15.7 gm/dL KALEENER MILL ENNIUM Hematocrit 44.6 34.0 - 45.0 % CERNER MILLENNI UM MCV 91.6 79.0 - 94.0 fL CERNER MILLENNI UM MCH 30.6 26.6 - 32.2 pg CERNER MILLENNI UM MCHC 33.4 32.0 - 36.5 gm/dL YANELIS MILLE NNIUM Platelets 177 145 - 370 x10(3)/mcL KALEENER PA LLENNIUM RDWSD 44.1 35.0 - 46.0 fL KALEENER HERMESENNI UM RDWCV 13.3 10.9 - 14.4 % YANELIS HEARNIU M MPV 11.5 9.0 - 12.0 fL YANELIS MIRZAENNIU M Specimen Anatomical Collection Method Collection Time Receive d Time (Source) Location / / Volume Laterality Blood specimen 09/12/2011 12:43 2 (specimen) PM EDT 12:48 PM EDT Resulting Agency Comment Spec In Lab Alan Livingston MD HEMATOLOGY ORDERABLES Performing Organization Address City/State/[place] [address] YANELIS SALCIDO documented in this encounter Visit Diagnoses Diagnosis Chronic lymphoid leukemia, without menti on of having achieved remission(204.10) - Primary Chronic lymphoid leukemia, without menti on of having achieved remission documented in this encounter Care Teams Oracle Consultant Relationship Specialty Start Date End Date Berkley Madrigal MD PCP - General 04/13/10 02/15/18 AYLEEN D [address] [place] [address] documented as of this encounter
--- OUTSIDE RECORDS SUMMARY | 2022-02-11 01:14 | XMS_ITS | Encounter Summary ---
:1950 Author Organization [facility] [place] [address] Care Team Providers Name Role Phone Berkley Madrigal MD Primary Care Provider Encounter Details Date Type Department Care Team Description 09/12/2011 Laboratory Hematology and CLINIC, DR BENJAMIN NGO (chron ic Appointment Oncology at [facility] Rod King MD [facility] HEMATOLOGY/[place] [address] lymphocytic [facility] leukemia) [place] [id number] Social History Tobacco Use Types Packs/Day Years [...] 02/11/2022 Scheduled View Only Hematology and Ángel iFscher Oncology [facility] ONCOLOGY [place], [place] [address] (Wo rk) 02/11/2022 TH Visit (TeleHealth) Hematology Ángel Kimbrough Oncology [facility] DR UMANA [place], [place] [address] (Wo rk) 02/11/2022 Infusion Hematology and Oncology 02/11/2022 Office Visit Hematology and Jazzy Armendariz R D Oncology [facility] CESAR HEMATOLOGY AND ONCOLOGY [place], [place] [address] (Wo rk) 02/22/2022 TH Visit (TeleHealth) Hematology and Yaquelin Celis Oncology E, [facility] HEMATOLOGY AND ONCOLOGY [place], [place] [address] (Wo rk) 02/25/2022 Office Visit Ángel Hill Oncology [facility] ONCOLOGY [place], [place] [address] (Wo rk) 02/25/2022 Infusion Hematology and Oncology 03/10/2022 Scheduled View Only Obstetrics and Nurse, Obgyn II, data center consultant 03/10/2022 Office Visit Obstetrics and Shazia Whitley Gynecology [facility] UROGYNECOLOGY [place], [place] [address] (Wo rk) 03/11/2022 Office Visit Hematology and Ángel Fischer MD [facility] [place] [place] [address] Oncology Alyss[address] Joseph[address] MEDICAL ONCOLOGY [place], [place] [phone] 03/11/2022 Infusion Hematology and Oncology 03/25/2022 Office Visit Hematology and Alyssa Joseph, Oncology [address] MEDICAL ONCOLOGY [place], [place] [phone] (Wo rk) 03/25/2022 Infusion Hematology and Oncology 03/31/2022 Office Visit Hematology and Alan Livingston M D [facility] DR HEMATOLOGY/[place] [address] [address]cology [address] [facility] [address] 04/08/2022 Office Visit Hematology and Ángel Fischer MD [facility] [place] [place] [address] Oncology Alyssa Joseph[address] MEDICAL ONCOLOGY [place], [place] [phone] 04/08/2022 Infusion Hematology and Oncology documented as of this encounter Visit Diagnoses Diagnosis CLL (chronic lymphocytic leukemia) Chronic lymphoid leukemia, without menti on of having achieved remission documented in this encounter Care Teams Conditioner Tender Relationship Specialty Start Date End Date Berkley Madrigal MD PCP - General 04/13/10 02/15/18 AYLEEN Bray [address] [place] [address] documented as of this encounter
--- OUTSIDE RECORDS SUMMARY | 2022-02-11 01:14 | XMS_ITS | Encounter Summary ---
:1950 Author Organization [facility] Address [facility] [place] [address] Care Team Providers Name Role Phone Berkley Madrigal MD Primary Care Provider Reason for Visit Reason Comments Skin Check Encounter Details Date Type Department Care Team Description 03/08/2013 Office Visit Dermatology Justino Cardenas Verruca vulgaris [address] [facility] (Primary Dx) [address] [place], [place] DERMATOLOGY [address] [place] [address] [phone] (Wo rk) Social History Tobacco Use Types [...] encounter Progress Notes Justino Cardenas MD - 03/08/2013 3:36 PM EDT Problem: Right upper cutaneous lip lesion. Carol follows up after last being seen three years ago in February 2010. At that time, I treated what appeared to be an actinic keratosis of the right upper lip, a flat-topped hyperkeratotic papule. This seemed to resolve for a time, but then has grown back recently and become quite hyperkeratotic and large. 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 The differential would include verruca versus a well-differentiated SCCA. The rest of the facial examination is benign. Patient is very fair skinned. Assessment and Plan: 1. Rule out SCCA versus verruca vulgaris, right upper cutaneous lip, arising at a site of previous LN2 therapy three years ago for suspected actinic keratosis. a. After obtaining informed consent, site was anesthetized and light shave C and D times three performed. b. Triple antibiotic ointment and Band-Aid placed. c. Wound care instructions and supplies given. Will notify patient of biopsy results in one week. If positive for SCCA, would recommend return appointment in six months, otherwise p.r.n. COPY: Berkley Madrigal M.D. documented in this encounter Plan of Treatment Upcoming Encounters Date Type Specialty Care Team Description 02/11/2022 Scheduled View Only Hematology Ángel Kimbrough Oncology [facility] ONCOLOGY [place], [place] [address] (Wo rk) 02/11/2022 TH Visit (TeleHealth) Hematology Ángel Kimbrough Oncology [facility] DR UMANA [place], [place] [address] (Wo rk) 02/11/2022 Infusion Hematology and Oncology 02/11/2022 Office Visit Hematology and Jazzy Armendariz R D [facility] CESAR HEMATOLOGY AND ONCOLOGY [place], [place] [address] (Wo rk) 02/22/2022 TH Visit (TeleHealth) Hematology and Yaquelin Celis Oncology E, [facility] HEMATOLOGY AND ONCOLOGY [place], [place] [address] (Wo rk) 02/25/2022 Office Visit Hematology Ángel Kimbrough Oncology [facility] DR UMANA [place], [place] [address] (Wo rk) 02/25/2022 Infusion Hematology and Oncology 03/10/2022 Scheduled View Only Obstetrics and Nurse, Julian COLEMAN, front office specialist 03/10/2022 Office Visit Obstetrics and Shazia Whitley Gynecology [facility] UROGYNECOLOGY [place], [place] [address] (Wo rk) 03/11/2022 Office Visit Ángel Hill MD [facility] [place] [address] Oncology Alyssa Joseph, [address] MEDICAL ONCOLOGY [place], [place] [address] 03/11/2022 Infusion Hematology and Oncology 03/25/2022 Office Visit Hematology and Alyssa Joseph, Oncology [address] MEDICAL ONCOLOGY [place], [place] [address] (Wo rk) 03/25/2022 Infusion Hematology and Oncology 03/31/2022 Office Visit Hematology and Alan Livingston M D [facility] DR HEMATOLOGY/[place] [address] [facility]cology [facility] [address] 04/08/2022 Office Visit Hematology and Ángel Fischer MD [facility] [place] [address] Oncology Alyssa Joseph, [address] MEDICAL ONCOLOGY [place], [place] [phone] 04/08/2022 Infusion Hematology and Oncology documented as of this encounter Visit Diagnoses Diagnosis Verruca vulgaris - Primary Viral warts, unspecified documented in this encounter Care Teams Making Machine Catcher Relationship Specialty Start Date End Date Berkley Madrigal MD PCP - General 04/13/10 02/15/18 AYLEEN Bray [address] [place], [place] [address] documented as of this encounter
--- OUTSIDE RECORDS SUMMARY | 2022-02-11 01:14 | XMS_ITS | Encounter Summary ---
:1950 Author Organization [facility] Address [facility] [place] [address] Care Team Providers Name Role Phone Berkley Madrigal MD Primary Care Provider Encounter Details Date Type Department Care Team Description 06/08/2012 Orders Only Hematology and Sai Cartwright V[facility] [place] lymphocytic leukemia) [facility] (Pr imary Dx) [place] [address] HEMATOLOGY/ONCOLOG [phone] Y DEPT. [place], [place] [address] Social History Tobacco Use Types [...] Fischer Oncology [facility] ONCOLOGY [place], [place] [address] (Shana rk) 02/11/2022 TH Visit (TeleHealth) Hematology Ángel Kimbrough Oncology [facility] DR UMANA [place], [place] [address] (Wo rk) 02/11/2022 Infusion Hematology and Oncology 02/11/2022 Office Visit Hematology and Jazzy Armendariz R D Oncology [facility] HEMATOLOGY AND ONCOLOGY [place], [place] [address] (Wo rk) 02/22/2022 TH Visit (TeleHealth) Hematology and Yaquelin Celis Oncology E, [facility] HEMATOLOGY AND ONCOLOGY [place], [place] [address] (Wo rk) 02/25/2022 Office Visit Hematology Ángel Kimbrough Oncology [facility] DR LYNDSAY [place], [place] [address] (Shana rk) 02/25/2022 Infusion Hematology and Oncology 03/10/2022 Scheduled View Only Obstetrics and Nurse, Julian COLEMAN, wreath inspector 03/10/2022 Office Visit Obstetrics and Shazia Whitley, Gynecology [facility] UROGYNECOLOGY [place], [place] [address] (Wo rk) 03/11/2022 Office Visit Hematology and Ángel Fischer MD [facility] [place] [address] Oncology [address] Joseph[address] MEDICAL ONCOLOGY [place], [place] [id number] 03/11/2022 Infusion Hematology and Oncology 03/25/2022 Office Visit Hematology and Alyssa Joseph, Oncology [address] [place] [address] (Wo rk) 03/25/2022 Infusion Hematology and Oncology 03/31/2022 Office Visit Hematology and Alan Livingston M D [facility] DR HEMATOLOGY/[place] [address] [facility] [facility] [facility] [address] 04/08/2022 Office Visit Hematology and Ángel Fischer MD [facility] [place] [address] Oncology [address]lyss[address] Joseph[address] ONCOLOGY [place], [place] [id number] 04/08/2022 Infusion Hematology and Oncology Scheduled Orders Name Type Priority Associated Diagnoses Order S chedule Miscellaneous Lab request Lab Routine CLL (chronic ly mphocytic Expected: 06/11/2012 leukemia) (Approximate), Expires: 2012 documented as of this encounter Visit Diagnoses Diagnosis CLL (chronic lymphocytic leukemia) - Cordelia watt Chronic lymphoid leukemia, without menti on of having achieved remission documented in this encounter Care Teams Auto Slip Cover Installer Relationship Specialty Start Date End Date Berkley Madrigal MD PCP - General 04/13/10 02/15/18 AYLEEN Bray [address] [place] [address] documented as of this encounter
--- OUTSIDE RECORDS SUMMARY | 2022-02-11 01:14 | XMS_ITS | Encounter Summary ---
:1950 Author Organization [facility] Address [facility] [place] [address] Care Team Providers Name Role Phone Berkley Madrigal MD Primary Care Provider Reason for Visit Reason Comments Follow-up Encounter Details Date Type Department Care Team Description 06/11/2012 Follow-Up Hematology and Alan Livingston M D CLL (chronic Oncology at [facility] lymphocytic leukemia) [facility] DR Perkins HEMATOLOGY/[place] [address] DEPT. [phone] [place], [place] [address] (Wo rk) Social History Tobacco [...] Sign Reading Time Taken Comments Blood Pressure 120/64 06/11/2012 1:03 PM EST Pulse 98 06/11/2012 1:03 PM EST Temperature 36.8 ??C (98.2 ??F) 06/11/2012 1:03 PM EST Respiratory Rate 16 06/11/2012 1:03 PM EST Oxygen Saturation 98% 06/11/2012 1:03 PM EST Inhaled Oxygen Concentration - - Weight 74.6 kg (164 lb 6.4 oz) 06/11/2012 1:03 PM EST Height 164 cm (5' 4.57) 06/11/2012 1:03 PM EST Body Mass Index 27.73 06/11/2012 1:03 PM EST documented in this encounter Progress Notes Alan Livingston MD - 06/26/2012 1:39 PM EST Subjective: Patient ID: Carol Stock is a 62 y.o. female here for f/u of CLL Patient Active Problem List Diagnoses ??? SVT (supraventricular tachycardia) ??? Urinary incontinence, overflow ??? GERD (gastroesophageal reflux disease) ??? Diabetes mellitus ??? 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 Cytogenetics 13 deletion (favorable prognosis) HPI She returns for routine f/u for established dx of CLL No major medical events. No F/C/Sweats or wt loss. Not having frequent infections Review of Systems Constitutional: Negative. HENT: Negative. Eyes: Negative. Respiratory: Negative. Negative for cough and shortness of breath. Cardiovascular: Negative. Negative for chest pain, palpitations and leg swelling. Gastrointestinal: Negative. Negative for nausea, vomiting, diarrhea and constipation. Genitourinary: Negative. Musculoskeletal: Negative. Skin: Negative. Neurological: Negative. Negative for weakness and numbness. Hematological: Negative. Psychiatric/Behavioral: Negative. Objective: Physical Exam BP 120/64 Pulse 98 Temp(Src) 36.8 ??C (98.2 ??F) (Oral) Resp 16 Ht 164 cm (5' 4.57) Wt 74.571 kg (164 lb 6.4 oz) BMI 27.73 kg/m2 SpO2 98% Constitutional: She is oriented to person, place, and time. She appears well- developed and well-nourished. No distress. HENT: Head: Atraumatic. Mouth/Throat: Oropharynx is clear and moist. Eyes: Conjunctivae are normal. Pupils are equal, round, and reactive to light. Neck: Normal range of motion. Neck supple. Right posterior cervical node - less than 1cm. No other palpable adenopathy Cardiovascular: Normal rate, regular rhythm and normal heart sounds. No murmur heard. Pulmonary/Chest: Effort normal and breath sounds normal. She has no wheezes. She has no rales. Abdominal: Soft. Bowel sounds are normal. Musculoskeletal: Normal range of motion. She exhibits no edema. Lymphadenopathy: She has <1 cm cervical adenopathy. Neurological: She is alert and oriented to person, place, and time. Skin: Skin is warm and dry. Psychiatric: She has a normal mood and affect. DATA: Results for CAROL STOCK ( ) Ref. Range 12/06/2010 08:12 09/12/2011 12:43 12/12/2011 14:39 06/11/2012 12:12 WBC Latest Range: 4.0-10.0 x10(3)/mcL 43.4 (CRIT) 69.3 (CRIT) 64.9 (CRIT) 84.2 (CRIT) RBC Latest Range: 3.93-5.22 x10(6)/mcL 4.56 4.87 4.57 4.44 Hemoglobin Latest Range: 11.2-15.7 gm/dL 14.0 14.9 14.1 13.6 Hematocrit Latest Range: 34.0-45.0 % 40.8 44.6 41.6 41.4 MCV Latest Range: 79.0-94.0 fL 89.5 91.6 91.0 93.2 MCH Latest Range: 26.6-32.2 pg 30.7 30.6 30.9 30.6 MCHC Latest Range: 32.0-36.5 gm/dL 34.3 33.4 33.9 32.9 RDWSD Latest Range: 35.0-46.0 fL 43.6 44.1 44.8 47.2 (H) RDWCV Latest Range: 10.9-14.4 % 13.4 13.3 13.6 13.8 Platelets Latest Range: 145-370 x10(3)/mcL 173 177 164 203 Assessment and Plan: Assessment: 62 yo female w/ CLL. She has good risk features. Her WBC continues to climb but no reason to initiate treatment (no thrombocytopenia or anemia and nosymptoms) We will continue to follow her in clinic. She will return in 4-6 months Stefania Arechiga RN - 06/11/2012 12:08 PM EST Documentation of Informed Consent to Participate in Clinical Trial D0905: Protocol to Obtain Blood Samples for Leukemia Research Patient was seen in Hematology-Oncology clinic while awaiting lupe???d blood draw for lab work prior to her appt with Dr. Livingston on 06/11/12. I have confirmed this patient has CLL and is having routine blood draws performed at [facility]. Patient was offered the opportunity to participate [...] options or care at this institution. Ms. Stock was given written informed consent form to read and review. She was given adequate time to review all information, and to ask questions and review concerns, all of which were answered to her satisfaction. Patient verbalized understanding of this protocol and consented for treatment on study D0905. Consent form was signed and dated by patient and health technical writer. Written informed consent was obtained prior to [...] Only Hematology and Ángel Fischer Oncology [facility] DR UMANA [place], [place] [address] (Wo rk) 02/11/2022 TH Visit (TeleHealth) Ángel Hill Oncology [facility] DR UMANA [place], [place] [address] (Wo rk) 02/11/2022 Infusion Hematology and Oncology 02/11/2022 Office Visit Hematology and Jazzy Armendariz R D Oncology [facility] DRIVE HEMATOLOGY AND ONCOLOGY [place], [place] [address] (Wo rk) 02/22/2022 TH Visit (TeleHealth) Hematology and Yaquelin Celis Oncology E, [facility] HEMATOLOGY AND ONCOLOGY [place], [place] [address] (Wo rk) 02/25/2022 Office Visit Ángel Hill Oncology [facility] DR LYNDSAY [place], [place] [address] (Wo rk) 02/25/2022 Infusion Hematology and Oncology 03/10/2022 Scheduled View Only Obstetrics and Nurse, Obgymichelle II, retail buyer 03/10/2022 Office Visit Obstetrics and Shazia Whitley, Gynecology [facility] UROGYNECOLOGY [place], [place] [address] (Wo rk) 03/11/2022 Office Visit Hematology and Ángel Fischer MD [facility] [place] [address] Oncology Alyssa Joseph[address] MEDICAL ONCOLOGY [place], [place] [phone] 03/11/2022 Infusion Hematology and Oncology 03/25/2022 Office Visit Hematology and Alyssa Joseph, Oncology [address] MEDICAL ONCOLOGY [place], [place] [phone] (Wo rk) 03/25/2022 Infusion Hematology and Oncology 03/31/2022 Office Visit Hematology and Alan Livingston M D [facility] DR HEMATOLOGY/[place] [address] [facility] [address] 04/08/2022 Office Visit Hematology and Ángel Fischer MD [facility] [place] [address] Oncology [address]lyss[address] Joseph[address] MEDICAL ONCOLOGY [place], [place] [id number] 04/08/2022 Infusion Hematology and Oncology documented as of this encounter Results (ABNORMAL) Comprehensive metabolic panel (non-fasting) (10/08/2012 11:59 AM EDT) athologist Signature Glucose Lvl 94 60 - 199 CERNER mg/dL MILLENNIUM Comment: Diabetes: >=200 mg/dL plus symp toms BUN 13 8 - 18 mg/dL CERNER MILLENNIUM Creatinine 0.88 0.70 - 1.20 mg/dL CERNER MILL ENNIUM Comment: Please note that the pediatric reference intervals supplied above were not validated at [facility]. Results from pediatri c patients should be interpreted in conjunction to the patient's age, height and muscle mass. Sodium 143 135 - 145 mmol/L CERNER JAVI NIUM Potassium 4.5 3.5 - 5.0 mmol/L CERNER JAVI NIUM Comment: Please note: ??Patients with WBC >100,00 0 may have falsely elevated Potassium levels. ??For accurate Potassium quantif ication in these patients send serum separator tube (gold top) for subsequent determinations. ??Contact the Clinical Chemistry Laboratory if there are any qu estions. Chloride 104 98 - 107 mmol/L CERNER MILLENN IUM CO2 33 (H) 22 - 31 mmol/L CERNER MILLENNI UM Anion Gap 6 5 - 15 mmol/L CERNER MILLENNIU M Calcium 9.6 8.5 - 10.5 mg/dL CERNER JAVI NIUM Total Protein 6.6 6.4 - 8.3 gm/dL CERNER MIL LENNIUM Albumin 4.4 3.2 - 5.2 gm/dL CERNER MILLENN IUM AST 24 0 - 30 unit/L CERNER MILLENNIU M ALT 19 0 - 30 unit/L CERNER MILLENNIU M Alk Phos 68 40 - 104 unit/L CERNER MILLENN IUM [...] the following links into your internet browser. http://www.web2media.skp.nih.gov/lab-evaluation. shtml http://www.kidney.org/professionals/ Specimen Anatomical Collection Method Collection Time Receive d Time (Source) Location / / Volume Laterality Blood specimen 10/08/2012 11:59 3 (specimen) AM EDT 12:08 PM EDT Resulting Agency Comment Spec In Lab Alan Livingston MD CHEMISTRY ORDERABLES Performing Organization Address City/State/[place] [address] CERNER MILLENNIUM (ABNORMAL) CBC (with Diff) (10/08/2012 11:59 AM EDT) P athologist Signature WBC 93.8 4.0 - 10.0 CERNER (Critical) x10(3)/mcL MILLENNIUM Comment: This result has been called to CAROL BERMUDEZ by TYSON MILLS on 10.08.12 at 12:42, and has leona avitia read back (). RBC 4.67 3.93 - 5.22 x10(6)/mcL CERNER MILLENNIUM Hemoglobin 14.1 11.2 - 15.7 gm/dL CERNER MILL ENNIUM Hematocrit 44.2 34.0 - 45.0 % CERNER MILLENNI UM MCV 94.6 (H) 79.0 - 94.0 fL CERNER MILLENNI UM MCH 30.2 26.6 - 32.2 pg CERNER MILLENNI UM MCHC 31.9 (L) 32.0 - 36.5 gm/dL CERNER MILLE NNIUM Platelets 177 145 - 370 x10(3)/mcL CERNER CO LLENNIUM RDWSD 46.4 (H) 35.0 - 46.0 fL CERNER MILLENNI UM RDWCV 13.7 10.9 - 14.4 % CERNER MILLENNIU M MPV 11.8 9.0 - 12.0 fL CERNER MILLENNIU M Specimen Anatomical Collection Method Collection Time Receive d Time (Source) Location / / Volume Laterality Blood specimen 10/08/2012 11:59 3 (specimen) AM EDT 12:08 PM EDT Resulting Agency Comment Spec In Lab Alan Livingston MD HEMATOLOGY ORDERABLES Performing Organization Address City/State/ZIP Code Phon e Number [place] [phone] [facility] documented in this encounter Visit Diagnoses Diagnosis CLL (chronic lymphocytic leukemia) Chronic lymphoid leukemia, without menti on of having achieved remission documented in this encounter Care Teams Bellstand Attendant Relationship Specialty Start Date End Date Berkley Madrigal MD PCP - General 04/13/10 02/15/18 AYLEEN Katarina [address] [place], [place] [phone] documented as of this encounter
--- OUTSIDE RECORDS SUMMARY | 2022-02-11 01:14 | XMS_ITS | Encounter Summary ---
:1950 Author Organization [facility] Address [address] [facility] [place] [address] Care Team Providers Name Role Phone Berkley Madrigal MD Primary Care Provider Reason for Visit Reason Comments Follow-up Encounter Details Date Type Department Care Team Description 12/12/2011 Follow-Up Hematology and Alan Livingston M D Chronic lymphoid Oncology at [facility] leukemia (without [facility] DR mention of remission) Drive HEMATOLOGY/ONCOLOGY (Primary Dx) [place] [address] DEPT. [phone] [place], [place] [address] (Wo rk) Social History [...] Sign Reading Time Taken Comments Blood Pressure 127/64 12/12/2011 3:36 PM EDT Pulse 69 12/12/2011 3:36 PM EDT Temperature 36.3 ??C (97.3 ??F) 12/12/2011 3:36 PM EDT Respiratory Rate 16 12/12/2011 3:36 PM EDT Oxygen Saturation 98% 12/12/2011 3:36 PM EDT Inhaled Oxygen Concentration - - Weight 72.3 kg (159 lb 6.4 oz) 12/12/2011 3:36 PM EDT Height 164.1 cm (5' 4.61) 12/12/2011 3:36 PM EDT Body Mass Index 26.85 12/12/2011 3:36 PM EDT documented in this encounter Patient Instructions Patient InstructionsSchaaNilam fuentes APRN - 12/12/2011 3:59 PM EDT Results for orders placed in visit on 12/12/11 (from the past 72 hour(s)) CBC (WITH DIFF) Component Value Range ??? WBC 64.9 (*) 4.0 - 10.0 (x10(3)/mcL) ??? RBC 4.57 3.93 - 5.22 (x10(6)/mcL) ??? Hemoglobin 14.1 11.2 - 15.7 (gm/dL) ??? Hematocrit 41.6 34.0 - 45.0 (%) ??? MCV 91.0 79.0 - 94.0 (fL) ??? MCH 30.9 26.6 - 32.2 (pg) ??? MCHC 33.9 32.0 - 36.5 (gm/dL) ??? Platelets 164 145 - 370 (x10(3)/mcL) ??? RDWSD 44.8 35.0 - 46.0 (fL) ??? RDWCV 13.6 10.9 - 14.4 (%) ??? MPV 11.7 9.0 - 12.0 (fL) COMPREHENSIVE METABOLIC PANEL (NON-FASTING) Component Value Range ??? Glucose Lvl 98 60 - 199 (mg/dL) ??? BUN 14 8 - 18 (mg/dL) ??? Creatinine 0.77 0.70 - 1.20 (mg/dL) ??? Sodium 142 135 - 145 (mmol/L) ??? Potassium 4.4 3.5 - 5.0 (mmol/L) ??? Chloride 106 98 - 107 (mmol/L) ??? CO2 30 22 - 31 (mmol/L) ??? Anion Gap 6 5 - 15 (mmol/L) ??? Calcium 8.8 8.5 - 10.5 (mg/dL) ??? Total Protein 6.4 6.4 - 8.3 (gm/dL) ??? Albumin 4.3 3.2 - 5.2 (gm/dL) ??? AST 27 0 - 30 (unit/L) ??? ALT 18 0 - 30 (unit/L) ??? Alk Phos 65 40 - 104 (unit/L) ??? Total Bilirubin 0.3 0.2 - 1.3 (mg/dL) ??? Bili, Direct 0.1 0.0 - 0.3 (mg/dL) ? ? Estimated GFR >60 >=60 LACTATE DEHYDROGENASE Component Value Range ??? LDH 229 (*) 110 - 220 (unit/L) SCAN, PERIPHERAL BLOOD Component Value Range ??? Plat Estimate Normal ??? RBC Morphology Normal ??? Smudge Cells Present NUCLEATED RED BLOOD CELLS Component Value Range ??? nRBC % Auto 0.0 0.0 - 0.2 (%) ??? nRBC Abs Auto 0.000 0.000 - 0.012 (x10(3)/mcL) DIFFERENTIAL, AUTOMATED Component Value Range ??? Neutrophils % 7.4 (*) 34.0 - 71.0 (%) ??? Neutr Abs (ANC) 4.76 1.50 - 6.30 (x10(3)/mcL) ??? Lymphocytes % 90.5 (*) 19.0 - 53.0 (%) ??? Lymphocytes Abs 58.7 (*) 1.0 - 3.6 (x10(3)/mcL) ??? Monocytes % 1.4 (*) 4.0 - 13.0 (%) ??? Monocyte Abs 0.9 0.2 - 1.0 (x10(3)/mcL) ??? Eosinophils % 0.4 0.0 - 7.0 (%) ??? Eosinophils Abs 0.2 0.0 - 0.5 (x10(3)/mcL) ??? Basophils % 0.2 0.0 - 2.0 (%) ??? Basophils Abs 0.2 0.0 - 0.2 (x10(3)/mcL) ??? Immature Gran % 0.10 0.00 - 0.66 (%) ??? Claudia Gran Abs 0.05 0.00 - 0.05 (x10(3)/mcL) BP 127/64 Pulse 69 Temp(Src) 36.3 ??C (97.3 ??F) (Oral) Resp 16 Ht 164.1 cm (5' 4.61) Wt 72.303 kg (159 lb 6.4 oz) BMI 26.85 kg/m2 SpO2 98% documented in this encounter Progress Notes Nilam So APRN - 12/12/2011 4:24 PM EDT Subjective: Patient ID: Carol Keller is a 61 y.o. female here for f/u of CLL Patient Active Problem List Diagnoses ??? SVT (supraventricular tachycardia) ??? Urinary incontinence, overflow ??? GERD (gastroesophageal reflux disease) ??? Diabetes mellitus ??? 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 Cytogenetics 13 deletion (favorable prognosis) DIANE House has been dpoing quite well. She did have a long sinus infection since we saw her last - yellow discharge - believed to be viral and no antibiotic treatment - this did finally resolve on its own. Otherwise she has been well - NO B Symptoms. Review of Systems Constitutional: Negative. HENT: Negative. [...] no edema. Lymphadenopathy: She has cervical adenopathy. Neurological: She is alert and oriented to person, place, and time. Skin: Skin is warm and dry. Psychiatric: She has a normal mood and affect. Results for orders placed in visit on 12/12/11 (from the past 72 hour(s)) CBC (WITH DIFF) Component Value Range ??? WBC 64.9 (*) 4.0 - 10.0 (x10(3)/mcL) ??? RBC 4.57 3.93 - 5.22 (x10(6)/mcL) ??? Hemoglobin 14.1 11.2 - 15.7 (gm/dL) ??? Hematocrit 41.6 34.0 - 45.0 (%) ??? MCV 91.0 79.0 - 94.0 (fL) ??? MCH 30.9 26.6 - 32.2 (pg) ??? MCHC 33.9 32.0 - 36.5 (gm/dL) ??? Platelets 164 145 - 370 (x10(3)/mcL) ??? RDWSD 44.8 35.0 - 46.0 (fL) ??? RDWCV 13.6 10.9 - 14.4 (%) ??? MPV 11.7 9.0 - 12.0 (fL) COMPREHENSIVE METABOLIC PANEL (NON-FASTING) Component Value Range ??? Glucose Lvl 98 60 - 199 (mg/dL) ??? BUN 14 8 - 18 (mg/dL) ??? Creatinine 0.77 0.70 - 1.20 (mg/dL) ??? Sodium 142 135 - 145 (mmol/L) ??? Potassium 4.4 3.5 - 5.0 (mmol/L) ??? Chloride 106 98 - 107 (mmol/L) ??? CO2 30 22 - 31 (mmol/L) ??? Anion Gap 6 5 - 15 (mmol/L) ??? Calcium 8.8 8.5 - 10.5 (mg/dL) ??? Total Protein 6.4 6.4 - 8.3 (gm/dL) ??? Albumin 4.3 3.2 - 5.2 (gm/dL) ??? AST 27 0 - 30 (unit/L) ??? ALT 18 0 - 30 (unit/L) ??? Alk Phos 65 40 - 104 (unit/L) ??? Total Bilirubin 0.3 0.2 - 1.3 (mg/dL) ??? Bili, Direct 0.1 0.0 - 0.3 (mg/dL) ? ? Estimated GFR >60 >=60 LACTATE DEHYDROGENASE Component Value Range ??? LDH 229 (*) 110 - 220 (unit/L) SCAN, PERIPHERAL BLOOD Component Value Range ??? Plat Estimate Normal ??? RBC Morphology Normal ??? Smudge Cells Present NUCLEATED RED BLOOD CELLS Component Value Range ??? nRBC % Auto 0.0 0.0 - 0.2 (%) ??? nRBC Abs Auto 0.000 0.000 - 0.012 (x10(3)/mcL) DIFFERENTIAL, AUTOMATED Component Value Range ??? Neutrophils % 7.4 (*) 34.0 - 71.0 (%) ??? Neutr Abs (ANC) 4.76 1.50 - 6.30 (x10(3)/mcL) ??? Lymphocytes % 90.5 (*) 19.0 - 53.0 (%) ??? Lymphocytes Abs 58.7 (*) 1.0 - 3.6 (x10(3)/mcL) ??? Monocytes % 1.4 (*) 4.0 - 13.0 (%) ??? Monocyte Abs 0.9 0.2 - 1.0 (x10(3)/mcL) ??? Eosinophils % 0.4 0.0 - 7.0 (%) ??? Eosinophils Abs 0.2 0.0 - 0.5 (x10(3)/mcL) ??? Basophils % 0.2 0.0 - 2.0 (%) ??? Basophils Abs 0.2 0.0 - 0.2 (x10(3)/mcL) ??? Immature Gran % 0.10 0.00 - 0.66 (%) ??? Claudia Gran Abs 0.05 0.00 - 0.05 (x10(3)/mcL) BP 127/64 Pulse 69 Temp(Src) 36.3 ??C (97.3 ??F) (Oral) Resp 16 Ht 164.1 cm (5' 4.61) Wt 72.303 kg (159 lb 6.4 oz) BMI 26.85 kg/m2 SpO2 98% Assessment and Plan: Assessment: CLL. Counts stable, No worrisome or symptomatic adenoapthy. No B symptoms, ALC doubling time has now stablalized, No recurrent infections, no signs of AIHA or ITP. No concern for transformation. No indication for treatment at this time. One long sinus infection this spring - reviewed early indications for ABX therapy with CLL - will check quantitative immunoglobulins at her next visit. We did review potential for care closer to home with Dr. Fischer going to [facility] - however at this time she would prefer to stay with us - would reconsider should she need therapy in the future. Plan: We will happily continue to monitor in hematology clinic. Reviewed CLL and indications for treatment. Carol will return to hematology in 6 months. she will call if there are any problems before then. documented in this encounter Plan of Treatment Upcoming Encounters Date Type Specialty Care Team Description 02/11/2022 Scheduled View Only Hematology and Ángel Fischer Oncology [facility] ONCOLOGY [place], [place] [address] (Wo rk) 02/11/2022 TH Visit (TeleHealth) Hematology Ángel Kimbrough Oncology [facility] ONCOLOGY [place], [place] [address] (Wo rk) 02/11/2022 Infusion Hematology and Oncology 02/11/2022 Office Visit Hematology and Jazzy Armendariz R D [facility] HEMATOLOGY AND ONCOLOGY [place], [place] [address] (Wo rk) 02/22/2022 TH Visit (TeleHealth) Hematology and Yaquelin Celis Oncology E, [facility] HEMATOLOGY AND ONCOLOGY [place], [place] [address] (Wo rk) 02/25/2022 Office Visit Hematology Ángel Kimbrough Oncology [facility] DR UMANA [place], [place] [address] (Wo rk) 02/25/2022 Infusion Hematology and Oncology 03/10/2022 Scheduled View Only Obstetrics and Nurse, Julian COLEMAN, a and p mechanic 03/10/2022 Office Visit Obstetrics and Shazia Whitley Gynecology [facility] UROGYNECOLOGY [place], [place] [address] (Wo rk) 03/11/2022 Office Visit Ángel Hill MD [facility] [place] [address] Oncology Alyssa Joseph APRN [address] [place] [address] DR MEDICAL ONCOLOGY [place], [place] [id number] 03/11/2022 Infusion Hematology and Oncology 03/25/2022 Office Visit Hematology and Alyssa Joseph, Oncology [address] MEDICAL ONCOLOGY [place], [place] [address] (Wo rk) 03/25/2022 Infusion Hematology and Oncology 03/31/2022 Office Visit Hematology and Alan Livingston M D [facility] DR HEMATOLOGY/[place] [address] [facility] [address] 04/08/2022 Office Visit Hematology and Ángel Fischer MD [facility] [place] [address] Oncology Alyssa Joseph, [address] MEDICAL ONCOLOGY [place], [place] [id number] 04/08/2022 Infusion Hematology and Oncology documented as of this encounter Procedures Procedure Name Priority Date/Time Associated Comments Diagnosis SCAN, PERIPHERAL BLOOD STAT 12/12/2011 2:39 PM Results for this EDT procedure are i n the results section. NUCLEATED RED BLOOD STAT 12/12/2011 2:39 PM Re sults for this CELLS EDT procedure are i n the results section. DIFFERENTIAL, STAT 12/12/2011 2:39 PM Results for this AUTOMATED EDT procedure are i n the results section. CBC (WITH DIFF) STAT 12/12/2011 2:39 PM Chronic lymphoid Re sults for this EDT leukemia (without procedure are in mention of the results remission) section. LACTATE DEHYDROGENASE STAT 12/12/2011 2:39 PM Chronic lymph oid Results for this EDT leukemia (without procedure are in mention of the results remission) section. COMPREHENSIVE STAT 12/12/2011 2:39 PM Chronic lymphoid Resu lts for this METABOLIC PANEL EDT leukemia (without procedu re are in (NON-FASTING) mention of the results remission) section. documented in this encounter Results (ABNORMAL) Immunoglobulins, Quantitative (06/11/2012 12:12 PM EST) [...] Livingston MD CHEMISTRY ORDERABLES Performing Organization Address City/[facility]/ZIP [facility] Phon e Number [address] CERNER MILLENNIUM (ABNORMAL) Lactate Dehydrogenase (06/11/2012 12:12 PM EST) athologist Signature LDH 226 (H) 110 - 220 CERNER unit/L MILLENNIUM Specimen Anatomical Collection Method Collection Time Receive d Time (Source) Location / / Volume Laterality Blood specimen 06/11/2012 12:12 3 (specimen) PM EST 12:20 PM EST Resulting Agency Comment Spec In Lab Alan Livingston MD CHEMISTRY ORDERABLES Performing Organization Address City/[facility] [place] [address] CERNER MILLENNIUM (ABNORMAL) Comprehensive [...] intervals supplied above were not validated at [facility]. Results from pediatri c [...] Organization Address City/State/ZIP Code Phon e Number [place] [phone] [address]OS[address] CERNER MILLENNIUM (ABNORMAL) CBC [...] UM MCH 30.6 26.6 - 32.2 pg YANELIS MILLENNI UM MCHC 32.9 32.0 - 36.5 gm/dL YANELIS MILLE NNIUM Platelets 203 145 - 370 x10(3)/mcL YANELIS [place] LLENNIUM RDWSD 47.2 (H) 35.0 - 46.0 fL YANELIS MIRZAENNI UM RDWCV 13.8 10.9 - 14.4 % YANELIS MIRZAENNIU M MPV 11.6 9.0 - 12.0 fL YANELIS MIRZAENNIU M Specimen Anatomical Collection Method Collection Time Receive d Time (Source) Location / / Volume Laterality Blood specimen 06/11/2012 12:12 3 (specimen) PM EST 12:20 PM EST Resulting Agency Comment Spec In Lab Alan Livingston MD HEMATOLOGY ORDERABLES Performing Organization Address City/State/[place] [address] YANELIS MIRZAENNIUM (ABNORMAL) DIFFERENTIAL, AUTOMATED (12/12/2011 2:39 PM EDT) [facility] gist Method Time Signature Neutrophils % 7.4 (L) 34.0 - CERNER 71.0 % MILLENNIUM Neutr Abs (ANC) 4.76 1.50 - CERNER 6.30 MILLENNIUM x10(3)/mc L Lymphocytes % 90.5 (H) 19.0 - CERNER 53.0 % MILLENNIUM Lymphocytes Abs 58.7 (H) 1.0 - 3.6 CERNER x10(3)/mc MILLENNIUM L Monocytes % 1.4 (L) 4.0 - CERNER 13.0 % MILLENNIUM Monocyte Abs 0.9 0.2 - 1.0 CERNER x10(3)/mc MILLENNIUM L Eosinophils % 0.4 0.0 - 7.0 CERNER % MILLENNIUM Eosinophils Abs 0.2 0.0 - 0.5 CERNER x10(3)/mc MILLENNIUM L Basophils % 0.2 0.0 - 2.0 CERNER % MILLENNIUM Basophils Abs 0.2 0.0 - 0.2 CERNER x10(3)/mc MILLENNIUM L Immature Gran % 0.10 0.00 - CERNER 0.66 % MILLENNIUM Comment: Immature granulocytes(IG's)percentage an d absolute count will include metamyelocytes, myelocytes, and promyelo cytes. Blood smears from CBCs yielding IG's will be scanned manually for concor dance. If this scan disagrees with the automated IG or if promyelocytes are not ed, a manual differential will be performed. Claudia Gran Abs 0.05 0.00 - 0.05 x10(3)/mcL CER NER MILLENNIUM Specimen Anatomical Collection Method Collection Time Receive d Time (Source) Location / / Volume Laterality Blood specimen 12/12/2011 2:39 PM 012 2:43 (specimen) EDT PM EDT Alan Livingston MD HEMATOLOGY ORDERABLES Performing Organization Address City/[facility] Code Phon e Number [address] CERNER MILLENNIUM NUCLEATED RED BLOOD CELLS (12/12/2011 2:39 PM EDT) P athologist Signature nRBC % Auto 0.0 0.0 - 0.2 CERNER % MILLENNIUM nRBC Abs Auto 0.000 0.000 - CERNER 0.012 MILLENNIUM x10(3)/mcL Specimen Anatomical Collection Method Collection Time Receive d Time (Source) Location / / Volume Laterality Blood specimen 12/12/2011 2:39 PM 012 2:43 (specimen) EDT PM EDT Resulting Agency Comment Spec In Lab Alan Livingston MD HEMATOLOGY ORDERABLES Performing Organization Address City/[facility]/ZIP Code Phon e Number [address] CERNER MILLENNIUM SCAN, PERIPHERAL BLOOD (12/12/2011 2:39 PM EDT) Analysis Performed At Patho logist Time Signature Plat Estimate Normal CERNER MILLENNIUM RBC Morphology Normal CERNER MILLENNIUM Smudge Cells Present CERNER MILLENNIUM Specimen Anatomical Collection Method Collection Time Receive d Time (Source) Location / / Volume Laterality Blood specimen 12/12/2011 2:39 PM 012 2:43 (specimen) EDT PM EDT Resulting Agency Comment Spec In Lab Alan Livingston MD HEMATOLOGY ORDERABLES Performing Organization Address City/[facility]/[place] [address] CERNER MILLENNIUM (ABNORMAL) Lactate Dehydrogenase (12/12/2011 2:39 PM EDT) athologist Signature LDH 229 (H) 110 - 220 CERNER unit/L MILLENNIUM Specimen Anatomical Collection Method Collection Time Receive d Time (Source) Location / / Volume Laterality Blood specimen 12/12/2011 2:39 PM 012 2:43 (specimen) EDT PM EDT Resulting Agency Comment Spec In Lab Alan Livingston MD CHEMISTRY ORDERABLES Performing Organization Address City/State/ZIP Code Phon e Number [address] CERNER MILLENNIUM Comprehensive metabolic panel (non-fasting) (12/12/2011 2:39 PM EDT) athologist Signature Glucose Lvl 98 60 - 199 CERNER mg/dL MILLENNIUM Comment: Diabetes: >=200 mg/dL plus symp toms BUN 14 8 - 18 mg/dL CERNER MILLENNIUM Creatinine 0.77 0.70 - 1.20 mg/dL CERNER MILL ENNIUM Comment: Please note that the pediatric reference intervals supplied above were not validated at [facility]. Results from pediatri c [...] if there are any qu estions. Chloride 106 98 - 107 mmol/L CERNER MILLENN IUM CO2 30 22 - 31 mmol/L CERNER MILLENNI UM Anion Gap 6 5 - 15 mmol/L CERNER MILLENNIU M Calcium 8.8 8.5 - 10.5 mg/dL CERNER JAVI NIUM Total Protein 6.4 6.4 - 8.3 gm/dL CERNER MIL LENNIUM Albumin 4.3 3.2 - 5.2 gm/dL CERNER MILLENN IUM AST 27 0 - 30 unit/L CERNER MILLENNIU M ALT 18 0 - 30 unit/L CERNER MILLENNIU M Alk Phos 65 40 - 104 unit/L CERNER MILLENN IUM [...] Location / / Volume Laterality Blood specimen 12/12/2011 2:39 PM 012 2:43 (specimen) EDT PM EDT Resulting Agency Comment Spec In Lab Alan Livingston MD CHEMISTRY ORDERABLES Performing Organization Address City/State/[place] [address] CERNER MILLENNIUM (ABNORMAL) CBC (with Diff) (12/12/2011 2:39 PM EDT) P athologist Signature WBC 64.9 4.0 - 10.0 CERNER (Critical) x10(3)/mcL MILLENNIUM Comment: Matches Previous Results This result has been called to NOT LOYD D by BOB ORTEGA on 12.12.11 at 15:51, and has not been read back (MATCHES PREVIOUS). RBC 4.57 3.93 - 5.22 x10(6)/mcL CERNER MILLENNIUM Hemoglobin 14.1 11.2 - 15.7 gm/dL CERNER MILL ENNIUM Hematocrit 41.6 34.0 - 45.0 % CERNER MILLENNI UM MCV 91.0 79.0 - 94.0 fL CERNER MILLENNI UM MCH 30.9 26.6 - 32.2 pg CERNER MILLENNI UM MCHC 33.9 32.0 - 36.5 gm/dL CERNER MILLE NNIUM Platelets 164 145 - 370 x10(3)/mcL CERNER [place] LLENNIUM RDWSD 44.8 35.0 - 46.0 fL CERNER MILLENNI UM RDWCV 13.6 10.9 - 14.4 % CERNER MILLENNIU M MPV 11.7 9.0 - 12.0 fL CERNER MILLENNIU M Specimen Anatomical Collection Method Collection Time Receive d Time (Source) Location / / Volume Laterality Blood specimen 12/12/2011 2:39 PM 012 2:43 (specimen) EDT PM EDT Resulting Agency Comment Spec In Lab Alan Livingston MD HEMATOLOGY ORDERABLES Performing Organization Address City/State/ZIP Code Phon e Number [place] [phone] HOSPITAL LAB[address]ORY Drive [facility] documented in this encounter Visit Diagnoses Diagnosis Chronic lymphoid leukemia (without menti on of remission) - Primary Chronic lymphoid leukemia, without menti on of having achieved remission documented in this encounter Care Teams Floor Hand Relationship Specialty Start Date End Date Berkley Madrigal MD PCP - General 04/13/10 02/15/18 AYLEEN D [address] [place] [address] documented as of this encounter
--- OUTSIDE RECORDS SUMMARY | 2022-02-11 01:14 | XMS_ITS | Encounter Summary ---
:1950 Author Organization [place] [address] Care Team Providers Name Role Phone Berkley Madrigal MD Primary Care Provider Encounter Details Date Type Department Care Team Description 12/12/2011 Hospital Encounter Laboratory CLINIC, DR [facility] Alan Livingston MD [facility] HEMATOLOGY/[place] [address] [place] [address] Social History Tobacco Use Types Packs/Day [...] Sig Dispensed Refills Start Date End Date multivitamin capsule Take 1 capsule by 0 [...] by mouth 0 10/08/2012 mg capsule daily. [place]-3 Fatty Acids (FISH Take 500 mg by [...] ACID (VITAMIN C 0 05/24/2010 10/08/2012 ORAL) glipiZIDE (GLUCOTROL) 10 0 05/24/2010 06/11/2012 mg tablet documented as of this encounter Plan of Treatment Upcoming Encounters Date Type Specialty Care Team Description 02/11/2022 Scheduled View Only Hematology and Ángel Fischer, Oncology [facility] ONCOLOGY [place], [place] [address] (Wo rk) 02/11/2022 TH Visit (TeleHealth) Hematology Ángel Kimbrough Oncology [facility] ONCOLOGY [place], [place] [address] (Wo rk) 02/11/2022 Infusion Hematology and Oncology 02/11/2022 Office Visit Hematology and Jazzy Armendariz R D [facility] HEMATOLOGY AND ONCOLOGY [place], [place] [address] (Wo rk) 02/22/2022 TH Visit (TeleHealth) Hematology and Yaquelin Celis E, [facility] HEMATOLOGY AND ONCOLOGY [place], [place] [address] (Wo rk) 02/25/2022 Office Visit Hematology and Ángel Fischer Oncology [facility] ONCOLOGY [place], [place] [address] (Wo rk) 02/25/2022 Infusion Hematology and Oncology 03/10/2022 Scheduled View Only Obstetrics and Nurse, Julian COLEMAN, clinical nursing intern 03/10/2022 Office Visit Obstetrics and Shazia Whitley, Gynecology [facility] UROGYNECOLOGY [place], [place] [address] (Wo rk) 03/11/2022 Office Visit Hematology Ángel Kimbrough MD [facility] [place] [address] Oncology Alyssa Joseph, [address] [place] [address] 03/11/2022 Infusion Hematology and Oncology 03/25/2022 Office Visit Hematology and Alyssa Joseph, Oncology [address] MEDICAL ONCOLOGY [place], [place] [phone] (Wo rk) 03/25/2022 Infusion Hematology and Oncology 03/31/2022 Office Visit Hematology and Alan Livingston M D [facility] DR HEMATOLOGY/[place] [address] Oncology Nilam So, [facility] DR HEMATOLOGY/[place] [address] 04/08/2022 Office Visit Hematology and Ángel Fischer MD [facility] [place] [address] Oncology Alyssa Joseph[address] MEDICAL ONCOLOGY [place], [place] [id number] 04/08/2022 Infusion Hematology and Oncology documented as of this encounter Visit Diagnoses Not on filedocumented in this encounter Care Teams Director Of Sleep Relationship Specialty Start Date End Date Berkley Madrigal MD PCP - General 04/13/10 02/15/18 AYLEEN Bray [address] [place], [place] [phone] documented as of this encounter
--- OUTSIDE RECORDS SUMMARY | 2022-02-11 01:14 | XMS_ITS | Encounter Summary ---
:1950 Author Organization [facility] Address [facility] [place] [address] Care Team Providers Name Role Phone Berkley Madrigal MD Primary Care Provider Reason for Visit Reason Comments Post Op patient presents for postop erative evaluation after treatment of retinal tear Eye Problem shared pt with dr. walker Encounter Details Date Type Department Care Team Description 09/07/2012 Follow-Up Ophthalmology at [facility] Pavan Mancera Horseshoe retinal tear, righ t eye-stable status post treatment. (Primary Dx); [facility] MD Tori macular pucker right eye. Mild only. Fo llow closely.; Drive [facility] CLL (chronic lymphocytic leukemia)-no op hthalmic manifestations; [place] [address] OPHTHALMOLOGY DEPT. Diabetes mellitus without ophthalmic man ifestations. [phone] [place], [place] [address] (Wo rk) Social History Tobacco [...] encounter Progress Notes Pavan Coffey MD - 09/09/2012 2:50 PM EDT September 09, 2012 Wally Walker O.D. [facility] [address] [place] [id number] RE: Carol Keller A#: [id number] Walker: I had the pleasure of seeing your patient, Carol Keller, for followup evaluation on 09/07/2012. As you know, she is status post retinopexy of a retinal tear in the right eye. Fortunately, she has not noticed any new symptoms and her floaters are abating. She was also found to have an early epiretinal membrane in the right eye as well. Carol presented today measuring 20/30 in the right eye at distance and 20/25 at near. In the left eye, she measured 20/20 at both distance and at near. Intraocular pressures were 13 mm, right eye and 15 mm, left eye. Slit-lamp examination revealed dense vitreous floaters only. The anterior segment anatomy in each eye was deep, quiet, and clear. Posterior segment examination of the right eye was notable for a mild epiretinal membrane in the right eye, but no cystic changes were evident. No vitreomacular traction syndrome was seen. The retinal tear at 12 o'clock was very well treated. No new holes, tears, traction, or other changes are defined. The preretinal hemorrhage inferiorly has almost completely abated. Impression: 1. Status post treatment for retinal tear at 12 o'clock, right eye (stable). No new pathology. 2. Mild epiretinal membrane, right eye. I reviewed with Carol all of my findings and concerns today. I have recommended that she return to see you some time in the next six months for continuity of care. I have asked her to contact either one of us immediately for any flashes, floaters, or visual field changes in either eye. Provided that you are in agreement, I would like to see the patient in about 10 to 12 months or sooner if the epiretinal membrane becomes significant or if other new symptoms or problems develop. Thank you kindly for asking me to provide consultation for this very nice patient. I advised the patient to contact your office or to see you for continuity of care. Your office staff might consider sending her a reminder as well. Respectfully, Pavan Coffey M.D. documented in this encounter Plan of Treatment Upcoming Encounters Date Type Specialty Care Team Description 02/11/2022 Scheduled View Only Hematology and Ángel Fischer Oncology [facility] [address] [place], [place] [address] (Wo kash) 02/11/2022 TH Visit (TeleHealth) Ángel Hill Oncology [facility] [address] [place], [place] [address] (Wo rk) 02/11/2022 Infusion Hematology and Oncology 02/11/2022 Office Visit Hematology and Jazzy Armendariz R D Oncology [facility] HEMATOLOGY AND ONCOLOGY [place], [place] [address] (Wo rk) 02/22/2022 TH Visit (TeleHealth) Hematology and Yaquelin Celis Oncology E, [facility] HEMATOLOGY AND ONCOLOGY [place], [place] [address] (Wo rk) 02/25/2022 Office Visit Hematology Ángel Kimbrough Oncology [facility] ONCOLOGY [place], [place] [address] (Wo rk) 02/25/2022 Infusion Hematology and Oncology 03/10/2022 Scheduled View Only Obstetrics and Nurse, Julian COLEMAN, 3rd mate 03/10/2022 Office Visit Obstetrics and Shazia Whitley, Gynecology [facility] UROGYNECOLOGY [place], [place] [address] (Wo rk) 03/11/2022 Office Visit Hematology and Ángel Fischer MD [facility] [place] [address] Oncology Alyssa Joseph[address] ONCOLOGY [place], [place] [id number] 03/11/2022 Infusion Hematology and Oncology 03/25/2022 Office Visit Hematology and Alyssa Joseph Oncology [address] MEDICAL ONCOLOGY [place], [place] [id number] (Wo rk) 03/25/2022 Infusion Hematology and Oncology 03/31/2022 Office Visit Hematology and Alan Livingston M D [facility] HEMATOLOGY/[place] [address] [facility]cology [facility] [address] 04/08/2022 Office Visit Hematology and Ángel Fischer MD [facility] [place] [address] Oncology Alyssa Joseph, [employer] [address] [place] [address] [place] [address] 04/08/2022 Infusion Hematology and Oncology documented as of this encounter Visit Diagnoses Diagnosis Horseshoe retinal tear, right eye-stable status post treatment. - Primary Horseshoe tear of retina without detachm ent macular pucker right eye. Mild only. Fo llow closely. Macular puckering of retina CLL (chronic lymphocytic leukemia)-no op hthalmic manifestations Chronic lymphoid leukemia, without menti on of having achieved remission Diabetes mellitus without ophthalmic man ifestations. Type II or unspecified type diabetes omer litus without mention of complication, not stated as uncontrolled documented in this encounter Care Teams Treating Engineer Relationship Specialty Start Date End Date Berkley Madrigal MD PCP - General 04/13/10 02/15/18 AYLEEN Bray [address] [place], [place] [id number] documented as of this encounter
--- OUTSIDE RECORDS SUMMARY | 2022-02-11 01:14 | XMS_ITS | Encounter Summary ---
:1950 Author Organization [facility] Address [facility] [place] [address] Care Team Providers Name Role Phone Berkley Madrigal MD Primary Care Provider Reason for Visit Reason Comments Eye Problem The patient has been sent fo r consultation regarding a possible tear or detachment. CBC M.DCollin Eye Problem sent by dr. sosa Encounter Details Date Type Department Care Team Description 08/14/2012 Office Visit Ophthalmology at [facility] Pavan Mancera Horseshoe retinal tear, righ t eye (Primary Dx); [facility] MD Tori Macular [place], [place] [address] OPHTHALMOLOGY DE PT. [place], [place] [address] (Wo rk) Social History Tobacco [...] encounter Progress Notes Pavan Coffey MD - 08/19/2012 9:30 PM EDT August 20, 2012 Wally Sosa O.D. Research Methods Instructor [facility] [address] [place] [address] RE: Carol Keller A#: [id number] Sosa: I had the pleasure of seeing your patient, Carol Keller, for urgent consultation on 08/14/2012. I am expediting to you this brief communication to let you know that she was seen, evaluated, and treated on this day. In summary, she has a superior retinal tear, which was difficult to see by virtue of her blonde fundus pattern. Prompt laser photocoagulation was undertaken without difficulty. Fortunately, no other holes, tears, or tractional features were ascertained. I have asked her to return here in a week. Also very importantly, combined clinical examination and OCT scanning reveals a mild epiretinal membrane with some outer retinal traction in the central fovea. This also of course was to be watched over time. Carol will be returning to see me next week. I anticipate following her over the next month or two. I will keep you informed regarding her progress and we will also be sure that she returns to see you for continuity of care. Hopefully, we can arrange for a comanagement and periodic evaluation for her macular pucker over time. Thank you kindly for asking me to provide urgent care for this nice patient. Respectfully, Pavan Coffey M.D. documented in this encounter Plan of Treatment Upcoming Encounters Date Type Specialty Care Team Description 02/11/2022 Scheduled View Only Hematology Ángel Kimbrough, Oncology [facility] ONCOLOGY [place], [place] [address] (Wo rk) 02/11/2022 TH Visit (TeleHealth) Hematology Ángel Kimbrough Oncology [facility] ONCOLOGY [place], [place] [address] (Wo rk) 02/11/2022 Infusion Hematology and Oncology 02/11/2022 Office Visit Hematology and Jazzy Armendariz, R D Oncology [facility] [address] HEMATOLOGY AND ONCOLOGY [place], [place] [address] (Wo rk) 02/22/2022 TH Visit (TeleHealth) Hematology and Yaquelin Celis Oncology E, [facility] HEMATOLOGY AND ONCOLOGY [place], [place] [address] (Wo rk) 02/25/2022 Office Visit Hematology Ángel Kimbrough Oncology [facility] ONCOLOGY [place], [place] [address] (Wo rk) 02/25/2022 Infusion Hematology and Oncology 03/10/2022 Scheduled View Only Obstetrics and Nurse, Julian COLEMAN, pressroom foreman 03/10/2022 Office Visit Obstetrics and Shazia Whitley Gynecology [facility] [place], [place] [address] (Wo rk) 03/11/2022 Office Visit Hematology and Ágnel Fischer MD [facility] [place] [address] Oncology Alyss[address] Joseph[address] MEDICAL ONCOLOGY [place], [place] [id number] 03/11/2022 Infusion Hematology and Oncology 03/25/2022 Office Visit Hematology and Alyssa Joseph, Oncology [address] MEDICAL ONCOLOGY [place], [place] [id number] (Wo rk) 03/25/2022 Infusion Hematology and Oncology 03/31/2022 Office Visit Hematology and Alan Livingston M D [facility] DR HEMATOLOGY/[place] [address] [facility] [address] 04/08/2022 Office Visit Hematology and Ángel Fischer MD [facility] [place] [address] Oncology Alyss[address] ONCOLOGY [place], [place] [id number] 04/08/2022 Infusion Hematology and Oncology documented as of this encounter Procedures Procedure Name Priority Date/Time Associated Diagnosis Comme nts OCT RETINA - OD - Routine 08/19/2012 9:29 PM EDT Macular pucke r, right RIGHT EYE eye documented in this encounter Results OCT [id number] EYE (08/19/2012 9:29 PM EDT) Anatomical Region Laterality Modality Other Specimen (Source) Anatomical Location Collection Method / Collectio n Time Received Time / Laterality Volume Pavan Coffey MD OPHTHALMOLOGY SERVICES ORDER MELYSSA documented in this encounter Visit Diagnoses Diagnosis Horseshoe retinal tear, right eye - Prim alyson Horseshoe tear of retina without detachm ent Macular pucker, right eye Macular puckering of retina documented in this encounter Care Teams Truss Driver Helper Relationship Specialty Start Date End Date Berkley Madrigal MD PCP - General 04/13/10 02/15/18 AYLEEN Bray [address] [place] [address] documented as of this encounter
--- OUTSIDE RECORDS SUMMARY | 2022-02-11 01:14 | XMS_ITS | Encounter Summary ---
:1950 Author Organization [facility] [place] [address] Care Team Providers Name Role Phone Berkley Madrigal MD Primary Care Provider Reason for Visit Reason Comments Follow-up Encounter Details Date Type Department Care Team Description 12/06/2010 Hospital Encounter Hematology and Alan Livingston, CLL ( [place] [facility] [place] [facility] [place]) [facility] [address] [place] HEMATOLOGY/ONCOL [id number] OGY DEPT. [phone] [place] [address] Social History Tobacco Use Types Packs/Day Years [...] Sign Reading Time Taken Comments Blood Pressure 119/82 12/06/2010 8:19 AM EDT Pulse 71 12/06/2010 8:19 AM EDT Temperature 36.5 ??C (97.7 ??F) 12/06/2010 8:19 AM EDT Respiratory Rate 16 12/06/2010 8:19 AM EDT Oxygen Saturation 98% 12/06/2010 8:19 AM EDT Inhaled Oxygen Concentration - - Weight 73.6 kg (162 lb 4.1 oz) 12/06/2010 8:19 AM EDT Height 164 cm (5' 4.57) 12/06/2010 8:19 AM EDT Body Mass Index 27.36 12/06/2010 8:19 AM EDT documented in this encounter Medications at Time of Discharge Medication Sig Dispensed Refills Start Date End Date CIS Free Text Med - 0 05/24/201010/08 Aspirin CIS Free Text Med - 0 05/24/201010/08 Multiple Vitamin Glucosamine Sulfate 500 mg 0 1 09/02/2016 Tab IMIPRAMINE HCL ORAL 10M Tablet(s), 0 05/24/19 11 10/08/2012 PO, Three times daily ERGOCALCIFEROL, VITAMIN 0 05/24/2010 0 10/08/2012 D2, (VITAMIN D ORAL) ASCORBIC ACID (VITAMIN C 0 05/24/2010 10/08/2012 ORAL) glipiZIDE (GLUCOTROL) 10 0 05/24/2010 06/11/2012 mg tablet documented as of this encounter Progress Notes Alan Livingston MD - 12/06/2010 8:38 AM EDT Subjective: Patient ID: Carol Keller is a 60 y.o. female. 1. CLL: dx 12/2008- P-53, CD38 and zap -70 negative. Cytogenetics 13 deletion (favorable prognosis) 2. SVT - s/p cardiac ablation - 1999 3. MYRON/cystocele/ rectocele repair. 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 ACL repair - 1993 6. Left heal spur removal - 1991 7. GERD 8. DM on glipizide HPI The patient returns to the hematology clinic. She was diagnosed with CLL in 12/28. She has never required therapy. Since last seen she has done well. She continues to work full-time. She has been active working on her house. She has no systemic symptoms. She's not noted any lymph node margins and has no abdominal fullness. She did get one bruise on her left arm after swatting a deer fly that was biting her. No other bruising Current outpatient prescriptions:CIS Free Text Med - Aspirin, , Disp: , Rfl: ; CIS Free Text Med - Multiple Vitamin, , Disp: , Rfl: ; Glucosamine Sulfate 500 mg Tab, , Disp: , Rfl: ; IMIPRAMINE HCL ORAL, 10M Tablet(s), PO, Three times daily, Disp: , Rfl: ; omeprazole (PRILOSEC) 20 mg capsule, , Disp: , Rfl: ; ERGOCALCIFEROL, VITAMIN D2, (VITAMIN D ORAL), , Disp: , Rfl: ; cycloSPORINE (RESTASIS) 0.05 % ophthalmic emulsion, , Disp: , Rfl: glipiZIDE (GLUCOTROL) 10 mg tablet, , Disp: , Rfl: ; ASCORBIC ACID (VITAMIN C ORAL), , Disp: , Rfl: Review of Systems Constitutional: Negative for fever, diaphoresis and fatigue. HENT: Negative for nosebleeds. Respiratory: Negative for cough and shortness of breath. Cardiovascular: Negative for chest pain and palpitations. Gastrointestinal: Negative for abdominal pain and blood in stool. Skin: Negative for rash. Hematological: Negative for adenopathy. Bruises/bleeds easily. All other systems reviewed and are negative. Patient Vitals in the past 24 hrs: BP Temp Pulse Resp SpO2 Height Weight 12/06/10 0819 119/82 mmHg 36.5 ??C (97.7 ??F) 71 16 98 % 1.64 m (5' 4.57) 73.6 kg (162 lb 4.1 oz) Objective: Physical Exam Constitutional: She is oriented to person, place, and time. No distress. HENT: Mouth/Throat: No oropharyngeal exudate. Eyes: No scleral icterus. Cardiovascular: Normal rate, regular rhythm and normal heart sounds. Pulmonary/Chest: Effort normal and breath sounds normal. Abdominal: Soft. Bowel sounds are normal. There is no splenomegaly. No tenderness. Musculoskeletal: She exhibits no edema. Lymphadenopathy: She has no cervical adenopathy. She has no axillary adenopathy. Right: No inguinal adenopathy present. Left: No inguinal adenopathy present. Neurological: She is alert and oriented to person, place, and time. Skin: No rash noted. Data: White count 43.4, hemoglobin 14, mectgouag257( all stable) Recent Results (from the past 72 hour(s)) COMPREHENSIVE METABOLIC PANEL (NON-FASTING) Component Value Range ??? Glucose Lvl 94 60 - 199 (mg/dL) ??? BUN 18 8 - 18 (mg/dL) ??? Creatinine 0.79 0.70 - 1.20 (mg/dL) ??? Sodium 139 135 - 145 (mmol/L) ??? Potassium 4.2 3.5 - 5.0 (mmol/L) ??? Chloride 104 98 - 107 (mmol/L) ??? CO2 27 22 - 31 (mmol/L) ??? Anion Gap 8 5 - 15 (mmol/L) ??? Calcium 9.0 8.5 - 10.5 (mg/dL) ??? Total Protein 6.5 6.4 - 8.3 (gm/dL) ??? Albumin 4.4 3.2 - 5.2 (gm/dL) ??? AST 33 (*) 0 - 30 (unit/L) ??? ALT 29 0 - 30 (unit/L) ??? Alk Phos 61 40 - 104 (unit/L) ??? Total Bilirubin 0.4 0.2 - 1.3 (mg/dL) ??? Bili, Direct 0.1 0.0 - 0.3 (mg/dL) ? ? Estimated GFR >60 >=60 Assessment and Plan: 60-year-old female with chronic lymphocytic leukemia. Her prognostic markers are all favorable. Her last 2 years of observation she has remained stable with only a slight increase in her white count. She has not yet reached the doubling time. She remains asymptomatic with no symptoms from this CLL. I think continued observation without treatment is appropriate. I think we can decrease the frequency of her operation done to once per year. I will have her to get her blood counts checked locally with her primary care doctor in February. We will see her in August. If she has more problems I would be happy to see her sooner. documented in this encounter Plan of Treatment Upcoming Encounters Date Type Specialty Care Team Description 02/11/2022 Scheduled View Only Hematology Ángel Kimbrough Oncology [facility] ONCOLOGY [place], [place] [address] (Shana hewitt) 02/11/2022 TH Visit (TeleHealth) Ángel Hill Oncology [facility] DR UMANA [place], [place] [address] (Wo rk) 02/11/2022 Infusion Hematology and Oncology 02/11/2022 Office Visit Hematology and Jazzy Armendariz R D Oncology [facility] HEMATOLOGY AND ONCOLOGY [place], [place] [address] (Shana rk) 02/22/2022 TH Visit (TeleHealth) Hematology and Yaquelin Celis Oncology E, [facility] HEMATOLOGY [place]IRK UMANA [place], [place] [address] (Wo rk) 02/25/2022 Office Visit Ángel Hill Oncology [facility] DR [place]Y [place], [place] [address] (Shana hewitt) 02/25/2022 Infusion Hematology and Oncology 03/10/2022 Scheduled View Only Obstetrics and Nurse, Julian OCLEMAN, shaft headman 03/10/2022 Office Visit Obstetrics and Shazia Whitley, Gynecology [facility] UROGYNECOLOGY [place], [place] [address] (Wo rk) 03/11/2022 Office Visit Hematology and Ángel Fischer MD [facility] [place] [address] On[address] Joseph[address] MEDICAL ONCOLOGY [place], [place] [id number] 03/11/2022 Infusion Hematology and Oncology 03/25/2022 Office Visit Hematology and Alyssa Joseph, Oncology [address] [place] [address] (Wo rk) 03/25/2022 Infusion Hematology and Oncology 03/31/2022 Office Visit Hematology and Alan Livingston M D [facility] DR HEMATOLOGY/[place] [address] [facility] [address] 04/08/2022 Office Visit Hematology and Ángel Fischer MD [facility] [place] [address] Oncology [address] ONCOLOGY [place], [place] [id number] 04/08/2022 Infusion Hematology and Oncology Scheduled Orders Name Type Priority Associated Diagnoses Order S chedule CBC (with Diff) Lab STAT CLL (chronic lymphocytic Expected: 09/05/2011, leukemia) Expires: 2011 Comprehensive metabolic Lab STAT CLL (chronic lymp hocytic Expected: 09/05/2011, panel (CMP) leukemia) Expires: 2011 documented as of this encounter Procedures Procedure Name Priority Date/Time Associated Comments Diagnosis SCAN, PERIPHERAL BLOOD STAT 12/06/2010 8:12 AM Results for this EDT procedure are i n the results section. NUCLEATED RED BLOOD STAT 12/06/2010 8:12 AM Re sults for this CELLS EDT procedure are i n the results section. DIFFERENTIAL, STAT 12/06/2010 8:12 AM Results for this AUTOMATED EDT procedure are i n the results section. CBC (WITH DIFF) STAT 12/06/2010 8:12 AM CLL (chronic Result s for this EDT lymphocytic procedure are i n leukemia) the results section. COMPREHENSIVE STAT 12/06/2010 8:12 AM CLL (chronic Results for this METABOLIC PANEL EDT lymphocytic procedure ar e in (NON-FASTING) leukemia) the results section. documented in this encounter Results (ABNORMAL) REFLEX LAB-A-DIFF (12/06/2010 8:12 AM EDT) [facility] gist Method Time Signature Neutrophils % 9.8 (L) 34.0 - CERNER 71.0 % MILLENNIUM Neutr Abs (ANC) 4.30 1.50 - CERNER 6.30 MILLENNIUM x10(3)/mc L Lymphocytes % 87.1 (H) 19.0 - CERNER 53.0 % MILLENNIUM Lymphocytes Abs 37.8 (H) 1.0 - 3.6 CERNER x10(3)/mc MILLENNIUM L Monocytes % 2.0 (L) 4.0 - CERNER 13.0 % MILLENNIUM Monocyte Abs 0.9 0.2 - 1.0 CERNER x10(3)/mc MILLENNIUM L Eosinophils % 0.6 0.0 - 7.0 CERNER % MILLENNIUM Eosinophils Abs 0.3 0.0 - 0.5 CERNER x10(3)/mc MILLENNIUM L Basophils % 0.3 0.0 - 2.0 CERNER % MILLENNIUM Basophils Abs 0.1 0.0 - 0.2 CERNER x10(3)/mc MILLENNIUM L Immature Gran % 0.20 0.00 - CERNER 0.66 % MILLENNIUM Comment: Immature granulocytes(IG's)percentage an d absolute count will include metamyelocytes, myelocytes, and promyelo cytes. Blood smears from CBCs yielding IG's will be scanned manually for concor dance. If this scan disagrees with the automated IG or if promyelocytes are not ed, a manual differential will be performed. Claudia Gran Abs 0.07 (H) 0.00 - 0.05 x10(3)/mcL CER NER MILLENNIUM Specimen Anatomical Collection Method Collection Time Receive d Time (Source) Location / / Volume Laterality Blood specimen 12/06/2010 8:12 AM 011 8:15 (specimen) EDT AM EDT Alan Livingston MD HEMATOLOGY ORDERABLES Performing Organization Address City/State/ZIP Code Phon e Number [address] CERNER MILLENNIUM REFLEX LAB-NUCLEATED RED BLOOD CELLS (12/06/2010 8:12 AM EDT) P athologist Signature nRBC % Auto 0.0 0.0 - 0.2 CERNER % MILLENNIUM nRBC Abs Auto 0.000 0.000 - CERNER 0.012 MILLENNIUM x10(3)/mcL Specimen Anatomical Collection Method Collection Time Receive d Time (Source) Location / / Volume Laterality Blood specimen 12/06/2010 8:12 AM 011 8:15 (specimen) EDT AM EDT Alan Livingston MD HEMATOLOGY ORDERABLES Performing Organization Address City/State/ZIP Code Phon e Number [address] CERNER MILLENNIUM REFLEX LAB-SCAN, PERIPHERAL BLOOD (12/06/2010 8:12 AM EDT) Patholo gist Method Time Signature Plat Estimate Normal CERNER MILLENNIUM RBC Morphology Abnormal CERNER MILLENNIUM Comment: Corrected from Normal [NA] on 0 12/06/10 09:26:42 EDT by Anni Muir Cells 6-10 /HPF CERNER MILLENNIUM Smudge Cells Present CERNER MILLENNIUM Specimen Anatomical Collection Method Collection Time Receive d Time (Source) Location / / Volume Laterality Blood specimen 12/06/2010 8:12 AM 011 8:15 (specimen) EDT AM EDT Alan Livingston MD HEMATOLOGY ORDERABLES Performing Organization Address City/State/ZIP Code [place] [address] CERNER MILLENNIUM (ABNORMAL) Comprehensive metabolic panel (CMP) (12/06/2010 8:12 AM EDT) P athologist Signature Glucose Lvl 94 60 - [...] Organization Address City/State/ZIP Code Phon e Number [place] [phone] [facility] CBC (with Diff) (12/06/2010 8:12 AM EDT) P athologist Signature WBC 43.4 4.0 - 10.0 CERNER (Critical) x10(3)/mcL MILLENNIUM Comment: This result has been called to CALLED NC EV TO by DONALD MUIR on; 12.06.10 at 09:23, and has been read back (). RBC 4.56 3.93 - 5.22 x10(6)/mcL CERNER MILLENNIUM Hemoglobin 14.0 11.2 - 15.7 gm/dL YANELIS MILL ENNIUM Hematocrit 40.8 34.0 - 45.0 % CERNER MILLENNI UM MCV 89.5 79.0 - 94.0 fL CERNER MILLENNI UM MCH 30.7 26.6 - 32.2 pg CERNER MILLENNI UM MCHC 34.3 32.0 - 36.5 gm/dL YANELIS MIRZAE NNIUM Platelets 173 145 - 370 x10(3)/mcL YANELIS SD LLENNIUM RDWSD 43.6 35.0 - 46.0 fL KALEENER MILLENNI UM RDWCV 13.4 10.9 - 14.4 % YANELIS MIRZAENNIU M MPV 11.2 9.0 - 12.0 fL YANELIS MIRZAENNIU M Specimen Anatomical Collection Method Collection Time Receive d Time (Source) Location / / Volume Laterality Blood specimen 12/06/2010 8:12 AM 011 8:15 (specimen) EDT AM EDT Alan Livingston MD HEMATOLOGY ORDERABLES Performing Organization Address City/State/[place] [address] YANELIS SALCIDO documented in this encounter Visit Diagnoses Diagnosis CLL (chronic lymphocytic leukemia) Chronic lymphoid leukemia, without menti on of having achieved remission documented in this encounter Care Teams Director Of Safety Relationship Specialty Start Date End Date Berkley Madrigal MD PCP - General 04/13/10 02/15/18 AYLEEN D [address] [place] [address] documented as of this encounter
--- OUTSIDE RECORDS SUMMARY | 2022-02-11 01:14 | XMS_ITS | Encounter Summary ---
:1950 Author Organization [facility] [place] [address] Care Team Providers Name Role Phone Berkley Madrigal MD Primary Care Provider Encounter Details Date Type Department Care Team Description 10/05/2012 Orders Only Hematology and Sai Cartwright V[facility] [place]) [facility] (Pr imary Dx) [place] [address] HEMATOLOGY/ONCOLOG [phone] Y DEPT. [place], [place] [address] Social History Tobacco Use Types [...] Oncology [facility] ONCOLOGY [place], [place] [address] (Wo rk) 02/11/2022 TH Visit (TeleHealth) Ángel Hill Oncology [facility] DR UMANA [place], [place] [address] (Wo rk) 02/11/2022 Infusion Hematology and Oncology 02/11/2022 Office Visit Hematology and Jazzy Armendariz R D Oncology [facility] CESAR HEMATOLOGY AND ONCOLOGY [place], [place] [address] (Wo rk) 02/22/2022 TH Visit (TeleHealth) Hematology and Yaquelin Celis Oncology E, [facility] HEMATOLOGY AND ONCOLOGY [place], [place] [address] (Wo rk) 02/25/2022 Office Visit Ángel Hill Oncology [facility] DR UMANA [place], [place] [address] (Wo rk) 02/25/2022 Infusion Hematology and Oncology 03/10/2022 Scheduled View Only Obstetrics and Nurse, Julian COLEMAN, cabin crew 03/10/2022 Office Visit Obstetrics and Shazia Whitley, Gynecology [facility] UROGYNECOLOGY [place], [place] [address] (Wo rk) 03/11/2022 Office Visit Hematology and Ángel Fischer MD [facility] [place] [address] Oncology [address] ONCOLOGY [place], [place] [phone] 03/11/2022 Infusion Hematology and Oncology 03/25/2022 Office Visit Hematology and Alyssa Joseph, Oncology [address] ONCOLOGY [place], [place] [phone] (Wo rk) 03/25/2022 Infusion Hematology and Oncology 03/31/2022 Office Visit Hematology and Alan Livingston M D [facility] DR HEMATOLOGY/[place] [address] Oncology Nilam So [facility] DR HEMATOLOGY/[place] [address] 04/08/2022 Office Visit Hematology and Ángel Fischer MD [facility] [place] [address] Oncology [address] ONCOLOGY [place], [place] [phone] 04/08/2022 Infusion Hematology and Oncology Scheduled Orders Name Type Priority Associated Diagnoses Order S chedule Miscellaneous Lab request Lab Routine CLL (chronic ly mphocytic Expected: 10/08/2012 leukemia) (Approximate), Expires: 2012 documented as of this encounter Visit Diagnoses Diagnosis CLL (chronic lymphocytic leukemia) - Cordelia watt Chronic lymphoid leukemia, without menti on of having achieved remission documented in this encounter Care Teams Mixer Foam Rubber Relationship Specialty Start Date End Date Berkley Madrigal MD PCP - General 04/13/10 02/15/18 AYLEEN Bray [address] [place] [address] documented as of this encounter
--- OUTSIDE RECORDS SUMMARY | 2022-02-11 01:14 | XMS_ITS | Encounter Summary ---
:1950 Author Organization [facility] [address] Care Team Providers Name Role Phone Berkley Madrigal MD Primary Care Provider Reason for Visit Reason Comments Follow-up Encounter Details Date Type Department Care Team Description 09/12/2011 Follow-Up Hematology and Alan Livingston M D CLL (chronic lymphocytic leukemia) (Prim alyson Dx); Oncology at [facility] Chronic lymphoid leukemia (w ithout mention of remission) [facility] DR Perkins HEMATOLOGY/[place] [address] DEPT. [phone] [place], [place] [address] (Wo rk) Social History Tobacco [...] Sign Reading Time Taken Comments Blood Pressure 126/80 09/12/2011 1:07 PM EDT Pulse 68 09/12/2011 1:07 PM EDT Temperature 36.5 ??C (97.7 ??F) 09/12/2011 1:07 PM EDT Respiratory Rate 18 09/12/2011 1:07 PM EDT Oxygen Saturation 100% 09/12/2011 1:07 PM EDT Inhaled Oxygen Concentration - - Weight 72.2 kg (159 lb 2.8 oz) 09/12/2011 1:07 PM EDT Height 163.6 cm (5' 4.4) 09/12/2011 1:07 PM EDT Body Mass Index 26.98 09/12/2011 1:07 PM EDT documented in this encounter Patient Instructions Patient InstructionsNilam So, ADENIKE - 09/12/2011 1:35 PM EDT Recent Results (from the past 72 hour(s)) CBC (WITH DIFF) Component Value Range ??? WBC 69.3 (*) 4.0 - 10.0 (x10(3)/mcL) ??? RBC 4.87 3.93 - 5.22 (x10(6)/mcL) ??? Hemoglobin 14.9 11.2 - 15.7 (gm/dL) ??? Hematocrit 44.6 34.0 - 45.0 (%) ??? MCV 91.6 79.0 - 94.0 (fL) ??? MCH 30.6 26.6 - 32.2 (pg) ??? MCHC 33.4 32.0 - 36.5 (gm/dL) ??? Platelets 177 145 - 370 (x10(3)/mcL) ??? RDWSD 44.1 35.0 - 46.0 (fL) ??? RDWCV 13.3 10.9 - 14.4 (%) ??? MPV 11.5 9.0 - 12.0 (fL) COMPREHENSIVE METABOLIC PANEL (NON-FASTING) Component Value Range ??? Glucose Lvl 105 60 - 199 (mg/dL) ??? BUN 16 8 - 18 (mg/dL) ??? Creatinine 0.88 0.70 - 1.20 (mg/dL) ??? Sodium 140 135 - 145 (mmol/L) ??? Potassium 4.4 3.5 - 5.0 (mmol/L) ??? Chloride 101 98 - 107 (mmol/L) ??? CO2 29 22 - 31 (mmol/L) ??? Anion Gap 10 5 - 15 (mmol/L) ??? Calcium 9.6 8.5 - 10.5 (mg/dL) ??? Total Protein 6.9 6.4 - 8.3 (gm/dL) ??? Albumin 4.6 3.2 - 5.2 (gm/dL) ??? AST 26 0 - 30 (unit/L) ??? ALT 22 0 - 30 (unit/L) ??? Alk Phos 63 40 - 104 (unit/L) ??? Total Bilirubin 0.3 0.2 - 1.3 (mg/dL) ??? Bili, Direct 0.1 0.0 - 0.3 (mg/dL) ? ? Estimated GFR >60 >=60 NUCLEATED RED BLOOD CELLS Component Value Range ??? nRBC % Auto 0.0 0.0 - 0.2 (%) ??? nRBC Abs Auto 0.000 0.000 - 0.012 (x10(3)/mcL) DIFFERENTIAL, MANUAL Component Value Range ??? Neutrophil % 12 (*) 34 - 71 (%) ??? Lymphocyte % 88 (*) 19 - 53 (%) ??? Neutrophil Abs 8.3 (*) 1.5 - 6.3 (x10(3)/mcL) ??? Neutr Abs (ANC) 8.31 (*) 1.50 - 6.30 (x10(3)/mcL) ??? Lymphocyte Abs 61.0 (*) 1.0 - 3.6 (x10(3)/mcL) ??? Tot Diff Cell Ct 100 ??? Plat Estimate Normal ??? RBC Morphology Normal ??? Smudge Cells Present BP 126/80 Pulse 68 Temp(Src) 36.5 ??C (97.7 ??F) (Oral) Resp 18 Ht 163.6 cm (5' 4.4) Wt 72.2 kg (159 lb 2.8 oz) BMI 26.98 kg/m2 SpO2 100% documented in this encounter Progress Notes Nilam So APRN - 09/12/2011 1:37 PM EDT Subjective: Patient ID: Carol Keller is a 61 y.o. female here for f/u of CLL Patient Active Problem List Diagnoses ??? SVT (supraventricular tachycardia) ??? Urinary incontinence, overflow ??? GERD (gastroesophageal reflux disease) ??? Diabetes mellitus ??? 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 Cytogenetics 13 deletion (favorable prognosis) DIANE Medina has been doing well. She has lost about 40 pounds over the past year - mostly following diabetic diet - she improved her AIC so much that she is now off Glipizide. She really is feeling well - working a lot, no infections this past year. Denies any new adenopathy or drenching night sweats - her regular menopausal hot flashed are actually improving. Review of Systems Constitutional: Negative. HENT: Negative. [...] time. She appears well- developed and well-nourished. HENT: Head: Normocephalic and atraumatic. Mouth/Throat: Oropharynx is clear and moist. No oropharyngeal exudate. Eyes: Conjunctivae are normal. Neck: Normal range of motion. Neck supple. 1 cm deep cervical nodes bilat. Small shoddy right occipital node Cardiovascular: Normal rate, regular rhythm and normal heart sounds. No murmur heard. Pulmonary/Chest: Effort normal and breath sounds normal. She has no wheezes. She has no rales. Abdominal: Soft. Bowel sounds are normal. She exhibits no mass. No tenderness. Musculoskeletal: Normal range of motion. She exhibits no edema. Lymphadenopathy: She has cervical adenopathy. Neurological: She is alert and oriented to person, place, and time. Skin: Skin is warm and dry. Psychiatric: She has a normal mood and affect. Recent Results (from the past 72 hour(s)) CBC (WITH DIFF) Component Value Range ??? WBC 69.3 (*) 4.0 - 10.0 (x10(3)/mcL) ??? RBC 4.87 3.93 - 5.22 (x10(6)/mcL) ??? Hemoglobin 14.9 11.2 - 15.7 (gm/dL) ??? Hematocrit 44.6 34.0 - 45.0 (%) ??? MCV 91.6 79.0 - 94.0 (fL) ??? MCH 30.6 26.6 - 32.2 (pg) ??? MCHC 33.4 32.0 - 36.5 (gm/dL) ??? Platelets 177 145 - 370 (x10(3)/mcL) ??? RDWSD 44.1 35.0 - 46.0 (fL) ??? RDWCV 13.3 10.9 - 14.4 (%) ??? MPV 11.5 9.0 - 12.0 (fL) COMPREHENSIVE METABOLIC PANEL (NON-FASTING) Component Value Range ??? Glucose Lvl 105 60 - 199 (mg/dL) ??? BUN 16 8 - 18 (mg/dL) ??? Creatinine 0.88 0.70 - 1.20 (mg/dL) ??? Sodium 140 135 - 145 (mmol/L) ??? Potassium 4.4 3.5 - 5.0 (mmol/L) ??? Chloride 101 98 - 107 (mmol/L) ??? CO2 29 22 - 31 (mmol/L) ??? Anion Gap 10 5 - 15 (mmol/L) ??? Calcium 9.6 8.5 - 10.5 (mg/dL) ??? Total Protein 6.9 6.4 - 8.3 (gm/dL) ??? Albumin 4.6 3.2 - 5.2 (gm/dL) ??? AST 26 0 - 30 (unit/L) ??? ALT 22 0 - 30 (unit/L) ??? Alk Phos 63 40 - 104 (unit/L) ??? Total Bilirubin 0.3 0.2 - 1.3 (mg/dL) ??? Bili, Direct 0.1 0.0 - 0.3 (mg/dL) ? ? Estimated GFR >60 >=60 NUCLEATED RED BLOOD CELLS Component Value Range ??? nRBC % Auto 0.0 0.0 - 0.2 (%) ??? nRBC Abs Auto 0.000 0.000 - 0.012 (x10(3)/mcL) DIFFERENTIAL, MANUAL Component Value Range ??? Neutrophil % 12 (*) 34 - 71 (%) ??? Lymphocyte % 88 (*) 19 - 53 (%) ??? Neutrophil Abs 8.3 (*) 1.5 - 6.3 (x10(3)/mcL) ??? Neutr Abs (ANC) 8.31 (*) 1.50 - 6.30 (x10(3)/mcL) ??? Lymphocyte Abs 61.0 (*) 1.0 - 3.6 (x10(3)/mcL) ??? Tot Diff Cell Ct 100 ??? Plat Estimate Normal ??? RBC Morphology Normal ??? Smudge Cells Present BP 126/80 Pulse 68 Temp(Src) 36.5 ??C (97.7 ??F) (Oral) Resp 18 Ht 163.6 cm (5' 4.4) Wt 72.2 kg (159 lb 2.8 oz) BMI 26.98 kg/m2 SpO2 100% Assessment and Plan: Assessment: CLL. No worrisome or symptomatic adenoapthy. No B symptoms, No recurrent infections, no signs of AIHA or ITP. No concern for transformation. Her ALC is up today - other counts all stable. No indication for treatment at this time, however I would like to monitor her disease progression a little more closely. Plan: We will continue to monitor in hematology clinic. Carol will return to hematology in 3 months. she will call if there are any problems before then. 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 Carol was offered the opportunity to participate in study [id number]: Lipoprotein Lipase Expression in Chronic Lymphocytic Leukemia Study protocol reviewed with patient, including description of study purpose, potential risks and benefits, voluntary nature or participation, and requirements of particip ation. Discussed confidentiality of patient???s private health information as specified in consent form. Carol informed that she may discontinue study involvement at any time; informed that declining to participate or discontinuing study treatment will not compromise her access to treatment options orcare at this institution. Carol Keller was given written informed consent form to read and review. She was given adequatetime to review all information, and to ask questions and review concerns, all of which were answeredto her satisfaction. Patient verbalized understanding of this protocol and consented for treatment on G17646: LipoproteinLipase Expression in Chronic Lymphocytic Leukemia. Consent form was signed and dated by patient and Dinh Eckert RNC. Written informed consent was obtained prior to any study procedures being conducted. A copy of the signed consent form was given to patient. Original signed IC form given to JAVIER Breen. documented in this encounter Plan of Treatment Upcoming Encounters Date Type Specialty Care Team Description 02/11/2022 Scheduled View Only Hematology and Ángel Fischer Oncology [facility] ONCOLOGY [place], [place] [address] (Wo rk) 02/11/2022 TH Visit (TeleHealth) Hematology Ángel Kimbrough Oncology [facility] ONCOLOGY [place], [place] [address] (Wo rk) 02/11/2022 Infusion Hematology and Oncology 02/11/2022 Office Visit Hematology and Jazzy Armendariz R Katarina [facility] HEMATOLOGY AND ONCOLOGY [place], [place] [address] (Wo rk) 02/22/2022 TH Visit (TeleHealth) Hematology and Yaquelin Celis Oncology [facility] HEMATOLOGY AND ONCOLOGY [place], [place] [address] (Wo rk) 02/25/2022 Office Visit Hematology Ángel Kimbrough Oncology [facility] ONCOLOGY [place], [place] [address] (Wo rk) 02/25/2022 Infusion Hematology and Oncology 03/10/2022 Scheduled View Only Obstetrics and Nurse, Julian COLEMAN, dairy technician 03/10/2022 Office Visit Obstetrics and Shazia Whitley Gynecology [facility] UROGYNECOLOGY [place], [place] [address] (Wo rk) 03/11/2022 Office Visit Hematology Ángel Kimbrough MD [facility] [place] [address] Oncology Alyssa Joseph, [address] [address] 03/11/2022 Infusion Hematology and Oncology 03/25/2022 Office Visit Hematology and Alyssa Joseph, Oncology [address] MEDICAL ONCOLOGY [place], [place] [id number] (Wo rk) 03/25/2022 Infusion Hematology and Oncology 03/31/2022 Office Visit Hematology and Alan Livingston M D [facility] DR HEMATOLOGY/[place] [address] Oncology [facility] [address] 04/08/2022 Office Visit Hematology and Ángel Fischer MD [facility] [place] [address] On[address] Alyss[address] MEDICAL ONCOLOGY [place], [place] [id number] 04/08/2022 Infusion Hematology and Oncology Scheduled Orders Name Type Priority Associated Diagnoses Order S chedule Miscellaneous Lab request Lab Routine CLL (chronic ly mphocytic Expected: 09/12/2011 leukemia) (Approximate), Expires: 2011 documented as of this encounter Results (ABNORMAL) Lactate Dehydrogenase (12/12/2011 2:39 PM EDT) athologist Signature LDH 229 (H) 110 - 220 [facility] unit/[facility] Specimen Anatomical Collection Method Collection Time Receive d Time (Source) Location / / Volume Laterality Blood specimen 12/12/2011 2:39 PM 012 2:43 (specimen) EDT PM EDT Resulting Agency Comment Spec In Lab Alan Livingston MD CHEMISTRY ORDERABLES Performing Organization Address City/State/[place] [address] CERNER [employer] Comprehensive metabolic panel (non-fasting) (12/12/2011 2:39 PM [...] Organization Address City/State/ZIP Code Phon e Number [place] [phone] [address] [facility] (ABNORMAL) CBC (with Diff) (12/12/2011 2:39 PM EDT) P athologist Signature WBC 64.9 4.0 - 10.0 [facility] (Critical) x10(3)/mcL [facility] Comment: Matches Previous Results This result has been called to NOT LOYD Katarina by BOB ORTEGA on 12.12.11 at 15:51, [...] Platelets 164 145 - 370 x10(3)/mcL CERNER MA LLENNIUM RDWSD 44.8 35.0 - 46.0 fL [...] Organization Address City/State/[place] [address] YANELIS HEARNIUM documented in this encounter Visit Diagnoses Diagnosis CLL (chronic lymphocytic leukemia) - [facility] Chronic lymphoid leukemia, without menti on of having achieved remission Chronic lymphoid leukemia (without menti on of remission) Chronic lymphoid leukemia, without menti on of having achieved remission documented in this encounter Care Teams Cashier Host/Hostess Relationship Specialty Start Date End Date Berkley Madrigal MD PCP - General 04/13/10 02/15/18 AYLEEN D [address] [place] [address] documented as of this encounter
--- OUTSIDE RECORDS SUMMARY | 2022-02-11 01:14 | XMS_ITS | Encounter Summary ---
:1950 Author Organization [facility] [place] [address] Care Team Providers Name Role Phone Berkley Madrigal MD Primary Care Provider Encounter Details Date Type Department Care Team Description 05/24/2010 Orders Only Lab [facility] Alan Redmond MD [facility] Katarina evangelista HEMATOLOGY/[place] [address] DEPT. [phone] [place], [place] [address] (Wo rk) Social History Tobacco [...] Ángel Kimbrough Oncology [facility] ONCOLOGY [place], [place] [address] (Wo rk) 02/11/2022 TH Visit (TeleHealth) Hematology Ángel Kimbrough Oncology [facility] DR UMANA [place], [place] [address] (Wo rk) 02/11/2022 Infusion Hematology and Oncology 02/11/2022 Office Visit Hematology and Jazzy Armendariz R D Oncology [facility]AR HEMATOLOGY AND ONCOLOGY [place], [place] [address] (Wo rk) 02/22/2022 TH Visit (TeleHealth) Hematology and Yaquelin Celis Oncology E, [facility] HEMATOLOGY AND ONCOLOGY [place], [place] [address] (Wo rk) 02/25/2022 Office Visit Ángel Hill Oncology [facility] ONCOLOGY [place], [place] [address] (Wo rk) 02/25/2022 Infusion Hematology and Oncology 03/10/2022 Scheduled View Only Obstetrics and Nurse, Obgyn II, traffic operations engineer 03/10/2022 Office Visit Obstetrics and Shazia Whitley, Gynecology [facility] UROGYNECOLOGY [place], [place] [address] (Wo rk) 03/11/2022 Office Visit Hector and Ángel Fischer MD [facility] [place] [address] On[address]lyss[address] MEDICAL ONCOLOGY [place], [place] [id number] 03/11/2022 Infusion Hematology and Oncology 03/25/2022 Office Visit Hematology and Alyssa Joseph, Oncology [address] ONCOLOGY [place], [place] [phone] (Wo rk) 03/25/2022 Infusion Hematology and Oncology 03/31/2022 Office Visit Hematology and Alan Livingston M D [facility] DR HEMATOLOGY/[place] [address] Oncology [facility] [address] 04/08/2022 Office Visit Hematology and Ángel Fischer MD [facility] [place] [address] Oncology Alyss[address] Joseph[address] ONCOLOGY [place], [place] [phone] 04/08/2022 Infusion Hematology and Oncology documented as of this encounter Procedures Procedure Name Priority Date/Time Associated Comments Diagnosis SCAN, PERIPHERAL BLOOD STAT 05/24/2010 12:38 R esults for this PM EST procedure are i n the results section. DIFFERENTIAL, STAT 05/24/2010 12:38 Results fo r this AUTOMATED PM EST procedure are i n the results section. CBC (WITH DIFF) STAT 05/24/2010 12:38 Results for this PM EST procedure are i n the results section. COMPREHENSIVE STAT 05/24/2010 12:38 Results fo r this METABOLIC PANEL PM EST procedure ar e in (NON-FASTING) the results section. documented in this encounter Results REFLEX LAB-SCAN (05/24/2010 12:38 PM EST) Analysis Performed At Patho logist Time Signature Plat Estimate Normal CERNER MILLENNIUM RBC Morphology Normal CERNER MILLENNIUM Smudge Cells Present CERNER MILLENNIUM Specimen Anatomical Collection Method Collection Time Receive d Time (Source) Location / / Volume Laterality Blood specimen 05/24/2010 12:38 1 (specimen) PM EST 12:51 PM EST Alan Livingston MD HEMATOLOGY ORDERABLES Performing Organization Address City/State/ZIP Code Phon e Number [place] [phone] CERNER MILLENNIUM (ABNORMAL) REFLEX LAB-A-DIFF (05/24/2010 12:38 PM EST) Patholo gist Method Time Signature Neutrophils % 11.7 (L) 34.0 - CERNER 71.0 % MILLENNIUM Neutr Abs (ANC) 4.66 1.50 - CERNER 6.30 MILLENNIUM x10(3)/mc L Lymphocytes % 84.5 (H) 19.0 - CERNER 53.0 % MILLENNIUM Lymphocytes Abs 33.8 (H) 1.0 - 3.6 CERNER x10(3)/mc MILLENNIUM L Monocytes % 2.7 (L) 4.0 - CERNER 13.0 % MILLENNIUM Monocyte Abs 1.1 (H) 0.2 - 1.0 CERNER x10(3)/mc MILLENNIUM [...] IG's will be scanned manually for anabel dandelma. If this scan disagrees with the automated IG or if promyelocytes are not ed, a manual differential will be performed.v Claudia Gran Abs 0.07 (H) 0.00 - 0.05 x10(3)/mcL CER NER MILLENNIUM Specimen Anatomical Collection Method Collection Time Receive d Time (Source) Location / / Volume Laterality Blood specimen 05/24/2010 12:38 1 (specimen) PM EST 12:51 PM EST Alan Livingston MD HEMATOLOGY ORDERABLES Performing Organization Address City/State/ZIP Code Phon e Number [place] [phone] CERNER MILLENNIUM COMPREHENSIVE METABOLIC PANEL (NON-FASTING) (05/24/2010 12:38 PM EST) P athologist Signature Glucose Lvl 88 <=199 mg/dL CERNER MILLENNIUM Comment: Diabetes: >=200 mg/dL plus symp toms BUN 16 8 - 18 mg/dL CERNER MILLENNIUM Creatinine 0.89 0.70 - 1.20 mg/dL CERNER MILL ENNIUM Sodium 140 135 - 145 mmol/L CERNER JAVI NIUM Potassium 4.7 3.5 - 5.0 mmol/L CERNER JAVI NIUM [...] 31 mmol/L CERNER MILLENNI UM Anion Gap 7 5 - 15 mmol/L CERNER MILLENNIU M Calcium 9.4 8.5 - 10.5 mg/dL CERNER JAVI NIUM Total Protein 7.1 6.4 - 8.3 gm/dL CERNER MIL LENNIUM Albumin 4.6 3.2 - 5.2 gm/dL CERNER MILLENN IUM AST 26 0 - 30 unit/L CERNER MILLENNIU M ALT 28 0 - 30 unit/L CERNER MILLENNIU M Alk Phos 74 40 - 104 unit/L CERNER MILLENN IUM [...] t steady-state (unchanged within the past week). ??Patient age > = 18 years, and for Americans multiply eGFR by 1.2. At present, [facility] does NOT recommend usi [...] Location / / Volume Laterality Blood specimen 05/24/2010 12:38 1 (specimen) PM EST 12:51 PM EST Alan Livingston MD CHEMISTRY ORDERABLES Performing Organization Address City/State/[place] [address] YANELIS MIRZAENNIUM (ABNORMAL) CBC (05/24/2010 12:38 PM EST) P athologist Signature WBC 40.0 (AA) 4.0 - 10.0 CERNER x10(3)/mcL MILLENNIUM Comment: This result has been called to Saadia cazares by Trista Raygoza on; 05.24.10 at 13:19, and has been read back (). RBC 5.16 3.93 - 5.22 x10(6)/mcL CERNER MILLENNIUM Hemoglobin 15.2 11.2 - 15.7 gm/dL CERNER MILL ENNIUM Hematocrit 46.4 (H) 34.0 - 45.0 % CERNER MILLENNI UM MCV 89.9 79.0 - 94.0 fL CERNER MILLENNI UM MCH 29.5 26.6 - 32.2 pg CERNER MILLENNI UM MCHC 32.8 32.0 - 36.5 gm/dL CERNER MILLE NNIUM Platelets 197 145 - 370 x10(3)/mcL CERNER NM LLENNIUM RDWSD 45.3 35.0 - 46.0 fL CERNER MILLENNI UM RDWCV 13.8 10.9 - 14.4 % CERNER MILLENNIU M MPV 11.0 9.0 - 12.0 fL CERNER MILLENNIU M Specimen Anatomical Collection Method Collection Time Receive d Time (Source) Location / / Volume Laterality Blood specimen 05/24/2010 12:38 1 (specimen) PM EST 12:51 PM EST Alan Livingston MD HEMATOLOGY ORDERABLES Performing Organization Address City/State/[place] [address] CERNER MILLENNIUM documented in this encounter Visit Diagnoses Not on filedocumented in this encounter Care Teams Floorleader Relationship Specialty Start Date End Date Berkley Madrigal MD PCP - General 04/13/10 02/15/18 AYLEEN Katarina [address] [place] [address] documented as of this encounter
--- OUTSIDE RECORDS SUMMARY | 2022-02-11 01:14 | XMS_ITS | Encounter Summary ---
:1950 Author Organization [facility] [place] [address] Care Team Providers Name Role Phone Berkley Madrigal MD Primary Care Provider Reason for Visit Reason Comments Follow-up Encounter Details Date Type Department Care Team Description 10/08/2012 Follow-Up Hematology and Alan Livingston M D CLL (chronic lymphocytic leukemia) (Prim alyson Dx); Oncology at [facility] Chronic lymphocytic leukemia [facility] DR Perkins HEMATOLOGY/[place] [address] DEPT. [phone] [place], [place] [address] (Wo rk) Social History Tobacco [...] Sign Reading Time Taken Comments Blood Pressure 128/78 10/08/2012 1:11 PM EDT Pulse 84 10/08/2012 1:11 PM EDT Temperature 36.7 ??C (98.1 ??F) 10/08/2012 1:11 PM EDT Respiratory Rate 16 10/08/2012 1:11 PM EDT Oxygen Saturation 99% 10/08/2012 1:11 PM EDT Inhaled Oxygen Concentration - - Weight 74.8 kg (165 lb) 10/08/2012 1:11 PM EDT Height 164.2 cm (5' 4.65) 10/08/2012 1:11 PM EDT Body Mass Index 27.76 10/08/2012 1:11 PM EDT documented in this encounter Patient Instructions Patient InstructionsNilam So, INSTRUCTIONAL TECHNOLOGY INSTRUCTOR - 10/08/2012 1:14 PM EDT Recent Results (from the past 72 hour(s)) CBC (WITH DIFF) Component Value Range WBC 93.8 (*) 4.0 - 10.0 x10(3)/mcL RBC 4.67 3.93 - 5.22 x10(6)/mcL Hemoglobin 14.1 11.2 - 15.7 gm/dL Hematocrit 44.2 34.0 - 45.0 % MCV 94.6 (*) 79.0 - 94.0 fL MCH 30.2 26.6 - 32.2 pg MCHC 31.9 (*) 32.0 - 36.5 gm/dL Platelets 177 145 - 370 x10(3)/mcL RDWSD 46.4 (*) 35.0 - 46.0 fL RDWCV 13.7 10.9 - 14.4 % MPV 11.8 9.0 - 12.0 fL COMPREHENSIVE METABOLIC PANEL (NON-FASTING) Component Value Range Glucose Lvl 94 60 - 199 mg/dL BUN 13 8 - 18 mg/dL Creatinine 0.88 0.70 - 1.20 mg/dL Sodium 143 135 - 145 mmol/L Potassium 4.5 3.5 - 5.0 mmol/L Chloride 104 98 - 107 mmol/L CO2 33 (*) 22 - 31 mmol/L Anion Gap 6 5 - 15 mmol/L Calcium 9.6 8.5 - 10.5 mg/dL Total Protein 6.6 6.4 - 8.3 gm/dL Albumin 4.4 3.2 - 5.2 gm/dL AST 24 0 - 30 unit/L ALT 19 0 - 30 unit/L Alk Phos 68 40 - 104 unit/L Total Bilirubin 0.4 0.2 - 1.3 mg/dL Bili, Direct 0.1 0.0 - 0.3 mg/dL Estimated GFR >60 >=60 documented in this encounter Progress Notes Nilam So, ADENIKE - 10/08/2012 1:44 PM EDT Subjective: Patient ID: Carol Keller is a 62 y.o. female here for f/u of CLL Patient Active Problem List Diagnoses ??? Macular pucker, right eye ??? Horseshoe retinal tear, right eye ??? SVT (supraventricular tachycardia) ??? Urinary incontinence, overflow ??? GERD (gastroesophageal reflux disease) ??? Diabetes mellitus ??? 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 Cytogenetics 13 deletion (favorable prognosis) DIANE Christian has been doing well - her only complaint continues to be her temperature fluctuations - she gets hot and cold and gets frequent ho tflashes - she is concerned it may be her thyroid. She has had no drenching night sweats, no new or growing adenopathy. Ne recent infections. 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 She is looking forward to white water [employer] this summer. Review of Systems Constitutional: Negative. HENT: Negative. [...] Neck: Normal range of motion. Neck supple. Few shoddy cervical nodes, largest is about 1 cm - right posterior cervical. No inguinal or axillary nodes Cardiovascular: Normal rate, regular rhythm and [...] CBC (WITH DIFF) Component Value Range WBC 93.8 (*) 4.0 - 10.0 x10(3)/mcL RBC 4.67 3.93 - 5.22 x10(6)/mcL Hemoglobin 14.1 11.2 - 15.7 gm/dL Hematocrit 44.2 34.0 - 45.0 % MCV 94.6 (*) 79.0 - 94.0 fL MCH 30.2 26.6 - 32.2 pg MCHC 31.9 (*) 32.0 - 36.5 gm/dL Platelets 177 145 - 370 x10(3)/mcL RDWSD 46.4 (*) 35.0 - 46.0 fL RDWCV 13.7 10.9 - 14.4 % MPV 11.8 9.0 - 12.0 fL COMPREHENSIVE METABOLIC PANEL (NON-FASTING) Component Value Range Glucose Lvl 94 60 - 199 mg/dL BUN 13 8 - 18 mg/dL Creatinine 0.88 0.70 - 1.20 mg/dL Sodium 143 135 - 145 mmol/L Potassium 4.5 3.5 - 5.0 mmol/L Chloride 104 98 - 107 mmol/L CO2 33 (*) 22 - 31 mmol/L Anion Gap 6 5 - 15 mmol/L Calcium 9.6 8.5 - 10.5 mg/dL Total Protein 6.6 6.4 - 8.3 gm/dL Albumin 4.4 3.2 - 5.2 gm/dL AST 24 0 - 30 unit/L ALT 19 0 - 30 unit/L Alk Phos 68 40 - 104 unit/L Total Bilirubin 0.4 0.2 - 1.3 mg/dL Bili, Direct 0.1 0.0 - 0.3 mg/dL Estimated GFR >60 >=60 NUCLEATED RED BLOOD CELLS Component Value Range nRBC % Auto 0.0 0.0 - 0.2 % nRBC Abs Auto 0.000 0.000 - 0.012 x10(3)/mcL DIFFERENTIAL, MANUAL Component Value Range Neutrophil % 4 (*) 34 - 71 % Lymphocyte % 96 (*) 19 - 53 % Neutrophil Abs 3.8 1.5 - 6.3 x10(3)/mcL Neutr Abs (ANC) 3.75 1.50 - 6.30 x10(3)/mcL Lymphocyte Abs 90.0 (*) 1.0 - 3.6 x10(3)/mcL Tot Diff Cell Ct 100 Plat Estimate Normal RBC Morphology Normal Smudge Cells Present BP 128/78 Pulse 84 Temp(Src) 36.7 ??C (98.1 ??F) (Oral) Resp 16 Ht 164.2 cm (5' 4.65) Wt 74.844 kg (165 lb) BMI 27.76 kg/m2 SpO2 99% Assessment and Plan: 1. Assessment: CLL. WBC/ALC slowly climbing, Hg and platelets stable, No worrisome or symptomatic adenoapthy. No B symptoms, ALC doubling time remains well over a year, No recurrent infections, no signs of AIHA or ITP. No concern for transformation. No indication for treatment at this time. 2. Temperature fluctuations/hot flashes - we will add on thyoid studies to todays labs - I will callher with results once they are available. Plan: We will continue to monitor in hematology clinic. Reviewed CLL and indications for treatment. Carol will return to hematology in 3-4 months. she will call if there are any problems before then. Stefania Arechiga RN - 10/08/2012 11:54 AM EDT Documentation of Informed Consent to Participate in Clinical Trial D0905: Protocol to Obtain Blood Samples for Leukemia Research Patient, with friend, was seen in Hematology-Oncology clinic while awaiting lupe???d blood draw for lab work prior to his appt with Dr. Livingston on 10/08/2012. I have confirmed this patient has CLL and is having routine blood draws performed at [facility]. Patient was offered the opportunity [...] was signed and dated by patient and instructional writer. Written informed consent was obtained prior [...] Only Hematology and Ángel Fischer, Oncology [facility] ONCOLOGY [place], [place] [address] (Wo rk) 02/11/2022 TH Visit (TeleHealth) Hematology Ángel Kimbrough Oncology [facility] DR UMANA [place], [place] [address] (Wo rk) 02/11/2022 Infusion Hematology and Oncology 02/11/2022 Office Visit Hematology and Jazzy Armendariz R D Oncology [facility] HEMATOLOGY AND ONCOLOGY [place] [id number] (Wo rk) 02/22/2022 TH Visit (TeleHealth) Hematology and Yaquelin Celis Oncology E, [facility] HEMATOLOGY AND ONCOLOGY [place], [place] [address] (Wo rk) 02/25/2022 Office Visit Hematology Ángel Kimbrough Oncology [facility] ONCOLOGY [place], [place] [address] (Wo rk) 02/25/2022 Infusion Hematology and Oncology 03/10/2022 Scheduled View Only Obstetrics and Nurse, Oboneal COLEMAN, computer system specialist 03/10/2022 Office Visit Obstetrics and Shazia Whitley, Gynecology [facility] UROGYNECOLOGY [place], [place] [address] (Wo rk) 03/11/2022 Office Visit Hematology and Ángel Fischer MD [facility] [place] [address] [address] MEDICAL ONCOLOGY [place], [place] [address] 03/11/2022 Infusion Hematology and Oncology 03/25/2022 Office Visit Hematology and Alyssa Joseph, Oncology [address] MEDICAL ONCOLOGY [place], [place] [id number] (Wo rk) 03/25/2022 Infusion Hematology and Oncology 03/31/2022 Office Visit Hematology and Alan Livingston M D [facility] DR HEMATOLOGY/[place] [address] Oncology [facility] [address] 04/08/2022 Office Visit Hematology and Ángel Fischer MD [facility] [place] [address] Oncology [address]lyss[address] Joseph[address] MEDICAL ONCOLOGY [place], [place] [id number] 04/08/2022 Infusion Hematology and Oncology documented as of this encounter Procedures Procedure Name Priority Date/Time Associated Comments Diagnosis DIFFERENTIAL, MANUAL STAT 10/08/2012 11:59 Res ults for this AM EDT procedure are i n the results section. NUCLEATED RED BLOOD STAT 10/08/2012 11:59 Resu lts for this CELLS AM EDT procedure are i n the results section. CBC (WITH DIFF) STAT 10/08/2012 11:59 CLL (chronic Results for this AM EDT lymphocytic procedure are i n leukemia) the results section. TSH STAT 10/08/2012 11:59 Results for this AM EDT procedure are i n the results section. T4, FREE STAT 10/08/2012 11:59 Results for this AM EDT procedure are i n the results section. COMPREHENSIVE STAT 10/08/2012 11:59 CLL (chronic Results fo r this METABOLIC PANEL AM EDT lymphocytic procedure ar e in (NON-FASTING) leukemia) the results section. documented in this encounter Results (ABNORMAL) Lactate Dehydrogenase (03/11/2013 2:46 PM EDT) athologist Signature LDH 221 (H) 110 - 220 CERNER unit/L MILLENNIUM Specimen Anatomical Collection Method Collection Time Receive d Time (Source) Location / / Volume Laterality Blood specimen 03/11/2013 2:46 PM 013 2:53 (specimen) EDT PM EDT Resulting Agency Comment Spec In Lab Alan Livingston MD CHEMISTRY ORDERABLES Performing Organization Address City/State/[place] [address] CERNER MILLENNIUM Comprehensive metabolic panel (non-fasting) (03/11/2013 2:46 PM EDT) athologist Signature Glucose Lvl 85 60 - 199 CERNER mg/dL MILLENNIUM Comment: Diabetes: >=200 mg/dL plus symp toms BUN 15 8 - 18 mg/dL CERNER MILLENNIUM Creatinine 0.92 0.70 - 1.20 mg/dL CERNER MILL ENNIUM Comment: Please note that the pediatric reference intervals supplied above were not validated at [facility]. Results from pediatri c patients [...] Organization Address City/State/ZIP Code [place] [address] CERNER MILLENNIUM (ABNORMAL) CBC (with Diff) (03/11/2013 2:46 PM EDT) P athologist Signature WBC 109.2 4.0 - 10.0 CERNER (Critical) x10(3)/mcL MILLENNIUM Comment: #WBCC This result has been called to mechelle fish by MARIELA MENJIVAR on 10.21.13 at 15:11, and has been read back [...] Platelets 168 145 - 370 x10(3)/mcL CERNER [place] LLENNIUM RDWSD 47.3 (H) 35.0 - 46.0 [...] Organization Address City/State/ZIP Code Phon e Number [address] [facility] T4, free (10/08/2012 11:59 AM EDT) athologist Signature Free T4 1.03 0.90 - 1.60 CERNER ng/dL [facility] Specimen Anatomical Collection Method Collection Time Receive d Time (Source) Location / / Volume Laterality Blood specimen 10/08/2012 11:59 3 (specimen) AM EDT 12:08 PM EDT Resulting Agency Comment Spec In Lab Alan Livingston MD CHEMISTRY ORDERABLES Performing Organization Address City/State/ZIP Code Phon e Number [address] [facility] TSH (10/08/2012 11:59 AM EDT) athologist Signature TSH 3.00 0.27 - 4.20 CERNER mcIU/mL MILLENNIUM Specimen Anatomical Collection Method Collection Time Receive d Time (Source) Location / / Volume Laterality Blood specimen 10/08/2012 11:59 3 (specimen) AM EDT 12:08 PM EDT Resulting Agency Comment Spec In Lab Alan Livingston MD CHEMISTRY ORDERABLES Performing Organization Address City/[facility]/ZIP Code Phon e Number [address] CERNER MILLENNIUM (ABNORMAL) Differential, Manual (10/08/2012 11:59 AM EDT) Patholo gist Method Time Signature Neutrophil % 4 (L) 34 - 71 % CERNER MILLENNIUM Lymphocyte % 96 (H) 19 - 53 % CERNER MILLENNIUM Neutrophil Abs 3.8 1.5 - 6.3 CERNER x10(3)/mcL MILLENNIUM Neutr Abs (ANC) 3.75 1.50 - CERNER 6.30 MILLENNIUM x10(3)/mcL Lymphocyte Abs 90.0 (H) 1.0 - 3.6 CERNER x10(3)/mcL MILLENNIUM Tot Diff Cell 100 [...] Livingston MD HEMATOLOGY ORDERABLES Performing Organization Address City/[facility]/ZIP Code Phon e Number [address] CERNER MILLENNIUM Nucleated Red Blood Cells (10/08/2012 11:59 AM EDT) P athologist Signature nRBC % [...] Organization Address City/State/ZIP Code [place] [address] CERNER MILLENNIUM (ABNORMAL) Comprehensive metabolic panel (non-fasting) (10/08/2012 11:59 AM EDT) athologist Signature Glucose Lvl 94 60 - 199 CERNER mg/dL MILLENNIUM Comment: Diabetes: >=200 mg/dL plus symp toms BUN 13 8 - 18 mg/dL CERNER MILLENNIUM Creatinine 0.88 0.70 - 1.20 mg/dL CERNER MILL ENNIUM Comment: Please note that the pediatric reference intervals supplied above were not validated at [facility]. Results from pediatri c patients [...] Organization Address City/State/ZIP Code Phon e Number [place] [phone] [address] CERNER MILLENNIUM (ABNORMAL) CBC (with Diff) (10/08/2012 11:59 AM EDT) P athologist Signature WBC 93.8 4.0 - 10.0 CERNER (Critical) x10(3)/mcL MILLENNIUM Comment: This result has been called to CAROL BERMUDEZ by TYSON MILLS on 10.08.12 at 12:42, and has b sadi read back (). RBC 4.67 3.93 - [...] Platelets 177 145 - 370 x10(3)/mcL CERNER [place] LLENNIUM RDWSD 46.4 (H) 35.0 - 46.0 fL YANELIS HEARNI RDWCV 13.7 10.9 - 14.4 % YANELIS HEARNIU MPV 11.8 9.0 - 12.0 fL YANELIS HEARNIU M Specimen Anatomical Collection Method Collection Time Receive d Time (Source) Location / / Volume Laterality Blood specimen 10/08/2012 11:59 3 (specimen) AM EDT 12:08 PM EDT Resulting Agency Comment Spec In Lab Alan Livingston MD HEMATOLOGY ORDERABLES Performing Organization Address City/State/[place] [address] [facility] documented in this encounter Visit Diagnoses Diagnosis CLL (chronic lymphocytic leukemia) - Cordelia watt Chronic lymphoid leukemia, without menti on of having achieved remission Chronic lymphocytic leukemia Chronic lymphoid leukemia, without menti on of having achieved remission documented in this encounter Care Teams Senior Architect/Design Manager Relationship Specialty Start Date End Date Berkley Madrigal MD PCP - General 04/13/10 02/15/18 AYLEEN D [address] [place] [address] documented as of this encounter
--- OUTSIDE RECORDS SUMMARY | 2022-02-11 01:14 | XMS_ITS | Encounter Summary ---
:1950 Author Organization [facility] [place] [address] Care Team Providers Name Role Phone Berkley Madrigal MD Primary Care Provider Encounter Details Date Type Department Care Team Description 12/06/2010 Hospital Encounter Laboratory CLINIC, [facility] Alan Livingston MD [facility] HEMATOLOGY/[place] [address] [place] [address] Social History Tobacco Use Types Packs/Day [...] Oncology [facility] ONCOLOGY [place], [place] [address] (Shana hewitt) 02/11/2022 TH Visit (TeleHealth) Hematology and Ángel Fischer Oncology [facility] DR UMANA [place], [place] [address] (Shana hewitt) 02/11/2022 Infusion Hematology and Oncology 02/11/2022 Office Visit Hematology and Jazzy Armendariz R D Oncology [facility] HEMATOLOGY AND ONCOLOGY [place], [place] 0[address] (Wo rk) 02/22/2022 TH Visit (TeleHealth) Hematology and Yaquelin Celis Oncology E, [facility] HEM[facility] AND ONCOLOGY [place], [place] [address] (Wo rk) 02/25/2022 Office Visit Hematology Ángel Kimbrough Oncology [facility] ONCOLOGY [place], [place] [address] (Wo rk) 02/25/2022 Infusion Hematology and Oncology 03/10/2022 Scheduled View Only Obstetrics and Nurse, Julian COLEMAN, lawn care specialist 03/10/2022 Office Visit Obstetrics and Shazia Whitley, Gynecology [facility] UROGYNECOLOGY [place], [place] [address] (Wo rk) 03/11/2022 Office Visit Hematology and Ángel Fischer MD [facility] [place] [address] Oncology [address]lyss[address] Joseph[address] MEDICAL ONCOLOGY [place], [place] [address] 03/11/2022 Infusion Hematology and Oncology 03/25/2022 Office Visit Hematology and Alyssa Joseph Oncology [address] MEDICAL ONCOLOGY [place], [place] [address] (Wo rk) 03/25/2022 Infusion Hematology and Oncology 03/31/2022 Office Visit Hematology and Alan Livingston M D [facility] HEMATOLOGY/[place] [address] [facility]cology [facility] [address] 04/08/2022 Office Visit Hematology and Ángel Fischer MD [facility] [place] [address] Oncology Alyssa Joseph, [address] MEDICAL ONCOLOGY [place], [place] [address] 04/08/2022 Infusion Hematology and Oncology documented as of this encounter Visit Diagnoses Not on filedocumented in this encounter Care Teams Furnace Erector Relationship Specialty Start Date End Date Berkley Madrigal MD PCP - General 04/13/10 02/15/18 AYLEEN Katarina [address] [place], [place] [id number] documented as of this encounter
--- OUTSIDE RECORDS SUMMARY | 2022-02-11 01:14 | XMS_ITS | Encounter Summary ---
:1950 Author Organization [facility] [place] [address] Care Team Providers Name Role Phone Berkley Madrigal MD Primary Care Provider Encounter Details Date Type Department Care Team Description 10/08/2012 Ancillary Hematology and CLINIC, DR BENJAMIN NGO (chron ic Appointment Oncology at [facility] Sai Cartwright MD [facility] DR HEMATOLOGY/[place] [address] [facility] leukemia) [place] [address] Social History Tobacco Use Types [...] View Only Hematology and Ángel Fischer Oncology [facility] ONCOLOGY [place], [place] [address] (Wo rk) 02/11/2022 TH Visit (TeleHealth) Hematology Ángel Kimbrough Oncology [facility] DR UMANA [place], [place] [address] (Wo rk) 02/11/2022 Infusion Hematology and Oncology 02/11/2022 Office Visit Hematology and Jazzy Armendariz R D Oncology [facility] HEMATOLOGY AND ONCOLOGY [place], [place] [address] (Wo rk) 02/22/2022 TH Visit (TeleHealth) Hematology and Yaquelin Celis Oncology E, [facility] HEMATOLOGY AND ONCOLOGY [place], [place] [address] (Wo rk) 02/25/2022 Office Visit Hematology Ángel Kimbrough Oncology [facility] DR UMANA [place], [place] [address] (Wo rk) 02/25/2022 Infusion Hematology and Oncology 03/10/2022 Scheduled View Only Obstetrics and Nurse, Julian COLEMAN, instrument person 03/10/2022 Office Visit Obstetrics and Shazia Whitley, Gynecology [facility] UROGYNECOLOGY [place], [place] [address] (Wo rk) 03/11/2022 Office Visit Hematology and Ángel Fischer MD [facility] [place] [address] Oncology [address] MEDICAL ONCOLOGY [place], [place] [id number] 03/11/2022 Infusion Hematology and Oncology 03/25/2022 Office Visit Hematology and Alyssa Joseph, Oncology [address] MEDICAL ONCOLOGY [place], [place] [phone] (Wo rk) 03/25/2022 Infusion Hematology and Oncology 03/31/2022 Office Visit Hematology and Alan Livingston M D [facility] DR HEMATOLOGY/[place] [address] [facility] [address] 04/08/2022 Office Visit Hematology and Ángel Fischer MD [facility] [place] [address] Oncology [address]lyss[address] Joseph[address] MEDICAL ONCOLOGY [place], [place] [id number] 04/08/2022 Infusion Hematology and Oncology documented as of this encounter Visit Diagnoses Diagnosis CLL (chronic lymphocytic leukemia) Chronic lymphoid leukemia, without menti on of having achieved remission documented in this encounter Care Teams Vehicle Monitor Technician Relationship Specialty Start Date End Date Berkley Madrigal MD PCP - General 04/13/10 02/15/18 AYLEEN Bray [address] [place] [address] documented as of this encounter
--- OUTSIDE RECORDS SUMMARY | 2022-02-11 01:14 | XMS_ITS | Encounter Summary ---
:1950 Author Organization [place] [address] Care Team Providers Name Role Phone Berkley Madrigal MD Primary Care Provider Reason for Visit Reason Comments Procedure focal OD for ret tear Encounter Details Date Type Department Care Team Description 08/14/2012 Procedure visit Ophthalmology at [facility] Erlinda, Retinal tear (Primary Dx); [facility] Pavan Valle MD CLL (chronic lymphocytic leukemia); [facility] Diabetes mellitus; [place], [place] DR Romeo wallace, right eye; [phone] O[address] DEPT[address] [place]orseshoe retinal tear, right eye [phone] [place], [place] [address] (Wo rk) Social History Tobacco [...] Progress Notes Pavan Coffey MD - 08/19/2012 9:35 PM EDT Return one week or immediately if any changes in the right eye. CBC MD documented in this encounter Plan of Treatment Upcoming Encounters Date Type Specialty Care Team Description 02/11/2022 Scheduled View Only Hematology and Ángel Fischer Oncology [facility] ONCOLOGY [place], [place] [address] (Wo rk) 02/11/2022 TH Visit (TeleHealth) Hematology Ángel Kimbrough Oncology [facility] ONCOLOGY [place], [place] [address] (Wo rk) 02/11/2022 Infusion Hematology and Oncology 02/11/2022 Office Visit Hematology and Jazzy Armendariz R D Oncology [facility] CESAR HEMATOLOGY AND ONCOLOGY [place], [place] [address] (Wo rk) 02/22/2022 TH Visit (TeleHealth) Hematology and Yaquelin Celis Oncology E, [facility] HEMATOLOGY AND ONCOLOGY [place], [place] [address] (Wo rk) 02/25/2022 Office Visit Hematology and Ángel Fischer, Oncology [facility] ONCOLOGY [place], [place] [address] (Wo rk) 02/25/2022 Infusion Hematology and Oncology 03/10/2022 Scheduled View Only Obstetrics and Nurse, Julian COLEMAN, ceramic chemist 03/10/2022 Office Visit Obstetrics and Gutierrez, Shazia Baer, Gynecology [facility] UROGYNECOLOGY [place], [place] 0375 (Wo rk) 03/11/2022 Office Visit Hematology and Ángel Fischer MD [facility] [place] [address] Oncology Alyssa Joseph, [address] MEDICAL ONCOLOGY [place], [place] [address] 03/11/2022 Infusion Hematology and Oncology 03/25/2022 Office Visit Hematology and Alyssa Joseph, Oncology [address] [place] [address] (Wo rk) 03/25/2022 Infusion Hematology and Oncology 03/31/2022 Office Visit Hematology and Alan Livingston M D [facility] HEMATOLOGY/[place] [address] [facility]cology [facility] [address] 04/08/2022 Office Visit Hematology and Ángel Fischer MD [facility] [place] [address] Oncology Jake Alyssa Bridger, PI/SENIOR RESEARCH ASSOCIATE [address] [place] [address] DR MEDICAL ONCOLOGY [place], [place] [id number] 04/08/2022 Infusion Hematology and Oncology documented as of this encounter Procedures Procedure Name Priority Date/Time Associated Comments Diagnosis DESTRUCTION LOC Routine 08/19/2012 9:35 PM Retinal tear Result s for this LESION EDT procedure are i n RETINA-PHOTOCOAG - OD the re sults - RIGHT EYE section. documented in this encounter Results Laser Focal Retinal Lesion - OD - Right Eye (08/19/2012 9:35 PM EDT) P athologist Signature Laser 225 Applications Laser Total Energy Anatomical Region Laterality Modality Other Specimen (Source) Anatomical Location Collection Method / Collectio n Time Received Time / Laterality Volume Pavan Coffey MD OPHTHALMOLOGY SERVICES ORDER MELYSSA documented in this encounter Visit Diagnoses Diagnosis Retinal tear - Primary Retinal detachment with retinal defect, unspecified CLL (chronic lymphocytic leukemia) Chronic lymphoid leukemia, without menti on of having achieved remission Diabetes mellitus Type II or unspecified type diabetes omer litus without mention of complication, not stated as uncontrolled Macular pucker, right eye Macular puckering of retina Horseshoe retinal tear, right eye Horseshoe tear of retina without detachm ent documented in this encounter Care Teams Nuclear Medical Tech Relationship Specialty Start Date End Date Berkley Madrigal MD PCP - General 04/13/10 02/15/18 AYLEEN Bray [address] [place], [place] [address] documented as of this encounter
--- OUTSIDE RECORDS SUMMARY | 2022-02-11 01:14 | XMS_ITS | Encounter Summary ---
:1950 Author Organization [facility] [place] [address] Care Team Providers Name Role Phone Berkley Madrigal MD Primary Care Provider Encounter Details Date Type Department Care Team Description 09/12/2011 Hospital Encounter Laboratory CLINIC, DR ALEXANDER Chronic lymphoid leukemia; [facility] Alan Livingston MD [facility] HEMATOLOGY/[place] [address] CLL (chronic lymphocytic leukemia) [place] [id number] Social History Tobacco Use Types Packs/Day Years [...] by mouth 0 10/08/2012 mg capsule daily. Yoder-3 Fatty Acids (FISH Take 500 mg by [...] Fischer Oncology [facility] ONCOLOGY [place], [place] [address] (Wo rk) 02/11/2022 TH Visit (TeleHealth) Hematology Ángel Kimbrough Oncology [facility] ONCOLOGY [place], [place] [address] (Wo rk) 02/11/2022 Infusion Hematology and Oncology 02/11/2022 Office Visit Hematology and Jazzy Armendariz R D [facility] CESAR HEMATOLOGY AND ONCOLOGY [place], [place] [address] (Wo rk) 02/22/2022 TH Visit (TeleHealth) Hematology and Yaquelin Celis Oncology , [facility] HEMATOLOGY AND ONCOLOGY [place], [place] [address] (Wo rk) 02/25/2022 Office Visit Hematology Ángel Kimbrough Oncology [facility] DR UMANA [place], [place] [address] (Wo rk) 02/25/2022 Infusion Hematology and Oncology 03/10/2022 Scheduled View Only Obstetrics and Nurse, Julian COLEMAN, air dispatcher 03/10/2022 Office Visit Obstetrics and Shazia Whitley, Gynecology [facility] UROGYNECOLOGY [place], [place] [address] (Wo rk) 03/11/2022 Office Visit Ángel Hill MD [facility] [place] [address] Oncology Alyssa Joseph, [address] [place] [address] 03/11/2022 Infusion Hematology and Oncology 03/25/2022 Office Visit Hematology and Alyssa Joseph, Oncology [address] MEDICAL ONCOLOGY [place], [place] [phone] (Wo rk) 03/25/2022 Infusion Hematology and Oncology 03/31/2022 Office Visit Hematology and Alan Livingston M D [facility] DR HEMATOLOGY/[place] [address] Oncology Nilam So, [facility] DR HEMATOLOGY/[place] [address] 04/08/2022 Office Visit Hematology and Ángel Fischer MD [facility] [place] [address] Oncology Alyssa Joseph[address] MEDICAL ONCOLOGY [place], [place] [phone] 04/08/2022 Infusion Hematology and Oncology Scheduled Orders Name Type Priority Associated Diagnoses Order S chedule CBC (with Diff) Lab STAT CLL (chronic 1 Occurrence s starting lymphocytic leukemia) 2011 Comprehensive metabolic Lab STAT CLL (chronic 1 Oc currences starting panel (CMP) lymphocytic leukemia) 2011 documented as of this encounter Procedures Procedure Name Priority Date/Time Associated Comments Diagnosis DIFFERENTIAL, MANUAL STAT 09/12/2011 12:43 Res ults for this PM EDT procedure are i n the results section. NUCLEATED RED BLOOD STAT 09/12/2011 12:43 Resu lts for this CELLS PM EDT procedure are i n the results section. CBC (WITH DIFF) STAT 09/12/2011 12:43 Chronic lymphoid Resu lts for this PM EDT leukemia procedure are i n the results section. COMPREHENSIVE STAT 09/12/2011 12:43 Chronic lymphoid Result s for this METABOLIC PANEL PM EDT leukemia procedure ar e in (NON-FASTING) the results section. documented in this encounter Results (ABNORMAL) DIFFERENTIAL, MANUAL (09/12/2011 12:43 PM EDT) [facility] Method Time Signature Neutrophil % 12 (L) 34 - 71 % CERNER MILLENNIUM Lymphocyte % 88 (H) 19 - 53 % CERNER MILLENNIUM Neutrophil Abs 8.3 (H) 1.5 - 6.3 CERNER x10(3)/mcL MILLENNIUM Neutr Abs (ANC) 8.31 (H) 1.50 - CERNER 6.30 MILLENNIUM x10(3)/mcL Lymphocyte Abs 61.0 (H) 1.0 - 3.6 CERNER x10(3)/mcL MILLENNIUM [...] Livingston MD HEMATOLOGY ORDERABLES Performing Organization Address City/[facility]/ZIP Code Phon e Number [address] CERNER MILLENNIUM NUCLEATED RED BLOOD CELLS (09/12/2011 12:43 PM EDT) athologist Signature nRBC % Auto [...] Livingston MD HEMATOLOGY ORDERABLES Performing Organization Address City/[facility]/ZIP Code Phon e Number [address] CERNER MILLENNIUM Comprehensive metabolic panel (non-fasting) (09/12/2011 12:43 PM [...] Organization Address City/State/[place] [address] [facility] MILLENNIUM (ABNORMAL) CBC (with Diff) (09/12/2011 12:43 PM EDT) P athologist Signature WBC 69.3 4.0 - 10.0 CERNER (Critical) x10(3)/mcL MILLENNIUM Comment: This result has been called to abel gil by DOROTEO BARRAGAN on 09.12.11 at 13:16, and moser s been read back (). RBC 4.87 3.93 - 5.22 x10(6)/mcL CERNER MILLENNIUM Hemoglobin 14.9 11.2 - 15.7 gm/dL YANELIS MILL ENNIUM Hematocrit 44.6 34.0 - 45.0 % CERNER MILLENNI UM MCV 91.6 79.0 - 94.0 fL CERNER MILLENNI UM MCH 30.6 26.6 - 32.2 pg CERNER MILLENNI UM MCHC 33.4 32.0 - 36.5 gm/dL YANELIS MIRZAE NNIUM Platelets 177 145 - 370 x10(3)/mcL YANELSI MO LLENNIUM RDWSD 44.1 35.0 - 46.0 fL KALEENER HERMESENNI UM RDWCV 13.3 10.9 - 14.4 % YANELIS MIRZAENNIU M MPV 11.5 9.0 - 12.0 fL YANELIS HEARNIU M Specimen Anatomical Collection Method Collection Time Receive d Time (Source) Location / / Volume Laterality Blood specimen 09/12/2011 12:43 2 (specimen) PM EDT 12:48 PM EDT Resulting Agency Comment Spec In Lab Alan Livingston MD HEMATOLOGY ORDERABLES Performing Organization Address City/State/[place] [address] YANELIS SALCIDO documented in this encounter Visit Diagnoses Diagnosis Chronic lymphoid leukemia, without menti on of having achieved remission(204.10) Chronic lymphoid leukemia, without menti on of having achieved remission CLL (chronic lymphocytic leukemia) Chronic lymphoid leukemia, without menti on of having achieved remission documented in this encounter Care Teams Plate Colorer Relationship Specialty Start Date End Date Berkley Madrigal MD PCP - General 04/13/10 02/15/18 AYLEEN D [address] [place] [address] documented as of this encounter
--- OUTSIDE RECORDS SUMMARY | 2022-02-11 01:15 | XMS_ITS | Encounter Summary ---
:1950 Author Organization [facility] [place] [address] Care Team Providers Name Role Phone Berkley Madrigal MD Primary Care Provider Encounter Details Date Type Department Care Team Description 05/24/2010 Hospital Encounter Laboratory Alan Livingston MD [facility] [place] [address] HEMATOLOGY/ONCOLOGY [phone] DEPT. [place], [place] [address] (Wo rk) Social History Tobacco [...] Fischer Oncology [facility] ONCOLOGY [place], [place] [address] (Shana hewitt) 02/11/2022 TH Visit (TeleHealth) Hematology and Ángel Fischer Oncology [facility] DR UMANA [place], [place] [address] (Shana hewitt) 02/11/2022 Infusion Hematology and Oncology 02/11/2022 Office Visit Hematology and Jazzy Armendariz R D Oncology [facility] HEMATOLOGY AND ONCOLOGY [place], [place] [address] (Wo rk) 02/22/2022 TH Visit (TeleHealth) Hematology and Yaquelin Celis Oncology E, [facility] HEMATOLOGY AND ONCOLOGY [place], [place] [address] (Wo rk) 02/25/2022 Office Visit Hematology Ángel Kimbrough Oncology MD [facility] ONCOLOGY [place], [place] [address] (Wo rk) 02/25/2022 Infusion Hematology and Oncology 03/10/2022 Scheduled View Only Obstetrics and Nurse, Julian COLEMAN, value stream leader 03/10/2022 Office Visit Obstetrics and Shazia Whitley, Gynecology [facility] UROGYNECOLOGY [place], [place] [address] (Wo rk) 03/11/2022 Office Visit Hematology and Ángel Fischer MD [facility] [place] [address] Oncology Alyssa Joseph[address] MEDICAL ONCOLOGY [place], [place] [phone] 03/11/2022 Infusion Hematology and Oncology 03/25/2022 Office Visit Hematology and Alyssa Joseph Oncology [address] MEDICAL ONCOLOGY [place], [place] [phone] (Wo rk) 03/25/2022 Infusion Hematology and Oncology 03/31/2022 Office Visit Hematology and Alan Livingston M D [facility] HEMATOLOGY/[place] [address] Oncology [facility] [address] 04/08/2022 Office Visit Hematology and Ángel Fischer MD [facility] [place] [place] [address] Oncology Alyssa Joseph, [employer] [address] [place] [address] DR MEDICAL ONCOLOGY [place], [place] [address] 04/08/2022 Infusion Hematology and Oncology documented as of this encounter Visit Diagnoses Not on filedocumented in this encounter Care Teams Admissions Officer Relationship Specialty Start Date End Date Berkley Madrigal MD PCP - General 04/13/10 02/15/18 AYLEEN Katarina [address] [place] [address] documented as of this encounter
--- OUTSIDE RECORDS SUMMARY | 2022-02-11 01:15 | XMS_ITS | Encounter Summary ---
:1950 Author Organization [facility] Address [facility] [place] [address] Care Team Providers Name Role Phone Berkley Madrigal MD Primary Care Provider Encounter Details Date Type Department Care Team Description 05/24/2010 Follow-Up Hematology and Oncology at Nilam Calles APRN [facility] Katarina evangelista HEMATOLOGY/[place] [address] DEPT. [phone] [place], [place] [address] (Wo rk) Social History Tobacco [...] Kimbrough Oncology [facility] ONCOLOGY [place], [place] [address] (Wo rk) 02/11/2022 TH Visit (TeleHealth) Hematology Ángel Kimbrough Oncology [facility] DR UMANA [place], [place] [address] (Wo rk) 02/11/2022 Infusion Hematology and Oncology 02/11/2022 Office Visit Hematology and Jazzy Armendariz R D Oncology [facility] CESAR HEMATOLOGY AND ONCOLOGY [place], [place] [address] (Wo rk) 02/22/2022 TH Visit (TeleHealth) Hematology and Yaquelin Celis Oncology E, [facility] HEMATOLOGY AND ONCOLOGY [place], [place] [address] (Wo rk) 02/25/2022 Office Visit Hematology Ángel Kimbrough Oncology [facility] DR UMANA [place], [place] [address] (Wo rk) 02/25/2022 Infusion Hematology and Oncology 03/10/2022 Scheduled View Only Obstetrics and Nurse, Obgyn II, civil cad tech 03/10/2022 Office Visit Obstetrics and Shazia Whitley Gynecology [facility] UROGYNECOLOGY [place], [place] [address] (Wo rk) 03/11/2022 Office Visit Hematology and Ángel Fischer MD [facility] [place] [address] Oncology Alyssa Joseph[address] MEDICAL ONCOLOGY [place], [place] [phone] 03/11/2022 Infusion Hematology and Oncology 03/25/2022 Office Visit Hematology and Alyssa Joseph, Oncology [address] MEDICAL ONCOLOGY [place], [place] [phone] (Wo rk) 03/25/2022 Infusion Hematology and Oncology 03/31/2022 Office Visit Hematology and Alan Livingston M D [facility] DR HEMATOLOGY/[place] [address] Oncology [facility] [address] 04/08/2022 Office Visit Hematology and Ángel Fischer MD [facility] [place] [address] Oncology Alyssa Joseph[address] MEDICAL ONCOLOGY [place], [place] [phone] 04/08/2022 Infusion Hematology and Oncology documented as of this encounter Visit Diagnoses Not on filedocumented in this encounter Care Teams Heavy Equipment Rental Associate Relationship Specialty Start Date End Date Berkley Madrigal MD PCP - General 04/13/10 02/15/18 AYLEEN Bray [address] [place] [address] documented as of this encounter
--- OUTSIDE RECORDS SUMMARY | 2022-02-11 01:15 | XMS_ITS | Encounter Summary ---
:1950 Author Organization [facility] [place] [address] Care Team Providers Name Role Phone Berkley Madrigal MD Primary Care Provider Encounter Details Date Type Department Care Team Description 05/24/2010 Procedure visit Hematology and Oncol ogjimmy at [facility] [place] [address] Social History Tobacco Use Types Packs/Day [...] Only Hematology Ángel Kimbrough Oncology [facility] ONCOLOGY [place], [place] [address] (Wo rk) 02/11/2022 TH Visit (TeleHealth) Hematology Ángel Kimbrough Oncology [facility] DR UMANA [place], [place] [address] (Wo rk) 02/11/2022 Infusion Hematology and Oncology 02/11/2022 Office Visit Hematology and Jazzy Armendariz R D Oncology [facility] CESAR HEMATOLOGY AND ONCOLOGY [place], [place] [address] (Wo rk) 02/22/2022 TH Visit (TeleHealth) Hematology and Yaquelin Celis Oncology E, [facility] HEMATOLOGY AND ONCOLOGY [place], [place] [address] (Wo rk) 02/25/2022 Office Visit Hematology Ángel Kimbrough Oncology [facility] DR UMANA [place], [place] [address] (Wo rk) 02/25/2022 Infusion Hematology and Oncology 03/10/2022 Scheduled View Only Obstetrics and Nurse, Julian COLEMAN, tunnel elastic operator chainstitch 03/10/2022 Office Visit Obstetrics and Shazia Whitley Gynecology SIGNAL OPERATOR [facility] UROGYNECOLOGY [place], [place] [address] (Wo rk) 03/11/2022 Office Visit Hematology and Ángel Fischer MD [facility] [place] [address] Oncology Alyssa Joseph[address] MEDICAL ONCOLOGY [place], [place] [phone] 03/11/2022 Infusion Hematology and Oncology 03/25/2022 Office Visit Hematology and Alyssa Joseph, Oncology [address] ONCOLOGY [place], [place] [phone] (Wo rk) 03/25/2022 Infusion Hematology and Oncology 03/31/2022 Office Visit Hematology and Alan Livingston M D [facility] DR HEMATOLOGY/[place] [address] Oncology [facility] [address] 04/08/2022 Office Visit Hematology and Ángel Fischer MD [facility] [place] [address] Oncology Alyssa Joseph[address] MEDICAL ONCOLOGY [place], [place] [address] 04/08/2022 Infusion Hematology and Oncology documented as of this encounter Visit Diagnoses Not on filedocumented in this encounter Care Teams Visual Basic Programmer Relationship Specialty Start Date End Date Berkley Madrigal MD PCP - General 04/13/10 02/15/18 AYLEEN Bray [address] [place], [place] [phone] documented as of this encounter
--- OUTSIDE RECORDS SUMMARY | 2022-02-11 01:15 | XMS_ITS | Encounter Summary ---
:1950 Author Organization [facility] Address [facility] [address] Care Team Providers Name Role Phone Berkley Madrigal MD Primary Care Provider Encounter Details Date Type Department Care Team Description 05/24/2010 Follow-Up Hematology and Oncology at CLINIC, DR JODIE Mckeon [facility] Alan Livingston MD [facility] HEMATOLOGY/[place] [address] [facility] [place] [address] Social History Tobacco Use Types Packs/Day [...] Only Hematology Ángel Kimbrough Oncology [facility] ONCOLOGY [place], [place] [address] (Wo rk) 02/11/2022 TH Visit (TeleHealth) Hematology Ángel Kimbrough Oncology [facility] DR UMANA [place], [place] [address] (Wo rk) 02/11/2022 Infusion Hematology and Oncology 02/11/2022 Office Visit Hematology and Jazzy Armendariz R D Oncology [facility] CESAR HEMATOLOGY AND ONCOLOGY [place], [place] [address] (Wo rk) 02/22/2022 TH Visit (TeleHealth) Hematology and Yaquelin Celis Oncology E, [facility] HEMATOLOGY AND ONCOLOGY [place], [place] [address] (Wo rk) 02/25/2022 Office Visit Hematology Ángel Kimbrough Oncology [facility] DR UMANA [place], [place] [address] (Wo rk) 02/25/2022 Infusion Hematology and Oncology 03/10/2022 Scheduled View Only Obstetrics and Nurse, Obgyn II, bank secrecy act officer 03/10/2022 Office Visit Obstetrics and Shazia Whitley Gynecology [facility] UROGYNECOLOGY [place], [place] [address] (Wo rk) 03/11/2022 Office Visit Hematology and Ángel Fischer MD [facility] [place] [address] Oncology Alyssa Joseph[address] MEDICAL ONCOLOGY [place], [place] [phone] 03/11/2022 Infusion Hematology and Oncology 03/25/2022 Office Visit Hematology and Alyssa Joseph, Oncology [address] MEDICAL ONCOLOGY [place], [place] [phone] (Wo rk) 03/25/2022 Infusion Hematology and Oncology 03/31/2022 Office Visit Hematology and Alan Livingston M D [facility] DR HEMATOLOGY/[place] [address] Oncology [facility] [address] 04/08/2022 Office Visit Hematology and Ánegl Fischer MD [facility] [place] [address] Oncology Alyssa Joseph[address] MEDICAL ONCOLOGY [place], [place] [phone] 04/08/2022 Infusion Hematology and Oncology documented as of this encounter Visit Diagnoses Not on filedocumented in this encounter Care Teams Vice President Regulatory Relationship Specialty Start Date End Date Berkley Madrigal MD PCP - General 04/13/10 02/15/18 AYLEEN Bray [address] [place] [address] documented as of this encounter
[2022-02-11] MEDS: Normal Saline Flush 10 ML SYR IVP (10:10)
[2022-02-11 20:17] LABS: CEA 693.3 ng/mL (See Note)
== END 2022-02-18 23:59 | disposition home or self-care (01) ==
LOC: INF 00:34
PROVIDERS: PCP Neuromusculoskeletal Medicine & OMM; Visit Provider Internal Medicine Hematology & Oncology
DX: C18.2 Malignant neoplasm of ascending colon (principal); Z45.2 Encounter for adjustment and management of vascular access device
CPT/HCPCS: 36591; 82378

== ENCOUNTER 2022-03-04 01:13 | Outpatient (RCR) | payer MEDICARE, SELFPAY ==
[2022-03-04] MEDS: Normal Saline Flush 10 ML SYR IVP (10:41)
[2022-03-04 10:50] LABS: HCT 41.2 % (36.0-46.0); HGB 12.3 g/dL (11.2-15.7); MCH 25.6 pg (27.0-33.0); MCHC 29.9 % (32.0-36.0); MCV 86 fL (80-95); MPV 10.8 fL (8.0-11.0); Platelet Count 194 10^3/uL (130-400); RBC 4.81 10^6/uL (3.93-5.22); RDW-SD 53.1 fL
[2022-03-04 11:03] LABS: Absolute Eosinophil Count 0.63 10^3/uL (0.0-0.7); Absolute Lymphocyte Count 58.39 10^3/uL (1.2-3.4); Absolute Monocyte Count 1.88 10^3/uL (0.1-0.8); Absolute Neutrophil Count 1.88 10^3/uL (1.2-6.7); Atypical Lymphocytes % 1; Diff Comment Manual Differential; RBC Morphology Normal; WBC 62.78 10^3/uL (4.4-10.8)
[2022-03-04 11:51] LABS: ALT 26 U/L (14-59); AST 19 U/L (15-37); Albumin 3.9 g/dL (3.4-5.0); Alkaline Phosphatase 71 U/L (46-116); BUN 16 mg/dL (7-18); Bilirubin, Total 0.4 mg/dL (0.2-1.0); CREATININE 0.8 mg/dL (0.55-1.02); Calcium 9.3 mg/dL (8.5-10.1); Chloride 105 mmol/L (98-107); Estimated GFR 78.24 (mL/min/1.73m2); FREE T4 0.89 ng/dL (0.76-1.46); Glucose 111 mg/dL (74-106); Potassium 3.7 mmol/L (3.5-5.1); Sodium 142 mmol/L (136-145); TSH 2.15 uIU/mL (0.36-3.74); Total Protein 7.1 g/dL (6.4-8.2)
[2022-03-04 23:08] LABS: CEA 1081.3 ng/mL (See Note)
== END 2022-03-21 23:59 | disposition home or self-care (01) ==
LOC: INF 01:13
PROVIDERS: PCP Neuromusculoskeletal Medicine & OMM; Visit Provider Internal Medicine Hematology & Oncology
DX: Z45.2 Encounter for adjustment and management of vascular access device (principal); C18.9 Malignant neoplasm of colon, unspecified; C78.7 Secondary malignant neoplasm of liver and intrahepatic bile duct; Z79.899 Other long term (current) drug therapy
CPT/HCPCS: 36591; 80053; 82378; 84439; 84443; 85025

== ENCOUNTER 2022-04-15 00:56 | Outpatient (RCR) | payer MEDICARE, SELFPAY ==
--- OUTSIDE RECORDS SUMMARY | 2022-03-25 01:24 | XMS_ITS | Clinical Summary ---
:1950 Author Organization [facility] Address [address] [place] [address] Care Team Providers Name Role Phone Berkley Madrigal MD Primary Care Provider Unavailable Encounters Date Type Specialty Care Team Description 03/04/2022 Lab Requisition Clinical Laboratory Outr Resulting Lab, Provider 02/11/2022 Lab Requisition Clinical Laboratory Outr Resulting Lab, Provider 12/31/2021 Lab Requisition Clinical Laboratory Blayne Shrestha En counter for other MD Sabino general examina tion from Last 3 Months Social History Tobacco Use Types Packs/Day Years Used Date Never Assessed Sex Assigned at Date Recorded Not on file Plan of Treatment Health Maintenance Due Date Last Done Comments Hepatitis C Screen 1950 COVID-19 Vaccine (#1) 1950 Fall Risk Screening 2014 Procedures Procedure Name Priority Date/Time Associated Diagnosis Comme nts CEA Routine 03/04/2022 10:25 Results for this EDT procedure are i n the results section. CEA Routine 02/11/2022 9:55 EDT Results for this procedure are i n the results section. SURGICAL PATHOLOGY Today 12/30/2021 18:08 Resul ts for this EDT procedure are i n the results section. from Last 3 Months Results CEA (03/04/2022 10:25 EDT)Only the most recent of2 resultswithin the time period is included. CEA 1,081.3 See Note [facility] Comment: ng/mL LABORATORY % Distribution of [...] Address City/State/ZIP Code Phon e Number [facility] LABORATORY [address] [place] [address] SERVICES SURGICAL PATHOLOGY (12/30/2021 18:08 EDT) Amendment Comment This amendment is issued [facility] to correct the margin CENTER status. The original LABORATORY report reported Tumor SERVICES involves soft tissue and lymphovascular spaces at vascular pedicle margin. This statement is removed, as the vascular pedicle is not a true margin, and Tumor involves lymphovascular spaces and soft tissue at the vascular pedicle was added to the diagnostic line. These changes were discussed with Dr. Ángel Fischer ([facility]) on 02/11/22. The remainder of the report remains unchanged. Note to Patient The following [facility] pathology results have CENTER been [...] pN2a LABORATORY - Margins: SERVICES - Tumor close (2-3 mm) to radial margin, but negative . - Distal and proximal margins negative for tumor. - Extensive lymphovascular invasion is present. - Two tumor soft tissue deposits are identified. - Tumor involves lymphovasc ular spaces and soft tissue at the vascular pedicle. - Loss of MLH1 and PMS2 and retained expression of MSH2 and MSH6 proteins, by immunohistochemistry. - Metastatic carcinoma involving five of twenty-two ly mph nodes (10/10). - Appendix with fibrous obliteration. 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 See comment. Diagnosis Comment Pallet Assembler slides of thi s case were reviewed at the gastrointestinal/liver intradepartmental consultation conference (AA, ). This case was reviewed in consultation by Dr. Keron Srinivasan who has expertise [facility] in hematopathology, and he donal cox with the diagnosis of small lymphocytic lymphoma. CENTER LABORATORY SERVICES RESULTS OF IMMUNOHISTOCHEMIC AL STAINING: Loss of MLH1 and PMS2 and retained expression of MSH2 and MSH6 proteins TISSUE SUBMITTED: Formalin f ixed paraffin embedded tissue block labelled ([id number]), block (A6) TUMOR TYPE: Invasive adenocarcinoma INTERPRETATION: [...] notice. ANTIBODY (CLONE) (BLOCK): RESULT MLH1 (M1, [place]) (block A6): Loss of expression in t he tumor PMS2 (A16-4, [place]) (block A6): Loss of expression i n the tumor MSH2 ([id number], [place]) (block A6): Retained express ion in tumor MSH6 (SP93, [place]) (block A6): Retained expression i n tumor Internal controls: Adequate Immunoperoxidase stains were performed on this case to further characterize the lymphoid lesion. ANTIBODY(CLONE)(BLOCK):RESULT CD3 (SP7, [employer]) (A22): Highlights backgro und T cells CD20 (L26, [place]) (A22): Highlights neoplastic B isaac ls CD5 (SP19, [place]) (A22): P ositive in neoplastic B cells; Highlights background T cells LEF-1 (EP310, Cell [employer]) ( A22): Positive in neoplastic B cells; Highlights background T cells Cyclin D1(SP4-R, [place]) (A22): Negative CD10 (SP67, [place]) (A22): Positive in germinal cente r BCL-2 [...] characteristics have been de termined by [facility] and/or by the referring laboratory. The [...] clinical laboratory testing. Attestation There was significant [facility] ent resident/fellow CENTER electronical ly involvement in the LABORATORY signed by Toni, diagnostic evaluation of SERVICES Raul Kellogg MD on this case. By the 02/11/2022 at 1333 signature below, the Electro nically attending physician signed leona Muñoz, certifies that they have Raul Kellogg MD on personally conducted a 2021 at 1222 gross and/or microscopic examination of the described specimens and rendered or confirmed the above diagnosis. Synoptic COLON AND RECTUM: Resection, Including Transanal Disk Excision of Rectal Neoplasms [facility] COLON AND RECTUM: RESECTION - [...] Distance of Tumor from Margin: ?2-3 mm LYMPH NODES ?? Number of Lymph Nodes Involved: ?5 ?? Number of Lymph Nodes Examined: ?22 PATHOLOGIC STAGE CLASSIFICATION (pTNM, AJCC 8th Editio n) ?? Primary Tumor (pT): ?pT3 ?? Regional Lymph Nodes (pN): ?pN2a ADDITIONAL FINDINGS ?? Additional Pathologic Findings: ?Adenoma(s) Clinical History Right colon lesion [facility] LABORATORY SERVICES Gross Description A. [facility] Received in formalin chris d [...] A17- multiple lymph nodes, submitted intact A18- ambulatory service representative grossly positive lymph node A19- ambulatory service representative grossly positive lymph node A20- 1 lymph node, bisected A21- 4 lymph nodes, submitted intact A22- 1 lymph node, bisected A23- 1 lymph node, bisected A24- 4 lymph nodes, submitted intact A25- 4 lymph nodes, submitted intact A26- 2 lymph nodes, submitted intact A27- 2 lymph nodes, submitted intact FACUNDO MONROY(ASCP) 01/03/2022 14:39 Resident/Fellow: Servando Barragan MD [facility] LABORATORY SERVICES Performing Lab [facility] LABORATORY SERVICES Scanned Images [facility] LABORATORY SERVICES Specimen Tissue - Entire sigmoid colon (body stru cture) Performing Organization Address City/State/ZIP Code Phon e Number [facility] LABORATORY [address] [place] [address] SERVICES from Last 3 Months Insurance Payer Benefit Plan Subscriber ID Effective Phone Address Typ e / Group Dates MEDICARE MEDICARE A/B [id number] 2014-Pre [address] edicare GL sent [id number] [place] [address] [facility] [id number] 2016-Pre [id number] Comm ercial [employer] sent [id number] [place] [address]58 68 (Work) AriannaCarol rebolledo Personal/Famil Self 1950 [address] [phone] [place], [place] [address] (Work) AriannaCarol day Personal/Famil Self 1950 [address] [phone] [place], [place] [address] (Work) Carol Keller Personal/Famil Self 1950 [address] [phone] [place], [place] [address] (Work) AriannaCarol rebolledo Personal/Famil Self 1950 [address] [phone] [place], [place] [address] (Work) AriannaCarol Personal/Famil Self 1950 [address] [phone] [place], [place] [address] (Work) AriannaCarol Personal/Famil Self 1950 [address] [phone] MARY TORRES [phone] (Work) NilesCarol Personal/Famil Self 1950 [address] (Home) [address] [phone] MARY TORRES [phone] (Work) Care Teams Manager Education Relationship Specialty Start Date End Date Berkley Madrigal MD PCP - General 01/16/09
--- OUTSIDE RECORDS SUMMARY | 2022-03-25 01:25 | XMS_ITS | Encounter Summary ---
:1950 Author Organization [facility] Address [address] [place] [address] Care Team Providers Name Role Phone Berkley Madrigal MD Primary Care Provider Unavailable Encounter Details Date Type Department Care Team Description 11/26/2021 Lab Requisition [facility] Outr Resulting Lab, Pathology & Laboratory Provider [facility] [address] [place], [place] [id number] Social History Tobacco Use Types Packs/Day Years [...] Albumin % 65.2 55.8 - 66.1 % [facility] LABORATORY SERVICES Albumin g/dL 4.0 3.6 - 5.2 g/dL [facility] LABORATORY SERVICES Alpha-1 % 4.8 2.9 - 4.9 % [facility] LABORATORY SERVICES Alpha-1 g/dL 0.30 0.15 - 0.40 [facility] g/dL LABORATORY SERVICES Alpha-2 % 12.1 (H) 7.1 - 11.8 % [facility] LABORATORY SERVICES Alpha-2 g/dL 0.80 0.50 - 1.00 [facility] g/dL LABORATORY SERVICES Beta % 11.3 8.4 - 13.1 % [facility] LABORATORY SERVICES Beta g/dL 0.70 0.60 - 1.20 [facility] g/dL LABORATORY SERVICES Gamma % 6.6 (L) 11.1 - 18.8 % [facility] LABORATORY SERVICES Gamma g/dL 0.40 (L) 0.60 - 1.60 [facility] g/dL LABORATORY SERVICES SPEP Comment No apparent [facility] monoclonal protein LABORATORY SERVICES seen on serum electrophoresisComm ent: See scanned/supplementa ry report. Total Protein 6.2 (L) 6.3 - 8.2 g/dL [facility] LABORATORY SERVICES Specimen Blood - Venous blood (substance) Narrative This result has an attachment that is no t available. Performing Organization Address City/State/ZIP Code Phon e Number [facility] LABORATORY [address] [place] [address] SERVICES PROTEIN, TOTAL (11/26/2021 11:20 EDT) Specimen Blood - Venous blood (substance) Performing Organization Address City/State/ZIP Code Phon e Number [facility]OR[facility] [address] [place] [address] SERVICES HAPTOGLOBIN (11/26/2021 11:20 EDT) Pathologist Sig nature Haptoglobin 121 32 - 197 mg/dL [facility] LABORAT ORY SERVICES Specimen Blood - Venous blood (substance) Performing Organization Address City/State/ZIP Code Phon e Number [facility]OR[facility] [address] [place] [address] SERVICES documented in this encounter Visit Diagnoses Not on filedocumented in this encounter Care Teams Call Or Contact Centre Team Leader Relationship Specialty Start Date End Date Berkley Madrigal MD PCP - General 01/16/09 documented as of this encounter
--- OUTSIDE RECORDS SUMMARY | 2022-03-25 01:25 | XMS_ITS | Encounter Summary ---
:1950 Author Organization [facility] Address [address] [place] [address] Care Team Providers Name Role Phone Berkley Madrigal MD Primary Care Provider Unavailable Encounter Details Date Type Department Care Team Description 12/20/2021 Lab Requisition [facility] Outr Resulting Lab, Pathology & Laboratory Provider [facility] [address] [place] [address] Social History Tobacco Use Types Packs/Day Years [...] (12/20/2021 14:39 EDT) CEA 281.2 See Note [facility] Comment: ng/mL LABORATORY % Distribution of [...] e Number [facility] LABORATORY [address] [place] [address] SERVICES documented in this encounter Visit Diagnoses Not on filedocumented in this encounter Care Teams Glass Blowing Instructor Relationship Specialty Start Date End Date Berkley Madrigal MD PCP - General 01/16/09 documented as of this encounter
--- OUTSIDE RECORDS SUMMARY | 2022-03-25 01:25 | XMS_ITS | Encounter Summary ---
:1950 Author Organization [facility] Address [address] [place] [address] Care Team Providers Name Role Phone Unavailable Primary Care Provider Unavailable Encounter Details Date Type Department Care Team Description 01/08/2009 Orders Only [facility] Berkley Madrigal , Laboratory Services - Zulema ALEGRIA [address] [address] Social History Tobacco Use Types [...] SAVAGE Report: ? LAB Reports generated via [email or web address] interface contain original data; ? however they [...] ?? Department of Pathology and Laboratory Medicine, [facility], ? Radha Guaman. ??It has not been [...] City/State/ZIP Code Phon e Number [facility] LABORATORY [address] [place] [address] SERVICES [facility] [address] [place] [address] documented in this encounter Visit Diagnoses Not on filedocumented in this encounter
--- OUTSIDE RECORDS SUMMARY | 2022-03-25 01:25 | XMS_ITS | Encounter Summary ---
:1950 Author Organization [facility] Address [address] [place] [address] Care Team Providers Name Role Phone Berkley Madrigal MD Primary Care Provider Unavailable Encounter Details Date Type Department Care Team Description 03/04/2022 Lab Requisition [facility] Outr Resulting Lab, Pathology & Laboratory Provider [facility] [address] [place], [place] [address] Social History Tobacco Use Types Packs/Day Years Used Date Never Assessed Sex Assigned at Date Recorded Not on file documented as of this encounter Plan of Treatment Not on filedocumented as of this encounter Procedures Procedure Name Priority Date/Time Associated Diagnosis Comme nts CEA Routine 03/04/2022 10:25 EDT Results for this procedure are i n the results section . documented in this encounter Results CEA (03/04/2022 10:25 EDT) CEA 1,081.3 See Note [facility] Comment: ng/mL LABORATORY % Distribution of [...] Organization Address City/State/ZIP Code Phon e Number [facility] LABORATORY [address] [place] [address] SERVICES documented in this encounter Visit Diagnoses Not on filedocumented in this encounter Care Teams Manufacturing Engineer Paint Relationship Specialty Start Date End Date Berkley Madrigal MD PCP - General 01/16/09 documented as of this encounter
--- OUTSIDE RECORDS SUMMARY | 2022-03-25 01:25 | XMS_ITS | Encounter Summary ---
:1950 Author Organization [facility] [place] [address] Care Team Providers Name Role Phone Mook Coffey DO Primary Care Provider Encounter Details Date Type Department Care Team Description 02/08/2022 External Results Medical Records Provider, Scanning [facility] [place] [address] Social History Tobacco Use Types Packs/Day [...] Encounters Date Type Specialty Care Team Description 03/25/2022 Office Visit Ángel Hill MD [facility] [place] [address] Oncology Alyssa Joseph[address] [address] 03/25/2022 Infusion Hematology and Oncology 03/31/2022 Office Visit Hematology and Alan Livingston M D [facility] DR HEMATOLOGY/[place] [address] Oncology Nilam So APRN [facility] HEMATOLOGY/[place] [address] 04/15/2022 Office Visit Ángel Hill Oncology [facility] ONCOLOGY [place], [place] [address] (Wo rk) 04/15/2022 Infusion Hematology and Oncology 04/15/2022 Office Visit Hematology and Jazzy Armendariz R D Oncology [facility] [address] HEMATOLOGY AND ONCOLOGY [place], [place] [address] (Wo rk) 09/05/2022 Scheduled View Only Obstetrics and Nurse, Julian COLEMAN, family day care worker 09/05/2022 Office Visit Obstetrics and Shazia Whitley APRN Gynecology [facility] UROGYNECOLOGY [place], [place] [address] (Wo rk) documented as of this encounter Procedures Procedure [...] on filedocumented in this encounter Care Teams Cork Sorter Relationship Specialty Start Date End Date Mook Coffey DO PCP - General Family Medicine 02/16/[address] [place] [phone] documented as of this encounter
--- OUTSIDE RECORDS SUMMARY | 2022-03-25 01:25 | XMS_ITS | Encounter Summary ---
:1950 Author Organization [facility] Address [address] [place] [address] Care Team Providers Name Role Phone Mook Coffey DO Primary Care Provider Reason for Visit Reason Onset Date Comments Questions 01/28/2022 Re Bivalent vaccine Encounter Details Date Type Department Care Team Description 01/28/2022 Telephone Hematology/Oncology at [facility] (Re Bivalent [facility] Navneet Isaac RN vaccine) [address] [place] [phone] Social History Tobacco Use Types Packs/Day [...] she would be able to go to [place] for a booster clinic today. She said the clinic closes at4pm. She is wondering if we can give her a call to let her know if we advise her going now, before she begins treatment in a few weeks. documented in this encounter Plan of Treatment Upcoming Encounters Date Type Specialty Care Team Description 03/25/2022 Office Visit Hematology and Ángel Fischer MD [facility] [place] [address] Oncology Alyssa Joseph APR[address] [place] [address] 03/25/2022 Infusion Hematology and Oncology 03/31/2022 Office Visit Hematology and Alan Livingston M D [facility] HEMATOLOGY/[place] [address] Oncology Nilam So APRN [facility] HEMATOLOGY/[place] [address] 04/15/2022 Office Visit Ángel Hill Oncology [facility] ONCOLOGY [place], [place] [address] (Wo rk) 04/15/2022 Infusion Hematology and Oncology 04/15/2022 Office Visit Hematology and Jazzy Armendariz R D Oncology [facility] HEMATOLOGY AND ONCOLOGY [place], [place] [address] (Wo rk) 09/05/2022 Scheduled View Only Obstetrics and Nurse, Julian COLEMAN RNwound treatment rn 09/05/2022 Office Visit Obstetrics and Shazia Whitley APRN Gynecology [facility] UROGYNECOLOGY [place], [place] [address] (Wo rk) documented as of this encounter Visit Diagnoses Not on filedocumented in this encounter Care Teams Table Cover Folder Relationship Specialty Start Date End Date Mook Coffey DO PCP - General Family Medicine 02/16/[address] [place] [phone] documented as of this encounter
--- OUTSIDE RECORDS SUMMARY | 2022-03-25 01:25 | XMS_ITS | Encounter Summary ---
:1950 Author Organization [facility] [place] [address] Care Team Providers Name Role Phone Mook Coffey DO Primary Care Provider Reason for Visit Reason Comments Chemotherapy Cycle 1, Day 1 Treatment/Therapy Plan Authorization (Routine) - Authorized Specialty Diagnoses / Procedures Referred By Contact Refer red To Contact Diagnoses Colon cancer metastasized to liver Ángel Fischer MD [facility] Hem Onc 3k Procedures INFUSION [facility] [place] [address] [place] [address] Fax: Referral ID Status Reason Start Date Expiration Date Visits V isits Requested Authorized [id number] Authorized 02/11/2022 02/11/2023 99 99 Encounter Details Date Type Department Care Team Description 02/11/2022 Infusion Hematology Oncology at [facility] kendra cancer metastasized to [address] [phone] Social History Tobacco Use [...] documented as of this encounter Progress Notes Navneet Burden RN - 02/11/2022 12:00 PM EDT INFUSION THERAPY ADMINISTRATION NOTES DIAGNOSIS: Mets colon cancer CYCLE #1: Day 1 REASON FOR VISIT: Pembrolizumab SUBJECTIVE Carol Kelelr offers no complaints. She met with Dr Fischer and is ready to start treatment. OBJECTIVE LAB DATA: Done 02/09/22 at [facility] for treatment. IV ACCESS: Implanted port Pre administration: Chemotherapy orders independently verified for drug name, route, and dosage per patient's height, weight and BSA by Navneet Burden, RN & On-site pharmacist. REACTIONS (DESCRIPTION, TIME, INTERVENTION AND EFFECTIVENESS) none ASSESSMENT Anahi was awake, alert and tolerated treatment well. PLAN Return to clinic per routine. Pt. teaching instructions included: During clinic hours (8am-5pm Monday-Monday): pt. can call [phone] with questions or concerns. After clinic hours (5pm-8am Monday-Monday and weekends) pt can call [phone] and ask for the switch technician/oncologist therapist occupational. Carol Keller verbalized understanding of potential side effects from immunotherapy and will call with any further questions or concern. documented in this encounter Plan of Treatment Upcoming Encounters Date Type Specialty Care Team Description 03/25/2022 Office Visit Hematology and Ángel Fischer MD [facility] [place] [address] Oncology Alyssa [email or web address] [place] [address] 03/25/2022 Infusion Hematology and Oncology 03/31/2022 Office Visit Hematology and Alan Livingston M D [facility] HEMATOLOGY/[place] [address] Oncology Nilam So SUPERVISOR INSTANT POTATO PROCESSING [facility] HEMATOLOGY/[place] [address] 04/15/2022 Office Visit Ángel Hill Oncology MD [facility] DR UMANA [place], [place] [address] (Wo rk) 04/15/2022 Infusion Hematology and Oncology 04/15/2022 Office Visit Hematology and Jazzy Armendariz R D Oncology [facility] [address] HEMATOLOGY AND ONCOLOGY [place], [place] [address] (Wo rk) 09/05/2022 Scheduled View Only Obstetrics and Nurse, Julian COLEMAN, roster clerk 09/05/2022 Office Visit Obstetrics and Shazia Whitley APRN Gynecology [facility] UROGYNECOLOGY [place], [place] [address] (Shana rk) documented as of this encounter Visit Diagnoses Diagnosis Colon cancer metastasized to liver Malignant neoplasm of colon, unspecified site Colon cancer metastasized to liver Malignant neoplasm of colon, unspecified site documented in this encounter Administered Medications Inactive Administered Medications - up to 3 most recent administrations Medication Order MAR Action Action Date Dose Rate Site heparin (pf) (porcine) (100 Given 02/11/2022 1:30 PM EDT 500 Uni ts units/mL) flush 5 mL syringe 500 Units 500 Units, Intravenous, ONCE PRN, Starting on Mon02/11/22 at 1213, Until Mon02/11/22 at 1536, Line Care, Refer to Intravenous (IV) Procedure: Accessing Implanted Vascular Access Devices (184) procedure and/or Intravenous (IV) Job Aid: Adult Flushing & Catheter Care (0848) job aid for additional information regarding guidelines and administration., Routine pembrolizumab (Keytruda) 200 mg in New Bag 02/11/2022 12:56 PM EDT 200 mg 216 mL/hr sodium chloride 0.9% 108 mL infusion 200 mg, Intravenous, ONCE, 1 dose, On Mon02/11/22 at 1330, Administer over 30 Minutes, Flush line with NS after each dose., This agent is restricted to outpatient use. Is this drug being given as an outpatient? Yes sodium chloride 0.9 % (flush) (BD PosiFlush Given 02/11/2022 1:30 PM EDT 20 mLs Normal Saline 0.9) flush 5-20 mL 5-20 mL, Intravenous, EVERY 1 MIN PRN, Starting on Mon02/11/22 at 1213, Until Mon02/11/22 at 1536, Line Care, Flush pertains to all indwelling lines. Flush per protocol found in the job aid using the link provided on this medication record. Refer to Intravenous (IV) Job Aid: Adult Flushing & Catheter Care (7169) job aid for additional information regarding guidelines and administration., Routine documented in this encounter Care Teams Manager Farm Relationship Specialty Start Date End Date Mook Coffey DO PCP - General Family Medicine 02/16/[address] [place] [phone] documented as of this encounter
--- OUTSIDE RECORDS SUMMARY | 2022-03-25 01:25 | XMS_ITS | Encounter Summary ---
:1950 Author Organization [facility] Address [address] [place] [place] [address] Care Team Providers Name Role Phone Mook Coffey DO Primary Care Provider Encounter Details Date Type Department Care Team Description 03/24/2022 Travel Social History Tobacco Use Types Packs/Day Years [...] Description 03/25/2022 Office Visit Ángel Hill MD [facility] [place] [address] Oncology Alyssa Joseph[address] [place] [address] 03/25/2022 Infusion Hematology and Oncology 03/31/2022 Office Visit Hematology and Alan Livingston M D [facility] HEMATOLOGY/[place] [address] Oncology Nilam So [facility] HEMATOLOGY/[place] [address] 04/15/2022 Office Visit Ángel Hill Oncology [facility] ONCOLOGY [place], [place] [address] (Wo rk) 04/15/2022 Infusion Hematology and Oncology 04/15/2022 Office Visit Hematology and Jazzy Armendariz R D [facility] HEMAT[facility]Y AND ONCOLOGY [place], [place] [address] (Wo rk) 09/05/2022 Scheduled View Only Obstetrics and Nurse, Julian COLEMAN, integration software engineer 09/05/2022 Office Visit Obstetrics and Shazia Whitley APRN Gynecology [facility] UROGYNECOLOGY [place], [place] [address] (Wo rk) documented as of this encounter Visit Diagnoses Not on filedocumented in this encounter Care Teams Professional Services Consultant Relationship Specialty Start Date End Date Mook Coffey DO PCP - General Family Medicine 02/16/[address] [place] [address] [phone] documented as of this encounter
--- OUTSIDE RECORDS SUMMARY | 2022-03-25 01:25 | XMS_ITS | Encounter Summary ---
:1950 Author Organization [facility] Address [address] [place] [address] Care Team Providers Name Role Phone Berkley Madrigal MD Primary Care Provider Unavailable Encounter Details Date Type Department Care Team Description 02/11/[address] [facility] Outr Resulting Lab, Pathology & Laboratory Provider [facility] [address] [place] [address] Social History Tobacco Use Types Packs/Day Years Used Date Never Assessed Sex Assigned at Date Recorded Not on file documented as of this encounter Plan of Treatment Not on filedocumented as of this encounter Procedures Procedure Name Priority Date/Time Associated Diagnosis Comme nts CEA Routine 02/11/2022 9:55 EDT Results for this procedure are i n the results section . documented in this encounter Results CEA (02/11/2022 9:55 EDT) CEA 693.3 See Note [facility] Comment: ng/mL LABORATORY % Distribution of [...] Organization Address City/State/ZIP Code Phon e Number [facility] LABORATORY [address] [place] [address] SERVICES documented in this encounter Visit Diagnoses Not on filedocumented in this encounter Care Teams Drain Technician Relationship Specialty Start Date End Date Berkley Madrigal MD PCP - General 01/16/09 documented as of this encounter
--- OUTSIDE RECORDS SUMMARY | 2022-03-25 01:25 | XMS_ITS | Encounter Summary ---
:1950 Author Organization [facility] [place] [address] Care Team Providers Name Role Phone Mook Coffey DO Primary Care Provider Encounter Details Date Type Department Care Team Description 03/04/2022 Office Visit Hematology/Oncology PageJazzy RD Colon cancer at [facility] [place], [place] metastasized to liver [address], [place] HEMATOLOGY AND [id number] ONCOLOGY [phone] [place], [place] [address] Social History Tobacco Use Types [...] documented as of this encounter Progress Notes Page, Jazzy Sanchez, RD - 03/04/2022 12:30 PM EDT Nutrition Note Spoke with patient and her son while in infusion today. She is on C2 D1 of pembrolizumab for stage IV colorectal cancer. Patient reports she tolerated first cycle well. She feels she is eating better and has a fairly good appetite. She is drinking one Boost per day. Her weight has remained stable for the past 5 weeks after a period of weight loss. She continues to do her own shopping and cooking. Shehas a son who lives in [facility] and could help her as needed. Wt Readings from Last 10 Encounters: 03/04/22 69.7 kg (153 lb 9.6 oz) 02/11/22 70 kg (154 lb 6.4 oz) 01/27/22 69.6 kg (153 lb 7 oz) 11/25/21 73.9 kg (163 lb) 09/07/21 74.4 kg (164 lb) 07/22/21 74.4 kg (164 lb) 03/09/21 83.5 kg (184 lb) 12/30/20 83.7 kg (184 lb 9.6 oz) 09/07/20 87.1 kg (192 lb) 06/18/20 86.9 kg (191 lb 8 oz) BMI 26.12 Weight stable for the past 5 weeks. 9# loss in 2.5 months (11/25-02/11) (5.3% body weight) - not significant 30 # lost in the past year (16.3% body weight) Medications: Bactrim (for UTI), ferrous sulfate, metamucil daily, tylenol, tums, lomotil prn, temaxepam prn, eliquis, green tea extract, melatonin prn, MVI, vitamin D3 ?? Patient starting cycle 2 of pembrolizumab for stage IV colon cancer. ?? Labs on 03/04: BUN 16, Creat 0.8, Na 142, K 3.7, Ca 9.3, Alb 3.9, TBili 0.4, AlkPhos 71, AST 19, ALT26, TSH 2.15 Nutrition Problem: Related to stage IV colon cancer s/p surgery as evidenced by 9# loss in the recent 2.5 months (5.3% body weight) - not significant and 30 # lost in the past year (16.3% body weight) Improved--Weight stable for the past five weeks Estimated needs based on 70 [id number] kcals (25-35 kcal/kg) 70-105 g protein (1-1.5 g/kg) 1 ml/kcal Nutrition Intervention/Recommendations: * Continue to eat small frequent meals (every 2-3 hours or 6-8 times per day). Patient is aware of high calorie/protein foods to include. * Encouraged continuing with 1 Boost per day. Will f/u in 6 weeks on 04/15. documented in this encounter Plan of Treatment Upcoming Encounters Date Type Specialty Care Team Description 03/25/2022 Office Visit Hematology and Ángel Fischer MD [facility] [address] Oncology Alyssa Joseph, MATHEMATICS DEPARTMENT CHAIR [address] [place] [address] [place] [address] 03/25/2022 Infusion Hematology and Oncology 03/31/2022 Office Visit Hematology and Alan Livingston M D [facility] HEMATOLOGY/[place] [address] Oncology Nilam So [facility] HEMATOLOGY/[place] [address] 04/15/2022 Office Visit Hematology and Ángel Fischer Oncology [facility] ONCOLOGY [place], [place] [address] (Wo rk) 04/15/2022 Infusion Hematology and Oncology 04/15/2022 Office Visit Hematology and Jazzy Armendariz R D [facility] HEMAT[facility] ONCOLOGY [place], [place] [address] (Wo rk) 09/05/2022 Scheduled View Only Obstetrics and NurseJulian II, RN Gynecology 09/05/2022 Office Visit Obstetrics and Shazia Whitley MATHEMATICS DEPARTMENT CHAIR Gynecology [facility] UROGYNECOLOGY [place], [place] [address] (Wo rk) documented as of this encounter Visit Diagnoses Diagnosis Colon cancer metastasized to liver Malignant neoplasm of colon, unspecified site Colon cancer metastasized to liver Malignant neoplasm of colon, unspecified site documented in this encounter Care Teams Rn Burn Relationship Specialty Start Date End Date Mook Coffey DO PCP - General Family Medicine 02/16/[address] [place] [phone] documented as of this encounter
--- OUTSIDE RECORDS SUMMARY | 2022-03-25 01:25 | XMS_ITS | Encounter Summary ---
:1950 Author Organization [facility] [place] [address] Care Team Providers Name Role Phone Mook Coffey DO Primary Care Provider Encounter Details Date Type Department Care Team Description 02/11/2022 Office Visit Hematology/Oncology PageJazzy RD Colon cancer at [facility] metastasized to liver [address] [place], [place] HEMATOLOGY AND [id number] ONCOLOGY [phone] [place], [place] [address] Social History Tobacco Use Types [...] of this encounter Progress Notes Page, Jazzy Sanchez RD - 02/11/2022 12:30 PM EDT [facility] Initial Assessment Patient Name: Carol Keller Diagnosis: stage IV colon cancer Referred by: Ingrid Ramon RD Assessment: HPI Patient Active Problem List Diagnosis Code ??? [...] intrinsic (ISD) N36.42 ??? Pessary maintenance Z46.89 ??? Colon cancer metastasized to liver C18.9, C78.7 Wt Readings from Last 10 Encounters: 02/11/22 70 kg (154 lb 6.4 oz) 01/27/22 69.6 kg (153 lb 7 oz) 11/25/21 73.9 kg (163 lb) 09/07/21 74.4 kg (164 lb) 07/22/21 74.4 kg (164 lb) 03/09/21 83.5 kg (184 lb) 12/30/20 83.7 kg (184 lb 9.6 oz) 09/07/20 87.1 kg (192 lb) 06/18/20 86.9 kg (191 lb 8 oz) 03/02/20 85.7 kg (189 lb) BMI 26.26 Weight stable for the past two weeks 9# loss in the past 2.5 months (5.3% body weight) - not significant 30 # lost in the past year (16.3% body weight) Medications: Bactrim, ferrous sulfate, metamucil daily, tylenol, tums, lomotil prn, temaxepam prn, eliquis, green tea extract, melatonin prn, MVI, vitamin D3 Patient started on pembrolizumab for stage IV colon cancer. Labs on 02/09: Na 140, K 3.7, AST 23, ALT 22, BUN 17, BG 141, Creat 1.13, Ca 8.6, Alb 3.7, TBili 0.3,WBC 68.8H, H/H 11.8/39.7 Nutrition Screen 02/14/2022 01/27/2022 Reason for assessment Unintentional weight loss;Symptom management - Total MST Score - 2 Functional Status 02/14/2022 Appetite Similar compared to usual intake Abdominal pain Present Fatigue Grade 1 Patient reports that her appetite is ok, and she is trying to shift towards eating more small, frequent meals. Patient has low energy/fatigue. She has some abdominal pain. She had a history of diarrhea that resolved once she discontinued taking a PPI. She now takes metamucil and has 2-3 soft BMs daily. Diet History Patient lives a lone and prepares her own meals. She says she has a friend who lives close by who could help with obtaining food. Her adult children live at least an hour away. Patient has diet controlled DM. She tries to keep an eye on her carb intake, but lately has been more focused on eating small, frequent meals and including high calorie foods. She knows to focus on protein foods and likes meat, cheese and eggs. She lost some weight following surgery for colon cancer this summer. She has a protein shake at home that she drinks on most days, she cannot recall which one it is. Patient is active and likes to walk on most days. Nutrition Diagnosis 02/14/2022 Problems Involuntary weight loss related to stage IV colon cancer s/p surgery as evidenced by 9# loss in the past 2.5 months (5.3% body weight) - not significant and 30 # lost in the past year (16.3% body weight) Improved--Weight stable for the past two weeks Estimated needs based on 70 [id number] kcals (25-35 kcal/kg) 70-105 g protein (1-1.5 g/kg) 1 ml/kcal Nutrition Intervention: * Encouraged continuing with her pattern of small frequent meals (every 2-3 hours, or 6-8 small meals per day) * Encouraged consistently drinking Boost Glucose Control or Glucerna once daily if she likes these. * Reviewed high calorie and high protein foods. Monitoring and Evaluation: Will follow up with Mr/s to re-evaluate. I have provided her with my card and contact information should she have any questions in the meantime. Thank you for this consult. Jazzy Armendariz RD documented in this encounter Plan of Treatment Upcoming Encounters Date Type Specialty Care Team Description 03/25/2022 Office Visit Hematology and Ángel Fischer MD [facility] [place] [address] Oncology Alyssa Joseph, PILE DRIVING SUPERVISOR [address] [place] [address] [place] [address] 03/25/2022 Infusion Hematology and Oncology 03/31/2022 Office Visit Hematology and Alan Livingston M D [facility] HEMATOLOGY/[place] [address] Oncology Nilam So, [facility] HEMATOLOGY/[place] [address] 04/15/2022 Office Visit Hematology and Ángel Fischer Oncology [facility] ONCOLOGY [place], [place] [address] (Wo rk) 04/15/2022 Infusion Hematology and Oncology 04/15/2022 Office Visit Hematology and Jazzy Armendariz R D Oncology [facility] HEMAT[facility]Y AND ONCOLOGY [place], [place] [address] (Wo rk) 09/05/2022 Scheduled View Only Obstetrics and NurseJulian II, electric plater 09/05/2022 Office Visit Obstetrics and Shazia Whitley APRN Gynecology [facility] UROGYNECOLOGY [place], [place] [address] (Wo rk) documented as of this encounter Visit Diagnoses Diagnosis Colon cancer metastasized to liver Malignant neoplasm of colon, unspecified site Colon cancer metastasized to liver Malignant neoplasm of colon, unspecified site documented in this encounter Care Teams Personnel Research Psychologist Relationship Specialty Start Date End Date Mook Coffey DO PCP - General Family Medicine 02/16/[address] [place] [address] [phone] documented as of this encounter
--- OUTSIDE RECORDS SUMMARY | 2022-03-25 01:25 | XMS_ITS | Encounter Summary ---
:1950 Author Organization [facility] Address [address] [place] [address] Care Team Providers Name Role Phone Berkley Madrigal MD Primary Care Provider Unavailable Encounter Details Date Type Department Care Team Description 06/28/2021 Lab Requisition [facility] Blayne Shrestha for other Pathology & MD Sabino general examination Laboratory Medicine [address] [place] [address] [address] [place] [address] [place], [place] [id number] Social History Tobacco Use Types Packs/Day Years [...] 14:24 EST) Note to Patient The following [facility] MEDICAL pathology results CENTER have been interpreted LABORATORY by your pathologist SERVICES and may be available to you before your health provider has had the opportunity to review them. Please allow time for your provider to receive these results and explore management options, if applicable. Final Diagnosis A. STOMACH, ANTRUM, BIOPSY: [facility] MEDICA L - Antral-type mucosa with no significant diagnostic ab normality. CENTER LABORATORY B. COLON, RIGHT, RANDOM, BIOPSY: SERVICES - Colonic mucosa with no significant pathologic abnorm ality. C. COLON, LEFT, RANDOM, BIOPSY: - Colonic mucosa with no significant pathologic abnorm ality. Attestation By the signature [facility] MEDICAL Electronica lly below, the attending CENTER signed by Toni physician certifies LABORATORY Sánchez Kellogg MD on that they have 1) SERVICES 06/29/2021 a t 1758 personally conducted a gross and/or microscopic examination of the described specimen(s), and/or personally interpreted the results of laboratory testing of the described specimen(s), and 2) personally rendered or confirmed the above diagnosis. Clinical History Fecal occult blood [facility] MEDICAL positive, change of CENTER bowel habit; EGD; LABORATORY normal; rectocele, SERVICES diverticulosis Gross Description A. [facility] MEDICAL Received in formalin chris [...] 0.1 cm). Entirely submitted in C1. FACUNDO MILAN([place]) 06/29/2021 8:27 Performing Lab [facility] LAB [facility] Scanned Images [facility] Specimen Tissue - Entire left colon (body structu re) Tissue specimen (specimen) - Entire righ t colon (body structure) Tissue specimen (specimen) - Entire left colon (body structure) Performing Organization Address City/State/ZIP Code Phon e Number [facility] [address] [place] [address] SERVICES documented in this encounter Visit Diagnoses Diagnosis Encounter for other general examination documented in this encounter Care Teams Director Critical Care Relationship Specialty Start Date End Date Berkley Madirgal MD PCP - General 01/16/09 documented as of this encounter
--- OUTSIDE RECORDS SUMMARY | 2022-03-25 01:25 | XMS_ITS | Clinical Summary ---
:1950 Author Organization [facility] Address [address] [place] [address] Care Team Providers Name Role Phone Mook Coffey DO Primary Care Provider Allergies Active Allergy Reactions Severity Noted Date Comments Atorvastatin Other (See Comments) 08/04/2016 Muscle cramps Metformin Diarrhea 11/25/2021 Penicillins Rash 05/08/2015 Pantoprazole Diarrhea Low 02/11/2022 Medications Medication Sig Dispensed Refills Start Date End Date Status multivitamin capsule Take 1 capsule by 0 Active mouth daily. cholecalciferol, Take 2,000 mg by 0 Active Vitamin D3, 50 mcg mouth daily. (2,000 unit) Capsule melatonin 3 mg Tab Take 3 mg by mouth 0 Active nightly as needed. Green Tea Extract 500 Take 500 mg by 0 Active mg Cap mouth daily. apixaban (Eliquis) 2.5 Take 2.5 mg by 0 Active mg Tablet mouth 2 times daily. nystatin (MYCOSTATIN) Apply topically 2 60 g 1 07/13/2018 Active Powder times daily. temazepam (Restoril) Take 15 mg by 0 Active 15 mg Capsule mouth nightly as needed for Sleep. diphenoxylate-atropine 4 times daily as 0 Active (Lomotil) 2.5-0.025 mg needed. Tablet acetaminophen Take 650 mg by 0 A ctive (TYLENOL) 650 mg mouth every 8 Tablet Sustained hours as needed Release for Pain. Do not exceed 6 tabs in 24 hours calcium carbonate Take 1 tablet by 0 Active (Tums) 200 mg calcium mouth daily. (500 mg) Tablet, Chewable ferrous sulfate 325 mg Take 325 mg by 0 Active (65 mg iron) Tablet mouth daily. psyllium husk, with Take by mouth. 0 Active sugar, (Metamucil Free) 3 gram/7 gram Powder sulfamethoxazole-trime Take 1 tablet by 0 Active thoprim (Bactrim) mouth 2 times 400-80 mg daily. 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 DRIVER 03/04/2022 Office Visit Hematology and David Armendarizy E, Colon cance r Oncology RD metastasized to liver 03/04/2022 Infusion Hematology and Colon cancer Oncology metastasized to liver 03/04/2022 Office Visit Hematology and Ángel Fischer Colon canc er Oncology MD Dominik metastasized to Alyssa Joseph, liver CANAL DRIVER 03/04/2022 Telephone Hematology and Jayne East Labs Only ( Critical Oncology C, RN WBC) 02/25/2022 Orders Only Hematology and Ezekiel Ricci CLL (chroni c lymphocytic leukemia); Oncology MD Caitlin Malignant neopl asm of ascending colon; Colon cancer me tastasized to liver; Family history of colon cancer 02/22/2022 TH Visit Hematology and Vimal Malignant debo plasm of ascending colon; (TeleHealth) Oncology ROBERT Santoro CLL (chronic lymphocytic leukemia); Colon cancer me tastasized to liver; History of SCC (squamous cell carcinoma) of skin; Family hx of me lanoma; Family history of colon cancer 02/16/2022 Ancillary Radiology Ángel Fischer MD 02/16/2022 Telephone Hematology and Ezekiel Ricci Oncology MD Caitlin 02/15/2022 Telephone Hematology and Jenise, Questions; Ra Oncology Navneet Isaac RN 02/14/2022 Telephone Hematology and Maddie Richardson, Follow-up manager electrical 02/11/2022 Office Visit Hematology and Jazzy Armendariz Daniel, Colon cance r Oncology RD metastasized to liver 02/11/2022 Infusion Hematology and Colon cancer Oncology metastasized to liver 02/11/2022 TH Visit Hematology and Ángel Fischer Colon canc er metastasized to liver; (TeleHealth) Oncology MD Dominik High risk medic ation use 02/09/2022 Ancillary Radiology Ángel Fischer MD 02/09/2022 Telephone Hematology and Kerlinead, Abnormal Lab Oncology Navneet Isaac RN (Critical ) 02/08/2022 Telephone Hematology and Jenise, Questions Oncology Navneet Isaac RN 02/08/2022 External Results Provider, Scanning 02/04/2022 Telephone Hematology and Ángel Fischer Oncology MD Dominik 02/02/2022 Hospital Encounter Lab 01/31/2022 Orders Only Hematology and Ángel Fischer Malignant neoplasm Oncology MD Dominik of ascending co kendra 01/28/2022 Telephone Hematology and Jenise, Graciela (Re Oncology Navneet Isaac RN Bivalent vac [...] of colon, unspecified par t of colon from Last 3 Months Family History Medical History Relation Comments Colon Polyps Brother 1 1 malignant polyp re moved Macular Degeneration Brother 1 Strabismus Brother 1 Melanoma Brother 2 Glaucoma Father borderline glaucoma Lung Cancer Father Breast Cancer Maternal Grandmother Diabetes Maternal Grandmother Colorectal Cancer Maternal Uncle Cataracts Mother Diabetes Mother Hypertension Mother Macular Degeneration Mother Thyroid Disease Mother Colorectal Cancer Other Diabetes Paternal Grandmother Cancer Sister in abdominal area Amblyopia Neg Hx Heart Disease Neg Hx Retinal Detachment Neg Hx Relation Status Comments Brother 1 Alive Brother 2 Alive Father Maternal Grandfather Maternal Grandmother Maternal Uncle Mother Other Paternal Grandfather Paternal Grandmother Sister Social History Tobacco Use Types Packs/Day Years [...] Sign Reading Time Taken Comments Blood Pressure 129/66 03/10/2022 1:52 PM EDT Pulse 67 03/10/2022 1:52 PM EDT Temperature 36.3 ??C (97.4 ??F) 03/10/2022 1:52 PM EDT Respiratory Rate 18 03/04/2022 11:35 AM EDT Oxygen Saturation 99% 03/10/2022 1:52 PM EDT Inhaled Oxygen Concentration - - Weight 69.6 kg (153 lb 8 oz) 03/10/2022 1:52 PM EDT Height 163.3 cm (5' 4.29) 03/04/2022 11:35 AM EDT Body Mass Index 26.11 03/04/2022 11:35 AM EDT Plan of Treatment Upcoming Encounters Date Type Specialty Care Team Description 03/25/2022 Office Visit Hematology and Ripple, Ángel H, MD [facility] [address] Oncology Alyssa Joseph [address] [place] [address] 03/25/2022 Infusion Hematology and Oncology 03/31/2022 Office Visit Hematology and Alan Livingston M D [facility] HEMATOLOGY/[place] [address] Oncology Nilam So [facility] HEMATOLOGY/[place] [address] 04/15/2022 Office Visit Hematology and Ángel Fischer Oncology [facility] [place], [place] [address] (Wo rk) 04/15/2022 Infusion Hematology and Oncology 04/15/2022 Office Visit Hematology and Jazzy Armendariz R D Oncology [facility]AT[facility] AND ONCOLOGY [place], [place] [address] (Wo rk) 09/05/2022 Scheduled View Only Obstetrics and Nurse, Julian COLEMAN tile mechanic helper 09/05/2022 Office Visit Obstetrics and Shazia Whitley APRN Gynecology [facility] UROGYNECOLOGY [place], [place] [address] (Wo rk) Health Maintenance Due Date Last Done Comments Covid-19 Vaccine (#1) 1950 Pneumoccocal Vaccine: 65+ (1 - 1955 PCV) [...] 03/01/2017, 016 Influenza (Flu) vaccine (1 of 1 - 01/20/2022 Influenza standard series) Lipid Screening 03/01/2022 03/01/2017, 12/21/2015 DM Opthalmology Exam 01/17/2023 01/17/2022, 01/31/2020, 07/13/2018, Additional history exists DM Creatinine yearly 03/04/2023 03/04/2022, 01/27/2022, 11/23/2021, Additional history exists Procedures Procedure Name Priority Date/Time Associated Comments Diagnosis COMPREHENSIVE Routine 03/04/2022 Results for th is METABOLIC PANEL procedure ar e in (NON-FASTING) the results section. LAB SCAN 03/04/2022 12:00 Results for this AM EDT procedure are i n the results section. LAB SCAN 03/04/2022 12:00 Results for this AM EDT procedure are i n the results section. CBC (WITH DIFF) Routine 03/04/2022 Results for this procedure are i n the results section. FILM LIBRARY STORAGE Routine 02/16/2022 12:00 Res ults for this ONLY MR ABDOMEN AM EDT procedure ar e in the results section. MRI/MRA SCAN 02/16/2022 12:00 Results for this AM EDT procedure are i n the results section. DIAGNOSTIC RADIOLOGY 02/11/2022 12:00 Res ults for this SCAN AM EDT procedure are i n the results section. DIAGNOSTIC RADIOLOGY 02/10/2022 12:00 Res ults for this SCAN AM EDT procedure are i n the results section. IMPLANTABLE DEVICES 02/10/2022 12:00 Resu lts for this SCAN AM EDT procedure are i n the results section. FILM LIBRARY STORAGE Routine 02/09/2022 12:00 Res [...] from Last 3 Months Results SCAN DOC: LAB (03/04/2022 12:00 AM EDT)Only the most recent of5 resultswithin the time period is included. Narrative 03/04/2022 12:00 AM EDT This result has an attachment that is no t available. Ordered by an unspecified provider. Scanning Provider MEDIA MGR SCAN EXT ORDR/RSLT (ABNORMAL) CBC (with Diff) (03/04/2022) Patholo gist Method Time Signature WBC 62.78 (Critical) RBC 4.81 Hemoglobin 12.3 Hematocrit 41.2 Platelets 194 Neutr Abs (ANC) 1.88 Lymphocyte Abs 58.39 (H) Monocyte Abs 1.88 (H) Specimen (Source) Anatomical Location Collection Method / Collectio n Time Received Time / Laterality Volume Blood 03/04/2022 Historical Provider HEMATOLOGY ORDERABLES Comprehensive metabolic panel (non-fasting) (03/04/2022)Only the most recent of2 resultswithin the time period is included. P athologist Signature BUN 16 Creatinine 0.8 Sodium 142 Potassium 3.7 Calcium 9.3 Total Protein 7.1 Albumin 3.9 Total Bilirubin 0.4 Alk Phos 71 AST 19 ALT 26 TSH 2.15 Free T4 0.89 Specimen (Source) Anatomical Location Collection Method / Collectio n Time Received Time / Laterality Volume Blood 03/04/2022 Historical Provider CHEMISTRY ORDERABLES SCAN DOC: MRI/MRA (02/16/2022 12:00 AM EDT) Narrative 02/16/2022 12:00 AM EDT This result has an attachment that is no t available. Ordered by an unspecified provider. Scanning Provider MEDIA MGR SCAN EXT ORDR/RSLT Film Library- Storage Only MR Abdomen (02/16/2022 12:00 AM EDT) Specimen (Source) Anatomical Location Collection Method / Collectio n Time Received Time / Laterality Volume Narrative RAD - 03/03/2022 8:52 PM EDT This exam is auto-finalizing. It's purpo se is for storage only. Ángel Fischer MD G FILM LIBRARY ORDERABLES Performing Organization Address City/State/ZIP Code Phon e Number [place], [place] SCAN DOC: DIAGNOSTIC RADIOLOGY (02/11/2022 12:00 AM EDT)Only the most recent of2 resultswithin the time period is included. Narrative 02/11/2022 12:00 AM EDT This result has an attachment that is no t available. Ordered by an unspecified provider. Scanning Provider MEDIA MGR SCAN EXT ORDR/RSLT SCAN DOC: IMPLANTABLE DEVICES (02/10/2022 12:00 AM EDT) Narrative 02/10/2022 12:00 AM EDT This result has an attachment that is no t available. Ordered by an unspecified provider. Scanning Provider MEDIA MGR SCAN EXT ORDR/RSLT SCAN DOC: CT SCAN (02/09/2022 12:00 AM [...] Organization Address City/State/ZIP Code Phon e Number RAD [place], [place] Scan Doc: Surgical Pathology (02/08/2022)Only the most recent of3 resultswithin the time period is included. Narrative This result has an attachment that is no t available. Ángel Fischer MD MEDIA MGR SCAN EXT ORDR/RSLT Surgical Pathology Report (02/02/2022 3:04 PM EDT)Only the most recent of2 resultswithin the time period is included. Component Value Ref Test Analysis Performed At [facility] gist Range Method Time Signature Surgical [id number] ? Location: [facility] Report The signing pathologist has (i) examined the relevant preparation(s) for the [facility] specimen(s) and (ii) rendered or confirmed the diagnosis(es) . HOSPITAL LABORATORY . ?Surgic al Pathology DIAGNOSIS CONSULTATION CASE Outside slide(s) labeled [id number], collection date 12/31/19 22. Right colon, hemicolectomy: Mucinous adenocarcinoma of ascending colon, pT3N2a, see syno ptic report. Electronically signed by: ?Linda Dietrich MD Verified: ??02/10/2022 10:25 ??Pathologist Performed at: ??-[facility] Dept. of Pathology, [place], [place] SYNOPTIC Specimen ? Procedure: ??Right hemicolectomy [...] Buds: ??1 per 'hotspot' field ? Tumor Farwell Score: ??Low (0-4) ? Type of Polyp [...] ? Per outside pat hology report ([facility]), the tumor shows loss of MLH1/PMS2 and ?retained expr ession of MSH2/MSH6 proteins, and and immunostains were not ?submitted for review. Best Tumor Blocks for Future Studies . SYNOPTIC ? Tumor Block(s): ??A4 to A9, A15-A19 ? Normal Block(s): ??A1, A2 ? CAP eCC 2021 Q1 Release ADDITIONAL STUDIES Whole slide scan: [id number] SPECIMEN(S) SUBMITTED CONSULTATION CASE A - 29 slide(s) labeled [id number], collection date 2. [id number] Report to: [facility] Surgical Pathology Department [facility], [facility], 2nd Floor [address] [place] [address] ??[id number] CLINICAL INFORMATION Right colon lesion SPECIMEN PROCESSING [facility] ([facility]) pathology slide(s) are reviewed. ??Refer to Diagnosis and Specimen Submitted for specific case infor kira. For the full text of the [facility] report(s) please refer t o Non-DH Documentation Pathology in the electronic health record (eDH). Specimen (Source) Anatomical Collection Method Collection Time Re ceived Time Location / / Volume Laterality 02/02/2022 3:04 PM EDT Ángel Fischer MD PATHOLOGY/CYTOLOGY ORDERABLE S Performing Organization Address City/State/[place] [address] DPYD PCR (01/27/2022 12:16 PM EDT) Component Value Ref Test Analysis Performed At [facility] Range Method Time Signature DPYD PCR INDICATION FOR STUDY: DPYD Genotyping [facility] RESULTS: Normal metabolizer, *1/*1 genotype [facility] INTERPRETATION: ??Normal gen otype, with [...] probes for each varian t: DPYD*2A ??(c.1905+1G>A, [id number]), DPYD*13 (c.1679T>G , [id number]), and DP YD c.2846A>T ([id number]). All variant positions are provided on the [...] Genomics and [employer] Technology (CGAT) at the [facility]. It has not been cleared or approved [...] Clin Pharmacol Ther. 2018 Jun;103(2):21 0-216. PMID: [id number] 3. Walt Cabello, Yogesh Rapp, et al. Fluorouracil Ther apy and DPYD Genotype. In: Medical Genetics Summaries [Internet]. B vicente MONTES): [facility] 2011? 2015 3. PMID: [id number] Specimen Anatomical Collection Method Collection Time Receive d Time (Source) Location / / Volume Laterality Blood 01/27/2022 12:16 01/27/2022 1:17 PM EDT PM EDT Resulting Agency Comment Spec In Lab Ángel Fischer MD CHEMISTRY ORDERABLES Performing Organization Address City/[facility]/ZIP Code Phon e Number [address] Scan, Peripheral Blood (01/27/2022 12:16 PM EDT) [facility] Super Heat [employer] Method Time Signature Plat Estimate Normal [facility] RBC Morphology Abnormal [facility] Hypochromia Slight [facility] Ovalocytes 1-5 /HPF [facility] Tear Drop Cells 1-5 /HPF [facility] Smudge Cells Present [facility] Specimen Anatomical Collection Method Collection Time Receive d Time (Source) Location / / Volume Laterality Blood 01/27/2022 12:16 01/27/2022 PM EDT 12:23 PM EDT Resulting Agency Comment Spec In Lab Ángel Fischer MD HEMATOLOGY ORDERABLES Performing Organization Address City/[facility]/ZIP Code Phon e Number [address] (ABNORMAL) Hemogram (01/27/2022 12:16 PM EDT) [facility] [employer] Method Time Signature WBC 90.0 4.0 - 9.5 [facility] (Critical[facility] x10(3)/[facility] LABORATORY RBC 4.39 4.00 - MADIHA BOBO 5.21 [facility] x10(6)/[facility] LABORATORY Hemoglobin 11.0 (L) 11.7 - [facility] 15.5 g/dL [facility] LABORATORY Hematocrit 38.2 35.7 - [facility] 45.8 % [facility] LABORATORY MCV 87.0 82.6 - [facility] 94.4 fL [facility] LABORATORY MCH 25.1 (L) 27.1 - [facility] 32.0 pg [facility] LABORATORY MCHC 28.8 (L) 31.7 - MADIHA BOBO 35.0 g/dL [facility] LABORATORY Platelets 244 145 - 357 [facility] x10(3)/[facility] LABORATORY RDWSD 50.0 (H) 37.0 - MADIHA BOBO 46.0 [facility] LABORATORY RDWCV 16.3 (H) 11.5 - [facility] BOBO 14.1 % [facility] LABORATORY MPV 10.8 7.6 - 12.9 [facility] LABORATORY nRBC % Auto 0.0 % [facility] LABORATORY nRBC Abs Auto 0.000 0.000 - [facility] x10(3)/[facility] LABORATORY Specimen Anatomical Collection Method Collection Time Receive d Time (Source) Location / / Volume Laterality Blood 01/27/2022 12:16 01/27/2022 PM EDT 12:23 PM EDT Resulting Agency Comment Spec In Lab Ángel Fischer MD HEMATOLOGY ORDERABLES Performing Organization Address City/State/[place] [address] (ABNORMAL) Differential, Automated (01/27/2022 12:16 PM EDT) [facility] gist Method Time Signature Neutrophils % 8.9 % [facility] LABORATORY Neutr Abs (ANC) 7.99 (H) 1.70 - MADIHA BROUSSARD 6.10 [facility] x10(3)/[facility] LABORATORY Lymphocytes % 89.6 % [facility] LABORATORY Lymphocytes Abs 80.6 (H) 0.9 - 3.2 [facility] x10(3)/[facility] LABORATORY Monocytes % 0.7 % [facility] LABORATORY Monocyte Abs 0.7 0.3 - 0.9 [facility] x10(3)/[facility] LABORATORY Eosinophils % 0.1 % [facility] LAB[facility] Eosinophils Abs 0.1 0.0 - 0.4 [facility] x10(3)/[facility] LABORATORY Basophils % 0.4 % [facility] LABORATORY Basophils Abs 0.4 (H) 0.0 - 0.1 [facility] x10(3)/[facility] LABORATORY Immature Gran % 0.30 % [facility] LAB[facility] Comment: Immature granulocytes(IG's)percentage an d absolute count will include metamyelocytes, myelocytes, and promyelo cytes. Blood smears from CBCs yielding IG's will be scanned manually for concor dance. If this scan disagrees with the automated IG or if promyelocytes are not ed, a manual differential will be performed. Claudia Gran Abs 0.28 (H) 0.00 - 0.04 x10(3)/mcL [facility] LABORATORY Specimen Anatomical Collection Method Collection Time Receive d Time (Source) Location / / Volume Laterality Blood 01/27/2022 12:16 01/27/2022 PM EDT 12:23 PM EDT Resulting Agency Comment Spec In Lab Ángel Fischer MD HEMATOLOGY ORDERABLES Performing Organization Address City/State/ZIP Code Phon e Number [address] (ABNORMAL) Iron and TIBC (01/27/2022 12:16 PM EDT) athologist Signature Iron 39 30 - 150 [facility] mcg/dL [facility] LABORATORY TIBC 361 250 - 450 [facility] mcg/dL [facility] LABORATORY Iron Saturation 11 (L) 20 - 50 % [facility] LABORATORY Specimen Anatomical Collection Method Collection Time Receive d Time (Source) Location / / Volume Laterality Blood 01/27/2022 12:16 01/27/2022 PM EDT 12:23 PM EDT Resulting Agency Comment Spec In Lab Ángel Fischer MD CHEMISTRY ORDERABLES Performing Organization Address City/State/ZIP Code Phon e Number [address] TSH (01/27/2022 12:16 PM EDT) athologist Signature TSH 2.48 0.27 - 4.20 [facility] mcIU/mL [facility] LABORATORY Comment: Reference Interval (mcIU/mL): Females: ??First Trimester: 0.23-3.88 ??Second Trimester: 0.22-3.90 ??Third Trimester: 0.44-4.66 Specimen Anatomical Collection Method Collection Time Receive d Time (Source) Location / / Volume Laterality Blood 01/27/2022 12:16 01/27/2022 PM EDT 12:23 PM EDT Resulting Agency Comment Spec In Lab Ángel Fischer MD CHEMISTRY ORDERABLES Performing Organization Address City/[facility]/[place] [address] Ferritin (01/27/2022 12:16 PM EDT) athologist Signature Ferritin 39 30 - 400 [facility] ng/mL [facility] LABORATORY Comment: Pediatric reference ranges not verified at [facility], interpret with caution. Reference ranges for females greater garcia n 50 years of age approach values for men, i.e., 30-400 ng/mL. Specimen Anatomical Collection Method Collection Time Receive d Time (Source) Location / / Volume Laterality Blood 01/27/2022 12:16 01/27/2022 PM EDT 12:23 PM EDT Resulting Agency Comment Spec In Lab Ángel Fischer MD CHEMISTRY ORDERABLES Performing Organization Address [facility] [place] [address] CEA (01/27/2022 12:16 PM EDT) athologist Signature CEA 422.0 ng/mL [facility] LABOR[facility]ORY Comment: Reference range: ??(20-69 [...] Fischer MD CHEMISTRY ORDERABLES Performing Organization Address [facility]/ZIP [facility] [address] OCT Retina - OU [...] Time Received Time / Laterality Volume Narrative DH RAD - 01/26/2022 11:59 AM EDT This exam is auto-finalizing. It's purpo se is for storage only. Mook Coffey DO IMG FILM LIBRARY ORDERABLES Performing Organization Address City/State/ZIP Code Phon e Number [place], [place] from Last 3 Months Insurance Payer Benefit Plan / Subscriber ID Effective Phone Address T ype Group Dates MEDICARE MEDICARE PART A [id number] 2016-Pres [phone] [place] [address] AARP SUPPLEMENT AARP SUPPLEMENT [id number] 2016-Prese [address] [place] [address] Guarantor Name Account Type Relation to Date of Phone Billing Patient Address Carol Keller Personal/Family Self 1950 [address] (Home) MARY TORRES [phone] (Work) Advance Directives Latest Code Status on [...] capacity to make decision: Yes Care Teams Wood Repatcher Relationship Specialty Start Date End Date Mook Coffey DO PCP - General Family Medicine 02/16/[address] [place] [phone]
--- OUTSIDE RECORDS SUMMARY | 2022-03-25 01:25 | XMS_ITS | Encounter Summary ---
:1950 Author Organization [facility] Address [facility] [place] [address] Care Team Providers Name Role Phone Mook Coffey DO Primary Care Provider Reason for Visit Reason Onset Date Comments Follow-up 02/14/2022 Encounter Details Date Type Department Care Team Description 02/14/2022 Telephone Hematology/Oncology at Maddie Arteaga RN Follow-up [address] [phone] Social History Tobacco Use [...] Telephone Encounter - Maddie Richardson RN - 02/14/2022 12:58 PM EDT Post chemo call Placed call to patient to assess tolerance of first time chemotherapy treatment. Regimen received: pembrolizumab Date of treatment: 02/11/22 Assessment: Symptom?? Present (yes[y]/no[n]/ stable[s] from baseline)?? Additional information/Assessment?? GI? Nausea?n ?? Vomiting?? n ?? Nausea medication?? n ?? Tolerating diet?? y ?? Maintaining fluid intake (indicate volume)?? y ?? Bowel movements regular?? y ?? Diarrhea?n ?? Mouth sores?n ?? General? Pain (0 none - 10 high)?? 0 ?? Using pain medications?? n Fever? Neuro? Level of fatigue (0 - 5)?yes tired ?? Falls?? n ? Numbness/tingling in arms/legs?? n ?? Cognitive changes?n ?? Skin? Skin changes?? n ?? Pinpoint red dots?? n ?? Other s/s of bleeding?n ?? IV site/VAD problems?n Musculoskeletal? Joint swelling or tenderness?? n ?? Arthralgias or myalgias?? n ? Voiding problems?? n ?? Color and quality of urine?? n ?? Cardio-pulmonary? Shortness of breath?? none ??walked dog Chest pain?? n ?? Swelling in legs?? n ?? Calf pain or tenderness?n ?? Cough (productive/non-productive)?? n ?? Psychosocial? Coping?y I? Need prescription renewals? Other issues :?? Anxiety. Support provided ?? Education provided: ?? Plan:? 1. Reviewed cea per Dr. Fischer. 2. Reinforced to patient/care-inspector process to call facility 12/12 with any new/worsening signs and symptoms or concerns or questions.?? Phone number provided.?? Pt verbalized understanding and is in agreement with plan. ? documented in this encounter Plan of Treatment Upcoming Encounters Date Type Specialty Care Team Description 03/25/2022 Office Visit Hector and Ángel Fischer MD [facility] [place] [address] Oncology Alyssa Joseph, [address] [place] [address] 03/25/2022 Infusion Hematology and Oncology 03/31/2022 Office Visit Hematology and Alan Livingston M D [facility] HEMATOLOGY/[place] [address] Oncology Nilam So REMOTE MORTGAGE UNDERWRITER [facility] HEMATOLOGY/[place] [address] 04/15/2022 Office Visit Hematology and Ángel Fischer, Oncology MD [facility] ONCOLOGY [place], [place] [address] (Wo rk) 04/15/2022 Infusion Hematology and Oncology 04/15/2022 Office Visit Hematology and Jazzy Armendariz R D Oncology [facility] DR[address] HEMATOLOGY AND ONCOLOGY [place], [place] [address] (Wo rk) 09/05/2022 Scheduled View Only Obstetrics and Julian Enciso II, chamber walker 09/05/2022 Office Visit Obstetrics and Shazia Whitley APRN Gynecology [facility] UROGYNECOLOGY [place], [place] [address] (Wo rk) documented as of this encounter Visit Diagnoses Not on filedocumented in this encounter Care Teams Management Retail Intern Relationship Specialty Start Date End Date Mook Coffey DO PCP - General Family Medicine 02/16/[address] [place] [phone] documented as of this encounter
--- OUTSIDE RECORDS SUMMARY | 2022-03-25 01:25 | XMS_ITS | Encounter Summary ---
:1950 Author Organization [facility] [place] [address] Care Team Providers Name Role Phone Mook Coffey DO Primary Care Provider Encounter Details Date Type Department Care Team Description 03/25/2022 Infusion Hematology Oncology at [address] [phone] Social History Tobacco Use [...] Care Team Description 03/25/2022 Office Visit Hematology Ángel Kimbrough MD [facility] [place] [address] Oncology Alyssa Joseph[address] [place] [address] 03/31/2022 Office Visit Hematology and Alan Livingston M D [facility] HEMATOLOGY/[place] [address] Oncology Nilam So COLLECTIONS ATTORNEY [facility] HEMATOLOGY/[place] [address] 04/15/2022 Office Visit Ángel Hill Oncology MD [facility] [address] [place], [place] [address] (Wo rk) 04/15/2022 Infusion Hematology and Oncology 04/15/2022 Office Visit Hematology and Jazzy Armendariz R D Oncology [facility] DRIVE HEMATOLOGY AND ONCOLOGY [place], [place] [address] (Wo rk) 09/05/2022 Scheduled View Only Obstetrics and Julian Enciso II, brass sorter 09/05/2022 Office Visit Obstetrics and Shazia Whitley APRN Gynecology [facility] UROGYNECOLOGY [place], [place] [address] (Wo rk) documented as of this encounter Visit Diagnoses Not on filedocumented in this encounter Care Teams Environmental Compliance Technician Relationship Specialty Start Date End Date Mook Coffey DO PCP - General Family Medicine 02/16/[address] [place] [address] [phone] documented as of this encounter
--- OUTSIDE RECORDS SUMMARY | 2022-03-25 01:25 | XMS_ITS | Encounter Summary ---
:1950 Author Organization [facility] Address [address] [place] [address] Care Team Providers Name Role Phone Berkley Madrigal MD Primary Care Provider Unavailable Encounter Details Date Type Department Care Team Description 12/20/2021 Lab Requisition [facility] Blayne Shrestha for other Pathology & MD Sabino general examination Laboratory Medicine [address] [place] [address] [address] [place] [address] [place], [place] [id number] Social History Tobacco Use Types Packs/Day Years [...] 12:01 EDT) Note to Patient The following [facility] pathology results have CENTER been interpreted by LABORATORY your pathologist and SERVICES may be available to you before your health provider has had the opportunity to review them. Please allow time for your provider to receive these results and explore management options, if applicable. Final Diagnosis A. COLON, RIGHT, LESION, BIOPSY: [facility] EDICAL - At least intramucosal colo rectal adenocarcinoma, suspicious for underlying invasion. CENTER - Deeper sections x3 examined. LABORATORY - See comment. SERVICES Diagnosis Comment The superficial nature of th e biopsy precludes further assessment for depth of invasion. [facility] slides of thi s case were reviewed at the gastrointestinal/liver intradepartmental consultation conference. (RW) LABORATORY SERVICES Attestation There was significant [facility] Electr onically resident/fellow CENTER signed by Ab yair Cedillo involvement in the LABORATORY [place] Ruby on diagnostic evaluation SERVICES 12/24/19 22 at 0902 of this case. By the signature below, the attending physician certifies that they have personally conducted a gross and/or microscopic examination of the described specimens and rendered or confirmed the above diagnosis. Clinical History Abnormal imaging; right [facility] colon lesion CENTER LABORATORY SERVICES Gross Description A. [facility] Received in formalin chris d [...] WARREN 12/21/2021 8:36 Resident/Fellow: Shazia Dailey MD [facility] LABORATORY SERVICES Performing Lab [facility] LABORATORY SERVICES Scanned Images [facility] LABORATORY SERVICES Specimen Tissue - Entire right colon (body struct ure) Performing Organization Address City/State/ZIP Code Phon e Number [facility] LABORATORY [address] [place] [address] SERVICES documented in this encounter Visit Diagnoses Diagnosis Encounter for other general examination documented in this encounter Care Teams Speech Pathology Teacher Relationship Specialty Start Date End Date Berkley Madrigal MD PCP - General 01/16/09 documented as of this encounter
--- OUTSIDE RECORDS SUMMARY | 2022-03-25 01:25 | XMS_ITS | Encounter Summary ---
:1950 Author Organization [facility] [place] [address] Care Team Providers Name Role Phone Mook Coffey DO Primary Care Provider Reason for Visit Reason Comments Chemotherapy Treatment/Therapy Plan Authorization (Routine) - Authorized Specialty Diagnoses / Procedures Referred By Contact Refer red To Contact Diagnoses Colon cancer metastasized to liver Ángel Fischer MD [facility] [place] 3k Procedures INFUSION [facility] [place] [address] [place] [phone] Fax: Referral ID Status Reason Start Date Expiration Date Visits V isits Requested Authorized [id number] Authorized 02/11/2022 02/11/2023 99 99 Encounter Details Date Type Department Care Team Description 03/04/2022 Infusion Hematology [place]cology at [facility] kendra cancer metastasized to [address] [phone] Social History Tobacco Use [...] documented as of this encounter Progress Notes Edward Cole, RN - 03/04/2022 12:00 PM EDT INFUSION THERAPY ADMINISTRATION NOTES DIAGNOSIS: GI Colorectal CA CYCLE #: Day 1 Cycle 2 REASON FOR VISIT: Pembrolizumab SUBJECTIVE Carol offers no complaints. OBJECTIVE LAB DATA: WBC 62.78; PLT 194; ANC 1.88; BUN 16; Creat 0.8 IV ACCESS: Implanted Port Pre administration: Chemotherapy orders independently verified for drug name, route, and dosage per patient's height, weight and BSA by Benja KELLEY, Ivonne Garrett RN & Pharm Cesia. REACTIONS (DESCRIPTION, TIME, INTERVENTION AND EFFECTIVENESS) none ASSESSMENT Carol was awake, alert and tolerated treatment well. Port checked for patency and blood return Before each use. Genetic blood testing sent out. Port flushed with 20 ml NS and 500 units Heparin thende accessed. PLAN Return to clinic per routine. documented in this encounter Plan of Treatment Upcoming Encounters Date Type Specialty Care Team Description 03/25/2022 Office Visit Hematology and Ángel Fischer MD [facility] [place] [address] Oncology Alyssa Joseph [address] [place] [address] 03/25/2022 Infusion Hematology and Oncology 03/31/2022 Office Visit Hematology and Alan Livingston M D [facility] HEMATOLOGY/[place] [address] Oncology Nilam So NEWS [employer] [facility] HEMATOLOGY/[place] [address] 04/15/2022 Office Visit Ángel Hill Oncology MD [facility] ONCOLOGY [place], [place] [address] (Wo rk) 04/15/2022 Infusion Hematology and Oncology 04/15/2022 Office Visit Hematology and Jazzy Armendariz R D Oncology [facility]AR HEMATOLOGY AND ONCOLOGY [place], [place] [address] (Wo rk) 09/05/2022 Scheduled View Only Obstetrics and Nurse, Julian COLEMAN, director of vital statistics 09/05/2022 Office Visit Obstetrics and Shazia Whitley APRN Gynecology [facility] UROGYNECOLOGY [place], [place] [address] (Wo rk) documented as of this encounter Procedures Procedure Name Priority Date/Time Associated Diagnosis Comme nts COMPREHENSIVE METABOLIC Routine 03/04/2022 Resu lts for this PANEL (NON-FASTING) procedur e are in the results section . documented in this encounter Results Comprehensive metabolic panel (non-fasting) (03/04/2022) P athologist Signature BUN 16 Creatinine 0.8 Sodium 142 Potassium 3.7 Calcium 9.3 Total Protein 7.1 Albumin 3.9 Total Bilirubin 0.4 Alk Phos 71 AST 19 ALT 26 TSH 2.15 Free T4 0.89 Specimen (Source) Anatomical Location Collection Method / Collectio n Time Received Time / Laterality Volume Blood 03/04/2022 Historical Provider MD CHEMISTRY ORDERABLES documented in this encounter Visit Diagnoses Diagnosis Colon cancer metastasized to liver Malignant neoplasm of colon, unspecified site Colon cancer metastasized to liver Malignant neoplasm of colon, unspecified site documented in this encounter Administered Medications Inactive Administered Medications - up to 3 most recent administrations Medication Order MAR Action Action Date Dose Rate Site heparin (pf) (porcine) (100 Given 03/04/2022 1:29 PM EDT 500 Uni ts units/mL) flush 5 mL syringe 500 Units 500 Units, Intravenous, ONCE PRN, Starting on Mon03/04/22 at 1220, Until Mon03/04/22 at 1542, Line Care, Refer to Intravenous (IV) Procedure: Accessing Implanted Vascular Access Devices (654) procedure and/or Intravenous (IV) Job Aid: Adult Flushing & Catheter Care (0501) job aid for additional information regarding guidelines and administration., Routine pembrolizumab (Keytruda) 200 mg in New Bag 03/04/2022 12:52 PM EDT 200 mg 216 mL/hr sodium chloride 0.9% 108 mL infusion 200 mg, Intravenous, ONCE, 1 dose, On Mon03/04/22 at 1345, Administer over 30 Minutes, Flush line with NS after each dose., This agent is restricted to outpatient use. Is this drug being given as an outpatient? Yes sodium chloride 0.9 % (flush) (BD PosiFlush Given 03/04/2022 1:29 PM EDT 20 mLs Normal Saline 0.9) flush 5-20 mL 5-20 mL, Intravenous, EVERY 1 MIN PRN, Starting on Mon03/04/22 at 1220, Until Mon03/04/22 at 1542, Line Care, Flush pertains to all indwelling lines. Flush per protocol found in the job aid using the link provided on this medication record. Refer to Intravenous (IV) Job Aid: Adult Flushing & Catheter Care (5141) job aid for additional information regarding guidelines and administration., Routine documented in this encounter Care Teams Packager Or Packer And Weigher Relationship Specialty Start Date End Date Mook Coffey DO PCP - General Family Medicine 02/16/[address] [place] [phone] documented as of this encounter
--- OUTSIDE RECORDS SUMMARY | 2022-03-25 01:25 | XMS_ITS | Encounter Summary ---
:1950 Author Organization [facility] Address [facility] [place] [address] Care Team Providers Name Role Phone Mook Coffey DO Primary Care Provider Reason for Visit Reason Comments Follow-up Encounter Details Date Type Department Care Team Description 03/10/2022 Office Visit Obstetrics and Gutierrez, Shazia Baer, Liu hernandez intenance Gynecology at [facility] [place] SHIPPING TRACK SUPERVISOR [facility] [place] [phone] UROGYNECOLOGY [phone] [place], [place] [address] (Wo rk) Social History Tobacco [...] ??F) 03/10/2022 1:52 PM EDT Respiratory Rate - - Oxygen Saturation 99% 03/10/2022 1:52 PM EDT Inhaled Oxygen Concentration - - Weight 69.6 kg (153 lb 8 oz) 03/10/2022 1:52 PM EDT Height - - Body Mass Index 26.11 03/04/2022 11:35 AM EDT documented in this encounter Progress Notes Ana Soto LNA - 03/10/2022 2:00 PM EDT Examination chaperoned by ELISE Carrasco. Shazia Whitley APRN - 03/10/2022 2:00 PM EDT Female Pelvic Medicine and [...] Colon cancer metastasized to liver C18.9, C78.7 SUBJECTIVE: Ms. Keller returns for a pessary check. She denies: vaginal bleeding, abnormal discharge and discomfort related to the pessary. Since our last visit she was diagnosed with metastatic stage IV colon cancer, is now s/p hemicolectomy and doing immunotherapy. OBJECTIVE: BP 129/66 Pulse 67 Temp 36.3 ??C (97.4 ??F) Wt 69.6 kg (153 lb 8 oz) SpO2 99% BMI 26.11 kg/m?? EMLA cream was applied 10-15 minutes prior to pessary removal. A load out worker is present for the examination. General: Appears healthy, well developed and well nourished. No apparent distress. Urethra: Nontender, midline, no lesions. Vulva: Well developed and appropriate architecture present. No lesions or abnormal discharge. Vagina:Pale, pink, moist. no granulation tissue no discharge no bleeding PESSARY TYPE: # 3 Ring with support Pessary removed, cleaned and reinserted without difficulty. ASSESSMENT: Pessary maintenance, no issues PLAN: ??? Continue using pessary as instructed for management of symptoms. RTC in 6 months or sooner prn Shazia Whitley APRN Division of Female Pelvic Medicine and Reconstructive Surgery documented in this encounter Plan of Treatment Upcoming Encounters Date Type Specialty Care Team Description 03/25/2022 Office Visit Hector and Ángel Fischer MD [facility] [place] [address] Oncology Alyssa Joseph APRN [address] [place] [address] [place] [address] 03/25/2022 Infusion Hematology and Oncology 03/31/2022 Office Visit Hematology and Alan Livingston M D [facility] HEMATOLOGY/[place] [address] Oncology Nilam So APRN [facility] HEMATOLOGY/[place] [address] 04/15/2022 Office Visit Hematology and Ángel Fischer Oncology [facility] ONCOLOGY [place], [place] [address] (Wo rk) 04/15/2022 Infusion Hematology and Oncology 04/15/2022 Office Visit Hematology and Jazzy Armendariz R D Oncology [facility] CESAR HEMATOLOGY AND ONCOLOGY [place], [place] [address] (Wo rk) 09/05/2022 Scheduled View Only Obstetrics and Nurse, Julian COLEMAN, plate maker zinc 09/05/2022 Office Visit Obstetrics and Shazia Whitley APRN Gynecology [facility] UROGYNECOLOGY [place], [place] [address] (Wo rk) documented as of this encounter Visit Diagnoses Diagnosis Pessary maintenance Fitting and adjustment of other device Colon cancer metastasized to liver Malignant neoplasm of colon, unspecified site documented in this encounter Care Teams Metal Cnc Operator Relationship Specialty Start Date End Date Mook Coffey DO PCP - General Family Medicine 02/16/[address] [place] [phone] documented as of this encounter
--- OUTSIDE RECORDS SUMMARY | 2022-03-25 01:25 | XMS_ITS | Encounter Summary ---
:1950 Author Organization [facility] [place] [address] Care Team Providers Name Role Phone Mook Coffey DO Primary Care Provider Encounter Details Date Type Department Care Team Description 02/09/2022 Ancillary Procedure Radiology Library at [facility], Bennie Lehman, [facility] [address] [place] [phone] ONCOLOGY [phone] [place], [place] [address] (Wo rk) Social History Tobacco [...] [facility] [place] [address] Oncology Alyssa Joseph[address] [place] [address] 03/25/2022 Infusion Hematology and Oncology 03/31/2022 Office Visit Hematology and Alan Livingston M D [facility] HEMATOLOGY/[place] [address] Oncology Nilam So [facility] HEMATOLOGY/[place] [address] 04/15/2022 Office Visit Ángel Hill Oncology [facility] ONCOLOGY [place], [place] [address] (Wo rk) 04/15/2022 Infusion Hematology and Oncology 04/15/2022 Office Visit Hematology and Jazzy Aremndariz R D Oncology [facility] DRIVE HEMATOLOGY AND ONCOLOGY [place], [place] [address] (Wo rk) 09/05/2022 Scheduled View Only Obstetrics and Julian Enciso II, tire builder operator 09/05/2022 Office Visit Obstetrics and Shazia Whitley APRN Gynecology [facility] UROGYNECOLOGY [place], [place] [address] (Wo rk) documented as of [...] Time Received Time / Laterality Volume Narrative [facility] - 02/10/2022 3:33 PM EDT This exam is auto-finalizing. It's purpo se is for storage only. Ángel Fischer MD [employer] FILM LIBRARY ORDERABLES Performing Organization Address City/State/ZIP Code Phon e Number [place], [place] documented in this encounter Visit Diagnoses Not on filedocumented in this encounter Care Teams Roll Shop Supervisor Relationship Specialty Start Date End Date Mook Coffey DO PCP - General Family Medicine 02/16/18 [address] [place] [phone] documented as of this encounter
--- OUTSIDE RECORDS SUMMARY | 2022-03-25 01:25 | XMS_ITS | Encounter Summary ---
:1950 Author Organization [facility] Address [facility] [place] [address] Care Team Providers Name Role Phone Mook Coffey DO Primary Care Provider Reason for Visit Reason Onset Date Comments Questions 02/08/2022 Encounter Details Date Type Department Care Team Description 02/08/2022 [facility] RN [address] [place] [phone] Social History Tobacco Use Types [...] Hematology and Ángel Fischer MD [facility] [place] [address] Oncology Alyssa Joseph, SPECIAL NEEDS TUTOR [address] [place] [address] [place] [address] 03/25/2022 Infusion Hematology and Oncology 03/31/2022 Office Visit Hematology and Alan Livingston M D [facility] HEMATOLOGY/[place] [address] Oncology Nilam So [facility] HEMATOLOGY/[place] [address] 04/15/2022 Office Visit Hematology and Ángel Fischer Oncology [facility] ONCOLOGY [place], [place] [address] (Wo rk) 04/15/2022 Infusion Hematology and Oncology 04/15/2022 Office Visit Hematology and Jazzy Armendariz R D [facility]ESAR HEMATOLOGY AND ONCOLOGY [place], [place] [address] (Wo rk) 09/05/2022 Scheduled View Only Obstetrics and NurseJulian II, RN Gynecology 09/05/2022 Office Visit Obstetrics and Shazia Whitley SPECIAL NEEDS TUTOR Gynecology [facility] UROGYNECOLOGY [place], [place] [address] (Wo rk) documented as of this encounter Visit Diagnoses Not on filedocumented in this encounter Care Teams Assistive Technology Trainer Relationship Specialty Start Date End Date Mook Coffey DO PCP - General Family Medicine 02/16/[address] [place] [phone] documented as of this encounter
--- OUTSIDE RECORDS SUMMARY | 2022-03-25 01:25 | XMS_ITS | Encounter Summary ---
:1950 Author Organization [facility] [place] [address] Care Team Providers Name Role Phone Mook Coffey DO Primary Care Provider Encounter Details Date Type Department Care Team Description 02/16/2022 Ancillary Procedure Radiology Library at [facility], Bennie Lehman, [facility] [address] [place] [address] ONCOLOGY [phone] [place], [place] [address] (Wo rk) Social History Tobacco [...] Fischer MD [facility] [place] [address] Oncology Alyssa Joseph[address] [place] [address] 03/25/2022 Infusion Hematology and Oncology 03/31/2022 Office Visit Hematology and Alan Livingston M D [facility] HEMATOLOGY/[place] [address] Oncology Nilam So [facility] HEMATOLOGY/[place] [address] 04/15/2022 Office Visit Ángel Hill Oncology [facility] ONCOLOGY [place], [place] [address] (Wo rk) 04/15/2022 Infusion Hematology and Oncology 04/15/2022 Office Visit Hematology and Jazzy Armendariz R D Oncology [facility] DRIVE HEMATOLOGY AND ONCOLOGY [place], [place] [address] (Wo rk) 09/05/2022 Scheduled View Only Obstetrics and Julian Enciso II, commission associate 09/05/2022 Office Visit Obstetrics and Shazia Whitley APRN Gynecology [facility] UROGYNECOLOGY [place], [place] [address] (Wo rk) documented as of this encounter Procedures Procedure Name Priority Date/Time Associated Diagnosis Comme nts FILM LIBRARY Routine 02/16/2022 12:00 AM Results for this STORAGE ONLY MR EDT procedure ar e in ABDOMEN the results section. documented in this encounter Results Film Library- Storage Only MR Abdomen (02/16/2022 12:00 AM EDT) Specimen (Source) Anatomical Location Collection Method / Collectio n Time Received Time / Laterality Volume Narrative [facility] - 03/03/2022 8:52 PM EDT This exam is auto-finalizing. It's purpo se is for storage only. Ángel Fischer MD IMJazmin FILM LIBRARY ORDERABLES Performing Organization Address City/State/ZIP Code Phon e Number [place], [place] documented in this encounter Visit Diagnoses Not on filedocumented in this encounter Care Teams Lean Consultant Relationship Specialty Start Date End Date Mook Coffey DO PCP - General Family Medicine 02/16/18 [address] [place] [phone] documented as of this encounter
--- OUTSIDE RECORDS SUMMARY | 2022-03-25 01:25 | XMS_ITS | Encounter Summary ---
:1950 Author Organization [facility] [place] [address] Care Team Providers Name Role Phone Mook Coffey DO Primary Care Provider Encounter Details Date Type Department Care Team Description 02/16/2022 Telephone Hematology and Oncology at Ezekiel Mak MD [facility] Katarina evangelista HEMATOLOGY/[place] [address] DEPT. [phone] [place], [place] [address] (Wo rk) Social History Tobacco [...] this encounter Miscellaneous Notes Telephone Encounter - Ezekiel Ricci MD - 02/16/2022 8:50 PM EDT Heme-Onc Staff I have reviewed the patient's record and, given personal and/or family history of cancer she should be seen by a genetic counselor. This is scheduled for next week. Ezekiel Ricci MD cq developer in Hematology-Oncology documented in this encounter Plan of Treatment Upcoming Encounters Date Type Specialty Care Team Description 03/25/2022 Office Visit Hematology and Ángel Fischer MD [facility] [place] [address] Oncology Alyssa Joseph, [address] [place] [address] 03/25/2022 Infusion Hematology and Oncology 03/31/2022 Office Visit Hematology and Aurora, Alan, M D [facility] HEMATOLOGY/[place] [address] Oncology Nilam So, [facility] HEMATOLOGY/[place] [address] 04/15/2022 Office Visit Hematology and Ángel Fischer Oncology [facility] ONCOLOGY [place], [place] [address] (Wo rk) 04/15/2022 Infusion Hematology and Oncology 04/15/2022 Office Visit Hematology and Jazzy Armendariz R D Oncology [facility] CESAR HEMATOLOGY AND ONCOLOGY [place], [place] [address] (Wo rk) 09/05/2022 Scheduled View Only Obstetrics and NurseJulian II, superintendent container terminal 09/05/2022 Office Visit Obstetrics and Shazia Whitley APRN Gynecology [facility] UROGYNECOLOGY [place], [place] [address] (Wo rk) documented as of this encounter Visit Diagnoses Not on filedocumented in this encounter Care Teams Finisher Screwdown Relationship Specialty Start Date End Date Mook Coffey DO PCP - General Family Medicine 02/16/[address] [place] [phone] documented as of this encounter
--- OUTSIDE RECORDS SUMMARY | 2022-03-25 01:25 | XMS_ITS | Encounter Summary ---
:[address] [facility] Address [address] [place] [address] Care Team Providers Name Role Phone Berkley Madrigal MD Primary Care Provider Unavailable Encounter Details Date Type Department Care Team Description 02/21/2013 Results Only [facility] Berkley Madrigal Laboratory Services - Zulema Meade MD [address] [address] Social History Tobacco Use Types Packs/Day Years Used Date Never Assessed Sex Assigned at Date Recorded Not on file documented as of this encounter Plan of Treatment Not on filedocumented as of this encounter Procedures Procedure Name Priority Date/Time Associated Diagnosis Comme [facility] CYTOPATHOLOGY Routine 02/21/2013 0:00 EDT Results for this procedure are i n the results section . documented in this encounter Results CYTOPATHOLOGY (02/21/2013 0:00 EDT) Pathology Report: CYTOPATHOLOGY REPORT [facility] Reports generated via electronic interface contain cara ginal data; however they are lacking the format of the original re port. Caution should be taken when reading/interpreting unfo rmatted reports. Name: ? CAROL KELLER ? Accession #: ? [id number] : ? 1950 (Age: 62) ??F ?Collect Date: ? 07/2012 Location: ? [facility] ? Receive Date : ? 02/25/2013 Provider: ? BERKLEY MADRIGAL MD Copy to: ? CYTOLOGIC DIAGNOSIS: URINE, NOS, CYTOLOGIC EVALUATION: - ??Negative for malignant cells. - ??Urothelial and squamous cells observed. Document reviewed and electronically signed by: ? JAHAIRA RUST MD [facility] Report Date: ??02/27/2013 17:30 By the signature above, the attending physician certif ies that he/she has personally conducted a gross and/or microscopic examin ation of the described specimens and rendered or confirmed the above diagnosi s. Specimen Type: ? Urine, NOS Clinical History: ? Microscopic hematuria. ? Gross Description: ? 20 ccs of clear pale yellow fluid were received and pr ocessed by selective cellular enhancement technique. ? End of Report Specimen Performing Organization Address City/State/ZIP Code Phon e Number [facility] [address] [place] [address] SERVICES [facility] [address] [place] [address] documented in this encounter Visit Diagnoses Not on filedocumented in this encounter Care Teams Family And Marriage Counsellor Relationship Specialty Start Date End Date Berkley Madrigal MD PCP - General 01/16/09 documented as of this encounter
--- OUTSIDE RECORDS SUMMARY | 2022-03-25 01:25 | XMS_ITS | Encounter Summary ---
:1950 Author Organization [facility] [place] [address] Care Team Providers Name Role Phone Mook Coffey DO Primary Care Provider Encounter Details Date Type Department Care Team Description 02/04/2022 Telephone Hematology/Oncology at [facility] , Ángel Lehman MD [address] ONCOLOGY [place], [place] [address] [place] [address] [phone] (Wo rk) Social History Tobacco Use Types [...] Office Visit Hector and Ángel Fischer MD [facility] [place] [address] Oncology Alyssa Joseph[address] [place] [address] 03/25/2022 Infusion Hematology and Oncology 03/31/2022 Office Visit Hematology and Alan Livingston M D [facility] HEMATOLOGY/[place] [address] Oncology Nilam So [facility] HEMATOLOGY/[place] [address] 04/15/2022 Office Visit Hematology Ángel Kimbrough Oncology [facility] ONCOLOGY [place], [place] [address] (Wo rk) 04/15/2022 Infusion Hematology and Oncology 04/15/2022 Office Visit Hematology and Jazzy Armendariz R D Oncology [facility] DR[facility] HEMATOLOGY AND ONCOLOGY [place], [place] [address] (Wo rk) 09/05/2022 Scheduled View Only Obstetrics and Julian Enciso II, set up mechanic heading machines 09/05/2022 Office Visit Obstetrics and Shazia Whitley APRN Gynecology [facility] UROGYNECOLOGY [place], [place] [address] (Wo rk) documented as of this encounter Visit Diagnoses Not on filedocumented in this encounter Care Teams Financial Processing Clerk Relationship Specialty Start Date End Date Mook Coffey DO PCP - General Family Medicine 02/16/[address] [place] [phone] documented as of this encounter
--- OUTSIDE RECORDS SUMMARY | 2022-03-25 01:25 | XMS_ITS | Encounter Summary ---
:1950 Author Organization [facility] Address [facility] [place] [address] Care Team Providers Name Role Phone Mook Coffey DO Primary Care Provider Reason for Visit Reason Onset Date Comments Abnormal Lab 02/09/2022 Critical Encounter Details Date Type Department Care Team Description 02/09/2022 Telephone Hematology/Oncology at [facility] (Critical ) [facility] Navneet Isaac RN [address] [place] [address] Social History Tobacco Use Types [...] Burden RN - 02/09/2022 8:36 AM EDT [facility] lab called to report critical WBC 68.[address] Fischer and Dr Livingston made aware. Pt has CLL and colon cancer. documented in this encounter Plan of Treatment Upcoming Encounters Date Type Specialty Care Team Description 03/25/2022 Office Visit Hematology and Ángel Fischer MD [facility] [place] [address] Oncology Alyssa Joseph APRN [address] [place] [address] [place] [address] 03/25/2022 Infusion Hematology and Oncology 03/31/2022 Office Visit Hematology and Alan Livingston M D [facility] HEMATOLOGY/[place] [address] Oncology Nilam So DIRECTOR REGULATORY AFFAIRS [facility] HEMATOLOGY/[place] [address] 04/15/2022 Office Visit Hematology and Ángel Fischer Oncology [facility] ONCOLOGY [place], [place] [address] (Wo rk) 04/15/2022 Infusion Hematology and Oncology 04/15/2022 Office Visit Hematology and Jazzy Armendariz R D Oncology [facility] HEMATOLOGY AND ONCOLOGY [place], [place] [address] (Wo rk) 09/05/2022 Scheduled View Only Obstetrics and Julian Enciso II, christmas tree contractor 09/05/2022 Office Visit Obstetrics and Shazia Whitley APRN Gynecology [facility] UROGYNECOLOGY [place], [place] [address] (Wo rk) documented as of this encounter Visit Diagnoses Not on filedocumented in this encounter Care Teams Automation And Controls Instructor Relationship Specialty Start Date End Date Mook Coffey DO PCP - General Family Medicine 02/16/[address] [place] [phone] documented as of this encounter
--- OUTSIDE RECORDS SUMMARY | 2022-03-25 01:25 | XMS_ITS | Encounter Summary ---
:1950 Author Organization [facility] [place] [address] Care Team Providers Name Role Phone Mook Coffey DO Primary Care Provider Encounter Details Date Type Department Care Team Description 02/02/2022 Hospital Encounter Laboratory [facility] [place] [address] Social History Tobacco Use Types Packs/Day [...] 325 mg (65 Take 325 mg by 0 mg iron) Tablet mouth daily. psyllium husk, with sugar, Take by mouth. 0 (Metamucil Free) 3 gram/7 gram Powder acetaminophen (TYLENOL) Take 650 mg by 0 650 mg Tablet Sustained mouth every 8 hours Release as needed for Pain. Do not exceed 6 tabs in 24 hours calcium carbonate (Tums) Take 1 tablet by 0 200 mg calcium (500 mg) mouth daily. Tablet, Chewable temazepam (Restoril) 15 mg Take 15 mg by mouth 0 Capsule nightly as needed for Sleep. apixaban (Eliquis) 2.5 mg Take 2.5 mg by 0 Tablet mouth 2 times daily. Green Tea Extract 500 mg Take 500 mg by 0 Cap mouth daily. melatonin 3 mg Tab Take 3 mg by mouth 0 nightly as needed. multivitamin capsule Take 1 capsule by 0 mouth daily. cholecalciferol, Vitamin Take 2,000 mg by 0 D3, 50 mcg (2,000 unit) mouth daily. Capsule diphenoxylate-atropine 4 times daily as 0 (Lomotil) 2.5-0.025 mg needed. Tablet nystatin (MYCOSTATIN) Apply topically 2 60 g 1 019 Powder times daily. Ventolin HFA 90 as needed. 0 11/30/2020 2 mcg/actuation HFA Aerosol Inhaler cyclobenzaprine (FLEXERIL) 1 9 02/11/2022 10 mg Tablet magnesium 250 mg Tablet Take 133 mg by 0 02/11/2022 mouth. glucosamine sulfate 500 mg Take 500 mg by 0 02/11/2022 Tablet mouth daily. documented as of this encounter Plan of Treatment Upcoming Encounters Date Type Specialty Care Team Description 03/25/2022 Office Visit Hematology and Ángel Fischer MD [facility] [place] [address] Oncology Alyssa Joseph[address] [place] [address] 03/25/2022 Infusion Hematology and Oncology 03/31/2022 Office Visit Hematology and Alan Livingston M D [facility] HEMATOLOGY/[place] [address] Oncology Nilam So [facility] HEMATOLOGY/[place] [address] 04/15/2022 Office Visit Hematology Ángel Kimbrough Oncology [facility] ONCOLOGY [place], [place] [address] (Wo rk) 04/15/2022 Infusion Hematology and Oncology 04/15/2022 Office Visit Hematology and Jazzy Armendariz R D Oncology [facility] CESAR HEMATOLOGY AND ONCOLOGY [place], [place] [address] (Wo rk) 09/05/2022 Scheduled View Only Obstetrics and NurseJulian II, glove former 09/05/2022 Office Visit Obstetrics and Shazia Whitley APRN Gynecology [facility] UROGYNECOLOGY [place], [place] [address] (Wo rk) documented as of this encounter Procedures Procedure Name Priority Date/Time Associated Diagnosis Johanna austin SURGICAL PATHOLOGY Routine 02/02/2022 3:04 PM Res ults for this REPORT EDT procedure are i n the results section. documented in this encounter Results Surgical Pathology Report (02/02/2022 3:04 PM EDT) Component Value Ref Test Analysis Performed At [facility] Range Method Time Signature Surgical [id number] ? Location: [facility] Pathology [place] Report The signing pathologist has (i) examined the relevant preparation(s) for the [facility] specimen(s) and (ii) rendered or confirmed the diagnosis(es) . HOSPITAL LABORATORY . ?Surgic al Pathology DIAGNOSIS CONSULTATION CASE Outside slide(s) labeled [id number], collection date 12/31/19 22. Right colon, hemicolectomy: Mucinous adenocarcinoma of ascending colon, pT3N2a, see syno ptic report. Electronically signed by: ?Linda Dietrich MD Verified: ??02/10/2022 10:25 ??Pathologist Performed at: ??-[facility] Dept. of Pathology, [place], [place] SYNOPTIC Specimen ? Procedure: ??Right hemicolectomy [...] Buds: ??1 per 'hotspot' field ? Tumor [place] Score: ??Low (0-4) ? Type of Polyp [...] Q1 Release ADDITIONAL STUDIES Whole slide scan: [id number] SPECIMEN(S) SUBMITTED CONSULTATION CASE A - 29 slide(s) labeled [id number], collection date 2. [id number] Report to: [facility] Surgical Pathology Department [facility], [facility], 2nd Floor [address] [place], [place] ??[address] CLINICAL INFORMATION Right colon lesion SPECIMEN PROCESSING [facility] ([facility]) pathology slide(s) are reviewed. ??Refer to Diagnosis and Specimen Submitted for specific case infor kira. For the full text of the [facility] report(s) please refer t o Non-DH Documentation Pathology in the electronic health record (eDH). Specimen (Source) Anatomical Collection Method Collection Time Re ceived Time Location / / Volume Laterality 02/02/2022 3:04 PM EDT Ángel Fischer MD PATHOLOGY/CYTOLOGY ORDERABLE S Performing Organization Address City/State/[place] [address] documented in this encounter Visit Diagnoses Not on filedocumented in this encounter Care Teams Optical Store Manager Relationship Specialty Start Date End Date Mook Coffey DO PCP - General Family Medicine 02/16/18 [address] [place] [phone] documented as of this encounter
--- OUTSIDE RECORDS SUMMARY | 2022-03-25 01:25 | XMS_ITS | Encounter Summary ---
:1950 Author Organization [facility] Address [address] [place] [address] Care Team Providers Name Role Phone Berkley Madrigal MD Primary Care Provider Unavailable Encounter Details Date Type Department Care Team Description 07/18/2019 Lab Requisition [facility] Unknown, Provider, Pathology & Laboratory [facility] [address] [place] [address] [place] [address] Social History Tobacco Use Types Packs/Day Years [...] Pathologist Sig nature Salmonella PCR Negative Negative [facility]OR[facility] SERVICES Shigella/Enteroinvasive Negative Negative [facility] HN LAB CAMPYLOBACTER PCR Negative Negative [facility] LABORATORY SERVICES Shiga Toxin PCR Negative Negative [facility] SERVICES Specimen Feces - Specimen from rectum (specimen) Performing Organization Address City/State/ZIP Code Phon e Number [facility] [address] [place] [address] SERVICES OVA/PARASITE EXAM (07/18/2019 12:27 EST) Pathologist Sig nature Parasite No ova and parasites [facility] seen. LABORATORY SERVICES Specimen Feces - Specimen from rectum (specimen) Narrative [facility] SERVICES - 07/19/2019 11:23 EST (If Cryptosporidium, Cyclospora, or Micr osporidium are suspected, specific tests must be requested.) Single negative specimen does not rule out the possibility of a parasitic infection. Performing Organization Address City/State/ZIP Code Phon e Number [facility] [address] [place] [address] SERVICES documented in this encounter Visit Diagnoses Not on filedocumented in this encounter Care Teams Java Software Engineer Relationship Specialty Start Date End Date Berkley Madrigal MD PCP - General 01/16/09 documented as of this encounter
--- OUTSIDE RECORDS SUMMARY | 2022-03-25 01:25 | XMS_ITS | Encounter Summary ---
:1950 Author Organization [facility] Address [facility] [place] [address] Care Team Providers Name Role Phone Mook Coffey DO Primary Care Provider Reason for Visit Reason Onset Date Comments Questions 02/15/2022 Rash 02/15/2022 Encounter Details Date Type Department Care Team Description 02/15/2022 [facility] Pawan Isaac RN [address] [place], [place] [phone] Social History Tobacco Use Types [...] Telephone Encounter - Navneet Burden RN - 02/15/2022 12:39 PM EDT Pt will try cortisone or benadryl cream on rash and let us know if it does not improve or worsens. Telephone Encounter - Navneet Burden RN - 02/15/2022 10:31 AM EDT Caller: Carol Keller Relationship: Self Clarified Two Patient Identifiers: [x] Reason For Call: Rash on neck Assessment/Symptom Review (onset, location, duration, what makes it better or worse, pertinent positives and negatives): Anahi called in this morning to report that she was on FaceTime with her daughter and her daughter noticed her having a reddenned area just down the front of her neck. Anahi said it was somewhat itchy,and if she were scratching the area it may be more irritated. She has not applied anything to it at this time but may use some steroid cream. She will take a photo of it first to send through [facility]. Shedenies any other symptoms. She wonders if she is sensitive to betadine, used when her port was placed last . She has not used any new detergents. We discussed possibility of being related to the therapy Pembrolizumab she received last Monday but she has no other systemic symptoms. Will update provider and look for picture in chart. Review of Systems Related to Reason for Call: System POS NEG Not Applicable Head (ENT /Neuro) [] [x] [] Cardiac [] [x] [] Respiratory [] [x] [] GI [] [x] [] [] [x] [] Musculoskeletal [] [x] [] Integumentary [x] [] [] Mental Health [] [x] [] Select Specific Decision Support Tool Used: Telephone Triage for Oncology Nurses, 3rd Edition, ONC, Bashir and Henry, 2019 Name of Guideline/Protocol Used: Rash Disposition/Plan of Care: Call back if no improvement Patient/Caregiver verbalizes understanding of plan of care: Yes Patient/Caregiver agrees with plan: Yes Advised patient/caregiver to: call office back for any new or worsening symptoms Patient/Caregiver demonstrates understanding via teach back: Yes documented in this encounter Plan of Treatment Upcoming Encounters Date Type Specialty Care Team Description 03/25/2022 Office Visit Hematology and Ángel Fischer MD [facility] [place] [address] Oncology Alyssa Joseph[address] [place] [address] 03/25/2022 Infusion Hematology and Oncology 03/31/2022 Office Visit Hematology and Alna Livingston M D [facility] HEMATOLOGY/[place] [address] Oncology Nilam So APRN [facility] HEMATOLOGY/[place] [address] 04/15/2022 Office Visit Hematology and Ángel Fischer, Oncology MD [facility] ONCOLOGY [place], [place] [address] (Wo rk) 04/15/2022 Infusion Hematology and Oncology 04/15/2022 Office Visit Hematology and Jazzy Armendariz R D Oncology [facility] DR[address] HEMATOLOGY AND ONCOLOGY [place], [place] [address] (Wo rk) 09/05/2022 Scheduled View Only Obstetrics and Julian Enciso II, document controller 09/05/2022 Office Visit Obstetrics and Shazia Whitley APRN Gynecology [facility] UROGYNECOLOGY [place], [place] [address] (Wo rk) documented as of this encounter Visit Diagnoses Not on filedocumented in this encounter Care Teams Fitness And Wellness Instructor Relationship Specialty Start Date End Date Mook Coffey DO PCP - General Family Medicine 02/16/[address] [place] [phone] documented as of this encounter
--- OUTSIDE RECORDS SUMMARY | 2022-03-25 01:25 | XMS_ITS | Encounter Summary ---
:1950 Author Organization [facility] Address [address] [place] [address] Care Team Providers Name Role Phone Berkley Madrigal MD Primary Care Provider Unavailable Encounter Details Date Type Department Care Team Description 05/26/2005 Results Only [facility] - Kathya Brown MD [address] [place] [address] Social History Tobacco Use Types Packs/Day Years [...] ? ThinPrep Pap Test, Vagina, processed on Urgent Group ThinPrep Imaging System, with manual evaluation Last [...] Organization Address City/State/ZIP Code Phon e Number [facility] [address] [place] [address] SERVICES [facility] [address] [place] [address] documented in this encounter Visit Diagnoses Not on filedocumented in this encounter Care Teams [employer] Founder Relationship Specialty Start Date End Date Berkley Madrigal MD PCP - General 01/16/09 documented as of this encounter
--- OUTSIDE RECORDS SUMMARY | 2022-03-25 01:25 | XMS_ITS | Encounter Summary ---
:1950 Author Organization [facility] [place] [address] Care Team Providers Name Role Phone Mook Coffey DO Primary Care Provider Reason for Referral Diagnostic Test (Routine) - Authorized Specialty Diagnoses / Procedures Referred By Contact Refer red To Contact Radiology Diagnoses Colon cancer metastasized to liver Ángel Fischer MD Procedures MRI Abdomen wwo Contrast (Generic) [facility] [place] [address] Referral ID Status Reason Start Expiration Visits Visits Date Date Requested Authorized [id number] Authorized Specialty 02/11/2022 08/12/2023 1 1 Service Requested Encounter Details Date Type Department Care Team Description 02/11/2022 TH Visit Hematology and Ángel Fischer Colon canc er metastasized to liver; (TeleHealth) Oncology at [facility] MD Dominik High risk medication use [facility] [address] [place]OG[place] [address] [place] [address] [phone] Social History Tobacco Use Types Packs/Day Years [...] Sign Reading Time Taken Comments Blood Pressure 147/74 02/11/2022 11:40 AM EDT Pulse 76 02/11/2022 11:40 AM EDT Temperature 36.3 ??C (97.3 ??F) 02/11/2022 11:40 AM EDT Respiratory Rate 16 02/11/2022 11:40 AM EDT Oxygen Saturation 98% 02/11/2022 11:40 AM EDT Inhaled Oxygen Concentration - - Weight 70 kg (154 lb 6.4 oz) 02/11/2022 11:40 AM EDT Height 163.3 cm (5' 4.29) 02/11/2022 11:40 AM EDT Body Mass Index 26.26 02/11/2022 11:40 AM EDT documented in this encounter Progress Notes Ángel Fischer MD - 02/11/2022 11:00 AM EDT Subjective Patient ID: Carol [...] medical/surgical history. B. Colonoscopy 12/20/21 - Path ([facility] review) - Colon, right, lesion, ?? biopsy: [...] retained expression of MSH2 and MSH6 proteins F. CT c/a/p 02/09/22 Chest - Impression: 1. There is evidence of mediastinal adenopathy, right hilar adenopathy, axillary adenopathy and supraclavicular adenopathy, suspicious for metastatic disease. 2. Multiple soft tissue density pulmonary nodules detected in both the right and left lung as above. Continue monitoring as recommended given the history of malignancy. Abd/pelvis - Impression: 1. Increase in size and number of retroperitoneal adenopathy when compared to the previous exam. There is also evidence of mesenteric adenopathy, most notable in the right lower quadrant region, with a conglomerate of nodes. 2. Persistently visualized narrowing of the proximal ascending colon. 3. Development of a 1.0 cm hypodensity within the posterior right hepatic lobe which measures greater than water density. Metastatic disease is not excluded. ?? 2. CLL (chronic lymphocytic leukemia) ? [...] S/p hysterectomy HPI Carol Keller (Betty) is seen in f/u of colon cancer. The history is summarized above. Anahi is accompanied to clinic today by her son Freeman. She is feelng fairly well. She had a mediport placed yesterday and tolerated that well. The majority of this visit was spent discussing the CT findings and treatment options. Soc Hx:, lives in [place], [place] Tob - Never Etoh - Rare [...] acute distress. HENT: Head: Normocephalic and atraumatic. Eyes: General: No scleral icterus. Cardiovascular: Rate and Rhythm: Normal rate. Pulmonary: Effort: No respiratory distress. Musculoskeletal: General: No swelling. Skin: General: Skin is warm and dry. Findings: No rash. Neurological: Mental Status: She is alert. Psychiatric: Mood and Affect: Mood normal. Behavior: Behavior normal. Labs: WBC/ANC - 68.8/6%, Hgb/Hct - 11.8/39.7, Plts - 183,000. BUN/Cr - 17/1.13. Lytes and LFTs unremarkable. CEA 02/11/22 pending 01/27/22 422 12/20/21 281.2 DPYD - RESULTS: Normal metabolizer, *1/*1 genotype Assessment and Plan Anahi Keller is 71 yo, with a problem list including good risk CLL which has never required treatment. 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 A margin termed vascular pedicle margin is positive. The pathology has been reviewed at [facility] and the report concurs with the [facility] report, including margin positivity. I spoke with Dr. Dietrich at [facility] and Dr. Muñoz at [facility]. The margin inquestion is related to discontinuous nodules in lymphovascular spaces, but also in soft tissue, distant from the main tumor and therefore is considered a positive margin rather than simply LVI. We met on 01/27/22 and reviewed the diagnosis, prognosis and treatment recommendations and discussed adjuvant therapy. However, the CEA on 02/16/22 was 422. Therefore, a repeat CT scan was done on 02/09/22. This shows extensive adenopathy, small lung nodules and a liver lesion. Interpretation of these findings is made more difficult by the underlying CLL but the liver lesion in particular is worrisome for metastasis from the colon cancer. In addition to the lesion within the liver, there appear to be lesions on the surface of the liver. The pulmonary nodules are small and indeterminate. However, on reviewing the CT with radiology, they appear a bit larger than they were in 12/2021 and are new compared with 2017. Thesestill potentially could be related to the CLL, but are more likely related to the colon cancer, as are the liver lesions. Metastatic liver lesions may potentially be resectable. However, if there is disease elsewhere, this is unlikely to be of benefit to the patient. This question is very hard to define given the CLL. However, in a patient who has shown this kind of progression in a short time interval, I think the likelihood of benefit with this is low, ie if not already present, would expect recurrence elsewhere in a short period of time. We talked about whether to do further evaluation with an MRI of the abdomen prior to beginning therapy. She is anxious to proceed with therapy. Given the rise in CEA and new liver lesion(s), I think itis reasonable to assume that this represents stage IV colon cancer and to proceed with with therapy.I will order the MRI to be done prior to the next visit but we will have to keep in mind that she had therapy in the interim - ie the MRI findings might not be an accurate reflection of the disease status now. She understands this and again, wants to get started on therapy. In terms of specific therapies, we discussed that standard upfront therapy for dMMR stage IV colorectal cancer consists of immuno therapy rather than cytotoxic chemotherapy based on trials showing improved RR and PFS. We reviewed that we would proceed with pembrolizumab and that this is given every three weeks. Potential side effects were discussed, including immune related side effects which may be serious and even fatal in a small percentage of people. She will be given an informational handout regarding the medication. She will receive cycle 1 today and we will see her in three weeks with an MRI prior. Referral to familial cancer program was made because of the MMR deficiency and her family history. She has an appt on 02/22/22. documented in this encounter Plan of Treatment Upcoming Encounters Date Type Specialty Care Team Description 03/25/2022 Office Visit Hematology and Ángel Fischer MD [facility] [place] [address] Oncology Alyssa Joseph [address] [place] [address] 03/25/2022 Infusion Hematology and Oncology 03/31/2022 Office Visit Hematology and Alan Livingston M D [facility] HEMATOLOGY/[place] [address] Oncology Nilam So [facility] HEMATOLOGY/[place] [address] 04/15/2022 Office Visit Hematology and Ángel Fischer Oncology [facility] [address] [place], [place] [address] (Wo rk) 04/15/2022 Infusion Hematology and Oncology 04/15/2022 Office Visit Hematology and Jazzy Armendariz R D Oncology [facility] CESAR HEMATOLOGY AND ONCOLOGY [place], [place] [address] (Wo rk) 09/05/2022 Scheduled View Only Obstetrics and Nurse, Oboneal II, dentistry teacher 09/05/2022 Office Visit Obstetrics and Shazia Whitley APRN Gynecology [facility] UROGYNECOLOGY [place], [place] [address] (Wo rk) Scheduled Orders Name Type Priority Associated Diagnoses Order S chedule MRI Abdomen wwo Contrast Imaging Routine Colon cancer Exp ected: 02/25/2022 (Generic) metastasized to liver (Appro ximate), Expires: 2022 CBC (with Diff) Lab Routine Colon cancer Every 3 week s for 12 metastasized to liver Occurr ences starting 02/11/2022 unti l 02/11/2023 Comprehensive metabolic Lab Routine Colon cancer Ever y 3 weeks for 12 panel (non-fasting) metastasized to liver Occurrences starting 02/11/2022 unti l 02/11/2023 CEA Lab Routine Colon cancer Every 3 weeks f or 12 metastasized to liver Occurr ences starting 02/11/2022 unti l 02/11/2023 TSH Lab Routine Colon cancer Every 3 weeks f or 12 metastasized to liver Occurrences starting High risk medication 022 until use 02/11/2023 T4, free Lab Routine Colon cancer Every 3 weeks f or 12 metastasized to liver Occurrences starting High risk medication 022 until use 02/11/2023 documented as of this encounter Visit Diagnoses Diagnosis Colon cancer metastasized to liver Malignant neoplasm of colon, unspecified site High risk medication use Encounter for long-term (current) use of other medications Colon cancer metastasized to liver Malignant neoplasm of colon, unspecified site documented in this encounter Care Teams Shear Operator Automatic Relationship Specialty Start Date End Date Mook Coffey DO PCP - General Family Medicine 02/16/[address] [place] [phone] documented as of this encounter
--- OUTSIDE RECORDS SUMMARY | 2022-03-25 01:25 | XMS_ITS | Encounter Summary ---
:1950 Author Organization [facility] Address [address] [place] [address] Care Team Providers Name Role Phone Berkley Madrigal MD Primary Care Provider Unavailable Encounter Details Date Type Department Care Team Description 05/17/2021 Lab Requisition [facility] Outr Resulting Lab, Pathology & Laboratory Provider [facility] [address] [id number] Social History Tobacco Use Types Packs/Day Years [...] Pathologist Sig nature Salmonella PCR Negative Negative [facility] SERVICES Shigella/Enteroinvasive Negative Negative [facility] SERVICES HN LAB CAMPYLOBACTER PCR Negative Negative [facility] ER LABORATORY SERVICES Shiga Toxin PCR Negative Negative [facility] SERVICES Specimen Feces - Specimen from rectum (specimen) Performing Organization Address City/State/ZIP Code Phon e Number [facility] [address] [place] [address] SERVICES OVA/PARASITE EXAM (05/17/2021 10:53 EST) Pathologist Sig nature Parasite No ova and parasites [facility] seen. LABORATORY SERVICES Specimen Feces - Specimen from rectum (specimen) Narrative [facility] - 05/19/2021 13:38 EST (If Cryptosporidium, Cyclospora, or Micr osporidium are suspected, specific tests must be requested.) Single negative specimen does not rule out the possibility of a parasitic infection. Performing Organization Address City/State/ZIP Code Phon e Number [facility] [address] [place] [address] SERVICES documented in this encounter Visit Diagnoses Not on filedocumented in this encounter Care Teams Texturing Machine Fixer Relationship Specialty Start Date End Date Berkley Madrigal MD PCP - General 01/16/09 documented as of this encounter
--- OUTSIDE RECORDS SUMMARY | 2022-03-25 01:25 | XMS_ITS | Encounter Summary ---
:1950 Author Organization [facility] Address [address] [place] [address] Care Team Providers Name Role Phone Mook Coffey DO Primary Care Provider Encounter Details Date Type Department Care Team Description 03/19/2022 Travel Social History Tobacco Use Types Packs/Day [...] Description 03/25/2022 Office Visit Ángel Hill MD [facility] [place] [address] Oncology Alyssa Joseph[address] [place] [address] 03/25/2022 Infusion Hematology and Oncology 03/31/2022 Office Visit Hematology and Alan Livingston M D [facility] HEMATOLOGY/[place] [address] Oncology Nilam So [facility] HEMATOLOGY/[place] [address] 04/15/2022 Office Visit Ángel Hill Oncology [facility] ONCOLOGY [place], [place] [address] (Wo rk) 04/15/2022 Infusion Hematology and Oncology 04/15/2022 Office Visit Hematology and Jazzy Armendariz R D [facility] CESAR HEMATOLOGY AND ONCOLOGY [place], [place] [address] (Wo rk) 09/05/2022 Scheduled View Only Obstetrics and Nurse, Julian COLEMAN, wood floor layer 09/05/2022 Office Visit Obstetrics and Shazia Whitley APRN Gynecology [facility] UROGYNECOLOGY [place], [place] [address] (Wo rk) documented as of this encounter Visit Diagnoses Not on filedocumented in this encounter Care Teams Systems Technologist Relationship Specialty Start Date End Date Mook Coffey DO PCP - General Family Medicine 02/16/[address] [place] [phone] documented as of this encounter
--- OUTSIDE RECORDS SUMMARY | 2022-03-25 01:25 | XMS_ITS | Encounter Summary ---
:1950 Author Organization [facility] [place] [address] Care Team Providers Name Role Phone Mook Coffey DO Primary Care Provider Reason for Visit Reason Comments Genetic Evaluation Consultation (Routine) - Closed Specialty Diagnoses / Procedures Referred By Contact Refer red To Contact Hematology and Oncology Diagnoses Malignant neoplasm of ascending colon Ángel Fischer Stj Hem Onc Offi ce [address] [place] [phone] [place] [address] Referral ID Status Reason Start Date Expiration Date Visits V isits Requested Authorized [id number] Closed Consult, 01/27/2022 01/27/2023 1 1 Test & Treat Encounter Details Date Type Department Care Team Description 02/22/2022 TH Visit Yaquelin Arreola Ma lignant neoplasm of ascending colon; (TeleHealth) Center at [facility] CLL (chronic lymphocytic leukemia); [facility] Colon cancer metastasized to liver; [address] History of SCC (squamous cell carcinoma) of skin; [place], [place] HEMATOLOGY AND Family hx o f melanoma; [phone] ONCOLOGY Family history of colon cancer [phone] [place], [place] [address] Social History Tobacco Use Types [...] documented as of this encounter Progress Notes Yaquelin Celis, ROBERT - 02/22/2022 1:00 PM EDT Carol Keller was seen by Yaquelin Celis [facility] in consultation at the request of Ángel Fischer to advise regarding possible heritable predisposition to cancer. I spent 35 minutes of this telehealth encounter with the patient gathering medical and family history and discussing the likelihood of a genetic predisposition to cancer and the option of genetic testing. Reason for referral/Chief complaint Personal history of CLL, squamous cell carcinoma, and metastatic colon cancer. Family history of melanoma, lung, breast, and colon cancer. Medical history Ms. Carol Keller is a 71 year-old female who has a personal history of chronic lymphocytic leukemia (CLL), squamous cell carcinoma, and metastatic colon cancer. She was diagnosed with CLL in December 2008 (w/ WBC 27k; P-53, CD38 and zap -70 negative. Cytogenetics 13 deletion (favorable prognosis). O bservation only). She also had a skin spot removed when she was 64 years old which pathology later classified it as squamous cell carcinoma. Her colon cancer was first detected on a CT abd/pelvis on 12/15/21. A follow-up colonoscopy on 12/20/21 found colorectal mucosa with high-grade dysplasia/intramucosal adenocarcinoma. 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 Per Dr. Fischer's notes from 02/11/22, liver lesions and small lung nodules were found on a repeat CT scan done on 02/09/22. He writes, Given the rise in CEA and new liverlesion(s), I think it is reasonable to assume that this represents stage IV colon cancer and to proceed with therapy. Of note, her IHC staining of her colon cancer tissue showed loss of MLH1 and PMS2 and retained expression of MSH2 and MSH6 proteins. MLH1 hypermethylation was not performed. Carol also reports that she had a hysterectomy shortly after her third child was born (around ~1980) due to uterine prolapse. Her ovaries and fallopian tubes are still intact. Family History of Cancer Problem Relation Age of Onset ??? Lung Cancer Father ??? Cancer Sister 71 in abdominal area ??? Colon Polyps Brother 70 1 malignant polyp removed ??? Melanoma Brother 61 ??? Breast Cancer Maternal Grandmother 50 ??? Colorectal Cancer Other ??? Colorectal Cancer Maternal Uncle 64 Maternal ethnic background is Japanese/Yakut. Paternal ethnic background is [place]onian. There is no known Ashkenazi Jainism ancestry. Genetic risk assessment Based on personal and/or family history, the likelihood that Carol would be found to have a mutation in a cancer predisposition gene is high enough to offer the option of genetic testing. 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 Additionally, while it is unclear what type of cancer her sister passed from, it is reasonable to suspect that if it was in the abdominal area, it could have potentially been a cancer related to Craft syndrome (gastric, ovarian, small bowel, pancreas). Given her sister's unknown cancer history and that she has two maternal relatives who developed colon cancer (maternal uncle and maternal great-uncle), it would be reasonable to offer genetic testing related to Craft syndrome. We discussed that testing could potentially impact medical management, identify additional cancer risks, as well as help to identify hereditary cancer risk for other family members. We discussed cancer risks associated with Craft syndrome, including colon, endometrial, ovarian, GI, and other cancers. We also reviewed medical management recommendations associated with mutations in the Craft syndrome genes, including more frequent colonoscopies starting at an earlier age. We reviewed her previous IHC testing results and discussed that this testing was performed on cells in her tumor. This testing is not genetic testing, but instead a screening that looks for the presence/absence of certain proteins to help identify patients with a higher likelihood for a potentially inherited genetic mutation. Carol's cancer did show loss of IHC staining for 2 proteins and therefore it is possible that she could harbor a germline mutation. However, it is also possible that these mutations only occurred in the tumor and were not inherited. In order to confirm or rule out a hereditary cause, germline genetic testing would be required. Panel genetic testing for an inherited predisposition to cancer, including the Craft syndrome genes,was discussed. The risks, benefits and limitations of panel genetic testing were reviewed, specifically a high rate of identifying a variant of uncertain significance, lack of knowledge of cancer risk for newly identified, moderate risk genes included in the panel and lack of effective screening, as well as cancer risk for other cancers not observed in the family. We reviewed dominant inheritance, meaning that if a mutation is detected there is a 50% chance for Carol's children and siblings to have also inherited the same gene alteration for the majority of genes being analyzed. Carol opted for testing with [employer] Multi-Cancer Panel, a next generation sequencing panel that simultaneously analyzes 84 genes, including the Craft syndrome genes, that contribute to increasedrisk for cancer. Carol was verbally consented and will be sent consent forms through [facility] to review, sign, and return. Her blood sample will be drawn on 03/04/22 at [facility] and sent to [facility]. We reviewed [employer] billing policy. Carol will be notified by text and/or email regarding her estimated out of pocket cost for testing once [employer] completes their benefits investigation. At thattime, if Carol is concerned about the estimated test cost she will have the option to contact [facility] directly and either apply for [employer] patient assistance program to try and reduce cost of testing based on income information, cancel testing, or switch to a self-pay option of $250. If [employer] does not respond to [employer], testing will be billed to her insurance as the default option. Testing will take up to 3 weeks from when the lab receives the sample. Carol will be contacted via telephone once her test results become available. If positive, we will offer a follow-up appointment. At that time, we will discuss with Carol the implications that this test result may have for her, as well as her family members. We will also provide Carol with screening guidelines for cancer prevention and early detection, as well as answer any questions she may have. documented in this encounter Plan of Treatment Upcoming Encounters Date Type Specialty Care Team Description 03/25/2022 Office Visit Hematology and Ángel Fischer MD [facility] [place] [address] Oncology Alyssa Joseph, [address] [address] 03/25/2022 Infusion Hematology and Oncology 03/31/2022 Office Visit Hematology and Alan Livingston M D [facility] HEMATOLOGY/[place] [address] Oncology Nilam So VISCERA WASHER [facility] HEMATOLOGY/[place] [address] 04/15/2022 Office Visit Hematology and Ángel Fischer Oncology [facility] ONCOLOGY [place], [place] [address] (Wo rk) 04/15/2022 Infusion Hematology and Oncology 04/15/2022 Office Visit Hematology and Jazzy Armendariz R D Oncology [facility] CESAR HEMATOLOGY AND ONCOLOGY [place], [place] [address] (Wo rk) 09/05/2022 Scheduled View Only Obstetrics and Nurse, Oboneal COLEMAN, residential caregiver 09/05/2022 Office Visit Obstetrics and Shazia Whitley APRN Gynecology [facility] UROGYNECOLOGY [place], [place] [address] (Wo rk) Scheduled Referrals Name Type Priority Associated Diagnoses Order S chedule Referral to Outpatient Referral Routine Malignant neoplasm Or dered: Familial Cancer of ascending colon 2021 documented as of this encounter Visit Diagnoses Diagnosis Malignant neoplasm of ascending colon CLL (chronic lymphocytic leukemia) Chronic lymphoid leukemia, without menti on of having achieved remission Colon cancer metastasized to liver Malignant neoplasm of colon, unspecified site History of SCC (squamous cell carcinoma) of skin Personal history of other malignant neop lasm of skin Family hx of melanoma Family history of other specified malign ant neoplasm Family history of colon cancer Family history of malignant neoplasm of gastrointestinal tract Colon cancer metastasized to liver Malignant neoplasm of colon, unspecified site documented in this encounter Care Teams Lead Producer Relationship Specialty Start Date End Date Mook Coffey DO PCP - General Family Medicine 02/16/[address] [place] [phone] documented as of this encounter
--- OUTSIDE RECORDS SUMMARY | 2022-03-25 01:25 | XMS_ITS | Encounter Summary ---
:1950 Author Organization [facility] Address [address] [place] [address] Care Team Providers Name Role Phone Berkley Madrgial MD Primary Care Provider Unavailable Encounter Details Date Type Department Care Team Description 12/31/2021 Lab Requisition [facility] Blayne Shrestha for other Pathology & MD Sabino general examination Laboratory Medicine [address] [place] [address] [address] [place] [address] [place], [place] [id number] Social History Tobacco Use Types Packs/Day Years [...] encounter Results SURGICAL PATHOLOGY (12/30/2021 18:08 EDT) Amendment Comment This amendment is issued [facility] to correct the margin CENTER [...] changes were discussed with Dr. Ángel Fischer ([facility]) on 02/11/22. The remainder of the report remains unchanged. Note to Patient The following [facility] pathology results have CENTER been interpreted by your LABORATORY pathologist and may be SERVICES available to you before your health provider has had the opportunity to review them. Please allow time for your provider to receive these results and explore management options, if applicable. Final Diagnosis A. RIGHT COLON, HEMICOLECTOMY: [facility] ICAL - Invasive moderately-differ entiated adenocarcinoma with [...] involving lymph nodes. See comment. Diagnosis Comment Bradley Linebacker Crewmember slides of thi s case were reviewed at the gastrointestinal/liver intradepartmental consultation conference (AA, ). This case was reviewed in consultation by Dr. 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 CENTER LABORATORY SERVICES RESULTS OF IMMUNOHISTOCHEMIC AL STAINING: Loss of MLH1 and PMS2 and retained expression of MSH2 and MSH6 proteins TISSUE SUBMITTED: Formalin f ixed paraffin embedded tissue block labelled ([id number]), block (A6) TUMOR TYPE: Invasive adenocarcinoma INTERPRETATION: [...] notice. ANTIBODY (CLONE) (BLOCK): RESULT MLH1 (M1, [place]) (block A6): Loss of expression in t he tumor PMS2 (A16-4, [place]) (block A6): Loss of expression i n the tumor MSH2 ([id number], [place]) (block A6): Retained express ion in tumor MSH6 (SP93, [place]) (block A6): Retained expression i n tumor Internal controls: Adequate Immunoperoxidase stains were performed on this case to further characterize the lymphoid lesion. ANTIBODY(CLONE)(BLOCK):RESULT CD3 (SP7, [employer]) (A22): Highlights backgro und T cells CD20 (L26, [place]) (A22): Highlights neoplastic B isaac ls CD5 (SP19, [place]) (A22): P ositive in neoplastic B cells; Highlights background T cells LEF-1 (EP310, [employer]) ( A22): Positive in neoplastic B cells; Highlights background T cells Cyclin D1(SP4-R, [place]) (A22): Negative CD10 (SP67, [place]) (A22): Positive in germinal cente r BCL-2 [...] characteristics have been de termined by [facility] and/or by the referring laboratory. The [...] clinical laboratory testing. Attestation There was significant [facility] ent resident/fellow CENTER electronical ly involvement in [...] Including Transanal Disk Excision of Rectal Neoplasms [facility] COLON AND RECTUM: RESECTION - All Specimens [place] 8th Edition - Protocol posted: 07/18/2018 LABORATORY [...] Findings: ?Adenoma(s) Clinical History Right colon lesion [facility] Gross Description A. [facility] Received in formalin chris d [...] A17- multiple lymph nodes, submitted intact A18- sales representative metals grossly positive lymph node A19- sales representative metals grossly positive lymph node A20- 1 lymph node, bisected A21- 4 lymph nodes, submitted intact A22- 1 lymph node, bisected A23- 1 lymph node, bisected A24- 4 lymph nodes, submitted intact A25- 4 lymph nodes, submitted intact A26- 2 lymph nodes, submitted intact A27- 2 lymph nodes, submitted intact FACUNDO MONROY(ASCP) 01/03/2022 14:39 Resident/Fellow: Servando Barragan MD [facility] Performing Lab [facility] Scanned Images [facility] Specimen Tissue - Entire sigmoid colon (body stru cture) Performing Organization Address City/State/[facility] Code Phon e Number [facility] [address] [place] [address] SERVICES documented in this encounter Visit Diagnoses Diagnosis Encounter for other general examination documented in this encounter Care Teams Elevator Runner Relationship Specialty Start Date End Date Berkley Madrigal MD PCP - General 01/16/09 documented as of this encounter
--- OUTSIDE RECORDS SUMMARY | 2022-03-25 01:25 | XMS_ITS | Encounter Summary ---
:1950 Author Organization [facility] [place] [address] Care Team Providers Name Role Phone Mook Coffey DO Primary Care Provider Reason for Referral Diagnostic Test (Routine) - Authorized Specialty Diagnoses / Procedures Referred By Contact Refer red To Contact Radiology Diagnoses Colon cancer metastasized to liver Alisa Cummins APRN Procedures CT Chest Abdomen Pelvis w Contrast (Generic) [address] [place] [address] HEMATOLOGY AND [facility] [place], [place] [address] Referral ID Status Reason Start Expiration Visits Visits Date Date Requested Authorized [id number] Authorized Specialty 09/07/2023 1 1 Service 2 Requested Encounter Details Date Type Department Care Team Description 03/04/2022 Office Visit Hematology/Oncology Sonny Fischer MD [facility] [place] [place] [address] [facility] [address] [place] [address] [place] [address] [address] [phone] Social History Tobacco Use Types [...] Sign Reading Time Taken Comments Blood Pressure 144/76 03/04/2022 11:35 AM EDT Pulse 73 03/04/2022 11:35 AM EDT Temperature 36.7 ??C (98 ??F) 03/04/2022 11:35 AM EDT Respiratory Rate 18 03/04/2022 11:35 AM EDT Oxygen Saturation 97% 03/04/2022 11:35 AM EDT Inhaled Oxygen Concentration - - Weight 69.7 kg (153 lb 9.6 oz) 03/04/2022 11:35 AM EDT Height 163.3 cm (5' 4.29) 03/04/2022 11:35 AM EDT Body Mass Index 26.13 03/04/2022 11:35 AM EDT documented in this encounter Progress Notes Alisa Cummins, LOCAL SALES ASSOCIATE - 03/04/2022 11:30 AM EDT Subjective Patient ID: Carol [...] medical/surgical history. B. Colonoscopy 12/20/21 - Path ([facility] review) - Colon, right, lesion, ?? biopsy: [...] Keller (Betty) is seen in f/u of metastatic colon cancer. The history is summarized above. Anahi is accompanied to clinic today by her son Nathaniel. She is in good spirits and is overall feeling well. She received Cycle 1 of pembrolizumab well with no apparent side effects. She did note a small raised area to the medial side of her port insertion site. She thought it was ascab and cut it off. On inspection, it feels like it may be a suture protruding through the skin. Itdoes not appear to have broken through, but there is a small scab. Discussed again the potential immune mediated side effects of immunotherapy in detail, she is aware.She denies any skin changes, bowel habit changes, or unusual fatigue. No difficulty breathing, cough, or chest pain. Soc Hx:, lives in [place], [place] Tob - Never Etoh - Rare [...] had colon cancer Review of Systems Constitutional: Negative for activity change, appetite change, fever [...] and Affect: Mood normal. Behavior: Behavior normal. Wt Readings from Last 3 Encounters: 03/04/22 69.7 kg (153 lb 9.6 oz) 02/11/22 70 kg (154 lb 6.4 oz) 01/27/22 69.6 kg (153 lb 7 oz) Temp Readings from Last 3 Encounters: 03/04/22 36.7 ??C (98 ??F) (Oral) 02/11/22 36.3 ??C (97.3 ??F) 01/27/22 36 ??C (96.8 ??F) (Temporal) BP Readings from Last 3 Encounters: 03/04/22 144/76 02/11/22 147/74 01/27/22 136/59 Pulse Readings from Last 3 Encounters: 03/04/22 73 02/11/22 76 01/27/22 66 Labs: WBC/ANC - 62.78/1.88, Hgb/Hct - 12.3/41.2, Plts - 194. BUN/Cr - 17/1.13. Lytes and LFTs unremarkable. CEA 03/04/22 pending 02/11/22 693.3 01/27/22 422 12/20/21 281.2 DPYD - RESULTS: [...] positive. The pathology has been reviewed at [facility] and the report concurs with the [facility] report, including margin positivity. I spoke with Dr. Dietrich at [facility] and Dr. Muñoz at [facility]. The margin inquestion is related [...] elsewhere in a short period of time. In terms of specific therapies, we discussed that standard upfront therapy for dMMR stage IV colorectal cancer consists of immunotherapy rather than cytotoxic chemotherapy based on trials showing improved RR and PFS. We reviewed that we would proceed with pembrolizumab and that this is given every three weeks. Potential side effects were discussed, including immune related side effects which may be serious and even fatal in a small percentage of people. Therapy began with C1 on 02/11/22. She had an MRI on 02/16 and we reviewed the results confirming the liver and randy metastasis. This will not change the plan to continue pembrolizumab. We will plan to do a restaging scan after her third cycle. She will receive cycle 2 today. Labs and toxicities assessed and acceptable for ongoing treatment. She had an appointment with the [facility] cancer program on 02/22 and we are drawing her invitae panelwhile she's here today. She was advised to keep the area clean, and use an antibacterial ointment on it. Signs/ symptoms of infection reviewed, she is to call the office if the site gets red, warm, or begins draining fluid. We will plan to see her back in 3 weeks for cycle 3. Alisa Cummins APRN documented in this encounter Plan of Treatment Upcoming Encounters Date Type Specialty Care Team Description 03/25/2022 Office Visit Hematology and Ángel Fischer MD [facility] [place] [address] Oncology Alyssa Joseph APRN [address] [place] [address] DR [place] [address] 03/25/2022 Infusion Hematology and Oncology 03/31/2022 Office Visit Hematology and Alan Livingston M D [facility] HEMATOLOGY/[place] [address] Oncology Nilam So APRN [facility] HEMATOLOGY/[place] [address] 04/15/2022 Office Visit Hematology and Ángel Fischer Oncology [facility] ONCOLOGY [place], [place] [address] (Wo rk) 04/15/2022 Infusion Hematology and Oncology 04/15/2022 Office Visit Hematology and Jazzy Armendariz R D Oncology [facility] HEMATOLOGY AND ONCOLOGY [place], [place] [address] (Wo rk) 09/05/2022 Scheduled View Only Obstetrics and NurseJulian II, homoeopath 09/05/2022 Office Visit Obstetrics and Shazia Whitley APRN Gynecology [facility] UROGYNECOLOGY [place], [place] [address] (Wo rk) Scheduled Orders Name Type Priority Associated Diagnoses Order S chedule CT Chest Abdomen Imaging Routine Colon cancer metastasize d Expected: 04/06/2022 Pelvis w Contrast to liver (Approxima te), (Generic) Expires: 2022 documented as of this encounter Visit Diagnoses Diagnosis Colon cancer metastasized to liver Malignant neoplasm of colon, unspecified site Colon cancer metastasized to liver Malignant neoplasm of colon, unspecified site documented in this encounter Care Teams Care Worker Relationship Specialty Start Date End Date Mook Coffey DO PCP - General Family Medicine 02/16/[address] [place] [phone] documented as of this encounter
--- OUTSIDE RECORDS SUMMARY | 2022-03-25 01:25 | XMS_ITS | Encounter Summary ---
:1950 Author Organization [place] [address] Care Team Providers Name Role Phone Mook Coffey DO Primary Care Provider Reason for Referral Diagnostic Test (Routine) - Authorized Specialty Diagnoses / Procedures Referred By Contact Refer red To Contact Radiology Diagnoses Malignant neoplasm of ascending colon Ángel Fischer MD Procedures CT Chest Abdomen Pelvis w Contrast (Generic) [facility] [place] [address] Referral ID Status Reason Start Expiration Visits Visits Date Date Requested Authorized [id number] Authorized Specialty 01/31/2022 08/01/2023 1 1 Service Requested Encounter Details Date Type Department Care Team Description 01/31/2022 Orders Only Hematology and Ángel Fischer Maligna nt neoplasm of Oncology at [facility] MD ascending colon [facility] [address] [place] [phone] ONCOLOGY [phone] [place], [place] [address] Social History Tobacco Use Types [...] Description 03/25/2022 Office Visit Hematology and Ángel Fsicher MD [facility] [place] [address] Oncology Alyssa Joseph, [address] [place] [address] 03/25/2022 Infusion Hematology and Oncology 03/31/2022 Office Visit Hematology and Alan Livingston M D [facility] HEMATOLOGY/[place] [address] Oncology Nilam So, INTERNAL CONTROL CONSULTANT [facility] HEMATOLOGY/[place] [address] 04/15/2022 Office Visit Hematology and Ángel Fischer Oncology [facility] ONCOLOGY [place], [place] [address] (Wo rk) 04/15/2022 Infusion Hematology and Oncology 04/15/2022 Office Visit Hematology and Jazzy Armendariz R D Oncology [facility] HEMATOLOGY AND ONCOLOGY [place], [place] [address] (Wo rk) 09/05/2022 Scheduled View Only Obstetrics and Nurse, Oboneal COLEMAN, cloth boil off machine operator 09/05/2022 Office Visit Obstetrics and Shazia Whitley APRN Gynecology [facility] UROGYNECOLOGY [place], [place] [address] (Wo rk) Scheduled Orders Name Type Priority Associated Diagnoses Order S chedule CT Chest Abdomen Imaging Routine Malignant neoplasm of Ex pected: 02/08/2022 Pelvis w Contrast ascending colon (Approx imate), (Generic) Expires: 2022 documented as of this encounter Visit Diagnoses Diagnosis Malignant neoplasm of ascending colon Colon cancer metastasized to liver Malignant neoplasm of colon, unspecified site documented in this encounter Care Teams Video Engineer Relationship Specialty Start Date End Date Mook Coffey DO PCP - General Family Medicine 02/16/[address] [place] [phone] documented as of this encounter
--- OUTSIDE RECORDS SUMMARY | 2022-03-25 01:25 | XMS_ITS | Encounter Summary ---
:1950 Author Organization [facility] Address [facility] [address] [place] [address] Care Team Providers Name Role Phone Mook Coffey DO Primary Care Provider Reason for Visit Reason Onset Date Comments Labs Only 03/04/2022 Critical WBC Encounter Details Date Type Department Care Team Description 03/04/2022 Telephone Hematology Oncology at [place] [place], Labs Only (Critical [facility] RN WBC) [address] [place] [address] Social History Tobacco Use Types [...] this encounter Miscellaneous Notes Telephone Encounter - [place] [place], RN - 03/04/2022 11:[address] Fischer notified of critical WBC documented in this encounter Plan of Treatment Upcoming Encounters Date Type Specialty Care Team Description 03/25/2022 Office Visit Hematology and Ángel Fischer MD [facility] [place] [address] Oncology Alyssa Joseph[address] [place] [address] 03/25/2022 Infusion Hematology and Oncology 03/31/2022 Office Visit Hematology and Alan Livingston M D [facility] HEMATOLOGY/[place] [address] Oncology Nilam So PRODUCTION CONTROL [facility] [address] 04/15/2022 Office Visit Hematology and Ángel Fischer, Oncology [facility] ONCOLOGY [place], [place] [address] (Wo rk) 04/15/2022 Infusion Hematology and Oncology 04/15/2022 Office Visit Hematology and Jazzy Armendariz R D Oncology [facility] DRIVE HEMATOLOGY AND ONCOLOGY [place], [place] [address] (Wo rk) 09/05/2022 Scheduled View Only Obstetrics and Julian Enciso II, RN Gynecology 09/05/2022 Office Visit Obstetrics and Shazia Whitley APRN Gynecology [facility] UROGYNECOLOGY [place], [place] [address] (Wo rk) documented as of this encounter Procedures Procedure Name Priority Date/Time Associated Diagnosis Comme nts CBC (WITH DIFF) Routine 03/04/2022 Results for this procedure are in the resu lts section. documented in this encounter Results (ABNORMAL) CBC (with Diff) (03/04/2022) [facility] gist Method Time Signature WBC 62.78 (Critical) RBC 4.81 Hemoglobin 12.3 Hematocrit 41.2 Platelets 194 Neutr Abs (ANC) 1.88 Lymphocyte Abs 58.39 (H) Monocyte Abs 1.88 (H) Specimen (Source) Anatomical Location Collection Method / Collectio n Time Received Time / Laterality Volume Blood 03/04/2022 Historical Provider HEMATOLOGY ORDERABLES documented in this encounter Visit Diagnoses Not on filedocumented in this encounter Care Teams Home Health Assistant Relationship Specialty Start Date End Date Mook Coffey DO PCP - General Family Medicine 02/16/[address] [place] [phone] documented as of this encounter
--- OUTSIDE RECORDS SUMMARY | 2022-03-25 01:25 | XMS_ITS | Encounter Summary ---
:1950 Author Organization [facility] Address [address] [address] Care Team Providers Name Role Phone Mook Coffey DO Primary Care Provider Encounter Details Date Type Department Care Team Description 02/25/2022 Orders Only Hematology and Ezekiel Ricci, CLL (chr onic lymphocytic leukemia); Oncology at [facility] Malignant neoplasm of ascending colon; [facility] Col on cancer metastasized to liver; Drive Family history of colon cancer [place], [place] HEMATOLOGY/ONCOLOG [address] Y DEPT. [phone] [place], [place] [address] Social History Tobacco Use Types [...] Fischer MD [facility] [place] [address] Oncology Alyssa Joseph[address] [place] [address] 03/25/2022 Infusion Hematology and Oncology 03/31/2022 Office Visit Hematology and Alan Livingston M D [facility] DR HEMATOLOGY/[place] [address] Oncology Nilam So APRN [facility] HEMATOLOGY/[place] [address] 04/15/2022 Office Visit Hematology and Ángel Fischer, Oncology [facility] ONCOLOGY [place] [phone] (Wo rk) 04/15/2022 Infusion Hematology and Oncology 04/15/2022 Office Visit Hematology and Jazzy Armendariz R D Oncology [facility] DR[address] HEMATOLOGY AND ONCOLOGY [place], [place] [address] (Wo rk) 09/05/2022 Scheduled View Only Obstetrics and Nurse, Julian COLEMAN, hook up 09/05/2022 Office Visit Obstetrics and Shazia Whitley APRN Gynecology [facility] UROGYNECOLOGY [place], [place] [address] (Wo rk) Scheduled Orders Name Type Priority Associated Diagnoses Order S chedule Miscellaneous Lab request Lab Routine CLL (chronic ly mphocytic Expected: leukemia) 03/04/2022, Expires: Malignant neoplasm of 2022 ascending colon Colon cancer metastasized to liver Family history of colon cancer documented as of this encounter Visit Diagnoses Diagnosis CLL (chronic lymphocytic leukemia) Chronic lymphoid leukemia, without menti on of having achieved remission Malignant neoplasm of ascending colon Colon cancer metastasized to liver Malignant neoplasm of colon, unspecified site Family history of colon cancer Family history of malignant neoplasm of gastrointestinal tract Colon cancer metastasized to liver Malignant neoplasm of colon, unspecified site documented in this encounter Care Teams Referral Agent Relationship Specialty Start Date End Date Mook Coffey DO PCP - General Family Medicine 02/16/[address] [place] [phone] documented as of this encounter
--- OUTSIDE RECORDS SUMMARY | 2022-03-25 01:26 | XMS_ITS | Encounter Summary ---
:1950 Author Organization [facility] [place] [address] Care Team Providers Name Role Phone Mook Coffey DO Primary Care Provider Encounter Details Date Type Department Care Team Description 03/11/2021 Notes Only [facility] [place] [address] Social History Tobacco Use Types Packs/Day [...] EDT If pt calls per Chika Crandall REGIONAL WILDLIFE AGENT: If pt calls, she had thought she would need cipro for this, but the colony count of E coli is low and Macrobid is better. documented in this encounter Plan of Treatment Upcoming Encounters Date Type Specialty Care Team Description 03/25/2022 Office Visit Hematology and Ángel Fischer MD [facility] [place] [place] [address] Oncology Alyssa Joseph[address] [place] [address] 03/25/2022 Infusion Hematology and Oncology 03/31/2022 Office Visit Hematology and Alan Livingston M D [facility] HEMATOLOGY/[place] [address] Oncology Nilam So, [facility] HEMATOLOGY/[place] [address] 04/15/2022 Office Visit Hematology and Ángel Fischer, Oncology [facility] ONCOLOGY [place], [place] [address] (Wo rk) 04/15/2022 Infusion Hematology and Oncology 04/15/2022 Office Visit Hematology and Jazzy Armendariz R D Oncology [facility] HEMATOLOGY AND ONCOLOGY [place], [place] [address] (Wo rk) 09/05/2022 Scheduled View Only Obstetrics and NurseJulian II, flake miller wheat and oats 09/05/2022 Office Visit Obstetrics and Shazia Whitley APRN Gynecology [facility] UROGYNECOLOGY [place], [place] [address] (Wo rk) documented as of this encounter Visit Diagnoses Not on filedocumented in this encounter Care Teams Applied Researcher Relationship Specialty Start Date End Date Mook Coffey DO PCP - General Family Medicine 02/16/[address] [place] [phone] documented as of this encounter
--- OUTSIDE RECORDS SUMMARY | 2022-03-25 01:26 | XMS_ITS | Encounter Summary ---
:1950 Author Organization [facility] Address [address] [facility] [address] [place] [address] Care Team Providers Name Role Phone Mook Coffey DO Primary Care Provider Encounter Details Date Type Department Care Team Description 01/10/2022 Ancillary Procedure Radiology Library at Ozzy Coffey, [facility] DO [address] [id number] [phone] (Wo rk) Social History Tobacco Use Types [...] Fischer MD [facility] [place] [address] Oncology Alyssa Joseph[address] [place] [address] 03/25/2022 Infusion Hematology and Oncology 03/31/2022 Office Visit Hematology and Alan Livingston M D [facility] HEMATOLOGY/[place] [address] Oncology Nilam So [facility] HEMATOLOGY/[place] [address] 04/15/2022 Office Visit Ángel Hill Oncology [facility] ONCOLOGY [place], [place] [address] (Wo rk) 04/15/2022 Infusion Hematology and Oncology 04/15/2022 Office Visit Hematology and Jazzy Armendariz R D Oncology [facility] DRIVE HEMATOLOGY AND ONCOLOGY [place], [place] 0[address] (Wo rk) 09/05/2022 Scheduled View Only Obstetrics and Julian Enciso II, emergency room physician 09/05/2022 Office Visit Obstetrics and Shazia Whitley APRN Gynecology [facility] UROGYNECOLOGY [place], [place] [address] (Wo rk) documented as of [...] Time Received Time / Laterality Volume Narrative CORNELIA OROZCO - 01/26/2022 11:59 AM EDT This exam is auto-finalizing. It's purpo se is for storage only. Mook Coffey DO IMG FILM LIBRARY ORDERABLES Performing Organization Address City/State/ZIP Code Phon e Number [place], [place] documented in this encounter Visit Diagnoses Not on filedocumented in this encounter Care Teams Crystal Lapper Relationship Specialty Start Date End Date Mook Cofefy DO PCP - General Family Medicine 02/16/18 [address] [place] [phone] documented as of this encounter
--- OUTSIDE RECORDS SUMMARY | 2022-03-25 01:26 | XMS_ITS | Encounter Summary ---
:1950 Author Organization [facility] [place] [address] Care Team Providers Name Role Phone Mook Coffey DO Primary Care Provider Encounter Details Date Type Department Care Team Description 01/27/2022 Hospital Encounter Hematology and Other i mara deficiency anemia; Oncology at [facility] Malignant neoplasm of ascend ing colon; [facility] [place] [address] Social History Tobacco Use Types Packs/Day [...] Visit Hematology and Ángel Fischer MD [facility] [place] [address] Oncology Alyssa Joseph [address] [place] [address] 03/25/2022 Infusion Hematology and Oncology 03/31/2022 Office Visit Hematology and Alan Livingston M D [facility] HEMATOLOGY/[place] [address] Oncology Nilam So MOLDER WAX BALL [facility] HEMATOLOGY/[place] [address] 04/15/2022 Office Visit Ángel Hill Oncology MD [facility] ONCOLOGY [place], [place] 0[address] (Wo rk) 04/15/2022 Infusion Hematology and Oncology 04/15/2022 Office Visit Hematology and Jazzy Armendariz R D Oncology [facility] HEMATOLOGY AND ONCOLOGY [place], [place] 0[address] (Wo rk) 09/05/2022 Scheduled View Only Obstetrics and Nurse, Julian COLEMAN, pre press manager 09/05/2022 Office Visit Obstetrics and Shazia Whitley APRN Gynecology [facility] UROGYNECOLOGY [place], [place] [address] (Wo rk) documented as of [...] Scan, Peripheral Blood (01/27/2022 12:16 PM EDT) [facility] gist Method Time Signature Plat Estimate Normal [facility] RBC Morphology Abnormal [facility] Hypochromia Slight [facility] Ovalocytes 1-5 /HPF [facility] Tear Drop Cells 1-5 /HPF [facility] Smudge Cells Present [facility] Specimen Anatomical Collection Method Collection Time Receive d Time (Source) Location / / Volume Laterality Blood 01/27/2022 12:16 01/27/2022 PM EDT 12:23 PM EDT Resulting Agency Comment Spec In Lab Ángel Fischer MD HEMATOLOGY ORDERABLES Performing Organization Address City/State/ZIP [place] [address] (ABNORMAL) Differential, Automated (01/27/2022 12:16 PM EDT) [facility] Method Time Signature Neutrophils % 8.9 % [facility] Neutr Abs (ANC) 7.99 (H) 1.70 - [facility] 6.10 [facility] x10(3)/[facility] LABORATORY Lymphocytes % 89.6 % [facility] Lymphocytes Abs 80.6 (H) 0.9 - 3.2 [facility] x10(3)/[facility] LABORATORY Monocytes % 0.7 % [facility] Monocyte Abs 0.7 0.3 - 0.9 [facility] x10(3)/[facility] LABORATORY Eosinophils % 0.1 % [facility] Eosinophils Abs 0.1 0.0 - 0.4 [facility] x10(3)/[facility] LABORATORY Basophils % 0.4 % [facility] Basophils Abs 0.4 (H) 0.0 - 0.1 [facility] x10(3)/[facility] LABORATORY Immature Gran % 0.30 % [facility] Comment: Immature granulocytes(IG's)percentage an d absolute count will include metamyelocytes, myelocytes, and promyelo cytes. Blood smears from CBCs yielding IG's will be scanned manually for concor dance. If this scan disagrees with the automated IG or if promyelocytes are not ed, a manual differential will be performed. Claudia Gran Abs 0.28 (H) 0.00 - 0.04 x10(3)/[facility] LABORATORY Specimen Anatomical Collection Method Collection Time Receive d Time (Source) Location / / Volume Laterality Blood 01/27/2022 12:16 01/27/2022 PM EDT 12:23 PM EDT Resulting Agency Comment Spec In Lab Ángel Fischer MD HEMATOLOGY ORDERABLES Performing Organization Address City/State/ZIP Code Phon e Number [address] (ABNORMAL) Hemogram (01/27/2022 12:16 PM EDT) [facility] gist Method Time Signature WBC 90.0 4.0 - 9.5 [facility] ([facility] x[facility](3)/[facility] LABORATORY RBC 4.39 4.00 - [facility] 5.21 [facility] x10(6)/[facility] LABORATORY Hemoglobin 11.0 (L) 11.7 - [facility] 15.5 g/dL [facility] Hematocrit 38.2 35.7 - [facility] 45.8 % [facility] MCV 87.0 82.6 - [facility] 94.4 [facility] LABORATORY MCH 25.1 (L) 27.1 - [facility] 32.0 pg [facility] MCHC 28.8 (L) 31.7 - [facility] 35.0 g/dL [facility] Platelets 244 145 - 357 [facility] x[facility](3[facility] LABORATORY RDWSD 50.0 (H) 37.0 - [facility] 46.0 [facility] LABORATORY RDWCV 16.3 (H) 11.5 - [facility] 14.1 % [facility] MPV 10.8 7.6 - 12.9 [facility] nRBC % Auto 0.0 % [facility] nRBC Abs Auto 0.000 0.000 - [facility] 0.000 [facility] x10(3)/[facility] LABORATORY Specimen Anatomical Collection Method Collection Time Receive d Time (Source) Location / / Volume Laterality Blood 01/27/2022 12:16 01/27/2022 PM EDT 12:23 PM EDT Resulting Agency Comment Spec In Lab Ángel Fischer MD HEMATOLOGY ORDERABLES Performing Organization Address City/State/ZIP [place] [address] Comprehensive metabolic panel (non-fasting) (01/27/2022 12:16 PM EDT) P athologist Signature Glucose Lvl 135 65 - 199 [facility] mg/dL [facility] Comment: Diabetes: >=200 mg/dL plus symp toms BUN 15 8 - 18 mg/dL [facility] Creatinine 0.77 0.70 - 1.20 mg/dL [facility] Sodium 142 135 - 145 mmol/L [facility] Potassium 4.1 3.5 - 5.0 mmol/L [facility] Comment: Please note: ??Patients with [...] Anion Gap 9 5 - 15 mmol/L [facility] Calcium 9.4 8.5 - 10.5 mg/dL [facility] Total Protein 6.7 6.1 - 8.0 g/dL [facility] Albumin 4.5 3.2 - 5.2 g/dL [facility] AST 22 0 - 30 unit/L [facility] ALT 12 0 - 30 unit/L [facility] Alk Phos 65 35 - 105 unit/L [facility] Total Bilirubin 0.3 0.2 - 1.3 mg/dL [facility] Estimated GFR 82 >=60 mL/min/1.73 [...] Fischer MD CHEMISTRY ORDERABLES Performing Organization Address City/[facility] Phon e Number [address] CEA (01/27/2022 12:16 PM EDT) P athologist Signature CEA 422.0 ng/mL [facility] [...] Fischer MD CHEMISTRY ORDERABLES Performing Organization Address [facility] Phon e Number [address] DPYD PCR (01/27/2022 12:16 PM EDT) Component Value Ref Test Analysis Performed At [facility] gist Range Method Time Signature DPYD PCR INDICATION FOR STUDY: DPYD Genotyping [facility] RESULTS: Normal metabolizer, *1/*1 genotype [facility] INTERPRETATION: ??Normal gen otype, with normal [...] probes for each varian t: DPYD*2A ??(c.1905+1G>A, [id number]), DPYD*13 (c.1679T>G , [id number]), and DP YD c.2846A>T ([id number]). All variant positions are provided on the [...] Genomics and Advanced Technology (CGAT) at the [facility]. It has not been cleared or approved [...] Clin Pharmacol Ther. 2018 Jun;103(2):21 0-216. PMID: [id number] 3. Mars Sparks, Walt oRberts, Yogesh Rapp, et al. Fluorouracil Ther apy and DPYD Genotype. In: Medical Genetics Summaries [Internet]. B vicente MONTES): National LiveAction for FXTrip Inf ornetion (); 2011? 2015 3. PMID: [id number] Specimen Anatomical Collection Method Collection Time Receive d Time (Source) Location / / Volume Laterality Blood 01/27/2022 12:16 01/27/2022 1:17 PM EDT PM EDT Resulting Agency Comment Spec In Lab Ángel Fischer MD CHEMISTRY ORDERABLES Performing Organization Address City/[facility]/ZIP Code Phon e Number [address] TSH (01/27/2022 12:16 PM EDT) athologist Signature TSH 2.48 0.27 - 4.20 [facility] BROUSSARD mcIU/mL [facility] Comment: Reference Interval (mcIU/mL): Females: ??First Trimester: 0.23-3.88 ??Second Trimester: 0.22-3.90 ??Third Trimester: 0.44-4.66 Specimen Anatomical Collection Method Collection Time Receive d Time (Source) Location / / Volume Laterality Blood 01/27/2022 12:16 01/27/2022 PM EDT 12:23 PM EDT Resulting Agency Comment Spec In Lab Ángel Fischer MD CHEMISTRY ORDERABLES Performing Organization Address City/[facility]/ZIP Code Phon e Number [address] (ABNORMAL) Iron and TIBC (01/27/2022 12:16 PM EDT) athologist Signature Iron 39 30 - 150 [facility] mcg/dL [facility] TIBC 361 250 - 450 [facility] mcg/dL [facility] Iron Saturation 11 (L) 20 - 50 % [facility] Specimen Anatomical Collection Method Collection Time Receive d Time (Source) Location / / Volume Laterality Blood 01/27/2022 12:16 01/27/2022 PM EDT 12:23 PM EDT Resulting Agency Comment Spec In Lab Ángel Fischer MD CHEMISTRY ORDERABLES Performing Organization Address City/[facility]/ZIP Code Phon e Number [address] Ferritin (01/27/2022 12:16 PM EDT) athologist Signature Ferritin 39 30 - 400 [facility] ng/mL [facility] Comment: Pediatric reference ranges not verified at [facility], interpret with caution. Reference ranges for females [...] Organization Address City/State/ZIP [place] [address] documented in this encounter Visit Diagnoses Diagnosis Other iron deficiency anemia Malignant neoplasm of ascending colon Chronic fatigue Other malaise and fatigue Colon cancer metastasized to liver Malignant neoplasm of colon, unspecified site documented in this encounter Care Teams Exchange Architect Relationship Specialty Start Date End Date Mook Coffey DO PCP - General Family Medicine 02/16/[address] [place] [phone] documented as of this encounter
--- OUTSIDE RECORDS SUMMARY | 2022-03-25 01:26 | XMS_ITS | Encounter Summary ---
:1950 Author Organization [facility] [place] [address] Care Team Providers Name Role Phone Mook Coffey DO Primary Care Provider Encounter Details Date Type Department Care Team Description 12/15/2021 Ancillary Procedure Radiology Library at [facility], Bennie Lehman, [facility] [address] [place] [address] ONCOLOGY [phone] [place], [place] [address] (Wo rk) Social History Tobacco [...] Fischer MD [facility] [place] [address] Oncology Alyssa Joseph[address] [place] [address] 03/25/2022 Infusion Hematology and Oncology 03/31/2022 Office Visit Hematology and Alan Livingston M D [facility] HEMATOLOGY/[place] [address] Oncology Nilam So [facility] HEMATOLOGY/[place] [address] 04/15/2022 Office Visit Ángel Hill Oncology [facility] ONCOLOGY [place], [place] 0375 (Wo rk) 04/15/2022 Infusion Hematology and Oncology 04/15/2022 Office Visit Hematology and Jazzy Armendariz R D Oncology [facility] DRIVE HEMATOLOGY AND ONCOLOGY [place], [place] 0[address] (Wo rk) 09/05/2022 Scheduled View Only Obstetrics and NurseJulian II, analyst geochemical prospecting 09/05/2022 Office Visit Obstetrics and Shazia Whitley APRN Gynecology [facility] UROGYNECOLOGY [place], [place] 0[address] (Wo rk) documented as of [...] Time Received Time / Laterality Volume Narrative [facility] - 01/06/2022 8:39 PM EDT This exam is auto-finalizing. It's purpo se is for storage only. Ángel iFscher MD IMJazmin FILM LIBRARY ORDERABLES Performing Organization Address City/State/ZIP Code Phon e Number [place], [place] documented in this encounter Visit Diagnoses Not on filedocumented in this encounter Care Teams Accounting Administrator Relationship Specialty Start Date End Date Mook Coffey DO PCP - General Family Medicine 02/16/18 [address] [place] [phone] documented as of this encounter
--- OUTSIDE RECORDS SUMMARY | 2022-03-25 01:26 | XMS_ITS | Encounter Summary ---
:1950 Author Organization [facility] [place] [address] Care Team Providers Name Role Phone Mook Coffey DO Primary Care Provider Encounter Details Date Type Department Care Team Description 01/13/2022 External Results Medical Records Provider, Scanning [facility] [place] [address] Social History Tobacco Use Types Packs/Day [...] Description 03/25/2022 Office Visit Ángel Hill MD [facility] [place] [address] Oncology Alyssa Joseph[address] [place] [address] 03/25/2022 Infusion Hematology and Oncology 03/31/2022 Office Visit Hematology and Alan Livingston M D [facility] DR HEMATOLOGY/[place] [address] Oncology Nilam So APRN [facility] HEMATOLOGY/[place] [address] 04/15/2022 Office Visit Ángel Hill Oncology [facility] ONCOLOGY [place], [place] 0375 (Wo rk) 04/15/2022 Infusion Hematology and Oncology 04/15/2022 Office Visit Hematology and Jazzy Armendariz R D Oncology [facility] DRIVE HEMATOLOGY AND ONCOLOGY [place], [place] 0375 (Wo rk) 09/05/2022 Scheduled View Only Obstetrics and Nurse, Julian COLEMAN, wood lathe operator 09/05/2022 Office Visit Obstetrics and Shazia Whitley APRN Gynecology [facility] UROGYNECOLOGY [place], [place] 0375 (Wo rk) documented as of [...] on filedocumented in this encounter Care Teams Variety Lathe Operator Relationship Specialty Start Date End Date Mook Coffey DO PCP - General Family Medicine 02/16/[address] [place] [phone] documented as of this encounter
--- OUTSIDE RECORDS SUMMARY | 2022-03-25 01:26 | XMS_ITS | Encounter Summary ---
:1950 Author Organization [facility] [place] [address] Care Team Providers Name Role Phone Mook Coffey DO Primary Care Provider Encounter Details Date Type Department Care Team Description 11/25/2021 Office Visit Hematology/Oncology Nilam So, CLL ( chronic lymphocytic leukemia); at [facility] HAIRPIECE STYLIST Anemia, unspecified type [address] [place] [address] HEMATOLOGY/ONCOLOG [phone] Y DEPT. [place], [place] [address] Social History Tobacco Use Types [...] Fischer MD [facility] [place] [address] Oncology Alyssa Joseph APRN [address] [place] [address] [place] [address] 03/25/2022 Infusion Hematology and Oncology 03/31/2022 Office Visit Hematology and Alan Livingston M D [facility] DR HEMATOLOGY/[place] [address] Oncology Nilam So APRN [facility] HEMATOLOGY/[place] [address] 04/15/2022 Office Visit Hematology and Ángel Fischer Oncology [facility] ONCOLOGY [place], [place] 0375 (Wo rk) 04/15/2022 Infusion Hematology and Oncology 04/15/2022 Office Visit Hematology and Jazzy Armendariz R D Oncology [facility] HEMATOLOGY AND ONCOLOGY [place], [place] 0375 (Wo rk) 09/05/2022 Scheduled View Only Obstetrics and Nurse, Obgymichelle II, hatchery worker 09/05/2022 Office Visit Obstetrics and Shazia Whitley APRN Gynecology [facility] UROGYNECOLOGY [place], [place] 0375 (Wo rk) Scheduled Orders Name [...] of having achieved remission Anemia, unspecified type Colon cancer metastasized to liver Malignant neoplasm of colon, unspecified site documented in this encounter Care Teams Pest Control Worker Relationship Specialty Start Date End Date Mook Coffey DO PCP - General Family Medicine 02/16/18 [address] [place] [phone] documented as of this encounter
--- OUTSIDE RECORDS SUMMARY | 2022-03-25 01:26 | XMS_ITS | Encounter Summary ---
:1950 Author Organization [facility] [place] [address] Care Team Providers Name Role Phone Erlinda Mook Keron MEHTA Primary Care Provider Encounter Details Date Type Department Care Team Description 07/22/2021 Office Visit Hematology/Oncology Shayna Livingston MD [facility] DR HEMATOLOGY/[place] [address] CLL (chronic at [facility] Nilam So APRN [facility] DR HEMATOLOGY/[place] [address] lymphocytic leukemia) [address] [place] [phone] Social History Tobacco Use Types Packs/Day [...] in this encounter Progress Notes Nilam So, MEDICAL DATA ANALYST - 07/22/2021 11:30 AM EST Subjective Patient [...] Office Visit Hematology and Ángel Fischer MD [facility] [place] [address] Oncology Alyssa Joseph APRN [address] [place] [address] [place] [address] 03/25/2022 Infusion Hematology and Oncology 03/31/2022 Office Visit Hematology and Alan Livingston M D [facility] HEMATOLOGY/[place] [address] Oncology Nilam So APRN [facility] HEMATOLOGY/[place] [address] 04/15/2022 Office Visit Hematology and Ángel Fischer Oncology [facility] ONCOLOGY [place], [place] 0375 (Wo rk) 04/15/2022 Infusion Hematology and Oncology 04/15/2022 Office Visit Hematology and Jazzy Armendariz R D Oncology [facility] HEMATOLOGY AND ONCOLOGY [place], [place] 0375 (Wo rk) 09/05/2022 Scheduled View Only Obstetrics and Nurse, Julian COLEMAN, cloth edge singer 09/05/2022 Office Visit Obstetrics and Shazia Whitley APRN Gynecology [facility] UROGYNECOLOGY [place], [place] 0375 (Wo rk) documented as of this encounter Visit Diagnoses Diagnosis CLL (chronic lymphocytic leukemia) Chronic lymphoid leukemia, without menti on of having achieved remission Colon cancer metastasized to liver Malignant neoplasm of colon, unspecified site documented in this encounter Care Teams Sawyer Cork Slabs Relationship Specialty Start Date End Date Mook Coffey DO PCP - General Family Medicine 02/16/[address] [place] [phone] documented as of this encounter
--- OUTSIDE RECORDS SUMMARY | 2022-03-25 01:26 | XMS_ITS | Encounter Summary ---
:1950 Author Organization [facility] Address [facility] [place] [address] Care Team Providers Name Role Phone Mook Coffey DO Primary Care Provider Reason for Visit Reason Onset Date Comments Abnormal Lab 12/28/2020 WBC Encounter Details Date Type Department Care Team Description 12/28/2020 [facility] Rolando Isaac RN [address] [place] [address] Social History Tobacco Use Types [...] Burden RN - 12/28/2020 4:21 PM EDT [facility] Lab called to report WBC of 87.9 today. Pt has Dx CLL and seeing provider this Monday12/30/20. Providers made aware per protocol. documented in this encounter Plan of Treatment Upcoming Encounters Date Type Specialty Care Team Description 03/25/2022 Office Visit Hematology and Ángel Fischer MD [facility] [place] [address] Oncology Alyssa Joseph APRN [address] [place] [address] [place] [address] 03/25/2022 Infusion Hematology and Oncology 03/31/2022 Office Visit Hematology and Alan Livingston M D [facility] DR HEMATOLOGY/[place] [address] Oncology Nilam So MOP WORKER [facility] HEMATOLOGY/[place] [address] 04/15/2022 Office Visit Hematology and Ángel Fischer Oncology [facility] ONCOLOGY [place], [place] 0375 (Wo rk) 04/15/2022 Infusion Hematology and Oncology 04/15/2022 Office Visit Hematology and Jazzy Armendariz R D Oncology [facility] DRIVE HEMATOLOGY AND ONCOLOGY [place], [place] 0375 (Wo rk) 09/05/2022 Scheduled View Only Obstetrics and Nurse, Julian COLEMAN prosthetic technician 09/05/2022 Office Visit Obstetrics and Shazia Whitley APRN Gynecology [facility] UROGYNECOLOGY [place], [place] 0[address] (Wo rk) documented as of this encounter Visit Diagnoses Not on filedocumented in this encounter Care Teams Math Professor Relationship Specialty Start Date End Date Mook Coffey DO PCP - General Family Medicine 02/16/[address] [place] [phone] documented as of this encounter
--- OUTSIDE RECORDS SUMMARY | 2022-03-25 01:26 | XMS_ITS | Encounter Summary ---
:1950 Author Organization [facility] Address [facility] [address] [place] [address] Care Team Providers Name Role Phone Mook Coffey DO Primary Care Provider Encounter Details Date Type Department Care Team Description 07/01/2021 [facility] [address] [phone] Social History Tobacco Use [...] Fischer MD [facility] [place] [address] Oncology Alyssa Joseph[address] [place] [address] 03/25/2022 Infusion Hematology and Oncology 03/31/2022 Office Visit Hematology and Alan Livingston M D [facility] DR HEMATOLOGY/[place] [address] Oncology Nilam So EMPLOYEE DEVELOPMENT DIRECTOR [facility] HEMATOLOGY/[place] [address] 04/15/2022 Office Visit Hematology Ángel Kimbrough Oncology [facility] ONCOLOGY [place], [place] [address] (Wo rk) 04/15/2022 Infusion Hematology and Oncology 04/15/2022 Office Visit Hematology and Jazzy Armendariz R D Oncology [facility] DRIVE HEMATOLOGY AND ONCOLOGY [place], [place] 0375 (Wo rk) 09/05/2022 Scheduled View Only Obstetrics and Julian Enciso II clerk typist 09/05/2022 Office Visit Obstetrics and Shazia Whitley APRN Gynecology [facility] UROGYNECOLOGY [place], [place] 0375 (Wo rk) documented as of this encounter Visit Diagnoses Not on filedocumented in this encounter Care Teams Edger Machine Operator Relationship Specialty Start Date End Date Mook Coffey DO PCP - General Family Medicine 02/16/[address] [place] [phone] documented as of this encounter
--- OUTSIDE RECORDS SUMMARY | 2022-03-25 01:26 | XMS_ITS | Encounter Summary ---
:1950 Author Organization [place] [address] Care Team Providers Name Role Phone Erlinda Mook Keron MEHTA Primary Care Provider Encounter Details Date Type Department Care Team Description 06/18/2020 Office Visit Hematology/Oncology Shayna Livingston MD [facility] DR HEMATOLOGY/[place] [address] CLL (chronic at [facility] Yasmine Torres APRN [address] [place] [address] [place] [address] lymphocytic leukemia) [address] [place] [phone] Social History Tobacco Use Types Packs/Day [...] is a 70-year-old female who returns to [facility] in follow-up for her CLL. She has been followed for 10 years without any treatment. Since last seen she has been well. No recent infections. No fevers chills sweats or weight loss. [employer]. 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 Review of Systems Constitutional: Negative. HENT: Negative. [...] MD [facility] [place] [address] Oncology Alyssa Joseph, [address] [address] 03/25/2022 Infusion Hematology and Oncology 03/31/2022 Office Visit Hematology and Alan Livingston M D [facility] HEMATOLOGY/[place] [address] Oncology Nilam So, RN CARDIAC [facility] HEMATOLOGY/[place] [address] 04/15/2022 Office Visit Hematology and Ángel Fischer Oncology [facility] ONCOLOGY [place], [place] 0375 (Wo rk) 04/15/2022 Infusion Hematology and Oncology 04/15/2022 Office Visit Hematology and Jazzy Armendariz R D Oncology [facility] CESAR HEMATOLOGY AND ONCOLOGY [place], [place] 0375 (Wo rk) 09/05/2022 Scheduled View Only Obstetrics and NurseJulian II, rn new grad 09/05/2022 Office Visit Obstetrics and Shazia Whitley APRN Gynecology [facility] UROGYNECOLOGY [place], [place] [address] (Wo rk) documented as of this encounter Visit Diagnoses Diagnosis CLL (chronic lymphocytic leukemia) Chronic lymphoid leukemia, without menti on of having achieved remission Colon cancer metastasized to liver Malignant neoplasm of colon, unspecified site documented in this encounter Care Teams Platform Builder Relationship Specialty Start Date End Date Mook Coffey DO PCP - General Family Medicine 02/16/[address] [place] [phone] documented as of this encounter
--- OUTSIDE RECORDS SUMMARY | 2022-03-25 01:26 | XMS_ITS | Encounter Summary ---
:1950 Author Organization [facility] [place] [address] Care Team Providers Name Role Phone Mook Coffey DO Primary Care Provider Reason for Visit Reason Comments Pessary Check Encounter Details Date Type Department Care Team Description 09/07/2021 Office Visit Obstetrics and Nakul Prater, Pessalyson maintenance Gynecology at [facility] [address] [place] [address] [place] [address] [phone] (Wo rk) Social History Tobacco Use Types [...] 10-15 minutes prior to pessary removal. A college athletic director is present for the examination (Kate Ghosh). [...] Ángel Fischer MD [facility] [place] [address] Oncology Alyssa Joseph[address] [place] [address] 03/25/2022 Infusion Hematology and Oncology 03/31/2022 Office Visit Hematology and Alan Livingston M D [facility] HEMATOLOGY/[place] [address] Oncology Nilam So [facility] HEMATOLOGY/[place] [address] 04/15/2022 Office Visit Hematology and Ángel Fischer, Oncology MD [facility] DR ONCOLOGY [place], [place] 0375 (Wo rk) 04/15/2022 Infusion Hematology and Oncology 04/15/2022 Office Visit Hematology and Jazzy Armendariz R D [facility] CESAR HEMATOLOGY AND ONCOLOGY [place], [place] 0375 (Wo rk) 09/05/2022 Scheduled View Only Obstetrics and NurseJulian II measurement specialist 09/05/2022 Office Visit Obstetrics and Shazia Whitley TODDLER LEAD TEACHER Gynecology [facility] UROGYNECOLOGY [place], [place] [address] (Wo rk) documented as of this encounter Visit Diagnoses Diagnosis Pessary maintenance Fitting and adjustment of other device Colon cancer metastasized to liver Malignant neoplasm of colon, unspecified site documented in this encounter Care Teams Saw Feeder Relationship Specialty Start Date End Date Mook Coffey DO PCP - General Family Medicine 02/16/[address] [place] [phone] documented as of this encounter
--- OUTSIDE RECORDS SUMMARY | 2022-03-25 01:26 | XMS_ITS | Encounter Summary ---
:1950 Author Organization [facility] Address [address] [place] [address] Care Team Providers Name Role Phone Mook Coffey DO Primary Care Provider Encounter Details Date Type Department Care Team Description 01/14/2020 Office Visit Dermatology at [facility], History of SCC (squamous cell carcinoma) of skin; Radha ALEGRIA [place] (actinic keratosis); [address] [facility] [facility] [address] [facility] [address] [facility] [address] [facility] [address] Seborrheic keratosis Jori B DERMATOLOGY [place], [place] [phone] Social History Tobacco Use Types Packs/Day Years [...] lip February 2013 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 [address] Oncology Nilam So [facility] HEMATOLOGY/[place] [address] 04/15/2022 Office Visit Hematology Ángel Kimbrough Oncology [facility] ONCOLOGY [place], [place] 0375 (Wo rk) 04/15/2022 Infusion Hematology and Oncology 04/15/2022 Office Visit Hematology and Jazzy Armendariz R D Oncology [facility] CESAR HEMATOLOGY AND ONCOLOGY [place], [place] 0375 (Wo rk) 09/05/2022 Scheduled View Only Obstetrics and Nurse, Julian COLEMAN, alcoholism worker 09/05/2022 Office Visit Obstetrics and Shazia Whitley APRN Gynecology [facility] UROGYNECOLOGY [place], [place] 0375 (Wo rk) documented as of this encounter Visit Diagnoses Diagnosis History of SCC (squamous cell carcinoma) of skin Personal history of other malignant neop lasm of skin [place] (actinic keratosis) Actinic keratosis Seborrheic keratosis Other seborrheic keratosis Colon cancer metastasized to liver Malignant neoplasm of colon, unspecified site documented in this encounter Care Teams Personnel Specialist Relationship Specialty Start Date End Date Mook Coffey DO PCP - General Family Medicine 02/16/[address] [place] [phone] documented as of this encounter
--- OUTSIDE RECORDS SUMMARY | 2022-03-25 01:26 | XMS_ITS | Encounter Summary ---
:1950 Author Organization [facility] [place] [address] Care Team Providers Name Role Phone Mook Coffey DO Primary Care Provider Reason for Visit Reason Comments Liu Check Encounter Details Date Type Department Care Team Description 07/01/2019 Office Visit Obstetrics and Chika Crandall Pessary ma intenance Gynecology at [facility] DIRECTOR OF ROOMS Formerly [facility] [place] [address] [place] [address] [phone] (Wo rk) Social History Tobacco Use Types [...] Fischer MD [facility] [place] [address] Oncology Alyssa Joseph APRN [address] [place] [address] [place] [address] 03/25/2022 Infusion Hematology and Oncology 03/31/2022 Office Visit Hematology and Alan Livingston M D [facility] HEMATOLOGY/[place] [address] Oncology Nilam So, [facility] HEMATOLOGY/[place] [address] 04/15/2022 Office Visit Hematology and Ángel Fischer Oncology [facility] ONCOLOGY [place], [place] 0375 (Wo rk) 04/15/2022 Infusion Hematology and Oncology 04/15/2022 Office Visit Hematology and Jazzy Armendariz R D Oncology [facility] CESAR HEMATOLOGY AND ONCOLOGY [place], [place] 0375 (Wo rk) 09/05/2022 Scheduled View Only Obstetrics and NurseJulian II business developer 09/05/2022 Office Visit Obstetrics and Shazia Whitley APRN Gynecology [facility] UROGYNECOLOGY [place], [place] [address] (Wo rk) documented as of this encounter Visit Diagnoses Diagnosis Pessary maintenance Fitting and adjustment of other device Colon cancer metastasized to liver Malignant neoplasm of colon, unspecified site documented in this encounter Care Teams Blister Packaging Machine Operator Relationship Specialty Start Date End Date Mook Coffey DO PCP - General Family Medicine 02/16/[address] [place] [phone] documented as of this encounter
--- OUTSIDE RECORDS SUMMARY | 2022-03-25 01:26 | XMS_ITS | Encounter Summary ---
:1950 Author Organization [facility] [place] [address] Care Team Providers Name Role Phone Mook Coffey DO Primary Care Provider Encounter Details Date Type Department Care Team Description 06/13/2019 Office Visit Hematology/Oncology Shayna Livingston MD [facility] HEMATOLOGY/[place] [address] CLL (chronic at [facility], Alyssa Sparks APRN [address] [place] [address] [place] [address] lymphocytic leukemia) [address] [place] [phone] Social History Tobacco Use Types Packs/Day [...] is a 69-year-old female who returns to [facility] in follow-up for her CLL. She [...] Ángel Fischer MD [facility] [place] [address] Oncology Alyssa Joseph[address] [place] [address] 03/25/2022 Infusion Hematology and Oncology 03/31/2022 Office Visit Hematology and Alan Livingston M D [facility] HEMATOLOGY/[place] [address] Oncology Nilam So [facility] HEMATOLOGY/[place] [address] 04/15/2022 Office Visit Hematology Ángel Kimbrough Oncology MD [facility] DR [place], [place] [address] (Wo rk) 04/15/2022 Infusion Hematology and Oncology 04/15/2022 Office Visit Hematology and Jazzy Armendariz R D Oncology [facility] DRIVE HEMATOLOGY AND ONCOLOGY [place], [place] 0375 (Wo rk) 09/05/2022 Scheduled View Only Obstetrics and Julian Enciso II home care liaison 09/05/2022 Office Visit Obstetrics and Shazia Whitley APRN Gynecology [facility] UROGYNECOLOGY [place], [place] 0375 (Wo rk) documented as of this encounter Visit Diagnoses Diagnosis CLL (chronic lymphocytic leukemia) Chronic lymphoid leukemia, without menti on of having achieved remission Colon cancer metastasized to liver Malignant neoplasm of colon, unspecified site documented in this encounter Care Teams Internship Coordinator Relationship Specialty Start Date End Date Mook Coffey DO PCP - General Family Medicine 02/16/[address] [place] [phone] documented as of this encounter
--- OUTSIDE RECORDS SUMMARY | 2022-03-25 01:26 | XMS_ITS | Encounter Summary ---
:1950 Author Organization [facility] [place] [address] Care Team Providers Name Role Phone Mook Coffey DO Primary Care Provider Reason for Visit Reason Comments Liu Check Encounter Details Date Type Department Care Team Description 11/04/2019 Office Visit Obstetrics and Chika Crandall Pessary ma intenance Gynecology at [facility] CARD SCRAPER [facility] [place] [address] [place] [address] [phone] (Wo rk) Social History Tobacco Use Types [...] in this encounter Progress Notes Chika Crandall, CARD SCRAPER - 11/04/2019 3:30 PM EDT Patient Active [...] Fischer MD [facility] [place] [address] Oncology Alyssa Joseph APRN [address] [place] [address] [place] [address] 03/25/2022 Infusion Hematology and Oncology 03/31/2022 Office Visit Hematology and Alan Livingston M D [facility] HEMATOLOGY/[place] [address] Oncology Nilam So CARD SCRAPER [facility] HEMATOLOGY/[place] [address] 04/15/2022 Office Visit Hematology and Ángel Fischer Oncology [facility] ONCOLOGY [place], [place] 0375 (Wo rk) 04/15/2022 Infusion Hematology and Oncology 04/15/2022 Office Visit Hematology and Jazzy Armendariz R D Oncology [facility] CESAR HEMATOLOGY AND ONCOLOGY [place], [place] [address] (Wo rk) 09/05/2022 Scheduled View Only Obstetrics and Nurse, Julian COLEMAN medication manager 09/05/2022 Office Visit Obstetrics and Shazia Whitley APRN Gynecology [facility] UROGYNECOLOGY [place], [place] [address] (Wo rk) documented as of this encounter Visit Diagnoses Diagnosis Pessary maintenance Fitting and adjustment of other device Colon cancer metastasized to liver Malignant neoplasm of colon, unspecified site documented in this encounter Care Teams Admin Dir Relationship Specialty Start Date End Date Mook Coffey DO PCP - General Family Medicine 02/16/[address] [place] [phone] documented as of this encounter
--- OUTSIDE RECORDS SUMMARY | 2022-03-25 01:26 | XMS_ITS | Encounter Summary ---
:1950 Author Organization [facility] [place] [address] Care Team Providers Name Role Phone Mook Coffey DO Primary Care Provider Reason for Referral Consultation (Routine) - Authorized Specialty Diagnoses / Procedures Referred By Contact Refer red To Contact Diagnoses Malignant neoplasm of ascending colon Ángel Fischer MD Kelley, Matthew P, MD [address] [place] [address] [place] [address] Referral ID Status Reason Start Date Expiration Visits Visits Date Requested Authorized [id number] Authorized Consult, 01/27/2022 07/26/2022 1 1 Test & Treat Consultation (Routine) - Closed Specialty Diagnoses / Procedures Referred By Contact Refer red To Contact Hematology and Oncology Diagnoses Malignant neoplasm of ascending colon Ángel Fischer Stj Hem Onc Offi delma ALEGRIA [address] [place] [phone] [place] [address] Referral ID Status Reason Start Date Expiration Date Visits V isits Requested Authorized [id number] Closed Consult, 01/27/2022 01/27/2023 1 1 Test & Treat Reason for Visit Reason Comments Establish Care Consultation (Routine) - Closed Specialty Diagnoses / Procedures Referred By Contact Refer red To Contact Hematology and Diagnoses Malignant neoplasm of colon, unspecified part of colon Blayne Shrestha, [facility] Hem Onc 3k Oncology [facility] [address] [place] [phone] Referral ID Status Reason Start Date Expiration Date Visits V isits Requested Authorized [id number] Closed Consult, 01/05/2022 01/05/2023 1 1 Test & Treat Encounter Details Date Type Department Care Team Description 01/27/2022 Office Visit Hematology and Ángel Fischer, Maligna nt neoplasm of ascending colon; Oncology at [facility] Chronic fatigue; [facility] Ot er iron deficiency anemia Drive [address] [place], [place] ONCOLOGY [address] [place] [address] [phone] Social History Tobacco Use Types Packs/Day Years [...] medical/surgical history. B. Colonoscopy 12/20/21 - Path ([facility] review) - Colon, right, lesion, ?? biopsy: [...] right visual abnormalities Soc Hx:, lives in [place], [place] Tob - Never Etoh - Rare [...] the absence of cold, laryngeal dysesthesia, fatigue, angina/MO, hypersensitivity reactions and others. ??He was given [...] placement and plan to see her in [facility] after that is done. documented in this encounter Plan of Treatment Upcoming Encounters Date Type Specialty Care Team Description 03/25/2022 Office Visit Hematology and Ángel Fischer MD [facility] [place] [address] Oncology Alyssa Joseph[address] [place] [address] 03/25/2022 Infusion Hematology and Oncology 03/31/2022 Office Visit Hematology and Alan Livingston M D [facility] DR HEMATOLOGY/ONCOL[place] [address] Oncology Nilam So [facility] HEMATOLOGY/ONCOLOGY [place] [address] 04/15/2022 Office Visit Hematology and Ángel Fischer Oncology [facility] ONCOLOGY [place], [place] [address] (Wo rk) 04/15/2022 Infusion Hematology and Oncology 04/15/2022 Office Visit Hematology and Jazzy Armendariz R D Oncology [facility] CESAR HEMATOLOGY AND ONCOLOGY [place], [place] 0375 (Wo rk) 09/05/2022 Scheduled View Only Obstetrics and Nurse, Julian COLEMAN RNcrime scene investigator 09/05/2022 Office Visit Obstetrics and Shazia Whitley APRN Gynecology [facility] UROGYNECOLOGY [place], [place] [address] (Wo rk) Scheduled Orders Name [...] 39 30 - 400 MADIHA BOBO ng/mL [facility] Comment: Pediatric reference ranges not [...] Organization Address City/State/[place] [address] (ABNORMAL) Iron and TIBC (01/27/2022 12:16 PM EDT) athologist [facility] Iron 39 30 - 150 [facility] BOBO mcg/dL [facility] TIBC 361 250 - 450 [facility] mcg/dL [facility] Iron Saturation 11 (L) 20 - 50 % [facility] Specimen Anatomical Collection Method Collection Time Receive d Time (Source) Location / / Volume Laterality Blood 01/27/2022 12:16 01/27/2022 PM EDT 12:23 PM EDT Resulting Agency Comment Spec In Lab Ángel Fischer MD CHEMISTRY ORDERABLES Performing Organization Address City/State/ZIP Code Phon e Number [address] TSH (01/27/2022 12:16 PM EDT) athologist Signature TSH 2.48 0.27 - 4.20 MADIHA BOBO mcIU/mL [facility] Comment: Reference Interval (mcIU/mL): Females: ??First Trimester: 0.23-3.88 ??Second Trimester: 0.22-3.90 ??Third Trimester: 0.44-4.66 Specimen Anatomical Collection Method Collection Time Receive d Time (Source) Location / / Volume Laterality Blood 01/27/2022 12:16 01/27/2022 PM EDT 12:23 PM EDT Resulting Agency Comment Spec In Lab Ángel Fischer MD CHEMISTRY ORDERABLES Performing Organization Address City/State/[place] [address] DPYD PCR (01/27/2022 12:16 PM EDT) Component Value Ref Test Analysis Performed At [facility] Range Method Time Signature DPYD PCR INDICATION FOR STUDY: DPYD Genotyping [facility] RESULTS: Normal metabolizer, *1/*1 genotype [facility] INTERPRETATION: ??Normal gen otype, with normal [...] probes for each varian t: DPYD*2A ??(c.1905+1G>A, [id number]), DPYD*13 (c.1679T>G , [id number]), and DP YD c.2846A>T ([id number]). All variant positions are provided on the [...] Clin Pharmacol Ther. 2018 Jun;103(2):21 0-216. PMID: [id number] 3. Mars Sparks, Walt Roberts, Yogesh Rapp, et al. Fluorouracil Ther apy and DPYD Genotype. In: Medical Genetics Summaries [Internet]. B vicente MONTES): [employer] Inf oreast [facility] (); 2011? 2015Mar 24. PMID: [id number] Specimen Anatomical Collection Method Collection Time Receive d Time (Source) Location / / Volume Laterality Blood 01/27/2022 12:16 01/27/2022 1:17 PM EDT PM EDT Resulting Agency Comment Spec In Lab Ángel Fischer MD CHEMISTRY ORDERABLES Performing Organization Address City/[facility]/ZIP Code Phon e Number [place] [phone] HOSP[address] LAB[address]ORY [address] CEA (01/27/2022 12:16 PM EDT) P athologist Signature CEA 422.0 ng/mL [facility] Comment: Reference range: ??(20-69 [...] Organization Address City/State/[place] [address] Comprehensive metabolic panel (non-fasting) (01/27/2022 12:16 PM EDT) P athologist Signature Glucose Lvl 135 65 - 199 [facility] mg/dL [facility] Comment: Diabetes: >=200 mg/dL plus symp toms BUN 15 8 - 18 mg/dL [facility] Creatinine 0.77 0.70 - 1.20 mg/dL [facility] Sodium 142 135 - 145 mmol/L [facility] Potassium 4.1 3.5 - 5.0 mmol/L [facility] Comment: Please note: ??Patients with WBC >100,00 0 may have falsely elevated Potassium levels. ??For accurate Potassium quantif ication in these patients send serum separator tube (gold top) for subsequent determinations. ??Contact the Clinical Chemistry Laboratory if there are any qu estions. Chloride 105 98 - 107 mmol/L [facility] CO2 28 22 - 31 mmol/L [facility] Anion Gap 9 5 - 15 mmol/L [facility] Calcium 9.4 8.5 - 10.5 mg/dL [facility] Total Protein 6.7 6.1 - 8.0 g/dL [facility] Albumin 4.5 3.2 - 5.2 g/dL [facility] AST 22 0 - 30 unit/L [facility] ALT 12 0 - 30 unit/L [facility] Alk Phos 65 35 - 105 unit/L [facility] Total Bilirubin 0.3 0.2 - 1.3 mg/dL [facility] Estimated GFR 82 >=60 mL/min/1.73 m?? [facility] Comment: This patient's estimated [...] Organization Address City/State/[place] [address] documented in this encounter Visit Diagnoses Diagnosis Malignant neoplasm of ascending colon Chronic fatigue Other malaise and fatigue Other iron deficiency anemia Colon cancer metastasized to liver Malignant neoplasm of colon, unspecified site documented in this encounter Care Teams Precision Thread Grinder Operator Relationship Specialty Start Date End Date Mook Coffey DO PCP - General Family Medicine 02/16/[address] [place] [phone] documented as of this encounter
--- OUTSIDE RECORDS SUMMARY | 2022-03-25 01:26 | XMS_ITS | Encounter Summary ---
:1950 Author Organization [facility] [place] [address] Care Team Providers Name Role Phone Mook Coffey DO Primary Care Provider Encounter Details Date Type Department Care Team Description 01/06/2022 Orders Only Hematology and Oncology at [facility] Ángel reese MD [facility] D [facility] [place] [address] [place] [address] [phone] (Wo rk) Social History Tobacco Use Types [...] Description 03/25/2022 Office Visit Ángel Hill MD [facility] [place] [address] Oncology Alyssa Joseph[address] [address] 03/25/2022 Infusion Hematology and Oncology 03/31/2022 Office Visit Hematology and Alan Livingston M D [facility] HEMATOLOGY/[place] [address] Oncology Nilam So [facility] HEMATOLOGY/[place] [address] 04/15/2022 Office Visit Ángel Hill Oncology [facility] ONCOLOGY [place] [address] (Wo rk) 04/15/2022 Infusion Hematology and Oncology 04/15/2022 Office Visit Hematology and Jazzy Armendariz R D Oncology [facility] DRIVE HEMATOLOGY AND ONCOLOGY [place] [address] (Wo rk) 09/05/2022 Scheduled View Only Obstetrics and Julian Enciso II, executive sales manager 09/05/2022 Office Visit Obstetrics and Shazia Whitley APRN Gynecology [facility] UROGYNECOLOGY [place] [address] (Wo rk) documented as of this encounter Visit Diagnoses Not on filedocumented in this encounter Care Teams Camp Guard Relationship Specialty Start Date End Date Mook Coffey DO PCP - General Family Medicine 02/16/[address] [place] [phone] documented as of this encounter
--- OUTSIDE RECORDS SUMMARY | 2022-03-25 01:26 | XMS_ITS | Encounter Summary ---
:1950 Author Organization [facility] [address] Care Team Providers Name Role Phone Mook Coffey DO Primary Care Provider Reason for Referral Consultation (Routine) - Closed Specialty Diagnoses / Procedures Referred By Contact Refer red To Contact Hematology and Diagnoses Malignant neoplasm of colon, unspecified part of colon Blayne Shrestha, [facility] Hem Onc 3k Oncology [address] [place] [phone] Referral ID Status Reason Start Date Expiration Date Visits V isits Requested Authorized [id number] Closed Consult, 01/05/2022 01/05/2023 1 1 Test & Treat Encounter Details Date Type Department Care Team Description 01/05/2022 Transcribe Orders eDH Incoming Blayne Shrestha nt neoplasm Referrals MD Sarah of colon, [address] [place] [facility] [place] [address] Social History Tobacco Use Types [...] Fischer MD [facility] [address] Oncology Alyssa Joseph APRN [address] [place] [address] [place] [address] 03/25/2022 Infusion Hematology and Oncology 03/31/2022 Office Visit Hematology and Alan Livingston M D [facility] HEMATOLOGY/[place] [address] Oncology Nilam So [facility] HEMATOLOGY/[place] [address] 04/15/2022 Office Visit Hematology and Ángel Fischer Oncology [facility] ONCOLOGY [place], [place] 0375 (Wo rk) 04/15/2022 Infusion Hematology and Oncology 04/15/2022 Office Visit Hematology and Jazzy Armendariz R D Oncology [facility] CESAR HEMATOLOGY AND ONCOLOGY [place], [place] 0375 (Wo rk) 09/05/2022 Scheduled View Only Obstetrics and NurseJulian II, sod stripper 09/05/2022 Office Visit Obstetrics and Shazia Whitley [facility] Gynecology [facility] UROGYNECOLOGY [place], [place] 0375 (Wo rk) Scheduled Referrals Name Type Priority Associated Diagnoses Order S chedule Referral to Outpatient Referral Routine Malignant neoplasm Or dered: Hematology and of colon, 01/05/2022 Oncology unspecified part of colon documented as of this encounter Visit Diagnoses Diagnosis Malignant neoplasm of colon, unspecified part of colon Colon cancer metastasized to liver Malignant neoplasm of colon, unspecified site documented in this encounter Care Teams Back End Web Developer Relationship Specialty Start Date End Date Mook Coffey DO PCP - General Family Medicine 02/16/[address] [place] [phone] documented as of this encounter
--- OUTSIDE RECORDS SUMMARY | 2022-03-25 01:26 | XMS_ITS | Encounter Summary ---
:1950 Author Organization [facility] [place] [address] Care Team Providers Name Role Phone Mook Coffey DO Primary Care Provider Reason for Visit Reason Comments Liu Check Encounter Details Date Type Department Care Team Description 03/02/2020 Office Visit Obstetrics and Chika Crandall Pessary ma intenance Gynecology at [facility] METAL RECLAMATION KETTLE TENDER [facility] [place] [address] [place] [address] [phone] (Wo rk) Social History Tobacco Use Types [...] Office Visit Hematology and Ángel Fischer MD [facility] [place] [address] Oncology Alyssa Joseph APRN [address] [place] [address] 03/25/2022 Infusion Hematology and Oncology 03/31/2022 Office Visit Hematology and Alan Livingston M D [facility] HEMATOLOGY/[place] [address] Oncology Nilam So, [facility] HEMATOLOGY/[place] [address] 04/15/2022 Office Visit Hematology and Ángel Fischer, Oncology [facility] DR ONCOLOGY [place], [place] 0375 (Wo rk) 04/15/2022 Infusion Hematology and Oncology 04/15/2022 Office Visit Hematology and Jazzy Armendariz R D Oncology [facility] CESAR HEMATOLOGY AND ONCOLOGY [place], [place] 0375 (Wo rk) 09/05/2022 Scheduled View Only Obstetrics and NurseJulian II, RN Gynecology 09/05/2022 Office Visit Obstetrics and Shazia Whitley [facility] Gynecology [facility] UROGYNECOLOGY [place], [place] 0375 (Wo rk) documented as of this encounter Visit Diagnoses Diagnosis Pessary maintenance Fitting and adjustment of other device Colon cancer metastasized to liver Malignant neoplasm of colon, unspecified site documented in this encounter Care Teams Manager Quality Relationship Specialty Start Date End Date Mook Coffey DO PCP - General Family Medicine 02/16/[address] [place] [phone] documented as of this encounter
--- OUTSIDE RECORDS SUMMARY | 2022-03-25 01:26 | XMS_ITS | Encounter Summary ---
:1950 Author Organization [facility] Address [facility] [place] [address] Care Team Providers Name Role Phone Mook Coffey DO Primary Care Provider Reason for Visit Reason Onset Date Comments Labs Only 05/27/2021 Encounter Details Date Type Department Care Team Description 05/27/2021 Telephone Hematology/Oncology at Maddie Arteaga RN Labs Only [address] [phone] Social History Tobacco Use [...] Office Visit Hematology and Ángel Fischer MD [facility] [place] [address] Oncology Alyssa Joseph, [address] [place] [address] 03/25/2022 Infusion Hematology and Oncology 03/31/2022 Office Visit Hematology and Alan Livingston M D [facility] DR HEMATOLOGY/[place] [address] Oncology Nilam So [facility] HEMATOLOGY/[place] [address] 04/15/2022 Office Visit Hematology and Ángel Fischer, Oncology [facility] ONCOLOGY [place], [place] 0375 (Wo rk) 04/15/2022 Infusion Hematology and Oncology 04/15/2022 Office Visit Hematology and Jazzy Armendariz R D Oncology [facility] DRIVE HEMATOLOGY AND ONCOLOGY [place], [place] 0375 (Wo rk) 09/05/2022 Scheduled View Only Obstetrics and Nurse, Julian COLEMAN, manager mutual fund 09/05/2022 Office Visit Obstetrics and Shazia Whitley [facility] Gynecology [facility] UROGYNECOLOGY [place], [place] 0[address] (Wo rk) documented as of this encounter Procedures Procedure Name Priority Date/Time Associated Comments Diagnosis DIAGNOSTIC RADIOLOGY 02/10/2022 12:00 AM Results for this SCAN EDT procedure are i n the results section. CBC (WITH DIFF) Routine 05/27/2021 Results for this procedure are i n the results section. documented in this encounter Results SCAN DOC: DIAGNOSTIC RADIOLOGY (02/10/2022 12:00 AM EDT) Narrative 02/10/2022 12:00 AM EDT This result has an attachment that is no t available. Ordered by an unspecified provider. Scanning Provider MEDIA MGR SCAN EXT ORDR/RSLT CBC (with Diff) (05/27/2021) P athologist Signature WBC 117.4 Hemoglobin 13.9 Hematocrit 47.4 Platelets 167 Neutr Abs (ANC) 4.69 Creatinine 1 Specimen (Source) Anatomical Location Collection Method / Collectio n Time Received Time / Laterality Volume Blood 05/27/2021 Historical Provider HEMATOLOGY ORDERABLES documented in this encounter Visit Diagnoses Not on filedocumented in this encounter Care Teams Certified Coding Specialist Relationship Specialty Start Date End Date Mook Coffey DO PCP - General Family Medicine 02/16/18 [address] [place] [phone] documented as of this encounter
--- OUTSIDE RECORDS SUMMARY | 2022-03-25 01:26 | XMS_ITS | Encounter Summary ---
:1950 Author Organization [facility] [place] [address] Care Team Providers Name Role Phone Mook Coffey DO Primary Care Provider Encounter Details Date Type Department Care Team Description 01/13/2022 Hospital Encounter Laboratory [facility] [place] [address] Social History Tobacco Use Types Packs/Day [...] Refills Start Date End Date acetaminophen (TYLENOL) Take 650 mg by 0 [...] MD [facility] [place] [address] Oncology Alyssa Joseph [address] [place] [address] 03/25/2022 Infusion Hematology and Oncology 03/31/2022 Office Visit Hematology and Alan Livingston M D [facility] HEMATOLOGY/[place] [address] Oncology Nilam So [facility] HEMATOLOGY/[place] [address] 04/15/2022 Office Visit Hematology Ángel Kimbrough Oncology [facility] ONCOLOGY [place], [place] 0375 (Wo rk) 04/15/2022 Infusion Hematology and Oncology 04/15/2022 Office Visit Hematology and Jazzy Armendariz R D Oncology [facility] CESAR HEMATOLOGY AND ONCOLOGY [place], [place] 0375 (Wo rk) 09/05/2022 Scheduled View Only Obstetrics and Nurse, Julian COLEMAN, nurses aide 09/05/2022 Office Visit Obstetrics and Shazia Whitley APRN Gynecology [facility] UROGYNECOLOGY [place], [place] 0[address] (Wo rk) documented as of this encounter Procedures Procedure Name Priority Date/Time Associated Diagnosis Comme nts SURGICAL PATHOLOGY Routine 01/13/2022 10:30 AM Re sults for this REPORT EDT procedure are i n the results section. documented in this encounter Results Surgical Pathology Report (01/13/2022 10:30 AM EDT) Component Value Ref Test Analysis Performed At [facility] gist Range Method Time Signature Surgical [id number] ? [facility] [place] Report The signing pathologist has (i) examined the relevant preparation(s) for the [facility] specimen(s) and (ii) rendered or confirmed the diagnosis(es) . HOSPITAL LABORATORY . ?Surgic al Pathology DIAGNOSIS CONSULTATION CASE Outside slide(s) labeled [id number], collection date 2. Colon, right, lesion, ?? 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 Although the findings could well represe nt the mucosal component of an invasive carcinoma, the sample is too superficial to establish that submucosa l invasion is present. Electronically signed by: ?Jaki Nicole MD Verified: ??01/13/2022 18:16 ??Pathologist Performed at: ??-[facility] [place], [place], [place] SPECIMEN(S) SUBMITTED CONSULTATION CASE A - 2 slide(s) labeled [id number], collection date 12/20/2021. [id number] Report to: [facility] Surgical Pathology Department [facility], [facility], 2nd Floor [address] [place], [place] ??[address] CLINICAL INFORMATION Right colon lesion SPECIMEN PROCESSING [...] Organization Address City/State/ZIP Code Phon e Number [place] [phone] HOSPITAL LABORATORY [address] documented in this encounter Visit Diagnoses Not on filedocumented in this encounter Care Teams Health Information Systems Technician Relationship Specialty Start Date End Date Mook Coffey DO PCP - General Family Medicine 02/16/[address] [place] [phone] documented as of this encounter
--- OUTSIDE RECORDS SUMMARY | 2022-03-25 01:26 | XMS_ITS | Encounter Summary ---
:1950 Author Organization [facility] Address [facility] [place] [address] Care Team Providers Name Role Phone Mook Coffey DO Primary Care Provider Reason for Visit Reason Onset Date Comments Abnormal Labs 12/16/2019 critical WBC Encounter Details Date Type Department Care Team Description 12/16/2019 Telephone Hematology Oncology at Hollie Silvestre, Abnormal Labs (critical [facility] RN WBC) [address] [place] [address] Social History Tobacco Use Types [...] - 12/16/2019 1:28 PM EDT Molly for [facility] lab called with critical WBC on Carol of 116.5. This is up from 90.9 on 06/10/19. She is due to see Nilam So APRN on 12/18/19, I will notify her with this note. documented in this encounter Plan of Treatment Upcoming Encounters Date Type Specialty Care Team Description 03/25/2022 Office Visit Hematology and Ángel Fischer MD [facility] [place] [address] Oncology Alyssa Joseph APRN [address] [place] [address] [place] [address] 03/25/2022 Infusion Hematology and Oncology 03/31/2022 Office Visit Hematology and Alan Livingston M D [facility] HEMATOLOGY/[place] [address] Oncology Nilam So APRN [facility] HEMATOLOGY/[place] [address] 04/15/2022 Office Visit Hematology and Ángel Fischer Oncology [facility] ONCOLOGY [place], [place] [address] (Wo rk) 04/15/2022 Infusion Hematology and Oncology 04/15/2022 Office Visit Hematology and Jazzy Armendariz R D Oncology [facility] CESAR HEMATOLOGY AND ONCOLOGY [place], [place] [address] (Wo rk) 09/05/2022 Scheduled View Only Obstetrics and NurseJulian II licensing officer 09/05/2022 Office Visit Obstetrics and Shazia Whitley APRN Gynecology [facility] UROGYNECOLOGY [place], [place] [address] (Wo rk) documented as of this encounter Visit Diagnoses Not on filedocumented in this encounter Care Teams Ecology Professor Relationship Specialty Start Date End Date Mook Coffey DO PCP - General Family Medicine 02/16/[address] [place] [phone] documented as of this encounter
--- OUTSIDE RECORDS SUMMARY | 2022-03-25 01:26 | XMS_ITS | Encounter Summary ---
:1950 Author Organization [facility] Address [address] [facility] [address] Care Team Providers Name Role Phone Mook Coffey DO Primary Care Provider Encounter Details Date Type Department Care Team Description 07/09/2021 Orders Only Hematology/Oncology at Alan Livingston MD CLL (chronic [facility] lymphocytic leukemia) [address] [place], [place] HEMATOLOGY/ONCOLOG [address] Y DEPT. [phone] [place], [place] [address] Social History Tobacco Use Types [...] Hill MD [facility] [address] Oncology Alyssa Joseph[address] [place] [address] 03/25/2022 Infusion Hematology and Oncology 03/31/2022 Office Visit Hematology and Alan Livingston M D [facility] HEMATOLOGY/[place] [address] Oncology Nilam So CHEST PAIN COORDINATOR [facility] HEMATOLOGY/[place] [address] 04/15/2022 Office Visit Hematology Ángel Kimbrough Oncology [facility] ONCOLOGY [place], [place] 0[address] (Wo rk) 04/15/2022 Infusion Hematology and Oncology 04/15/2022 Office Visit Hematology and Jazzy Armendariz R D Oncology [facility] DR[address] HEMATOLOGY AND ONCOLOGY [place], [place] 0[address] (Wo rk) 09/05/2022 Scheduled View Only Obstetrics and Nurse, Julian COLEMAN, surface room shop optician 09/05/2022 Office Visit Obstetrics and Shazia Whitley APRN Gynecology [facility] UROGYNECOLOGY [place], [place] [address] (Wo rk) Scheduled Orders Name [...] site documented in this encounter Care Teams Membership Correspondent Relationship Specialty Start Date End Date Mook Coffey DO PCP - General Family Medicine 02/16/[address] [place] [phone] documented as of this encounter
--- OUTSIDE RECORDS SUMMARY | 2022-03-25 01:26 | XMS_ITS | Encounter Summary ---
:1950 Author Organization [facility] [place] [address] Care Team Providers Name Role Phone Mook Coffey DO Primary Care Provider Reason for Visit Reason Onset Date Comments Abnormal Labs 11/23/2021 Encounter Details Date Type Department Care Team Description 11/23/2021 Telephone Hematology/Oncology at [facility] Nilam APRN Abnormal Labs [place] [address] HEMATOLOGY/ONCOLOGY [place], [place] [address] DEPT. [phone] [place], [place] 0[address] (Wo rk) Social History Tobacco [...] Fischer MD [facility] [place] [address] Oncology Alyssa Joseph, TITLE ATTORNEY [address] [place] [address] [place] [address] 03/25/2022 Infusion Hematology and Oncology 03/31/2022 Office Visit Hematology and Alan Livingston M D [facility] HEMATOLOGY/[place] [address] Oncology Nilam So, [facility] HEMATOLOGY/[place] [address] 04/15/2022 Office Visit Hematology and Ángel Fischer Oncology [facility] ONCOLOGY [place], [place] 0[address] (Wo rk) 04/15/2022 Infusion Hematology and Oncology 04/15/2022 Office Visit Hematology and Jazzy Armendariz R D Oncology [facility] CESAR HEMATOLOGY AND ONCOLOGY [place], [place] 0[address] (Wo rk) 09/05/2022 Scheduled View Only Obstetrics and NurseJulian II, ornithology teacher 09/05/2022 Office Visit Obstetrics and Shazia Whitley APRN Gynecology [facility] UROGYNECOLOGY [place], [place] [address] (Wo rk) documented as of this encounter Visit Diagnoses Not on filedocumented in this encounter Care Teams First Line Supervisor Relationship Specialty Start Date End Date Mook Coffey DO PCP - General Family Medicine 02/16/[address] [place] [phone] documented as of this encounter
--- OUTSIDE RECORDS SUMMARY | 2022-03-25 01:26 | XMS_ITS | Encounter Summary ---
:1950 Author Organization [facility] Address [facility] [place] [address] Care Team Providers Name Role Phone Mook Coffey DO Primary Care Provider Encounter Details Date Type Department Care Team Description 03/09/2021 Office Visit Obstetrics and Raz, Chika Sanchez, Mixed inco ntinence; Gynecology at [facility] SECURITY ORDERLY Pessary maintenance [facility] [place] [address] [place] [address] [phone] Social History Tobacco Use Types Packs/Day Years [...] kg (184 lb), SpO2 97 %. A supplier manager was present for the examination: Stacey Castro [...] Visit Hematology and Ripple, Ángel H, MD [facility] [place] [address] Oncology Alyssa Joseph [address] [place] [address] 03/25/2022 Infusion Hematology and Oncology 03/31/2022 Office Visit Hematology and Alan Livingston M D [facility] HEMATOLOGY/[place] [address] Oncology Nilam So [facility] HEMATOLOGY/[place] [address] 04/15/2022 Office Visit Hematology Ángel Kimbrough Oncology [facility] ONCOLOGY [place], [place] 0375 (Wo rk) 04/15/2022 Infusion Hematology and Oncology 04/15/2022 Office Visit Hematology and Jazzy Armendariz R D Oncology [facility] CESAR HEMATOLOGY AND ONCOLOGY [place], [place] 0[address] (Wo rk) 09/05/2022 Scheduled View Only Obstetrics and NurseJulian II, RN Gynecology 09/05/2022 Office Visit Obstetrics and Shazia Whitley SECURITY ORDERLY Gynecology [facility] UROGYNECOLOGY [place], [place] [address] (Wo rk) documented as of [...] (ABNORMAL) Urine culture (03/09/2021 1:30 PM EDT) Patholo gist Method Time Signature Urine Culture Greater than MADIHA 50,000 cfu/mL [facility] coli () [facility] Organism Escherichia MADIHA coli (A) [facility] Specimen Anatomical Collection Method Collection [...] Organization Address City/State/[place] [address] (ABNORMAL) Urinalysis Microscopic Exam (03/09/2021 1:30 PM EDT) Analysis Performed At Patho logist Time Signature RBC UA 11 (H) 0 - 4 /HPF [facility] WBC UA 43 (H) 0 - 5 /HPF [facility] Bacteria UA Many (A) None /HPF [facility] Hyaline Cast 1 0 - 2 /LPF [facility] Specimen Anatomical Collection Method Collection Time Receive d Time (Source) Location / / Volume Laterality Straight 03/09/2021 1:30 PM 1 4:13 Catheter Urine EDT PM EDT Resulting Agency Comment Spec In Lab Chika Crandall APRN URINE ORDERABLES Performing Organization Address City/[facility]/[place] [address] (ABNORMAL) Urinalysis with reflex Culture (03/09/2021 1:30 PM EDT) [facility] Method Time Signature Glucose UA Negative Negative [facility] mg/dL [facility] Protein UA Negative Negative [facility] mg/dL [facility] Bilirubin UA Negative Negative [facility] mg/dL [facility] Comment: Clinical correlation required for positi ve Urine Bilirubin results as false positive may occur with some drugs and d rug related products. If a false positive is suspected a serum total bili reyes should be considered if clinically indicated. Urobilinogen UA Normal Normal mg/dL [facility] pH UA 6.0 5.0 - 8.0 [facility] Blood UA Moderate (A) Negative mg/dL [facility] Ketones UA Negative Negative mg/dL [facility] Nitrite UA Positive (A) Negative [facility] Leukocytes UA Moderate (A) Negative [facility] Appearance UA Clear Clear [facility] Spec Sidney UA 1.010 1.005 - 1.030 [facility] Color UA Yellow Yellow [facility] Culture Reflexed Yes [facility] Specimen Anatomical Collection Method Collection Time Receive d Time (Source) Location / / Volume Laterality Straight 03/09/2021 1:30 PM 1 4:13 Catheter Urine EDT PM EDT Resulting Agency Comment Spec In Lab Chika Crandall APRN URINE ORDERABLES Performing Organization Address City/[facility]/ZIP Code Phon e Number [facility] [place] [address] documented in this encounter Visit Diagnoses Diagnosis Mixed incontinence Mixed incontinence urge and stress (male )(female) Pessary maintenance Fitting and adjustment of other device Colon cancer metastasized to liver Malignant neoplasm of colon, unspecified site documented in this encounter Care Teams Inclusion Manager Relationship Specialty Start Date End Date Mook Coffey DO PCP - General Family Medicine 02/16/[address] [place] [phone] documented as of this encounter
--- OUTSIDE RECORDS SUMMARY | 2022-03-25 01:26 | XMS_ITS | Encounter Summary ---
:1950 Author Organization [facility] Address [address] [facility] [place] [address] Care Team Providers Name Role Phone Mook Coffey DO Primary Care Provider Encounter Details Date Type Department Care Team Description 10/26/2020 Orders Only Hematology/Oncology at Alan Livingston MD CLL (chronic [facility] lymphocytic leukemia) [address] [place], [place] HEMATOLOGY/ONCOLOG [address] Y DEPT. [phone] [place], [place] [address] Social History Tobacco Use Types [...] Description 03/25/2022 Office Visit Ángel Hill MD [facility] [place] [address] Oncology Alyssa Joseph[address] [place] [address] 03/25/2022 Infusion Hematology and Oncology 03/31/2022 Office Visit Hematology and Alan Livingston M D [facility] HEMATOLOGY/[place] [address] Oncology Nilam So [facility] HEMATOLOGY/[place] [address] 04/15/2022 Office Visit Hematology Ángel Kimbrough Oncology [facility] ONCOLOGY [place], [place] 0[address] (Wo rk) 04/15/2022 Infusion Hematology and Oncology 04/15/2022 Office Visit Hematology and Jazzy Armendariz R D Oncology [facility] DR[address] HEMATOLOGY AND ONCOLOGY [place], [place] 0[address] (Wo rk) 09/05/2022 Scheduled View Only Obstetrics and Nurse, Julian COLEMAN, debt counselor 09/05/2022 Office Visit Obstetrics and Shazia Whitley APRN Gynecology [facility] UROGYNECOLOGY [place], [place] [address] (Wo rk) documented as of this encounter Visit Diagnoses Diagnosis CLL (chronic lymphocytic leukemia) Chronic lymphoid leukemia, without menti on of having achieved remission Colon cancer metastasized to liver Malignant neoplasm of colon, unspecified site documented in this encounter Care Teams Chrome Worker Relationship Specialty Start Date End Date Mook Coffey DO PCP - General Family Medicine 02/16/[address] [place] [phone] documented as of this encounter
--- OUTSIDE RECORDS SUMMARY | 2022-03-25 01:26 | XMS_ITS | Encounter Summary ---
:1950 Author Organization [facility] [place] [address] Care Team Providers Name Role Phone Mook Coffey DO Primary Care Provider Reason for Visit Reason Comments Macular Hole Encounter Details Date Type Department Care Team Description 01/31/2020 Office Visit Ophthalmology at [facility] C Venkata Page, 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 [s/p PPV, ERM and ILM peel, SF6 01/05/17 with NNB]; [facility] Macular hole, right eye [s/p PPV, MP, ga s [July 2016] with CBC] [place] [address] [place] [address] OPHTHALMOLOGY DEPT 0375 Social History Tobacco Use Types Packs/Day [...] 03/25/2022 Office Visit Hematology Ángel Kimbrough MD [facility] ONCOLOGY [address] Oncology Alyssa Joseph[address] [place] [address] 03/25/2022 Infusion Hematology and Oncology 03/31/2022 Office Visit Hematology and Alan Livingston M D [facility] HEMATOLOGY/ONCOLOGY DEPT. [address] [facility] HEMATOLOGY/ONCOLOGY DEPT. [address] 04/15/2022 Office Visit Ángel Hill Oncology [facility] ONCOLOGY 0375 (Wo rk) 04/15/2022 Infusion Hematology and Oncology 04/15/2022 Office Visit Hematology and Jazzy Armendariz R D Oncology [facility] CESAR HEMATOLOGY AND ONCOLOGY 0375 (Wo rk) 09/05/2022 Scheduled View Only Obstetrics and Nurse, Julian COLEMAN, dietitian chief 09/05/2022 Office Visit Obstetrics and Shazia Whitley APRN Gynecology [facility] UROGYNECOLOGY 0375 (Wo rk) documented as of this encounter Visit Diagnoses Diagnosis 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 [s/p PPV, ERM and ILM peel, SF6 01/05/17 with NNB] Macular hole, right eye [s/p PPV, MP, ga s [July 2016] with CBC] Macular cyst, hole, or pseudohole of ret deep Colon cancer metastasized to liver Malignant neoplasm of colon, unspecified site documented in this encounter Care Teams Line Pilot Relationship Specialty Start Date End Date Mook Coffey DO PCP - General Family Medicine 02/16/[address] [place] [phone] documented as of this encounter
--- OUTSIDE RECORDS SUMMARY | 2022-03-25 01:26 | XMS_ITS | Encounter Summary ---
:1950 Author Organization [facility] Address [facility] [place] [address] Care Team Providers Name Role Phone Mook Coffey DO Primary Care Provider Encounter Details Date Type Department Care Team Description 03/11/2021 Orders Only Obstetrics and Chika Crandall, Urinary tr act Gynecology at [facility] BUSINESS DEVELOPMENT infection, E. coli [facility], [facility] [address] [place] [address] [place] [address] [phone] Social History Tobacco Use Types Packs/Day Years [...] Office Visit Hematology and Ángel Fischer MD [facility] [place] [address] Oncology Alyssa Joseph[address] [place] [address] 03/25/2022 Infusion Hematology and Oncology 03/31/2022 Office Visit Hematology and Alan Livingston M D [facility] HEMATOLOGY/[place] [address] Oncology Nilam So [facility] HEMATOLOGY/[place] [address] 04/15/2022 Office Visit Ángel Hill Oncology [facility] ONCOLOGY [place], [place] 0[address] (Wo rk) 04/15/2022 Infusion Hematology and Oncology 04/15/2022 Office Visit Hematology and Jazzy Armendariz R D Oncology [facility] DRIVE HEMATOLOGY AND ONCOLOGY [place], [place] 0[address] (Wo rk) 09/05/2022 Scheduled View Only Obstetrics and Julian Enciso II, specialty transformer assembler 09/05/2022 Office Visit Obstetrics and Shazia Whitley APRN Gynecology [facility] UROGYNECOLOGY [place], [place] [address] (Wo rk) documented as of this encounter Visit Diagnoses Diagnosis Urinary tract infection, E. coli Urinary tract infection, site not specif ied Colon cancer metastasized to liver Malignant neoplasm of colon, unspecified site documented in this encounter Care Teams Care Consultant Relationship Specialty Start Date End Date Mook Coffey DO PCP - General Family Medicine 02/16/[address] [place] [phone] documented as of this encounter
--- OUTSIDE RECORDS SUMMARY | 2022-03-25 01:26 | XMS_ITS | Encounter Summary ---
:1950 Author Organization [facility] Address [facility] [place] [address] Care Team Providers Name Role Phone Mook Coffey DO Primary Care Provider Reason for Visit Reason Comments Follow-up pessary check Encounter Details Date Type Department Care Team Description 09/07/2020 Office Visit Obstetrics and Chika Crandall Pessary ma intenance Gynecology at [facility] SENIOR LEAD JAVA DEVELOPER [facility] [address] [place] [address] [phone] (Wo rk) Social History Tobacco Use Types [...] in this encounter Progress Notes Chika Crandall, SENIOR LEAD JAVA DEVELOPER - 09/07/2020 2:45 PM EDT Patient Active [...] and Ángel Fischer MD [facility] [place] [address] Oncology Alyssa Joseph APRN [address] [place] [address] [place] [address] 03/25/2022 Infusion Hematology and Oncology 03/31/2022 Office Visit Hematology and Alan Livingston M D [facility] HEMATOLOGY/[place] [address] Oncology Nilam So, SENIOR LEAD JAVA DEVELOPER [facility] HEMATOLOGY/[place] [address] 04/15/2022 Office Visit Hematology and Ángel Fischer Oncology [facility] ONCOLOGY [place], [place] [address] (Wo rk) 04/15/2022 Infusion Hematology and Oncology 04/15/2022 Office Visit Hematology and Jazzy Armendariz R D [facility] CESAR HEMATOLOGY AND ONCOLOGY [place], [place] 0[address] (Wo rk) 09/05/2022 Scheduled View Only Obstetrics and Nurse, Julian COLEMAN, electrical construction project manager 09/05/2022 Office Visit Obstetrics and Shazia Whitley APRN Gynecology [facility] UROGYNECOLOGY [place], [place] [address] (Wo rk) documented as of this encounter Visit Diagnoses Diagnosis Pessary maintenance Fitting and adjustment of other device Colon cancer metastasized to liver Malignant neoplasm of colon, unspecified site documented in this encounter Care Teams Staff Development Nurse Relationship Specialty Start Date End Date Mook Coffey DO PCP - General Family Medicine 02/16/[address] [place] [phone] documented as of this encounter
--- OUTSIDE RECORDS SUMMARY | 2022-03-25 01:26 | XMS_ITS | Encounter Summary ---
:1950 Author Organization [facility] [place] [address] Care Team Providers Name Role Phone Mook Coffey DO Primary Care Provider Encounter Details Date Type Department Care Team Description 12/18/2019 Office Visit Hematology/Oncology Nilam So, CLL ( chronic at [facility] MEDICAL RESEARCH ASSISTANT lymphocytic leukemia) [address] [place] [phone] HEMATOLOGY/ONCOLOG [phone] Y DEPT. [place], [place] [address] Social History Tobacco Use Types [...] this encounter Progress Notes Nilam So, MEDICAL RESEARCH ASSISTANT - 12/18/2019 11:30 AM EDT Subjective: Patient [...] Ángel Fischer MD [facility] [place] [address] Oncology Alyssa Joseph APRN [address] [place] [address] [place] [address] 03/25/2022 Infusion Hematology and Oncology 03/31/2022 Office Visit Hematology and Alan Livingston M D [facility] HEMATOLOGY/[place] [address] Oncology Nilam So APRN [facility] HEMATOLOGY/[place] [address] 04/15/2022 Office Visit Hematology and Ángel Fischer, Oncology [facility] ONCOLOGY [place], [place] [address] (Wo rk) 04/15/2022 Infusion Hematology and Oncology 04/15/2022 Office Visit Hematology and Jazzy Armendariz R D Oncology [facility] DRIVE HEMATOLOGY AND ONCOLOGY [place], [place] 0[address] (Wo rk) 09/05/2022 Scheduled View Only Obstetrics and Nurse, Julian COLEMAN, tracer lathe set up operator 09/05/2022 Office Visit Obstetrics and Shazia Whitley APRN Gynecology [facility] UROGYNECOLOGY [place], [place] [address] (Wo rk) documented as of [...] site documented in this encounter Care Teams Hairspring Inspector Relationship Specialty Start Date End Date Mook Coffey DO PCP - General Family Medicine 02/16/[address] [place] [phone] documented as of this encounter
--- OUTSIDE RECORDS SUMMARY | 2022-03-25 01:26 | XMS_ITS | Encounter Summary ---
:1950 Author Organization [facility] [place] [address] Care Team Providers Name Role Phone Mook Coffey DO Primary Care Provider Reason for Visit Reason Onset Date Comments Labs Only 06/10/2019 Encounter Details Date Type Department Care Team Description 06/10/2019 Telephone Hematology/Oncology at Alan Kaur MD Labs Only [address] HEMATOLOGY/ONCOLOGY [place], [place] [address] DEPT. [phone] [place], [place] [address] (Wo rk) Social History Tobacco [...] [facility] [place] [address] Oncology Alyssa Joseph, [address] [place] [address] 03/25/2022 Infusion Hematology and Oncology 03/31/2022 Office Visit Hematology and Alan Livingston M D [facility] HEMATOLOGY/[place] [address] Oncology [facility] [address] 04/15/2022 Office Visit Hematology and Ángel Fischer Oncology [facility] ONCOLOGY [place], [place] [address] (Wo rk) 04/15/2022 Infusion Hematology and Oncology 04/15/2022 Office Visit Hematology and Jazzy Armendariz R D Oncology [facility] CESAR HEMATOLOGY AND ONCOLOGY [place], [place] [address] (Wo rk) 09/05/2022 Scheduled View Only Obstetrics and NurseJulian II, RN Gynecology 09/05/2022 Office Visit Obstetrics and Shazia Whitley APRN Gynecology [facility] UROGYNECOLOGY [place], [place] [address] (Wo rk) documented as of [...] on filedocumented in this encounter Care Teams Migrant Leader Relationship Specialty Start Date End Date Mook Coffey DO PCP - General Family Medicine 02/16/[address] [place] [phone] documented as of this encounter
--- OUTSIDE RECORDS SUMMARY | 2022-03-25 01:26 | XMS_ITS | Encounter Summary ---
:1950 Author Organization [facility] Address [address] [place] [address] Care Team Providers Name Role Phone Mook Coffey DO Primary Care Provider Reason for Visit Reason Onset Date Comments Labs Only 06/10/2020 Lab Reporting Encounter Details Date Type Department Care Team Description 06/10/2020 Telephone Hematology Oncology at [place], Labs Only (Lab [facility] RN Reporting) [address] [place] [address] Social History Tobacco Use Types [...] Description 03/25/2022 Office Visit Ángel Hill MD [facility] [place] [address] Oncology Alyssa Joseph[address] [place] [address] 03/25/2022 Infusion Hematology and Oncology 03/31/2022 Office Visit Hematology and Alan Livingston M D [facility] DR HEMATOLOGY/[place] [address] Oncology Nilam So [facility] HEMATOLOGY/[place] [address] 04/15/2022 Office Visit Ángel Hill Oncology [facility] ONCOLOGY [place], [place] [address] (Wo rk) 04/15/2022 Infusion Hematology and Oncology 04/15/2022 Office Visit Hematology and Jazzy Armendariz R D Oncology [facility] CESAR HEMATOLOGY AND ONCOLOGY [place], [place] [address] (Wo rk) 09/05/2022 Scheduled View Only Obstetrics and Julian Enciso II, RN Gynecology 09/05/2022 Office Visit Obstetrics and Shazia Whitley APRN Gynecology [facility] UROGYNECOLOGY [place], [place] [address] (Wo rk) documented as of this encounter Procedures Procedure Name Priority Date/Time Associated Comments Diagnosis IMPLANTABLE DEVICES 02/10/2022 12:00 Resu lts for this SCAN AM EDT procedure are i n the results section. CBC (WITH DIFF) Routine 06/05/2020 Results for this procedure are i n the results section. COMPREHENSIVE Routine 06/05/2020 Results for th is METABOLIC PANEL procedure ar e in (NON-FASTING) the results section. documented in this encounter Results SCAN DOC: IMPLANTABLE DEVICES (02/10/2022 12:00 AM EDT) Narrative 02/10/2022 12:00 AM EDT This result has an attachment that is no t available. Ordered by an unspecified provider. Scanning Provider MEDIA MGR SCAN EXT ORDR/RSLT Comprehensive metabolic panel (non-fasting) (06/05/2020) athologist Signature [...] on filedocumented in this encounter Care Teams Poultry Breeder Relationship Specialty Start Date End Date Mook Coffey DO PCP - General Family Medicine 02/16/[address] [place] [address] [phone] documented as of this encounter
--- OUTSIDE RECORDS SUMMARY | 2022-03-25 01:26 | XMS_ITS | Encounter Summary ---
:1950 Author Organization [facility] Address [facility] [address] [place] [address] Care Team Providers Name Role Phone Mook Coffey DO Primary Care Provider Reason for Visit Reason Onset Date Comments Abnormal Labs 06/05/2020 WBC Encounter Details Date Type Department Care Team Description 06/05/2020 [facility] Rolando KELLEY [address] [place] [address] Social History Tobacco Use Types [...] Office Visit Hematology and Ángel Fischer MD [facility] [place] [address] Oncology Alyssa Joseph, [address] [place] [address] 03/25/2022 Infusion Hematology and Oncology 03/31/2022 Office Visit Hematology and Alan Livingston M D [facility] DR HEMATOLOGY/[place] [address] Oncology Nilam So, MYSQL DEVELOPER [facility] HEMATOLOGY/[place] [address] 04/15/2022 Office Visit Hematology and Ángel Fischer, Oncology [facility] ONCOLOGY [place], [place] [address] (Wo rk) 04/15/2022 Infusion Hematology and Oncology 04/15/2022 Office Visit Hematology and Jazzy Armendariz R D Oncology [facility] HEMATOLOGY AND ONCOLOGY [place], [place] [address] (Wo rk) 09/05/2022 Scheduled View Only Obstetrics and Nurse, Julian COLEMAN, casino slot supervisor 09/05/2022 Office Visit Obstetrics and Shazia Whitley, ADENIKE Gynecology [facility] UROGYNECOLOGY [place], [place] [address] (Wo rk) documented as of this encounter Visit Diagnoses Not on filedocumented in this encounter Care Teams Organ Fixer Relationship Specialty Start Date End Date Mook Coffey DO PCP - General Family Medicine 02/16/[address] [place] [address] [phone] documented as of this encounter
--- OUTSIDE RECORDS SUMMARY | 2022-03-25 01:26 | XMS_ITS | Encounter Summary ---
:1950 Author Organization [facility] [place] [address] Care Team Providers Name Role Phone Mook Coffey DO Primary Care Provider Encounter Details Date Type Department Care Team Description 12/02/2021 Telephone Hematology/Oncology at [facility] Nilam APRN [address] HEMATOLOGY/ONCOLOGY [place], [place] [address] DEPT. [phone] [place], [place] [address] (Wo rk) Social History Tobacco [...] MD [facility] [place] [address] Oncology Alyssa Joseph APRN [address] [place] [address] [place] [address] 03/25/2022 Infusion Hematology and Oncology 03/31/2022 Office Visit Hematology and Alan Livingston M D [facility] HEMATOLOGY/[place] [address] Oncology Nilam So APRN [facility] HEMATOLOGY/[place] [address] 04/15/2022 Office Visit Hematology and Ángel Fischer Oncology [facility] ONCOLOGY [place], [place] [address] (Wo rk) 04/15/2022 Infusion Hematology and Oncology 04/15/2022 Office Visit Hematology and Jazzy Armendariz R D Oncology [facility] CESAR HEMATOLOGY AND ONCOLOGY [place], [place] [address] (Wo rk) 09/05/2022 Scheduled View Only Obstetrics and Nurse, Julian COLEMAN, clinical laboratory manager 09/05/2022 Office Visit Obstetrics and Shazia Whitley APRN Gynecology [facility] UROGYNECOLOGY [place], [place] [address] (Wo rk) Scheduled Orders Name [...] site documented in this encounter Care Teams Technology Strategist Relationship Specialty Start Date End Date Mook Coffey DO PCP - General Family Medicine 02/16/18 [address] [place] [phone] documented as of this encounter
--- OUTSIDE RECORDS SUMMARY | 2022-03-25 01:26 | XMS_ITS | Encounter Summary ---
:1950 Author Organization [facility] [place] [address] Care Team Providers Name Role Phone Mook Coffey DO Primary Care Provider Reason for Visit Reason Comments Macular Hole OS S/P PPV,MP 01/31/20; 2018 Encounter Details Date Type Department Care Team Description 01/17/2022 Office Visit Ophthalmology at [facility] Venkata Swartz, Macular hole, right eye [s/p PPV, MP, gas [July 2016] with CBC]; [facility] 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 [s/p PPV, ERM and ILM peel, SF6 01/05/17 with NNB] [place] [address] CENTER [phone] OPHTHALMOLOGY DEPT [place], [place] [address] Social History Tobacco Use Types [...] for DFE/OCT OU Sooner PRN I, Dewey August, have performed the documentation for this encounter [...] 03/25/2022 Office Visit Hematology Ángel Kimbrough MD [facility] [place] [address] Oncology Alyssa Joseph[address] [place] [address] 03/25/2022 Infusion Hematology and Oncology 03/31/2022 Office Visit Hematology and Alan Livingston M D [facility] HEMATOLOGY/[place] [address] Oncology Nilam So, [facility] HEMATOLOGY/[place] [address] 04/15/2022 Office Visit Ángel Hill Oncology MD [facility] ONCOLOGY [place], [place] 0[address] (Wo rk) 04/15/2022 Infusion Hematology and Oncology 04/15/2022 Office Visit Hematology and Jazzy Armendariz R D Oncology [facility] CESAR HEMATOLOGY AND ONCOLOGY [place], [place] 0[address] (Wo rk) 09/05/2022 Scheduled View Only Obstetrics and Nurse, Julian COLEMAN, liquor inspector 09/05/2022 Office Visit Obstetrics and Shazia Whitley APRN Gynecology [facility] UROGYNECOLOGY [place], [place] 0[address] (Wo rk) documented as of [...] and ILM peel, SF6 01/05/17 with NNB] Colon cancer metastasized to liver Malignant neoplasm of colon, unspecified site documented in this encounter Care Teams Warehouse Delivery Manager Relationship Specialty Start Date End Date Mook Coffey DO PCP - General Family Medicine 02/16/18 [address] [place] [address] documented as of this encounter
--- OUTSIDE RECORDS SUMMARY | 2022-03-25 01:26 | XMS_ITS | Encounter Summary ---
:1950 Author Organization [facility] [place] [address] Care Team Providers Name Role Phone Erlinda Mook Keron MEHTA Primary Care Provider Encounter Details Date Type Department Care Team Description 12/30/2020 Office Visit Hematology/Oncology Bernardo Salmon MD [facility] DR HEMATOLOGY/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 [address] lymphocytic leukemia) [address] [place] [phone] Social History Tobacco Use Types Packs/Day Years [...] in this encounter Progress Notes Nilam So, OIL PIPELINE OPERATOR - 12/30/2020 10:30 AM EDT Subjective: Patient [...] Fischer MD [facility] [place] [address] Oncology Alyssa Joseph APRN [address] [place] [address] [place] [address] 03/25/2022 Infusion Hematology and Oncology 03/31/2022 Office Visit Hematology and Alan Livingston M D [facility] HEMATOLOGY/[place] [address] Oncology Nilam So APRN [facility] HEMATOLOGY/[place] [address] 04/15/2022 Office Visit Hematology and Ángel Fischer Oncology [facility] ONCOLOGY [place], [place] [address] (Wo rk) 04/15/2022 Infusion Hematology and Oncology 04/15/2022 Office Visit Hematology and Jazzy Armendariz R D Oncology [facility] CESAR HEMATOLOGY AND ONCOLOGY [place], [place] 0[address] (Wo rk) 09/05/2022 Scheduled View Only Obstetrics and NurseJulian II, systems mechanic 09/05/2022 Office Visit Obstetrics and Shazia Whitley APRN Gynecology [facility] UROGYNECOLOGY [place], [place] [address] (Wo rk) documented as of [...] / Laterality Volume Blood Nilam So APRN CHEMISTRY ORDERABLES (ABNORMAL) CBC (with Diff) (12/28/2020) [...] site documented in this encounter Care Teams Eyelet Operator Relationship Specialty Start Date End Date Mook Coffey DO PCP - General Family Medicine 02/16/[address] [place] [address] [phone] documented as of this encounter
--- OUTSIDE RECORDS SUMMARY | 2022-03-25 01:27 | XMS_ITS | Encounter Summary ---
:1950 Author Organization [facility] [place] [address] Care Team Providers Name Role Phone Berkley Madrigal MD Primary Care Provider Reason for Referral Diagnostic Test (Routine) - Closed Specialty Diagnoses / Procedures Referred By Contact Refer red To Contact Radiology Diagnoses Overflow incontinence Carol Wahl [facility] Rad Ct Scan Procedures CT Urogram [facility] [place] [address] [place] [address] Referral ID Status Reason Start Date Expiration Date Visits V isits Requested Authorized [id number] Closed Specialty 11/16/2017 11/16/2018 1 1 Service Requested Reason for Visit Diagnostic Test (Routine) - Closed Specialty Diagnoses / Procedures Referred By Contact Refer red To Contact Radiology Diagnoses Overflow incontinence Carol Wahl [facility] Scan Procedures CT Urogram [facility] [place] [address] [place] [address] Referral ID Status Reason Start Date Expiration Date Visits V isits Requested Authorized [id number] Closed Specialty 11/16/2017 11/16/2018 1 1 Service Requested Encounter Details Date Type Department Care Team Description 11/28/[address] Scan at [facility] Ean Wahl [facility] Carol Morel MD incontinence [address] [place], [place] CENTER [address] UROLOGY DEPT. [phone] [place], [place] [address] Social History Tobacco Use Types [...] by mouth 0 Tablet 2 times daily. Green Tea Extract 500 mg Take 500 mg by mouth 0 Cap daily. melatonin 3 mg Tab Take 3 mg by mouth 0 nightly as needed. multivitamin capsule Take 1 capsule by 0 mouth daily. cholecalciferol, Vitamin Take 2,000 mg by 0 D3, 50 mcg (2,000 unit) mouth daily. Capsule glimepiride (AMARYL) 1 mg as needed. 0 03/01/2017 03/14/2018 Tablet glucosamine sulfate 500 Take 500 mg by mouth 0 02/11/2022 mg Tablet daily. omeprazole (PRILOSEC) 20 Take 20 mg by mouth 0 09/07/2021 mg Capsule, Delayed daily. Release(E.C.) imipramine (TOFRANIL) 10 Take 10 mg by mouth 0 11/04/2019 mg tablet every morning. documented as of this encounter Miscellaneous Notes Ancillary Services Notes - Sho Granger - 11/28/2017 4:34 PM EDT [facility] INTERVENTIONAL RADIOLOGY CT UROGRAM PROCEDURE NAME: CAROL STOCK ADDRESS: [address] [address] HOME PHONE: [phone] (home) MOBILE NUMBER: Telephone Information: REFERRING PROVIDER: [...] Fischer MD [facility] [place] [address] Oncology Alyssa Joseph[address] [place] [address] 03/25/2022 Infusion Hematology and Oncology 03/31/2022 Office Visit Hematology and Alan Livingston M D [facility] HEMATOLOGY/[place] [address] Oncology Nilam So [facility] HEMATOLOGY/[place] [address] 04/15/2022 Office Visit Hematology and Ángel Fischer, Oncology [facility] ONCOLOGY [place], [place] [address] (Wo rk) 04/15/2022 Infusion Hematology and Oncology 04/15/2022 Office Visit Hematology and Jazzy Armendariz R D [facility] CESAR HEMATOLOGY AND ONCOLOGY [place], [place] 0[address] (Wo rk) 09/05/2022 Scheduled View Only Obstetrics and NurseJulian II, steel barrel reamer 09/05/2022 Office Visit Obstetrics and Shazia Whitley [facility] Gynecology [facility] UROGYNECOLOGY [place], [place] [address] (Wo rk) documented as of [...] this encounter Visit Diagnoses Diagnosis Overflow incontinence Colon cancer metastasized to liver Malignant neoplasm [...] Routine documented in this encounter Care Teams Housing Management Representative Relationship Specialty Start Date End Date Berkley Madrigal MD PCP - General 04/13/10 02/15/18 AYLEEN Bray [address] [place] [address] documented as of this encounter
--- OUTSIDE RECORDS SUMMARY | 2022-03-25 01:27 | XMS_ITS | Encounter Summary ---
:1950 Author Organization [facility] [place] [address] Care Team Providers Name Role Phone Berkley Madrigal MD Primary Care Provider Encounter Details Date Type Department Care Team Description 11/14/2017 Office Visit [place]rology [place] [facility] Carol Wahl Mixed incontinence; [facility] MD Maria Teresa Urinary incontinence, [place] [address] UROLOGY DEPT. [phone] [place], [place] 0[address] (Wo rk) Social History [...] to a ? Modified MMK performed in [place], [place] 38 years ago. She reports about [...] stroke Review of Systems: General Health: good BOWL ATTENDANT - No headaches or loss of consciousness. [...] booked to see Dr. Prater in gynecology, [facility]. She will discuss a pessary [...] above note and agree with the content, E. Maria Teresa Wahl MD' documented in this encounter Plan of Treatment Upcoming Encounters Date Type Specialty Care Team Description 03/25/2022 Office Visit Hematology and Ángel Fischer MD [facility] [place] [address] Oncology Alyssa Joseph[address] [place] [address] 03/25/2022 Infusion Hematology and Oncology 03/31/2022 Office Visit Hematology and Alan Livingston M D [facility] HEMATOLOGY/[place] [address] Oncology Nilam So APRN [facility] HEMATOLOGY/[place] [address] 04/15/2022 Office Visit Hematology and Ángel Fischer, Oncology [facility] ONCOLOGY [place], [place] [address] (Wo rk) 04/15/2022 Infusion Hematology and Oncology 04/15/2022 Office Visit Hematology and Jazzy Armendariz R D Oncology [facility] [address] HEMATOLOGY AND ONCOLOGY [place], [place] [address] (Wo rk) 09/05/2022 Scheduled View Only Obstetrics and Nurse, Oboneal COLEMAN, quarry supervisor dimension stone 09/05/2022 Office Visit Obstetrics and Shazia Whitley APRN Gynecology [facility] UROGYNECOLOGY [place], [place] [address] (Wo rk) documented as of this encounter Visit Diagnoses Diagnosis Mixed incontinence Mixed incontinence urge and stress (male )(female) Urinary incontinence, overflow Overflow incontinence Colon cancer metastasized to liver Malignant neoplasm of colon, unspecified site documented in this encounter Care Teams Radiation / Chemistry Technician Relationship Specialty Start Date End Date Berkley Madrigal MD PCP - General 04/13/10 02/15/18 AYLEEN Bray [address] [place] [address] documented as of this encounter
--- OUTSIDE RECORDS SUMMARY | 2022-03-25 01:27 | XMS_ITS | Encounter Summary ---
:1950 Author Organization [facility] [place] [address] Care Team Providers Name Role Phone Mook Coffey DO Primary Care Provider Reason for Visit Reason Comments Pessary Check Encounter Details Date Type Department Care Team Description 07/13/2018 Office Visit Obstetrics and Chika Crandall, Liu hernandez intenance; Gynecology at [facility] DIRECTOR OF KIDS [facility] [address] [place] [address] [phone] Social History Tobacco Use Types Packs/Day Years [...] in this encounter Progress Notes Chika Crandall, DIRECTOR OF KIDS - 07/13/2018 1:15 PM EST Patient Active [...] Fischer MD [facility] [place] [address] Oncology Alyssa Joseph [address] MEDICAL ONCOLOGY [place], [place] [address] 03/25/2022 Infusion Hematology and Oncology 03/31/2022 Office Visit Hematology and Alan Livingston M D [facility] HEMATOLOGY/[place] [address] Oncology Nilam So DIRECTOR OF KIDS [facility] HEMATOLOGY/[place] [address] 04/15/2022 Office Visit Hematology and Ángel Fischer Oncology [facility] ONCOLOGY [place], [place] [address] (Wo rk) 04/15/2022 Infusion Hematology and Oncology 04/15/2022 Office Visit Hematology and Jazzy Armendariz R D Oncology [facility] CESAR HEMATOLOGY AND ONCOLOGY [place], [place] [address] (Wo rk) 09/05/2022 Scheduled View Only Obstetrics and Nurse, Julian COLEMAN RNmaintenance engineer oil field 09/05/2022 Office Visit Obstetrics and Shazia Whitley APRN Gynecology [facility] UROGYNECOLOGY [place], [place] [address] (Wo rk) documented as of this encounter Visit Diagnoses Diagnosis Pessary maintenance Fitting and adjustment of other device Candidal intertrigo Candidiasis of skin and nails Colon cancer metastasized to liver Malignant neoplasm of colon, unspecified site documented in this encounter Care Teams Plodding Operator Relationship Specialty Start Date End Date Mook Coffey DO PCP - General Family Medicine 02/16/[address] [place] [phone] documented as of this encounter
--- OUTSIDE RECORDS SUMMARY | 2022-03-25 01:27 | XMS_ITS | Encounter Summary ---
:1950 Author Organization [facility] Address [facility] [place] [address] Care Team Providers Name Role Phone Berkley Madirgal MD Primary Care Provider Encounter Details Date Type Department Care Team Description 09/27/2017 Orders Only Urology at [facility] Carol Wahl, [facility] [place] [address] [facility] [phone] UROLOGY DEPT. [place], [place] [address] (Wo rk) Social History Tobacco [...] Ángel Fischer MD [facility] [place] [address] Oncology Alyssa Joseph[address] [place] [address] 03/25/2022 Infusion Hematology and Oncology 03/31/2022 Office Visit Hematology and Alan Livingston M D [facility] HEMATOLOGY/[place] [address] Oncology Nilam So [facility] HEMATOLOGY/[place] [address] 04/15/2022 Office Visit Hematology Ángel Kimbrough Oncology [facility] ONCOLOGY [place], [place] [address] (Wo rk) 04/15/2022 Infusion Hematology and Oncology 04/15/2022 Office Visit Hematology and Jazzy Armendariz R D Oncology [facility] [address] HEMATOLOGY AND ONCOLOGY [place], [place] [address] (Wo rk) 09/05/2022 Scheduled View Only Obstetrics and Julian Enciso II, middle school counselor 09/05/2022 Office Visit Obstetrics and Shazia Whitley APRN Gynecology [facility] UROGYNECOLOGY [place], [place] [address] (Wo rk) documented as of this encounter Visit Diagnoses Not on filedocumented in this encounter Care Teams Inspector Returned Materials Relationship Specialty Start Date End Date Berkley Madrigal MD PCP - General 04/13/10 02/15/18 AYLEEN Katarina [address] [place] [address] documented as of this encounter
--- OUTSIDE RECORDS SUMMARY | 2022-03-25 01:27 | XMS_ITS | Encounter Summary ---
:1950 Author Organization [facility] Address [facility] [place] [address] Care Team Providers Name Role Phone Mook Coffey DO Primary Care Provider Reason for Visit Reason Comments Follow-up 3 month pessary check Encounter Details Date Type Department Care Team Description 12/31/2018 Office Visit Obstetrics and Chika Cranadll Pessary ma intenance Gynecology at [facility] [place] [address] [place] [address] [phone] (Wo rk) Social History Tobacco Use Types [...] Fischer MD [facility] [place] [address] Oncology Alyssa Joseph APRN [address] [place] [address] [place] [address] 03/25/2022 Infusion Hematology and Oncology 03/31/2022 Office Visit Hematology and Alan Livingston M D [facility] HEMATOLOGY/[place] [address] Oncology Nilam So APRN [facility] HEMATOLOGY/[place] [address] 04/15/2022 Office Visit Hematology Ángel Kimbrough Oncology [facility] ONCOLOGY [place], [place] [address] (Wo rk) 04/15/2022 Infusion Hematology and Oncology 04/15/2022 Office Visit Hematology and Jazzy Armendariz R D Oncology [facility] CESAR HEMATOLOGY AND ONCOLOGY [place], [place] [address] (Wo rk) 09/05/2022 Scheduled View Only Obstetrics and NurseJulian II vp compliance 09/05/2022 Office Visit Obstetrics and Shazia Whitley APRN Gynecology [facility] UROGYNECOLOGY [place], [place] [address] (Wo rk) documented as of [...] site documented in this encounter Care Teams Host Relationship Specialty Start Date End Date Mook Coffey DO PCP - General Family Medicine 02/16/[address] [place] [phone] documented as of this encounter
--- OUTSIDE RECORDS SUMMARY | 2022-03-25 01:27 | XMS_ITS | Encounter Summary ---
:1950 Author Organization [facility] [place] [address] Care Team Providers Name Role Phone Mook Coffey DO Primary Care Provider Reason for Visit Reason Comments Follow-up Encounter Details Date Type Department Care Team Description 05/07/2018 Office Visit Obstetrics and Chika Crandall, Encounter for fitting and adjustment of pessary; Gynecology at [facility] Hematuria, unspecified type [facility] [place], [place] [address] [phone] Social History Tobacco Use Types Packs/Day Years [...] (98.3 ??F), height 163.8 cm (5' 4.49), ztyiiu59.6 kg (180 lb), SpO2 95 %. Pelvic: [...] Fischer MD [facility] [place] [address] Oncology Alyssa Joseph APRN [address] [place] [address] [place] [address] 03/25/2022 Infusion Hematology and Oncology 03/31/2022 Office Visit Hematology and Alan Livingston M D [facility] HEMATOLOGY/[place] [address] Oncology Nilam So APRN [facility] HEMATOLOGY/[place] [address] 04/15/2022 Office Visit Hematology Ángel Kimbrough Oncology [facility] ONCOLOGY [place], [place] [address] (Wo rk) 04/15/2022 Infusion Hematology and Oncology 04/15/2022 Office Visit Hematology and Jazzy Armendariz R D [facility] CESAR HEMATOLOGY AND ONCOLOGY [place], [place] [address] (Wo rk) 09/05/2022 Scheduled View Only Obstetrics and Nurse, Obgyn II, line tender flakeboard 09/05/2022 Office Visit Obstetrics and Shazia Whitley APRN Gynecology [facility] UROGYNECOLOGY [place], [place] [address] (Wo rk) documented as of this encounter [...] UA 16 (H) 0 - 4 /HPF [facility] WBC UA 1 0 - 5 /HPF [facility] Bacteria UA Rare (A) None /HPF [facility] Hyaline Cast 3 (H) 0 - 2 /LPF [facility] Specimen Anatomical Collection Method Collection Time Receive d Time (Source) Location / / Volume Laterality Urine specimen 05/07/2018 1:47 PM 018 3:53 obtained via EST PM EST straight catheter (specimen) Resulting Agency Comment Spec In Lab Chika Crandall APRN URINE ORDERABLES Performing Organization Address City/State/ZIP [place] [address] (ABNORMAL) Urinalysis with reflex Culture (05/07/2018 1:47 PM EST) Patholo gist Method Time Signature Glucose UA Negative Negative [facility] mg/dL [facility] Protein UA Negative Negative [facility] mg/dL [facility] Bilirubin UA Negative Negative [facility] mg/dL [facility] Comment: Clinical correlation required for positi ve Urine Bilirubin results as false positive may occur with some drugs and d rug related products. If a false positive is suspected a serum total bili reyes should be considered if clinically indicated. Urobilinogen UA Normal Normal mg/dL [facility] pH UA 6.0 5.0 - 8.0 [facility] Blood UA Large (A) Negative mg/dL [facility] Ketones UA Negative Negative mg/dL [facility] Nitrite UA Negative Negative [facility] Leukocytes UA Negative Negative mcL [facility] Appearance UA Clear Clear [facility] Spec [place] UA 1.010 1.002 - 1.030 [facility] Color UA Yellow Yellow [facility] Culture Reflexed No [facility] Specimen Anatomical Collection Method Collection Time Receive d Time (Source) Location / / Volume Laterality Urine specimen 05/07/2018 1:47 PM 018 3:53 obtained via EST PM EST straight catheter (specimen) Resulting Agency Comment Spec In Lab Chika Crandall APRN URINE ORDERABLES Performing Organization Address City/State/[place] [address] POCT urine dipstick (05/07/2018) [facility] gist Method Time Signature POC Sp [place] 1.015 1.002 - 1.030 POC pH, UA [...] adjustment of other device Hematuria, unspecified type Colon cancer metastasized to liver Malignant neoplasm of colon, unspecified site documented in this encounter Care Teams Roller Stainer Relationship Specialty Start Date End Date Coffey, Mook S, DO PCP - General Family Medicine 02/16/18 [address] [place] [phone] documented as of this encounter
--- OUTSIDE RECORDS SUMMARY | 2022-03-25 01:27 | XMS_ITS | Encounter Summary ---
:1950 Author Organization [facility] [place] [place] [address] Care Team Providers Name Role Phone Mook Coffey DO Primary Care Provider Encounter Details Date Type Department Care Team Description 03/27/2018 Office Visit Urology at [facility] MaryuriCarol craft Stress incontinence, female; [facility] MD Maria Teresa Urethral sphincter deficiency, intrinsic (ISD) [place] [address] UROLOGY DEPT. [phone] [place], [place] [address] (Wo rk) Social History Tobacco [...] to a ? Modified MMK performed in [place], [place] 38 years ago. She reports about [...] stroke Review of Systems: General Health: good SUPERVISOR ENROBING - No headaches or loss of consciousness. [...] booked to see Dr. Prater in gynecology, [facility]. She will discuss a pessary with him. [...] Kimbrough MD [facility] [place] [address] Oncology Alyssa Joseph[address] [place] [address] 03/25/2022 Infusion Hematology and Oncology 03/31/2022 Office Visit Hematology and Alan Livingston M D [facility] HEMATOLOGY/[place] [address] Oncology Nilam So [facility] HEMATOLOGY/[place] [address] 04/15/2022 Office Visit Hematology Ángel Kimbrough Oncology [facility] ONCOLOGY [place], [place] [address] (Wo rk) 04/15/2022 Infusion Hematology and Oncology 04/15/2022 Office Visit Hematology and Jazzy Armendariz R D Oncology [facility]AR HEMATOLOGY AND ONCOLOGY [place], [place] [address] (Wo rk) 09/05/2022 Scheduled View Only Obstetrics and NurseJulian II, dye machine operator 09/05/2022 Office Visit Obstetrics and Shazia Whitley APRN Gynecology [facility] UROGYNECOLOGY [place], [place] [address] (Wo rk) documented as of [...] (ISD) Intrinsic (urethral) sphincter deficienc y (ISD) Colon cancer metastasized to liver Malignant neoplasm of colon, unspecified site documented in this encounter Care Teams House Player Relationship Specialty Start Date End Date Mook Coffey DO PCP - General Family Medicine 02/16/18 [address] [place] [phone] documented as of this encounter
--- OUTSIDE RECORDS SUMMARY | 2022-03-25 01:27 | XMS_ITS | Encounter Summary ---
:1950 Author Organization [facility] [address] Care Team Providers Name Role Phone Berkley Madrigal MD Primary Care Provider Reason for Referral Surgical (Routine) - Closed Specialty Diagnoses / Procedures Referred By Contact Refer red To Contact Diagnoses Stress incontinence, female Carol Wahl MD Procedures Collagen Endoscopic Injection [facility] [place] [address] Referral ID Status Reason Start Date Expiration Date Visits V isits Requested Authorized [id number] Closed Consult, 11/28/2017 11/28/2018 1 1 Test & Treat Reason for Visit Surgical (Routine) - Closed Specialty Diagnoses / Procedures Referred By Contact Refer red To Contact Diagnoses Stress incontinence, female Carol Wahl MD Procedures Collagen Endoscopic Injection [facility] [place] [address] Referral ID Status Reason Start Date Expiration Date Visits V isits Requested Authorized [id number] Closed Consult, 11/28/2017 11/28/2018 1 1 Test & Treat Encounter Details Date Type Department Care Team Description 11/28/2017 Office Visit Urology at [facility] Carol Wahl Stress incontinence, female; [facility] MD Maria Teresa Mixed incontinence; Drive [facility] Urethral sphincter deficienc y, intrinsic ([place]D) [place] [address] UROLOGY DEPT. [phone] [place], [place] [address] (Wo rk) Social History Tobacco [...] to a ? Modified MMK performed in [place], [place] 38 years ago. 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 [...] booked to see Dr. Prater in gynecology, [facility]. She will discuss a pessary with him. [...] 03/25/2022 Office Visit Hematology Ángel Kimbrough MD [facility] [place] [address] Oncology Alyssa Joseph [address] [place] [address] 03/25/2022 Infusion Hematology and Oncology 03/31/2022 Office Visit Hematology and Alan Livingston M D [facility] HEMATOLOGY/[place] [address] Oncology Nilam So APRN [facility] HEMATOLOGY/[place] [address] 04/15/2022 Office Visit Ángel Hill Oncology MD [facility] ONCOLOGY [place], [place] [address] (Wo kash) 04/15/2022 Infusion Hematology and Oncology 04/15/2022 Office Visit Hematology and Jazzy Armendariz R D Oncology [facility] CESAR HEMATOLOGY AND ONCOLOGY [place], [place] [address] (Wo rk) 09/05/2022 Scheduled View Only Obstetrics and Nurse, Oboneal COLEMAN, bird keeper 09/05/2022 Office Visit Obstetrics and Shazia Whitley APRN Gynecology [facility] UROGYNECOLOGY [place], [place] [address] (Wo rk) documented as of [...] documented in this encounter Care Teams Precision Aircraft Structure Assembler Relationship Specialty Start Date End Date Berkley Madrigal MD PCP - General 04/13/10 02/15/18 AYLEEN Bray [address] [place] [address] documented as of this encounter
--- OUTSIDE RECORDS SUMMARY | 2022-03-25 01:27 | XMS_ITS | Encounter Summary ---
:1950 Author Organization [facility] [place] [address] Care Team Providers Name Role Phone Mook Coffey DO Primary Care Provider Encounter Details Date Type Department Care Team Description 02/13/2019 Office Visit Hematology/Oncology Nilam So, CLL ( chronic at [facility] BARRELHEAD INSPECTOR lymphocytic leukemia) [address] [place] [id number] HEMATOLOGY/ONCOLOG [phone] Y DEPT. [place], [place] [address] Social History Tobacco Use Types [...] in this encounter Progress Notes Nilam So, BARRELHEAD INSPECTOR - 02/13/2019 12:00 PM EDT Subjective: Patient [...] Fischer MD [facility] [place] [address] Oncology Alyssa Joseph[address] [place] [address] 03/25/2022 Infusion Hematology and Oncology 03/31/2022 Office Visit Hematology and Alan Livingston M D [facility] HEMATOLOGY/[place] [address] Oncology Nilam So [facility] HEMATOLOGY/[place] [address] 04/15/2022 Office Visit Hematology and Ángel Fischer, Oncology [facility] ONCOLOGY [place], [place] [address] (Wo rk) 04/15/2022 Infusion Hematology and Oncology 04/15/2022 Office Visit Hematology and Jazzy Armendariz R D [facility] CESAR HEMATOLOGY AND ONCOLOGY [place], [place] 0[address] (Wo rk) 09/05/2022 Scheduled View Only Obstetrics and Nurse, Julian COLEMAN, engine assembly supervisor 09/05/2022 Office Visit Obstetrics and Shazia Whitley BARRELHEAD INSPECTOR Gynecology [facility] UROGYNECOLOGY [place], [place] [address] (Wo rk) documented as of [...] Volume Blood specimen 02/04/2019 (specimen) Nilam So BARRELHEAD INSPECTOR CHEMISTRY ORDERABLES CBC (with Diff) (02/04/2019) P athologist Signature WBC 118.2 Hemoglobin 13.2 Hematocrit 42.8 Platelets 169 Neutr Abs (ANC) 7.09 Specimen (Source) Anatomical Location Collection Method / Collectio n Time Received Time / Laterality Volume Blood specimen 02/04/2019 (specimen) Nilam So BARRELHEAD INSPECTOR HEMATOLOGY ORDERABLES Comprehensive metabolic panel (non-fasting) (02/04/2019) athologist Signature BUN 19 Creatinine 0.70 Specimen (Source) Anatomical Location Collection Method / Collectio n Time Received Time / Laterality Volume Blood specimen 02/04/2019 (specimen) Nilam So APRN CHEMISTRY ORDERABLES documented in this encounter Visit Diagnoses Diagnosis CLL (chronic lymphocytic leukemia) Chronic lymphoid leukemia, without menti on of having achieved remission Colon cancer metastasized to liver Malignant neoplasm of colon, unspecified site documented in this encounter Care Teams Ranch Hand Livestock Relationship Specialty Start Date End Date Mook Coffey DO PCP - General Family Medicine 02/16/[address] [place] [phone] documented as of this encounter
--- OUTSIDE RECORDS SUMMARY | 2022-03-25 01:27 | XMS_ITS | Encounter Summary ---
:1950 Author Organization [facility] [place] [address] Care Team Providers Name Role Phone Mook Coffey DO Primary Care Provider Encounter Details Date Type Department Care Team Description 06/14/2018 Office Visit Hematology/Oncology Shayna Livingston MD CLL (chronic at [facility] lymphocytic leukemia) [address] [place], [place] HEMATOLOGY/ONCOLOG [address] Y DEPT. [phone] [place], [place] [address] Social History Tobacco Use Types [...] is a 68-year-old female who returns to [facility] in follow-up for her CLL. She has [...] monitoring. She will see Nilam YOUSSEF at [facility]. documented in this encounter Plan of Treatment Upcoming Encounters Date Type Specialty Care Team Description 03/25/2022 Office Visit Hematology and Ángel Fischer MD [facility] [place] [place] [address] Oncology Alyssa Joseph[address] [place] [address] 03/25/2022 Infusion Hematology and Oncology 03/31/2022 Office Visit Hematology and Alan Livingston M D [facility] HEMATOLOGY/[place] [address] Oncology Nilam So APRN [facility] HEMATOLOGY/[place] [address] 04/15/2022 Office Visit Hematology and Ángel Fischer, Oncology [facility] ONCOLOGY [place], [place] [address] (Wo rk) 04/15/2022 Infusion Hematology and Oncology 04/15/2022 Office Visit Hematology and Jazzy Armendariz R D Oncology [facility] DRIVE HEMATOLOGY AND ONCOLOGY [place], [place] 0[address] (Wo rk) 09/05/2022 Scheduled View Only Obstetrics and Nurse, Julian COLEMAN, rn ed 09/05/2022 Office Visit Obstetrics and Shazia Whitley APRN Gynecology [facility] UROGYNECOLOGY [place], [place] [address] (Wo rk) documented as of this encounter Visit Diagnoses Diagnosis CLL (chronic lymphocytic leukemia) Chronic lymphoid leukemia, without menti on of having achieved remission Colon cancer metastasized to liver Malignant neoplasm of colon, unspecified site documented in this encounter Care Teams Global Account Manager Relationship Specialty Start Date End Date Mook Coffey DO PCP - General Family Medicine 02/16/[address] [place] [phone] documented as of this encounter
--- OUTSIDE RECORDS SUMMARY | 2022-03-25 01:27 | XMS_ITS | Encounter Summary ---
:1950 Author Organization [facility] [place] [address] Care Team Providers Name Role Phone Mook Coffey DO Primary Care Provider Reason for Visit Reason Comments Follow-up Encounter Details Date Type Department Care Team Description 02/16/2018 Office Visit Obstetrics and Nakul Prater, Prolapse of vaginal Gynecology at [facility] MD villaseñor [facility] [address] Fern[address]dez, [place], [place] [phone] [phone] Social History Tobacco Use Types Packs/Day Years [...] TYPE: Pessary follow-up visit 02/18/2018 Carol Keller [id number] PESSARY TYPE: Ring with Support size 5 [...] Office Visit Hematology and Ángel Fischer MD [facility] [place] [address] Oncology Alyssa Joseph [address] [place] [address] 03/25/2022 Infusion Hematology and Oncology 03/31/2022 Office Visit Hematology and Alan Livingston M D [facility] HEMATOLOGY/[place] [address] Oncology Nilam So MARKETING ANALYTICS LEAD [facility] HEMATOLOGY/[place] [address] 04/15/2022 Office Visit Ángel Hill Oncology MD [facility] ONCOLOGY [place], [place] [address] (Wo rk) 04/15/2022 Infusion Hematology and Oncology 04/15/2022 Office Visit Hematology and Jazzy Armendariz R D Oncology [facility] CESAR HEMATOLOGY AND ONCOLOGY [place], [place] [address] (Wo rk) 09/05/2022 Scheduled View Only Obstetrics and Nurse, Julian COLEMAN, credit collection specialist 09/05/2022 Office Visit Obstetrics and Shazia Whitley APRN Gynecology [facility] UROGYNECOLOGY [place], [place] [address] (Wo rk) documented as of this encounter Visit Diagnoses Diagnosis Prolapse of vaginal wall Unspecified prolapse of vaginal alberts Colon cancer metastasized to liver Malignant neoplasm of colon, unspecified site documented in this encounter Care Teams Engineer Technician Relationship Specialty Start Date End Date Mook Coffey DO PCP - General Family Medicine 02/16/[address] [place] [phone] documented as of this encounter
--- OUTSIDE RECORDS SUMMARY | 2022-03-25 01:27 | XMS_ITS | Encounter Summary ---
:1950 Author Organization [facility] Address [facility] [place] [address] Care Team Providers Name Role Phone Mook Coffey DO Primary Care Provider Reason for Visit Reason Onset Date Comments Labs Only 06/07/2018 Encounter Details Date Type Department Care Team Description 06/07/2018 Telephone Hematology/Oncology at Maddie Arteaga RN Labs Only [address] [phone] Social History Tobacco Use [...] MD [facility] [place] [address] Oncology Alyssa Joseph, [address] [place] [address] 03/25/2022 Infusion Hematology and Oncology 03/31/2022 Office Visit Hematology and Alan Livingston M D [facility] HEMATOLOGY/[place] [address] Oncology Nilam So WATER JET LOOM FIXER [facility] HEMATOLOGY/[place] [address] 04/15/2022 Office Visit Hematology and Ángel Fischer, Oncology [facility] ONCOLOGY [place], [place] [address] (Wo rk) 04/15/2022 Infusion Hematology and Oncology 04/15/2022 Office Visit Hematology and Jazzy Armendariz R D Oncology [facility] DRIVE HEMATOLOGY AND ONCOLOGY [place], [place] [address] (Wo rk) 09/05/2022 Scheduled View Only Obstetrics and NurseJulian II, roofing technician 09/05/2022 Office Visit Obstetrics and Shazia Whitley APRN Gynecology [facility] UROGYNECOLOGY [place], [place] [address] (Wo rk) documented as of [...] on filedocumented in this encounter Care Teams Lump Maker Relationship Specialty Start Date End Date Mook Coffey DO PCP - General Family Medicine 02/16/[address] [place] [phone] documented as of this encounter
--- OUTSIDE RECORDS SUMMARY | 2022-03-25 01:27 | XMS_ITS | Encounter Summary ---
:1950 Author Organization [facility] Address [address] [address] Care Team Providers Name Role Phone Berkley Madrigal MD Primary Care Provider Reason for Visit Reason Onset Date Comments Labs Only 11/27/2017 critical lab Encounter Details Date Type Department Care Team Description 11/27/2017 Telephone Hematology/Oncology at Maddie Richardson RN Labs Only (critical lab) [address] [phone] Social History Tobacco Use Types [...] PM EDT White count 116.9, Nilam So TONG CARRIER notified. She will see her December 06, 2017. documented in this encounter Plan of Treatment Upcoming Encounters Date Type Specialty Care Team Description 03/25/2022 Office Visit Hematology and Ángel Fischer MD [facility] [place] [address] Oncology Alyssa Joseph[address] [place] [address] 03/25/2022 Infusion Hematology and Oncology 03/31/2022 Office Visit Hematology and lAan Livingston M D [facility] HEMATOLOGY/[place] [address] Oncology Nilam So METER TESTER PRIMARY [facility] HEMATOLOGY/[place] [address] 04/15/2022 Office Visit Hematology and Ángel Fischer, Oncology [facility] ONCOLOGY [place], [place] [address] (Wo rk) 04/15/2022 Infusion Hematology and Oncology 04/15/2022 Office Visit Hematology and Jazzy Armendariz R D Oncology [facility] CESAR HEMATOLOGY AND ONCOLOGY [place], [place] [address] (Wo rk) 09/05/2022 Scheduled View Only Obstetrics and NurseJulian II, pump rebuilder 09/05/2022 Office Visit Obstetrics and Shazia Whitley APRN Gynecology [facility] UROGYNECOLOGY [place], [place] [address] (Wo rk) documented as of [...] on filedocumented in this encounter Care Teams Spa Supervisor Relationship Specialty Start Date End Date Berkley Madrigal MD PCP - General 04/13/10 02/15/18 AYLEEN Katarina [address] [place], [place] [id number] documented as of this encounter
--- OUTSIDE RECORDS SUMMARY | 2022-03-25 01:27 | XMS_ITS | Encounter Summary ---
:1950 Author Organization [facility] [place] [address] Care Team Providers Name Role Phone Mook Coffey DO Primary Care Provider Reason for Referral Surgical (Routine) - Specialty Diagnoses / Procedures Referred By Contact Refer red To Contact Diagnoses Urethral sphincter deficiency, intrinsic (ISD) Carol Wahl MD Procedures Collagen Endoscopic Injection [facility] [address] Referral ID Status Reason Start Date Expiration Date Visits V isits Requested Authorized [id number] Consult, 05/28/2018 05/28/2019 1 1 Test & Treat Encounter Details Date Type Department Care Team Description 05/28/2018 Office Visit Urology at [facility] [place] Carol Wahl Urethral sphincter deficienc y, intrinsic (ISD); [facility] MD Maria Teresa Stress incontinence [place] [address] UROLOGY DEPT. [phone] [place], [place] [address] (Wo rk) Social History Tobacco [...] in this encounter Patient Instructions Patient Carol Magaña RN - 05/28/2018 9:40 AM EST Coaptite [...] documented in this encounter Progress Notes Carol aWhl MD - 05/28/2018 9:40 AM EST See [...] to a ? Modified MMK performed in [place], [place] 38 years ago. 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 Prater in gynecology, [facility]. She will discuss a pessary [...] Description 03/25/2022 Office Visit Ángel Hill MD [facility] [place] [address] Oncology Alyssa Joseph [address] [place] [address] 03/25/2022 Infusion Hematology and Oncology 03/31/2022 Office Visit Hematology and Alan Livingston M D [facility] HEMATOLOGY/[place] [address] Oncology Nilam So LANDSCAPE ARCHITECT AND PLANNER [facility] HEMATOLOGY/[place] [address] 04/15/2022 Office Visit Ángel Hill Oncology MD [facility] ONCOLOGY [place], [place] [address] (Wo kash) 04/15/2022 Infusion Hematology and Oncology 04/15/2022 Office Visit Hematology and Jazzy Armendariz R D Oncology [facility] CESAR HEMATOLOGY AND ONCOLOGY [place], [place] 0[address] (Wo rk) 09/05/2022 Scheduled View Only Obstetrics and Nurse, Oboneal II, slab lifting engineer 09/05/2022 Office Visit Obstetrics and Shazia Whitley APRN Gynecology [facility] UROGYNECOLOGY [place], [place] [address] (Wo rk) documented as of this encounter [...] Clean Catch Urine (05/28/2018 10:07 AM EST) [facility] Method Time Signature Urine Culture 1,000-9,000 cfu/ml [...] City/State/ZIP Code [place] [address] Collagen Endoscopic Injection (05/28/2018 9:40 AM EST) Narrative Carol Wahl MD - 05/28/2018 9:40 AM Carol Doshi MD ? 06/02/2018 ??2:46 PM The patient [...] deficienc y (ISD) Stress incontinence in female Colon cancer metastasized to liver Malignant neoplasm of colon, unspecified site documented in this encounter Care Teams Ticket Writer Relationship Specialty Start Date End Date Mook Coffey DO PCP - General Family Medicine 02/16/[address] [place] [phone] documented as of this encounter
--- OUTSIDE RECORDS SUMMARY | 2022-03-25 01:27 | XMS_ITS | Encounter Summary ---
:1950 Author Organization [facility] Address [facility] [place] [address] Care Team Providers Name Role Phone Mook Coffey DO Primary Care Provider Reason for Visit Reason Comments Follow-up shruthi holt Encounter Details Date Type Department Care Team Description 10/16/2018 Office Visit Obstetrics and Chika Crandall Pessary ma intenance Gynecology at [facility] COLLECTION ANALYST Former[facility] [place] [address] [place] [address] [phone] (Wo rk) Social History Tobacco Use Types [...] Fischer MD [facility] [place] [address] Oncology Alyssa Joseph[address] [place] [address] 03/25/2022 Infusion Hematology and Oncology 03/31/2022 Office Visit Hematology and Alan Livingston M D [facility] DR HEMATOLOGY/ONCOLOGY [place] [address] Oncology Nilam So [facility] HEMATOLOGY/ONCOLOGY [place] [address] 04/15/2022 Office Visit Hematology and Ángel Fischer, Oncology [facility] ONCOLOGY [place], [place] 0[address] (Wo rk) 04/15/2022 Infusion Hematology and Oncology 04/15/2022 Office Visit Hematology and Jazzy Armendariz R D [facility] HEMATOLOGY AND ONCOLOGY [place], [place] 0[address] (Wo rk) 09/05/2022 Scheduled View Only Obstetrics and NurseJulian II electronic publishing specialist 09/05/2022 Office Visit Obstetrics and Shazia Whitley APRN Gynecology [facility] UROGYNECOLOGY [place], [place] [address] (Wo rk) documented as of this encounter Visit Diagnoses Diagnosis Pessary maintenance Fitting and adjustment of other device Colon cancer metastasized to liver Malignant neoplasm of colon, unspecified site documented in this encounter Care Teams Third Mate Relationship Specialty Start Date End Date Mook Coffey DO PCP - General Family Medicine 02/16/18 [address] [place] [phone] documented as of this encounter
--- OUTSIDE RECORDS SUMMARY | 2022-03-25 01:27 | XMS_ITS | Encounter Summary ---
:1950 Author Organization [facility] Address [facility] [place] [address] Care Team Providers Name Role Phone Berkley Madrigal MD Primary Care Provider Encounter Details Date Type Department Care Team Description 09/27/2017 Telephone Urology at [facility] Carol Wahl, [facility] [place] [address] [facility] [phone] UROLOGY DEPT. [place], [place] [address] (Wo rk) Social History Tobacco [...] and Ángel Fischer MD [facility] [place] [address] Oncology Alyssa Joseph APRN [address] [place] [address] [place] [address] 03/25/2022 Infusion Hematology and Oncology 03/31/2022 Office Visit Hematology and Alan Livingston M D [facility] DR HEMATOLOGY/[place] [address] Oncology Nilam So, PUBLIC RELATIONS INTERN [facility] HEMATOLOGY/[place] [address] 04/15/2022 Office Visit Hematology and Ángel Fischer Oncology [facility] ONCOLOGY [place], [place] [address] (Wo rk) 04/15/2022 Infusion Hematology and Oncology 04/15/2022 Office Visit Hematology and Jazzy Armendariz R D Oncology [facility] CESAR HEMATOLOGY AND ONCOLOGY [place], [place] [address] (Wo rk) 09/05/2022 Scheduled View Only Obstetrics and Julian Enciso II, consulting sales executive 09/05/2022 Office Visit Obstetrics and Shazia Whitley APRN Gynecology [facility] UROGYNECOLOGY [place], [place] [address] (Wo rk) documented as of this encounter Visit Diagnoses Not on filedocumented in this encounter Care Teams Community Organization Director Relationship Specialty Start Date End Date Berkley Madrigal MD PCP - General 04/13/10 02/15/18 AYLEEN Bray [address] [place] [address] documented as of this encounter
--- OUTSIDE RECORDS SUMMARY | 2022-03-25 01:27 | XMS_ITS | Encounter Summary ---
:1950 Author Organization [facility] [address] Care Team Providers Name Role Phone Berkley Madrigal MD Primary Care Provider Encounter Details Date Type Department Care Team Description 09/21/2017 Patient Outreach Urology at [facility] [place] JyotiCarol nolen [facility] H, [place] [address] Social History Tobacco Use Types Packs/Day [...] [facility] [place] [address] Oncology Alyssa Joseph, [address] [place] [address] 03/25/2022 Infusion Hematology and Oncology 03/31/2022 Office Visit Hematology and Alan Livingston M D [facility] HEMATOLOGY/[place] [address] Oncology Nilam So RN ADVICE [facility] HEMATOLOGY/[place] [address] 04/15/2022 Office Visit Hematology and Ángel Fischer, Oncology [facility] ONCOLOGY [place], [place] [address] (Wo rk) 04/15/2022 Infusion Hematology and Oncology 04/15/2022 Office Visit Hematology and Jazzy Armendariz R D Oncology [facility] DRIVE HEMATOLOGY AND ONCOLOGY [place], [place] 0[address] (Wo rk) 09/05/2022 Scheduled View Only Obstetrics and NurseJulian II, soil sampler 09/05/2022 Office Visit Obstetrics and Shazia Whitley APRN Gynecology [facility] UROGYNECOLOGY [place], [place] [address] (Wo rk) documented as of this encounter Visit Diagnoses Not on filedocumented in this encounter Care Teams Framing Specialist Relationship Specialty Start Date End Date Berkley Madrigal MD PCP - General 04/13/10 02/15/18 AYLEEN Katarina [address] [place] [address] documented as of this encounter
--- OUTSIDE RECORDS SUMMARY | 2022-03-25 01:27 | XMS_ITS | Encounter Summary ---
:1950 Author Organization [facility] Address [facility] [place] [address] Care Team Providers Name Role Phone Berkley Madrigal MD Primary Care Provider Encounter Details Date Type Department Care Team Description 11/20/2017 Orders Only Urology at [facility] Carol Wahl, [facility] [place] [address] [facility] [phone] UROLOGY DEPT. [place], [place] [address] (Wo rk) Social History Tobacco [...] Office Visit Hematology and Ángel Fischer MD [facility] [place] [address] Oncology Alyssa Joseph[address] [place] [address] 03/25/2022 Infusion Hematology and Oncology 03/31/2022 Office Visit Hematology and Alan Livingston M D [facility] HEMATOLOGY/[place] [address] Oncology Nilam So [facility] HEMATOLOGY/[place] [address] 04/15/2022 Office Visit Hematology Ángel Kimbrough Oncology [facility] ONCOLOGY [place], [place] [address] (Wo rk) 04/15/2022 Infusion Hematology and Oncology 04/15/2022 Office Visit Hematology and Jazzy Armendariz R D Oncology [facility] DRIVE HEMATOLOGY AND ONCOLOGY [place], [place] 0[address] (Wo rk) 09/05/2022 Scheduled View Only Obstetrics and Julian Enciso II, construction representative 09/05/2022 Office Visit Obstetrics and Shazia Whitley APRN Gynecology [facility] UROGYNECOLOGY [place], [place] 0[address] (Wo rk) documented as of this encounter Visit Diagnoses Not on filedocumented in this encounter Care Teams It Help Desk Technician Relationship Specialty Start Date End Date Berkley Madrigal MD PCP - General 04/13/10 02/15/18 AYLEEN Katarina [address] [place] [address] documented as of this encounter
--- OUTSIDE RECORDS SUMMARY | 2022-03-25 01:27 | XMS_ITS | Encounter Summary ---
:1950 Author Organization [facility] Address [facility] [place] [address] Care Team Providers Name Role Phone Mook Coffey DO Primary Care Provider Encounter Details Date Type Department Care Team Description 05/29/2018 Notes Only Urology at [facility] Carol Montes, [facility] [place] [address] Social History Tobacco Use Types Packs/Day [...] MD [facility] [place] [address] Oncology Alyssa Joseph[address] [address] 03/25/2022 Infusion Hematology and Oncology 03/31/2022 Office Visit Hematology and Alan Livingston M D [facility] HEMATOLOGY/[place] [address] Oncology Nilam So [facility] HEMATOLOGY/[place] [address] 04/15/2022 Office Visit Hematology and Ángel Fischer, Oncology [facility] ONCOLOGY [place], [place] 0[address] (Wo rk) 04/15/2022 Infusion Hematology and Oncology 04/15/2022 Office Visit Hematology and Jazzy Armendariz R D Oncology [facility] DRIVE HEMATOLOGY AND ONCOLOGY [place], [place] 0[address] (Wo rk) 09/05/2022 Scheduled View Only Obstetrics and NurseJulian II, occupational rehabilitation aide 09/05/2022 Office Visit Obstetrics and Shazia Whitley APRN Gynecology [facility] UROGYNECOLOGY [place], [place] [address] (Wo rk) documented as of this encounter Visit Diagnoses Not on filedocumented in this encounter Care Teams Gold Layer Relationship Specialty Start Date End Date Mook Coffey DO PCP - General Family Medicine 02/16/[address] [place] [phone] documented as of this encounter
--- OUTSIDE RECORDS SUMMARY | 2022-03-25 01:27 | XMS_ITS | Encounter Summary ---
:1950 Author Organization [facility] [place] [address] Care Team Providers Name Role Phone Mook Coffey DO Primary Care Provider Encounter Details Date Type Department Care Team Description 10/24/2018 Office Visit Hematology/Oncology Bernardo Salmon MD [facility] DR HEMATOLOGY/[place] [address] CLL (chronic at [facility] Nilam So APRN [facility] DR HEMATOLOGY/[place] [address] lymphocytic leukemia) [address] [place] [phone] Social History Tobacco Use Types Packs/Day [...] in this encounter Progress Notes Nilam So, PLANNING AIDE - 10/24/2018 11:30 AM EDT Subjective: Patient [...] MD [facility] [place] [address] Oncology Alyssa Joseph APRN [address] [place] [address] [place] [address] 03/25/2022 Infusion Hematology and Oncology 03/31/2022 Office Visit Hematology and Alan Livingston M D [facility] DR HEMATOLOGY/[place] [address] Oncology Nilam So APRN [facility] HEMATOLOGY/[place] [address] 04/15/2022 Office Visit Hematology and Ángel Fischer Oncology [facility] ONCOLOGY [place], [place] 0[address] (Wo rk) 04/15/2022 Infusion Hematology and Oncology 04/15/2022 Office Visit Hematology and Jazzy Armendariz R D Oncology [facility] CESAR HEMATOLOGY AND ONCOLOGY [place], [place] 0[address] (Wo rk) 09/05/2022 Scheduled View Only Obstetrics and NurseJulian II, switch engineer 09/05/2022 Office Visit Obstetrics and Shazia Whitley APRN Gynecology [facility] UROGYNECOLOGY [place], [place] [address] (Wo rk) documented as of [...] MGR SCAN EXT ORDR/RSLT Lactate Dehydrogenase (10/10/2018) P athologist Signature LDH 502 Specimen (Source) Anatomical Location Collection Method / Collectio n Time Received Time / Laterality Volume Blood specimen 10/10/2018 (specimen) Nilam So APRN CHEMISTRY ORDERABLES Comprehensive metabolic panel (non-fasting) (10/10/2018) P athologist Signature BUN 24 Creatinine 0.90 Specimen (Source) Anatomical Location Collection Method / Collectio n Time Received Time / Laterality Volume Blood specimen 10/10/2018 (specimen) Nilam So PLANNING AIDE CHEMISTRY ORDERABLES CBC (with Diff) (10/10/2018) P athologist Signature Hemoglobin 13.9 Hematocrit 45.5 Platelets 170 Neutr Abs (ANC) 3.70 Specimen (Source) Anatomical Location Collection Method / Collectio n Time Received Time / Laterality Volume Blood specimen 10/10/2018 (specimen) Nilam So PLANNING AIDE HEMATOLOGY ORDERABLES documented in this encounter Visit Diagnoses Diagnosis CLL (chronic lymphocytic leukemia) Chronic lymphoid leukemia, without menti on of having achieved remission Colon cancer metastasized to liver Malignant neoplasm of colon, unspecified site documented in this encounter Care Teams Greenhouse Manager Relationship Specialty Start Date End Date Mook Coffey DO PCP - General Family Medicine 02/16/[address] [place] [phone] documented as of this encounter
--- OUTSIDE RECORDS SUMMARY | 2022-03-25 01:27 | XMS_ITS | Encounter Summary ---
:1950 Author Organization [facility] [place] [address] Care Team Providers Name Role Phone Berkley Madrigal MD Primary Care Provider Reason for Referral Consultation (Routine) - Closed Specialty Diagnoses / Procedures Referred By Contact Refer red To Contact Obstetrics and Diagnoses Pelvic organ prolapse quantification stage 3 cystocele Carol Wahl [facility] Switcher 5l Gynecology MD Maria Teresa [facility] [place] UR[place] DEPT. [address] [place] [address] Referral ID Status Reason Start Date Expiration Date Visits V isits Requested Authorized [id number] Closed Consult, 09/19/2017 09/19/2018 1 1 Test & Treat Reason for Visit Reason Comments Establish Care Consultation (Routine) - Closed Specialty Diagnoses / Procedures Referred By Contact Refer red To Contact Urology Diagnoses STAGE 3 CYSTOCELE WITH URINARY INCONTINENCE AND RETENTION Berkley Madrigal MD Gormley, Elizabeth Ann, STE D MD [address] [facility] [place] [address] [place] [address] Phone: Fax: Referral ID Status Reason Start Date Expiration Date Visits Requ ested Visits Authorized [id number] Closed 07/18/2017 07/18/2018 1 1 Encounter Details Date Type Department Care Team Description 09/19/2017 Office Visit Urology at [facility] Carol Wahl Pelvic organ prolapse quanti fication stage 3 cystocele; [facility] MD Maria Teresa Other symptoms and signs involving the g enitourinary system; Drive [facility] [place] [address] UROLOGY DEPT. [phone] [place], [place] [address] Social History Tobacco Use Types [...] to a ? Modified MMK performed in [place], [place] 38 years ago. She reports about [...] stroke Review of Systems: General Health: good FITTER MACHINIST - No headaches or loss of consciousness. [...] Fischer MD [facility] [place] [address] Oncology Alyssa Joseph, [address] [place] [address] 03/25/2022 Infusion Hematology and Oncology 03/31/2022 Office Visit Hematology and Alan Livingston M D [facility] HEMATOLOGY/[place] [address] Oncology Nilam So APRN [facility] HEMATOLOGY/[place] [address] 04/15/2022 Office Visit Hematology and Ángel Fischer Oncology [facility] ONCOLOGY [place], [place] 0[address] (Wo rk) 04/15/2022 Infusion Hematology and Oncology 04/15/2022 Office Visit Hematology and Jazzy Armendariz R D Oncology [facility] CESAR HEMATOLOGY AND ONCOLOGY [place], [place] 0[address] (Wo rk) 09/05/2022 Scheduled View Only Obstetrics and Nurse, Julian COLEMAN, stock repairer 09/05/2022 Office Visit Obstetrics and Shazia Whitley APRN Gynecology [facility] UROGYNECOLOGY [place], [place] [address] (Wo rk) Scheduled Referrals Name [...] Clean Catch Urine (09/19/2017 2:48 PM EDT) Patholo gist Method Time Signature Urine Culture 1,000-9,000 [facility] cfu/ml [facility] probable LABORATORY contaminant (A) Specimen (Source) Anatomical Collection Method Collection Time Re ceived Time Location / / Volume Laterality Urine specimen 09/19/2017 2:48 09/19/2017 5:14 obtained by clean PM EDT PM EDT catch procedure (specimen) Resulting Agency Comment Spec In Lab Carol Wahl MD MICROBIOLOGY - GENERAL ORDER MELYSSA Performing Organization Address City/State/ZIP [place] [address] (ABNORMAL) _Urinalysis with microscopic (09/19/2017 2:48 PM EDT) [facility] Method Time Signature Glucose UA Negative Negative [facility] mg/dL [facility] Protein UA Negative Negative [facility] mg/dL [facility] Bilirubin UA Negative Negative [facility] mg/dL [facility] Comment: Clinical correlation required for positi ve Urine Bilirubin results as false positive may occur with some drugs and d rug related products. If a false positive is suspected a serum total bili reyes should be considered if clinically indicated. Urobilinogen UA Normal Normal mg/dL [facility] pH UA 6.0 5.0 - 8.0 [facility] Blood UA Large (A) Negative mg/dL [facility] Ketones UA Negative Negative mg/dL [facility] Nitrite UA Negative Negative [facility] Leukocytes UA Negative Negative [facility] LABORATORY Appearance UA Clear Clear [facility] LABOR[facility] Spec [place] UA 1.009 1.002 - 1.030 [facility] Color UA Yellow Yellow [facility] RBC UA 10 (H) 0 - 4 /HPF [facility] WBC UA <1 0 - 5 /HPF [facility] Squam Epith UA <1 <=4 /HPF [facility] Specimen Anatomical Collection Method Collection Time Receive d Time (Source) Location / / Volume Laterality Urine specimen 09/19/2017 2:48 PM 018 4:53 (specimen) EDT PM EDT Resulting Agency Comment Spec In Lab Carol Wahl MD URINE ORDERABLES Performing Organization Address City/State/ZIP [place] [address] documented in this encounter Visit Diagnoses Diagnosis Pelvic organ prolapse quantification sta ge 3 cystocele Other symptoms and signs involving the g enitourinary system Mixed incontinence Mixed incontinence urge and stress (male )(female) Colon cancer metastasized to liver Malignant neoplasm of colon, unspecified site documented in this encounter Care Teams Health Management Consultant Relationship Specialty Start Date End Date Berkley Madrigal MD PCP - General 04/13/10 02/15/18 AYLEEN D [address] [place] [address] documented as of this encounter
--- OUTSIDE RECORDS SUMMARY | 2022-03-25 01:27 | XMS_ITS | Encounter Summary ---
:1950 Author Organization [facility] Address [address] [place] [address] Care Team Providers Name Role Phone Mook Coffey DO Primary Care Provider Reason for Visit Reason Comments Follow-up Skin Check Encounter Details Date Type Department Care Team Description 10/05/2018 Office Visit Dermatology at [facility], History of SCC (squamous cell carcinoma) of skin; Radha ALEGRIA Seborrheic keratosis 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 [address] Oncology Nilam So [facility] HEMATOLOGY/[place] [address] 04/15/2022 Office Visit Hematology and Ángel Fischer Oncology [facility] ONCOLOGY [place], [place] [address] (Wo rk) 04/15/2022 Infusion Hematology and Oncology 04/15/2022 Office Visit Hematology and Jazzy Armendariz R D Oncology [facility] CESAR HEMATOLOGY AND ONCOLOGY [place], [place] [address] (Wo rk) 09/05/2022 Scheduled View Only Obstetrics and Nurse, Oboneal II, ship runner 09/05/2022 Office Visit Obstetrics and Shazia Whitley APRN Gynecology [facility] UROGYNECOLOGY [place], [place] [address] (Wo rk) documented as of this encounter Visit Diagnoses Diagnosis History of SCC (squamous cell carcinoma) of skin Personal history of other malignant neop lasm of skin Seborrheic keratosis Other seborrheic keratosis Colon cancer metastasized to liver Malignant neoplasm of colon, unspecified site documented in this encounter Care Teams Shaving Machine Operator Relationship Specialty Start Date End Date Mook Coffey DO PCP - General Family Medicine 02/16/[address] [place] [phone] documented as of this encounter
--- OUTSIDE RECORDS SUMMARY | 2022-03-25 01:27 | XMS_ITS | Encounter Summary ---
:1950 Author Organization [facility] [place] [address] Care Team Providers Name Role Phone Mook Coffey DO Primary Care Provider Encounter Details Date Type Department Care Team Description 03/14/2018 Office Visit Hematology/Oncology Bernardo Salmon MD [facility] DR HEMATOLOGY/[place] [address] [facility] Nilam So APRN [facility] DR HEMATOLOGY/[place] [address] [place] [phone] Social History Tobacco Use Types Packs/Day [...] in this encounter Progress Notes Nilam So, STAFF SONOGRAPHER - 03/14/2018 9:30 AM EDT Subjective: Patient [...] MD [facility] [place] [address] Oncology Alyssa Joseph APRN [address] [place] [address] [place] [address] 03/25/2022 Infusion Hematology and Oncology 03/31/2022 Office Visit Hematology and Alan Livingston M D [facility] HEMATOLOGY/[place] [address] Oncology Nilam So APRN [facility] HEMATOLOGY/[place] [address] 04/15/2022 Office Visit Hematology and Ángel Fischer Oncology [facility] ONCOLOGY [place], [place] 0375 (Wo rk) 04/15/2022 Infusion Hematology and Oncology 04/15/2022 Office Visit Hematology and Jazzy Armendariz R D Oncology [facility] CESAR HEMATOLOGY AND ONCOLOGY [place], [place] 0[address] (Wo rk) 09/05/2022 Scheduled View Only Obstetrics and Nurse, Julian COLEMAN, cooking casing and drying supervisor 09/05/2022 Office Visit Obstetrics and Shazia Whitley APRN Gynecology [facility] UROGYNECOLOGY [place] 0[address] (Wo rk) documented as of this [...] in this encounter Results Lactate Dehydrogenase (03/09/2018) athologist Signature LDH 543 Specimen (Source) Anatomical Location Collection Method / Collectio n Time Received Time / Laterality Volume Blood specimen 03/09/2018 (specimen) Nilam So APRN CHEMISTRY ORDERABLES Comprehensive metabolic panel (non-fasting) (03/09/2018) athologist Signature BUN 14 Creatinine 0.80 Specimen (Source) Anatomical Location Collection Method / Collectio n Time Received Time / Laterality Volume Blood specimen 03/09/2018 (specimen) Nilam So APRN CHEMISTRY ORDERABLES CBC (with Diff) (03/09/2018) athologist Signature WBC 123.5 Hemoglobin 13.4 Hematocrit [...] site documented in this encounter Care Teams Parts Counter Clerk Relationship Specialty Start Date End Date Mook Coffey DO PCP - General Family Medicine 02/16/[address] [place] [address] [phone] documented as of this encounter
--- OUTSIDE RECORDS SUMMARY | 2022-03-25 01:27 | XMS_ITS | Encounter Summary ---
:1950 Author Organization [facility] [place] [address] Care Team Providers Name Role Phone Berkley Madrigal MD Primary Care Provider Reason for Referral Diagnostic Test (Routine) - Closed Specialty Diagnoses / Procedures Referred By Contact Refer red To Contact Radiology Diagnoses Overflow incontinence Carol Wahl [facility] Rad Ct Scan Procedures CT Urogram [facility] [place] [address] [place] [address] Referral ID Status Reason Start Date Expiration Date Visits V isits Requested Authorized [id number] Closed Specialty 11/16/2017 11/16/2018 1 1 Service Requested Encounter Details Date Type Department Care Team Description 11/16/2017 Orders Only Urology at [place] Carol Wahl Microscopic hematuria; [facility] MD Maria Teresa [place] [address] UROLOGY DEPT. [phone] [place], [place] 0375 (Wo rk) Social History Tobacco [...] Ángel Fischer MD [facility] [place] [address] Oncology Alyssa Joseph, ADENIKE [address] [place] [address] [place] [address] 03/25/2022 Infusion Hematology and Oncology 03/31/2022 Office Visit Hematology and Alan Livingston M D [facility] HEMATOLOGY/[place] [address] Oncology Nilam So [facility] HEMATOLOGY/[place] [address] 04/15/2022 Office Visit Hematology and Ángel Fischer Oncology [facility] ONCOLOGY [place], [place] 0375 (Wo rk) 04/15/2022 Infusion Hematology and Oncology 04/15/2022 Office Visit Hematology and Jazzy Armendariz R D [facility] CESAR HEMATOLOGY AND ONCOLOGY [place], [place] 0[address] (Wo rk) 09/05/2022 Scheduled View Only Obstetrics and NurseJulian II, county attorney 09/05/2022 Office Visit Obstetrics and Shazia Whitley COMPENSATION AND BENEFITS ANALYST Gynecology [facility] UROGYNECOLOGY [place], [place] [address] (Wo rk) documented as of this encounter Results CT [...] side is too small to characterize. Carol SHETH CT ORDERABLES (ABNORMAL) Creatinine (11/28/2017 1:24 PM EDT) P athologist Signature Creatinine 0.98 0.70 - [facility] 1.20 mg/dL [facility] Estimated GFR 59 (L) >=60 [facility] mL/min/1.7 [facility] 3 m?? [facility] Comment: The eGFR was calculated using the CKD-EP I equation. As with all creatinine based estimates of kidney function, eGFR values calculated with the CKD-EPI equation are not accurate in patients wi th acute kidney failure, extremes of body mass or the acutely ill. [email or web address]/Tripbirdsnkdep http://TraveDoc/TripbirdsMCnkf eGFR 69 >=60 mL/min/1.73 m?? [facility] Comment: The eGFR was calculated using the CKD-EP I equation. As with all creatinine based estimates of kidney function, eGFR values calculated with the CKD-EPI equation are not accurate in patients wi th acute kidney failure, extremes of body mass or the acutely ill. [email or web address]/Tripbirdsnkdep [email or web address]/DHMCnkf Specimen Anatomical Collection Method Collection Time Receive d Time (Source) Location / / Volume Laterality Blood specimen 11/28/2017 1:24 PM 018 1:49 (specimen) EDT PM EDT Resulting Agency Comment Spec In Lab Carol Wahl MD CHEMISTRY ORDERABLES Performing Organization Address City/State/[place] [address] documented in this encounter Visit Diagnoses Diagnosis Microscopic hematuria Overflow incontinence Overflow incontinence Colon cancer metastasized to liver Malignant neoplasm of colon, unspecified site documented in this encounter Care Teams Magnetic Testing Technician Relationship Specialty Start Date End Date Berkley Madrigal MD PCP - General 04/13/10 02/15/18 AYLEEN D [address] [place] [address] documented as of this encounter
--- OUTSIDE RECORDS SUMMARY | 2022-03-25 01:27 | XMS_ITS | Encounter Summary ---
:1950 Author Organization [facility] [place] [address] Care Team Providers Name Role Phone Mook Coffey DO Primary Care Provider Reason for Visit Reason Comments Follow-up pessalyson Encounter Details Date Type Department Care Team Description 04/01/2019 Office Visit Obstetrics and Chika Crandall Pessary ma intenance Gynecology at [facility] STEAM TRAP WORKER [facility] [place] [address] [place] [address] [phone] (Wo rk) Social History Tobacco Use Types [...] in this encounter Progress Notes Chika Crandall, STEAM TRAP WORKER - 04/01/2019 2:00 PM EST Patient Active [...] Fischer MD [facility] [place] [address] Oncology Alyssa Joseph APRN [address] [place] [address] DR [place] [address] 03/25/2022 Infusion Hematology and Oncology 03/31/2022 Office Visit Hematology and Alan Livingston M D [facility] HEMATOLOGY/[place] [address] Oncology Nilam So APRN [facility] HEMATOLOGY/[place] [address] 04/15/2022 Office Visit Hematology Ángel Kimbrough Oncology MD [facility] ONCOLOGY [place], [place] 0[address] (Wo rk) 04/15/2022 Infusion Hematology and Oncology 04/15/2022 Office Visit Hematology and Jazzy Armendariz R D [facility] CESAR HEMATOLOGY AND ONCOLOGY [place], [place] 0375 (Wo rk) 09/05/2022 Scheduled View Only Obstetrics and Nurse, Julian COLEMAN, records specialist 09/05/2022 Office Visit Obstetrics and Shazia Whitley APRN Gynecology [facility] UROGYNECOLOGY [place], [place] [address] (Wo rk) documented as of this encounter Visit Diagnoses Diagnosis Pessary maintenance Fitting and adjustment of other device Colon cancer metastasized to liver Malignant neoplasm of colon, unspecified site documented in this encounter Care Teams Solar Pv Installer Relationship Specialty Start Date End Date Mook Coffey DO PCP - General Family Medicine 02/16/[address] [place] [phone] documented as of this encounter
--- OUTSIDE RECORDS SUMMARY | 2022-03-25 01:27 | XMS_ITS | Encounter Summary ---
:1950 Author Organization [facility] [place] [address] Care Team Providers Name Role Phone Berkley Madrigal MD Primary Care Provider Encounter Details Date Type Department Care Team Description 11/14/2017 Procedure visit Urology at [facility] Urinary incontinence, overfl ow; [place] [phone] Social History Tobacco Use Types Packs/Day [...] above listed procedure and interpreted the findings. Gravedigger imaging was saved. V/ALPP: The patient was [...] Ángel Fischer MD [facility] [address] Oncology Alyssa Joseph[address] [place] [address] 03/25/2022 Infusion Hematology and Oncology 03/31/2022 Office Visit Hematology and Alan Livingston M D [facility] HEMATOLOGY/[place] [address] Oncology Nilam So PRIOR AUTHORIZATION TECHNICIAN [facility] HEMATOLOGY/[place] [address] 04/15/2022 Office Visit Hematology Ángel Kimbrough Oncology MD [facility] ONCOLOGY [place], [place] 0375 (Wo rk) 04/15/2022 Infusion Hematology and Oncology 04/15/2022 Office Visit Hematology and Jazzy Armendariz R D Oncology [facility] CESAR HEMATOLOGY AND ONCOLOGY [place], [place] 0[address] (Wo rk) 09/05/2022 Scheduled View Only Obstetrics and Nurse, Obgymichelle II, branch lending officer 09/05/2022 Office Visit Obstetrics and Shazia Whitley APRN Gynecology [facility] UROGYNECOLOGY [place], [place] 0375 (Wo rk) documented as of this encounter Visit Diagnoses Diagnosis Urinary incontinence, overflow Overflow incontinence Mixed incontinence Mixed incontinence urge and stress (male )(female) Colon cancer metastasized to liver Malignant neoplasm of colon, unspecified site documented in this encounter Care Teams Site Acquisition Manager Relationship Specialty Start Date End Date Berkley Madrigal MD PCP - General 04/13/10 02/15/18 AYLEEN Bray [address] [place] [address] documented as of this encounter
--- OUTSIDE RECORDS SUMMARY | 2022-03-25 01:27 | XMS_ITS | Encounter Summary ---
:1950 Author Organization [place] [address] Care Team Providers Name Role Phone Berkley Madrigal MD Primary Care Provider Encounter Details Date Type Department Care Team Description 12/06/2017 Office Visit Hematology/Oncology Nilam So, Chron ic lymphocytic at [facility] CHIEF DEPUTY SHERIFF leukemia [address] [place] [phone] HEMATOLOGY/ONCOLOG [phone] Y DEPT. [place], [place] [address] Social History Tobacco Use Types [...] in this encounter Progress Notes Nilam oS, CHIEF DEPUTY SHERIFF - 12/06/2017 11:30 AM EDT Subjective: Patient [...] Hematology and Ángel Fischer MD [facility] [place] [address] Oncology Alyssa Joseph APRN [address] [place] [address] [place] [address] 03/25/2022 Infusion Hematology and Oncology 03/31/2022 Office Visit Hematology and Alan Livingston M D [facility] HEMATOLOGY/[place] [address] Oncology Nilam So APRN [facility] HEMATOLOGY/[place] [address] 04/15/2022 Office Visit Hematology Ángel Kimbrough Oncology MD [facility] ONCOLOGY [place], [place] 0375 (Wo rk) 04/15/2022 Infusion Hematology and Oncology 04/15/2022 Office Visit Hematology and Jazzy Armendariz R D Oncology [facility] [address] HEMATOLOGY AND ONCOLOGY [place] [address] (Wo rk) 09/05/2022 Scheduled View Only Obstetrics and Nurse, Julian COLEMAN RNpressfitter 09/05/2022 Office Visit Obstetrics and Shazia Whitley APRN Gynecology [facility] UROGYNECOLOGY [place], [place] 0[address] (Wo rk) documented as of [...] site documented in this encounter Care Teams Tobacco Shaker Relationship Specialty Start Date End Date Berkley Madrigal MD PCP - General 04/13/10 02/15/18 AYLEEN Katarina [address] [place] [address] documented as of this encounter
--- OUTSIDE RECORDS SUMMARY | 2022-03-25 01:27 | XMS_ITS | Encounter Summary ---
:1950 Author Organization [facility] [place] [address] Care Team Providers Name Role Phone Berkley Madrigal MD Primary Care Provider Encounter Details Date Type Department Care Team Description 11/28/2017 Laboratory Appointment Lab 3L Zaria [place] [phone] Social History Tobacco Use Types Packs/Day Years [...] Fischer MD [facility] [address] Oncology Alyssa Joseph[address] [place] [address] 03/25/2022 Infusion Hematology and Oncology 03/31/2022 Office Visit Hematology and Alan Livingston M D [facility] DR HEMATOLOGY/[place] [address] Oncology Nilam So BARK SKINNER [facility] HEMATOLOGY/[place] [address] 04/15/2022 Office Visit Hematology Ángel Kimbrough Oncology [facility] ONCOLOGY [place], [place] 0[address] (Wo rk) 04/15/2022 Infusion Hematology and Oncology 04/15/2022 Office Visit Hematology and Jazzy Armendariz R D Oncology [facility] DR[address] HEMATOLOGY AND ONCOLOGY [place], [place] 25[address] (Wo rk) 09/05/2022 Scheduled View Only Obstetrics and Nurse, Julian COLEMAN RNsenior sales compensation analyst 09/05/2022 Office Visit Obstetrics and Shazia Whitley APRN Gynecology [facility] UROGYNECOLOGY [place], [place] [address] (Wo rk) documented as of this encounter Procedures Procedure Name Priority Date/Time Associated Diagnosis Comme nts CREATININE Routine 11/28/2017 1:24 PM Overflow incontinence Results for this EDT procedure are i n the results section. documented in this encounter Results (ABNORMAL) Creatinine (11/28/2017 1:24 PM EDT) athologist Signature Creatinine 0.98 0.70 - [facility] 1.20 mg/dL [facility] Estimated GFR 59 (L) >=60 [facility] mL/min/1.7 [facility] 3 ? [facility]ITAL [facility] Comment: The eGFR was calculated using the CKD-EP I equation. As with all creatinine based estimates of kidney function, eGFR values calculated with the CKD-EPI equation are not accurate in patients wi th acute kidney failure, extremes of body mass or the acutely ill. http://BoxFox/Penneonkdep http://BoxFox/[facility] NORMANnkf eGFR 69 >=60 mL/min/1.73 m?? [facility] Comment: The eGFR was calculated using the CKD-EP I equation. As with all creatinine based estimates of kidney function, eGFR values calculated with the CKD-EPI equation are not accurate in patients wi th acute kidney failure, extremes of body mass or the acutely ill. http://BoxFox/DHnkdep [email or web address]/[facility] NORMANnkf Specimen Anatomical Collection Method Collection Time Receive d Time (Source) Location / / Volume Laterality Blood specimen 11/28/2017 1:24 PM 018 1:49 (specimen) EDT PM EDT Resulting Agency Comment Spec In Lab Carol Wahl MD CHEMISTRY ORDERABLES Performing Organization Address City/State/[place] [address] documented in this encounter Visit Diagnoses Diagnosis Overflow incontinence Colon cancer metastasized to liver Malignant neoplasm of colon, unspecified site documented in this encounter Care Teams Chicken Cleaner Relationship Specialty Start Date End Date Berkley Madrigal MD PCP - General 04/13/10 02/15/18 AYLEEN D [address] [place] [address] documented as of this encounter
--- OUTSIDE RECORDS SUMMARY | 2022-03-25 01:27 | XMS_ITS | Encounter Summary ---
:1950 Author Organization [facility] Address [facility] [place] [address] Care Team Providers Name Role Phone Mook Coffey DO Primary Care Provider Reason for Visit Reason Onset Date Comments Abnormal Labs 10/10/2018 WBC Encounter Details Date Type Department Care Team Description 10/10/2018 [facility] Rolando Isaac RN [address] [place] [address] Social History Tobacco Use Types [...] PM EDT Received call from Noni at [facility] Lab reporting Carol Keller WBC is 123.3 today. Reviewed with Nilam So APRN. documented in this encounter Plan of Treatment Upcoming Encounters Date Type Specialty Care Team Description 03/25/2022 Office Visit Hematology and Ángel Fischer MD [facility] [place] [address] Oncology Alyssa Joseph APRN [address] [place] [address] [place] [address] 03/25/2022 Infusion Hematology and Oncology 03/31/2022 Office Visit Hematology and Alan Livingston M D [facility] DR HEMATOLOGY/[place] [address] Oncology Nilam So APRN [facility] HEMATOLOGY/[place] [address] 04/15/2022 Office Visit Hematology and Ángel Fischer Oncology [facility] ONCOLOGY [place], [place] 0375 (Wo rk) 04/15/2022 Infusion Hematology and Oncology 04/15/2022 Office Visit Hematology and Jazzy Armendariz R D Oncology [facility] DR[address] HEMATOLOGY AND ONCOLOGY [place], [place] 0[address] (Wo rk) 09/05/2022 Scheduled View Only Obstetrics and NurseJulian II, hand tire trimmer 09/05/2022 Office Visit Obstetrics and Shazia Whitley APRN Gynecology [facility] UROGYNECOLOGY [place], [place] 0[address] (Wo rk) documented as of this encounter Procedures Procedure Name Priority Date/Time Associated Diagnosis Comme nts CBC (WITH DIFF) Routine 10/10/2018 Results for this procedure are in the resu lts section. documented in this encounter Results CBC (with Diff) (10/10/2018) P athologist Signature WBC 123.3 Comment: from [facility] Specimen (Source) Anatomical Location Collection Method / Collectio n Time Received Time / Laterality Volume Blood specimen 10/10/2018 (specimen) Nilam So APRN HEMATOLOGY ORDERABLES documented in this encounter Visit Diagnoses Not on filedocumented in this encounter Care Teams Hoop Punch And Coiler Operator Helper Relationship Specialty Start Date End Date Mook Coffey DO PCP - General Family Medicine 02/16/[address] [place] [address] [phone] documented as of this encounter
--- OUTSIDE RECORDS SUMMARY | 2022-03-25 01:27 | XMS_ITS | Encounter Summary ---
:1950 Author Organization [facility] [place] [address] Care Team Providers Name Role Phone Berkley Madrigal MD Primary Care Provider Reason for Visit Reason Comments Vaginal Prolapse Establish Care Uterine Prolapse Encounter Details Date Type Department Care Team Description 12/05/2017 Office Visit Obstetrics and Nakul Prater, Prolapse of vaginal Gynecology at [facility] MD villaseñor (Primary Dx) [facility] [place], [place] [phone] [phone] Social History Tobacco Use Types Packs/Day Years [...] Female Pelvic Medicine and Reconstructive Surgery @ [facility] Patient Name: Carol Keller Patient Primary Care [...] to a ? Modified MMK performed in [place], [place] 38 years ago. A year ago [...] 16.33) performed by Pavan Coffey MD at [facility] MAIN OR ??? PRO VITRECTOMY PARS PLANA REMOVE INT MEMB RETINA Left 01/05/2017 VITRECTOMY, W/ MEMBRANE STRIPPING, INTRAOCULAR TAMPONADE (WRVU 16.33) performed by Venkata Page MD at [facility] MAIN OR ??? RETINAL DETACHMENT SURGERY [...] test (empty supine): negative External Genitalia: Vulva, Tse Bonito's and Bartholin glands normal, urethra without tenderness [...] Fischer MD [facility] [place] [address] Oncology Alyssa Joseph, [address] [place] [address] 03/25/2022 Infusion Hematology and Oncology 03/31/2022 Office Visit Hematology and Alan Livingston M D [facility] HEMATOLOGY/[place] [address] Oncology Nilam So SAFETY AND SKILL BASED PAY [facility] [address] 04/15/2022 Office Visit Hematology and Ángel Fischer Oncology [facility] ONCOLOGY [place], [place] [address] (Wo rk) 04/15/2022 Infusion Hematology and Oncology 04/15/2022 Office Visit Hematology and Jazzy Armendariz R D Oncology [facility] CESAR HEMATOLOGY AND ONCOLOGY [place], [place] [address] (Wo rk) 09/05/2022 Scheduled View Only Obstetrics and NurseJulian II, site acquisition manager 09/05/2022 Office Visit Obstetrics and Shazia Whitley APRN Gynecology [facility] UROGYNECOLOGY [place], [place] [address] (Wo rk) Scheduled Orders Name [...] - Primary Unspecified prolapse of vaginal alberts Colon cancer metastasized to liver Malignant neoplasm of colon, unspecified site documented in this encounter Care Teams Healthcare Receptionist Relationship Specialty Start Date End Date Berkley Madrigal MD PCP - General 04/13/10 02/15/18 AYLEEN Katarina [address] [place] [address] documented as of this encounter
--- OUTSIDE RECORDS SUMMARY | 2022-03-25 01:27 | XMS_ITS | Encounter Summary ---
:1950 Author Organization [facility] [place] [address] Care Team Providers Name Role Phone Berkley Madrigal MD Primary Care Provider Reason for Referral Surgical (Routine) - Closed Specialty Diagnoses / Procedures Referred By Contact Refer red To Contact Diagnoses Stress incontinence, female Carol Wahl MD Procedures Collagen Endoscopic Injection [facility] [place] [address] Referral ID Status Reason Start Date Expiration Date Visits V isits Requested Authorized [id number] Closed Consult, 01/23/2018 01/23/2019 1 1 Test & Treat Reason for Visit Surgical (Routine) - Closed Specialty Diagnoses / Procedures Referred By Contact Refer red To Contact Diagnoses Stress incontinence, female Carol Wahl MD Procedures Collagen Endoscopic Injection [facility] [place] [address] Referral ID Status Reason Start Date Expiration Date Visits V isits Requested Authorized [id number] Closed Consult, 01/23/2018 01/23/2019 1 1 Test & Treat Encounter Details Date Type Department Care Team Description 01/23/2018 Office Visit Urology at [facility] Carol Wahl Stress incontinence, female; [facility] MD Maria Teresa Urethral sphincter deficiency, intrinsic (ISD); Drive [facility] [place] [address] UROLOGY DEPT. [phone] ALIYA [place] 0375 (Wo rk) Social History [...] to a ? Modified MMK performed in [place], [place] 38 years ago. She reports about [...] stroke Review of Systems: General Health: good STEEL RULE DIE MAKER - No headaches or loss of consciousness. [...] and Ángel Fischer MD [facility] [place] [address] Oncology Alyssa Joseph, [address] [place] [address] 03/25/2022 Infusion Hematology and Oncology 03/31/2022 Office Visit Hematology and Alan Livingston M D [facility] HEMATOLOGY/[place] [address] Oncology Nilam So APRN [facility] HEMATOLOGY/[place] [address] 04/15/2022 Office Visit Hematology and Ángel Fischer Oncology [facility] ONCOLOGY [place], [place] 0[address] (Wo rk) 04/15/2022 Infusion Hematology and Oncology 04/15/2022 Office Visit Hematology and Jazzy Armendariz R D Oncology [facility] CESAR HEMATOLOGY AND ONCOLOGY [place], [place] 0[address] (Wo rk) 09/05/2022 Scheduled View Only Obstetrics and Nurse, Julian COLEMAN, in home sales consultant 09/05/2022 Office Visit Obstetrics and Shazia Whitley BALANCE WHEEL FACER Gynecology [facility] UROGYNECOLOGY [place], [place] [address] (Wo rk) documented as of [...] Clean Catch Urine (01/23/2018 9:37 AM EDT) [facility] Method Time Signature Urine Culture Greater than 100,000 cfu/ml mixed mucosal paola MADIHA Note: Culture [...] City/State/ZIP Code Phon e Number [place] [id number] (ABNORMAL) _Urinalysis with microscopic (01/23/2018 9:37 AM EDT) [facility] Method Time Signature Glucose UA Negative Negative [facility] mg/dL [facility] LABORATORY Protein UA 30 (A) Negative [facility] mg/dL [facility] LABORATORY Bilirubin UA Negative Negative [facility] mg/dL [facility] LABORATORY Comment: Clinical correlation required for positi ve Urine Bilirubin results as false positive may occur with some drugs and d rug related products. If a false positive is suspected a serum total bili reyes should be considered if clinically indicated. Urobilinogen UA Normal Normal mg/dL [facility] pH UA 5.0 5.0 - 8.0 [facility] LABORATORY Blood UA Large (A) Negative mg/dL [facility] Ketones UA Negative Negative mg/dL [facility] Nitrite UA Negative Negative [facility] Leukocytes UA Large (A) Negative [facility] LABORATORY Appearance UA Cloudy (A) Clear [facility] Spec [place] UA 1.019 1.002 - 1.030 [facility] Color UA Yellow Yellow [facility]OR[facility]ORY RBC UA 32 (H) 0 - 4 /HPF [facility] WBC UA >182 (H) 0 - 5 /HPF [facility] Bacteria UA Occasional (A) None /HPF [facility] Squam Epith UA 4 <=4 /HPF [facility] Trans Epith UA <1 <=1 /HPF [facility] Hyaline Cast UA 5 (H) 0 - 2 /LPF [facility] Gran Cast UA 2 (H) <=0 /LPF [facility] LABORATORY Specimen Anatomical Collection Method Collection Time Receive d Time (Source) Location / / Volume Laterality Urine specimen 01/23/2018 9:37 AM 018 (specimen) EDT 11:19 AM EDT Resulting Agency Comment Spec In Lab Carol Wahl MD URINE ORDERABLES Performing Organization Address City/State/[place] [address] documented in this encounter Visit Diagnoses Diagnosis Stress incontinence, female Female stress incontinence Urethral sphincter deficiency, intrinsic (ISD) Intrinsic (urethral) sphincter deficienc y (ISD) Mixed incontinence Mixed incontinence urge and stress (male )(female) Colon cancer metastasized to liver Malignant neoplasm of colon, unspecified site documented in this encounter Care Teams Clerical Adviser Relationship Specialty Start Date End Date Berkley Madrigal MD PCP - General 04/13/10 02/15/18 AYLEEN Bray [address] [place] [address] documented as of this encounter
--- OUTSIDE RECORDS SUMMARY | 2022-03-25 01:27 | XMS_ITS | Encounter Summary ---
:1950 Author Organization [facility] Address [place] [address] Care Team Providers Name Role Phone Mook Coffey DO Primary Care Provider Reason for Visit Reason Comments Macular Hole Encounter Details Date Type Department Care Team Description 07/13/2018 Office Visit Ophthalmology at [facility] C Venkata Page, 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 [s/p PPV, ERM and ILM peel, SF6 01/05/17 with NNB]; One [facility] Macular hole, right eye [s/p PPV, MP, ga s [July 2016] with CBC]; Drive [facility] 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; [place] [address] [place] [address] Macular hole, right eye [phone] OPHTHALMOLOGY DEPT [place], [place] [address] Social History Tobacco Use Types [...] 03/25/2022 Office Visit Hematology Ángel Kimbrough MD [facility] [place] [address] Oncology Alyssa Joseph [address] [address] 03/25/2022 Infusion Hematology and Oncology 03/31/2022 Office Visit Hematology and Alan Livingston M D [facility] HEMATOLOGY/[place] [address] Oncology Nilam So OVERNIGHT BABYSITTER [facility] HEMATOLOGY/[place] [address] 04/15/2022 Office Visit Ángel Hill Oncology MD [facility] ONCOLOGY [place], [place] 0[address] (Wo rk) 04/15/2022 Infusion Hematology and Oncology 04/15/2022 Office Visit Hematology and Jazzy Armendariz R D Oncology [facility] CESAR HEMATOLOGY AND ONCOLOGY [place], [place] 0[address] (Wo rk) 09/05/2022 Scheduled View Only Obstetrics and Nurse, Julian COLEMAN, retail field merchandiser 09/05/2022 Office Visit Obstetrics and Shazia Whitley APRN Gynecology [facility] UROGYNECOLOGY [place], [place] [address] (Wo rk) documented as of this encounter Procedures Procedure Name Priority Date/Time Associated Diagnosis Comme nts OCT RETINA - OU - Routine 07/13/2018 4:30 PM Full thickness Re sults for this BOTH EYES EST macular hole of left procedu re are in eye the results Macular hole, right section. eye documented in this encounter Results OCT [id number] EYES (07/13/2018 4:30 PM EST) Anatomical Region [...] site documented in this encounter Care Teams Education Site Manager Relationship Specialty Start Date End Date Mook Coffey DO PCP - General Family Medicine 02/16/[address] [place] [phone] documented as of this encounter
--- OUTSIDE RECORDS SUMMARY | 2022-03-25 01:27 | XMS_ITS | Encounter Summary ---
:1950 Author Organization [facility] Address [facility] [place] [address] Care Team Providers Name Role Phone Mook Coffey DO Primary Care Provider Encounter Details Date Type Department Care Team Description 07/13/2018 Office Visit Urology at [facility] Urinary incontinence, [facility] Katar[place] [address] Social History Tobacco Use Types Packs/Day [...] Fischer MD [facility] [place] [address] Oncology Alyssa Joseph, WINDING RACK OPERATOR [address] [place] [address] [place] [address] 03/25/2022 Infusion Hematology and Oncology 03/31/2022 Office Visit Hematology and Yara, Alan, M D [facility] HEMATOLOGY/[place] [address] Oncology Nilam So, [facility] HEMATOLOGY/[place] [address] 04/15/2022 Office Visit Hematology and Ángel Fischer Oncology [facility] ONCOLOGY [place], [place] 0[address] (Wo rk) 04/15/2022 Infusion Hematology and Oncology 04/15/2022 Office Visit Hematology and Jazzy Armendariz R D Oncology [facility] CESAR HEMATOLOGY AND ONCOLOGY [place], [place] [address] (Wo rk) 09/05/2022 Scheduled View Only Obstetrics and NurseJulian II, contractor buyer 09/05/2022 Office Visit Obstetrics and Shazia Whitley APRN Gynecology [facility] UROGYNECOLOGY [place], [place] [address] (Wo rk) documented as of this encounter Visit Diagnoses Diagnosis Urinary incontinence, overflow Overflow incontinence Colon cancer metastasized to liver Malignant neoplasm of colon, unspecified site documented in this encounter Care Teams Molecular Biology Scientist Relationship Specialty Start Date End Date Mook Coffey DO PCP - General Family Medicine 02/16/[address] [place] [phone] documented as of this encounter
--- OUTSIDE RECORDS SUMMARY | 2022-03-25 01:27 | XMS_ITS | Encounter Summary ---
:1950 Author Organization [place] [address] Care Team Providers Name Role Phone Mook Coffey DO Primary Care Provider Reason for Visit Reason Onset Date Comments Vaginal Discharge 05/07/2018 Encounter Details Date Type Department Care Team Description 05/07/2018 Telephone Obstetrics and Gynecology at [facility] Vaginal Discharge [facility] [place] [address] Social History Tobacco Use Types Packs/Day [...] of pessary. Appointment scheduled for 1300 with ADEINKE Crandall. documented in this encounter Plan of Treatment Upcoming Encounters Date Type Specialty Care Team Description 03/25/2022 Office Visit Hematology and Aaliyah, Ángel Lehman MD [facility] [place] [address] Oncology Alyssa Joseph[address] [place] [address] 03/25/2022 Infusion Hematology and Oncology 03/31/2022 Office Visit Hematology and Alan Livingston M D [facility] HEMATOLOGY/[place] [address] Oncology Nilam So, [facility] HEMATOLOGY/[place] [address] 04/15/2022 Office Visit Hematology and Ángel Fischer, Oncology [facility] ONCOLOGY [place], [place] 0375 (Wo rk) 04/15/2022 Infusion Hematology and Oncology 04/15/2022 Office Visit Hematology and Jazzy Armendariz R D Oncology [facility] CESAR HEMATOLOGY AND ONCOLOGY [place], [place] 0375 (Wo rk) 09/05/2022 Scheduled View Only Obstetrics and NurseJulian II, chronometer adjuster 09/05/2022 Office Visit Obstetrics and Shazia Whitley [facility] Gynecology [facility] UROGYNECOLOGY [place], [place] [address] (Wo rk) documented as of this encounter Visit Diagnoses Not on filedocumented in this encounter Care Teams Set Up Mechanic Crown Assembly Machine Relationship Specialty Start Date End Date Mook Coffey DO PCP - General Family Medicine 02/16/[address] [place] [phone] documented as of this encounter
--- OUTSIDE RECORDS SUMMARY | 2022-03-25 01:28 | XMS_ITS | Encounter Summary ---
:1950 Author Organization [facility] [place] [address] Care Team Providers Name Role Phone Berkley Madrigal MD Primary Care Provider Reason for Visit Reason Comments Diabetes Encounter Details Date Type Department Care Team Description 03/01/2017 Office Visit Endocrinology at [facility] Maribel Julian, Type 2 diabetes mellitus wit hout complication, unspecified terminologist insulin use status; [facility] SALES ROUTE DRIVER HELPER Impaired [place] [address] CENTER [phone] ENDOCRINOLOGY DEPT. [place], [place] [address] Social History Tobacco Use Types [...] and physical activity . 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 Enjoying time with her [facility]. Eyes: Followed closely by crossing watchman. Continues to have irritation in right eye. No recent headaches or chest pain or shortness of breath. No recent GI symptoms. Appetite is okay. Sleep pattern is usually okay. PHYSICAL EXAM: Appearance: She appears in very good health. Weight 173 pounds. Blood pressure 138/71. Eye exam deferred since she has close followup with crossing watchman. Neck: No thyromegaly or lymphadenopathy. Heart: Regular [...] office visit with 24 minutes spent counseling [id number] with patient in the management of glucose [...] Ángel Hill MD [facility] [place] [address] Oncology Alyssa Joseph APR[address] [place] [address] 03/25/2022 Infusion Hematology and Oncology 03/31/2022 Office Visit Hematology and Alan Livingston M D [facility] HEMATOLOGY/[place] [address] Oncology Nilam So APRN [facility] HEMATOLOGY/[place] [address] 04/15/2022 Office Visit Hematology Ángel Kimbrough Oncology MD [facility] ONCOLOGY [place], [place] 0[address] (Wo rk) 04/15/2022 Infusion Hematology and Oncology 04/15/2022 Office Visit Hematology and Jazzy Armendariz R D Oncology [facility] DRIVE HEMATOLOGY AND ONCOLOGY [place], [place] 0375 (Wo rk) 09/05/2022 Scheduled View Only Obstetrics and NurseJulian II, RN Gynecology 09/05/2022 Office Visit Obstetrics and Shazia Whitley APRN Gynecology [facility] UROGYNECOLOGY [place], [place] [address] (Wo rk) documented as of [...] U Albumin/Cre Ratio (03/01/2017 1:01 PM EDT) [facility] Method Time Signature Alb/Cr Ratio, Not Calculated 0 - 29 MADIHA Random mcg/mg Cr [facility] Comment: Reference Ranges: <30 mcg/mg: Normal [...] 362 U Albumin Conc, Random <3.0 mg/L MADIHA HI [facility] U Creatinine 38 mg/dL [facility] Specimen Anatomical Collection Method Collection Time Receive d Time (Source) Location / / Volume Laterality Urine specimen 03/01/2017 1:01 PM 017 1:07 (specimen) EDT PM EDT Resulting Agency Comment Spec In Lab Maribel Daniel Pja SALES ROUTE DRIVER HELPER URINE ORDERABLES Performing Organization Address City/[facility]/ZIP Code Phon e Number [address] LDL Cholesterol, Direct (03/01/2017 1:01 PM EDT) P athologist Signature LDL Chol 149 <=190 [facility] mg/dL [facility]OR[facility] Specimen Anatomical Collection Method Collection Time Receive d Time (Source) Location / / Volume Laterality Blood specimen 03/01/2017 1:01 PM 017 1:07 (specimen) EDT PM EDT Resulting Agency Comment Spec In Lab Maribel Daniel Bilmarya SALES ROUTE DRIVER HELPER CHEMISTRY ORDERABLES Performing Organization Address City/[facility]/[place] [address] (ABNORMAL) HDL/Cholesterol Profile (03/01/2017 1:01 PM EDT) Patholo gist Method Time Signature Chol, Total 240 (H) <=239 MADIHA mg/dL [facility] HDL 77 >=40 MADIHA mg/dL [facility] Chol/HDL Ratio 3.1 ratio [facility] Chol/HDL See Note MADIHA Interpretation [facility] Comment: Lipid management should be guided by a p atient? s ASCVD risk, goals and preferences. ACC/AHA Guidelines recommend high intens ity statin if clinical ASCVD or LDL greater than or equal to 190 mg/dL. http://IKOTECHurl.com/ICS-VFV-Edjribmbl Measure LDL if Total Cholesterol minus H DL Cholesterol is greater than 220 mg/dL. Adults aged 40-75 with LDL 70-189 mg/dL should have their 10 year ASCVD risk estimated with the ACC/AHA ASCVD risk es timator http://tools.acc.org/VOTWS-Pbcv-Jvksptxr r/ Statin should be discussed if risk [...] Organization Address City/State/ZIP Code Phon e Number [place] [id number] LAB[address] documented in this encounter Visit Diagnoses Diagnosis Type 2 diabetes mellitus without complic ation, unspecified terminologist insulin use status Impaired fasting glucose Colon cancer metastasized to liver Malignant neoplasm of colon, unspecified site documented in this encounter Care Teams Home Energy Consultant Supervisor Relationship Specialty Start Date End Date Berkley Madrigal MD PCP - General 04/13/10 02/15/18 AYLEEN D [address] [place] [address] documented as of this encounter
--- OUTSIDE RECORDS SUMMARY | 2022-03-25 01:28 | XMS_ITS | Encounter Summary ---
:1950 Author Organization [facility] [address] Care Team Providers Name Role Phone Berkley Madrigal MD Primary Care Provider Reason for Visit Reason Comments Post Op Encounter Details Date Type Department Care Team Description 08/04/2016 Office Visit Ophthalmology at [facility] Pavan Mancera, [facility] [place] [address] OPHTHALMOLOGY DE PT. [place], [place] [address] (Wo rk) Social History Tobacco [...] MD [facility] [place] [address] Oncology Alyssa Joseph, [address] [address] 03/25/2022 Infusion Hematology and Oncology 03/31/2022 Office Visit Hematology and Alan Livingston M D [facility] HEMATOLOGY/[place] [address] Oncology Nilam So, DIRECTOR MULTIPLE SCLEROSIS CENTER [facility] HEMATOLOGY/[place] [address] 04/15/2022 Office Visit Hematology and Ángel Fischer Oncology [facility] ONCOLOGY [place], [place] 0375 (Wo rk) 04/15/2022 Infusion Hematology and Oncology 04/15/2022 Office Visit Hematology and Jazzy Armendariz R D Oncology [facility] CESAR HEMATOLOGY AND ONCOLOGY [place], [place] 0[address] (Wo rk) 09/05/2022 Scheduled View Only Obstetrics and Nurse, Julian COLEMAN, securities lending trader 09/05/2022 Office Visit Obstetrics and Shazia Whitley APRN Gynecology [facility] UROGYNECOLOGY [place], [place] [address] (Wo rk) documented as of this encounter Visit Diagnoses Diagnosis Macular pucker, bilateral Macular puckering of retina Colon cancer metastasized to liver Malignant neoplasm of colon, unspecified site documented in this encounter Care Teams Setter Automatic Spinning Lathe Relationship Specialty Start Date End Date Berkley Madrigal MD PCP - General 04/13/10 02/15/18 AYLEEN Bray [address] [place] [address] documented as of this encounter
--- OUTSIDE RECORDS SUMMARY | 2022-03-25 01:28 | XMS_ITS | Encounter Summary ---
:1950 Author Organization [facility] [place] [address] Care Team Providers Name Role Phone Berkley Madrigal MD Primary Care Provider Reason for Visit Reason Comments Post Op Encounter Details Date Type Department Care Team Description 12/01/2016 Office Visit Ophthalmology at [facility] Venkata Swartz, Macular pucker, right eye; [facility] 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 [address] [place] [address] [place]OLOGY [place] [id number] Social History Tobacco Use Types Packs/Day Years [...] Patient of Dr. Coffey's transferring care to [place]. JADA s/p CE/IOL OD with Dr. Hart [...] 03/25/2022 Office Visit Hematology Ángel Kimbrough MD [facility] [place] [address] Oncology Alyssa Joseph[address] [place] [address] 03/25/2022 Infusion Hematology and Oncology 03/31/2022 Office Visit Hematology and Alan Livingston M D [facility] HEMATOLOGY/[place] [address] Oncology Nilam So [facility] HEMATOLOGY/[place] [address] 04/15/2022 Office Visit Ángel Hill Oncology MD [facility] ONCOLOGY [place], [place] 0[address] (Wo rk) 04/15/2022 Infusion Hematology and Oncology 04/15/2022 Office Visit Hematology and Jazzy Armendariz R D Oncology [facility] DRIVE HEMATOLOGY AND ONCOLOGY [place], [place] 0375 (Wo rk) 09/05/2022 Scheduled View Only Obstetrics and Julian Enciso II, RN Gynecology 09/05/2022 Office Visit Obstetrics and Shazia Whitley APRN Gynecology [facility] UROGYNECOLOGY [place], [place] [address] (Wo rk) documented as of [...] eye documented in this encounter Results OCT Pyircw-KS-RAUX EYES (12/01/2016 1:32 PM EDT) Anatomical Region [...] 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 Colon cancer metastasized to liver Malignant neoplasm of colon, unspecified site documented in this encounter Care Teams Airline Lounge Receptionist Relationship Specialty Start Date End Date Berkley Madrigal MD PCP - General 04/13/10 02/15/18 AYLEEN D [address] [place] [address] documented as of this encounter
--- OUTSIDE RECORDS SUMMARY | 2022-03-25 01:28 | XMS_ITS | Encounter Summary ---
:1950 Author Organization [facility] [place] [address] Care Team Providers Name Role Phone Berkley Madrigal MD Primary Care Provider Reason for Visit Reason Onset Date Comments Follow-up 07/26/2017 Encounter Details Date Type Department Care Team Description 07/26/2017 Telephone Ophthalmology at [facility] Venkaat Swartz MD Follow-up [facility] [address] [place] [address] OPHTHALMOLOGY DEPT [phone] [place], [place] [address] (Wo rk) Social History Tobacco [...] Fischer MD [facility] [place]OG[place] [address] Oncology Alyssa Joseph, HOUSEHOLD REFRIGERATOR MECHANIC [address] [place] [address] [place] [address] 03/25/2022 Infusion Hematology and Oncology 03/31/2022 Office Visit Hematology and Alan Livingston M D [facility] HEMATOLOGY/[place] [address] Oncology Nilam So APRN [facility] HEMATOLOGY/[place] [address] 04/15/2022 Office Visit Hematology and Ángel Fischer Oncology [facility] ONCOLOGY [place], [place] 0375 (Wo rk) 04/15/2022 Infusion Hematology and Oncology 04/15/2022 Office Visit Hematology and Jazzy Armendariz R D Oncology [facility] CESAR HEMATOLOGY AND ONCOLOGY [place], [place] 0375 (Wo rk) 09/05/2022 Scheduled View Only Obstetrics and Nurse, Julian COLEMAN, shipping order clerk 09/05/2022 Office Visit Obstetrics and Shazia Whitley APRN Gynecology [facility] UROGYNECOLOGY [place], [place] 0375 (Wo rk) documented as of this encounter Visit Diagnoses Not on filedocumented in this encounter Care Teams Toe Stapler Relationship Specialty Start Date End Date Berkley Madrigal MD PCP - General 04/13/10 02/15/18 AYLEEN D [address] [place], [place] [address] documented as of this encounter
--- OUTSIDE RECORDS SUMMARY | 2022-03-25 01:28 | XMS_ITS | Encounter Summary ---
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 On anticoagulant therapy [place], [place] CENTER [address] NEUROLOGY [phone] [place] 148675 Social History Tobacco Use Types Packs/Day Years [...] Disease and Stroke Program Department of Neurology [place] [id number] t: [phone] / f: [phone] Date of Appointment: 09/02/2016 Patient: Carol Keller PCP: Berkley Madrigal MD Consultation Requested By: Berkley Madrigal Md Jori D [address] [place] [address] This 66 y.o. female is evaluated in [...] with appetite or sleep, depressed mood. Modified Magoffin Scale (MRS) 0: No symptoms at all [...] [facility] [place] [address] Oncology Alyssa Joseph[address] [place] [address] 03/25/2022 Infusion Hematology and Oncology 03/31/2022 Office Visit Hematology and Alan Livingston M D [facility] HEMATOLOGY/[place] [address] Oncology Nilam So APRN [facility] HEMATOLOGY/[place] [address] 04/15/2022 Office Visit Hematology and Ángel Fischer, Oncology [facility] ONCOLOGY [place], [place] 0375 (Wo rk) 04/15/2022 Infusion Hematology and Oncology 04/15/2022 Office Visit Hematology and Jazzy Armendariz R D Oncology [facility] DRIVE HEMATOLOGY AND ONCOLOGY [place], [place] 0375 (Wo rk) 09/05/2022 Scheduled View Only Obstetrics and Nurse, Julian COLEMAN, cap maker 09/05/2022 Office Visit Obstetrics and Shazia Whitley APRN Gynecology [facility] UROGYNECOLOGY [place], [place] 0375 (Wo rk) documented as of this encounter Visit Diagnoses Diagnosis 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
--- OUTSIDE RECORDS SUMMARY | 2022-03-25 01:28 | XMS_ITS | Encounter Summary ---
:1950 Author Organization [facility] [place] [address] Care Team Providers Name Role Phone Berkley Madrigal MD Primary Care Provider Reason for Visit Reason Onset Date Comments Follow-up 01/12/2017 Encounter Details Date Type Department Care Team Description 01/12/2017 Telephone Ophthalmology at [facility] Venkata Swartz MD Follow-up [facility] [place] [address] OPHTHALMOLOGY DEPT [phone] [place], [place] [address] (Wo rk) Social History Tobacco [...] Ángel Fischer MD [facility] [place] [address] Oncology Alyssa Joseph, IMAGE PROCESSING ENGINEER [address] [place] [address] MEDICAL [place] [address] 03/25/2022 Infusion Hematology and Oncology 03/31/2022 Office Visit Hematology and Alan Livingston M D [facility] HEMATOLOGY/[place] [address] Oncology Nilam So [facility] HEMATOLOGY/[place] [address] 04/15/2022 Office Visit Hematology and Ángel Fischer, Oncology [facility] ONCOLOGY [place], [place] 0[address] (Wo rk) 04/15/2022 Infusion Hematology and Oncology 04/15/2022 Office Visit Hematology and Jazzy Armendariz R D Oncology [facility] CESAR HEMATOLOGY AND ONCOLOGY [place], [place] 0[address] (Wo rk) 09/05/2022 Scheduled View Only Obstetrics and Nurse, Julian COLEMAN, metal sander 09/05/2022 Office Visit Obstetrics and Shazia Whitley [facility] Gynecology [facility] UROGYNECOLOGY [place], [place] [address] (Wo rk) documented as of this encounter Visit Diagnoses Not on filedocumented in this encounter Care Teams Board Filler Relationship Specialty Start Date End Date Berkley Madrigal MD PCP - General 04/13/10 02/15/18 AYLEEN D [address] [place], [place] [address] documented as of this encounter
--- OUTSIDE RECORDS SUMMARY | 2022-03-25 01:28 | XMS_ITS | Encounter Summary ---
:1950 Author Organization [facility] Address [facility] [place] [address] Care Team Providers Name Role Phone Berkley Madrigal MD Primary Care Provider Reason for Visit Reason Onset Date Comments Appointment 08/04/2016 Encounter Details Date Type Department Care Team Description 08/04/2016 Telephone Ophthalmology at [facility] C Pavan Coffey, Appointment [facility] [place] [address] [facility] [phone] OPHTHALMOLOGY [address] PT. [place], [place] [address] (Wo rk) Social History Tobacco [...] MD [facility] [place] [address] Oncology Alyssa Joseph, SHELLFISH PROCESSING LABORER[address] [place] [address] 03/25/2022 Infusion Hematology and Oncology 03/31/2022 Office Visit Hematology and Alan Livingston M D [facility] HEMATOLOGY/[place] [address] Oncology Nilam So, [facility] HEMATOLOGY/[place] [address] 04/15/2022 Office Visit Hematology and Ángel Fischer Oncology [facility] ONCOLOGY [place], [place] [address] (Wo rk) 04/15/2022 Infusion Hematology and Oncology 04/15/2022 Office Visit Hematology and Jazzy Armendariz R D Oncology [facility] CESAR HEMATOLOGY AND ONCOLOGY [place], [place] [address] (Wo rk) 09/05/2022 Scheduled View Only Obstetrics and NurseJulian II international sourcing manager 09/05/2022 Office Visit Obstetrics and Shazia Whitley APRN Gynecology [facility] UROGYNECOLOGY [place], [place] [address] (Wo rk) documented as of this encounter Visit Diagnoses Not on filedocumented in this encounter Care Teams Kst Operator Relationship Specialty Start Date End Date Berkley Madrigal MD PCP - General 04/13/10 02/15/18 AYLEEN Bray [address] [place] [address] documented as of this encounter
--- OUTSIDE RECORDS SUMMARY | 2022-03-25 01:28 | XMS_ITS | Encounter Summary ---
:1950 Author Organization [facility] [place] [address] Care Team Providers Name Role Phone Berkley Madrigal MD Primary Care Provider Encounter Details Date Type Department Care Team Description 08/17/2016 Telephone Hematology and [place] [facility] [place] [place] Nina Pierre, [place] [address] Social History Tobacco Use Types Packs/Day [...] as outlined in her note above. Tess eJssica MD [facility] documented in this encounter Plan of Treatment Upcoming Encounters Date Type Specialty Care Team Description 03/25/2022 Office Visit Hematology and Ángel Fischer MD [facility] [place] [address] Oncology Alyssa Joseph [address] [place] [address] 03/25/2022 Infusion Hematology and Oncology 03/31/2022 Office Visit Hematology and Alan Livingston M D [facility] DR HEMATOLOGY/[place] [address] Oncology Nilam So, COMPUTERIZED MACHINE FABRIC CUTTER [facility] HEMATOLOGY/[place] [address] 04/15/2022 Office Visit Hematology and Ángel Fischer, Oncology [facility] ONCOLOGY [place], [place] [address] (Wo rk) 04/15/2022 Infusion Hematology and Oncology 04/15/2022 Office Visit Hematology and Jazzy Armendariz R D Oncology [facility] DRIVE HEMATOLOGY AND ONCOLOGY [place], [place] [address] (Wo rk) 09/05/2022 Scheduled View Only Obstetrics and Nurse, Julian COLEMAN, router machine operator 09/05/2022 Office Visit Obstetrics and Shazia Whitley, ADENIKE Gynecology [facility] UROGYNECOLOGY [place], [place] [address] (Wo rk) documented as of this encounter Visit Diagnoses Not on filedocumented in this encounter Care Teams Organic Chemistry Professor Relationship Specialty Start Date End Date Berkley Madrigal MD PCP - General 04/13/10 02/15/18 AYLEEN Bray [address] [place] [address] documented as of this encounter
--- OUTSIDE RECORDS SUMMARY | 2022-03-25 01:28 | XMS_ITS | Encounter Summary ---
:1950 Author Organization [facility] [place] [address] Care Team Providers Name Role Phone Berkley Madrigal MD Primary Care Provider Encounter Details Date Type Department Care Team Description 01/05/2017 Anesthesia Event Main Operating Room Lupillo Del Castillo, [facility] Katarina evangel[place] [address] [place] [address] [phone] (Wo rk) Anesthesia Record Procedure Summary Procedure [...] hand), left; ALLIE Kaur Gladys F, RN [id number] catheter system; 20 gauge, 1 in length; distraction, intradermal injection, tolerated well; no longer indicated, catheter/device intact, removed per policy/procedure; 01/05/17; 1750 ETT Mask Ventilation: Adjunct 01/05/17 1455 by 01/05 1618 by (2) (WITH # 9 OPA); ETT Domenica Patel I, BOOKKEEPER RECEPTIONIST Domenica Patel I, BOOKKEEPER RECEPTIONIST Type: Cuffed; ETT Size: 7.5 mm; Mac [...] Correa MD - 01/05/2017 4:34 PM EDT [facility] Department of Anesthesiology Post-procedure Note Patient: Carol [...] All Anesthesia Providers: Anesthesiologist: Aimee Correa MD BOOKKEEPER RECEPTIONIST: Domenica Patel CRNA Last (1hr) Vitals: BP [...] 16.33) performed by Pavan Coffey MD at [facility] MAIN OR ??? RETINAL DETACHMENT SURGERY [...] relaxation for procedure, so will proceed with [facility] Region - Other Informed Consent: Anesthetic plan and risks discussed with patient. Plan discussed with BOOKKEEPER RECEPTIONIST and attending. PAT Staff Note documented in this encounter Miscellaneous Notes Addendum Note - Domenica Patel CRNA - 01/05/2017 4:42 PM EDT Addendum created 01/05/171641 by Domenica Patel CRNA Anesthesia Event edited, Anesthesia Intra Meds edited documented in this encounter Plan of Treatment Upcoming Encounters Date Type Specialty Care Team Description 03/25/2022 Office Visit Hematology Ángel Kimbrough MD [facility] [place] [address] Oncology Alyssa Joseph[address] [place] [address] 03/25/2022 Infusion Hematology and Oncology 03/31/2022 Office Visit Hematology and Alan Livingston M D [facility] DR HEMATOLOGY/[place] [address] Oncology Nilam So APRN [facility] HEMATOLOGY/[place] [address] 04/15/2022 Office Visit Ángel Hill Oncology MD [facility] [place]COLOGY [place] [address] (Wo rk) 04/15/2022 Infusion Hematology and Oncology 04/15/2022 Office Visit Hematology and Jazzy Armendariz R D Oncology [facility] DRIVE HEMATOLOGY AND ONCOLOGY [place], [place] 0375 (Wo rk) 09/05/2022 Scheduled View Only Obstetrics and NurseJulian II, RN Gynecology 09/05/2022 Office Visit Obstetrics and Shazia Whitley APRN Gynecology [facility] UROGYNECOLOGY [place], [place] [address] (Wo rk) documented as of [...] Routine documented in this encounter Care Teams Training Analyst Relationship Specialty Start Date End Date Berkley Madrigal MD PCP - General 04/13/10 02/15/18 AYLEEN Bray [address] [place] [address] documented as of this encounter
--- OUTSIDE RECORDS SUMMARY | 2022-03-25 01:28 | XMS_ITS | Encounter Summary ---
:1950 Author Organization [place] [address] Care Team Providers Name Role Phone Berkley Madrigal MD Primary Care Provider Encounter Details Date Type Department Care Team Description 09/26/2016 Office Visit Hematology and Alan Livingston M D [facility] DR HEMATOLOGY/[place] [address] Chronic lymphocytic [place]cology [place] [facility] [place]am So APRN [facility] DR HEMATOLOGY/[place] [address] [facility] Rachel Simpson DO [facility] HEMATOLOGY/[place] [address] [place] [address] Social History Tobacco Use Types Packs/Day Years [...] in this encounter Progress Notes Nilam So, PRODUCTION CELL LEADER - 09/26/2016 3:45 PM EDT Subjective: Patient [...] Fischer MD [facility] [place] [address] Oncology Alyssa Joseph APRN [address] [place] [address] DR MEDICAL ONCOLOGY [place], [place] [address] 03/25/2022 Infusion Hematology and Oncology 03/31/2022 Office Visit Hematology and Alan Livingston M D [facility] DR HEMATOLOGY/[place] [address] Oncology Nilam So APRN [facility] HEMATOLOGY/[place] [address] 04/15/2022 Office Visit Ángel Hill Oncology MD [facility] ONCOLOGY [place], [place] 0[address] (Wo rk) 04/15/2022 Infusion Hematology and Oncology 04/15/2022 Office Visit Hematology and PageJazzy R D Oncology [facility] DRIVE HEMATOLOGY AND ONCOLOGY [place] [address] (Wo rk) 09/05/2022 Scheduled View Only Obstetrics and Nurse, Julian COLEMAN, science technicians 09/05/2022 Office Visit Obstetrics and Shazia Whitley APRN Gynecology [facility] UROGYNECOLOGY [place], [place] [address] (Wo rk) documented as of this encounter Results Lactate Dehydrogenase (01/30/2017 2:12 PM EDT) athologist Signature LDH 204 110 - 220 [facility] unit/L [facility] Specimen Anatomical Collection Method Collection Time Receive d Time (Source) Location / / Volume Laterality Blood specimen 01/30/2017 2:12 PM 017 2:31 (specimen) EDT PM EDT Resulting Agency Comment Spec In Lab Nilam So PRODUCTION CELL LEADER CHEMISTRY ORDERABLES Performing Organization Address City/State/[place] [address] (ABNORMAL) Comprehensive metabolic panel (non-fasting) (01/30/2017 2:12 PM EDT) athologist Signature Glucose Lvl 84 65 - 199 [facility] mg/dL [facility] Comment: Diabetes: >=200 mg/dL plus symp toms BUN 23 (H) 8 - 18 mg/dL [facility] Creatinine 0.95 0.70 - 1.20 mg/dL [facility] Comment: Please note that the pediatric reference intervals supplied above were not validated at [facility]. Results from pediatri c patients should be interpreted in conjunction to the patient's age, height and muscle mass. Sodium 143 135 - 145 mmol/L [facility] Potassium 4.0 3.5 - 5.0 mmol/L [facility] Comment: Please note: ??Patients with WBC >100,00 0 may have falsely elevated Potassium levels. ??For accurate Potassium quantif ication in these patients send serum separator tube (gold top) for subsequent determinations. ??Contact the Clinical Chemistry Laboratory if there are any qu estions. Chloride 102 98 - 107 mmol/L [facility] CO2 28 22 - 31 mmol/L [facility] Anion Gap 13 5 - 15 mmol/L [facility] Calcium 9.2 8.5 - 10.5 mg/dL [facility] Total Protein 6.6 6.1 - 8.0 gm/dL [facility] Albumin 4.3 3.2 - 5.2 gm/dL [facility] AST 20 0 - 30 unit/L [facility] ALT 20 0 - 30 unit/L [facility] Alk Phos 70 40 - 104 unit/L [facility] Total Bilirubin 0.3 0.2 - 1.3 mg/dL [facility] Estimated GFR 59 (L) >=60 [facility] Comment: This estimated GFR (eGFR) [...] the following links into your internet browser. [email or web address] Specimen Anatomical Collection Method Collection Time Receive d Time (Source) Location / / Volume Laterality Blood specimen 01/30/2017 2:12 PM 017 2:31 (specimen) EDT PM EDT Resulting Agency Comment Spec In Lab Nilam So PRODUCTION CELL LEADER CHEMISTRY ORDERABLES Performing Organization Address City/State/[place] [address] documented in this encounter Visit Diagnoses Diagnosis Chronic lymphocytic leukemia Chronic lymphoid leukemia, without menti on of having achieved remission Colon cancer metastasized to liver Malignant neoplasm of colon, unspecified site documented in this encounter Care Teams Dealer Accounts Investigator Relationship Specialty Start Date End Date Berkley Madrigal MD PCP - General 04/13/10 02/15/18 AYLEEN Bray [address] [place] [address] documented as of this encounter
--- OUTSIDE RECORDS SUMMARY | 2022-03-25 01:28 | XMS_ITS | Encounter Summary ---
:1950 Author Organization [place] [address] Care Team Providers Name Role Phone Berkley Madrigal MD Primary Care Provider Encounter Details Date Type Department Care Team Description 01/05/2017 Hospital Encounter Same Day Program at Venkata Page , Full thickness Zaria Roman MD macular hole of [facility] DR Perkins OPHTHALMOLOGY [place], [place] DEPT [address] [place], [place] [phone] [id number] Social History Tobacco Use Types Packs/Day Years [...] Dropperette the left eye 2 times daily. glucosamine sulfate 500 Take [...] Page MD - 01/05/2017 4:17 PM EDT [facility] Operative Note Patient Name: Carol Keller : [id number] MR#: [id number] Case Date: 01/05/2017 Surgeon: Surgeon(s) and Role: [...] 03/25/2022 Office Visit Hematology Ángel Kimbrough MD [facility] [address] On[address] Alyssa Joseph[address] [place] [address] 03/25/2022 Infusion Hematology and Oncology 03/31/2022 Office Visit Hematology and Alan Livingston M D [facility] HEMATOLOGY/[place] [address] Oncology Nilam So [facility] HEMATOLOGY/[place] [address] 04/15/2022 Office Visit Hematology Ángel Kimbrough Oncology [facility] ONCOLOGY [place], [place] [address] (Wo rk) 04/15/2022 Infusion Hematology and Oncology 04/15/2022 Office Visit Hematology and Jazzy Armendariz R D Oncology [facility] CESAR HEMATOLOGY AND ONCOLOGY [place], [place] 0[address] (Wo rk) 09/05/2022 Scheduled View Only Obstetrics and NurseJulian II, RN Gynecology 09/05/2022 Office Visit Obstetrics and Shazia Whitley [facility] Gynecology [facility] UROGYNECOLOGY [place], [place] [address] (Wo rk) documented as of [...] Ashley Chung RN)1236 (Given - Provider: Ashley Chung, ALLIE)1245 (Given - Provider: Ashley Chung, ALLIE) 1 drop, Left Eye, EVERY 5 MIN, 3 doses, First dose on Marilyn 01/05/17 at 1245, Last dose on Marilyn 01/05/17 at 1255, Day of Surgery (Day of Procedure), Routine PHENYLephrine (MYDFRIN) 2.5 % ophthalmic solution 1 drop (COMPLE QUINN) 1230 (Given - Provider: Ashley T Sheldon, RN)1236 (Given - Provider: Ashley Chung RN)1245 [...] ing Marilyn 01/05/17 at 1616, Until Marilyn 17 at 195, Pain, for MODERATE pain (4-6), Do not exceed 4,000 mg in 24 hours, Routine balanced salt (BSS PLUS) irrigation solution (CANCELED) 1438 (Given - Provider: Venkata Page MD) ONCE PRN, Starting Marilyn 01/05/17 at 1438, Until Marilyn 01/05/17 at 195, Intra- Operative (Intra-Procedure), Routine balanced salt (BSS) irrigation solution (CANCELED) 1438 (Given - Provider: Venkata Page MD) ONCE PRN, Starting Marilyn 01/05/17 at 1438, Until Marilyn 01/05/17 at 195, Intra- Operative (Intra-Procedure), Routine EPINEPHrine injection solution (CANCELED) 1439 (Given - Provider: Zaria Og RN) ONCE PRN, Starting Mon01/05/17 at 1439, Until Mon01/05/17 at 195, Intra- Operative (Intra-Procedure), Routine hydroxypropyl cellulose ((HYPROMELLOSE; OCUCOAT)) 2 % ophthalmic insert (CANCELED) 1523 (Given - Provid er: Venkata Page MD)1558 (Given - Provider: Venkata Page MD) ONCE PRN, Starting Mon01/05/17 at 1523, Until Mon01/05/17 at 195, Intra- Operative (Intra-Procedure), Routine indocyanine green (IC-GREEN) injection (CANCELED) 1534 (Given - Provider: Venkata Page MD - Comment: instilled in ey for 1 min to stain) ONCE PRN, Starting Mon01/05/17 at 1534, Until Marilyn 01/05/17 at 195, Intra- Operative (Intra-Procedure), Routine lidocaine (XYLOCAINE) 10 mg/mL (1 %) injection 3 mg 3 mg (0.3 mL), Subcutaneous, ONCE PRN, 1 dose, Starting Mon01/05/17 at 1616, Until Marilyn 01/05/17 at 195, for discomfort with PIV insertion, Routine moxifloxacin (VIGAMOX) 0.5 % ophthalmic solution (CANCELED) 1523 (Given - Provider: Venkata Page MD - Comment: post op) ONCE PRN, Starting Marilyn 01/05/17 at 1523, Until Marilyn 01/05/17 at 1952, Intra- Operative (Intra-Procedure), Routine mwkbjfil-ecknwsbnw-qlkhgsuddjtvc (DEXACI NE) 3.5 mg/g-10,000 unit/g-0.1 % ophthalmic ointment (CANCELED) 152 (Giv en - Provider: Venkata Page MD - Comment: 0.25 ml post op) ONCE PRN, Starting Marilyn 01/05/17 at 1522, Until Marilyn 01/05/17 at 195, Intra- Operative (Intra-Procedure), Routine ondansetron (ZOFRAN) injection [...] 1635, Until Marilyn 01/05/17 at 195, Nausea, Vomiting, If multiple antiemetics are ordered, [...] Routine tetracaine (PF) (PONTOCAINE) ophthalmic solution (CANCELED) 1523 (Given - Provider: [...] Routine documented in this encounter Care Teams Benefits Coordinator Relationship Specialty Start Date End Date Berkley Madrigal MD PCP - General 04/13/10 02/15/18 AYLEEN Bray [address] [place] [address] documented as of this encounter
--- OUTSIDE RECORDS SUMMARY | 2022-03-25 01:28 | XMS_ITS | Encounter Summary ---
:1950 Author Organization [facility] [address] Care Team Providers Name Role Phone Berkley Madrigal MD Primary Care Provider Encounter Details Date Type Department Care Team Description 01/30/2017 Office Visit Hematology and Alan Livingston M D [facility] DR HEMATOLOGY/[place] [address] Type 2 diabetes mellitus without complic ation, without long- term current use of insulin; Oncology at [facility] Nilam So, FOUNDATION RELATIONS MANAGER [facility] DR HEMATOLOGY/[place] [address] [place] [id number] Social History Tobacco Use Types Packs/Day Years [...] in this encounter Progress Notes Nilam So, FOUNDATION RELATIONS MANAGER - 01/30/2017 3:45 PM EDT Subjective: Patient [...] feeling 'normal'. Sheis looking froward to a [place] trip next summer to visit her daughter [...] home - I will see her in [facility]. she will call if there are any problems before then. . documented in this encounter Plan of Treatment Upcoming Encounters Date Type Specialty Care Team Description 03/25/2022 Office Visit Hematology and Ángel Fischer MD [facility] [place] [address] Oncology Alyssa Joseph APRN [address] [place] [address] [place] [address] 03/25/2022 Infusion Hematology and Oncology 03/31/2022 Office Visit Hematology and Alan Livingston M D [facility] HEMATOLOGY/[place] [address] Oncology Nilam So APRN [facility] HEMATOLOGY/[place] [address] 04/15/2022 Office Visit Hematology and Ángel Fischer Oncology MD [facility] ONCOLOGY [place], [place] 0375 (Wo rk) 04/15/2022 Infusion Hematology and Oncology 04/15/2022 Office Visit Hematology and Jazzy Armendariz R D Oncology [facility] CESAR HEMATOLOGY AND ONCOLOGY [place], [place] 0[address] (Wo rk) 09/05/2022 Scheduled View Only Obstetrics and Nurse, Julian COLEMAN, oracle erp architect 09/05/2022 Office Visit Obstetrics and Shazia Whitley APRN Gynecology [facility] UROGYNECOLOGY [place], [place] 0[address] (Wo rk) documented as of this encounter Visit Diagnoses Diagnosis Type 2 diabetes mellitus without complic ation, without long-term current use of insulin Chronic lymphocytic leukemia Chronic lymphoid leukemia, without menti on of having achieved remission Colon cancer metastasized to liver Malignant neoplasm of colon, unspecified site documented in this encounter Care Teams Bathhouse Keeper Relationship Specialty Start Date End Date Berkley Madrigal MD PCP - General 04/13/10 02/15/18 AYLEEN Bray [address] [place] [address] documented as of this encounter
--- OUTSIDE RECORDS SUMMARY | 2022-03-25 01:28 | XMS_ITS | Encounter Summary ---
:1950 Author Organization [facility] Address [facility] [place] [address] Care Team Providers Name Role Phone Berkley Madrigal MD Primary Care Provider Reason for Visit Reason Onset Date Comments Follow-up 10/24/2016 Patient called to [facility] with Dr. Lundberg. She was Dr. Coffey's patient. Encounter Details Date Type Department Care Team Description 10/24/2016 Telephone Ophthalmology at [facility] Lorena Rey Follow-up (Patient [facility] [place]arina [place] [address] [place] [address] Lundberg. She [phone] Coffey's OPHTHALMOLOGY DE PT. patient.) [place] [id number] (Wo rk) Social History Tobacco Use Types [...] [facility] [place] [address] Oncology Alyssa Joseph [address] [place] [address] 03/25/2022 Infusion Hematology and Oncology 03/31/2022 Office Visit Hematology and Alan Livingston M D [facility] HEMATOLOGY/[place] [address] Oncology Nilam So PROTOZOOLOGIST [facility] HEMATOLOGY/[place] [address] 04/15/2022 Office Visit Hematology Ángel Kimbrough Oncology MD [facility] ONCOLOGY [place], [place] [address] (Wo rk) 04/15/2022 Infusion Hematology and Oncology 04/15/2022 Office Visit Hematology and Jazzy Armendariz R D Oncology [facility]AR HEMATOLOGY AND ONCOLOGY [place], [place] 0[address] (Wo rk) 09/05/2022 Scheduled View Only Obstetrics and Nurse, Julian COLEMAN, stacker driver 09/05/2022 Office Visit Obstetrics and Shazia Whitley APRN Gynecology [facility] UROGYNECOLOGY [place], [place] [address] (Wo rk) documented as of this encounter Visit Diagnoses Not on filedocumented in this encounter Care Teams Immigration Consultant Relationship Specialty Start Date End Date Berkley Madrigal MD PCP - General 04/13/10 02/15/18 AYLEEN Bray [address] [place] [address] documented as of this encounter
--- OUTSIDE RECORDS SUMMARY | 2022-03-25 01:28 | XMS_ITS | Encounter Summary ---
:1950 Author Organization [facility] Address [address] [place] [address] Care Team Providers Name Role Phone Berkley Madrigal MD Primary Care Provider Reason for Visit Reason Comments Post Op Encounter Details Date Type Department Care Team Description 01/11/2017 Office Visit Ophthalmology at [facility] Venkata Swartz, Full thickness [facility] macular hole of left Drive [facility] eye [s/p PPV, [place] [address] ASHLYN atkinson, [facility] [phone] OPHTHALMOLOGY 01/05/17] DEPT [place], [place] [address] Social History Tobacco Use [...] Dose: 1 Drop Eye: Prednisolone Acetate 1% [place] 2 x daily left eye until bottle [...] PLEASE call the Eye Clinic IMMEDIATELY at [phone]. documented in this encounter Progress Notes Venkata [...] Description 03/25/2022 Office Visit Ángel Hill MD [facility] [place] [address] Oncology Alyssa Joseph[address] [place] [address] 03/25/2022 Infusion Hematology and Oncology 03/31/2022 Office Visit Hematology and Alan Livingston M D [facility] HEMATOLOGY/[place] [address] Oncology Nilam So APRN [facility] HEMATOLOGY/[place] [address] 04/15/2022 Office Visit Ángel Hill Oncology MD [facility] ONCOLOGY [place], [place] 0[address] (Wo rk) 04/15/2022 Infusion Hematology and Oncology 04/15/2022 Office Visit Hematology and Jazzy Armendariz R D Oncology [facility] DR[address] HEMATOLOGY AND ONCOLOGY [place], [place] 0[address] (Wo rk) 09/05/2022 Scheduled View Only Obstetrics and Nurse, Julian COLEMAN sub master 09/05/2022 Office Visit Obstetrics and Shazia Whitley APRN Gynecology [facility] UROGYNECOLOGY [place], [place] 0375 (Wo rk) documented as of this encounter Visit Diagnoses Diagnosis 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 [s/p PPV, ERM and ILM peel, SF6 01/05/17] Colon cancer metastasized to liver Malignant neoplasm of colon, unspecified site documented in this encounter Care Teams Rn Plastic Surgery Relationship Specialty Start Date End Date Berkley Madrigal MD PCP - General 04/13/10 02/15/18 AYLEEN Bray [address] [place] [address] documented as of this encounter
--- OUTSIDE RECORDS SUMMARY | 2022-03-25 01:28 | XMS_ITS | Encounter Summary ---
:1950 Author Organization [facility] [address] Care Team Providers Name Role Phone Berkley Madrigal MD Primary Care Provider Reason for Visit Reason Comments Follow-up Schedule Office Case Encounter Details Date Type Department Care Team Description 09/16/2016 Office Visit Hematology and Stefania Ingram Acute sa ddle pulmonary embolism with acute cor pulmonale; Oncology at [facility] MD Bridger Anticoagulated by anticoagulation treatm ent; [facility] Bruising [facility] DR Fernández [place] HEMATOLOGY/ONCOLO [address] [place] DEPT. [phone] [place], [place] [address] Social History Tobacco Use Types [...] Ingram MD - 09/16/2016 11:00 AM EDT [facility] [place] [address] THROMBOSIS FOLLOW-UP DATE OF VISIT 09/16/2016 Patient Carol Keller 1950 PRIMARY CARE PHYSICIAN Berkley Madrigal MD THROMBOSIS PROBLEM LIST: Saddle pulmonary embolism, 07/14/2016 Rx TPA --> heparin --> enoxaparin to current day Associated with eye surgery, 07/11/2016, CLL INTERVAL HISTORY: Carol Keller is a 66 year-old woman with CLL and a post-op saddle PE complicated by a thigh hematoma, bleeding around the operated eye and an ischemic CVA, who is seen in follow-up to review anticoagulation recommendations. aCrol was discharged on enoxaparin, 80 mg twice [...] 16.33) performed by Pavan Coffey MD at [facility] MAIN OR ??? 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 LABORATORY STUDIES Results for CAROL KELLER ( ) as of 09/16/2016 16:03 Ref. [...] from the following studies: None. IMPRESSION Carol Keller is a 66 y.o. man with a post-op episode of significant VTE associated with the ongoing risk factor of CLL. Though clearly precipitated by surgery, the event was life threatening, thus custodial thromboprophylaxis is in her best interest. Though [...] mg twice daily #60, RF0 to the [facility] pharmacy in [facility]. I will defer to Dr. Madrigal to continue the prescription thereafter through her mail order pharmacy. She should have apixaban, 5 mg twice daily through the end of December. After that point (a total of 6months of anticoagulation) the dose can be reduced to 2.5 mg twice daily for the custodial. The lower dose is as effective for VTE prophylaxis as the higher dose after the first 6 months, but is associated with less bleeding. The recommendation to continue apixaban for the computer terminal operator should be revisited periodically over the years [...] seek medical attentionexpeditiously should they occur. Carol Keller had the opportunity to ask questions and [...] as the need arises. Stefania Ingram MD Hospitalist, [facility] documented in this encounter Plan of Treatment Upcoming Encounters Date Type Specialty Care Team Description 03/25/2022 Office Visit Hematology and Ángel Fischer MD [facility] [place] [address] Oncology Alyssa Joseph[address] [address] 03/25/2022 Infusion Hematology and Oncology 03/31/2022 Office Visit Hematology and Alan Livingston M D [facility] HEMATOLOGY/[place] [address] Oncology Nilam So APRN [facility] HEMATOLOGY/[place] [address] 04/15/2022 Office Visit Hematology and Ángel Fischer, Oncology [facility] ONCOLOGY [place], [place] 0[address] (Wo rk) 04/15/2022 Infusion Hematology and Oncology 04/15/2022 Office Visit Hematology and Jazzy Armendariz R D Oncology [facility] HEMATOLOGY AND ONCOLOGY [place], [place] 0375 (Wo rk) 09/05/2022 Scheduled View Only Obstetrics and Nurse, Julian COLEMAN, office supervisor 09/05/2022 Office Visit Obstetrics and Shazia Whitley APRN Gynecology [facility] UROGYNECOLOGY [place], [place] [address] (Wo rk) documented as of this encounter Visit Diagnoses Diagnosis Acute saddle pulmonary embolism with acu te cor pulmonale Anticoagulated by anticoagulation treatm ent Encounter for long-term (current) use of anticoagulants Bruising Contusion of unspecified site Colon cancer metastasized to liver Malignant neoplasm of colon, unspecified site documented in this encounter Care Teams Journeyman Pressman Relationship Specialty Start Date End Date Berkley Madrigal MD PCP - General 04/13/10 02/15/18 AYLEEN Katarina [address] [place] [address] documented as of this encounter
--- OUTSIDE RECORDS SUMMARY | 2022-03-25 01:28 | XMS_ITS | Encounter Summary ---
:1950 Author Organization [place] [address] Care Team Providers Name Role Phone Berkley Madrigal MD Primary Care Provider Encounter Details Date Type Department Care Team Description 05/10/2017 Office Visit Hematology/Oncology Bernardo Salmon MD [facility] DR HEMATOLOGY/[place] [address] Chronic lymphocytic at [facility] Nilam So APRN [facility] DR HEMATOLOGY/[place] [address] [place] [phone] Social History Tobacco Use Types Packs/Day [...] in this encounter Progress Notes Nilam So, EXTRACTOR TENDER RAW STOCK - 05/10/2017 1:00 PM EST Subjective: Patient [...] is good - she is enjoying her usp - loves her puppy Buttons. Her son is moving closer to [place]. She still hopesto go see her daughter [...] I will contninue to see her in [facility]. she??will call if there are any problems before then. documented in this encounter Plan of Treatment Upcoming Encounters Date Type Specialty Care Team Description 03/25/2022 Office Visit Hematology and Ángel Fischer MD [facility] [place] [address] Oncology Alyssa Joseph APRN [address] [place] [address] [place] [address] 03/25/2022 Infusion Hematology and Oncology 03/31/2022 Office Visit Hematology and Alan Livingston M D [facility] DR HEMATOLOGY/[place] [address] Oncology Nilam So APRN [facility] HEMATOLOGY/[place] [address] 04/15/2022 Office Visit Hematology Ángel Kimbrough Oncology MD [facility] ONCOLOGY [place], [place] 0375 (Wo rk) 04/15/2022 Infusion Hematology and Oncology 04/15/2022 Office Visit Hematology and Jazzy Armendariz R D Oncology [facility] CESAR HEMATOLOGY AND ONCOLOGY [place], [place] 0[address] (Wo rk) 09/05/2022 Scheduled View Only Obstetrics and Nurse, Julian COLEMAN, station engineer main line 09/05/2022 Office Visit Obstetrics and Shazia Whitley APRN Gynecology [facility] UROGYNECOLOGY [place], [place] 0[address] (Wo rk) documented as of this encounter Procedures Procedure Name Priority Date/Time Associated Diagnosis Comme nts CREATININE Routine 04/28/2017 Results for thi s procedure are in the resu lts section. CBC (WITH DIFF) Routine 04/28/2017 Results for this procedure are in the resu lts section. documented in this encounter Results Creatinine (04/28/2017) athologist Signature Creatinine 0.80 Specimen (Source) Anatomical Location Collection Method / Collectio n Time Received Time / Laterality Volume Blood specimen 04/28/2017 (specimen) Carol Salmon MD CHEMISTRY ORDERABLES CBC (with Diff) (04/28/2017) athologist Signature WBC 105.2 Hemoglobin 14.2 Platelets [...] site documented in this encounter Care Teams Thermal Spray Operator Relationship Specialty Start Date End Date Berkley Madrigal MD PCP - General 04/13/10 02/15/18 AYLEEN Katarina [address] [place] [address] documented as of this encounter
--- OUTSIDE RECORDS SUMMARY | 2022-03-25 01:28 | XMS_ITS | Encounter Summary ---
:1950 Author Organization [facility] [place] [address] Care Team Providers Name Role Phone Berkley Madrigal MD Primary Care Provider Encounter Details Date Type Department Care Team Description 09/26/2016 Hospital Encounter Hematology and CLL ([facility] Oncology at [facility] lymphocytic leukemia) [place] [address] Social History Tobacco Use Types Packs/Day [...] % left eye 2 times daily. Dropperette glucosamine sulfate Take 500 mg by mouth 0 02/11/2022 500 mg Tablet daily. omeprazole (PRILOSEC) Take 20 mg by mouth [...] H, MD [facility] [place] [address] Oncology Alyssa Joseph [address] [place] [address] 03/25/2022 Infusion Hematology and Oncology 03/31/2022 Office Visit Hematology and Alan Livingston M D [facility] HEMATOLOGY/[place] [address] Oncology Nilam So [facility] HEMATOLOGY/[place] [address] 04/15/2022 Office Visit Hematology Ángel Kimbrough Oncology [facility] ONCOLOGY [place], [place] [address] (Wo rk) 04/15/2022 Infusion Hematology and Oncology 04/15/2022 Office Visit Hematology and Jazzy Armendariz R D Oncology [facility] CESAR HEMATOLOGY AND ONCOLOGY [place], [place] [address] (Wo rk) 09/05/2022 Scheduled View Only Obstetrics and NurseJulian II, RN Gynecology 09/05/2022 Office Visit Obstetrics and Shazia Whitley AUDIO SPECIALIST Gynecology [facility] UROGYNECOLOGY [place], [place] [address] (Wo rk) documented as of [...] Patho logist Time Signature Plat Estimate Normal [facility] RBC Morphology Normal [facility] Smudge Cells Present [facility] Specimen Anatomical Collection Method Collection Time Receive d Time (Source) Location / / Volume Laterality Blood specimen 09/26/2016 2:50 PM 017 3:11 (specimen) EDT PM EDT Resulting Agency Comment Spec In Lab Alan Livingston MD HEMATOLOGY ORDERABLES Performing Organization Address City/State/ZIP Code Phon e Number [place] [phone] (ABNORMAL) Differential, Automated (09/26/2016 2:50 PM EDT) Patholo gist Method Time Signature Neutrophils % 5.9 % [facility] Neutr Abs (ANC) 4.60 1.70 - [facility] 6.10 [facility] x10(3)/[facility] L LABORATORY Lymphocytes % 92.7 % [facility] Lymphocytes Abs 72.4 (H) 0.9 - 3.2 [facility] x10(3)/[facility] LABORATORY Monocytes % 0.9 % [facility] Monocyte Abs 0.7 0.3 - 0.9 [facility] x10(3)/[facility] LABORATORY Eosinophils % 0.3 % [facility] Eosinophils Abs 0.2 0.0 - 0.4 [facility] x10(3)/[facility] LABORATORY Basophils % 0.1 % [facility] Basophils Abs 0.1 0.0 - 0.1 [facility] x10(3)/[facility] LABORATORY Immature Gran % 0.10 % [facility] Comment: Immature granulocytes(IG's)percentage an d absolute count will include metamyelocytes, myelocytes, and promyelo cytes. Blood smears from CBCs yielding IG's will be scanned manually for concor dance. If this scan disagrees with the automated IG or if promyelocytes are not ed, a manual differential will be performed. Claudia Gran Abs 0.10 (H) 0.00 - 0.04 x10(3)/[facility] LABORATORY Specimen Anatomical Collection Method Collection Time Receive d Time (Source) Location / / Volume Laterality Blood specimen 09/26/2016 2:50 PM 017 3:11 (specimen) EDT PM EDT Resulting Agency Comment Spec In Lab Alan Livingston MD HEMATOLOGY ORDERABLES Performing Organization Address City/State/Z[place] [address] (ABNORMAL) Hemogram (09/26/2016 2:50 PM EDT) P athologist Signature WBC 78.1 4.0 - 9.5 [facility] (Critical) x10(3)/[facility] Comment: This result has been called to MADIHA VALLES IS 3K by DOROTEO BARRAGAN on 09 26 2016 at 1550, and has been read back. RBC 4.63 4.00 - 5.21 x10(6)/[facility] LABORATORY Hemoglobin 13.8 11.7 - 15.5 gm/dL [facility] Hematocrit 44.0 35.7 - 45.8 % [facility] MCV 95.0 (H) 82.6 - 94.4 fL [facility] MCH 29.8 27.1 - 32.0 pg [facility] MCHC 31.4 (L) 31.7 - 35.0 gm/dL [facility] Platelets 206 145 - 357 x10(3)/[facility] LABORATORY RDWSD 49.0 (H) 37.0 - 46.0 fL [facility] RDWCV 14.0 11.5 - 14.1 % [facility] LABOR[facility]ORY MPV 11.0 7.6 - 12.9 [facility] LABORATORY nRBC % Auto 0.0 % [facility] LABORATORY nRBC Abs Auto 0.000 0.000 - 0.000 x10(3)/[facility] LABORATORY Specimen Anatomical Collection Method Collection Time Receive d Time (Source) Location / / Volume Laterality Blood specimen 09/26/2016 2:50 PM 017 3:11 (specimen) EDT PM EDT Resulting Agency Comment Spec In Lab Alan Livingston MD HEMATOLOGY ORDERABLES Performing Organization Address City/[facility]/ZIP Code Phon e Number [address] (ABNORMAL) Immunoglobulins, Quantitative (09/26/2016 2:50 PM EDT) P athologist Signature IgG 478 (L) 700 - 1,600 [facility] mg/dL [facility] IgA 65 (L) 70 - 400 [facility] mg/dL [facility] IgM 27 (L) 40 - 230 [facility] mg/dL [facility] Specimen Anatomical Collection Method Collection Time Receive d Time (Source) Location / / Volume Laterality Blood specimen 09/26/2016 2:50 PM 017 3:11 (specimen) EDT PM EDT Resulting Agency Comment Spec In Lab Alan Livingston MD CHEMISTRY ORDERABLES Performing Organization Address City/State/ZIP Code Phon e Number [address] Lactate Dehydrogenase (09/26/2016 2:50 PM EDT) P athologist Signature LDH 204 110 - 220 [facility] unit/L [facility] Specimen Anatomical Collection Method Collection Time Receive d Time (Source) Location / / Volume Laterality Blood specimen 09/26/2016 2:50 PM 017 3:11 (specimen) EDT PM EDT Resulting Agency Comment Spec In Lab Alan Livingston MD CHEMISTRY ORDERABLES Performing Organization Address City/State/ZIP [place] [address] (ABNORMAL) Comprehensive metabolic panel (non-fasting) (09/26/2016 2:50 PM EDT) athologist Signature Glucose Lvl 124 65 - 199 [facility] mg/dL [facility] Comment: Diabetes: >=200 mg/dL plus symp toms BUN 16 8 - 18 mg/dL [facility] Creatinine 0.90 0.70 - 1.20 mg/dL [facility] Comment: Please note that the pediatric reference intervals supplied above were not validated at [facility]. Results from pediatri c patients should be interpreted in conjunction to the patient's age, height and muscle mass. Sodium 143 135 - 145 mmol/L [facility] Potassium 4.2 3.5 - 5.0 mmol/L [facility] Comment: Please note: ??Patients with WBC >100,00 0 may have falsely elevated Potassium levels. ??For accurate Potassium quantif ication in these patients send serum separator tube (gold top) for subsequent determinations. ??Contact the Clinical Chemistry Laboratory if there are any qu estions. Chloride 100 98 - 107 mmol/L [facility] CO2 29 22 - 31 mmol/L [facility] Anion Gap 14 5 - 15 mmol/L [facility] Calcium 9.3 8.5 - 10.5 mg/dL [facility] Total Protein 6.6 6.1 - 8.0 gm/dL [facility] Albumin 4.4 3.2 - 5.2 gm/dL [facility] AST 19 0 - 30 unit/L [facility] ALT 22 0 - 30 unit/L [facility] Alk Phos 67 40 - 104 unit/L [facility] Total Bilirubin <0.2 (L) 0.2 - 1.3 mg/dL [facility] Bili, Direct <0.1 0.0 - 0.3 mg/dL [facility] Estimated GFR >60 >=[address] [facility] Comment: This estimated GFR [...] the following links into your internet browser. [email or web address] [email or web address] Specimen Anatomical Collection Method Collection Time Receive d Time (Source) Location / / Volume Laterality Blood specimen 09/26/2016 2:50 PM 017 3:11 (specimen) EDT PM EDT Resulting Agency Comment Spec In Lab Alan Livingston MD CHEMISTRY ORDERABLES Performing Organization Address City/State/[place] [address] documented in this encounter Visit Diagnoses Diagnosis CLL (chronic lymphocytic leukemia) Chronic lymphoid leukemia, without menti on of having achieved remission Colon cancer metastasized to liver Malignant neoplasm of colon, unspecified site documented in this encounter Care Teams Manager Continuous Improvement Relationship Specialty Start Date End Date Berkley Madrigal MD PCP - General 04/13/10 02/15/18 AYLEEN D [address] [place] [address] documented as of this encounter
--- OUTSIDE RECORDS SUMMARY | 2022-03-25 01:28 | XMS_ITS | Encounter Summary ---
:1950 Author Organization [facility] [place] [address] Care Team Providers Name Role Phone Berkley Madrigal MD Primary Care Provider Encounter Details Date Type Department Care Team Description 08/09/2017 Office Visit Hematology/Oncology Bernardo Salmon MD [facility] DR HEMATOLOGY/[place] [address] Chronic lymphocytic at [facility] Nilam So APRN [facility] [address] HEMATOLOGY/[place] [address] [place] [phone] Social History Tobacco Use Types Packs/Day [...] in this encounter Progress Notes Nilam So, FIELD INSTRUCTOR - 08/09/2017 1:30 PM EDT Subjective: Patient [...] 03/25/2022 Office Visit Hematology Ángel Kimbrough MD [facility] [place] [address] Oncology Alyssa Joseph[address] [address] 03/25/2022 Infusion Hematology and Oncology 03/31/2022 Office Visit Hematology and Alan Livingston M D [facility] HEMATOLOGY/[place] [address] Oncology Nilam So [facility] HEMATOLOGY/[place] [address] 04/15/2022 Office Visit Hematology Ángel Kimbrough Oncology [facility] ONCOLOGY [place], [place] 0375 (Wo rk) 04/15/2022 Infusion Hematology and Oncology 04/15/2022 Office Visit Hematology and Jazzy Armendariz R D Oncology [facility] CESAR HEMATOLOGY AND ONCOLOGY [place], [place] 0375 (Wo rk) 09/05/2022 Scheduled View Only Obstetrics and NurseJulian II, azure architect 09/05/2022 Office Visit Obstetrics and Shazia Whitley APRN Gynecology [facility] UROGYNECOLOGY [place], [place] 0[address] (Wo rk) documented as of [...] Laterality Volume Blood specimen 07/31/2017 (specimen) Nilam D Schaal FIELD INSTRUCTOR CHEMISTRY ORDERABLES Comprehensive metabolic panel (non-fasting) (07/31/2017) athologist Signature BUN 13 Creatinine 0.80 Specimen (Source) Anatomical Location Collection Method / Collectio n Time Received Time / Laterality Volume Blood specimen 07/31/2017 (specimen) Nilam D Schaal FIELD INSTRUCTOR CHEMISTRY ORDERABLES CBC (with Diff) (07/31/2017) athologist Signature WBC 107.2 Hemoglobin 13.5 Hematocrit 43.8 Platelets 176 Neutr Abs (ANC) 9.64 Specimen (Source) Anatomical Location Collection Method / Collectio n Time Received Time / Laterality Volume Blood specimen 07/31/2017 (specimen) Nilam D Schaal FIELD INSTRUCTOR HEMATOLOGY ORDERABLES documented in this encounter Visit Diagnoses Diagnosis Chronic lymphocytic leukemia Chronic lymphoid leukemia, without menti on of having achieved remission Colon cancer metastasized to liver Malignant neoplasm of colon, unspecified site documented in this encounter Care Teams Desizing Pad Operator Relationship Specialty Start Date End Date Berkley Madrigal MD PCP - General 04/13/10 02/15/18 AYLEEN Bray [address] [place] [address] documented as of this encounter
--- OUTSIDE RECORDS SUMMARY | 2022-03-25 01:28 | XMS_ITS | Encounter Summary ---
:1950 Author Organization [facility] [place] 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 [s/p PPV, ERM and ILM peel, SF6 01/05/17 with NNB]; [facility] Macular hole, right eye [s/p PPV, MP, ga s [July 2016] with CBC] [place] [address] [place] [address] OPHTHALMOLOGY DEPT [place], [place] [address] Social History Tobacco Use Types [...] 03/25/2022 Office Visit Hematology Ángel Kimbrough MD [facility] [place] [address] Oncology Alyssa Joseph [address] [place] [address] 03/25/2022 Infusion Hematology and Oncology 03/31/2022 Office Visit Hematology and Alan Livingston M D [facility] HEMATOLOGY/[place] [address] Oncology Nilam So APRN [facility] HEMATOLOGY/[place] [address] 04/15/2022 Office Visit Ángel Hill Oncology MD [facility] ONCOLOGY [place], [place] 0375 (Wo rk) 04/15/2022 Infusion Hematology and Oncology 04/15/2022 Office Visit Hematology and Jazzy Armendariz R D Oncology [facility] CESAR HEMATOLOGY AND ONCOLOGY [place], [place] 0375 (Wo rk) 09/05/2022 Scheduled View Only Obstetrics and Nurse, Julian COLEAMN, store clerk checker 09/05/2022 Office Visit Obstetrics and Shazia Whitley APRN Gynecology [facility] UROGYNECOLOGY [place], [place] 0[address] (Wo rk) documented as of [...] CBC] documented in this encounter Results OCT [id number] EYES (07/25/2017 3:05 PM EST) Anatomical Region [...] site documented in this encounter Care Teams Day Haul Youth Supervisor Relationship Specialty Start Date End Date Berkley Madrigal MD PCP - General 04/13/10 02/15/18 AYLEEN D [address] [place] [address] documented as of this encounter
--- OUTSIDE RECORDS SUMMARY | 2022-03-25 01:28 | XMS_ITS | Encounter Summary ---
:1950 Author Organization [facility] Address [address] [facility] [address] [place] [address] Care Team Providers Name Role Phone Berkley Madrigal MD Primary Care Provider Reason for Visit Reason Comments Follow-up Skin Check Encounter Details Date Type Department Care Team Description 08/21/2017 [facility], [facility] of SCC (squamous cell carcinoma) of skin; Radha ALEGRIA Seborrheic keratosis [address] Jori B DERMATOLOGY [place], [place] [id number] [phone] Social History Tobacco Use Types Packs/Day Years [...] Fischer MD [facility] [place] [address] Oncology Alyssa Joseph [address] [place] [address] 03/25/2022 Infusion Hematology and Oncology 03/31/2022 Office Visit Hematology and Alan Livingston M D [facility] HEMATOLOGY/[place] [address] Oncology Nilam So APRN [facility] HEMATOLOGY/[place] [address] 04/15/2022 Office Visit Hematology and Ángel Fischer Oncology [facility] ONCOLOGY [place], [place] 0375 (Wo rk) 04/15/2022 Infusion Hematology and Oncology 04/15/2022 Office Visit Hematology and Jazzy Armendariz R D Oncology [facility] CESAR HEMATOLOGY AND ONCOLOGY [place], [place] 0[address] (Wo rk) 09/05/2022 Scheduled View Only Obstetrics and Nurse, Julian COLEMAN RNsleeve machine tender 09/05/2022 Office Visit Obstetrics and Shazia Whitley APRN Gynecology [facility] UROGYNECOLOGY [place], [place] 0[address] (Wo rk) documented as of this encounter Visit Diagnoses Diagnosis History of SCC (squamous cell carcinoma) of skin Personal history of other malignant neop lasm of skin Seborrheic keratosis Other seborrheic keratosis Colon cancer metastasized to liver Malignant neoplasm of colon, unspecified site documented in this encounter Care Teams Mri Technician Relationship Specialty Start Date End Date Berkley Madrigal MD PCP - General 04/13/10 02/15/18 JORI Bray [address] [place] [address] documented as of this encounter
--- OUTSIDE RECORDS SUMMARY | 2022-03-25 01:28 | XMS_ITS | Encounter Summary ---
:1950 Author Organization [facility] Address [address] [place] [address] Care Team Providers Name Role Phone Berkley Madrigal MD Primary Care Provider Encounter Details Date Type Department Care Team Description 03/01/2017 Laboratory Appointment Lab 3L [facility] Type 2 diabetes [facility] mellitus without [facility] Maddie galarza unspecified skilled nursing [place], [place] insulin use [facility] [phone] Social History Tobacco Use Types Packs/Day Years [...] MD [facility] [place] [address] [address] [place] [address] 03/25/2022 Infusion Hematology and Oncology 03/31/2022 Office Visit Hematology and Alan Livingston M D [facility] HEMATOLOGY/[place] [address] Oncology Nilam So APRN [facility] HEMATOLOGY/[place] [address] 04/15/2022 Office Visit Ángel [place] Oncology [facility] ONCOLOGY [place], [place] 0[address] (Wo rk) 04/15/2022 Infusion Hematology and Oncology 04/15/2022 Office Visit Hematology and Jazzy Armendariz R D Oncology [facility] DRIVE HEMATOLOGY AND ONCOLOGY [place], [place] 0375 (Wo rk) 09/05/2022 Scheduled View Only Obstetrics and Nurse, Julian COLEMAN RNnuclear fuel enrichment technician 09/05/2022 Office Visit Obstetrics and Shazia Whitley APRN Gynecology [facility] UROGYNECOLOGY [place], [place] 0[address] (Wo rk) documented as of [...] U Albumin/Cre Ratio (03/01/2017 1:01 PM EDT) [facility] Method Time Signature Alb/Cr Ratio, Not Calculated 0 - 29 MADIHA Random mcg/mg Cr [facility] Comment: Reference Ranges: <30 mcg/mg: [...] 362 U Albumin Conc, Random <3.0 mg/L [facility] U Creatinine 38 mg/dL [facility] Specimen Anatomical Collection Method Collection Time Receive d Time (Source) Location / / Volume Laterality Urine specimen 03/01/2017 1:01 PM 017 1:07 (specimen) EDT PM EDT Resulting Agency Comment Spec In Lab Maribel Daniel Chaz HADOOP ADMIN URINE ORDERABLES Performing Organization Address City/State/ZIP Code Phon e Number [address] LDL Cholesterol, Direct (03/01/2017 1:01 PM EDT) athologist Signature LDL Chol 149 <=190 [facility] mg/dL [facility] Specimen Anatomical Collection Method Collection Time Receive d Time (Source) Location / / Volume Laterality Blood specimen 03/01/2017 1:01 PM 017 1:07 (specimen) EDT PM EDT Resulting Agency Comment Spec In Lab Maribel Daniel Chaz HADOOP ADMIN CHEMISTRY ORDERABLES Performing Organization Address City/State/ZIP [place] [address] (ABNORMAL) HDL/Cholesterol Profile (03/01/2017 1:01 PM EDT) Patholo gist Method Time Signature Chol, Total 240 (H) <=239 MADIHA mg/dL [facility] HDL 77 >=40 MADIHA mg/dL [facility] Chol/HDL Ratio 3.1 ratio [facility] Chol/HDL See Note MADIHA Interpretation [facility] Comment: Lipid management should be guided by a p atient? s ASCVD risk, goals and preferences. ACC/AHA Guidelines recommend high intens ity statin if clinical ASCVD or LDL greater than or equal to 190 mg/dL. http://thinkingphonesuriTracs.com/OKO-KDZ-Ggqsxbgwc Measure LDL if Total Cholesterol minus H DL Cholesterol is greater than 220 mg/dL. Adults aged 40-75 with LDL 70-189 mg/dL should have their 10 year ASCVD risk estimated with the ACC/AHA ASCVD risk es timator http://tools.acc.org/JMFGW-Mvjn-Pdzlzgya r/ Statin should be discussed if risk [...] Organization Address City/State/ZIP [place] [address] documented in this encounter Visit Diagnoses Diagnosis Type 2 diabetes mellitus without complic ation, unspecified long term care pharmacist insulin use status Colon cancer metastasized to liver Malignant neoplasm of colon, unspecified site documented in this encounter Care Teams Ranch Hand Supervisor Relationship Specialty Start Date End Date Berkley Madrigal MD PCP - General 04/13/10 02/15/18 AYLEEN Bray [address] [place] [address] documented as of this encounter
--- OUTSIDE RECORDS SUMMARY | 2022-03-25 01:28 | XMS_ITS | Encounter Summary ---
:1950 Author Organization [facility] [place] [address] Care Team Providers Name Role Phone Berkley Madrigal MD Primary Care Provider Encounter Details Date Type Department Care Team Description 01/30/2017 Hospital Encounter Hematology and Chronic lymphocytic Oncology at [facility] [place] [address] Social History Tobacco Use Types Packs/Day [...] Fischer MD [facility] [place] [address] Oncology Alyssa Joseph[address] [place] [address] 03/25/2022 Infusion Hematology and Oncology 03/31/2022 Office Visit Hematology and Alan Livingston M D [facility] HEMATOLOGY/[place] [address] Oncology Nilam So [facility] HEMATOLOGY/[place] [address] 04/15/2022 Office Visit Hematology Ángel Kimbrough Oncology [facility] ONCOLOGY [place], [place] [address] (Wo rk) 04/15/2022 Infusion Hematology and Oncology 04/15/2022 Office Visit Hematology and Jazzy Armendariz R D Oncology [facility] CESAR HEMATOLOGY AND ONCOLOGY [place], [place] 0[address] (Wo rk) 09/05/2022 Scheduled View Only Obstetrics and Nurse, Julian COLEMAN, health and wellness coordinator 09/05/2022 Office Visit Obstetrics and Shazia Whitley APRN Gynecology [facility] UROGYNECOLOGY [place], [place] [address] (Wo rk) documented as of [...] 2:12 PM EDT) Analysis Performed At Patho logis Time Signature Hemoglobin A1C 5.9 (H) 4.3 - 5.6 [facility] Comment: Reference Range: 4.3 - [...] Mellitus, Diabetes Care 2013; 36: Suppl. 1, O87-00 Est Avg Gluc 123 mg/dL [facility] Comment: eAG equivalents for HbA1c percentages: HbA1c(%) ?eAG(mg/dL) 6.0 ?126 6.5 ?140 7.0 ?154 7.5 ?169 8.0 ?183 8.5 ?197 9.0 ?212 9.5 ?226 10.0 ? 240 Limitations: The eAG calculation has not been validated on women, individuals below 18 years old and above 70 years old, and individuals with hemoglobinopathies. Additional resources are available on [facility] website. Lázaro MIX, Lolis J, Reece R, et al. ??Tr anslating the A1C assay into estimated average glucose values. ??Diabetes Care 2008:31(8):9836-9047. Specimen Anatomical Collection Method Collection Time Receive d Time (Source) Location / / Volume Laterality Blood specimen Venous Draw / 01/30/2017 2:12 PM 2016 4:58 (specimen) Unknown EDT PM EDT Resulting Agency Comment Spec In Lab Nilam So APRN CHEMISTRY ORDERABLES Performing Organization Address City/[facility]/ZIP [place] [address] Scan, Peripheral Blood (01/30/2017 2:12 PM EDT) Analysis Performed At Patho logist Time Signature Plat Estimate Normal [facility] RBC Morphology Normal [facility] Smudge Cells Present [facility] Specimen Anatomical Collection Method Collection Time Receive d Time (Source) Location / / Volume Laterality Blood specimen 01/30/2017 2:12 PM 017 2:31 (specimen) EDT PM EDT Resulting Agency Comment Spec In Lab Nilam So APRN HEMATOLOGY ORDERABLES Performing Organization Address City/[facility]/ZIP [place] [address] (ABNORMAL) Differential, Automated (01/30/2017 2:12 PM EDT) Patholo gist Method Time Signature Neutrophils % 5.8 % [facility] Neutr Abs (ANC) 5.19 1.70 - [facility] 6.10 [facility] x10(3)/[facility] L LABORATORY Lymphocytes % 91.7 % [facility] Lymphocytes Abs 81.8 (H) 0.9 - 3.2 [facility] x10(3)/[facility] LABORATORY Monocytes % 2.0 % [facility] Monocyte Abs 1.8 (H) 0.3 - 0.9 [facility] x10(3)/[facility] LABORATORY Eosinophils % 0.2 % [facility] Eosinophils Abs 0.2 0.0 - 0.4 [facility] x10(3)/[facility] LABORATORY Basophils % 0.1 % [facility] Basophils Abs 0.1 0.0 - 0.1 [facility] x10(3)/[facility] LABORATORY Immature Gran % 0.20 % [facility] Comment: Immature granulocytes(IG's)percentage an d absolute count will include metamyelocytes, myelocytes, and promyelo cytes. Blood smears from CBCs yielding IG's will be scanned manually for concor dance. If this scan disagrees with the automated IG or if promyelocytes are not ed, a manual differential will be performed. Claudia Gran Abs 0.18 (H) 0.00 - 0.04 x10(3)/[facility] LABORATORY Specimen Anatomical Collection Method Collection Time Receive d Time (Source) Location / / Volume Laterality Blood specimen 01/30/2017 2:12 PM 017 2:31 (specimen) EDT PM EDT Resulting Agency Comment Spec In Lab Nilam So APRN HEMATOLOGY ORDERABLES Performing Organization Address City/State/[place] [address] (ABNORMAL) Hemogram (01/30/2017 2:12 PM EDT) P athologist Signature WBC 89.2 4.0 - 9.5 [facility] (Critical) x10(3)/[facility]ORATORY Comment: This result has been called to MARIA GUADALUPE POND by Milena Smlal on 01 30 2017 at 1508, and has been read back. RBC 4.55 4.00 - 5.21 x10(6)/[facility] LABORATORY Hemoglobin 13.7 11.7 - 15.5 gm/dL [facility] Hematocrit 42.0 35.7 - 45.8 % [facility] MCV 92.3 82.6 - 94.4 fL [facility] MCH 30.1 27.1 - 32.0 pg [facility] MCHC 32.6 31.7 - 35.0 gm/dL [facility] Platelets 162 145 - 357 x10(3)/mcL [facility] RDWSD 47.0 (H) 37.0 - 46.0 fL [facility] RDWCV 14.0 11.5 - 14.1 % [facility] MPV 11.5 7.6 - 12.9 [facility] LABORATORY nRBC % Auto 0.0 % [facility] nRBC Abs Auto 0.000 0.000 - 0.000 x10(3)/[facility] LABORATORY Specimen Anatomical Collection Method Collection Time Receive d Time (Source) Location / / Volume Laterality Blood specimen 01/30/2017 2:12 PM 017 2:31 (specimen) EDT PM EDT Resulting Agency Comment Spec In Lab Nilam So APRN HEMATOLOGY ORDERABLES Performing Organization Address City/[facility]/ZIP [place] [address] Lactate Dehydrogenase (01/30/2017 2:12 PM EDT) P athologist Signature LDH 204 110 - 220 [facility] unit/L [facility] Specimen Anatomical Collection Method Collection Time Receive d Time (Source) Location / / Volume Laterality Blood specimen 01/30/2017 2:12 PM 017 2:31 (specimen) EDT PM EDT Resulting Agency Comment Spec In Lab Nilam So APRN CHEMISTRY ORDERABLES Performing Organization Address City/[facility]/ZIP [place] [address] (ABNORMAL) Comprehensive metabolic panel (non-fasting) (01/30/2017 2:12 PM EDT) athologist Signature Glucose Lvl 84 65 - 199 [facility] mg/dL [facility] Comment: Diabetes: >=200 mg/dL plus symp toms BUN 23 (H) 8 - 18 mg/dL [facility] Creatinine 0.95 0.70 - 1.20 mg/dL [facility] Comment: Please note that the pediatric reference intervals supplied above were not validated at [facility]. Results from pediatri c patients should be interpreted in conjunction to the patient's age, height and muscle mass. Sodium 143 135 - 145 mmol/L [facility] Potassium 4.0 3.5 - 5.0 mmol/L [facility] Comment: Please note: ??Patients with WBC >100,00 0 may have falsely elevated Potassium levels. ??For accurate Potassium quantif ication in these patients send serum separator tube (gold top) for subsequent determinations. ??Contact the Clinical Chemistry Laboratory if there are any qu estions. Chloride 102 98 - 107 mmol/L [facility] CO2 28 22 - 31 mmol/L [facility] Anion Gap 13 5 - 15 mmol/L [facility] Calcium 9.2 8.5 - 10.5 mg/dL [facility] Total Protein 6.6 6.1 - 8.0 gm/dL [facility] Albumin 4.3 3.2 - 5.2 gm/dL [facility] AST 20 0 - 30 unit/L [facility] ALT 20 0 - 30 unit/L [facility] Alk Phos 70 40 - 104 unit/L [facility] Total Bilirubin 0.3 0.2 - 1.3 mg/dL [facility] Estimated GFR 59 (L) >=60 [facility] Comment: This estimated GFR [...] the following links into your internet browser. [email or web address]/DHnkdep [email or web address]/[email or web address] Specimen Anatomical Collection Method Collection Time Receive d Time (Source) Location / / Volume Laterality Blood specimen 01/30/2017 2:12 PM 017 2:31 (specimen) EDT PM EDT Resulting Agency Comment Spec In Lab Nilam So ESL INSTRUCTIONAL ASSISTANT CHEMISTRY ORDERABLES Performing Organization Address City/State/ZIP [place] [address] documented in this encounter Visit Diagnoses Diagnosis Chronic lymphocytic leukemia Chronic lymphoid leukemia, without menti on of having achieved remission Colon cancer metastasized to liver Malignant neoplasm of colon, unspecified site documented in this encounter Care Teams Cheese Sprayer Relationship Specialty Start Date End Date Berkley Madrigal MD PCP - General 04/13/10 02/15/18 AYLEEN Katarina [address] [place] [address] documented as of this encounter
--- OUTSIDE RECORDS SUMMARY | 2022-03-25 01:28 | XMS_ITS | Encounter Summary ---
:1950 Author Organization [facility] Address [address] [place] [address] Care Team Providers Name Role Phone Berkley Madrigal MD Primary Care Provider Reason for Visit Reason Comments Macular Hole Encounter Details Date Type Department Care Team Description 02/14/2017 Office Visit Ophthalmology at [facility] Venkata Swartz, Full thickness [facility] macular hole of left Drive [facility] eye [s/p PPV, [place] [address] ASHLYN atkinson, OPHTHALMOLOGY 01/05/17] (Prim alyson Dx) DEPT [place], [place] [address] Social History Tobacco Use Types [...] Ángel Fischer MD [facility] [place] [address] Oncology Alyssa Joseph[address] [address] 03/25/2022 Infusion Hematology and Oncology 03/31/2022 Office Visit Hematology and Alan Livingston M D [facility] HEMATOLOGY/[place] [address] Oncology Nilam So ASSISTANT PROFESSOR OF CHEMISTRY [facility] HEMATOLOGY/[place] [address] 04/15/2022 Office Visit Hematology Ángel Kimbrough Oncology [facility] ONCOLOGY [place], [place] 0375 (Wo rk) 04/15/2022 Infusion Hematology and Oncology 04/15/2022 Office Visit Hematology and Jazzy Armendariz R D Oncology [facility] CESAR HEMATOLOGY AND ONCOLOGY [place], [place] 0375 (Wo rk) 09/05/2022 Scheduled View Only Obstetrics and Nurse, Obgyn II, button inspector 09/05/2022 Office Visit Obstetrics and Shazia Whitley APRN Gynecology [facility] UROGYNECOLOGY [place], [place] 0[address] (Wo rk) documented as of this encounter Procedures Procedure Name Priority Date/Time Associated Diagnosis Comme nts OCT RETINA - OU - Routine 02/14/2017 3:51 PM Full thickness Re sults for this BOTH EYES EDT macular hole of left procedu re are in eye [s/p PPV, ERM the result s and ILM peel, SF6 section. 01/05/17] documented in this encounter Results OCT [id number] EYES (02/14/2017 3:51 PM EDT) Anatomical Region [...] and ILM peel, SF6 01/05/17] - Primary Colon cancer metastasized to liver Malignant neoplasm of colon, unspecified site documented in this encounter Care Teams Baller Tender Relationship Specialty Start Date End Date Berkley Madrigal MD PCP - General 04/13/10 02/15/18 AYLEEN Katarina [address] [place] [address] documented as of this encounter
--- OUTSIDE RECORDS SUMMARY | 2022-03-25 01:28 | XMS_ITS | Encounter Summary ---
:1950 Author Organization [place] [address] Care Team Providers Name Role Phone Berkley Madrigal MD Primary Care Provider Encounter Details Date Type Department Care Team Description 01/05/2017 Surgery Main Operating Room Michelle Page MD VITRECTOMY, W/ MEMBRANE [facility] DR MERINO (WRVU 16.33) [facility] [place] [address] [place] [address] [phone] Social History Tobacco Use Types Packs/Day Years [...] Page MD - 01/05/2017 4:17 PM EDT [facility] Operative Note Patient Name: Carol Keller : [id number] MR#: [id number] Case Date: 01/05/2017 Surgeon: Surgeon(s) and Role: [...] 03/25/2022 Office Visit Hematology Ángel Kimbrough MD [facility] [place] [address] Oncology Alyssa Joseph[address] [place] [address] 03/25/2022 Infusion Hematology and Oncology 03/31/2022 Office Visit Hematology and Alan Livingston M D [facility] HEMATOLOGY/[place] [address] Oncology Nilam So [facility] HEMATOLOGY/[place] [address] 04/15/2022 Office Visit Hematology Ángel Kimbrough, Oncology [facility] ONCOLOGY [place], [place] 0375 (Wo rk) 04/15/2022 Infusion Hematology and Oncology 04/15/2022 Office Visit Hematology and Jazzy Armendariz R D Oncology [facility] CESAR HEMATOLOGY AND ONCOLOGY [place], [place] 0[address] (Wo rk) 09/05/2022 Scheduled View Only Obstetrics and Nurse, Julian COLEMAN, lead software engineer 09/05/2022 Office Visit Obstetrics and Shazia Whitley [facility] Gynecology [facility] UROGYNECOLOGY [place], [place] [address] (Wo rk) documented as of [...] Marilyn 01/05/17 at 1953, Intra-Operative (Intra-Procedure), Routine oglgguuk-uxwqdxkla-rqjrmmzopaozn (DEXACINE) Given 01/05/2017 3:22 PM EDT 1 [...] Ashley Chung RN)1245 (Given - Provider: Ashley Chung, ALLIE) 1 [...] Ashley Chung RN)1245 (Given - Provider: Ashley Chung, ALLIE) 1 [...] Provider: Zaria Og RN) ONCE PRN, Starting Marilyn 01/05/17 at 1439, Until Marilyn 01/05/17 at 1953, Intra- Operative (Intra-Procedure), Routine hydroxypropyl cellulose ((HYPROMELLOSE; OCUCOAT)) 2 % ophthalmic insert (CANCELED) 1523 (Given - Provid er: Venkata Page MD)1558 (Given - Provider: Venkata Page MD) ONCE PRN, Starting Marilyn 01/05/17 at 1523, Until Marilyn 01/05/17 at 1953, Intra- Operative (Intra-Procedure), Routine indocyanine green (IC-GREEN) injection (CANCELED) 1534 (Given - Provider: Venkata Page MD - Comment: instilled in ey for 1 min to stain) ONCE PRN, Starting Marilyn 01/05/17 at 1534, Until Marilyn 01/05/17 at 195, Intra- Operative (Intra-Procedure), Routine lidocaine (XYLOCAINE) 10 mg/mL (1 %) injection 3 mg 3 mg (0.3 mL), Subcutaneous, ONCE PRN, 1 dose, Starting Marilyn 01/05/17 at 1616, Until Marilyn 01/05/17 at 1952, for discomfort with PIV insertion, Routine moxifloxacin (VIGAMOX) 0.5 % ophthalmic solution (CANCELED) 1522 (Given - Provider: Venkata Page MD - Comment: post op) ONCE PRN, Starting Marilyn 01/05/17 at 1523, Until Marilyn 01/05/17 at 1952, Intra- Operative (Intra-Procedure), Routine flhtfrze-hnuzuykrd-rrwxtkjyubfpy (DEXACI NE) 3.5 mg/g-10,000 unit/g-0.1 % ophthalmic ointment (CANCELED) 1521 (Giv en - Provider: Venkata Page MD - Comment: 0.25 ml post op) ONCE PRN, Starting Marilyn 01/05/17 at 1522, Until Marilyn 01/05/17 at 1952, Intra- Operative (Intra-Procedure), Routine ondansetron (ZOFRAN) injection 4 mg (CANCELED) 1613 (Given - Provider: Domenica Patel I RETAIL FIELD MERCHANDISER) 4 mg, Intravenous, EVERY 30 MIN PRN, [...] 01/05/17 at 1616, Until Marilyn 01/05/17 at 1952, flush, Flush pertains to all indwelling lines. [...] 1635, Until Marilyn 01/05/17 at 1952, Nausea, Vomiting
If multiple antiemetics are ordered, [...] Routine documented in this encounter Care Teams Director Life Sciences Relationship Specialty Start Date End Date Berkley Madrigal MD PCP - General 04/13/10 02/15/18 [facility] Katarina [address] [place] [address] documented as of this encounter
--- OUTSIDE RECORDS SUMMARY | 2022-03-25 01:28 | XMS_ITS | Encounter Summary ---
:1950 Author Organization [facility] Address [facility] [address] [place] [address] Care Team Providers Name Role Phone Berkley Madrigal MD Primary Care Provider Reason for Visit Reason Onset Date Comments Labs Only 07/31/2017 critical WBC Encounter Details Date Type Department Care Team Description 07/31/2017 Telephone Hematology/Oncology at Maddie Richardson RN Labs Only (critical WBC) [address] [phone] Social History Tobacco Use Types [...] 3:29 PM EDT WBC 107.2, Nilam So CLOTH BRUSHING AND SUEDING SUPERVISOR notified she will be seeing pt this wed. 08/02/17. documented in this encounter Plan of Treatment Upcoming Encounters Date Type Specialty Care Team Description 03/25/2022 Office Visit Hematology and Ángel Fischer MD [facility] [place] [place] [address] Oncology Alyssa Joseph GEOMAGNETIST [address] [place] [address] [place] [address] 03/25/2022 Infusion Hematology and Oncology 03/31/2022 Office Visit Hematology and Alan Livingston M D [facility] HEMATOLOGY/[place] [address] Oncology Nilam So APRN [facility] HEMATOLOGY/[place] [address] 04/15/2022 Office Visit Hematology and Ángel Fischer, Oncology [facility] ONCOLOGY [place], [place] 0[address] (Wo rk) 04/15/2022 Infusion Hematology and Oncology 04/15/2022 Office Visit Hematology and Jazzy Armendariz R D Oncology [facility] DR[address] HEMATOLOGY AND ONCOLOGY [place], [place] 0[address] (Wo rk) 09/05/2022 Scheduled View Only Obstetrics and NurseJulian II, cloth spreader screen printing 09/05/2022 Office Visit Obstetrics and Shazia Whitley APRN Gynecology [facility] UROGYNECOLOGY [place], [place] [address] (Wo rk) documented as of [...] on filedocumented in this encounter Care Teams Eeler Relationship Specialty Start Date End Date Berkley Madrigal MD PCP - General 04/13/10 02/15/18 AYLEEN D [address] [place] [address] documented as of this encounter
--- OUTSIDE RECORDS SUMMARY | 2022-03-25 01:28 | XMS_ITS | Encounter Summary ---
:1950 Author Organization [facility] Address [address] [place] [address] Care Team Providers Name Role Phone Berkley Madrigal MD Primary Care Provider Reason for Visit Reason Comments Post Op Encounter Details Date Type Department Care Team Description 01/06/2017 Office Visit Ophthalmology at [facility] Venkata Swartz, Full thickness [facility] macular hole of left Drive [facility] eye [s/p PPV, [place] [address] ASHLYN atkinson, [facility] [phone] OPHTHALMOLOGY 01/05/17] DEPT [place], [place] [address] Social History Tobacco Use Types [...] Dose: 1 Drop Eye: Prednisolone Acetate 1% [place] 4 x daily left eye Vigamox Davalos [...] PLEASE call the Eye Clinic IMMEDIATELY at [phone]. documented in this encounter Progress Notes Venkata [...] [facility] [place] [address] Oncology Alyssa Joseph[address] [place] [address] 03/25/2022 Infusion Hematology and Oncology 03/31/2022 Office Visit Hematology and Alan Livingston M D [facility] HEMATOLOGY/[place] [address] Oncology Nilam So STEAM SHOVEL OILERFORMERLY [facility] DR HEMATOLOGY/[place] [address] 04/15/2022 Office Visit Hematology and Ángel Fischer, Oncology [facility] ONCOLOGY [place], [place] 0375 (Wo rk) 04/15/2022 Infusion Hematology and Oncology 04/15/2022 Office Visit Hematology and Jazzy Armendariz R D Oncology [facility] DRIVE HEMATOLOGY AND ONCOLOGY [place], [place] 0[address] (Wo rk) 09/05/2022 Scheduled View Only Obstetrics and NurseJulian II, chief merchandising officer 09/05/2022 Office Visit Obstetrics and Shazia Whitley APRN Gynecology [facility] UROGYNECOLOGY [place], [place] 0[address] (Wo rk) documented as of this encounter Visit Diagnoses Diagnosis 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 [s/p PPV, ERM and ILM peel, SF6 01/05/17] Colon cancer metastasized to liver Malignant neoplasm of colon, unspecified site documented in this encounter Care Teams Tent Worker Relationship Specialty Start Date End Date Berkley Madrigal MD PCP - General 04/13/10 02/15/18 AYLEEN Bray [address] [place] [address] documented as of this encounter
--- OUTSIDE RECORDS SUMMARY | 2022-03-25 01:29 | XMS_ITS | Encounter Summary ---
:1950 Author Organization [facility] Address [facility] [place] [address] Care Team Providers Name Role Phone Berkley Madrigal MD Primary Care Provider Reason for Visit Reason Comments Macular Pucker Encounter Details Date Type Department Care Team Description 06/10/2016 Office Visit Ophthalmology at [facility] Pavan Mancera Macular pucker, [facility] MD Tori bilateral (Primary Drive [facility] [place]) [place] [address] OPHTHALMOLOGY [place] PT. [place], [place] [address] (Wo rk) Social History Tobacco [...] Fischer MD [facility] [place] [address] Oncology Alyssa Joseph, [address] [place] [address] 03/25/2022 Infusion Hematology and Oncology 03/31/2022 Office Visit Hematology and Alan Livingston M D [facility] HEMATOLOGY/[place] [address] Oncology Nilam So APRN [facility] HEMATOLOGY/[place] [address] 04/15/2022 Office Visit Hematology and Ángel Fischer Oncology [facility] ONCOLOGY [place], [place] 0375 (Wo rk) 04/15/2022 Infusion Hematology and Oncology 04/15/2022 Office Visit Hematology and Jazzy Armendariz R D Oncology [facility] CESAR HEMATOLOGY AND ONCOLOGY [place], [place] 0375 (Wo rk) 09/05/2022 Scheduled View Only Obstetrics and Nurse, Julian COLEMAN, video control operator 09/05/2022 Office Visit Obstetrics and Shazia Whitley APRN Gynecology [facility] UROGYNECOLOGY [place], [place] 0375 (Wo rk) documented as of this encounter Procedures Procedure Name Priority Date/Time Associated Comments Diagnosis OCT RETINA - OU - Routine 06/20/2016 2:43 PM Macular pucker, R esults for this BOTH EYES EST bilateral procedure are i n the results section. VITRECTOMY, W/ Routine 06/10/2016 3:17 PM Macular pucker, MEMBRANE STRIPPING, EST bilateral INTRAOCULAR TAMPONADE documented in this encounter Results OCT Cwgkch-EQ-MOGI EYES (06/20/2016 2:43 PM EST) Anatomical Region [...] bilateral - Primary Macular puckering of retina Colon cancer metastasized to liver Malignant neoplasm of colon, unspecified site documented in this encounter Care Teams Import Export Clerk Relationship Specialty Start Date End Date Berkley Madrigal MD PCP - General 04/13/10 02/15/18 AYLEEN D [address] [place] [address] documented as of this encounter
--- OUTSIDE RECORDS SUMMARY | 2022-03-25 01:29 | XMS_ITS | Encounter Summary ---
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 Neurology 3c [facility] [place] [address] [place] [address] Referral ID Status Reason Start Expiration Visits Visits Date Date Requested Authorized [id number] Duplicate Consult, 07/22/2016 07/22/2017 1 1 Referral Test & Treat Reason for Visit Reason Comments Numbness left sided Auth/Cert Specialty Diagnoses / Procedures Referred By Contact Refer red To Contact Diagnoses CLL (chronic lymphocytic leukemia) Pulmonary embolism Referral ID Status Reason Start Date Expiration Date Visits Requ ested Visits Authorized [id number] 1 1 Encounter Details Date Type Department Care Team Description 07/14/2016 - Hospital Encounter 1 Jaylon Gregg MD [address] [place] [address] CLL (chronic lymphocytic leukemia); 07/22/2016 [facility] Regina Hill MD [facility] [place] [address] Acute saddle pulmonary embolism with acu te cor pulmonale; [facility] [place] [address] 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 1 capsule Refills: 0 umzkwuqs-ivvtcapya-nvacmrixbwanj 3.5 mg/g-10,000 unit/g-0.1 % Oint Commonly known [...] Provider Department Center 08/19/2016 10:30 AM Lamine Rcoha PA [facility] Neuro [facility] 09/26/2016 2:45 PM LABORATORY, TECH [facility] Inf 3K [facility] 09/26/2016 3:45 PM Alan Livingston MD [facility] Hem Onc [facility] Date and Time Provider and Specialty Location 08/04/16 3pm Berkley Madrigal MD , PCP KRYSTLE Katarina [address] / [facility] [address] Your Inpatient Doctor(s) at [facility]: No att. providers found Josr Chapman MD Li, Eileena, MD Your Primary Care Provider: Berkley Madrigal MD KRYSTLE Katarina [address] / [place] [address] For questions regarding this document or issues relating to this hospitalization on the Medical Service, please contact your inpatient physician through the [facility] Party Director . Issues after hours and on weekends will be handled by the Hospitalist staff on-call. General Instructions None Future Appointments and Orders Future Appointments Provider Department Dept Phone 08/19/2016 10:30 AM Lamine Rocha PA Neurology [phone] 09/26/2016 2:45 PM LABORATORY, TECH [facility] Hem Onc 3K [phone] 09/26/2016 3:45 PM Nilam So, [facility]; Alan Livingston MD Leb Hem Onc [phone] Future Orders Complete By Expires Referral to [...] Contact Information: Berkley Madrigal MD KRYSTLE D [address] / [facility] [address] For questions regarding this document or issues relating to this hospitalization on the Medical Service, please contact your inpatient physician through the [facility] Party Director . Issues after hours and on weekends [...] Berkley Madrigal MD , PCP KRYSTLE Bray [address] / [place] [address] Your Inpatient Doctor(s) at [facility]: No att. providers found Josr Chapman MD Li, Eileena, MD Your Primary Care Provider: MD ISMA Gray [address] / [place] [id number] For questions regarding this document or issues relating to this hospitalization on the Medical Service, please contact your inpatient physician through the [facility] Party Director . Issues after hours and on weekends [...] spent >30 minutes (Day of Discharge Code 41801) involved in the final examination of the patient, discussion of the hospital stay, instructions for continuing care to all relevant caregivers, and preparation of discharge records, prescriptions and referral forms. Plans ? Discharge to [facility] ? Follow-up scheduled with - referred to neurology, hematology follow-up ? Please see the Discharge Summary for complete details of any medication changes and additional plans. Nina Vizcaino RN - 07/22/2016 3:05 PM EST NINA BUTTS RN CASE MANAGER PAGER [phone] Case reviewed with interdisciplinary team and eDH. Patient being transferred to [facility]. Daughter here and will be providing transportation. An Important Message From Medicare about Your Rights letter reviewed with pt and pt signed acknowledgment and was provided copy E Ruby, August - 07/22/2016 3:04 PM EST Office of Care Management/Gis Coordinator Patient Name: Carol Keller : 1950 Patient has been offered a swing bed at [facility] for today. Family will transport. MD to MD to Dr. Gaytan at [phone]. Please call Nursing Report to [phone], ask for agricultural equipment design engineer. Info to accompany patient: Narcotic Prescriptions Copies of Medication Administration Records and IV sheets for past 10 days. Plan: Gis Coordinator will be available to the patient and Bill Distributor-RN and/or Program Trainer for further assistance. Patient will be discharged to: [address] [place] [address] Aixa Ruby Gis Coordinator Pati Vazquez RN - 07/22/2016 2:44 PM EST A+O. VSS. Pt had a large BM this afternoon. Pt ambulating with a SBA with a walker. Discharge ordersplaced, PIV removed per policy. Pt going to [facility] for a SNF bed. AVS reviewed by this RN. Pt to be transferred to [facility] via daughter in personal vehicle. Report called to [facility]. Nina Vizcaino RN - 07/22/2016 12:30 PM EST NINA BUTTS RN CASE MANAGER PAGER [phone] Case reviewed with interdisciplinary team and in eDH. Patient is medically ready for discharge today. Treated for pulmonary embolus, Right CVA, occular and Left thigh hematoma. Clinically stable. She would like placement at [facility]. She was declined for acute rehab [...] am, doing well, no new complaints. Denies CAI/focal weaknesses/ numbness/ tingling. No SOB, CP. Inpatient Medications: Reviewed in JUL, notable for: Scheduled Meds: ??? polyethylene glycol (MIRALAX)oral powder 17 g Oral BID ??? bisacodyl 10 mg Rectal Daily ??? vsytaheg-midzwwqqo-bmqophaiizdpb 1 Tube Right Eye BID ??? senna [...] their contact info is below. Cheyanne Arianna [phone] Parker Arianna [phone] - Dispo: Pending dc to rehab Kareen Deluca MD 07/22/2016 Internal Medicine Team Pager [phone] Lizeth Campbell MD - 07/21/2016 6:34 AM [...] ??? bisacodyl 10 mg Rectal Daily ??? hggecktg-dyvljswkm-senqaugyefwhp 1 Tube Right Eye BID ??? senna [...] their contact info is below. Cheyanne Arianna [phone] Parker Arianna [phone] - Dispo: Pending dc to rehab Kareen Deluca MD 07/21/2016 Internal Medicine Team Pager [phone] Attending Attestation ? Please see Dr. Deluca's [...] will be on AC regardless unlikely to private branch exchange installer - will hold on TTE with bubble. [...] / appropriate for Occupational Therapy Services. Pager [phone] Karin Baer. LUCRECIA Seth/Bridger Occupational Therapy Rehabilitation [...] drop Right Eye 4 Times Daily ??? walnjiys-poyleeuew-lyfybbxyhlrye 1 Tube Right Eye Nightly ??? pantoprazole [...] their contact info is below. Cheyanne Keller [phone] Parker Keller [phone] - Dispo: Pending dc to rehab Kareen Deluca MD 07/20/2016 Internal Medicine Team Pager [phone] Attending Attestation ? Please see Dr. Deluca's [...] will be on AC regardless unlikely to private branch exchange installer - will hold on TTE with bubble. [...] discharge. ?? I have met with the patient/equal opportunity representative to discuss discharge planning needs. I have provided the [facility], Office of Care Management letter from the School Office Assistant pertaining to rehab referrals. I have also provided a letter describing our affiliations within the [facility] and educated them about their right to choose where referrals are placed. ?? I reviewed the different levels of rehab including SNF, swing, acute and LTAC with the patient/equal opportunity representative. ?? The patient/equal opportunity representative has been provided a list of facilities within their preferred geographic area. ?? I have requested that the patient/equal opportunity representative provide at least three choices for referral. ?? The patient/equal opportunity representative have requested referrals to: ?? 1. [facility] (for acute rehab only) ?? [facility] ?? 3. ?? Expected date of discharge: Monday Note routed to Gis Coordinator who will communicate referrals to facilities and provide any required information. Office of Case Management- Social Work Note ADÁN Pond Pager [phone] Lizeth Bah MD - 07/19/2016 7:06 AM [...] drop Right Eye 4 Times Daily ??? vulwdqrz-iwvhrpvbr-dizjeynavaobf 1 Tube Right Eye Nightly ??? pantoprazole [...] she will be anticoagulated, this would unlikely private branch exchange installer. Plan ?? Saddle PE s/p TPA: - [...] their contact info is below. Cheyanne Arianna [phone] Parker Arianna [phone] - Dispo: Pending course, pain mgm Kareen Deluca MD 07/19/2016 Internal Medicine Team Pager [phone] Attending Attestation ? Please see Dr. Deluca's [...] soft. LE duplex pending though unlikely to private branch exchange installer unless need to consider filter if not [...] will be on AC regardless unlikely to private branch exchange installer - will hold on TTE with bubble. 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 HENRY Child, OTR/L Pager [phone] Maria M Traore, PT - 07/18/2016 2:51 [...] drop Right Eye 4 Times Daily ??? ajqiauql-vckwjdplt-gjagvzsdzqxxk 1 Tube Right Eye Nightly ??? pantoprazole [...] L Elbow flexion 5/5 R, 5/5 L Internet Marketing Specialist LE: 5/5 R, 5/5 L Hip flexion [...] CTA Chest to r/o PE or dissection-COMPLETED -PT/OT/MANAGER RETAIL STORE -Heparin gg -RBOs -SCDs ?? Maximiliano Rico MD PGY-2 Neurology Pager [phone] Associated attestation - Brittnee Granados MD - [...] as documented. Brittnee Granados MD [facility] - 07/18/2016 6:51 AM EST [...] drop Right Eye 4 Times Daily ??? vxzsqxje-nqqiekwoe-parecxgbtjcvg 1 Tube Right Eye Nightly ??? pantoprazole [...] their contact info is below. Cheyanne Keller [phone] Parker Keller [phone] - Dispo: Pending course, pain mgm Kareen Deluca MD 07/18/2016 Internal Medicine Team Pager [phone] Attending Attestation ? Please see Dr. Deluca's [...] bleeding). LE duplex pending though unlikely to private branch exchange installer unless need to consider filter if not [...] will be on AC regardless unlikely to private branch exchange installer - will hold on TTE with bubble. [...] of two midnights or is on the [facility] inpatient only procedure list (status C) due [...] drop Right Eye 4 Times Daily ??? suiwdghw-sbcaiklmz-scwzygxpbbade 1 Tube Right Eye Nightly ??? pantoprazole [...] their contact info is below. Cheyanne Arianna [phone] Parker Arianna [phone] - Dispo: Pending course ROZ COWART MD 07/17/2016 Internal Medicine Team Pager [phone] Attending Attestation ?? Please see Dr. Cowart's [...] will be on AC regardless unlikely to private branch exchange installer - will hold on TTE with bubble. [...] drop Right Eye 4 Times Daily ??? pjdhlubj-bvxehjena-xspbelbnfcdzi 1 Tube Right Eye Nightly ??? pantoprazole [...] their contact info is below. Cheyanne Arianna [phone] Parker Arianna [phone] - Dispo: Pending course Kareen Deluca MD 07/16/2016 Internal Medicine Team Pager [phone] Attending Attestation Please see Dr. Deluca's note [...] will be on AC regardless unlikely to private branch exchange installer - will hold on TTE with bubble. [...] the right eye 4 times daily. ??? ifmujinz-rxkwxinde-nrfckelnewqyg (DEXACINE) 3.5 mg/g-10,000 unit/g-0.1 % Ointment Place [...] L Elbow flexion 5/5 R, 5/5 L Internet Marketing Specialist LE: 5/5 R, 5/5 L Hip flexion [...] CTA Chest to r/o PE or dissection-COMPLETED -PT/OT/MANAGER RETAIL STORE -Heparin gg -RBOs -SCDs Fariha Bennett MD PGY-2 Neurology Resident Vascular Neurology Pager [phone] Neurology Attending I saw and evaluated the [...] above Anoop Palafox MD Department of Neurology [place] [phone] Pager [phone] Email: [email or web address] Priscilla Tinoco RN - [...] the right eye 4 times daily. ??? avbwbprv-vsryyeyff-niteokgddqjnb (DEXACINE) 3.5 mg/g-10,000 unit/g-0.1 % Ointment Place [...] L Elbow flexion 5/5 R, 5/5 L Internet Marketing Specialist LE: 5/5 R, 5/5 L Hip flexion [...] CTA Chest to r/o PE or dissection-COMPLETED -PT/OT/MANAGER RETAIL STORE -Heparin gg -RBOs -SCDs Jc Martinez MD PGY-2 Neurology Resident Vascular Neurology Pager [phone] Associated attestation - Brittnee Granados MD - 07/15/2016 11:24 PM EST [...] epiretinal membrane and macular hole) whopresents to [facility] for dyspnea and left sided neurological deficits. [...] drop Right Eye 4 Times Daily ??? lfaszyoq-erckgglxv-akyhciubwburz 1 Tube Right Eye Nightly ??? pantoprazole [...] s/p vitrectomy (macular hole) who presents to [facility] for dyspnea and left sided neurological deficits [...] symptoms much improved and presentation seems more equal opportunity representative of TIA, though tPA was given outside of therapeutic window. Will proceed with imaging today, MRA head and neck. Given HDS (mildly hypotensive) and lack of O2 requirement, will transfer to [facility] today. Summary for today - Transfer to [facility], HDS + no longer requiring O2 - [...] their contact info is below. Cheyanne Arianna [phone] Parker Arianna [phone] - Dispo: ICU status for monitoring, discharge pending clinical course ?? Dayron Deluca M.D. Internal Medicine, PGY-1 ICU Blue Team, Team Pager [phone] Associated attestation - Regina Hill MD - [...] Medicine - Admission History & Physical - [facility] team 4400 Presenting diagnosis/chief complaint: submassive PE [...] the right eye 4 times daily. ??? zmszxxwv-kwguyulnc-jjziammiwcxdv (DEXACINE) 3.5 mg/g-10,000 unit/g-0.1 % Ointment Place [...] 0.1 x10(3)/mcL Immature Gran % 0.30 % Claduia Gran Abs 0.57 (H) 0.00 - 0.04 [...] their contact info is below. Cheyanne Arianna [phone] Parker Arianna [phone] - Dispo: Floor JOSR WU MD 07/15/2016 Pager [phone] I have seen the patient and reviewed [...] of two midnights or is on the [facility] inpatient only procedure list (status C) due [...] Hill MD PCP: Berkley Madrigal MD PCP#: [phone] CC: Dyspnea Patient Active Problem List Diagnosis [...] membrane and macular hole) who presents to [facility] for dyspnea and left sided neurological deficits. [...] called for EMS. While in transit to [facility], she noted that around 8:20AM, her left [...] 16.33) performed by Pavan Coffey MD at [facility] MA[facility] OR Medications: No current facility-administered medications on file prior to encounter. Current Outpatient Prescriptions on File Prior to Encounter Medication Sig Dispense Refill ??? moxifloxacin (VIGAMOX) 0.5 % Drops Place 1 drop into the right eye 4 times daily. ??? prednisoLONE acetate (PRED FORTE) 1 % Drops, Suspension Place 1 drop into the right eye 4 times daily. ??? ltwbxmrk-yrhwhjwdd-twwrapnrcrngx (DEXACINE) 3.5 mg/g-10,000 unit/g-0.1 % Ointment Place [...] membrane and macular hole) who presents to [facility] for dyspnea and left sided neurological deficits. [...] their contact info is below. Cheyanne Keller [phone] Parker Keller [phone] - Dispo: ICU status for monitoring, discharge pending clinical course Dayron Deluca M.D. Internal Medicine, PGY-1 ICU Blue Team, Team Pager [phone] Jc Martinez MD - 07/14/2016 8:20 AM [...] the right eye 4 times daily. ??? jsbjltej-idwodbjkt-xdruavmvpviii (DEXACINE) 3.5 mg/g-10,000 unit/g-0.1 % Ointment Place [...] 16.33) performed by Pavan Coffey MD at [facility] OR Home Medications: No current facility-administered medications on file prior to encounter. Current Outpatient Prescriptions on File Prior to Encounter Medication Sig Dispense Refill ??? moxifloxacin (VIGAMOX) 0.5 % Drops Place 1 drop into the right eye 4 times daily. ??? prednisoLONE acetate (PRED FORTE) 1 % Drops, Suspension Place 1 drop into the right eye 4 times daily. ??? vbnlnvwd-drwpshbpb-bsetqgomvsbfl (DEXACINE) 3.5 mg/g-10,000 unit/g-0.1 % Ointment Place [...] L Elbow flexion 5/5 R, 5/5 L Internet Marketing Specialist LE: 5/5 R, 5/5 L Hip flexion [...] Quantitative Result Value Ref Range D-Dimer, Quant >34380 (CRIT) 0 - 500 FEU ng/ml Scan, [...] and hem/onc due to patient's medical cinditions -PT/OT/MANAGER RETAIL STORE -Lovenox 40mg SC daily -RBOs -SCDs Jc Martinez MD PGY-2 Neurology Resident Vascular Neurology Pager [phone] Associated attestation - Brittnee Granados MD - [...] Patient seen under the supervision of Dr. Jalyon Candelario - Medications, allergies and past medical [...] maintain SpO2>92%. John Chew MD Resident 07/14/16 9097 ED ATTENDING ATTESTATION NOTE The patient was [...] interventions, and documentation. Cody Candelario MD 07/16/16 9446 documented in this encounter Miscellaneous Notes Plan [...] tasks sitting in bathroom with assist from HOME HEALTH CLINICIAN this morning. 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 Precautions/Restrictions: fall (pain, bleeding precautions) , pt allowed short time in supine (procedures), cont. With(L) sidelying Anticipated Physical Therapy Frequency: 3-5 times/wk Pager:[phone] MARIA M TRAORE, PT 07/21/2016 Inpatient Physical Therapy Problem: Acute Rehab Services Goal & Intervention Plan Goal: Bed Mobility Goal Stand Alone Therapy Goal Outcome: Ongoing (Interventions Implemented as Appropriate) 07/19/16 1044 Bed Mobility Goal Bed Mobility Goal, Date Established 07/19/16 Bed Mobility Goal, Time to Achieve 1 wk Bed Mobility Goal, Activity Type supine to sit/sit to supine Bed Mobility Goal, [place] Level supervision required;set up required Bed Mobility Goal, Assistive Device (HOB ~30 degrees) Goal: Gait Training Goal Stand Alone Therapy Goal Outcome: Ongoing (Interventions Implemented as Appropriate) 07/19/16 1044 07/21/16 1420 Gait Training Goal Gait Training Goal, Date Established 07/19/16 -- Gait Training Goal, Time to Achieve 2 wks -- Gait Training Goal, [place] Level supervision required;verbal cues required -- Gait [...] wks -- Transfer Training Goal, Activity Type yld-yf-mlgxr/ozvwi-gu-azu;ful-al-wjzri/ujfio-we-lgz -- Transfer Train Goal, [place] Level supervision required;verbal cues required -- Transfer [...] Anticipated Discharge Disposition: inpatient rehabilitation facility Pager: [phone] THERESA Muñiz 07/21/2016 Occupational Therapy Rehabilitation Department [...] good effect. Pain decreased to 3-4/10 following medical record librarians teacher per pt report. 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 Precautions/Restrictions: fall (no supine positioning, allowed prone and (L) sidelying only) Anticipated Physical Therapy Frequency: 3-5 times/wk Pager: [phone] MARIA M TRAORE, PT 07/19/2016 Inpatient Physical Therapy Problem: Acute Rehab Services Goal & Intervention Plan Goal: Bed Mobility Goal Stand Alone Therapy Goal Outcome: Ongoing (Interventions Implemented as Appropriate) 07/19/16 1044 Bed Mobility Goal Bed Mobility Goal, Date Established 07/19/16 Bed Mobility Goal, Time to Achieve 1 wk Bed Mobility Goal, Activity Type supine to sit/sit to supine Bed Mobility Goal, [place] Level supervision required;set up required Bed Mobility Goal, Assistive Device (HOB ~30 degrees) Goal: Gait Training Goal Stand Alone Therapy Goal Outcome: Ongoing (Interventions Implemented as Appropriate) 07/19/16 1044 Gait Training Goal Gait Training Goal, Date Established 07/19/16 Gait Training Goal, Time to Achieve 2 wks Gait Training Goal, [place] Level supervision required;verbal cues required Gait Training Goal, Assist Device walker, rolling Gait Training Goal, Distance to Achieve 50' Gait Training Goal, Outcome goal ongoing Goal: Goal Transfer Training Stand Alone Therapy Goal Outcome: Ongoing (Interventions Implemented as Appropriate) 07/19/16 1044 Goal Transfer Training Transfer Training Goal, Date Established 07/19/16 Transfer Training Goal, Time to Achieve 2 wks Transfer Training Goal, Activity Type llo-fi-vdiuw/bgqun-fa-jga;eak-nx-wpqrn/eavli-nu-uua Transfer Train Goal, [place] Level supervision required;verbal cues required Transfer Training [...] Pt cooperative and motivated toget OOB. Pt iistio-ov-zfs with conditional independence and use of leg mail distributor, but c/o pain. Able tostand with CGA [...] patient treatment session. 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 The patient was noted to by [...] 16.33) performed by Pavan Coffey MD at [facility] OR Medications: Prescriptions Prior to Admission Medication Sig Dispense Refill Last Dose ??? moxifloxacin (VIGAMOX) 0.5 % Drops Place 1 drop into the right eye 4 times daily. 07/14/2016 at Unknown time ??? prednisoLONE acetate (PRED FORTE) 1 % Drops, Suspension Place 1 drop into the right eye 4 times daily. 07/14/2016 at Unknown time ??? bncmltfy-kbghjgdjx-zquekxibwgtez (DEXACINE) 3.5 mg/g-10,000 unit/g-0.1 % Ointment Place [...] CLL and age, I would favor considering intermediate school teacher anticoagulation after completion of the initial 3-6 [...] warfarin, apixaban) can be considered for the nursing home. We do not see a good reason to continue concurrent aspirin as aspirin adds little to antithrombotic efficacy but much to bleeding risk in this case. Thanks for the consult. We will communicate our recommendations with her outpatient Bit Tapper. Stefania Ingram MD School Office Assistant, [facility] Consult Note - [...] Please contact GRAYSON GALE RN on pager [phone] or the wound care team at [phone] or pager [phone] with skin and wound care concerns or [...] heparin, ASA, Protonix, Vigamox 4/0, PF 4/0, rlm-hrqf-rij ointment hs/0 All: PCN, Sulfa SH: Here [...] assistance. Tor Gale MD Section of Ophthalmology [facility] page: [phone], office: [phone] Associate Provider Student Progress Note - Leandra [...] 16.33) performed by Pavan Coffey MD at [facility] OR Significant Family History: Family History [...] times daily. 07/14/2016 at Unknown time ??? ncwbpsvc-ezfqvlfol-fmvzyndyrvsdi (DEXACINE) 3.5 mg/g-10,000 unit/g-0.1 % Ointment Place [...] Quantitative Result Value Ref Range D-Dimer, Quant >[id number] (CRIT) 0 - 500 FEU ng/ml Scan, [...] some thought. Declines a visit from a cutter machine or a Instructional Technology Instructor at this time. Current Functional Ability: Laying on her left side, joking. 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 Home Environment: [...] but states she would like to use [facility]. She has not been to a physical [...] order, but local, [employer] [facility] Other: No. Primary Care Provider: Berkley Madrigal MD [phone] Patient/Caregiver Goals of Treatment: To get out of here as soon as possible. Potential Needs for Transition of Care: Rehab/SNF: TBD, patient would rather go home and declined choices at this time. Home Health: TBD, would like [facility] if needed. DME: No. Dialysis: no Community Resources: no Transportation: Her children. Other: No Anticipated Barriers to Discharge/Special Considerations: No. Plan: A member of the Care Management team will continue to monitor progress, follow for continuity of care and assist with transition of care planning. ADÁN FRANCIS Pager: [phone] documented in this encounter Plan of Treatment Upcoming Encounters Date Type Specialty Care Team Description 03/25/2022 Office Visit Hematology and Ángel Fischer MD [facility] [place] [address] Oncology Alyssa Joseph[address] [place] [address] 03/25/2022 Infusion Hematology and Oncology 03/31/2022 Office Visit Hematology and Alan Livingston M D [facility] HEMATOLOGY/[place] [address] Oncology Nilam So [facility] HEMATOLOGY/[place] [address] 04/15/2022 Office Visit Hematology and Ángel Fischer, Oncology [facility] ONCOLOGY [place], [place] [address] (Wo rk) 04/15/2022 Infusion Hematology and Oncology 04/15/2022 Office Visit Hematology and Jazzy Armendariz R D Oncology [facility] HEMATOLOGY AND ONCOLOGY [place], [place] [address] (Wo rk) 09/05/2022 Scheduled View Only Obstetrics and Nurse, Julian COLEMAN, sail lay out worker 09/05/2022 Office Visit Obstetrics and Shazia Whitley APRN Gynecology [facility] UROGYNECOLOGY [place], [place] [address] (Wo rk) Pending Results Name Type Priority Associated Diagnoses [...] procedure are i n the results section. STAMP MOUNTER SCAN 07/23/2016 12:00 Res ults for this [...] section. TYPE AND SCREEN Routine 07/18/2016 12:32 ([facility]) PM EST PREPARE RBC Routine 07/18/2016 11:40 [...] section. TYPE AND SCREEN STAT 07/14/2016 8:47 ([facility]) AM EST SCAN, PERIPHERAL BLOOD STAT 07/14/2016 [...] documented in this encounter Results SCAN DOC: STAMP MOUNTER (07/23/2016 12:00 AM EST) Narrative 07/23/2016 12:00 [...] CK, Total 350 (H) 0 - 160 [facility] LABORATORY Specimen Anatomical Collection Method Collection Time Receive d Time (Source) Location / / Volume Laterality Blood specimen 07/22/2016 4:26 AM 017 4:42 (specimen) EST AM EST Resulting Agency Comment Spec In Lab Lizeth Campbell MD CHEMISTRY ORDERABLES Performing Organization Address City/State/[place] [address] (ABNORMAL) Hemogram (07/22/2016 4:26 AM EST) athologist Signature WBC 146.2 4.0 - 9.5 [facility] (Critical) x10(3)/[facility] LABORATORY Comment: Please note: Patients with WBC greater t jaeger 100,000 may have falsely elevated potassium levels. Contact the Clinical C hemistry Laboratory if there are any questions. RBC 2.84 (L) 4.00 - 5.21 x10(6)/[facility] LABORATORY Hemoglobin 7.9 (L) 11.7 - 15.5 gm/dL [facility] LABORATORY Hematocrit 27.0 (L) 35.7 - 45.8 % [facility] LABORATORY MCV 95.1 (H) 82.6 - 94.4 fL [facility]OR[facility]ORY MCH 27.8 27.1 - 32.0 pg [facility]ORATORY MCHC 29.3 (L) 31.7 - 35.0 gm/dL [facility] LABORATORY Platelets 280 145 - 357 x10(3)/[facility] LABORATORY RDWSD 54.6 (H) 37.0 - 46.0 fL [facility] LABORATORY RDWCV 17.0 (H) 11.5 - 14.1 % [facility] LABORATORY MPV 10.3 7.6 - 12.[address] [facility] LAB[facility] nRBC % Auto 0.0 % [facility] LABORATORY nRBC Abs Auto 0.000 0.000 - 0.000 x10(3)/[facility] LABORATORY Specimen Anatomical Collection Method Collection Time Receive d Time (Source) Location / / Volume Laterality Blood specimen 07/22/2016 4:26 AM 017 4:42 (specimen) EST AM EST Resulting Agency Comment Spec In Lab Lizeth Campbell MD HEMATOLOGY ORDERABLES Performing Organization Address City/State/[place] [address] Abdomen & Pelvis [...] i s left knee osteoarthritis characterized by hrqrdk-qgdnxqj-jnyk-lateral joint spa ce narrowing and subchondral sclerosis. [...] i s left knee osteoarthritis characterized by bufuim-vlsvmmx-atjs-lateral joint spa ce narrowing and subchondral sclerosis. [...] ORDERABLES (ABNORMAL) Hemogram (07/21/2016 5:28 AM EST) athologist Signature WBC 138.7 4.0 - 9.5 [facility] (Critical) x10(3)/[facility] LABORATORY Comment: Please note: Patients with WBC greater t jaeger 100,000 may have falsely elevated potassium levels. Contact the Clinical C hemistry Laboratory if there are any questions. RBC 2.71 (L) 4.00 - 5.21 x10(6)/[facility] LABORATORY Hemoglobin 7.6 (L) 11.7 - 15.5 gm/dL [facility] LABOR[facility]ORY Hematocrit 24.9 (L) 35.7 - 45.8 % [facility] MCV 91.9 82.6 - 94.4 fL [facility] MCH 28.0 27.1 - 32.0 pg [facility] LAB[facility] MCHC 30.5 (L) 31.7 - 35.0 gm/dL [facility] LABORATORY Platelets 221 145 - 357 x10(3)/[facility] LABORATORY RDWSD 53.4 (H) 37.0 - 46.0 fL [facility] LABORATORY RDWCV 17.3 (H) 11.5 - 14.1 % [facility] LAB[facility] MPV 10.4 7.6 - 12.[address] [facility] nRBC % Auto 0.0 % [facility] LABORATORY nRBC Abs Auto 0.000 0.000 - 0.000 x10(3)/[facility] LABORATORY Specimen Anatomical Collection Method Collection Time Receive d Time (Source) Location / / Volume Laterality Blood specimen 07/21/2016 5:28 AM 017 5:56 (specimen) EST AM EST Resulting Agency Comment Spec In Lab Lizeth Campbell MD HEMATOLOGY ORDERABLES Performing Organization Address City/State/ZIP Code Phon e Number [place] [id number] MRI Angiogram Neck wwo [...] MRI the brain without contras t, MRA campo of [place] without contrast, MRI neck with [...] change involves the right g lobe. MRA campo of [place]: The intracranial v essels are [...] MRI the brain without contras t, MRA campo of [place] without contrast, MRI neck with [...] change involves the right g lobe. MRA campo of [place]: The intracranial v essels are [...] MRI the brain without contras t, MRA campo of [place] without contrast, MRI neck with and without [...] left frontal lobe that extends into the jacskon radiata. No significant mass effect. The ventricles are normal size a nd configuration. Midline structures appear normal. Paranasal sinuses are mos tly clear as are the mastoid air cells. Postsurgical change involves the right g lobe. MRA campo of [place]: The intracranial v essels are [...] MRI the brain without contras t, MRA campo of [place] without contrast, MRI neck with [...] change involves the right g lobe. MRA campo of [place]: The intracranial v essels are normal course [...] No significant vascular abnormalities. Lizeth Campbell MD [facility] MRI ORDERABLES Prepare RBC (07/20/2016 11:05 AM EST) P athologist Signature Dispensed? Yes [facility] LABORATORY Specimen Anatomical Collection Method Collection Time Receive d Time (Source) Location / / Volume Laterality Blood specimen 07/20/2016 11:05 7 (specimen) AM EST 11:05 AM EST Resulting Agency Comment Spec In Lab Lizeth Campbell MD BLOOD BANK ORDERABLES Performing Organization Address City/State/[place] [address] (ABNORMAL) Hemogram (07/20/2016 7:04 AM EST) P athologist Signature WBC 142.5 4.0 - 9.5 [facility] (Critical) x10(3)/[facility] LABORATORY Comment: Please note: Patients with WBC greater t jaeger 100,000 may have falsely elevated potassium levels. Contact the Clinical C hemistry Laboratory if there are any questions. RBC 2.52 (L) 4.00 - 5.21 x10(6)/[facility] LABORATORY Hemoglobin 7.0 (L) 11.7 - 15.5 gm/dL [facility] LABORATORY Hematocrit 23.7 (L) 35.7 - 45.8 % [facility] LABORATORY MCV 94.0 82.6 - 94.4 [facility] LABORATORY MCH 27.8 27.1 - 32.0 pg [facility] LABORATORY MCHC 29.5 (L) 31.7 - 35.0 gm/dL [facility] LABORATORY Platelets 191 145 - 357 x10(3)/[facility] LABORATORY RDWSD 54.4 (H) 37.0 - 46.0 [facility] LABORATORY RDWCV 17.6 (H) 11.5 - 14.1 % [facility] LABORATORY MPV 10.4 7.6 - 12.9 [facility] LABORATORY nRBC % Auto 0.0 % [facility] LABORATORY nRBC Abs Auto 0.000 0.000 - 0.000 x10(3)/[facility] LABORATORY Specimen Anatomical Collection Method Collection Time Receive d Time (Source) Location / / Volume Laterality Blood specimen 07/20/2016 7:04 AM 017 7:08 (specimen) EST AM EST Resulting Agency Comment Spec In Lab Lizeth Campbell MD HEMATOLOGY ORDERABLES Performing Organization Address City/State/[place] [address] (ABNORMAL) CMP w/fasting Glucose (07/19/2016 4:48 AM EST) athologist Signature Glucose 138 (H) 65 - 99 [facility] Fasting mg/dL [facility] LABORATORY Comment: ?Fasting* Glucose Interpretive C [...] of Diabetes Mellitus, Position Statement from the [place] [employer]. ??Diabete s Care, Volume 33, Supplement 1, May 2009 BUN 10 8 - 18 mg/dL [facility] LABORATORY Creatinine 0.67 (L) 0.70 - 1.20 mg/dL [facility] LABORATORY Comment: Please note that the pediatric reference intervals supplied above were not validated at [facility]. Results from pediatri c patients should be interpreted in conjunction to the patient's age, height and muscle mass. Sodium 142 135 - 145 mmol/L [facility] LABORATORY Potassium See Note 3.5 - 5.0 mmol/L [facility] LABORATORY Comment: Patient WBC >100K , Needs [...] estions. Chloride 105 98 - 107 mmol/L [facility] CO2 25 22 - 31 mmol/L [facility]OR[facility] Anion Gap 12 5 - 15 mmol/L [facility] Calcium 7.9 (L) 8.5 - 10.5 mg/dL [facility] Total Protein 5.0 (L) 6.1 - 8.0 gm/dL [facility] LABORATORY Albumin 2.8 (L) 3.2 - 5.2 gm/dL [facility] LABORATORY AST 54 (H) 0 - 30 unit/L [facility] ALT 46 (H) 0 - 30 unit/L [facility] Alk Phos 53 40 - 104 unit/L [facility] Total Bilirubin 0.7 0.2 - 1.3 mg/dL [facility] LABORATORY Bili, Direct 0.1 0.0 - 0.3 mg/dL [facility] LABORATORY Estimated GFR >60 >=60 [facility] LABORATORY Comment: This estimated GFR (eGFR) [...] the following links into your internet browser. [email or web address] [email or web address] Specimen Anatomical Collection Method Collection Time Receive d Time (Source) Location / / Volume Laterality Blood specimen 07/19/2016 4:48 AM 017 4:58 (specimen) EST AM EST Resulting Agency Comment Spec In Lab Lizeth Campbell MD CHEMISTRY ORDERABLES Performing Organization Address City/State/[place] [address] (ABNORMAL) Hemogram (07/19/2016 4:48 AM EST) athologist Signature WBC 130.4 4.0 - 9.5 [facility] (Critical) x10(3)/[facility] LABORATORY Comment: Please note: Patients with WBC greater t jaeger 100,000 may have falsely elevated potassium levels. Contact the Clinical C hemistry Laboratory if there are any questions. RBC 2.64 (L) 4.00 - 5.21 x10(6)/[facility] LABORATORY Hemoglobin 7.5 (L) 11.7 - 15.5 gm/dL [facility] LABORATORY Hematocrit 23.9 (L) 35.7 - 45.8 % [facility] LABORATORY MCV 90.5 82.6 - 94.4 fL [facility] LABOR[facility] MCH 28.4 27.1 - 32.0 pg [facility] LABORATORY MCHC 31.4 (L) 31.7 - 35.0 gm/dL [facility] LABORATORY Platelets 154 145 - 357 x10(3)/[facility] LABORATORY RDWSD 52.6 (H) 37.0 - 46.0 [facility] LABORATORY RDWCV 17.3 (H) 11.5 - 14.1 % [facility] LABORATORY MPV 10.4 7.6 - 12.[address] [facility] LABOR[facility]ORY nRBC % Auto 0.0 % [facility] LABORATORY nRBC Abs Auto 0.020 (H) 0.000 - 0.000 x10(3)/[facility] LABORATORY Specimen Anatomical Collection Method Collection Time Receive d Time (Source) Location / / Volume Laterality Blood specimen 07/19/2016 4:48 AM 017 4:58 (specimen) EST AM EST Resulting Agency Comment Spec In Lab Lizeth Campbell MD HEMATOLOGY ORDERABLES Performing Organization Address City/State/[place] [address] Transfuse RBC (07/18/2016 4:59 PM EST) Lizeth Campbell MD NURSING TREATMENT ORDERABLES - BLOOD ADMIN Transfuse RBC (07/18/2016 4:59 PM EST) Lizeth Campbell MD NURSING TREATMENT ORDERABLES - BLOOD ADMIN ABORH Recheck Status (07/18/2016 12:32 PM EST) [facility] Method Time Signature ABORH Type Completed [facility] LABORATORY Specimen Anatomical Collection Method Collection Time Receive d Time (Source) Location / / Volume Laterality Blood specimen 07/18/2016 12:32 7 (specimen) PM EST 12:47 PM EST Resulting Agency Comment Spec In Lab Lizeth Campbell MD BLOOD BANK ORDERABLES Performing Organization Address City/[facility]/ZIP Code Phon e Number [address] Antibody screen (07/18/2016 12:32 PM EST) [facility] Method [place] Signature Ab Screen Negative [facility] LABORATORY Expires at 07/21/2016 [facility] [id number] on: [facility] LABORATORY Specimen Anatomical Collection Method Collection Time Receive d Time (Source) Location / / Volume Laterality Blood specimen 07/18/2016 12:32 7 (specimen) PM EST 12:47 PM EST Resulting Agency Comment Spec In Lab Lizeth Campbell MD BLOOD BANK ORDERABLES Performing Organization Address City/[facility]/[place] [address] ABO/Rh Typing (07/18/2016 12:32 PM EST) P athologist Signature ABORh Type A Neg [facility] LABORATORY Specimen Anatomical Collection Method Collection Time Receive d Time (Source) Location / / Volume Laterality Blood specimen 07/18/2016 12:32 7 (specimen) PM EST 12:47 PM EST Resulting Agency Comment Spec In Lab Lizeth Campbell MD BLOOD BANK ORDERABLES Performing Organization Address City/[facility]/ZIP Code Phon e Number [address] Prepare RBC (07/18/2016 11:40 AM EST) P athologist Signature Dispensed? Yes [facility] LABORATORY Specimen Anatomical Collection Method Collection Time Receive d Time (Source) Location / / Volume Laterality Blood specimen 07/18/2016 11:40 7 (specimen) AM EST 11:40 AM EST Lizeth Campbell MD BLOOD BANK ORDERABLES Performing Organization Address City/State/[place] [address] (ABNORMAL) Hemogram (07/18/2016 8:09 AM EST) athologist Signature WBC 137.3 4.0 - 9.5 [facility] (Critical) x10(3)/[facility] LABORATORY Comment: Please note: Patients with WBC greater t jaeger 100,000 may have falsely elevated potassium levels. Contact the Clinical C hemistry Laboratory if there are any questions. RBC 2.31 (L) 4.00 - 5.21 x10(6)/[facility] LABORATORY Hemoglobin 6.9 (L) 11.7 - 15.5 gm/dL [facility] LABORATORY Hematocrit 21.9 (L) 35.7 - 45.8 % [facility] LABORATORY MCV 94.8 (H) 82.6 - 94.4 fL [facility] LABORATORY MCH 29.9 27.1 - 32.0 pg [facility] LABORATORY MCHC 31.5 (L) 31.7 - 35.0 gm/dL [facility] LABORATORY Platelets 147 145 - 357 x10(3)/[facility] LABORATORY RDWSD 50.8 (H) 37.0 - 46.0 [facility] LABORATORY RDWCV 15.8 (H) 11.5 - 14.1 % [facility] LABORATORY MPV 11.0 7.6 - 12.[address] [facility] LABORATORY nRBC % Auto 0.0 % [facility] LABORATORY nRBC Abs Auto 0.000 0.000 - 0.000 x10(3)/[facility] LABORATORY Specimen Anatomical Collection Method Collection Time Receive d Time (Source) Location / / Volume Laterality Blood specimen No Charge / 07/18/2016 8:09 AM 017 (specimen) Unknown EST 11:11 AM EST Resulting Agency Comment Spec In Lab Kareen Figueroa MD HEMATOLOGY ORDERABLES Performing Organization Address City/[facility]/ZIP Code Phon e Number [address] Lavender Tube HOLD (07/18/2016 8:09 AM EST) Patholo gist Method Time Signature Lavender Hold Sample in [facility] Specimen Anatomical Collection Method Collection Time Receive d Time (Source) Location / / Volume Laterality Blood specimen No Charge / 07/18/2016 8:09 AM 017 8:16 (specimen) Unknown EST AM EST Kareen Figueroa MD HEMATOLOGY ORDERABLES Performing Organization Address City/[facility]/ZIP Code Phon e Number [address] Green Tube HOLD (07/18/2016 8:09 AM EST) P athologist Signature Green Hold Sample in [facility]. [facility] Specimen Anatomical Collection Method Collection Time Receive d Time (Source) Location / / Volume Laterality Blood specimen No Charge / 07/18/2016 8:09 AM 017 8:15 (specimen) Unknown EST AM EST Kareen Figueroa MD CHEMISTRY ORDERABLES Performing Organization Address City/[facility]/[place] [address] (ABNORMAL) CMP w/fasting Glucose (07/17/2016 4:00 AM EST) P athologist Signature Glucose 124 (H) 65 - 99 [facility] Fasting mg/dL [facility] LABORATORY Comment: ?Fasting* Glucose Interpretive C [...] of Diabetes Mellitus, Position Statement from the [place] [employer]. ??Diabete s Care, Volume 33, Supplement 1, May 2009 BUN 13 8 - 18 mg/dL [facility] LABORATORY Creatinine 0.73 0.70 - 1.20 mg/dL [facility] LABORATORY Comment: Please note that the pediatric reference intervals supplied above were not validated at [facility]. Results from pediatri c patients should be interpreted in conjunction to the patient's age, height and muscle mass. Sodium 144 135 - 145 mmol/L [facility] LAB[facility]ORY Potassium See Note 3.5 - 5.0 mmol/L [facility] LABORATORY Comment: Plasma Potassium result is 4.2 [...] Chloride 112 (H) 98 - 107 mmol/L [facility] LABORATORY CO2 22 22 - 31 mmol/L [facility] LABOR[facility] Anion Gap 10 5 - 15 mmol/L [facility] Calcium 7.5 (L) 8.5 - 10.5 mg/dL [facility] Total Protein 4.8 (L) 6.1 - 8.0 gm/dL [facility] LABORATORY Albumin 3.1 (L) 3.2 - 5.2 gm/dL [facility] LABORATORY AST 52 (H) 0 - 30 unit/L [facility] ALT 36 (H) 0 - 30 unit/L [facility] Alk Phos 47 40 - 104 unit/L [facility] Total Bilirubin 0.3 0.2 - 1.3 mg/dL [facility] LABORATORY Bili, Direct 0.1 0.0 - 0.3 mg/dL [facility] LABORATORY Estimated GFR >60 >=60 [facility] LAB[facility]ORY Comment: This estimated GFR (eGFR) [...] the following links into your internet browser. [email or web address] [email or web address] Specimen Anatomical Collection Method Collection Time Receive d Time (Source) Location / / Volume Laterality Blood specimen 07/17/2016 4:00 AM 017 4:07 (specimen) EST AM EST Resulting Agency Comment Spec In Lab Lizeth Campbell MD CHEMISTRY ORDERABLES Performing Organization Address City/State/[place] [address] (ABNORMAL) Hemogram (07/17/2016 4:00 AM EST) P athologist Signature WBC 143.0 4.0 - 9.5 [facility] (Critical) x10(3)/[facility] LABORATORY Comment: Please note: Patients with WBC greater t jaeger 100,000 may have falsely elevated potassium levels. Contact the Clinical C hemistry Laboratory if there are any questions. RBC 2.68 (L) 4.00 - 5.21 x10(6)/[facility] LABORATORY Hemoglobin 7.8 (L) 11.7 - 15.5 gm/dL [facility] LABORATORY Hematocrit 24.7 (L) 35.7 - 45.8 % [facility] LABORATORY MCV 92.2 82.6 - 94.4 fL [facility]ORATORY MCH 29.1 27.1 - 32.0 pg [facility] LABORATORY MCHC 31.6 (L) 31.7 - 35.0 gm/dL [facility] LABORATORY Platelets 135 (L) 145 - 357 x10(3)/[facility] LABORATORY RDWSD 49.2 (H) 37.0 - 46.0 [facility] LABORATORY RDWCV 15.8 (H) 11.5 - 14.1 % [facility] LABORATORY MPV 10.9 7.6 - 12.[address] [facility] LAB[facility] nRBC % Auto 0.0 % [facility] LABORATORY nRBC Abs Auto 0.030 (H) 0.000 - 0.000 x10(3)/[facility] LABORATORY Specimen Anatomical Collection Method Collection Time Receive d Time (Source) Location / / Volume Laterality Blood specimen 07/17/2016 4:00 AM 017 4:07 (specimen) EST AM EST Resulting Agency Comment Spec In Lab Lizeth Campbell MD HEMATOLOGY ORDERABLES Performing Organization Address City/State/[place] [address] (ABNORMAL) Hemogram (07/16/2016 2:40 PM EST) P athologist Signature WBC 131.9 4.0 - 9.5 [facility] (Critical) x10(3)/[facility] LABORATORY Comment: Please note: Patients with WBC greater t jaeger 100,000 may have falsely elevated potassium levels. Contact the Clinical C hemistry Laboratory if there are any questions. RBC 2.81 (L) 4.00 - 5.21 x10(6)/[facility] LABORATORY Hemoglobin 8.4 (L) 11.7 - 15.5 gm/dL [facility] LABORATORY Hematocrit 26.2 (L) 35.7 - 45.8 % [facility] LABORATORY MCV 93.2 82.6 - 94.4 [facility] LABORATORY MCH 29.9 27.1 - 32.0 pg [facility] LABORATORY MCHC 32.1 31.7 - 35.0 gm/dL [facility] LABORATORY Platelets 124 (L) 145 - 357 x10(3)/[facility] LABORATORY RDWSD 47.1 (H) 37.0 - 46.0 fL [facility] LABORATORY RDWCV 14.6 (H) 11.5 - 14.1 % [facility] LABORATORY MPV 10.6 7.6 - 12.[address] [facility] LAB[facility] nRBC % Auto 0.0 % [facility] LABORATORY nRBC Abs Auto 0.000 0.000 - 0.000 x10(3)/[facility] LABORATORY Specimen Anatomical Collection Method Collection Time Receive d Time (Source) Location / / Volume Laterality Blood specimen 07/16/2016 2:40 PM 017 2:52 (specimen) EST PM EST Resulting Agency Comment Spec In Lab Lizeth Campbell MD HEMATOLOGY ORDERABLES Performing Organization Address City/[facility]/[place] [address] Prepare RBC (07/16/2016 9:30 AM EST) P athologist Signature Dispensed? Yes [facility] [place] Anatomical Collection Method Collection Time Receive d Time (Source) Location / / Volume Laterality Blood specimen No Charge / 07/16/2016 9:30 AM 017 9:30 (specimen) Unknown EST AM EST Resulting Agency Comment Spec In Lab Kareen Figueroa MD BLOOD BANK ORDERABLES Performing Organization Address City/[facility]/[place] [address] Prepare RBC (07/16/2016 9:30 AM EST) P athologist Signature Dispensed? Yes [facility] Specimen Anatomical Collection Method Collection Time Receive d Time (Source) Location / / Volume Laterality Blood specimen 07/16/2016 9:30 AM 017 9:28 (specimen) EST AM EST Lizeth Campbell MD BLOOD BANK ORDERABLES Performing Organization Address City/[facility]/ZIP Code Phon e Number [address] Scan, Peripheral Blood (07/16/2016 8:45 AM EST) Patholo gist Method Time Signature Plat Estimate Decreased [facility] RBC Morphology Normal [facility] Smudge Cells Present [facility] Specimen Anatomical Collection Method Collection Time Receive d Time (Source) Location / / Volume Laterality Blood specimen 07/16/2016 8:45 AM 017 8:52 (specimen) EST AM EST Resulting Agency Comment Spec In Lab Regina Hill MD HEMATOLOGY ORDERABLES Performing Organization Address City/State/[place] [address] (ABNORMAL) CMP w/fasting Glucose (07/16/2016 8:45 AM EST) P athologist Signature Glucose 162 (H) 65 - 99 [facility] Fasting mg/dL [facility] Comment: ?Fasting* Glucose Interpretive C riteria Normal ?65-99 mg/dL Impaired Fasting glucose ?100-125 mg/dL Consistent with Diabetes Mellitus ? >or= 126 mg/dL *Fasting is defined as no caloric intake for at least 8 hours In the absence of unequivocal hypergly cemia a plasma glucose value of >or= 126 mg/dL should be repeated on a subseq u day. Diagnosis and Classification of Diabetes Mellitus, Position Statement from the [place] [employer]. ??Diabete s Care, Volume 33, Supplement 1, May 2009 BUN 16 8 - 18 mg/dL [facility] Creatinine 0.86 0.70 - 1.20 mg/dL [facility] Comment: Please note that the pediatric reference intervals supplied above were not validated at [facility]. Results from pediatri c patients should be interpreted in conjunction to the patient's age, height and muscle mass. Sodium 140 135 - 145 mmol/L [facility] Potassium See Note 3.5 - 5.0 mmol/L [facility] Comment: Plasma Potassium result is 4.2 [...] Chloride 110 (H) 98 - 107 mmol/L [facility] CO2 20 (L) 22 - 31 mmol/L [facility] Anion Gap 10 5 - 15 mmol/L [facility] Calcium 7.4 (L) 8.5 - 10.5 mg/dL [facility] Total Protein 4.5 (L) 6.1 - 8.0 gm/dL [facility] Albumin 3.0 (L) 3.2 - 5.2 gm/dL [facility] AST 42 (H) 0 - 30 unit/L [facility] ALT 23 0 - 30 unit/L [facility] Alk Phos 46 40 - 104 unit/L [facility] Total Bilirubin 0.2 0.2 - 1.3 mg/dL [facility] Bili, Direct 0.1 0.0 - 0.3 mg/dL [facility] Estimated GFR >60 >=60 [facility] Comment: This estimated GFR (eGFR) [...] the following links into your internet browser. [email or web address] Specimen Anatomical Collection Method Collection Time Receive d Time (Source) Location / / Volume Laterality Blood specimen 07/16/2016 8:45 AM 017 8:52 (specimen) EST AM EST Resulting Agency Comment Spec In Lab Lizeth Campbell MD CHEMISTRY ORDERABLES Performing Organization Address City/State/[place] [address] (ABNORMAL) Hemogram (07/16/2016 8:45 AM EST) athologist Signature WBC 152.0 4.0 - 9.5 [facility] (Critical) x10(3)/[facility] LABORATORY Comment: Please note: Patients with WBC greater t jaeger 100,000 may have falsely elevated potassium levels. Contact the Clinical C hemistry Laboratory if there are any questions.. This result has been called to AIYANA OLSON by Dinah Hyman on 07 16 2016 at 0918, and has been read back. RBC 2.19 (L) 4.00 - 5.21 x10(6)/[facility] LABORATORY Hemoglobin 6.4 (L) 11.7 - 15.5 gm/dL [facility] Comment: This result has been called to AIYANA CONTEH by Dinah Hyman on 07 16 2016 at 0918, and has been read back. Hematocrit 21.6 (L) 35.7 - 45.8 % [facility] MCV 98.6 (H) 82.6 - 94.4 fL [facility] MCH 29.2 27.1 - 32.0 pg [facility] MCHC 29.6 (L) 31.7 - 35.0 gm/dL [facility] LABORATORY Platelets 140 (L) 145 - 357 x10(3)/[facility] LABORATORY RDWSD 50.4 (H) 37.0 - 46.0 [facility] LABORATORY RDWCV 15.2 (H) 11.5 - 14.1 % [facility] LABORATORY MPV 10.9 7.6 - 12.9 [facility] LABORATORY nRBC % Auto 0.0 % [facility] LABORATORY nRBC Abs Auto 0.000 0.000 - 0.000 x10(3)/mcL M KARL [facility] LABORATORY Specimen Anatomical Collection Method Collection Time Receive d Time (Source) Location / / Volume Laterality Blood specimen 07/16/2016 8:45 AM 017 8:52 (specimen) EST AM EST Resulting Agency Comment Spec In Lab Lizeth Campbell MD HEMATOLOGY ORDERABLES Performing Organization Address City/State/ZIP Code Phon e Number [address] Fibrinogen (07/16/2016 2:30 AM EST) P athologist Signature Fibrinogen 196 180 - 510 [facility] mg/dL [facility] Comment: A fibrinogen level >100 mg/dL is adequat e for hemostasis in most patients without underlying bleeding disorders. Specimen Anatomical Collection Method Collection Time Receive d Time (Source) Location / / Volume Laterality Blood specimen 07/16/2016 2:30 AM 017 2:46 (specimen) EST AM EST Resulting Agency Comment Spec In Lab Regina Hill MD HEMATOLOGY ORDERABLES Performing Organization Address City/[facility]/ZIP Code Phon e Number [address] (ABNORMAL) Fibrinogen (07/15/2016 3:58 PM EST) P athologist Signature Fibrinogen 162 (L) 180 - 510 [facility] Comment: A fibrinogen level >100 mg/dL is adequat e for hemostasis in most patients without underlying bleeding disorders. Specimen Anatomical Collection Method Collection Time Receive d Time (Source) Location / / Volume Laterality Blood specimen 07/15/2016 3:58 PM 017 4:14 (specimen) EST PM EST Resulting Agency Comment Spec In Lab Regina Hill MD HEMATOLOGY ORDERABLES Performing Organization Address City/[facility]/ZIP Code Phon e Number [address] Scan, Peripheral Blood (07/15/2016 2:10 PM EST) [facility] Method Time Signature Plat Estimate Decreased [facility] RBC Morphology Normal [facility] Specimen Anatomical Collection Method Collection Time Receive d Time (Source) Location / / Volume Laterality Blood specimen 07/15/2016 2:10 PM 017 2:22 (specimen) EST PM EST Resulting Agency Comment Spec In Lab Regina Hill MD HEMATOLOGY ORDERABLES Performing Organization Address City/State/[place] [address] (ABNORMAL) Differential, Automated (07/15/2016 2:10 PM EST) [facility] Method Time Signature Neutrophils % 7.8 % [facility] Neutr Abs (ANC) 11.93 (H) 1.70 - [facility] 6.10 [facility] x10(3)/[facility] LABORATORY Lymphocytes % 90.9 % [facility] Comment: Abnormal Immature forms present . Lymphocytes Abs 138.7 (H) 0.9 - 3.2 x10(3)/[facility] LABORATORY Monocytes % 0.7 % [facility] LABORATORY Monocyte Abs 1.1 (H) 0.3 - 0.9 x10(3)/[facility] LABORATORY Eosinophils % 0.0 % [facility] Eosinophils Abs 0.0 0.0 - 0.4 x10(3)/[facility] LABORATORY Basophils % 0.1 % [facility] LABORATORY Basophils Abs 0.1 0.0 - 0.1 x10(3)/[facility] LABORATORY Immature Gran % 0.50 % [facility] Comment: Immature granulocytes(IG's)percentage an d absolute count will include metamyelocytes, myelocytes, and promyelo cytes. Blood smears from CBCs yielding IG's will be scanned manually for concor dance. If this scan disagrees with the automated IG or if promyelocytes are not ed, a manual differential will be performed. Claudia Gran Abs 0.71 (H) 0.00 - 0.04 x10(3)/[facility] LABORATORY Specimen Anatomical Collection Method Collection Time Receive d Time (Source) Location / / Volume Laterality Blood specimen 07/15/2016 2:10 PM 017 2:22 (specimen) EST PM EST Resulting Agency Comment Spec In Lab Regina Hill MD HEMATOLOGY ORDERABLES Performing Organization Address City/State/[place] [address] (ABNORMAL) Hemogram (07/15/2016 2:10 PM EST) P athologist Signature WBC 152.5 4.0 - 9.5 [facility] (Critical) x10(3)/[facility] LABORATORY Comment: Please note: Patients with WBC greater t jaeger 100,000 may have falsely elevated potassium levels. Contact the Clinical C hemistry Laboratory if there are any questions.. This result has been called to NOT CALLED by DOROTEO BARRAGAN on 07 15 2016 at 1530, and has not been jacquie d back. MATCHES PREVIOUS RBC 2.86 (L) 4.00 - 5.21 x10(6)/[facility] LABORATORY Hemoglobin 8.4 (L) 11.7 - 15.5 gm/dL [facility]OR[facility] Hematocrit 27.6 (L) 35.7 - 45.8 % [facility] MCV 96.5 (H) 82.6 - 94.4 fL [facility] MCH 29.4 27.1 - 32.0 pg [facility] MCHC 30.4 (L) 31.7 - 35.0 gm/dL [facility] LABORATORY Platelets 135 (L) 145 - 357 x10(3)/[facility] LABORATORY RDWSD 49.5 (H) 37.0 - 46.0 [facility] LABORATORY RDWCV 14.6 (H) 11.5 - 14.1 % [facility] LABORATORY MPV 11.1 7.6 - 12.9 [facility] LABORATORY nRBC % Auto 0.0 % [facility] LABORATORY nRBC Abs Auto 0.000 0.000 - 0.000 x10(3)/[facility]L [facility] LABORATORY Specimen Anatomical Collection Method Collection Time Receive d Time (Source) Location / / Volume Laterality Blood specimen 07/15/2016 2:10 PM 017 2:22 (specimen) EST PM EST Resulting Agency Comment Spec In Lab Regina Hill MD HEMATOLOGY ORDERABLES Performing Organization Address City/State/[place] [address] Potassium (07/15/2016 1:10 PM EST) athologist Signature Potassium 4.0 3.5 - 5.0 [facility] mmol/L [facility] Comment: Serum specimen Please note: [...] Hill MD CHEMISTRY ORDERABLES Performing Organization Address City/[facility]/[place] [address] Viscosity (07/15/2016 1:10 PM EST) athologist Signature Viscosity 1.1 1.0 - 1.7 [facility] LABORATORY Specimen Anatomical Collection Method Collection Time Receive d Time (Source) Location / / Volume Laterality Blood specimen 07/15/2016 1:10 PM 017 1:23 (specimen) EST PM EST Resulting Agency Comment Spec In Lab Regina Hill MD HEMATOLOGY ORDERABLES Performing Organization Address City/[facility]/[place] [address] (ABNORMAL) APTT (07/15/2016 9:20 AM EST) athologist Signature PTT 122 (H) 25 - 35 sec [facility] Comment: The recommended therapeutic range for fu ll dose, unfractionated heparin at [facility] is 80 ? 114 seconds. The use [...] Campbell MD HEMATOLOGY ORDERABLES Performing Organization Address City/[facility]/ZIP Code Phon e Number [address] Potassium (07/15/2016 9:20 AM EST) P athologist Signature Potassium 4.1 3.5 - 5.0 [facility] mmol/L [facility] Comment: tested on serum from [...] Hill MD CHEMISTRY ORDERABLES Performing Organization Address City/[facility]/ZIP Code Phon e Number [address] Scan, Peripheral Blood (07/15/2016 2:10 AM EST) Analysis Performed At Patho logist Time Signature Plat Estimate Normal [facility] RBC Morphology Normal [facility] Smudge Cells Present [facility] Specimen Anatomical Collection Method Collection Time Receive d Time (Source) Location / / Volume Laterality Blood specimen 07/15/2016 2:10 AM 017 2:29 (specimen) EST AM EST Resulting Agency Comment Spec In Lab Regina Hill MD HEMATOLOGY ORDERABLES Performing Organization Address City/[facility]/[place] [address] (ABNORMAL) APTT (07/15/2016 2:10 AM EST) athologist Signature PTT 68 (H) 25 - 35 sec [facility] Comment: The recommended therapeutic range for fu ll dose, unfractionated heparin at [facility] is 80 ? 114 seconds. The use [...] Hill MD HEMATOLOGY ORDERABLES Performing Organization Address City/[facility]/[place] [address] (ABNORMAL) Basic Metabolic Panel (non-fasting) (07/15/2016 2:10 AM EST) athologist Signature Glucose Lvl 127 65 - 199 [facility] mg/dL [facility] Comment: Diabetes: >=200 mg/dL plus symp toms BUN 16 8 - 18 mg/dL [facility] Creatinine 0.87 0.70 - 1.20 mg/dL [facility] Comment: Please note that the pediatric reference intervals supplied above were not validated at [facility]. Results from pediatri c patients should be interpreted in conjunction to the patient's age, height and muscle mass. Sodium 142 135 - 145 mmol/L [facility] Comment: result rechecked-bju Potassium 3.6 3.5 - 5.0 mmol/L [facility] Comment: Result rechecked. Please note: ??Patients with WBC >100,00 0 may have falsely elevated Potassium levels. ??For accurate Potassium quantif ication in these patients send serum separator tube (gold top) for subsequent determinations. ??Contact the Clinical Chemistry Laboratory if there are any qu estions. Chloride 109 (H) 98 - 107 mmol/L [facility] Comment: result rechecked-bju CO2 20 (L) 22 - 31 mmol/L [facility] Anion Gap 13 5 - 15 mmol/L [facility] Calcium 7.7 (L) 8.5 - 10.5 mg/dL [facility] Comment: result rechecked-bju Estimated GFR >60 >=60 [facility] Comment: This estimated GFR (eGFR) [...] the following links into your internet browser. [email or web address] Specimen Anatomical Collection Method Collection Time Receive d Time (Source) Location / / Volume Laterality Blood specimen Venous Draw / 07/15/2016 2:10 AM 2016 2:29 (specimen) Unknown EST AM EST Resulting Agency Comment Spec In Lab Regina Hill MD CHEMISTRY ORDERABLES Performing Organization Address City/State/[place] [address] (ABNORMAL) Differential, Automated (07/15/2016 2:10 AM EST) [facility] Method Time Signature Neutrophils % 5.8 % [facility] Neutr Abs (ANC) 9.36 (H) 1.70 - [facility] 6.10 [facility] x10(3)/[facility] LABORATORY Lymphocytes % 93.1 % [facility] Lymphocytes Abs 151.8 (H) 0.9 - 3.2 [facility] x10(3)/[facility] LABORATORY Monocytes % 0.7 % [facility] Monocyte Abs 1.2 (H) 0.3 - 0.9 [facility] x10(3)/[facility] LABORATORY Eosinophils % 0.1 % [facility] Eosinophils Abs 0.1 0.0 - 0.4 [facility] x10(3)/[facility] LABORATORY Basophils % 0.0 % [facility] Basophils Abs 0.1 0.0 - 0.1 [facility] x10(3)/[facility] LABORATORY Immature Gran % 0.30 % [facility] Comment: Immature granulocytes(IG's)percentage an d absolute count will include metamyelocytes, myelocytes, and promyelo cytes. Blood smears from CBCs yielding IG's will be scanned manually for concor dance. If this scan disagrees with the automated IG or if promyelocytes are not ed, a manual differential will be performed. Claudia Gran Abs 0.57 (H) 0.00 - 0.04 x10(3)/[facility] LABORATORY Specimen Anatomical Collection Method Collection Time Receive d Time (Source) Location / / Volume Laterality Blood specimen 07/15/2016 2:10 AM 017 2:29 (specimen) EST AM EST Resulting Agency Comment Spec In Lab Regina Hill MD HEMATOLOGY ORDERABLES Performing Organization Address City/State/[place] [address] (ABNORMAL) Hemogram (07/15/2016 2:10 AM EST) P athologist Signature WBC 163.2 4.0 - 9.5 [facility] (Critical) x10(3)/[facility] LABORATORY Comment: Please note: Patients with WBC greater t jaeger 100,000 may have falsely elevated potassium levels. Contact the Clinical C hemistry Laboratory if there are any questions.. This result has been called to NOT CALLED by Ben Davison on 07 15 2016 at 0254, and has not been read back . Matches Previous RBC 3.54 (L) 4.00 - 5.21 x10(6)/[facility] LABORATORY Hemoglobin 10.1 (L) 11.7 - 15.5 gm/dL [facility] Hematocrit 33.3 (L) 35.7 - 45.8 % [facility] MCV 94.1 82.6 - 94.4 fL [facility] MCH 28.5 27.1 - 32.0 pg [facility] MCHC 30.3 (L) 31.7 - 35.0 gm/dL [facility] LABORATORY Platelets 134 (L) 145 - 357 x10(3)/[facility] LABORATORY RDWSD 47.8 (H) 37.0 - 46.0 fL [facility] RDWCV 14.4 (H) 11.5 - 14.1 % [facility] MPV 10.9 7.6 - 12.9 [facility] LABORATORY nRBC % Auto 0.0 % [facility] LABORATORY nRBC Abs Auto 0.000 0.000 - 0.000 x10(3)/[facility] LABORATORY Specimen Anatomical Collection Method Collection Time Receive d Time (Source) Location / / Volume Laterality Blood specimen 07/15/2016 2:10 AM 017 2:29 (specimen) EST AM EST Resulting Agency Comment Spec In Lab Regina Hill MD HEMATOLOGY ORDERABLES Performing Organization Address City/State/[place] [address] (ABNORMAL) Prothrombin Time (07/15/2016 2:10 AM EST) P athologist Signature PT 17.3 (H) 12.0 - 15.0 [facility] LABORATORY Comment: An INR <2.0 indicates adequate [...] circumstances. INR 1.4 (H) 0.9 - 1.1 [facility] LABORATORY Specimen Anatomical Collection Method Collection Time Receive d Time (Source) Location / / Volume Laterality Blood specimen 07/15/2016 2:10 AM 017 2:29 (specimen) EST AM EST Resulting Agency Comment Spec In Lab Regina Hill MD HEMATOLOGY ORDERABLES Performing Organization Address City/[facility]/ZIP Code Phon e Number [address] Phosphorus (07/15/2016 2:10 AM EST) P athologist Signature Phosphorus 3.9 2.5 - 4.5 [facility] mg/dL [facility] Specimen Anatomical Collection Method Collection Time Receive d Time (Source) Location / / Volume Laterality Blood specimen 07/15/2016 2:10 AM 017 2:29 (specimen) EST AM EST Resulting Agency Comment Spec In Lab Regina Hill MD CHEMISTRY ORDERABLES Performing Organization Address City/[facility]/[place] [address] Magnesium (07/15/2016 2:10 AM EST) P athologist Signature Magnesium 0.80 0.69 - 1.07 [facility] mmol/L [facility] Specimen Anatomical Collection Method Collection Time Receive d Time (Source) Location / / Volume Laterality Blood specimen 07/15/2016 2:10 AM 017 2:29 (specimen) EST AM EST Resulting Agency Comment Spec In Lab Regina Hill MD CHEMISTRY ORDERABLES Performing Organization Address City/[facility]/ZIP [facility] Phon e Number [address] APTT (07/14/2016 6:20 PM EST) P athologist Signature PTT 34 25 - 35 sec [facility] Comment: The recommended therapeutic range for fu ll dose, unfractionated heparin at [facility] is 80 ? 114 seconds. The use [...] Organization Address City/State/ZIP Code Phon e Number [address] POCT Glucose (07/14/2016 3:19 PM EST) P athologist Signature POC Glucose 102 65 - 199 [facility] mg/dL [facility] Comment: Supplemental ranges: <140 mg/dL before meals <180 mg/dL all other times of the day Specimen Anatomical Collection Method Collection Time Receive d Time (Source) Location / / Volume Laterality Blood specimen 07/14/2016 3:19 PM 017 3:19 (specimen) EST PM EST Regina Hill MD POINT OF CARE TEST ORDERABLE S Performing Organization Address City/[facility]/[place] [address] MRI Brain wo Contrast [...] Wu ?? (Age): 1950(66y) Med Rec#: ? [id number] ?Sex: ?F ? Site Loc: ? DH ?Ht / Wt: ??163.8(cm)/77(kg Pt. Loc: ?ED ?BSA: ?1.83 Study Date: ?? 07/14/2016 ?Pt. Type: Inpatient Tape: ? 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 Tachycardia BP: ? 133/65 SUMMARY: [...] sign ed by: _ Yomi Tillman M.D. ? 07/14/2016 11:23:35 Images reviewed and interpretation ver [email or web address] [facility] Cardiac Ultrasound Laboratory Procedure Note Yomi Tillman MD - 07/14/2016Format ting of this note might be different from the original. Procedure: Transthoracic Echocardiogram Patient: ARIANNA RAO(Age): 1 (66y) Med Rec#: [id number] Sex: F Site Loc: [facility] Ht / Wt: 163.8(cm)/77(kg Pt. Loc: ED BSA: 1.83 Study Date: 07/14/2016 Pt. 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 Basal [...] 07/14/2016 11:23: 35 Images reviewed and interpretation geetha walker [facility] Cardiac Ultrasound Laboratory Brittnee Granados MD ECHO [...] original. EXAMINATION: XR CHEST PA AND LATERAL ([place]) CLINICAL HISTORY: Shortness of breath TECHNIQUE: PA [...] the findings, Dennis camacho 07/14/2016 9:43 AM Cody Candelario MD IMG DX ORDERABLES (ABNORMAL) BLOOD GAS 2 ARTERIAL (07/14/2016 9:08 AM EST) Analysis Performed At Patho logis Time Signature pH Art 7.40 7.35 - [facility] 7.45 [facility] pCO2 Art 34 (L) 35 - 45 [facility] mmHg [facility] pO2 Art 52 (L) 85 - 104 [facility] mmHg [facility] HCO3 Art 20.4 20.0 - [facility] 26.0 [facility] mmol/L [facility] BE Art -4.5 (L) -3.0 - 3.0 [facility] mmol/L [facility] Hgb Blood Gas 14.4 11.7 - [facility] 15.5 gm/dL [facility] O2HB Art 86.6 (L) 94.0 - [facility] 97.0 % [facility] COHB Art 0.2 % [facility] Comment: Nonsmokers: 0.5-1.5% COHB Smokers: Variable, but usually less than 10% Toxic: 20-30% COHB Lethal: Greater than 60% COHB METHB Art 0.3 <=1.5 % [facility] Na Whole Blood 141 135 - 145 mmol/L [facility] K Whole Blood 3.2 (L) 3.5 - 5.0 mmol/L [facility] Comment: Please note: Patients with WBC >100,000 may have falsely elevated Potassium levels. Contact the Clinical Chemistry L aboratory if there are any questions. ICa Whole Blood 1.20 1.15 - 1.33 mmol/L [facility] Comment: Note: ??Total bilirubin higher than 20 m g/dL may lead to falsely low ionized calcium. CL Whole Blood 107 98 - 107 mmol/L [facility] Gluc Whole Bld 163 65 - 199 mg/dL [facility] Comment: Diabetes: >=200 mg/dL plus symp toms. Lactate WB 1.5 0.5 - 2.2 mmol/L [facility] Specimen Anatomical Collection Method Collection Time Receive d Time (Source) Location / / Volume Laterality Blood specimen 07/14/2016 9:08 AM 017 9:08 (specimen) EST AM EST Cody Candelario MD CHEMISTRY ORDERABLES Performing Organization Address City/[facility] Code Phon e Number [place] [phone] EKG 12 Lead (07/14/2016 8:55 AM EST) Component Value Ref Range Test Analysis Performed Pathologis t Method Time At Signature Ventricular rate 108 BPM MUSE SYSTEM Atrial Rate 108 BPM MUSE SYSTEM P-R Interval 142 ms MUSE SYSTEM QRS Duration 102 ms MUSE SYSTEM Q-T Interval 326 ms MUSE SYSTEM QTC Calculated 436 ms MUSE SYSTEM (Bezet) Calculated P [place] 89 degrees MUSE SYSTEM Calculated R Eak[place] -8 degrees MUSE SYSTEM Calculated T Eak[place] 70 degrees MUSE SYSTEM INTERPRETATION Sinus tachycardia [...] Candelario MD ECG ORDERABLES Performing Organization Address City/State/ZIP Code Phon e Number [employer] SYSTEM CT Head wo Contrast (Generic) (07/14/2016 [...] fluid on the right. Cody Candelario MD [facility] CT ORDERABLES ABORH Recheck Status (07/14/2016 8:47 AM EST) [facility] gist Method Time Signature ABORH Recheck Order Placed [facility] LABORATORY ABORH Type Complete [facility] LABORATORY Specimen Anatomical Collection Method Collection Time Receive d Time (Source) Location / / Volume Laterality Blood specimen 07/14/2016 8:47 AM 017 8:58 (specimen) EST AM EST Resulting Agency Comment Spec In Lab Cody Candelario MD BLOOD BANK ORDERABLES Performing Organization Address City/State/ZIP Code Phon e Number [place] [phone] Antibody screen (07/14/2016 8:47 AM EST) Patholo gist Method Time Signature Ab Screen Negative [facility] LABORATORY Expires at 07/17/2016 [facility] [id number] on: [facility] Specimen Anatomical Collection Method Collection Time Receive d Time (Source) Location / / Volume Laterality Blood specimen 07/14/2016 8:47 AM 017 8:58 (specimen) EST AM EST Resulting Agency Comment Spec In Lab Cody Candelario MD BLOOD BANK ORDERABLES Performing Organization Address City/[facility]/ZIP Code Phon e Number [address] ABO/Rh Typing (07/14/2016 8:47 AM EST) P athologist Signature ABORh Type A Neg [facility] Specimen Anatomical Collection Method Collection Time Receive d Time (Source) Location / / Volume Laterality Blood specimen 07/14/2016 8:47 AM 017 8:58 (specimen) EST AM EST Resulting Agency Comment Spec In Lab Cody Candelario MD BLOOD BANK ORDERABLES Performing Organization Address City/[facility]/[place] [address] (ABNORMAL) pro-Brain Natriuretic Peptide (07/14/2016 8:44 AM EST) P athologist Signature ProBNP 143 (H) <=125 pg/mL [facility] Specimen Anatomical Collection Method Collection Time Receive d Time (Source) Location / / Volume Laterality Blood specimen Venous Draw / 07/14/2016 8:44 AM 2016 8:59 (specimen) Unknown EST AM EST Resulting Agency Comment Spec In Lab Cody Candelario MD CHEMISTRY ORDERABLES Performing Organization Address City/[facility]/ZIP Code Phon e Number [address] Scan, Peripheral Blood (07/14/2016 8:44 AM EST) Analysis Performed At Patho logist Time Signature Plat Estimate Normal [facility] RBC Morphology Normal [facility] Smudge Cells Present [facility] Specimen Anatomical Collection Method Collection Time Receive d Time (Source) Location / / Volume Laterality Blood specimen 07/14/2016 8:44 AM 017 8:58 (specimen) EST AM EST Resulting Agency Comment Spec In Lab Cody Candelario MD HEMATOLOGY ORDERABLES Performing Organization Address [facility] [place] [address] (ABNORMAL) D-Dimer, Quantitative (07/14/2016 8:44 AM EST) Patholo gist Method Time Signature D-Dimer, Quant >30379 0 - 500 MADIHA BOBO (Critical) FEU ng/ml [facility] Comment: Called by: ALIRIO, Read back by: Clayton sanchez, Date/Time:07/14/16 09:52. [...] Candelario MD HEMATOLOGY ORDERABLES Performing Organization Address City/[facility] [place] [address] (ABNORMAL) Troponin T (07/14/2016 8:44 AM EST) P athologist Signature Troponin-T 0.11 (H) <=0.03 MADIHA BROUSSARD ng/mL [facility] Comment: Called by: TREASURE, Read [...] consensus document of the Joint Society of Cardiology/[place] [employer] Committee for the redefinition of myocardial infarction. ? ?Journal of the [place] [employer] 2000; 36: 959-969] Specimen Anatomical Collection Method Collection Time Receive d Time (Source) Location / / Volume Laterality Blood specimen Venous Draw / 07/14/2016 8:44 AM 2016 8:59 (specimen) Unknown EST AM EST Resulting Agency Comment Spec In Lab Cody Candelario MD CHEMISTRY ORDERABLES Performing Organization Address City/[facility]/ZIP Code Phon e Number [address] Gold Tube HOLD (07/14/2016 8:44 AM EST) P athologist Signature Gold Hold Sample in [facility]. [facility] Specimen Anatomical Collection Method Collection Time Receive d Time (Source) Location / / Volume Laterality Blood specimen 07/14/2016 8:44 AM 017 8:58 (specimen) EST AM EST Cody Candelario MD CHEMISTRY ORDERABLES Performing Organization Address City/[facility] [place] [address] (ABNORMAL) Differential, Automated (07/14/2016 8:44 AM EST) Patholo gist Method Time Signature Neutrophils % 5.7 % [facility] Neutr Abs (ANC) 9.32 (H) 1.70 - [facility] 6.10 [facility] x10(3)/[facility] L LABORATORY Lymphocytes % 93.1 % [facility] Comment: PROTEINAOUS MATERIAL FOUND AT F EATHERED EDGE OF SMEAR. Lymphocytes Abs 152.7 (H) 0.9 - 3.2 x10(3)/[facility] LABORATORY Monocytes % 0.6 % [facility] Monocyte Abs 1.0 (H) 0.3 - 0.9 x10(3)/[facility] LABORATORY Eosinophils % 0.1 % [facility] Eosinophils Abs 0.2 0.0 - 0.4 x10(3)/[facility] Y [facility]ATORY Basophils % 0.1 % [facility]OR[facility]ORY Basophils Abs 0.1 0.0 - 0.1 x10(3)/[facility] LABORATORY Immature Gran % 0.40 % [facility] Comment: Immature granulocytes(IG's)percentage an d absolute count will include metamyelocytes, myelocytes, and promyelo cytes. Blood smears from CBCs yielding IG's will be scanned manually for concor dance. If this scan disagrees with the automated IG or if promyelocytes are not ed, a manual differential will be performed. Claudia Gran Abs 0.61 (H) 0.00 - 0.04 x10(3)/[facility] LABORATORY Specimen Anatomical Collection Method Collection Time Receive d Time (Source) Location / / Volume Laterality Blood specimen 07/14/2016 8:44 AM 017 8:58 (specimen) EST AM EST Resulting Agency Comment Spec In Lab Cody Candelario MD HEMATOLOGY ORDERABLES Performing Organization Address City/State/[place] [address] (ABNORMAL) Hemogram (07/14/2016 8:44 AM EST) P athologist Signature WBC 163.9 4.0 - 9.5 [facility] (Critical) x10(3)/[facility] LABORATORY Comment: Please note: Patients with WBC greater t jaeger 100,000 may have falsely elevated potassium levels. Contact the Clinical C hemistry Laboratory if there are any questions.. This result has been called to MODESTO COOPER by SALEEM HENDERSON on 07 14 2016 at 0935, and has been read ba ck. RBC 4.80 4.00 - 5.21 x10(6)/[facility] LABORATORY Hemoglobin 14.1 11.7 - 15.5 gm/dL [facility] Hematocrit 45.2 35.7 - 45.8 % [facility] MCV 94.2 82.6 - 94.4 [facility] LABORATORY MCH 29.4 27.1 - 32.0 pg [facility] MCHC 31.2 (L) 31.7 - 35.0 gm/dL [facility] Platelets 165 145 - 357 x10(3)/[facility] LABORATORY RDWSD 48.8 (H) 37.0 - 46.0 [facility] LABORATORY RDWCV 14.4 (H) 11.5 - 14.1 % [facility] MPV 11.0 7.6 - 12.[address] [facility] nRBC % Auto 0.0 % [facility] LABORATORY nRBC Abs Auto 0.000 0.000 - 0.000 x10(3)/[facility] LABORATORY Specimen Anatomical Collection Method Collection Time Receive d Time (Source) Location / / Volume Laterality Blood specimen 07/14/2016 8:44 AM 017 8:58 (specimen) EST AM EST Resulting Agency Comment Spec In Lab Cody Candelario MD HEMATOLOGY ORDERABLES Performing Organization Address City/State/[place] [address] (ABNORMAL) Basic Metabolic Panel (non-fasting) (07/14/2016 8:44 AM EST) athologist Signature Glucose Lvl 193 65 - 199 [facility] mg/dL [facility] Comment: Diabetes: >=200 mg/dL plus symp toms BUN 22 (H) 8 - 18 mg/dL [facility] Creatinine 0.99 0.70 - 1.20 mg/dL [facility] Comment: Please note that the pediatric reference intervals supplied above were not validated at [facility]. Results from pediatri c patients should be interpreted in conjunction to the patient's age, height and muscle mass. Sodium 140 135 - 145 mmol/L [facility] Potassium See Note 3.5 - 5.0 mmol/L [facility] Comment: Plasma Potassium result is 6.2 [...] estions. Chloride 103 98 - 107 mmol/L [facility] CO2 21 (L) 22 - 31 mmol/L [facility] Anion Gap 16 (H) 5 - 15 mmol/L [facility] Calcium 8.9 8.5 - 10.5 mg/dL [facility] Estimated GFR 56 (L) >=60 [facility] Comment: This estimated GFR (eGFR) [...] the following links into your internet browser. [email or web address] Specimen Anatomical Collection Method Collection Time Receive d Time (Source) Location / / Volume Laterality Blood specimen 07/14/2016 8:44 AM 017 8:58 (specimen) EST AM EST Resulting Agency Comment Spec In Lab Cody Candelario MD CHEMISTRY ORDERABLES Performing Organization Address City/State/ZIP Code Phon e Number [place] [phone] APTT (07/14/2016 8:44 AM EST) athologist Signature PTT 26 25 - 35 sec [facility] Comment: The recommended therapeutic range for fu ll dose, unfractionated heparin at [facility] is 80 ? 114 seconds. The use [...] Candelario MD HEMATOLOGY ORDERABLES Performing Organization Address [facility] Phon e Number [address] Prothrombin Time (07/14/2016 8:44 AM EST) athologist Signature PT 14.6 12.0 - 15.0 [facility] LABORATORY Comment: An INR <2.0 indicates adequate [...] linical circumstances. INR 1.1 0.9 - 1.1 [facility]ORY Specimen Anatomical Collection Method Collection Time Receive d Time (Source) Location / / Volume Laterality Blood specimen 07/14/2016 8:44 AM 017 8:58 (specimen) EST AM EST Resulting Agency Comment Spec In Lab Cody Candelario MD HEMATOLOGY ORDERABLES Performing Organization Address City/[facility]/ZIP Code Phon e Number [address] POCT Glucose (07/14/2016 8:40 AM EST) athologist Signature POC Glucose 165 65 - 199 [facility] mg/dL [facility] Comment: Supplemental ranges: <140 mg/dL before meals <180 mg/dL all other times of the day Specimen Anatomical Collection Method Collection Time Receive d Time (Source) Location / / Volume Laterality Blood specimen 07/14/2016 8:40 AM 017 8:40 (specimen) EST AM EST Emergency Dept POINT OF CARE TEST ORDERABLE S Performing Organization Address City/State/ZIP Code Phon e Number MADIHA [place] [phone] documented in this encounter [...] Pulmonary embolism Other pulmonary embolism and infarction Colon cancer metastasized to liver Malignant neoplasm of colon, unspecified site documented in this encounter Admitting Diagnoses Diagnosis [...] next 2 hours. -for questions please page #[phone], Routine aspirin EC tablet 325 mg Given [...] 76 kg), Intravenous, ONCE, 1 dose, On Marilyn 07/14/16 at 1137, INITIAL LOADING DOSE Maximum loading [...] to order required aPTT - Per Protocol, Routine, Indication: Pulmonary Embolism heparin 25,000 units in Rate/Dose Change 07/15/2016 11:00 1,200 Uni ts/hr 24 mL/hr dextrose 5% 500 mL AM EST infusion 0-5,000 Units/hr (0-100 mL/hr), Intravenous, CONTINUOUS, Starting on Mon07/14/16 at 2000, Until Mon07/15/16 at 1501, Begin [...] to order required aPTT - Per Protocol, Routine, Indication: Pulmonary Embolism Rate/Dose Change 07/15/2016 3:17 AM EST 1,300 [...] Given 07/19/2016 1:09 PM EST 1 drop ghkjxcll-zcdviuumd-afvgyccrgboob (DEXACINE) Given 07/19/2016 8:42 PM EST 1 Tube 3.5 mg/g-10,000 unit/g-0.1 % ophthalmic ointment 1 Tube 1 Tube, Right Eye, NIGHTLY, First dose on Marilyn 07/14/16 at 2100, Until Discontinued, Routine Given 07/18/2016 9:55 PM EST 1 Tube Given 07/17/2016 8:56 PM EST 1 Tube ayihnpmt-eysbnpdyq-cmavfpfrejfej (DEXACINE) Given 07/22/2016 9:06 AM EST 1 [...] Intravenous, EVERY 8 HOURS PRN, Starting on Mon07/17/16 at 2232, Until Mon07/18/16 at 1056, Nausea [...] Oral, EVERY 4 HOURS PRN, Starting on Mon07/14/16 at 1936, Until Mon07/18/16 at 0842, Pain, [...] 20 mg, Oral, DAILY, First dose on Marilyn 07/14/16 at 1730, Until Discontinued, DO NOT CRUSH [...] 3.8 See instructions for Potassium Protocol in online policies., Routine prednisoLONE acetate (PRED FORTE) [...] 4,000 mL/hr, Intravenous, ONCE, 1 dose, On Marilyn 07/14/16 at 0940 sodium chloride 0.9% 1,000 mL IV bolus Given 07/15/2016 10:58 AM EST 250 mL/hr at 250 mL/hr, Intravenous, ONCE, 1 dose, On Mon07/15/16 at 0930 sodium chloride 0.9% 500 mL IV bolus Given 07/14/2016 9:27 PM EST 125 mL/hr at 125 mL/hr, Intravenous, ONCE, 1 dose, On Mon07/14/16 at 2145 sodium chloride 0.9% infusion New Bag 07/14/2016 9:11 AM EST 100 mL/hr 100 mL/hr 100 mL/hr, Intravenous, CONTINUOUS, Starting on Mon07/14/16 at 0904, Until Mon07/14/16 at 1413 sodium chloride 0.9% infusion New [...] 25 mg, Oral, ONCE, 1 dose, On Mon07/18/16 at 0545, Routine white petrolatum ophthalmic ointment [...] Patient/family refused) 1427 (Given - Provider: Saleem Pradhan RN) 0900 (Not Given - Provider: Pati Ontiveros RN - Reason: Patient/family refused) 10 mg, Rectal, DAILY, First dose on Mon07/20/16 at 1015, Until Discontinued, Routine docusate sodium (COLACE) capsule 100 mg 1020 (Given - Provider: Carolyn Flannery RN)2147 (Given - Provider: Mary Donis RN) 1028 (Given - Provider: Saleem Pradhan RN)2044 (Given - Provider: Hamida Roque RN) 0904 (Given - Provider: Pati Anderson RN) 100 mg, Oral, 2 TIMES DAILY, First dose on Mon07/15/16 at 0915, Until Discontinued, Routine enoxaparin (LOVENOX) injection 80 mg 1020 (Given - Pro vider: Carolyn Flannery RN)2147 (Given - Provider: Mary Donis RN) 1030 (Given - Provider: Saleem Pradhan RN)2046 (Given - Provider: Hamida Roque RN) 0905 (Given - Provider: Pati Anderson, ALLIE) 80 mg, Subcutaneous, EVERY 12 HOURS, Fir st dose on Mon07/15/16 at 1600, Until Discontinued, Dose rounded per P&T Policy, Routine melatonin tablet 3 mg 2146 (Given - Provider: Mary lopez RN) 2044 (Given - Provider: Hamida Roque, ALLIE) 3 mg, Oral, NIGHTLY, First dose on Mon at 2100, Until Discontinued, Routine jnmmnskj-ntdzwzbmx-fkfpydvmpuunv (DEXACI NE) 3.5 mg/g-10,000 unit/g-0.1 % ophthalmic ointment 1 Tube 2145 (Given - Provider: Mary Donis RN) 103 (Given - Provider: Saleem Pradhan RN)2051 (Given - Provider: Hamida Roque RN) 0906 (Given - Provider: Pati Anderson, ALLIE) [...] Routine polyethylene glycol (MIRALAX) packet 17 g 2146 (Given - Provider: Mary Donis RN) 1028 (Given - Provider: Saleem martinez RN)2042 (Given - Provider: Hamida Roque, ALLIE) 0903 (Given - Provider: Pati Anderson, ALLIE) [...] Pradhan RN)1300 (Not Given - Provider: Noelle Jamison RN - Reason: Patient/family refused)1700 (Not Given - Provider: Noelle Jamison RN - Reason: See comment - Comment: pt states only gettin 0905 (Given - Provider: Pati Anderson, ALLIE)1300 (Not Given - Provider: Pati Anderson RN - Reason: Patient/family refused - Comment: pt only doing twice a day) 1 drop, Right Eye, 4 TIMES DAILY, First dose on Marilyn 07/14/16 at 1700, Until Discontinued, Routine 214 (Given - Provider: Mary Donis RN) g BID p er eye Dr yesterday)2045 (Given - Provider: Hamida Roque, ALLIE) senna (SENOKOT) tablet 8.6 mg 1022 (Given - Provider: Carolyn Flannery, ALLIE)2147 (Given - Provider: Mary Donis, ALLIE) 1027 (Given - Provider: Saleem Pradhan RN)204 (Given - Provider: Hamida Roque, ALLIE) 0904 (Given - Provider: Pati Anderson, ALLIE) 8.6 mg, Oral, 2 TIMES DAILY, First dose on Mon07/15/16 at 0915, Until Discontinued, Routine white petrolatum ophthalmic ointment 1024 (Given - Pro vider: Carolyn Flannery RN)1545 (Given - Provider: Freeman May RN)2148 (Given - Provider: Mary Donis, ALLIE)2245 (Not Given - Provider: Mary Donis RN - Reason: See co mment - Comment: Previous admin given late.) 1036 (Given - Provider: Saleem Pradhan RN)1617 (Given - Provider: Noelle Jamison, ALLIE)2053 (Given - Provider: Hamida Roque, ALLIE)2200 (Not Given - Provider: Hamida Roque RN - Reason: Patient/family refused) 0900 (Not Given - Provider: Pati Ontiveros RN - Reason: Patient/family refused)1300 (Not Given - Provider: Pati Anderson RN - Reason: Patient/family refused) Both Eyes, 4 TIMES DAILY, First dose on Mon07/15/16 at 1700 PRN Medication Order 07/20/2016 07/21/2016 07/22/2016 acetaminophen (TYLENOL) tablet 650 mg 1105 (Given - Provider: Pati Anderson, ALLIE)1514 (Given - Provider: Pati Anderson, RN) 650 mg, Oral, EVERY 4 HOURS PRN, Startin g Mon07/15/16 at 0329, Until Mon07/22/16 at 1727, Pain, Maximum dose of acetaminophen is 4000 mg from all sources in 24 hours., Routine gadobutrol (GADAVIST) 1 mMol/mL injection 8 mL (COMPLE NORA) 2054 (Given - Provider: Cody Taylor) 8 mL, Intravenous, ONCE PRN, 1 dose, Sta rting Mon07/20/16 at 2111, Until Mon07/20/16 at 205, Per Protocol, Routine ondansetron (ZOFRAN) injection 4 mg 4 mg, Intravenous, EVERY 8 HOURS PRN, St arting Mon07/18/16 at 1114, Until Mon07/22/16 at 1727, Nausea oxyCODONE (ROXICODONE) 5 mg/5 mL solution 5-15 mg 0221 (Given - Provider: Mary Donis RN)0629 (Given - Provider: Mary Donis RN)1540 (Given - Provider: Jovan Romero)2001 (Given - Provider: Mary Donis, ALLIE) 0023 (Given - Provider: Mary Donis, ALLIE)0444 (Given - Provider: Mary Donis RN)1219 (Given - Provider: Noelle Jamison, ALLIE)1622 (Given - Provider: Noelle Jamison, ALLIE)2056 (Given - Provider: Hamida Roque, ALLIE) 0358 (Given - Provider: Hamida Rouqe RN)1105 (Given - Provider: Pati Anderson RN)1514 (Given - Provider: Pati Anderson RN) 5-15 mg, Oral, EVERY 4 HOURS PRN, Starti ng Mon 07/18/16 at 1450, Until Mon07/22/16 at 1727, Pain, Administer 5mg for pain scale 1-4, 10mg for pain 5-7, and 15 for pain 8-10, Routine prochlorperazine (COMPAZINE) injection 10 mg 10 mg, Intravenous, EVERY 6 HOURS PRN, S tarting 07/18/16 at 1114, Until Mon07/22/16 at 1727, Nausea, Routine documented in this encounter Care Teams Mol[employer] Car[employer] Operator Relationship Specialty Start Date End Date Berkley Madrigal MD PCP - General 04/13/10 02/15/18 KRYSTLE Bray [address] [place] [address] documented as of this encounter
--- OUTSIDE RECORDS SUMMARY | 2022-03-25 01:29 | XMS_ITS | Encounter Summary ---
:1950 Author Organization [facility] [place] [address] Care Team Providers Name Role Phone Berkley Madrigal MD Primary Care Provider Reason for Visit Reason Comments Follow-up Encounter Details Date Type Department Care Team Description 02/01/2016 Office Visit Hematology and Alan Livingston M D [facility] DR HEMATOLOGY/[place] [address] CLL (chronic Oncology at [facility] Nilam So APRN [facility] DR HEMATOLOGY/[place] [address] lymphocytic leukemia) [facility] Rachel Simpson DO [facility] DR HEMATOLOGY/[place] [address] [place] [phone] Social History Tobacco Use Types Packs/Day Years [...] doing well. She spent some time in [facility] visiting her daughter this Summer. Found [place] very beautiful. 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 Hoping to retire after another year of [...] Fischer MD [facility] [place] [address] Oncology Alyssa Joseph [address] [place] [address] 03/25/2022 Infusion Hematology and Oncology 03/31/2022 Office Visit Hematology and Alan Livingston M D [facility] HEMATOLOGY/[place] [address] Oncology Nilam So APRN [facility] HEMATOLOGY/[place] [address] 04/15/2022 Office Visit Ángel Hill Oncology MD [facility] ONCOLOGY [place], [place] [address] (Wo rk) 04/15/2022 Infusion Hematology and Oncology 04/15/2022 Office Visit Hematology and Jazzy Armendariz R D Oncology [facility] CESAR HEMATOLOGY AND ONCOLOGY [place], [place] 0375 (Wo rk) 09/05/2022 Scheduled View Only Obstetrics and Nurse, Julian COLEMAN, clinical advisor 09/05/2022 Office Visit Obstetrics and Shazia Whitley APRN Gynecology [facility] UROGYNECOLOGY [place], [place] [address] (Wo rk) documented as of this encounter Results Lactate Dehydrogenase (06/06/2016 2:14 PM EST) athologist Signature LDH 210 110 - [address] [facility] unit/L [facility] Specimen Anatomical Collection Method Collection Time Receive d Time (Source) Location / / Volume Laterality Blood specimen 06/06/2016 2:14 PM 017 2:20 (specimen) EST PM EST Resulting Agency Comment Spec In Lab Alan Livingston MD CHEMISTRY ORDERABLES Performing Organization Address City/State/ZIP [place] [address] (ABNORMAL) Comprehensive metabolic panel (non-fasting) (06/06/2016 2:14 PM EST) athologist Signature Glucose Lvl 92 65 - [address] [facility] mg/dL [facility] Comment: Diabetes: >=200 mg/dL plus symp toms BUN 18 8 - 18 mg/dL [facility] Creatinine 0.97 0.70 - 1.20 mg/dL [facility] Comment: Please note that the pediatric reference intervals supplied above were not validated at [facility]. Results from pediatri c patients should be interpreted in conjunction to the patient's age, height and muscle mass. Sodium 144 135 - 145 mmol/L [facility] Potassium See Note 3.5 - [...] estions. Chloride 104 98 - 107 mmol/L [facility] CO2 27 22 - 31 mmol/L [facility] Anion Gap 13 5 - 15 mmol/L [facility] Calcium 9.0 8.5 - 10.5 mg/dL [facility] Total Protein 6.4 6.1 - 8.0 gm/dL [facility] Albumin 4.3 3.2 - 5.2 gm/dL [facility] AST 25 0 - 30 unit/L [facility] ALT 17 0 - 30 unit/L [facility] Alk Phos 68 40 - 104 unit/L [facility] Total Bilirubin <0.2 (L) 0.2 - 1.3 mg/dL [facility] Bili, Direct <0.1 0.0 - 0.3 mg/dL [facility] Estimated GFR 57 (L) >=60 [facility] Comment: This estimated GFR [...] the following links into your internet browser. [email or web address] Specimen Anatomical Collection Method Collection Time Receive d Time (Source) Location / / Volume Laterality Blood specimen 06/06/2016 2:14 PM 017 2:20 (specimen) EST PM EST Resulting Agency Comment Spec In Lab Alan Livingston MD CHEMISTRY ORDERABLES Performing Organization Address City/State/ZIP [place] [address] documented in this encounter Visit Diagnoses Diagnosis CLL (chronic lymphocytic leukemia) Chronic lymphoid leukemia, without menti on of having achieved remission Colon cancer metastasized to liver Malignant neoplasm of colon, unspecified site documented in this encounter Care Teams Telesales Supervisor Relationship Specialty Start Date End Date Berkley Madrigal MD PCP - General 04/13/10 02/15/18 AYLEEN D [address] [id number] documented as of this encounter
--- OUTSIDE RECORDS SUMMARY | 2022-03-25 01:29 | XMS_ITS | Encounter Summary ---
:1950 Author Organization [facility] [place] [address] Care Team Providers Name Role Phone Berkley Madrigal MD Primary Care Provider Encounter Details Date Type Department Care Team Description 06/06/2016 Hospital Encounter Hematology and CLL ([facility] Oncology at [facility] lymphocytic leukemia) [place] [phone] Social History Tobacco Use Types Packs/Day [...] MD [facility] [place] [address] Oncology Alyssa Joseph, [address] [place] [address] 03/25/2022 Infusion Hematology and Oncology 03/31/2022 Office Visit Hematology and Alan Livingston M D [facility] DR HEMATOLOGY/[place] [address] Oncology Nilam So APRN [facility] HEMATOLOGY/[place] [address] 04/15/2022 Office Visit Hematology and Ángel Fischer, Oncology [facility] ONCOLOGY [place], [place] 0375 (Wo rk) 04/15/2022 Infusion Hematology and Oncology 04/15/2022 Office Visit Hematology and Jazzy Armendariz R D Oncology [facility] DRIVE HEMATOLOGY AND ONCOLOGY [place], [place] 0[address] (Wo rk) 09/05/2022 Scheduled View Only Obstetrics and Nurse, Julian COLEMAN, operator lights 09/05/2022 Office Visit Obstetrics and Jorge Whitley APRN Gynecology [facility] UROGYNECOLOGY [place], [place] [address] (Wo rk) documented as of [...] Organization Address City/State/[place] [address] (ABNORMAL) Differential, Automated (06/06/2016 2:14 PM EST) [facility] gist Method Time Signature Neutrophils % 3.3 % [facility] Neutr Abs (ANC) 5.50 1.70 - [facility] 6.10 [facility] x10(3)/[facility] LABORATORY Lymphocytes % 95.5 % [facility] Lymphocytes Abs 151.6 (H) 0.9 - 3.2 [facility] x10(3)/[facility] LABORATORY Monocytes % 0.7 % [facility] Monocyte Abs 1.0 (H) 0.3 - 0.9 [facility] x10(3)/[facility] LABORATORY Eosinophils % 0.2 % [facility] Eosinophils Abs 0.3 0.0 - 0.4 [facility] x10(3)/[facility] LABORATORY Basophils % 0.1 % [facility] Basophils Abs 0.1 0.0 - 0.1 [facility] x10(3)/[facility] LABORATORY Immature Gran % 0.20 % [facility] Comment: Immature granulocytes(IG's)percentage an d absolute count will include metamyelocytes, myelocytes, and promyelo cytes. Blood smears from CBCs yielding IG's will be scanned manually for concor dance. If this scan disagrees with the automated IG or if promyelocytes are not ed, a manual differential will be performed. Claudia Gran Abs 0.24 (H) 0.00 - 0.04 x10(3)/[facility] LABORATORY Specimen Anatomical Collection Method Collection Time Receive d Time (Source) Location / / Volume Laterality Blood specimen 06/06/2016 2:14 PM 017 2:20 (specimen) EST PM EST Resulting Agency Comment Spec In Lab Alan Livingston MD HEMATOLOGY ORDERABLES Performing Organization Address City/State/[place] [address] (ABNORMAL) Hemogram (06/06/2016 2:14 PM EST) athologist Signature WBC 158.7 4.0 - 9.5 [facility] (Critical) x10(3)/[facility] LABORATORY Comment: Please note: Patients with WBC greater t jaeger 100,000 may have falsely elevated potassium levels. Contact the Clinical C hemistry Laboratory if there are any questions. CALLED BY TO WHIT LAZARO 3K AT 1450. This result has been called to JORGE [id number] by JUJU CAVAZOS on 06 06 2016 at 1602, and has been read back. RBC 4.52 4.00 - 5.21 x10(6)/[facility] LABORATORY Hemoglobin 12.9 11.7 - 15.5 gm/dL [facility] Hematocrit 42.0 35.7 - 45.8 % [facility] MCV 92.9 82.6 - 94.4 [facility] LABORATORY MCH 28.5 27.1 - 32.0 pg [facility] MCHC 30.7 (L) 31.7 - 35.0 gm/dL [facility] LAB[facility] Platelets 179 145 - 357 x10(3)/[facility] LABORATORY RDWSD 46.5 (H) 37.0 - 46.0 [facility] LABORATORY RDWCV 14.0 11.5 - 14.1 % [facility] LAB[facility]AT[facility] MPV 10.5 7.6 - 12.9 [facility] LABORATORY nRBC % Auto 0.0 % [facility] LABOR[facility]ORY nRBC Abs Auto 0.000 0.000 - 0.000 x10(3)/[facility] LABORATORY Specimen Anatomical Collection Method Collection Time Receive d Time (Source) Location / / Volume Laterality Blood specimen 06/06/2016 2:14 PM 017 2:20 (specimen) EST PM EST Resulting Agency Comment Spec In Lab Alan Livingston MD HEMATOLOGY ORDERABLES Performing Organization Address City/[facility]/ZIP Code Phon e Number [address] Lactate Dehydrogenase (06/06/2016 2:14 PM EST) athologist Signature LDH 210 110 - 220 [facility] unit/L [facility]ORY Specimen Anatomical Collection Method Collection Time Receive d Time (Source) Location / / Volume Laterality Blood specimen 06/06/2016 2:14 PM 017 2:20 (specimen) EST PM EST Resulting Agency Comment Spec In Lab Alan Livingston MD CHEMISTRY ORDERABLES Performing Organization Address City/[facility] [place] [address] (ABNORMAL) Comprehensive metabolic panel (non-fasting) (06/06/2016 2:14 PM EST) athologist Signature Glucose Lvl 92 65 - 199 [facility] mg/dL [facility] Comment: Diabetes: >=200 mg/dL plus symp toms BUN 18 8 - 18 mg/dL [facility] Creatinine 0.97 0.70 - 1.20 mg/dL [facility] Comment: Please note that the pediatric reference intervals supplied above were not validated at [facility]. Results from pediatri c patients should be interpreted in conjunction to the patient's age, height and muscle mass. Sodium 144 135 - 145 mmol/L [facility] Potassium See Note 3.5 - 5.0 mmol/L [facility] Comment: Plasma Potassium result [...] estions. Chloride 104 98 - 107 mmol/L [facility] CO2 27 22 - 31 mmol/L [facility] Anion Gap 13 5 - 15 mmol/L [facility] Calcium 9.0 8.5 - 10.5 mg/dL [facility] Total Protein 6.4 6.1 - 8.0 gm/dL [facility] Albumin 4.3 3.2 - 5.2 gm/dL [facility] AST 25 0 - 30 unit/L [facility] ALT 17 0 - 30 unit/L [facility] Alk Phos 68 40 - 104 unit/L [facility] Total Bilirubin <0.2 (L) 0.2 - 1.3 mg/dL [facility] Bili, Direct <0.1 0.0 - 0.3 mg/dL [facility] Estimated GFR 57 (L) >=60 [facility] Comment: This estimated GFR (eGFR) [...] the following links into your internet browser. [email or web address] Specimen Anatomical Collection Method Collection Time Receive d Time (Source) Location / / Volume Laterality Blood specimen 06/06/2016 2:14 PM 017 2:20 (specimen) EST PM EST Resulting Agency Comment Spec In Lab Alan Livingston MD CHEMISTRY ORDERABLES Performing Organization Address City/State/[place] [address] documented in this encounter Visit Diagnoses Diagnosis CLL (chronic lymphocytic leukemia) Chronic lymphoid leukemia, without menti on of having achieved remission Colon cancer metastasized to liver Malignant neoplasm of colon, unspecified site documented in this encounter Care Teams Accounting Representative Relationship Specialty Start Date End Date Berkley Madrigal MD PCP - General 04/13/10 02/15/18 AYLEEN Bray [address] [place] [address] documented as of this encounter
--- OUTSIDE RECORDS SUMMARY | 2022-03-25 01:29 | XMS_ITS | Encounter Summary ---
:1950 Author Organization [facility] [address] Care Team Providers Name Role Phone Berkley Madrigal MD Primary Care Provider Encounter Details Date Type Department Care Team Description 06/06/2016 Office Visit Hematology and lAan Livingston M D [facility] DR HEMATOLOGY/[place] [address] CLL (chronic Oncology at [facility] Nilam So APRN [facility] DR HEMATOLOGY/[place] [address] lymphocytic leukemia) [facility] Rachel Simpson [facility] HEMATOLOGY/[place] [address] [place] [phone] Social History Tobacco Use Types Packs/Day Years [...] then. Rachel Simpson DO Hematology-Oncology Fellow Pager [phone] 06/06/2016 4:08 PM Alan Livingston MD - [...] Specialty Care Team Description 03/25/2022 Office Visit Ánegl Hill MD [facility] [place] [address] Oncology Alyssa Joseph [address] [place] [address] 03/25/2022 Infusion Hematology and Oncology 03/31/2022 Office Visit Hematology and Alan Livingston M D [facility] DR HEMATOLOGY/[place] [address] Oncology Nilam So [facility] HEMATOLOGY/[place] [address] 04/15/2022 Office Visit Ángel Hill Oncology MD [facility] ONCOLOGY [place], [place] 0375 (Wo rk) 04/15/2022 Infusion Hematology and Oncology 04/15/2022 Office Visit Hematology and Jazzy Armendariz R D Oncology [facility] CESAR HEMATOLOGY AND ONCOLOGY [place], [place] 0375 (Wo rk) 09/05/2022 Scheduled View Only Obstetrics and Nurse, Julian COLEMAN, statistical methods professor 09/05/2022 Office Visit Obstetrics and Shazia Whitley APRN Gynecology [facility] UROGYNECOLOGY [place], [place] 0[address] (Wo rk) documented as of this encounter Results (ABNORMAL) Immunoglobulins, Quantitative (09/26/2016 2:50 PM EDT) athologist Signature IgG 478 (L) 700 - 1,600 [facility] mg/dL [facility] IgA 65 (L) 70 - 400 [facility] mg/dL [facility] IgM 27 (L) 40 - 230 [facility] mg/dL [facility] Specimen Anatomical Collection Method Collection Time Receive d Time (Source) Location / / Volume Laterality Blood specimen 09/26/2016 2:50 PM 017 3:11 (specimen) EDT PM EDT Resulting Agency Comment Spec In Lab Alan Livingston MD CHEMISTRY ORDERABLES Performing Organization Address City/[facility]/ZIP Code Phon e Number [address] Lactate Dehydrogenase (09/26/2016 2:50 PM EDT) athologist Signature LDH 204 110 - 220 [facility] unit/L [facility] Specimen Anatomical Collection Method Collection Time Receive d Time (Source) Location / / Volume Laterality Blood specimen 09/26/2016 2:50 PM 017 3:11 (specimen) EDT PM EDT Resulting Agency Comment Spec In Lab Alan Livingston MD CHEMISTRY ORDERABLES Performing Organization Address City/[facility]/ZIP [facility] Phon e Number [address] (ABNORMAL) Comprehensive metabolic panel (non-fasting) (09/26/2016 2:50 PM EDT) athologist [facility] Glucose Lvl 124 65 - 199 [facility] mg/dL [facility] Comment: Diabetes: >=200 mg/dL plus symp toms BUN 16 8 - 18 mg/dL [facility]ORY Creatinine 0.90 0.70 - 1.20 mg/dL [facility]ORY Comment: Please note that the pediatric reference intervals supplied above were not validated at [facility]. Results from pediatri c patients should be interpreted in conjunction to the patient's age, height and muscle mass. Sodium 143 135 - 145 mmol/L [facility]ORATORY Potassium 4.2 3.5 - 5.0 mmol/L [facility] LABOR[facility]ORY Comment: Please note: ??Patients with WBC >100,00 0 may have falsely elevated Potassium levels. ??For accurate Potassium quantif ication in these patients send serum separator tube (gold top) for subsequent determinations. ??Contact the Clinical Chemistry Laboratory if there are any qu estions. Chloride 100 98 - 107 mmol/L [facility]ORY CO2 29 22 - 31 mmol/L [facility] Anion Gap 14 5 - 15 mmol/L [facility] Calcium 9.3 8.5 - 10.5 mg/dL [facility] LABORATORY Total Protein 6.6 6.1 - 8.0 gm/dL [facility] Albumin 4.4 3.2 - 5.2 gm/dL [facility] AST 19 0 - 30 unit/L [facility] ALT 22 0 - 30 unit/L [facility] Alk Phos 67 40 - 104 unit/L [facility] Total Bilirubin <0.2 (L) 0.2 - 1.3 mg/dL [facility] LABORATORY Bili, Direct <0.1 0.0 - 0.3 mg/dL [facility]OR[facility]ORY Estimated GFR >60 >=60 [facility] Comment: This estimated GFR (eGFR) [...] the following links into your internet browser. [email or web address] Specimen Anatomical Collection Method Collection Time Receive d Time (Source) Location / / Volume Laterality Blood specimen 09/26/2016 2:50 PM 017 3:11 (specimen) EDT PM EDT Resulting Agency Comment Spec In Lab Alan Livingston MD CHEMISTRY ORDERABLES Performing Organization Address City/State/[place] [address] documented in this encounter Visit Diagnoses Diagnosis CLL (chronic lymphocytic leukemia) Chronic lymphoid leukemia, without menti on of having achieved remission Colon cancer metastasized to liver Malignant neoplasm of colon, unspecified site documented in this encounter Care Teams Tissue Recovery Technician Relationship Specialty Start Date End Date Berkley Madrigal MD PCP - General 04/13/10 02/15/18 AYLEEN Bray [address] [place] [address] documented as of this encounter
--- OUTSIDE RECORDS SUMMARY | 2022-03-25 01:29 | XMS_ITS | Encounter Summary ---
:1950 Author Organization [facility] [place] [address] Care Team Providers Name Role Phone Berkley Madrigal MD Primary Care Provider Reason for Visit Auth/Cert Specialty Diagnoses / Procedures Referred By Contact Refer red To Contact Diagnoses CLL (chronic lymphocytic leukemia) Pulmonary embolism Referral ID Status Reason Start Date Expiration Date Visits Requ ested Visits Authorized [id number] 1 1 Encounter Details Date Type Department Care Team Description 07/11/2016 Surgery Main Operating Room Merrick Coats VITRECTOMY, W/ Zaria Valle MD MEMBRANE STRIPPING, [facility] DR INTRAOCULAR TAMPONADE [facility] OPHTHALMOLOGY DEPT. (WRVU 16.33) [place] [address] [place] [address] [phone] Social History Tobacco Use Types Packs/Day Years [...] have additional concerns or questions please call [phone] and ask for your surgeon or the doctor non acoustic operator. Patient InstructionsMerrick Coats MD - 07/11/2016 10:35 AM EST Positioning [...] ice packs Call the Eye Clinic at [phone] and ask for the doctor non acoustic operator if you having severe pain, nauseaor vomiting [...] documented in this encounter H&P Notes Merrick Coats MD - 07/11/2016 8:37 AM EST No interval exam,ROS or medication changes CBC MD documented in this encounter Miscellaneous Notes Op Note - Merrick Coats MD - 07/11/2016 10:38 AM EST [facility] [place] Patient Name: Carol Keller : [id number] MR#: [id number] Case Date: 07/11/2016 Surgeon: Surgeon(s) and Role: * Merrick Coats MD - Primary PREOPERATIVE DIAGNOSIS: Epiretinal membrane and macular hole, right eye. POSTOPERATIVE DIAGNOSIS: Epiretinal membrane and macular hole, right eye. SURGEON: Merrick Coats MD ANESTHESIA: General. COMPLICATIONS: None. OPERATIONS PERFORMED: [...] but they should call the eye physician non acoustic operator in the overnight period with any severe nausea, vomiting, or any other related concerns. Attestation: Case Date: 07/11/2016 I performed this procedure without the involvement of a resident. MERRICK COATS MD 07/11/2016 Brief Op Note - Merrick Coats MD - 07/11/2016 10:36 AM EST Brief Operative Note Patient Name: Carol Keller : [id number] MR#: [id number] Case Date: 07/11/2016 Surgeon: Surgeon(s) and Role: * Merrick Coats MD - Primary Preoperative diagnosis: macular pucker [...] Fischer MD [facility] [place] [address] Oncology Alyssa Joseph, [address] [address] 03/25/2022 Infusion Hematology and Oncology 03/31/2022 Office Visit Hematology and Alan Livingston M D [facility] HEMATOLOGY/[place] [address] Oncology Nilam So APRN [facility] HEMATOLOGY/[place] [address] 04/15/2022 Office Visit Hematology and Ángel Fischer Oncology [facility] ONCOLOGY [place], [place] [address] (Wo rk) 04/15/2022 Infusion Hematology and Oncology 04/15/2022 Office Visit Hematology and Jazzy Armendariz R D Oncology [facility] CESAR HEMATOLOGY AND ONCOLOGY [place], [place] [address] (Wo rk) 09/05/2022 Scheduled View Only Obstetrics and Nurse, Oboneal COLEMAN, reading recovery teacher 09/05/2022 Office Visit Obstetrics and Shazia Whitley APRN Gynecology [facility] UROGYNECOLOGY [place], [place] [address] (Wo rk) documented as of [...] PRN, Starting on 07/11/16 at 0937, Until 07/11/16 at 1355, Intra-Operative (Intra-Procedure), Routine balanced salt (BSS) Given 07/11/2016 9:37 AM 1 Bottle 19- Surgical Site irrigation solution EST ONCE PRN, Starting on 07/11/16 at 0937, Until 07/11/16 at 1355, Intra-Operative (Intra-Procedure), Routine balanced salt (BSS) Given 07/11/2016 9:37 AM 3 Bottles 19- Surgical Site irrigation solution EST ONCE PRN, Starting on 07/11/16 at 0937, Until 07/11/16 at 1355, Intra-Operative (Intra-Procedure), Routine BUpivacaine (PF) (MARCAINE) 0.75 % Given 07/11/2016 10:23 AM EST 1.25 mLs Right Eye (7.5 mg/mL) injection ONCE PRN, Starting on 07/11/16 at 0937, Until 07/11/16 at 1355, Intra-Operative (Intra-Procedure), Routine Given 07/11/2016 9:37 AM EST 1.25 mLs Right Eye ceFAZolin (ANCEF) injection Given 07/11/2016 10:21 AM 100 mg 19- Surg ical Site ONCE PRN, Starting on Mon EST 07/11/16 at 0938, Until 07/11/16 at 1355, Intra-Operative (Intra-Procedure), Routine dexamethasone (DECADRON) Given 07/11/2016 10:21 AM EST 2 mg 19- Surgical Site injection ONCE PRN, Starting on 07/11/16 at 0938, Until 07/11/16 at 1355, Intra-Operative (Intra-Procedure), Routine dorzolamide-timolol (PF) (COSOPT) 2-0.5 % Given 07/11/2016 10:22 AM EST 1 drop ophthalmic solution ONCE PRN, Starting on 07/11/16 at 0938, Until 07/11/16 at 1355, Intra-Operative (Intra-Procedure), Routine EPINEPHrine injection [...] Given 07/11/2016 8:09 AM EST 1 drop jykdvpxt-qrjrnnixp-oqtjmxgethsvw (DEXACINE) Given 06/23 10:22 AM EST 1 [...] QUINN) 08 (Given - Provider: Arron Maria RN)08 (Given - Provider: Arron Maria RN)08 [...] 1) 0845 (Patch Applied - Provider: Arron Maria, RN)0900 (Due) 1 patch, Transdermal, ONCE, 1 [...] solution (CANCELED) 0937 (Given - Provider: Merrick Coats MD) ONCE PRN, Starting Mon07/11/16 at 0937, Until Mon07/11/16 at 1355, Intra- Operative (Intra-Procedure), Routine balanced salt (BSS) irrigation solution (CANCELED) 0937 (Given - Provider: Merrick Coats MD) ONCE PRN, Starting Mon07/11/16 at 0937, Until Mon07/11/16 at 1355, Intra- Operative (Intra-Procedure), Routine balanced salt (BSS) irrigation solution (CANCELED) 0937 (Given - Provider: Merrick Coats MD) ONCE PRN, Starting Mon07/11/16 at 0937, Until Mon07/11/16 at 1355, Intra- Operative (Intra-Procedure), Routine BUpivacaine (PF) (MARCAINE) 0.75 % (7.5 mg/mL) injection (CANCEL ED) 0937 (Given - Provider: Merrick Coats MD)1023 (Given - Provider: Merrick Coats MD) ONCE PRN, Starting 07/11/16 at 0937, Until 07/11/16 at 1355, Intra- Operative (Intra-Procedure), Routine ceFAZolin (ANCEF) injection (CANCELED) 1021 (Given - Provider: Merrick Coats MD - Comment: sc post op) ONCE PRN, Starting 07/11/16 at 0938, Until 07/11/16 at 1355, Intra- Operative (Intra-Procedure), Routine dexamethasone (DECADRON) injection (CANCELED) 1021 (Given - Provider: Merrick Coats MD - Comment: sc post op) ONCE PRN, Starting 07/11/16 at 0938, Until 07/11/16 at 1355, Intra- Operative (Intra-Procedure), Routine dorzolamide-timolol (PF) (COSOPT) 2-0.5 % ophthalmic solution (C ANCELED) 1022 (Given - Provider: Merrick Coats MD - Comment: post op) ONCE PRN, Starting 07/11/16 at 0938, Until 07/11/16 at 1355, Intra- Operative (Intra-Procedure), Routine EPINEPHrine injection solution (CANCELED) 0938 (Given - Provider: Merrick Coats MD - Comment: in bss+) ONCE PRN, Starting Mon07/11/16 at 0938, Until 07/11/16 at 1355, Intra- [...] injection (CANCELED) 0939 (Given - Provider: Merrick Coats MD)1023 (Given - Provider: Merrick Coats MD) ONCE PRN, Starting 07/11/16 at 0939, Until 07/11/16 at 1355, Intra- Operative (Intra-Procedure), Routine ujjocphn-hywhjtnyp-wdgsxqsjeetkc (DEXACI NE) 3.5 mg/g-10,000 unit/g-0.1 % ophthalmic ointment (CANCELED) 1022 (Giv en - Provider: Merrick Coats MD - Comment: 0.25 ml post op) [...] solution (CANCELED) 0939 (Given - Provider: Merrick Coats MD) ONCE PRN, Starting 07/11/16 at 0939, Until 07/11/16 at 1355, Intra- Operative (Intra-Procedure), Routine promethazine (PHENERGAN) injection 12.5 mg 12.5 mg, Intravenous, EVERY 30 MIN PRN, 2 doses, Starting Mon07/11/16 at 1035, Until Mon07/11/16 at 1355, Nausea, [...] solution (CANCELED) 0939 (Given - Provider: Merrick Coats MD - Comment: pre prep) ONCE PRN, [...] 07/11/16 at 1355, Pain, for 1-4 pain score
for 1-4 pain score Hold for respiratory rate less than 10 per mi nute. Maximum dose: 250 mcg over on e hour.
PACU Recovery, Routine Or fentaNYL (PF) 50 mcg/mL 2mL syringeJump to med 50 mcg, Intravenous, EVERY 5 MIN PRN, St arting 07/11/16 at 1035, Until 07/11/16 at 1355, Pain, for 5-10 pain score
for 5-10 pain score Hold for respiratory rate less than 10 per minute. Maximum dose: 250 mcg over one hour.
PACU Recovery, Routine documented in this encounter Care Teams Semiconductor Wafers Saw Operator Relationship Specialty Start Date End Date Berkley Madrigal MD PCP - General 04/13/10 02/15/18 [facility] Katarina [address] [place] [address] documented as of this encounter
--- OUTSIDE RECORDS SUMMARY | 2022-03-25 01:29 | XMS_ITS | Encounter Summary ---
:1950 Author Organization [facility] [place] [address] Care Team Providers Name Role Phone Berkley Madrigal MD Primary Care Provider Reason for Visit Reason Comments Post Op Encounter Details Date Type Department Care Team Description 07/12/2016 Office Visit Ophthalmology at [facility] Pavan Mancera, [facility] MD [place] [address] OPHTHALMOLOGY DE PT. [place], [place] [address] (Wo rk) Social History Tobacco [...] FOLLOWING EYE SURGERY Eye Medication - Prednisolone ([place] Cap): 1 drop in Right eye 4 [...] day or night. After hours, the hospital hydropress operator will connect you to the doctor road design draftsperson. documented in this encounter Progress Notes Pavan [...] MD [facility] [place] [address] Oncology Alyssa Joseph[address] [place] [address] 03/25/2022 Infusion Hematology and Oncology 03/31/2022 Office Visit Hematology and Alan Livingston M D [facility] HEMATOLOGY/[place] [address] Oncology Nilam So TIE INSPECTOR [facility] HEMATOLOGY/[place] [address] 04/15/2022 Office Visit Hematology and Ángel Fischer, Oncology [facility] ONCOLOGY [place], [place] [address] (Wo rk) 04/15/2022 Infusion Hematology and Oncology 04/15/2022 Office Visit Hematology and Jazzy Armendariz R D Oncology [facility] DRIVE HEMATOLOGY AND ONCOLOGY [place], [place] [address] (Wo rk) 09/05/2022 Scheduled View Only Obstetrics and NurseJulian II, trimmer helper 09/05/2022 Office Visit Obstetrics and Shazia Whitley APRN Gynecology [facility] UROGYNECOLOGY [place], [place] [address] (Wo rk) documented as of this encounter Visit Diagnoses Diagnosis Macular pucker, bilateral Macular puckering of retina Colon cancer metastasized to liver Malignant neoplasm of colon, unspecified site documented in this encounter Care Teams Animal Care Service Worker Relationship Specialty Start Date End Date Berkley Madrigal MD PCP - General 04/13/10 02/15/18 AYLEEN Bray [address] [place] [address] documented as of this encounter
--- OUTSIDE RECORDS SUMMARY | 2022-03-25 01:29 | XMS_ITS | Encounter Summary ---
:1950 Author Organization [facility] [place] [address] Care Team Providers Name Role Phone Berkley Madrigal MD Primary Care Provider Reason for Visit Auth/Cert Specialty Diagnoses / Procedures Referred By Contact Refer red To Contact Diagnoses CLL (chronic lymphocytic leukemia) Pulmonary embolism Referral ID Status Reason Start Date Expiration Date Visits Requ ested Visits Authorized [id number] 1 1 Encounter Details Date Type Department Care Team Description 07/11/2016 Anesthesia Event Main Operating Room Marciano Chacon MD [facility] [place] [address] [place] [address] [phone] Anesthesia Record Procedure Summary Procedure Name Responsible [...] 07/11/16 0826 by Crow, 07/11/16 1146 by qddx-ldb-javbal catheter ALLIE Sexton John P, RN system; 20 gauge; BSmithRN; intradermal injection; no longer indicated; 07/11/16; 1146 Supraglottic Mask Ventilation: Adjunct 07/11/16 0905 by 07/11 1027 by (2) (opa); LMA Type: Tati Trammell, DIRECTOR DIGITAL ANALYTICS Tati Lau, air-Q; LMA Size: 3 (3.5); DIRECTOR DIGITAL ANALYTICS Inserted by: ZANE Trammell documented in this [...] Stewart MD - 07/11/2016 11:29 AM EST [facility] [place] Department of Anesthesiology Post-procedure Note Patient: Carol Keller Procedure Summary Date Anesthesia Start Anesthesia Stop Room / Location 07/11/16 0859 1036 [facility] OR 21 / [facility] MAIN OR Procedure Diagnosis Surgeon Responsible Provider VITRECTOMY, W/ MEMBRANE STRIPPING, INTRAOCULAR TAMPONADE (WRVU 16.33) (Right Eye) Macular pucker, bilateral (macular pucker andd hole od) Pavan Coffey MD Dodge, Carter P, MD All Anesthesia Providers: Anesthesiologist: Marciano Stewart MD DIRECTOR DIGITAL ANALYTICS: Tati Trammell CRNA Last (1hr) Vitals: BP 123/74 (07/11/16 1115) Temp 36.7 ??C (98.1 ??F) (07/11/16 1032) Pulse Resp 18 (07/11/16 1115) SpO2 92 % (07/11/16 1115) Patient Location: PACU/[facility] Level of Consciousness: Awake and Alert [...] - Other Informed Consent: Plan discussed with DIRECTOR DIGITAL ANALYTICS. PAT Staff Note documented in this encounter Plan of Treatment Upcoming Encounters Date Type Specialty Care Team Description 03/25/2022 Office Visit Hematology Ángel Kimbrough MD [facility] [place] [address] Oncology Alyssa Joseph[address] [place] [address] 03/25/2022 Infusion Hematology and Oncology 03/31/2022 Office Visit Hematology and Alan Livingston M D [facility] DR HEMATOLOGY/[place] [address] Oncology Nilam So APRN [facility] HEMATOLOGY/[place] [address] 04/15/2022 Office Visit Ángel Hill Oncology MD [facility] ONCOLOGY [place], [place] [address] (Wo rk) 04/15/2022 Infusion Hematology and Oncology 04/15/2022 Office Visit Hematology and Jazzy Armendariz R D Oncology [facility] DRIVE HEMATOLOGY AND ONCOLOGY [place], [place] [address] (Wo rk) 09/05/2022 Scheduled View Only Obstetrics and Nurse, Julian COLEMAN RNdevelopment rep 09/05/2022 Office Visit Obstetrics and Shazia Whitley APRN Gynecology [facility] UROGYNECOLOGY [place], [place] [address] (Wo rk) documented as of [...] mg documented in this encounter Care Teams Integrated Marketing Manager Relationship Specialty Start Date End Date Berkley Madrigal MD PCP - General 04/13/10 02/15/18 AYLEEN Bray [address] [place] [address] documented as of this encounter
--- OUTSIDE RECORDS SUMMARY | 2022-03-25 01:29 | XMS_ITS | Encounter Summary ---
:1950 Author Organization [facility] Address [facility] [place] [address] Care Team Providers Name Role Phone Berkley Madrigal MD Primary Care Provider Encounter Details Date Type Department Care Team Description 07/20/2016 Ophth Exam Ophthalmology at [facility] C Pavan Coffey, [facility] [place] [address] [facility] [phone] OPHTHALMOLOGY DE PT. [place], [place] [address] (Wo rk) Social History Tobacco [...] 03/25/2022 Office Visit Hematology Ángel Kimbrough MD [facility] [place] [address] Oncology Alyssa Joseph[address] [place] [address] 03/25/2022 Infusion Hematology and Oncology 03/31/2022 Office Visit Hematology and Alan Livingston M D [facility] HEMATOLOGY/[place] [address] Oncology Nilam So MEDICAL LANGUAGE SPECIALIST [facility] HEMATOLOGY/[place] [address] 04/15/2022 Office Visit Hematology Ángel Kimbrough Oncology [facility] [address] [place], [place] [address] (Wo rk) 04/15/2022 Infusion Hematology and Oncology 04/15/2022 Office Visit Hematology and Jazzy Armendariz R D Oncology [facility] DRIVE HEMATOLOGY AND ONCOLOGY [place], [place] [address] (Wo rk) 09/05/2022 Scheduled View Only Obstetrics and Nurse, Julian COLEMAN, thumb sewer 09/05/2022 Office Visit Obstetrics and Shazia Whitley APRN Gynecology [facility] UROGYNECOLOGY [place], [place] [address] (Wo rk) documented as of this encounter Visit Diagnoses Not on filedocumented in this encounter Care Teams Special Education Kindergarten Teacher Relationship Specialty Start Date End Date Berkley Madrigal MD PCP - General 04/13/10 02/15/18 AYLEEN Katarina [address] [place] [address] documented as of this encounter
--- OUTSIDE RECORDS SUMMARY | 2022-03-25 01:29 | XMS_ITS | Encounter Summary ---
:1950 Author Organization [facility] [place] [address] Care Team Providers Name Role Phone Berkley Madrigal MD Primary Care Provider Reason for Visit Auth/Cert Specialty Diagnoses / Procedures Referred By Contact Refer red To Contact Diagnoses CLL (chronic lymphocytic leukemia) Pulmonary embolism Referral ID Status Reason Start Date Expiration Date Visits Requ ested Visits Authorized [id number] 1 1 Encounter Details Date Type Department Care Team Description 07/11/2016 Hospital Encounter Same Day Program Claude Coffey, at [facility] Merrick Valle MD [facility] DR Perkins OPHTHALMOLOGY DEPT. [place], [place] [address] [phone] Social History Tobacco Use Types Packs/Day Years [...] have additional concerns or questions please call [phone] and ask for your surgeon or the doctor assistant operations manager. Patient InstructionsMerrick Coffey MD - 07/11/2016 10:35 [...] ice packs Call the Eye Clinic at [phone] and ask for the doctor assistant operations manager if you having severe pain, nauseaor vomiting [...] Coffey MD - 07/11/2016 10:38 AM EST [facility] Operative Note Patient Name: Carol Keller : [id number] MR#: [id number] Case Date: 07/11/2016 Surgeon: Surgeon(s) and Role: [...] but they should call the eye physician assistant operations manager in the overnight period with any severe nausea, vomiting, or any other related concerns. Attestation: Case Date: 07/11/2016 I performed this procedure without the involvement of a resident. MERRICK COFFEY MD 07/11/2016 Brief Op Note - Merrick Coffey MD - 07/11/2016 10:36 AM EST Brief Operative Note Patient Name: Carol Keller : [id number] MR#: [id number] Case Date: 07/11/2016 Surgeon: Surgeon(s) and Role: [...] [facility] [place] [address] Oncology Alyssa Joseph[address] [address] 03/25/2022 Infusion Hematology and Oncology 03/31/2022 Office Visit Hematology and Alan Livingston M D [facility] HEMATOLOGY/[place] [address] Oncology Nilam So, [facility] HEMATOLOGY/[place] [address] 04/15/2022 Office Visit Hematology and Ángel Fischer Oncology [facility] ONCOLOGY [place], [place] [address] (Wo rk) 04/15/2022 Infusion Hematology and Oncology 04/15/2022 Office Visit Hematology and Jazzy Armendariz R D Oncology [facility] C[facility]AR HEMATOLOGY AND ONCOLOGY [place], [place] [address] (Wo rk) 09/05/2022 Scheduled View Only Obstetrics and Nurse, Julian COLEMAN, turner off 09/05/2022 Office Visit Obstetrics and Shazia Whitley [facility] Gynecology [facility] UROGYNECOLOGY [place], [place] [address] (Wo rk) documented as of [...] 1 % ophthalmic suspension 1 drop (COMPLETED) 0815 (Given - Provider: Helen Contreras RN) 1 [...] 07/11/16 at 1355, Intra- Operative (Intra-Procedure), Routine balanced salt (BSS) irrigation solution (CANCELED) 0937 (Given - Provider: Merrick Coffey MD) ONCE PRN, Starting 07/11/16 at 0937, Until 07/11/16 at 1355, Intra- Operative (Intra-Procedure), Routine BUpivacaine [...] ONCE PRN, Starting 07/11/16 at 0938, Until Mon07/11/16 at 1355, Intra- Operative (Intra-Procedure), Routine fentaNYL [...] mL), Subcutaneous, ONCE PRN, 1 dose, Starting Mon07/11/16 at 1035, Until 07/11/16 at 1355, for discomfort with PIV insertion, Routine lidocaine (XYLOCAINE) 20 mg/mL (2 %) injection (CANCELED) 0939 (Given - Provider: Merrick Coffey MD)1023 (Given - Provider: Merrick Coffey MD) ONCE PRN, Starting Mon07/11/16 at 0939, Until Mon07/11/16 at 1355, Intra- Operative (Intra-Procedure), Routine gmnuujpr-skzzkzfri-uoxpnarzyskcr (DEXACI NE) 3.5 mg/g-10,000 unit/g-0.1 % ophthalmic ointment (CANCELED) 1022 (Giv en - Provider: Merrick Coffey MD - Comment: 0.25 ml post op) ONCE PRN, Starting Mon07/11/16 at 0939, Until 07/11/16 at 1355, Intra- Operative (Intra-Procedure), Routine ondansetron (ZOFRAN) injection 4 mg 4 mg, Intravenous, EVERY 30 MIN PRN, Sta rting Mon07/11/16 at 1035, Until Mon07/11/16 at 1355, Nausea, May repeat 4 mg once in 30 minutes. If multiple antiemetics ordered, use ondansetron first and if ineffective use prochlorperazine second and if ineffective use promethazine, PACU Recovery povidone-iodine 5 % ophthalmic solution (CANCELED) 938 (Given - Provider: Merrick Coffey MD) ONCE [...] PRN, S tarting Mon07/11/16 at 1035, Until 07/11/16 at 1355, flush, Flush pertains to all indwelling lines. Flush per protocol found in the job aid using the link provided on this medication record., Routine tetracaine (PF) (PONTOCAINE) ophthalmic solution (CANCELED) 938 (Given - Provider: Merrick Coffey MD - Comment: pre prep) ONCE PRN, Starting 07/11/16 at 0939, Until 07/11/16 at 1355, Intra- Operative (Intra-Procedure), Routine Linked [...] Routine documented in this encounter Care Teams Leasing Professional Relationship Specialty Start Date End Date Berkley Madrigal MD PCP - General 04/13/10 02/15/18 [facility] Katarina [address] [place] [address] documented as of this encounter
--- OUTSIDE RECORDS SUMMARY | 2022-03-25 01:29 | XMS_ITS | Encounter Summary ---
:1950 Author Organization [facility] Address [facility] [place] [address] Care Team Providers Name Role Phone Berkley Madrigal MD Primary Care Provider Reason for Visit Reason Comments Blurred Vision Patient returns as scheduled for follow-up evaluation regarding retinal tear. CBC Fernanda Distorted Vision Encounter Details Date Type Department Care Team Description 02/18/2016 Office Visit Ophthalmology at [facility] Pavan Mancera Macular pucker, bilateral (P rimary Dx); [facility] MD Tori CLL (chronic lymphocytic leukemia); Drive [facility] Horseshoe retinal tear, righ t eye; [place] [address] [address] [address] Romeo wallace, right eye [phone] OPHTHALMOLOGY DE PT. [place], [place] 0375 (Wo rk) Social History Tobacco [...] Fischer MD [facility] [place] [address] Oncology Alyssa Joseph, SENIOR SAFETY MANAGEMENT CONSULTANT [address] [place] [address] [place] [address] 03/25/2022 Infusion Hematology and Oncology 03/31/2022 Office Visit Hematology and Alan Livingston M D [facility] HEMATOLOGY/[place] [address] Oncology Nilam So APRN [facility] HEMATOLOGY/[place] [address] 04/15/2022 Office Visit Hematology and Ángel Fischer Oncology [facility] ONCOLOGY [place], [place] 0375 (Wo rk) 04/15/2022 Infusion Hematology and Oncology 04/15/2022 Office Visit Hematology and Jazzy Armendariz R D Oncology [facility] CESAR HEMATOLOGY AND ONCOLOGY [place], [place] 0375 (Wo rk) 09/05/2022 Scheduled View Only Obstetrics and Nurse, Julian COLEMAN, fire protection specialist 09/05/2022 Office Visit Obstetrics and Shazia Whitley APRN Gynecology [facility] UROGYNECOLOGY [place], [place] 0375 (Wo rk) documented as of this encounter Procedures Procedure Name Priority Date/Time Associated Diagnosis Comme nts OCT RETINA - OU - Routine 02/18/2016 3:53 PM Macular pucker, R esults for this BOTH EYES EDT bilateral procedure are i n the results section. documented in this encounter Results OCT [id number] EYES (02/18/2016 3:53 PM EDT) Anatomical Region [...] pucker, right eye Macular puckering of retina Colon cancer metastasized to liver Malignant neoplasm of colon, unspecified site documented in this encounter Care Teams Administrative Law Judge Relationship Specialty Start Date End Date Berkley Madrigal MD PCP - General 04/13/10 02/15/18 AYLEEN Katarina [address] [place] [address] documented as of this encounter
--- OUTSIDE RECORDS SUMMARY | 2022-03-25 01:30 | XMS_ITS | Encounter Summary ---
:1950 Author Organization [facility] [place] [address] Care Team Providers Name Role Phone Berkley Madrigal MD Primary Care Provider Reason for Visit Reason Comments Follow-up Encounter Details Date Type Department Care Team Description 05/25/2015 Office Visit Hematology and Alan Livingston M D [facility] DR HEMATOLOGY/[place] [address] Chronic lymphocytic Oncology at [facility] Nilam So APRN [facility] DR HEMATOLOGY/[place] [address] [place] [address] Social History Tobacco Use Types Packs/Day Years [...] and Ángel Fischer MD [facility] [place] [address] Oncology Alyssa Joseph[address] [place] [address] 03/25/2022 Infusion Hematology and Oncology 03/31/2022 Office Visit Hematology and Alan Livingston M D [facility] DR HEMATOLOGY/[place] [address] Oncology Nilam So, SECOND CHEF [facility] HEMATOLOGY/[place] [address] 04/15/2022 Office Visit Hematology and Ángel Fischer, Oncology [facility] ONCOLOGY [place], [place] 0375 (Wo rk) 04/15/2022 Infusion Hematology and Oncology 04/15/2022 Office Visit Hematology and Jazzy Armendariz R D Oncology [facility] [address] HEMATOLOGY AND ONCOLOGY [place], [place] 0375 (Wo rk) 09/05/2022 Scheduled View Only Obstetrics and Nurse, Julian COLEMAN, investment accountant 09/05/2022 Office Visit Obstetrics and Shazia Whitley APRN Gynecology [facility] UROGYNECOLOGY [place], [place] 0375 (Wo rk) documented as of this encounter Results (ABNORMAL) Comprehensive metabolic panel (non-fasting) (09/28/2015 1:37 PM EDT) athologist Signature Glucose Lvl 97 65 - 199 [facility] mg/dL [facility] LABORATORY Comment: Diabetes: >=200 mg/dL plus symp toms BUN 16 8 - 18 mg/dL [facility] Creatinine 1.05 0.70 - 1.20 mg/dL [facility] Comment: Please note that the pediatric reference intervals supplied above were not validated at [facility]. Results from pediatri c patients should be interpreted in conjunction to the patient's age, height and muscle mass. Sodium 143 135 - 145 mmol/L [facility] Potassium See Note 3.5 - 5.0 mmol/L [facility] [...] Fuente. Chloride 106 98 - 107 mmol/L [facility] CO2 27 22 - 31 mmol/L [facility] Anion Gap 10 5 - 15 mmol/L [facility] Calcium 8.8 8.5 - 10.5 mg/dL [facility] Total Protein 6.2 6.1 - 8.0 gm/dL [facility] Albumin 4.2 3.2 - 5.2 gm/dL [facility] AST 23 0 - 30 unit/L [facility] ALT 15 0 - 30 unit/L [facility] Alk Phos 58 40 - 104 unit/L [facility] Total Bilirubin 0.2 0.2 - 1.3 mg/dL [facility] Bili, Direct 0.1 0.0 - 0.3 mg/dL [facility] Estimated GFR 52 (L) >=60 [facility] Comment: This [...] the following links into your internet browser. [email or web address] Specimen Anatomical Collection Method Collection Time Receive d Time (Source) Location / / Volume Laterality Blood specimen 09/28/2015 1:37 PM 016 1:45 (specimen) EDT PM EDT Resulting Agency Comment Spec In Lab Alan Livingston MD CHEMISTRY ORDERABLES Performing Organization Address City/State/[place] [address] documented in this encounter Visit Diagnoses Diagnosis Chronic lymphocytic leukemia Chronic lymphoid leukemia, without menti on of having achieved remission Colon cancer metastasized to liver Malignant neoplasm of colon, unspecified site documented in this encounter Care Teams Parts Expediter Relationship Specialty Start Date End Date Berkley Madrigal MD PCP - General 04/13/10 02/15/18 AYLEEN D [address] [place] [address] documented as of this encounter
--- OUTSIDE RECORDS SUMMARY | 2022-03-25 01:30 | XMS_ITS | Encounter Summary ---
:1950 Author Organization [facility] [place] [address] Care Team Providers Name Role Phone Berkley Madrigal MD Primary Care Provider Encounter Details Date Type Department Care Team Description 11/24/2014 Hospital Encounter Hematology and CLINIC, DR BENJAMIN Alvarez pennie lymphocytic Oncology at [facility] Alan Livingston MD [facility] HEMATOLOGY/[place] [address] [place] [phone] Social History Tobacco Use Types Packs/Day Years [...] Fischer MD [facility] [place] [address] Oncology Alyssa Joseph, AUDIO VISUAL SPECIALIST [address] [place] [address] [place] [address] 03/25/2022 Infusion Hematology and Oncology 03/31/2022 Office Visit Hematology and Alan Livingston M D [facility] HEMATOLOGY/[place] [address] Oncology Nilam So, [facility] HEMATOLOGY/[place] [address] 04/15/2022 Office Visit Hematology and Ángel Fischer Oncology [facility] ONCOLOGY [place], [place] 0375 (Wo rk) 04/15/2022 Infusion Hematology and Oncology 04/15/2022 Office Visit Hematology and Jazzy Armendariz R D Oncology [facility] DRIVE HEMATOLOGY AND ONCOLOGY [place], [place] 0375 (Wo rk) 09/05/2022 Scheduled View Only Obstetrics and Nurse, Julian COLEMAN, lighting specialist 09/05/2022 Office Visit Obstetrics and Shazia Whitley AUDIO VISUAL SPECIALIST Gynecology [facility] UROGYNECOLOGY [place], [place] 0[address] (Wo rk) documented as of [...] (ABNORMAL) Differential, Manual (11/24/2014 12:04 PM EDT) [facility] gist Method Time Signature Neutrophil % 3 % [...] Organization Address City/State/ZIP Code Phon e Number [address] CERNER MILLENNIUM Nucleated Red Blood Cells (11/24/2014 12:04 PM EDT) athologist Signature nRBC % Auto [...] [facility]/ZIP Code Phon e Number [address] CERNER MILLENNIUM (ABNORMAL) Hemogram (11/24/2014 12:04 PM EDT) athologist Signature WBC 120.8 4.0 - 10.0 CERNER (Critical) x10(3)/mcL MILLENNIUM Comment: PLEASE NOTE: PATIENTS WITH WBC >100,000 MAY HAVE FALSELY ELEVATED POTASSIUM LEVELS. CONTACT THE [facility] CHEMISTRY LABORATORY IF THERE ARE ANY QUESTIONS. This result has been called to naresh celis by DONALD ERVIN on 11.24.14 at 12:36, and has been read lisa k (). RBC 4.38 3.93 - 5.22 x10(6)/mcL CERNER MILLENNIUM Hemoglobin 13.2 11.2 - 15.7 gm/dL CERNER MILL ENNIUM Hematocrit 41.6 34.0 - 45.0 % CERNER MILLENNI UM MCV 95.0 (H) 79.0 - 94.0 fL CERNER MILLENNI UM MCH 30.1 26.6 - 32.2 pg CERNER MILLENNI UM MCHC 31.7 (L) 32.0 - 36.5 gm/dL CERNER MILLE NNIUM Platelets 159 145 - 370 x10(3)/mcL CERNER PR LLENNIUM RDWSD 47.5 (H) 35.0 - 46.0 [...] Organization Address City/State/[place] [address] CERNER MILLENNIUM (ABNORMAL) Lactate Dehydrogenase (11/24/2014 12:04 PM EDT) P athologist Signature LDH 228 (H) 110 - 220 CERNER unit/L MILLENNIUM Specimen Anatomical Collection Method Collection Time Receive d Time (Source) Location / / Volume Laterality Blood specimen 11/24/2014 12:04 5 (specimen) PM EDT 12:08 PM EDT Resulting Agency Comment Spec In Lab Alan Livingston MD CHEMISTRY ORDERABLES Performing Organization Address City/State/[place] [address] CERNER MILLENNIUM (ABNORMAL) Comprehensive metabolic panel (non-fasting) (11/24/2014 12:04 PM EDT) P athologist Signature Glucose Lvl 81 65 - 199 CERNER mg/dL MILLENNIUM Comment: Diabetes: >=200 mg/dL plus symp toms BUN 15 8 - 18 mg/dL CERNER MILLENNIUM Creatinine 1.00 0.70 - 1.20 mg/dL CERNER MILL ENNIUM Comment: Please note that the pediatric reference intervals supplied above were not validated at [facility]. Results from pediatri [...] the following links into your internet browser. [email or web address] Specimen Anatomical Collection Method Collection Time Receive d Time (Source) Location / / Volume Laterality Blood specimen 11/24/2014 12:04 5 (specimen) PM EDT 12:08 PM EDT Resulting Agency Comment Spec In Lab Alan Livingston MD CHEMISTRY ORDERABLES Performing Organization Address City/State/[place] [address] YANELIS SALCIDO documented in this encounter Visit Diagnoses Diagnosis Chronic lymphocytic leukemia Chronic lymphoid leukemia, without menti on of having achieved remission Colon cancer metastasized to liver Malignant neoplasm of colon, unspecified site documented in this encounter Care Teams Road Freight Brake Coupler Relationship Specialty Start Date End Date Berkley Madrigal MD PCP - General 04/13/10 02/15/18 AYLEEN Bray [address] [place] [address] documented as of this encounter
--- OUTSIDE RECORDS SUMMARY | 2022-03-25 01:30 | XMS_ITS | Encounter Summary ---
:1950 Author Organization [facility] Address [facility] [place] [address] Care Team Providers Name Role Phone Berkley Madrigal MD Primary Care Provider Encounter Details Date Type Department Care Team Description 08/08/2014 Orders Only Hematology and Alan Livingston M D Chronic lymphocytic Oncology at [facility] leukemia not having [facility] DR achieved remission Cesar HEMATOLOGY/[place] [address] Y DEPT. [phone] [place], [place] [address] Social History Tobacco Use Types [...] Office Visit Hematology and Ángel Fischer MD [facility] [place] [address] Oncology Alyssa Joseph[address] [place] [address] 03/25/2022 Infusion Hematology and Oncology 03/31/2022 Office Visit Hematology and Alan Livingston M D [facility] DR HEMATOLOGY/[place] [address] Oncology Nilam So APRN [facility] HEMATOLOGY/[place] [address] 04/15/2022 Office Visit Ángel Hill Oncology MD [facility] ONCOLOGY [place], [place] 0375 (Wo rk) 04/15/2022 Infusion Hematology and Oncology 04/15/2022 Office Visit Hematology and Jazzy Armendariz R D Oncology [facility] CESAR HEMATOLOGY AND ONCOLOGY [place], [place] 0375 (Wo rk) 09/05/2022 Scheduled View Only Obstetrics and Nurse, Julian COLEMAN deputy k 9 09/05/2022 Office Visit Obstetrics and Shazia Whitley APRN Gynecology [facility] UROGYNECOLOGY [place], [place] 0375 (Wo rk) documented as of this encounter Visit Diagnoses Diagnosis Chronic lymphocytic leukemia not having achieved remission Colon cancer metastasized to liver Malignant neoplasm of colon, unspecified site documented in this encounter Care Teams Wildlife Control Agent Relationship Specialty Start Date End Date Berkley Madrigal MD PCP - General 04/13/10 02/15/18 AYLEEN Bray [address] [place] [address] documented as of this encounter
--- OUTSIDE RECORDS SUMMARY | 2022-03-25 01:30 | XMS_ITS | Encounter Summary ---
:1950 Author Organization [facility] [place] [address] Care Team Providers Name Role Phone Berkley Madrigal MD Primary Care Provider Reason for Visit Reason Comments Diabetes Encounter Details Date Type Department Care Team Description 12/22/2014 Office Visit Endocrinology at [facility] C Chaz, Maribel Sanchez, Hypoglycemia [facility] [place] [address] [facility] [phone] ENDOCRINOLOGY DE PT. [place], [place] 0375 (Wo rk) Social History Tobacco [...] in this encounter Progress Notes Maribel Ware, HEALTH SERVICES INFORMATION SPECIALIST - 12/22/2014 1:37 PM EDT DATE OF [...] office visit with 26 minutes spent counseling [id number] with the patient and friend in the management of glucose levels specifically preventing hypoglycemia and cautioning against further weight gain. documented in this encounter Plan of Treatment Upcoming Encounters Date Type Specialty Care Team Description 03/25/2022 Office Visit Hematology and Ángel Fischer MD [facility] [place] [address] Oncology Alyssa Joseph APRN [address] [place] [address] [place] [address] 03/25/2022 Infusion Hematology and Oncology 03/31/2022 Office Visit Hematology and Alan Livingston M D [facility] HEMATOLOGY/[place] [address] Oncology Nilam So, [facility] HEMATOLOGY/[place] [address] 04/15/2022 Office Visit Hematology and Ángel Fischer, Oncology [facility] ONCOLOGY [place], [place] 0375 (Wo rk) 04/15/2022 Infusion Hematology and Oncology 04/15/2022 Office Visit Hematology and Jazzy Armendariz R D Oncology [facility] CESAR HEMATOLOGY AND ONCOLOGY [place], [place] 0375 (Wo rk) 09/05/2022 Scheduled View Only Obstetrics and Nurse, Julian COLEMAN, lathe setup operator 09/05/2022 Office Visit Obstetrics and Shazia Whitley APRN Gynecology [facility] UROGYNECOLOGY [place], [place] 0375 (Wo rk) documented as of this encounter Visit Diagnoses Diagnosis Hypoglycemia Hypoglycemia, unspecified Colon cancer metastasized to liver Malignant neoplasm of colon, unspecified site documented in this encounter Care Teams Toe Pounder Relationship Specialty Start Date End Date Berkley Madrigal MD PCP - General 04/13/10 02/15/18 AYLEEN Katarina [address] [place] [address] documented as of this encounter
--- OUTSIDE RECORDS SUMMARY | 2022-03-25 01:30 | XMS_ITS | Encounter Summary ---
:1950 Author Organization [place] [address] Care Team Providers Name Role Phone Berkley Madrigal MD Primary Care Provider Encounter Details Date Type Department Care Team Description 12/21/2015 Laboratory Lab 3L [facility] type Appointment [place] [address], [place] [phone] Social History Tobacco Use Types Packs/Day Years [...] [facility] [place] [address] Oncology Alyssa Joseph[address] [address] 03/25/2022 Infusion Hematology and Oncology 03/31/2022 Office Visit Hematology and Alan Livingston M D [facility] HEMATOLOGY/[place] [address] Oncology Nilam So [facility]ATRIST [facility] HEMATOLOGY/[place] [address] 04/15/2022 Office Visit Hematology Ángel Kimbrough Oncology [facility] ONCOLOGY [place], [place] 0375 (Wo rk) 04/15/2022 Infusion Hematology and Oncology 04/15/2022 Office Visit Hematology and Jazzy Armendariz R D [facility] CESAR HEMATOLOGY AND ONCOLOGY [place], [place] 0375 (Wo rk) 09/05/2022 Scheduled View Only Obstetrics and Nurse, Oboneal COLEMAN, guest relations executive 09/05/2022 Office Visit Obstetrics and Shazia Whitley APRN Gynecology [facility] UROGYNECOLOGY [place], [place] [address] (Wo rk) documented as of this [...] U Albumin/Cre Ratio (12/21/2015 3:32 PM EDT) P athologist Signature Alb/Cr Ratio, <9 0 - 29 [facility] Random mcg/mg [facility] LABORATORY Comment: Reference Ranges: <30 mcg/mg: Normal [...] 362 U Albumin Conc, Random <3.0 mg/L [facility] LABORATORY Comment: Result rechecked. U Creatinine 35 mg/dL [facility] LABORATORY Specimen Anatomical Collection Method Collection Time Receive d Time (Source) Location / / Volume Laterality Urine specimen 12/21/2015 3:32 PM 016 3:54 (specimen) EDT PM EDT Resulting Agency Comment Spec In Lab Pasquale Rich MD URINE ORDERABLES Performing Organization Address City/[facility]/ZIP Code Phon e Number [address] TSH (12/21/2015 3:27 PM EDT) P athologist Signature TSH 2.68 0.27 - 4.20 [facility] m[facility]/mL [facility] LABORATORY Specimen Anatomical Collection Method Collection Time Receive d Time (Source) Location / / Volume Laterality Blood specimen 12/21/2015 3:27 PM 016 3:37 (specimen) EDT PM EDT Resulting Agency Comment Spec In Lab Pasquale Rich MD CHEMISTRY ORDERABLES Performing Organization Address City/State/[place] [address] (ABNORMAL) LDL Cholesterol, Direct (12/21/2015 3:27 PM EDT) P athologist Signature LDL Chol 143 (H) <=99 mg/dL [facility] LABORATORY Comment: The National Cholesterol Education Progr am (NCEP) has set the following guidelines for LDL Cholesterol: Reference range: ?? Optimal: ?<100 mg/dL ?? Near Optimal/Above Optimal: ?? 100-1 29 mg/dL ?? Borderline high: ?130-159 mg/dL ?? High: ? 160-189 mg/dL ?? Very high: ?>vh=751 mg/dL ISI 2001: 285(19):2902-0230 Specimen Anatomical Collection Method Collection Time Receive d Time (Source) Location / / Volume Laterality Blood specimen 12/21/2015 3:27 PM 016 3:37 (specimen) EDT PM EDT Resulting Agency Comment Spec In Lab Pasquale Rich MD CHEMISTRY ORDERABLES Performing Organization Address City/[facility]/ZIP Code Phon e Number [place] [id number] LAB[address] (ABNORMAL) HDL/Cholesterol Profile (12/21/2015 3:27 PM EDT) athologist Signature Chol, Total 237 (H) <=199 [facility] mg/dL [facility] LABORATORY Comment: Recommendations of the NCEP Adult Treatm ent Panel for the following risk cutoff thresholds for the [place] populatio n: Desirable: <200 mg/dL Borderline High: 200-239 mg/dL High: > or = 240 mg/dL HDL 75 >=40 mg/dL [facility] LABORATORY Comment: Reference range: ??Low HDL: ?? < 40 mg/dL ??Normal: ?40-60 mg/dL ??Desirable: > 60 mg/dL ISI 2001; 285(19):4233-0631 Chol/HDL Ratio 3.2 ratio [facility] LABORATORY Comment: A Cholesterol to HDL ratio below 4:1 is desirable. ??Studies suggest that increased CAD risk occurs at ratios abov e 5 for females and above 6 for men. ? [place] Heart Association ??(htt p://www.americanheart.org) ? Maria Teresa Int Med, 1994; 121:641 ? AM J Med, 1998; 105(1A):48S Specimen Anatomical Collection Method Collection Time Receive d Time (Source) Location / / Volume Laterality Blood specimen 12/21/2015 3:27 PM 016 3:37 (specimen) EDT PM EDT Resulting Agency Comment Spec In Lab Pasquale Rich MD CHEMISTRY ORDERABLES Performing Organization Address City/[facility]/[place] [address] (ABNORMAL) Hemoglobin A1c (12/21/2015 3:27 PM EDT) Analysis Performed At Patho logist Time Signature Hemoglobin A1C 6.2 (H) 4.3 - 5.6 [facility] LABORATORY Comment: Reference Range: 4.3 - [...] Mellitus, Diabetes Care 2013; 36: Suppl. 1, S67-71 Est Avg Gluc 131 mg/dL [facility] LABORATORY Comment: eAG equivalents for HbA1c percentages: HbA1c(%) ?eAG(mg/dL) 6.0 ?126 6.5 ?140 7.0 ?154 7.5 ?169 8.0 ?183 8.5 ?197 9.0 ?212 9.5 ?226 10.0 ? 240 Limitations: The eAG calculation has not been validated on women, individuals below 18 years old and above 70 years old, and individuals with hemoglobinopathies. Additional resources are available on [facility] website: [email or web address] Lázaro MIX, Lolis J, Reece R, et al. ??Tr anslating the A1C assay into estimated average glucose values. ??Diabetes Care 2008:31(8):6799-8113. Specimen Anatomical Collection Method Collection Time Receive d Time (Source) Location / / Volume Laterality Blood specimen 12/21/2015 3:27 PM 016 3:37 (specimen) EDT PM EDT Resulting Agency Comment Spec In Lab Pasquale Rich MD CHEMISTRY ORDERABLES Performing Organization Address City/State/ZIP Code Phon e Number [place] [phone] documented in this encounter Visit Diagnoses Diagnosis Diabetes mellitus type 2, uncomplicated Type II or unspecified type diabetes omer litus without mention of complication, not stated as uncontrolled Colon cancer metastasized to liver Malignant neoplasm of colon, unspecified site documented in this encounter Care Teams Public Address System Operator Relationship Specialty Start Date End Date Berkley Madrigal MD PCP - General 04/13/10 02/15/18 AYLEEN D [address] [place] [address] documented as of this encounter
--- OUTSIDE RECORDS SUMMARY | 2022-03-25 01:30 | XMS_ITS | Encounter Summary ---
:1950 Author Organization [employer] [place] [address] Care Team Providers Name Role Phone Berkley Madrigal MD Primary Care Provider Encounter Details Date Type Department Care Team Description 12/21/2015 Office Visit [facility]ology at [facility] Maribel Julian Diabetes mellitus type [facility] E, SHOW HOST/HOSTESS 2, [place] [address] CENTER [phone] 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 Would like to return to Endocrinology in 1 year. Advised appointment with Dr. Pasquale Rich, who reviewed her endocrine testing in the past. This was a 29 minute office visit with 28 minutes spent counseling [id number] with patient and friend in the management [...] MD [facility] [place] [address] Oncology Alyssa Joseph APRN [address] [place] [address] [place] [address] 03/25/2022 Infusion Hematology and Oncology 03/31/2022 Office Visit Hematology and Alan Livingston M D [facility] HEMATOLOGY/[place] [address] Oncology Nilam So APRN [facility] HEMATOLOGY/[place] [address] 04/15/2022 Office Visit Hematology Ángel Kimbrough Oncology [facility] ONCOLOGY [place], [place] [address] (Wo rk) 04/15/2022 Infusion Hematology and Oncology 04/15/2022 Office Visit Hematology and Jazzy Armendariz R D Oncology [facility] CESAR HEMATOLOGY AND ONCOLOGY [place], [place] 0375 (Wo rk) 09/05/2022 Scheduled View Only Obstetrics and Nurse, Julian COLEMAN, sampler radioactive waste 09/05/2022 Office Visit Obstetrics and Shazia Whitley APRN Gynecology [facility] UROGYNECOLOGY [place], [place] [address] (Wo rk) documented as of this encounter Results U Albumin/Cre Ratio (12/21/2015 3:32 PM EDT) athologist Signature Alb/Cr Ratio, <9 0 - 29 [facility] Random mcg/mg Cr [facility] Comment: Reference Ranges: <30 [...] <3.0 mg/L [facility] Comment: Result rechecked. U Creatinine 35 mg/dL [facility] Specimen Anatomical Collection Method Collection Time Receive d Time (Source) Location / / Volume Laterality Urine specimen 12/21/2015 3:32 PM 016 3:54 (specimen) EDT PM EDT Resulting Agency Comment Spec In Lab Pasquale Rich MD URINE ORDERABLES Performing Organization Address City/[facility]/[place] [address] TSH (12/21/2015 3:27 PM EDT) athologist Signature TSH 2.68 0.27 - 4.20 [facility] mcIU/mL [facility] Specimen Anatomical Collection Method Collection Time Receive d Time (Source) Location / / Volume Laterality Blood specimen 12/21/2015 3:27 PM 016 3:37 (specimen) EDT PM EDT Resulting Agency Comment Spec In Lab Pasquale Rich MD CHEMISTRY ORDERABLES Performing Organization Address City/[facility]/[place] [address] (ABNORMAL) LDL Cholesterol, Direct (12/21/2015 3:27 PM EDT) athologist Signature LDL Chol 143 (H) <=99 mg/dL [facility] LABORATORY Comment: The National Cholesterol Education Progr am (NCEP) has set the following guidelines for LDL Cholesterol: Reference range: ?? Optimal: ?<100 mg/dL ?? Near Optimal/Above Optimal: ?? 100-1 29 mg/dL ?? Borderline high: ?130-159 mg/dL ?? High: ? 160-189 mg/dL ?? Very high: ?>at=091 mg/dL ISI 2001: 285(19):3849-4443 Specimen Anatomical Collection Method Collection Time Receive d Time (Source) Location / / Volume Laterality Blood specimen 12/21/2015 3:27 PM 016 3:37 (specimen) EDT PM EDT Resulting Agency Comment Spec In Lab Pasquale Rich MD CHEMISTRY ORDERABLES Performing Organization Address City/State/[place] [address] (ABNORMAL) HDL/Cholesterol Profile (12/21/2015 3:27 PM EDT) athologist Signature Chol, Total 237 (H) <=199 [facility] mg/dL [facility] Comment: Recommendations of the NCEP Adult Treatm ent Panel for the following risk cutoff thresholds for the [place] populatio n: Desirable: <200 mg/dL Borderline High: 200-239 mg/dL High: > or = 240 mg/dL HDL 75 >=40 mg/dL [facility] Comment: Reference range: ??Low HDL: ?? < 40 mg/dL ??Normal: ?40-60 mg/dL ??Desirable: > 60 mg/dL ISI 2001; 285(19):7699-5343 Chol/HDL Ratio 3.2 ratio [facility] Comment: A Cholesterol to HDL ratio below 4:1 is desirable. ??Studies suggest that increased CAD risk occurs at ratios abov e 5 for females and above 6 for men. ? [place] Heart Association ??(htt p://www.americanheart.org) ? Maria Teresa Int Med, 1994; 121:641 ? AM J Med, 1998; 105(1A):48S Specimen Anatomical Collection Method Collection Time Receive d Time (Source) Location / / Volume Laterality Blood specimen 12/21/2015 3:27 PM 016 3:37 (specimen) EDT PM EDT Resulting Agency Comment Spec In Lab Pasquale Rich MD CHEMISTRY ORDERABLES Performing Organization Address City/State/[place] [address] (ABNORMAL) Hemoglobin A1c (12/21/2015 [...] 1, S67-74 Est Avg Gluc 131 mg/dL [facility] Comment: eAG equivalents for HbA1c percentages: HbA1c(%) ?eAG(mg/dL) 6.0 ?126 6.5 ?140 7.0 ?154 7.5 ?169 8.0 ?183 8.5 ?197 9.0 ?212 9.5 ?226 10.0 ? 240 Limitations: The eAG calculation has not been validated on women, individuals below 18 years old and above 70 years old, and individuals with hemoglobinopathies. Additional resources are available on [facility] website: [email or web address] – OKLAHOMA CITYadacalc Lázaro MIX, Lolis J, Reece R, et al. ??Tr anslating the A1C assay into estimated average glucose values. ??Diabetes Care 2008:31(8):6924-8383. Specimen Anatomical Collection Method Collection Time Receive d Time (Source) Location / / Volume Laterality Blood specimen 12/21/2015 3:27 PM 016 3:37 (specimen) EDT PM EDT Resulting Agency Comment Spec In Lab Pasquale Rich MD CHEMISTRY ORDERABLES Performing Organization Address City/State/[place] [address] documented in this encounter Visit Diagnoses Diagnosis Diabetes mellitus type 2, uncomplicated Type II or unspecified type diabetes omer litus without mention of complication, not stated as uncontrolled Colon cancer metastasized to liver Malignant neoplasm of colon, unspecified site documented in this encounter Care Teams Sintering Plant Supervisor Relationship Specialty Start Date End Date Berkley Madrigal MD PCP - General 04/13/10 02/15/18 AYLEEN D [address] [place] [address] documented as of this encounter
--- OUTSIDE RECORDS SUMMARY | 2022-03-25 01:30 | XMS_ITS | Encounter Summary ---
:1950 Author Organization [facility] [place] [address] Care Team Providers Name Role Phone Berkley Madrigal MD Primary Care Provider Encounter Details Date Type Department Care Team Description 04/14/2014 Hospital Encounter Hematology and Oncology CLINIC, DR ALEXANDER at [facility] Alan Livingston MD [facility] HEMATOLOGY/[place] [address] [place] [address] Social History Tobacco Use Types Packs/Day [...] MD [facility] [place] [address] Oncology Alyssa Joseph, [address] [place] [address] 03/25/2022 Infusion Hematology and Oncology 03/31/2022 Office Visit Hematology and Alan Livingston M D [facility] HEMATOLOGY/[place] [address] Oncology Nilam So, [facility] HEMATOLOGY/[place] [address] 04/15/2022 Office Visit Hematology and Ángel Fischer, Oncology [facility] ONCOLOGY [place], [place] 0375 (Wo rk) 04/15/2022 Infusion Hematology and Oncology 04/15/2022 Office Visit Hematology and Jazzy Armendariz R D Oncology [facility] CESAR HEMATOLOGY AND ONCOLOGY [place], [place] 0375 (Wo rk) 09/05/2022 Scheduled View Only Obstetrics and NurseJulian II, basting marker 09/05/2022 Office Visit Obstetrics and Shazia Whitley APRN Gynecology [facility] UROGYNECOLOGY [place], [place] [address] (Wo rk) documented as of this encounter Visit Diagnoses Not on filedocumented in this encounter Care Teams Health Center Manager Relationship Specialty Start Date End Date Berkley Madrigal MD PCP - General 04/13/10 02/15/18 AYLEEN Bray [address] [place] [address] documented as of this encounter
--- OUTSIDE RECORDS SUMMARY | 2022-03-25 01:30 | XMS_ITS | Encounter Summary ---
:1950 Author Organization [facility] [place] [address] Care Team Providers Name Role Phone Berkley Madrigal MD Primary Care Provider Encounter Details Date Type Department Care Team Description 12/16/2013 Notes Only Hematology and Oncology at [facility], Kristy Kruse, RN [facility] [place] [address] Social History Tobacco Use Types Packs/Day Years [...] Informed Consent to Participate in Clinical Trial [id number]: Lipoprotein Lipase Expression in Chronic Lymphocytic Leukemia Carol Keller was seen while awaiting bloodwork in on 12/16/13. Patient was offered the opportunity to participate in study P27920: Lipoprotein Lipase Expression inChronic Lymphocytic Leukemia. Study [...] this protocol and consented for treatmenton study L42003. Consent form was signed and dated by patient and entry writer. Written informed consent was obtained prior to any study blood work being drawn. A copy of the signed consent form was given to patient. Original signed IC form given to JAVIER Zuñiga. documented in this encounter Plan of Treatment Upcoming Encounters Date Type Specialty Care Team Description 03/25/2022 Office Visit Hematology Ángel Kimbrough MD [facility] [address] Oncology Alyssa Joseph[address] MEDICAL ONCOLOGY [place], [place] [id number] 03/25/2022 Infusion Hematology and Oncology 03/31/2022 Office Visit Hematology and Alan Livingston M D [facility] HEMATOLOGY/[place] [address] Oncology Nilam So [facility] HEMATOLOGY/[place] [address] 04/15/2022 Office Visit Hematology Ángel Kimbrough Oncology [facility] ONCOLOGY [place], [place] 0375 (Wo rk) 04/15/2022 Infusion Hematology and Oncology 04/15/2022 Office Visit Hematology and Jazzy Armendariz R D Oncology [facility] CESAR HEMATOLOGY AND ONCOLOGY [place], [place] 0[address] (Wo rk) 09/05/2022 Scheduled View Only Obstetrics and Nurse, Julian COLEMAN, technical sales representatives 09/05/2022 Office Visit Obstetrics and Shazia Whitley APRN Gynecology [facility] UROGYNECOLOGY [place], [place] [address]375 (Wo rk) documented as of this encounter Visit Diagnoses Not on filedocumented in this encounter Care Teams Head Lineman Relationship Specialty Start Date End Date Berkley Madrigal MD PCP - General 04/13/10 02/15/18 AYLEEN Katarina [address] [place], [place] [id number] documented as of this encounter
--- OUTSIDE RECORDS SUMMARY | 2022-03-25 01:30 | XMS_ITS | Encounter Summary ---
:1950 Author Organization [facility] [place] [address] Care Team Providers Name Role Phone Berkley [...] Procedures CONSULT, TEST & TREAT [address] [facility] [address] [place] [address] [facility] OPHTHALMOLOGY DEPT. [place], [place] [address] Phone: Fax: Referral ID Status Reason Start Date Expiration Date Visits Requ ested Visits Authorized [id number] Closed 05/05/2015 05/04/2016 1 1 Encounter Details Date Type Department Care Team Description 05/08/2015 Office Visit Ophthalmology at [facility] C Pavan Coffey Macular pucker, [facility] [place] [address] OPHTHALMOLOGY DE PT. [place], [place] [address] (Wo rk) Social History Tobacco [...] 03/25/2022 Office Visit Hematology Ángel Kimbrough MD [facility] [place] [address] Oncology Alyssa Joseph[address] [place] [address] 03/25/2022 Infusion Hematology and Oncology 03/31/2022 Office Visit Hematology and Alan Livingston M D [facility] HEMATOLOGY/[place] [address] Oncology Nilam So [facility] HEMATOLOGY/[place] [address] 04/15/2022 Office Visit Ángel Hill Oncology [facility] ONCOLOGY [place], [place] 0375 (Wo rk) 04/15/2022 Infusion Hematology and Oncology 04/15/2022 Office Visit Hematology and Jazzy Armendariz R D Oncology [facility] CESAR HEMATOLOGY AND ONCOLOGY [place], [place] 0375 (Wo rk) 09/05/2022 Scheduled View Only Obstetrics and Nurse, Julian COLEMAN, services executive 09/05/2022 Office Visit Obstetrics and [place], Shazia C, ADENIKE Gynecology [facility] UROGYNECOLOGY [place], [place] [address] (Wo rk) documented as of this encounter Procedures Procedure Name Priority Date/Time Associated Diagnosis Comme nts OCT RETINA - OU - Routine 05/08/2015 1:40 PM Macular pucker, R esults for this BOTH EYES EST bilateral procedure are i n the results section. documented in this encounter Results OCT [id number]-CO-GDCK EYES (05/08/2015 1:40 PM EST) Anatomical Region [...] site documented in this encounter Care Teams Stationary Engineer Refrigeration Relationship Specialty Start Date End Date Berkley Madrigal MD PCP - General 04/13/10 02/15/18 AYLEEN Bray [address] [place] [address] documented as of this encounter
--- OUTSIDE RECORDS SUMMARY | 2022-03-25 01:30 | XMS_ITS | Encounter Summary ---
:1950 Author Organization [facility] Address [facility] [place] [place] [address] Care Team Providers Name Role Phone Berkley Madrigal MD Primary Care Provider Encounter Details Date Type Department Care Team Description 01/13/2016 Telephone Ophthalmology at [facility] Pavan Mancera, [facility] [place] [address] [facility] [phone] OPHTHALMOLOGY [address] PT. [place], [place] [address] (Wo rk) Social History [...] and Ángel Fischer MD [facility] [place] [address] Oncology Alyssa Joseph[address] [place] [address] 03/25/2022 Infusion Hematology and Oncology 03/31/2022 Office Visit Hematology and Alan Livingston M D [facility] HEMATOLOGY/[place] [address] Oncology Nilam So [facility] HEMATOLOGY/[place] [address] 04/15/2022 Office Visit Ángel Hill Oncology [facility] DR UMANA [place], [place] [address]375 (Wo rk) 04/15/2022 Infusion Hematology and Oncology 04/15/2022 Office Visit Hematology and Jazzy Armendariz R D Oncology [facility] CESAR HEMATOLOGY AND ONCOLOGY [place], [place] [address] (Wo rk) 09/05/2022 Scheduled View Only Obstetrics and Julian Enciso II, senior physical therapist 09/05/2022 Office Visit Obstetrics and Shazia Whitley APRN Gynecology [facility] UROGYNECOLOGY [place], [place] [address]375 (Wo rk) documented as of this encounter Visit Diagnoses Not on filedocumented in this encounter Care Teams Tubing Tester Relationship Specialty Start Date End Date Berkley Madrigal MD PCP - General 04/13/10 02/15/18 AYLEEN Bray [address] [place] [address] documented as of this encounter
--- OUTSIDE RECORDS SUMMARY | 2022-03-25 01:30 | XMS_ITS | Encounter Summary ---
:1950 Author Organization [facility] [place] [address] Care Team Providers Name Role Phone Berkley Madrigal MD Primary Care Provider Encounter Details Date Type Department Care Team Description 08/11/2014 Ancillary Hematology and CLINIC, DR BENJAMIN bach mphocytic Appointment Oncology at [facility] Alan Livingston MD [facility] HEMATOLOGY/[place] [address] leukemia not having [facility] [place] [phone] Social History Tobacco Use Types Packs/Day Years [...] Ángel Fischer MD [facility] [place] [address] Oncology Alyssa Joseph[address] [place] [address] 03/25/2022 Infusion Hematology and Oncology 03/31/2022 Office Visit Hematology and Alan Livingston M D [facility] DR HEMATOLOGY/[place] [address] Oncology Nilam So APRN [facility] HEMATOLOGY/[place] [address] 04/15/2022 Office Visit Ángel Hill Oncology [facility] ONCOLOGY [place], [place] 0375 (Wo rk) 04/15/2022 Infusion Hematology and Oncology 04/15/2022 Office Visit Hematology and Jazzy Armendariz R D Oncology [facility] CESAR HEMATOLOGY AND ONCOLOGY [place], [place] 037 (Wo rk) 09/05/2022 Scheduled View Only Obstetrics and Nurse, Julian COLEMAN breaker hand 09/05/2022 Office Visit Obstetrics and Shazia Whitley APRN Gynecology [facility] UROGYNECOLOGY [place], [place] 0375 (Wo rk) documented as of this encounter Visit Diagnoses Diagnosis Chronic lymphocytic leukemia not having achieved remission Colon cancer metastasized to liver Malignant neoplasm of colon, unspecified site documented in this encounter Care Teams Yarn Inspector Relationship Specialty Start Date End Date Berkley Madrigal MD PCP - General 04/13/10 02/15/18 AYLEEN Bray [address] [place] [address] documented as of this encounter
--- OUTSIDE RECORDS SUMMARY | 2022-03-25 01:30 | XMS_ITS | Encounter Summary ---
:1950 Author Organization [place] [address] Care Team Providers Name Role Phone Berkley Madrigal MD Primary Care Provider Encounter Details Date Type Department Care Team Description 12/16/2013 Ancillary Hematology and CLINIC, DR BENJAMIN NGO (chron ic Appointment Oncology at [facility] Alan Livingston MD [facility] HEMATOLOGY/[place] [address] [facility] leukemia) [place] [address] Social History Tobacco Use Types [...] Ángel Fischer MD [facility] [place] [address] Oncology Alyssa Joseph[address] [place] [address] 03/25/2022 Infusion Hematology and Oncology 03/31/2022 Office Visit Hematology and Alan Livingston M D [facility] DR HEMATOLOGY/[place] [address] Oncology Nilam So RECREATIONAL THERAPIST [facility] HEMATOLOGY/[place] [address] 04/15/2022 Office Visit Hematology Ángel Kimbrough Oncology [facility] ONCOLOGY [place] [address] (Wo rk) 04/15/2022 Infusion Hematology and Oncology 04/15/2022 Office Visit Hematology and Jazzy Armendariz R D [facility] CESAR HEMATOLOGY AND ONCOLOGY [place], [place] [address]375 (Wo rk) 09/05/2022 Scheduled View Only Obstetrics and Nurse, Julian COLEMAN blood bank assistant 09/05/2022 Office Visit Obstetrics and Gutierrez, Shazia Baer APRN Gynecology [facility] UROGYNECOLOGY [place], [place] 0375 (Wo rk) documented as of this encounter Visit Diagnoses Diagnosis CLL (chronic lymphocytic leukemia) Chronic lymphoid leukemia, without menti on of having achieved remission Colon cancer metastasized to liver Malignant neoplasm of colon, unspecified site documented in this encounter Care Teams Sequins Winder Relationship Specialty Start Date End Date Berkley Madrigal MD PCP - General 04/13/10 02/15/18 AYLEEN Katarina [address] [place] [address] documented as of this encounter
--- OUTSIDE RECORDS SUMMARY | 2022-03-25 01:30 | XMS_ITS | Encounter Summary ---
:1950 Author Organization [facility] [place] [address] Care Team Providers Name Role Phone Berkley Madrigal MD Primary Care Provider Encounter Details Date Type Department Care Team Description 09/28/2015 Hospital Encounter Hematology and Chronic lymphocytic Oncology at [facility] [place] [address] Social History Tobacco Use Types Packs/Day [...] [facility] [place]OG[place] [address] Oncology Alyssa Joseph, TIRE CURER [address] [place] [address] [place] [address] 03/25/2022 Infusion Hematology and Oncology 03/31/2022 Office Visit Hematology and Alan Livingston M D [facility] HEMATOLOGY/[place] [address] Oncology Nilam So APRN [facility] HEMATOLOGY/[place] [address] 04/15/2022 Office Visit Hematology and Ángel Fischer Oncology [facility] ONCOLOGY [place], [place] 0[address] (Wo rk) 04/15/2022 Infusion Hematology and Oncology 04/15/2022 Office Visit Hematology and Jazzy Armendariz R D Oncology [facility] CESAR HEMATOLOGY AND ONCOLOGY [place], [place] 0375 (Wo rk) 09/05/2022 Scheduled View Only Obstetrics and Nurse, Julian COLEMAN, cylinder press operator helper 09/05/2022 Office Visit Obstetrics and Shazia Whitley [facility] Gynecology [facility] UROGYNECOLOGY [place], [place] 0[address] (Wo rk) documented as of [...] Red Blood Cells (09/28/2015 1:37 PM EDT) P athologist Signature nRBC % Auto 0.0 % [facility] nRBC Abs Auto 0.000 0.000 - [facility] 0.012 [facility] x10(3)/[facility] LABORATORY Specimen Anatomical Collection Method Collection Time Receive d Time (Source) Location / / Volume Laterality Blood specimen 09/28/2015 1:37 PM 016 1:45 (specimen) EDT PM EDT Resulting Agency Comment Spec In Lab Alan Livingston MD HEMATOLOGY ORDERABLES Performing Organization Address City/[facility]/ZIP Code Phon e Number [address] Scan, Peripheral Blood (09/28/2015 1:37 PM EDT) [facility] Method Time Signature Plat Estimate Normal [facility] RBC Morphology Normal [facility] Atypical Lymph Moderate [facility] Smudge Cells Present [facility] Giant Less than 1 /HPF [facility] LABORATORY Specimen Anatomical Collection Method Collection Time Receive d Time (Source) Location / / Volume Laterality Blood specimen 09/28/2015 1:37 PM 016 1:45 (specimen) EDT PM EDT Resulting Agency Comment Spec In Lab Alan Livingston MD HEMATOLOGY ORDERABLES Performing Organization Address City/[facility]/ZIP [facility] Phon e Number [address] (ABNORMAL) Differential, Automated (09/28/2015 1:37 PM EDT) [facility] Method Time Signature Neutrophils % 3.6 % [facility] Neutr Abs (ANC) 4.29 1.50 - [facility] 6.30 [facility] x10(3)/[facility] L LABORATORY Lymphocytes % 93.9 % [facility] Lymphocytes Abs 114.3 (H) 1.0 - 3.6 [facility] x10(3)/[facility] LABORATORY Monocytes % 1.7 % [facility] Monocyte Abs 2.1 (H) 0.2 - 1.0 [facility] x10(3)/[facility] LABORATORY Eosinophils % 0.3 % [facility] Eosinophils Abs 0.3 0.0 - 0.5 [facility] x10(3)/[facility] LABORATORY Basophils % 0.3 % [facility] Basophils Abs 0.4 (H) 0.0 - 0.2 [facility] x10(3)/[facility] LABORATORY Immature Gran % 0.20 % [facility] Comment: Immature granulocytes(IG's)percentage an d absolute count will include metamyelocytes, myelocytes, and promyelo cytes. Blood smears from CBCs yielding IG's will be scanned manually for concor dance. If this scan disagrees with the automated IG or if promyelocytes are not ed, a manual differential will be performed. Claudia Gran Abs 0.28 (H) 0.00 - 0.05 x10(3)/[facility] LABORATORY Specimen Anatomical Collection Method Collection Time Receive d Time (Source) Location / / Volume Laterality Blood specimen 09/28/2015 1:37 PM 016 1:45 (specimen) EDT PM EDT Resulting Agency Comment Spec In Lab Alan Livingston MD HEMATOLOGY ORDERABLES Performing Organization Address City/State/[place] [address] (ABNORMAL) Hemogram (09/28/2015 1:37 PM EDT) P athologist Signature WBC 121.7 4.0 - 10.0 [facility] (Critical) x10(3)/[facility] LABORATORY Comment: Please note: Patients with WBC greater t jaeger 100,000 may have falsely elevated potassium levels. Contact the Clinical C hemistry Laboratory if there are any questions.. This result has been called to VENKAT MAHMOOD by Lizeth Osorio on 09 28 2015 at 1431, and h as been read back. RBC 4.32 3.93 - 5.22 x10(6)/[facility] LABORATORY Hemoglobin 13.1 11.2 - 15.7 gm/dL [facility] Hematocrit 40.4 34.0 - 45.0 % [facility] MCV 93.5 79.0 - 94.[address] [facility] MCH 30.3 26.6 - 32.[address] [facility] MCHC 32.4 32.0 - 36.5 gm/dL [facility] Platelets 162 145 - 370 x10(3)/[facility] LABORATORY RDWSD 49.3 (H) 35.0 - 46.[address] [facility] RDWCV 14.7 (H) 10.9 - 14.4 % [facility] MPV 11.7 9.0 - 12.0 fL [facility] Specimen Anatomical Collection Method Collection Time Receive d Time (Source) Location / / Volume Laterality Blood specimen 09/28/2015 1:37 PM 016 1:45 (specimen) EDT PM EDT Resulting Agency Comment Spec In Lab Alan Livingston MD HEMATOLOGY ORDERABLES Performing Organization Address City/State/ZIP Code Phon e Number [place] [id number] HOSPITAL LAB[address]ORY [address] (ABNORMAL) Comprehensive metabolic panel (non-fasting) (09/28/2015 1:37 PM EDT) athologist Signature Glucose Lvl 97 65 - 199 [facility] mg/dL [facility] Comment: Diabetes: >=200 mg/dL plus symp toms BUN 16 8 - 18 mg/dL [facility] Creatinine 1.05 0.70 - 1.20 mg/dL [facility] Comment: Please note that the pediatric reference intervals supplied above were not validated at [facility]. Results from pediatri c patients should be interpreted in conjunction to the patient's age, height and muscle mass. Sodium 143 135 - 145 mmol/L [facility] Potassium See Note 3.5 - 5.0 mmol/L [facility] Comment: Please note: ??Patients [...] Fuente. Chloride 106 98 - 107 mmol/L [facility] CO2 27 22 - 31 mmol/L [facility] Anion Gap 10 5 - 15 mmol/L [facility] Calcium 8.8 8.5 - 10.5 mg/dL [facility] Total Protein 6.2 6.1 - 8.0 gm/dL [facility] Albumin 4.2 3.2 - 5.2 gm/dL [facility] AST 23 0 - 30 unit/L [facility] ALT 15 0 - 30 unit/L [facility] Alk Phos 58 40 - 104 unit/L [facility] Total Bilirubin 0.2 0.2 - 1.3 mg/dL [facility] Bili, Direct 0.1 0.0 - 0.3 mg/dL [facility] Estimated GFR 52 (L) >=60 [facility] Comment: This estimated [...] the following links into your internet browser. [email or web address] [email or web address] Specimen Anatomical Collection Method Collection Time Receive d Time (Source) Location / / Volume Laterality Blood specimen 09/28/2015 1:37 PM 016 1:45 (specimen) EDT PM EDT Resulting Agency Comment Spec In Lab Alan Livingston MD CHEMISTRY ORDERABLES Performing Organization Address City/State/ZIP [place] [address] documented in this encounter Visit Diagnoses Diagnosis Chronic lymphocytic leukemia Chronic lymphoid leukemia, without menti on of having achieved remission Colon cancer metastasized to liver Malignant neoplasm of colon, unspecified site documented in this encounter Care Teams Fire Truck Driver Relationship Specialty Start Date End Date Berkley Madrigal MD PCP - General 04/13/10 02/15/18 AYLEEN D [address] [place] [address] documented as of this encounter
--- OUTSIDE RECORDS SUMMARY | 2022-03-25 01:30 | XMS_ITS | Encounter Summary ---
:1950 Author Organization [facility] [place] [address] Care Team Providers Name Role Phone Berkley Madrigal MD Primary Care Provider Encounter Details Date Type Department Care Team Description 12/16/2013 Hospital Encounter Hematology and Oncology CLINIC, DR ALEXANDER at [facility] Alan iLvingston MD [facility] HEMATOLOGY/[place] [address] [place] [address] Social History Tobacco Use Types Packs/Day [...] Fischer MD [facility] [place] [address] Oncology Alyssa Joseph, SPRAYER OPERATOR [address] [place] [address] [place] [address] 03/25/2022 Infusion Hematology and Oncology 03/31/2022 Office Visit Hematology and Alan Livingston M D [facility] HEMATOLOGY/[place] [address] Oncology Nilam So SPRAYER OPERATOR [facility] HEMATOLOGY/[place] [address] 04/15/2022 Office Visit Hematology and Ángel Fischer, Oncology [facility] ONCOLOGY [place], [place] 0375 (Wo rk) 04/15/2022 Infusion Hematology and Oncology 04/15/2022 Office Visit Hematology and Jazzy Armendariz R D Oncology [facility] CESAR HEMATOLOGY AND ONCOLOGY [place], [place] 0375 (Wo rk) 09/05/2022 Scheduled View Only Obstetrics and Nurse, Julian COLEMAN, fast food team member 09/05/2022 Office Visit Obstetrics and Shazia Whitley APRN Gynecology [facility] UROGYNECOLOGY [place], [place] 0[address] (Wo rk) documented as of this encounter Visit Diagnoses Not on filedocumented in this encounter Care Teams Refrigeration Insulator Relationship Specialty Start Date End Date Berkley Madrigal MD PCP - General 04/13/10 02/15/18 AYLEEN Bray [address] [place] [address] documented as of this encounter
--- OUTSIDE RECORDS SUMMARY | 2022-03-25 01:30 | XMS_ITS | Encounter Summary ---
:1950 Author Organization [facility] [place] [address] Care Team Providers Name Role Phone Berkley Madrigal MD Primary Care Provider Encounter Details Date Type Department Care Team Description 05/25/2015 Hospital Encounter Hematology and Chronic lymphocytic Oncology at [facility] [place] [address] Social History Tobacco Use Types Packs/Day [...] and Ángel Fischer MD [facility] [place] [address] Oncology Alyssa Joseph, [address] [place] [address] 03/25/2022 Infusion Hematology and Oncology 03/31/2022 Office Visit Hematology and Alan Livingston M D [facility] HEMATOLOGY/[place] [address] Oncology Nilam So, [facility] HEMATOLOGY/[place] [address] 04/15/2022 Office Visit Hematology and Ángel Fischer Oncology [facility] ONCOLOGY [place], [place] 0375 (Wo rk) 04/15/2022 Infusion Hematology and Oncology 04/15/2022 Office Visit Hematology and Jazzy Armendariz R D Oncology [facility] CESAR HEMATOLOGY AND ONCOLOGY [place], [place] 0375 (Wo rk) 09/05/2022 Scheduled View Only Obstetrics and Nurse, Julian COLEMAN, header up 09/05/2022 Office Visit Obstetrics and Shazia Whitley, [facility] Gynecology [facility] UROGYNECOLOGY [place], [place] 0[address] (Wo rk) documented as of [...] Red Blood Cells (05/25/2015 1:43 PM EST) athologist [facility] nRBC % Auto 0.0 % CERNER MILLENNIUM nRBC Abs Auto 0.000 0.000 - CERNER 0.012 MILLENNIUM x10(3)/mcL Specimen Anatomical Collection Method Collection Time Receive d Time (Source) Location / / Volume Laterality Blood specimen 05/25/2015 1:43 PM 016 1:49 (specimen) EST PM EST Resulting Agency Comment Spec In Lab Alan Livingston MD HEMATOLOGY ORDERABLES Performing Organization Address City/[facility]/ZIP [facility] Phon e Number [address] CERNER MILLENNIUM Scan, Peripheral Blood (05/25/2015 1:43 PM EST) athologist [facility] Plat Estimate Normal CERNER MILLENNIUM RBC Morphology Normal CERNER MILLENNIUM Specimen Anatomical Collection Method Collection Time Receive d Time (Source) Location / / Volume Laterality Blood specimen 05/25/2015 1:43 PM 016 1:49 (specimen) EST PM EST Resulting Agency Comment Spec In Lab Alan Livingston MD HEMATOLOGY ORDERABLES Performing Organization Address City/[facility] Phon e Number [address] CERNER MILLENNIUM (ABNORMAL) Differential, Automated (05/25/2015 1:43 PM EST) [facility] gist Method Time Signature Neutrophils % 3.6 [...] Organization Address City/State/[place] [address] CERNER MILLENNIUM (ABNORMAL) Hemogram [...] UM RDWCV 14.2 10.9 - 14.4 % KALEENER MILLENNIU M MPV 11.7 9.0 - 12.0 fL CERNER MILLENNIU M Specimen Anatomical Collection Method Collection Time Receive d Time (Source) Location / / Volume Laterality Blood specimen 05/25/2015 1:43 PM 016 1:49 (specimen) EST PM EST Resulting Agency Comment Spec In Lab Alan Livingston MD HEMATOLOGY ORDERABLES Performing Organization Address City/[facility]/ZIP Code Phon e Number [address] CERNER MILLENNIUM Lactate Dehydrogenase (05/25/2015 1:43 PM EST) athologist Signature LDH 217 110 - 220 CERNER unit/L MILLENNIUM Specimen Anatomical Collection Method Collection Time Receive d Time (Source) Location / / Volume Laterality Blood specimen 05/25/2015 1:43 PM 016 1:49 (specimen) EST PM EST Resulting Agency Comment Spec In Lab Alan Livingston MD CHEMISTRY ORDERABLES Performing Organization Address City/[facility] [place] [address] CERNER MILLENNIUM Comprehensive metabolic [...] the following links into your internet browser. [email or web address] Specimen Anatomical Collection Method Collection Time Receive d Time (Source) Location / / Volume Laterality Blood specimen 05/25/2015 1:43 PM 016 1:49 (specimen) EST PM EST Resulting Agency Comment Spec In Lab Alan Livingston MD CHEMISTRY ORDERABLES Performing Organization Address City/State/[facility] [place] [address] [facility] documented in this encounter Visit Diagnoses Diagnosis Chronic lymphocytic leukemia Chronic lymphoid leukemia, without menti on of having achieved remission Colon cancer metastasized to liver Malignant neoplasm of colon, unspecified site documented in this encounter Care Teams Petrologist Relationship Specialty Start Date End Date Berkley Madrigal MD PCP - General 04/13/10 02/15/18 AYLEEN D [address] [place] [address] documented as of this encounter
--- OUTSIDE RECORDS SUMMARY | 2022-03-25 01:30 | XMS_ITS | Encounter Summary ---
:1950 Author Organization [facility] [place] [address] Care Team Providers Name Role Phone Berkley Madrigal MD Primary Care Provider Encounter Details Date Type Department Care Team Description 11/24/2014 Ancillary Hematology and CLINIC, DR BENJAMIN bach mphocytic Appointment Oncology at [place] Alan Livingston MD [facility] HEMATOLOGY/[place] [address] leukemia not having [facility] [place] [id number] Social History Tobacco Use Types Packs/Day Years [...] Fischer MD [facility] [place] [address] Oncology Alyssa Joseph[address] [place] [address] 03/25/2022 Infusion Hematology and Oncology 03/31/2022 Office Visit Hematology and Alan Livingston M D [facility] DR HEMATOLOGY/[place] [address] Oncology Nilam So APRN [facility] HEMATOLOGY/[place] [address] 04/15/2022 Office Visit Ángel Hill Oncology [facility] ONCOLOGY [place], [place] 0375 (Wo rk) 04/15/2022 Infusion Hematology and Oncology 04/15/2022 Office Visit Hematology and Jazzy Armendariz R D Oncology [facility] CESAR HEMATOLOGY AND ONCOLOGY [place], [place] 037 (Wo rk) 09/05/2022 Scheduled View Only Obstetrics and Nurse, Julian COLEMAN digital strategy director 09/05/2022 Office Visit Obstetrics and Shazia Whitley APRN Gynecology [facility] UROGYNECOLOGY [place], [place] 0[address] (Wo rk) documented as of this encounter Visit Diagnoses Diagnosis Chronic lymphocytic leukemia not having achieved remission Colon cancer metastasized to liver Malignant neoplasm of colon, unspecified site documented in this encounter Care Teams Housekeeping Supervisor Hotel Relationship Specialty Start Date End Date Berkley Madrigal MD PCP - General 04/13/10 02/15/18 AYLEEN Bray [address] [place] [address] documented as of this encounter
--- OUTSIDE RECORDS SUMMARY | 2022-03-25 01:30 | XMS_ITS | Encounter Summary ---
:1950 Author Organization [facility] [place] [address] Care Team Providers Name Role Phone Berkley Madrigal MD Primary Care Provider Reason for Visit Reason Comments Follow-up Encounter Details Date Type Department Care Team Description 11/24/2014 Follow-Up Hematology and Alan Livingston M D CLL (chronic Oncology at [facility] lymphocytic leukemia) [facility] DR Perkins HEMATOLOGY/[place] [address] DEPT. [phone] [place], [place] 0[address] (Wo rk) Social History [...] MD [facility] [place] [address] Oncology Alyssa Joseph APRN [address] [place] [address] [place] [address] 03/25/2022 Infusion Hematology and Oncology 03/31/2022 Office Visit Hematology and Alan Livingston M D [facility] DR HEMATOLOGY/[place] [address] Oncology Nilam So, REROLLING MACHINE OPERATOR [facility] HEMATOLOGY/[place] [address] 04/15/2022 Office Visit Hematology and Ángel Fischer, Oncology [facility] ONCOLOGY [place], [place] 0375 (Wo rk) 04/15/2022 Infusion Hematology and Oncology 04/15/2022 Office Visit Hematology and Jazzy Armendariz R D Oncology [facility] HEMATOLOGY AND ONCOLOGY [place], [place] 0[address] (Wo rk) 09/05/2022 Scheduled View Only Obstetrics and Nurse, Julian COLEMAN, maintenance shop manager 09/05/2022 Office Visit Obstetrics and Shazia Whitley APRN Gynecology [facility] UROGYNECOLOGY [place], [place] [address] (Wo rk) documented as [...] Organization Address City/State/[place] [address] CERNER MILLENNIUM Comprehensive metabolic panel (non-fasting) (02/23/2015 3:50 PM EDT) P athologist Signature Glucose Lvl 100 65 - 199 CERNER mg/dL MILLENNIUM Comment: Diabetes: >=200 mg/dL plus symp toms BUN 16 8 - 18 mg/dL CERNER MILLENNIUM Creatinine 0.91 0.70 - 1.20 mg/dL CERNER MILL ENNIUM Comment: Please note that the pediatric reference intervals supplied above were not validated at [facility]. Results from pediatri c patients should be [...] the following links into your internet browser. [email or web address] Specimen Anatomical Collection Method Collection Time Receive d Time (Source) Location / / Volume Laterality Blood specimen 02/23/2015 3:50 PM 015 3:56 (specimen) EDT PM EDT Resulting Agency Comment Spec In Lab Alan Livingston MD CHEMISTRY ORDERABLES Performing Organization Address City/State/[place] [address] [facility] documented in this encounter Visit Diagnoses Diagnosis CLL (chronic lymphocytic leukemia) Chronic lymphoid leukemia, without menti on of having achieved remission Colon cancer metastasized to liver Malignant neoplasm of colon, unspecified site documented in this encounter Care Teams Turbine Attendant Relationship Specialty Start Date End Date Berkley Madrigal MD PCP - General 04/13/10 02/15/18 AYLEEN D [address] [place] [address] documented as of this encounter
--- OUTSIDE RECORDS SUMMARY | 2022-03-25 01:30 | XMS_ITS | Encounter Summary ---
:1950 Author Organization [facility] [place] [address] Care Team Providers Name Role Phone Berkley Madrigal MD Primary Care Provider Encounter Details Date Type Department Care Team Description 12/16/2013 Ancillary Hematology and CLINIC, DR ALEXANDER CLL (chron ic lymphocytic leukemia); Appointment Oncology at [facility] Rod King MD [facility] HEMATOLOGY/[place] [address] Examination of [place] [id number] Social History Tobacco Use Types Packs/Day Years [...] 03/25/2022 Office Visit Hematology Ángel Kimbrough MD [facility] [place] [address] Oncology Alyssa Joseph[address] [place] [address] 03/25/2022 Infusion Hematology and Oncology 03/31/2022 Office Visit Hematology and Alan Livingston M D [facility] DR HEMATOLOGY/[place] [address] Oncology Nilam So APRN [facility] HEMATOLOGY/[place] [address] 04/15/2022 Office Visit Ángel Hill Oncology [facility] ONCOLOGY [place], [place] 0375 (Wo rk) 04/15/2022 Infusion Hematology and Oncology 04/15/2022 Office Visit Hematology and Jazzy Armendariz R D Oncology [facility] DRIVE HEMATOLOGY AND ONCOLOGY [place], [place] 0375 (Wo rk) 09/05/2022 Scheduled View Only Obstetrics and Nurse, Julian COLEMAN, measurement coordinator 09/05/2022 Office Visit Obstetrics and Shazia Whitley APRN Gynecology [facility] UROGYNECOLOGY [place], [place] 0375 (Wo rk) documented as of this encounter Visit Diagnoses Diagnosis CLL (chronic lymphocytic leukemia) Chronic lymphoid leukemia, without menti on of having achieved remission Examination of participant in clinical t rial Colon cancer metastasized to liver Malignant neoplasm of colon, unspecified site documented in this encounter Care Teams Line Cook Relationship Specialty Start Date End Date Berkley Madrigal MD PCP - General 04/13/10 02/15/18 AYLEEN Bray [address] [place] [address] documented as of this encounter
--- OUTSIDE RECORDS SUMMARY | 2022-03-25 01:30 | XMS_ITS | Encounter Summary ---
:1950 Author Organization [facility] [place] [address] Care Team Providers Name Role Phone Berkley Madrigal MD Primary Care Provider Reason for Visit Reason Comments Follow-up Encounter Details Date Type Department Care Team Description 04/14/2014 Follow-Up Hematology and Alan Livingston M D Chronic lymphocytic leukemia; Oncology at [facility] Diabetes mellitus type 2, un complicated [facility] DR Perkins HEMATOLOGY/[place] [address] Y DEPT. [phone] [place], [place] [address] Social History Tobacco Use Types [...] this encounter Patient Instructions Patient InstructionsSchNilam rodgers, CASTING CHIPPER - 04/14/2014 11:39 AM EST Recent Results [...] time. 2. Vasomotor symtpoms- will follow with PCP/ADVERTISING OPERATIONS COORDINATOR = Her CLL is not a contraindication [...] Ángel Fischer MD [facility] [place] [address] Oncology Alyssa Joseph APRN [address] [place] [address] [place] [address] 03/25/2022 Infusion Hematology and Oncology 03/31/2022 Office Visit Hematology and Alan Livingston M D [facility] DR HEMATOLOGY/[place] [address] Oncology Nilam So APRN [facility] HEMATOLOGY/[place] [address] 04/15/2022 Office Visit Hematology and Ángel Fischer Oncology [facility] ONCOLOGY [place], [place] 0[address] (Wo rk) 04/15/2022 Infusion Hematology and Oncology 04/15/2022 Office Visit Hematology and Jazzy Armendariz R D Oncology [facility] CESAR HEMATOLOGY AND ONCOLOGY [place], [place] 0[address] (Wo rk) 09/05/2022 Scheduled View Only Obstetrics and Nurse, Julian COLEMAN, securities lending trader 09/05/2022 Office Visit Obstetrics and Shazia Whitley APRN Gynecology [facility] UROGYNECOLOGY [place], [place] [address] (Wo rk) documented as of [...] Organization Address City/State/[place] [address] CERNER MILLENNIUM (ABNORMAL) Comprehensive [...] were not validated at [facility]. Results from pediatri c patients should be [...] the following links into your internet browser. [email or web address] Specimen Anatomical Collection Method Collection Time Receive d Time (Source) Location / / Volume Laterality Blood specimen 08/11/2014 3:12 PM 015 3:24 (specimen) EDT PM EDT Resulting Agency Comment Spec In Lab Alan Lviingston MD CHEMISTRY ORDERABLES Performing Organization Address City/State/ZIP Code [place] [address] [facility] (ABNORMAL) Hemoglobin A1c (04/14/2014 10:37 AM EST) Analysis Performed At [facility] Time Signature Hemoglobin A1C 6.1 (H) <=5.6 % [facility] Comment: Reference Range: 4.3 - 5.6% 5.7 [...] Mellitus, Diabetes Care 2013; 36: Suppl. 1, S67-49 Est Avg Gluc 128 mg/dL [facility] Comment: eAG equivalents for HbA1c percentages: HbA1c(%) ?eAG(mg/dL) 6.0 ?126 6.5 ?140 7.0 ?154 7.5 ?169 8.0 ?183 8.5 ?197 9.0 ?212 9.5 ?226 10.0 ? 240 Limitations: The eAG calculation has not been validated on women, individuals below 18 years old and above 70 years old, and individuals with hemoglobinopathies. Additional resources are available on ADA website: [email or web address]://[email or web address] Lázaro MIX, Lolis J, Reece R, et al. ??Tr anslating the A1C assay into estimated average glucose values. ??Diabetes Care 2008:31(8):3465-4548. Specimen Anatomical Collection Method Collection Time Receive d Time (Source) Location / / Volume Laterality Blood specimen Venous Draw / 04/14/2014 10:37 04/14/20 14 (specimen) Unknown AM EST 12:03 PM EST Resulting Agency Comment Spec In Lab Alan Livingston MD CHEMISTRY ORDERABLES Performing Organization Address City/[facility]/ZIP Code Phon e Number [address] CERNER MILLENNIUM Nucleated Red Blood Cells (04/14/2014 10:37 AM EST) P athologist Signature nRBC % Auto 0.0 % CERNER MILLENNIUM nRBC Abs Auto 0.000 0.000 - CERNER 0.012 MILLENNIUM x10(3)/mcL Specimen Anatomical Collection Method Collection Time Receive d Time (Source) Location / / Volume Laterality Blood specimen 04/14/2014 10:37 4 (specimen) AM EST 10:42 AM EST Resulting Agency Comment Spec In Lab Alan Livingston MD HEMATOLOGY ORDERABLES Performing Organization Address City/[facility]/[place] [address] CERNER MILLENNIUM Scan, Peripheral Blood (04/14/2014 10:37 AM EST) [facility] gist Method Time Signature Plat Estimate Normal [...] Livingston MD HEMATOLOGY ORDERABLES Performing Organization Address City/[facility]/ZIP Code Phon e Number [address] CERNER MILLENNIUM (ABNORMAL) Differential, Automated (04/14/2014 10:37 AM EST) [facility] gist Method Time Signature Neutrophils % 4.8 % [...] Organization Address City/State/ZIP Code Phon e Number [place] [id number]OS[address]ITAL [address] CERNER MILLENNIUM (ABNORMAL) Hemogram (04/14/2014 10:37 AM EST) P athologist Signature WBC 98.2 4.0 - 10.0 CERNER (Critical) x10(3)/mcL MILLENNIUM Comment: PLEASE NOTE: PATIENTS WITH WBC >100,000 MAY HAVE FALSELY ELEVATED POTASSIUM LEVELS. CONTACT THE [facility] [employer] [facility] CHEMISTRY LABORATORY IF THERE ARE ANY QUESTIONS. [...] Platelets 170 145 - 370 x10(3)/mcL CERNER NE LLENNIUM RDWSD 45.5 35.0 - 46.0 fL [...] Organization Address City/State/ZIP Code Phon e Number [address] [facility] (ABNORMAL) Immunoglobulins, Quantitative (04/14/2014 10:37 AM EST) P athologist Signature IgG 559 (L) 700 - [...] Organization Address City/State/ZIP Code Phon e Number [address] CERNER MILLENNIUM (ABNORMAL) Comprehensive metabolic panel (non-fasting) (04/14/2014 10:37 AM EST) P athologist Signature Glucose Lvl 86 60 - 199 CERNER mg/dL MILLENNIUM Comment: Diabetes: >=200 mg/dL plus symp toms BUN 19 (H) 8 - 18 mg/dL CERNER MILLENNIUM Creatinine 0.82 0.70 - 1.20 mg/dL CERNER MILL ENNIUM Comment: Please note that the pediatric reference intervals supplied above were not validated at [facility]. Results from pediatri c patients should be [...] the following links into your internet browser. [email or web address] Specimen Anatomical Collection Method Collection Time Receive d Time (Source) Location / / Volume Laterality Blood specimen 04/14/2014 10:37 4 (specimen) AM EST 10:42 AM EST Resulting Agency Comment Spec In Lab Alan Livingston MD CHEMISTRY ORDERABLES Performing Organization Address City/State/[place] [address] [facility] documented in this encounter Visit Diagnoses Diagnosis Chronic lymphocytic leukemia Chronic lymphoid leukemia, without menti on of having achieved remission Diabetes mellitus type 2, uncomplicated Type II or unspecified type diabetes omer litus without mention of complication, not stated as uncontrolled Colon cancer metastasized to liver Malignant neoplasm of colon, unspecified site documented in this encounter Care Teams Engrosser Relationship Specialty Start Date End Date Berkley Madrigal MD PCP - General 04/13/10 02/15/18 AYLEEN Katarina [address] [place] [address] documented as of this encounter
--- OUTSIDE RECORDS SUMMARY | 2022-03-25 01:30 | XMS_ITS | Encounter Summary ---
:1950 Author Organization [facility] [place] [address] Care Team Providers Name Role Phone Berkley Madrigal MD Primary Care Provider Encounter Details Date Type Department Care Team Description 09/28/2015 Office Visit Hematology and Alan Livingston M D [facility] DR HEMATOLOGY/[place] [address] Hyperglycemia; Oncology at [facility] Nilam So APRN [facility] DR HEMATOLOGY/[place] [address] Chronic [place] [id number] Social History Tobacco Use Types Packs/Day Years [...] in this encounter Progress Notes Nilam So, SURGERY TECH - 09/28/2015 3:22 PM EDT Subjective: Patient [...] a visit to see her Daughter in [facility] this summer. Her energy has been [...] Fischer MD [facility] [place] [address] Oncology Alyssa Joseph APRN [address] [place] [address] 03/25/2022 Infusion Hematology and Oncology 03/31/2022 Office Visit Hematology and Alan Livingston M D [facility] HEMATOLOGY/[place] [address] Oncology Nilam So [facility] HEMATOLOGY/[place] [address] 04/15/2022 Office Visit Hematology and Ángel Fischer, Oncology MD [facility] DR ONCOLOGY [place], [place] 0[address] (Wo rk) 04/15/2022 Infusion Hematology and Oncology 04/15/2022 Office Visit Hematology and Jazzy Armendariz R D Oncology [facility] CSEAR HEMATOLOGY AND ONCOLOGY [place], [place] 0[address] (Wo rk) 09/05/2022 Scheduled View Only Obstetrics and Nurse, Julian COLEMAN RNsod stripper 09/05/2022 Office Visit Obstetrics and Shazia Whitley [facility] Gynecology [facility] UROGYNECOLOGY [place], [place] 0[address] (Wo rk) documented as of this encounter Results (ABNORMAL) Hemoglobin A1c (02/01/2016 2:37 PM EDT) Analysis Performed At [facility] Time Signature Hemoglobin A1C 6.0 (H) 4.3 - 5.6 [facility] Comment: Reference Range: 4.3 - [...] Mellitus, Diabetes Care 2013; 36: Suppl. 1, S67-88 Est Avg Gluc 126 mg/dL [facility] LAB[facility] Comment: eAG equivalents for HbA1c percentages: HbA1c(%) ?eAG(mg/dL) 6.0 ?126 6.5 ?140 7.0 ?154 7.5 ?169 8.0 ?183 8.5 ?197 9.0 ?212 9.5 ?226 10.0 ? 240 Limitations: The eAG calculation has not been validated on women, individuals below 18 years old and above 70 years old, and individuals with hemoglobinopathies. Additional resources are available on [facility] website: [email or web address]/[facility]STERadacalc Lázaro MIX, Lolis J, Reece R, et al. ??Tr anslating the A1C assay into estimated average glucose values. ??Diabetes Care 2008:31(8):4540-4546. Specimen Anatomical Collection Method Collection Time Receive d Time (Source) Location / / Volume Laterality Blood specimen 02/01/2016 2:37 PM 016 2:43 (specimen) EDT PM EDT Resulting Agency Comment Spec In Lab Alan Livingston MD CHEMISTRY ORDERABLES Performing Organization Address City/State/[place] [address] Lactate Dehydrogenase (02/01/2016 2:37 PM EDT) athologist Signature LDH 202 110 - 220 [facility] LABORATORY Specimen Anatomical Collection Method Collection Time Receive d Time (Source) Location / / Volume Laterality Blood specimen 02/01/2016 2:37 PM 016 2:43 (specimen) EDT PM EDT Resulting Agency Comment Spec In Lab Alan Livingston MD CHEMISTRY ORDERABLES Performing Organization Address City/State/[place] [address] (ABNORMAL) Comprehensive metabolic panel (non-fasting) (02/01/2016 2:37 PM EDT) athologist Signature Glucose Lvl 164 65 - 199 [facility] mg/dL [facility] LABOR[facility] Comment: Diabetes: >=200 mg/dL plus symp toms BUN 19 (H) 8 - 18 mg/dL [facility] LABORATORY Creatinine 0.98 0.70 - 1.20 mg/dL [facility] [...] estions. Chloride 103 98 - 107 mmol/L [facility] LABORATORY CO2 27 22 - 31 mmol/L [facility] LABOR[facility]ORY Anion Gap 14 5 - 15 mmol/L [facility] LABORATORY Calcium 9.0 8.5 - 10.5 mg/dL [facility] LABORAT[facility] Total Protein 6.5 6.1 - 8.0 gm/dL [facility] LABORATORY Albumin 4.1 3.2 - 5.2 gm/dL [facility] LABORATORY AST 27 0 - 30 unit/L [facility]OR[facility] ALT 19 0 - 30 unit/L [facility] Alk Phos 64 40 - 104 unit/L [facility] LABOR[facility] Total Bilirubin 0.2 0.2 - 1.3 mg/dL [facility] LABOR[facility] Bili, Direct <0.1 0.0 - 0.3 mg/dL [facility] LABOR[facility] Estimated GFR 57 (L) >=60 [facility] LABORAT[facility] Comment: This estimated GFR [...] the following links into your internet browser. [email or web address] Specimen Anatomical Collection Method Collection Time Receive d Time (Source) Location / / Volume Laterality Blood specimen 02/01/2016 2:37 PM 016 2:43 (specimen) EDT PM EDT Resulting Agency Comment Spec In Lab Alan Livingston MD CHEMISTRY ORDERABLES Performing Organization Address City/State/[place] [address] documented in this encounter Visit Diagnoses Diagnosis Hyperglycemia Other abnormal glucose Chronic lymphocytic leukemia Chronic lymphoid leukemia, without menti on of having achieved remission Colon cancer metastasized to liver Malignant neoplasm of colon, unspecified site documented in this encounter Care Teams Emergency Services Dispatcher Relationship Specialty Start Date End Date Berkley Madrigal MD PCP - General 04/13/10 02/15/18 AYLEEN Katarina [address] [place] [address] documented as of this encounter
--- OUTSIDE RECORDS SUMMARY | 2022-03-25 01:30 | XMS_ITS | Encounter Summary ---
:1950 Author Organization [facility] [place] [address] Care Team Providers Name Role Phone Berkley Madrigal MD Primary Care Provider Reason for Visit Reason Comments Follow-up Encounter Details Date Type Department Care Team Description 08/11/2014 Follow-Up Hematology and Alan Livingston M D Chronic lymphocytic Oncology at [facility] leukemia [facility] [address] Perkins HEMATOLOGY/[place] [address] DEPT. [phone] [place], [place] [address] (Wo rk) Social History Tobacco [...] in this encounter Progress Notes Nilam So, DENTURE PACKER - 08/11/2014 4:51 PM EDT Subjective: Patient [...] Office Visit Hematology and Ángel Fischer MD [facility] [place] [address] Oncology Alyssa Joseph APRN [address] [place] [address] [place] [address] 03/25/2022 Infusion Hematology and Oncology 03/31/2022 Office Visit Hematology and Alan Livingston M D [facility] DR HEMATOLOGY/[place] [address] Oncology Nilam So APRN [facility] HEMATOLOGY/[place] [address] 04/15/2022 Office Visit Hematology Ángel Kimbrough Oncology MD [facility] ONCOLOGY [place], [place] 0[address] (Wo rk) 04/15/2022 Infusion Hematology and Oncology 04/15/2022 Office Visit Hematology and Jazzy Armendariz E, R D Oncology [facility] DRIVE HEMATOLOGY AND ONCOLOGY [place], [place] 1715 (Wo rk) 09/05/2022 Scheduled View Only Obstetrics and NurseJulian II health records technology teacher 09/05/2022 Office Visit Obstetrics and Shazia Whitley APRN Gynecology [facility] UROGYNECOLOGY [place], [place] [address] (Wo rk) documented as of this encounter [...] 228 (H) 110 - 220 CERNER unit/L [facility] Specimen Anatomical Collection Method Collection Time Receive d Time (Source) Location / / Volume Laterality Blood specimen 11/24/2014 12:04 5 (specimen) PM EDT 12:08 PM EDT Resulting Agency Comment Spec In Lab Alan Livingston MD CHEMISTRY ORDERABLES Performing Organization Address City/State/ZIP Code [place] [address] CERNER MILLENNIUM (ABNORMAL) Comprehensive [...] intervals supplied above were not validated at [facility]. Results from pediatri c patients should be interpreted in conjunction to the patient's age, height and muscle mass. Sodium 143 135 - 145 mmol/L CERNER JAVI NIUM Potassium See Note 3.5 - 5.0 mmol/L CERNER JAVI NIUM Comment: Plasma Potassium result is 4.7 mmol/L, s uspect pseudohyperkalemia. ??Recheck Potassium result on serum sample. Called by: akilah, Read back by: Narseh Moss, Date/Time:11/24/14 13:06. Please note: ??Patients with [...] the following links into your internet browser. [email or web address] Specimen Anatomical Collection Method Collection Time Receive d Time (Source) Location / / Volume Laterality Blood specimen 11/24/2014 12:04 5 (specimen) PM EDT 12:08 PM EDT Resulting Agency Comment Spec In Lab Alan Livingston MD CHEMISTRY ORDERABLES Performing Organization Address City/[facility]/[place] [address] CERNER MILLENNIUM Nucleated Red Blood Cells (08/11/2014 3:12 PM EDT) athologist Signature nRBC % Auto [...] Organization Address City/State/[place] [address] CERNER MILLENNIUM Scan, Peripheral [...] Address City/State/ZIP Code Phon e Number [address] CERNER MILLENNIUM (ABNORMAL) Hemoglobin A1c (08/11/2014 3:12 PM EDT) Analysis Performed At Patho logist Time Signature Hemoglobin A1C 6.0 (H) 4.3 - 5.6 CERNER % MILLENNIUM [...] Mellitus, Diabetes Care 2013; 36: Suppl. 1, I77-96 Est Avg Gluc 126 mg/dL CERNER MILLENNIUM Comment: eAG equivalents for HbA1c percentages: HbA1c(%) ?eAG(mg/dL) 6.0 ?126 6.5 ?140 7.0 ?154 7.5 ?169 8.0 ?183 8.5 ?197 9.0 ?212 9.5 ?226 10.0 ? 240 Limitations: The eAG calculation has not been validated on women, individuals below 18 years old and above 70 years old, and individuals with hemoglobinopathies. Additional resources are available on [facility] website: [email or web address]/[facility] CLAREMOREadacalc Lázaro MIX, Lolis J, Reece R, et al. ??Tr anslating the A1C assay into estimated average glucose values. ??Diabetes Care 2008:31(8):6804-4997. Specimen Anatomical Collection Method Collection Time Receive d Time (Source) Location / / Volume Laterality Blood specimen Venous Draw / 08/11/2014 3:12 PM 2014 4:33 (specimen) Unknown EDT PM EDT Resulting Agency Comment Spec In Lab Alan Livingston MD CHEMISTRY ORDERABLES Performing Organization Address City/State/ZIP Code Phon e Number [place] [id number] CERNER MILLENNIUM (ABNORMAL) Differential, Automated (08/11/2014 3:12 PM EDT) [facility] Method Time Signature Neutrophils % 4.0 [...] Organization Address City/State/[place] [address] CERNER MILLENNIUM (ABNORMAL) Hemogram (08/11/2014 3:12 PM EDT) athologist Signature WBC 121.2 4.0 - 10.0 CERNER (Critical) x10(3)/mcL MILLENNIUM Comment: PLEASE NOTE: PATIENTS WITH WBC >100,000 MAY HAVE FALSELY ELEVATED POTASSIUM LEVELS. CONTACT THE [facility] CHEMISTRY LABORATORY IF THERE ARE ANY QUESTIONS. [...] Platelets 175 145 - 370 x10(3)/mcL CERNER LA LLENNIUM RDWSD 47.5 (H) 35.0 - 46.0 fL [facility] DHIRAJI UM RDWCV 14.1 10.9 - 14.4 % YANELIS HEARNIU M MPV 11.6 9.0 - 12.0 fL YANELIS HEARNIU M Specimen Anatomical Collection Method Collection Time Receive d Time (Source) Location / / Volume Laterality Blood specimen 08/11/2014 3:12 PM 015 3:24 (specimen) EDT PM EDT Resulting Agency Comment Spec In Lab Alan Livingston MD HEMATOLOGY ORDERABLES Performing Organization Address City/[facility]/ZIP [facility] Phon e Number [address] [facility] (ABNORMAL) Lactate Dehydrogenase (08/11/2014 3:12 PM EDT) athologist Signature LDH 227 (H) 110 - 220 CERNER unit/L [facility] Specimen Anatomical Collection Method Collection Time Receive d Time (Source) Location / / Volume Laterality Blood specimen 08/11/2014 3:12 PM 015 3:24 (specimen) EDT PM EDT Resulting Agency Comment Spec In Lab Alan Livingston MD CHEMISTRY ORDERABLES Performing Organization Address City/[facility]/ZIP [facility] Phon e Number [address] [facility] (ABNORMAL) Comprehensive metabolic panel (non-fasting) (08/11/2014 3:12 PM EDT) athologist Signature Glucose Lvl 89 60 - 199 CERNER mg/dL [facility] Comment: Diabetes: >=200 mg/dL plus symp toms BUN 18 8 - 18 mg/dL CERNER MILLENNIUM Creatinine 0.98 0.70 - 1.20 mg/dL CERNER MILL ENNIUM Comment: Please note that the pediatric reference intervals supplied above were not validated at [facility]. Results from pediatri c patients should be [...] the following links into your internet browser. [email or web address] Specimen Anatomical Collection Method Collection Time Receive d Time (Source) Location / / Volume Laterality Blood specimen 08/11/2014 3:12 PM 015 3:24 (specimen) EDT PM EDT Resulting Agency Comment Spec In Lab Alan Livingston MD CHEMISTRY ORDERABLES Performing Organization Address City/State/ZIP [place] [address] CERNER MILLENNIUM documented in this encounter Visit Diagnoses Diagnosis Chronic lymphocytic leukemia Chronic lymphoid leukemia, without menti on of having achieved remission Colon cancer metastasized to liver Malignant neoplasm of colon, unspecified site documented in this encounter Care Teams Antique Collector Relationship Specialty Start Date End Date Berkley Madrigal MD PCP - General 04/13/10 02/15/18 AYLEEN Bray [address] [place] [address] documented as of this encounter
--- OUTSIDE RECORDS SUMMARY | 2022-03-25 01:30 | XMS_ITS | Encounter Summary ---
:1950 Author Organization [facility] Address [facility] [place] [address] Care Team Providers Name Role Phone Berkley Madrigal MD Primary Care Provider Encounter Details Date Type Department Care Team Description 11/20/2014 Orders Only Hematology and Alan Livingston M D Chronic lymphocytic Oncology at [facility] leukemia not having [facility] [address] achieved remission Cesar HEMATOLOGY/[place] [address] Y DEPT. [phone] [place], [place] [address] Social History Tobacco Use Types [...] Fischer MD [facility] [place] [address] Oncology Alyssa Joseph[address] [place] [address] 03/25/2022 Infusion Hematology and Oncology 03/31/2022 Office Visit Hematology and Alan Livingston M D [facility] DR HEMATOLOGY/[place] [address] Oncology Nilam So APRN [facility] HEMATOLOGY/[place] [address] 04/15/2022 Office Visit Ángel Hill Oncology MD [facility] ONCOLOGY [place] [address] (Wo rk) 04/15/2022 Infusion Hematology and Oncology 04/15/2022 Office Visit Hematology and Jazzy Armendariz R D Oncology [facility] CESAR HEMATOLOGY AND ONCOLOGY [place], [place] 0[address] (Wo rk) 09/05/2022 Scheduled View Only Obstetrics and Nurse, Julian COLEMAN contract manager 09/05/2022 Office Visit Obstetrics and Shazia Whitley APRN Gynecology [facility] UROGYNECOLOGY [place], [place] [address] (Wo rk) documented as of this encounter Visit Diagnoses Diagnosis Chronic lymphocytic leukemia not having achieved remission Colon cancer metastasized to liver Malignant neoplasm of colon, unspecified site documented in this encounter Care Teams Commercial Attorney Relationship Specialty Start Date End Date Berkley Madrigal MD PCP - General 04/13/10 02/15/18 AYLEEN Bray [address] [place] [address] documented as of this encounter
--- OUTSIDE RECORDS SUMMARY | 2022-03-25 01:30 | XMS_ITS | Encounter Summary ---
:1950 Author Organization 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 [address] Oncology Nilam So [facility] HEMATOLOGY/[place] [address] 04/15/2022 Office Visit Ángel Hill Oncology MD [facility] ONCOLOGY [place], [place] [address] (Wo rk) 04/15/2022 Infusion Hematology and Oncology 04/15/2022 Office Visit Hematology and Jazzy Armendariz R D Oncology [facility]ESAR HEMATOLOGY AND ONCOLOGY [place], [place] [address] (Wo rk) 09/05/2022 Scheduled View Only Obstetrics and Nurse, Julian COLEMAN, telephone operator receptionist 09/05/2022 Office Visit Obstetrics and Shazia Whitley APRN Gynecology [facility] UROGYNECOLOGY [place], [place] [address] (Wo rk) documented as of this encounter Visit Diagnoses Diagnosis AK (actinic keratosis) Actinic keratosis History of SCC (squamous cell carcinoma) of skin Personal history of other malignant neop lasm of skin Colon cancer metastasized to liver Malignant neoplasm of colon, unspecified site documented in this encounter Care Teams Web Press Jogger Relationship Specialty Start Date End Date Berkley Madrigal MD PCP - General 04/13/10 02/15/18 JORI Bray [address] [place] [address] documented as of this encounter
--- OUTSIDE RECORDS SUMMARY | 2022-03-25 01:30 | XMS_ITS | Encounter Summary ---
:1950 Author Organization [facility] [place] [address] Care Team Providers Name Role Phone Berkley Madrigal MD Primary Care Provider Encounter Details Date Type Department Care Team Description 02/01/2016 Hospital Encounter Hematology and Chronic lymphocytic leukemia; [place] [phone] Social History Tobacco Use Types Packs/Day Years [...] MD [facility] [place] [address] Oncology Alyssa Joseph[address] [place] [address] 03/25/2022 Infusion Hematology and Oncology 03/31/2022 Office Visit Hematology and Alan Livingston M D [facility] HEMATOLOGY/[place] [address] Oncology Nilam So, [facility] HEMATOLOGY/[place] [address] 04/15/2022 Office Visit Hematology and Ángel Fischer, Oncology [facility] ONCOLOGY [place], [place] [address] (Wo rk) 04/15/2022 Infusion Hematology and Oncology 04/15/2022 Office Visit Hematology and Jazzy Armendariz R D Oncology [facility] CESAR HEMATOLOGY AND ONCOLOGY [place], [place] [address] (Wo rk) 09/05/2022 Scheduled View Only Obstetrics and NurseJulian II, electronics engineering professor 09/05/2022 Office Visit Obstetrics and Shazia Whitley APRN Gynecology [facility] UROGYNECOLOGY [place], [place] [address] (Wo rk) documented as of [...] Scan, Peripheral Blood (02/01/2016 2:37 PM EDT) athologist Signature Plat Estimate Normal [facility] RBC Morphology Normal [facility] Specimen Anatomical Collection Method Collection Time Receive d Time (Source) Location / / Volume Laterality Blood specimen 02/01/2016 2:37 PM 016 2:43 (specimen) EDT PM EDT Resulting Agency Comment Spec In Lab Alan Livingston MD HEMATOLOGY ORDERABLES Performing Organization Address City/State/ZIP Code Phon e Number [place] [phone] (ABNORMAL) Differential, Automated (02/01/2016 2:37 PM EDT) [facility] Method Time Signature Neutrophils % 3.5 % [facility] Neutr Abs (ANC) 4.91 1.70 - [facility] 6.10 [facility] x10(3)/[facility] LABORATORY Lymphocytes % 95.4 % [facility] Lymphocytes Abs 131.0 (H) 0.9 - 3.2 [facility] x10(3)/[facility] LABORATORY Monocytes % 0.6 % [facility] Monocyte Abs 0.9 0.3 - 0.9 [facility] x10(3)/[facility] LABORATORY Eosinophils % 0.2 % [facility] Eosinophils Abs 0.2 0.0 - 0.4 [facility] x10(3)/[facility] LABORATORY Basophils % 0.1 % [facility] Basophils Abs 0.1 0.0 - 0.1 [facility] x10(3)/[facility] LABORATORY Immature Gran % 0.20 % [facility] Comment: Immature granulocytes(IG's)percentage an d absolute count will include metamyelocytes, myelocytes, and promyelo cytes. Blood smears from CBCs yielding IG's will be scanned manually for concor dance. If this scan disagrees with the automated IG or if promyelocytes are not ed, a manual differential will be performed. Claudia Gran Abs 0.23 (H) 0.00 - 0.04 x10(3)/[facility] LABORATORY Specimen Anatomical Collection Method Collection Time Receive d Time (Source) Location / / Volume Laterality Blood specimen 02/01/2016 2:37 PM 016 2:43 (specimen) EDT PM EDT Resulting Agency Comment Spec In Lab Alan Livingston MD HEMATOLOGY ORDERABLES Performing Organization Address City/State/[place] [address] (ABNORMAL) Hemogram (02/01/2016 2:37 PM EDT) athologist Signature WBC 137.3 4.0 - 9.5 [facility] (Critical) x10(3)/[facility] LABORATORY Comment: Please note: Patients with WBC greater t jaeger 100,000 may have falsely elevated potassium levels. Contact the Clinical C hemistry Laboratory if there are any questions.. This result has been called to NIKHIL MAHMOOD by Lizeth Osorio on 02 01 2016 at 1453, and h as been read back. RBC 4.35 4.00 - 5.21 x10(6)/[facility] LABORATORY Hemoglobin 12.7 11.7 - 15.5 gm/dL [facility] Hematocrit 41.2 35.7 - 45.8 % [facility] MCV 94.7 (H) 82.6 - 94.4 [facility] LABORATORY MCH 29.2 27.1 - 32.0 pg [facility] MCHC 30.8 (L) 31.7 - 35.0 gm/dL [facility] Platelets 160 145 - 357 x10(3)/[facility] LABORATORY RDWSD 46.0 37.0 - 46.0 [facility] LABORATORY RDWCV 13.5 11.5 - 14.1 % [facility] LABORATORY MPV 11.0 7.6 - 12.9 [facility] LABORATORY nRBC % Auto 0.0 % [facility] nRBC Abs Auto 0.000 0.000 - 0.000 x10(3)/[facility] LABORATORY Specimen Anatomical Collection Method Collection Time Receive d Time (Source) Location / / Volume Laterality Blood specimen 02/01/2016 2:37 PM 016 2:43 (specimen) EDT PM EDT Resulting Agency Comment Spec In Lab Alan Livingston MD HEMATOLOGY ORDERABLES Performing Organization Address City/State/[place] [address] (ABNORMAL) Hemoglobin A1c (02/01/2016 [...] Mellitus, Diabetes Care 2013; 36: Suppl. 1, S67-45 Est Avg Gluc 126 mg/dL [facility] Comment: eAG equivalents for [...] available on [facility] website: [email or web address]/[facility] TAHLEQUAHadacalc Lázaro MIX, Lolis J, Reece R, et al. ??Tr anslating the A1C assay into estimated average glucose values. ??Diabetes Care 2008:31(8):8336-3280. Specimen Anatomical Collection Method Collection Time Receive d Time (Source) Location / / Volume Laterality Blood specimen 02/01/2016 2:37 PM 016 2:43 (specimen) EDT PM EDT Resulting Agency Comment Spec In Lab Alan Livingston MD CHEMISTRY ORDERABLES Performing Organization Address City/[facility]/ZIP Code Phon e Number [address] Lactate Dehydrogenase (02/01/2016 2:37 PM EDT) athologist Signature LDH 202 110 - 220 [facility] unit/L [facility] LABOR[facility]ORY Specimen Anatomical Collection Method Collection Time Receive d Time (Source) Location / / Volume Laterality Blood specimen 02/01/2016 2:37 PM 016 2:43 (specimen) EDT PM EDT Resulting Agency Comment Spec In Lab Alan Livingston MD CHEMISTRY ORDERABLES Performing Organization Address City/[facility] [place] [address] (ABNORMAL) Comprehensive metabolic panel (non-fasting) (02/01/2016 2:37 PM EDT) athologist Signature Glucose Lvl 164 65 - 199 [facility] mg/dL [facility] Comment: Diabetes: >=200 mg/dL plus symp toms BUN 19 (H) 8 - 18 mg/dL [facility] Creatinine 0.98 0.70 - 1.20 mg/dL [facility] Comment: Please note that the pediatric reference intervals supplied above were not validated at [facility]. Results from pediatri c patients should be interpreted in conjunction to the patient's age, height and muscle mass. Sodium 144 135 - 145 mmol/L [facility] Potassium See Note 3.5 - 5.0 mmol/L [facility] Comment: Plasma Potassium result [...] estions. Chloride 103 98 - 107 mmol/L [facility] CO2 27 22 - 31 mmol/L [facility] Anion Gap 14 5 - 15 mmol/L [facility] Calcium 9.0 8.5 - 10.5 mg/dL [facility] Total Protein 6.5 6.1 - 8.0 gm/dL [facility] Albumin 4.1 3.2 - 5.2 gm/dL [facility] AST 27 0 - 30 unit/L [facility] ALT 19 0 - 30 unit/L [facility] Alk Phos 64 40 - 104 unit/L [facility] Total Bilirubin 0.2 0.2 - 1.3 mg/dL [facility] Bili, Direct <0.1 0.0 - 0.3 mg/dL [facility] Estimated GFR 57 (L) >=60 [facility] Comment: [...] the following links into your internet browser. [email or web address] Specimen Anatomical Collection Method Collection Time Receive d Time (Source) Location / / Volume Laterality Blood specimen 02/01/2016 2:37 PM 016 2:43 (specimen) EDT PM EDT Resulting Agency Comment Spec In Lab Alan Livingston MD CHEMISTRY ORDERABLES Performing Organization Address City/State/ZIP Code Phon e Number [place] [phone]OS[address] documented in this encounter Visit Diagnoses Diagnosis Chronic lymphocytic leukemia Chronic lymphoid leukemia, without menti on of having achieved remission Hyperglycemia Other abnormal glucose Colon cancer metastasized to liver Malignant neoplasm of colon, unspecified site documented in this encounter Care Teams Tint Layer Relationship Specialty Start Date End Date Berkley Madrigal MD PCP - General 04/13/10 02/15/18 AYLEEN Katarina [address] [place] [address] documented as of this encounter
--- OUTSIDE RECORDS SUMMARY | 2022-03-25 01:30 | XMS_ITS | Encounter Summary ---
:1950 Author Organization [place] [address] Care Team Providers Name Role Phone Berkley Madrigal MD Primary Care Provider Encounter Details Date Type Department Care Team Description 02/23/2015 Laboratory Appointment Lab 3L Zaria Roman CLL ([facility] lymphocytic leukemia) [place] [phone] Social History Tobacco Use Types Packs/Day Years [...] Fischer MD [facility] [place] [address] Oncology Alyssa Joseph[address] [address] 03/25/2022 Infusion Hematology and Oncology 03/31/2022 Office Visit Hematology and Alan Livingston M D [facility] DR HEMATOLOGY/[place] [address] Oncology Nilam So GAUGER CHIEF [facility] HEMATOLOGY/[place] [address] 04/15/2022 Office Visit Hematology Ángel Kimbrough Oncology [facility] ONCOLOGY [place], [place] [address] (Wo rk) 04/15/2022 Infusion Hematology and Oncology 04/15/2022 Office Visit Hematology and Jazzy Armendariz R D Oncology [facility] CESAR HEMATOLOGY AND ONCOLOGY [place], [place] [address] (Wo rk) 09/05/2022 Scheduled View Only Obstetrics and Nurse, Julian COLEMAN, cured meat packing supervisor 09/05/2022 Office Visit Obstetrics and Gutierrez, Shazia Baer APRN Gynecology [facility] UROGYNECOLOGY [place], [place] [address] (Wo rk) documented as of [...] 3:50 PM EDT) Analysis Performed At [facility] Time Signature Hemoglobin A1C 6.1 (H) 4.3 - 5.6 [facility] % [facility] Comment: Reference Range: 4.3 - 5.6% [...] 36: Suppl. 1, S67-74 Est Avg Gluc 128 mg/dL [facility] MILLENNIUM Comment: eAG equivalents for HbA1c percentages: HbA1c(%) ?eAG(mg/dL) 6.0 ?126 6.5 ?140 7.0 ?154 7.5 ?169 8.0 ?183 8.5 ?197 9.0 ?212 9.5 ?226 10.0 ? 240 Limitations: The eAG calculation has not been validated on women, individuals below 18 years old and above 70 years old, and individuals with hemoglobinopathies. Additional resources are available on [facility] ADA website: http://[employer]/MCadacalc Lázaro MIX, Lolis J, Reece R, et al. ??Tr anslating the A1C assay into estimated average glucose values. ??Diabetes Care 2008:31(8):7401-8254. Specimen Anatomical Collection Method Collection Time Receive d Time (Source) Location / / Volume Laterality Blood specimen Venous Draw / 02/23/2015 3:50 PM 2014 5:37 (specimen) Unknown EDT PM EDT Resulting Agency Comment Spec In Lab Alan Livingston MD CHEMISTRY ORDERABLES Performing Organization Address City/State/ZIP Code Phon e Number [place] [phone] LAB[address] CERNER MILLENNIUM Nucleated Red [...] Livingston MD HEMATOLOGY ORDERABLES Performing Organization Address City/[facility]/ZIP Code Phon e Number [address] CERNER MILLENNIUM Scan, Peripheral Blood (02/23/2015 3:50 PM EDT) P athologist Signature Plat Estimate Normal [facility] MILLENNIUM RBC Morphology Normal [facility] MILLENNIUM Specimen Anatomical Collection Method Collection Time Receive d Time (Source) Location / / Volume Laterality Blood specimen 02/23/2015 3:50 PM 015 3:56 (specimen) EDT PM EDT Resulting Agency Comment Spec In Lab Alan Livingston MD HEMATOLOGY ORDERABLES Performing Organization Address City/[facility]/ZIP Code Phon e Number [address] CERNER MILLENNIUM (ABNORMAL) Differential, Automated (02/23/2015 3:50 PM EDT) Patholo gist Method Time Signature Neutrophils % 3.1 [...] City/State/ZIP Code Phon e Number [place] [phone]OS[address]ITAL LAB[address] CERNER MILLENNIUM (ABNORMAL) Hemogram (02/23/2015 3:50 PM EDT) P athologist Signature WBC 123.4 4.0 - 10.0 [facility] (Critical) x10(3)/mcL MILLENNIUM Comment: PLEASE NOTE: PATIENTS WITH WBC >100,000 MAY HAVE FALSELY ELEVATED POTASSIUM LEVELS. CONTACT THE [facility] CHEMISTRY LABORATORY IF THERE ARE ANY QUESTIONS. [...] Platelets 159 145 - 370 x10(3)/mcL [place] [place] LLENNIUM RDWSD 47.9 (H) 35.0 - 46.0 [...] Livingston MD HEMATOLOGY ORDERABLES Performing Organization Address City/[facility]/ZIP [facility] Phon e Number [address] [facility] MILLENNIUM (ABNORMAL) Lactate Dehydrogenase (02/23/2015 3:50 PM EDT) athologist Signature LDH 236 (H) 110 - 220 [facility] unit/L MILLENNIUM Specimen Anatomical Collection Method Collection Time Receive d Time (Source) Location / / Volume Laterality Blood specimen 02/23/2015 3:50 PM 015 3:56 (specimen) EDT PM EDT Resulting Agency Comment Spec In Lab Alan Livingston MD CHEMISTRY ORDERABLES Performing Organization Address City/[facility] Phon e Number [address] CERNER MILLENNIUM Comprehensive metabolic panel (non-fasting) (02/23/2015 3:50 PM EDT) athologist Signature Glucose Lvl 100 65 - 199 [facility] mg/dL MILLENNIUM Comment: Diabetes: >=200 mg/dL plus symp toms BUN 16 8 - 18 mg/dL [facility] MILLENNIUM Creatinine 0.91 0.70 - 1.20 mg/dL [facility] MILL ENNIUM Comment: Please note that the pediatric reference intervals supplied above were not validated at [facility]. Results from pediatri c patients should be [...] the following links into your internet browser. [email or web address] [email or web address]/DHMCnkf Specimen Anatomical Collection Method Collection Time Receive d Time (Source) Location / / Volume Laterality Blood specimen 02/23/2015 3:50 PM 015 3:56 (specimen) EDT PM EDT Resulting Agency Comment Spec In Lab Alan Livingston MD CHEMISTRY ORDERABLES Performing Organization Address City/State/ZIP Code Phon e Number [place] [phone] HOSPITAL LAB[address] [facility] documented in this encounter Visit Diagnoses Diagnosis CLL (chronic lymphocytic leukemia) Chronic lymphoid leukemia, without menti on of having achieved remission Colon cancer metastasized to liver Malignant neoplasm of colon, unspecified site documented in this encounter Care Teams Plastic Manager Relationship Specialty Start Date End Date Berkley Madrigal MD PCP - General 04/13/10 02/15/18 AYLEEN Katarina [address] [place] [address] documented as of this encounter
--- OUTSIDE RECORDS SUMMARY | 2022-03-25 01:30 | XMS_ITS | Encounter Summary ---
:1950 Author Organization [place] [address] Care Team Providers Name Role Phone Berkley Madrigal MD Primary Care Provider Reason for Visit Reason Comments Follow-up Encounter Details Date Type Department Care Team Description 02/23/2015 Office Visit Hematology and Nilam So APRN [facility] DR HEMATOLOGY/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 [address] Oncology Nilam So, [facility] HEMATOLOGY/[place] [address] 04/15/2022 Office Visit Hematology and Ángel Fischer Oncology [facility] ONCOLOGY [place], [place] [address] (Wo rk) 04/15/2022 Infusion Hematology and Oncology 04/15/2022 Office Visit Hematology and Jazzy Armendariz R D [facility] DRIVE HEMATOLOGY AND ONCOLOGY [place], [place] 0375 (Wo rk) 09/05/2022 Scheduled View Only Obstetrics and NurseJulian II, process operator 09/05/2022 Office Visit Obstetrics and Shazia Whitley APRN Gynecology [facility] UROGYNECOLOGY [place], [place] [address] (Wo rk) documented as of this encounter Results Lactate Dehydrogenase (05/25/2015 1:43 PM EST) athologist [facility] LDH 217 110 - 220 [facility] unit/L [facility] Specimen Anatomical Collection Method Collection Time Receive d Time (Source) Location / / Volume Laterality Blood specimen 05/25/2015 1:43 PM 016 1:49 (specimen) EST PM EST Resulting Agency Comment Spec In Lab Alan Livingston MD CHEMISTRY ORDERABLES Performing Organization Address City/State/[place] [address] [facility] Comprehensive metabolic panel (non-fasting) (05/25/2015 1:43 PM EST) athologist Signature Glucose Lvl 100 65 - 199 [facility] mg/dL [facility] Comment: Diabetes: >=200 mg/dL plus symp toms BUN 18 8 - 18 mg/dL [facility] MILLENNIUM Creatinine 0.87 0.70 - 1.20 mg/dL [facility] MILL ENNIUM Comment: Please note that the pediatric reference intervals supplied above were not validated at [facility]. Results from pediatri c patients should be [...] CERNER MILL ENNIUM Estimated GFR >60 >=60 YANELIS Kellogg Comment: This estimated GFR (eGFR) value was [...] the following links into your internet browser. [email or web address] Specimen Anatomical Collection Method Collection Time Receive d Time (Source) Location / / Volume Laterality Blood specimen 05/25/2015 1:43 PM 016 1:49 (specimen) EST PM EST Resulting Agency Comment Spec In Lab Alan Livingston MD CHEMISTRY ORDERABLES Performing Organization Address City/State/[place] [address] YANELIS SALCIDO documented in this encounter Visit Diagnoses Diagnosis Type 2 diabetes mellitus without complic ation CLL (chronic lymphocytic leukemia) Chronic lymphoid leukemia, without menti on of having achieved remission Chronic lymphocytic leukemia Chronic lymphoid leukemia, without menti on of having achieved remission Colon cancer metastasized to liver Malignant neoplasm of colon, unspecified site documented in this encounter Care Teams Clerk Rating Relationship Specialty Start Date End Date Berkley Madrigal MD PCP - General 04/13/10 02/15/18 AYLEEN Katarina [address] [place] [address] documented as of this encounter
--- OUTSIDE RECORDS SUMMARY | 2022-03-25 01:30 | XMS_ITS | Encounter Summary ---
:1950 Author Organization [facility] [place] [address] Care Team Providers Name Role Phone Berkley Madrigal MD Primary Care Provider Encounter Details Date Type Department Care Team Description 08/11/2014 Hospital Encounter Hematology and Oncology CLINIC, DR ALEXANDER at [facility] Alan Livingston MD [facility] HEMATOLOGY/[place] [address] [place] [address] Social History Tobacco Use Types Packs/Day [...] and Ángel Fischer MD [facility] [place] [address] Oncology Alyssa Joseph, [address] [place] [address] 03/25/2022 Infusion Hematology and Oncology 03/31/2022 Office Visit Hematology and Alan Livingston M D [facility] HEMATOLOGY/[place] [address] Oncology Nilam So, [facility] HEMATOLOGY/[place] [address] 04/15/2022 Office Visit Hematology and Ángel Fischer, Oncology [facility] ONCOLOGY [place], [place] [address] (Wo rk) 04/15/2022 Infusion Hematology and Oncology 04/15/2022 Office Visit Hematology and Jazzy Armendariz R D Oncology [facility] CESAR HEMATOLOGY AND ONCOLOGY [place], [place] [address] (Wo rk) 09/05/2022 Scheduled View Only Obstetrics and NurseJulian II, global transportation manager 09/05/2022 Office Visit Obstetrics and Shazia Whitley APRN Gynecology [facility] UROGYNECOLOGY [place], [place] [address] (Wo rk) documented as of this encounter Visit Diagnoses Not on filedocumented in this encounter Care Teams Insurance Commissioner Relationship Specialty Start Date End Date Berkley Madrigal MD PCP - General 04/13/10 02/15/18 AYLEEN Bray [address] [place] [address] documented as of this encounter
--- OUTSIDE RECORDS SUMMARY | 2022-03-25 01:31 | XMS_ITS | Encounter Summary ---
:1950 Author Organization [facility] [place] [address] Care Team Providers Name Role Phone Berkley Madrigal MD Primary Care Provider Reason for Visit Reason Comments Hypoglycemia Encounter Details Date Type Department Care Team Description 07/10/2013 Procedure visit Endocrinology at [facility] C Pasquale Rich, Hypoglycemia [facility] (Primary Dx) [place] [address] CENTER [phone] [place] [address] Social History Tobacco Use Types Packs/Day Years [...] documented in this encounter Progress Notes Stacy Hardy RN - 07/10/2013 8:23 AM EST ENDOCRINOLOGY [...] lock inserted into right rosie by Stacy Hardy RN, using a #24 InSyte catheter. 9:00 [...] with blood glucose testing completed by Stacy Hardy RN documented in this encounter Plan of Treatment Upcoming Encounters Date Type Specialty Care Team Description 03/25/2022 Office Visit Hematology Ángel Kimbrough MD [facility] [place] [address] Oncology Alyssa Joseph[address] MEDICAL ONCOLOGY [place], [place] [address] 03/25/2022 Infusion Hematology and Oncology 03/31/2022 Office Visit Hematology and Alan Livingston M D [facility] HEMATOLOGY/[place] [address] Oncology Nilam So REGRINDER [facility] HEMATOLOGY/[place] [address] 04/15/2022 Office Visit Ángel Hill Oncology [facility] ONCOLOGY [place], [place] [address] (Wo rk) 04/15/2022 Infusion Hematology and Oncology 04/15/2022 Office Visit Hematology and Jazzy Armendariz R D Oncology [facility] DRIVE HEMATOLOGY AND ONCOLOGY [place], [place] 0[address] (Wo rk) 09/05/2022 Scheduled View Only Obstetrics and Nurse, Julian COLEMAN, worship leader 09/05/2022 Office Visit Obstetrics and Shazia Whitley APRN Gynecology [facility] UROGYNECOLOGY [place], [place] [address] (Wo rk) documented as of [...] Results Glucose, random (07/10/2013 1:10 PM EST) athologist Signature Glucose Lvl 76 60 - 199 CERNER mg/dL MILLENNIUM Comment: Diabetes: >=200 mg/dL plus symp toms Specimen Anatomical Collection Method Collection Time Receive d Time (Source) Location / / Volume Laterality Blood specimen 07/10/2013 1:10 PM 014 1:32 (specimen) EST PM EST Resulting Agency Comment Spec In Lab Pasquale Rich MD CHEMISTRY ORDERABLES Performing Organization Address City/[facility]/[place] [address] CERNER MILLENNIUM Insulin, total (07/10/2013 1:10 PM EST) athologist [facility] Insulin Lvl 8.8 2.6 - 24.9 CERNER mcunit/mL [facility] Specimen Anatomical Collection Method Collection Time Receive d Time (Source) Location / / Volume Laterality Blood specimen 07/10/2013 1:10 PM 014 1:32 (specimen) EST PM EST Resulting Agency Comment Spec In Lab Pasquale Rich MD CHEMISTRY ORDERABLES Performing Organization Address City/State/[place] [address] CERNER MILLENNIUM C-peptide (07/10/2013 1:10 PM EST) athologist Signature C-Peptide 2.8 1.1 - 4.4 CERNER ng/mL [facility] Comment: Test Performed by: [employer] [address] [address] Chair Post Machine Operator: Leeanne Daniels, Ph. D. Specimen Anatomical Collection Method Collection Time Receive d Time (Source) Location / / Volume Laterality Blood specimen 07/10/2013 1:10 PM 2 014 3:42 (specimen) EST PM EST Resulting Agency Comment Spec In Lab Pasquale Rich MD CHEMISTRY ORDERABLES Performing Organization Address City/[facility]/[place] [address] CERNER MILLENNIUM Glucose, random (07/10/2013 [...] Rich MD CHEMISTRY ORDERABLES Performing Organization Address City/[facility]/[place] [address] CERNER MILLENNIUM Insulin, total (07/10/2013 11:45 AM EST) athologist Signature Insulin Lvl 17.6 2.6 - 24.9 CERNER mcunit/mL [facility] Specimen Anatomical Collection Method Collection Time Receive d Time (Source) Location / / Volume Laterality Blood specimen 07/10/2013 11:45 4 (specimen) AM EST 12:06 PM EST Resulting Agency Comment Spec In Lab Pasquale Rich MD CHEMISTRY ORDERABLES Performing Organization Address City/[facility]/[place] [address] CERNER MILLENNIUM (ABNORMAL) C-peptide (07/10/2013 11:45 AM EST) P athologist Signature C-Peptide 5.5 (H) 1.1 - 4.4 CERNER ng/mL MILLENNIUM Comment: Test Performed by: [employer] [address] [address] Chair Post Machine Operator: Leeanne Daniels, Ph. D. Specimen Anatomical Collection Method Collection Time Receive d Time (Source) Location / / Volume Laterality Blood specimen 07/10/2013 11:45 4 1:10 (specimen) AM EST PM EST Resulting Agency Comment Spec In Lab Pasquale Rich MD CHEMISTRY ORDERABLES Performing Organization Address [facility]/ZIP Code Phon e Number [address] CERNER MILLENNIUM Glucose, random [...] Rich MD CHEMISTRY ORDERABLES Performing Organization Address [facility] Phon e Number [address] CERNER MILLENNIUM Insulin, total [...] Rich MD CHEMISTRY ORDERABLES Performing Organization Address City/[facility]/ZIP Code Phon e Number [address] CERNER MILLENNIUM (ABNORMAL) C-peptide (07/10/2013 10:45 AM EST) P athologist Signature C-Peptide 8.4 (H) 1.1 - 4.4 CERNER ng/mL [facility] Comment: Test Performed by: [employer] [address], [place] [address] Chair Post Machine Operator: Leeanne Daniels, Ph. D. Specimen Anatomical Collection Method Collection Time Receive d Time (Source) Location / / Volume Laterality Blood specimen 07/10/2013 10:45 4 1:10 (specimen) AM EST PM EST Resulting Agency Comment Spec In Lab Pasquale Rich MD CHEMISTRY ORDERABLES Performing Organization Address City/[facility]/[place] [address] CERNER MILLENNIUM (ABNORMAL) Glucose, random (07/10/2013 9:45 AM EST) P athologist Signature Glucose Lvl 203 (H) 60 - 199 CERNER mg/dL MILLENNIUM Comment: Diabetes: >=200 mg/dL plus symp toms Specimen Anatomical Collection Method Collection Time Receive d Time (Source) Location / / Volume Laterality Blood specimen 07/10/2013 9:45 AM 014 (specimen) EST 10:06 AM EST Resulting Agency Comment Spec In Lab Pasquale Rich MD CHEMISTRY ORDERABLES Performing Organization Address City/[facility]/[place] [address] CERNER MILLENNIUM (ABNORMAL) Insulin, total (07/10/2013 9:45 AM EST) P athologist Signature Insulin Lvl 76.7 (H) 2.6 - 24.9 CERNER mcunit/mL MILLENNIUM Specimen Anatomical Collection Method Collection Time Receive d Time (Source) Location / / Volume Laterality Blood specimen 07/10/2013 9:45 AM 014 (specimen) EST 10:06 AM EST Resulting Agency Comment Spec In Lab Pasquale Rich MD CHEMISTRY ORDERABLES Performing Organization Address City/[facility]/[place] [address] CERNER MILLENNIUM (ABNORMAL) C-peptide (07/10/2013 9:45 AM EST) P athologist Signature C-Peptide 6.2 (H) 1.1 - 4.4 CERNER ng/mL MILLENNIUM Comment: Test Performed by: [employer] [address], [place] [address] Chair Post Machine Operator: Leeanne Daniels, Ph. D. Specimen Anatomical Collection Method Collection Time Receive d Time (Source) Location / / Volume Laterality Blood specimen 07/10/2013 9:45 AM 014 1:10 (specimen) EST PM EST Resulting Agency Comment Spec In Lab Pasquale Rich MD CHEMISTRY ORDERABLES Performing Organization Address City/State/[place] [address] CERNER MILLENNIUM (ABNORMAL) POCT Fingerstick Glucose (07/10/2013 9:44 AM EST) P athologist Signature POC Glucose 184 60 - [...] Lvl 109 60 - 199 CERNER mg/dL MILLENNIUM Comment: Diabetes: >=200 mg/dL plus symp toms Specimen Anatomical Collection Method Collection Time Receive d Time (Source) Location / / Volume Laterality Blood specimen 07/10/2013 9:00 AM 014 9:10 (specimen) EST AM EST Resulting Agency Comment Spec In Lab Pasquale Rich MD CHEMISTRY ORDERABLES Performing Organization Address City/State/[place] [address] CERNER MILLENNIUM Insulin, total (07/10/2013 9:00 AM EST) P athologist Signature Insulin Lvl 13.2 2.6 - 24.9 CERNER mcunit/mL MILLENNIUM Specimen Anatomical Collection Method Collection Time Receive d Time (Source) Location / / Volume Laterality Blood specimen 07/10/2013 9:00 AM 014 9:10 (specimen) EST AM EST Resulting Agency Comment Spec In Lab Pasquale Rich MD CHEMISTRY ORDERABLES Performing Organization Address City/[facility]/ZIP Code Phon e Number [address] CERNER MILLENNIUM C-peptide (07/10/2013 9:00 AM EST) P athologist Signature C-Peptide 3.1 1.1 - 4.4 CERNER ng/mL MILLENNIUM Comment: Test Performed by: [place] [address] Chair Post Machine Operator: Leeanne Daniels, Ph. D. Specimen Anatomical Collection Method Collection Time Receive d Time (Source) Location / / Volume Laterality Blood specimen 07/10/2013 9:00 AM 014 (specimen) EST 10:47 AM EST Resulting Agency Comment Spec In Lab Pasquale Rich MD CHEMISTRY ORDERABLES Performing Organization Address City/[facility]/ZIP Code Phon e Number [address] CERNER MILLENNIUM documented in this encounter Visit Diagnoses Diagnosis Hypoglycemia - Primary Hypoglycemia, unspecified Colon cancer metastasized to liver Malignant neoplasm of colon, unspecified site documented in this encounter Care Teams Cake Maker Relationship Specialty Start Date End Date Berkley Madrigal MD PCP - General 04/13/10 02/15/18 AYLEEN D [address] [place] [address] documented as of this encounter
--- OUTSIDE RECORDS SUMMARY | 2022-03-25 01:31 | XMS_ITS | Encounter Summary ---
:1950 Author Organization [facility] [place] [address] Care Team Providers Name Role Phone Berkley Madrigal MD Primary Care Provider Encounter Details Date Type Department Care Team Description 10/08/2012 Ancillary Hematology and CLINIC, DR BENJAMIN NGO (chron ic Appointment Oncology at [facility] Sai Cartwright MD [facility] DR HEMATOLOGY/[place] [address] [facility] leukemia) [place] [address] Social History Tobacco Use Types [...] Kimbrough MD [facility] [place] [address] Oncology Alyssa Joseph[address] [place] [address] 03/25/2022 Infusion Hematology and Oncology 03/31/2022 Office Visit Hematology and Alan Livingston M D [facility] HEMATOLOGY/[place] [address] Oncology Nilam So ROUNDHOUSE SUPERVISOR [facility] HEMATOLOGY/[place] [address] 04/15/2022 Office Visit Ángel Hill Oncology [facility] ONCOLOGY [place], [place] [address] (Wo rk) 04/15/2022 Infusion Hematology and Oncology 04/15/2022 Office Visit Hematology and Jazzy Armendariz R D Oncology [facility] DRIVE HEMATOLOGY AND ONCOLOGY [place], [place] 0[address] (Wo rk) 09/05/2022 Scheduled View Only Obstetrics and NurseJulian II calender roll press operator 09/05/2022 Office Visit Obstetrics and Shazia Whitley APRN Gynecology [facility] UROGYNECOLOGY [place], [place] [address] (Wo rk) documented as of this encounter Visit Diagnoses Diagnosis CLL (chronic lymphocytic leukemia) Chronic lymphoid leukemia, without menti on of having achieved remission Colon cancer metastasized to liver Malignant neoplasm of colon, unspecified site documented in this encounter Care Teams Medical Clerk Relationship Specialty Start Date End Date Berkley Madrigal MD PCP - General 04/13/10 02/15/18 AYLEEN Bray [address] [place] [address] documented as of this encounter
--- OUTSIDE RECORDS SUMMARY | 2022-03-25 01:31 | XMS_ITS | Encounter Summary ---
:1950 Author Organization [facility] Address [facility] [place] [address] Care Team Providers Name Role Phone Berkley Madrigal MD Primary Care Provider Reason for Visit Reason Onset Date Comments Medication Refill 08/21/2013 Encounter Details Date Type Department Care Team Description 08/21/2013 Refill Endocrinology at [facility] C Pasquale Rich MD Type 2 diabetes [facility] D [facility] mellitus (Primary Dx) [place] [address] ENDOCRINOLOGY DE PT. [place], [place] [address] (Wo rk) Social History Tobacco [...] Fischer MD [facility] [place] [address] Oncology Alyssa Joseph, [address] [place] [address] 03/25/2022 Infusion Hematology and Oncology 03/31/2022 Office Visit Hematology and Alan Livingston M D [facility] HEMATOLOGY/[place] [address] Oncology Nilam So APRN [facility] HEMATOLOGY/[place] [address] 04/15/2022 Office Visit Hematology and Ángel Fischer Oncology [facility] ONCOLOGY [place] [address] (Wo rk) 04/15/2022 Infusion Hematology and Oncology 04/15/2022 Office Visit Hematology and Jazzy Armendariz R D Oncology [facility] DRIVE HEMATOLOGY AND ONCOLOGY [place] [address] (Wo rk) 09/05/2022 Scheduled View Only Obstetrics and Nurse, Julian COLEMAN, air conditioning supervisor 09/05/2022 Office Visit Obstetrics and Shazia Whitley APRN Gynecology [facility] UROGYNECOLOGY [place], [place] [address] (Wo rk) documented as of this encounter Visit Diagnoses Diagnosis Type 2 diabetes mellitus - Primary Type II or unspecified type diabetes omer litus without mention of complication, not stated as uncontrolled Colon cancer metastasized to liver Malignant neoplasm of colon, unspecified site documented in this encounter Care Teams Applied Statistician Relationship Specialty Start Date End Date Berkley Madrigal MD PCP - General 04/13/10 02/15/18 AYLEEN Bray [address] [place] [address] documented as of this encounter
--- OUTSIDE RECORDS SUMMARY | 2022-03-25 01:31 | XMS_ITS | Encounter Summary ---
:1950 Author Organization [place] [address] Care Team Providers Name Role Phone Berkley Madrigal MD Primary Care Provider Encounter Details Date Type Department Care Team Description 10/05/2012 Orders Only Hematology and Sai Cartwright V[facility] MD lymphocytic leukemia) [facility] (Pr imary Dx) [place] [address] HEMATOLOGY/ONCOLOG [phone] Y DEPT. [place], [place] [address] Social History Tobacco Use Types [...] Ángel Fischer MD [facility] [place] [address] Oncology Alyssa Joseph[address] [place] [address] 03/25/2022 Infusion Hematology and Oncology 03/31/2022 Office Visit Hematology and Alan Livingston M D [facility] DR HEMATOLOGY/[place] [address] Oncology Nilam So APRN [facility] HEMATOLOGY/[place] [address] 04/15/2022 Office Visit Ángel Hill Oncology [facility] ONCOLOGY [place], [place] [address] (Wo rk) 04/15/2022 Infusion Hematology and Oncology 04/15/2022 Office Visit Hematology and Jazzy Armendariz R D Oncology [facility] DRIVE HEMATOLOGY AND ONCOLOGY [place] [address] (Wo rk) 09/05/2022 Scheduled View Only Obstetrics and NurseJulian II, RN Gynecology 09/05/2022 Office Visit Obstetrics and Shazia Whitley APRN Gynecology [facility] UROGYNECOLOGY [place] [id number] (Wo rk) Scheduled Orders Name Type Priority [...] site documented in this encounter Care Teams Private Branch Exchange Service Advisor Relationship Specialty Start Date End Date Berkley Madrigal MD PCP - General 04/13/10 02/15/18 AYLEEN Katarina [address] [place] [address] documented as of this encounter
--- OUTSIDE RECORDS SUMMARY | 2022-03-25 01:31 | XMS_ITS | Encounter Summary ---
:1950 Author Organization [facility] [place] [address] Care Team Providers Name Role Phone Berkley Madrigal MD Primary Care Provider Encounter Details Date Type Department Care Team Description 09/04/2013 Orders Only Hematology and Alan Livingston M D CLL (chronic Oncology at [facility] lymphocytic leukemia) [facility] (Primary Dx) [facility] HEMATOLOGY/[place] [address] Y DEPT. [phone] [place], [place] [address] Social History Tobacco Use Types [...] Hill MD [facility] [place] [address] Oncology Alyssa Joseph[address] [place] [address] 03/25/2022 Infusion Hematology and Oncology 03/31/2022 Office Visit Hematology and Alan Livingston M D [facility] DR HEMATOLOGY/[place] [address] Oncology Nilam So APRN [facility] HEMATOLOGY/[place] [address] 04/15/2022 Office Visit Ángel Hill Oncology [facility] ONCOLOGY [place], [place] [address] (Wo rk) 04/15/2022 Infusion Hematology and Oncology 04/15/2022 Office Visit Hematology and Jazzy Armendariz R D Oncology [facility] DRIVE HEMATOLOGY AND ONCOLOGY [place] [address] (Wo rk) 09/05/2022 Scheduled View Only Obstetrics and NurseJulian II fire technician 09/05/2022 Office Visit Obstetrics and Shazia Whitley APRN Gynecology [facility] UROGYNECOLOGY [place] [address] (Wo rk) Scheduled Orders Name Type Priority [...] site documented in this encounter Care Teams Watch Guard Gate Relationship Specialty Start Date End Date Berkley Madrigal MD PCP - General 04/13/10 02/15/18 AYLEEN Katarina [address] [place] [address] documented as of this encounter
--- OUTSIDE RECORDS SUMMARY | 2022-03-25 01:31 | XMS_ITS | Encounter Summary ---
:1950 Author Organization [place] [address] Care Team Providers Name Role Phone Berkley Madrigal MD Primary Care Provider Encounter Details Date Type Department Care Team Description 06/10/2013 Ancillary Hematology and CLINIC, DR BENJAMIN NGO (chron ic Appointment Oncology at [facility] Alan Livingston MD [facility] HEMATOLOGY/[place] [address] lymphocytic [facility] leukemia) [place] [address] Social History Tobacco Use Types [...] Ángel Fischer MD [facility] [place] [address] Oncology Alyssa Joseph[address] [place] [address] 03/25/2022 Infusion Hematology and Oncology 03/31/2022 Office Visit Hematology and Alan Livingston M D [facility] DR HEMATOLOGY/[place] [address] Oncology Nilam So CHIEF DEPUTY CORONER [facility] HEMATOLOGY/[place] [address] 04/15/2022 Office Visit Hematology Ángel Kimbrough Oncology [facility] ONCOLOGY [place], [place] [address] (Wo rk) 04/15/2022 Infusion Hematology and Oncology 04/15/2022 Office Visit Hematology and Jazzy Armendariz R D [facility] CENTER CESAR HEMATOLOGY AND ONCOLOGY [place], [place] 0[address] (Wo rk) 09/05/2022 Scheduled View Only Obstetrics and Nurse, Julian COLEMAN passenger conductor 09/05/2022 Office Visit Obstetrics and Gutierrez, Shazia Baer APRN Gynecology [facility] UROGYNECOLOGY [place], [place] [address] (Wo rk) documented as of this encounter Visit Diagnoses Diagnosis CLL (chronic lymphocytic leukemia) Chronic lymphoid leukemia, without menti on of having achieved remission Colon cancer metastasized to liver Malignant neoplasm of colon, unspecified site documented in this encounter Care Teams Forest Botany Instructor Relationship Specialty Start Date End Date Berkley Madrigal MD PCP - General 04/13/10 02/15/18 AYLEEN Katarina [address] [place] [address] documented as of this encounter
--- OUTSIDE RECORDS SUMMARY | 2022-03-25 01:31 | XMS_ITS | Encounter Summary ---
:1950 Author Organization [facility] [place] [address] Care Team Providers Name Role Phone Berkley Madrigal MD Primary Care Provider Encounter Details Date Type Department Care Team Description 12/05/2013 Orders Only Hematology and Alan Livingston M D CLL (chronic Oncology at [facility] lymphocytic leukemia) [facility] (Primary Dx) [facility] HEMATOLOGY/[place] [address] [address] DEPT. [phone] [place], [place] [address] Social History Tobacco Use Types [...] Description 03/25/2022 Office Visit Ángel Hill MD [facility] [place] [address] Oncology Alyssa Joseph[address] [place] [address] 03/25/2022 Infusion Hematology and Oncology 03/31/2022 Office Visit Hematology and Alan Livingston M D [facility] DR HEMATOLOGY/[place] [address] Oncology Nilam So APRN [facility] HEMATOLOGY/[place] [address] 04/15/2022 Office Visit Ángel Hill Oncology [facility] ONCOLOGY [place], [place] [address] (Wo rk) 04/15/2022 Infusion Hematology and Oncology 04/15/2022 Office Visit Hematology and Jazzy Armendariz R D Oncology [facility] DRIVE HEMATOLOGY AND ONCOLOGY [place] [address] (Wo rk) 09/05/2022 Scheduled View Only Obstetrics and NurseJulian II slps 09/05/2022 Office Visit Obstetrics and Shazia Whitley APRN Gynecology [facility] UROGYNECOLOGY [place] [address] (Wo rk) Scheduled Orders Name Type Priority Associated Diagnoses Order S chedule Miscellaneous Lab request Lab Routine CLL (chronic ly mphocytic Expected: 12/16/2013, leukemia) Expires: 2013 documented as of this encounter Visit Diagnoses Diagnosis CLL (chronic lymphocytic leukemia) - Cordelia shukri Chronic lymphoid leukemia, without menti on of having achieved remission Colon cancer metastasized to liver Malignant neoplasm of colon, unspecified site documented in this encounter Care Teams Newspaper Delivery Driver Relationship Specialty Start Date End Date Berkley Madrigal MD PCP - General 04/13/10 02/15/18 AYLEEN Katarina [address] [place] [address] documented as of this encounter
--- OUTSIDE RECORDS SUMMARY | 2022-03-25 01:31 | XMS_ITS | Encounter Summary ---
:1950 Author Organization [facility] Address [facility] [place] [address] Care Team Providers Name Role Phone Berkley Madrigal MD Primary Care Provider Reason for Visit Reason Comments Skin Check Encounter Details Date Type Department Care Team Description 03/08/2013 Office Visit Dermatology Justino Cardenas Verruca vulgaris [address] [facility] (Primary Dx) [address] [place], [place] DERMATOLOGY [address] [place] [address] [phone] (Wo rk) Social History Tobacco Use Types [...] large. 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 [address] Oncology Nilam So LEGAL OFFICE ADMINISTRATOR [facility] HEMATOLOGY/[place] [address] 04/15/2022 Office Visit Hematology and Ángel Fischer Oncology MD [facility] ONCOLOGY [place], [place] [address] (Wo rk) 04/15/2022 Infusion Hematology and Oncology 04/15/2022 Office Visit Hematology and Jazzy Armendariz R D Oncology [facility] HEMATOLOGY AND ONCOLOGY [place], [place] [address] (Wo rk) 09/05/2022 Scheduled View Only Obstetrics and Nurse, Julian COLEMAN, attendant self service store 09/05/2022 Office Visit Obstetrics and Shazia Whitley APRN Gynecology [facility] UROGYNECOLOGY [place], [place] [address] (Wo rk) documented as of this encounter Visit Diagnoses Diagnosis Verruca vulgaris - Primary Viral warts, unspecified Colon cancer metastasized to liver Malignant neoplasm of colon, unspecified site documented in this encounter Care Teams Biochemistry Technician Relationship Specialty Start Date End Date Berkley Madrigal MD PCP - General 04/13/10 02/15/18 AYLEEN Bray [address] [place] [address] documented as of this encounter
--- OUTSIDE RECORDS SUMMARY | 2022-03-25 01:31 | XMS_ITS | Encounter Summary ---
:1950 Author Organization [facility] [place] [address] Care Team Providers Name Role Phone Berkley Madrigal MD Primary Care Provider Reason for Visit Reason Comments Follow-up Encounter Details Date Type Department Care Team Description 06/10/2013 Follow-Up Hematology and Alan Livingston M D Chronic lymphocytic Oncology at [facility] leukemia [facility] [address] HEMATOLOGY/[place] [address] DEPT. [phone] [place], [place] [address] (Wo rk) Social History Tobacco [...] Team Description 03/25/2022 Office Visit Hematology and Sonny Fischerory H, MD [facility] [place] [address] Oncology Alyssa Joseph[address] [address] 03/25/2022 Infusion Hematology and Oncology 03/31/2022 Office Visit Hematology and Alan Livingston M D [facility] HEMATOLOGY/[place] [address] Oncology Agustin So [facility] HEMATOLOGY/[place] [address] 04/15/2022 Office Visit Hematology Ángel Kimbrough Oncology [facility] ONCOLOGY [place], [place] [address] (Wo rk) 04/15/2022 Infusion Hematology and Oncology 04/15/2022 Office Visit Hematology and Jazzy Armendariz R D Oncology [facility] HEMATOLOGY AND ONCOLOGY [place], [place] [address] (Wo rk) 09/05/2022 Scheduled View Only Obstetrics and Julian Enciso II, RN Gynecology 09/05/2022 Office Visit Obstetrics and Shazia Whitley APRN Gynecology [facility] UROGYNECOLOGY [place], [place] [address] (Wo rk) documented as of [...] D Total Evaluation (09/09/2013 2:14 PM EDT) P athologist Signature 25-OH Vit D 63 30 [...] Organization Address City/State/[place] [address] CERNER MILLENNIUM Lactate Dehydrogenase (09/09/2013 [...] Address City/State/ZIP Code Ph[place] [address] CERNER MILLENNIUM (ABNORMAL) Comprehensive [...] intervals supplied above were not validated at [facility]. Results from pediatri c patients should be [...] MILL ENNIUM Estimated GFR 57 (L) >=60 YANELIS HEARNIRamila M Comment: This estimated GFR (eGFR) value [...] Organization Address City/State/ZIP Code Phon e Number [place] [phone] [address] CERNER MILLENNIUM (ABNORMAL) CBC (with Diff) (09/09/2013 2:14 PM EDT) P athologist Signature WBC 103.8 4.0 - 10.0 CERNER (Critical) x10(3)/mcL MILLENNIUM Comment: PLEASE NOTE: PATIENTS WITH WBC >100,000 MAY HAVE FALSELY ELEVATED POTASSIUM LEVELS. CONTACT THE [facility] IF THERE ARE ANY QUESTIONS. [...] Platelets 171 145 - 370 x10(3)/mcL CERNER [place] LLENNIUM RDWSD 47.1 (H) 35.0 - 46.0 fL KALEENER DHIRAJI UM RDWCV 14.0 10.9 - 14.4 % KALEENER HERMESENNIU M MPV 11.5 9.0 - 12.0 fL KALEENER HERMESENNIU M Specimen Anatomical Collection Method Collection Time Receive d Time (Source) Location / / Volume Laterality Blood specimen 09/09/2013 2:14 PM 014 2:36 (specimen) EDT PM EDT Resulting Agency Comment Spec In Lab Alan Livingston MD HEMATOLOGY ORDERABLES Performing Organization Address City/[facility]/ZIP [place] [address] CERNER MILLENNIUM (ABNORMAL) Differential, Manual (06/10/2013 1:45 PM EST) [facility] gist Method Time Signature Neutrophil % 4 [...] Livingston MD HEMATOLOGY ORDERABLES Performing Organization Address City/[facility]/ZIP Code Phon [place] [address] CERNER MILLENNIUM Nucleated Red Blood Cells (06/10/2013 1:45 PM EST) athologist Signature nRBC % Auto 0.0 0.0 [...] Address City/State/ZIP Code Phon e Number [address] CERNER MILLENNIUM (ABNORMAL) Immunoglobulins, [...] Address City/State/ZIP Code Phon e Number [address] CERNER MILLENNIUM Lactate Dehydrogenase [...] Address City/State/ZIP Code Ph[place] [address] CERNER MILLENNIUM (ABNORMAL) Comprehensive metabolic panel (non-fasting) (06/10/2013 1:45 PM EST) athologist Signature Glucose Lvl 83 60 - 199 CERNER mg/dL MILLENNIUM Comment: Diabetes: >=200 mg/dL plus symp toms BUN 17 8 - 18 mg/dL CERNER MILLENNIUM Creatinine 0.99 0.70 - 1.20 mg/dL CERNER MILL ENNIUM Comment: Please note that the pediatric reference intervals supplied above were not validated at [facility]. Results from pediatri c patients should be [...] Organization Address City/State/ZIP Code Phon e Number [place] [phone] [address] CERNER MILLENNIUM (ABNORMAL) CBC [...] Platelets 188 145 - 370 x10(3)/mcL CERNER [place] LLENNIUM RDWSD 46.9 (H) 35.0 - 46.0 [...] Organization Address City/State/ZIP Code Phon e Number [place] [phone] [facility] documented in this encounter Visit Diagnoses Diagnosis Chronic lymphocytic leukemia Chronic lymphoid leukemia, without menti on of having achieved remission Colon cancer metastasized to liver Malignant neoplasm of colon, unspecified site documented in this encounter Care Teams Residential Mortgage Underwriter Relationship Specialty Start Date End Date Berkley Madrigal MD PCP - General 04/13/10 02/15/18 AYLEEN D [address] [place] [address] documented as of this encounter
--- OUTSIDE RECORDS SUMMARY | 2022-03-25 01:31 | XMS_ITS | Encounter Summary ---
:1950 Author Organization [facility] [place] [address] Care Team Providers Name Role Phone Berkley Madrigal MD Primary Care Provider Reason for Visit Reason Comments Follow-up Encounter Details Date Type Department Care Team Description 09/09/2013 Follow-Up Hematology and Alan Livingston M D Chronic lymphocytic Oncology at [facility] leukemia [facility] [address] HEMATOLOGY/[place] [address] DEPT. [phone] [place], [place] [address] (Wo rk) Social History Tobacco [...] this encounter Patient Instructions Patient InstructionsNilam So, TRAINING INTERN - 09/09/2013 3:21 PM EDT . Recent [...] 09/09/2013 3:21 PM EDT Subjective: Patient ID: Carol Keller [...] has been stable. 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 Her daughter is stationed in [employer] and she is looking forward to trip [...] Fischer MD [facility] [place] [address] Oncology Alyssa Joseph APRN [address] [place] [address] [place] [address] 03/25/2022 Infusion Hematology and Oncology 03/31/2022 Office Visit Hematology and Alan Livingston M D [facility] HEMATOLOGY/[place] [address] Oncology Nilam So APRN [facility] HEMATOLOGY/[place] [address] 04/15/2022 Office Visit Hematology and Ángel Fischer Oncology MD [facility] ONCOLOGY [place], [place] 0[address] (Wo rk) 04/15/2022 Infusion Hematology and Oncology 04/15/2022 Office Visit Hematology and Jazzy Armendariz R D Oncology [facility]AR HEMATOLOGY AND ONCOLOGY [place], [place] 0[address] (Wo rk) 09/05/2022 Scheduled View Only Obstetrics and Nurse, Julian COLEMAN, extracorporeal circulation specialist 09/05/2022 Office Visit Obstetrics and Shazia Whitley APRN Gynecology [facility] UROGYNECOLOGY [place], [place] [address] (Wo rk) documented as of [...] Organization Address City/State/[place] [address] CERNER MILLENNIUM (ABNORMAL) Comprehensive metabolic panel (non-fasting) (12/16/2013 1:51 PM EDT) athologist Signature Glucose Lvl 85 60 - 199 CERNER mg/dL MILLENNIUM Comment: Diabetes: >=200 mg/dL plus symp toms BUN 18 8 - 18 mg/dL CERNER MILLENNIUM Creatinine 0.83 0.70 - 1.20 mg/dL CERNER MILL ENNIUM Comment: Please note that the pediatric reference intervals supplied above were not validated at [facility]. Results from pediatri c [...] the following links into your internet browser. [email or web address] Specimen Anatomical Collection Method Collection Time Receive d Time (Source) Location / / Volume Laterality Blood specimen 12/16/2013 1:51 PM 014 1:59 (specimen) EDT PM EDT Resulting Agency Comment Spec In Lab Alan Livingston MD CHEMISTRY ORDERABLES Performing Organization Address City/State/ZIP Code Phon e Number [address] CERNER MILLENNIUM (ABNORMAL) Differential, Manual (09/09/2013 2:14 PM EDT) Patholo gist Method Time Signature Neutrophil % 12 [...] City/[facility]/ZIP Code Phon e Number [address] CERNER MILLENNIUM Nucleated Red Blood Cells (09/09/2013 2:14 PM EDT) P athologist Signature nRBC % [...] Address City/State/ZIP [place] [address] [facility] VIT D Total Evaluation (09/09/2013 2:14 PM EDT) athologist Signature 25-OH Vit D 63 30 - 100 CERNER Total ng/mL [facility] Comment: Deficient <10 ng/mL Insufficient 10 to [...] Address City/State/ZIP [place] [address] [facility] Lactate Dehydrogenase (09/09/2013 2:14 PM EDT) athologist Signature LDH 199 110 - 220 CERNER unit/L [facility] Specimen Anatomical Collection Method Collection Time Receive d Time (Source) Location / / Volume Laterality Blood specimen 09/09/2013 2:14 PM 014 2:36 (specimen) EDT PM EDT Resulting Agency Comment Spec In Lab Alan Livingston MD CHEMISTRY ORDERABLES Performing Organization Address City/State/[place] [address] CERNER MILLENNIUM (ABNORMAL) Comprehensive [...] intervals supplied above were not validated at [facility]. Results from pediatri c [...] Organization Address City/State/[place] [address] CERNER MILLENNIUM (ABNORMAL) CBC (with Diff) (09/09/2013 2:14 PM EDT) P athologist Signature WBC 103.8 4.0 - 10.0 CERNER (Critical) x10(3)/mcL MILLENNIUM Comment: PLEASE NOTE: PATIENTS WITH WBC >100,000 MAY HAVE FALSELY ELEVATED POTASSIUM LEVELS. CONTACT THE [facility] IF THERE ARE ANY QUESTIONS. [...] Platelets 171 145 - 370 x10(3)/mcL CERNER [place] LLENNIUM RDWSD 47.1 (H) 35.0 - 46.0 [...] Organization Address City/State/[place] [address] [facility] documented in this encounter Visit Diagnoses Diagnosis Chronic lymphocytic leukemia Chronic lymphoid leukemia, without menti on of having achieved remission Colon cancer metastasized to liver Malignant neoplasm of colon, unspecified site documented in this encounter Care Teams Fiscal Clerk Relationship Specialty Start Date End Date Berkley Madrigal MD PCP - General 04/13/10 02/15/18 AYLEEN Bray [address] [place] [address] documented as of this encounter
--- OUTSIDE RECORDS SUMMARY | 2022-03-25 01:31 | XMS_ITS | Encounter Summary ---
:1950 Author Organization [facility] [place] [address] Care Team Providers Name Role Phone Berkley Madrigal MD Primary Care Provider Encounter Details Date Type Department Care Team Description 12/11/2013 Orders Only Hematology and Lansamantagan, CLL (chronic lymphocytic leukemia); Oncology at [facility] MD Rod Examination of participant in clinical t rial [facility] [address] [place] [address] HEMATOLOGY/ONCOLOG [phone] [place]. [place] [address] Social History Tobacco Use Types [...] Description 03/25/2022 Office Visit Ángel Hill MD [facility] [place] [address] Oncology Alyssa Joseph[address] [address] 03/25/2022 Infusion Hematology and Oncology 03/31/2022 Office Visit Hematology and Alan Livingston M D [facility] DR HEMATOLOGY/[place] [address] Oncology Nilam So APRN [facility] HEMATOLOGY/[place] [address] 04/15/2022 Office Visit Ángel Hill Oncology [facility] ONCOLOGY [place] [address] (Wo rk) 04/15/2022 Infusion Hematology and Oncology 04/15/2022 Office Visit Hematology and Page, Purcell E, R D Oncology [facility] DRIVE HEMATOLOGY AND ONCOLOGY [place] [address] (Wo rk) 09/05/2022 Scheduled View Only Obstetrics and NurseJulian II medical data analyst 09/05/2022 Office Visit Obstetrics and Shazia Whitley APRN Gynecology [facility] UROGYNECOLOGY [place], [place] [address] (Wo rk) Scheduled Orders Name [...] site documented in this encounter Care Teams Physics Technical Officer Relationship Specialty Start Date End Date Berkley Madrigal MD PCP - General 04/13/10 02/15/18 AYLEEN Katarina [address] [place] [address] documented as of this encounter
--- OUTSIDE RECORDS SUMMARY | 2022-03-25 01:31 | XMS_ITS | Encounter Summary ---
:1950 Author Organization [facility] [place] [address] Care Team Providers Name Role Phone Berkley Madrigal MD Primary Care Provider Encounter Details Date Type Department Care Team Description 09/09/2013 Hospital Encounter Hematology and Oncology CLINIC, DR [facility] at [facility] Alan Livingston MD [facility] HEMATOLOGY/[place] [address] [place] [address] Social History Tobacco Use Types Packs/Day [...] Fischer MD [facility] [place] [address] Oncology Alyssa Joseph, [address] [place] [address] 03/25/2022 Infusion Hematology and Oncology 03/31/2022 Office Visit Hematology and Alan Livingston M D [facility] HEMATOLOGY/[place] [address] Oncology Nilam So, [facility] HEMATOLOGY/[place] [address] 04/15/2022 Office Visit Hematology and Ángel Fischer, Oncology [facility] ONCOLOGY [place], [place] [address] (Wo rk) 04/15/2022 Infusion Hematology and Oncology 04/15/2022 Office Visit Hematology and Jazzy Armendariz R D Oncology [facility] C[facility]AR HEMATOLOGY AND ONCOLOGY [place], [place] [address] (Wo rk) 09/05/2022 Scheduled View Only Obstetrics and NurseJulian II, public health microbiologist 09/05/2022 Office Visit Obstetrics and Shazia [place] APRN Gynecology [facility] UROGYNECOLOGY [place], [place] [address] (Wo rk) documented as of this encounter Visit Diagnoses Not on filedocumented in this encounter Care Teams Gift Shop Assistant Relationship Specialty Start Date End Date Berkley Madrigal MD PCP - General 04/13/10 02/15/18 AYLEEN Bray [address] [place] [address] documented as of this encounter
--- OUTSIDE RECORDS SUMMARY | 2022-03-25 01:31 | XMS_ITS | Encounter Summary ---
:1950 Author Organization [place] [address] Care Team Providers Name Role Phone Berkley Madrigal MD Primary Care Provider Reason for Referral Consultation (Routine) - Closed Specialty Diagnoses / Procedures Referred By Contact Refer red To Contact Endocrinology Diagnoses DM hypo/hyperglycemia, heat sensivity Agustin So, CAN CLOSING MACHINE OPERATOR [facility] Endocrinology 3b Procedures consult [facility] DR Martino [facility] Cristóbal Perkins HEMATOLOGY/[place] [address] [place] [address] Referral ID Status Reason Start Date Expiration Date Visits V isits Requested Authorized [id number] Closed Specialty 03/13/2013 09/09/2013 1 1 Service Requested Reason for Visit Reason Comments Follow-up Encounter Details Date Type Department Care Team Description 03/11/2013 Follow-Up Hematology and Alan Livingston M D Chronic lymphocytic Oncology at [facility] leukemia (Primary Dx) [facility] DR Perkins HEMATOLOGY/[place] [address] DEPT. [phone] [place], [place] [address] (Wo rk) Social History Tobacco Use Types [...] MD [facility] [place] [address] Oncology Alyssa Joseph APRN [address] [place] [address] [place] [address] 03/25/2022 Infusion Hematology and Oncology 03/31/2022 Office Visit Hematology and Alan Livingston M D [facility] HEMATOLOGY/[place] [address] Oncology Agustin So, CAN CLOSING MACHINE OPERATOR [facility] HEMATOLOGY/[place] [address] 04/15/2022 Office Visit Hematology and Ángel Fischer Oncology [facility] ONCOLOGY [place], [place] [address] (Wo rk) 04/15/2022 Infusion Hematology and Oncology 04/15/2022 Office Visit Hematology and Jazzy Armendariz R D Oncology [facility] CESAR HEMATOLOGY AND ONCOLOGY [place], [place] [address] (Wo rk) 09/05/2022 Scheduled View Only Obstetrics and Nurse, Julian COLEMAN, communications project manager 09/05/2022 Office Visit Obstetrics and Shazia Whitley APRN Gynecology [facility] UROGYNECOLOGY [place], [place] [address] (Wo rk) Scheduled Referrals Name Type Priority Associated Order [...] Livingston MD CHEMISTRY ORDERABLES Performing Organization Address City/[facility]/ZIP [facility] Phon e Number [address] CERNER MILLENNIUM Lactate Dehydrogenase (06/10/2013 1:45 PM EST) athologist Signature LDH 196 110 - 220 CERNER unit/L MILLENNIUM Specimen Anatomical Collection Method Collection Time Receive d Time (Source) Location / / Volume Laterality Blood specimen 06/10/2013 1:45 PM 014 1:53 (specimen) EST PM EST Resulting Agency Comment Spec In Lab Alan Livingston MD CHEMISTRY ORDERABLES Performing Organization Address City/[facility] Phon e Number [address] CERNER MILLENNIUM (ABNORMAL) Comprehensive [...] above were not validated at [facility]. Results from pediatri c patients should be [...] Organization Address City/State/[place] [address] CERNER MILLENNIUM (ABNORMAL) CBC [...] Platelets 188 145 - 370 x10(3)/mcL CERNER MD LLENNIUM RDWSD 46.9 (H) 35.0 - 46.0 [...] Organization Address City/State/[place] [address] CERNER MILLENNIUM (ABNORMAL) Differential, Manual (03/11/2013 2:46 PM EDT) Patholo gist Method Time Signature Neutrophil % 6 [...] Livingston MD HEMATOLOGY ORDERABLES Performing Organization Address City/[facility]/ZIP Code Phon e Number [address] CERBANNER MILLENNIUM (ABNORMAL) Lactate Dehydrogenase (03/11/2013 2:46 PM EDT) athologist [facility] LDH 221 (H) 110 - 220 CERNER unit/L MILLENNIUM Specimen Anatomical Collection Method Collection Time Receive d Time (Source) Location / / Volume Laterality Blood specimen 03/11/2013 2:46 PM 013 2:53 (specimen) EDT PM EDT Resulting Agency Comment Spec In Lab Alan Livingston MD CHEMISTRY ORDERABLES Performing Organization Address City/State/ZIP [facility] Phon e Number [address] CERNER MILLENNIUM Comprehensive metabolic [...] above were not validated at [facility]. Results from pediatri c patients should be [...] Organization Address City/State/[place] [address] CERNER MILLENNIUM (ABNORMAL) CBC [...] Platelets 168 145 - 370 x10(3)/mcL CERNER MD LLENNIUM RDWSD 47.3 (H) 35.0 - 46.0 [...] Livingston MD HEMATOLOGY ORDERABLES Performing Organization Address City/[facility]/[place] [address] CERNER MILLENNIUM documented in this encounter Visit Diagnoses Diagnosis Chronic lymphocytic leukemia - Primary Chronic lymphoid leukemia, without menti on of having achieved remission Colon cancer metastasized to liver Malignant neoplasm of colon, unspecified site documented in this encounter Care Teams Rn Document Improvement Relationship Specialty Start Date End Date Berkley Madrigal MD PCP - General 04/13/10 02/15/18 AYLEEN Bray [address] [place] [address] documented as of this encounter
--- OUTSIDE RECORDS SUMMARY | 2022-03-25 01:31 | XMS_ITS | Encounter Summary ---
:1950 Author Organization [facility] [place] [address] Care Team Providers Name Role Phone Berkley Madrigal MD Primary Care Provider Encounter Details Date Type Department Care Team Description 06/05/2013 Orders Only Hematology and Alan Livingston M D CLL (chronic Oncology at [facility] lymphocytic leukemia) [facility] (Primary Dx) [facility] HEMATOLOGY/[place] [address] Y DEPT. [phone] [place], [place] [address] Social History Tobacco Use Types [...] Description 03/25/2022 Office Visit Ángel Hill MD [facility] [place] [address] Oncology Alyssa Joseph[address] [place] [address] 03/25/2022 Infusion Hematology and Oncology 03/31/2022 Office Visit Hematology and Alan Livingston M D [facility] DR HEMATOLOGY/[place] [address] Oncology Nilam So APRN [facility] HEMATOLOGY/[place] [address] 04/15/2022 Office Visit Ángel Hill Oncology [facility] ONCOLOGY [place] [address] (Wo rk) 04/15/2022 Infusion Hematology and Oncology 04/15/2022 Office Visit Hematology and Jazzy Armendariz R D Oncology [facility] DRIVE HEMATOLOGY AND ONCOLOGY [place] [address] (Wo rk) 09/05/2022 Scheduled View Only Obstetrics and NurseJulian II computational biologist 09/05/2022 Office Visit Obstetrics and Shazia Whitley APRN Gynecology [facility] UROGYNECOLOGY [place] [address] (Wo rk) Scheduled Orders Name Type Priority [...] site documented in this encounter Care Teams Bulk Pigment Reducer Relationship Specialty Start Date End Date Berkley Madrigal MD PCP - General 04/13/10 02/15/18 AYLEEN Katarina [address] [place] [address] documented as of this encounter
--- OUTSIDE RECORDS SUMMARY | 2022-03-25 01:31 | XMS_ITS | Encounter Summary ---
:1950 Author Organization [facility] [place] [address] Care Team Providers Name Role Phone Berkley Madrigal MD Primary Care Provider Encounter Details Date Type Department Care Team Description 03/08/2013 Orders Only Hematology and Sai Cartwright V, CLL ([facility] Oncology at [facility] MD lymphocytic leukemia) [facility] [place] [address] HEMATOLOGY/ONCOLOG [phone] Y DEPT. [place], [place] 0[address] Social History Tobacco Use Types [...] 03/25/2022 Office Visit Hematology Ángel Kimbrough MD [facility] [place] [address] Oncology Alyssa Joseph[address] [place] [address] 03/25/2022 Infusion Hematology and Oncology 03/31/2022 Office Visit Hematology and Alan Livingston M D [facility] HEMATOLOGY/[place] [address] Oncology Nilam So APRN [facility] HEMATOLOGY/[place] [address] 04/15/2022 Office Visit Ángel Hill Oncology [facility] DR [place]Y [place], [place] [address] (Wo rk) 04/15/2022 Infusion Hematology and Oncology 04/15/2022 Office Visit Hematology and Jazzy Armendariz R D Oncology [facility] DRIVE HEMATOLOGY AND ONCOLOGY [place], [place] 0[address] (Wo rk) 09/05/2022 Scheduled View Only Obstetrics and NurseJulian II, control clerk auditing 09/05/2022 Office Visit Obstetrics and Shazia Whitley APRN Gynecology [facility] UROGYNECOLOGY [place], [place] [address] (Wo rk) Scheduled Orders Name [...] site documented in this encounter Care Teams Scientific Software Developer Relationship Specialty Start Date End Date Berkley Madrigal MD PCP - General 04/13/10 02/15/18 AYLEEN Katarina [address] [place] [address] documented as of this encounter
--- OUTSIDE RECORDS SUMMARY | 2022-03-25 01:31 | XMS_ITS | Encounter Summary ---
:1950 Author Organization [facility] Address [address] [place] [address] Care Team Providers Name Role Phone Berkley Madrigal MD Primary Care Provider Reason for Visit Reason Comments Diabetes Encounter Details Date Type Department Care Team Description 04/25/2013 Office Visit Endocrinology at [facility] C Maribel Ware, Type II or [facility] VACUUM TESTER CANS unspecified type Drive [facility] [place] [address] without mention of [phone] ENDOCRINOLOGY complication, not DEPT. stated as [place], [place] [address] uncontrolled (Primary [phone] Dx) (Work) Social History Tobacco Use Types [...] MEAL PLAN: She has met with the forester silviculture and has been advised to eat small meals every two hours that contains some protein, but she is worried about weight gain. Breakfast is oatmeal, few raisins, six almonds, and one low-fat cheese stick. Morning snack is Thai yogurt. Lunch was one slice of bread with ham and mayonnaise and apple. Evening meal is soup or salad with meat and homemade apple sauce. Evening snack is low-calorie ice cream. PHYSICAL ACTIVITY: Walking the dogs. REVIEW OF SYSTEMS: Depression and mood: Overall, is doing well. Eyes: History of a retinal tear, not related to diabetes. Followed closely by director of sustainability. No recent headaches or chest pain or [...] Fischer MD [facility] [place] [address] Oncology Alyssa Joseph [address] [place] [address] 03/25/2022 Infusion Hematology and Oncology 03/31/2022 Office Visit Hematology and Alan Livingston M D [facility] DR HEMATOLOGY/[place] [address] Oncology Nilam So APRN [facility] HEMATOLOGY/[place] [address] 04/15/2022 Office Visit Ángel Hill Oncology MD [facility] ONCOLOGY [place], [place] [address] (Wo rk) 04/15/2022 Infusion Hematology and Oncology 04/15/2022 Office Visit Hematology and Jazzy Armendariz R D Oncology [facility] CESAR HEMATOLOGY AND ONCOLOGY [place], [place] 0[address] (Wo rk) 09/05/2022 Scheduled View Only Obstetrics and NurseJulian II control valve technician 09/05/2022 Office Visit Obstetrics and Shazia Whitley APRN Gynecology [facility] UROGYNECOLOGY [place], [place] [address] (Wo rk) documented as of this encounter Visit Diagnoses Diagnosis Type II or unspecified type diabetes omer litus without mention of complication, not stated as uncontrolled - Primary Colon cancer metastasized to liver Malignant neoplasm of colon, unspecified site documented in this encounter Care Teams Senior Enterprise Architect Relationship Specialty Start Date End Date Berkley Madrigal MD PCP - General 04/13/10 02/15/18 AYLEEN Bray [address] [place] [address] documented as of this encounter
--- OUTSIDE RECORDS SUMMARY | 2022-03-25 01:31 | XMS_ITS | Encounter Summary ---
:1950 Author Organization [facility] [address] Care Team Providers Name Role Phone Berkley Madrigal MD Primary Care Provider Reason for Visit Reason Onset Date Comments Other 03/13/2013 advanced directive f or healthcare Encounter Details Date Type Department Care Team Description 03/13/2013 Telephone Hematology and Oncology at [facility] (advanced directive [facility] for healthcare) [place] [address] Social History Tobacco Use Types Packs/Day [...] Hematology Ángel Kimbrough MD [facility] [place] [address] Oncology Alyssa Joseph[address] [place] [address] 03/25/2022 Infusion Hematology and Oncology 03/31/2022 Office Visit Hematology and Alan Livingston M D [facility] HEMATOLOGY/[place] [address] Oncology Nilam So APRN [facility] HEMATOLOGY/[place] [address] 04/15/2022 Office Visit Ángel Hill H, Oncology [facility] ONCOLOGY [place], [place] 0[address] (Wo rk) 04/15/2022 Infusion Hematology and Oncology 04/15/2022 Office Visit Hematology and Jazzy Armendariz R D Oncology [facility] [address] HEMATOLOGY AND ONCOLOGY [place], [place] [address] (Wo rk) 09/05/2022 Scheduled View Only Obstetrics and Nurse, Julian COLEMAN, administrative services officer 09/05/2022 Office Visit Obstetrics and Shazia Whitley APRN Gynecology [facility] UROGYNECOLOGY [place], [place] [address] (Wo rk) documented as of this encounter Visit Diagnoses Not on filedocumented in this encounter Care Teams Director Dance Relationship Specialty Start Date End Date Berkley Madrigal MD PCP - General 04/13/10 02/15/18 AYLEEN Katarina [address] [place] [address] documented as of this encounter
--- OUTSIDE RECORDS SUMMARY | 2022-03-25 01:31 | XMS_ITS | Encounter Summary ---
:1950 Author Organization [facility] [place] [address] Care Team Providers Name Role Phone Berkley Madrigal MD Primary Care Provider Reason for Visit Reason Comments Follow-up Encounter Details Date Type Department Care Team Description 12/16/2013 Follow-Up Hematology and Alan Livingston M D Chronic lymphocytic leukemia; Oncology at [facility] CLL (chronic lymphocytic irene kemia) [facility] DR Perkins HEMATOLOGY/[place] [address] DEPT. 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 [address] [facility] [address] 04/15/2022 Office Visit Hematology Ángel Kimbrough Oncology [facility] ONCOLOGY [place], [place] [address] (Wo rk) 04/15/2022 Infusion Hematology and Oncology 04/15/2022 Office Visit Hematology and Jazzy Armendariz R D Oncology [facility] CESAR HEMATOLOGY AND ONCOLOGY [place], [place] [address] (Wo rk) 09/05/2022 Scheduled View Only Obstetrics and Nurse, Julian COLEMAN manager recruiting 09/05/2022 Office Visit Obstetrics and Shazia Whitley APRN Gynecology [facility] UROGYNECOLOGY [place] [id number] (Wo rk) documented as of this encounter [...] Address City/State/ZIP [place] [address] CERNER MILLENNIUM (ABNORMAL) Comprehensive [...] intervals supplied above were not validated at [facility]. Results from pediatri c patients should be [...] the following links into your internet browser. http://[email or web address] [email or web address] Specimen Anatomical Collection Method Collection Time Receive d Time (Source) Location / / Volume Laterality Blood specimen 04/14/2014 10:37 4 (specimen) AM EST 10:42 AM EST Resulting Agency Comment Spec In Lab Alan Livingston MD CHEMISTRY ORDERABLES Performing Organization Address City/[facility] Phon e Number [address] CERNER MILLENNIUM (ABNORMAL) Differential, [...] Livingston MD HEMATOLOGY ORDERABLES Performing Organization Address City/[facility]/ZIP Code Phon e Number [address] CERNER MILLENNIUM Nucleated Red Blood Cells (12/16/2013 1:51 PM EDT) P athologist Signature nRBC % [...] Organization Address City/State/[place] [address] CERNER MILLENNIUM (ABNORMAL) Hemogram (12/16/2013 [...] Platelets 156 145 - 370 x10(3)/mcL CERNER IN LLENNIUM RDWSD 46.8 (H) 35.0 - 46.0 [...] Livingston MD HEMATOLOGY ORDERABLES Performing Organization Address City/[facility]/[place] [address] CERNER MILLENNIUM Lactate Dehydrogenase (12/16/2013 1:51 PM EDT) athologist Signature LDH 218 110 - 220 CERNER unit/L MILLENNIUM Specimen Anatomical Collection Method Collection Time Receive d Time (Source) Location / / Volume Laterality Blood specimen 12/16/2013 1:51 PM 014 1:59 (specimen) EDT PM EDT Resulting Agency Comment Spec In Lab Alan Livingston MD CHEMISTRY ORDERABLES Performing Organization Address City/State/ZIP Code Phon e Number [place] [address] CERNER MILLENNIUM (ABNORMAL) Comprehensive metabolic panel (non-fasting) (12/16/2013 1:51 PM EDT) athologist Signature Glucose Lvl 85 60 - 199 CERNER mg/dL MILLENNIUM Comment: Diabetes: >=200 mg/dL plus symp toms BUN 18 8 - 18 mg/dL CERNER MILLENNIUM Creatinine 0.83 0.70 - 1.20 mg/dL CERNER MILL ENNIUM Comment: Please note that the pediatric reference intervals supplied above were not validated at [facility]. Results from pediatri c patients should be [...] Alk Phos 56 40 - 104 unit/L CERNENITA MILLENN IUM Total Bilirubin 0.2 0.2 - 1.3 mg/dL YANELIS M ILLENNIUM Bili, Direct 0.1 0.0 - 0.3 mg/dL YANELIS MIRZA ENNIUM Estimated GFR >60 >=60 YANELIS MIRZAENNIU [...] the following links into your internet browser. http://instruMagic/DHnkdep http://instruMagic/DHMCnkf Specimen Anatomical Collection Method Collection Time Receive d Time (Source) Location / / Volume Laterality Blood specimen 12/16/2013 1:51 PM 014 1:59 (specimen) EDT PM EDT Resulting Agency Comment Spec In Lab Alan Livingston MD CHEMISTRY ORDERABLES Performing Organization Address City/State/[place] [address] YANELIS SALCIDO documented in this encounter Visit Diagnoses Diagnosis Chronic lymphocytic leukemia Chronic lymphoid leukemia, without menti on of having achieved remission CLL (chronic lymphocytic leukemia) Chronic lymphoid leukemia, without menti on of having achieved remission Colon cancer metastasized to liver Malignant neoplasm of colon, unspecified site documented in this encounter Care Teams Resident Physician In Radiology Relationship Specialty Start Date End Date Berkley Madrigal MD PCP - General 04/13/10 02/15/18 AYLEEN Bray [address] [place] [address] documented as of this encounter
--- OUTSIDE RECORDS SUMMARY | 2022-03-25 01:31 | XMS_ITS | Encounter Summary ---
:1950 Author Organization [facility] Address [address] [facility] [place] [address] Care Team Providers Name Role Phone Berkley Madrigal MD Primary Care Provider Encounter Details Date Type Department Care Team Description 10/23/2013 Orders Only Endocrinology at [facility] Maribel Julian, Type II or unspecified [facility] BATTERY BUILDER type diabetes mellitus [facility] [place] [address] CENTER iqra Null [phone] ENDOCRINOLOGY stated as unco ntrolled DEPT. (Primary Dx) [place], [place] [address] Social History Tobacco Use [...] Ángel Fischer MD [facility] [place] [address] Oncology Alyssa Joseph[address] [address] 03/25/2022 Infusion Hematology and Oncology 03/31/2022 Office Visit Hematology and Alan Livingston M D [facility] DR HEMATOLOGY/[place] [address] Oncology Nilam So APRN [facility] HEMATOLOGY/[place] [address] 04/15/2022 Office Visit Hematology Ángel Kimbrough Oncology [facility] ONCOLOGY [place], [place] 0[address] (Wo rk) 04/15/2022 Infusion Hematology and Oncology 04/15/2022 Office Visit Hematology and Jazzy Armendariz R D Oncology [facility] DR[address] HEMATOLOGY AND ONCOLOGY [place], [place] 0[address] (Wo rk) 09/05/2022 Scheduled View Only Obstetrics and NurseJulian II hearing dog trainer 09/05/2022 Office Visit Obstetrics and Shazia Whitley APRN Gynecology [facility] UROGYNECOLOGY [place], [place] [address] (Wo rk) documented as of this encounter Visit Diagnoses Diagnosis Type II or unspecified type diabetes omer litus without mention of complication, not stated as uncontrolled - Primary Colon cancer metastasized to liver Malignant neoplasm of colon, unspecified site documented in this encounter Care Teams Staying Machine Operator Relationship Specialty Start Date End Date Berkley Madrigal MD PCP - General 04/13/10 02/15/18 AYLEEN Katarina [address] [place] [address] documented as of this encounter
--- OUTSIDE RECORDS SUMMARY | 2022-03-25 01:31 | XMS_ITS | Encounter Summary ---
:1950 Author Organization [facility] [address] Care Team Providers Name Role Phone Berkley Madrigal MD Primary Care Provider Encounter Details Date Type Department Care Team Description 09/09/2013 Ancillary Hematology and CLINIC, DR BENJAMIN NGO (chron ic Appointment [place] [facility] [place] Livingston MD [facility] HEMATOLOGY/[place] [address] lymphocytic [facility] leukemia) [place] [address] Social History Tobacco Use Types [...] Ángel Fischer MD [facility] [place] [address] Oncology Alyssa Joseph[address] [place] [address] 03/25/2022 Infusion Hematology and Oncology 03/31/2022 Office Visit Hematology and Alan Livingston M D [facility] DR HEMATOLOGY/[place] [address] Oncology Nilam So MANUFACTURING ENGINEERING TECHNICIAN [facility] HEMATOLOGY/[place] [address] 04/15/2022 Office Visit Hematology Ángel Kimbrough Oncology [facility] ONCOLOGY [place], [place] 0375 (Wo rk) 04/15/2022 Infusion Hematology and Oncology 04/15/2022 Office Visit Hematology and Jazzy Armendariz R D [facility] CENTER CESAR HEMATOLOGY AND ONCOLOGY [place], [place] 0375 (Wo rk) 09/05/2022 Scheduled View Only Obstetrics and Nurse, Julian COLEMAN folder and notcher 09/05/2022 Office Visit Obstetrics and Gutierrez, Shazia Baer APRN Gynecology [facility] UROGYNECOLOGY [place], [place] 0375 (Wo rk) documented as of this encounter Visit Diagnoses Diagnosis CLL (chronic lymphocytic leukemia) Chronic lymphoid leukemia, without menti on of having achieved remission Colon cancer metastasized to liver Malignant neoplasm of colon, unspecified site documented in this encounter Care Teams Water Valve Mechanic Relationship Specialty Start Date End Date Berkley Madrigal MD PCP - General 04/13/10 02/15/18 AYLEEN Katarina [address] [place] [address] documented as of this encounter
--- OUTSIDE RECORDS SUMMARY | 2022-03-25 01:31 | XMS_ITS | Encounter Summary ---
:1950 Author Organization [facility] [place] [address] Care Team Providers Name Role Phone Berkley Madrigal MD Primary Care Provider Encounter Details Date Type Department Care Team Description 06/10/2013 Hospital Encounter Hematology and Oncology CLINIC, DR ALEXAND[place] [facility] Alan Livingston MD [facility] HEMATOLOGY/[place] [address] [place] [address] Social History Tobacco Use Types Packs/Day [...] MD [facility] [place] [address] Oncology Alyssa Joseph [address] [address] 03/25/2022 Infusion Hematology and Oncology 03/31/2022 Office Visit Hematology and Alan Livingston M D [facility] DR HEMATOLOGY/[place] [address] Oncology Nilam So, BALLOON TESTER [facility] HEMATOLOGY/[place] [address] 04/15/2022 Office Visit Hematology and Ángel Fischer, Oncology [facility] ONCOLOGY [place], [place] 0375 (Wo rk) 04/15/2022 Infusion Hematology and Oncology 04/15/2022 Office Visit Hematology and Jazzy Armendariz R D Oncology [facility] DRIVE HEMATOLOGY AND ONCOLOGY [place], [place] 0375 (Wo rk) 09/05/2022 Scheduled View Only Obstetrics and Nurse, Julian COLEMAN, store stock associate 09/05/2022 Office Visit Obstetrics and Shazia Whitley, BALLOON TESTER Gynecology [facility] UROGYNECOLOGY [place], [place] 0375 (Wo rk) documented as of this encounter Visit Diagnoses Not on filedocumented in this encounter Care Teams Urgent Care Technician Relationship Specialty Start Date End Date Berkley Madrigal MD PCP - General 04/13/10 02/15/18 AYLEEN Bray [address] [place] [address] documented as of this encounter
--- OUTSIDE RECORDS SUMMARY | 2022-03-25 01:31 | XMS_ITS | Encounter Summary ---
:1950 Author Organization [facility] [place] [address] Care Team Providers Name Role Phone Berkley Madrigal MD Primary Care Provider Encounter Details Date Type Department Care Team Description 10/08/2012 Hospital Encounter Laboratory CLINIC, DR ALEXANDER [facility] Alan Livingston MD [facility] HEMATOLOGY/[place] [address] [place] [address] Social History Tobacco Use Types Packs/Day [...] MD [facility] [place] [address] Oncology Alyssa Joseph[address] [place] [address] 03/25/2022 Infusion Hematology and Oncology 03/31/2022 Office Visit Hematology and Alan Livingston M D [facility] HEMATOLOGY/[place] [address] Oncology Nilam So CRM BUSINESS ANALYST [facility] HEMATOLOGY/[place] [address] 04/15/2022 Office Visit Hematology and Ángel Fischer, Oncology [facility] ONCOLOGY [place], [place] 0375 (Wo rk) 04/15/2022 Infusion Hematology and Oncology 04/15/2022 Office Visit Hematology and Jazzy Armendariz R D Oncology [facility] CESAR HEMATOLOGY AND ONCOLOGY [place], [place] 0375 (Wo rk) 09/05/2022 Scheduled View Only Obstetrics and NurseJulian II, asset protection lead 09/05/2022 Office Visit Obstetrics and Shazia Whitley APRN Gynecology [facility] UROGYNECOLOGY [place], [place] 0375 (Wo rk) documented as of this encounter Visit Diagnoses Not on filedocumented in this encounter Care Teams Dye Automation Operator Relationship Specialty Start Date End Date Berkley Madrigal MD PCP - General 04/13/10 02/15/18 AYLEEN Bray [address] [place] [address] documented as of this encounter
--- OUTSIDE RECORDS SUMMARY | 2022-03-25 01:31 | XMS_ITS | Encounter Summary ---
:1950 Author Organization [facility] Address [address] [place] [address] Care Team Providers Name Role Phone Berkley Madrigal MD Primary Care Provider Encounter Details Date Type Department Care Team Description 10/23/2013 Orders Only Endocrinology at [facility] Maribel Julian, ADENIKE [facility] D [facility] [address] [place] [address] ENDOCRINOLOGY DEPT. [phone] [place], [place] 0375 (Wo rk) Social History Tobacco [...] Ángel Fischer MD [facility] [place] [address] Oncology Alyssa Joseph[address] [address] 03/25/2022 Infusion Hematology and Oncology 03/31/2022 Office Visit Hematology and Alan Livingston M D [facility] HEMATOLOGY/[place] [address] Oncology Nilam So [facility] HEMATOLOGY/[place] [address] 04/15/2022 Office Visit Ángel Hill Oncology [facility] ONCOLOGY [place], [place] 0375 (Wo rk) 04/15/2022 Infusion Hematology and Oncology 04/15/2022 Office Visit Hematology and Jazzy Armendariz R D Oncology [facility] CESAR HEMATOLOGY AND ONCOLOGY [place], [place] 0375 (Wo rk) 09/05/2022 Scheduled View Only Obstetrics and Julian Enciso II community cultural development officer 09/05/2022 Office Visit Obstetrics and Shazia Whitley APRN Gynecology [facility] UROGYNECOLOGY [place], [place] 0375 (Wo rk) documented as of this encounter Visit Diagnoses Not on filedocumented in this encounter Care Teams Inverted Block Operator Relationship Specialty Start Date End Date Berkley Madrigal MD PCP - General 04/13/10 02/15/18 AYLEEN Bray [address] [place] [address] documented as of this encounter
--- OUTSIDE RECORDS SUMMARY | 2022-03-25 01:31 | XMS_ITS | Encounter Summary ---
:1950 Author Organization [facility] Address [address] [place] [address] Care Team Providers Name Role Phone Berkley Madrigal MD Primary Care Provider Reason for Visit Reason Comments Diabetes Encounter Details Date Type Department Care Team Description 10/28/2013 Office Visit Endocrinology at [facility] C Maribel Ware, Type II or [facility] RESOURCE ENGINEER unspecified type Drive [facility] [place] [address] without mention of [phone] ENDOCRINOLOGY complication, not DEPT. stated as [place], [place] [address] uncontrolled (Primary [phone] Dx) (Work) Social History Tobacco Use Types [...] Visit Hematology and Sonny Fischerory H, MD [facility] [place] [address] Oncology Alyssa Joseph[address] MEDICAL ONCOLOGY [place], [place] [address] 03/25/2022 Infusion Hematology and Oncology 03/31/2022 Office Visit Hematology and Alan Livingston M D [facility] HEMATOLOGY/[place] [address] Oncology Nilam So RESOURCE ENGINEER [facility] HEMATOLOGY/[place] [address] 04/15/2022 Office Visit Hematology and Ángel Fischer Oncology MD [facility] ONCOLOGY [place], [place] 0375 (Wo rk) 04/15/2022 Infusion Hematology and Oncology 04/15/2022 Office Visit Hematology and Jazzy Armendariz R D Oncology [facility] CESAR HEMATOLOGY AND ONCOLOGY [place], [place] 0375 (Wo rk) 09/05/2022 Scheduled View Only Obstetrics and Julian Enciso II, RN Gynecology 09/05/2022 Office Visit Obstetrics and Shazia Whitlye APRN Gynecology [facility] UROGYNECOLOGY [place], [place] 0375 (Wo rk) documented as of this encounter Visit Diagnoses Diagnosis Type II or unspecified type diabetes omer litus without mention of complication, not stated as uncontrolled - Primary Colon cancer metastasized to liver Malignant neoplasm of colon, unspecified site documented in this encounter Care Teams Counselling Psychologist Relationship Specialty Start Date End Date Berkley Madrigal MD PCP - General 04/13/10 02/15/18 AYLEEN Bray [address] [place] [address] documented as of this encounter
--- OUTSIDE RECORDS SUMMARY | 2022-03-25 01:31 | XMS_ITS | Encounter Summary ---
:1950 Author Organization [facility] Address [address] [facility] [address] [place] [address] Care Team Providers Name Role Phone Berkley Madrigal MD Primary Care Provider Encounter Details Date Type Department Care Team Description 10/02/2013 Orders Only Endocrinology at [facility] Maribel Julian, Type II or unspecified [facility] SUPERVISOR SANDBLASTER type diabetes mellitus [facility] [place] [address] CENTER iqra Null [phone] ENDOCRINOLOGY stated as unco ntrolled DEPT. (Primary Dx) [place], [place] [address] Social History Tobacco Use Types [...] Ángel Fischer MD [facility] [place] [address] Oncology Alyssa Joseph[address] [address] 03/25/2022 Infusion Hematology and Oncology 03/31/2022 Office Visit Hematology and Alan Livingston M D [facility] DR HEMATOLOGY/[place] [address] Oncology Nilam So APRN [facility] HEMATOLOGY/[place] [address] 04/15/2022 Office Visit Hematology Ángel Kimbrough Oncology [facility] ONCOLOGY [place], [place] 0[address] (Wo rk) 04/15/2022 Infusion Hematology and Oncology 04/15/2022 Office Visit Hematology and Jazzy Armendariz R D Oncology [facility] DRIVE HEMATOLOGY AND ONCOLOGY [place], [place] 0375 (Wo rk) 09/05/2022 Scheduled View Only Obstetrics and NurseJulian II die cutting machine operator 09/05/2022 Office Visit Obstetrics and Shazia Whitley APRN Gynecology [facility] UROGYNECOLOGY [place], [place] [address] (Wo rk) documented as of this encounter Visit Diagnoses Diagnosis Type II or unspecified type diabetes omer litus without mention of complication, not stated as uncontrolled - Primary Colon cancer metastasized to liver Malignant neoplasm of colon, unspecified site documented in this encounter Care Teams Book Coverer Relationship Specialty Start Date End Date Berkley Madrigal MD PCP - General 04/13/10 02/15/18 AYLEEN Katarina [address] [place] [address] documented as of this encounter
--- OUTSIDE RECORDS SUMMARY | 2022-03-25 01:31 | XMS_ITS | Encounter Summary ---
:1950 Author Organization [facility] [place] [address] Care Team Providers Name Role Phone Berkley Madrigal MD Primary Care Provider Encounter Details Date Type Department Care Team Description 06/10/2013 Notes Only Hematology and Oncology at [facility], Janessa mcmanus, [place] [address] Social History Tobacco Use Types Packs/Day [...] is having routine blood draws performed at [facility]. Patient was offered the opportunity to [...] was signed and dated by patient and commercial underwriter. Written informed consent was obtained prior [...] 03/25/2022 Office Visit Hematology Ángel Kimbrough MD [facility] [address] Oncology Alyssa Joseph [address] [address] 03/25/2022 Infusion Hematology and Oncology 03/31/2022 Office Visit Hematology and Alan Livingston M D [facility] DR HEMATOLOGY/[place] [address] Oncology Nilam So [facility] HEMATOLOGY/[place] [address] 04/15/2022 Office Visit Hematology Ángel Kimbrough Oncology MD [facility] ONCOLOGY [place], [place] 0375 (Wo rk) 04/15/2022 Infusion Hematology and Oncology 04/15/2022 Office Visit Hematology and Jazzy Armendariz R D Oncology [facility] CESAR HEMATOLOGY AND ONCOLOGY [place], [place] 0375 (Wo rk) 09/05/2022 Scheduled View Only Obstetrics and NurseJulian II, paper rewinder 09/05/2022 Office Visit Obstetrics and Shazia Whitley APRN Gynecology [facility] UROGYNECOLOGY [place], [place] 0[address] (Wo rk) documented as of this encounter Visit Diagnoses Not on filedocumented in this encounter Care Teams Automated Teller Manager Relationship Specialty Start Date End Date Berkley Madrigal MD PCP - General 04/13/10 02/15/18 AYLEEN Bray [address] [place] [address] documented as of this encounter
--- OUTSIDE RECORDS SUMMARY | 2022-03-25 01:31 | XMS_ITS | Encounter Summary ---
:1950 Author Organization [facility] [place] [address] Care Team Providers Name Role Phone Berkley Madrigal MD Primary Care Provider Encounter Details Date Type Department Care Team Description 03/11/2013 Ancillary Hematology and CLINIC, DR BENJAMIN NGO (chron ic Appointment Oncology at [facility] Sai Cartwright MD [facility] DR HEMATOLOGY/[place] [address] [facility] leukemia) [place] [address] Social History Tobacco Use Types [...] 03/25/2022 Office Visit Hematology Ángel Kimbrough MD [facility] [place] [address] Oncology Alyssa Joseph[address] [place] [address] 03/25/2022 Infusion Hematology and Oncology 03/31/2022 Office Visit Hematology and Alan Livingston M D [facility] HEMATOLOGY/[place] [address] Oncology Nilam So RUG MEASURER [facility] HEMATOLOGY/[place] [address] 04/15/2022 Office Visit Ángel Hill Oncology [facility] ONCOLOGY [place], [place] 0[address] (Wo rk) 04/15/2022 Infusion Hematology and Oncology 04/15/2022 Office Visit Hematology and Jazzy Armendariz R D Oncology [facility] DRIVE HEMATOLOGY AND ONCOLOGY [place], [place] 0375 (Wo rk) 09/05/2022 Scheduled View Only Obstetrics and NurseJulian II line patroller 09/05/2022 Office Visit Obstetrics and Shazia Whitley APRN Gynecology [facility] UROGYNECOLOGY [place], [place] [address] (Wo rk) documented as of this encounter Visit Diagnoses Diagnosis CLL (chronic lymphocytic leukemia) Chronic lymphoid leukemia, without menti on of having achieved remission Colon cancer metastasized to liver Malignant neoplasm of colon, unspecified site documented in this encounter Care Teams Motor Vehicle Parts Interpreter Relationship Specialty Start Date End Date Berkley Madrigal MD PCP - General 04/13/10 02/15/18 AYLEEN Bray [address] [place] [address] documented as of this encounter
--- OUTSIDE RECORDS SUMMARY | 2022-03-25 01:31 | XMS_ITS | Encounter Summary ---
:1950 Author Organization [facility] Address [facility] [place] [address] Care Team Providers Name Role Phone Berkley Madrigal MD Primary Care Provider Encounter Details Date Type Department Care Team Description 07/12/2013 Orders Only Endocrinology at [facility] C Pasquale Rich, Type 2 diabetes [facility] Katarina evangelista MD mellitus (Primary [place]x) [place] [address] [facility] [phone] CENTER ENDOCRINOLOGY DEPT. [place], [place] 0[address] Social History Tobacco Use Types [...] MD [facility] [place] [address] Oncology Alyssa Joseph[address] [place] [address] 03/25/2022 Infusion Hematology and Oncology 03/31/2022 Office Visit Hematology and Alan Livingston M D [facility] HEMATOLOGY/[place] [address] Oncology Nilam So JEWELRY BENCH MOLDER [facility] HEMATOLOGY/[place] [address] 04/15/2022 Office Visit Ángel Hill Oncology [facility] DR [place], [place] [address] (Wo rk) 04/15/2022 Infusion Hematology and Oncology 04/15/2022 Office Visit Hematology and Jazzy Armendariz R D Oncology [facility] DRIVE HEMATOLOGY AND ONCOLOGY [place], [place] 0[address] (Wo rk) 09/05/2022 Scheduled View Only Obstetrics and NurseJulian II, geomagnetist 09/05/2022 Office Visit Obstetrics and Shazia Whitley APRN Gynecology [facility] UROGYNECOLOGY [place], [place] [address] (Wo rk) documented as of this encounter Visit Diagnoses Diagnosis Type 2 diabetes mellitus - Primary Type II or unspecified type diabetes omer litus without mention of complication, not stated as uncontrolled Colon cancer metastasized to liver Malignant neoplasm of colon, unspecified site documented in this encounter Care Teams Paper Ruler Relationship Specialty Start Date End Date Berkley Madrigal MD PCP - General 04/13/10 02/15/18 AYLEEN Bray [address] [place] [address] documented as of this encounter
--- OUTSIDE RECORDS SUMMARY | 2022-03-25 01:31 | XMS_ITS | Encounter Summary ---
:1950 Author Organization [facility] [place] [address] Care Team Providers Name Role Phone Berkley Madrigal MD Primary Care Provider Encounter Details Date Type Department Care Team Description 03/11/2013 Hospital Encounter Hematology and Oncology [place]IC, [facility] [place] [facility] Alan Livingston MD [facility] HEMATOLOGY/[place] [address] [place] [address] Social History Tobacco Use Types Packs/Day [...] MD [facility] [place] [address] Oncology Alyssa Joseph[address] [place] [address] 03/25/2022 Infusion Hematology and Oncology 03/31/2022 Office Visit Hematology and Alan Livingston M D [facility] HEMATOLOGY/[place] [address] [facility] HEMATOLOGY/[place] [address] 04/15/2022 Office Visit Hematology and Ágnel Fischer, Oncology [facility] ONCOLOGY [place], [place] 0[address] (Wo rk) 04/15/2022 Infusion Hematology and Oncology 04/15/2022 Office Visit Hematology and Jazzy Armendariz R D Oncology [facility] CESAR HEMATOLOGY AND ONCOLOGY [place], [place] 0375 (Wo rk) 09/05/2022 Scheduled View Only Obstetrics and NurseJulian II, weight yardage checker 09/05/2022 Office Visit Obstetrics and Shazia Whitley APRN Gynecology [facility] UROGYNECOLOGY [place], [place] 0[address] (Wo rk) documented as of this encounter Visit Diagnoses Not on filedocumented in this encounter Care Teams Plumbing Installer Relationship Specialty Start Date End Date Berkley Madrigal MD PCP - General 04/13/10 02/15/18 AYLEEN Bray [address] [place] [address] documented as of this encounter
--- OUTSIDE RECORDS SUMMARY | 2022-03-25 01:31 | XMS_ITS | Encounter Summary ---
:1950 Author Organization [facility] [place] [address] Care Team Providers Name Role Phone Berkley Madrigal MD Primary Care Provider Reason for Visit Reason Onset Date Comments Diabetes 10/23/2013 Encounter Details Date Type Department Care Team Description 10/23/[address] [facility] Maribel Julian APRN [facility] D [facility] [address] [place] [address] ENDOCRINOLOGY DEPT. [phone] [place], [place] 0[address] (Wo rk) Social History Tobacco [...] [facility] [place] [address] Oncology Alyssa Joseph APRN [address] [place] [address] [place] [address] 03/25/2022 Infusion Hematology and Oncology 03/31/2022 Office Visit Hematology and Alan Livingston M D [facility] HEMATOLOGY/[place] [address] Oncology Nilam So APRN [facility] HEMATOLOGY/[place] [address] 04/15/2022 Office Visit Hematology and Ángel Fischer, Oncology [facility] ONCOLOGY [place], [place] 0375 (Wo rk) 04/15/2022 Infusion Hematology and Oncology 04/15/2022 Office Visit Hematology and Jazzy Armendariz R D Oncology [facility] DRIVE HEMATOLOGY AND ONCOLOGY [place], [place] 0375 (Wo rk) 09/05/2022 Scheduled View Only Obstetrics and Nurse, Julian COLEMAN, head kiln operator 09/05/2022 Office Visit Obstetrics and Shazia Whitley APRN Gynecology [facility] UROGYNECOLOGY [place], [place] [address] (Wo rk) documented as of this encounter Visit Diagnoses Not on filedocumented in this encounter Care Teams Dumper Mold Cleaner Relationship Specialty Start Date End Date Berkley Madrigal MD PCP - General 04/13/10 02/15/18 AYLEEN Bray [address] [place] [address] documented as of this encounter
--- OUTSIDE RECORDS SUMMARY | 2022-03-25 01:31 | XMS_ITS | Encounter Summary ---
:1950 Author Organization [facility] [place] [address] Care Team Providers Name Role Phone Berkley Madrigal MD Primary Care Provider Reason for Visit Reason Comments Follow-up Encounter Details Date Type Department Care Team Description 10/08/2012 Follow-Up Hematology and Alan Livingston M D CLL (chronic lymphocytic leukemia) (Prim alyson Dx); Oncology at [facility] Chronic lymphocytic leukemia [facility] DR Perkins HEMATOLOGY/[place] [address] DEPT. [phone] [place], [place] [address] (Wo rk) Social History Tobacco [...] this encounter Patient Instructions Patient InstructionsNilam So, AZURE PRINCIPAL SOLUTION SPECIALIST - 10/08/2012 1:14 PM EDT Recent Results [...] She is looking forward to white water [employer] this summer. Review of Systems Constitutional: Negative. [...] is having routine blood draws performed at [facility]. Patient was offered the opportunity [...] was signed and dated by patient and marketing underwriter. Written informed consent was obtained prior [...] Fischer MD [facility] [place] [address] Oncology Alyssa Joseph APRN [address] [place] [address] [place] [address] 03/25/2022 Infusion Hematology and Oncology 03/31/2022 Office Visit Hematology and Alan Livingston M D [facility] HEMATOLOGY/[place] [address] Oncology Nilam So APRN [facility] HEMATOLOGY/[place] [address] 04/15/2022 Office Visit Ángel Hill Oncology MD [facility] DR UMANA [place], [place] [address] (Wo rk) 04/15/2022 Infusion Hematology and Oncology 04/15/2022 Office Visit Hematology and Jazzy Armendariz R D Oncology [facility] CESAR HEMATOLOGY AND ONCOLOGY [place], [place] [address] (Wo rk) 09/05/2022 Scheduled View Only Obstetrics and Nurse, Julian COLEMAN, cable strander 09/05/2022 Office Visit Obstetrics and Shazia Whitley APRN Gynecology [facility] UROGYNECOLOGY [place], [place] [address] (Wo rk) documented as of [...] Organization Address City/State/[place] [address] CERNER MILLENNIUM Comprehensive metabolic panel (non-fasting) (03/11/2013 2:46 PM EDT) athologist Signature Glucose Lvl 85 60 - 199 CERNER mg/dL MILLENNIUM Comment: Diabetes: >=200 mg/dL plus symp toms BUN 15 8 - 18 mg/dL CERNER MILLENNIUM Creatinine 0.92 0.70 - 1.20 mg/dL CERNER MILL ENNIUM Comment: Please note that the pediatric reference intervals supplied above were not validated [place] [facility] Results from pediatri c patients [...] Livingston MD CHEMISTRY ORDERABLES Performing Organization Address City/[facility]/ZIP Code Phon e Number [address] CERNER MILLENNIUM (ABNORMAL) CBC (with Diff) (03/11/2013 2:46 PM EDT) P athologist Signature WBC 109.2 4.0 - 10.0 CERNER (Critical) x10(3)/mcL MILLENNIUM Comment: #WBCC This result has been called to mechelle fihs by MARIELA MENJIVAR on 03.11.13 at 15:11, [...] Platelets 168 145 - 370 x10(3)/mcL CERNER MA LLENNIUM RDWSD 47.3 (H) 35.0 - 46.0 [...] Livingston MD HEMATOLOGY ORDERABLES Performing Organization Address City/[facility]/ZIP Code Phon e Number [address] CERNER MILLENNIUM T4, free (10/08/2012 11:59 AM EDT) athologist Signature Free T4 1.03 0.90 - 1.60 CERNER ng/dL MILLENNIUM Specimen Anatomical Collection Method Collection Time Receive d Time (Source) Location / / Volume Laterality Blood specimen 10/08/2012 11:59 3 (specimen) AM EDT 12:08 PM EDT Resulting Agency Comment Spec In Lab Alan Livingston MD CHEMISTRY ORDERABLES Performing Organization Address City/[facility]/ZIP [facility] [place] [address] CERNER MILLENNIUM TSH (10/08/2012 11:59 AM EDT) P athologist Signature TSH 3.00 0.27 - 4.20 CERNER mcIU/mL MILLENNIUM Specimen Anatomical Collection Method Collection Time Receive d Time (Source) Location / / Volume Laterality Blood specimen 10/08/2012 11:59 3 (specimen) AM EDT 12:08 PM EDT Resulting Agency Comment Spec In Lab Alan Livingston MD CHEMISTRY ORDERABLES Performing Organization Address City/[facility] [place] [address] CERNER MILLENNIUM (ABNORMAL) Differential, [...] Organization Address City/State/ZIP Code Phon e Number [address] CERNER MILLENNIUM Nucleated Red Blood Cells (10/08/2012 11:59 AM EDT) athologist Signature nRBC % Auto 0.0 0.0 - 0.2 CERNER % MILLENNIUM nRBC Abs Auto 0.000 0.000 - CERNER 0.012 MILLENNIUM x10(3)/mcL Specimen Anatomical Collection Method Collection Time Receive d Time (Source) Location / / Volume Laterality Blood specimen 10/08/2012 11:59 3 (specimen) AM EDT 12:08 PM EDT Resulting Agency Comment Spec In Lab Alan Livingston MD HEMATOLOGY ORDERABLES Performing Organization Address City/[facility]/ZIP Code Phon e Number [address] CERNER MILLENNIUM (ABNORMAL) Comprehensive metabolic panel (non-fasting) (10/08/2012 11:59 AM EDT) athologist Signature Glucose Lvl 94 60 - 199 CERNER mg/dL MILLENNIUM Comment: Diabetes: >=200 mg/dL plus symp toms BUN 13 8 - 18 mg/dL CERNER MILLENNIUM Creatinine 0.88 0.70 - 1.20 mg/dL CERNER MILL ENNIUM Comment: Please note that the pediatric reference intervals supplied above were not validated [place] [facility] Results from pediatri c patients [...] Organization Address City/State/[place] [address] CERNER MILLENNIUM (ABNORMAL) CBC (with Diff) (10/08/2012 11:59 AM EDT) P athologist Signature WBC 93.8 4.0 - 10.0 CERNER (Critical) x10(3)/mcL MILLENNIUM Comment: This result has been called to CAROL BERMUDEZ by TYSON MILLS on 10.08.12 at 12:42, and has b een read back (). RBC 4.67 3.93 - [...] Platelets 177 145 - 370 x10(3)/mcL CERNER MA LLENNIUM RDWSD 46.4 (H) 35.0 - 46.0 [...] Organization Address City/State/[place] [address] YANELIS SALCIDO documented in this encounter Visit Diagnoses Diagnosis CLL (chronic lymphocytic leukemia) - Cordelia shukri Chronic lymphoid leukemia, without menti on of having achieved remission Chronic lymphocytic leukemia Chronic lymphoid leukemia, without menti on of having achieved remission Colon cancer metastasized to liver Malignant neoplasm of colon, unspecified site documented in this encounter Care Teams Form Setter Supervisor Relationship Specialty Start Date End Date Berkley Madrigal MD PCP - General 04/13/10 02/15/18 AYLEEN D [address] [place] [address] documented as of this encounter
--- OUTSIDE RECORDS SUMMARY | 2022-03-25 01:32 | XMS_ITS | Encounter Summary ---
:1950 Author Organization [facility] Address [facility] [place] [address] Care Team Providers Name Role Phone Berkley Madrigal MD Primary Care Provider Encounter Details Date Type Department Care Team Description 05/24/2010 Follow-Up Hematology and Oncology at CLINIC, DR JODIE Mckeon [facility] Alan Livingston MD [facility] HEMATOLOGY/[place] [address] [facility] [place] [address] Social History Tobacco Use Types Packs/Day [...] Ángel Fischer MD [facility] [place] [address] Oncology Alyssa Joseph[address] [place] [address] 03/25/2022 Infusion Hematology and Oncology 03/31/2022 Office Visit Hematology and Alan Livingston M D [facility] HEMATOLOGY/[place] [address] Oncology Nilam So [facility] HEMATOLOGY/[place] [address] 04/15/2022 Office Visit Hematology Ángel Kimbrough Oncology MD [facility] ONCOLOGY [place], [place] [address] (Wo rk) 04/15/2022 Infusion Hematology and Oncology 04/15/2022 Office Visit Hematology and Jazzy Armendariz R D [facility] CESAR HEMATOLOGY AND ONCOLOGY [place], [place] 0[address] (Wo rk) 09/05/2022 Scheduled View Only Obstetrics and Nurse, Julian COLEMAN, circular stuffer 09/05/2022 Office Visit Obstetrics and Shazia Whitley APRN Gynecology [facility] UROGYNECOLOGY [place], [place] [address] (Wo rk) documented as of this encounter Visit Diagnoses Not on filedocumented in this encounter Care Teams Mystery Shopper Relationship Specialty Start Date End Date Berkley Madrigal MD PCP - General 04/13/10 02/15/18 AYLEEN Katarina [address] [place] [address] documented as of this encounter
--- OUTSIDE RECORDS SUMMARY | 2022-03-25 01:32 | XMS_ITS | Encounter Summary ---
:1950 Author Organization [place] [address] Care Team Providers Name Role Phone Berkley Madrigal MD Primary Care Provider Encounter Details Date Type Department Care Team Description 05/24/2010 Procedure visit Hematology and Oncol ogjimmy at [facility] [place] [address] Social History Tobacco Use Types Packs/Day [...] Fischer MD [facility] [place] [address] Oncology Alyssa Joseph [address] [place] [address] 03/25/2022 Infusion Hematology and Oncology 03/31/2022 Office Visit Hematology and Alan Livingston M D [facility] HEMATOLOGY/[place] [address] Oncology Nilam So [facility] HEMATOLOGY/[place] [address] 04/15/2022 Office Visit Hematology Ángel Kimbrough Oncology [facility] ONCOLOGY [place], [place] [address] (Wo rk) 04/15/2022 Infusion Hematology and Oncology 04/15/2022 Office Visit Hematology and Jazzy Armendariz R D Oncology [facility] CESAR HEMATOLOGY AND ONCOLOGY [place], [place] [address] (Wo rk) 09/05/2022 Scheduled View Only Obstetrics and Nurse, Julian COLEMAN, recoil spring winder 09/05/2022 Office Visit Obstetrics and Shazia Whitley APRN Gynecology [facility] UROGYNECOLOGY [place], [place] [address] (Wo rk) documented as of this encounter Visit Diagnoses Not on filedocumented in this encounter Care Teams Double Reamer Operator Relationship Specialty Start Date End Date Berkley Madrigal MD PCP - General 04/13/10 02/15/18 AYLEEN Bray [address] [place] [address] documented as of this encounter
--- OUTSIDE RECORDS SUMMARY | 2022-03-25 01:32 | XMS_ITS | Encounter Summary ---
:1950 Author Organization [facility] [place] [address] Care Team Providers Name Role Phone Berkley Madrigal MD Primary Care Provider Encounter Details Date Type Department Care Team Description 12/06/2010 Hospital Encounter Laboratory CLINIC, DR ALEXANDER [facility] Alan Livingston MD [facility] HEMATOLOGY/[place] [address] [place] [address] Social History Tobacco Use Types Packs/Day [...] Fischer MD [facility] [place] [address] Oncology Alyssa Joseph, [address] [address] 03/25/2022 Infusion Hematology and Oncology 03/31/2022 Office Visit Hematology and Alan Livingston M D [facility] DR HEMATOLOGY/[place] [address] Oncology Nilam So MANAGER PRICING [facility] HEMATOLOGY/[place] [address] 04/15/2022 Office Visit Hematology and Ángel Fischer, Oncology [facility] ONCOLOGY [place], [place] [address] (Wo rk) 04/15/2022 Infusion Hematology and Oncology 04/15/2022 Office Visit Hematology and Jazzy Armendariz R D Oncology [facility] DRIVE HEMATOLOGY AND ONCOLOGY [place], [place] [address] (Wo rk) 09/05/2022 Scheduled View Only Obstetrics and Nurse, Julian COLEMAN, transcriptionist 09/05/2022 Office Visit Obstetrics and Shazia Whitley, MANAGER PRICING Gynecology [facility] UROGYNECOLOGY [place], [place] [address] (Wo rk) documented as of this encounter Visit Diagnoses Not on filedocumented in this encounter Care Teams Running Instructor Relationship Specialty Start Date End Date Berkley Madrigal MD PCP - General 04/13/10 02/15/18 AYLEEN Bray [address] [place] [address] documented as of this encounter
--- OUTSIDE RECORDS SUMMARY | 2022-03-25 01:32 | XMS_ITS | Encounter Summary ---
:1950 Author Organization [facility] [place] [address] Care Team Providers Name Role Phone Berkley Madrigal MD Primary Care Provider Encounter Details Date Type Department Care Team Description 05/24/2010 Orders Only Lab [facility] Alan Redmond MD [facility] Katarina evangelista HEMATOLOGY/[place] [address] DEPT. [phone] [place], [place] [address] (Wo rk) Social History Tobacco [...] MD [facility] [place] [address] Oncology Alyssa Joseph[address] [address] 03/25/2022 Infusion Hematology and Oncology 03/31/2022 Office Visit Hematology and Alan Livingston M D [facility] HEMATOLOGY/[place] [address] Oncology Nilam So [facility] HEMATOLOGY/[place] [address] 04/15/2022 Office Visit Ángel Hill Oncology MD [facility] ONCOLOGY [place], [place] 0[address] (Wo rk) 04/15/2022 Infusion Hematology and Oncology 04/15/2022 Office Visit Hematology and Jazzy Armendariz R D [facility] CESAR HEMATOLOGY AND ONCOLOGY [place], [place] [address] (Wo rk) 09/05/2022 Scheduled View Only Obstetrics and Nurse, Julian COLEMAN, paper folder 09/05/2022 Office Visit Obstetrics and Shazia Whitley APRN Gynecology [facility] UROGYNECOLOGY [place], [place] [address] (Wo rk) documented as of this encounter [...] Organization Address City/State/[place] [address] CERNER MILLENNIUM (ABNORMAL) REFLEX [...] Organization Address City/State/[place] [address] CERNER MILLENNIUM COMPREHENSIVE METABOLIC PANEL (NON-FASTING) (05/24/2010 12:38 PM EST) P athologist Signature Glucose Lvl 88 <=199 mg/dL CERNER MILLENNIUM Comment: Diabetes: >=200 mg/dL plus symp toms BUN 16 8 - 18 mg/dL CERNER MILLENNIUM Creatinine 0.89 0.70 - 1.20 mg/dL CERNER MILL ENNIUM Sodium 140 135 - 145 mmol/L CERNER JVAI NIUM Potassium 4.7 3.5 - 5.0 mmol/L CERNER JAIV NIUM Comment: Please note: ??Patients with WBC [...] Organization Address City/State/[place] [address] CERNER MILLENNIUM (ABNORMAL) CBC (05/24/2010 12:38 PM EST) P [...] Platelets 197 145 - 370 x10(3)/mcL CERNER [place] LLENNIUM RDWSD 45.3 35.0 - 46.[address] [facility] MILL[facility]NI UM RDWCV 13.8 10.9 - 14.4 % CERNER MILLENNIU M MPV 11.0 9.0 - 12.0 fL CERNER MILLENNIU M Specimen Anatomical Collection Method Collection Time Receive d Time (Source) Location / / Volume Laterality Blood specimen 05/24/2010 12:38 1 (specimen) PM EST 12:51 PM EST Alan Livingston MD HEMATOLOGY ORDERABLES Performing Organization Address City/[facility]/[place] [address] [facility] documented in this encounter Visit Diagnoses Not on filedocumented in this encounter Care Teams Waistline Joiner Lockstitch Relationship Specialty Start Date End Date Berkley Madrigal MD PCP - General 04/13/10 02/15/18 AYLEEN Bray [address] [place] [address] documented as of this encounter
--- OUTSIDE RECORDS SUMMARY | 2022-03-25 01:32 | XMS_ITS | Encounter Summary ---
:1950 Author Organization [facility] Address [facility] [place] [address] Care Team Providers Name Role Phone Berkley Madrigal MD Primary Care Provider Reason for Visit Reason Comments Follow-up Encounter Details Date Type Department Care Team Description 06/11/2012 Follow-Up Hematology and Alan Livingston M D CLL (chronic Oncology at [facility] lymphocytic leukemia) [facility] DR Perkins HEMATOLOGY/[place] [address] DEPT. [phone] [place], [place] [address] (Wo rk) Social History Tobacco [...] is having routine blood draws performed at [facility]. Patient was offered the opportunity [...] was signed and dated by patient and feature writer. Written informed consent was obtained prior to anystudy blood work being drawn. The patient has agreed to provide an additional two tubes of blood forthe purposes of this study. A copy of the signed consent form was given to patient. Original signed IC form given to JVAIER Perez. documented in this encounter Plan of Treatment Upcoming Encounters Date Type Specialty Care Team Description 03/25/2022 Office Visit Hematology and Ángel Fischer MD [facility] [place] [address] Oncology Alyssa Joseph[address] [place] [address] 03/25/2022 Infusion Hematology and Oncology 03/31/2022 Office Visit Hematology and Alan Livingston M D [facility] HEMATOLOGY/[place] [address] Oncology Nilam So [facility] HEMATOLOGY/[place] [address] 04/15/2022 Office Visit Ángel Hill Oncology MD [facility] DR UMANA [place] [address] (Wo rk) 04/15/2022 Infusion Hematology and Oncology 04/15/2022 Office Visit Hematology and Jazzy Armendariz R D [facility] CESAR HEMATOLOGY AND ONCOLOGY [place], [place] [address] (Wo rk) 09/05/2022 Scheduled View Only Obstetrics and Nurse, Julian COLEMAN, map and chart mounter 09/05/2022 Office Visit Obstetrics and Shazia Whitley APRN Gynecology [facility] UROGYNECOLOGY [place] [address] (Wo rk) documented as of this [...] intervals supplied above were not validated at [facility]. Results from pediatri c patients should be [...] CERNER MILL ENNIUM Estimated GFR >60 >=60 KALEENER DHIRAJIU M Comment: This estimated GFR (eGFR) value [...] Organization Address City/State/ZIP Code Phon e Number [place] [id number] CERNER MILLENNIUM (ABNORMAL) CBC [...] NNIUM Platelets 177 145 - 370 x10(3)/mcL YANELIS HARRINGTON LLENNIUM RDWSD 46.4 (H) 35.0 - 46.0 fL YANELIS MCKENNA UM RDWCV 13.7 10.9 - 14.4 % YANELIS MCKENNAU M MPV 11.8 9.0 - 12.0 fL YANELIS MCKENNAU M Specimen Anatomical Collection Method Collection Time Receive d Time (Source) Location / / Volume Laterality Blood specimen 10/08/2012 11:59 3 (specimen) AM EDT 12:08 PM EDT Resulting Agency Comment Spec In Lab Alan Livingston MD HEMATOLOGY ORDERABLES Performing Organization Address City/State/ZIP [place] [address] YANELIS SALCIDO documented in this encounter Visit Diagnoses Diagnosis CLL (chronic lymphocytic leukemia) Chronic lymphoid leukemia, without menti on of having achieved remission Colon cancer metastasized to liver Malignant neoplasm of colon, unspecified site documented in this encounter Care Teams Data Control Assistant Relationship Specialty Start Date End Date Berkley Madrigal MD PCP - General 04/13/10 02/15/18 AYLEEN D [address] [place] [address] documented as of this encounter
--- OUTSIDE RECORDS SUMMARY | 2022-03-25 01:32 | XMS_ITS | Encounter Summary ---
:1950 Author Organization [facility] [place] [address] Care Team Providers Name Role Phone Berkley Madrigal MD Primary Care Provider Encounter Details Date Type Department Care Team Description 09/12/2011 Laboratory Hematology and CLINIC, DR BENJAMIN NGO (chron ic Appointment Oncology at [facility] Rod King MD [facility] HEMATOLOGY/[place] [address] lymphocytic [facility] leukemia) [place] [id number] Social History Tobacco Use Types Packs/Day Years [...] Office Visit Hematology and Ángel Fischer MD [facility] [place] [address] Oncology Alyssa Joseph[address] [place] [address] 03/25/2022 Infusion Hematology and Oncology 03/31/2022 Office Visit Hematology and Alan Livingston M D [facility] HEMATOLOGY/[place] [address] Oncology Nilam So RAIL CAR MAINTENANCE MECHANIC [facility] HEMATOLOGY/[place] [address] 04/15/2022 Office Visit Ángel Hill Oncology [facility] DR UMANA [place], [place] [address] (Wo rk) 04/15/2022 Infusion Hematology and Oncology 04/15/2022 Office Visit Hematology and Jazzy Armendariz R D [facility] CESAR HEMATOLOGY AND ONCOLOGY [place], [place] [address] (Wo rk) 09/05/2022 Scheduled View Only Obstetrics and Nurse, Julian COLEMAN, wheel mill operator 09/05/2022 Office Visit Obstetrics and Shazia Whitley APRN Gynecology [facility] UROGYNECOLOGY [place], [place] [address] (Wo rk) documented as of this encounter Visit Diagnoses Diagnosis CLL (chronic lymphocytic leukemia) Chronic lymphoid leukemia, without menti on of having achieved remission Colon cancer metastasized to liver Malignant neoplasm of colon, unspecified site documented in this encounter Care Teams Assembly Machine Offbearer Relationship Specialty Start Date End Date Berkley Madrigal MD PCP - General 04/13/10 02/15/18 AYLEEN Bray [address] [place] [address] documented as of this encounter
--- OUTSIDE RECORDS SUMMARY | 2022-03-25 01:32 | XMS_ITS | Encounter Summary ---
:1950 Author Organization [facility] [place] [address] Care Team Providers Name Role Phone Berkley Madrigal MD Primary Care Provider Encounter Details Date Type Department Care Team Description 08/05/2011 Orders Only Hematology and Nilam So, Chronic ly mphoid Oncology at [facility] CONCRETE FINISHER leukemia (Primary Dx) [facility] [place] [address] HEMATOLOGY/ONCOLOG [phone] Y DEPT. [place] [address] Social History Tobacco Use Types [...] Ángel Fischer MD [facility] [place] [address] Oncology Alyssa Joseph[address] [place] [address] 03/25/2022 Infusion Hematology and Oncology 03/31/2022 Office Visit Hematology and Alan Livingston M D [facility] HEMATOLOGY/[place] [address] Oncology Nilam So [facility] HEMATOLOGY/[place] [address] 04/15/2022 Office Visit Hematology Ángel Kimbrough Oncology [facility] ONCOLOGY [place], [place] 0[address] (Wo rk) 04/15/2022 Infusion Hematology and Oncology 04/15/2022 Office Visit Hematology and Jazzy Armendariz R D [facility]ESAR HEMATOLOGY AND ONCOLOGY [place], [place] 0375 (Wo rk) 09/05/2022 Scheduled View Only Obstetrics and Nurse, Julian COLEMAN, lawn and garden technician 09/05/2022 Office Visit Obstetrics and Shazia Whitley APRN Gynecology [facility] UROGYNECOLOGY [place] [address] (Wo rk) documented as of this encounter Results Comprehensive metabolic panel (non-fasting) (09/12/2011 12:43 PM EDT) P athologist Signature Glucose Lvl 105 60 - [...] Organization Address City/State/[place] [address] CERNER MILLENNIUM (ABNORMAL) CBC (with Diff) (09/12/2011 12:43 PM EDT) P athologist Signature WBC 69.3 4.0 - 10.0 CERNER (Critical) x10(3)/mcL MILLENNIUM Comment: This result has been called to abel gil by DOROTEO BARRAGAN on 09.12.11 at 13:16, and moser s been read back (). RBC 4.87 3.93 - 5.22 x10(6)/mcL CERNER MILLENNIUM Hemoglobin 14.9 11.2 - 15.7 gm/dL CERNER MILL ENNIUM Hematocrit 44.6 34.0 - 45.0 % CERNER MILLENNI UM MCV 91.6 79.0 - 94.0 fL CERNER MILLENNI UM MCH 30.6 26.6 - 32.2 pg CERNER MILLENNI UM MCHC 33.4 32.0 - 36.5 gm/dL CERNER MILLE NNIUM Platelets 177 145 - 370 x10(3)/mcL CERNER [place] LLENNIUM RDWSD 44.1 35.0 - 46.0 fL CERNER MILLENNI UM RDWCV 13.3 10.9 - 14.4 % CERNER MILLENNIU M MPV 11.5 9.0 - 12.0 fL CERNER MILLENNIU M Specimen Anatomical Collection Method Collection Time Receive d Time (Source) Location / / Volume Laterality Blood specimen 09/12/2011 12:43 2 (specimen) PM EDT 12:48 PM EDT Resulting Agency Comment Spec In Lab Alan Livingston MD HEMATOLOGY ORDERABLES Performing Organization Address City/State/[place] [address] CERNER MILLENNIUM documented in this encounter Visit Diagnoses Diagnosis Chronic lymphoid leukemia, 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
--- OUTSIDE RECORDS SUMMARY | 2022-03-25 01:32 | XMS_ITS | Encounter Summary ---
:1950 Author Organization [facility] Address [facility] [place] [address] Care Team Providers Name Role Phone Berkley Madrigal MD Primary Care Provider Encounter Details Date Type Department Care Team Description 05/24/2010 Follow-Up Hematology and Oncology at Nilam Calles APRN [facility] Katarina evangelista HEMATOLOGY/[place] [address] DEPT. [phone] [place], [place] [address] (Wo rk) Social History Tobacco [...] Ángel Fischer MD [facility] [place] [address] Oncology Alyssa Joseph[address] [place] [address] 03/25/2022 Infusion Hematology and Oncology 03/31/2022 Office Visit Hematology and Alan Livingston M D [facility] HEMATOLOGY/[place] [address] Oncology Nilam So [facility] HEMATOLOGY/[place] [address] 04/15/2022 Office Visit Hematology Ángel Kimbrough Oncology MD [facility] ONCOLOGY [place], [place] 0[address] (Wo rk) 04/15/2022 Infusion Hematology and Oncology 04/15/2022 Office Visit Hematology and Jazzy Armendariz R D [facility]AR HEMATOLOGY AND ONCOLOGY [place], [place] 0375 (Wo rk) 09/05/2022 Scheduled View Only Obstetrics and Nurse, Julian COLEMAN, tester equipment 09/05/2022 Office Visit Obstetrics and Shazia Whitley APRN Gynecology [facility] UROGYNECOLOGY [place], [place] 0[address] (Wo rk) documented as of this encounter Visit Diagnoses Not on filedocumented in this encounter Care Teams Labor/Excavator Relationship Specialty Start Date End Date Berkley Madrigal MD PCP - General 04/13/10 02/15/18 AYLEEN Katarina [address] [place] [address] documented as of this encounter
--- OUTSIDE RECORDS SUMMARY | 2022-03-25 01:32 | XMS_ITS | Encounter Summary ---
:1950 Author Organization [facility] [place] [address] Care Team Providers Name Role Phone Berkley Madrigal MD Primary Care Provider Encounter Details Date Type Department Care Team Description 12/12/2011 Hospital Encounter Laboratory CLINIC, DR ALEXANDER [facility] Alan Livingston MD [facility] HEMATOLOGY/[place] [address] [place] [address] Social History Tobacco Use Types Packs/Day [...] by mouth 0 10/08/2012 mg capsule daily. [place]-3 Fatty Acids (FISH Take 500 mg by [...] Fischer MD [facility] [place] [address] Oncology Alyssa Joseph [address] MEDICAL ONCOLOGY [place], [place] [address] 03/25/2022 Infusion Hematology and Oncology 03/31/2022 Office Visit Hematology and Alan Livingston M D [facility] HEMATOLOGY/[place] [address] Oncology Nilam So [facility] HEMATOLOGY/[place] [address] 04/15/2022 Office Visit Hematology Ángel Kimbrough Oncology [facility] ONCOLOGY [place], [place] 0375 (Wo rk) 04/15/2022 Infusion Hematology and Oncology 04/15/2022 Office Visit Hematology and Jazzy Armendariz R D Oncology [facility] CESAR HEMATOLOGY AND ONCOLOGY [place], [place] 0[address] (Wo rk) 09/05/2022 Scheduled View Only Obstetrics and NurseJulian II, RN Gynecology 09/05/2022 Office Visit Obstetrics and Shazia Whitley CERTIFIED TUMOR REGISTRAR Gynecology [facility] UROGYNECOLOGY [place], [place] [address] (Wo rk) documented as of this encounter Visit Diagnoses Not on filedocumented in this encounter Care Teams Hiv/Aids Care Nurse Relationship Specialty Start Date End Date Berkley Madrigal MD PCP - General 04/13/10 02/15/18 AYLEEN D [address] [place], [place] [id number] documented as of this encounter
--- OUTSIDE RECORDS SUMMARY | 2022-03-25 01:32 | XMS_ITS | Encounter Summary ---
:1950 Author Organization [facility] [place] [address] Care Team Providers Name Role Phone Berkley Madrigal MD Primary Care Provider Reason for Visit Reason Comments Follow-up Encounter Details Date Type Department Care Team Description 09/12/2011 Follow-Up Hematology and Alan Livingston M D CLL (chronic lymphocytic leukemia) (Prim alyson Dx); Oncology at [facility] Chronic lymphoid leukemia (w ithout mention of remission) [facility] DR Perkins HEMATOLOGY/[place] [address] DEPT. [phone] [place], [place] [address] (Wo rk) Social History Tobacco [...] Informed Consent to Participate in Clinical Trial [id number]: Lipoprotein Lipase Expression in Chronic Lymphocytic Leukemia Carol Keller, with her son, was seen in Hematology-Oncology clinic on 09/12/2011. Carol was offered the opportunity to participate in study [id number]: Lipoprotein Lipase Expression in Chronic Lymphocytic Leukemia [...] this protocol and consented for treatment on J86354: LipoproteinLipase Expression in Chronic Lymphocytic Leukemia. Consent [...] Fischer MD [facility] [place] [address] Oncology Alyssa Joseph APRN [address] [place] [address] DR [place] [address] 03/25/2022 Infusion Hematology and Oncology 03/31/2022 Office Visit Hematology and Alan Livingston M D [facility] HEMATOLOGY/[place] [address] Oncology Nilam So APRN [facility] HEMATOLOGY/[place] [address] 04/15/2022 Office Visit Hematology and Ángel Fischer Oncology [facility] ONCOLOGY [place], [place] 0[address] (Wo rk) 04/15/2022 Infusion Hematology and Oncology 04/15/2022 Office Visit Hematology and Jazzy Armendariz R D Oncology [facility] CESAR HEMATOLOGY AND ONCOLOGY [place], [place] 0[address] (Wo rk) 09/05/2022 Scheduled View Only Obstetrics and NurseJulian II, RN Gynecology 09/05/2022 Office Visit Obstetrics and Shazia Whitley APRN Gynecology [facility] UROGYNECOLOGY [place], [place] [address] (Wo rk) Scheduled Orders Name Type Priority Associated Diagnoses Order S chedule Miscellaneous Lab request Lab Routine CLL (chronic ly mphocytic Expected: 09/12/2011 leukemia) (Approximate), Expires: 2011 documented as of this encounter Results (ABNORMAL) Lactate Dehydrogenase (12/12/2011 2:39 PM EDT) athologist Signature LDH 229 (H) 110 - 220 CERNER unit/L [facility] Specimen Anatomical Collection Method Collection Time Receive d Time (Source) Location / / Volume Laterality Blood specimen 12/12/2011 2:39 PM 012 2:43 (specimen) EDT PM EDT Resulting Agency Comment Spec In Lab Alan Livingston MD CHEMISTRY ORDERABLES Performing Organization Address City/State/ZIP Code Phon e Number M[place] [id number] CERNER MILLENNIUM Comprehensive metabolic panel (non-fasting) (12/12/2011 2:39 PM EDT) athologist Signature Glucose Lvl 98 60 - 199 CERNER mg/dL MILLENNIUM Comment: Diabetes: >=200 mg/dL plus symp toms BUN 14 8 - 18 mg/dL CERNER MILLENNIUM Creatinine 0.77 0.70 - 1.20 mg/dL CERNER MILL ENNIUM Comment: Please note that the pediatric reference intervals supplied above were not validated at [facility]. Results from pediatri c patients should be [...] MIRZA ENNIUM Estimated GFR >60 >=60 YANELIS Kellogg Comment: The National Kidney Disease Education Pr [...] Address City/State/ZIP Code [place] [address] CERNER MILLENNIUM (ABNORMAL) CBC [...] Platelets 164 145 - 370 x10(3)/mcL CERNER [place] LLENNIUM RDWSD 44.8 35.0 - 46.0 fL [...] Livingston MD HEMATOLOGY ORDERABLES Performing Organization Address City/[facility]/ZIP Code [place] [address] CERNER MILLENNIUM documented in [...] site documented in this encounter Care Teams Apron Trimmer Relationship Specialty Start Date End Date Berkley Madrigal MD PCP - General 04/13/10 02/15/18 AYLEEN Bray [address] [place] [address] documented as of this encounter
--- OUTSIDE RECORDS SUMMARY | 2022-03-25 01:32 | XMS_ITS | Encounter Summary ---
:1950 Author Organization [facility] Address [facility] [place] [address] Care Team Providers Name Role Phone Berkley Madrigal MD Primary Care Provider Reason for Visit Reason Comments Post Op patient presents for postop erative evaluation after treatment of retinal tear Eye Problem shared pt with dr. sosa Encounter Details Date Type Department Care Team Description 09/07/2012 Follow-Up Ophthalmology at [facility] [place] retinal tear, righ t eye-stable status post treatment. (Primary Dx); [facility] MD Tori macular pucker right eye. Mild only. Fo llow closely.; Drive [facility] CLL (chronic lymphocytic leukemia)-no op hthalmic manifestations; [place] [address] OPHTHALMOLOGY DEPT. Diabetes mellitus without ophthalmic man ifestations. [phone] [place], [place] [address] (Wo rk) Social History [...] 2:50 PM EDT September 09, 2012 Wally Sosa O.D. [facility] [address] [place] [address] RE: Carol Keller A#: [id number] Sosa: I had the pleasure [...] Fischer MD [facility] [place] [address] Oncology Alyssa Joseph[address] [place] [address] 03/25/2022 Infusion Hematology and Oncology 03/31/2022 Office Visit Hematology and Alan Livingston M D [facility] HEMATOLOGY/[place] [address] Oncology Nilam So, HUMAN RESOURCE STATISTICIAN [facility] HEMATOLOGY/[place]COL[place] [address] 04/15/2022 Office Visit Hematology and Ángel Fischer, Oncology [facility] ONCOLOGY [place], [place] 0[address] (Wo rk) 04/15/2022 Infusion Hematology and Oncology 04/15/2022 Office Visit Hematology and Jazzy Armendariz R D Oncology [facility] DRIVE HEMATOLOGY AND ONCOLOGY [place], [place] 0[address] (Wo rk) 09/05/2022 Scheduled View Only Obstetrics and Nurse, Julian COLEMAN, marketing financial analyst 09/05/2022 Office Visit Obstetrics and Shazia Whitley, HUMAN RESOURCE STATISTICIAN Gynecology [facility] UROGYNECOLOGY [place], [place] [address] (Wo rk) documented as [...] site documented in this encounter Care Teams Preschool Teacher Aide Relationship Specialty Start Date End Date Berkley Madrigal MD PCP - General 04/13/10 02/15/18 AYLEEN Katarina [address] [place] [address] documented as of this encounter
--- OUTSIDE RECORDS SUMMARY | 2022-03-25 01:32 | XMS_ITS | Encounter Summary ---
:1950 Author Organization [facility] [place] [address] Care Team Providers Name Role Phone Berkley Madrigal MD Primary Care Provider Encounter Details Date Type Department Care Team Description 05/24/2010 Hospital Encounter Laboratory Alan Livingston MD [facility] [place] [address] HEMATOLOGY/ONCOLOGY [phone] DEPT. [place], [place] [address] (Wo rk) Social History [...] [facility] [place] [address] Oncology Alyssa Joseph, LOTTERIES AGENT [address] [place] [address] [place] [address] 03/25/2022 Infusion Hematology and Oncology 03/31/2022 Office Visit Hematology and Alan Livingston M D [facility] DR HEMATOLOGY/[place] [address] Oncology Nilam So, LOTTERIES AGENT [facility] HEMATOLOGY/[place] [address] 04/15/2022 Office Visit Hematology and Ángel Fischer, Oncology [facility] ONCOLOGY [place], [place] [address] (Wo rk) 04/15/2022 Infusion Hematology and Oncology 04/15/2022 Office Visit Hematology and Jazzy Armendariz R D Oncology [facility] DRIVE HEMATOLOGY AND ONCOLOGY [place], [place] 0[address] (Wo rk) 09/05/2022 Scheduled View Only Obstetrics and NurseJulian II, concrete layer 09/05/2022 Office Visit Obstetrics and Shazia Whitley APRN Gynecology [facility] UROGYNECOLOGY [place], [place] [address] (Wo rk) documented as of this encounter Visit Diagnoses Not on filedocumented in this encounter Care Teams Public Health Training Assistant Relationship Specialty Start Date End Date Berkley Madrigal MD PCP - General 04/13/10 02/15/18 AYLEEN Bray [address] [place] [address] documented as of this encounter
--- OUTSIDE RECORDS SUMMARY | 2022-03-25 01:32 | XMS_ITS | Encounter Summary ---
:1950 Author Organization [facility] [place] [address] Care Team Providers Name Role Phone Berkley Madrigal MD Primary Care Provider Encounter Details Date Type Department Care Team Description 09/12/2011 Hospital Encounter Laboratory CLINIC, DR ALEXANDER Chronic lymphoid leukemia; [facility] Alan Livingston MD [facility] HEMATOLOGY/[place] [address] CLL (chronic lymphocytic leukemia) [place] [id number] Social History Tobacco Use Types Packs/Day Years [...] by mouth 0 10/08/2012 mg capsule daily. [place]-3 Fatty Acids (FISH Take 500 mg by [...] [facility] [place] [address] Oncology Alyssa Joseph[address] [place] [address] 03/25/2022 Infusion Hematology and Oncology 03/31/2022 Office Visit Hematology and Alan Livingston M D [facility] HEMATOLOGY/[place] [address] Oncology Nilam So [facility] HEMATOLOGY/[place] [address] 04/15/2022 Office Visit Hematology and Ángel Fischer Oncology [facility] ONCOLOGY [place], [place] 0[address] (Wo rk) 04/15/2022 Infusion Hematology and Oncology 04/15/2022 Office Visit Hematology and Jazzy Armendariz R D Oncology [facility] CESAR HEMATOLOGY AND ONCOLOGY [place], [place] 0[address] (Wo rk) 09/05/2022 Scheduled View Only Obstetrics and NurseJulian II gymnastic teacher 09/05/2022 Office Visit Obstetrics and Shazia Whitley [facility] Gynecology [facility] UROGYNECOLOGY [place], [place] 0[address] (Wo rk) Scheduled Orders [...] (ABNORMAL) DIFFERENTIAL, MANUAL (09/12/2011 12:43 PM EDT) Patholo gist Method Time Signature [...] Organization Address City/State/ZIP [place] [address] CERNER MILLENNIUM NUCLEATED RED BLOOD CELLS (09/12/2011 12:43 PM EDT) P athologist Signature nRBC % [...] Address City/State/ZIP Code [place] [address] CERNER MILLENNIUM Comprehensive metabolic [...] Organization Address City/State/ZIP [place] [address] CERNER MILLENNIUM (ABNORMAL) CBC (with Diff) (09/12/2011 12:43 PM EDT) P athologist Signature WBC 69.3 4.0 - 10.0 CERNER (Critical) x10(3)/mcL MILLENNIUM Comment: This result has been called to abel chamorro odspkimi by DOROTEO BARRAGAN on 09.12.11 at 13:16, [...] Platelets 177 145 - 370 x10(3)/mcL CERNER [place] LLENNIUM RDWSD 44.1 35.0 - 46.0 fL [...] Address City/State/ZIP Code [place] [address] CERNER MILLENNIUM documented in this encounter Visit Diagnoses Diagnosis Chronic lymphoid leukemia, without menti on of having achieved remission(204.10) Chronic lymphoid leukemia, without menti on of having achieved remission CLL (chronic lymphocytic leukemia) Chronic lymphoid leukemia, without menti on of having achieved remission Colon cancer metastasized to liver Malignant neoplasm of colon, unspecified site documented in this encounter Care Teams Meat Stuffer Relationship Specialty Start Date End Date Berkley Madrigal MD PCP - General 04/13/10 02/15/18 AYLEEN Bray [address] [place] [address] documented as of this encounter
--- OUTSIDE RECORDS SUMMARY | 2022-03-25 01:32 | XMS_ITS | Encounter Summary ---
:1950 Author Organization [facility] Address [facility] [place] [address] Care Team Providers Name Role Phone Berkley Madrigal MD Primary Care Provider Encounter Details Date Type Department Care Team Description 06/11/2012 Hospital Encounter Laboratory CLINIC, CONV Chronic lymphoid [facility] Alan Livingston MD [facility] HEMATOLOGY/[place] [address] leukemia (without Drive mention of [place], [place] remission) [id number] Social History Tobacco Use [...] by mouth 0 10/08/2012 mg capsule daily. [place]-3 Fatty Acids (FISH Take 500 mg by [...] Ángel Fischer MD [facility] [place] [address] Oncology Alyssa Joseph [address] [place] [address] 03/25/2022 Infusion Hematology and Oncology 03/31/2022 Office Visit Hematology and Alan Livingston M D [facility] HEMATOLOGY/[place] [address] Oncology Nilam So [facility] HEMATOLOGY/[place] [address] 04/15/2022 Office Visit Hematology Ángel Kimbrough Oncology [facility] ONCOLOGY [place], [place] 0[address] (Wo rk) 04/15/2022 Infusion Hematology and Oncology 04/15/2022 Office Visit Hematology and Jazzy Armendariz R D Oncology [facility] CESAR HEMATOLOGY AND ONCOLOGY [place], [place] 0[address] (Wo rk) 09/05/2022 Scheduled View Only Obstetrics and NurseJulian II, RN Gynecology 09/05/2022 Office Visit Obstetrics and Shazia Whitley DEPARTMENTAL SHIPPING CLERK Gynecology [facility] UROGYNECOLOGY [place], [place] 0[address] (Wo rk) documented as of [...] (ABNORMAL) Differential, Manual (06/11/2012 12:12 PM EST) [facility] Method Time Signature Neutrophil % 14 (L) [...] City/State/ZIP Code Phon e Number [place] [id number]OS[address] LAB[address]ORY [address] CERNER MILLENNIUM Nucleated Red [...] Organization Address City/State/ZIP Code Phon e Number [address] CERNER MILLENNIUM (ABNORMAL) Immunoglobulins, [...] Livingston MD CHEMISTRY ORDERABLES Performing Organization Address City/[facility]/ZIP Code Phon e Number [address] CERNER MILLENNIUM (ABNORMAL) Lactate [...] Organization Address City/State/ZIP [place] [address] CERNER MILLENNIUM (ABNORMAL) Comprehensive metabolic panel (non-fasting) (06/11/2012 12:12 PM EST) P athologist Signature Glucose Lvl 102 60 - 199 CERNER mg/dL MILLENNIUM Comment: Diabetes: >=200 mg/dL plus symp toms BUN 23 (H) 8 - 18 mg/dL CERNER MILLENNIUM Creatinine 0.83 0.70 - 1.20 mg/dL CERNER MILL ENNIUM Comment: Please note that the pediatric reference intervals supplied above were not validated at [facility]. Results from pediatri c patients should be [...] Calcium 9.4 8.5 - 10.5 mg/dL CERNER AJVI NIUM Total Protein 6.7 6.4 - 8.3 [...] disease. References: http://nkdep.nih.gov/resources/NKDEP_Sug gestn4Labs_0606_508.pdf http://www.kidney.org/professionals/kls/ pdf/faq_gfr.pdf Jeromy Campos, Lesvia NA, Hailey AK, Veto TS, Shanta [...] Organization Address City/State/[place] [address] [facility] (ABNORMAL) CBC (with Diff) (06/11/2012 12:12 PM [...] - 32.2 pg CERNER MILLENNI UM MCHC 32.9 32.0 - 36.5 gm/dL CERNER MILLE NNIUM Platelets 203 145 - 370 x10(3)/mcL CERNER [place] LLENNIUM RDWSD 47.2 (H) 35.0 - 46.0 fL CERNER MILLENNI [...] Organization Address City/State/ZIP [place] [address] [facility] DHIR[facility] documented in this encounter Visit Diagnoses Diagnosis Chronic lymphoid leukemia (without menti on of remission) Chronic lymphoid leukemia, without menti on of having achieved remission Colon cancer metastasized to liver Malignant neoplasm of colon, unspecified site documented in this encounter Care Teams Machine Shop Inspector Relationship Specialty Start Date End Date Berkley Madrigal MD PCP - General 04/13/10 02/15/18 AYLEEN D [address] [place] [address] documented as of this encounter
--- OUTSIDE RECORDS SUMMARY | 2022-03-25 01:32 | XMS_ITS | Encounter Summary ---
:1950 Author Organization [facility] Address [facility] [place] [address] Care Team Providers Name Role Phone Berkley Madrigal MD Primary Care Provider Reason for Visit Reason Comments Follow-up Encounter Details Date Type Department Care Team Description 12/12/2011 Follow-Up Hematology and Alan Livingston M D Chronic lymphoid Oncology at [facility] leukemia (without [facility] DR mention of remission) Drive HEMATOLOGY/ONCOLOGY (Primary Dx) [place] [address] DEPT. [phone] [place], [place] 0[address] (Wo rk) Social History Tobacco [...] to home with Dr. Fischer going to [facility] - however at this time she would [...] Fischer MD [facility] [address] Oncology Alyssa Joseph APRN [address] [place] [address] [place] [address] 03/25/2022 Infusion Hematology and Oncology 03/31/2022 Office Visit Hematology and Alan Livingston M D [facility] DR HEMATOLOGY/[place] [address] Oncology Nilam So APRN [facility] HEMATOLOGY/[place] [address] 04/15/2022 Office Visit Ángel Hill Oncology [facility] ONCOLOGY [place], [place] 0[address] (Wo rk) 04/15/2022 Infusion Hematology and Oncology 04/15/2022 Office Visit Hematology and Jazzy Armendariz R D Oncology [facility] CESAR HEMATOLOGY AND ONCOLOGY [place], [place] 0[address] (Wo rk) 09/05/2022 Scheduled View Only Obstetrics and Nurse, Julian COLEMAN, batch tank controller 09/05/2022 Office Visit Obstetrics and Shazia Whitley APRN Gynecology [facility] UROGYNECOLOGY [place], [place] [address] (Wo rk) documented as of [...] (ABNORMAL) Immunoglobulins, Quantitative (06/11/2012 12:12 PM EST) P athologist Signature IgG 569 (L) 700 - [...] Livingston MD CHEMISTRY ORDERABLES Performing Organization Address City/[facility]/ZIP Code Phon e Number [address] CERNER MILLENNIUM (ABNORMAL) Lactate Dehydrogenase (06/11/2012 12:12 PM EST) P athologist Signature LDH 226 (H) 110 - 220 CERNER unit/L MILLENNIUM Specimen Anatomical Collection Method Collection Time Receive d Time (Source) Location / / Volume Laterality Blood specimen 06/11/2012 12:12 3 (specimen) PM EST 12:20 PM EST Resulting Agency Comment Spec In Lab Alan Livingston MD CHEMISTRY ORDERABLES Performing Organization Address City/[facility] [place] [address] CERNER MILLENNIUM (ABNORMAL) Comprehensive [...] supplied above were not validated at [facility]. Results from pediatri [...] Organization Address City/State/ZIP [place] [address] [facility] (ABNORMAL) CBC (with Diff) (06/11/2012 12:12 [...] Platelets 203 145 - 370 x10(3)/mcL CERNER NC LLENNIUM RDWSD 47.2 (H) 35.0 - 46.0 [...] Address City/State/Z[place] [address] CERNER MILLENNIUM (ABNORMAL) DIFFERENTIAL, AUTOMATED (12/12/2011 2:39 PM EDT) Patholo gist Method Time Signature Neutrophils % 7.4 [...] Organization Address City/State/ZIP [place] [address] CERNER MILLENNIUM NUCLEATED RED [...] Address City/State/ZIP Code Phon e Number MADIHA BOBO[address] CERNER MILLENNIUM SCAN, PERIPHERAL [...] Livingston MD HEMATOLOGY ORDERABLES Performing Organization Address City/[facility]/ZIP Code Phon e Number [address] [facility] (ABNORMAL) Lactate Dehydrogenase (12/12/2011 2:39 PM EDT) P athologist Signature LDH 229 (H) 110 - 220 CERNER unit/L [facility] Specimen Anatomical Collection Method Collection Time Receive d Time (Source) Location / / Volume Laterality Blood specimen 12/12/2011 2:39 PM 012 2:43 (specimen) EDT PM EDT Resulting Agency Comment Spec In Lab Alan Livingston MD CHEMISTRY ORDERABLES Performing Organization Address City/[facility]/ZIP Code Phon e Number [address] [facility] Comprehensive metabolic panel (non-fasting) (12/12/2011 2:39 PM EDT) P athologist Signature Glucose Lvl 98 60 - 199 CERNER mg/dL [facility] Comment: Diabetes: >=200 mg/dL plus symp toms BUN 14 8 - 18 mg/dL CERNER MILLENNIUM Creatinine 0.77 0.70 - 1.20 mg/dL CERNER MILL ENNIUM Comment: Please note that the pediatric reference intervals supplied above were not validated at [facility]. Results from pediatri [...] Address City/State/ZIP [place] [address] CERNER MILLENNIUM (ABNORMAL) CBC [...] UM MCHC 33.9 32.0 - 36.5 gm/dL YANELIS SALINAS NNIUM Platelets 164 145 - 370 x10(3)/mcL YANELIS NC LLENNIUM RDWSD 44.8 35.0 - 46.0 fL YANELIS HEARNI UM RDWCV 13.6 10.9 - 14.4 % YANELIS HEARNIU M MPV 11.7 9.0 - 12.0 fL YANELIS HEARNIU M Specimen Anatomical Collection Method Collection Time Receive d Time (Source) Location / / Volume Laterality Blood specimen 12/12/2011 2:39 PM 012 2:43 (specimen) EDT PM EDT Resulting Agency Comment Spec In Lab Alan Livingston MD HEMATOLOGY ORDERABLES Performing Organization Address City/State/ZIP [place] [address] YANELIS SALCIDO documented in this encounter Visit Diagnoses Diagnosis Chronic lymphoid leukemia (without menti on of remission) - Primary Chronic lymphoid leukemia, without menti on of having achieved remission Colon cancer metastasized to liver Malignant neoplasm of colon, unspecified site documented in this encounter Care Teams Ostomy Rn Relationship Specialty Start Date End Date Berkley Madrigal MD PCP - General 04/13/10 02/15/18 AYLEEN D [address] [place] [address] documented as of this encounter
--- OUTSIDE RECORDS SUMMARY | 2022-03-25 01:32 | XMS_ITS | Encounter Summary ---
:1950 Author Organization [facility] Address [facility] [place] [address] Care Team Providers Name Role Phone Berkley Madrigal MD Primary Care Provider Reason for Visit Reason Comments Eye Problem The patient has been sent fo r consultation regarding a possible tear or detachment. CBC M.DCollin Eye Problem sent by dr. sosa Encounter Details Date Type Department Care Team Description 08/14/2012 Office Visit Ophthalmology at [facility] Pavan Mancera Horseshoe retinal tear, righ t eye (Primary Dx); [facility] MD Tori Macular [place], [place] [address] OPHTHALMOLOGY DE PT. [place], [place] 0[address] (Wo rk) Social History Tobacco [...] EDT August 20, 2012 Wally Sosa O.D. Hand [facility] [address] [place] [address] RE: Carol Keller A#: [id number] Sosa: I had the pleasure [...] 03/25/2022 Office Visit Hematology Ángel Kimbrough MD [facility] [place] [address] Oncology Alyssa Joseph [address] [place] [address] 03/25/2022 Infusion Hematology and Oncology 03/31/2022 Office Visit Hematology and Alan Livingston M D [facility] HEMATOLOGY/[place] [address] Oncology Nilam So APRN [facility] HEMATOLOGY/[place] [address] 04/15/2022 Office Visit Ángel Hill Oncology MD [facility] ONCOLOGY [place], [place] 0375 (Wo rk) 04/15/2022 Infusion Hematology and Oncology 04/15/2022 Office Visit Hematology and Jazzy Armendariz R D Oncology [facility] CESAR HEMATOLOGY AND ONCOLOGY [place], [place] 0[address] (Wo rk) 09/05/2022 Scheduled View Only Obstetrics and Nurse, Julian COLEMAN, chef passenger vessel 09/05/2022 Office Visit Obstetrics and Shazia Whitley APRN Gynecology [facility] UROGYNECOLOGY [place], [place] [address] (Wo rk) documented as of this encounter Procedures Procedure Name Priority Date/Time Associated Diagnosis Comme nts OCT RETINA - OD - Routine 08/19/2012 9:29 PM EDT Macular pucke r, right RIGHT EYE eye documented in this encounter Results OCT [id number] EYE (08/19/2012 9:29 PM EDT) Anatomical Region [...] site documented in this encounter Care Teams Client Development Manager Relationship Specialty Start Date End Date Berkley Madrigal MD PCP - General 04/13/10 02/15/18 AYLEEN Katarina [address] [place] [address] documented as of this encounter
--- OUTSIDE RECORDS SUMMARY | 2022-03-25 01:32 | XMS_ITS | Encounter Summary ---
:1950 Author Organization [facility] [place] [address] Care Team Providers Name Role Phone Berkley Madrigal MD Primary Care Provider Reason for Visit Reason Comments Procedure focal OD for ret tear Encounter Details Date Type Department Care Team Description 08/14/2012 Procedure visit Ophthalmology at [facility] Erlinda, Retinal tear (Primary Dx); [facility] Pavan Valle MD CLL (chronic lymphocytic leukemia); [facility] Diabetes mellitus; [place], [place] DR Romeo wallace, right eye; [phone] [address] DE[address] Horseshoe retinal tear, right eye [phone] [place], [place] 0[address] (Wo rk) Social History Tobacco [...] MD [facility] [place] [address] Oncology Alyssa Joseph[address] [place] [address] 03/25/2022 Infusion Hematology and Oncology 03/31/2022 Office Visit Hematology and Alan Livingston M D [facility] DR HEMATOLOGY/[place] [address] Oncology Nilam So FLOW TRADER [facility] HEMATOLOGY/[place] [address] 04/15/2022 Office Visit Hematology and Ángel Fischer Oncology [facility] ONCOLOGY [place], [place] 0375 (Wo rk) 04/15/2022 Infusion Hematology and Oncology 04/15/2022 Office Visit Hematology and Jazzy Armendariz R D Oncology [facility] DRIVE HEMATOLOGY AND ONCOLOGY [place], [place] 0[address] (Wo rk) 09/05/2022 Scheduled View Only Obstetrics and Nurse, Oboneal COLEMAN, catalyst recovery operator 09/05/2022 Office Visit Obstetrics and Shazia Whitley APRN Gynecology [facility] UROGYNECOLOGY [place], [place] 0[address] (Wo rk) documented as of [...] Horseshoe tear of retina without detachm ent Colon cancer metastasized to liver Malignant neoplasm of colon, unspecified site documented in this encounter Care Teams Manager Performance Relationship Specialty Start Date End Date Berkley Madrigal MD PCP - General 04/13/10 02/15/18 AYLEEN Katarina [address] [place] [address] documented as of this encounter
--- OUTSIDE RECORDS SUMMARY | 2022-03-25 01:32 | XMS_ITS | Encounter Summary ---
:1950 Author Organization [facility] Address [facility] [place] [address] Care Team Providers Name Role Phone Berkley Madrigal MD Primary Care Provider Encounter Details Date Type Department Care Team Description 12/05/2010 Orders Only Hematology and Alan Livingston M D CLL (chronic Oncology at [facility] lymphocytic leukemia) [facility] DR Perkins HEMATOLOGY/[place] [address] Y DEPT. [phone] [place], [place] 0[address] Social History Tobacco Use Types [...] Ángel Fischer MD [facility] [place] [address] Oncology Alyssa Joseph[address] [address] 03/25/2022 Infusion Hematology and Oncology 03/31/2022 Office Visit Hematology and Alan Livingston M D [facility] HEMATOLOGY/[place] [address] Oncology Nilam So [facility] HEMATOLOGY/[place] [address] 04/15/2022 Office Visit Hematology Ángel Kimbrough Oncology MD [facility] DR UMANA [place], [place] 0[address] (Wo rk) 04/15/2022 Infusion Hematology and Oncology 04/15/2022 Office Visit Hematology and Jazzy Armendariz R D [facility] CESAR HEMATOLOGY AND ONCOLOGY [place], [place] 0375 (Wo rk) 09/05/2022 Scheduled View Only Obstetrics and Nurse, Julian COLEMAN, wooling machine operator 09/05/2022 Office Visit Obstetrics and Shazia Whitley APRN Gynecology [facility] UROGYNECOLOGY [place], [place] 0375 (Wo rk) documented as of [...] Comment: The National Kidney Disease Education Pr oggabi (NKDEP) has recommended all laboratories report estimated [...] Organization Address City/State/[place] [address] YANELIS SALCIDO (ABNORMAL) CBC (with Diff) (12/06/2010 8:12 AM EDT) P athologist Signature WBC 43.4 4.0 - 10.0 YANELIS (Critical) x10(3)/mcL [facility] Comment: This result has been called to CALLED IN EV TO by DONALD ERVIN on; 12.06.10 [...] Platelets 173 145 - 370 x10(3)/mcL CERNER IA LLENNIUM RDWSD 43.6 35.0 - 46.0 fL CERNER MILLENNI UM RDWCV 13.4 10.9 - 14.4 % CERNER MILLENNIU M MPV 11.2 9.0 - 12.0 fL CERNER MILLENNIU M Specimen Anatomical Collection Method Collection Time Receive d Time (Source) Location / / Volume Laterality Blood specimen 12/06/2010 8:12 AM 011 8:15 (specimen) EDT AM EDT Alan Livingston MD HEMATOLOGY ORDERABLES Performing Organization Address City/State/ZIP [place] [address] KALEEBANNER OMARI documented in this encounter Visit Diagnoses Diagnosis CLL (chronic lymphocytic leukemia) Chronic lymphoid leukemia, without menti on of having achieved remission Colon cancer metastasized to liver Malignant neoplasm of colon, unspecified site documented in this encounter Care Teams Lumber Hacker Relationship Specialty Start Date End Date Berkley Madrigal MD PCP - General 04/13/10 02/15/18 AYLEEN D [address] [place] [address] documented as of this encounter
--- OUTSIDE RECORDS SUMMARY | 2022-03-25 01:32 | XMS_ITS | Encounter Summary ---
:1950 Author Organization [facility] Address [facility] [place] [address] Care Team Providers Name Role Phone Berkley Madrigal MD Primary Care Provider Encounter Details Date Type Department Care Team Description 06/08/2012 Orders Only Hematology and Sai Cartwright V, [facility] MD lymphocytic leukemia) [facility] (Pr imary Dx) [place] [address] HEMATOLOGY/ONCOLOG [phone] Y DEPT. [place], [place] 0[address] Social History Tobacco Use Types [...] Description 03/25/2022 Office Visit Ángel Hill MD [facility] [place] [address] Oncology Alyssa Joseph[address] [place] [address] 03/25/2022 Infusion Hematology and Oncology 03/31/2022 Office Visit Hematology and Alan Livingston M D [facility] HEMATOLOGY/[place] [address] Oncology Nilam So [facility] HEMATOLOGY/[place] [address] 04/15/2022 Office Visit Ángel Hill Oncology [facility] ONCOLOGY [place], [place] 0375 (Wo rk) 04/15/2022 Infusion Hematology and Oncology 04/15/2022 Office Visit Hematology and Jazzy Armendariz R D [facility] CESAR HEMATOLOGY AND ONCOLOGY [place], [place] 0[address] (Wo rk) 09/05/2022 Scheduled View Only Obstetrics and Nurse, Julian COLEMAN, general engineering teacher 09/05/2022 Office Visit Obstetrics and Shazia Whitley APRN Gynecology [facility] UROGYNECOLOGY [place], [place] [address] (Wo rk) Scheduled Orders Name [...] site documented in this encounter Care Teams Console Manager Relationship Specialty Start Date End Date Berkley Madrigal MD PCP - General 04/13/10 02/15/18 AYLEEN Bray [address] [place] [address] documented as of this encounter
--- OUTSIDE RECORDS SUMMARY | 2022-03-25 01:32 | XMS_ITS | Encounter Summary ---
:1950 Author Organization [facility] [place] [address] Care Team Providers Name Role Phone Berkley Madrigal MD Primary Care Provider Reason for Visit Reason Comments Eye Problem The patient presents for pos toperative evaluation after having treatment for retinal tear in the righ t eye. MARCO ANTONIO Michael Eye Problem shared pt with dr. sosa Encounter Details Date Type Department Care Team Description 08/22/2012 Follow-Up Ophthalmology at [facility] Pavan Mancera Horseshoe retinal tear, righ t eye. Stable status post treatment at 12:00. No new lesions. Follow carefully (Primary Dx); [facility] MD Tori CLL (chronic lymphocytic leukemia); [facility] DR Romeo wallace, [place] [address] OPHTHALMOLOGY DEPT. [phone] [place], [place] 0[address] (Wo rk) Social History Tobacco [...] MD [facility] [place] [address] Oncology Alyssa Joseph, [address] [address] 03/25/2022 Infusion Hematology and Oncology 03/31/2022 Office Visit Hematology and Alan Livingston M D [facility] HEMATOLOGY/[place] [address] Oncology Nilam So, [facility] HEMATOLOGY/[place] [address] 04/15/2022 Office Visit Hematology and Ángel Fischer, Oncology [facility] ONCOLOGY [place], [place] 0[address] (Wo rk) 04/15/2022 Infusion Hematology and Oncology 04/15/2022 Office Visit Hematology and Jazzy Armendariz R D Oncology [facility] CESAR HEMATOLOGY AND ONCOLOGY [place], [place] 0[address] (Wo rk) 09/05/2022 Scheduled View Only Obstetrics and Nurse, Julian COLEMAN, floor polisher 09/05/2022 Office Visit Obstetrics and Shazia Whitley TANGLED YARN SPOOL STRAIGHTENER Gynecology [facility] UROGYNECOLOGY [place], [place] [address] (Wo rk) documented as of [...] site documented in this encounter Care Teams Php Website Developer Relationship Specialty Start Date End Date Berkley Madrigal MD PCP - General 04/13/10 02/15/18 AYLEEN Bray [address] [place] [address] documented as of this encounter
--- OUTSIDE RECORDS SUMMARY | 2022-03-25 01:32 | XMS_ITS | Encounter Summary ---
:1950 Author Organization [facility] [place] [address] Care Team Providers Name Role Phone Berkley Madrigal MD Primary Care Provider Reason for Visit Reason Comments Follow-up Encounter Details Date Type Department Care Team Description 12/06/2010 Hospital Encounter Hematology and Alan Livingston, CLL ( chronic Oncology at [facility] MD [facility] leukemia) [facility] [address] HEMATOLOGY/ONCOL [address] OGY DEPT. [phone] [place] [address] Social History Tobacco Use Types Packs/Day Years [...] noted. Data: White count 43.4, hemoglobin 14, ( all stable) Recent Results (from the past [...] Description 03/25/2022 Office Visit Ángel Hill MD [facility] [place] [address] Oncology Alyssa Joseph[address] [address] 03/25/2022 Infusion Hematology and Oncology 03/31/2022 Office Visit Hematology and Alan Livingston M D [facility] HEMATOLOGY/[place] [address] Oncology Nilam So [facility] HEMATOLOGY/[place] [address] 04/15/2022 Office Visit Ángel Hill Oncology MD [facility] DR [place], [place] [address] (Wo rk) 04/15/2022 Infusion Hematology and Oncology 04/15/2022 Office Visit Hematology and Jazzy Armendariz R D [facility] CESAR HEMATOLOGY AND ONCOLOGY [place], [place] [address] (Wo rk) 09/05/2022 Scheduled View Only Obstetrics and Nurse, Julian COLEMAN, boiler riveter 09/05/2022 Office Visit Obstetrics and Shazia Whitley APRN Gynecology [facility] UROGYNECOLOGY [place] [facility] [address] (Wo rk) Scheduled Orders Name Type [...] (ABNORMAL) REFLEX LAB-A-DIFF (12/06/2010 8:12 AM EDT) [facility] gist Method Time Signature Neutrophils % 9.8 [...] Livingston MD HEMATOLOGY ORDERABLES Performing Organization Address City/[facility]/ZIP Code Phon e Number [address] CERNER MILLENNIUM REFLEX LAB-NUCLEATED [...] City/State/ZIP Code Phon e Number [facility] [place] [address] CERNER MILLENNIUM REFLEX LAB-SCAN, PERIPHERAL BLOOD (12/06/2010 8:12 AM EDT) Patholo gist Method Time Signature Plat Estimate Normal CERNER MILLENNIUM RBC Morphology Abnormal CERNER MILLENNIUM Comment: Corrected from Normal [NA] on 0 12/06/10 09:26:42 EDT by Anni Ervin Cells 6-10 /HPF CERNER MILLENNIUM Smudge Cells Present CERNER MILLENNIUM Specimen Anatomical Collection Method Collection Time Receive d Time (Source) Location / / Volume Laterality Blood specimen 12/06/2010 8:12 AM 011 8:15 (specimen) EDT AM EDT Alan Livingston MD HEMATOLOGY ORDERABLES Performing Organization Address City/State/ZIP Code Phon e Number [address] CERNER MILLENNIUM (ABNORMAL) Comprehensive [...] Organization Address City/State/ZIP Code Phon e Number [place] [id number] HOSPITAL LAB[address]ORY Drive CERNER MILLENNIUM (ABNORMAL) CBC (with Diff) (12/06/2010 8:12 AM EDT) P athologist Signature WBC 43.4 4.0 - 10.0 CERNER (Critical) x10(3)/mcL MILLENNIUM Comment: This result has been called to CALLED ND EV TO by DONALD ERVIN on; 12.06.10 [...] Platelets 173 145 - 370 x10(3)/mcL CERNER ME LLENNIUM RDWSD 43.6 35.0 - 46.0 fL [...] Address City/State/ZIP Code Phon e [place] [address] CERNER MILLENNIUM documented in this encounter Visit Diagnoses Diagnosis CLL (chronic lymphocytic leukemia) Chronic lymphoid leukemia, without menti on of having achieved remission Colon cancer metastasized to liver Malignant neoplasm of colon, unspecified site documented in this encounter Care Teams Vulcanized Fiber Unit Operator Relationship Specialty Start Date End Date Berkley Madrigal MD PCP - General 04/13/10 02/15/18 AYLEEN D [address] [place] [address] documented as of this encounter
[2022-03-25] MEDS: Normal Saline Flush 10 ML SYR IVP (12:08)
[2022-03-25 12:17] LABS: Abs Immature Grans 0.12 10^3/uL (0.0-0.06); Basophils % 0.1; Eosinophils % 0.2; HGB 12.6 g/dL (11.2-15.7); Immature Grans % 0.2; Lymphocytes % 90.8; MCH 26.1 pg (27.0-33.0); MCV 87 fL (80-95); MPV 11.2 fL (8.0-11.0); Neutrophils % 6.7; RBC 4.83 10^6/uL (3.93-5.22); RDW 17.2 % (11.7-14.6); RDW-SD 54.1 fL
[2022-03-25 12:22] LABS: Absolute Basophil Count 0.07 10^3/uL (0.0-0.2); Absolute Eosinophil Count 0.15 10^3/uL (0.0-0.7); Absolute Lymphocyte Count 67.77 10^3/uL (1.2-3.4); Absolute Monocyte Count 1.49 10^3/uL (0.1-0.8)
[2022-03-25 12:40] LABS: Diff Comment Agrees w/ Instrument; Platelet Count 175 10^3/uL (130-400); RBC Morphology Normal
[2022-03-25 12:42] LABS: WBC 74.64 10^3/uL (4.4-10.8)
[2022-03-25 12:48] LABS: ALT 21 U/L (14-59); AST 19 U/L (15-37); Albumin 3.8 g/dL (3.4-5.0); Alkaline Phosphatase 65 U/L (46-116); Anion Gap 5.7 mmol/L (3-11); BUN 16 mg/dL (7-18); Bilirubin, Total 0.5 mg/dL (0.2-1.0); CO2 30.3 mmol/L (21.0-32.0); CREATININE 0.8 mg/dL (0.55-1.02); Calcium 8.9 mg/dL (8.5-10.1); Chloride 108 mmol/L (98-107); Estimated GFR 77.75 (mL/min/1.73m2); FREE T4 0.84 ng/dL (0.76-1.46); Glucose 153 mg/dL (74-106); Potassium 3.8 mmol/L (3.5-5.1); Sodium 144 mmol/L (136-145); TSH 2.75 uIU/mL (0.36-3.74); Total Protein 6.7 g/dL (6.4-8.2)
[2022-03-25 23:15] LABS: CEA 310.5 ng/mL (See Note)
[2022-04-15] MEDS: Normal Saline Flush 10 ML SYR IVP (09:56)
[2022-04-15 10:03] LABS: HCT 43.3 % (36.0-46.0); MCH 26.4 pg (27.0-33.0); MCV 88 fL (80-95); MPV 10.9 fL (8.0-11.0); Platelet Count 159 10^3/uL (130-400); RBC 4.92 10^6/uL (3.93-5.22); RDW 17.2 % (11.7-14.6); RDW-SD 55.1 fL
[2022-04-15 10:10] LABS: Absolute Lymphocyte Count 66.63 10^3/uL (1.2-3.4); Absolute Monocyte Count 3.03 10^3/uL (0.1-0.8); Absolute Neutrophil Count 6.06 10^3/uL (1.2-6.7); Atypical Lymphocytes % 1; Diff Comment Manual Differential; RBC Morphology Normal
[2022-04-15 10:23] LABS: WBC 75.72 10^3/uL (4.4-10.8)
[2022-04-15 10:32] LABS: ALT 24 U/L (14-59); AST 18 U/L (15-37); Albumin 3.8 g/dL (3.4-5.0); Alkaline Phosphatase 61 U/L (46-116); Anion Gap 6.6 mmol/L (3-11); BUN 18 mg/dL (7-18); Bilirubin, Total 0.5 mg/dL (0.2-1.0); CO2 30.4 mmol/L (21.0-32.0); CREATININE 0.9 mg/dL (0.55-1.02); Calcium 8.9 mg/dL (8.5-10.1); Chloride 104 mmol/L (98-107); FREE T4 0.82 ng/dL (0.76-1.46); Glucose 92 mg/dL (74-106); Potassium 4.2 mmol/L (3.5-5.1); Sodium 141 mmol/L (136-145); TSH 3.64 uIU/mL (0.36-3.74); Total Protein 6.7 g/dL (6.4-8.2)
[2022-04-15 13:35] LABS: Ferritin 32 ng/mL (8-252)
[2022-04-15 23:10] LABS: CEA 102.4 ng/mL (See Note)
== END 2022-04-20 23:59 | disposition home or self-care (01) ==
LOC: INF 00:56
PROVIDERS: PCP Neuromusculoskeletal Medicine & OMM; Visit Provider Internal Medicine Hematology & Oncology
DX: C18.2 Malignant neoplasm of ascending colon (principal); Z79.899 Other long term (current) drug therapy; Z45.2 Encounter for adjustment and management of vascular access device; C78.7 Secondary malignant neoplasm of liver and intrahepatic bile duct; D50.8 Other iron deficiency anemias
CPT/HCPCS: 36591; 80053; 82378; 82728; 84439; 84443; 85025

== ENCOUNTER 2022-05-06 00:54 | Outpatient (RCR) | payer MEDICARE, SELFPAY ==
[2022-05-06] MEDS: Normal Saline Flush 10 ML SYR IVP (07:37)
[2022-05-06 08:18] LABS: HGB 13.4 g/dL (11.2-15.7); MCH 27.1 pg (27.0-33.0); MCHC 30.5 % (32.0-36.0); MCV 89 fL (80-95); MPV 12.7 fL (8.0-11.0); Platelet Count 138 10^3/uL (130-400); RBC 4.95 10^6/uL (3.93-5.22); RDW 16.4 % (11.7-14.6); RDW-SD 53.1 fL
[2022-05-06 08:48] LABS: ALT 23 U/L (14-59); AST 23 U/L (15-37); Albumin 3.7 g/dL (3.4-5.0); Alkaline Phosphatase 64 U/L (46-116); Anion Gap 6.5 mmol/L (3-11); BUN 22 mg/dL (7-18); Bilirubin, Total 0.4 mg/dL (0.2-1.0); CO2 29.5 mmol/L (21.0-32.0); CREATININE 0.9 mg/dL (0.55-1.02); Calcium 8.9 mg/dL (8.5-10.1); Chloride 106 mmol/L (98-107); FREE T4 0.83 ng/dL (0.76-1.46); Glucose 125 mg/dL (74-106); Potassium 3.6 mmol/L (3.5-5.1); Sodium 142 mmol/L (136-145); TSH 5.33 uIU/mL (0.36-3.74); Total Protein 6.5 g/dL (6.4-8.2)
[2022-05-06 08:57] LABS: WBC 70.98 10^3/uL (4.4-10.8)
[2022-05-06 08:58] LABS: Absolute Lymphocyte Count 67.43 10^3/uL (1.2-3.4); Absolute Neutrophil Count 3.55 10^3/uL (1.2-6.7); Atypical Lymphocytes % 0; Bands % 0; Diff Comment Manual Differential; RBC Morphology Normal
[2022-05-06 21:41] LABS: CEA 35.1 ng/mL (See Note)
== END 2022-05-21 23:59 | disposition home or self-care (01) ==
LOC: INF 00:54
PROVIDERS: PCP Neuromusculoskeletal Medicine & OMM; Visit Provider Internal Medicine Hematology & Oncology
DX: C18.2 Malignant neoplasm of ascending colon (principal); C78.7 Secondary malignant neoplasm of liver and intrahepatic bile duct; Z45.2 Encounter for adjustment and management of vascular access device
CPT/HCPCS: 36591; 80053; 82378; 84439; 84443; 85025

== ENCOUNTER 2022-06-17 00:54 | Outpatient (RCR) | payer MEDICARE, SELFPAY ==
[2022-05-27] MEDS: Normal Saline Flush 10 ML SYR IVP (09:07)
[2022-05-27 09:52] LABS: Abs Immature Grans 0.14 10^3/uL (0.0-0.06); Absolute Eosinophil Count 0.17 10^3/uL (0.0-0.7); Basophils % 0.1; Eosinophils % 0.2; HCT 44.1 % (36.0-46.0); HGB 13.7 g/dL (11.2-15.7); Immature Grans % 0.2; Lymphocytes % 94.2; MCH 27.4 pg (27.0-33.0); MCHC 31.1 % (32.0-36.0); MCV 88 fL (80-95); MPV 11.3 fL (8.0-11.0); Monocytes % 0.8; Neutrophils % 4.5; Platelet Count 175 10^3/uL (130-400); RDW 16.4 % (11.7-14.6); RDW-SD 52.9 fL
[2022-05-27 09:54] LABS: Absolute Basophil Count 0.08 10^3/uL (0.0-0.2); Absolute Monocyte Count 0.66 10^3/uL (0.1-0.8); Absolute Neutrophil Count 3.74 10^3/uL (1.2-6.7)
[2022-05-27 10:14] LABS: Diff Comment Agrees w/ Instrument; RBC Morphology Normal
[2022-05-27 10:20] LABS: ALT 25 U/L (14-59); AST 22 U/L (15-37); Albumin 3.8 g/dL (3.4-5.0); Alkaline Phosphatase 67 U/L (46-116); Anion Gap 7.5 mmol/L (3-11); BUN 18 mg/dL (7-18); Bilirubin, Total 0.6 mg/dL (0.2-1.0); CO2 29.5 mmol/L (21.0-32.0); Calcium 8.9 mg/dL (8.5-10.1); Chloride 106 mmol/L (98-107); Estimated GFR 59.49 (mL/min/1.73m2); FREE T4 0.85 ng/dL (0.76-1.46); Glucose 113 mg/dL (74-106); Sodium 143 mmol/L (136-145); TSH 3.58 uIU/mL (0.36-3.74); Total Protein 6.6 g/dL (6.4-8.2); WBC 83.12 10^3/uL (4.4-10.8)
[2022-05-27 20:57] LABS: CEA 12.6 ng/mL (See Note)
[2022-06-17] MEDS: Normal Saline Flush 10 ML SYR IVP (10:45)
[2022-06-17 10:55] LABS: HCT 43.9 % (36.0-46.0); HGB 13.7 g/dL (11.2-15.7); MCH 28.3 pg (27.0-33.0); MCHC 31.2 % (32.0-36.0); MCV 91 fL (80-95); MPV 11.8 fL (8.0-11.0); Platelet Count 144 10^3/uL (130-400); RBC 4.84 10^6/uL (3.93-5.22); RDW 16.1 % (11.7-14.6); RDW-SD 53.1 fL
[2022-06-17 11:05] LABS: ALT 23 U/L (14-59); AST 20 U/L (15-37); Albumin 3.9 g/dL (3.4-5.0); Alkaline Phosphatase 69 U/L (46-116); Anion Gap 5.4 mmol/L (3-11); BUN 19 mg/dL (7-18); Bilirubin, Total 0.6 mg/dL (0.2-1.0); CO2 30.6 mmol/L (21.0-32.0); Chloride 106 mmol/L (98-107); Estimated GFR 59.49 (mL/min/1.73m2); Glucose 102 mg/dL (74-106); Potassium 4.2 mmol/L (3.5-5.1); Sodium 142 mmol/L (136-145); TSH 4.14 uIU/mL (0.36-3.74); Total Protein 6.7 g/dL (6.4-8.2)
[2022-06-17 11:21] LABS: Absolute Basophil Count 0.81 10^3/uL (0.0-0.2); Absolute Eosinophil Count 0.81 10^3/uL (0.0-0.7); Absolute Lymphocyte Count 72.69 10^3/uL (1.2-3.4); Absolute Neutrophil Count 6.46 10^3/uL (1.2-6.7)
[2022-06-17 11:22] LABS: Diff Comment Manual Differential; RBC Morphology Normal
[2022-06-17 11:28] LABS: WBC 80.77 10^3/uL (4.4-10.8)
[2022-06-20 08:54] LABS: CEA 6.3 ng/mL (See Note)
== END 2022-06-21 23:59 | disposition home or self-care (01) ==
LOC: INF 00:54
PROVIDERS: PCP Neuromusculoskeletal Medicine & OMM; Visit Provider Internal Medicine Hematology & Oncology
DX: C18.9 Malignant neoplasm of colon, unspecified (principal); Z79.899 Other long term (current) drug therapy; Z45.2 Encounter for adjustment and management of vascular access device
CPT/HCPCS: 36591; 80053; 82378; 84439; 84443; 85025

== ENCOUNTER 2022-07-08 00:21 | Outpatient (RCR) | payer MEDICARE, SELFPAY ==
--- OUTSIDE RECORDS SUMMARY | 2022-07-08 00:23 | XMS_ITS ---
Author Name Rachana Gates Address [address] [place], [place] [id number] Organization [facility] Address [address], [place] [id number] Care Team Providers Care Career Center Advisor Name Role Phone Rachana Gates Unavailable [phone] PROBLEMS Type Condition ICD9-CM Code [id number] Code Onset Dates Condition Status SNOMED Code Problem Iron deficiency anemia, unspecified iron deficiency anemia type D50.9 Active [id number] ALLERGIES Substance Reaction Event Type Date Status Lipitor Unknown Drug Allergy Nov, Active Metformin Unknown Drug Allergy Nov, Active Penicillins Unknown Drug Allergy Nov, Active ENCOUNTERS Encounter Location Date Diagnosis Gastroenterology [address] [place] [address] [address] [place] [address] [id number] Dec, G[facility] [address] [place] [address] [address] [place] [address] [id number] Nov, [facility] [address] [place] [address] [address] [place] [address] [id number] Nov, [facility] [address] [place] [address] [address] [place] [address] [id number] Nov, Iron deficiency anemia, unspecified iron deficiency anemia type D50.9 ; Pyrosis R12 and Unintentional weight loss R63.[address] [place] [address] [address] [place] [address] [id number] Nov, Iron deficiency anemia, unspecified iron deficiency anemia type D50.9 ; Pyrosis R12 ; LUQ pain R10.12 and Unintentional weight loss R63.4 [facility] [address] [facility] ad [address] [place] [address] [id number] Jul, Chronic diarrhea K52.9 ; Lower abdominal pain R10.30 and Pyrosis R12 [facility] [address] [facility] ad [address] [place] [address] [id number] Jul, [facility] [address] [facility] ad [address] [place] [address] [id number] Jul, Chronic diarrhea K52.9 and Lower abdominal pain R10.30 [facility] [address] [facility] ad [address] [place] [address] [id number] May, IMMUNIZATIONS No Known Immunizations SOCIAL HISTORY Never Assessed REASON FOR REFERRAL FUNCTIONAL STATUS PLAN OF CARE Activity Details VITAL SIGNS Height 5ft 4.5in in 2021-12-01 Height 5ft 4.5in in 2021-08-17 Height 5ft 4.5in in 2021-08-03 Weight 163 lbs 2021-12-01 Weight 165 lbs 2021-08-17 Weight 164.2 lbs 2021-08-03 Temperature 96.7 degrees Fahrenheit Temperature 96.4 degrees Fahrenheit Temperature 96.5 degrees Fahrenheit Heart Rate 64 /min 2021-12-01 Heart Rate 63 /min 2021-08-17 Heart Rate 84 /min 2021-08-03 Oximetry 98 2021-12-01 Oximetry 97 2021-08-17 Oximetry 98 2021-08-03 BMI 27.54 kg/m2 2021-12-01 BMI 27.88 kg/m2 2021-08-17 BMI 27.75 kg/m2 2021-08-03 Blood pressure systolic 138 mm Hg Blood pressure diastolic 80 mm Hg 2021-11 MEDICATIONS Medication Instructions Dosage Frequency Start Date End Date Duration Status Vitamin D3 50 MCG (1999) Orally Once a day 1 capsule 24h 30 day(s) Active Contour Next Test - as directed Active Glucosamine 500 MG Orally Three times a day 1 capsule with a meal 8h 30 day(s) Active Microlet Lancets Active Eliquis 2.5 MG as directed Active Temazepam 15 MG Orally Once a day 1 capsule at bedtime as needed 24h Active Multi Vitamin - Orally Once a day 1 tablet 24h 30 day(s) Active Pantoprazole Sodium 40 MG Orally Once a day 1 tablet 24h Nov, 30 day(s) Active Magnesium 125 MG as directed Active Pepcid AC 10 MG Orally Twice a day as needed 1 tablet Jul, 90 days Not-Taki ng Omeprazole 20 MG Orally Once a day 1 capsule 30 minutes before morning meal 24h 30 day(s) Not-Taki ng Nystatin 010440 UNIT/GM Externally Twice a day 1 application 12h Not-Taki ng Lomotil 2.5-0.025 MG Orally Four times a day 1 tablet as needed 6h Not-Taki ng Albuterol Sulfate HFA 108 (90 Base) MCG/ACT Inhalation every 4 hrs 1 puff as needed 4h Not-Taki ng Green Tea (Claudette sinensis) 250 MG as directed A ctive Cyclobenzaprine HCl 10 MG Orally Once a day 1 tablet at bedtime as needed 24h 30 day(s) Not-Taki ng PROCEDURES No Known procedures RESULTS Name Result Date Reference Range SEDIMENTATION RATE 2021-08-03 ESR 7 <=30 C-REACTIVE PROTEIN (CRP) 2021-08-03 CRP 12.5 <=10.0 CELIAC DISEASE COMPREHENSIVE ([id number]) 06-24-14 Deamidated Gliadin Abs, IgA 2 0-19 Deamidated Gliadin Abs, IgG 2 0-19 t-Transglutaminase (tTG) IgA <2 0-3 t-Transglutaminase (tTG) IgG <2 0-5 Endomysial Antibody IgA Negative Nega tive Immunoglobulin A, Qn, Serum 44 64-422 FECAL FAT QUAL ([id number]) 2021-08-04 Fats, Neutral Normal Fats, Total Normal CALPROTECTIN, FECAL ([id number]) 2021-08-04 Calprotectin, Fecal 48 0-120 GIARDIA/CRYPTO ANTIGEN 2021-08-04 GIARDIA LAMBLIA AG NEGATIVE NEGATIVE CRYPTO ANTIGEN NEGATIVE NEGATIVE REASON FOR VISIT GI-EGD F/U (EGD is being done at [facility] on December 10), RE:Re:RE:Upper GI Scope, Re:RE:Upper GI Scope-BOOKED F/U, Upper GI Scope, referral provider, GI-f/u iron defiency anemia, GI-2 WK F/U, GI-Diarrhealdisorder. ? 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 Insurance Providers Health Insurance Type Health Plan Insurance Address Health Plan Insurance Phone Health Plan Insurance Name Health Plan Coverage Dates Member ID Patient Relationship to Subscriber Patient Address Patient Phone Patient Name Patient Date of Subscriber ID Subscriber Name Subscriber Date of Group No [facility] [address] [facility] [id number] [facility] self Marthaisabella Stock [id number] MEDICARE [address] [facility] [address] MEDICARE self Marthaisabella Stock [id number] MEDICARE PART A [address] [facility] [address] MEDICARE PART A self Marthaisabella Stock [id number]
[2022-07-08] MEDS: Normal Saline Flush 10 ML SYR IVP (10:00)
[2022-07-08 10:21] LABS: Abs Immature Grans 0.19 10^3/uL (0.0-0.06); HCT 41.9 % (36.0-46.0); HGB 12.9 g/dL (11.2-15.7); MCHC 30.8 % (32.0-36.0); MCV 91 fL (80-95); MPV 10.5 fL (8.0-11.0); Platelet Count 213 10^3/uL (130-400); RDW 14.6 % (11.7-14.6)
[2022-07-08 10:38] LABS: Absolute Lymphocyte Count 75.33 10^3/uL (1.2-3.4); Absolute Monocyte Count 1.66 10^3/uL (0.1-0.8); Absolute Neutrophil Count 5.79 10^3/uL (1.2-6.7); Atypical Lymphocytes % 10; Diff Comment Manual Differential; RBC Morphology Normal
[2022-07-08 10:41] LABS: WBC 82.78 10^3/uL (4.4-10.8)
[2022-07-08 10:50] LABS: ALT 21 U/L (14-59); AST 15 U/L (15-37); Albumin 3.4 g/dL (3.4-5.0); Alkaline Phosphatase 90 U/L (46-116); Anion Gap 7.6 mmol/L (3-11); BUN 14 mg/dL (7-18); Bilirubin, Total 0.5 mg/dL (0.2-1.0); CO2 31.4 mmol/L (21.0-32.0); CREATININE 0.8 mg/dL (0.55-1.02); Calcium 9.3 mg/dL (8.5-10.1); Chloride 104 mmol/L (98-107); Estimated GFR 77.75 (mL/min/1.73m2); FREE T4 0.87 ng/dL (0.76-1.46); Glucose 95 mg/dL (74-106); Sodium 143 mmol/L (136-145); Total Protein 6.7 g/dL (6.4-8.2)
[2022-07-08 20:21] LABS: CEA 3.3 ng/mL (See Note)
== END 2022-07-19 23:59 | disposition home or self-care (01) ==
LOC: INF 00:21
PROVIDERS: PCP Neuromusculoskeletal Medicine & OMM; Visit Provider Internal Medicine Hematology & Oncology
DX: C18.9 Malignant neoplasm of colon, unspecified (principal); Z79.899 Other long term (current) drug therapy
CPT/HCPCS: 36591; 80053; 82378; 84439; 84443; 85025

== ENCOUNTER 2022-08-19 01:23 | Outpatient (RCR) | payer MEDICARE, SELFPAY ==
[2022-07-29] MEDS: Normal Saline Flush 10 ML SYR IVP (10:00)
[2022-07-29 10:20] LABS: Abs Immature Grans 0.22 10^3/uL (0.0-0.06); HCT 42.1 % (36.0-46.0); HGB 13.4 g/dL (11.2-15.7); MCH 29.6 pg (27.0-33.0); MCHC 31.8 % (32.0-36.0); MCV 93 fL (80-95); MPV 11.1 fL (8.0-11.0); Platelet Count 155 10^3/uL (130-400); RBC 4.53 10^6/uL (3.93-5.22); RDW 14.7 % (11.7-14.6); RDW-SD 48.8 fL
[2022-07-29 10:25] LABS: WBC 86.43 10^3/uL (4.4-10.8)
[2022-07-29 10:42] LABS: Absolute Lymphocyte Count 77.79 10^3/uL (1.2-3.4); Absolute Neutrophil Count 6.91 10^3/uL (1.2-6.7); Atypical Lymphocytes % 5
[2022-07-29 10:43] LABS: ALT 21 U/L (14-59); AST 20 U/L (15-37); Absolute Monocyte Count 1.73 10^3/uL (0.1-0.8); Albumin 3.6 g/dL (3.4-5.0); Alkaline Phosphatase 70 U/L (46-116); Anion Gap 9.1 mmol/L (3-11); BUN 17 mg/dL (7-18); Bilirubin, Total 0.6 mg/dL (0.2-1.0); CO2 29.9 mmol/L (21.0-32.0); CREATININE 0.8 mg/dL (0.55-1.02); Calcium 8.8 mg/dL (8.5-10.1); Chloride 106 mmol/L (98-107); Diff Comment Manual Differential; Estimated GFR 77.75 (mL/min/1.73m2); FREE T4 0.82 ng/dL (0.76-1.46); Glucose 93 mg/dL (74-106); Potassium 4.5 mmol/L (3.5-5.1); RBC Morphology Normal; Sodium 145 mmol/L (136-145); TSH 3.01 uIU/mL (0.36-3.74); Total Protein 6.6 g/dL (6.4-8.2)
[2022-07-29 19:20] LABS: CEA 2.7 ng/mL (See Note)
[2022-08-19] MEDS: Normal Saline Flush 10 ML SYR IVP (10:37)
[2022-08-19 11:25] LABS: HCT 44.5 % (36.0-46.0); MCHC 31.5 % (32.0-36.0); MCV 92 fL (80-95); MPV 11.4 fL (8.0-11.0); Platelet Count 168 10^3/uL (130-400); RBC 4.83 10^6/uL (3.93-5.22); RDW 14.3 % (11.7-14.6)
[2022-08-19 11:47] LABS: Absolute Lymphocyte Count 74.01 10^3/uL (1.2-3.4); Absolute Monocyte Count 0.83 10^3/uL (0.1-0.8); Absolute Neutrophil Count 8.32 10^3/uL (1.2-6.7); Diff Comment Manual Differential; RBC Morphology Normal
[2022-08-19 11:54] LABS: WBC 83.16 10^3/uL (4.4-10.8)
[2022-08-19 12:06] LABS: ALT 27 U/L (14-59); AST 20 U/L (15-37); Albumin 3.8 g/dL (3.4-5.0); Alkaline Phosphatase 69 U/L (46-116); Anion Gap 7.3 mmol/L (3-11); BUN 19 mg/dL (7-18); Bilirubin, Total 0.7 mg/dL (0.2-1.0); CO2 28.7 mmol/L (21.0-32.0); CREATININE 0.9 mg/dL (0.55-1.02); Calcium 8.9 mg/dL (8.5-10.1); Chloride 105 mmol/L (98-107); FREE T4 0.78 ng/dL (0.76-1.46); Glucose 89 mg/dL (74-106); Potassium 4.3 mmol/L (3.5-5.1); Sodium 141 mmol/L (136-145); TSH 2.52 uIU/mL (0.36-3.74); Total Protein 6.8 g/dL (6.4-8.2)
[2022-08-19 23:15] LABS: CEA 2.6 ng/mL (See Note)
== END 2022-08-19 23:59 | disposition home or self-care (01) ==
LOC: INF 01:23
PROVIDERS: PCP Neuromusculoskeletal Medicine & OMM; Visit Provider Internal Medicine Hematology & Oncology
DX: C18.2 Malignant neoplasm of ascending colon (principal); C18.9 Malignant neoplasm of colon, unspecified; Z79.899 Other long term (current) drug therapy; Z45.2 Encounter for adjustment and management of vascular access device
CPT/HCPCS: 36591; 80053; 82378; 84439; 84443; 85025

== ENCOUNTER 2022-09-09 01:20 | Outpatient (RCR) | payer MEDICARE, SELFPAY ==
--- OUTSIDE RECORDS SUMMARY | 2022-09-09 01:22 | XMS_ITS ---
Author Name Rachana Gates Address [address] [place], [place] [id number] Organization [facility] Address [address] [place], [place] [id number] Care Team Providers Care Industrial Illuminating Engineer Name Role Phone Rachana Gates Unavailable [phone] PROBLEMS Type Condition ICD9-CM Code [id number] Code Onset Dates Condition Status SNOMED Code Problem Iron deficiency anemia, unspecified iron deficiency anemia type D50.9 Active [id number] ALLERGIES Substance Reaction Event Type Date Status Lipitor Unknown Drug Allergy Nov, Active Metformin Unknown Drug Allergy Nov, Active Penicillins Unknown Drug Allergy Nov, Active ENCOUNTERS Encounter Location Date Diagnosis G[facility] [address] [place] [address] [address] [place] [id number] Dec, [facility] [address] [place] [address] [address] [place] [address] [id number] Nov, [facility] [address] [place] [address] [address] [place] [address] [id number] Nov, [facility] [address] [place] [address] [address] [place] [address] [id number] Nov, Iron deficiency anemia, unspecified iron deficiency anemia type D50.9 ; Pyrosis R12 and Unintentional weight loss R63.[address] [place] [address] [address] [place] [address] [id number] Nov, Iron deficiency anemia, unspecified iron deficiency anemia type D50.9 ; Pyrosis R12 ; LUQ pain R10.12 and Unintentional weight loss R63.4 [facility] [address] [facility] ad [address] [place] [address] [id number] Jul, Chronic diarrhea K52.9 ; Lower abdominal pain R10.30 and Pyrosis R12 [facility] [address] [facility] ad [address] [place] [address] [id number] Jul, [facility] [address] [facility] ad [address] [place] [address] [id number] Jul, Chronic diarrhea K52.9 and Lower abdominal pain R10.30 [facility] [address] [facility] ad [address] [place] [address] [id number] May, IMMUNIZATIONS No Known Immunizations SOCIAL HISTORY [...] meal 24h 30 day(s) Not-Taki ng Nystatin 807437 UNIT/GM Externally Twice a day 1 application [...] 2021-08-03 CRP 12.5 <=10.0 CELIAC DISEASE COMPREHENSIVE ([id number]) 06-24-14 Deamidated Gliadin Abs, IgA 2 0-19 Deamidated Gliadin Abs, IgG 2 0-19 t-Transglutaminase (tTG) IgA <2 0-3 t-Transglutaminase (tTG) IgG <2 0-5 Endomysial Antibody IgA Negative Nega tive Immunoglobulin A, Qn, Serum 44 64-422 FECAL FAT QUAL ([id number]) 2021-08-04 Fats, Neutral Normal Fats, Total Normal CALPROTECTIN, FECAL ([id number]) 2021-08-04 Calprotectin, Fecal 48 0-120 GIARDIA/CRYPTO ANTIGEN 2021-08-04 GIARDIA LAMBLIA AG NEGATIVE NEGATIVE CRYPTO ANTIGEN NEGATIVE NEGATIVE REASON FOR VISIT GI-EGD F/U (EGD is being done at [facility] on December 10), RE:Re:RE:Upper GI Scope, Re:RE:Upper GI Scope-BOOKED F/U, Upper GI Scope, referral provider, GI-f/u iron defiency anemia, GI-2 WK F/U, GI-Diarrhealdisorder. ? 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 Insurance Providers Health Insurance Type Health Plan Insurance Address Health Plan Insurance Phone Health Plan Insurance Name Health Plan Coverage Dates Member ID Patient Relationship to Subscriber Patient Address Patient Phone Patient Name Patient Date of Subscriber ID Subscriber Name Subscriber Date of Group No MEDICARE PART A [address] [place] [address] MEDICARE PART A self Martha Stock [id number] MEDICARE [address] [facility] [place] [address] MEDICARE self Martha chino Stock [id number] [facility] [address] [facility] [id number] [facility] self Martha Arianna [id number]
[2022-09-09] MEDS: Normal Saline Flush 10 ML SYR IVP (10:31)
[2022-09-09 10:41] LABS: HCT 44.2 % (36.0-46.0); MCH 29.4 pg (27.0-33.0); MCHC 31.7 % (32.0-36.0); MCV 93 fL (80-95); MPV 10.9 fL (8.0-11.0); Platelet Count 146 10^3/uL (130-400); RBC 4.77 10^6/uL (3.93-5.22); RDW-SD 47.5 fL
[2022-09-09 11:05] LABS: ALT 27 U/L (14-59); AST 20 U/L (15-37); Albumin 3.7 g/dL (3.4-5.0); Alkaline Phosphatase 66 U/L (46-116); Anion Gap 4.1 mmol/L (3-11); BUN 16 mg/dL (7-18); Bilirubin, Total 0.6 mg/dL (0.2-1.0); CO2 29.9 mmol/L (21.0-32.0); CREATININE 0.9 mg/dL (0.55-1.02); Calcium 8.8 mg/dL (8.5-10.1); Chloride 105 mmol/L (98-107); FREE T4 0.82 ng/dL (0.76-1.46); Glucose 94 mg/dL (74-106); Potassium 4.3 mmol/L (3.5-5.1); Sodium 139 mmol/L (136-145); TSH 4.15 uIU/mL (0.36-3.74); Total Protein 6.7 g/dL (6.4-8.2)
[2022-09-09 11:20] LABS: Absolute Monocyte Count 0.79 10^3/uL (0.1-0.8); Absolute Neutrophil Count 4.77 10^3/uL (1.2-6.7); Diff Comment Manual Differential; RBC Morphology Normal
[2022-09-09 11:22] LABS: Absolute Lymphocyte Count 73.87 10^3/uL (1.2-3.4)
[2022-09-09 15:12] LABS: WBC 79.43 10^3/uL (4.4-10.8)
[2022-09-10 02:22] LABS: CEA 2.3 ng/mL (See Note)
== END 2022-09-18 23:59 | disposition home or self-care (01) ==
LOC: INF 01:20
PROVIDERS: PCP Neuromusculoskeletal Medicine & OMM; Visit Provider Internal Medicine Hematology & Oncology
DX: Z79.899 Other long term (current) drug therapy (principal); C18.9 Malignant neoplasm of colon, unspecified
CPT/HCPCS: 36591; 80053; 82378; 84439; 84443; 85025

== ENCOUNTER 2022-09-30 01:01 | Outpatient (RCR) | payer MEDICARE, SELFPAY ==
--- OUTSIDE RECORDS SUMMARY | 2022-09-30 01:03 | XMS_ITS ---
Author Name Rachana Gates Address [address], [place] [id number] Organization [facility] Address [address], [place] [id number] Care Team Providers Care Retirement Plan Specialist Name Role Phone Rachana Gates Unavailable [phone] PROBLEMS Type Condition ICD9-CM Code ANA69-YD Code Onset Dates Condition Status SNOMED Code Problem Iron deficiency anemia, unspecified iron deficiency anemia type D50.9 Active [id number] ALLERGIES Substance Reaction Event Type Date Status Lipitor Unknown Drug Allergy Nov, Active Metformin Unknown Drug Allergy Nov, Active Penicillins Unknown Drug Allergy Nov, Active ENCOUNTERS Encounter Location Date Diagnosis G[facility] [address] [place] [address] [place] [address] [id number] Dec, [facility] [address] [place] [address] [address] [place] [address] [id number] Nov, [facility] [address] [place] [address] [address] [place] [address] [id number] Nov, [facility] [address] [place] [address] [address] [place] [address] [id number] Nov, Iron deficiency anemia, unspecified iron deficiency anemia type D50.9 ; Pyrosis R12 and Unintentional weight loss R63.[address] [place] [address] [place] [address] [id number] Nov, Iron deficiency anemia, unspecified iron deficiency anemia type D50.9 ; Pyrosis R12 ; LUQ pain R10.12 and Unintentional weight loss R63.4 [facility] [address] [facility] ad [address] [place] [address] [id number] Jul, Chronic diarrhea K52.9 ; Lower abdominal pain R10.30 and Pyrosis R12 [facility] [address] [facility] ad [address] [place] [address] [id number] Jul, [facility] [address] [facility] ad [address] [place] [address] [id number] Jul, Chronic diarrhea K52.9 and Lower abdominal pain R10.30 [facility] [address] [facility] ad [address] [place] [address] [id number] May, IMMUNIZATIONS No Known Immunizations SOCIAL HISTORY [...] meal 24h 30 day(s) Not-Taki ng Nystatin 071207 UNIT/GM Externally Twice a day 1 application [...] 2021-08-03 CRP 12.5 <=10.0 CELIAC DISEASE COMPREHENSIVE ([id number]) 06-24-14 Deamidated Gliadin Abs, IgA 2 0-19 Deamidated Gliadin Abs, IgG 2 0-19 t-Transglutaminase (tTG) IgA <2 0-3 t-Transglutaminase (tTG) IgG <2 0-5 Endomysial Antibody IgA Negative Nega tive Immunoglobulin A, Qn, Serum 44 64-422 FECAL FAT QUAL ([id number]) 2021-08-04 Fats, Neutral Normal Fats, Total Normal CALPROTECTIN, FECAL ([id number]) 2021-08-04 Calprotectin, Fecal 48 0-120 GIARDIA/CRYPTO ANTIGEN 2021-08-04 GIARDIA LAMBLIA AG NEGATIVE NEGATIVE CRYPTO ANTIGEN NEGATIVE NEGATIVE REASON FOR VISIT GI-EGD F/U (EGD is being done at [facility] on December 10), RE:Re:RE:Upper GI Scope, Re:RE:Upper GI Scope-BOOKED F/U, Upper GI Scope, referral provider, GI-f/u iron defiency anemia, GI-2 WK F/U, GI-Diarrhealdisorder. ? 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 Insurance Providers Health Insurance Type Health Plan Insurance Address Health Plan Insurance Phone Health Plan Insurance Name Health Plan Coverage Dates Member ID Patient Relationship to Subscriber Patient Address Patient Phone Patient Name Patient Date of Subscriber ID Subscriber Name Subscriber Date of Group No MEDICARE PART A [address] [place] [address] MEDICARE PART A self Martha Stock [id number] [facility] [address] [facility] [id number] [facility] self Martha Arianna [id number] MEDICARE [address] [facility] [address] MEDICARE self Marthaisabella Stock [id number]
[2022-09-30] MEDS: Normal Saline Flush 10 ML SYR IVP (10:37)
[2022-09-30 10:51] LABS: Abs Immature Grans 0.13 10^3/uL (0.0-0.06); HCT 44.5 % (36.0-46.0); HGB 14.2 g/dL (11.2-15.7); MCH 29.6 pg (27.0-33.0); MCHC 31.9 % (32.0-36.0); MCV 93 fL (80-95); Platelet Count 142 10^3/uL (130-400); RBC 4.79 10^6/uL (3.93-5.22); RDW-SD 47.4 fL
[2022-09-30 11:12] LABS: ALT 25 U/L (14-59); AST 21 U/L (15-37); Albumin 3.8 g/dL (3.4-5.0); Alkaline Phosphatase 66 U/L (46-116); Anion Gap 5.9 mmol/L (3-11); BUN 16 mg/dL (7-18); Bilirubin, Total 0.6 mg/dL (0.2-1.0); CO2 28.1 mmol/L (21.0-32.0); CREATININE 0.9 mg/dL (0.55-1.02); Calcium 8.8 mg/dL (8.5-10.1); Chloride 106 mmol/L (98-107); FREE T4 0.82 ng/dL (0.76-1.46); Glucose 102 mg/dL (74-106); Potassium 4.7 mmol/L (3.5-5.1); Sodium 140 mmol/L (136-145); TSH 3.17 uIU/mL (0.36-3.74); Total Protein 6.7 g/dL (6.4-8.2)
[2022-09-30 11:20] LABS: Absolute Lymphocyte Count 75.09 10^3/uL (1.2-3.4); Absolute Monocyte Count 0.79 10^3/uL (0.1-0.8); Absolute Neutrophil Count 3.16 10^3/uL (1.2-6.7); Atypical Lymphocytes % 0; Bands % 0; WBC 79.04 10^3/uL (4.4-10.8)
[2022-09-30 11:21] LABS: Diff Comment Manual Differential; RBC Morphology Normal
== END 2022-10-19 23:59 | disposition home or self-care (01) ==
LOC: INF 01:01
PROVIDERS: PCP Neuromusculoskeletal Medicine & OMM; Visit Provider Internal Medicine Hematology & Oncology
DX: Z79.899 Other long term (current) drug therapy (principal); C18.9 Malignant neoplasm of colon, unspecified; Z45.2 Encounter for adjustment and management of vascular access device
CPT/HCPCS: 36591; 80053; 82378; 84439; 84443; 85025

== ENCOUNTER 2022-11-11 00:04 | Outpatient (RCR) | payer MEDICARE, SELFPAY ==
[2022-10-21] MEDS: Normal Saline Flush 10 ML SYR IVP (13:16)
[2022-10-21 13:57] LABS: Abs Immature Grans 0.16 10^3/uL (0.0-0.06); Absolute Monocyte Count 0.76 10^3/uL (0.1-0.8); Basophils % 0.1; Eosinophils % 0.1; HCT 44.8 % (36.0-46.0); HGB 14.3 g/dL (11.2-15.7); Immature Grans % 0.2; Lymphocytes % 91.9; MCH 29.7 pg (27.0-33.0); MCHC 31.9 % (32.0-36.0); MCV 93 fL (80-95); MPV 11.3 fL (8.0-11.0); Monocytes % 0.9; Neutrophils % 6.8; Platelet Count 172 10^3/uL (130-400); RBC 4.82 10^6/uL (3.93-5.22); RDW 13.9 % (11.7-14.6); RDW-SD 47.2 fL
[2022-10-21 14:04] LABS: Absolute Basophil Count 0.08 10^3/uL (0.0-0.2); Absolute Eosinophil Count 0.08 10^3/uL (0.0-0.7); Absolute Lymphocyte Count 77.71 10^3/uL (1.2-3.4); Absolute Neutrophil Count 5.75 10^3/uL (1.2-6.7); WBC 84.56 10^3/uL (4.4-10.8)
[2022-10-21 14:14] LABS: Diff Comment Agrees w/ Instrument; RBC Morphology Normal
[2022-10-21 14:24] LABS: ALT 27 U/L (14-59); AST 23 U/L (15-37); Albumin 3.9 g/dL (3.4-5.0); Alkaline Phosphatase 67 U/L (46-116); Anion Gap 7.1 mmol/L (3-11); BUN 16 mg/dL (7-18); Bilirubin, Total 0.6 mg/dL (0.2-1.0); CO2 28.9 mmol/L (21.0-32.0); CREATININE 0.9 mg/dL (0.55-1.02); Calcium 8.9 mg/dL (8.5-10.1); Chloride 105 mmol/L (98-107); Glucose 102 mg/dL (74-106); Potassium 3.8 mmol/L (3.5-5.1); Sodium 141 mmol/L (136-145); TSH 2.25 uIU/mL (0.36-3.74); Total Protein 6.8 g/dL (6.4-8.2)
[2022-10-21 22:32] LABS: CEA 1.9 ng/mL (See Note)
[2022-11-11] MEDS: Normal Saline Flush 10 ML SYR IVP (10:32)
[2022-11-11 10:43] LABS: Abs Immature Grans 0.15 10^3/uL (0.0-0.06); Basophils % 0.1; Eosinophils % 0.2; HCT 45.3 % (36.0-46.0); HGB 14.9 g/dL (11.2-15.7); Immature Grans % 0.2; Lymphocytes % 91.7; MCH 30.1 pg (27.0-33.0); MCHC 32.9 % (32.0-36.0); MCV 92 fL (80-95); MPV 10.7 fL (8.0-11.0); Monocytes % 1.2; Neutrophils % 6.6; Platelet Count 174 10^3/uL (130-400); RBC 4.95 10^6/uL (3.93-5.22); RDW-SD 46.5 fL
[2022-11-11 10:59] LABS: Absolute Basophil Count 0.08 10^3/uL (0.0-0.2); Absolute Eosinophil Count 0.16 10^3/uL (0.0-0.7); Absolute Lymphocyte Count 72.21 10^3/uL (1.2-3.4); Absolute Monocyte Count 0.95 10^3/uL (0.1-0.8)
[2022-11-11 11:14] LABS: Diff Comment Agrees w/ Instrument; RBC Morphology Normal
[2022-11-11 11:21] LABS: WBC 78.75 10^3/uL (4.4-10.8)
[2022-11-11 11:24] LABS: ALT 26 U/L (14-59); AST 20 U/L (15-37); Albumin 3.8 g/dL (3.4-5.0); Alkaline Phosphatase 67 U/L (46-116); Anion Gap 8.2 mmol/L (3-11); BUN 16 mg/dL (7-18); Bilirubin, Total 0.6 mg/dL (0.2-1.0); CO2 29.8 mmol/L (21.0-32.0); CREATININE 0.8 mg/dL (0.55-1.02); Calcium 8.8 mg/dL (8.5-10.1); Chloride 105 mmol/L (98-107); Estimated GFR 77.75 (mL/min/1.73m2); Glucose 98 mg/dL (74-106); Potassium 4.6 mmol/L (3.5-5.1); Sodium 143 mmol/L (136-145); TSH 3.22 uIU/mL (0.36-3.74); Total Protein 6.9 g/dL (6.4-8.2)
[2022-11-11 11:42] LABS: FREE T4 0.82 ng/dL (0.76-1.46)
[2022-11-11 22:18] LABS: CEA 2.4 ng/mL (See Note)
== END 2022-11-18 23:59 | disposition home or self-care (01) ==
LOC: INF 00:04
PROVIDERS: PCP Neuromusculoskeletal Medicine & OMM; Visit Provider Internal Medicine Hematology & Oncology
DX: Z79.899 Other long term (current) drug therapy (principal); C18.9 Malignant neoplasm of colon, unspecified; Z45.2 Encounter for adjustment and management of vascular access device
CPT/HCPCS: 36591; 80053; 82378; 84439; 84443; 85025

== ENCOUNTER 2022-12-02 01:26 | Outpatient (RCR) | payer MEDICARE, SELFPAY ==
[2022-12-02] MEDS: Normal Saline Flush 10 ML SYR IVP (12:05)
[2022-12-02 12:12] LABS: Abs Immature Grans 0.11 10^3/uL (0.0-0.06); Absolute Lymphocyte Count 57.74 10^3/uL (1.2-3.4); Basophils % 0.4; Eosinophils % 0.3; HCT 40.3 % (36.0-46.0); HGB 13.1 g/dL (11.2-15.7); Immature Grans % 0.2; Lymphocytes % 89.8; MCH 29.8 pg (27.0-33.0); MCHC 32.5 % (32.0-36.0); MCV 92 fL (80-95); MPV 10.7 fL (8.0-11.0); Monocytes % 1.2; Neutrophils % 8.1; Platelet Count 173 10^3/uL (130-400); RDW 13.6 % (11.7-14.6); RDW-SD 45.3 fL
[2022-12-02 12:19] LABS: Absolute Basophil Count 0.26 10^3/uL (0.0-0.2); Absolute Eosinophil Count 0.19 10^3/uL (0.0-0.7); Absolute Monocyte Count 0.77 10^3/uL (0.1-0.8); Absolute Neutrophil Count 5.21 10^3/uL (1.2-6.7)
[2022-12-02 12:28] LABS: Diff Comment Agrees w/ Instrument; RBC Morphology Normal
[2022-12-02 12:36] LABS: ALT 28 U/L (14-59); AST 26 U/L (15-37); Albumin 3.5 g/dL (3.4-5.0); Alkaline Phosphatase 69 U/L (46-116); Anion Gap 8.3 mmol/L (3-11); BUN 17 mg/dL (7-18); Bilirubin, Total 0.6 mg/dL (0.2-1.0); CO2 28.7 mmol/L (21.0-32.0); CREATININE 0.8 mg/dL (0.55-1.02); Calcium 8.5 mg/dL (8.5-10.1); Chloride 105 mmol/L (98-107); Estimated GFR 77.75 (mL/min/1.73m2); FREE T4 0.88 ng/dL (0.76-1.46); Glucose 221 mg/dL (74-106); Potassium 3.7 mmol/L (3.5-5.1); Sodium 142 mmol/L (136-145); Total Protein 6.4 g/dL (6.4-8.2)
[2022-12-05 12:17] LABS: CEA 1.7 ng/mL (See Note)
== END 2022-12-19 23:59 | disposition home or self-care (01) ==
LOC: INF 01:26
PROVIDERS: PCP Neuromusculoskeletal Medicine & OMM; Visit Provider Internal Medicine Hematology & Oncology
DX: Z79.899 Other long term (current) drug therapy (principal); C18.2 Malignant neoplasm of ascending colon; Z45.2 Encounter for adjustment and management of vascular access device
CPT/HCPCS: 36591; 80053; 82378; 84439; 84443; 85025

== ENCOUNTER → 2023-01-09 00:52 | Outpatient (CLI) | payer MEDICARE, SELFPAY ==
--- NOTE | 2023-01-09 | DI.CT_ITS ---
Exam(s) CT CHEST/ABD/PEL W EXAM: CT CHEST/ABD/PEL W CLINICAL HISTORY: ON IMMUNOTHERAPY FOR COLON CA,CLL,C18.9,C78.7,ASSESS RESPONSE TO TREATMENT TECHNIQUE: Imaging Protocol: Axial computed tomography images with coronal and sagittal reformatted images were created and reviewed CONTRAST MATERIAL: Intravenous: Omnipaque 350 contrast volume:100 mL Oral: Yes COMPARISON: CT CT CHEST/ABD/PELVIS W/CONTRAST from 11/07/2022 FINDINGS: CHEST: Tracheobronchial tree: Patent where visualized. Pulmonary parenchyma: No consolidation or dominant measurable mass. No architectural distortion. No p ulmonary nodules are identified. Visualized thyroid gland: Unremarkable. Mediastinum and Aletha: No dominant adenopathy or fluid collection. The esophagus is unremarkable. The re is a small hiatal hernia. There is a stable 1.2 cm lymph node in the superior mediastinum. The l ymph nodes in the mediastinum are unchanged. Pleura: No effusion or pneumothorax. Heart: The heart is not dilated. No coronary artery calcifications are seen. Mitral valvular calcific ations are again seen. No significant pericardial effusion is present. Pulmonary arteries: No pulmonary emboli are identified. Aorta: Thoracic aorta non-dilated. Atherosclerosis. No evidence of dissection. Lymph nodes: The largest lymph node in the right axilla measures 1.6 x 1 cm. This is unchanged. The largest lymph node in the left axilla measures 2.2 x 0.7 cm. This is unchanged. Tubes, Catheters, and Lines: The tip of the central venous catheter terminates in the superior vena c joao. Soft tissues: Unremarkable. Bones:Within normal limits for the patient's age. No aggressive osseous lesions. ABDOMEN: Liver: Normal density. There is an area of decreased attenuation seen in the inferior aspect of the l eft lobe of the liver. (Series 12 images [id number]. Vessels are seen coursing through this area and t his may reflect an area of fatty infiltration. There is a stable hypodensity in the posterior aspect of the right lobe of the liver. There is a stable round 2-3 mm hypodensity in the left lobe of the liver. These areas are too small for further characterization. Portal, Superior Mesenteric, and Splenic Veins: Unremarkable. Gallbladder and Biliary Tract: Gallbladder is distended. No cholelithiasis is seen. The common duct now measures 9 mm which is enlarged compared to the prior examination. There is mild stranding seen around the gallbladder fundus. Pancreas: Normal density, no abnormal calcifications or inflammatory process. Spleen: Normal. Adrenals: No masses seen. Kidneys: There is left renal cortical scarring again noted. No radiodense stones or obstructive urop athy. There is a tiny 3 mm hypodensity seen in the right kidney which is stable. It is too small for further characterization. Abdominal Aorta: Abdominal portion non-dilated. Atherosclerosis is present. Bowel: There is diverticulosis seen in the colon, but no evidence of acute diverticulitis. There is an enterocolic anastomosis in the right abdomen. There is no evidence of bowel obstruction or bowel wall thickening. No evidence of appendicitis. Peritoneal Cavity: No ascites, collection or mesenteric inflammatory response. No free air. Lymph Nodes: There is again seen a 1.3 x 1 cm lymph node in the left periaortic region. Bones: Within normal limits for the patient's age. No aggressive lytic or sclerotic lesions are seen . Soft Tissues: Unremarkable. PELVIS: Bladder: The urinary bladder is incompletely distended. Unchanged calcifications are seen in the triny or of the urinary bladder. Reproductive Organs: There is a pessary in place. Lymph Nodes: Within normal limits. Bones: Within normal limits. IMPRESSION: 1. Stable bilateral axillary and retroperitoneal lymph nodes. No new adenopathy. 2. Distended gallbladder with mild soft tissue stranding around the fundus. Interval extrahepatic bi liary ductal dilatation at 9 mm. Gallbladder ultrasound is recommended for further evaluation. No p ancreatic mass is seen at this time. No cholelithiasis is present. MRCP may also be considered. 3. Area of decreased attenuation in the inferior aspect of the left lobe of the liver. This may repr esent focal fatty infiltration. MRI of the liver may be considered for further evaluation and to exc lude mass. 4. Unexpected findings RADIATION DOSE DELIVERED: 1,501.55mGy.cm Total DLP DATA REPOSITORY: All CT scans at this facility are submitted to the National Radiology Data Registry (NRDR) Dose Index Registry (DIR) with the [employer] (ACR). RADIATION OPTIMIZATION: All CT scans at this facility use at least one of these dose optimization te chniques: automated exposure control; mA and/or kV adjustment per patient size (includes targeted exa ms where dose is matched to clinical indication); or iterative reconstruction.
[2023-01-09] MEDS: Barium Sulfate 2% W/V-Berry Smoothie 450 ML BTL 900 ML PO (07:36)
[2023-01-09] MEDS: Omnipaque 350 MG/ML 100 ML BTL IJ (10:07)
[2023-01-09] MEDS: Normal Saline - Diluent 50 ML VIAL IJ (10:08)
== END ==
PROVIDERS: PCP Nurse Practitioner Family; Visit Provider Nurse Practitioner Family
DX: C18.9 Malignant neoplasm of colon, unspecified (principal); C78.7 Secondary malignant neoplasm of liver and intrahepatic bile duct
CPT/HCPCS: 74177; 96523; 71260; J3490

== ENCOUNTER 2023-01-13 00:56 | Outpatient (RCR) | payer MEDICARE, SELFPAY ==
[2022-12-23] MEDS: Normal Saline Flush 10 ML SYR IVP (12:04)
[2022-12-23 12:15] LABS: HGB 13.6 g/dL (11.2-15.7); MCH 29.8 pg (27.0-33.0); MCHC 32.4 % (32.0-36.0); MCV 92 fL (80-95); Platelet Count 193 10^3/uL (130-400); RBC 4.57 10^6/uL (3.93-5.22); RDW 13.2 % (11.7-14.6); RDW-SD 44.1 fL
[2022-12-23 12:29] LABS: WBC 69.37 10^3/uL (4.4-10.8)
[2022-12-23 12:42] LABS: ALT 23 U/L (14-59); AST 13 U/L (15-37); Albumin 3.5 g/dL (3.4-5.0); Alkaline Phosphatase 75 U/L (46-116); Anion Gap 6.2 mmol/L (3-11); BUN 14 mg/dL (7-18); Bilirubin, Total 0.4 mg/dL (0.2-1.0); CO2 28.8 mmol/L (21.0-32.0); CREATININE 0.8 mg/dL (0.55-1.02); Calcium 8.4 mg/dL (8.5-10.1); Chloride 105 mmol/L (98-107); Estimated GFR 77.75 (mL/min/1.73m2); FREE T4 0.89 ng/dL (0.76-1.46); Glucose 215 mg/dL (74-106); Potassium 4.1 mmol/L (3.5-5.1); Sodium 140 mmol/L (136-145); Total Protein 6.6 g/dL (6.4-8.2)
[2022-12-23 12:43] LABS: Absolute Lymphocyte Count 60.35 10^3/uL (1.2-3.4); Absolute Neutrophil Count 8.32 10^3/uL (1.2-6.7); Bands % 0
[2022-12-23 12:44] LABS: Absolute Eosinophil Count 0.69 10^3/uL (0.0-0.7); Atypical Lymphocytes % 0; Diff Comment Manual Differential
[2022-12-26 08:14] LABS: CEA 1.8 ng/mL (See Note)
[2023-01-09] MEDS: Normal Saline Flush 10 ML SYR IVP ×2 (07:41→10:16)
[2023-01-09] MEDS: Heparin 500 UNITS/5 ML SYRINGE IV (10:16)
[2023-01-13 09:27] LABS: HCT 41.2 % (36.0-46.0); HGB 13.4 g/dL (11.2-15.7); MCH 29.6 pg (27.0-33.0); MCHC 32.5 % (32.0-36.0); MCV 91 fL (80-95); MPV 12.1 fL (8.0-11.0); Platelet Count 159 10^3/uL (130-400); RBC 4.52 10^6/uL (3.93-5.22); RDW 13.6 % (11.7-14.6); RDW-SD 45.2 fL
[2023-01-13 09:43] LABS: WBC 48.31 10^3/uL (4.4-10.8)
[2023-01-13 09:50] LABS: ALT 21 U/L (14-59); AST 13 U/L (15-37); Albumin 3.3 g/dL (3.4-5.0); Alkaline Phosphatase 92 U/L (46-116); Anion Gap 11.1 mmol/L (3-11); BUN 11 mg/dL (7-18); Bilirubin, Total 0.5 mg/dL (0.2-1.0); CO2 24.9 mmol/L (21.0-32.0); CREATININE 0.9 mg/dL (0.55-1.02); Calcium 8.5 mg/dL (8.5-10.1); Chloride 102 mmol/L (98-107); FREE T4 1.06 ng/dL (0.76-1.46); Glucose 419 mg/dL (74-106); Potassium 3.4 mmol/L (3.5-5.1); Sodium 138 mmol/L (136-145); TSH 2.71 uIU/mL (0.36-3.74); Total Protein 6.4 g/dL (6.4-8.2)
[2023-01-13 10:04] LABS: Absolute Lymphocyte Count 39.13 10^3/uL (1.2-3.4); Absolute Neutrophil Count 9.18 10^3/uL (1.2-6.7); Diff Comment Manual Differential
[2023-01-13] MEDS: Normal Saline Flush 10 ML SYR IVP (10:53)
[2023-01-13 11:34] LABS: Hemoglobin A1C 7.5 % (<5.7)
[2023-01-13 20:17] LABS: CEA 4.1 ng/mL (See Note)
== END 2023-01-19 23:59 | disposition home or self-care (01) ==
LOC: INF 00:56
PROVIDERS: PCP Neuromusculoskeletal Medicine & OMM; Visit Provider Internal Medicine Hematology & Oncology
DX: R73.9 Hyperglycemia, unspecified (principal); C18.2 Malignant neoplasm of ascending colon; Z79.899 Other long term (current) drug therapy; Z45.2 Encounter for adjustment and management of vascular access device
CPT/HCPCS: 36591; 80053; 96523; 82378; 83036; 84439; 84443; 85025

== ENCOUNTER → 2023-01-30 00:42 | Outpatient (CLI) | payer MEDICARE, SELFPAY ==
--- NOTE | 2023-01-30 | DI.US_ITS ---
Exam(s) US ABDOMEN LIMITED EXAM: US ABDOMEN LIMITED CLINICAL HISTORY: F/U ABNL CT OF GB, R93.2,GB DISTENSION WITH BILE DUCT DILATATION,INTERMITTE TECHNIQUE: Ultrasound abdomen performed using standard protocol. COMPARISON: CT CT CHEST/ABD/PEL W from 01/09/2023 FINDINGS: There is no ascites evident. LIVER: There are no hepatic lesions evident nor dilatation of intrahepatic ducts. Mild steatosis. GALLBLADDER/BILIARY: There are no shadowing gallstones but there appear to be 2 small nonmobile polyp s at the level the fundus. The larger of the 2 measures 4 mm The common hepatic duct isnot dilated, measuring 3-4mm at the level of reynold hepatis. PANCREAS: Pancreas appears somewhat hypoechoic but without discrete mass nor dilatation of the pancre atic duct. RIGHT KIDNEY:No evidence of solid mass, calculus, nor hydronephrosis. No cortical cysts evident. IMPRESSION: 1. No shadowing gallstones. Small gallbladder fundus polyps measuring up to 4 mm. Common hepatic d uct is not dilated. Gallbladder is not distended on today's study and does not appear edematous. 2. Mild hepatic steatosis. 3. Pancreas appears somewhat uniformly hypoechoic for this age group. Correlation with blood work t o rule out pancreatitis recommended. There are no peripancreatic fluid collections. No ascites. DATA REPOSITORY:
== END ==
PROVIDERS: PCP Nurse Practitioner Family; Visit Provider Nurse Practitioner Family
DX: R93.2 Abnormal findings on diagnostic imaging of liver and biliary tract (principal)
CPT/HCPCS: 76705

== ENCOUNTER 2023-01-31 10:35 | Outpatient (CLI) | payer MEDICARE, SELFPAY ==
[2023-01-31 13:09] LABS: Amylase 18 U/L (25-115); Lipase 13 U/L (16-77)
[2023-02-01 10:59] LABS: Hepatitis A Antibody IgM Negative (Negative); Hepatitis B Core Antibody Negative (Negative); Hepatitis B surface Ag Negative (Negative); Hepatitis C Ab w Rflx HCV PCR Negative (Negative)
== END 2023-01-31 10:36 | disposition home or self-care (01) ==
LOC: LOS 10:36
PROVIDERS: PCP Nurse Practitioner Family; Referring Provider Nurse Practitioner Family; Visit Provider Nurse Practitioner Family
DX: R14.0 Abdominal distension (gaseous) (principal); R19.7 Diarrhea, unspecified; Z11.59 Encounter for screening for other viral diseases
CPT/HCPCS: 36415; 83690; 86704; 86709; 86803; 87340; 82150

== ENCOUNTER 2023-02-01 16:17 | Outpatient (REF) | payer MEDICARE, SELFPAY ==
[2023-02-02 18:35] LABS: Campylobacter PCR Negative (Negative); Salmonella PCR Negative (Negative); Shiga Toxin PCR Negative (Negative); Shigella/Enteroinvasive Ecoli Negative (Negative)
== END 2023-02-01 16:18 | disposition home or self-care (01) ==
LOC: LBN 16:17
PROVIDERS: PCP Nurse Practitioner Family; Visit Provider Nurse Practitioner Family
DX: R14.0 Abdominal distension (gaseous) (principal); R19.7 Diarrhea, unspecified
CPT/HCPCS: 87329; 87505; 87177

== ENCOUNTER 2023-02-03 01:07 | Outpatient (RCR) | payer MEDICARE, SELFPAY ==
[2023-02-03] MEDS: Normal Saline Flush 10 ML SYR IVP (08:08)
[2023-02-03 08:39] LABS: Abs Immature Grans 0.19 10^3/uL (0.0-0.06); Basophils % 0.4; Eosinophils % 0.2; HCT 41.3 % (36.0-46.0); HGB 13.2 g/dL (11.2-15.7); Immature Grans % 0.3; Lymphocytes % 83.3; MCH 29.3 pg (27.0-33.0); MCV 92 fL (80-95); MPV 12.8 fL (8.0-11.0); Monocytes % 1.1; Neutrophils % 14.7; Platelet Count 163 10^3/uL (130-400); RBC 4.51 10^6/uL (3.93-5.22); RDW 13.7 % (11.7-14.6); RDW-SD 45.8 fL
[2023-02-03 08:55] LABS: Absolute Basophil Count 0.24 10^3/uL (0.0-0.2); Absolute Eosinophil Count 0.12 10^3/uL (0.0-0.7); Absolute Lymphocyte Count 50.08 10^3/uL (1.2-3.4); Absolute Monocyte Count 0.66 10^3/uL (0.1-0.8); Absolute Neutrophil Count 8.84 10^3/uL (1.2-6.7); WBC 60.12 10^3/uL (4.4-10.8)
[2023-02-03 08:56] LABS: Diff Comment Diff Reviewed; RBC Morphology Normal
[2023-02-03 09:02] LABS: ALT 24 U/L (14-59); AST 13 U/L (15-37); Albumin 3.4 g/dL (3.4-5.0); Alkaline Phosphatase 95 U/L (46-116); Anion Gap 7.9 mmol/L (3-11); BUN 11 mg/dL (7-18); Bilirubin, Total 0.5 mg/dL (0.2-1.0); CO2 28.1 mmol/L (21.0-32.0); CREATININE 0.9 mg/dL (0.55-1.02); Calcium 8.8 mg/dL (8.5-10.1); Chloride 99 mmol/L (98-107); FREE T4 1.19 ng/dL (0.76-1.46); Glucose 496 mg/dL (74-106); Potassium 3.8 mmol/L (3.5-5.1); Sodium 135 mmol/L (136-145); TSH 3.35 uIU/mL (0.36-3.74); Total Protein 6.2 g/dL (6.4-8.2)
== END 2023-02-18 23:59 | disposition home or self-care (01) ==
LOC: INF 01:07
PROVIDERS: Nurse Practitioner Family; PCP Nurse Practitioner Family; Visit Provider Internal Medicine Hematology & Oncology
DX: C18.9 Malignant neoplasm of colon, unspecified (principal); C78.7 Secondary malignant neoplasm of liver and intrahepatic bile duct; Z79.899 Other long term (current) drug therapy; Z45.2 Encounter for adjustment and management of vascular access device
CPT/HCPCS: 36591; 80053; 84439; 84443; 85025

== ENCOUNTER 2023-02-25 10:25 | Outpatient (REF) | payer MEDICARE, SELFPAY ==
[2023-02-25 14:08] LABS: C Diff PCR Negative (Negative)
== END 2023-02-25 10:26 | disposition home or self-care (01) ==
LOC: LBN 10:25
PROVIDERS: PCP Nurse Practitioner Family; Visit Provider Nurse Practitioner Family
DX: R19.7 Diarrhea, unspecified (principal)
CPT/HCPCS: 87329; 87493; 87177

== ENCOUNTER → 2023-02-28 00:22 | Outpatient (CLI) | payer MEDICARE, SELFPAY ==
[2023-02-28] MEDS: Gadoterate meglumine 20 ML VIAL 12 ML IVP (10:34)
--- NOTE | 2023-02-28 11:10 | DI.MRI_ITS ---
Exam(s) MR ABDOMEN WO/W EXAM: MR ABDOMEN WO/W CLINICAL HISTORY: recent abd findings on abd CT,US,abd bloating,diarrhea TECHNIQUE: Multiplanar multisequence MRI of the Abdomen was performed. CONTRAST MATERIAL: IV Contrast: 12 mL of Dotarem contrast administered. COMPARISON: MR MR ABDOMEN W/WO CONTRAST from 02/16/[address] CHEST/ABD/PEL W from 01/09/2023 FINDINGS: Liver: There is loss of signal on the opposed phase images in the left lobe of the liver correspondin g to focal fatty infiltration. This corresponds to the finding seen on the CT scan of the abdomen an d pelvis from 01/09/2023. No hepatic mass is seen in this region. There has been no change in size o f the lesion in the posterior right hepatic lobe measuring 1.3 cm. Pancreas: Unremarkable. Gallbladder and Bile Ducts: There is no evidence of cholelithiasis or biliary ductal dilatation. Adrenals: There is no evidence of an adrenal mass. Kidneys: There is a 7 mm right renal cyst. No follow-up is recommended. No evidence of obstructive uropathy or solid renal mass. Spleen: Unremarkable. Bowel: Unremarkable. Aorta: Unremarkable. Soft Tissues: Unremarkable. Bone: Unremarkable. Lymph Nodes: No significant adenopathy. Peritoneum: No evidence of ascites. IMPRESSION: 1. Findings most consistent with fatty infiltration in the left lobe of the liver corresponding to th e abnormality seen on the recent CT scan from 01/09/2023. 2. Otherwise stable appearance of the MRI of the abdomen since 02/16/2022. DATA REPOSITORY:
== END ==
PROVIDERS: PCP Nurse Practitioner Family; Visit Provider Nurse Practitioner Family
DX: R14.0 Abdominal distension (gaseous) (principal); R19.7 Diarrhea, unspecified
CPT/HCPCS: 74183; 96523; J1642

== ENCOUNTER 2023-03-01 11:43 | Outpatient (REF) | payer MEDICARE, SELFPAY | END 2023-03-01 11:44 | disposition home or self-care (01) | LOC: LBN 11:43 | PROVIDERS: PCP Nurse Practitioner Family; Visit Provider Nurse Practitioner Family | DX: R19.7 Diarrhea, unspecified (principal); R63.4 Abnormal weight loss | CPT/HCPCS: 87329; 87177 ==

== ENCOUNTER 2023-03-03 05:48 | Outpatient (RCR) | payer MEDICARE, SELFPAY ==
[2023-02-24] MEDS: Normal Saline Flush 10 ML SYR IVP (10:55)
[2023-02-24 11:05] LABS: HCT 42.7 % (36.0-46.0); HGB 13.8 g/dL (11.2-15.7); MCH 29.6 pg (27.0-33.0); MCHC 32.3 % (32.0-36.0); MCV 92 fL (80-95); MPV 12.4 fL (8.0-11.0); Platelet Count 164 10^3/uL (130-400); RBC 4.66 10^6/uL (3.93-5.22)
[2023-02-24 11:28] LABS: Absolute Lymphocyte Count 43.12 10^3/uL (1.2-3.4); Absolute Monocyte Count 1.05 10^3/uL (0.1-0.8); Absolute Neutrophil Count 8.41 10^3/uL (1.2-6.7); Diff Comment Manual Differential; RBC Morphology Normal
[2023-02-24 11:31] LABS: WBC 52.58 10^3/uL (4.4-10.8)
[2023-02-24 11:40] LABS: ALT 31 U/L (14-59); AST 21 U/L (15-37); Albumin 3.5 g/dL (3.4-5.0); Alkaline Phosphatase 86 U/L (46-116); BUN 12 mg/dL (7-18); Bilirubin, Total 0.5 mg/dL (0.2-1.0); CREATININE 0.8 mg/dL (0.55-1.02); Chloride 102 mmol/L (98-107); Estimated GFR 77.75 (mL/min/1.73m2); Glucose 335 mg/dL (74-106); Potassium 3.6 mmol/L (3.5-5.1); Sodium 136 mmol/L (136-145); TSH 1.45 uIU/mL (0.36-3.74); Total Protein 6.5 g/dL (6.4-8.2)
[2023-02-24 13:07] LABS: Amylase 31 U/L (25-115); Lipase 10 U/L (16-77)
[2023-02-28] MEDS: Heparin 500 UNITS/5 ML SYRINGE IV (09:40)
[2023-02-28] MEDS: Normal Saline Flush 10 ML SYR IVP (09:41)
[2023-03-03] MEDS: Normal Saline Flush 10 ML SYR IVP (12:02)
[2023-03-03 12:25] LABS: HCT 41.8 % (36.0-46.0); HGB 13.2 g/dL (11.2-15.7); MCH 29.3 pg (27.0-33.0); MCHC 31.6 % (32.0-36.0); MCV 93 fL (80-95); MPV 12.3 fL (8.0-11.0); Platelet Count 141 10^3/uL (130-400); RBC 4.51 10^6/uL (3.93-5.22); RDW 14.1 % (11.7-14.6); RDW-SD 47.8 fL
[2023-03-03 12:32] LABS: WBC 46.23 10^3/uL (4.4-10.8)
[2023-03-03 12:35] LABS: Absolute Neutrophil Count 6.93 10^3/uL (1.2-6.7); Atypical Lymphocytes % 3
[2023-03-03 12:36] LABS: Absolute Lymphocyte Count 38.83 10^3/uL (1.2-3.4); Absolute Monocyte Count 0.46 10^3/uL (0.1-0.8); Diff Comment Manual Differential; RBC Morphology Normal
[2023-03-03 12:54] LABS: ALT 34 U/L (14-59); AST 21 U/L (15-37); Albumin 3.4 g/dL (3.4-5.0); Alkaline Phosphatase 74 U/L (46-116); Amylase 41 U/L (25-115); Anion Gap 7.4 mmol/L (3-11); BUN 14 mg/dL (7-18); Bilirubin, Total 0.4 mg/dL (0.2-1.0); CO2 25.6 mmol/L (21.0-32.0); CREATININE 0.7 mg/dL (0.55-1.02); Calcium 8.6 mg/dL (8.5-10.1); Chloride 105 mmol/L (98-107); Estimated GFR 91.26 (mL/min/1.73m2); FREE T4 0.88 ng/dL (0.76-1.46); Glucose 266 mg/dL (74-106); Lipase 12 U/L (16-77); Potassium 3.6 mmol/L (3.5-5.1); Sodium 138 mmol/L (136-145); Total Protein 6.1 g/dL (6.4-8.2)
[2023-03-03 22:39] LABS: CEA 7.1 ng/mL (See Note)
== END 2023-03-21 23:59 | disposition home or self-care (01) ==
LOC: INF 05:48
PROVIDERS: Nurse Practitioner Family; PCP Nurse Practitioner Family; Visit Provider Internal Medicine Hematology & Oncology
DX: C18.9 Malignant neoplasm of colon, unspecified (principal); C78.7 Secondary malignant neoplasm of liver and intrahepatic bile duct; R19.7 Diarrhea, unspecified; R63.4 Abnormal weight loss; Z45.2 Encounter for adjustment and management of vascular access device
CPT/HCPCS: 36591; 80053; 83690; 96523; 82150; 82378; 84439; 84443; 85025; J1642

== ENCOUNTER 2023-03-14 02:53 | Outpatient (CLI) | payer MEDICARE, SELFPAY | END 2023-03-14 02:54 | disposition home or self-care (01) | LOC: LOS 02:53 | PROVIDERS: PCP Nurse Practitioner Family; Visit Provider Nurse Practitioner Family | DX: R19.7 Diarrhea, unspecified (principal); R63.4 Abnormal weight loss | CPT/HCPCS: 36415; 82533 ==

== ENCOUNTER → 2023-03-23 00:49 | Outpatient (CLI) | payer MEDICARE, SELFPAY ==
--- NOTE | 2023-03-23 | DI.CT_ITS ---
Exam(s) CT CHEST/ABD/PEL W EXAM: CT CHEST/ABD/PEL W CLINICAL HISTORY: COLON CA METASTASIZED TO LIVER, C18.9,C78.7,ASSESS RESPONSE TO TREATMENT TECHNIQUE: Imaging Protocol: Axial computed tomography images with coronal and sagittal reformatted images were created and reviewed CONTRAST MATERIAL: Intravenous: Omnipaque contrast volume:100 mL Oral: Yes COMPARISON: MR MR ABDOMEN W/WO CONTRAST from 02/16/[address] CHEST/ABD/PEL W from 01/09/2023 MR MR ABDOMEN WO/W from 02/28/2023 FINDINGS: CHEST: Tracheobronchial tree: Patent where visualized. Pulmonary parenchyma: No consolidation or dominant measurable mass. No architectural distortion. Visualized thyroid gland: Unremarkable. Mediastinum and Aletha: No dominant adenopathy or fluid collection. The esophagus is unremarkable. Pleura: No effusion or pneumothorax. Heart: The heart is not dilated. No coronary artery calcifications are seen. No pericardial effusion. There is calcification of the mitral annulus. Pulmonary arteries: No pulmonary emboli are identified. Aorta: Thoracic aorta non-dilated. No evidence of dissection. Atherosclerosis is present. Lymph nodes: The largest lymph node in the left axilla measures 1.4 cm. The largest lymph node in th e right axilla measures 1.7 cm compared to 1.6 cm on the prior examination. Tubes, Catheters, and Lines: There is a right sided Nnemmf-N-Mjlk catheter. Soft tissues: Unremarkable. Bones:Within normal limits for the patient's age. No aggressive osseous lesions are identified. ABDOMEN: Liver: There is again seen fatty infiltration in the left lobe of the liver. There is an 8 mm hypode nsity in the posterior aspect of the right lobe of the liver. This corresponds to the finding seen o n the MRI from 02/16/2022. No new hepatic lesions are identified. There is a stable cyst seen in the left lobe of the liver. Portal, Superior Mesenteric, and Splenic Veins: Unremarkable. Gallbladder and Biliary Tract: No radiodense calculus or dilation. Pancreas: Normal density, no abnormal calcifications or inflammatory process. Spleen: Normal. Adrenals: No masses seen. Kidneys: There is left renal scarring again noted. There is a tiny hypodensity seen in the right kid justice consistent with a cyst and unchanged. No follow-up is recommended. No radiodense stones or obst ructive uropathy. No masses seen. Abdominal Aorta: Abdominal portion non-dilated. Atherosclerosis. Bowel: There is diverticulosis in the colon but no evidence of acute diverticulitis. There is no citlalli dence of bowel wall thickening or obstruction. There is no evidence of appendicitis. There has been no change of the fat density lesion adjacent to the hepatic flexure. Peritoneal Cavity: No ascites, collection or mesenteric inflammatory response. No free air. Lymph Nodes: There is a stable left periaortic lymph node. It measures 1.2 cm. Bones: Within normal limits for the patient's age. No aggressive osseous lesions are seen. Soft Tissues: Unremarkable. PELVIS: Bladder: Symmetric distention, no gross wall thickening. Reproductive Organs: There is a pessary in place. Lymph Nodes: Within normal limits. Bones: Within normal limits. IMPRESSION: 1. No change in appearance of the chest since the prior examination. 2. Stable hypodensity in the posterior aspect of the right lobe of the liver. No new hepatic lesions are seen. 3. Stable left periaortic lymph node. RADIATION DOSE DELIVERED: Total DLP DATA REPOSITORY: All CT scans at this facility are submitted to the National Radiology Data Registry (NRDR) Dose Index Registry (DIR) with the [employer] (ACR). RADIATION OPTIMIZATION: All CT scans at this facility use at least one of these dose optimization te chniques: automated exposure control; mA and/or kV adjustment per patient size (includes targeted exa ms where dose is matched to clinical indication); or iterative reconstruction.
[2023-03-23] MEDS: Barium Sulfate 2% W/V-Berry Smoothie 450 ML BTL PO (12:49)
[2023-03-23] MEDS: Omnipaque 350 MG/ML 500 ML BTL-Imaging package IJ (12:55)
[2023-03-23] MEDS: Normal Saline Flush 10 ML SYR IVP (12:56)
== END ==
PROVIDERS: PCP Nurse Practitioner Family; Visit Provider Nurse Practitioner Family
DX: C18.9 Malignant neoplasm of colon, unspecified (principal); C78.7 Secondary malignant neoplasm of liver and intrahepatic bile duct
CPT/HCPCS: 36591; 74177; 80053; 83690; 71260; 82150; 84439; 84443; 85025

== ENCOUNTER 2023-03-24 15:55 | Outpatient (REF) | payer MEDICARE, SELFPAY ==
[2023-03-24 23:44] LABS: CEA 5.9 ng/mL (See Note)
== END 2023-03-24 15:56 | disposition home or self-care (01) ==
LOC: LBN 15:55
PROVIDERS: PCP Nurse Practitioner Family; Visit Provider Nurse Practitioner Family
DX: C18.9 Malignant neoplasm of colon, unspecified (principal); C78.7 Secondary malignant neoplasm of liver and intrahepatic bile duct
CPT/HCPCS: 82378

== ENCOUNTER 2023-03-27 09:31 | Outpatient (REF) | payer MEDICARE, SELFPAY ==
[2023-03-30 20:16] LABS: Pancreatic Elastase, F <40 mcg/g
== END 2023-03-27 09:32 | disposition home or self-care (01) ==
LOC: LBN 09:31
PROVIDERS: PCP Nurse Practitioner Family; Visit Provider Internal Medicine Hematology & Oncology
DX: C18.9 Malignant neoplasm of colon, unspecified (principal); R63.4 Abnormal weight loss; R19.7 Diarrhea, unspecified
CPT/HCPCS: 82656

== ENCOUNTER 2023-04-14 00:24 | Outpatient (RCR) | payer MEDICARE, SELFPAY ==
[2023-03-23] MEDS: Normal Saline Flush 10 ML SYR IVP (10:43)
[2023-03-23 11:06] LABS: HCT 42.3 % (36.0-46.0); HGB 13.6 g/dL (11.2-15.7); MCH 29.8 pg (27.0-33.0); MCHC 32.2 % (32.0-36.0); MCV 93 fL (80-95); MPV 12.2 fL (8.0-11.0); Platelet Count 148 10^3/uL (130-400); RBC 4.56 10^6/uL (3.93-5.22); RDW 14.1 % (11.7-14.6); RDW-SD 47.8 fL
[2023-03-23 11:23] LABS: Absolute Lymphocyte Count 37.91 10^3/uL (1.2-3.4); Absolute Monocyte Count 1.01 10^3/uL (0.1-0.8); Absolute Neutrophil Count 11.63 10^3/uL (1.2-6.7); Diff Comment Manual Differential; RBC Morphology Normal
[2023-03-23 11:28] LABS: WBC 50.55 10^3/uL (4.4-10.8)
[2023-03-23 11:41] LABS: ALT 33 U/L (14-59); AST 20 U/L (15-37); Albumin 3.6 g/dL (3.4-5.0); Alkaline Phosphatase 86 U/L (46-116); Anion Gap 9.9 mmol/L (3-11); BUN 12 mg/dL (7-18); Bilirubin, Total 0.5 mg/dL (0.2-1.0); CO2 24.1 mmol/L (21.0-32.0); CREATININE 0.9 mg/dL (0.55-1.02); Calcium 8.8 mg/dL (8.5-10.1); Chloride 103 mmol/L (98-107); Estimated GFR 67.08 (mL/min/1.73m2); FREE T4 0.97 ng/dL (0.76-1.46); Glucose 295 mg/dL (74-106); Potassium 3.9 mmol/L (3.5-5.1); Sodium 137 mmol/L (136-145); TSH 2.57 uIU/mL (0.36-3.74); Total Protein 6.3 g/dL (6.4-8.2)
[2023-03-23 17:49] LABS: Amylase 37 U/L (25-115); Lipase 10 U/L (16-77)
[2023-04-14] MEDS: Normal Saline Flush 10 ML SYR IVP (12:11)
[2023-04-14 12:15] LABS: Abs Immature Grans 0.11 10^3/uL (0.0-0.06); HCT 41.9 % (36.0-46.0); HGB 13.4 g/dL (11.2-15.7); MCH 29.8 pg (27.0-33.0); MCV 93 fL (80-95); MPV 11.2 fL (8.0-11.0); Platelet Count 185 10^3/uL (130-400); RDW 13.9 % (11.7-14.6); RDW-SD 47.6 fL
[2023-04-14 12:19] LABS: WBC 55.18 10^3/uL (4.4-10.8)
[2023-04-14 12:30] LABS: Absolute Lymphocyte Count 49.11 10^3/uL (1.2-3.4); Absolute Neutrophil Count 6.07 10^3/uL (1.2-6.7)
[2023-04-14 12:31] LABS: Diff Comment Manual Differential; RBC Morphology Normal
[2023-04-14 12:41] LABS: ALT 27 U/L (14-59); AST 19 U/L (15-37); Albumin 3.5 g/dL (3.4-5.0); Alkaline Phosphatase 85 U/L (46-116); Anion Gap 5.4 mmol/L (3-11); BUN 18 mg/dL (7-18); Bilirubin, Total 0.5 mg/dL (0.2-1.0); CO2 28.6 mmol/L (21.0-32.0); CREATININE 0.7 mg/dL (0.55-1.02); Calcium 8.8 mg/dL (8.5-10.1); Chloride 105 mmol/L (98-107); FREE T4 0.75 ng/dL (0.76-1.46); Glucose 117 mg/dL (74-106); Potassium 3.9 mmol/L (3.5-5.1); Sodium 139 mmol/L (136-145); TSH 2.36 uIU/mL (0.36-3.74); Total Protein 6.5 g/dL (6.4-8.2)
[2023-04-17 09:26] LABS: CEA 3.5 ng/mL (See Note)
== END 2023-04-20 23:59 | disposition home or self-care (01) ==
LOC: INF 00:24
PROVIDERS: Nurse Practitioner Family; PCP Nurse Practitioner Family; Visit Provider Internal Medicine Hematology & Oncology
DX: C18.9 Malignant neoplasm of colon, unspecified (principal); C78.7 Secondary malignant neoplasm of liver and intrahepatic bile duct; Z79.899 Other long term (current) drug therapy; Z45.2 Encounter for adjustment and management of vascular access device
CPT/HCPCS: 36591; 80053; 83690; 82150; 82378; 84439; 84443; 85025

== ENCOUNTER 2023-05-02 12:04 | Outpatient (REF) | payer MEDICARE, SELFPAY ==
[2023-05-05 18:51] LABS: Calprotectin <50.0 mcg/g
== END 2023-05-02 12:05 | disposition home or self-care (01) ==
LOC: LBN 12:04
PROVIDERS: PCP Nurse Practitioner Family
DX: R19.7 Diarrhea, unspecified (principal); C18.9 Malignant neoplasm of colon, unspecified; C78.7 Secondary malignant neoplasm of liver and intrahepatic bile duct
CPT/HCPCS: 83993

== ENCOUNTER 2023-05-05 01:05 | Outpatient (RCR) | payer MEDICARE, SELFPAY ==
[2023-05-05] MEDS: Normal Saline Flush 10 ML SYR IVP (12:30)
[2023-05-05 13:01] LABS: HCT 41.1 % (36.0-46.0); HGB 12.8 g/dL (11.2-15.7); MCH 28.9 pg (27.0-33.0); MCHC 31.1 % (32.0-36.0); MCV 93 fL (80-95); MPV 11.4 fL (8.0-11.0); Platelet Count 157 10^3/uL (130-400); RBC 4.43 10^6/uL (3.93-5.22); RDW 13.6 % (11.7-14.6); RDW-SD 46.4 fL
[2023-05-05 13:08] LABS: WBC 50.05 10^3/uL (4.4-10.8)
[2023-05-05 13:31] LABS: ALT 30 U/L (14-59); AST 18 U/L (15-37); Albumin 3.3 g/dL (3.4-5.0); Alkaline Phosphatase 83 U/L (46-116); Anion Gap 7.6 mmol/L (3-11); BUN 18 mg/dL (7-18); Bilirubin, Total 0.5 mg/dL (0.2-1.0); CO2 29.4 mmol/L (21.0-32.0); CREATININE 0.7 mg/dL (0.55-1.02); Calcium 8.6 mg/dL (8.5-10.1); Chloride 103 mmol/L (98-107); Glucose 216 mg/dL (74-106); Potassium 3.9 mmol/L (3.5-5.1); Sodium 140 mmol/L (136-145); Total Protein 6.3 g/dL (6.4-8.2)
[2023-05-05 13:37] LABS: Absolute Lymphocyte Count 43.04 10^3/uL (1.2-3.4); Absolute Neutrophil Count 7.01 10^3/uL (1.2-6.7); Atypical Lymphocytes % 10
[2023-05-05 13:38] LABS: Diff Comment Manual Differential; RBC Morphology Normal
[2023-05-05 23:00] LABS: CEA 2.8 ng/mL (See Note)
== END 2023-05-21 23:59 | disposition home or self-care (01) ==
LOC: INF 01:05
PROVIDERS: Nurse Practitioner Family; PCP Nurse Practitioner Family; Visit Provider Internal Medicine Hematology & Oncology
DX: C18.9 Malignant neoplasm of colon, unspecified (principal); C78.7 Secondary malignant neoplasm of liver and intrahepatic bile duct; Z79.899 Other long term (current) drug therapy; Z45.2 Encounter for adjustment and management of vascular access device
CPT/HCPCS: 36591; 80053; 82378; 85025

== ENCOUNTER → 2023-06-21 00:18 | Outpatient (CLI) | payer MEDICARE, SELFPAY ==
--- NOTE | 2023-06-21 | DI.CT_ITS ---
Exam(s) CT CHEST/ABD/PEL W EXAM: CT CHEST/ABD/PEL W CLINICAL HISTORY: COLON CANCER METS TO LIVER C18.9 C78.7 PANCREATIC INSUFFICIENCY K86.89 TECHNIQUE: Imaging Protocol: Axial computed tomography images with coronal and sagittal reformatted images were created and reviewed CONTRAST MATERIAL: Intravenous: Omnipaque 350 contrast volume:100 mL Oral: Yes COMPARISON: CT CT CHEST/ABD/PEL W from 03/23/2023 FINDINGS: CHEST: Tracheobronchial tree: Patent where visualized. Pulmonary parenchyma: No consolidation or dominant measurable mass. No architectural distortion. Visualized thyroid gland: Unremarkable. Mediastinum and Aletha: No dominant adenopathy or fluid collection. The esophagus is unremarkable. Pleura: No effusion or pneumothorax. Heart: The heart is not dilated. No coronary artery calcifications are seen. No pericardial effusion. Pulmonary arteries: No pulmonary emboli are identified. Aorta: Thoracic aorta non-dilated. No evidence of dissection. There is atherosclerosis present. Lymph nodes: Stable appearance of the enlarged axillary lymph nodes. Tubes, Catheters, and Lines: There is a right-sided Cvrelf-V-Eyha catheter. Soft tissues: Unremarkable. Bones:Within normal limits for the patient's age. No aggressive osseous lesions. ABDOMEN: Liver: There is fatty infiltration in the liver. The 8 mm peripheral hypodensity in the posterior se gment of the right lobe of the liver appears stable. No new hepatic lesions are seen. Portal, Superior Mesenteric, and Splenic Veins: Unremarkable. Gallbladder and Biliary Tract: No radiodense calculus or dilation. Pancreas: Normal density, no abnormal calcifications or inflammatory process. Spleen: Normal. Adrenals: No masses seen. Kidneys: Normal size, contour and axis. No radiodense stones or obstructive uropathy. No masses seen. Abdominal Aorta: Abdominal portion non-dilated. Atherosclerosis. Bowel: There is diverticulosis of the colon but no evidence of acute diverticulitis. No bowel wall t hickening or obstruction. No evidence of appendicitis. Partial right colectomy. Peritoneal Cavity: No ascites, collection or mesenteric inflammatory response. No free air. Lymph Nodes: There is a stable left periaortic lymph node. Bones: Within normal limits for the patient's age. Soft Tissues: Unremarkable. PELVIS: Bladder: There is mild diffuse thickening of the wall of the urinary bladder. This is nonspecific. Reproductive Organs: There is a pessary in place. Lymph Nodes: Within normal limits. Bones: Within normal limits. IMPRESSION: 1. Overall stable appearance of the chest, abdomen and pelvis compared to the examination from 023. 2. No evidence of progression of metastatic disease. RADIATION DOSE DELIVERED: 1,618.53mGy.cm Total DLP DATA REPOSITORY: All CT scans at this facility are submitted to the National Radiology Data Registry (NRDR) Dose Index Registry (DIR) with the [employer] (ACR). RADIATION OPTIMIZATION: All CT scans at this facility use at least one of these dose optimization te chniques: automated exposure control; mA and/or kV adjustment per patient size (includes targeted exa ms where dose is matched to clinical indication); or iterative reconstruction.
[2023-06-21] MEDS: Omnipaque 350 MG/ML 100 ML BTL IJ (10:16)
[2023-06-21] MEDS: Normal Saline - Diluent 50 ML VIAL IJ (10:17)
[2023-06-21] MEDS: Barium Sulfate 2% W/V-Berry Smoothie 450 ML BTL PO (10:18)
== END ==
PROVIDERS: PCP Nurse Practitioner Family; Visit Provider Nurse Practitioner Family
DX: C18.9 Malignant neoplasm of colon, unspecified (principal); C78.7 Secondary malignant neoplasm of liver and intrahepatic bile duct
CPT/HCPCS: 74177; 96523; 71260; J3490

== ENCOUNTER 2023-06-21 03:24 | Outpatient (RCR) | payer MEDICARE, SELFPAY ==
[2023-05-26] MEDS: Normal Saline Flush 10 ML SYR IVP (10:43)
[2023-05-26 11:00] LABS: Abs Immature Grans 0.08 10^3/uL (0.0-0.06); Absolute Monocyte Count 0.87 10^3/uL (0.1-0.8); Absolute Neutrophil Count 4.86 10^3/uL (1.2-6.7); Basophils % 0.4; Eosinophils % 0.3; HCT 41.7 % (36.0-46.0); HGB 13.5 g/dL (11.2-15.7); Immature Grans % 0.2; Lymphocytes % 86.6; MCH 30.1 pg (27.0-33.0); MCHC 32.4 % (32.0-36.0); MCV 93 fL (80-95); MPV 11.2 fL (8.0-11.0); Monocytes % 1.9; Neutrophils % 10.6; Platelet Count 142 10^3/uL (130-400); RBC 4.48 10^6/uL (3.93-5.22); RDW 13.5 % (11.7-14.6)
[2023-05-26 11:02] LABS: Absolute Basophil Count 0.18 10^3/uL (0.0-0.2); Absolute Eosinophil Count 0.14 10^3/uL (0.0-0.7); Absolute Lymphocyte Count 39.68 10^3/uL (1.2-3.4)
[2023-05-26 11:08] LABS: WBC 45.82 10^3/uL (4.4-10.8)
[2023-05-26 11:23] LABS: ALT 61 U/L (14-59); AST 42 U/L (15-37); Albumin 3.6 g/dL (3.4-5.0); Alkaline Phosphatase 78 U/L (46-116); Anion Gap 8.9 mmol/L (3-11); BUN 23 mg/dL (7-18); Bilirubin, Total 0.7 mg/dL (0.2-1.0); CO2 28.1 mmol/L (21.0-32.0); CREATININE 0.8 mg/dL (0.55-1.02); Calcium 8.9 mg/dL (8.5-10.1); Chloride 102 mmol/L (98-107); Estimated GFR 77.27 (mL/min/1.73m2); FREE T4 0.82 ng/dL (0.76-1.46); Glucose 182 mg/dL (74-106); Potassium 4.3 mmol/L (3.5-5.1); Sodium 139 mmol/L (136-145); TSH 2.46 uIU/mL (0.36-3.74); Total Protein 6.6 g/dL (6.4-8.2)
[2023-05-26 11:24] LABS: Diff Comment Agrees w/ Instrument; RBC Morphology Normal
[2023-06-16] MEDS: Normal Saline Flush 10 ML SYR IVP (12:25)
[2023-06-16 12:39] LABS: Abs Immature Grans 0.12 10^3/uL (0.0-0.06); Absolute Basophil Count 0.06 10^3/uL (0.0-0.2); Absolute Eosinophil Count 0.17 10^3/uL (0.0-0.7); Basophils % 0.1; Eosinophils % 0.3; HCT 41.7 % (36.0-46.0); HGB 13.7 g/dL (11.2-15.7); Immature Grans % 0.2; Lymphocytes % 84.7; MCH 30.5 pg (27.0-33.0); MCHC 32.9 % (32.0-36.0); MCV 93 fL (80-95); MPV 11.3 fL (8.0-11.0); Monocytes % 1.7; Platelet Count 163 10^3/uL (130-400); RBC 4.49 10^6/uL (3.93-5.22); RDW 13.1 % (11.7-14.6); RDW-SD 44.3 fL
[2023-06-16 12:50] LABS: Absolute Lymphocyte Count 47.37 10^3/uL (1.2-3.4); Absolute Monocyte Count 0.95 10^3/uL (0.1-0.8); Absolute Neutrophil Count 7.27 10^3/uL (1.2-6.7)
[2023-06-16 12:54] LABS: Diff Comment Agrees w/ Instrument; RBC Morphology Normal
[2023-06-16 12:55] LABS: WBC 55.93 10^3/uL (4.4-10.8)
[2023-06-16 13:07] LABS: ALT 37 U/L (14-59); AST 22 U/L (15-37); Albumin 3.5 g/dL (3.4-5.0); Alkaline Phosphatase 78 U/L (46-116); Anion Gap 5.5 mmol/L (3-11); BUN 18 mg/dL (7-18); Bilirubin, Total 0.6 mg/dL (0.2-1.0); CO2 30.5 mmol/L (21.0-32.0); CREATININE 0.8 mg/dL (0.55-1.02); Calcium 8.9 mg/dL (8.5-10.1); Chloride 105 mmol/L (98-107); Estimated GFR 77.27 (mL/min/1.73m2); FREE T4 0.75 ng/dL (0.76-1.46); Glucose 192 mg/dL (74-106); Potassium 4.2 mmol/L (3.5-5.1); Sodium 141 mmol/L (136-145); Total Protein 6.5 g/dL (6.4-8.2)
[2023-06-16 22:23] LABS: CEA 3.5 ng/mL (See Note)
[2023-06-21] MEDS: Normal Saline Flush 10 ML SYR IVP (09:20)
== END 2023-06-21 23:59 | disposition home or self-care (01) ==
LOC: INF 03:24
PROVIDERS: Nurse Practitioner Family; PCP Nurse Practitioner Family; Visit Provider Internal Medicine Hematology & Oncology
DX: C18.9 Malignant neoplasm of colon, unspecified (principal); C78.7 Secondary malignant neoplasm of liver and intrahepatic bile duct; Z79.899 Other long term (current) drug therapy; Z45.2 Encounter for adjustment and management of vascular access device
CPT/HCPCS: 36591; 80053; 96523; 82378; 84439; 84443; 85025

== ENCOUNTER 2023-07-07 02:03 | Outpatient (RCR) | payer MEDICARE, SELFPAY ==
[2023-07-07] MEDS: Normal Saline Flush 10 ML SYR IVP (11:58)
[2023-07-07 12:11] LABS: HCT 41.6 % (36.0-46.0); HGB 13.1 g/dL (11.2-15.7); MCH 29.2 pg (27.0-33.0); MCHC 31.5 % (32.0-36.0); MCV 93 fL (80-95); MPV 10.5 fL (8.0-11.0); Platelet Count 175 10^3/uL (130-400); RBC 4.48 10^6/uL (3.93-5.22); RDW 12.9 % (11.7-14.6); RDW-SD 43.5 fL
[2023-07-07 12:25] LABS: Absolute Lymphocyte Count 49.54 10^3/uL (1.2-3.4); Absolute Monocyte Count 1.88 10^3/uL (0.1-0.8); Absolute Neutrophil Count 11.29 10^3/uL (1.2-6.7); Bands % 0
[2023-07-07 12:27] LABS: Diff Comment Manual Differential; RBC Morphology Normal
[2023-07-07 12:28] LABS: WBC 62.71 10^3/uL (4.4-10.8)
[2023-07-07 12:29] LABS: ALT 36 U/L (14-59); AST 25 U/L (15-37); Albumin 3.5 g/dL (3.4-5.0); Alkaline Phosphatase 85 U/L (46-116); BUN 20 mg/dL (7-18); Bilirubin, Total 0.5 mg/dL (0.2-1.0); CREATININE 0.7 mg/dL (0.55-1.02); Calcium 8.6 mg/dL (8.5-10.1); Chloride 104 mmol/L (98-107); FREE T4 0.76 ng/dL (0.76-1.46); Glucose 119 mg/dL (74-106); Potassium 4.3 mmol/L (3.5-5.1); Sodium 142 mmol/L (136-145); TSH 2.85 uIU/mL (0.36-3.74); Total Protein 6.6 g/dL (6.4-8.2)
[2023-07-07 17:28] LABS: CEA 3.3 ng/mL (See Note)
== END 2023-07-20 23:59 | disposition home or self-care (01) ==
LOC: INF 02:03
PROVIDERS: PCP Nurse Practitioner Family; Visit Provider Internal Medicine Hematology & Oncology
DX: C18.9 Malignant neoplasm of colon, unspecified (principal); C78.7 Secondary malignant neoplasm of liver and intrahepatic bile duct; Z79.899 Other long term (current) drug therapy; Z45.2 Encounter for adjustment and management of vascular access device
CPT/HCPCS: 36591; 80053; 82378; 84439; 84443; 85025

== ENCOUNTER 2023-08-13 17:03 | Observation (INO) | payer MEDICARE, SELFPAY ==
[2023-08-13] VITALS (86 sets, daily range): BP systolic 93–155; BP diastolic 49–102; PULSE 63–141; RESP 11–34; TEMP 37.1–37.5; O2SAT 95–98
--- NOTE | 2023-08-13 17:00 | RT.EKG_ITS ---
APPROVED REPORT Exam: Resting ECG Reason for Exam: syncope Patient Location: E HR:131 bpm ECG Measurements Heart Rate 131 AXIS FL 155 P 89 QRSd 89 QRS 21 QT 294 T [id number] QTc 435 Conclusion Sinus tachycardia...rate> 99 Narrow complex atrial flutter with rapid ventricular response at a rate of 131. Normal axis. Interv als within normal limits. No acute injury pattern. No prior for comparison.
--- NOTE | 2023-08-13 17:15 | RT.EKG_ITS ---
APPROVED REPORT Exam: Resting ECG Reason for Exam: repeat Patient Location: E HR:125 bpm ECG Measurements Heart Rate 125 AXIS ME [id number] P [id number] QRSd 92 QRS 37 QT 319 T 68 QTc 461 Conclusion Atrial flutter with 2:1 AV block...A-rate 283, V-rate> 99 ST elevation, consider inferior injury...ST >0.08mV, II III aVF Narrow complex atrial flutter at a rate of 125. Normal axis. QTc within normal limits. Mild ST seg ment depressions left chest wall leads. Appears similar to prior dated earlier this evening.
--- NOTE | 2023-08-13 17:30 | DI.RAD_ITS ---
Exam(s) XR FOOT LT COMPLETE EXAM: XR FOOT LT COMPLETE CLINICAL HISTORY: fall, injury. TECHNIQUE: 2D digital imaging was performed. Three views. COMPARISON: No exams were available for comparison FINDINGS: Exam limited by radiopaque material incorporated into the patient's sock. BONES: Oblique fractures through the distal through mid 4th and 5th metacarpals. No bony destructive lesion is seen. Heel spurs. JOINTS: No dislocation present. SOFT TISSUE: Vascular calcifications. Swelling over dorsum of foot. IMPRESSION: Fourth and 5th metatarsal fractures. DATA REPOSITORY: RADIATION DOSE DELIVERED:
--- NOTE | 2023-08-13 17:30 | DI.RAD_ITS ---
Exam(s) XR CHEST 2V PA LATERAL EXAM: XR CHEST 2V PA LATERAL CLINICAL HISTORY: weakness, fall TECHNIQUE: 2D digital imaging was performed. Two views. COMPARISON: No exams were available for comparison FINDINGS: HEART: Normal size. Aorta: Not dilated. Calcification at arch. PULMONARY VASCULATURE: Normal. LUNGS: Clear. PLEURAL SPACE: No pleural effusion or pneumothorax. BONE:Unremarkable for age. Soft tissues: A port is noted over the right upper chest with tip in SVC. IMPRESSION: No acute abnormality. DATA REPOSITORY: RADIATION DOSE DELIVERED:
--- NOTE | 2023-08-13 17:30 | DI.CT_ITS ---
Exam(s) CT HEAD WO EXAM: CT HEAD WO CLINICAL HISTORY: HI, eliquise. TECHNIQUE: Imaging Protocol: Axial computed tomography images with coronal and sagittal reformatted images were created and reviewed COMPARISON: No exams were available for comparison FINDINGS: Ventricles and Extra axial spaces: Normal in size and morphology for the patient's age. Hemorrhage: None. Cerebral parenchyma: No evidence of acute infarct or mass. Area of low attenuation in left frontal re gion, consistent with old area infarct. Midline shift: None. Brainstem/Cerebellum: Normal. Calvarium: Normal. Visualized Paranasal sinuses:Mild mucous retention left maxillary sinus. Mastoids: Clear. Soft Tissues: Unremarkable. ORBITS: Unremarkable. PITUITARY: Not enlarged. IMPRESSION: No acute intracranial process. Small old left frontal infarct. RADIATION DOSE DELIVERED: Total DLP DATA REPOSITORY: All CT scans at this facility are submitted to the National Radiology Data Registry (NRDR) Dose Index Registry (DIR) with the [employer] (ACR). RADIATION OPTIMIZATION: All CT scans at this facility use at least one of these dose optimization te chniques: automated exposure control; mA and/or kV adjustment per patient size (includes targeted exa ms where dose is matched to clinical indication); or iterative reconstruction.
[2023-08-13 18:01] LABS: HCT 43.1 % (36.0-46.0); MCH 29.7 pg (27.0-33.0); MCHC 32.5 % (32.0-36.0); MCV 92 fL (80-95); MPV 10.9 fL (8.0-11.0); Platelet Count 151 10^3/uL (130-400); RBC 4.71 10^6/uL (3.93-5.22); RDW 12.6 % (11.7-14.6)
[2023-08-13] MEDS: Normal Saline 1,000 ML 1000 ML IV (18:01)
[2023-08-13 18:22] LABS: WBC 52.21 10^3/uL (4.4-10.8)
[2023-08-13 18:24] LABS: Absolute Lymphocyte Count 38.64 10^3/uL (1.2-3.4); Absolute Monocyte Count 2.61 10^3/uL (0.1-0.8); Absolute Neutrophil Count 10.96 10^3/uL (1.2-6.7); Atypical Lymphocytes % 13; Diff Comment Manual Differential; RBC Morphology Normal
[2023-08-13 18:26] LABS: ALT 27 U/L (14-59); AST 24 U/L (15-37); Albumin 3.6 g/dL (3.4-5.0); Alkaline Phosphatase 87 U/L (46-116); Anion Gap 11.7 mmol/L (3-11); BUN 18 mg/dL (7-18); Bilirubin, Total 0.7 mg/dL (0.2-1.0); CO2 25.3 mmol/L (21.0-32.0); CREATININE 0.9 mg/dL (0.55-1.02); Calcium 8.6 mg/dL (8.5-10.1); Chloride 97 mmol/L (98-107); Estimated GFR 67.08 (mL/min/1.73m2); Glucose 164 mg/dL (74-106); Lipase 12 U/L (16-77); Magnesium 1.7 mg/dL (1.8-2.4); Potassium 3.8 mmol/L (3.5-5.1); Sodium 134 mmol/L (136-145); TSH (W/Ref FT4) 2.96 uIU/mL (0.36-3.74); Total Protein 6.6 g/dL (6.4-8.2); Troponin I < 50 ng/L (< or =60)
--- NOTE | 2023-08-13 18:44 | ED.GENADUL_ITS ---
Discharge Plan Disposition Patient Disposition: Home Condition: Stable Discharge Details Clinical Impression: Atrial flutter, Syncope, Foot fracture, left, Hypomagnesemia Primary Care Provider: Silvina Dodd ED Provider: Leeanne Harrington Home Meds and New Rx's Prescriptions: No Action melatonin 3 mg capsule 3 mg PO HS PRN multivitamin [Daily Multi-Vitamin] Tablet 1 tab PO DAILY sertraline [Zoloft] 50 mg tablet 50 mg PO DAILY acetaminophen 650 mg tablet extended release 650 mg PO Q12H cranberry extract 250 mg capsule 250 mg PO DAILY Rx Instructions: administer with a meal lutein 20 mg capsule 20 mg PO DAILY Rx Instructions: give with meal/snack diphenoxylate-atropine [Lomotil] 2.5-0.025 mg tablet 2 tab PO TID PRN (Reason: diarrhea) Qty: 180 3RF Keytruda 25 mg/mL solution 200 mg IV Q3W Rx Instructions: administer over 30 mins cyclosporine [Restasis] 0.05 % dropperette 1 drp ophthalmic (eye) Q12H Qty: 60 3RF Creon 24,000-76,000 -120,000 unit capsule,delayed release(DR/EC) 3 cap PO .every meal Patient Comments: 3 pills with each meal, and 2 pills with each snack. insulin glargine [Lantus Solostar U-100 Insulin] 100 unit/mL (3 mL) insulin pen 10 unit subcut DAILY Eliquis 2.5 mg tablet 2.5 mg PO BID Qty: 180 3RF cholecalciferol (vitamin D3) 50 mcg/drop (2, 000 unit/drop) drops 50 mcg PO DAILY insulin glargine [Basaglar KwikPen U-100 Insulin] 100 unit/mL (3 mL) insulin pen 12 unit subcut QAM Qty: 15 4RF Hold Instructions: Formulary/Insurance Levemir FlexPen 100 unit/mL (3 mL) insulin pen 12 unit subcut QHS Qty: 15 3RF Hold Instructions: Changed by Provider (DME) pen needle, diabetic [BD Ultra-Fine Jami Pen Needle] 32 gauge x 5/32 needle See Rx Instructions .Route Qty: 100 3RF Rx Instructions: Use with insulin pen once daily temazepam 15 mg capsule 15 mg PO QHS Qty: 30 3RF (DME) blood-glucose meter [Accu-Chek Guide Glucose Meter] Misc See Rx Instructions .Route Qty: 1 0RF Rx Instructions: As directed, test blood sugar 4 times daily (DME) Accu-Chek Guide test strips Strip See Rx Instructions .Route Qty: 100 3RF Rx Instructions: As directed, test blood sugar 3 times daily HPI General Date/Time Provider Initiated Documentation: 08/13/23 17:38 . 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 Was recently started on Jardiance in the past week for diabetes and does take insulin as well. She states she has been having consistent diarrhea since starting on the Jardiance and is wondering if it is contributing to her symptoms. She states that subsequently she developed tachycardia on her watch and has been monitoring it through the day. Has a history of SVT but states this feels differently. Had an ablation many years back and states occasionally she has episodes of SVT. When she had the episodes of syncope she does not believe she lost consciousness completely but is not entirely sure. She did hit her head per patient. She also hurt her foot. She has had 2 of these episodes today per patient. Last diarrhea was today, she reports 3 episodes without blood. Does take Eliquis for history of pulmonary embolism per patient. Denies history of atrial fibrillation or atrial flutter. Related Data Home Medications Medication Instructions Recorded Confirmed cholecalciferol (vitamin D3) 50 50 mcg PO DAILY 01/30/23 08/13/23 mcg/drop (2,000 unit/drop) oral drops acetaminophen 650 mg 650 mg PO Q12H 01/31/23 08/13/23 tablet,extended release cranberry extract 250 mg capsule 250 mg PO DAILY 01/31/23 08/13/23 diphenoxylate-atropine 2.5 2 tab PO TID PRN diarrhea #180 tabs 01/31/23 08/13/23 mg-0.025 mg tablet (Lomotil) lutein 20 mg capsule 20 mg PO DAILY 01/31/23 08/13/23 melatonin 3 mg capsule 3 mg PO HS PRN 01/31/23 08/13/23 multivitamin (Daily Multi-Vitamin 1 tab PO DAILY 01/31/23 08/13/23 tablet) sertraline 50 mg tablet (Zoloft) 50 mg PO DAILY 01/31/23 08/13/23 pembrolizumab 25 mg/mL intravenous 200 mg (8 mL) IV Q3W 03/06/23 08/13/23 solution (Keytruda) insulin glargine 100 unit/mL (3 12 unit (0.12 mL) subcut QAM #15 mL 03/22/23 08/13/23 mL) subcutaneous pen (Basaglar KwikPen U-100 Insulin) insulin detemir U-100 100 unit/mL 12 unit (0.12 mL) subcut QHS #15 mL 03/23/23 08/13/23 (3 mL) subcutaneous pen (Levemir FlexPen) meyobg-[id number]-gixmufu 3 cap PO .every meal 04/03/23 08/13/23 24,000-76,000-120,000 unit capsule,delayed rel (Creon) apixaban 2.5 mg tablet (Eliquis) 2.5 mg PO BID #180 tabs 05/08/23 08/13/23 insulin glargine 100 unit/mL (3 10 unit subcut DAILY 05/08/23 08/13/23 mL) subcutaneous pen (Lantus Solostar U-100 Insulin) pen needle, diabetic 32 gauge x #100 ea 05/31/23 08/13/23/32 (BD Ultra-Fine Jami Pen Needle) blood sugar diagnostic (Accu-Chek #100 ea 06/14/23 08/13/23 Guide test strips) blood-glucose meter (Accu-Chek #1 ea 06/14/23 08/13/23 Guide Glucose Meter) temazepam 15 mg capsule 15 mg PO QHS #30 caps 06/14/23 08/13/23 cyclosporine 0.05 % eye drops in a 1 drp ophthalmic (eye) Q12H #60 ea 08/10/23 08/13/23 dropperette (Restasis) Previous Rx's Medication Instructions Recorded diphenoxylate-atropine 2.5 2 tab PO TID PRN diarrhea #180 tabs 01/31/23 mg-0.025 mg tablet (Lomotil) pembrolizumab 25 mg/mL intravenous 200 mg (8 mL) IV Q3W 03/06/23 solution (Keytruda) insulin glargine 100 unit/mL (3 12 unit (0.12 mL) subcut QAM #15 mL 03/22/23 mL) subcutaneous pen (Basaglar KwikPen U-100 Insulin) insulin detemir U-100 100 unit/mL 12 unit (0.12 mL) subcut QHS #15 mL 03/23/23 (3 mL) subcutaneous pen (Levemir FlexPen) apixaban 2.5 mg tablet (Eliquis) 2.5 mg PO BID #180 tabs 05/08/23 pen needle, diabetic 32 gauge x #100 ea 05/31/23 (BD Ultra-Fine Jami Pen Needle) blood sugar diagnostic (Accu-Chek #100 ea 06/14/23 Guide test strips) blood-glucose meter (Accu-Chek #1 ea 06/14/23 Guide Glucose Meter) temazepam 15 mg capsule 15 mg PO QHS #30 caps 06/14/23 cyclosporine 0.05 % eye drops in a 1 drp ophthalmic (eye) Q12H #60 ea 08/10/23 dropperette (Restasis) Allergies Allergy/AdvReac Type Severity Reaction Status Date / Time penicillin G Allergy Mild Skin Rash Verified 08/13/23 17:13 atorvastatin [From Lipitor] AdvReac Intermediate leg cramps Verified 08/13/23 17:13 omeprazole [From Prilosec] AdvReac Intermediate Diarrhea Verified 08/13/23 17:13 pantoprazole [From Protonix] AdvReac Intermediate Diarrhea Verified 08/13/23 17:13 metformin AdvReac Intermediate Diarrhea Uncoded 08/13/23 17:13 General Stated Complaint: AMS/LOC DIO: 3 Course Vital Signs Vital signs: Vital Signs Temperature 37.1 C 08/13/23 17:06 Pulse 141 H 08/13/23 17:06 Respiratory Rate 18 08/13/23 17:06 Blood Pressure 150/102 H 08/13/23 17:06 Pulse Oximetry 98 08/13/23 17:06 Temperature 37.1 C 08/13/23 17:06 Temperature Source Skin 08/13/23 17:06 Pulse 115 H 08/13/23 17:46 Respiratory Rate 21 08/13/23 17:57 Respiratory Effort Normal 03/24/24 17:58 Respiratory Depth Normal 08/13/23 17:58 Respiratory Pattern Normal 08/13/23 17:58 Blood Pressure 155/95 H 08/13/23 17:46 Blood Pressure Position Sitting 08/13/23 17:06 Pulse Oximetry 98 08/13/23 17:06 Oxygen Delivery Method Room Air 08/13/23 17:06 Oxygen Flow Rate 0 08/13/23 17:06 Pain Level 0 08/13/23 17:58 Lab/Test Results Lab/Test Results: Laboratory Tests Range/Units 08/13/23 08/13/23 17:49 17:49 WBC (4.4-10.8) 10^3/uL 52.21 H* RBC (3.93-5.22) 10^6/uL 4.71 Hgb (11.2-15.7) g/dL 14.0 Hct (36.0-46.0) % 43.1 MCV (80-95) fL 92 MCH (27.0-33.0) pg 29.7 MCHC (32.0-36.0) % 32.5 RDW (11.7-14.6) % 12.6 Plt Count (130-400) 10^3/uL 151 MPV (8.0-11.0) fL 10.9 Immature Gran % 0.0 Neutrophils % 21.0 Lymphocytes % 61.0 Atypical Lymphs % 13 Monocytes % 5.0 Eosinophils % 0.0 Basophils % 0.0 Nucleated RBC % (0.0-0.3) % 0.0 Absolute Neutrophils (1.2-6.7) 10^3/uL 10.96 H Absolute Lymphocytes (1.2-3.4) 10^3/uL 38.64 H Absolute Monocytes (0.1-0.8) 10^3/uL 2.61 H Absolute Eosinophils (0.0-0.7) 10^3/uL 0.00 Absolute Basophils (0.0-0.2) 10^3/uL 0.00 RBC Morphology Normal Sodium (136-145) mmol/L 134 L Potassium (3.5-5.1) mmol/L 3.8 Chloride (98-107) mmol/L 97 L Carbon Dioxide (21.0-32.0) mmol/L 25.3 Anion Gap (3-11) mmol/L 11.7 H BUN (7-18) mg/dL 18 Creatinine (0.55-1.02) mg/dL 0.9 Est GFR (CKD-EPI 2020) (mL/min/1.73m2) 67.08 Glucose (74-106) mg/dL 164 H Calcium (8.5-10.1) mg/dL 8.6 Magnesium (1.8-2.4) mg/dL 1.7 L Total Bilirubin (0.2-1.0) mg/dL 0.7 AST (15-37) U/L 24 ALT (14-59) U/L 27 Alkaline Phosphatase (46-116) U/L 87 Troponin I (< or =60) ng/L < 50 Total Protein (6.4-8.2) g/dL 6.6 Albumin (3.4-5.0) g/dL 3.6 Lipase (16-77) U/L 12 L Cancelled TSH (0.36-3.74) uIU/mL 2.96 Medical Decision Making 73-year-old female with multiple comorbidities presenting with report of recurrent presyncope versus syncope today with tachycardia this concerning for atrial flutter on presentation, new onset Patient is alert and oriented she actually appears quite well given her comorbidities however she is in new onset atrial flutter, initially in the 130s, responsive to fluid initially but then had recurrence of tachycardia, I did initiate an infusion at 125 of LR and gave 10 mg of diltiazem IV for rate control She is anticoagulated on Eliquis she did not take her evening dose of Eliquis, after discussion we will hold her Eliquis this evening secondary to ecchymosis and fracture to her foot I spoke with Dr. Shaheen Dillon, orthopedics at [facility] and the recommendation is to place patient in a postop shoe or boot and to have her follow-up with orthopedics, we do not have orthopedics on-call today but she will need consultation She was placed in a posterior splint for supportive care while admitted She remains neurovascularly intact I use [place] syncope rule in evaluating this patient and she does not meet low risk criteria and the recommendation is admission for observation She has 2 negative troponin levels, she has a baseline leukocytosis of 52,000 consistent with her CLL history unchanged, no suspicion clinically for infectious etiology of patient's complaints Chest x-ray does not show evidence of acute abnormality per radiology interpretation my review Left foot with midshaft metatarsal fractures to fourth and fifth digits and CT head does not show evidence of acute abnormality per radiology interpretation my review Previous ejection fraction 58% on an echocardiogram from 2017, last patient Mild hypokalemia at 134, mild hypomagnesemia at 1.7, given 1 g of IV mag Mild dehydration with gap of 11.7 glucose of [address] Maxwell, admitting hospitalist for observation Quality:[facility] Health Related Social Needs: No Data to Display Critical Care Time Critical Care Time Attestation: Approximately 35 minutes of critical care time performed secondary to atrial flutter, telemetry monitoring, recurrent syncope, and ultimately admission for telemetry monitoring and evaluation electrolytes PFSH All Active Problems (Updated 08/13/23 @ 23:08 by FACUNDO Black) Hypomagnesemia (Acute) Foot fracture, left (Acute) Syncope (Chronic) Atrial flutter (Acute) Pancreas (digestive gland) works poorly (Acute) Weight loss, unintentional (Acute) Abdominal bloating (Acute) Diarrhea (Acute) Vaginal prolapse (Acute) Intrinsic sphincter deficiency (ISD) (Acute) Seborrheic keratoses (Acute) CLL (chronic lymphocytic leukemia) (Acute) Actinic keratosis (Acute) Diabetes mellitus type 2, controlled (Acute) GERD (gastroesophageal reflux disease) (Chronic) Urine incontinence (Acute) SVT (supraventricular tachycardia) (Chronic) Medical History (Updated 08/13/23 @ 23:08 by FACUNDO Black) Pelvic organ prolapse quantification stage 3 cystocele Cerebral infarction Pulmonary embolism Squamous cell carcinoma of skin Family History (Updated 01/30/23 @ 16:58 by Karin Gilbert) Mother Diabetes Heart disease Hypertension Father Cancer Social History (Updated 01/30/23 @ 16:57 by Karin Gilbert) Smoking/Tobacco Use Status: Never Second Hand Exposure: Yes Smoking risk assessment performed?: Yes Alcohol Intake: current Alcohol Intake frequency: holidays/special occasions only Alcohol type: wine Drug use: Never Caregiver/Support person: No Household members: none Housing: apartment Communication Needs: None Do you need help understanding health information?: Never Pets and animals: Yes Sexually active: No Current gender identity: female What is your relationship status?: How often do you talk on the phone with friends or family?: three or more times per week How often do you get together with friends or relatives?: once per week How often do you attend anglican or nondenominational services?: decline to answer Do you belong to any clubs or organized social groups?: no Panel score (0-1 are the most socially isolated patients): 1 What type of physical activity do you participate in: walking Duration: 15-30 minutes/day Frequency: daily Seatbelt use: always Drive intox or ride w/intox ambulance driver: No
--- NOTE | 2023-08-13 18:45 | DI.VRAD_ITS ---
PROCEDURE INFORMATION: Exam: XR Left Foot Exam date and time: 08/13/2023 6:10 PM Age: 73 years old Clinical indication: Other: Fall, injury TECHNIQUE: Imaging protocol: Radiologic exam of the left foot. Views: 3 or more views. COMPARISON: No relevant prior studies available. FINDINGS: Bones/joints: Oblique fractures of 4th and 5th metatarsals with slight displacement. Small plantar and Achilles spurs. Soft tissues: Normal. IMPRESSION: Oblique fractures of 4th and 5th metatarsals with slight displacement. Dictated and Authenticated by: Nakul Sotelo MD. Ordering:JOAQUÍN Fallon MD
--- NOTE | 2023-08-13 18:46 | DI.VRAD_ITS ---
PROCEDURE INFORMATION: Exam: XR Chest Exam date and time: 08/13/2023 6:07 PM Age: 73 years old Clinical indication: Other: Weakness, fall TECHNIQUE: Imaging protocol: Radiologic exam of the chest. Views: 2 views. COMPARISON: CT CHEST/ABD/PEL W 06/21/2023 10:17 AM FINDINGS: Tubes, catheters and devices: Central line with its tip in the mid SVC. Lungs: Unremarkable. No consolidation. Pleural spaces: Unremarkable. No pleural effusion. No pneumothorax. Heart/Mediastinum: Unremarkable. No cardiomegaly. Bones/joints: Degenerative changes in the thoracic spine. IMPRESSION: No acute findings. Dictated and Authenticated by: Nakul Sotelo MD. Ordering:JOAQUÍN Fallon MD
--- NOTE | 2023-08-13 18:48 | DI.VRAD_ITS ---
PROCEDURE INFORMATION: Exam: CT Head Without Contrast Exam date and time: 08/13/2023 6:02 PM Age: 73 years old Clinical indication: Other: Eliquis, hi TECHNIQUE: Imaging protocol: Computed tomography of the head without contrast. Radiation optimization: All CT scans at this facility use at least one of these dose optimization techniques: automated exposure control; mA and/or kV adjustment per patient size (includes targeted exams where dose is matched to clinical indication); or iterative reconstruction. COMPARISON: No relevant prior studies available. FINDINGS: Brain: No intracranial hemorrhage. There is global parenchymal volume loss. Periventricular white matter hypoattenuation is nonspecific but most likely due to small vessel disease. No evidence of acute territorial infarct or cerebral edema. No mass effect or midline shift. Focal encephalomalacia left frontal region anterolaterally. Curvilinear density along deep portion parenchymal defect. This raises question of remote hemorrhage or possibly vascular malformation. Cerebral ventricles: Prominent ventricles likely secondary to volume loss. Paranasal sinuses: Visualized sinuses are unremarkable. No fluid levels. Mastoid air cells: Visualized mastoid air cells are well aerated. Bones/joints: Unremarkable. No acute fracture. Soft tissues: Unremarkable. IMPRESSION: 1. No acute intracranial findings. 2. No acute intracranial abnormality. 3. Focal encephalomalacia left frontal region anterolaterally. Curvilinear density along deep portion parenchymal defect. This raises question of remote hemorrhage or possibly vascular malformation. Non urgent evaluation with MRI could be considered if it has not been previously evaluated. Dictated and Authenticated by: Nakul Sotelo MD. Ordering:JOAQUÍN Fallon MD
[2023-08-13] MEDS: MAGNESIUM SULFATE 1 GM/100 ML BAG IVPB (18:50)
[2023-08-13 19:06] LABS: Bilirubin Negative (Negative); Blood Large (Negative); Clarity Clear (Clear); Glucose 100 mg/dL (Negative); Ketones Negative (Negative); Leukocyte Esterase Small (Negative); Nitrite Negative (Negative); Urobilinogen 0.2 mg/dL (Up to 0.2)
[2023-08-13 19:17] LABS: Bacteria Negative HPF (Negative); C & S Indicated? No; Casts Negative LPF (Negative); Crystals Negative HPF (Negative); Epithelial Cells Rare HPF (Negative); Mucus Negative (Negative); WBC 0-2 HPF (0-5)
[2023-08-13] MEDS: Acetaminophen 325 MG TAB 650 MG PO (20:45)
[2023-08-13] MEDS: Lactated Ringers 1,000 ML 150 ML IV (20:50)
[2023-08-13 21:22] LABS: Troponin I < 50 ng/L (< or =60)
[2023-08-13] MEDS: dilTIAZem 25 MG/5 ML VIAL 15 MG IVP (21:43)
--- NOTE | 2023-08-13 23:22 | W.PM.HP.N ---
Date of service: 08/13/23 Time of Service: 23:30 Assessment and Plan Assessment and plan (1) Foot fracture, left: Status: Acute Assessment and plan: In Posterior Splint- consult orthopedics for management input. Hold Eliquis for the short-term. (2) Atrial flutter: Status: Acute Assessment and plan: New onset, originally with RVR in the emergency room, controlled by 1 dose of 10 mg IV Cardizem then started on oral dosing. Will continue cardizem and consult cardiology and check an echo in the morning. Patient already on Eliquis for thromboembolic disease, but will hold this in light of her acute foot fracture for the short-term. Will supplement her low normal potassium and recheck. (3) Diarrhea: Status: Acute Assessment and plan: Likely reaction to Jardiance. Patient self-discontinued this morning, so is no longer taking it. Will use insulin for the time being. (4) CLL (chronic lymphocytic leukemia): Status: Acute Assessment and plan: Chronic, not undergoing, nor has she undergone, treatment at this time. WBC is 52,000 which is approximately her baseline. (5) Diabetes mellitus type 2, controlled: Status: Acute Assessment and plan: Generally well-controlled. Some of her medical issues are likely reaction to Jardiance which she still continued this morning and we will continue to hold. Will go back to her prior insulin dosing in the meantime. Check FSBS AC & HS. 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 Patient started taking Jardiance 2 days ago, and took 2 doses. Shortly thereafter she developed diarrhea and generally not feeling well. This morning she did not take another Jardiance dose (she took her insulin instead), but continued to have diarrhea and feel lousy all day. She felt lightheaded when she stood up. She felt diaphoretic at the times of feeling lightheaded, and overnight reported having night sweats which were unusual for her, and she denies fever and chills. She has been encouraging fluids. Despite this upon ambulating today she nearly passed out, falling and hitting her head in 2 locations hard, and as she fell she wedged her left foot under her kitchen cabinets and twisted her foot as she fell. She doesn't believe she fully passed out but isn't certain of this. She felt immediate foot pain with difficulty ambulating. Pain was sharp, severe, worse with movement and she has not been able to put weight on it. She reports she got up and fell once again hitting her head. She is on Eliquis. After still feeling lousy for a while, she decided to come into the emergency room for evaluation. She also noted her heart racing, but it felt different than her past SVT (treated seemingly successfully with a remote ablation). She reports noticing an occasional short-lived palpitation here there, but denies known past history of A-fib or a flutter. She had an echo back in 2017 (EF 58%) as part of her stroke and pulmonary embolus workup, but has no known history of CHF or cardiac disease. Patient specifically denies chest pain, shortness of breath, abdominal pain, recent changes in her urination, new focal numbness or weakness, leg edema, acute changes in vision or hearing, rashes. In the emergency room, patient was found to be in atrial flutter with RVR. She was given 1 dose of IV Cardizem which normalized her rate, admitted she was given an oral loading dose. She is also given IV fluids at [address] of LR. Dr[address] Shaheen iDllon with [facility] orthopedics was consulted and recommended a postop shoe or boot and to have her follow-up with orthopedics. (There was no orthopedics on-call here at [facility]). She was placed in an Ortho-Glass posterior splint, and she was neurovascularly intact before and after. She did not meet low risk criteria under the [place] syncope rules and was recommended for admission. She had 2 negative troponin levels, and her white blood count was 52,000, which is considered to be her baseline with her CLL. No evidence of infection was found. Chest x-ray without acute findings. Left foot with midshaft fractures of the fourth and fifth metatarsals. CT head was negative for acute abnormality. She had a slightly low magnesium at 1.7 and was given 1 g of IV magnesium. Low normal potassium of 3.8. She was noted to have mild dehydration with a gap of 11.7 and a glucose of 164. Sodium of 134. Review of Systems Narrative: Review of Systems See also HPI above. Const: Positive for diaphoresis. Negative for fever, chills. HENT: Negative for acute hearing changes. Eyes: Negative for acute visual disturbance. Resp: Negative for shortness of breath. CV: Negative for chest pain. Abd: Negative for abdominal pain. GI: Positive for bowel changes. : Negative for changes in urination. MSK: Negative for focal weakness. Skin: Negative for rash. Neuro: Negative for numbness. Heme: Negative for leg edema. PFSH All Active Problems Hypomagnesemia (Acute) Foot fracture, left (Acute) Syncope (Chronic) Atrial flutter (Acute) Pancreas (digestive gland) works poorly (Acute) Weight loss, unintentional (Acute) Abdominal bloating (Acute) Diarrhea (Acute) Vaginal prolapse (Acute) Intrinsic sphincter deficiency (ISD) (Acute) Seborrheic keratoses (Acute) CLL (chronic lymphocytic leukemia) (Acute) Actinic keratosis (Acute) Diabetes mellitus type 2, controlled (Acute) GERD (gastroesophageal reflux disease) (Chronic) Urine incontinence (Acute) SVT (supraventricular tachycardia) (Chronic) Medical History Pelvic organ prolapse quantification stage 3 cystocele Cerebral infarction Pulmonary embolism Squamous cell carcinoma of skin Surgical History History of bowel resection (Unknown) History of repair of anterior cruciate ligament of left knee Family History Mother Diabetes Heart disease Hypertension Father Cancer Social History Smoking/Tobacco Use Status: Never Second Hand Exposure: Yes Smoking risk assessment performed?: Yes Alcohol Intake: current Alcohol Intake frequency: holidays/special occasions only Alcohol type: wine Drug use: Never Caregiver/Support person: No Household members: none Housing: house Communication Needs: None Do you need help understanding health information?: Never Pets and animals: Yes Sexually active: No Current gender identity: female What is your relationship status?: How often do you talk on the phone with friends or family?: three or more times per week How often do you get together with friends or relatives?: once per week How often do you attend lutheran or amish services?: decline to answer Do you belong to any clubs or organized social groups?: no Panel score (0-1 are the most socially isolated patients): 1 What type of physical activity do you participate in: walking Duration: 15-30 minutes/day Frequency: daily Seatbelt use: always Drive intox 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 Meds Allergies and Home Medications Allergies Allergy/AdvReac Type Severity Reaction Status Date / Time penicillin G Allergy Mild Skin Rash Verified 08/13/23 17:13 atorvastatin [From Lipitor] AdvReac Intermediate leg cramps Verified 08/13/23 17:13 omeprazole [From Prilosec] AdvReac Intermediate Diarrhea Verified 08/13/23 17:13 pantoprazole [From Protonix] AdvReac Intermediate Diarrhea Verified 08/13/23 17:13 metformin AdvReac Intermediate Diarrhea Uncoded 08/13/23 17:13 Home Medications Medication Instructions Recorded Confirmed Type cholecalciferol (vitamin D3) 50 50 mcg PO DAILY 01/30/23 08/13/23 History mcg/drop (2,000 unit/drop) oral drops acetaminophen 650 mg 650 mg PO Q12H 01/31/23 08/13/23 History tablet,extended release cranberry extract 250 mg capsule 250 mg PO DAILY 01/31/23 08/13/23 History diphenoxylate-atropine 2.5 2 tab PO TID PRN diarrhea #180 tabs 01/31/23 08/13/23 Rx mg-0.025 mg tablet (Lomotil) lutein 20 mg capsule 20 mg PO DAILY 01/31/23 08/13/23 History melatonin 3 mg capsule 3 mg PO HS PRN 01/31/23 08/13/23 History multivitamin (Daily Multi-Vitamin 1 tab PO DAILY 01/31/23 08/13/23 History tablet) sertraline 50 mg tablet (Zoloft) 50 mg PO DAILY 01/31/23 08/13/23 History pembrolizumab 25 mg/mL intravenous 200 mg (8 mL) IV Q3W 03/06/23 08/13/23 Rx solution (Keytruda) insulin glargine 100 unit/mL (3 12 unit (0.12 mL) subcut QAM #15 mL 03/22/23 08/13/23 Rx mL) subcutaneous pen (Basaglar KwikPen U-100 Insulin) insulin detemir U-100 100 unit/mL 12 unit (0.12 mL) subcut QHS #15 mL 03/23/23 08/13/23 Rx (3 mL) subcutaneous pen (Levemir FlexPen) siblqb-srbvuavk-arohmip 3 cap PO .every meal 04/03/23 08/13/23 History 24,000-76,000-120,000 unit capsule,delayed rel (Creon) apixaban 2.5 mg tablet (Eliquis) 2.5 mg PO BID #180 tabs 05/08/23 08/13/23 Rx insulin glargine 100 unit/mL (3 10 unit subcut DAILY 05/08/23 08/13/23 History mL) subcutaneous pen (Lantus Solostar U-100 Insulin) pen needle, diabetic 32 gauge x #100 ea 05/31/23 08/13/23 Rx (BD Ultra-Fine Jami Pen Needle) blood sugar diagnostic (Accu-Chek #100 ea 06/14/23 08/13/23 Rx Guide test strips) blood-glucose meter (Accu-Chek #1 ea 06/14/23 08/13/23 Rx Guide Glucose Meter) temazepam 15 mg capsule 15 mg PO QHS #30 caps 06/14/23 08/13/23 Rx cyclosporine 0.05 % eye drops in a 1 drp ophthalmic (eye) Q12H #60 ea 08/10/23 08/13/23 Rx dropperette (Restasis) Exam Narrative Exam Narrative: Constitutional: NAD. Head/Face: NCAT. Eyes: PERRL. Nl appearing eyes. ENT: Nl appearing external ears, nose, and oropharynx. No exudates. Uvula mid-line. Neck: Supple, non-tender to palpation. No obvious mass. Moist mucous membranes. Chest: Chest wall non-tender to palpation. Resp: CTAB. Equal BS. No wheezes, rhonchi, crackles, rales. CV: RRR (4:1 flutter on monitor). No rubs, or gallops. Abd/GI: Soft, NTTP. No rebound, guarding, rigidity. No organomegaly or masses palpated. Back/: No spinal tenderness. No CVA tenderness. Skin: Warm & dry. No clinically significant rash noted on exposed skin. MSK/Ext: VILLELA. Left press tender incendiary grenade to palpation in Ortho-Glass posterior splint. 5/5 motor in all ext bilaterally. Heme/Lymph: No leg edema. Neuro: A&O. Nl speech. Sensory & Motor grossly intact. Capacity intact. Appropriate judgment. Psych: Appropriate mood, manner, and affect. SIRS Screen: Negative SIRS Criteria (at least 2 of the following): Temp (+ mode) (>101 (38.3), <96.8 (36))- Negative Pulse (>90/min)- Positive (a flutter with RVR) (or) Resp (>20/min)- Negative (or) WBC (>12K, <4K) or Bandemia (>10%)- Negative Source of Infection?: No. Antibiotics Indicated?: No. Results Imaging Chest x-ray: report reviewed (NAD) and image reviewed (NAD) Additional studies: Left Foot XR- 4th & 5th metatarsal Fxs Imaging Studies: CT Head- NAD (my read & hospitalist reading) Labs 08/13/23 17:49 08/13/23 17:49 Labs: Laboratory Results - last 24 hr 08/13/23 08/13/23 08/13/23 17:49 17:49 18:43 WBC 52.21 H* RBC 4.71 Hgb 14.0 Hct 43.1 MCV 92 MCH 29.7 MCHC 32.5 RDW 12.6 Plt Count 151 MPV 10.9 Immature Gran % 0.0 Neutrophils % 21.0 Lymphocytes % 61.0 Atypical Lymphs % 13 Monocytes % 5.0 Eosinophils % 0.0 Basophils % 0.0 Nucleated RBC % 0.0 Absolute Neutrophils 10.96 H Absolute Lymphocytes 38.64 H Absolute Monocytes 2.61 H Absolute Eosinophils 0.00 Absolute Basophils 0.00 RBC Morphology Normal Sodium 134 L Potassium 3.8 Chloride 97 L Carbon Dioxide 25.3 Anion Gap 11.7 H BUN 18 Creatinine 0.9 Est GFR (CKD-EPI 2020) 67.08 Glucose 164 H Calcium 8.6 Magnesium 1.7 L Total Bilirubin 0.7 AST 24 ALT 27 Alkaline Phosphatase 87 Troponin I < 50 Total Protein 6.6 Albumin 3.6 Lipase 12 L Cancelled TSH 2.96 Urine Color Yellow Urine Clarity Clear Urine pH 6.0 Ur Specific [place] 1.010 Urine Protein Negative Urine Ketones Negative Urine Blood Large H Urine Nitrite Negative Urine Bilirubin Negative Urine Urobilinogen 0.2 Ur Leukocyte Esterase Small H Urine RBC 5-10 H Urine WBC 0-2 Ur Epithelial Cells Rare Urine Crystals Negative Urine Bacteria Negative Urine Casts Negative Urine Mucus Negative Ur Culture Indicated? No Urine Glucose 100 H 08/13/23 20:55 WBC RBC Hgb Hct MCV MCH MCHC RDW Plt Count MPV Immature Gran % Neutrophils % Lymphocytes % Atypical Lymphs % Monocytes % Eosinophils % Basophils % Nucleated RBC % Absolute Neutrophils Absolute Lymphocytes Absolute Monocytes Absolute Eosinophils Absolute Basophils RBC Morphology Sodium Potassium Chloride Carbon Dioxide Anion Gap BUN Creatinine Est GFR (CKD-EPI 2020) Glucose Calcium Magnesium Total Bilirubin AST ALT Alkaline Phosphatase Troponin I < 50 Total Protein Albumin Lipase TSH Urine Color Urine Clarity Urine pH Ur Specific [place] Urine Protein Urine Ketones Urine Blood Urine Nitrite Urine Bilirubin Urine Urobilinogen Ur Leukocyte Esterase Urine RBC Urine WBC Ur Epithelial Cells Urine Crystals Urine Bacteria Urine Casts Urine Mucus Ur Culture Indicated? Urine Glucose Last Vital Signs Temp 37.5 C 08/13/23 23:58 Pulse 70 08/13/23 23:58 Resp 14 08/13/23 23:58 BP 118/65 08/13/23 23:58 Pulse Ox 95 08/13/23 23:58 Time Spent Time spent with Patient: >75 minutes Time was spent: preparing to see the patient(eg.review tests), obtaining and/or reviewing separately otained hiistory, ordering medications,tests, procedures, referring, communicating with other health caregivers homecare, indepentently interpreting results, counseling the patient and care coordination
[2023-08-14] VITALS (7 sets, daily range): BP systolic 66–136; BP diastolic 52–80; PULSE 62–92; RESP 16–20; TEMP 36.1–37.5; O2SAT 95–97
[2023-08-14] MEDS: Temazepam 15 MG CAP PO ×2 (02:01→21:08)
[2023-08-14] MEDS: Lactated Ringers 1,000 ML 75 ML IV ×2 (03:03→15:10)
[2023-08-14 06:13] LABS: HCT 41.4 % (36.0-46.0); HGB 13.1 g/dL (11.2-15.7); MCH 29.4 pg (27.0-33.0); MCHC 31.6 % (32.0-36.0); MCV 93 fL (80-95); Platelet Count 126 10^3/uL (130-400); RBC 4.45 10^6/uL (3.93-5.22); RDW 12.7 % (11.7-14.6); RDW-SD 43.4 fL
[2023-08-14 06:15] LABS: WBC 36.37 10^3/uL (4.4-10.8)
[2023-08-14 06:30] LABS: BUN 15 mg/dL (7-18); CREATININE 0.8 mg/dL (0.55-1.02); Calcium 8.2 mg/dL (8.5-10.1); Chloride 110 mmol/L (98-107); Estimated GFR 77.27 (mL/min/1.73m2); Glucose 132 mg/dL (74-106); Potassium 3.9 mmol/L (3.5-5.1); Sodium 147 mmol/L (136-145); Troponin I < 50 ng/L (< or =60)
--- NOTE | 2023-08-14 08:43 | CCONE_ITS ---
Date of service: 08/14/23 Time of Service: 08:43 Assessment and Plan Assessment and plan (1) Atrial flutter: Status: Acute Assessment and plan: Patient has typical atrial flutter. Unless surgery is planned for her foot, Eliquis should be resumed as soon as possible. I would recommend using metoprolol succinate for rate control rather than diltiazem. An echocardiogram has been ordered and will be reviewed when available. Depending on her course, we could discuss cardioversion in 4 weeks as her anticoagulation was interrupted on admission Qualifiers: Atrial flutter type: typical Qualified Code(s): I48.3 - Typical atrial flutter (2) Foot fracture, left: Status: Acute Assessment and plan: Await orthopedic opinion Qualifiers: Fracture type: closed Encounter type: subsequent encounter History of Present Illness History of Present Illness Chief Complaint: Atrial flutter Narrative: This is a 73-year-old woman who has multiple medical problems, though none of them are specifically cardiac. She has a history of CLL for many years, as well as metastatic colon cancer for which she has been treated with Keytruda, reportedly with good response. She is followed closely by oncology She was in her usual state of health until several days prior to presentation. In attempt to get off insulin, she started taking Jardiance. She then developed diarrhea and abdominal discomfort, subsequently was lightheaded and passed out twice. She fell on her foot. She came to the hospital where she was noted to be in atrial flutter moderately rapid ventricular response. She was aware of an elevated heart rate but had no other associated symptoms. Telephone consultation was undertaken with [facility] orthopedics who recommended splinting the foot. She also had her Eliquis, taking chronically for years, held. Her last dose of Eliquis was 24 hours ago. She was prescribed oral diltiazem for rate control. Heart rate on the monitor this morning is 70, typical atrial flutter. Her EKG is otherwise normal She had an ablation for SVT in 1998. She had bilateral middle cerebral artery strokes in 2017 as well as a pulmonary embolus. That is when she was started on anticoagulation with Eliquis. Her outpatient dose is 2.5 mg twice a day Currently the patient is comfortable in bed. She is a very good historian Review of Systems Cardiovascular Cardiovascular: Reports as per HPI, Denies chest pain, Reports irregular heart rhythm, Reports lightheadedness, Denies radiating jaw, neck or arm pain and Denies dyspnea Respiratory Respiratory: Denies dyspnea PFSH All Active Problems (Updated 08/14/23 @ 08:52 by Zaria Caba MD) Hypomagnesemia (Acute) Foot fracture, left (Acute) Syncope (Chronic) Atrial flutter (Acute) Pancreas (digestive gland) works poorly (Acute) Weight loss, unintentional (Acute) Abdominal bloating (Acute) Diarrhea (Acute) Vaginal prolapse (Acute) Intrinsic sphincter deficiency (ISD) (Acute) Seborrheic keratoses (Acute) CLL (chronic lymphocytic leukemia) (Acute) Actinic keratosis (Acute) Diabetes mellitus type 2, controlled (Acute) GERD (gastroesophageal reflux disease) (Chronic) Urine incontinence (Acute) SVT (supraventricular tachycardia) (Chronic) Medical History Pelvic organ prolapse quantification stage 3 cystocele Cerebral infarction Pulmonary embolism Squamous cell carcinoma of skin Surgical History History of bowel resection (Unknown) History of repair of anterior cruciate ligament of left knee Family History Mother Diabetes Heart disease Hypertension Father Cancer Social History Smoking/Tobacco Use Status: Never Second Hand Exposure: Yes Smoking risk assessment performed?: Yes Alcohol Intake: current Alcohol Intake frequency: holidays/special occasions only Alcohol type: wine Drug use: Never Caregiver/Support person: No Household members: none Housing: house Communication Needs: None Do you need help understanding health information?: Never Pets and animals: Yes Sexually active: No Current gender identity: female What is your relationship status?: How often do you talk on the phone with friends or family?: three or more times per week How often do you get together with friends or relatives?: once per week How often do you attend rastafari or denominational services?: decline to answer Do you belong to any clubs or organized social groups?: no Panel score (0-1 are the most socially isolated patients): 1 What type of physical activity do you participate in: walking Duration: 15-30 minutes/day Frequency: daily Seatbelt use: always Drive intox 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 Exam Const Other: Well-developed well-nourished normal weight looks younger than stated age Neck Other: Neck veins are flat there are no V waves Resp Other: Lungs are clear anteriorly Cardio Other: Heart is regular without murmur or gallop Skin Other: Warm and dry Extrem Other: Not examined Results Last Vital Signs Temp 36.3 C L 08/14/23 07:43 Pulse 92 H 08/14/23 07:43 Resp 17 08/14/23 07:43 BP 136/74 08/14/23 07:43 Pulse Ox 96 08/14/23 07:43 Labs 08/14/23 05:50 08/14/23 05:50 Labs: Laboratory Results - last 24 hr 08/13/23 08/13/23 08/13/23 17:49 17:49 18:43 WBC 52.21 H* RBC 4.71 Hgb 14.0 Hct 43.1 MCV 92 MCH 29.7 MCHC 32.5 RDW 12.6 Plt Count 151 MPV 10.9 Immature Gran % 0.0 Neutrophils % 21.0 Lymphocytes % 61.0 Atypical Lymphs % 13 Monocytes % 5.0 Eosinophils % 0.0 Basophils % 0.0 Nucleated RBC % 0.0 Absolute Neutrophils 10.96 H Absolute Lymphocytes 38.64 H Absolute Monocytes 2.61 H Absolute Eosinophils 0.00 Absolute Basophils 0.00 RBC Morphology Normal Sodium 134 L Potassium 3.8 Chloride 97 L Carbon Dioxide 25.3 Anion Gap 11.7 H BUN 18 Creatinine 0.9 Est GFR (CKD-EPI 2020) 67.08 Glucose 164 H Calcium 8.6 Magnesium 1.7 L Total Bilirubin 0.7 AST 24 ALT 27 Alkaline Phosphatase 87 Troponin I < 50 Total Protein 6.6 Albumin 3.6 Lipase 12 L Cancelled TSH 2.96 Urine Color Yellow Urine Clarity Clear Urine pH 6.0 Ur Specific [place] 1.010 Urine Protein Negative Urine Ketones Negative Urine Blood Large H Urine Nitrite Negative Urine Bilirubin Negative Urine Urobilinogen 0.2 Ur Leukocyte Esterase Small H Urine RBC 5-10 H Urine WBC 0-2 Ur Epithelial Cells Rare Urine Crystals Negative Urine Bacteria Negative Urine Casts Negative Urine Mucus Negative Ur Culture Indicated? No Urine Glucose 100 H 08/13/23 08/14/23 20:55 05:50 WBC 36.37 H* RBC 4.45 Hgb 13.1 Hct 41.4 MCV 93 MCH 29.4 MCHC 31.6 L RDW 12.7 Plt Count 126 L MPV 11.0 Immature Gran % Neutrophils % Lymphocytes % Atypical Lymphs % Monocytes % Eosinophils % Basophils % Nucleated RBC % Absolute Neutrophils Absolute Lymphocytes Absolute Monocytes Absolute Eosinophils Absolute Basophils RBC Morphology Sodium 147 H D Potassium 3.9 Chloride 110 H Carbon Dioxide 28.0 Anion Gap 9.0 BUN 15 Creatinine 0.8 Est GFR (CKD-EPI 2020) 77.27 Glucose 132 H Calcium 8.2 L Magnesium Total Bilirubin AST ALT Alkaline Phosphatase Troponin I < 50 < 50 Total Protein Albumin Lipase TSH Urine Color Urine Clarity Urine pH Ur Specific [place] Urine Protein Urine Ketones Urine Blood Urine Nitrite Urine Bilirubin Urine Urobilinogen Ur Leukocyte Esterase Urine RBC Urine WBC Ur Epithelial Cells Urine Crystals Urine Bacteria Urine Casts Urine Mucus Ur Culture Indicated? Urine Glucose
[2023-08-14] MEDS: Potassium Chloride 20 MEQ TABCR PO ×2 (09:06→20:30)
[2023-08-14] MEDS: Acetaminophen 325 MG TAB 650 MG PO ×2 (09:06→20:29)
[2023-08-14] MEDS: Magnesium Oxide 400 MG TAB PO ×2 (09:08→20:29)
[2023-08-14] MEDS: Sertraline 50 MG TAB PO (09:08)
[2023-08-14] MEDS: Multivitamin TAB 1 TAB PO (09:08)
[2023-08-14] MEDS: Normal Saline Flush 10 ML SYR IVP ×2 (09:10→20:31)
[2023-08-14] MEDS: Metoprolol 25 MG TAB PO (09:19)
[2023-08-14] MEDS: Creon, Lipase 24,000 CAPCR 3 CAP PO ×2 (12:12→16:50)
--- NOTE | 2023-08-14 13:30 | DI.US_ITS ---
APPROVED REPORT EXAM: Comprehensive 2D, Doppler, and color-flow Echocardiogram Patient Location: In-Patient Room/Bed: 226 Transcript Evaluator: Conner Shah RDCS (AE) Indications: Syncope, new onset atrial flutter with RVR Conclusion Normal left ventricular wall thickness and chamber size. EF is 55-60%. Wall motion is normal Normal right ventricular size and function Left atrium is normal in size. Right atrium is moderately dilated Trileaflet aortic valve without stenosis or regurgitation Mitral annular calcification, trace mitral regurgitation Mild to moderate tricuspid regurgitation Estimated right ventricular systolic pressure is 30 mmHg Wall motion Left Ventricle The left ventricle is normal size. The left ventricular systolic function is normal. The left ventric ular ejection fraction is within the normal range. There is normal left ventricular wall thickness. T here is normal LV segmental wall motion. There is no ventricular septal defect visualized. LVEF is 55 -60%. Right Ventricle The right ventricle is normal size. The right ventricular systolic function is normal. Atria The left atrium size is normal. Right atrium is moderately dilated. The interatrial septum is intact with no evidence for an atrial septal defect. Aortic Valve The aortic valve is normal in structure. Aortic valve is trileaflet. There is no aortic valvular sten osis. No aortic regurgitation is present. Mitral Valve Moderate mitral annular calcification. No evidence of mitral valve stenosis. Trace mitral regurgitati on. Tricuspid Valve The tricuspid valve is normal in structure. There is no tricuspid valve stenosis. Mild to moderate tr icuspid regurgitation. The RVSP is 30.4 mmHg. Pulmonic Valve The pulmonary valve is normal in structure. There is no pulmonic valvular stenosis. There is no pulmo pennie valvular regurgitation. Great Vessels The aortic root is normal in size. The ascending aorta is normal in size. Aortic arch is not well vis ualized. IVC is normal in size and collapses >50% with inspiration. Pericardium There is no pericardial effusion. 2D Dimensions IVSD d PLAX 0.92 cm F: 0.6-1.0 Ao Root d 2.62 cm F: 2.7 - 3.3 LVPW d PLAX 0.89 cm F: 0.6 - 1.0 Ao Asc Diam d 3.17 cm F: 2.3 - 3.1 LVID d PLAX 4.55 cm F: 3.8 - 5.2 LVDs 3.25 cm F: 2.2 - 3.5 LV EF Teichholz 55.2 % FS 28.58 % LV EDV (Teich) 94.9 mL LV ESV (Teich) 42.5 mL Stroke Vol Index (Teich) 30.99 M-Mode TAPSE 2.19 cm (M/F) >1.7 Auto EF LV EDV A4C 97.3 mL LV EDV A2C 111.7 mL LV EDV BP 103.4 mL LV ESV A4C 44.1 mL LV ESV A2C 48.3 mL LV ESV BP 46.9 mL LVEF(%) A4C 54.7 % LVEF(%) A2C 56.8 % LVEF(%) BP 54.6 % LV SV A4C 53.2 ml LV SV A2C 63.5 ml LV SV BP 56.5 ml LV CO A4C 3.5 L/min LV CO A2C 4.3 L/min LV CO BP 3.9 L/min HR A4C 66.42 BPM HR A2C 67.80 BPM LV EDV Index (BP) LA Volume LA Length A4C 4.1 cm LA Length A2C 5.0 cm LA Area A4C s 7.51 cm2 LA Area A2C s 15.70 cm2 LA Vol A4C A-L 11.81 mL LA Vol A2C A-L 41.72 mL LA Vol Biplane A-L 24.7 mL LA Vol/BSA A4C A-L LA Vol/BSA A2C A-L LA Vol/BSA BP A-L 14.6 mL/m2 LA Vol A4C MOD 11.1 mL LA Vol A2C MOD 38.8 mL LA Vol BP MOD 22.8 mL RA Volume RA Area A4C 12.5 cm2 RA ESV A4C (A-L) 31.8mL RA Vol/BSA A4C A-L RA Length A4C 4.2 cm RA ESV A4C (MOD) 31.9mL LV Diastology MV E' medial 0.139 (>0.07 m/s) MV E Vmax 1.25 (0.4-1.3 m/s) MV E/E' MED 8.98 (<14) MV A Vmax 0.95 (0.4-1.3 m/s) MV E' lateral 0.201 (>0.1 m/s) E/A Ratio 1.3 MV E/E' LAT 6.20 (<14) MV E' Average 0.170 m/s MV E/E'(average) 7.34 Aortic Valve AoV Vmax 1.18 m/s LVOT Vmax 0.83 m/s AoV Peak Grad 5.5 mmHg LVOT Peak Grad 2.8 mmHg AoV Area (Vmax) 1.85 cm2 LVOT VTI 0.183 m AoV VTI 0.232 m LVOT Mean Grad 1.6 mmHg AoV Mean Hema. 0.91 m/s LVOT SV 47.90 mL AoV Mean Grad 3.6 mmHg LVOT Diam s 1.80 cm AoV Area (VTI) 2.06 cm2 Velocity Ratio 0.70 Mitral Valve MV DT 124 (160-240 msec) Pulmonary Valve PV Vmax 0.89 (0.5-1.5 m/s) PV Peak Grad 3.1 mmHg PV Mean Hema 0.61 m/s PV Mean Grad 1.7 mmHg Tricuspid Valve RA Pressure 3.00 mmHg TR Vmax 2.62 m/s TR Peak Grad 27.4 mmHg RVSP (TR) 30.4 mmHg
--- NOTE | 2023-08-14 15:43 | PGE_ITS ---
Date of Service Date of service: 08/14/23 Time of Service: 15:43 Assessment and Plan Assessment and plan (1) Atrial flutter: Status: Acute Assessment and plan: Continue apixaban. I resumed a diet put her on metoprolol but we will reduce the dose to 12.5 mg p.o. twice daily. If her rate is well-controlled we will plan for discharge tomorrow morning. Qualifiers: Atrial flutter type: typical Qualified Code(s): I48.3 - Typical atrial flutter (2) Foot fracture, left: Status: Acute Assessment and plan: Orthopedic consult has assured me that she does not require surgery and can ambulate with touchdown weightbearing as tolerated with use of a walker. Will arrange for follow-up outpatient visiting nurse and home PT follow-up at home. Will have her follow-up with the orthopedist as an outpatient. Qualifiers: Encounter type: initial encounter Fracture type: closed Qualified Code(s): S92.902A - Unspecified fracture of left foot, initial encounter for closed fracture Subjective Subjective Interval history since last seen: Patient presented yesterday after syncope associated w/ recent GI symptoms (diarrhea, abdominal discomfort and decreased PO intake) associated w/ recent initiation of Jardiance (had similar effects from metformin). However she was also found to be in new onset atrial flutter (although has hx of SVT w/ ablation), she sustained fractures to left 4th adn 5th metatarsals. She was put in a splint for this and made NPO. Apixaban (which she has been taking for years d/t prior P.E. treated w/ TNK) was held since yesterday anticipating possible surgery on her left foot. However, I texted Dr. Pulliam and he has indicated that this would not require operation but treat w/ splint and touch down weight bearing as tolerated w/ walker. Dr. Caba has seen her and recommended switching from diltiazem to metoprol. She was given metoprolol 25 mg this morning w/ subsequent drop in her BP which has rebounded w/ iv fluids. She is feeling better now. Exam Narrative Exam Narrative: Elderly white female sitting up in bed in no acute distress alert and orient x 3 not dyspneic not having any palpitations Heart is regular nontachycardic no appreciable murmur rub or gallop Lungs are clear to auscultation Abdomen soft nondistended nontender Lower extremities without edema left foot and ankle are in a splint Objective Last Vital Signs Temp 37.1 C 08/14/23 15:18 Pulse 74 08/14/23 15:18 Resp 17 08/14/23 15:18 BP 117/61 08/14/23 15:18 Pulse Ox 97 08/14/23 15:18 Laboratory Results - last 24 hr 08/13/23 08/13/23 08/13/23 17:49 17:49 18:43 WBC 52.21 H* RBC 4.71 Hgb 14.0 Hct 43.1 MCV 92 MCH 29.7 MCHC 32.5 RDW 12.6 Plt Count 151 MPV 10.9 Immature Gran % 0.0 Neutrophils % 21.0 Lymphocytes % 61.0 Atypical Lymphs % 13 Monocytes % 5.0 Eosinophils % 0.0 Basophils % 0.0 Nucleated RBC % 0.0 Absolute Neutrophils 10.96 H Absolute Lymphocytes 38.64 H Absolute Monocytes 2.61 H Absolute Eosinophils 0.00 Absolute Basophils 0.00 RBC Morphology Normal Sodium 134 L Potassium 3.8 Chloride 97 L Carbon Dioxide 25.3 Anion Gap 11.7 H BUN 18 Creatinine 0.9 Est GFR (CKD-EPI 2020) 67.08 Glucose 164 H Calcium 8.6 Magnesium 1.7 L Total Bilirubin 0.7 AST 24 ALT 27 Alkaline Phosphatase 87 Troponin I < 50 Total Protein 6.6 Albumin 3.6 Lipase 12 L Cancelled TSH 2.96 Urine Color Yellow Urine Clarity Clear Urine pH 6.0 Ur Specific [place] 1.010 Urine Protein Negative Urine Ketones Negative Urine Blood Large H Urine Nitrite Negative Urine Bilirubin Negative Urine Urobilinogen 0.2 Ur Leukocyte Esterase Small H Urine RBC 5-10 H Urine WBC 0-2 Ur Epithelial Cells Rare Urine Crystals Negative Urine Bacteria Negative Urine Casts Negative Urine Mucus Negative Ur Culture Indicated? No Urine Glucose 100 H 08/13/23 08/14/23 20:55 05:50 WBC 36.37 H* RBC 4.45 Hgb 13.1 Hct 41.4 MCV 93 MCH 29.4 MCHC 31.6 L RDW 12.7 Plt Count 126 L MPV 11.0 Immature Gran % Neutrophils % Lymphocytes % Atypical Lymphs % Monocytes % Eosinophils % Basophils % Nucleated RBC % Absolute Neutrophils Absolute Lymphocytes Absolute Monocytes Absolute Eosinophils Absolute Basophils RBC Morphology Sodium 147 H D Potassium 3.9 Chloride 110 H Carbon Dioxide 28.0 Anion Gap 9.0 BUN 15 Creatinine 0.8 Est GFR (CKD-EPI 2020) 77.27 Glucose 132 H Calcium 8.2 L Magnesium Total Bilirubin AST ALT Alkaline Phosphatase Troponin I < 50 < 50 Total Protein Albumin Lipase TSH Urine Color Urine Clarity Urine pH Ur Specific [place] Urine Protein Urine Ketones Urine Blood Urine Nitrite Urine Bilirubin Urine Urobilinogen Ur Leukocyte Esterase Urine RBC Urine WBC Ur Epithelial Cells Urine Crystals Urine Bacteria Urine Casts Urine Mucus Ur Culture Indicated? Urine Glucose Time Spent with Patient Time Spent with Patient: 25-34 minutes Time was spent: preparing to see the patient(eg.review tests), ordering medications,tests, procedures, referring, communicating with other health hearing care practitioner, indepentently interpreting results, counseling the patient and care coordination
--- NOTE | 2023-08-14 16:36 | PDOC.CMIN ---
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 CURRENT FUNCTIONAL STATUS:: Anahi is currently ambulating, stand by assist with a rolling walker. She is eating well per RN. CM following. Has patient been provided with info about the portal/API?: Yes Did the patient sign up for the portal?: Yes CODE STATUS:: DNR/DNI INSURANCE COVERAGE / FINANCIAL ISSUES:: MCR, AARP CURRENT HOME/COMMUNITY SERVICES/EQUIPMENT:: [facility] Oncology, previously followed by [facility] Endocrinology. PRIMARY CARE PHYSICIAN:: Silvina Dodd POTENTIAL DISCHARGE NEEDS:: Follow up appointments. PATIENT/FAMILY EDUCATION NEEDS:: Review discharge instructions, discuss Ask Me Three. ANTICIPATED BARRIERS TO DISCHARGE:: None identified. TRANSPORTATION:: Via private vehicle. PLAN:: Anticipate Anahi will return home when ready per MD. She will follow up with her PCP and plan of care as prescribed. CM continues to follow. PFSH All Active Problems (Updated 08/14/23 @ 08:52 by Zaria Caba MD) Hypomagnesemia (Acute) Foot fracture, left (Acute) Syncope (Chronic) Atrial flutter (Acute) Pancreas (digestive gland) works poorly (Acute) Weight loss, unintentional (Acute) Abdominal bloating (Acute) Diarrhea (Acute) Vaginal prolapse (Acute) Intrinsic sphincter deficiency (ISD) (Acute) Seborrheic keratoses (Acute) CLL (chronic lymphocytic leukemia) (Acute) Actinic keratosis (Acute) Diabetes mellitus type 2, controlled (Acute) GERD (gastroesophageal reflux disease) (Chronic) Urine incontinence (Acute) SVT (supraventricular tachycardia) (Chronic) Medical History Pelvic organ prolapse quantification stage 3 cystocele Cerebral infarction Pulmonary embolism Squamous cell carcinoma of skin Surgical History History of bowel resection (Unknown) History of repair of anterior cruciate ligament of left knee Family History Mother Diabetes Heart disease Hypertension Father Cancer Social History Smoking/Tobacco Use Status: Never Second Hand Exposure: Yes Smoking risk assessment performed?: Yes Alcohol Intake: current Alcohol Intake frequency: holidays/special occasions only Alcohol type: wine Drug use: Never Caregiver/Support person: No Household members: none Housing: house Communication Needs: None Do you need help understanding health information?: Never Pets and animals: Yes Sexually active: No Current gender identity: female What is your relationship status?: How often do you talk on the phone with friends or family?: three or more times per week How often do you get together with friends or relatives?: once per week How often do you attend anglican or pentecostal services?: decline to answer Do you belong to any clubs or organized social groups?: no Panel score (0-1 are the most socially isolated patients): 1 What type of physical activity do you participate in: walking Duration: 15-30 minutes/day Frequency: daily Seatbelt use: always Drive intox or ride w/intox day haul or farm charter bus driver: No SDOH(Care Management) Screening Will the Patient Participate in the Screening?: Yes Do you worry about having a steady place to live?: no Problems where you live: no known problems In the past 12 months, have you had to go without electric, gas, oil or water in your home?: no Have you or anyone in your house had to go without enough food to eat?: no Has lack of transportation kept you from medical appointments or from doing things needed for daily living?: no Has anyone in your support network made you feel unsafe for any reason?: no
[2023-08-14] MEDS: Apixaban 2.5 MG TAB PO (20:30)
[2023-08-14] MEDS: Metoprolol 12.5 MG TAB PO (20:30)
--- NOTE | 2023-08-14 21:22 | W.ORTHOCONSU ---
Date of service: 08/14/23 Time of Service: 16:40 History of Present Illness History of Present Illness Chief Complaint: Left Foot Pain Narrative: Anahi is a 73-year-old female who has multiple medical comorbidities but has developed new atrial fibrillation which led to some falls at home with near syncope. During one of the falls she felt the left foot was wedged her knee to get cabinets when she felt going down the twisting motion. She had immediate pain and difficulty with weightbearing. She is able to ambulate on her heel but continue to not feel well and thus presented to the emergency department. She was diagnosed with fourth and fifth metatarsal fractures. She also has been diagnosed with atrial flutter which is new for her. She has been placed on posterior slab splint. She finds it too bulky to manage any weightbearing restrictions or touchdown weightbearing. She was previously putting weight on the heel which is relatively tolerable. She denies numbness or tingling. She had no break in the skin. She denies fevers or chills. Consult Reason Left fourth and fifth metatarsal fractures Assessment and Plan Assessment and plan (1) Fracture of fourth metatarsal bone of left foot: Status: Acute (2) Fracture of fifth metatarsal bone of left foot: Status: Acute Assessment and plan: Anahi is a 73-year-old female who suffered a fall which trapped the left foot into the cabinet resulting in a fracture of the fourth and fifth metatarsal. These are long oblique fractures and should heal with nonoperative measures. While there is some mild displacement there is no significant displacement to suggest that any surgery be required. She was placed in a posterior slab splint. I did discuss treatment options with her. Ideally the posterior slab splint will allow the soft tissues to settle as well as for initial healing to happen. Unfortunately, she does not feel she can manage with the splint. She has been able to weight-bear on the heel with minimal discomfort. She does live alone and wants feel return home. Therefore I do think is reasonable to consider a fracture walker boot. She would be weightbearing as tolerated although full weightbearing will likely be painful and not possible at first. She would prefer this option compared to the current splint that she has. Therefore, I will place her into a short fracture walker boot. She may bear weight as tolerated, however, likely needing support from walker or crutches. This should heal without difficulty although may take some time. All of her questions were answered. She will be placed into a fracture walker boot tomorrow morning. Review of Systems Narrative: Does have some frequent urination likely due to fluids. Resolving diarrhea. Improved lightheadedness All systems reviewed & are unremarkable except as noted in HPI and below PFSH All Active Problems (Updated 08/14/23 @ 21:45 by Blayne Pulliam MD) Fracture of fifth metatarsal bone of left foot (Acute) Fracture of fourth metatarsal bone of left foot (Acute) Hypomagnesemia (Acute) Foot fracture, left (Acute) Syncope (Chronic) Atrial flutter (Acute) Pancreas (digestive gland) works poorly (Acute) Weight loss, unintentional (Acute) Abdominal bloating (Acute) Diarrhea (Acute) Vaginal prolapse (Acute) Intrinsic sphincter deficiency (ISD) (Acute) Seborrheic keratoses (Acute) CLL (chronic lymphocytic leukemia) (Acute) Actinic keratosis (Acute) Diabetes mellitus type 2, controlled (Acute) GERD (gastroesophageal reflux disease) (Chronic) Urine incontinence (Acute) SVT (supraventricular tachycardia) (Chronic) Medical History Pelvic organ prolapse quantification stage 3 cystocele Cerebral infarction Pulmonary embolism Squamous cell carcinoma of skin Surgical History History of bowel resection (Unknown) History of repair of anterior cruciate ligament of left knee Family History Mother Diabetes Heart disease Hypertension Father Cancer Social History Smoking/Tobacco Use Status: Never Second Hand Exposure: Yes Smoking risk assessment performed?: Yes Alcohol Intake: current Alcohol Intake frequency: holidays/special occasions only Alcohol type: wine Drug use: Never Caregiver/Support person: No Household members: none Housing: house Communication Needs: None Do you need help understanding health information?: Never Pets and animals: Yes Sexually active: No Current gender identity: female What is your relationship status?: How often do you talk on the phone with friends or family?: three or more times per week How often do you get together with friends or relatives?: once per week How often do you attend roman catholic or jainism services?: decline to answer Do you belong to any clubs or organized social groups?: no Panel score (0-1 are the most socially isolated patients): 1 What type of physical activity do you participate in: walking Duration: 15-30 minutes/day Frequency: daily Seatbelt use: always Drive intox or ride w/intox delivery driver/customer service: No Exam Narrative Exam Narrative: Sitting up in hospital bed. No acute distress. Alert and orient x 3. Valuation the left foot shows a well-placed splint. Minimal swelling. Ecchymosis seen within the forefoot. She endorses sensation to light touch over the deep and superficial peroneal nerve and tibial nerve. She is able to actively flex and extend the toes. No significant malangulation or rotation of the toes themselves with normal gross appearance. Results Last Vital Signs Temp 37.5 C 08/14/23 19:20 Pulse 80 08/14/23 19:20 Resp 16 08/14/23 19:20 BP 133/63 08/14/23 19:20 Pulse Ox 96 08/14/23 19:20 Labs 08/14/23 05:50 08/14/23 05:50 Labs: Laboratory Results - last 24 hr 08/13/23 08/14/23 20:55 05:50 WBC 36.37 H* RBC 4.45 Hgb 13.1 Hct 41.4 MCV 93 MCH 29.4 MCHC 31.6 L RDW 12.7 Plt Count 126 L MPV 11.0 Sodium 147 H D Potassium 3.9 Chloride 110 H Carbon Dioxide 28.0 Anion Gap 9.0 BUN 15 Creatinine 0.8 Est GFR (CKD-EPI 2020) 77.27 Glucose 132 H Calcium 8.2 L Troponin I < 50 < 50 Imaging Imaging Studies: X-ray of the left foot shows long oblique fractures of the shaft of the fourth and fifth metatarsals. There is some mild translation.
[2023-08-15 03:06] VITALS: BP 114/74; PULSE 69; RESP 20; O2SAT 98
[2023-08-15] MEDS: Lactated Ringers 1,000 ML 75 ML IV (04:37)
--- NOTE | 2023-08-15 07:18 | W.PM.PROGNOT ---
Date of Service Date of service: 08/15/23 Time of Service: 07:05 Assessment and Plan Assessment and plan (1) Fracture of fifth metatarsal bone of left foot: Status: Acute (2) Fracture of fourth metatarsal bone of left foot: Status: Acute Assessment and plan: Anahi is a 73-year-old who has long oblique fractures of the fourth and fifth metatarsals with mild displacement. As per discussion yesterday and as detailed in the note, plan was to transition to a fracture walker boot. I placed her into a short air walker boot. This medium size fit her with appropriately but was close to being too small in the length direction. However, with the heel fully seated the boot was of appropriate size. She tolerated the placement of the boot well. I reviewed the boot with her briefly. She may now weight-bear as tolerated with the boot on although she may not be able to place all her weight on the foot for some time and may utilize the heel primarily until she feels ready for more complete weightbearing through the entirety of the plantar foot. She may remove the boot as needed for hygiene and for skin checks. While in bed or relaxing without weight on the left foot, the straps may be released or relaxed. However, the straps, particularly that about the ankle and the dorsal foot, should be secure before mobilization. Follow-up with orthopedics in 2 to 4 weeks. Subjective Subjective Interval history since last seen: Anahi has had no acute changes. I saw her this morning for placement of the fracture walker boot as described and discussed previously when I saw her yesterday. Pain has been relatively well-controlled with Tylenol. Objective Last Vital Signs Temp 36.2 C L 08/14/23 22:58 Pulse 69 08/15/23 03:06 Resp 20 08/15/23 03:06 BP 114/74 08/15/23 03:06 Pulse Ox 98 08/15/23 03:06 Time Spent with Patient Time Spent with Patient: 25-34 minutes Time was spent: obtaining and/or reviewing separately otained hiistory, counseling the patient and care coordination
[2023-08-15 08:18] VITALS: BP 112/82; PULSE 74; RESP 17; TEMP 36; O2SAT 97
[2023-08-15] MEDS: Multivitamin TAB 1 TAB PO (08:18)
[2023-08-15] MEDS: Acetaminophen 325 MG TAB 650 MG PO (08:18)
[2023-08-15] MEDS: Metoprolol 12.5 MG TAB PO (08:18)
[2023-08-15] MEDS: Creon, Lipase 24,000 CAPCR 3 CAP PO ×2 (08:18→11:58)
[2023-08-15] MEDS: Potassium Chloride 20 MEQ TABCR PO (08:19)
[2023-08-15] MEDS: Apixaban 2.5 MG TAB PO (08:19)
[2023-08-15] MEDS: Sertraline 50 MG TAB PO (08:19)
[2023-08-15] MEDS: Insulin Glargine 300 UNITS/3 ML PEN 10 UNITS SC (08:19)
[2023-08-15] MEDS: Magnesium Oxide 400 MG TAB PO (08:19)
[2023-08-15] MEDS: Normal Saline Flush 10 ML SYR IVP ×2 (08:20→12:00)
[2023-08-15] MEDS: Metoprolol CR 25 MG TABCR 12.5 MG PO (09:07)
--- NOTE | 2023-08-15 09:14 | PGE_ITS ---
Date of Service Date of service: 08/15/23 Time of Service: 09:14 Assessment and Plan Assessment and plan (1) Atrial flutter: Status: Acute Assessment and plan: intermittent rate control. at rest seems well controlled but elevates into the 120 to 130 range w/ activity. will change from lopressor to Toprol XL, monitor HR response today as she begins P.T. Qualifiers: Atrial flutter type: typical Qualified Code(s): I48.3 - Typical atrial flutter (2) Foot fracture, left: Status: Acute Assessment and plan: patient fitted for walking boot by Dr. Pulliam this morning . P.T. ordered, WBAT, if atrial flutter rate is controlled w/ Toprol XL today, then will dc her home later this afternoon. Qualifiers: Encounter type: initial encounter Fracture type: closed Qualified Code(s): S92.902A - Unspecified fracture of left foot, initial encounter for closed fracture Subjective Subjective Interval history since last seen: Overall that Anahi is feeling better today although she can still feel some palpitations when she gets up and ambulates. Telemetry shows that at rest her atrial flutter rate is controlled in the 80s but with activity she will get up and 120s to 130s. No associated dyspnea or dizziness or chest pain. Exam Narrative Exam Narrative: Elderly female sitting up in bed having finished breakfast she is alert and oriented x 3. She now has a walking boot on her left foot. Lungs are clear to auscultation Heart is regular rate and rhythm Extremities without peripheral cyanosis or edema left foot in a walking boot Objective Last Vital Signs Temp 36 C L 08/15/23 08:18 Pulse 74 08/15/23 08:18 Resp 17 08/15/23 08:18 BP 112/82 08/15/23 08:18 Pulse Ox 97 08/15/23 08:18 Time Spent with Patient Time Spent with Patient: 25-34 minutes Time was spent: preparing to see the patient(eg.review tests), ordering medic ations,tests, procedures, referring, communicating with other health long term care administrator, indepentently interpreting results, counseling the patient and care coordination
[2023-08-15 11:00] VITALS: BP 105/77; BP 117/72; PULSE 73; PULSE 76
--- NOTE | 2023-08-15 11:01 | PT.INIE ---
PT Notes Visit Reasons: atrial flutter, syncope, left foot fracture Physical Therapy Inpatient Initial Evaluation Date: 08/15/2023 Referring Doctor: Blayne Pulliam MD PT Orders: PT CONSULT: Safety consult for D/C Precautions: Fall. Standard. WBAT on the L LE with fracture boot on and AD per Dr. Pulliam. Patient Profile/Admitting Diagnosis: Anahi is a 73-year-old female who presented to the ED due to trauma to the left foot with a x-ray revealing mildly displaced fourth and fifth metacarpal bone fracture on the left side. Patient is being managed conservatively with use of fracture boot at this time with follow-up with orthopedic surgeon in 2 to 3 weeks. PMHX: All Active Problems Hypomagnesemia (Acute) Foot fracture, left (Acute) Syncope (Chronic) Atrial flutter (Acute) Pancreas (digestive gland) works poorly (Acute) Weight loss, unintentional (Acute) Abdominal bloating (Acute) Diarrhea (Acute) Vaginal prolapse (Acute) Intrinsic sphincter deficiency (ISD) (Acute) Seborrheic keratoses (Acute) CLL (chronic lymphocytic leukemia) (Acute) Actinic keratosis (Acute) Diabetes mellitus type 2, controlled (Acute) GERD (gastroesophageal reflux disease) (Chronic) Urine incontinence (Acute) SVT (supraventricular tachycardia) (Chronic) Medical History Pelvic organ prolapse quantification stage 3 cystocele Cerebral infarction Pulmonary embolism Squamous cell carcinoma of skin Surgical History History of bowel resection (Unknown) History of repair of anterior cruciate ligament of left knee Social History/Home Situation: Lives alone in a private home with 3 steps to enter with rails on both sides. Independent with all aspects feels prior to surgery. Daughter will be with patient for the first few days to help with her recovery and assist as needed. 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 Equipment Owned/DME: F[facility], [facility] Subjective: Reported having better pain control and more stability with use of fracture boot during weight bearing. Reported beginning pain at 2-3/10 on the left foot towards the end of ambulation activity that resolved with rest. Objective: General Observation: Mental Status: Alert and oriented as to person, place, time, and purpose. Able to pay attention, focus, and respond appropriately. Pain: 2-3/10 on the L foot after walking Vital Signs: 117/72 mmHg and 74 bpm sitting; 107/76 mmHg and 76 bpm in standing with nor reportt of symptoms ROM: Right Upper Extremity: Shoulder Flexion WFL. Shoulder abduction WFL. Elbow flexion WFL. Wrist flexion WFL. Functional opening and closing of hand WFL. Left Upper Extremity: Shoulder Flexion WFL. Shoulder abduction WFL. Elbow flexion WFL. Wrist flexion WFL. Functional opening and closing of hand WFL. Right Lower Extremity: Hip flexion WFL. Hip abduction WFL. Knee flexion WFL. Ankle dorsiflexion WFL. Ankle plantarflexion WFL. Left Lower Extremity: Hip flexion WFL. Hip abduction WFL. Knee flexion WFL. Ankle dorsiflexion NT. Ankle plantarflexion NT Strength: Right Upper Extremity: Shoulder flexors 5/5. Shoulder abductors 5/5. Elbow flexors 5/5. Elbow extensors 5/5. Fire Coordinator strong. Left Upper Extremity: Shoulder flexors 5/5. Shoulder abductors 5/5. Elbow flexors 5/5. Elbow extensors 5/5. Fire Coordinator strong. Right Lower Extremity: Hip flexors 4/5. Hip abductors 4/5. Knee flexors 4/5. Knee extensors 4/5. Ankle dorsiflexors 4/5. Ankle plantarflexors 4/5. Left Lower Extremity: Hip flexors 4/5. Hip abductors 4/5. Knee flexors 4/5. Knee extensors 4/5. Ankle dorsiflexors NT. Ankle plantarflexors NT. Bed Mobility/Transfers: Minimal cueing provided for use of B hands as needed for support, movement sequence, AD management, and posture to reduce fall risk and minimize pain report Rolling independent Supine to sit independent Sit to supine independent Sit to stand independent with FWW Stand to sit independent with FWW Bed to reclining chair independent with FWW Gait: Facilitated safe and correct performance of level surface ambulation covering a distance of 250 feet using front wheeled walker with step through gait pattern with weightbearing as tolerated on the left side using fracture boot with minimal verbal cueing for weightbearing precaution, posture, safe gait pattern, and AD management. Balance: Static Sitting: Normal Dynamic Sitting: Normal Static Standing: Fair Dynamic Standing: Fair Special Tests: Mobility Limitations Standardized Measure [facility] AM-PAC 6 clicks Basic Mobility Inpatient Short Form: Raw Score: 23 CMS Score: 11% deficit Informed Consent/Education: Patient was instructed in purpose of PT consult and plan of care. Agreeable to proceed with established PT POC to achieve personal goals. Assessment: Patient presents with clinical signs and symptoms consistent with current/admitting diagnoses that have resulted to mobility limitations, gait instability, generalized weakness, and overall ADL decline as demonstrated by the following impairment level findings: 1. Decreased strength to L foot major muscle groups 2. Impaired standing balance 3. Impaired activity tolerance Impairments are contributing to the following functional limitations: 1. Difficulty with ambulation without assistive device 2. Increased completion time for mobility ADL performance Patient is [place] 54780 moderate complexity based on the following: History: 73-year-old female with past medical history as indicated above Examination: Demonstrable impairment in strength, balance, and mobility level with underlying impairments and functional limitations as exhibited above as well as deficit score of 11% utilizing the [facility] Mobility Inpatient Short Form Presentation: Evolving Decision Makin moderate complexity Goals: Goals X1 week 1. Supine-Sit independent 2. Sit-Supine independent 3. Sit-Stand independent 4. Stand-Sit independent with FWW 5. Bed-Chair independent with FWW 6. Chair-Bed independent with FWW 7. Independent gait on level surface with use of FWW for at least 300 feet without report of pain nor dyspnea 8. Independent stair negotiation while holding onto B rails for at least 5 steps without report of pain nor dyspnea 9. Independent with home exercise program 10. Good static and dynamic standing balance/tolerance Plan of Care/Treatment Plan: 1-2x/day, 7 days/week x 1 week. Plan of care has been reviewed with the FIELD PIPE LINES SUPERVISOR providing the service under Physical Therapy direction. Initiate Physical Therapy intervention for pain management as needed, strengthening, bed mobility, transfers, gait, stairs, balance training, and use of assistive device. DISCHARGE RECOMMENDATIONS: [X] Home with no services. Home when medically cleared by hospitalist/surgeon. No equipment needs at this time. [] Home with services [specify] [] Home with outpatient PT [] [] SNF for continued rehabilitation [] [] Detention Care [] [] SNF versus LTC based on ability to participate and progress [] TREATMENT CODE/TIME: 9716 2 x 27 minutes for 1 unit (11:01-11:08). Thank you for the opportunity to participate in the care of this patient. Marj Márquez PT, DPT, CLT [facility] [place], [place]
[2023-08-15 12:15] VITALS: BP 117/71; PULSE 73; RESP 17; TEMP 37; O2SAT 97
--- NOTE | 2023-08-15 13:22 | PT.INTREAT ---
PT Notes Visit Reasons: atrial flutter, syncope, left foot fracture Date: 08/15/2023 PRECAUTIONS: WBAT with walk boot SUBJECTIVE: Pt in recliner when approached for therapy this afternoon, pt agreed to participating with therapy. OBJECTIVE: ? VITALS: Monitored by nursing Gait Training 20527 15mins: Direct one-on-one instruction and skilled instruction in: Employing an assistive device Modified weight-bearing status Movement sequencing Turning and movement with proper form Provided verbal cues for equipment management and technique Provided instruction in gait pattern Patient education regarding pacing and breathing techniques to maximize activity tolerance? GAIT? Assistive Device: ?FWW? Weight bearing: WBAT with walk boot Assist: SBA ? Distance:??350'x1 ? Deviation: ?unremarkable? STAIRS:? ?Step to gait pattern, bilateral handrail 6x4, 4x6, SBA ? Provided skilled instruction in proper exercise performance Provided skilled manual cues to facilitate proper muscle recruitment and/or form: ASSESSMENT:?pt tolerated activity well, pt showing making safe choices during activity. did not complain of pain during the duration of session. PLAN: Continue with balance training, global strengthening and general conditioning for improved safety, mobility and activity tolerance until pt is ready for DC. TREATMENT CODE/TIME: 92543l3 15mins (1:05-1:20pm)
--- NOTE | 2023-08-15 14:53 | DSE_ITS ---
Date of service: 08/15/23 Time of Service: 14:54 DS: Diagnosis Discharge Diagnosis (1) Atrial flutter: Status: Acute Asessment and Plan: Patient presented to the hospital after syncopal event in which she fell and sustained fractures to her left 4th and 5th metatarsal bones. This occurred after she had been started on Jardiance and developed diarrhea from this. Evaluation in the ED demonstrated her to be in atrial flutter in the 130's. Serial troponin I were negative. Patient was admitted for rate control and iv fluid hydratrion. Patient was begun on oral diltiazem after initial control w/ iv diltiazem 10 mg IVP. Cardiology consult, serial troponin levels and echocardiogram were ordered. Troponin I were normal. Echo showed normal LV and RV size and function however she has mild to moderate TR and moderate ASTRID. Dr. Caba, custodial supervisor, saw the patient in consultation. See her note for details. She recommended switching the patient from diltiazem to metoprolol. She was put on lopressor and then switched to Toprol XL at discharge. Patient should follow up w/ Dr. Caba as outpatient to discuss further treatment options i.e. continued medication rate control vs ablation. Patient kim continue her apixaban which she has been on ever since she was previously treated for P.E. (2) Fracture of fifth metatarsal bone of left foot: Status: Acute Asessment and Plan: Dr. Pulliam, orthopedics, consulted on the patient, he recommended non- operative treatment w/ immobilization w/ a walking boot. Patient was initially treated w/ a splint and then Dr. Pulliam put the patient in a walking boot. Physical therapy was consulted, they indicated that the patient could be discharged home w/ no additional services. Patient was able to ambulate w/ use of walker w/ touch down WBAT on her left foot while wearing the walking boot. Patient should follow up w/ Dr. Pulliam in 2 weeks (3) Fracture of fourth metatarsal bone of left foot: Status: Acute Asessment and Plan: as above (4) Hypomagnesemia: Status: Acute Asessment and Plan: magnesium level was found to be slightly low at 1.7. she was begun on Slo Mag supplements. a follow up magnesium level is recommended to assess repletion. (5) Syncope: Status: Chronic Asessment and Plan: as above. probably related to combo of her rapid atrial flutter and dehydration from her diarrhea. Discharge Plan Disposition Patient Disposition: Home Condition: Good Discharge Details Reason For Visit: atrial flutter, syncope, left foot fracture Admit Date/Time: 08/13/23 22:25 Admit Provider: Deshawn Arreaga Attending Provider: Deshawn Arreaga Primary Care Provider: Silvina Dodd Home Meds and New Rx's Prescriptions: New metoprolol succinate [Toprol XL] 25 mg tablet extended release 24 hr 25 mg PO DAILY Qty: 30 0RF Slow-Mag 71.5 mg tablet,delayed release (DR/EC) 71.5 mg PO DAILY Qty: 30 0RF Continued melatonin 3 mg capsule 3 mg PO HS PRN multivitamin [Daily Multi-Vitamin] Tablet 1 tab PO DAILY sertraline [Zoloft] 50 mg tablet 50 mg PO DAILY acetaminophen 650 mg tablet extended release 650 mg PO Q12H cranberry extract 250 mg capsule 250 mg PO DAILY Rx Instructions: administer with a meal lutein 20 mg capsule 20 mg PO DAILY Rx Instructions: give with meal/snack diphenoxylate-atropine [Lomotil] 2.5-0.025 mg tablet 2 tab PO TID PRN (Reason: diarrhea) Qty: 180 3RF Keytruda 25 mg/mL solution 200 mg IV Q3W Rx Instructions: administer over 30 mins cyclosporine [Restasis] 0.05 % dropperette 1 drp ophthalmic (eye) Q12H Qty: 60 3RF Creon 24,000-76,000 -120,000 unit capsule,delayed release(DR/EC) 3 cap PO .every meal Patient Comments: 3 pills with each meal, and 2 pills with each snack. insulin glargine [Lantus Solostar U-100 Insulin] 100 unit/mL (3 mL) insulin pen 10 unit subcut DAILY Eliquis 2.5 mg tablet 2.5 mg PO BID Qty: 180 3RF cholecalciferol (vitamin D3) 50 mcg/drop (2, 000 unit/drop) drops 50 mcg PO DAILY insulin glargine [Basaglar KwikPen U-100 Insulin] 100 unit/mL (3 mL) insulin pen 12 unit subcut QAM Qty: 15 4RF Hold Instructions: Formulary/Insurance Levemir FlexPen 100 unit/mL (3 mL) insulin pen 12 unit subcut QHS Qty: 15 3RF Hold Instructions: Changed by Provider (DME) pen needle, diabetic [BD Ultra-Fine Jami Pen Needle] 32 gauge x 5/32 needle See Rx Instructions .Route Qty: 100 3RF Rx Instructions: Use with insulin pen once daily temazepam 15 mg capsule 15 mg PO QHS Qty: 30 3RF (DME) blood-glucose meter [Accu-Chek Guide Glucose Meter] [facility] See Rx Instructions .Route Qty: 1 0RF Rx Instructions: As directed, test blood sugar 4 times daily (DME) Accu-Chek Guide test strips Strip See Rx Instructions .Route Qty: 100 3RF Rx Instructions: As directed, test blood sugar 3 times daily Discharge Instructions Instructions: Atrial Flutter (DC) Additional Instructions: You may walk w/ use of walker for support, be sure to wear your walker boot on your left foot whenever you are out of bed. You may perform touch down weight bearing of the left foot as tolerated. You may remove the boot when you are in bed or whenever you need to wash the foot. Monitor for any skin breaks. If you have any abrasion from the device contact your provider immediately. YOu may need to apply a soft badage over the foot and ankle such as RHETT wrap to cushion the foot as needed. Follow up w/ Dr. Pulliam in two weeks. Keep your follow up appointment w/ your primary care provider. WE will request an appointment w/ Dr. Caba from cardiology to follow up your new onset atrial flutter. Monitor your heart rate and blood pressure. Ideally your heart rate should below 90 bpm at rest and it is acceptable for your HR to rise w/ activity but should not remain over 120 bpm w/ activity and should quickly return to your resting heart rate. If you find that you have symptoms of palpitations and your heart rate is over 120 bmp, you may take an extra 1/2 dose of the Toprol XL (that is 12.5 mg) but do not repeat this but call 911 or go to nearest emergency room if your HR remains over 120 bpm despite resting and taking your Toprol XL. Monitor your blood pressure daily, goal is systolic >110 mm but not higher than 150 mm. Metoprolol succinate (Toprol XL) is a sustained release form of a beta thomas which can lower your blood pressure as well as slow the heart beat. Dr. Caba will discuss with you what your halfway options are for controlling the atrial flutter such as ablation versus medications. The immediate goals are for heart rate control and anticoagulation (which you have been on termite technician w/ Eliquis (apixaban). Stand Alone Forms: Nursing Discharge Form Referrals: Sarah.PRINCE Caceres [OTHER] - Zaria Caba MD [ [facility] STAFF PHYSICIAN] - 08/21/23 2:00 pm Silvina Dodd NP [Primary Care Provider] - 08/22/23 2:20 pm Blayne Pulliam MD [ [facility] STAFF PHYSICIAN] - (Message left with office for them to call you to make a follow up appointment. Please call them if you do not hear from them today.) Josr Simons, PT [PHYSICAL THERAPIST] - 08/31/23 11:45 am (You were also placed on the wait list if a appointment come up sooner.) Activity:: Activity as Tolerated Equipment/Supplies:: Walker Diet:: Normal Diet Discharge Orders Discharge Orders: Discharge Order (Routine); Ordered 08/15/23 Ordered By: Tad Beckman Discharge Data Discharge Date/Time-TO BE ENTERED AT DEPARTURE: 08/15/23 16:06 DS: Summary Time Spent with Patient providing and/or coordinating discharge services: Greater than 30 minutes Specific discharge activities: Interview/exam of patient; review of discharge instructions, completion of prescriptions/discharge instructions; discussion w/ nursing and CM; documentation of hospital visit Status at Discharge Functional status at discharge: uses cane/walker Overall status at discharge: patient is progressing back to baseline Mental Status: mental status grossly normal Speech and Movement: speech and movement normal Mood: congruent mood Affect: normal affect Quality:SDOH Health Related Social Needs: No Data to Display Exam Narrative Exam Narrative: Elderly female sitting up in bed having finished breakfast she is alert and oriented x 3. She now has a walking boot on her left foot. Lungs are clear to auscultation Heart is regular rate and rhythm Extremities without peripheral cyanosis or edema left foot in a walking boot Psych Mental Status: mental status grossly normal Speech and Movement: speech and movement normal Mood: congruent mood Affect: normal affect DS: Data Vitals/I&O Vitals and I&O: Vital Signs Temperature 37 C 08/15/23 12:15 Temperature Source Tympanic 08/15/23 12:15 Pulse 73 08/15/23 12:15 Pulse Rhythm Regular 08/15/23 08:20 Pulse 92 H 08/13/23 23:21 Respiratory Rate 17 08/15/23 12:15 Respiratory Effort Normal 08/15/23 08:20 Respiratory Depth Normal 08/15/23 08:20 Respiratory Pattern Normal 08/15/23 08:20 Blood Pressure 117/71 08/15/23 12:15 Blood Pressure Mean 73 08/13/23 23:21 Blood Pressure Position Sitting 08/13/23 17:06 Pulse Oximetry 97 08/15/23 12:15 Oxygen Delivery Method Room Air 08/15/23 12:15 Oxygen Flow Rate 0 08/15/23 12:15 Pain Level 0 08/15/23 12:15 Intake & Output 08/14/23 08/15/23 08/15/23 23:59 11:59 23:59 Intake Total 108 / 2019 2009.0 / 2190.0 180 / 2190.0 Output Total 2425 / 4075 600 / 1600 1000 / 1600 Balance -1340 / -2055 1410.0 / 590.0 -820 / 590.0 Intake: IV 905 / 1840 2009.0 / 2009.0 Oral 180 / 180 180 / 180 Output: Urine 2425 / 4075 600 / 1600 1000 / 1600 Other: Urine Color Yellow Yellow Yellow Urine Appearance Clear Clear Clear Urine Odor None None None Stool Size Large Stool Characteristics Formed Brown Voiding Methods Toilet Toilet Toilet PFSH All Active Problems Fracture of fifth metatarsal bone of left foot (Acute) Fracture of fourth metatarsal bone of left foot (Acute) Hypomagnesemia (Acute) Foot fracture, left (Acute) Syncope (Chronic) Atrial flutter (Acute) Pancreas (digestive gland) works poorly (Acute) Weight loss, unintentional (Acute) Abdominal bloating (Acute) Diarrhea (Acute) Vaginal prolapse (Acute) Intrinsic sphincter deficiency (ISD) (Acute) Seborrheic keratoses (Acute) CLL (chronic lymphocytic leukemia) (Acute) Actinic keratosis (Acute) Diabetes mellitus type 2, controlled (Acute) GERD (gastroesophageal reflux disease) (Chronic) Urine incontinence (Acute) SVT (supraventricular tachycardia) (Chronic) Medical History Pelvic organ prolapse quantification stage 3 cystocele Cerebral infarction Pulmonary embolism Squamous cell carcinoma of skin Surgical History History of bowel resection (Unknown) History of repair of anterior cruciate ligament of left knee Family History Mother Diabetes Heart disease Hypertension Father Cancer Social History Smoking/Tobacco Use Status: Never Second Hand Exposure: Yes Smoking risk assessment performed?: Yes Alcohol Intake: current Alcohol Intake frequency: holidays/special occasions only Alcohol type: wine Drug use: Never Caregiver/Support person: No Household members: none Housing: house Communication Needs: None Do you need help understanding health information?: Never Pets and animals: Yes Sexually active: No Current gender identity: female What is your relationship status?: How often do you talk on the phone with friends or family?: three or more times per week How often do you get together with friends or relatives?: once per week How often do you attend episcopal or hoahaoism services?: decline to answer Do you belong to any clubs or organized social groups?: no Panel score (0-1 are the most socially isolated patients): 1 What type of physical activity do you participate in: walking Duration: 15-30 minutes/day Frequency: daily Seatbelt use: always Drive intox or ride w/intox flag car driver: No Time Spent with Patient Time Spent with Patient: <45 minutes Time was spent: preparing to see the patient(eg.review tests), ordering medications,tests, procedures, referring, communicating with other health nurse behavioral health care, indepentently interpreting results, counseling the patient and care coordination
[2023-08-15 15:27] VITALS: BP 123/77; PULSE 73; RESP 17; O2SAT 97
--- NOTE | 2023-08-15 17:05 | PDOC.CMDIS ---
Date of service: 08/15/23 Time of Service: 17:05 LACE Index Scoring Tool Questions: Length of Stay (in days): 2 Was the patient admitted via the E.D.?: Yes Comorbidities: Diabetes w/o Complication E.D. Visits: 0 Answers: Total Score: 6 Risk of Readmission: Low Risk Care Management Discharge Plan Reason for Hospitalization: Atrial flutter, syncope, left foot fracture Discharge Plan: Anahi will return home with no new services, and she reports that her daughter will be staying with her for a few days to help with her transition home. Her son will drive her home via private vehicle. She will follow up with Ortho,her PCP and discharge plan of care. She is happy to be going home. Patient/Family Education Needs: Review discharge instructions and limitations, discussion of self care needs including ask me three. [facility] Health Related Social Needs: No Data to Display
== END 2023-08-15 16:06 | disposition home or self-care (01) ==
LOC: ER 23:08 → MS 23:55
PROVIDERS: Admitting Provider Emergency Medicine; Emergency Provider Physician Assistant; PCP Nurse Practitioner Family; Visit Provider Emergency Medicine
DX: I48.3 Typical atrial flutter; Z86.73 Personal history of transient ischemic attack (TIA), and cerebral infarction without residual deficits; Z79.01 Long term (current) use of anticoagulants; E11.9 Type 2 diabetes mellitus without complications; K21.9 Gastro-esophageal reflux disease without esophagitis; C91.10 Chronic lymphocytic leukemia of B-cell type not having achieved remission; S92.342A Displaced fracture of fourth metatarsal bone, left foot, initial encounter for closed fracture; S92.352A Displaced fracture of fifth metatarsal bone, left foot, initial encounter for closed fracture; E83.42 Hypomagnesemia; R55 Syncope and collapse; R19.7 Diarrhea, unspecified; Z86.711 Personal history of pulmonary embolism; I47.10 Supraventricular tachycardia, unspecified; K86.89 Other specified diseases of pancreas; W18.39XA Other fall on same level, initial encounter; R32 Unspecified urinary incontinence; R63.4 Abnormal weight loss; Z79.4 Long term (current) use of insulin; Z68.24 Body mass index [BMI] 24.0-24.9, adult
CPT/HCPCS: 28470 ×2; 00123; 36415; 36416; 80048; 80053; 82962; 83690; 85027; 93005; 93306; 96361; 96365; 96375; 97116; 97162; 99222; 99291; 70450; 71046; 73630; 81003; 81015; 83735; 84443; 84484; 85025; 93010; 99223; 99232; 99238; J1815; J3475; J3490

== ENCOUNTER → 2023-08-14 07:59 | Outpatient (BNVA) | payer MEDICARE, SELFPAY | PROVIDERS: PCP Nurse Practitioner Family; Referring Provider Nurse Practitioner Family; Visit Provider Internal Medicine Cardiovascular Disease ==

== ENCOUNTER 2023-08-18 01:12 | Outpatient (RCR) | payer MEDICARE, SELFPAY ==
[2023-07-28] MEDS: Normal Saline Flush 10 ML SYR IVP (10:36)
[2023-07-28 11:03] LABS: HCT 42.7 % (36.0-46.0); HGB 13.6 g/dL (11.2-15.7); MCH 29.6 pg (27.0-33.0); MCHC 31.9 % (32.0-36.0); MCV 93 fL (80-95); MPV 10.8 fL (8.0-11.0); Platelet Count 163 10^3/uL (130-400); RBC 4.59 10^6/uL (3.93-5.22); RDW 12.9 % (11.7-14.6); RDW-SD 43.8 fL
[2023-07-28 11:13] LABS: Absolute Eosinophil Count 1.08 10^3/uL (0.0-0.7); Absolute Lymphocyte Count 47.35 10^3/uL (1.2-3.4); Absolute Monocyte Count 0.54 10^3/uL (0.1-0.8); Absolute Neutrophil Count 4.84 10^3/uL (1.2-6.7); Diff Comment Manual Differential; RBC Morphology Normal; WBC 53.81 10^3/uL (4.4-10.8)
[2023-07-28 11:36] LABS: ALT 33 U/L (14-59); AST 24 U/L (15-37); Albumin 3.6 g/dL (3.4-5.0); Alkaline Phosphatase 86 U/L (46-116); Anion Gap 8.8 mmol/L (3-11); BUN 19 mg/dL (7-18); Bilirubin, Total 0.5 mg/dL (0.2-1.0); CO2 29.2 mmol/L (21.0-32.0); CREATININE 0.8 mg/dL (0.55-1.02); Calcium 8.6 mg/dL (8.5-10.1); Chloride 107 mmol/L (98-107); Estimated GFR 77.27 (mL/min/1.73m2); FREE T4 0.79 ng/dL (0.76-1.46); Glucose 129 mg/dL (74-106); Potassium 4.2 mmol/L (3.5-5.1); Sodium 145 mmol/L (136-145); TSH 1.94 uIU/Ml (0.36-3.74); Total Protein 6.4 g/dL (6.4-8.2)
[2023-08-18] MEDS: Normal Saline Flush 10 ML SYR IVP (12:39)
[2023-08-18 13:01] LABS: Abs Immature Grans 0.09 10^3/uL (0.0-0.06); Absolute Eosinophil Count 0.22 10^3/uL (0.0-0.7); Absolute Lymphocyte Count 35.64 10^3/uL (1.2-3.4); Absolute Monocyte Count 0.78 10^3/uL (0.1-0.8); Basophils % 0.3; Eosinophils % 0.5; HCT 40.7 % (36.0-46.0); HGB 12.8 g/dL (11.2-15.7); Immature Grans % 0.2; Lymphocytes % 82.5; MCH 29.8 pg (27.0-33.0); MCHC 31.4 % (32.0-36.0); MCV 95 fL (80-95); MPV 10.8 fL (8.0-11.0); Monocytes % 1.8; Neutrophils % 14.7; Platelet Count 162 10^3/uL (130-400); RDW 12.7 % (11.7-14.6); RDW-SD 44.2 fL
[2023-08-18 13:18] LABS: ALT 25 U/L (14-59); AST 15 U/L (15-37); Albumin 3.2 g/dL (3.4-5.0); Alkaline Phosphatase 80 U/L (46-116); Anion Gap 8.6 mmol/L (3-11); BUN 21 mg/dL (7-18); Bilirubin, Total 0.5 mg/dL (0.2-1.0); CO2 29.4 mmol/L (21.0-32.0); CREATININE 0.9 mg/dL (0.55-1.02); Calcium 8.3 mg/dL (8.5-10.1); Chloride 104 mmol/L (98-107); Estimated GFR 67.08 (mL/min/1.73m2); Glucose 205 mg/dL (74-106); Potassium 4.1 mmol/L (3.5-5.1); Sodium 142 mmol/L (136-145); Total Protein 6.1 g/dL (6.4-8.2)
[2023-08-18 13:19] LABS: Absolute Basophil Count 0.13 10^3/uL (0.0-0.2); Absolute Neutrophil Count 6.35 10^3/uL (1.2-6.7); Diff Comment Agrees w/ Instrument; RBC Morphology Normal
[2023-08-18 14:51] LABS: FREE T4 0.82 ng/dL (0.76-1.46); TSH 1.55 uIU/Ml (0.36-3.74)
[2023-08-18 21:48] LABS: CEA 2.2 ng/mL (See Note)
== END 2023-08-20 23:59 | disposition home or self-care (01) ==
LOC: INF 01:12
PROVIDERS: Nurse Practitioner Family; PCP Nurse Practitioner Family; Visit Provider Internal Medicine Hematology & Oncology
DX: C18.9 Malignant neoplasm of colon, unspecified (principal); C78.7 Secondary malignant neoplasm of liver and intrahepatic bile duct; Z79.899 Other long term (current) drug therapy; Z45.2 Encounter for adjustment and management of vascular access device
CPT/HCPCS: 36591; 80053; 82378; 84439; 84443; 85025

== ENCOUNTER 2023-08-21 08:57 | Outpatient (CLI) | payer MEDICARE, SELFPAY ==
--- NOTE | 2023-08-21 08:45 | RT.EKG_ITS ---
APPROVED REPORT Exam: Resting ECG Reason for Exam: afib/flutter Patient Location: O HR:73 bpm ECG Measurements Heart Rate 73 AXIS IN [id number] P [id number] QRSd 105 QRS 1 QT 444 T 131 QTc 490 Conclusion Atrial flutter...A-rate 294
== END 2023-08-21 08:58 | disposition home or self-care (01) ==
LOC: DI.CARD 08:58
PROVIDERS: PCP Nurse Practitioner Family; Visit Provider Internal Medicine Cardiovascular Disease
DX: I48.3 Typical atrial flutter (principal)
CPT/HCPCS: 93010

== ENCOUNTER → 2023-08-21 13:55 | Outpatient (BNVA) | payer MEDICARE, SELFPAY | PROVIDERS: PCP Nurse Practitioner Family; Referring Provider Nurse Practitioner Family; Visit Provider Internal Medicine Cardiovascular Disease | DX: I48.3 Typical atrial flutter (principal) | CPT/HCPCS: 93005; 99213 ==

== ENCOUNTER → 2023-09-01 00:32 | Outpatient (CLI) | payer MEDICARE, SELFPAY ==
--- NOTE | 2023-09-01 | DI.CT_ITS ---
Exam(s) CT CHEST/ABD/PEL W EXAM: CT CHEST/ABD/PEL W CLINICAL HISTORY: C18.9,C78.7 Colon cancer metastasized to liver. TECHNIQUE: Imaging Protocol: Axial computed tomography images with coronal and sagittal reformatted images were created and reviewed CONTRAST MATERIAL: Intravenous: Omnipaque 350 Contrast volume:100 ml Oral: Yes. Oral contrast was also administered for bowel opacification. COMPARISON: MR MR ABDOMEN WO/W from 02/28/[address] CHEST/ABD/PEL W from 06/21/2023 FINDINGS: CHEST: LUNGS: There are new mild benign-appearing subpleural increased markings in the lateral basal segment of the right lower lobe. No confluent infiltrates nor pleural effusions. No ominous appearing new lung nodules. No findings in trachea and mainstem bronchi MEDIASTINUM: There is no hilar nor mediastinal adenopathy. Visualized thyroid unremarkable. CARDIAC: Heart size is normal. There is no pericardial effusion.Caliber of the thoracic aorta is wit hin normal limits. OSSEOUS: No significant osseous lesions.No fractures.. ABDOMEN: There is no ascites. LIVER: Previously described small subcapsular hypodensity in the posterior aspect of the right hepati c lobe is unchanged. Also unchanged is a 3 millimeter hypodensity in the left hepatic lobe. There a re no new ominous hepatic lesions. GALLBLADDER/BILIARY: No obvious gallbladder pathology. CBD is not dilated. PANCREAS: Again noted to be atrophic. SPLEEN: Spleen is not enlarged. There are no intrasplenic lesions. Splenic and portal veins are choi nt. ADRENALS: Slight thickening of and is unchanged. Right adrenal gland unremarkable. KIDNEYS: No calculi nor hydronephrosis. No solid renal masses. No cysts evident. ABDOMINAL AORTA: Abdominal aorta is not enlarged. LYMPH NODES: There is no retroperitoneal nor paraaortic adenopathy. ABDOMINAL WALL: No evidence of significant anterior abdominal wall nor inguinal hernia. GI: Again noted is evidence of partial right colectomy. No evidence of bowel obstruction, free air, nor abscess. PELVIS: LYMPH NODES: There is no intrapelvic nor inguinal adenopathy. GI: No evidence of appendicitis.There is extensive diverticulosis of the sigmoid again noted. No obv ious acute diverticulitis. URINARY BLADDER: Diffuse thickening of the urinary bladder wall is noted, this is somewhat more promi nent on the right side. Recommend cystoscopy. REPRODUCTIVE: Uterus is surgically absent. No abnormal adnexal masses. There is a pessary in place in the upper deep vagina, similar to previous. OSSEOUS: No significant osseous lesions. No fractures. IMPRESSION: 1. Mild benign-appearing increased markings in the lateral basal segment of the right lower lobe, mor e so than previous. No ominous appearing lung nodules nor pleural effusions nor intrathoracic adenop athy. 2. Stable benign-appearing findings in the liver with no new metastatic lesions evident in the liver nor elsewhere in the abdomen pelvis. 3. Partial right hemicolectomy with no evidence of bowel obstruction, free air, nor abscess. 4. Urinary bladder again exhibits diffuse thickening. This is slightly more prominent on the right s mani. Probably related to chronic cystitis. Consider cystoscopy. RADIATION DOSE DELIVERED: Total DLP DATA REPOSITORY: All CT scans at this facility are submitted to the National Radiology Data Registry (NRDR) Dose Index Registry (DIR) with the [employer] (A[employer]). RADIATION OPTIMIZATION: All CT scans at this facility use at least one of these dose optimization te chniques: automated exposure control; mA and/or kV adjustment per patient size (includes targeted exa ms where dose is matched to clinical indication); or iterative reconstruction.
[2023-09-01] MEDS: Barium Sulfate 2% W/V-Berry Smoothie 450 ML BTL PO ×2 (09:10→09:11)
[2023-09-01] MEDS: Normal Saline - Diluent 50 ML VIAL IJ (10:48)
[2023-09-01] MEDS: Omnipaque 350 MG/ML 500 ML BTL-Imaging package 100 ML IJ (10:49)
== END ==
PROVIDERS: PCP Nurse Practitioner Family; Visit Provider Nurse Practitioner Family
DX: C18.2 Malignant neoplasm of ascending colon (principal); C78.7 Secondary malignant neoplasm of liver and intrahepatic bile duct
CPT/HCPCS: 74177; 96523; 71260

== ENCOUNTER 2023-09-07 00:45 | Outpatient (RCR) | payer MEDICARE, SELFPAY ==
[2023-09-01] MEDS: Normal Saline Flush 10 ML SYR IVP (08:37)
[2023-09-07] MEDS: Normal Saline Flush 10 ML SYR IVP (12:32)
[2023-09-07 12:57] LABS: Abs Immature Grans 0.09 10^3/uL (0.0-0.06); Basophils % 0.4; Eosinophils % 0.4; HCT 42.7 % (36.0-46.0); HGB 13.6 g/dL (11.2-15.7); Immature Grans % 0.2; Lymphocytes % 86.8; MCH 29.8 pg (27.0-33.0); MCHC 31.9 % (32.0-36.0); MCV 93 fL (80-95); MPV 11.1 fL (8.0-11.0); Monocytes % 1.6; Neutrophils % 10.6; Platelet Count 162 10^3/uL (130-400); RBC 4.57 10^6/uL (3.93-5.22); RDW 13.2 % (11.7-14.6); RDW-SD 44.5 fL
[2023-09-07 12:58] LABS: Absolute Lymphocyte Count 43.56 10^3/uL (1.2-3.4); Absolute Neutrophil Count 5.32 10^3/uL (1.2-6.7)
[2023-09-07 13:12] LABS: ALT 40 U/L (14-59); AST 24 U/L (15-37); Albumin 3.5 g/dL (3.4-5.0); Alkaline Phosphatase 85 U/L (46-116); Anion Gap 7.8 mmol/L (3-11); BUN 19 mg/dL (7-18); Bilirubin, Total 0.6 mg/dL (0.2-1.0); CO2 28.2 mmol/L (21.0-32.0); CREATININE 0.8 mg/dL (0.55-1.02); Calcium 8.3 mg/dL (8.5-10.1); Chloride 107 mmol/L (98-107); Estimated GFR 77.27 (mL/min/1.73m2); Glucose 120 mg/dL (74-106); Potassium 4.3 mmol/L (3.5-5.1); Sodium 143 mmol/L (136-145); Total Protein 6.4 g/dL (6.4-8.2)
[2023-09-07 13:25] LABS: WBC 50.18 10^3/uL (4.4-10.8)
[2023-09-07 13:26] LABS: Diff Comment Agrees w/ Instrument; RBC Morphology Normal
[2023-09-07 23:13] LABS: CEA 3.5 ng/mL (See Note)
== END 2023-09-19 23:59 | disposition home or self-care (01) ==
LOC: INF 00:45
PROVIDERS: Nurse Practitioner Family; PCP Nurse Practitioner Family; Visit Provider Internal Medicine Hematology & Oncology
DX: C18.9 Malignant neoplasm of colon, unspecified (principal); C78.7 Secondary malignant neoplasm of liver and intrahepatic bile duct; Z45.2 Encounter for adjustment and management of vascular access device
CPT/HCPCS: 36591; 80053; 96523; 82378; 85025

== ENCOUNTER 2023-09-11 14:42 | Outpatient (CLI) | payer MEDICARE, SELFPAY ==
--- NOTE | 2023-09-11 14:27 | DI.RAD_ITS ---
Exam(s) XR FOOT LT COMPLETE EXAM: XR FOOT LT COMPLETE CLINICAL HISTORY: F/U L FOOT FX. TECHNIQUE: 2D digital imaging was performed of the left foot. Three images were obtained. AP, obli que and lateral views were obtained. COMPARISON: CR,XR XR FOOT LT COMPLETE from 08/13/2023 FINDINGS: BONES: There has been no change in alignment of the fractures involving the 4th and 5th metatarsal nikolai erik. No bridging callus formation is seen at this time. No bony destructive lesion is seen. There i s a large plantar calcaneal spur. There is an enthesophyte at the posterior calcaneus. JOINTS: No dislocation present. SOFT TISSUE: Vascular calcifications are present. IMPRESSION: Stable alignment of the 4th and 5th metatarsal fractures. DATA REPOSITORY: RADIATION DOSE DELIVERED:
== END 2023-09-11 14:43 | disposition home or self-care (01) ==
LOC: DIORS 14:42
PROVIDERS: PCP Nurse Practitioner Family; Referring Provider Nurse Practitioner Family; Visit Provider Student in an Organized Health Care Education/Training Program
DX: S92.352D Displaced fracture of fifth metatarsal bone, left foot, subsequent encounter for fracture with routine healing; X58.XXXD Exposure to other specified factors, subsequent encounter
CPT/HCPCS: 99213; 73630

== ENCOUNTER 2023-09-12 07:12 | Day surgery (SDC) | payer MEDICARE, SELFPAY ==
--- NOTE | 2023-09-12 06:22 | W.ANESPRE ---
General Info Date of Service Date Performed: 09/12/23 Height: 5 ft 4.5 in Weight: 64.864 kg Body Mass Index (BMI): 24.1 Surgical Procedure: Operation Date: 09/12/23 08:00 Proposed Procedure Side Surgeon p Cardioversion Zaria Caba MD Meds Allergies and Home Medications Allergies Allergy/AdvReac Type Severity Reaction Status Date / Time empagliflozin AdvReac Severe Diarrhea Verified 09/12/23 07:32 [From Jardiance] atorvastatin [From Lipitor] AdvReac Intermediate leg cramps Verified 09/12/23 07:32 omeprazole [From Prilosec] AdvReac Intermediate Diarrhea Verified 09/12/23 07:32 pantoprazole [From Protonix] AdvReac Intermediate Diarrhea Verified 09/12/23 07:32 metformin AdvReac Intermediate Diarrhea Uncoded 09/12/23 07:32 doxycycline AdvReac c diff Uncoded 09/12/23 07:32 Home Medication Medication Instructions Recorded cholecalciferol (vitamin D3) 50 50 mcg PO DAILY 01/30/23 mcg/drop (2,000 unit/drop) oral drops acetaminophen 650 mg 650 mg PO Q12H 01/31/23 tablet,extended release cranberry extract 250 mg capsule 250 mg PO DAILY 01/31/23 diphenoxylate-atropine 2.5 2 tab PO TID PRN diarrhea #180 tabs 01/31/23 mg-0.025 mg tablet (Lomotil) lutein 20 mg capsule 20 mg PO DAILY 01/31/23 melatonin 3 mg capsule 3 mg PO HS PRN 01/31/23 multivitamin (Daily Multi-Vitamin 1 tab PO DAILY 01/31/23 tablet) sertraline 50 mg tablet (Zoloft) 50 mg PO DAILY 01/31/23 pembrolizumab 25 mg/mL intravenous 200 mg (8 mL) IV Q3W 03/06/23 solution (Keytruda) codxsc-ojtyneih-hdibooq 3 cap PO .every meal 04/03/23 24,000-76,000-120,000 unit capsule,delayed rel (Creon) apixaban 2.5 mg tablet (Eliquis) 2.5 mg PO BID #180 tabs 05/08/23 blood sugar diagnostic (Accu-Chek #100 ea 06/14/23 Guide test strips) blood-glucose meter (Accu-Chek #1 ea 06/14/23 Guide Glucose Meter) temazepam 15 mg capsule 15 mg PO QHS #30 caps 06/14/23 cyclosporine 0.05 % eye drops in a 1 drp ophthalmic (eye) Q12H #60 ea 08/10/23 dropperette (Restasis) magnesium chloride 71.5 mg 71.5 mg PO DAILY #30 tabs 08/15/23 (magnesium chloride) tablet,delayed release (Slow-Mag) metoprolol succinate 25 mg 25 mg PO DAILY #30 tabs 08/15/23 tablet,extended release 24 hr (Toprol XL) insulin glargine 100 unit/mL (3 8 unit subcut DAILY 08/22/23 mL) subcutaneous pen (Lantus Solostar U-100 Insulin) pen needle, diabetic 32 gauge x #100 ea 08/22/2305/25 (BD Ultra-Fine Micro Pen Needle) Current Visit Medications: Current Medications Generic Name Dose Route Start Last Admin Trade Name Freq PRN Reason Stop Dose Admin Sodium Chloride 1,000 mls @ 30 mls/hr 09/12/23 06:00 Saline 1000ml Bag IV 10/12/23 05:59 INFUSION GERRI Ringer's Solution 1,000 mls @ 30 mls/hr 09/12/23 06:00 IV 10/11/23 23:59 INFUSION [facility] IV Miscellaneous Supplies 1 each 09/12/23 06:00 Iv Access IV 10/11/23 23:59 DIRECTED GERRI Sodium Chloride 0 ml 09/12/23 06:00 Normal Saline Flush 10 Ml Syr IV 10/11/23 23:59 PRN PRN Sodium Chloride 0 ml 09/12/23 06:00 Normal Saline 10 Ml Vial IJ 10/11/23 23:59 DIRECTED PRN Sterile Water 0 ml 09/12/23 06:00 Water,Injection,Sterile 10 Ml Vial IJ 10/11/23 23:59 DIRECTED PRN PFSH Active Problems Active Problems: Problem Status Onset Code Fracture of fifth metatarsal bone of left foot S92.352A Fracture of fourth metatarsal bone of left foot S92.342A Foot fracture, left S92.902A Syncope R55 Atrial flutter I48.92 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 Weight loss, unintentional R63.4 Abdominal bloating R14.0 Vaginal prolapse N81.10 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 Seborrheic keratoses L82.1 CLL (chronic lymphocytic leukemia) C91.10 Actinic keratosis L57.0 Diabetes mellitus type 2, controlled E11.9 GERD (gastroesophageal reflux disease) K21.9 Urine incontinence R32 SVT (supraventricular tachycardia) I47.1 Medical History Medical History Colon cancer Current receiving chemo (Keytruda) Pelvic organ prolapse quantification stage 3 cystocele Cerebral infarction 2017- 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 fingers Pulmonary embolism (B) Sadal PE 2017 Squamous cell carcinoma of skin Surgical History Surgical History History of bowel resection (Unknown) History of repair of anterior cruciate ligament of left knee Tobacco Smoking/Tobacco Use Status: Never Passive smoking exposure: Yes Second hand exposure: Yes Alcohol Alcohol Intake: current Alcohol intake frequency: holidays/special occasions only Alcohol type: wine Substance Use Substance use: Never Substance use type: does not use Vital Signs and Lab Results Vital Signs Most Recent Vital Signs in EMR: Temp Pulse Resp BP Pulse Ox 36.6 C 71 16 138/73 99 09/12/23 07:49 09/12/23 07:49 09/12/23 07:49 09/12/23 07:49 09/12/23 07:49 Lab Results Blood Type / Crossmatch: No Data to Display Complete Blood Count: White Blood Count 50.18 10^3/uL (4.4-10.8) H* 09/07/23 12:00 Red Blood Count 4.57 10^6/uL (3.93-5.22) 09/07/23 12:00 Hemoglobin 13.6 g/dL (11.2-15.7) 09/07/23 12:00 Hematocrit 42.7 % (36.0-46.0) 09/07/23 12:00 Platelet Count 162 10^3/uL (130-400) 09/07/23 12:00 Complete Metabolic Panel: Sodium 143 mmol/L (136-145) 09/07/23 12:00 Potassium 4.3 mmol/L (3.5-5.1) 09/07/23 12:00 Chloride 107 mmol/L (98-107) 09/07/23 12:00 Carbon Dioxide 28.2 mmol/L (21.0-32.0) 09/07/23 12:00 BUN 19 mg/dL (7-18) H 09/07/23 12:00 Creatinine 0.8 mg/dL (0.55-1.02) 09/07/23 12:00 Est GFR (CKD-EPI 2020) 77.27 (mL/min/1.73m2) 09/07/23 12:00 Magnesium 1.7 mg/dL (1.8-2.4) L 08/13/23 17:49 Calcium 8.3 mg/dL (8.5-10.1) L 09/07/23 12:00 Albumin 3.5 g/dL (3.4-5.0) 09/07/23 12:00 Glucose 120 mg/dL (74-106) H 09/07/23 12:00 Liver Function Panel: Alanine Aminotransferase (ALT/SGPT) 40 U/L (14-59) 09/07/23 12:00 Aspartate Amino Transf (AST/SGOT) 24 U/L (15-37) 09/07/23 12:00 Coagulation Panel: No Data to Display Cardiac Panel: Troponin I < 50 ng/L (< or =60) 08/14/23 Arterial Blood Gas: No Data to Display Venous Blood Gas: No Data to Display Pancreas Panel: Lipase 12 U/L (16-77) L 08/13/23 17:49 Thyroid Panel: Thyroid Stimulating Hormone (TSH) 1.55 uIU/Ml (0.36-3.74) 08/18/23 12:30 Infectious Disease: No Data to Display Blood Cultures: No Data to Display Toxicology Panel: No Data to Display Imaging and Studies Imaging and Studies Study information below may be from another EMR and interpreted by another provider. Please see original notes in EMR for more complete details. EKG Summary: DATE/TIME OF SERVICE: 08/21/23 1251 : 1950 PERFORMING LOCATION: .CARD APPROVED REPORT Exam: Resting ECG Reason for Exam: afib/flutter Patient Location: O HR:73 bpm ECG Measurements Heart Rate 73 AXIS VT [id number] P [id number] QRSd 105 QRS 1 QT 444 T131 QTc 490 Conclusion Atrial flutter...A-rate 294 Echocardiogram Summary: Date of Exam: 08/14/23 Sex: F Admission Date: 08/13/23 : 1950 Age: 73 APPROVED REPORT EXAM: Comprehensive 2D, Doppler, and color-flow Echocardiogram Patient Location: In-Patient Room/Bed: 226 Passenger Service Manager: Conner Shah RDCS (AE) Indications: Syncope, new onset atrial flutter with RVR Conclusion Normal left ventricular wall thickness and chamber size. EF is 55-60%. Wall motion is normal Normal right ventricular size and function Left atrium is normal in size. Right atrium is moderately dilated Trileaflet aortic valve without stenosis or regurgitation Mitral annular calcification, trace mitral regurgitation Mild to moderate tricuspid regurgitation Estimated right ventricular systolic pressure is 30 mmHg Anesthesia Assessment and Plan Anesthesia History Personal History: PONV Family History: No Family History of Anesthesia Complications Exercise Tolerance Exercise Tolerance: Metabolic Equivalents>4 Pertinent Negatives Pertinent Negatives: No Symptoms of GERD and No History of CVA/TIA Cardiac & Pulmonary Exam Cardiac Exam: Other Pulmonary Exam: Clear Bilateral Breath Sounds Implantable Cardiac Device Does patient have a Pacemaker or an ICD?: No Airway Exam Known Difficult Airway: No Mallampati Class: 2 Mouth Opening: Normal (> 3cm) Thyromental Distance: Less than 3 cm Neck Range of Motion: Full ROM Neck Circumference: Normal Teeth Condition: Normal Dentition ASA Classification ASA Score: ASA 3 Emergency Case?: No NPO Status NPO Status: NPO Clears >2 hours, Solids >8 hours Anesthesia Plan Resuscitation Status: Full Code Anesthesia Technique: General Anesthesia Airway Planned: Natural Airway Monitors Used: Standard Monitors
[2023-09-12 07:49] VITALS: BP 138/73; PULSE 71; RESP 16; TEMP 36.6; O2SAT 99
[2023-09-12] MEDS: Normal Saline 1,000 ML 30 ML IV (07:52)
--- NOTE | 2023-09-12 08:00 | RT.EKG_ITS ---
APPROVED REPORT Exam: Resting ECG Reason for Exam: Pre op EKG Patient Location: O HR:72 bpm ECG Measurements Heart Rate 72 AXIS AZ [id number] P [id number] QRSd 100 QRS -45 QT 521 T [id number] QTc 572 Conclusion Atrial flutter with predominant 4:1 AV block...A-rate 294, multiple Ps LAD, consider left anterior fascicular block...axis(240,-40), S>R II III aVF
[2023-09-12 08:06] VITALS: BMI 24.1
--- NOTE | 2023-09-12 08:15 | RT.EKG_ITS ---
APPROVED REPORT Exam: Resting ECG Reason for Exam: Post-op EKG Patient Location: O HR:57 bpm ECG Measurements Heart Rate 57 AXIS WI 163 P 59 QRSd 98 QRS 5 QT 441 T 38 QTc 428 Conclusion Sinus bradycardia...rate< 60 Probable left atrial enlargement...P >50mS, <-0.10mV V1 Otherwise normal ECG
--- NOTE | 2023-09-12 08:44 | W.CARDVER ---
Date of service: 09/12/23 Time of Service: 08:44 Cardioversion DATE OF PROCEDURE: 09/12/23 PRE-OP DIAGNOSES: atrial flutter POST-OP DIAGNOSES: same Indications: paroxysmal atrial flutter This 73-year-old woman has paroxysmal atrial flutter. She was brought to the operating room and after informed consent was obtained was sedated under the direction of the anesthesiologist. When she was adequately sedated anterior and posterior self pads were applied. She received 1 synchronized shock at 150 W seconds with return of sinus rhythm, rate approximately 50. She will be taken to the recovery area and discharged when fully awake. She was instructed to stop taking her metoprolol succinate. She has follow-up scheduled in approximately 2 weeks
--- NOTE | 2023-09-12 08:47 | W.PM.DSUDISC ---
Date of service: 09/12/23 Time of Service: 08:47 Discharge Plan Disposition Patient Disposition: Home Condition: Stable Discharge Details Attending Provider: Zaria Caba Primary Care Provider: Silvina Dodd Home Meds and New Rx's Prescriptions: Continued melatonin 3 mg capsule 3 mg PO HS PRN multivitamin [Daily Multi-Vitamin] Tablet 1 tab PO DAILY sertraline [Zoloft] 50 mg tablet 50 mg PO DAILY acetaminophen 650 mg tablet extended release 650 mg PO Q12H cranberry extract 250 mg capsule 250 mg PO DAILY Rx Instructions: administer with a meal lutein 20 mg capsule 20 mg PO DAILY Rx Instructions: give with meal/snack diphenoxylate-atropine [Lomotil] 2.5-0.025 mg tablet 2 tab PO TID PRN (Reason: diarrhea) Qty: 180 3RF Keytruda 25 mg/mL solution 200 mg IV Q3W Rx Instructions: administer over 30 mins cyclosporine [Restasis] 0.05 % dropperette 1 drp ophthalmic (eye) Q12H Qty: 60 3RF insulin glargine [Lantus Solostar U-100 Insulin] 100 unit/mL (3 mL) insulin pen 8 unit subcut DAILY Creon 24,000-76,000 -120,000 unit capsule,delayed release(DR/EC) 3 cap PO .every meal Patient Comments: 3 pills with each meal, and 2 pills with each snack. Eliquis 2.5 mg tablet 2.5 mg PO BID Qty: 180 3RF cholecalciferol (vitamin D3) 50 mcg/drop (2, 000 unit/drop) drops 50 mcg PO DAILY temazepam 15 mg capsule 15 mg PO QHS Qty: 30 3RF Slow-Mag 71.5 mg tablet,delayed release (DR/EC) 71.5 mg PO DAILY Qty: 30 0RF Discontinued metoprolol succinate [Toprol XL] 25 mg tablet extended release 24 hr 25 mg PO DAILY Qty: 30 0RF No Action (DME) pen needle, diabetic [BD Ultra-Fine Micro Pen Needle] 32 gauge x 1/4 needle See Rx Instructions .Route Qty: 100 3RF Rx Instructions: Use with insulin pen once daily (DME) blood-glucose meter [Accu-Chek Guide Glucose Meter] Misc See Rx Instructions .Route Qty: 1 0RF Rx Instructions: As directed, test blood sugar 4 times daily (DME) Accu-Chek Guide test strips Strip See Rx Instructions .Route Qty: 100 3RF Rx Instructions: As directed, test blood sugar 3 times daily Discharge Orders Discharge Orders: Discharge Order (Routine); Ordered 09/12/23 Ordered By: Zaria Caba DS: Diagnosis Discharge Diagnosis (1) Atrial flutter: Status: Acute
[2023-09-12 08:49] VITALS: BP 108/57; PULSE 63; RESP 16; TEMP 36.4; O2SAT 96
[2023-09-12 09:18] VITALS: BP 109/69; PULSE 62; RESP 16; TEMP 36.6; O2SAT 98
--- NOTE | 2023-09-12 09:25 | W.ANESPOSTOP ---
Postoperative Evaluation Date, Time and Location Date Performed: 09/12/23 Time Performed: : Patient Location: Day Surgery Unit Vital Signs Most Recent Imported Vital Signs: Most Recent Vital Signs Temp Pulse Resp BP Pulse Ox 36.6 C 62 16 109/69 98 09/12/23 09:18 09/12/23 09:18 09/12/23 09:18 09/12/23 09:18 09/12/23 09:18 Pain Score Most Recent Pain Score: Most Recent Pain Score Pain Level 0 09/12/23 09:18 Assessment Mental Status: Awake (Alert & Oriented to Patient Baseline) Airway and Respiratory Function: Patent airway with normal (patient baseline) respiratory exam Cardiovascular Function: Hemodynamically Stable Hydration Status: Adequately Hydrated Nausea & Vomiting: No Nausea or Vomiting Pain: Pt. Denies Any Pain Peripheral Nerve Block: Patient did not receive a nerve block
== END 2023-09-12 09:42 | disposition home or self-care (01) ==
PROVIDERS: PCP Nurse Practitioner Family; Visit Provider Internal Medicine Cardiovascular Disease
PROC: 5A2204Z Restoration of Cardiac Rhythm, Single (ICD-10-PCS; CPT 92960; principal; 2023-09-12 08:00)
DX: I48.3 Typical atrial flutter (principal)
CPT/HCPCS: 92960; 93005; 93010; J2250; J2405; J2704

== ENCOUNTER 2023-09-26 08:35 | Outpatient (CLI) | payer MEDICARE, SELFPAY ==
--- NOTE | 2023-09-26 08:30 | RT.EKG_ITS ---
APPROVED REPORT Exam: Resting ECG Reason for Exam: aflutter Patient Location: O HR:56 bpm ECG Measurements Heart Rate 56 AXIS [place] 120 P 45 QRSd 102 QRS -11 QT 477 T 63 QTc 461 Conclusion Sinus rhythm...normal P axis, V-rate Normal Electrocardiogram
== END 2023-09-26 08:36 | disposition home or self-care (01) ==
LOC: DI.CARD 08:36
PROVIDERS: PCP Nurse Practitioner Family; Visit Provider Internal Medicine Cardiovascular Disease
DX: I47.10 Supraventricular tachycardia, unspecified (principal)
CPT/HCPCS: 93010

== ENCOUNTER → 2023-09-26 13:37 | Outpatient (BNVA) | payer MEDICARE, SELFPAY | PROVIDERS: PCP Nurse Practitioner Family; Referring Provider Nurse Practitioner Family; Visit Provider Internal Medicine Cardiovascular Disease | DX: I48.3 Typical atrial flutter (principal) | CPT/HCPCS: 93005; 99213 ==

== ENCOUNTER → 2023-09-28 00:29 | Outpatient (CLI) | payer MEDICARE, SELFPAY ==
--- NOTE | 2023-09-28 12:30 | DI.DEXA_ITS ---
Exam(s) XR DEXA BONE DENSITY W/WO JAY EXAM: XR DEXA BONE DENSITY W/WO JAY CLINICAL HISTORY: Screening for osteoporosis in postmenopausal woman,z78.0 TECHNIQUE: [employer] Horizon C densitometer analysis of left hip, lumbar spine and left forearm. Lat eral survey image of the thoracic and lumbar spine. COMPARISON: No exams were available for comparison FINDINGS: Lateral view of the thoracic and lumbar spine shows no evidence of compression fractures. Bone mineral density measurements of the lumbar spine correspond to a total T-score of 0.7 Bone mineral density measurements of the left hip correspond to a total T-score of -1.3. The femora l neck T-score is -1.3. Theleft forearm bone mineral density measurements correspond to a T-score of the distal 3rd of -1.8. IMPRESSION: Normal bone mineral density of the lumbar spine. Osteopenia of the hip and forearm.
== END ==
PROVIDERS: PCP Nurse Practitioner Family; Visit Provider Nurse Practitioner Family
DX: Z13.820 Encounter for screening for osteoporosis (principal); Z78.0 Asymptomatic menopausal state; M85.89 Other specified disorders of bone density and structure, multiple sites
CPT/HCPCS: 77080

== ENCOUNTER 2023-10-20 00:37 | Outpatient (RCR) | payer MEDICARE, SELFPAY ==
[2023-09-29] MEDS: Normal Saline Flush 10 ML SYR IVP (13:38)
[2023-09-29 13:49] LABS: Abs Immature Grans 0.09 10^3/uL (0.0-0.06); Absolute Basophil Count 0.16 10^3/uL (0.0-0.2); Absolute Lymphocyte Count 34.04 10^3/uL (1.2-3.4); Absolute Monocyte Count 0.64 10^3/uL (0.1-0.8); Basophils % 0.4 %; Eosinophils % 0.5 %; HCT 39.9 % (36.0-46.0); HGB 12.9 g/dL (11.2-15.7); Immature Grans % 0.2 %; Lymphocytes % 84.7 %; MCH 30.2 pg (27.0-33.0); MCHC 32.3 % (32.0-36.0); MCV 93 fL (80-95); MPV 10.9 fL (8.0-11.0); Monocytes % 1.6 %; Neutrophils % 12.6 %; Platelet Count 145 10^3/uL (130-400); RBC 4.27 10^6/uL (3.93-5.22); RDW 13.5 % (11.7-14.6); RDW-SD 46.1 fL
[2023-09-29 13:53] LABS: Absolute Neutrophil Count 5.06 10^3/uL (1.2-6.7)
[2023-09-29 13:56] LABS: WBC 40.19 10^3/uL (4.4-10.8)
[2023-09-29 14:02] LABS: ALT 28 U/L (14-59); AST 19 U/L (15-37); Albumin 3.4 g/dL (3.4-5.0); Alkaline Phosphatase 77 U/L (46-116); Anion Gap 7.4 mmol/L (3-11); BUN 19 mg/dL (7-18); Bilirubin, Total 0.5 mg/dL (0.2-1.0); CO2 29.6 mmol/L (21.0-32.0); CREATININE 0.9 mg/dL (0.55-1.02); Calcium 8.2 mg/dL (8.5-10.1); Chloride 108 mmol/L (98-107); Estimated GFR 67.08 (mL/min/1.73m2); Glucose 168 mg/dL (74-106); Potassium 3.8 mmol/L (3.5-5.1); Sodium 145 mmol/L (136-145)
[2023-09-29 14:03] LABS: Diff Comment Agrees w/ Instrument; RBC Morphology Normal
[2023-09-29 23:30] LABS: CEA 2.6 ng/mL (See Note)
[2023-10-20] MEDS: Normal Saline Flush 10 ML SYR IVP (09:45)
[2023-10-20 10:10] LABS: HCT 42.2 % (36.0-46.0); HGB 13.3 g/dL (11.2-15.7); MCH 29.1 pg (27.0-33.0); MCHC 31.5 % (32.0-36.0); MCV 92 fL (80-95); MPV 11.5 fL (8.0-11.0); Platelet Count 126 10^3/uL (130-400); RBC 4.57 10^6/uL (3.93-5.22); RDW 13.4 % (11.7-14.6); RDW-SD 45.1 fL
[2023-10-20 10:23] LABS: Absolute Lymphocyte Count 35.76 10^3/uL (1.2-3.4); Absolute Monocyte Count 0.87 10^3/uL (0.1-0.8); Absolute Neutrophil Count 6.98 10^3/uL (1.2-6.7); Atypical Lymphocytes % 4 %; Diff Comment Manual Differential; RBC Morphology Normal
[2023-10-20 10:26] LABS: WBC 43.61 10^3/uL (4.4-10.8)
[2023-10-20 10:28] LABS: ALT 33 U/L (14-59); AST 18 U/L (15-37); Albumin 3.4 g/dL (3.4-5.0); Alkaline Phosphatase 89 U/L (46-116); Anion Gap 10.4 mmol/L (3-11); BUN 17 mg/dL (7-18); Bilirubin, Total 0.5 mg/dL (0.2-1.0); CO2 27.6 mmol/L (21.0-32.0); CREATININE 0.8 mg/dL (0.55-1.02); Calcium 8.5 mg/dL (8.5-10.1); Chloride 108 mmol/L (98-107); Estimated GFR 77.27 (mL/min/1.73m2); Glucose 179 mg/dL (74-106); Potassium 3.8 mmol/L (3.5-5.1); Sodium 146 mmol/L (136-145); Total Protein 6.1 g/dL (6.4-8.2)
[2023-10-20 11:59] LABS: FREE T4 0.68 ng/dL (0.76-1.46); TSH 2.86 uIU/Ml (0.36-3.74)
[2023-10-20 18:26] LABS: CEA 3.2 ng/mL (See Note)
== END 2023-10-20 23:59 | disposition home or self-care (01) ==
LOC: INF 00:37
PROVIDERS: Nurse Practitioner Family; PCP Nurse Practitioner Family; Visit Provider Internal Medicine Hematology & Oncology
DX: C18.9 Malignant neoplasm of colon, unspecified (principal); C78.7 Secondary malignant neoplasm of liver and intrahepatic bile duct; Z79.899 Other long term (current) drug therapy; Z45.2 Encounter for adjustment and management of vascular access device
CPT/HCPCS: 36591; 80053; 82378; 84439; 84443; 85025

== ENCOUNTER → 2023-11-03 01:16 | Outpatient (CLI) | payer MEDICARE, SELFPAY ==
--- NOTE | 2023-11-03 | DI.CT_ITS ---
Exam(s) CT CHEST/ABD/PEL W EXAM: CT CHEST/ABD/PEL W CLINICAL HISTORY: Colon CA, mets to liver, C18.9, C78.7. TECHNIQUE: Imaging Protocol: Axial computed tomography images with coronal and sagittal reformatted images were created and reviewed CONTRAST MATERIAL: Intravenous: Omnipaque 350 Contrast volume:100 ml Oral: Yes. Oral contrast was also administered for bowel opacification. COMPARISON: CT CT CHEST/ABD/PEL W from 06/21/[address] CHEST/ABD/PEL W from 09/01/2023 FINDINGS: CHEST: LUNGS: The previously described benign-appearing subpleural markings in the lateral basal segment of the right lower lobe are unchanged. There are no new infiltrates nor pleural effusions and there are no new lung nodules. No findings in the trachea and mainstem bronchi.. MEDIASTINUM: There is no hilar nor mediastinal adenopathy. Visualized thyroid unremarkable.No axillar y nor supraclavicular adenopathy. CARDIAC: Heart size is normal. There is no pericardial effusion.Caliber of the thoracic aorta is wit hin normal limits. OSSEOUS: No significant osseous lesions.. ABDOMEN: Again noted is evidence of partial right hemicolectomy. No significant abnormality nor obstruction a t the level of the anastomosis. No free air. No abscess. No ascites. No small bowel obstruction. There is extensive sigmoid diverticulosis again noted without evidence of obvious acute diverticulit is. LIVER: Previously described tiny subcapsular hypodensity in the posterior aspect of right hepatic lob e is somewhat less prominent than previous, this being evidence that is most probably a small subcaps ular hemangioma. The previously described tiny probable 3 mm cyst in the left hepatic lobe is again noted. In the medial aspect of the right hepatic lobe adjacent to the inter lobar fissure there is a n area of subtle hypodensity measuring 1.9 x 1.8 cm, more evident than on the prior study. Although there is a possibly that this may represent metastatic disease, this is a common place for preferenti al fatty parenchymal change in the liver and indeed the entire liver is somewhat more steatotic than previous and this is possibly in keeping with this generalized finding. There are no other suspiciou s findings in the liver. GALLBLADDER/BILIARY: No obvious gallbladder pathology. CBD is not dilated. PANCREAS: Again noted to be atrophic. No new pancreatic masses nor dilatation pancreatic duct. SPLEEN: Spleen is not enlarged. There are no intrasplenic lesions. Splenic and portal veins are choi nt. ADRENALS: Right adrenal gland unremarkable. Slight thickening of the medial limb of the left adrenal gland is unchanged. KIDNEYS: No new significant focal findings in the kidneys. No hydronephrosis.. ABDOMINAL AORTA: Abdominal aorta is not enlarged. LYMPH NODES: There is no retroperitoneal nor paraaortic adenopathy. ABDOMINAL WALL: No evidence of significant anterior abdominal wall nor inguinal hernia. GI: There is no evidence of bowel obstruction.Small area of mesenteric density adjacent to the remain ing ascending colon, unchanged from previous. Possibly postsurgical scarring PELVIS: LYMPH NODES: There is no intrapelvic nor inguinal adenopathy. GI: Appendix surgically absent from prior surgery.Sense of sigmoid diverticulosis again noted, withou t evidence of acute diverticulitis. URINARY BLADDER: Urinary bladder wall is again noted be abnormally thickened, slightly more so on the right side. Recommend cystoscopy. REPRODUCTIVE: Uterus is again noted be surgically absent. A pessary is noted in the upper vagina. T here are no abnormal adnexal masses OSSEOUS: No osseous lesions identified. No fractures. IMPRESSION: 1. No evidence of metastatic intrathoracic disease nor other findings in the chest. 2. Again noted is evidence of partial right hemicolectomy. There is mild fat streaking adjacent to t he anastomosis which is unchanged from the prior study of 09/01/2023. Also unchanged from CT scan of 06/21/2023. There is no evidence of abscess, free air, nor bowel obstruction. There is no ascites. 3. There is a 1.9 x 1.8 cm subtle hypodense area in the medial aspect of the right hepatic lobe adjac ent to the hepatic inter lobar fissure. Although this is of concern given the history here, this is also the most common area in the liver which undergoes preferential fatty parenchymal change. Indeed , the entire liver appears somewhat more steatotic than previous. There is a good possibility that t his abnormal finding is more in keeping with focal fatty parenchymal change than an actual metastatic lesion. The other 2 previously described tiny benign-appearing findings in the liver remain stable. 4. Urinary bladder wall is again noted be thickened, slightly more so on the right side. Either rela nora to cystitis or neoplasm. 5. Is again noted be surgically absent. The vaginal pessary is again noted 6. No new significant osseous findings. RADIATION DOSE DELIVERED: Total DLP DATA REPOSITORY: All CT scans at this facility are submitted to the National Radiology Data Registry (NRDR) Dose Index Registry (DIR) with the [employer] ([employer]). RADIATION OPTIMIZATION: All CT scans at this facility use at least one of these dose optimization te chniques: automated exposure control; mA and/or kV adjustment per patient size (includes targeted exa ms where dose is matched to clinical indication); or iterative reconstruction.
[2023-11-03] MEDS: Barium Sulfate 2% W/V-Berry Smoothie 450 ML BTL PO ×2 (10:48→10:49)
[2023-11-03] MEDS: Omnipaque 350 MG/ML 500 ML BTL-Imaging package IJ (13:01)
[2023-11-03] MEDS: Normal Saline - Diluent 50 ML VIAL IJ (13:01)
== END ==
PROVIDERS: PCP Nurse Practitioner Family; Visit Provider Internal Medicine Hematology & Oncology
DX: C18.9 Malignant neoplasm of colon, unspecified (principal); C78.7 Secondary malignant neoplasm of liver and intrahepatic bile duct
CPT/HCPCS: 74177; 96523; 71260

== ENCOUNTER 2023-11-10 01:03 | Outpatient (RCR) | payer MEDICARE, SELFPAY ==
[2023-11-03] MEDS: Normal Saline Flush 10 ML SYR IVP (10:50)
[2023-11-10] MEDS: Normal Saline Flush 10 ML SYR IVP (09:25)
[2023-11-10 09:35] LABS: Abs Immature Grans 0.08 10^3/uL (0.0-0.06); Basophils % 0.4 %; Eosinophils % 0.4 %; HGB 13.6 g/dL (11.2-15.7); Immature Grans % 0.2 %; Lymphocytes % 86.2 %; MCH 29.8 pg (27.0-33.0); MCHC 31.6 % (32.0-36.0); MCV 94 fL (80-95); MPV 11.4 fL (8.0-11.0); Monocytes % 1.5 %; Neutrophils % 11.3 %; Platelet Count 132 10^3/uL (130-400); RBC 4.56 10^6/uL (3.93-5.22); RDW 13.2 % (11.7-14.6); RDW-SD 45.3 fL
[2023-11-10 09:38] LABS: Absolute Basophil Count 0.18 10^3/uL (0.0-0.2); Absolute Eosinophil Count 0.18 10^3/uL (0.0-0.7); Absolute Lymphocyte Count 38.65 10^3/uL (1.2-3.4); Absolute Monocyte Count 0.67 10^3/uL (0.1-0.8); Absolute Neutrophil Count 5.07 10^3/uL (1.2-6.7)
[2023-11-10 09:58] LABS: Diff Comment Agrees w/ Instrument; RBC Morphology Normal; WBC 44.84 10^3/uL (4.4-10.8)
[2023-11-10 10:00] LABS: ALT 30 U/L (14-59); AST 18 U/L (15-37); Albumin 3.5 g/dL (3.4-5.0); Alkaline Phosphatase 89 U/L (46-116); Anion Gap 8.4 mmol/L (3-11); BUN 14 mg/dL (7-18); Bilirubin, Total 0.65 mg/dL (0.2-1.0); CO2 29.6 mmol/L (21.0-32.0); CREATININE 0.9 mg/dL (0.55-1.02); Calcium 8.8 mg/dL (8.5-10.1); Chloride 105 mmol/L (98-107); Estimated GFR 67.08 (mL/min/1.73m2); FREE T4 0.69 ng/dL (0.76-1.46); Glucose 253 mg/dL (74-106); Potassium 4.2 mmol/L (3.5-5.1); Sodium 143 mmol/L (136-145); TSH 3.85 uIU/Ml (0.36-3.74); Total Protein 6.1 g/dL (6.4-8.2)
== END 2023-11-19 23:59 | disposition home or self-care (01) ==
LOC: INF 01:03
PROVIDERS: PCP Nurse Practitioner Family; Visit Provider Internal Medicine Hematology & Oncology
DX: C18.9 Malignant neoplasm of colon, unspecified (principal); Z79.899 Other long term (current) drug therapy; C78.7 Secondary malignant neoplasm of liver and intrahepatic bile duct; Z45.2 Encounter for adjustment and management of vascular access device
CPT/HCPCS: 36591; 80053; 96523; 82378; 84439; 84443; 85025

== ENCOUNTER 2023-12-01 00:35 | Outpatient (RCR) | payer MEDICARE, SELFPAY ==
[2023-12-01] MEDS: Normal Saline Flush 10 ML SYR IVP (12:10)
[2023-12-01 12:17] LABS: HCT 42.9 % (36.0-46.0); HGB 13.6 g/dL (11.2-15.7); MCH 29.6 pg (27.0-33.0); MCHC 31.7 % (32.0-36.0); MCV 94 fL (80-95); MPV 11.1 fL (8.0-11.0); Platelet Count 143 10^3/uL (130-400); RBC 4.59 10^6/uL (3.93-5.22); RDW 13.5 % (11.7-14.6); RDW-SD 46.2 fL
[2023-12-01 12:39] LABS: ALT 31 U/L (14-59); AST 19 U/L (15-37); Albumin 3.6 g/dL (3.4-5.0); Alkaline Phosphatase 92 U/L (46-116); Anion Gap 2.6 mmol/L (3-11); BUN 12 mg/dL (7-18); Bilirubin, Total 0.59 mg/dL (0.2-1.0); CO2 32.4 mmol/L (21.0-32.0); CREATININE 0.7 mg/dL (0.55-1.02); Calcium 8.4 mg/dL (8.5-10.1); Chloride 106 mmol/L (98-107); FREE T4 0.85 ng/dL (0.76-1.46); Glucose 104 mg/dL (74-106); Potassium 4.2 mmol/L (3.5-5.1); Sodium 141 mmol/L (136-145); TSH 1.81 uIU/Ml (0.36-3.74); Total Protein 6.4 g/dL (6.4-8.2)
[2023-12-01 12:42] LABS: Absolute Basophil Count 0.49 10^3/uL (0.0-0.2); Absolute Eosinophil Count 0.49 10^3/uL (0.0-0.7); Absolute Lymphocyte Count 42.89 10^3/uL (1.2-3.4); Absolute Monocyte Count 1.46 10^3/uL (0.1-0.8); Absolute Neutrophil Count 3.41 10^3/uL (1.2-6.7); Atypical Lymphocytes % 1 %; Bands % 0 %
[2023-12-01 12:43] LABS: Diff Comment Manual Differential; RBC Morphology Normal
[2023-12-01 12:51] LABS: WBC 48.74 10^3/uL (4.4-10.8)
[2023-12-04 10:32] LABS: CEA 3.1 ng/mL (See Note)
== END 2023-12-20 23:59 | disposition home or self-care (01) ==
LOC: INF 00:35
PROVIDERS: Nurse Practitioner Family; PCP Nurse Practitioner Family; Visit Provider Internal Medicine Hematology & Oncology
DX: C18.9 Malignant neoplasm of colon, unspecified (principal); C78.7 Secondary malignant neoplasm of liver and intrahepatic bile duct; Z79.899 Other long term (current) drug therapy; Z45.2 Encounter for adjustment and management of vascular access device
CPT/HCPCS: 36591; 80053; 82378; 84439; 84443; 85025

== ENCOUNTER 2024-01-12 00:27 | Outpatient (RCR) | payer MEDICARE, SELFPAY ==
[2023-12-22] MEDS: Normal Saline Flush 10 ML SYR IVP (12:00)
[2023-12-22 12:21] LABS: Abs Immature Grans 0.11 10^3/uL (0.0-0.06); Absolute Monocyte Count 1.04 10^3/uL (0.1-0.8); Absolute Neutrophil Count 5.15 10^3/uL (1.2-6.7); Basophils % 0.5 %; Eosinophils % 0.5 %; HCT 42.5 % (36.0-46.0); HGB 13.4 g/dL (11.2-15.7); Immature Grans % 0.2 %; Lymphocytes % 86.9 %; MCH 29.7 pg (27.0-33.0); MCHC 31.5 % (32.0-36.0); MCV 94 fL (80-95); MPV 11.1 fL (8.0-11.0); Neutrophils % 9.9 %; Platelet Count 146 10^3/uL (130-400); RBC 4.51 10^6/uL (3.93-5.22); RDW 13.2 % (11.7-14.6); RDW-SD 45.1 fL
[2023-12-22 12:33] LABS: Absolute Basophil Count 0.26 10^3/uL (0.0-0.2); Absolute Eosinophil Count 0.26 10^3/uL (0.0-0.7); Absolute Lymphocyte Count 45.19 10^3/uL (1.2-3.4)
[2023-12-22 12:34] LABS: Diff Comment Agrees w/ Instrument; RBC Morphology Normal
[2023-12-22 12:41] LABS: ALT 32 U/L (14-59); AST 20 U/L (15-37); Albumin 3.6 g/dL (3.4-5.0); Alkaline Phosphatase 86 U/L (46-116); Anion Gap 6.8 mmol/L (3-11); BUN 16 mg/dL (7-18); CO2 30.2 mmol/L (21.0-32.0); CREATININE 0.8 mg/dL (0.55-1.02); Calcium 8.4 mg/dL (8.5-10.1); Chloride 106 mmol/L (98-107); Estimated GFR 77.27 (mL/min/1.73m2); FREE T4 0.78 ng/dL (0.76-1.46); Glucose 137 mg/dL (74-106); Potassium 4.1 mmol/L (3.5-5.1); Sodium 143 mmol/L (136-145); Total Protein 6.3 g/dL (6.4-8.2)
[2023-12-22 13:58] LABS: TSH 1.48 uIU/Ml (0.36-3.74)
[2023-12-22 22:48] LABS: CEA 3.4 ng/mL (See Note)
[2024-01-12] MEDS: Normal Saline Flush 10 ML SYR IVP (13:38)
[2024-01-12 13:53] LABS: Abs Immature Grans 0.11 10^3/uL (0.0-0.06); Absolute Neutrophil Count 5.51 10^3/uL (1.2-6.7); Basophils % 0.4 %; Eosinophils % 0.5 %; HCT 42.5 % (36.0-46.0); HGB 13.6 g/dL (11.2-15.7); Immature Grans % 0.2 %; Lymphocytes % 86.4 %; MCH 30.1 pg (27.0-33.0); MCV 94 fL (80-95); MPV 10.9 fL (8.0-11.0); Monocytes % 1.5 %; Platelet Count 138 10^3/uL (130-400); RBC 4.52 10^6/uL (3.93-5.22); RDW 13.2 % (11.7-14.6); RDW-SD 44.9 fL
[2024-01-12 13:57] LABS: Absolute Eosinophil Count 0.25 10^3/uL (0.0-0.7); Absolute Monocyte Count 0.75 10^3/uL (0.1-0.8)
[2024-01-12 14:12] LABS: Diff Comment Agrees w/ Instrument; RBC Morphology Normal
[2024-01-12 14:15] LABS: WBC 50.12 10^3/uL (4.4-10.8)
[2024-01-12 14:18] LABS: ALT 23 U/L (14-59); AST 19 U/L (15-37); Albumin 3.6 g/dL (3.4-5.0); Alkaline Phosphatase 81 U/L (46-116); Anion Gap 6.7 mmol/L (3-11); BUN 19 mg/dL (7-18); Bilirubin, Total 0.58 mg/dL (0.2-1.0); CO2 29.3 mmol/L (21.0-32.0); CREATININE 0.8 mg/dL (0.55-1.02); Calcium 8.9 mg/dL (8.5-10.1); Chloride 105 mmol/L (98-107); Estimated GFR 77.27 (mL/min/1.73m2); FREE T4 0.92 ng/dL (0.76-1.46); Glucose 178 mg/dL (74-106); Potassium 3.7 mmol/L (3.5-5.1); Sodium 141 mmol/L (136-145); TSH 1.76 uIU/Ml (0.36-3.74); Total Protein 6.4 g/dL (6.4-8.2)
[2024-01-12 22:25] LABS: CEA 2.7 ng/mL (See Note)
== END 2024-01-20 23:59 | disposition home or self-care (01) ==
LOC: INF 00:27
PROVIDERS: Nurse Practitioner Family; PCP Nurse Practitioner Family; Visit Provider Internal Medicine Hematology & Oncology
DX: C18.9 Malignant neoplasm of colon, unspecified (principal); C78.7 Secondary malignant neoplasm of liver and intrahepatic bile duct; Z79.899 Other long term (current) drug therapy
CPT/HCPCS: 36591; 80053; 82378; 84439; 84443; 85025

== ENCOUNTER → 2024-01-23 13:32 | Outpatient (BNVA) | payer MEDICARE, SELFPAY | PROVIDERS: PCP Nurse Practitioner Family; Referring Provider Nurse Practitioner Family; Visit Provider Internal Medicine Cardiovascular Disease | DX: I48.3 Typical atrial flutter (principal) | CPT/HCPCS: 99213 ==

== ENCOUNTER 2024-02-02 01:02 | Outpatient (RCR) | payer MEDICARE, SELFPAY ==
[2024-02-02] MEDS: Normal Saline Flush 10 ML SYR IVP (12:45)
[2024-02-02 14:13] LABS: Abs Immature Grans 0.09 10^3/uL (0.0-0.06); Basophils % 0.4 %; Eosinophils % 0.4 %; HCT 42.3 % (36.0-46.0); HGB 13.5 g/dL (11.2-15.7); Immature Grans % 0.2 %; MCH 30.1 pg (27.0-33.0); MCHC 31.9 % (32.0-36.0); MCV 94 fL (80-95); MPV 12.5 fL (8.0-11.0); Monocytes % 1.6 %; Platelet Count 112 10^3/uL (130-400); RBC 4.48 10^6/uL (3.93-5.22); RDW 13.2 % (11.7-14.6); RDW-SD 44.8 fL
[2024-02-02 14:15] LABS: Absolute Lymphocyte Count 43.32 10^3/uL (1.2-3.4); Absolute Monocyte Count 0.79 10^3/uL (0.1-0.8); Absolute Neutrophil Count 4.96 10^3/uL (1.2-6.7)
[2024-02-02 14:20] LABS: WBC 49.56 10^3/uL (4.4-10.8)
[2024-02-02 14:38] LABS: ALT 30 U/L (14-59); AST 21 U/L (15-37); Albumin 3.4 g/dL (3.4-5.0); Alkaline Phosphatase 79 U/L (46-116); BUN 16 mg/dL (7-18); Bilirubin, Total 0.56 mg/dL (0.2-1.0); CREATININE 0.9 mg/dL (0.55-1.02); Calcium 8.6 mg/dL (8.5-10.1); Chloride 107 mmol/L (98-107); Estimated GFR 67.08 (mL/min/1.73m2); Glucose 189 mg/dL (74-106); Sodium 141 mmol/L (136-145); TSH 1.95 uIU/Ml (0.36-3.74); Total Protein 6.2 g/dL (6.4-8.2)
[2024-02-02 14:47] LABS: Diff Comment Diff Reviewed; Lymphocytes % 87.4 %; RBC Morphology Normal
[2024-02-05 09:07] LABS: CEA 3.2 ng/mL (See Note)
== END 2024-02-19 23:59 | disposition home or self-care (01) ==
LOC: INF 01:02
PROVIDERS: PCP Nurse Practitioner Family; Visit Provider Internal Medicine Hematology & Oncology
DX: C18.9 Malignant neoplasm of colon, unspecified (principal); C78.7 Secondary malignant neoplasm of liver and intrahepatic bile duct; Z79.899 Other long term (current) drug therapy
CPT/HCPCS: 36591; 80053; 82378; 84439; 84443; 85025

== ENCOUNTER → 2024-02-07 12:57 | Outpatient (BNVA) | payer MEDICARE, SELFPAY | PROVIDERS: PCP Nurse Practitioner Family; Referring Provider Nurse Practitioner Family; Visit Provider Surgery | DX: Z12.11 Encounter for screening for malignant neoplasm of colon (principal) ==

== ENCOUNTER 2024-03-13 03:13 | Outpatient (RCR) | payer MEDICARE, SELFPAY ==
[2024-03-13 10:48] LABS: HCT 41.4 % (36.0-46.0); HGB 12.9 g/dL (11.2-15.7); MCH 29.8 pg (27.0-33.0); MCHC 31.2 % (32.0-36.0); MCV 96 fL (80-95); MPV 11.4 fL (8.0-11.0); Platelet Count 151 10^3/uL (130-400); RBC 4.33 10^6/uL (3.93-5.22); RDW 12.9 % (11.7-14.6); RDW-SD 44.8 fL
[2024-03-13] MEDS: Normal Saline Flush 10 ML SYR IVP (10:58)
[2024-03-13 11:09] LABS: Absolute Lymphocyte Count 47.02 10^3/uL (1.2-3.4); Absolute Monocyte Count 3.13 10^3/uL (0.1-0.8); Absolute Neutrophil Count 2.09 10^3/uL (1.2-6.7); Atypical Lymphocytes % 0 %; Bands % 0 %
[2024-03-13 11:10] LABS: ALT 23 U/L (14-59); AST 19 U/L (15-37); Albumin 3.2 g/dL (3.4-5.0); Alkaline Phosphatase 77 U/L (46-116); Anion Gap 6.9 mmol/L (3-11); BUN 14 mg/dL (7-18); Bilirubin, Total 0.51 mg/dL (0.2-1.0); CO2 30.1 mmol/L (21.0-32.0); CREATININE 0.8 mg/dL (0.55-1.02); Calcium 8.7 mg/dL (8.5-10.1); Chloride 107 mmol/L (98-107); Estimated GFR 77.27 (mL/min/1.73m2); FREE T4 0.84 ng/dL (0.76-1.46); Glucose 184 mg/dL (74-106); Potassium 4.2 mmol/L (3.5-5.1); Sodium 144 mmol/L (136-145); TSH 2.23 uIU/mL (0.36-3.74); Total Protein 6.3 g/dL (6.4-8.2)
[2024-03-13 11:16] LABS: WBC 52.24 10^3/uL (4.4-10.8)
[2024-03-13 19:03] LABS: CEA 2.3 ng/mL (See Note)
== END 2024-03-21 23:59 | disposition home or self-care (01) ==
LOC: INF 03:13
PROVIDERS: PCP Nurse Practitioner Family; Visit Provider Internal Medicine Hematology & Oncology
DX: C18.9 Malignant neoplasm of colon, unspecified (principal); E03.9 Hypothyroidism, unspecified; Z45.2 Encounter for adjustment and management of vascular access device; C78.7 Secondary malignant neoplasm of liver and intrahepatic bile duct
CPT/HCPCS: 36591; 80053; 82378; 84439; 84443; 85025

== ENCOUNTER 2024-04-05 06:15 | Day surgery (SDC) | payer MEDICARE, SELFPAY ==
--- NOTE | 2024-04-04 21:46 | W.PM.HP.N ---
Date of service: 04/05/24 Time of Service: 07:37 Assessment and Plan Assessment and plan (1) Exocrine pancreatic insufficiency: Status: Acute (2) Diabetes mellitus type 2, controlled: Status: Acute (3) Weight loss, unintentional: Status: Acute (4) GERD (gastroesophageal reflux disease): Status: Chronic (5) Metastatic colon cancer to liver: Status: Acute Assessment and plan: Informed consent is obtained for the procedural (explained in simple layman's terms that the pt. and/or family could understand) explaining risks vs benefits and alternatives to the procedure and consequences if we do not do the procedure and need/rational for the procedure. Risks include but are not limited to: bleeding, infection, perforation of esophagus, stomach, colon, small intestines, bronchus or trachea, or PTX. This would necessitate emergency surgery to repair the damage w/ possible ostomy; and other associated complications w/ the required surgery. Also complications of anesthesia including aspiration, NC/CVA/. (6) Cerebral infarction: (7) Pulmonary embolism: (8) History of right hemicolectomy: History of Present Illness Narrative: Patient is here today for egd & colonoscopy for hx of colon cancer & gerd .??? They completed a bowel prep with just a clear yellow residual effluent.? They not having any chest pain or shortness of breath, currently.? They are not experiencing any fever or chills.? They deny any productive cough or upper respiratory tract infection signs or symptoms.? They are having mild abdominal pain, or nausea.? They have not had any changes in medications, past medical history or past surgical history since previously being seen in the office. They have not had any accidents or have been in the ER since the clinic pre-operative evaluation. ??I reviewed the procedure with the patient today, including risks and benefits of the procedure, and what they could expect at home for recovery.? All questions are answered to the patient?s satisfaction today, and they are stable to proceed with the proposed procedure. She also has a lesion in the right upper flank. She thinks is the head of the tick. She would like this removed. Risks include bleeding infection scarring need for removal of more tissue and reaction to medications 1) Encounter for screening colonoscopy: 1. Gastroesophageal Reflux Disease (GERD). She reports persistent heartburn and symptoms suggestive of a hiatal hernia. A prescription for Pepcid 10 mg twice daily has been issued. She is advised to take Pepcid regularly and monitor for any adverse effects. If symptoms worsen, she should discontinue use. An EGD is scheduled for 03/22/2024 to obtain biopsies and assess for Samuels's esophagus or other chronic changes. She is instructed to increase fluid intake 2-3 days before the procedure and to hold apixaban 2 days prior. The potential risks of the procedure, including bleeding and infection, have been discussed. 2. Chronic Diarrhea. She experiences chronic diarrhea exacerbated by certain foods. A colonoscopy is scheduled for 03/22/2024 to investigate further. She is advised to use Tucks pads and Desitin for comfort. She should drink electrolyte fluids like Propel before the procedure to prevent dehydration. The potential for a syncopal episode due to her low blood pressure and heart rate has been discussed. -I did also review the pt w/ Anesthesia. Plan: Colonoscopy w/ general & natural airway. The?patient will be scheduled by my office. A complete H & P is required within 30 days of the procedure.? GETA w/natural airway is used for the colonoscopy.? Informed consent is obtained for the procedural (explained in simple layman's terms that?the pt and/or family could understand) explaining risks vs benefits and alternatives to the procedure and consequences if we do not do the procedure and need/rational for the procedure. Risks include but are not limited to: bleeding, infection, perforation of colon.? This would necessitate emergency surgery to repair the damage w/ possible ostomy; and other associated complications w/ the required surgery. ? Also complications of anesthesia including aspiration, NC/CVA/, inability to complete the procedure. I discussed with the?patient would they could expect during the procedure, post procedure and recovery time and risks.? The patient understands that they need to have a ride home after the procedure.? The patient was given all this information in writing and expressed understanding. If there are any questions or concerns please feel free to contact our office.? Generally Colonoscopy does not require antibiotics prophylaxis, This document was created with voice activated software and may contain errors. 30 mins spent in direct pt care and 15 in non face to face time 3. Diabetes Mellitus. She manages her blood sugar with long-acting insulin, currently at 10 units daily. She is advised to continue her current regimen and to eat every 2-3 hours to prevent hypoglycemia. She should monitor her blood sugar levels closely, especially during the bowel prep for the colonoscopy. 4. Pulmonary Embolism (PE) History. She has a history of PE and is currently on apixaban. She is instructed to hold apixaban 2 days before the scheduled procedures on 03/22/2024. The risks of discontinuing apixaban, including the potential for A. fib or atrial flutter, have been discussed. 5. Chronic Lymphocytic Leukemia (CLL). She has a 15-year history of CLL. No new treatment changes are recommended at this time. 6. Medication Management. She is currently on Creon five times a day. She is advised to avoid taking Tums as it interferes with Creon absorption. She should continue her current regimen and monitor for any adverse effects. (2) Metastatic colon cancer to liver: New RN: Pt reports history of colon cancer 12/10, pt was to have colonoscopy last year, heart issues has delayed colonoscopy, note from cardiology saying pt can hold eliquis for 2 days. Pt reports she was doing chemo every 3 weeks, completed on 02/02/24. Pt seen at the request of PCP regarding colon cancer screening. Patient has a history of metastatic colorectal cancer. She had a resection done in 2021. She has not had a follow-up colonoscopy since her resection. She also had liver mets at that time is currently concluding a course of Keytruda which she will finish in February. Please see Dr. Fischer's note from [facility] oncology. They denies problems with constipation or diarrhea.? They deny any pain or difficulty with bowel movements, or rectal bleeding.? There is no family history of any colon cancer.? Pt has not had any unexplained weight loss.? Their appetite is good.? ?They deny heart, lung, or kidney problems. They are not having heartburn or indigestion. They have not had any prior colo-rectal surgery.? The patient has not had a prior MYRON.? They deny any problems with anesthesia in the past. 2-3 stools/day. soft and formed. certain fruits/vegy will cause diarrhea. Anesthesia: general (without airway) Previous surgical intolerances: No Previous surgical complications: No Pulmonary risk factors: Planned procedure: Yes Sleep apnea risks: No COPD/Asthma/Smoker: Can climb one flight of stairs (12-13 steps) in less than 30 seconds without stopping and without symptoms: Yes The surgery proposed for this patient is: low risk Active cardiac conditions: none Active risk factors: none ASA (acetylsalicylic acid): not used Beta blockers: not used Kidneys: no concerns DM: She has a history of A-fib and recently had a cardioversion and is currently in normal sinus rhythm. She has a has a history of saddle embolus 2017 and is on apixaban. also has a hx of CLL and white count usually runs in the 40,000 as of normal. She has some pulmonary nodules associated with this. These have been stable and are not thought to be metastatic2 PE- proveocked. was also on HRT. finished keytruda. port- right subclavian The I the patient presents for evaluation of multiple medical concerns. She has a history of blood clots in the lungs, discovered three days after her retina surgery, and was treated with TNK. She occasionally experiences aphasia, characterized by difficulty in recalling or articulating words, and reports numbness in her right fingers and toes. Her hormone replacement therapy was switched from Premarin to an alternative due to insurance coverage issues. She has been living with Chronic Lymphocytic Leukemia (CLL) for 15 years, but it is unclear if this contributed to her pulmonary embolism. She has previously discontinued her blood thinners without any complications. Dr. Joseph advised that holding Eliquis for 48 hours should not pose any problems. She has a history of atrial flutter and is currently on metoprolol. She completed her Keytruda treatment last Monday and still has a port in place. She typically has two to three bowel movements per day, which are usually soft and formed. However, certain foods like pears and cucumbers can trigger diarrhea. She has a long-standing issue with diarrhea, which led to the discontinuation of Prozac. A colonoscopy was performed, and she was prescribed Protonix by a child caregiver private home in [place]. However, this medication caused severe diarrhea within two days. She continues to experience heartburn and has been diagnosed with a hiatal hernia. She cannot take Tums due to its interference with Creon absorption. She takes Creon five times a day and finds relief from walking around. Occasionally, she feels as if food is getting stuck in her esophagus, causing her to stand up and stretch. She is considering an upper and lower endoscopy. She avoids milk due to its interaction with Creon and has identified certain foods that she cannot consume with Creon. She eats every two to three hours to prevent hypoglycemia due to her long-acting insulin. She does not qualify for an insulin pump. She saw an business office representative in [facility] who conducted a blood sugar level test, which she did not pass. She adjusts her insulin dosage based on her blood sugar levels and has been maintaining a steady dose of 10 units for several months. She occasionally takes Pepcid 10 mg when her heartburn is severe. She was on Prilosec for about 10 years, which helped with her heartburn but not her loose stools. She was suspected to have Irritable Bowel Syndrome (IBS) in her 20s and underwent a scope at that time. She used to have severe diarrhea with mucus. She manages her symptoms by avoiding certain foods and eating others in moderation. She takes Slow-Mag 70 mg for her low magnesium levels, which were discovered during an episode of atrial flutter. She had a syncopal episode and broke her foot. She used to take magnesium at night for leg cramps. She is concerned about having a syncopal episode due to her low blood pressure and heart rate, which can be exacerbated by dehydration. She experienced chronic diarrhea six or seven times a day last fall before it was determined that her pancreas was not functioning properly. She felt lightheaded every time she had a bowel movement. She took Jardiance for two days, but on the second day, she had severe diarrhea again. She drinks Propel intermittently, especially when she gets leg cramps. She drinks orange juice or some other juice with potassium every morning and eats a banana every day. She used Crystal Light lemonade mixed with MiraLAX for bowel prep before her surgery in 12/2021. She had about one-third of her ascending colon removed. She uses Desitin cream for burning sensation. She has an appointment with the oncology [facility] for a port flush and blood draw. -Patient is still very active and from a functional standpoint has a very good performance score. [facility] All systems reviewed & are unremarkable except as noted in HPI and below PFSH All Active Problems Exocrine pancreatic insufficiency (Acute) Metastatic colon cancer to liver (Acute) [id number] (liver) Fracture of fifth metatarsal bone of left foot (Acute) Fracture of fourth metatarsal bone of left foot (Acute) Foot fracture, left (Acute) Syncope (Chronic) Atrial flutter (Acute) Pancreas (digestive gland) works poorly (Acute) Weight loss, unintentional (Acute) Abdominal bloating (Acute) Vaginal prolapse (Acute) Intrinsic sphincter deficiency (ISD) (Acute) Seborrheic keratoses (Acute) CLL (chronic lymphocytic leukemia) (Acute) Actinic keratosis (Acute) Diabetes mellitus type 2, controlled (Acute) GERD (gastroesophageal reflux disease) (Chronic) Urine incontinence (Acute) SVT (supraventricular tachycardia) (Chronic) Medical History Colon cancer Current receiving chemo (Keytruda) Pelvic organ prolapse quantification stage 3 cystocele Cerebral infarction 2017- 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 fingers Pulmonary embolism (B) Sadal PE 2017 Squamous cell carcinoma of skin Surgical History History of right hemicolectomy H/O cardiac radiofrequency ablation Spring 2022 of aflutter History of bowel resection (Unknown) History of repair of anterior cruciate ligament of left knee Family History Mother Diabetes Heart disease Hypertension Father Cancer Social History Smoking/Tobacco Use Status: Never Second Hand Exposure: Yes Smoking risk assessment performed?: Yes Alcohol Intake: current Alcohol Intake frequency: holidays/special occasions only Alcohol type: wine Drug use: Never Substance use type: does not use Caregiver/Support person: No Household members: none Housing: house Communication Needs: None Do you need help understanding health information?: Never Pets and animals: Yes Sexually active: No Current gender identity: female What is your relationship status?: How often do you talk on the phone with friends or family?: three or more times per week How often do you get together with friends or relatives?: once per week How often do you attend advent or jewish services?: decline to answer Do you belong to any clubs or organized social groups?: no Panel score (0-1 are the most socially isolated patients): 1 What type of physical activity do you participate in: walking Duration: 15-30 minutes/day Frequency: daily Seatbelt use: always Drive intox or ride w/intox sprinkler driver: No Do you feel safe at home: Yes Do you feel safe in your relationship?: Yes Meds Allergies and Home Medications Allergies Allergy/AdvReac Type Severity Reaction Status Date / Time empagliflozin (From AdvReac Severe Diarrhea Verified 04/05/24 06:29 Jardiance) atorvastatin (From Lipitor) AdvReac Intermediate leg cramps Verified 04/05/24 06:29 omeprazole (From Prilosec) AdvReac Intermediate Diarrhea Verified 04/05/24 06:29 pantoprazole (From Protonix) AdvReac Intermediate Diarrhea Verified 04/05/24 06:29 metformin AdvReac Intermediate Diarrhea Uncoded 04/05/24 06:29 doxycycline AdvReac c diff Uncoded 04/05/24 06:29 Home Medications ?Medication ?Instructions ?Recorded ?Confirmed ?Type cholecalciferol (vitamin D3) 50 50 mcg PO DAILY 01/30/23 04/05/24 History mcg/drop (2,000 unit/drop) oral drops acetaminophen 650 mg 650 mg PO Q12H 01/31/23 04/05/24 History tablet,extended release cranberry extract 250 mg capsule 250 mg PO DAILY 01/31/23 04/05/24 History diphenoxylate-atropine 2.5 2 tab PO TID PRN diarrhea #180 tabs 01/31/23 04/05/24 Rx mg-0.025 mg tablet (Lomotil) lutein 20 mg capsule 20 mg PO DAILY 01/31/23 04/05/24 History melatonin 3 mg capsule 3 mg PO HS PRN 01/31/23 04/05/24 History multivitamin (Daily Multi-Vitamin 1 tab PO DAILY 01/31/23 04/05/24 History tablet) sertraline 50 mg tablet (Zoloft) 50 mg PO DAILY 01/31/23 04/05/24 History pembrolizumab 25 mg/mL intravenous 200 mg (8 mL) IV Q3W 03/06/23 03/18/24 Rx solution (Keytruda) mvkozv-ckzzfxnz-zhustts 3 cap PO .every meal 04/03/23 04/05/24 History 24,000-76,000-120,000 unit capsule,delayed rel (Creon) apixaban 2.5 mg tablet (Eliquis) 2.5 mg PO BID #180 tabs 05/08/23 04/03/24 Rx blood-glucose meter (Accu-Chek #1 ea 06/14/23 03/18/24 Rx Guide Glucose Meter) cyclosporine 0.05 % eye drops in a 1 drp ophthalmic (eye) Q12H #60 ea 08/10/23 04/05/24 Rx dropperette (Restasis) magnesium chloride 71.5 mg 71.5 mg PO DAILY #30 tabs 08/15/23 04/05/24 Rx (magnesium chloride) tablet,delayed release (Slow-Mag) pen needle, diabetic 32 gauge x #100 ea 08/22/23 03/18/24 Rx 1/4 (BD Ultra-Fine Micro Pen Needle) blood sugar diagnostic (Accu-Chek #100 ea 12/06/23 03/18/24 Rx Guide test strips) insulin glargine-yfgn 100 unit/mL 15 unit (0.15 mL) subcut DAILY #15 12/12/23 04/05/24 Rx (3 mL) subcutaneous pen (Semglee mL (insulin glargine-yfgn) Pen) levothyroxine 25 mcg capsule 25 mcg PO DAILY 01/23/24 04/05/24 History famotidine 20 mg tablet (Pepcid) 20 mg PO BID #60 tabs 02/07/24 04/05/24 Rx temazepam 15 mg capsule 15 mg PO QHS #30 caps 02/20/24 04/05/24 Rx Exam Narrative Exam Narrative: PHYSICAL EXAM GENERAL APPEARANCE: Alert, healthy appearance, oriented, x 3,? in no acute distress HYDRATION: Well hydrated HEAD, EYES, EARS, NECK, THROAT: Head is normocephalic, pupils equal, round, reactive to light and accommodation, ocular movement intact, sclera clear and no jaundice. ?Dentition intact. LUNGS: normal respiration/normal chest excursion. ?Clear to auscultation bilaterally. ?No wheeze. ?HEART: Regular rate and rhythm. no murmurs ABDOMEN: soft and non-tender to palpation.? Normal bowel sounds.? No hernias.? Time Spent Time spent with Patient: <40 minutes Time was spent: preparing to see the patient(eg.review tests), obtaining and/or reviewing separately otained hiistory, ordering medications,tests, procedures, referring, communicating with other health care center manager, indepentently interpreting results, counseling the patient, care coordination and other
--- NOTE | 2024-04-04 21:51 | PDOC.DSDIS_ITS ---
Date of service: 04/05/24 Time of Service: 09:58 Discharge Plan Disposition Patient Disposition: Home Condition: Good Discharge Details Reason For Visit: stomach and colon scope Attending Provider: Suellen Jordan Primary Care Provider: Silvina Dodd Home Meds and New Rx's Prescriptions: Continued melatonin 3 mg capsule 3 mg PO HS PRN multivitamin [Daily Multi-Vitamin] Tablet 1 tab PO DAILY sertraline [Zoloft] 50 mg tablet 50 mg PO DAILY acetaminophen 650 mg tablet extended release 650 mg PO Q12H cranberry extract 250 mg capsule 250 mg PO DAILY Rx Instructions: administer with a meal lutein 20 mg capsule 20 mg PO DAILY Rx Instructions: give with meal/snack diphenoxylate-atropine [Lomotil] 2.5-0.025 mg tablet 2 tab PO TID PRN (Reason: diarrhea) Qty: 180 3RF Keytruda 25 mg/mL solution 200 mg IV Q3W Rx Instructions: administer over 30 mins cyclosporine [Restasis] 0.05 % dropperette 1 drp ophthalmic (eye) Q12H Qty: 60 3RF famotidine [Pepcid] 20 mg tablet 20 mg PO BID Qty: 60 12RF (DME) pen needle, diabetic [BD Ultra-Fine Micro Pen Needle] 32 gauge x 1/4 needle See Rx Instructions .Route Qty: 100 3RF Rx Instructions: Use with insulin pen once daily Creon 24,000-76,000 -120,000 unit capsule,delayed release(DR/EC) 3 cap PO .every meal Patient Comments: 3 pills with each meal, and 2 pills with each snack. Eliquis 2.5 mg tablet 2.5 mg PO BID Qty: 180 3RF levothyroxine 25 mcg capsule 25 mcg PO DAILY cholecalciferol (vitamin D3) 50 mcg/drop (2, 000 unit/drop) drops 50 mcg PO DAILY (DME) blood-glucose meter [Accu-Chek Guide Glucose Meter] Misc See Rx Instructions .Route Qty: 1 0RF Rx Instructions: As directed, test blood sugar 4 times daily (DME) Accu-Chek Guide test strips Strip See Rx Instructions .Route Qty: 100 3RF Rx Instructions: As directed, test blood sugar 3 times daily insulin glargine-yfgn [Semglee(insulin glarg-yfgn)Pen] 100 unit/mL (3 mL) insulin pen 15 unit subcut DAILY Qty: 15 3RF temazepam 15 mg capsule 15 mg PO QHS Qty: 30 3RF Slow-Mag 71.5 mg tablet,delayed release (DR/EC) 71.5 mg PO DAILY Qty: 30 0RF Discharge Instructions Additional Instructions: [facility] Colonoscopy Post- Op Instructions Instructions for Everyone who is given Anesthesia: For your safety, please do the following for the next twenty-four (24) hours: *Do Not operate a motor vehicle (car, truck, motorcycle, etc.) *Do Not drink alcoholic beverages or use any recreational drugs for the first 24 hours or while taking pain medications. The medications in your body may have a reaction that can be dangerous. *Do Not make any important decisions or sign any important papers. Findings: Severe diverticula. no polyps are signs of cancer Follow up: Follow-up in 10 days for suture removal Resume Eliquis on Monday -Lack of ileocecal valve also plays a role in chronic diarrhea. I would start fiber supplement daily, 1 dose. You can go up to 2 doses twice a day. 1. No lifting over 20 pounds or strenuous activity for the first 24 hours after your procedure. After 24 hours there are no restrictions on your activity but you may feel fatigued for a few days. 2. After you arrive home you may have a light meal and return to your normal diet as you can tolerate it without feeling sick to your stomach. 3. You may have a bloated, gaseous feeling in your belly (abdomen) after a colonoscopy. Passing gas and belching will help. Walking or lying down on your left side with your knees flexed may relieve the discomfort. Call the office at [phone] (Office) or [phone] (Hospital) right away if you notice any of the following: a.Vomiting of blood or ?coffee ground stools?. b.Rectal bleeding 1Tbsp, blood clots or continuous bleeding. c.Severe belly (abdominal) pain. d.A hard distended belly (abdomen) and an inability to pass gas. 4. Please don?t expect to have a normal BM (bowel movement) for 2-3 days after your procedure. 5. If there are questions regarding the findings of your procedure, please contact your doctor 6. If you are unable to contact your doctor with a problem, contact the hospital at [phone]. 7. Continue all your regular medications unless directed otherwise. I understand the above instructions and have no questions. Signature of Patient or Adult Escort Name of Responsible Adult Escort Signature of Nurse Date/Time Stand Alone Forms: Anesthesia Discharge Inst., Bonnie Morales ([facility]) Referrals: Suellen Jordan DO [OSTEOPATHIC DOCTOR] - 04/15/24 9:00 am (For suture removal. Appointment is with the RN ) Activity:: see above Diet:: see above Discharge Orders Discharge Orders: Discharge Order (Routine); Ordered 04/05/24 Ordered By: Suellen Jordan DS: Diagnosis Discharge Diagnosis (1) Exocrine pancreatic insufficiency: Status: Acute (2) Diabetes mellitus type 2, controlled: Status: Acute (3) Weight loss, unintentional: Status: Acute (4) GERD (gastroesophageal reflux disease): Status: Chronic (5) Metastatic colon cancer to liver: Status: Acute Asessment and Plan: The patient is seen and examined after their colonoscopy.? The patient has been able to pass gas.? They are not having abdominal pain.? They have been able to tolerate liquids and a snack.? They do not have any nausea or vomiting.? They are not having any chest pain or shortness of breath.??? They are not having any rectal bleeding. Their vital signs have been stable-see nursing notes. We discussed findings during their colonoscopy, and any biopsies that were done /polyps that were removed. The patient will be sent a letter with any biopsy results, and when to repeat the colonoscopy.-see discharge instructions. Patient was given explicit instructions to follow-up regarding colonoscopy-refer to discharge instructions.? We reviewed resumption of medications. Patient verbalized understanding and discharged in stable and satisfactory condition- See nursing notes. (6) Cerebral infarction: (7) Pulmonary embolism:
--- NOTE | 2024-04-04 21:54 | COLE_ITS ---
Date of service: 04/05/24 Time of Service: 08:57 Colonoscopy Report Date of procedure: 04/05/24 Pre-op diagnosis general: CRC cancer Post-op diagnosis procedure note: other (Anal stenosis, severe aranda diverticula) Surgeon: Suellen Jordan Anesthesia Type: General:No Airway Estimated blood loss (mL): 0 Pathology: none sent Complications: None Disposition: same day Prep: Miralax/Dulcolax Retraction Time: n/a Procedure Description: After informed consent was obtained, explaining risks of the procedure, including but not limits to: bleeding, infections, complications of anesthesia, perforations (which may require antibiotics and /or surgery and stay in the hospital), and abdominal pain/cramping. The patient was taken to the procedure room and placed in a left decubitous position. Monitors were applied and a time out was done. The patients name, date of , procedure, allergies to medications and metal in their body was reviewed. The patient was then sedated. Once sedated and comfortable a rectal exam was done. External exam shows mild to moderate anal stenosis internal exam revealed a normal sphincter tone and no palpable masses. The previously lubricated Olympus scope was then introduced (see RN notes for scope number) and retrofelexed. No internal hemorrhoids were identified. The scope was then advanced to the anastomosis. She does have severe diverticular disease that carries all the way over to the anastomosis. The anastomosis is widely patent. There is no stenosis. There is no signs of any tumor recurrence. Polyps: None diverticula: pt had a severe amount of large mouthed diverticula do carry all the way over to the anastomosis. There were no signs of active bleeding or infection. The mucosa is pink and healthy w/ a normal vascular pattern. The scope was removed, and the patient was woken up and taken back to Same day surgery in stable condition. The patient tolerated the procedure well and there were no immediate complications. Follow up: The patient should follow up in 2 years years, provided she is still healthy for anesthesia, or sooner if they develop changes in bowel habits or other new gastrointestinal complaints. [place] Bowel Prep [place] Bowel Prep Right Colon: 3 Left Colon: 3 Transverse Colon: 3 Total Score: 9
--- NOTE | 2024-04-04 21:54 | W.PM.ENDDOP ---
Date of service: 04/05/24 Time of Service: 09:02 Endoscopy Report DATE OF PROCEDURE: 04/05/24 PRE-OP DIAGNOSIS: gerd and dysphagia POST-OP DIAGNOSIS: same SURGEON: Suellen Jordan ANESTHESIA TYPE: General:No Airway ESTIMATED BLOOD LOSS: 1 PATHOLOGY: other COMPLICATIONS: None DISPOSITION: same day PREP: Miralax/Dulcolax PROCEDURE DESCRIPTION: Informed consent was obtained from the pt; explaining the benefits and Risks: bleeding, infections, perforations {which could require surgery or antibiotics and prolonged hospital stay}, or ostomy, and complications of anaesthesia, jennifer aspiration). The patient was take to the procedure room and placed in a supine position. Monitors were applied and a time out was done. The patients name, date of , procedure type, allergies to medications and metal in their body was reviewed. A bite block was placed and the patient was sedated. Once sedated and comfortable an Olympus gastroscope (see RN notes for scope #) was advanced through the oropharynx which was grossly normal, and passed into the esophagus. The proximal and mid-esophagus were normal. The distal esophagus does not show any: dilation/strictures/varices/erosions or ulcers/bleeding noted. The scope was advanced into the stomach and through the pylorus into the proximal jejunum. A bx is taken for celiac Dx . The duodenum was noted to be normal. Biopsies were done of the duodenal bulb.. The scope was retracted back into the stomach and biopsies were taken of the antrum. There were no gastritis/gastropathy/ ulcers/masses noted. The scope was retroflexed. The cardia and fundus were noted to be normal. There is no hiatal hernia noted. The scope was retracted back into the esophagus and biopsies were done of the GE junction (in all 4 quadrants) and distal esophagus (2cm above the GE junction) to rule out Samuels's. All specimens are retrieved and no bleeding was noted. The Z line was regular. The GE junction was at 38 cm. The scope was removed and the patient was woken up and taken back to [facility] in stable condition.
[2024-04-05 06:38] VITALS: BP 141/66; PULSE 60; RESP 16; TEMP 36.7; O2SAT 95
[2024-04-05] MEDS: Normal Saline Flush 10 ML SYR IV (06:54)
--- NOTE | 2024-04-05 07:09 | W.ANESPRE ---
General Info Date of Service Date Performed: 04/05/24 Height: 5 ft 4 in Weight: 69.6 kg Body Mass Index (BMI): 26.3 Surgical Procedure: Operation Date: 04/05/24 07:35 Proposed Procedure Side Surgeon p Colonoscopy/Gastroscopy Suellen Jordan, DO Meds Allergies and Home Medications Allergies Allergy/AdvReac Type Severity Reaction Status Date / Time empagliflozin (From AdvReac Severe Diarrhea Verified 04/05/24 06:29 Jardiance) atorvastatin (From Lipitor) AdvReac Intermediate leg cramps Verified 04/05/24 06:29 omeprazole (From Prilosec) AdvReac Intermediate Diarrhea Verified 04/05/24 06:29 pantoprazole (From Protonix) AdvReac Intermediate Diarrhea Verified 04/05/24 06:29 metformin AdvReac Intermediate Diarrhea Uncoded 04/05/24 06:29 doxycycline AdvReac c diff Uncoded 04/05/24 06:29 Home Medication ?Medication ?Instructions ?Recorded cholecalciferol (vitamin D3) 50 50 mcg PO DAILY 01/30/23 mcg/drop (2,000 unit/drop) oral drops acetaminophen 650 mg 650 mg PO Q12H 01/31/23 tablet,extended release cranberry extract 250 mg capsule 250 mg PO DAILY 01/31/23 diphenoxylate-atropine 2.5 2 tab PO TID PRN diarrhea #180 tabs 01/31/23 mg-0.025 mg tablet (Lomotil) lutein 20 mg capsule 20 mg PO DAILY 01/31/23 melatonin 3 mg capsule 3 mg PO HS PRN 01/31/23 multivitamin (Daily Multi-Vitamin 1 tab PO DAILY 01/31/23 tablet) sertraline 50 mg tablet (Zoloft) 50 mg PO DAILY 01/31/23 pembrolizumab 25 mg/mL intravenous 200 mg (8 mL) IV Q3W 03/06/23 solution (Keytruda) qrtciz-thaeeuxz-olsrfco 3 cap PO .every meal 04/03/23 24,000-76,000-120,000 unit capsule,delayed rel (Creon) apixaban 2.5 mg tablet (Eliquis) 2.5 mg PO BID #180 tabs 05/08/23 blood-glucose meter (Accu-Chek #1 ea 06/14/23 Guide Glucose Meter) cyclosporine 0.05 % eye drops in a 1 drp ophthalmic (eye) Q12H #60 ea 08/10/23 dropperette (Restasis) magnesium chloride 71.5 mg 71.5 mg PO DAILY #30 tabs 08/15/23 (magnesium chloride) tablet,delayed release (Slow-Mag) pen needle, diabetic 32 gauge x #100 ea 08/22/23 1/ (BD Ultra-Fine Micro Pen Needle) blood sugar diagnostic (Accu-Chek #100 ea 12/06/23 Guide test strips) insulin glargine-yfgn 100 unit/mL 15 unit (0.15 mL) subcut DAILY #15 12/12/23 (3 mL) subcutaneous pen (Semglee mL (insulin glargine-yfgn) Pen) levothyroxine 25 mcg capsule 25 mcg PO DAILY 01/23/24 famotidine 20 mg tablet (Pepcid) 20 mg PO BID #60 tabs 02/07/24 temazepam 15 mg capsule 15 mg PO QHS #30 caps 02/20/24 Current Visit Medications: Current Medications Generic Name Dose Route Start Last Admin Trade Name Freq PRN Reason Stop Dose Admin Hyoscyamine Sulfate 0.125 mg 04/05/24 04:55 Hyoscyamine 0.125 Mg Sl/Oral/Chew SL 05/05/24 04:54 DIRECTED PRN Ringer's Solution 1,000 mls @ 80 mls/hr 04/05/24 06:00 IV 04/05/24 23:59 INFUSION GERRI Ringer's Solution 500 mls @ 80 mls/hr 04/05/24 06:00 IV 04/05/24 23:59 INFUSION GERRI IV Miscellaneous Supplies 1 each 04/05/24 06:00 Iv Access IV 04/05/24 23:59 DIRECTED GERRI Ondansetron HCl 4 mg 04/05/24 04:55 Ondansetron 4 Mg/2 Ml Vial IVP 05/05/24 04:54 Q4H PRN PRN Nausea / Vomiting Sodium Chloride 0 ml 04/05/24 06:00 04/05/24 06:54 Normal Saline Flush 10 Ml Syr IV 04/05/24 23:59 10 ml PRN PRN Administration Sodium Chloride 0 ml 04/05/24 06:00 Normal Saline 10 Ml Vial IJ 04/05/24 23:59 DIRECTED PRN Sterile Water 0 ml 04/05/24 06:00 Water,Injection,Sterile 10 Ml Vial IJ 04/05/24 23:59 DIRECTED PRN PFSH Active Problems Active Problems: Problem Status Onset Code 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 Metastatic colon cancer to liver Acute C18.9, C78.7 Fracture of fifth metatarsal bone of left foot Acute S92.352A Fracture of fourth metatarsal bone of left foot Acute S92.342A Foot fracture, left Acute S92.902A Syncope Chronic R55 Atrial flutter Acute I48.92 Pancreas (digestive gland) works poorly Acute K86.89 Weight loss, unintentional Acute R63.4 Abdominal bloating Acute R14.0 Vaginal prolapse Acute N81.10 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 Seborrheic keratoses Acute L82.1 CLL (chronic lymphocytic leukemia) Acute C91.10 Actinic keratosis Acute L57.0 Diabetes mellitus type 2, controlled Acute E11.9 GERD (gastroesophageal reflux disease) Chronic K21.9 Urine incontinence Acute R32 SVT (supraventricular tachycardia) Chronic I47.1 Medical History Medical History Colon cancer Current receiving chemo (Keytruda) Pelvic organ prolapse quantification stage 3 cystocele 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 Pulmonary embolism (B) Sadal PE 2017 Squamous cell carcinoma of skin Surgical History Surgical History History of right hemicolectomy H/O cardiac radiofrequency ablation Spring 2022 of aflutter History of bowel resection (Unknown) History of repair of anterior cruciate ligament of left knee Tobacco Smoking/Tobacco Use Status: Never Passive smoking exposure: Yes Second hand exposure: Yes Alcohol Alcohol Intake: current Alcohol intake frequency: holidays/special occasions only Alcohol type: wine Substance Use Substance use: Never Substance use type: does not use Vital Signs and Lab Results Vital Signs Most Recent Vital Signs in EMR: Most Recent Vital Signs Temp Pulse Resp BP Pulse Ox 36.7 C 60 16 141/66 H 95 04/05/24 06:38 04/05/24 06:38 04/05/24 06:38 04/05/24 06:38 04/05/24 06:38 Point of Care Results Point of Care Results: Finger Stick Blood Glucose 138 04/05/24 06:35 Lab Results Blood Type / Crossmatch: No Data to Display Complete Blood Count: White Blood Count 52.24 10^3/uL (4.4-10.8) H* 03/13/24 10:10 Red Blood Count 4.33 10^6/uL (3.93-5.22) 03/13/24 10:10 Hemoglobin 12.9 g/dL (11.2-15.7) 03/13/24 10:10 Hematocrit 41.4 % (36.0-46.0) 03/13/24 10:10 Platelet Count 151 10^3/uL (130-400) 03/13/24 10:10 Complete Metabolic Panel: Sodium 144 mmol/L (136-145) 03/13/24 10:10 Potassium 4.2 mmol/L (3.5-5.1) 03/13/24 10:10 Chloride 107 mmol/L (98-107) 03/13/24 10:10 Carbon Dioxide 30.1 mmol/L (21.0-32.0) 03/13/24 10:10 BUN 14 mg/dL (7-18) 03/13/24 10:10 Creatinine 0.8 mg/dL (0.55-1.02) 03/13/24 10:10 Est GFR (CKD-EPI 2020) 77.27 (mL/min/1.73m2) 03/13/24 10:10 Calcium 8.7 mg/dL (8.5-10.1) 03/13/24 10:10 Albumin 3.2 g/dL (3.4-5.0) L 03/13/24 10:10 Glucose 184 mg/dL (74-106) H 03/13/24 10:10 Liver Function Panel: Alanine Aminotransferase (ALT/SGPT) 23 U/L (14-59) 03/13/24 10:10 Aspartate Amino Transf (AST/SGOT) 19 U/L (15-37) 03/13/24 10:10 Coagulation Panel: No Data to Display Cardiac Panel: No Data to Display Arterial Blood Gas: No Data to Display Venous Blood Gas: No Data to Display Pancreas Panel: No Data to Display Thyroid Panel: Thyroid Stimulating Hormone (TSH) 2.23 uIU/mL (0.36-3.74) 03/13/24 10:10 Infectious Disease: No Data to Display Blood Cultures: No Data to Display Toxicology Panel: No Data to Display Imaging and Studies Imaging and Studies Study information below may be from another EMR and interpreted by another provider. Please see original notes in EMR for more complete details. EKG Summary: DATE/TIME OF SERVICE: 08/21/23 1251 : 1950 PERFORMING LOCATION: .CARD APPROVED REPORT Exam: Resting ECG Reason for Exam: afib/flutter Patient Location: O HR:73 bpm ECG Measurements Heart Rate 73 AXIS DC [id number] P [id number] QRSd 105 QRS 1 QT 444 T131 QTc 490 Conclusion Atrial flutter...A-rate 294 Echocardiogram Summary: Date of Exam: 08/14/23 Sex: F Admission Date: 08/13/23 : 1950 Age: 73 APPROVED REPORT EXAM: Comprehensive 2D, Doppler, and color-flow Echocardiogram Patient Location: In-Patient Room/Bed: [facility] [employer] Programmer: Conner Shah RDCS (AE) Indications: Syncope, new onset atrial flutter with RVR Conclusion Normal left ventricular wall thickness and chamber size. EF is 55-60%. Wall motion is normal Normal right ventricular size and function Left atrium is normal in size. Right atrium is moderately dilated Trileaflet aortic valve without stenosis or regurgitation Mitral annular calcification, trace mitral regurgitation Mild to moderate tricuspid regurgitation Estimated right ventricular systolic pressure is 30 mmHg Anesthesia Assessment and Plan Anesthesia History Personal History: No History of Anesthesia Complications Family History: No Family History of Anesthesia Complications Exercise Tolerance Exercise Tolerance: Metabolic Equivalents>4 Cardiac & Pulmonary Exam Cardiac Exam: Normal S1/S2 Heart Sounds Pulmonary Exam: Clear Bilateral Breath Sounds Implantable Cardiac Device Does patient have a Pacemaker or an ICD?: No Airway Exam Known Difficult Airway: No Mallampati Class: 2 Mouth Opening: Normal (> 3cm) Thyromental Distance: Less than 3 cm Neck Range of Motion: Full ROM Neck Circumference: Normal Teeth Condition: Normal Dentition ASA Classification ASA Score: ASA 3 Emergency Case?: No NPO Status NPO Status: NPO Clears >2 hours, Solids >8 hours Anesthesia Plan Resuscitation Status: Full Code Anesthesia Technique: General Anesthesia Airway Planned: Natural Airway Monitors Used: Standard Monitors
[2024-04-05 07:11] VITALS: BMI 26.3
[2024-04-05] MEDS: Lactated Ringers 500 ML 30 ML IV (07:31)
--- NOTE | 2024-04-05 07:59 | STOM_PTH ---
PATIENT: Carol Keller LOC: [facility] U#:[id number] AGE/SX: 74/F ROOM: RE04/05/[address]: Suellen Jordan : 1950 BED: DIS: 04/05/2024 SPEC #: [id number] RECD: 04/05/24 12:49 STATUS: FRANCOIS REQ #: [id number] RAÚL: 04/05/24 07:[address]: Suellen Jordan DEPT: Surgical Specimen RECD BY: Leeanne Burch ENTERED: 04/05/24 12:56 SP TYPE: STOMACH OTHR DR: Silvina Dodd, COPING MACHINE OPERATOR Tissues: 1 - BIOPSY BOWEL 2 - BIOPSY BOWEL 3 - STOMACH BIOPSY 4 - STOMACH BIOPSY 5 - ESOPHAGUS BIOPSY 6 - ESOPHAGUS BIOPSY 7 - SKIN CYST/TAG/DEBRIDEMENT Procedures: GROSS AND MICRO LEVEL 4 SKIN LEVEL 4 SPECIAL STAIN 1 Comments: [id number]
[2024-04-05] MEDS: Lidocaine 1% Pres-Free 30 ML VIAL (08:25)
[2024-04-05 08:33] VITALS: BP 120/64; PULSE 55; RESP 16; TEMP 36.1; O2SAT 96
--- NOTE | 2024-04-05 09:03 | ROE_ITS ---
Date of service: 04/05/24 Time of Service: 09:03 Operative Note Operative Note DATE OF PROCEDURE: 04/05/24 PRE-OP DIAGNOSIS: Skin lesion/possible tick POST-OP DIAGNOSIS: same PROCEDURE: Excision of soft tissue lesion SURGEON: Suellen Jordan ANESTHESIA TYPE: Local By Surgeon Refer to Anesthesia Record ESTIMATED BLOOD LOSS: 1 PATHOLOGY: other COMPLICATIONS: None Patient was transported to: same day Patient's condition: stable Procedure Description: The area in question had been marked by the patient prior to coming back to the operative room suite. It is flat 0.5 cm in size with mild brownish discoloration. There is no signs of active infection. Informed consent was obtained explaining risks and benefits of the procedure including but not limited to: Bleeding, infection, scarring, need for removal of more tissue, poor cosmesis, and reaction to medication. The areas prepped and draped in the usual sterile fashion using a ChloraPrep scrub solution. Is infiltrated with 5 cc of 1% lidocaine. The lesion is excised out down to the fat it is 0.9 cm in size. Is closed with 2 stitches of 3-0 nylon. Sterile compression dressing is ap plied. The specimen is sent to pathology. Patient is a procedural complication.
[2024-04-05 09:07] VITALS: BP 151/70; PULSE 51; RESP 16; TEMP 36.3; O2SAT 98
--- NOTE | 2024-04-05 09:47 | W.ANESPOSTOP ---
Postoperative Evaluation Date, Time and Location Date Performed: 04/05/24 Time Performed: 09:40 Patient Location: Day Surgery Unit Vital Signs Most Recent Imported Vital Signs: Most Recent Vital Signs Temp Pulse Resp BP Pulse Ox 36.3 C L 51 L 16 151/70 H 98 04/05/24 09:07 04/05/24 09:07 04/05/24 09:07 04/05/24 09:07 04/05/24 09:07 Pain Score Most Recent Pain Score: Most Recent Pain Score Pain Level 0 04/05/24 09:07 Assessment Mental Status: Awake (Alert & Oriented to Patient Baseline) Airway and Respiratory Function: Patent airway with normal (patient baseline) respiratory exam Cardiovascular Function: Hemodynamically Stable Hydration Status: Adequately Hydrated Nausea & Vomiting: No Nausea or Vomiting Pain: Pt. Denies Any Pain Peripheral Nerve Block: Patient did not receive a nerve block
== END 2024-04-05 09:55 | disposition home or self-care (01) ==
LOC: SUR 06:16
PROVIDERS: PCP Nurse Practitioner Family; Visit Provider Surgery
PROC: (CPT 43239; principal; 2024-04-05 07:30)
PROC: (CPT 43239; 2024-04-05 07:30)
DX: Z12.11 Encounter for screening for malignant neoplasm of colon (principal); E11.9 Type 2 diabetes mellitus without complications; K20.90 Esophagitis, unspecified without bleeding; Z18.39 Other retained organic fragments; R13.10 Dysphagia, unspecified; K57.30 Diverticulosis of large intestine without perforation or abscess without bleeding; C78.7 Secondary malignant neoplasm of liver and intrahepatic bile duct; K29.50 Unspecified chronic gastritis without bleeding
CPT/HCPCS: 43239; G0105; 88305; 88304; 88312; J2003; J2704

== ENCOUNTER 2024-04-19 01:11 | Outpatient (RCR) | payer MEDICARE, SELFPAY ==
[2024-04-19 10:50] LABS: Basophils % 0.4 %; Eosinophils % 0.5 %; HGB 13.4 g/dL (11.2-15.7); Immature Grans % 0.2 %; MCH 29.5 pg (27.0-33.0); MCHC 31.2 % (32.0-36.0); MCV 95 fL (80-95); Neutrophils % 11.5 %; Platelet Count 154 10^3/uL (130-400); RBC 4.55 10^6/uL (3.93-5.22); RDW 12.9 % (11.7-14.6); RDW-SD 44.3 fL
[2024-04-19 11:02] LABS: Absolute Basophil Count 0.21 10^3/uL (0.0-0.2); Absolute Eosinophil Count 0.26 10^3/uL (0.0-0.7); Absolute Lymphocyte Count 44.08 10^3/uL (1.2-3.4); Absolute Monocyte Count 1.03 10^3/uL (0.1-0.8); Absolute Neutrophil Count 5.94 10^3/uL (1.2-6.7); Lymphocytes % 85.4 %
[2024-04-19 11:10] LABS: WBC 51.62 10^3/uL (4.4-10.8)
[2024-04-19 11:19] LABS: ALT 24 U/L (14-59); AST 17 U/L (15-37); Albumin 3.5 g/dL (3.4-5.0); Alkaline Phosphatase 85 U/L (46-116); Anion Gap 8.7 mmol/L (3-11); BUN 16 mg/dL (7-18); Bilirubin, Total 0.47 mg/dL (0.2-1.0); CO2 27.3 mmol/L (21.0-32.0); CREATININE 0.9 mg/dL (0.55-1.02); Calcium 8.3 mg/dL (8.5-10.1); Chloride 108 mmol/L (98-107); Estimated GFR 66.67 (mL/min/1.73m2); Glucose 146 mg/dL (74-106); Sodium 144 mmol/L (136-145); TSH 2.06 uIU/mL (0.36-3.74); Total Protein 6.4 g/dL (6.4-8.2)
[2024-04-19] MEDS: Normal Saline Flush 10 ML SYR IVP (12:27)
[2024-04-19 19:20] LABS: CEA 1.9 ng/mL (See Note)
== END 2024-04-20 23:59 | disposition home or self-care (01) ==
LOC: INF 01:11
PROVIDERS: PCP Nurse Practitioner Family; Visit Provider Internal Medicine Hematology & Oncology
DX: C18.9 Malignant neoplasm of colon, unspecified (principal); E03.9 Hypothyroidism, unspecified; C78.7 Secondary malignant neoplasm of liver and intrahepatic bile duct
CPT/HCPCS: 36415; 36591; 80053; 82378; 84439; 84443; 85025

== ENCOUNTER 2024-06-06 00:36 | Outpatient (RCR) | payer MEDICARE, SELFPAY ==
[2024-06-06] MEDS: Normal Saline Flush 10 ML SYR IVP (13:43)
[2024-06-07 09:49] LABS: Lyme Ab w Rflx to Lyme Confirm Negative (Negative)
[2024-06-09 15:47] LABS: Anaplasma phagocytophilum Negative (Negative); B. miyamotoi PCR Negative (Negative); Babesia divergens/MO-1 Negative (Negative); Babesia duncani Negative (Negative); Babesia microti Negative (Negative); Ehrlichia chaffeensis Negative (Negative); Ehrlichia ewingii/canis Negative (Negative); Ehrlichia muris eauclairensis Negative (Negative)
== END 2024-06-21 23:59 | disposition home or self-care (01) ==
LOC: INF 00:36
PROVIDERS: Nurse Practitioner Family; PCP Nurse Practitioner Family; Visit Provider Internal Medicine Hematology & Oncology
DX: C18.9 Malignant neoplasm of colon, unspecified (principal); C78.7 Secondary malignant neoplasm of liver and intrahepatic bile duct; E03.9 Hypothyroidism, unspecified; Z79.899 Other long term (current) drug therapy
CPT/HCPCS: 36415; 87798; 96523; 86618

== ENCOUNTER 2024-07-19 01:44 | Outpatient (RCR) | payer MEDICARE, SELFPAY ==
[2024-07-19] MEDS: Heparin 500 UNITS/5 ML SYRINGE IV (10:14)
[2024-07-19] MEDS: Normal Saline Flush 10 ML SYR IVP (10:14)
[2024-07-19 10:21] LABS: Abs Immature Grans 0.34 10^3/uL (0.0-0.06); HCT 41.9 % (36.0-46.0); HGB 13.4 g/dL (11.2-15.7); MCH 29.1 pg (27.0-33.0); MCV 91 fL (80-95); MPV 10.8 fL (8.0-11.0); Platelet Count 188 10^3/uL (130-400); RDW 13.1 % (11.7-14.6); RDW-SD 42.9 fL
[2024-07-19 10:28] LABS: WBC 64.59 10^3/uL (4.4-10.8)
[2024-07-19 10:34] LABS: Absolute Neutrophil Count 13.56 10^3/uL (1.2-6.7)
[2024-07-19 10:35] LABS: Absolute Lymphocyte Count 49.09 10^3/uL (1.2-3.4); Absolute Monocyte Count 1.94 10^3/uL (0.1-0.8); Diff Comment Manual Differential; RBC Morphology Normal
[2024-07-19 10:47] LABS: ALT 26 U/L (14-59); AST 14 U/L (15-37); Albumin 3.4 g/dL (3.4-5.0); Alkaline Phosphatase 94 U/L (46-116); Anion Gap 10.2 mmol/L (3-11); BUN 19 mg/dL (7-18); Bilirubin, Total 0.55 mg/dL (0.2-1.0); CO2 29.8 mmol/L (21.0-32.0); CREATININE 0.8 mg/dL (0.55-1.02); Calcium 9.3 mg/dL (8.5-10.1); Chloride 104 mmol/L (98-107); Estimated GFR 76.79 (mL/min/1.73m2); Glucose 218 mg/dL (74-106); Potassium 4.3 mmol/L (3.5-5.1); Sodium 144 mmol/L (136-145); TSH 1.92 uIU/mL (0.36-3.74); Total Protein 6.6 g/dL (6.4-8.2)
[2024-07-22 08:44] LABS: CEA 1.8 ng/mL (See Note)
== END 2024-07-19 23:59 | disposition home or self-care (01) ==
LOC: INF 01:44
PROVIDERS: PCP Nurse Practitioner Family; Visit Provider Internal Medicine Hematology & Oncology
DX: C18.9 Malignant neoplasm of colon, unspecified (principal); C78.7 Secondary malignant neoplasm of liver and intrahepatic bile duct; R53.83 Other fatigue
CPT/HCPCS: 36591; 80053; 82378; 84439; 84443; 85025; J1642

== ENCOUNTER → 2024-07-29 09:51 | Outpatient (BNVA) | payer MEDICARE, SELFPAY | PROVIDERS: PCP Nurse Practitioner Family; Visit Provider Registered Nurse | DX: I48.3 Typical atrial flutter (principal) | CPT/HCPCS: 99214 ==

== ENCOUNTER 2024-08-30 00:37 | Outpatient (RCR) | payer MEDICARE, SELFPAY ==
[2024-08-30] MEDS: Normal Saline Flush 10 ML SYR IVP (10:36)
[2024-08-30 10:40] LABS: HCT 42.7 % (36.0-46.0); HGB 13.3 g/dL (11.2-15.7); MCHC 31.1 % (32.0-36.0); MCV 93 fL (80-95); MPV 11.4 fL (8.0-11.0); Platelet Count 160 10^3/uL (130-400); RBC 4.59 10^6/uL (3.93-5.22); RDW 13.2 % (11.7-14.6); RDW-SD 44.3 fL
[2024-08-30 10:55] LABS: Calculated LDL 63 mg/dL (<100); Cholesterol 176 mg/dL (<200); HDL Cholesterol 84 mg/dL (>or=50); Triglyceride 147 mg/dL (<150)
[2024-08-30 10:59] LABS: Absolute Lymphocyte Count 44.12 10^3/uL (1.2-3.4); Absolute Neutrophil Count 4.96 10^3/uL (1.2-6.7)
[2024-08-30 11:00] LABS: Diff Comment Manual Differential; RBC Morphology Normal
[2024-08-30 11:03] LABS: Hemoglobin A1C 7.1 % (<5.7); WBC 49.57 10^3/uL (4.4-10.8)
[2024-08-30] MEDS: Heparin 500 UNITS/5 ML SYRINGE IV (12:49)
== END 2024-09-18 23:59 | disposition home or self-care (01) ==
LOC: INF 00:37
PROVIDERS: PCP Nurse Practitioner Family; Visit Provider Internal Medicine Hematology & Oncology
DX: C18.9 Malignant neoplasm of colon, unspecified (principal); C78.7 Secondary malignant neoplasm of liver and intrahepatic bile duct; E11.9 Type 2 diabetes mellitus without complications; E78.5 Hyperlipidemia, unspecified
CPT/HCPCS: 36591; 80061; 96523; 83036; 85025; J1642

== ENCOUNTER 2024-09-19 10:43 | Outpatient (REF) | payer MEDICARE, SELFPAY | END 2024-09-19 10:44 | disposition home or self-care (01) | LOC: LBN 10:43 | PROVIDERS: PCP Nurse Practitioner Family; Visit Provider Obstetrics & Gynecology | DX: R30.0 Dysuria (principal) | CPT/HCPCS: 87077; 87086; 87186 ==

== ENCOUNTER 2024-10-21 03:38 | Outpatient (RCR) | payer MEDICARE, SELFPAY ==
[2024-10-21] MEDS: Heparin 500 UNITS/5 ML SYRINGE IV (13:14)
[2024-10-21] MEDS: Normal Saline Flush 10 ML SYR IVP (13:14)
[2024-10-21 13:37] LABS: Abs Immature Grans 0.09 10^3/uL (0.0-0.06); Absolute Lymphocyte Count 36.11 10^3/uL (1.2-3.4); Basophils % 0.4 %; Eosinophils % 0.9 %; HCT 42.6 % (36.0-46.0); HGB 13.3 g/dL (11.2-15.7); Immature Grans % 0.2 %; MCH 28.6 pg (27.0-33.0); MCHC 31.2 % (32.0-36.0); MCV 92 fL (80-95); MPV 11.3 fL (8.0-11.0); Monocytes % 2.1 %; Neutrophils % 12.7 %; Platelet Count 130 10^3/uL (130-400); RBC 4.65 10^6/uL (3.93-5.22); RDW 14.3 % (11.7-14.6); RDW-SD 47.8 fL
[2024-10-21 13:38] LABS: Absolute Basophil Count 0.17 10^3/uL (0.0-0.2); Absolute Eosinophil Count 0.39 10^3/uL (0.0-0.7); Absolute Monocyte Count 0.91 10^3/uL (0.1-0.8); Absolute Neutrophil Count 5.48 10^3/uL (1.2-6.7)
[2024-10-21 13:49] LABS: Diff Comment Diff Reviewed; Lymphocytes % 83.7 %; RBC Morphology Normal
[2024-10-21 13:58] LABS: ALT 22 U/L (14-59); AST 20 U/L (15-37); Albumin 3.6 g/dL (3.4-5.0); Alkaline Phosphatase 74 U/L (46-116); Anion Gap 6.3 mmol/L (3-11); BUN 21 mg/dL (7-18); Bilirubin, Total 0.5 mg/dL (0.2-1.0); CO2 30.7 mmol/L (21.0-32.0); CREATININE 0.8 mg/dL (0.55-1.02); Calcium 8.7 mg/dL (8.5-10.1); Chloride 104 mmol/L (98-107); Estimated GFR 76.79 (mL/min/1.73m2); Glucose 158 mg/dL (74-106); Potassium 4.2 mmol/L (3.5-5.1); Sodium 141 mmol/L (136-145); TSH 1.92 uIU/mL (0.36-3.74); Total Protein 6.7 g/dL (6.4-8.2)
[2024-10-21 14:07] LABS: WBC 43.14 10^3/uL (4.4-10.8)
[2024-10-22 02:11] LABS: CEA 1.6 ng/mL (See Note)
== END 2024-11-18 23:59 | disposition home or self-care (01) ==
LOC: INF 03:38
PROVIDERS: PCP Nurse Practitioner Family; Visit Provider Internal Medicine Hematology & Oncology
DX: C91.10 Chronic lymphocytic leukemia of B-cell type not having achieved remission (principal); E03.9 Hypothyroidism, unspecified; C18.9 Malignant neoplasm of colon, unspecified; C78.7 Secondary malignant neoplasm of liver and intrahepatic bile duct; Z45.2 Encounter for adjustment and management of vascular access device
CPT/HCPCS: 36591; 80053; 82378; 84443; 85025; J1642

== ENCOUNTER 2024-12-05 01:17 | Outpatient (RCR) | payer MEDICARE, SELFPAY ==
[2024-12-05] MEDS: Heparin 500 UNITS/5 ML SYRINGE IV (12:30)
[2024-12-05] MEDS: Normal Saline Flush 10 ML SYR IVP (12:30)
[2024-12-05 13:41] LABS: Abs Immature Grans 0.09 10^3/uL (0.0-0.06); HCT 41.9 % (36.0-46.0); HGB 13.1 g/dL (11.2-15.7); Immature Grans % 0.2 %; MCH 28.9 pg (27.0-33.0); MCHC 31.3 % (32.0-36.0); MCV 92 fL (80-95); MPV 11.8 fL (8.0-11.0); Platelet Count 138 10^3/uL (130-400); RBC 4.54 10^6/uL (3.93-5.22); RDW 13.9 % (11.7-14.6); RDW-SD 47.3 fL
[2024-12-05 14:11] LABS: RBC Morphology Normal
[2024-12-05 15:14] LABS: WBC 46.05 10^3/uL (4.4-10.8)
== END 2024-12-19 23:59 | disposition home or self-care (01) ==
LOC: INF 01:17
PROVIDERS: Nurse Practitioner Family; PCP Nurse Practitioner Family; Visit Provider Internal Medicine Hematology & Oncology
DX: C18.9 Malignant neoplasm of colon, unspecified (principal); C78.7 Secondary malignant neoplasm of liver and intrahepatic bile duct; C91.10 Chronic lymphocytic leukemia of B-cell type not having achieved remission; Z45.2 Encounter for adjustment and management of vascular access device
CPT/HCPCS: 36591; 85025; J1642

== ENCOUNTER 2025-01-07 01:51 | Outpatient (RCR) | payer MEDICARE, SELFPAY ==
[2025-01-07] MEDS: Heparin 500 UNITS/5 ML SYRINGE IV (13:05)
[2025-01-07] MEDS: Normal Saline Flush 10 ML SYR IVP (13:05)
[2025-01-07 13:20] LABS: Abs Immature Grans 0.11 10^3/uL (0.0-0.06); HCT 41.6 % (36.0-46.0); HGB 13.1 g/dL (11.2-15.7); Immature Grans % 0.2 %; MCH 29.2 pg (27.0-33.0); MCHC 31.5 % (32.0-36.0); MCV 93 fL (80-95); MPV 11.3 fL (8.0-11.0); Platelet Count 150 10^3/uL (130-400); RBC 4.48 10^6/uL (3.93-5.22); RDW 13.7 % (11.7-14.6); RDW-SD 46.7 fL
[2025-01-07 13:38] LABS: ALT 29 U/L (14-59); AST 22 U/L (15-37); Albumin 3.6 g/dL (3.4-5.0); Alkaline Phosphatase 69 U/L (46-116); Anion Gap 9.3 mmol/L (3-11); BUN 17 mg/dL (7-18); Bilirubin, Total 0.5 mg/dL (0.2-1.0); CO2 27.7 mmol/L (21.0-32.0); Calcium 8.3 mg/dL (8.5-10.1); Chloride 104 mmol/L (98-107); Estimated GFR 90.14 (mL/min/1.73m2); Glucose 170 mg/dL (74-106); Potassium 4.2 mmol/L (3.5-5.1); Sodium 141 mmol/L (136-145); TSH 1.90 uIU/mL (0.36-3.74); Total Protein 6.5 g/dL (6.4-8.2)
[2025-01-07 13:43] LABS: WBC 49.11 10^3/uL (4.4-10.8)
[2025-01-07 13:49] LABS: RBC Morphology Normal
[2025-01-07 22:52] LABS: CEA 1.5 ng/mL (See Note)
== END 2025-01-19 23:59 | disposition home or self-care (01) ==
LOC: INF 01:51
PROVIDERS: Nurse Practitioner Family; PCP Nurse Practitioner Family; Visit Provider Internal Medicine Hematology & Oncology
DX: C91.10 Chronic lymphocytic leukemia of B-cell type not having achieved remission (principal); C18.9 Malignant neoplasm of colon, unspecified; E03.9 Hypothyroidism, unspecified; R53.83 Other fatigue; Z45.2 Encounter for adjustment and management of vascular access device
CPT/HCPCS: 36591; 80053; 82378; 84439; 84443; 85025; J1642

== ENCOUNTER 2025-02-03 10:21 | Outpatient (CLI) | payer MEDICARE, SELFPAY ==
--- NOTE | 2025-02-03 10:30 | RT.EKG_ITS ---
APPROVED REPORT Exam: Resting ECG Reason for Exam: afib Patient Location: O HR:60 bpm ECG Measurements Heart Rate 60 AXIS MT 145 P 52 QRSd 99 QRS -44 QT 429 T 52 QTc 429 Conclusion Sinus rhythm...normal P axis, V-rate 50- 99 Left axis
== END 2025-02-03 10:22 | disposition home or self-care (01) ==
LOC: DI.CARD 10:33
PROVIDERS: PCP Nurse Practitioner Family; Visit Provider Registered Nurse
DX: I48.3 Typical atrial flutter (principal)
CPT/HCPCS: 93010

== ENCOUNTER → 2025-02-03 10:21 | Outpatient (BNVA) | payer MEDICARE, SELFPAY | PROVIDERS: PCP Nurse Practitioner Family; Referring Provider Nurse Practitioner Family; Visit Provider Registered Nurse | DX: I48.3 Typical atrial flutter (principal); I47.10 Supraventricular tachycardia, unspecified | CPT/HCPCS: 99214 ==

== ENCOUNTER 2025-02-27 00:42 | Outpatient (RCR) | payer MEDICARE, SELFPAY ==
[2025-02-27] MEDS: Normal Saline Flush 10 ML SYR IVP (14:31)
[2025-02-27] MEDS: Heparin 500 UNITS/5 ML SYRINGE IV (14:31)
[2025-02-27 15:25] LABS: Abs Immature Grans 0.11 10^3/uL (0.0-0.06); HCT 40.2 % (36.0-46.0); HGB 12.8 g/dL (11.2-15.7); Immature Grans % 0.2 %; MCH 29.8 pg (27.0-33.0); MCHC 31.8 % (32.0-36.0); MCV 94 fL (80-95); MPV 11.9 fL (8.0-11.0); Platelet Count 173 10^3/uL (130-400); RBC 4.30 10^6/uL (3.93-5.22); RDW 13.5 % (11.7-14.6); RDW-SD 45.7 fL
[2025-02-27 16:01] LABS: RBC Morphology Normal
[2025-02-27 16:07] LABS: WBC 53.38 10^3/uL (4.4-10.8)
== END 2025-03-21 23:59 | disposition home or self-care (01) ==
LOC: INF 00:42
PROVIDERS: PCP Nurse Practitioner Family; Visit Provider Internal Medicine Hematology & Oncology
DX: C18.9 Malignant neoplasm of colon, unspecified (principal); Z45.2 Encounter for adjustment and management of vascular access device
CPT/HCPCS: 36591; 85025; J1642

== ENCOUNTER 2025-04-04 10:55 | Outpatient (CLI) | payer MEDICARE, SELFPAY ==
--- NOTE | 2025-04-04 11:00 | RT.EKG_ITS ---
APPROVED REPORT Exam: Resting ECG Reason for Exam: follow up needed Patient Location: O HR:117 bpm ECG Measurements Heart Rate 117 AXIS [place] [id number] P [id number] QRSd 127 QRS -27 QT 344 T 252 QTc 480 Conclusion Atrial flutter...A-rate 288 IVCD, consider atypical RBBB...QRSd>120mS, terminal axis(90,270)
== END 2025-04-04 10:56 | disposition home or self-care (01) ==
LOC: DI.CARD 11:00
PROVIDERS: PCP Nurse Practitioner Family; Referring Provider Nurse Practitioner Family; Visit Provider Internal Medicine Cardiovascular Disease
DX: I48.3 Typical atrial flutter (principal); I45.10 Unspecified right bundle-branch block
CPT/HCPCS: 93010

== ENCOUNTER → 2025-04-04 10:55 | Outpatient (BNVA) | payer MEDICARE, SELFPAY | PROVIDERS: PCP Nurse Practitioner Family; Referring Provider Nurse Practitioner Family; Visit Provider Internal Medicine Cardiovascular Disease | DX: I48.3 Typical atrial flutter (principal); I47.10 Supraventricular tachycardia, unspecified; Z79.01 Long term (current) use of anticoagulants | CPT/HCPCS: 99214; 93005 ==

== ENCOUNTER 2025-04-10 14:48 | Outpatient (RCR) | payer MEDICARE, SELFPAY ==
[2025-04-10] MEDS: Normal Saline Flush 10 ML SYR IVP (15:02)
[2025-04-10] MEDS: Heparin 500 UNITS/5 ML SYRINGE IV (15:03)
== END 2025-04-20 23:59 | disposition home or self-care (01) ==
LOC: INF 14:48
PROVIDERS: PCP Nurse Practitioner Family; Visit Provider Internal Medicine Hematology & Oncology
DX: Z45.2 Encounter for adjustment and management of vascular access device (principal)
CPT/HCPCS: 96523; J1642

== ENCOUNTER → 2025-05-01 10:55 | Outpatient (BNVA) | payer MEDICARE, SELFPAY | PROVIDERS: PCP Nurse Practitioner Family; Referring Provider Nurse Practitioner Family; Visit Provider Internal Medicine Cardiovascular Disease | DX: I48.3 Typical atrial flutter (principal) | CPT/HCPCS: 99213 ==

== ENCOUNTER 2025-05-20 00:16 | Outpatient (RCR) | payer MEDICARE, SELFPAY ==
[2025-05-20 14:05] LABS: Abs Immature Grans 0.12 10^3/uL (0.0-0.06); HCT 42.9 % (36.0-46.0); HGB 13.3 g/dL (11.2-15.7); Immature Grans % 0.2 %; MCH 28.6 pg (27.0-33.0); MCHC 31.0 % (32.0-36.0); MCV 92 fL (80-95); MPV 11.0 fL (8.0-11.0); Platelet Count 179 10^3/uL (130-400); RBC 4.65 10^6/uL (3.93-5.22); RDW 13.3 % (11.7-14.6); RDW-SD 45.1 fL
[2025-05-20 14:20] LABS: ALT 19 U/L (10-49); AST 20 U/L (<34); Albumin 4.1 g/dL (3.2-5.0); Alkaline Phosphatase 74 U/L (46-116); Anion Gap 7.5 mmol/L (3-11); BUN 18 mg/dL (9-23); Bilirubin, Total 0.6 mg/dL (0.2-1.2); CO2 29.5 mmol/L (20.0-31.0); Calcium 8.8 mg/dL (8.3-10.6); Chloride 106 mmol/L (98-107); Glucose 227 mg/dL (74-106); Potassium 4.0 mmol/L (3.5-5.1); RBC Morphology Normal; Sodium 143 mmol/L (136-145); Total Protein 6.4 g/dL (5.7-8.2)
[2025-05-20 14:24] LABS: WBC 49.37 10^3/uL (4.4-10.8)
[2025-05-20] MEDS: Heparin 500 UNITS/5 ML SYRINGE IV (14:51)
[2025-05-20] MEDS: Normal Saline Flush 10 ML SYR IVP (14:51)
[2025-05-20 23:57] LABS: CEA 1.3 ng/mL (See Note)
== END 2025-05-21 23:59 | disposition home or self-care (01) ==
LOC: INF 00:16
PROVIDERS: PCP Nurse Practitioner Family; Visit Provider Internal Medicine Hematology & Oncology
DX: C18.9 Malignant neoplasm of colon, unspecified (principal); Z45.2 Encounter for adjustment and management of vascular access device
CPT/HCPCS: 36591; 80053; 82378; 85025; J1642